=== PATIENT | female | born 1970 | race Caucasian/White ===

== ENCOUNTER → 2018-03-15 07:45 | Outpatient (CLI) | payer BC, SELFPAY ==
--- NOTE | 2018-03-15 07:47 | BI_ITS ---
MAMMOGRAPHY - BILATERAL SCREENING REASON FOR EXAM: Female, 47 years old. Routine annual screening examination. PERTINENT HISTORY: Grandmother with breast cancer. TECHNIQUE: Digital bilateral breast airam (3D mammographic acquisition) in the CC and MLO projections. 2-D mediolateral oblique (MLO) and craniocaudad (CC) views of both breasts were obtained. CAD: Full Field Digital Mammography with Computer Added Detection was performed. COMPARISON: Comparison is made with prior study dated March 11, 2017. FINDINGS: Breast Composition: There are scattered areas of fibroglandular density. There are no dominant masses or suspicious calcifications. Stable asymmetry of breast tissue where more breast tissue is seen in the retroareolar region of the left breast as compared to the right side. No other significant abnormalities are identified. There has been no significant change since the prior study. BI/SCREENING MAMM (CAD), BILAT IMPRESSION: Stable bilateral screening mammogram. Yearly follow-up mammogram recommended. (A) ASSESSMENT CATEGORY: BIRADS Category 2: Benign. A letter regarding these results will be sent to the patient by the facility within 30 days. Approximately 10% of breast cancers are not detected by mammography. A normal mammogram should not delay biopsy of a clinically suspicious abnormality. [id number] Electronically Signed: Raffaele Galloway MD at 14:33 EST Tel [phone], Service support ,
== END ==
PROVIDERS: Family Provider Internal Medicine; PCP Internal Medicine; Referring Provider Obstetrics & Gynecology; Visit Provider Obstetrics & Gynecology
DX: Z12.31 Encounter for screening mammogram for malignant neoplasm of breast (principal)
CPT/HCPCS: 77063; 77067

== ENCOUNTER 2018-04-14 03:57 | Emergency (ER) | payer OTHER, SELFPAY ==
[2018-04-14 03:57] VITALS: BP 128/78; PULSE 90; RESP 20; TEMP 36.6; O2SAT 97; BMI 33.7
[2018-04-14] MEDS: Ibuprofen 600 MG Tablet PO (04:18)
--- NOTE | 2018-04-14 04:39 | ED.DCSUM_ITS ---
- ER Visit Summary Date of Service: 04/14/18 Chief Complaint: Neck pain History of Present Illness: The patient is a 48 F increasing left-sided neck pain while at work. Works with repetitive motions with overhead movement. Pain worse with movement. No previous similar symptoms in the past. No weakness or paresthesias in the extremities. No history of gastric ulcers or kidney injury. Patient is on Valium for history of anxiety. Sent here for evaluation. Denies any direct falls or injuries. Physical Examination: General: Alert and oriented ?3, no acute distress HEENT: Normocephalic, atraumatic. Moist mucosa membranes Neck: supple, reproducible tenderness left para cervical and trapezius. No midline tenderness. Cardiovascular: Regular rate and rhythm, no murmurs Respiratory: Normal breath sounds, symmetric, no distress Abdomen: Soft, nontender, nondistended Extremities: Nontender, no edema, pulses intact ?4 Neuro: no focal neurological deficits. Strength upper extremity equal symmetric bilaterally. Test Results: [] Emergency Department Course and Treatment: Exam concerns for musculoskeletal strain the neck muscles. She works repetitive movements. Patient started on Motrin she will continue this at home. Restrictions were given for work. She will follow with [facility]. Treatment Plan: [] Disposition: Discharge Impression: 1. Neck muscle strain This note was generated with [employer] dictation software. It may contain incorrect words, spelling, and punctuation that were not noted in review of the chart prior to signing ED Disposition - Plan for ED Patient: Disposition: Home or Assisted Living Chief Complaint: Other, Pain/Inj Diagnosis: Neck muscle strain Instructions: ED Sprain Strain Neck Referrals: Lisa Ziegler DO [Primary Care Provider] - [facility] - 3-5 Days Additional Instructions: Continue Tylenol or Motrin every 6 hours. Follow with [facility].
[2018-04-14 04:44] VITALS: BP 115/60; PULSE 76; RESP 16; O2SAT 99
--- OUTSIDE RECORDS SUMMARY | 2018-05-30 23:14 | XMS RPT_ITS | Continuity of Care Document ---
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 Acct: [id number] Name: GALINA LATHAM Freda Rep #: [id number] : 1970 45 From: Jaime Albarran MD PCP: Lisa Ziegler DO Status: DEP ER ED Disposition - Plan for ED Patient: Disposition: Home or Assisted Era ng Chief Complaint: Cold Sx Instructions: ED URI, No Abx (Adult) Prescriptions: Benzonatate [Tessalon Perle] 200 mg PO TID PRN PRN #20 capsule PRN Reason: Cough What to do if you have Problems For any increased pain, shortness of breath, bleeding, nausea or vomiting, chest pain, or any unexpected problems, contact your doctor. Call [facility] ([phone]) or report to the closest Emergency Room. Call 911 if necessary. 08/17/15 2200 <Electronically signed by Jaime Albarran MD> Date Jaime Albarran MD Cosigner Signature (If Indicated): Date CC: Lisa Ziegler DO 17-Aug-2015 Emergency Department Summary Result: Comments: See Note; NOTES: [facility] Medical Records Department [address] [facility] [address] Emergency Department Summary MR#: [id number] Acct: [id number] Name: GALINA LATHAM Rep #: [id number] : 1970 45 From: Jaime Albarran MD PCP: Lisa Ziegler DO Status: [facility] ER DATE OF SERVICE: 07/28/2015 CHIEF COMPLAINT: Cough. MODE OF TRANSPORT: [employer] vehicle. HISTORY OF PRESENT ILLNESS: A 45-year-old female with cough for the last 2 days, gradual onset, intermittent. She has had a mild sore throat secondary to coughing, it is nonproductive. [facility] has had no fevers or chills. She has had some mild decreased energy. PHYSICAL EXAMINATION: VITAL SIGNS: Afebrile, vital signs reviewed. LUNGS: She has clear lungs. HEENT: Her throat exam is norm al. She has some very mild thrush on her tongue. Rest of her physical is normal. EMERGENCY DEPARTMENT COURSE: The patient has thrush is being treated already with clotrimazole. This is something kyaw t she has been dealing with. At this time, I think she has upper respiratory infection. She was given a prescription for Tessalon Perles. She will use Mucinex-D, liquid honey. Follow up as an outpati ent. I do not think she needs x-rays or imaging. She is resting comfortably. DISPOSITION: Home. IMPRESSION: Upper respiratory infection. Jaime Albarran MD T: NTS JOB: [id number] <Electronically signed by Jaime Albarran MD> Date Jaime Albarran MD Cosigner Signature (If Indicated): Date _ CC: Lisa Ziegler DO Date Dictated: 07/28/15626 Date Transcribed: 07/28/15626 Division Chair: Signed 12-Aug-2015 Inital Evaluation (1) - PT Result: Comments: See Note; NOTES: [facility] Physical Therapy [facility] [address] [place] [address]. [address] [place] [address] Fax [facility] INITIAL EVALUATION MR#: [id number] Acct: [id number] Name: GALINA LATHAM Rep #: [id number] : 1970 45 From: Getachew Dominguez DPT, OCS, CSCS Referring Dr.: Lisa Ziegler DO Status: REG R CR Insurance: [facility] Date: Patient's Visit Information GALINA LATHAM is a 45 year old F referred to Physical Therapy by Lisa Ziegler with a diagnosis of B ITB syndrome/knee pain and L tenn is elbow. Date of Evaluation: 08/09/15 Physical Therapist: Getachew Dominguez - Visit Plan Frequency: 3x /Week Duration: 4-6 Weeks - Subjective Subjective: Tendonitis in knees and L elbow. Knees hav e been hurting more than a month insidiously anteriorly and outside of upper legs. 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 Pushes pedal with R LE. Uses air hose with L hand, is L handed. Stands on a mat. More she moves, the less she hurts. Sleep is not interrupted. Activities are normal but pain is frustrating. Fairly sedentary. L elbow hurts lateral epicondyle, present on and off for years. Moves wrist before work and does quad stretch from doctor. Has not missed work lately due to this but worse with certain jobs. - Pain B ant knees Pain Intensity (Out of 10): 10 Pain Intensity Range: 0, 1 L elbow Pain Intensity (Out of 10): 0 Pain Intensity Range: 0 - Objective B UE AROM WFL, strength at 4/5, pain mildly with wrist ext L, definitely with stretching L wrist extensors. Reflexes bi and tri 2/3. C/S AROM limited symmetrically and not painful today. + passive lat epi tests, more negative actively. Pronation and supination are comfortable. LB AROM full and painfree today. Tender to palpation L lat epicondykle on elbow and into wrist extensor mm belly. Knees ten juan to palpation at patellar ligament mildly and over IT maximall B. Strength B knee flexion and extension is 4-/5, ips 4-/5, ankles 4+/5. Steps reciprocal without antalgia this morning. Good patellar mobility. Full knee and Hip AROM, ankles mildly tight in gastroc but WFL. IT band maximally tight B. Gait is I as are transfers without antalgia today(pt did easier job last night). - patellar grind test, - bounce home and disco test for meniscus, -vlagus and varus tests at knees, - anterior drawer. Full AROM B knees. HS 90-90 test at -15 degrees. reflexes patella and achilles 2/3 - Goals Goal 1:: abolish knee pain and tenderness, 75% diminished L elbow pain to 1/10 at worst. Goal Time Frame: 4-6 Weeks Goal 2:: Tolerate work day without increased pain Goal Time Frame: 4-6 Weeks Goal 3:: I management of knee and elbow symptoms. Goal Time Frame: 4-6 Weeks - Rehabilitation Potential Physical Therapy Diagnosis: L elbow lat epiconylitis, B ITB syndrome. Rehabilitation Potential: Fair - Anticipated Interventions Patient/Client Instruction: Educate patient on: Condition, Plan of Care For the Purpose of:: To decrease pain Therapeutic Exercise to Include: Strength training, Flexibil ty training For the Purpose of:: To decrease pain, To increase ROM, To improve nutrient delivery to tissue, To improve muscle performance and motor function Manual Therapy Techniques to Include: Soft tissue mobilization Comment: IT/quads/wirst ext L For the Purpose of:: To decrease pain, To increase oxygenation perfusion, To improve ability of physical actions for home/community/work/leisure, To i mprove gait and locomotor functions Iontophoresis (with Dexamethozone, with Acetic acid): Yes - dex to L elbow. TENS: Yes - knees Cryotherapy (ice pack, ice massage): Yes - knees and elbow For the P urpose of:: To decrease pain, To decrease swelling/inflammation, To improve nutrient delivery to tissue Thank you for the opportunity to evaluate your patient. For Medicare and Medicare HMO plan s, please review the plan of care and approve it. It will need to be FAXED BACK to us at [phone] for Medicare purposes. Please let me know if there are questions or concerns regarding this plan of care. Physician Signature: Date: <Electronically signed by Getachew Dominguez DPT, OCS, CSCS> 08/12/15 0648 CC: Dolly Ziegler DO EBG Signed For Medicare only, by signing this I certify the plan of care. Physicians Signature Date 01-Aug-2015 Spirometry (77957) Comments: mild restrictive Result: 25-Jul-2015 L/S Spine Min 4 Views Result: Comments: See Note; NOTES: [facility] Imaging Services [address] [place] [address] Verdana 4d L/S Spine Min 4 Views MR#: [id number] Acct: [id number] Name: GALINA LATHAM Rep #: [id number] : 1970 F 45 From: Raffaele Galloway MD PCP: Lisa Ziegler DO Status: REG CLI Study: L/S Spine Min 4 Views Date of Exam: 07/25/15 Exam# [id number] Ordering Dr: Lisa Diana DO STUDY: X-RAY - LUMBAR SPINE REASON FOR EXAM: Female, 45 years old. Chronic low back pain. TECHNIQUE: 5 view(s) of the lumbar spine were obtained including oblique views. NIMA RISON: None FINDINGS: Normal lumbar lordosis. There is no substantial scoliosis. There is a normal alignment of the vertebrae. Normal vertebral bodies and endp lates. Normal disc space heights. There is partial lumbarization of the S1 vertebrae. There is evidence of disc space narrowing at the S1-S2 level. There is faint atherosclerotic calcification of th e abdominal aorta without a demonstrated aneurysm. Essure device is seen within the pelvis. IMPRESSION: Partial lumbarization of the S1 vertebrae with disc space narrowing. Electronically Signed: Raffaele Galloway MD at 8:57 EDT Tel [phone], Service support [phone], RAD/L/S Spine Min 4 Views IMP RESSION: Partial lumbarization of the S1 vertebrae with disc space narrowing. Electronically Signed: Raffaele Galloway MD at 8:57 EDT Tel [phone], Service support [phone], CC: Lisa Ziegler DO Division Chair: Signed 08-Nov-2014 Brain/Head W/WO Contrast Result: Comments: See Note; NOTES: [facility] Imaging Services [address] [place] [id number] CAT Scan Report MR#: [id number] Acct: [id number] Name: NOAGALINA Rep #: [id number] : 1970 F 44 From: Raffaele Galloway MD PCP: Lisa Ziegler DO Status: REG CLI Study: Brain/Head W/WO Contrast Date of Exam: 11/08/14 Exam# [id number] Ordering Dr: Lisa Ziegler DO STUDY: CT BRAIN WITH AND WITHOUT CONTRAST REASON FOR EXAM: Female, 44 years old. 3 day history of headaches. RADIATION DOSAGE (If Supplied By Facility): CTDIvol = ( 58.4 ) mGy, DLP = ( 2088.25 ) mG ycm TECHNIQUE: Transaxial CT imaging of the brain was performed pre and post contrast administration. The examination was performed with intravenous administration of 100CC ml of Isovue 300 contrast material. COMPARISON: None. FINDINGS: Normal soft tissue structures. Normal calvarium. Normal size ventricles and extra-axial spaces for the patient's age. Normal white matter tracts of the cerebral hemispheres. Normal basal ganglia and thalami. Normal brainstem. Normal cerebellum. There is no intracranial hemorrhage. There are no findings of an acute ischemic infarction. Normal visualized paranasal sinuses. IMPRESSION: Normal unenhanced and enhanced CT scan of the brain. Electronically Signed: Raffaele goldsmith MD at 14:07 EDT Tel [phone], Service support [phone], CC: Lisa Ziegler DO Division Chair: Signed 26-Jun-2013 Cerv Spine 4 or 5 Views Result: Comments: See Note; NOTES: [facility] Imaging Services [address] [place] [address] Radiology Report MR#: [id number] Acct: [id number] Name: GALINA LATHAM Rep #: [id number] : 1970 F 43 From: Ramírez Hunter DO PCP: Status: REG CLI Study: Cerv Spine 4 or 5 Views Date of Exam: 06/26/13 Exam# [id number] Ordering Dr: Lisa Ziegler DO STUDY: X-RAY - CERVICAL S PINE REASON FOR EXAM: Female, 43 years old. Headache TECHNIQUE: 6 views of the cervical spine were obtained. COMPARISON: None FINDINGS: Normal anterior atla ntoaxial articulation. Normal odontoid process. Normal cervical lordosis. Mild disc space narrowing with endplate spondylosis is demonstrated at C6-7. Uncovertebral joint spurring at this level is a lso noted. Normal disc space heights. There is no significant foraminal stenosis. The soft tissue structures are unremarkable. IMPRESSION: Disc space narrowing with endplate spondylosis is noted predominantly at C6-7. No acute fracture or significant osseous malalignment demonstrated. Electronically Signed: Lei Gaviria D.O. CC: Lisa Ziegler DO Division Chair: Signed Immunization Name Dates Details Influenza (3 years and up) on: 2012 Tdap (7 years and up) on: 26-Dec-2008 Comments: Lot #[id number]-right deltoidDose0.5mlgiven by Kimber Muir LPN Family History Unknown Family Member Name Dates Details Family Members In General Comments: ETOH, Cancer, DM, Drug abuse, Anxiety, depression, HBP, high cholesterol, Suicide, Ulcer Status: Active Father Comments: Suicide Status: Active Social History Name Dates Details Alcohol Use Comments: Occasional alcohol use Status: Active Caffeine Use Comments: 5-6 QD Status: Active Exercise History Comments: Light Status: Active Living Situation Comments: Lives with parents Status: Active Most Recent Primary Occupation Comments: [employer] Status: Active No Drug Use Status: Active Tobacco Use Comments: Smokes 1.5 packs of cigarettes per day 09/09/11 Status: Active Vital Signs Date Test Result Details 01-Feb-20188:44 Temperature 97.4 f Comments: Method: Axillary Pulse 89 /min Comments: Pattern: Regular Respiration Rate 17 /min Comments: Pattern: Unlabored O2 SAT 98 % Comments: Room air BP Systolic 118 mm[Hg] Comments: Patient Position: Sitting; Cuff Location: Left Arm; Cuff Size: Standard BP Diastolic 80 mm[Hg] Comments: Patient Position: Sitting; Cuff Location: Left Arm; Cuff Size: Standard Weight 202.5 lb Height 66 in Body Mass Index Calculated 32.68 kg/m2 Body Surface Area Calculated 2.01 m2 :27 Temperature 97 f Comments: Method: Temporal Pulse 98 /min Comments: Pattern: Regular Respiration Rate 16 /min Comments: Pattern: Unlabored O2 SAT 97 % Comments: Room air BP Systolic 128 mm[Hg] Comments: Patient Position: Sitting; Cuff Location: Left Arm; Cuff Size: Standard BP Diastolic 86 mm[Hg] Comments: Patient Position: Sitting; Cuff Location: Left Arm; Cuff Size: Standard Weight 207 lb Height 66 in Body Mass Index Calculated 33.41 kg/m2 Body Surface Area Calculated 2.03 m2 [id number] Comments: sitting 110/80, 83standing 120/85, 75 Temperature 98.1 f Comments: Method: Axillary Pulse 91 /min Comments: Pattern: Regular Respiration Rate 16 /min Comments: Pattern: Unlabored O2 SAT 97 % Comments: Room air BP Systolic 122 mm[Hg] Comments: Patient Position: Sitting; Cuff Location: Left Arm; Cuff Size: Standard BP Diastolic 82 mm[Hg] Comments: Patient Position: Sitting; Cuff Location: Left Arm; Cuff Size: Standard Weight 207 lb Height 66 in Body Mass Index Calculated 33.41 kg/m2 Body Surface Area Calculated 2.03 m2 :10 Temperature 97.7 f Comments: Method: Temporal Pulse 78 /min Comments: Pattern: Regular Respiration Rate 16 /min Comments: Pattern: Unlabored BP Systolic 124 mm[Hg] Comments: Patient Position: Sitting; Cuff Location: Left Arm; Cuff Size: Standard BP Diastolic 76 mm[Hg] Comments: Patient Position: Sitting; Cuff Location: Left Arm; Cuff Size: Standard Weight 196.125 lb Height 66 in Body Mass Index Calculated 31.66 kg/m2 Body Surface Area Calculated 1.98 m2 :12 Temperature 97.8 f Comments: Method: Temporal Pulse 84 /min Comments: Pattern: Regular Respiration Rate 18 /min Comments: Pattern: Unlabored O2 SAT 95 % Comments: Room air BP Systolic 122 mm[Hg] Comments: Patient Position: Sitting; Cuff Location: Left Arm; Cuff Size: Large BP Diastolic 70 mm[Hg] Comments: Patient Position: Sitting; Cuff Location: Left Arm; Cuff Size: Large Weight 196.125 lb Height 66 in Body Mass Index Calculated 31.66 kg/m2 Body Surface Area Calculated 1.98 m2 :27 Temperature 98.1 f Comments: Method: Temporal Pulse 96 /min Comments: Pattern: Regular Respiration Rate 18 /min Comments: Pattern: Unlabored O2 SAT 97 % Comments: Room air BP Systolic 110 mm[Hg] Comments: Patient Position: Sitting; Cuff Location: Left Arm; Cuff Size: Large BP Diastolic 78 mm[Hg] Comments: Patient Position: Sitting; Cuff Location: Left Arm; Cuff Size: Large Weight 188.375 lb Height 66 in Body Mass Index Calculated 30.4 kg/m2 Body Surface Area Calculated 1.95 m2 :24 Pulse 83 /min Comments: Pattern: Regular Respiration Rate 18 /min Comments: Pattern: Unlabored O2 SAT 99 % Comments: Room air BP Systolic 122 mm[Hg] Comments: Patient Position: Sitting; Cuff Location: Left Arm; Cuff Size: Large BP Diastolic 80 mm[Hg] Comments: Patient Position: Sitting; Cuff Location: Left Arm; Cuff Size: Large Weight 188.375 lb Height 66 in Body Mass Index Calculated 30.4 kg/m2 Body Surface Area Calculated 1.95 m2 :58 Pulse 78 /min Comments: Pattern: Regular Respiration Rate 18 /min Comments: Pattern: Unlabored O2 SAT 97 % Comments: Room air BP Systolic 120 mm[Hg] Comments: Patient Position: Sitting; Cuff Location: Left Arm; Cuff Size: Large BP Diastolic 78 mm[Hg] Comments: Patient Position: Sitting; Cuff Location: Left Arm; Cuff Size: Large Weight 188.375 lb Height 66 in Body Mass Index Calculated 30.4 kg/m2 Body Surface Area Calculated 1.95 m2 :17 Temperature 98.7 f Comments: Method: Temporal Pulse 72 /min Comments: Pattern: Regular Respiration Rate 16 /min Comments: Pattern: Unlabored O2 SAT 98 % Comments: Room air BP Systolic 140 mm[Hg] Comments: Patient Position: Sitting; Cuff Location: Left Arm; Cuff Size: Standard BP Diastolic 82 mm[Hg] Comments: Patient Position: Sitting; Cuff Location: Left Arm; Cuff Size: Standard Weight 188.375 lb Height 66 in Body Mass Index Calculated 30.4 kg/m2 Body Surface Area Calculated 1.95 m2 :06 Pulse 82 /min Comments: Pattern: Regular Respiration Rate 18 /min Comments: Pattern: Unlabored O2 SAT 97 % Comments: Room air BP Systolic 118 mm[Hg] Comments: Patient Position: Sitting; Cuff Location: Left Arm; Cuff Size: Large BP Diastolic 62 mm[Hg] Comments: Patient Position: Sitting; Cuff Location: Left Arm; Cuff Size: Large Weight 188.375 lb Height 66 in Body Mass Index Calculated 30.4 kg/m2 Body Surface Area Calculated 1.95 m2 :29 Temperature 97.3 f Comments: Method: Temporal Pulse 72 /min Comments: Pattern: Regular Respiration Rate 16 /min Comments: Pattern: Unlabored O2 SAT 98 % Comments: Room air BP Systolic 120 mm[Hg] Comments: Patient Position: Sitting; Cuff Location: Left Arm; Cuff Size: Standard BP Diastolic 80 mm[Hg] Comments: Patient Position: Sitting; Cuff Location: Left Arm; Cuff Size: Standard Weight 185 lb Height 66 in Body Mass Index Calculated 29.86 kg/m2 Body Surface Area Calculated 1.94 m2 :12 Temperature 97.5 f Comments: Method: Temporal Pulse 93 /min Comments: Pattern: Regular Respiration Rate 16 /min Comments: Pattern: Unlabored O2 SAT 99 % Comments: Room air BP Systolic 122 mm[Hg] Comments: Patient Position: Sitting; Cuff Location: Left Arm; Cuff Size: Standard BP Diastolic 76 mm[Hg] Comments: Patient Position: Sitting; Cuff Location: Left Arm; Cuff Size: Standard Weight 185.5 lb Height 66 in Body Mass Index Calculated 29.94 kg/m2 Body Surface Area Calculated 1.94 m2 :17 Temperature 98.1 f Pulse 102 /min Comments: Pattern: Regular Respiration Rate 16 /min Comments: Pattern: Unlabored O2 SAT 94 % Comments: Room air BP Systolic 122 mm[Hg] Comments: Patient Position: Sitting; Cuff Location: Left Arm; Cuff Size: Standard BP Diastolic 80 mm[Hg] Comments: Patient Position: Sitting; Cuff Location: Left Arm; Cuff Size: Standard Weight 184.5 lb Height 66 in Body Mass Index Calculated 29.78 kg/m2 Body Surface Area Calculated 1.93 m2 :03 Temperature 97.7 f Pulse 75 /min Comments: Pattern: Regular Respiration Rate 18 /min Comments: Pattern: Unlabored O2 SAT 99 % Comments: Room air BP Systolic 132 mm[Hg] Comments: Patient Position: Sitting; Cuff Location: Left Arm; Cuff Size: Standard BP Diastolic 84 mm[Hg] Comments: Patient Position: Sitting; Cuff Location: Left Arm; Cuff Size: Standard Weight 184.5 lb Height 66 in Body Mass Index Calculated 29.78 kg/m2 Body Surface Area Calculated 1.93 m2 :06 Pulse 90 /min Comments: Pattern: Regular Respiration Rate 18 /min Comments: Pattern: Unlabored O2 SAT 99 % Comments: Room air BP Systolic 122 mm[Hg] Comments: Patient Position: Sitting; Cuff Location: Left Arm; Cuff Size: Large BP Diastolic 82 mm[Hg] Comments: Patient Position: Sitting; Cuff Location: Left Arm; Cuff Size: Large Weight 184.5 lb Height 66 in Body Mass Index Calculated 29.78 kg/m2 Body Surface Area Calculated 1.93 m2 :14 Pulse 74 /min Comments: Pattern: Regular Respiration Rate 18 /min Comments: Pattern: Unlabored O2 SAT 98 % Comments: Room air BP Systolic 128 mm[Hg] Comments: Patient Position: Sitting; Cuff Location: Left Arm; Cuff Size: Large BP Diastolic 78 mm[Hg] Comments: Patient Position: Sitting; Cuff Location: Left Arm; Cuff Size: Large Weight 192 lb Height 66 in Body Mass Index Calculated 30.99 kg/m2 Body Surface Area Calculated 1.97 m2 :33 Temperature 97.4 f Comments: Method: Temporal Pulse 85 /min Comments: Pattern: Regular Respiration Rate 18 /min Comments: Pattern: Unlabored O2 SAT 98 % Comments: Room air BP Systolic 100 mm[Hg] Comments: Patient Position: Sitting; Cuff Location: Left Arm; Cuff Size: Standard BP Diastolic 58 mm[Hg] Comments: Patient Position: Sitting; Cuff Location: Left Arm; Cuff Size: Standard Weight 193.5 lb Height 66 in Body Mass Index Calculated 31.23 kg/m2 Body Surface Area Calculated 1.97 m2 :43 Temperature 100.5 f Comments: Method: Oral Pulse 87 /min Comments: Pattern: Regular Respiration Rate 18 /min Comments: Pattern: Unlabored O2 SAT 98 % Comments: Room air BP Systolic 128 mm[Hg] Comments: Patient Position: Sitting; Cuff Location: Left Arm; Cuff Size: Large BP Diastolic 80 mm[Hg] Comments: Patient Position: Sitting; Cuff Location: Left Arm; Cuff Size: Large Weight 193.5 lb Height 66 in Body Mass Index Calculated 31.23 kg/m2 Body Surface Area Calculated 1.97 m2 :01 Pulse 86 /min Comments: Pattern: Regular Respiration Rate 18 /min Comments: Pattern: Unlabored O2 SAT 98 % Comments: Room air BP Systolic 122 mm[Hg] Comments: Patient Position: Sitting; Cuff Location: Left Arm; Cuff Size: Large BP Diastolic 80 mm[Hg] Comments: Patient Position: Sitting; Cuff Location: Left Arm; Cuff Size: Large Weight 193.5 lb Height 66 in Body Mass Index Calculated 31.23 kg/m2 Body Surface Area Calculated 1.97 m2 :19 BP Systolic 108 mm[Hg] Comments: Patient Position: Sitting; Cuff Location: Left Arm; Cuff Size: Standard BP Diastolic 64 mm[Hg] Comments: Patient Position: Sitting; Cuff Location: Left Arm; Cuff Size: Standard Weight 191.125 lb Height 66 in Body Mass Index Calculated 30.85 kg/m2 Body Surface Area Calculated 1.96 m2 :04 Temperature 98.4 f Comments: Method: Oral Pulse 76 /min Comments: Pattern: Regular Respiration Rate 15 /min O2 SAT 97 % Comments: Room air BP Systolic 128 mm[Hg] Comments: Patient Position: Sitting; Cuff Location: Left Arm; Cuff Size: Standard BP Diastolic 80 mm[Hg] Comments: Patient Position: Sitting; Cuff Location: Left Arm; Cuff Size: Standard Weight 191.125 lb Height 66 in Body Mass Index Calculated 30.85 kg/m2 Body Surface Area Calculated 1.96 m2 :17 Temperature 98.6 f Pulse 92 /min Comments: Pattern: Regular Respiration Rate 16 /min Comments: Pattern: Unlabored O2 SAT 97 % Comments: Room air BP Systolic 132 mm[Hg] Comments: Patient Position: Sitting; Cuff Location: Left Arm; Cuff Size: Standard BP Diastolic 76 mm[Hg] Comments: Patient Position: Sitting; Cuff Location: Left Arm; Cuff Size: Standard Weight 191.125 lb Height 66 in Body Mass Index Calculated 30.85 kg/m2 Body Surface Area Calculated 1.96 m2 :02 Temperature 98.6 f Comments: Method: Oral Pulse 82 /min Comments: Pattern: Regular Respiration Rate 16 /min O2 SAT 98 % Comments: Room air BP Systolic 122 mm[Hg] Comments: Patient Position: Sitting; Cuff Location: Left Arm; Cuff Size: Standard BP Diastolic 72 mm[Hg] Comments: Patient Position: Sitting; Cuff Location: Left Arm; Cuff Size: Standard Weight 192 lb Height 66 in Body Mass Index Calculated 30.99 kg/m2 Body Surface Area Calculated 1.97 m2 :58 Temperature 97.6 f Comments: Method: Temporal Pulse 107 /min Comments: Pattern: Regular Respiration Rate 16 /min Comments: Pattern: Unlabored O2 SAT 97 % Comments: Room air BP Systolic 142 mm[Hg] Comments: Patient Position: Sitting; Cuff Location: Left Arm; Cuff Size: Standard BP Diastolic 70 mm[Hg] Comments: Patient Position: Sitting; Cuff Location: Left Arm; Cuff Size: Standard Weight 191.375 lb Height 66 in Body Mass Index Calculated 30.89 kg/m2 Body Surface Area Calculated 1.96 m2 :30 Pulse 86 /min Comments: Pattern: Regular Respiration Rate 18 /min Comments: Pattern: Unlabored O2 SAT 98 % Comments: Room air BP Systolic 138 mm[Hg] Comments: Patient Position: Sitting; Cuff Location: Left Arm; Cuff Size: Large BP Diastolic 82 mm[Hg] Comments: Patient Position: Sitting; Cuff Location: Left Arm; Cuff Size: Large Weight 191.375 lb Height 66 in Body Mass Index Calculated 30.89 kg/m2 Body Surface Area Calculated 1.96 m2 :19 Temperature 98.5 f Comments: Method: Tympanic Pulse 88 /min Comments: Pattern: Regular Respiration Rate 18 /min Comments: Pattern: Unlabored O2 SAT 98 % Comments: Room air BP Systolic 140 mm[Hg] Comments: Patient Position: Sitting; Cuff Location: Left Arm; Cuff Size: Standard BP Diastolic 76 mm[Hg] Comments: Patient Position: Sitting; Cuff Location: Left Arm; Cuff Size: Standard Weight 193.25 lb Height 66 in Body Mass Index Calculated 31.19 kg/m2 Body Surface Area Calculated 1.97 m2 :09 Pulse 92 /min Comments: Pattern: Regular Respiration Rate 20 /min Comments: Pattern: Unlabored O2 SAT 98 % Comments: Room air BP Systolic 110 mm[Hg] Comments: Patient Position: Sitting; Cuff Location: Left Arm; Cuff Size: Standard BP Diastolic 78 mm[Hg] Comments: Patient Position: Sitting; Cuff Location: Left Arm; Cuff Size: Standard Weight 185.25 lb Height 66 in Body Mass Index Calculated 29.9 kg/m2 Body Surface Area Calculated 1.94 m2 :32 Pulse 80 /min Comments: Pattern: Regular Respiration Rate 18 /min Comments: Pattern: Unlabored O2 SAT 98 % Comments: Room air BP Systolic 110 mm[Hg] Comments: Patient Position: Sitting; Cuff Location: Left Arm; Cuff Size: Large BP Diastolic 62 mm[Hg] Comments: Patient Position: Sitting; Cuff Location: Left Arm; Cuff Size: Large Weight 185.5 lb Height 66 in Body Mass Index Calculated 29.94 kg/m2 Body Surface Area Calculated 1.94 m2 :13 Temperature 96.7 f Comments: Method: Oral Pulse 96 /min Comments: Pattern: Regular Respiration Rate 18 /min O2 SAT 98 % Comments: Room air BP Systolic 120 mm[Hg] Comments: Patient Position: Sitting; Cuff Location: Left Arm; Cuff Size: Standard BP Diastolic 72 mm[Hg] Comments: Patient Position: Sitting; Cuff Location: Left Arm; Cuff Size: Standard Weight 186.5625 lb Height 66 in Body Mass Index Calculated 30.11 kg/m2 Body Surface Area Calculated 1.94 m2 :42 Pulse 82 /min Comments: Pattern: Regular Respiration Rate 18 /min Comments: Pattern: Unlabored O2 SAT 98 % Comments: Room air BP Systolic 120 mm[Hg] Comments: Patient Position: Sitting; Cuff Location: Left Arm; Cuff Size: Standard BP Diastolic 78 mm[Hg] Comments: Patient Position: Sitting; Cuff Location: Left Arm; Cuff Size: Standard Weight 185.5625 lb Height 66 in Body Mass Index Calculated 29.95 kg/m2 Body Surface Area Calculated 1.94 m2 :28 Pulse 88 /min Comments: Pattern: Regular Respiration Rate 18 /min Comments: Pattern: Unlabored O2 SAT 98 % Comments: Room air BP Systolic 140 mm[Hg] Comments: Patient Position: Sitting; Cuff Location: Left Arm; Cuff Size: Large BP Diastolic 84 mm[Hg] Comments: Patient Position: Sitting; Cuff Location: Left Arm; Cuff Size: Large Weight 198.3125 lb Height 66 in Body Mass Index Calculated 32.01 kg/m2 Body Surface Area Calculated 1.99 m2 :12 Temperature 97.6 f Comments: Method: Oral Pulse 71 /min Comments: Pattern: Regular Respiration Rate 18 /min Comments: Pattern: Unlabored O2 SAT 98 % Comments: Room air BP Systolic 120 mm[Hg] Comments: Patient Position: Sitting; Cuff Location: Left Arm; Cuff Size: Large BP Diastolic 62 mm[Hg] Comments: Patient Position: Sitting; Cuff Location: Left Arm; Cuff Size: Large Weight 198.3125 lb Height 66 in Body Mass Index Calculated 32.01 kg/m2 Body Surface Area Calculated 1.99 m2 :01 Pulse 73 /min Comments: Pattern: Regular Respiration Rate 18 /min Comments: Pattern: Unlabored O2 SAT 97 % Comments: Room air BP Systolic 110 mm[Hg] Comments: Patient Position: Sitting; Cuff Location: Left Arm; Cuff Size: Large BP Diastolic 70 mm[Hg] Comments: Patient Position: Sitting; Cuff Location: Left Arm; Cuff Size: Large Weight 198.3125 lb Height 66 in Body Mass Index Calculated 32.01 kg/m2 Body Surface Area Calculated 1.99 m2 :09 Temperature 98.4 f Comments: Method: Oral Pulse 79 /min Comments: Pattern: Regular Respiration Rate 18 /min Comments: Pattern: Unlabored O2 SAT 98 % Comments: Room air BP Systolic 124 mm[Hg] Comments: Patient Position: Sitting; Cuff Location: Left Arm; Cuff Size: Large BP Diastolic 80 mm[Hg] Comments: Patient Position: Sitting; Cuff Location: Left Arm; Cuff Size: Large Weight 198.3125 lb Height 66 in Body Mass Index Calculated 32.01 kg/m2 Body Surface Area Calculated 1.99 m2 :12 Temperature 98.8 f Comments: Method: Oral Pulse 88 /min Comments: Pattern: Regular Respiration Rate 17 /min O2 SAT 97 % Comments: Room air BP Systolic 122 mm[Hg] Comments: Patient Position: Sitting; Cuff Location: Left Arm; Cuff Size: Standard BP Diastolic 78 mm[Hg] Comments: Patient Position: Sitting; Cuff Location: Left Arm; Cuff Size: Standard Weight 198.3125 lb Height 66 in Body Mass Index Calculated 32.01 kg/m2 Body Surface Area Calculated 1.99 m2 :34 Pulse 85 /min Comments: Pattern: Regular Respiration Rate 16 /min Comments: Pattern: Unlabored O2 SAT 98 % Comments: Room air BP Systolic 120 mm[Hg] Comments: Patient Position: Sitting; Cuff Location: Left Arm; Cuff Size: Standard BP Diastolic 70 mm[Hg] Comments: Patient Position: Sitting; Cuff Location: Left Arm; Cuff Size: Standard Weight 198.3125 lb Height 66 in Body Mass Index Calculated 32.01 kg/m2 Body Surface Area Calculated 1.99 m2 :17 Temperature 98.3 f Comments: Method: Oral Pulse 89 /min Comments: Pattern: Regular Respiration Rate 20 /min Comments: Pattern: Unlabored O2 SAT 98 % Comments: Room air BP Systolic 120 mm[Hg] Comments: Patient Position: Sitting; Cuff Location: Left Arm; Cuff Size: Large BP Diastolic 80 mm[Hg] Comments: Patient Position: Sitting; Cuff Location: Left Arm; Cuff Size: Large Weight 198.3125 lb Height 66 in Body Mass Index Calculated 32.01 kg/m2 Body Surface Area Calculated 1.99 m2 :35 Temperature 98.2 f Comments: Method: Oral Pulse 90 /min Comments: Pattern: Regular Respiration Rate 20 /min BP Systolic 136 mm[Hg] Comments: Patient Position: Sitting; Cuff Location: Left Arm; Cuff Size: Standard BP Diastolic 82 mm[Hg] Comments: Patient Position: Sitting; Cuff Location: Left Arm; Cuff Size: Standard Weight 197 lb Height 66 in Body Mass Index Calculated 31.8 kg/m2 Body Surface Area Calculated 1.99 m2 :07 Temperature 98.6 f Comments: Method: Oral Pulse 90 /min Comments: Pattern: Regular Respiration Rate 20 /min O2 SAT 98 % Comments: Room air BP Systolic 138 mm[Hg] Comments: Patient Position: Sitting; Cuff Location: Left Arm; Cuff Size: Standard BP Diastolic 80 mm[Hg] Comments: Patient Position: Sitting; Cuff Location: Left Arm; Cuff Size: Standard Weight 197 lb Height 66 in Body Mass Index Calculated 31.8 kg/m2 Body Surface Area Calculated 1.99 m2 :51 Temperature 98.8 f Comments: Method: Temporal Pulse 82 /min Comments: Pattern: Regular Respiration Rate 16 /min Comments: Pattern: Unlabored O2 SAT 98 % Comments: Room air BP Systolic 128 mm[Hg] Comments: Patient Position: Sitting; Cuff Location: Left Arm; Cuff Size: Standard BP Diastolic 76 mm[Hg] Comments: Patient Position: Sitting; Cuff Location: Left Arm; Cuff Size: Standard Weight 197 lb Height 66 in Body Mass Index Calculated 31.8 kg/m2 Body Surface Area Calculated 1.99 m2 :11 Temperature 98.4 f Comments: Method: Oral Pulse 100 /min Comments: Pattern: Regular Respiration Rate 62 /min Comments: Pattern: Unlabored O2 SAT 98 % Comments: Room air BP Systolic 118 mm[Hg] Comments: Patient Position: Sitting; Cuff Location: Left Arm; Cuff Size: Standard BP Diastolic 74 mm[Hg] Comments: Patient Position: Sitting; Cuff Location: Left Arm; Cuff Size: Standard Weight 204.5625 lb Height 66 in Body Mass Index Calculated 33.02 kg/m2 Body Surface Area Calculated 2.02 m2 :10 Temperature 98.1 f Comments: Method: Oral Pulse 60 /min Comments: Pattern: Regular Respiration Rate 18 /min Comments: Pattern: Unlabored BP Systolic 110 mm[Hg] Comments: Patient Position: Sitting; Cuff Location: Left Arm; Cuff Size: Large BP Diastolic 62 mm[Hg] Comments: Patient Position: Sitting; Cuff Location: Left Arm; Cuff Size: Large Weight 204.5625 lb Height 66 in Body Mass Index Calculated 33.02 kg/m2 Body Surface Area Calculated 2.02 m2 :07 Temperature 98.6 f Comments: Method: Oral Pulse 80 /min Comments: Pattern: Regular Respiration Rate 20 /min Comments: Pattern: Unlabored O2 SAT 98 % Comments: Room air BP Systolic 138 mm[Hg] Comments: Patient Position: Sitting; Cuff Location: Left Arm; Cuff Size: Standard BP Diastolic 78 mm[Hg] Comments: Patient Position: Sitting; Cuff Location: Left Arm; Cuff Size: Standard Weight 203.0625 lb Height 66 in Body Mass Index Calculated 32.77 kg/m2 Body Surface Area Calculated 2.01 m2 :05 Temperature 97.9 f Comments: Method: Oral Pulse 72 /min Comments: Pattern: Regular Respiration Rate 20 /min Comments: Pattern: Unlabored BP Systolic 122 mm[Hg] Comments: Patient Position: Sitting; Cuff Location: Left Arm; Cuff Size: Large BP Diastolic 70 mm[Hg] Comments: Patient Position: Sitting; Cuff Location: Left Arm; Cuff Size: Large Weight 203.0625 lb Height 66 in Body Mass Index Calculated 32.77 kg/m2 Body Surface Area Calculated 2.01 m2 :20 Temperature 97 f Comments: Method: Oral Pulse 64 /min Comments: Pattern: Regular Respiration Rate 20 /min Comments: Pattern: Unlabored BP Systolic 118 mm[Hg] Comments: Patient Position: Sitting; Cuff Location: Left Arm; Cuff Size: Large BP Diastolic 68 mm[Hg] Comments: Patient Position: Sitting; Cuff Location: Left Arm; Cuff Size: Large Weight 197.5625 lb Height 66 in Body Mass Index Calculated 31.89 kg/m2 Body Surface Area Calculated 1.99 m2 :05 Temperature 98.8 f Comments: Method: Oral Pulse 80 /min Comments: Pattern: Regular Respiration Rate 20 /min Comments: Pattern: Unlabored BP Systolic 124 mm[Hg] Comments: Patient Position: Sitting; Cuff Location: Left Arm; Cuff Size: Large BP Diastolic 78 mm[Hg] Comments: Patient Position: Sitting; Cuff Location: Left Arm; Cuff Size: Large Weight 196.5625 lb Height 66 in Body Mass Index Calculated 31.73 kg/m2 Body Surface Area Calculated 1.99 m2 :57 Temperature 98.6 f Comments: Method: Oral Pulse 96 /min Comments: Pattern: Regular Respiration Rate 18 /min Comments: Pattern: Unlabored O2 SAT 99 % Comments: Room air BP Systolic 128 mm[Hg] Comments: Patient Position: Sitting; Cuff Location: Left Arm; Cuff Size: Standard BP Diastolic 80 mm[Hg] Comments: Patient Position: Sitting; Cuff Location: Left Arm; Cuff Size: Standard Weight 200 lb Height 66 in Body Mass Index Calculated 32.28 kg/m2 Body Surface Area Calculated 2 m2 :04 Temperature 97.2 f Pulse 64 /min Comments: Pattern: Regular Respiration Rate 2064 /min Comments: Pattern: Unlabored BP Systolic 124 mm[Hg] Comments: Patient Position: Sitting; Cuff Location: Left Arm; Cuff Size: Large BP Diastolic 82 mm[Hg] Comments: Patient Position: Sitting; Cuff Location: Left Arm; Cuff Size: Large Weight 200 lb Height 66 in Body Mass Index Calculated 32.28 kg/m2 Body Surface Area Calculated 2 m2 :20 Temperature 99 f Comments: Method: Oral Pulse 96 /min Comments: Pattern: Regular Respiration Rate 18 /min Comments: Pattern: Unlabored O2 SAT 98 % Comments: Room air BP Systolic 116 mm[Hg] Comments: Patient Position: Sitting; Cuff Location: Left Arm; Cuff Size: Standard BP Diastolic 62 mm[Hg] Comments: Patient Position: Sitting; Cuff Location: Left Arm; Cuff Size: Standard Weight 193 lb Height 66 in Body Mass Index Calculated 31.15 kg/m2 Body Surface Area Calculated 1.97 m2 :47 Temperature 97.6 f Comments: Method: Oral Pulse 68 /min Comments: Pattern: Regular Respiration Rate 20 /min Comments: Pattern: Unlabored BP Systolic 118 mm[Hg] Comments: Patient Position: Sitting; Cuff Location: Left Arm; Cuff Size: Large BP Diastolic 68 mm[Hg] Comments: Patient Position: Sitting; Cuff Location: Left Arm; Cuff Size: Large Weight 186.3125 lb Height 66 in Body Mass Index Calculated 30.07 kg/m2 Body Surface Area Calculated 1.94 m2 :44 Pulse 68 /min Comments: Pattern: Regular Respiration Rate 20 /min Comments: Pattern: Unlabored BP Systolic 122 mm[Hg] Comments: Patient Position: Sitting; Cuff Location: Left Arm; Cuff Size: Large BP Diastolic 68 mm[Hg] Comments: Patient Position: Sitting; Cuff Location: Left Arm; Cuff Size: Large Weight 178.5625 lb Height 66 in Body Mass Index Calculated 28.82 kg/m2 Body Surface Area Calculated 1.91 m2 :10 Pulse 68 /min Comments: Pattern: Regular Respiration Rate 20 /min Comments: Pattern: Unlabored BP Systolic 122 mm[Hg] Comments: Patient Position: Sitting; Cuff Location: Left Arm; Cuff Size: Large BP Diastolic 82 mm[Hg] Comments: Patient Position: Sitting; Cuff Location: Left Arm; Cuff Size: Large Weight 176.9 lb Height 66 in Body Mass Index Calculated 28.55 kg/m2 Body Surface Area Calculated 1.9 m2 :26 Temperature 98.1 f Comments: Method: Oral Pulse 76 /min Comments: Pattern: Regular Respiration Rate 16 /min Comments: Pattern: Unlabored BP Systolic 120 mm[Hg] Comments: Patient Position: Sitting; Cuff Location: Left Arm; Cuff Size: Standard BP Diastolic 80 mm[Hg] Comments: Patient Position: Sitting; Cuff Location: Left Arm; Cuff Size: Standard Weight 176.9 lb Height 66 in Body Mass Index Calculated 28.55 kg/m2 Body Surface Area Calculated 1.9 m2 :45 Temperature 97.2 f Comments: Method: Oral Pulse 82 /min Comments: Pattern: Regular Respiration Rate 18 /min Comments: Pattern: Unlabored BP Systolic 118 mm[Hg] Comments: Patient Position: Sitting; Cuff Location: Left Arm; Cuff Size: Standard BP Diastolic 74 mm[Hg] Comments: Patient Position: Sitting; Cuff Location: Left Arm; Cuff Size: Standard Weight 179.7 lb :59 Temperature 98.7 f Comments: Method: Oral Pulse 78 /min Comments: Pattern: Regular Respiration Rate 18 /min Comments: Pattern: Unlabored BP Systolic 122 mm[Hg] Comments: Patient Position: Sitting; Cuff Location: Left Arm; Cuff Size: Standard BP Diastolic 74 mm[Hg] Comments: Patient Position: Sitting; Cuff Location: Left Arm; Cuff Size: Standard Weight 179.7 lb :26 Temperature 98.6 f Comments: Method: Oral Pulse 82 /min Comments: Pattern: Regular Respiration Rate 17 /min Comments: Pattern: Unlabored BP Systolic 118 mm[Hg] Comments: Patient Position: Sitting; Cuff Location: Left Arm; Cuff Size: Standard BP Diastolic 72 mm[Hg] Comments: Patient Position: Sitting; Cuff Location: Left Arm; Cuff Size: Standard Weight 179.7 lb :18 Temperature 98.4 f Comments: Method: Oral Pulse 78 /min Comments: Pattern: Irregular Respiration Rate 16 /min Comments: Pattern: Unlabored BP Systolic 116 mm[Hg] Comments: Patient Position: Sitting; Cuff Location: Left Arm; Cuff Size: Standard BP Diastolic 74 mm[Hg] Comments: Patient Position: Sitting; Cuff Location: Left Arm; Cuff Size: Standard Weight 179.7 lb :57 Temperature 98.1 f Comments: Method: Oral Pulse 74 /min Comments: Pattern: Regular Respiration Rate 20 /min Comments: Pattern: Unlabored BP Systolic 118 mm[Hg] Comments: Patient Position: Sitting; Cuff Location: Left Arm; Cuff Size: Standard BP Diastolic 76 mm[Hg] Comments: Patient Position: Sitting; Cuff Location: Left Arm; Cuff Size: Standard Weight 176 lb Height 67 in Body Mass Index Calculated 27.57 kg/m2 Body Surface Area Calculated 1.92 m2 :28 Temperature 98.1 f Comments: Method: Oral Pulse 72 /min Comments: Pattern: Regular Respiration Rate 18 /min Comments: Pattern: Unlabored BP Systolic 120 mm[Hg] Comments: Patient Position: Sitting; Cuff Location: Left Arm; Cuff Size: Standard BP Diastolic 80 mm[Hg] Comments: Patient Position: Sitting; Cuff Location: Left Arm; Cuff Size: Standard Weight 176 lb Height 67 in Body Mass Index Calculated 27.57 kg/m2 Body Surface Area Calculated 1.92 m2 :27 Temperature 98.6 f Comments: Method: Oral Pulse 70 /min Comments: Pattern: Regular Respiration Rate 18 /min Comments: Pattern: Unlabored BP Systolic 122 mm[Hg] Comments: Patient Position: Sitting; Cuff Location: Left Arm; Cuff Size: Standard BP Diastolic 78 mm[Hg] Comments: Patient Position: Sitting; Cuff Location: Left Arm; Cuff Size: Standard Weight 172 lb Height 67 in Body Mass Index Calculated 26.94 kg/m2 Body Surface Area Calculated 1.9 m2 :12 Temperature 97.8 f Comments: Method: Oral Pulse 78 /min Comments: Pattern: Regular Respiration Rate 17 /min Comments: Pattern: Unlabored BP Systolic 128 mm[Hg] Comments: Patient Position: Sitting; Cuff Location: Left Arm; Cuff Size: Standard BP Diastolic 78 mm[Hg] Comments: Patient Position: Sitting; Cuff Location: Left Arm; Cuff Size: Standard Weight 172.3125 lb :49 Temperature 97.7 f Comments: Method: Oral Pulse 70 /min Comments: Pattern: Regular Respiration Rate 18 /min Comments: Pattern: Unlabored BP Systolic 122 mm[Hg] Comments: Patient Position: Sitting; Cuff Location: Left Arm; Cuff Size: Standard BP Diastolic 72 mm[Hg] Comments: Patient Position: Sitting; Cuff Location: Left Arm; Cuff Size: Standard Weight 172.3125 lb :55 Pulse 60 /min Comments: Pattern: Regular Respiration Rate 20 /min Comments: Pattern: Unlabored BP Systolic 112 mm[Hg] Comments: Patient Position: Sitting; Cuff Location: Left Arm; Cuff Size: Large BP Diastolic 60 mm[Hg] Comments: Patient Position: Sitting; Cuff Location: Left Arm; Cuff Size: Large Weight 165.375 lb :23 Pulse 64 /min Comments: Pattern: Regular Respiration Rate 20 /min Comments: Pattern: Unlabored BP Systolic 118 mm[Hg] Comments: Patient Position: Sitting; Cuff Location: Left Arm; Cuff Size: Large BP Diastolic 70 mm[Hg] Comments: Patient Position: Sitting; Cuff Location: Left Arm; Cuff Size: Large Weight 165.375 lb :29 Temperature 98 f Pulse 84 /min Comments: Pattern: Regular Respiration Rate 16 /min Comments: Pattern: Unlabored BP Systolic 102 mm[Hg] Comments: Patient Position: Sitting; Cuff Location: Left Arm; Cuff Size: Standard BP Diastolic 64 mm[Hg] Comments: Patient Position: Sitting; Cuff Location: Left Arm; Cuff Size: Standard :04 Pulse 76 /min Comments: Pattern: Regular Respiration Rate 16 /min Comments: Pattern: Unlabored BP Systolic 100 mm[Hg] Comments: Patient Position: Sitting; Cuff Location: Left Arm; Cuff Size: Large BP Diastolic 60 mm[Hg] Comments: Patient Position: Sitting; Cuff Location: Left Arm; Cuff Size: Large :21 Pulse 60 /min Comments: Pattern: Regular Respiration Rate 20 /min Comments: Pattern: Unlabored BP Systolic 102 mm[Hg] Comments: Patient Position: Sitting; Cuff Location: Left Arm; Cuff Size: Standard BP Diastolic 60 mm[Hg] Comments: Patient Position: Sitting; Cuff Location: Left Arm; Cuff Size: Standard Weight 165.3125 lb Height 67 in Body Mass Index Calculated 25.89 kg/m2 Body Surface Area Calculated 1.86 m2 :05 Temperature 99.2 f Comments: Method: Oral Pulse 64 /min Comments: Pattern: Regular Respiration Rate 20 /min Comments: Pattern: Unlabored BP Systolic 118 mm[Hg] Comments: Patient Position: Sitting; Cuff Location: Left Arm; Cuff Size: Large BP Diastolic 78 mm[Hg] Comments: Patient Position: Sitting; Cuff Location: Left Arm; Cuff Size: Large Weight 169.125 lb Height 67 in Body Mass Index Calculated 26.49 kg/m2 Body Surface Area Calculated 1.88 m2 :34 Pulse 76 /min Comments: Pattern: Regular Respiration Rate 20 /min Comments: Pattern: Unlabored BP Systolic 110 mm[Hg] Comments: Patient Position: Sitting; Cuff Location: Left Arm; Cuff Size: Large BP Diastolic 70 mm[Hg] Comments: Patient Position: Sitting; Cuff Location: Left Arm; Cuff Size: Large Weight 167.5625 lb Height 67 in Body Mass Index Calculated 26.24 kg/m2 Body Surface Area Calculated 1.88 m2 :18 Pulse 72 /min Comments: Pattern: Regular Respiration Rate 20 /min Comments: Pattern: Unlabored BP Systolic 128 mm[Hg] Comments: Patient Position: Sitting; Cuff Location: Left Arm; Cuff Size: Large BP Diastolic 78 mm[Hg] Comments: Patient Position: Sitting; Cuff Location: Left Arm; Cuff Size: Large Weight 174.125 lb Height 67 in Body Mass Index Calculated 27.27 kg/m2 Body Surface Area Calculated 1.91 m2 :08 Temperature 97.3 f Pulse 76 /min Comments: Pattern: Regular Respiration Rate 18 /min Comments: Pattern: Unlabored BP Systolic 100 mm[Hg] Comments: Patient Position: Sitting; Cuff Location: Left Arm; Cuff Size: Standard BP Diastolic 62 mm[Hg] Comments: Patient Position: Sitting; Cuff Location: Left Arm; Cuff Size: Standard :50 Pulse 68 /min Comments: Pattern: Regular Respiration Rate 20 /min Comments: Pattern: Unlabored BP Systolic 122 mm[Hg] Comments: Patient Position: Sitting; Cuff Location: Left Arm; Cuff Size: Large BP Diastolic 78 mm[Hg] Comments: Patient Position: Sitting; Cuff Location: Left Arm; Cuff Size: Large Weight 174.125 lb Height 67 in Body Mass Index Calculated 27.27 kg/m2 Body Surface Area Calculated 1.91 m2 :41 Temperature 95.9 f Comments: Method: Oral Pulse 68 /min Comments: Pattern: Regular Respiration Rate 20 /min Comments: Pattern: Unlabored BP Systolic 118 mm[Hg] Comments: Patient Position: Sitting; Cuff Location: Left Arm; Cuff Size: Large BP Diastolic 68 mm[Hg] Comments: Patient Position: Sitting; Cuff Location: Left Arm; Cuff Size: Large Weight 174.125 lb Height 67 in Body Mass Index Calculated 27.27 kg/m2 Body Surface Area Calculated 1.91 m2 Head Circumference 0.00 cm :08 Pulse 80 /min Comments: Pattern: Regular Respiration Rate 20 /min Comments: Pattern: Unlabored BP Systolic 120 mm[Hg] Comments: Patient Position: Sitting; Cuff Location: Left Arm; Cuff Size: Large BP Diastolic 62 mm[Hg] Comments: Patient Position: Sitting; Cuff Location: Left Arm; Cuff Size: Large Weight 174.125 lb Height 67 in Body Mass Index Calculated 27.27 kg/m2 Body Surface Area Calculated 1.91 m2 Head Circumference 0.00 cm :21 Temperature 97.7 f Comments: Method: Oral Pulse 86 /min Comments: Pattern: Regular Respiration Rate 19 /min Comments: Pattern: Unlabored BP Systolic 118 mm[Hg] Comments: Patient Position: Sitting; Cuff Location: Left Arm; Cuff Size: Standard BP Diastolic 68 mm[Hg] Comments: Patient Position: Sitting; Cuff Location: Left Arm; Cuff Size: Standard Weight 174.1875 lb Height 67 in Body Mass Index Calculated 27.28 kg/m2 Body Surface Area Calculated 1.91 m2 Head Circumference 0.00 cm :49 Pulse 80 /min Comments: Pattern: Regular Respiration Rate 20 /min Comments: Pattern: Unlabored BP Systolic 118 mm[Hg] Comments: Patient Position: Sitting; Cuff Location: Left Arm; Cuff Size: Large BP Diastolic 76 mm[Hg] Comments: Patient Position: Sitting; Cuff Location: Left Arm; Cuff Size: Large Weight 174.1875 lb Height 67 in Body Mass Index Calculated 27.28 kg/m2 Body Surface Area Calculated 1.91 m2 Head Circumference 0.00 cm :47 Pulse 64 /min Comments: Pattern: Regular Respiration Rate 20 /min Comments: Pattern: Unlabored BP Systolic 118 mm[Hg] Comments: Patient Position: Sitting; Cuff Location: Left Arm; Cuff Size: Large BP Diastolic 76 mm[Hg] Comments: Patient Position: Sitting; Cuff Location: Left Arm; Cuff Size: Large Weight 174.1875 lb Height 67 in Body Mass Index Calculated 27.28 kg/m2 Body Surface Area Calculated 1.91 m2 Head Circumference 0.00 cm :32 Temperature 98.9 f Comments: Method: Oral Pulse 64 /min Comments: Pattern: Regular Respiration Rate 20 /min Comments: Pattern: Unlabored BP Systolic 118 mm[Hg] Comments: Patient Position: Sitting; Cuff Location: Left Arm; Cuff Size: Large BP Diastolic 78 mm[Hg] Comments: Patient Position: Sitting; Cuff Location: Left Arm; Cuff Size: Large Weight 176.5 lb Height 67 in Body Mass Index Calculated 27.64 kg/m2 Body Surface Area Calculated 1.92 m2 Head Circumference 0.00 cm :20 Pulse 72 /min Comments: Pattern: Regular Respiration Rate 16 /min Comments: Pattern: Unlabored BP Systolic 118 mm[Hg] Comments: Patient Position: Supine; Cuff Location: Left Arm; Cuff Size: Standard BP Diastolic 70 mm[Hg] Comments: Patient Position: Supine; Cuff Location: Left Arm; Cuff Size: Standard Weight 187 lb Height 67 in Body Mass Index Calculated 29.29 kg/m2 Body Surface Area Calculated 1.97 m2 Head Circumference 0.00 cm :39 Temperature 100.1 f Comments: Method: Oral Pulse 82 /min Comments: Pattern: Regular Respiration Rate 18 /min Comments: Pattern: Unlabored BP Systolic 108 mm[Hg] Comments: Patient Position: Sitting; Cuff Location: Left Arm; Cuff Size: Standard BP Diastolic 62 mm[Hg] Comments: Patient Position: Sitting; Cuff Location: Left Arm; Cuff Size: Standard Weight 187 lb Height 0 in Head Circumference 0.00 cm :05 Pulse 60 /min Comments: Pattern: Regular Respiration Rate 16 /min Comments: Pattern: Unlabored BP Systolic 112 mm[Hg] Comments: Patient Position: Supine; Cuff Location: Left Arm; Cuff Size: Standard BP Diastolic 70 mm[Hg] Comments: Patient Position: Supine; Cuff Location: Left Arm; Cuff Size: Standard Weight 190.25 lb Height 67 in Body Mass Index Calculated 29.8 kg/m2 Body Surface Area Calculated 1.98 m2 Head Circumference 0.00 cm :00 Pulse 88 /min Comments: Pattern: Regular Respiration Rate 20 /min Comments: Pattern: Unlabored BP Systolic 124 mm[Hg] Comments: Patient Position: Sitting; Cuff Location: Left Arm; Cuff Size: Large BP Diastolic 70 mm[Hg] Comments: Patient Position: Sitting; Cuff Location: Left Arm; Cuff Size: Large Weight 190.0625 lb Height 66 in Body Mass Index Calculated 30.68 kg/m2 Body Surface Area Calculated 1.96 m2 Head Circumference 0.00 cm :59 Temperature 97 f Comments: Method: Oral Pulse 64 /min Comments: Pattern: Regular Respiration Rate 16 /min Comments: Pattern: Unlabored BP Systolic 124 mm[Hg] Comments: Patient Position: Sitting; Cuff Location: Left Arm; Cuff Size: Large BP Diastolic 70 mm[Hg] Comments: Patient Position: Sitting; Cuff Location: Left Arm; Cuff Size: Large Weight 190.0625 lb Height 66 in Body Mass Index Calculated 30.68 kg/m2 Body Surface Area Calculated 1.96 m2 Head Circumference 0.00 cm :11 Temperature 98.4 f Comments: Method: Oral Pulse 84 /min Comments: Pattern: Regular Respiration Rate 20 /min Comments: Pattern: Unlabored BP Systolic 120 mm[Hg] Comments: Patient Position: Sitting; Cuff Location: Left Arm; Cuff Size: Standard BP Diastolic 78 mm[Hg] Comments: Patient Position: Sitting; Cuff Location: Left Arm; Cuff Size: Standard Weight 190.0625 lb Height 0 in Head Circumference 0.00 cm :23 Temperature 97.9 f Comments: Method: Oral Pulse 80 /min Comments: Pattern: Regular Respiration Rate 20 /min Comments: Pattern: Unlabored BP Systolic 118 mm[Hg] Comments: Patient Position: Sitting; Cuff Location: Left Arm; Cuff Size: Standard BP Diastolic 68 mm[Hg] Comments: Patient Position: Sitting; Cuff Location: Left Arm; Cuff Size: Standard Weight 189.4375 lb Height 66 in Body Mass Index Calculated 30.58 kg/m2 Body Surface Area Calculated 1.95 m2 Head Circumference 0.00 cm :21 Pulse 88 /min Comments: Pattern: Regular Respiration Rate 16 /min Comments: Pattern: Unlabored BP Systolic 110 mm[Hg] Comments: Patient Position: Sitting; Cuff Location: Left Arm; Cuff Size: Standard BP Diastolic 78 mm[Hg] Comments: Patient Position: Sitting; Cuff Location: Left Arm; Cuff Size: Standard Weight 189.4375 lb Height 66 in Body Mass Index Calculated 30.58 kg/m2 Body Surface Area Calculated 1.95 m2 Head Circumference 0.00 cm :06 Temperature 97.2 f Comments: Method: Oral Pulse 74 /min Comments: Pattern: Regular Respiration Rate 16 /min Comments: Pattern: Unlabored BP Systolic 126 mm[Hg] Comments: Patient Position: Sitting; Cuff Location: Left Arm; Cuff Size: Standard BP Diastolic 72 mm[Hg] Comments: Patient Position: Sitting; Cuff Location: Left Arm; Cuff Size: Standard Weight 192.5 lb Height 0 in Head Circumference 0.00 cm :49 Pulse 80 /min Comments: Pattern: Regular Respiration Rate 20 /min Comments: Pattern: Unlabored BP Systolic 118 mm[Hg] Comments: Patient Position: Sitting; Cuff Location: Left Arm; Cuff Size: Standard BP Diastolic 70 mm[Hg] Comments: Patient Position: Sitting; Cuff Location: Left Arm; Cuff Size: Standard Weight 192.5 lb Height 0 in Head Circumference 0.00 cm :04 Temperature 98.6 f Comments: Method: Oral Pulse 80 /min Comments: Pattern: Regular Respiration Rate 18 /min Comments: Pattern: Unlabored BP Systolic 122 mm[Hg] Comments: Patient Position: Sitting; Cuff Location: Left Arm; Cuff Size: Large BP Diastolic 72 mm[Hg] Comments: Patient Position: Sitting; Cuff Location: Left Arm; Cuff Size: Large Weight 194.3125 lb Height 0 in Head Circumference 0.00 cm :09 Temperature 97.8 f Comments: Method: Oral Pulse 80 /min Comments: Pattern: Regular Respiration Rate 20 /min Comments: Pattern: Unlabored BP Systolic 118 mm[Hg] Comments: Patient Position: Sitting; Cuff Location: Left Arm; Cuff Size: Large BP Diastolic 68 mm[Hg] Comments: Patient Position: Sitting; Cuff Location: Left Arm; Cuff Size: Large Weight 194.3125 lb Height 0 in Head Circumference 0.00 cm :24 Temperature 97.6 f Comments: Method: Oral Pulse 88 /min Comments: Pattern: Regular Respiration Rate 20 /min Comments: Pattern: Unlabored BP Systolic 118 mm[Hg] Comments: Patient Position: Sitting; Cuff Location: Left Arm; Cuff Size: Standard BP Diastolic 72 mm[Hg] Comments: Patient Position: Sitting; Cuff Location: Left Arm; Cuff Size: Standard Weight 194.3125 lb Height 0 in Head Circumference 0.00 cm :10 Temperature 98.3 f Comments: Method: Oral Pulse 80 /min Comments: Pattern: Regular Respiration Rate 18 /min Comments: Pattern: Unlabored BP Systolic 118 mm[Hg] Comments: Patient Position: Sitting; Cuff Location: Left Arm; Cuff Size: Standard BP Diastolic 76 mm[Hg] Comments: Patient Position: Sitting; Cuff Location: Left Arm; Cuff Size: Standard Weight 210.25 lb Height 0 in Head Circumference 0.00 cm :40 Temperature 98.9 f Comments: Method: Oral Respiration Rate 16 /min Comments: Pattern: Unlabored BP Systolic 110 mm[Hg] Comments: Patient Position: Sitting; Cuff Location: Right Arm; Cuff Size: Standard BP Diastolic 74 mm[Hg] Comments: Patient Position: Sitting; Cuff Location: Right Arm; Cuff Size: Standard Weight 0 lb Height 0 in Head Circumference 0.00 cm :02 Pulse 88 /min Comments: Pattern: Regular Respiration Rate 20 /min Comments: Pattern: Unlabored BP Systolic 138 mm[Hg] Comments: Patient Position: Sitting; Cuff Location: Left Arm; Cuff Size: Large BP Diastolic 88 mm[Hg] Comments: Patient Position: Sitting; Cuff Location: Left Arm; Cuff Size: Large Weight 210.25 lb Height 0 in Head Circumference 0.00 cm :56 Temperature 98.6 f Comments: Method: Oral Pulse 88 /min Comments: Pattern: Regular Respiration Rate 20 /min Comments: Pattern: Unlabored BP Systolic 132 mm[Hg] Comments: Patient Position: Sitting; Cuff Location: Right Arm; Cuff Size: Standard BP Diastolic 82 mm[Hg] Comments: Patient Position: Sitting; Cuff Location: Right Arm; Cuff Size: Standard Weight 199 lb Height 0 in Head Circumference 0.00 cm :00 Temperature 98.8 f Comments: Method: Oral Pulse 80 /min Comments: Pattern: Regular Respiration Rate 20 /min Comments: Pattern: Unlabored BP Systolic 116 mm[Hg] Comments: Patient Position: Sitting; Cuff Location: Left Arm; Cuff Size: Standard BP Diastolic 70 mm[Hg] Comments: Patient Position: Sitting; Cuff Location: Left Arm; Cuff Size: Standard Weight 199 lb Height 0 in Head Circumference 0.00 cm :24 Temperature 98.6 f Comments: Method: Oral Pulse 80 /min Comments: Pattern: Regular Respiration Rate 18 /min Comments: Pattern: Unlabored BP Systolic 124 mm[Hg] Comments: Patient Position: Sitting; Cuff Location: Left Arm; Cuff Size: Standard BP Diastolic 80 mm[Hg] Comments: Patient Position: Sitting; Cuff Location: Left Arm; Cuff Size: Standard Weight 199 lb Height 0 in Head Circumference 0.00 cm :19 Pulse 78 /min Comments: Pattern: Regular Respiration Rate 17 /min Comments: Pattern: Unlabored BP Systolic 122 mm[Hg] Comments: Patient Position: Sitting; Cuff Location: Left Arm; Cuff Size: Standard BP Diastolic 78 mm[Hg] Comments: Patient Position: Sitting; Cuff Location: Left Arm; Cuff Size: Standard Weight 199 lb Height 0 in Head Circumference 0.00 cm :29 Temperature 97.8 f Comments: Method: Oral Pulse 80 /min Comments: Pattern: Regular Respiration Rate 20 /min Comments: Pattern: Unlabored BP Systolic 120 mm[Hg] Comments: Patient Position: Sitting; Cuff Location: Left Arm; Cuff Size: Standard BP Diastolic 80 mm[Hg] Comments: Patient Position: Sitting; Cuff Location: Left Arm; Cuff Size: Standard Weight 199 lb Height 0 in Head Circumference 0.00 cm :02 Temperature 97.3 f Comments: Method: Undefined Pulse 72 /min Comments: Pattern: Regular Respiration Rate 16 /min Comments: Pattern: Undefined BP Systolic 130 mm[Hg] Comments: Patient Position: Sitting; Cuff Location: Left Arm; Cuff Size: Standard BP Diastolic 70 mm[Hg] Comments: Patient Position: Sitting; Cuff Location: Left Arm; Cuff Size: Standard Weight 0 lb Height 0 in Head Circumference 0.00 cm :41 Temperature 97.7 f Comments: Method: Oral Pulse 80 /min Comments: Pattern: Regular Respiration Rate 20 /min Comments: Pattern: Unlabored BP Systolic 116 mm[Hg] Comments: Patient Position: Sitting; Cuff Location: Left Arm; Cuff Size: Standard BP Diastolic 80 mm[Hg] Comments: Patient Position: Sitting; Cuff Location: Left Arm; Cuff Size: Standard Weight 199 lb Height 0 in Head Circumference 0.00 cm :23 Temperature 98.6 f Comments: Method: Oral Pulse 84 /min Comments: Pattern: Regular Respiration Rate 22 /min Comments: Pattern: Undefined BP Systolic 132 mm[Hg] Comments: Patient Position: Sitting; Cuff Location: Left Arm; Cuff Size: Standard BP Diastolic 78 mm[Hg] Comments: Patient Position: Sitting; Cuff Location: Left Arm; Cuff Size: Standard Weight 0 lb Height 0 in Head Circumference 0.00 cm Results Date Description Value Details [id number] CBC, Platelets & Auto Diff Comments: PATIENT NOT FASTINGPERFORMED BY: [facility] Ybyaff5955 [facility] [id number] ([id number]) Immature Grans (Abs) 0.0 {x10E3/uL} (Normal) Range: 0.0-0.1 Immature Granulocytes 0 % (Normal) Baso (Absolute) 0.0 {x10E3/uL} (Normal) Range: 0.0-0.2 Eos (Absolute) 0.1 {x10E3/uL} (Normal) Range: 0.0-0.4 Monocytes(Absolute) 0.5 {x10E3/uL} (Normal) Range: 0.1-0.9 Lymphs (Absolute) 2.7 {x10E3/uL} (Normal) Range: 0.7-3.1 Neutrophils (Absolute) 7.1 {x10E3/uL} (Abnormal) Range: 1.4-7.0 Basos 0 % (Normal) Eos 1 % (Normal) Monocytes 5 % (Normal) Lymphs 26 % (Normal) Neutrophils 68 % (Normal) Platelets 274 {x10E3/uL} (Normal) Range: 150-379 RDW 14.2 % (Normal) Range: 12.3-15.4 MCHC 33.0 g/dL (Normal) Range: 31.5-35.7 MCH 29.7 pg (Normal) Range: 26.6-33.0 MCV 90 fL (Normal) Range: 79-97 Hematocrit 42.7 % (Normal) Range: 34.0-46.6 Hemoglobin 14.1 g/dL (Normal) Range: 11.1-15.9 RBC 4.74 {x10E6/uL} (Normal) Range: 3.77-5.28 WBC 10.5 {x10E3/uL} (Normal) Range: 3.4-10.8 10-Xoh-989129:06 Metabolic Panel, Comprehensive Comments: PATIENT NOT FASTINGPERFORMED BY: [facility] [id number] [facility] [id number] ([id number]) ALT (SGPT) 35 [iU]/L (Abnormal) Range: 0-32 AST (SGOT) 23 [iU]/L (Normal) Range: 0-40 Alkaline Phosphatase 51 [iU]/L (Normal) Range: 39-117 Bilirubin, Total 0.2 mg/dL (Normal) Range: 0.0-1.2 A/G Ratio 1.9 (Normal) Range: 1.2-2.2 Globulin, Total 2.3 g/dL (Normal) Range: 1.5-4.5 Albumin 4.3 g/dL (Normal) Range: 3.5-5.5 Protein, Total 6.6 g/dL (Normal) Range: 6.0-8.5 Calcium 9.0 mg/dL (Normal) Range: 8.7-10.2 Carbon Dioxide, Total 20 mmol/L (Normal) Range: 20-29 Chloride 106 mmol/L (Normal) Range: 96-106 Potassium 4.1 mmol/L (Normal) Range: 3.5-5.2 Sodium 142 mmol/L (Normal) Range: 134-144 BUN/Creatinine Ratio 11 (Normal) Range: 9-23 eGFR If Africn Am 115 mL/min/1.73 (Normal) eGFR If NonAfricn Am 100 mL/min/1.73 (Normal) Creatinine 0.73 mg/dL (Normal) Range: 0.57-1.00 BUN 8 mg/dL (Normal) Range: 6-24 Glucose 87 mg/dL (Normal) Range: 65-99 36-Qer-674623:04 Urinalysis, Office ([id number]) UA - LEUKOCYTE ESTERASE Negative (Normal) UA - NITRITE Negative (Normal) URINE UROBILINGN ALEXANDRE TIMED Normal mg/dL (Normal) UA - PROTEIN Negative mg/dL (Normal) UA - PH 6.5 (Normal) UA - BLOOD non-hemolyzed trace (Normal) UA - SPECIFIC GRAVITY 1.015 (Normal) UA - KETONES Small mg/dL (Normal) UA - BILIRUBIN Negative (Normal) UA - GLUCOSE Negative (Normal) 11-Mar-20179:42 CBC, PLATELETS & AUT DIFF Comments: repeat in 2 weeks; PATIENT NOT FASTINGPERFORMED BY: [facility] Aothld4529 [facility] [id number] ([id number]) Immature Grans (Abs) 0.0 {x10E3/uL} (Normal) Range: 0.0-0.1 Immature Granulocytes 0 % (Normal) Baso (Absolute) 0.0 {x10E3/uL} (Normal) Range: 0.0-0.2 Eos (Absolute) 0.3 {x10E3/uL} (Normal) Range: 0.0-0.4 Monocytes(Absolute) 0.8 {x10E3/uL} (Normal) Range: 0.1-0.9 Lymphs (Absolute) 4.3 {x10E3/uL} (Abnormal) Range: 0.7-3.1 Neutrophils (Absolute) 7.1 {x10E3/uL} (Abnormal) Range: 1.4-7.0 Basos 0 % (Normal) Eos 2 % (Normal) Monocytes 6 % (Normal) Lymphs 34 % (Normal) Neutrophils 58 % (Normal) Platelets 308 {x10E3/uL} (Normal) Range: 150-379 RDW 14.5 % (Normal) Range: 12.3-15.4 MCHC 31.1 g/dL (Abnormal) Range: 31.5-35.7 MCH 29.1 pg (Normal) Range: 26.6-33.0 MCV 94 fL (Normal) Range: 79-97 Hematocrit 39.9 % (Normal) Range: 34.0-46.6 Hemoglobin 12.4 g/dL (Normal) Range: 11.1-15.9 RBC 4.26 {x10E6/uL} (Normal) Range: 3.77-5.28 WBC 12.6 {x10E3/uL} (Abnormal) Range: 3.4-10.8 15-Gzz-48262:03 Cancer Antigen (CA) 125 Comments: PATIENT NOT FASTINGPERFORMED BY: [facility]iel[facility]58 [facility] [id number] ([id number]) Cancer Antigen (CA) 125 5.8 U/mL (Normal) Range: 0.0-38.1 Comments: FRAMED ECLIA methodology [id number]:06 CBC W/Diff, Automated Comments: [facility] [address] [place], [place], [id number] Absolute Lymph 3.42 {X10_3/ul} (Normal) Range: 0.83-4.51 Absolute Neut 11.7 {X10_3/uL} (Abnormal) Range: 2.0-7.7 IM GRAN % 0.200 % (Normal) Range: 0.0-0.9 Comments: IG% - Immature Granulocytes (promyelocytes, myelocytes andmetamyelocytes) > 1% indicates that a LEFT SHIFT is Present. BASO% 0.1 % (Normal) Range: 0-1 EO% 1.4 % (Normal) Range: 0-5 MONO% 5.4 % (Normal) Range: 0-10 LY% 21.0 % (Normal) Range: 19-41 NEUT% 71.9 % (Abnormal) Range: 47-70 MPV 10.6 fL (Normal) Range: 6.2-12.0 PLT 237 K/mm3 (Normal) Range: 150-450 RDW SD 45.1 fL (Abnormal) Range: 35.1-43.9 RDW CV 13.7 % (Normal) Range: 11.6-14.6 MCHC 33.1 {g/gl} (Normal) Range: 32-36 MCH 29.7 pg (Normal) Range: 27.0-32.0 MCV 89.8 fL (Normal) Range: 81-99 HCT 41.4 % (Normal) Range: 37-47 HGB 13.7 g/dL (Normal) Range: 12.0-15.0 RBC 4.61 {M/mm3} (Normal) Range: 4.2-5.4 WBC 16.3 K/mm3 (Abnormal) Range: 4.4-11.0 0-Cwr-[id number]:06 Comprehensive Metabolic Profil Comments: PLEASE ADD CRP TO BLOOD FROM [facility] [address] [place], [place], [id number] GAP 6 (Normal) Range: 5-15 CO2 28.0 mmol/L (Normal) Range: 21.0-32.0 CL 102 mmol/L (Normal) Range: 98-107 K 3.6 mmol/L (Normal) Range: 3.5-5.1 NA 136 mmol/L (Normal) Range: 136-145 T BILI 0.20 mg/dL (Normal) Range: 0.20-1.00 ALT 28 U/L (Normal) Range: 12-78 ALK P 42 U/L (Abnormal) Range: 45-117 AST 15 U/L (Normal) Range: 15-37 CA 8.5 mg/dL (Normal) Range: 8.5-10.1 A/G 1.2 {RATIO} (Normal) Range: 0.9-2.4 GLOB 3.2 g/dL (Normal) Range: 2.3-3.5 ALB 3.8 g/dL (Normal) Range: 3.4-5.0 T PROT 7.0 g/dL (Normal) Range: 6.4-8.2 BUN/CRE 15.3 {RATIO} (Normal) Range: 10-20 EST GFR - AA 113 mL/min (Normal) Comments: GFR Calc EST GFR 93 mL/min (Normal) Comments: Non- GFR Calc CREAT,SERUM 0.72 mg/dL (Normal) Range: 0.55-1.02 Comments: The validity of the calculated GFR AND GFRAA in patients over70 years has not been determined. Clinical correlation isessential. BUN 11 mg/dL (Normal) Range: 7-18 GLU 92 mg/dL (Normal) Range: 70-110 5-Eir-[id number]:06 CRP Comments: PLEASE ADD CRP TO BLOOD FROM [facility] [address] [place], [place], [id number] C-REACTIVE PROT < 2.90 mg/L (Normal) Range: 0.0-3.0 Comments: C-Reactive Protein (CRP) provides useful information for thediagnosis, therapy and monitoring of inflammatory processesand associated diseases. For the evaluation of Relative Riskfor Cardiovascular Dise ase, a High Sensitivity CRP (HSCRP)should be ordered. :06 Culture, Urine Comments: [facility] [address] [place], [place], [id number] CUUR See Note (Normal) Comments: Urine CultureCulture exhibits no growth. [id number] Erythrocyte Sed Rate Comments: [facility] [address] [place], [place], [id number] SED RATE < 1 mm/h (Normal) Range: 0-20 03-Dec-20169:26 Urinalysis, Office ([id number]) Comments: trace of bloodnit and leuk neg UA - LEUKOCYTE ESTERASE Negative (Normal) UA - NITRITE Negative (Normal) URINE UROBILINGN ALEXANDRE TIMED Normal mg/dL (Normal) UA - PROTEIN Negative mg/dL (Normal) UA - PH 7 (Normal) UA - BLOOD Non Hemolyzed Trace (Normal) UA - SPECIFIC GRAVITY 1.020 (Normal) UA - KETONES Negative mg/dL (Normal) UA - BILIRUBIN Negative (Normal) UA - GLUCOSE Negative (Normal) 1-Fvo-128770:05 URINE RANGEL CULTURE-IDENTIFICATN Comments: PATIENT NOT FASTINGPERFORMED BY: [facility] Dinopn8970 [facility] [id number] Information: SRC:UC ([id number]) Result 1 MUG (Normal) Comments: Mixed urogenital flora6,000 Colonies/mL Urine Culture,Comprehensive Final report (Normal) :13 CBC, PLATELETS & MANUAL DIFF Comments: PATIENT WAS FASTINGPERFORMED BY: [facility] [id number] ([id number]) Immature Grans (Abs) 0.0 {x10E3/uL} (Normal) Range: 0.0-0.1 Immature Granulocytes 0 % (Normal) Baso (Absolute) 0.0 {x10E3/uL} (Normal) Range: 0.0-0.2 Eos (Absolute) 0.2 {x10E3/uL} (Normal) Range: 0.0-0.4 Monocytes(Absolute) 0.9 {x10E3/uL} (Normal) Range: 0.1-0.9 Lymphs (Absolute) 4.1 {x10E3/uL} (Abnormal) Range: 0.7-3.1 Neutrophils (Absolute) 9.4 {x10E3/uL} (Abnormal) Range: 1.4-7.0 Basos 0 % (Normal) Eos 1 % (Normal) Monocytes 6 % (Normal) Lymphs 28 % (Normal) Neutrophils 65 % (Normal) Platelets 287 {x10E3/uL} (Normal) Range: 150-379 RDW 14.9 % (Normal) Range: 12.3-15.4 MCHC 32.5 g/dL (Normal) Range: 31.5-35.7 MCH 29.9 pg (Normal) Range: 26.6-33.0 MCV 92 fL (Normal) Range: 79-97 Hematocrit 37.9 % (Normal) Range: 34.0-46.6 Hemoglobin 12.3 g/dL (Normal) Range: 11.1-15.9 RBC 4.11 {x10E6/uL} (Normal) Range: 3.77-5.28 WBC 14.6 {x10E3/uL} (Abnormal) Range: 3.4-10.8 :13 METABOLIC PANEL, COMPREHENSIVE Comments: PATIENT WAS FASTINGPERFORMED BY: [facility] [id number] ([id number]) ALT (SGPT) 9 [iU]/L (Normal) Range: 0-32 AST (SGOT) 13 [iU]/L (Normal) Range: 0-40 Alkaline Phosphatase, S 29 [iU]/L (Abnormal) Range: 39-117 Bilirubin, Total <0.2 mg/dL (Normal) Range: 0.0-1.2 A/G Ratio 1.9 (Normal) Range: 1.2-2.2 Globulin, Total 2.3 g/dL (Normal) Range: 1.5-4.5 Albumin, Serum 4.3 g/dL (Normal) Range: 3.5-5.5 Protein, Total, Serum 6.6 g/dL (Normal) Range: 6.0-8.5 Calcium, Serum 9.3 mg/dL (Normal) Range: 8.7-10.2 Carbon Dioxide, Total 24 mmol/L (Normal) Range: 18-29 Chloride, Serum 101 mmol/L (Normal) Range: 96-106 Potassium, Serum 3.9 mmol/L (Normal) Range: 3.5-5.2 Sodium, Serum 142 mmol/L (Normal) Range: 134-144 BUN/Creatinine Ratio 16 (Normal) Range: 9-23 eGFR If Africn Am 104 mL/min/1.73 (Normal) eGFR If NonAfricn Am 90 mL/min/1.73 (Normal) Creatinine, Serum 0.80 mg/dL (Normal) Range: 0.57-1.00 BUN 13 mg/dL (Normal) Range: 6-24 Glucose, Serum 90 mg/dL (Normal) Range: 65-99 04-Mar-20178:13 CALCIFEDIOL ([id number]) Comments: PATIENT WAS FASTINGPERFORMED BY: [facility] [id number] Vitamin D, 25-Hydroxy 41.5 ng/mL (Normal) Range: 30.0-100.0 Comments: Vitamin D deficiency has been defined by the [employer] ofMedicine and an Endocrine Society practice guideline as alevel of serum 25-OH vitamin D less than 20 ng/mL (1,2).The Endocrine Society went on to further define vitamin Dinsufficiency as a level between 21 and 29 ng/mL (2).1. IOM ([employer] of Medicine). 2010. Dietary reference intakes for calcium and D. [place]: The National Academies Press.2. Danita MF, Bev [place], Merry NEW, et al. Evaluation, treatment, and prevention of vitamin D deficiency: an Endocrine Society clinical practice guideline. JCEM. 2010; 96(7):1911-30. :13 LIPID PANEL ([id number]) Comments: PATIENT WAS FASTINGPERFORMED BY: [facility] Jbzgmk4642 [facility] [id number] LDL/HDL Ratio 0.8 {ratio_units} (Normal) Range: 0.0-3.2 Comments: LDL/HDL Ratio Men Women 1/2 Avg.Risk 1.0 1.5 Av g.Risk 3.6 3.2 2X Avg.Risk 6.2 5.0 3X Avg.Risk 8.0 6.1 LDL Cholesterol Calc 49 mg/dL (Normal) Range: 0-99 VLDL Cholesterol Tash 25 mg/dL (Normal) Range: 5-40 HDL Cholesterol 61 mg/dL (Normal) Triglycerides 124 mg/dL (Normal) Range: 0-149 Cholesterol, Total 135 mg/dL (Normal) Range: 100-199 1-Qai-085971:55 CBC, Platelets & Auto Diff Comments: PATIENT NOT FASTINGPERFORMED BY: [facility] Qkgwse3449 [facility] [id number] ([id number]) Immature Grans (Abs) 0.0 {x10E3/uL} (Normal) Range: 0.0-0.1 Immature Granulocytes 0 % (Normal) Baso (Absolute) 0.0 {x10E3/uL} (Normal) Range: 0.0-0.2 Eos (Absolute) 0.4 {x10E3/uL} (Normal) Range: 0.0-0.4 Monocytes(Absolute) 0.6 {x10E3/uL} (Normal) Range: 0.1-0.9 Lymphs (Absolute) 3.9 {x10E3/uL} (Abnormal) Range: 0.7-3.1 Neutrophils (Absolute) 4.7 {x10E3/uL} (Normal) Range: 1.4-7.0 Basos 0 % (Normal) Eos 4 % (Normal) Monocytes 6 % (Normal) Lymphs 41 % (Normal) Neutrophils 49 % (Normal) Platelets 272 {x10E3/uL} (Normal) Range: 150-379 RDW 14.4 % (Normal) Range: 12.3-15.4 MCHC 33.6 g/dL (Normal) Range: 31.5-35.7 MCH 29.9 pg (Normal) Range: 26.6-33.0 MCV 89 fL (Normal) Range: 79-97 Hematocrit 39.9 % (Normal) Range: 34.0-46.6 Hemoglobin 13.4 g/dL (Normal) Range: 11.1-15.9 RBC 4.48 {x10E6/uL} (Normal) Range: 3.77-5.28 WBC 9.6 {x10E3/uL} (Normal) Range: 3.4-10.8 :38 CBC W/Diff, Automated Comments: Order Date: 04/07/16Order Info: [id number] - CBCDOrder Date: 04/07/16Order Info: [id number] - CBCDOrder Date: 04/07/16Order Info: [id number] - [facility] [address] [place], [place], [address] Absolute Lymph 3.03 {X10_3/ul} (Normal) Range: 0.83-4.51 Absolute Neut 7.5 {X10_3/uL} (Normal) Range: 2.0-7.7 IM GRAN % 0.300 % (Normal) Range: 0.0-0.9 Comments: IG% - Immature Granulocytes (promyelocytes, myelocytes andmetamyelocytes) > 1% indicates that a LEFT SHIFT is Present. BASO% 0.2 % (Normal) Range: 0-1 EO% 2.2 % (Normal) Range: 0-5 MONO% 5.8 % (Normal) Range: 0-10 LY% 26.4 % (Normal) Range: 19-41 NEUT% 65.1 % (Normal) Range: 47-70 MPV 10.9 fL (Normal) Range: 6.2-12.0 PLT 263 K/mm3 (Normal) Range: 150-450 RDW SD 46.2 fL (Abnormal) Range: 35.1-43.9 RDW CV 14.2 % (Normal) Range: 11.6-14.6 MCHC 33.3 {g/gl} (Normal) Range: 32-36 MCH 30.0 pg (Normal) Range: 27.0-32.0 MCV 90.3 fL (Normal) Range: 81-99 HCT 44.5 % (Normal) Range: 37-47 HGB 14.8 g/dL (Normal) Range: 12.0-15.0 RBC 4.93 {M/mm3} (Normal) Range: 4.2-5.4 WBC 11.5 K/mm3 (Abnormal) Range: 4.4-11.0 :38 Comprehensive Metabolic Profil Comments: Order Date: 04/07/16Order Info: [id number] - CMPOrder Info: [id number] - AMYOrder Info: [id number] - LIPASEOrder Date: 04/07/16Order Info: [id number] - [facility] [address] [place], [place], [address] GAP 2 (Abnormal) Range: 5-15 CO2 28.0 mmol/L (Normal) Range: 21.0-32.0 CL 108 mmol/L (Abnormal) Range: 98-107 K 4.1 mmol/L (Normal) Range: 3.5-5.1 NA 138 mmol/L (Normal) Range: 136-145 T BILI 0.10 mg/dL (Abnormal) Range: 0.20-1.00 ALT 17 U/L (Normal) Range: 12-78 ALK P 43 U/L (Abnormal) Range: 45-117 AST 10 U/L (Abnormal) Range: 15-37 CA 9.1 mg/dL (Normal) Range: 8.5-10.1 A/G 1.2 {RATIO} (Normal) Range: 0.9-2.4 GLOB 3.3 g/dL (Normal) Range: 2.3-3.5 ALB 4.1 g/dL (Normal) Range: 3.4-5.0 T PROT 7.4 g/dL (Normal) Range: 6.4-8.2 BUN/CRE 16.4 {RATIO} (Normal) Range: 10-20 EST GFR - AA 101 mL/min (Normal) Comments: GFR Calc EST GFR 84 mL/min (Normal) Comments: Non- GFR Calc CREAT,SERUM 0.79 mg/dL (Normal) Range: 0.55-1.02 Comments: The validity of the calculated GFR AND GFRAA in patients over70 years has not been determined. Clinical correlation isessential. BUN 13 mg/dL (Normal) Range: 7-18 GLU 82 mg/dL (Normal) Range: 70-110 :38 AMYLASE ([id number]) Comments: Order Date: 04/07/16Order Info: 0786- [id number] - CMPOrder Info: 1798-8 - AMYOrder Info: 3040-3 - LIPASEOrder Date: 04/07/16Order Info: 3040-3 - [facility] [place] [id number] [facility] [address] [place], [place], [phone] GALINA 52 U/L (Normal) Range: 25-115 :38 LIPASE ([id number]) Comments: Order Date: 04/07/16Order Info: 0786-1 - CMPOrder Info: 1798-8 - AMYOrder Info: 3040-3 - LIPASEOrder Date: 04/07/16Order Info: 3040-3 - [facility] [place] [id number] [facility]. [place], [place], [address] LIPASE 257 U/L (Normal) Range: 73-393 7-Cix-[id number]:51 URINE RANGEL CULTURE-ALEXANDRE COL Comments: PATIENT NOT FASTINGPERFORMED BY: [facility] Lqloev2644 [facility] [id number] Information: SRC:UC COUNT (63889) Result 1 MUG (Normal) Comments: Mixed urogenital flora1,000 Colonies/mL Urine Culture,Comprehensive Final report (Normal) :11 Urinalysis, Office (02606) UA - LEUKOCYTE ESTERASE Negative (Normal) UA - NITRITE Negative (Normal) URINE UROBILINGN ALEXANDRE TIMED Normal mg/dL (Normal) UA - PROTEIN Negative mg/dL (Normal) UA - PH 6 (Abnormal) UA - BLOOD Hemolyzed Trace (Normal) UA - SPECIFIC GRAVITY 1.010 (Normal) UA - KETONES Negative mg/dL (Normal) UA - BILIRUBIN Negative (Normal) UA - GLUCOSE Negative (Normal) 09-Rvo-13526:33 URINE RANGEL CULTURE-ALEXANDRE COL Comments: PATIENT NOT FASTINGPERFORMED BY: [facility] Jylaty4324 [facility] [id number] Information: SRC:UC COUNT (23547) Result 1 CNSNSS (Abnormal) Comments: Coagulase negative Staphylococcus species, not Staphylococcussaprophyticus.Greater than 100,000 colony forming units per mLBased on susceptibility to oxacillin this isolate would besusceptible to:* Beta -lactam/beta-lactamase inhibitor combinations; such as: Amoxicillin-clavulanic acid Ampicillin-sulbactam* Antistaphylococcal cephems; such as: Cefaclor Cefuroxime* Antistaphylococcal carbape nems; such as: Imipenem MeropenemMost isolates of Staphylococcus sp. produce a beta-lactamase enzymerendering them resistant to penicillin. Please contact the laboratoryif penicillin is being cons idered for therapy. S = Susceptible; I = Intermediate; R = Resistant P = Positive; N = Negative MICS are expressed in micrograms per mL Antibiotic RSLT#1 RSLT#2 RSLT#3 RSLT#4Ciprofloxacin SGentamicin SLevofloxacin SLinezolid SNitrofurantoin SOxa cillin SQuinupristin/Dalfopristin SRifampin STetracycline RTrimethoprim/Sulfa SVancomycin S Urine Final report Culture,Comprehen (Abnormal) [facility] 16-Riu-40702:48 Urinalysis, Office (60608) UA - LEUKOCYTE ESTERASE Small (Normal) UA - NITRITE Negative (Normal) URINE UROBILINGN ALEXANDRE TIMED Normal mg/dL (Normal) UA - PROTEIN Negative mg/dL (Normal) UA - PH 7 (Normal) UA - BLOOD Non Hemolyzed Moderate (Normal) UA - SPECIFIC GRAVITY 1.015 (Normal) UA - KETONES Negative mg/dL (Normal) UA - BILIRUBIN Negative (Normal) UA - GLUCOSE Negative (Normal) 29-Rua-17018:53 CALCIFIDIOL (36883) VIT D 25 Comments: PATIENT WAS FASTINGPERFORMED BY: [facility] Reipyg1558 [facility] [id number] Vitamin D, 25-Hydroxy 42.6 ng/mL (Normal) Range: 30.0-100.0 Comments: Vitamin D deficiency has been defined by the [place] ofMedicine and an Endocrine Society practice guideline as alevel of serum 25-OH vitamin D less than 20 ng/mL (1,2).The Endocrine Society went on to further define vitamin Dinsufficiency as a level between 21 and 29 ng/mL (2).1. IOM (Jackman of Medicine). 2010. Dietary reference intakes for calcium and D. [place]: The National Academies Press.2. Danita MF, Bev VALENZUELA, Merry NEW, et al. Evaluation, treatment, and prevention of vitamin D deficiency: an Endocrine Society clinical practice guideline. JCEM. 2010; 96(7):1911-30. :53 TSH (52857) Comments: PATIENT WAS FASTINGPERFORMED BY: [facility] [id number] TSH 2.340 {uIU/mL} (Normal) Range: 0.450-4.500 :53 LIPID PANEL (67557) Comments: PATIENT WAS FASTINGPERFORMED BY: [facility] [id number] LDL/HDL Ratio 1.3 {ratio_units} (Normal) Range: 0.0-3.2 Comments: LDL/HDL Ratio Men Women 1/2 Avg.Risk 1.0 1.5 Av g.Risk 3.6 3.2 2X Avg.Risk 6.2 5.0 3X Avg.Risk 8.0 6.1 LDL Cholesterol Calc 75 mg/dL (Normal) Range: 0-99 VLDL Cholesterol Tash 33 mg/dL (Normal) Range: 5-40 HDL Cholesterol 59 mg/dL (Normal) Triglycerides 165 mg/dL (Abnormal) Range: 0-149 Cholesterol, Total 167 mg/dL (Normal) Range: 100-199 :53 METABOLIC PANEL, COMPREHENSIVE Comments: PATIENT WAS FASTINGPERFORMED BY: [facility] [id number] (09125) ALT (SGPT) 11 [iU]/L (Normal) Range: 0-32 AST (SGOT) 16 [iU]/L (Normal) Range: 0-40 Alkaline Phosphatase, S 36 [iU]/L (Abnormal) Range: 39-117 Bilirubin, Total <0.2 mg/dL (Normal) Range: 0.0-1.2 A/G Ratio 1.8 (Normal) Range: 1.2-2.2 Globulin, Total 2.5 g/dL (Normal) Range: 1.5-4.5 Albumin, Serum 4.4 g/dL (Normal) Range: 3.5-5.5 Protein, Total, Serum 6.9 g/dL (Normal) Range: 6.0-8.5 Calcium, Serum 10.0 mg/dL (Normal) Range: 8.7-10.2 Carbon Dioxide, Total 23 mmol/L (Normal) Range: 18-29 Chloride, Serum 103 mmol/L (Normal) Range: 96-106 Potassium, Serum 4.6 mmol/L (Normal) Range: 3.5-5.2 Sodium, Serum 142 mmol/L (Normal) Range: 134-144 BUN/Creatinine Ratio 13 (Normal) Range: 9-23 eGFR If Africn Am 99 mL/min/1.73 (Normal) eGFR If NonAfricn Am 86 mL/min/1.73 (Normal) Creatinine, Serum 0.83 mg/dL (Normal) Range: 0.57-1.00 BUN 11 mg/dL (Normal) Range: 6-24 Glucose, Serum 89 mg/dL (Normal) Range: 65-99 00-Crs-37475:53 CBC W/AUTO DIFF WBC (68127) Comments: PATIENT WAS FASTINGPERFORMED BY: [facility]CoH[facility] CenterQgydgj7461 [facility] [id number]; fu 08-28 kf Immature Grans (Abs) 0.0 {x10E3/uL} (Normal) Range: 0.0-0.1 Immature Granulocytes 0 % (Normal) Baso (Absolute) 0.0 {x10E3/uL} (Normal) Range: 0.0-0.2 Eos (Absolute) 0.2 {x10E3/uL} (Normal) Range: 0.0-0.4 Monocytes(Absolute) 0.6 {x10E3/uL} (Normal) Range: 0.1-0.9 Lymphs (Absolute) 3.8 {x10E3/uL} (Abnormal) Range: 0.7-3.1 Neutrophils (Absolute) 5.7 {x10E3/uL} (Normal) Range: 1.4-7.0 Basos 0 % (Normal) Eos 2 % (Normal) Monocytes 6 % (Normal) Lymphs 36 % (Normal) Neutrophils 56 % (Normal) Platelets 304 {x10E3/uL} (Normal) Range: 150-379 RDW 14.6 % (Normal) Range: 12.3-15.4 MCHC 32.8 g/dL (Normal) Range: 31.5-35.7 MCH 29.3 pg (Normal) Range: 26.6-33.0 MCV 89 fL (Normal) Range: 79-97 Hematocrit 41.5 % (Normal) Range: 34.0-46.6 Hemoglobin 13.6 g/dL (Normal) Range: 11.1-15.9 RBC 4.64 {x10E6/uL} (Normal) Range: 3.77-5.28 WBC 10.4 {x10E3/uL} (Normal) Range: 3.4-10.8 :17 CALCIFIDIOL (89160) VIT D 25 Comments: PATIENT NOT FASTINGPERFORMED BY: [facility]CoH[facility] CenterCbcqbg0178 [facility] [id number] Vitamin D, 25-Hydroxy 62.9 ng/mL (Normal) Range: 30.0-100.0 Comments: Vitamin D deficiency has been defined by the [place] ofMedicine and an Endocrine Society practice guideline as alevel of serum 25-OH vitamin D less than 20 ng/mL (1,2).The Endocrine Society went on to further define vitamin Dinsufficiency as a level between 21 and 29 ng/mL (2).1. IOM (Jackman of Medicine). 2010. Dietary reference intakes for calcium and D. [place]: The National Academies Press.2. Danita MF, Bev NC, Neda-Yung NEW, et al. Evaluation, treatment, and prevention of vitamin D deficiency: an Endocrine Society clinical practice guideline. JCEM. 2010; 96(7):1911-30. :27 CBC W/Diff, Automated Comments: [facility] [address] [place], [place], [address] Absolute Lymph 3.20 {X10_3/ul} (Normal) Range: 0.83-4.51 Absolute Neut 4.9 {X10_3/uL} (Normal) Range: 2.0-7.7 IM GRAN % 0.100 % (Normal) Range: 0.0-0.9 Comments: IG% - Immature Granulocytes (promyelocytes, myelocytes andmetamyelocytes) > 1% indicates that a LEFT SHIFT is Present. BASO% 0.1 % (Normal) Range: 0-1 EO% 3.0 % (Normal) Range: 0-5 MONO% 6.2 % (Normal) Range: 0-10 LY% 35.9 % (Normal) Range: 19-41 NEUT% 54.7 % (Normal) Range: 47-70 MPV 10.1 fL (Normal) Range: 6.2-12.0 PLT 264 K/mm3 (Normal) Range: 150-450 RDW SD 44.4 fL (Abnormal) Range: 35.1-43.9 RDW CV 13.6 % (Normal) Range: 11.6-14.6 MCHC 33.3 {g/gl} (Normal) Range: 32-36 MCH 29.8 pg (Normal) Range: 27.0-32.0 MCV 89.6 fL (Normal) Range: 81-99 HCT 43.3 % (Normal) Range: 37-47 HGB 14.4 g/dL (Normal) Range: 12.0-15.0 RBC 4.83 {M/mm3} (Normal) Range: 4.2-5.4 WBC 8.9 K/mm3 (Normal) Range: 4.4-11.0 50-Gty-76280:27 Comprehensive Metabolic Profil Comments: [facility] [address] [place], [place], [id number] GAP 6 (Normal) Range: 5-15 CO2 26.0 mmol/L (Normal) Range: 21.0-32.0 CL 110 mmol/L (Abnormal) Range: 98-107 K 4.1 mmol/L (Normal) Range: 3.5-5.1 NA 142 mmol/L (Normal) Range: 136-145 T BILI 0.40 mg/dL (Normal) Range: 0.20-1.00 ALT 23 U/L (Normal) Range: 12-78 ALK P 33 U/L (Abnormal) Range: 50-136 AST 18 U/L (Normal) Range: 15-37 CA 8.9 mg/dL (Normal) Range: 8.5-10.1 A/G 1.2 {RATIO} (Normal) Range: 0.9-2.4 GLOB 3.4 g/dL (Normal) Range: 2.3-3.5 ALB 4.0 g/dL (Normal) Range: 3.4-5.0 T PROT 7.4 g/dL (Normal) Range: 6.4-8.2 BUN/CRE 14.5 {RATIO} (Normal) Range: 10-20 EST GFR - AA 88 mL/min (Normal) Comments: GFR Calc EST GFR 73 mL/min (Normal) Comments: Non- GFR Calc CREAT,SERUM 0.90 mg/dL (Normal) Range: 0.55-1.20 Comments: The validity of the calculated GFR AND GFRAA in patients over70 years has not been determined. Clinical correlation isessential. BUN 13 mg/dL (Normal) Range: 7-18 GLU 94 mg/dL (Normal) Range: 70-110 93-Mur-70202:27 Lipid Profile Comments: [facility] [address] [place], [place], [id number] VLDL 19 mg/dL (Normal) Range: 5-40 LDL 48 mg/dL (Normal) Range: 0-130 HDL 52 mg/dL (Normal) Comments: The drugs N-Acetylcysteine and Metamizole may falsely deressthis assay. Reference Range HDL <40 mg/dL Low HDL Cholesterol HDL >or= 60 mg/dL High HDL Cholesterol TRIG 95 mg/dL (Normal) Comments: The drugs N-Acetylcysteine and Metamizole may falsely deressthis assay.Serum Triglycerides Reference Interval Normal <150 mg/dL Borderline high 150 - 199 mg/dL High 200 - 499 mg/dL Very High > or = 500 mg/dL CHOL 119 mg/dL (Normal) Comments: <200 mg/dL Desirable 200-240 mg/dL Borderline >240 mg/dL High Risk 86-Fno-51139:27 Thyroid Stim Hormone (TSH) Comments: [facility] [address] [place], [place], [address] TSH 0.98 {uIU/mL} (Normal) Range: 0.358-3.74 :27 Vitamin D,25 Hydroxy Comments: [facility] [address] [place], [address] Vitamin D 25-OH 42.2 ng/mL (Normal) Comments: Vitamin D 25(OH) Status Range Deficiency <20 ng/mL (50nmol/L) Insuffciency 20 - 30 ng/mL (50 - 75 nmol/L) Sufficiency 30 - 100 ng/mL (75 - 250 nmol/L) Toxicity >100 ng/mL (>250 nmol/L) :32 HgA1C , Office (17385) HgA1C , Office 5.4 % (Normal) Range: 4.6 - 7.1 :21 Rapid Flu (36066 x 2) Influenza A Ag Negative a/b (Normal) :25 Microscopic Examination Comments: PATIENT WAS FASTINGPERFORMED BY: [facility]CoH[facility] CenterLdlqkn6540 [facility] [id number] Bacteria None seen (Normal) Mucus Threads Present (Normal) Epithelial Cells (non renal) None seen {/hpf} (Normal) Range: 0 - 10 RBC 0-2 {/hpf} (Normal) Range: 0 - 2 WBC 0-5 {/hpf} (Normal) Range: 0 - 5 :25 CALCIFIDIOL (80412) VIT D 25 Comments: PATIENT WAS FASTINGPERFORMED BY: [facility] Icrhmx8058 [facility] [id number] Vitamin D, 25-Hydroxy 43.4 ng/mL (Normal) Range: 30.0-100.0 Comments: Vitamin D deficiency has been defined by the Jackman ofMedicine and an Endocrine Society practice guideline as alevel of serum 25-OH vitamin D less than 20 ng/mL (1,2).The Endocrine Society went on to further define vitamin Dinsufficiency as a level between 21 and 29 ng/mL (2).1. IOM (Jackman of Medicine). 2010. Dietary reference intakes for calcium and D. [place]: The National Academies Press.2. Danita METZ, Bev VALENZUELA, Merry NEW, et al. Evaluation, treatment, and prevention of vitamin D deficiency: an Endocrine Society clinical practice guideline. JCEM. 2010; 96(7):1911-30. :25 TSH (65896) Comments: PATIENT WAS FASTINGPERFORMED BY: [place] [place] [id number] TSH 1.660 {uIU/mL} (Normal) Range: 0.450-4.500 :25 URINALYSIS, W/ MICRO (51657) Comments: PATIENT WAS FASTINGPERFORMED BY: [facility] [id number] Microscopic Examination See below: (Normal) Comments: Microscopic was indicated and was performed. Microscopic Examination MICRON (Normal) Comments: Microscopic follows if indicated. Nitrite, Urine Negative (Normal) Urobilinogen,Semi-Qn 0.2 mg/dL (Normal) Range: 0.2-1.0 Bilirubin Negative (Normal) Occult Blood Negative (Normal) Ketones Negative (Normal) Glucose Negative (Normal) Protein Negative (Normal) WBC Esterase Negative (Normal) Appearance Clear (Normal) Urine-Color Yellow (Normal) pH 7.0 (Normal) Range: 5.0-7.5 Specific Muse 1.015 (Normal) Range: 1.005-1.030 :25 MICROALBUMIN: CREATININE RATIO Comments: PATIENT WAS FASTINGPERFORMED BY: [employer]70 [facility] [id number] (54455) AND (01960) Microalb/Creat Ratio <6.3 {mg/g_creat} (Normal) Range: 0.0-30.0 Microalbumin, Urine <3.0 ug/mL (Normal) Range: 0.0-17.0 Creatinine, Urine 47.3 mg/dL (Normal) Range: 15.0-278.0 :25 METABOLIC PANEL, COMPREHENSIVE Comments: PATIENT WAS FASTINGPERFORMED BY: [employer] [place] [id number] (63343) ALT (SGPT) 10 [iU]/L (Normal) Range: 0-32 AST (SGOT) 14 [iU]/L (Normal) Range: 0-40 Alkaline Phosphatase, S 37 [iU]/L (Abnormal) Range: 39-117 Bilirubin, Total 0.2 mg/dL (Normal) Range: 0.0-1.2 A/G Ratio 2.0 (Normal) Range: 1.1-2.5 Globulin, Total 2.3 g/dL (Normal) Range: 1.5-4.5 Albumin, Serum 4.5 g/dL (Normal) Range: 3.5-5.5 Protein, Total, Serum 6.8 g/dL (Normal) Range: 6.0-8.5 Calcium, Serum 9.4 mg/dL (Normal) Range: 8.7-10.2 Carbon Dioxide, Total 23 mmol/L (Normal) Range: 18-29 Chloride, Serum 105 mmol/L (Normal) Range: 97-108 Potassium, Serum 4.4 mmol/L (Normal) Range: 3.5-5.2 Sodium, Serum 142 mmol/L (Normal) Range: 134-144 BUN/Creatinine Ratio 15 (Normal) Range: 9-23 eGFR If Africn Am 113 mL/min/1.73 (Normal) eGFR If NonAfricn Am 98 mL/min/1.73 (Normal) Creatinine, Serum 0.75 mg/dL (Normal) Range: 0.57-1.00 BUN 11 mg/dL (Normal) Range: 6-24 Glucose, Serum 86 mg/dL (Normal) Range: 65-99 22-Plz-80841:25 LIPID PANEL (06477) Comments: PATIENT WAS FASTINGPERFORMED BY: [facility]CoH[facility] CenterPfgahl3606 [facility] [id number] LDL/HDL Ratio 1.0 {ratio_units} (Normal) Range: 0.0-3.2 Comments: LDL/HDL Ratio Men Women 1/2 Avg.Risk 1.0 1.5 Av g.Risk 3.6 3.2 2X Avg.Risk 6.2 5.0 3X Avg.Risk 8.0 6.1 LDL Cholesterol Calc 67 mg/dL (Normal) Range: 0-99 VLDL Cholesterol Tash 13 mg/dL (Normal) Range: 5-40 HDL Cholesterol 67 mg/dL (Normal) Comments: According to ATP-III Guidelines, HDL-C >59 mg/dL is considered anegative risk factor for CHD. Triglycerides 66 mg/dL (Normal) Range: 0-149 Cholesterol, Total 147 mg/dL (Normal) Range: 100-199 :25 CBC W/AUTO DIFF WBC Comments: PATIENT WAS FASTINGPERFORMED BY: [facility]CoH[facility] CenterNcxvyd2010 [facility] [id number] Information: [id number] (26809) Immature Grans (Abs) 0.0 {x10E3/uL} (Normal) Range: 0.0-0.1 Immature Granulocytes 0 % (Normal) Baso (Absolute) 0.0 {x10E3/uL} (Normal) Range: 0.0-0.2 Eos (Absolute) 0.3 {x10E3/uL} (Normal) Range: 0.0-0.4 Monocytes(Absolute) 0.5 {x10E3/uL} (Normal) Range: 0.1-0.9 Lymphs (Absolute) 3.4 {x10E3/uL} (Abnormal) Range: 0.7-3.1 Neutrophils (Absolute) 5.9 {x10E3/uL} (Normal) Range: 1.4-7.0 Basos 0 % (Normal) Eos 3 % (Normal) Monocytes 5 % (Normal) Lymphs 34 % (Normal) Neutrophils 58 % (Normal) Platelets 283 {x10E3/uL} (Normal) Range: 150-379 RDW 13.8 % (Normal) Range: 12.3-15.4 MCHC 33.0 g/dL (Normal) Range: 31.5-35.7 MCH 29.7 pg (Normal) Range: 26.6-33.0 MCV 90 fL (Normal) Range: 79-97 Hematocrit 44.3 % (Normal) Range: 34.0-46.6 Hemoglobin 14.6 g/dL (Normal) Range: 11.1-15.9 RBC 4.91 {x10E6/uL} (Normal) Range: 3.77-5.28 WBC 10.1 {x10E3/uL} (Normal) Range: 3.4-10.8 :01 CALCIFEDIOL (51208) Comments: PATIENT WAS FASTINGPERFORMED BY: [facility] Jxqtmq5479 [facility] [id number] Vitamin D, 25-Hydroxy 27.2 ng/mL (Abnormal) Range: 30.0-100.0 Comments: Vitamin D deficiency has been defined by the Jackman ofMedicine and an Endocrine Society practice guideline as alevel of serum 25-OH vitamin D less than 20 ng/mL (1,2).The Endocrine Society went on to further define vitamin Dinsufficiency as a level between 21 and 29 ng/mL (2).1. IOM (Jackman of Medicine). 2010. Dietary reference intakes for calcium and D. [place]: The National Academies Press.2. Danita MF, Bev NC, Merry NEW, et al. Evaluation, treatment, and prevention of vitamin D deficiency: an Endocrine Society clinical practice guideline. JCEM. 2010; 96(7):1911-30. 35-Guq-10161:01 CBC WITH MANUAL DIFF Comments: PATIENT WAS FASTINGPERFORMED BY: [facility] MediaJefferson Memorial HospitalRdvtuc3189 [facility] [id number] Information: [id number] (68400) Immature Grans (Abs) 0.0 {x10E3/uL} (Normal) Range: 0.0-0.1 Immature Granulocytes 0 % (Normal) Baso (Absolute) 0.0 {x10E3/uL} (Normal) Range: 0.0-0.2 Eos (Absolute) 0.2 {x10E3/uL} (Normal) Range: 0.0-0.4 Monocytes(Absolute) 0.5 {x10E3/uL} (Normal) Range: 0.1-0.9 Lymphs (Absolute) 2.6 {x10E3/uL} (Normal) Range: 0.7-3.1 Neutrophils (Absolute) 6.2 {x10E3/uL} (Normal) Range: 1.4-7.0 Basos 0 % (Normal) Eos 2 % (Normal) Monocytes 5 % (Normal) Lymphs 27 % (Normal) Neutrophils 66 % (Normal) Platelets 291 {x10E3/uL} (Normal) Range: 150-379 RDW 14.0 % (Normal) Range: 12.3-15.4 MCHC 32.6 g/dL (Normal) Range: 31.5-35.7 MCH 29.0 pg (Normal) Range: 26.6-33.0 MCV 89 fL (Normal) Range: 79-97 Hematocrit 47.3 % (Abnormal) Range: 34.0-46.6 Hemoglobin 15.4 g/dL (Normal) Range: 11.1-15.9 RBC 5.31 {x10E6/uL} (Abnormal) Range: 3.77-5.28 WBC 9.7 {x10E3/uL} (Normal) Range: 3.4-10.8 :01 Metabolic Panel, Comprehensive Comments: PATIENT WAS FASTINGPERFORMED BY: [facility]CoH[facility] CenterUovncq6867 [facility] [id number] (50788) ALT (SGPT) 12 [iU]/L (Normal) Range: 0-32 AST (SGOT) 14 [iU]/L (Normal) Range: 0-40 Alkaline Phosphatase, S 41 [iU]/L (Normal) Range: 39-117 Bilirubin, Total 0.2 mg/dL (Normal) Range: 0.0-1.2 A/G Ratio 1.8 (Normal) Range: 1.1-2.5 Globulin, Total 2.6 g/dL (Normal) Range: 1.5-4.5 Albumin, Serum 4.7 g/dL (Normal) Range: 3.5-5.5 Protein, Total, Serum 7.3 g/dL (Normal) Range: 6.0-8.5 Calcium, Serum 9.7 mg/dL (Normal) Range: 8.7-10.2 Carbon Dioxide, Total 22 mmol/L (Normal) Range: 18-29 Chloride, Serum 102 mmol/L (Normal) Range: 97-108 Potassium, Serum 5.0 mmol/L (Normal) Range: 3.5-5.2 Sodium, Serum 141 mmol/L (Normal) Range: 134-144 BUN/Creatinine Ratio 11 (Normal) Range: 9-23 eGFR If Africn Am 105 mL/min/1.73 (Normal) eGFR If NonAfricn Am 91 mL/min/1.73 (Normal) Creatinine, Serum 0.80 mg/dL (Normal) Range: 0.57-1.00 BUN 9 mg/dL (Normal) Range: 6-24 Glucose, Serum 96 mg/dL (Normal) Range: 65-99 :01 TSH (22579) Comments: PATIENT WAS FASTINGPERFORMED BY: [facility] [id number] TSH 2.590 {uIU/mL} (Normal) Range: 0.450-4.500 :01 Lipid Panel (62059) Comments: PATIENT WAS FASTINGPERFORMED BY: [facility] [id number] LDL/HDL Ratio 1.3 {ratio_units} (Normal) Range: 0.0-3.2 Comments: LDL/HDL Ratio Men Women 1/2 Avg.Risk 1.0 1.5 Av g.Risk 3.6 3.2 2X Avg.Risk 6.2 5.0 3X Avg.Risk 8.0 6.1 LDL Cholesterol Calc 75 mg/dL (Normal) Range: 0-99 VLDL Cholesterol Tash 11 mg/dL (Normal) Range: 5-40 HDL Cholesterol 59 mg/dL (Normal) Comments: According to ATP-III Guidelines, HDL-C >59 mg/dL is considered anegative risk factor for CHD. Triglycerides 56 mg/dL (Normal) Range: 0-149 Cholesterol, Total 145 mg/dL (Normal) Range: 100-199 :13 Rapid Flu (12961 x 2) Influenza A Ag neg (Normal) :38 LIPID PANEL (14870) Comments: PATIENT WAS FASTINGPERFORMED BY: [facility] [id number] Information: [id number] LDL/HDL Ratio 1.0 {ratio_units} (Normal) Range: 0.0-3.2 LDL Cholesterol Calc 53 mg/dL (Normal) Range: 0-99 VLDL Cholesterol Tash 36 mg/dL (Normal) Range: 5-40 HDL Cholesterol 53 mg/dL (Normal) Comments: According to ATP-III Guidelines, HDL-C >59 mg/dL is considered anegative risk factor for CHD. Triglycerides 180 mg/dL (Abnormal) Range: 0-149 Cholesterol, Total 142 mg/dL (Normal) Range: 100-199 13-Ouc-94783:38 TSH (49281) Comments: PATIENT WAS FASTINGPERFORMED BY: [place] [id number] [facility] [id number] TSH 1.940 {uIU/mL} (Normal) Range: 0.450-4.500 :01 LIPID PANEL (55910) Comments: PATIENT WAS FASTINGPERFORMED BY: [place] 4181070 [facility] [id number] Information: [id number] LDL/HDL Ratio 1.9 {ratio_units} (Normal) Range: 0.0-3.2 LDL Cholesterol Calc 98 mg/dL (Normal) Range: 0-99 VLDL Cholesterol Tash 32 mg/dL (Normal) Range: 5-40 HDL Cholesterol 51 mg/dL (Normal) Comments: According to ATP-III Guidelines, HDL-C >59 mg/dL is considered anegative risk factor for CHD. Triglycerides 160 mg/dL (Abnormal) Range: 0-149 Cholesterol, Total 181 mg/dL (Normal) Range: 100-199 :09 LIPID PANEL (53943) Comments: PATIENT WAS FASTINGPERFORMED BY: [facility] [id number] Information: [id number] LDL/HDL Ratio 1.0 {ratio_units} (Normal) Range: 0.0-3.2 LDL Cholesterol Calc 54 mg/dL (Normal) Range: 0-99 VLDL Cholesterol Tash 22 mg/dL (Normal) Range: 5-40 HDL Cholesterol 56 mg/dL (Normal) Comments: According to ATP-III Guidelines, HDL-C >59 mg/dL is considered anegative risk factor for CHD. Triglycerides 112 mg/dL (Normal) Range: 0-149 Cholesterol, Total 132 mg/dL (Normal) Range: 100-199 57-Hfz-112651:15 Rapid Flu (80798 x 2) Influenza A Ag negative (Normal) 14-Ycf-264835:09 Influenza A&B Viral Comments: PATIENT NOT FASTINGPERFORMED BY: [place] 4181070 [facility] [id number] Information: SRC:NOS [id number] Culture (28358) Viral Culture,Rapid,Influenza FLUABN (Normal) Comments: Negative:No Influenza A or B detected. :12 HEPATIC FUNCTION PANEL Comments: PATIENT WAS FASTINGPERFORMED BY: [address] [id number] Information: [id number] (56933) ALT (SGPT) 9 [iU]/L (Normal) Range: 0-32 AST (SGOT) 12 [iU]/L (Normal) Range: 0-40 Alkaline Phosphatase, S 44 [iU]/L (Normal) Range: 25-150 Bilirubin, Direct 0.05 mg/dL (Normal) Range: 0.00-0.40 Albumin, Serum 4.5 g/dL (Normal) Range: 3.5-5.5 Bilirubin, Total 0.2 mg/dL (Normal) Range: 0.0-1.2 Protein, Total, Serum 7.2 g/dL (Normal) Range: 6.0-8.5 :12 LIPID PANEL (17960) Comments: PATIENT WAS FASTINGPERFORMED BY: [address] [id number] LDL/HDL Ratio 1.6 {ratio_units} (Normal) Range: 0.0-3.2 LDL Cholesterol Calc 87 mg/dL (Normal) Range: 0-99 VLDL Cholesterol Tash 24 mg/dL (Normal) Range: 5-40 HDL Cholesterol 55 mg/dL (Normal) Comments: According to ATP-III Guidelines, HDL-C >59 mg/dL is considered anegative risk factor for CHD. Cholesterol, Total 166 mg/dL (Normal) Range: 100-199 Triglycerides 120 mg/dL (Normal) Range: 0-149 :33 TSH ([id number]) Comments: PATIENT NOT FASTINGPERFORMED BY: [address] [id number] TSH 2.130 {uIU/mL} (Normal) Range: 0.450-4.500 :33 HEPATIC FUNCTION PANEL Comments: PATIENT NOT FASTINGPERFORMED BY: [place] [id number] [facility] [id number] ([id number]) Bilirubin, Direct 0.14 mg/dL (Normal) Range: 0.00-0.40 :33 Metabolic Panel, Comments: PATIENT NOT FASTINGPERFORMED BY: [id number] [id number] Information: [id number] Comprehensive ([id number]) ALT (SGPT) 6 [iU]/L (Normal) Range: 0-40 AST (SGOT) 11 [iU]/L (Normal) Range: 0-40 Alkaline Phosphatase, S 39 [iU]/L (Normal) Range: 25-150 Bilirubin, Total 0.4 mg/dL (Normal) Range: 0.0-1.2 A/G Ratio 1.8 (Normal) Range: 1.1-2.5 Globulin, Total 2.6 g/dL (Normal) Range: 1.5-4.5 Albumin, Serum 4.6 g/dL (Normal) Range: 3.5-5.5 Protein, Total, Serum 7.2 g/dL (Normal) Range: 6.0-8.5 Calcium, Serum 9.5 mg/dL (Normal) Range: 8.7-10.2 Carbon Dioxide, Total 21 mmol/L (Normal) Range: 20-32 Chloride, Serum 103 mmol/L (Normal) Range: 97-108 Potassium, Serum 4.2 mmol/L (Normal) Range: 3.5-5.2 Sodium, Serum 139 mmol/L (Normal) Range: 134-144 BUN/Creatinine Ratio 14 (Normal) Range: 8-20 eGFR If Africn Am 114 mL/min/1.73 (Normal) eGFR If NonAfricn Am 99 mL/min/1.73 (Normal) Creatinine, Serum 0.76 mg/dL (Normal) Range: 0.57-1.00 BUN 11 mg/dL (Normal) Range: 6-20 Glucose, Serum 86 mg/dL (Normal) Range: 65-99 :33 Lipid Panel ([id number]) Comments: PATIENT NOT FASTINGPERFORMED BY: [facility] [facility] [id number] LDL/HDL Ratio 1.1 {ratio_units} (Normal) Range: 0.0-3.2 LDL Cholesterol Calc 57 mg/dL (Normal) Range: 0-99 Comments: Please note reference interval change VLDL Cholesterol Tash 19 mg/dL (Normal) Range: 5-40 HDL Cholesterol 52 mg/dL (Normal) Comments: According to ATP-III Guidelines, HDL-C >59 mg/dL is considered anegative risk factor for CHD. Triglycerides 94 mg/dL (Normal) Range: 0-149 Comments: Please note reference interval change Cholesterol, Total 128 mg/dL (Normal) Range: 100-199 Comments: Please note reference interval change :0 BID 0.14 mg/dL (Normal) Range: 0.00-0.30 1 :01 CMP Comments: appt 09/14/11 GAP 14 (Normal) Range: 5-15 CO2 24.0 mmol/L (Normal) Range: 21.0-32.0 CL 104 mmol/L (Normal) Range: 98-107 K 4.1 mmol/L (Normal) Range: 3.5-5.1 NA 142 mmol/L (Normal) Range: 136-145 BIT 0.40 mg/dL (Normal) Range: 0.00-1.00 ALT 15 U/L (Normal) Range: 12-78 ALK 31 U/L (Abnormal) Range: 50-136 AST 13 U/L (Abnormal) Range: 15-37 CA 8.6 mg/dL (Normal) Range: 8.5-10.1 AG 1.3 {RATIO} (Normal) Range: 0.9-2.4 GLOB 3.2 g/dL (Normal) Range: 2.7-4.2 ALB 4.3 g/dL (Normal) Range: 3.4-5.0 TPROT 7.5 g/dL (Normal) Range: 6.4-8.2 BC 16.3 {RATIO} (Normal) Range: 10-20 GFRAA 103 mL/min (Normal) GFR 85 mL/min (Normal) CREAT 0.8 mg/dL (Normal) Range: 0.6-1.0 BUN 13 mg/dL (Normal) Range: 7-18 GLU 95 mg/dL (Normal) Range: 70-110 :01 LIPID LDL 67 mg/dL (Normal) Range: 0-130 VLDL 13 mg/dL (Normal) Range: 5-40 HDL 43 mg/dL (Normal) Comments: Reference Range HDL <40 mg/dL Low HDL Cholesterol HDL >or= 60 mg/dL High HDL Cholesterol TRIG 66 mg/dL (Normal) Comments: Serum Triglycerides Reference Interval Normal <150 mg/dL Borderline high 150 - 199 mg/dL High 200 - 499 mg/dL Very High > or = 500 mg/dL CHOL 123 mg/dL (Normal) Comments: <200 mg/dL Desirable 200-240 mg/dL Borderline >240 mg/dL High Risk :01 TSH 2.86 {uIU/mL} (Normal) Range: 0.358-3.74 :00 BRAIN/HEAD W/WO CONTRAST Radiology Report See Note (Normal) Comments: PROCEDURE: CT BRAIN WITH AND WITHOUT CONTRAST REASON FOR EXAM: Female, 41 years old. Headache TECHNIQUE: Transaxial CT imaging of the brain was performed pre andpostcontrast administr ation. The examination was performed with intravenousadministration of 50ML ml of Isovue 370 contrast material. COMPARISON: None. FINDINGS:Normal size of the ventricles and extra-axial spaces for the patient'sag e.Normal white matter tracts of the supratentorial brain. Normal basalganglia and thalami. Normal brainstem. Normal cerebellum. There is no demonstrated extra-axial, intraparenchymal, orintraventricu larhemorrhage. There are no findings of an acute ischemic infarction. There is nodemonstrated enhancing abnormality. Normal calvarium. There is no demonstrated fracture. Normal soft tissue structures. Normal visualized paranasal sinuses. IMPRESSION:Normal enhanced and unenhanced CT scan of the brain. Signed:Marquis Rutherford D.O.September 09, 2011 at 6:25:06 PM EDTElectronically Signed IF/IF Professional Interpr etation Provided By: [facility] [employer], , To consult with a radiologist regarding this report, please call our [id number] line @ D ictated on 09/09/11 1739 by Tyler Rutherford DOranscribed on 09/09/111828 by ITS IMPORTSign by Marquis Rutherford DO on 09/09/11 1830 Sign by: Marquis Rutherford DO :02 Rapid Strep Test, Office (67743) Rapid Strep Test, Office Negative (Normal) :01 CUT See Note (Normal) Comments: Normal throat gena isolated. No beta-hemolyticstreptococcus isolated. :25 LIPID VLDL 26 mg/dL (Normal) Range: 5-40 LDL 56 mg/dL (Normal) Range: 0-130 HDL 47 mg/dL (Normal) Comments: Reference Range HDL <40 mg/dL Low HDL Cholesterol HDL >or= 60 mg/dL High HDL Cholesterol TRIG 132 mg/dL (Normal) Comments: Serum Triglycerides Reference Interval Normal <150 mg/dL Borderline high 150 - 199 mg/dL High 200 - 499 mg/dL Very High > or = 500 mg/dL CHOL 129 mg/dL (Normal) Comments: <200 mg/dL Desirable 200-240 mg/dL Borderline >240 mg/dL High Risk :39 TSH 1.49 {uIU/mL} (Normal) Range: 0.358-3.74 :39 T4 THYROXIN 11.6 ug/dL (Normal) Range: 4.8-13.9 :39 T3 TOTAL 1.4 ng/mL (Normal) Range: 0.7-1.9 :39 COMP METABOLIC GAP 9 (Normal) Range: 5-15 CO2 28.0 mmol/L (Normal) Range: 21.0-32.0 CL 102 mmol/L (Normal) Range: 98-107 K 4.5 mmol/L (Normal) Range: 3.5-5.1 NA 139 mmol/L (Normal) Range: 136-145 T BILI 0.20 mg/dL (Normal) Range: 0.00-1.00 ALT 19 U/L (Normal) Range: 12-78 ALK P 41 U/L (Abnormal) Range: 50-136 AST 7 U/L (Abnormal) Range: 15-37 CA 9.6 mg/dL (Normal) Range: 8.5-10.1 A/G 1.3 {RATIO} (Normal) Range: 0.9-2.4 GLOB 3.2 g/dL (Normal) Range: 2.7-4.2 ALB 4.3 g/dL (Normal) Range: 3.4-5.0 T PROT 7.5 g/dL (Normal) Range: 6.4-8.2 BUN/CRE 10.0 {RATIO} (Normal) Range: 10-20 EST GFR - AA 103 mL/min (Normal) EST GFR 85 mL/min (Normal) CREAT,SERUM 0.8 mg/dL (Normal) Range: 0.6-1.0 BUN 8 mg/dL (Normal) Range: 7-18 GLU 88 mg/dL (Normal) Range: 70-110 3-Bcj-059880:31 VALPROIC ACID 30 ug/mL (Abnormal) Range: 50-100 01-Dec-20108:50 Urinalysis, Office (64571) UA - BILIRUBIN Negative (Normal) UA - BLOOD Hemolyzed Trace (Normal) UA - GLUCOSE Negative (Normal) UA - KETONES Negative mg/dL (Normal) UA - LEUKOCYTE ESTERASE Negative (Normal) UA - NITRITE Negative (Normal) UA - PH 6.5 (Normal) UA - PROTEIN Negative mg/dL (Normal) UA - SPECIFIC GRAVITY 1.025 (Normal) URINE UROBILINGN ALEXANDRE TIMED Normal mg/dL (Normal) :00 CULTURE, URINE URINE CULTURE See Note {CFU/mL} (Normal) Comments: COLONY COUNT 1000-10,000 ORGANISM 1: MIXED GRAM POSITIVE ORGANISMS 16-Jsj-41998:00 CHEST, PA AND LATERAL Radiology Report See Note (Normal) Comments: CLINICAL:Female, 40 years old. The patient presented with cough, shortness ofbreath and wheezing. X-RAY EXAMINATION - CHEST TECHNIQUE:PA and lateral views of the chest. COMPARISON:None. FINDINGS: The lungs are expanded. There is no demonstrated pulmonary parenchymalabnormality. There is evidence of calcified old granulomatous disease.There is no demonstrated pleural abnormality. The heart is normal in size and morphology. Normal mediastinum and jessica. Normal visualized pulmonary arteries. Normal visualized aortic arch anddescending thoracic aorta. Normal visualized thoracic spine. IMPRESSION:Norm al x-ray examination of the chest. Dictated on 06/25/10 1103 by Zeke Gallowayranscribed on 06/25/10 1543 by ITS IMPORTSign by Raffaele Galloway on 06/25/10 1544 Sign by: Raffaele Galloway 00-Faq-77137:56 Metabolic Panel, Comments: PATIENT WAS FASTINGPERFORMED BY: [facility] Bfyoce7277 [facility] [id number] Information: [id number] Comprehensive (29764) ALT (SGPT) 13 [iU]/L (Normal) Range: 0-40 Alkaline Phosphatase, S 36 [iU]/L (Normal) Range: 25-150 AST (SGOT) 19 [iU]/L (Normal) Range: 0-40 A/G Ratio 1.5 (Normal) Range: 1.1-2.5 Bilirubin, Total 0.2 mg/dL (Normal) Range: 0.0-1.2 Globulin, Total 2.8 g/dL (Normal) Range: 1.5-4.5 Albumin, Serum 4.3 g/dL (Normal) Range: 3.5-5.5 Protein, Total, Serum 7.1 g/dL (Normal) Range: 6.0-8.5 Calcium, Serum 9.3 mg/dL (Normal) Range: 8.7-10.2 Carbon Dioxide, Total 23 mmol/L (Normal) Range: 20-32 Chloride, Serum 106 mmol/L (Normal) Range: 97-108 Potassium, Serum 4.0 mmol/L (Normal) Range: 3.5-5.2 Sodium, Serum 142 mmol/L (Normal) Range: 135-145 BUN/Creatinine Ratio 9 (Normal) Range: 8-20 eGFR AfricanAmerican >59 mL/min/1.73 Comments: Note: Persistent reduction for 3 months or more in an eGFR<60 mL/min/1.73 m2 defines CKD. Patients with eGFR values>/=60 mL/min/1.73 m2 may also have CKD if evidence of persistentproteinuria is (Normal) present. Additional information may be found [email or web address]. eGFR >59 mL/min/1.73 (Normal) BUN 8 mg/dL (Normal) Range: 6-20 Creatinine, Serum 0.94 mg/dL (Normal) Range: 0.57-1.00 Glucose, Serum 87 mg/dL (Normal) Range: 65-99 84-Kqx-70336:56 Lipid Panel (65593) Comments: PATIENT WAS FASTINGPERFORMED BY: [place] [facility] networkHackensack University Medical CenterYprfju8196 [facility] [id number] LDL Cholesterol Calc 68 mg/dL (Normal) Range: 0-99 LDL/HDL Ratio 1.2 {ratio_units} (Normal) Range: 0.0-3.2 VLDL Cholesterol Tash 27 mg/dL (Normal) Range: 5-40 HDL Cholesterol 55 mg/dL (Normal) Comments: According to ATP-III Guidelines, HDL-C >59 mg/dL is considered anegative risk factor for CHD. Triglycerides 133 mg/dL (Normal) Range: 0-149 Cholesterol, Total 150 mg/dL (Normal) Range: 100-199 45-Vwe-322952:38 URINE RANGEL CULTURE-ALEXANDRE COL Comments: PATIENT NOT FASTINGPERFORMED BY: [facility] Tvdbfk8782 [facility] [id number] Information: SRC:UR [id number] COUNT (49202) Antimicrobial MIHEAD (Normal) Comments: S = Susceptible; I = Intermediate; R = Resistant P = Positive; N = Negative MICS are expressed in micrograms per mL Antibiotic RSLT#1 RSLT#2 Susceptibility RSLT#3 RSLT#4Amikacin SAmoxicillin/Clavulanic Acid SAmpicillin SCefazolin SCefepime SCefoxitin SCeftriaxone SCiprofloxacin SESBL NErtapenem SGentamicin SImipenem S Levofloxacin SNitrofurantoin STobramycin STrimethoprim/Sulfa S Result 1 Escherichia coli Comments: Greater than 100,000 colony forming units per mL (Normal) Urine Final report (Normal) Culture,Comprehensive 94-Yqs-611382:16 Urinalysis, Office (54741) UA - BILIRUBIN Negative (Normal) UA - BLOOD Hemolyzed Large (Normal) UA - GLUCOSE Negative (Normal) UA - KETONES Negative mg/dL (Normal) UA - LEUKOCYTE ESTERASE Large (Normal) UA - NITRITE Negative (Normal) UA - PH 6.0 (Normal) UA - PROTEIN 100 mg/dL (Normal) UA - SPECIFIC GRAVITY 1.025 (Normal) URINE UROBILINGN ALEXANDRE TIMED Normal mg/dL (Normal) 61-Joq-970375:03 METABOLIC PANEL, Comments: PATIENT NOT FASTINGPERFORMED BY: TOBIN [facility] Thfxxq5273 [facility] [id number] Information: [id number] COMPREHENSIVE (66117) ALT (SGPT) 15 [iU]/L (Normal) Range: 0-40 AST (SGOT) 22 [iU]/L (Normal) Range: 0-40 A/G Ratio 1.8 (Normal) Range: 1.1-2.5 Albumin, Serum 3.9 g/dL (Normal) Range: 3.5-5.5 Alkaline Phosphatase, S 33 [iU]/L (Normal) Range: 25-150 Bilirubin, Total 0.2 mg/dL (Normal) Range: 0.0-1.2 Globulin, Total 2.2 g/dL (Normal) Range: 1.5-4.5 Calcium, Serum 9.1 mg/dL (Normal) Range: 8.7-10.2 Carbon Dioxide, Total 23 mmol/L (Normal) Range: 20-32 Protein, Total, Serum 6.1 g/dL (Normal) Range: 6.0-8.5 Chloride, Serum 104 mmol/L (Normal) Range: 97-108 Potassium, Serum 4.3 mmol/L (Normal) Range: 3.5-5.2 BUN/Creatinine Ratio 9 (Normal) Range: 8-27 Sodium, Serum 139 mmol/L (Normal) Range: 135-145 Creatinine, Serum 0.78 mg/dL (Normal) Range: 0.57-1.00 eGFR >59 mL/min/1.73 (Normal) eGFR AfricanAmerican >59 mL/min/1.73 Comments: Note: Persistent reduction for 3 months or more in an eGFR<60 mL/min/1.73 m2 defines CKD. Patients with eGFR values>/=60 mL/min/1.73 m2 may also have CKD if evidence of persistentproteinuria is (Normal) present. Additional information may be found [email or web address]. BUN 7 mg/dL (Normal) Range: 5-26 Glucose, Serum 71 mg/dL (Normal) Range: 65-99 :38 TSH (53017) Comments: PATIENT NOT FASTINGPERFORMED BY: [facility] [id number] TSH 1.320 {uIU/mL} (Normal) Range: 0.450-4.500 :38 LIPID PANEL (49636) Comments: PATIENT NOT FASTINGPERFORMED BY: [place] 4181070 [facility] [id number] Information: ADD [id number] AND DRAW FEE 99 6660 LDL Cholesterol Calc 61 mg/dL (Normal) Range: 0-99 LDL/HDL Ratio 1.3 {ratio_units} (Normal) Range: 0.0-3.2 VLDL Cholesterol Tash 28 mg/dL (Normal) Range: 5-40 HDL Cholesterol 47 mg/dL (Normal) Comments: According to ATP-III Guidelines, HDL-C >59 mg/dL is considered anegative risk factor for CHD. Triglycerides 141 mg/dL (Normal) Range: 0-149 Cholesterol, Total 136 mg/dL (Normal) Range: 100-199 26-Jfb-670977:00 C-REACTIVE PROTEIN (95732) Comments: PATIENT NOT FASTINGPERFORMED BY: TOBIN [facility]6[address] [facility] [id number] C-Reactive Protein, Quant 9.8 mg/L (Abnormal) Range: 0.0-4.9 04-Zer-164842:00 SED RATE ERYTHROCYTE (60642) Comments: PATIENT NOT FASTINGPERFORMED BY: [place] 4181070 [facility] [id number] Sedimentation Rate-Westergren 5 mm/h (Normal) Range: 0-20 50-Pzp-822160:00 CBC (AUTO) (89232) Comments: PATIENT NOT FASTINGPERFORMED BY: [facility] [id number] Information: ADD [id number] AND DRAW FEE 99 6660 MCH 29.7 pg (Normal) Range: 27.0-34.0 MCHC 34.8 g/dL (Normal) Range: 32.0-36.0 MCV 85 fL (Normal) Range: 80-98 Platelets 306 {x10E3/uL} (Normal) Range: 140-415 RDW 15.3 % (Abnormal) Range: 11.7-15.0 Hematocrit 40.3 % (Normal) Range: 34.0-44.0 Hemoglobin 14.0 g/dL (Normal) Range: 11.5-15.0 RBC 4.72 {x10E6/uL} (Normal) Range: 3.80-5.10 WBC 14.1 {x10E3/uL} (Abnormal) Range: 4.0-10.5 82-Xpr-336179:02 CBC With Differential/Platelet Comments: PERFORMED BY: [facility] Mmnopu3135 [facility] [id number] Baso (Absolute) 0.0 {x10E3/uL} (Normal) Range: 0.0-0.2 Eos (Absolute) 0.2 {x10E3/uL} (Normal) Range: 0.0-0.4 Lymphs (Absolute) 2.0 {x10E3/uL} (Normal) Range: 0.7-4.5 Monocytes(Absolute) 0.5 {x10E3/uL} (Normal) Range: 0.1-1.0 Neutrophils (Absolute) 9.2 {x10E3/uL} Range: 1.8-7.8 (Abnormal) Basos 0 % (Normal) Range: 0-3 Eos 2 % (Normal) Range: 0-7 Monocytes 4 % (Normal) Range: 4-13 Lymphs 17 % (Normal) Range: 14-46 Neutrophils 77 % (Abnormal) Range: 40-74 Platelets 321 {x10E3/uL} (Normal) Range: 140-415 MCHC 33.4 g/dL (Normal) Range: 32.0-36.0 RDW 15.9 % (Abnormal) Range: 11.7-15.0 Hematocrit 36.1 % (Normal) Range: 34.0-44.0 MCH 28.5 pg (Normal) Range: 27.0-34.0 MCV 85 fL (Normal) Range: 80-98 Hemoglobin 12.1 g/dL (Normal) Range: 11.5-15.0 RBC 4.23 {x10E6/uL} Range: 3.80-5.10 (Normal) WBC 11.9 {x10E3/uL} Range: 4.0-10.5 (Abnormal) :5 C DIF TOXIN See Note (Normal) Comments: PATIENT COLLECTED STOOL SPECIMEN AT 1310 5 :55 CBC Comments: PATIENT COLLECTED STOOL SPECIMEN AT 1310 MCH 28.7 pg (Normal) Range: 27.0-32.0 MCHC 33.8 g/dL (Normal) Range: 32-36 MPV 7.7 fL (Normal) Range: 6.5-12.0 PLT 337 K/mm3 (Normal) Range: 150-450 RDW 15.3 % (Abnormal) Range: 11.6-14.6 HCT 38.1 % (Normal) Range: 37-47 HGB 12.9 g/dL (Normal) Range: 12.0-16.0 MCV 84.9 fL (Normal) Range: 81-99 RBC 4.49 {M/mm3} (Normal) Range: 4.2-5.4 WBC 20.3 K/mm3 (Abnormal) Range: 4.4-11.0 :55 O AND P See Note (Normal) Comments: PATIENT COLLECTED STOOL SPECIMEN AT 1310 Comments: OVA AND PARASITES EXAM, ROUTINEThese results were obtainedusing wet preparation(s) andtrichrome stained smear. Thistest does not include testingfor Crytosporidium parvum,Cyclospora, or Microsporidia.__ TESTING PERFORMED AT [facility]. ORIGINAL REPORT ONFILE IN LAB CONTAINS ADDITIONAL TEST SITE INFORMATION. OVA/ PARASITES EXAM NO OVA, CYSTS, OR PARASITES FOUND. :30 CUL STOOL/SHIG CULTURE, STOOL See Note (Normal) Comments: No Salmonella, Shigella, Yersinia or Campylobacter isolated.No significant amount of Staphylococcus aureusor yeast-like organisms isolated. SHIGA-TOXIN See Note (Normal) Comments: SHIGA TOXIN 1 AND SHIGA TOXIN 2 NOT DETECTED 14-Rqd-653824:30 OCCULT BLD,iFOB See Note (Abnormal) Comments: OCCULT BLOOD POSITIVE :30 WBC,STOOL See Note (Normal) Comments: FECAL WBCs NONE SEEN 83-Tdm-993424:06 Rapid Flu (98495 x 2) INFLUENZA IMMUNOASSY DIRECT OPTICAL OBSERV negative (Normal) 9-Fwd-418017:36 HEPATIC FUNCTION PANEL Comments: PATIENT NOT FASTINGClinical Information: ADD [id number] PERFORMED BY: [address] [id number] (61435) Albumin, Serum 4.4 g/dL (Normal) Range: 3.5-5.5 Alkaline Phosphatase, S 39 [iU]/L (Normal) Range: 25-150 ALT (SGPT) 12 [iU]/L (Normal) Range: 0-40 AST (SGOT) 14 [iU]/L (Normal) Range: 0-40 Bilirubin, Direct 0.08 mg/dL (Normal) Range: 0.00-0.40 Bilirubin, Total 0.2 mg/dL (Normal) Range: 0.1-1.2 Protein, Total, Serum 7.2 g/dL (Normal) Range: 6.0-8.5 7-Lcy-631530:40 INFCT AGT ANTIGEN DIRECT FLOURESCENT ASSAY; INFLUENZA B Comments: neg VIRUS (03185) INFCT AGT ANTIGEN DIRECT FLOURESCENT ASSAY; I neg (Normal) 96-Bmi-414329:08 Chlamydia/GC Amplification Comments: Clinical Information: SRC:VA PERFORMED BY: [facility]6370 [facility] [id number] Chlamydia trachomatis, MURALI Negative (Normal) Neisseria gonorrhoeae, MURALI Negative (Normal) Please note: SPRCS (Normal) Comments: Acceptable specimens for this test are male urethral swab,endocervical swab and liquid based pap specimens, vaginal swabs inAPTIMA transports and first void urine. See online Directory ofServices for te st number for rectal and pharyngeal specimens. 16-Alq-139264:02 Urinalysis, Office (86366) UA - BILIRUBIN Negative (Normal) UA - BLOOD Negative (Normal) UA - GLUCOSE Negative (Normal) UA - KETONES Negative mg/dL (Normal) UA - LEUKOCYTE ESTERASE Negative (Normal) UA - NITRITE Negative (Normal) UA - PH 7.5 (Normal) UA - PROTEIN Negative mg/dL (Normal) UA - SPECIFIC GRAVITY 1.000 (Normal) URINE UROBILINGN ALEXANDRE TIMED Normal mg/dL (Normal) 44-Rrz-179000:11 CBC with manual diff (92494) Comments: PATIENT NOT FASTINGClinical Information: ADD DRAW FEE 620500 ADD J 80992 PERFORMED BY: [facility] Zgdrlq4494 [facility] [id number] Baso (Absolute) 0.0 {x10E3/uL} (Normal) Range: 0.0-0.2 Basos 0 % (Normal) Range: 0-3 Eos 2 % (Normal) Range: 0-7 Eos (Absolute) 0.3 {x10E3/uL} (Normal) Range: 0.0-0.4 Hematocrit 41.7 % (Normal) Range: 34.0-44.0 Hemoglobin 13.9 g/dL (Normal) Range: 11.5-15.0 Lymphs 28 % (Normal) Range: 14-46 Lymphs (Absolute) 3.6 {x10E3/uL} (Normal) Range: 0.7-4.5 MCH 28.4 pg (Normal) Range: 27.0-34.0 MCHC 33.2 g/dL (Normal) Range: 32.0-36.0 MCV 86 fL (Normal) Range: 80-98 Monocytes 3 % (Abnormal) Range: 4-13 Monocytes(Absolute) 0.4 {x10E3/uL} (Normal) Range: 0.1-1.0 Neutrophils 67 % (Normal) Range: 40-74 Neutrophils (Absolute) 8.6 {x10E3/uL} (Abnormal) Range: 1.8-7.8 Platelets 368 {x10E3/uL} (Normal) Range: 140-415 Comments: Effective September 17, 2008, the reference interval for Platelet Count, will be changing to: . 0 - 7 days 150 - 381 8 - 30 days 150 - 477 31- 90 days 150 - 579 91 days - up 1 year 150 - 496 1 - 7 years 150 - 440 8 - 17 years 150 - 349 Adult 140 - 415 RBC 4.87 {x10E6/uL} (Normal) Range: 3.80-5.10 RDW 14.7 % (Normal) Range: 11.7-15.0 WBC 12.9 {x10E3/uL} (Abnormal) Range: 4.0-10.5 87-Cdq-934977:41 Rapid Flu (65938 x 2) Comments: done INFLUENZA IMMUNOASSY DIRECT OPTICAL OBSERV Negative (Normal) 2-Xdt-204667:05 METABOLIC PANEL, COMPREHENSIVE Comments: PATIENT NOT FASTINGClinical Information: [id number] PERFORMED BY: [facility] Wfwsst2278 [facility] [id number] (56788) A/G Ratio 1.6 (Normal) Range: 1.1-2.5 Albumin, Serum 4.5 g/dL (Normal) Range: 3.5-5.5 Alkaline Phosphatase, S 44 [iU]/L (Normal) Range: 25-150 ALT (SGPT) 13 [iU]/L (Normal) Range: 0-40 AST (SGOT) 13 [iU]/L (Normal) Range: 0-40 Bilirubin, Total 0.2 mg/dL (Normal) Range: 0.1-1.2 BUN 8 mg/dL (Normal) Range: 5-26 BUN/Creatinine Ratio 9 (Normal) Range: 8-27 Calcium, Serum 9.8 mg/dL (Normal) Range: 8.5-10.6 Carbon Dioxide, Total 22 mmol/L (Normal) Range: 20-32 Chloride, Serum 107 mmol/L (Normal) Range: 97-108 Creatinine, Serum 0.90 mg/dL (Normal) Range: 0.57-1.00 Globulin, Total 2.9 g/dL (Normal) Range: 1.5-4.5 Glom Filt Rate, Est >59 mL/min/1.73 (Normal) Glucose, Serum 87 mg/dL (Normal) Range: 65-99 If -Fijian >59 mL/min/1.73 Comments: Note: Persistent reduction for 3 months or more in an eGFR<60 mL/min/1.73 m2 defines CKD. Patients with eGFR values>/=60 mL/min/1.73 m2 may also have CKD if evidence of persistentproteinur ia is (Normal) present. Additional information may be found [email or web address]. Potassium, Serum 4.5 mmol/L (Normal) Range: 3.5-5.2 Protein, Total, Serum 7.4 g/dL (Normal) Range: 6.0-8.5 Sodium, Serum 141 mmol/L (Normal) Range: 135-145 0-Ent-891520:05 TSH (44248) Comments: PATIENT NOT FASTINGPERFORMED BY: LabCoHackensack University Medical CenterLjfjsv2680 [facility] [id number] TSH 1.340 {uIU/mL} (Normal) Range: 0.450-4.500 :05 LIPID PANEL (94876) Comments: PATIENT NOT FASTINGPERFORMED BY: LabCoHackensack University Medical CenterUkzsng5487 [facility] [id number] Cholesterol, Total 151 mg/dL (Normal) Range: 100-199 HDL Cholesterol 55 mg/dL (Normal) Comments: According to ATP-III Guidelines, HDL-C >59 mg/dL is considered anegative risk factor for CHD. LDL Cholesterol Calc 72 mg/dL (Normal) Range: 0-99 LDL/HDL Ratio 1.3 {ratio_units} (Normal) Range: 0.0-3.2 Triglycerides 121 mg/dL (Normal) Range: 0-149 VLDL Cholesterol Tash 24 mg/dL (Normal) Range: 5-40 :25 Urine Test, Office (17933) Urine Test, Office Negative (Normal) :43 PELVIC (NON-PREG) (HP) Radiology Report See Note (Normal) Comments: Exam Number: [id number] TRANSABDOMINAL PELVIC ULTRASOUND CLINICAL INFORMATIONDysfunctional uterine bleeding. Transabdominal images of the pelvis were obtained. Uterine dimensionsare approximately 6.5 x 1.9 x 3 cm in longitudinal, AP and transversedimensions. Endometrial thickness is measured at approximately 2 mm. There are no focal findings relative to the uterus. There is nonotable free fluid seen in the pelvis. The left ovary measured 3.1 x 1.7 x 2.4 cm and contains a folliclemeasuring 1.7 x 0.9 x 1.8 cm. The right ovary measures 2.7 x 2.4 x2.1 cm and also contains a follicle. There are no ad nexal massesevident. IMPRESSIONUnremarkable pelvic ultrasound. Reported By: NOEL MATTA M.D. :35 Luteinizing Hormone(LH), S Comments: PATIENT NOT FASTINGPERFORMED BY: [facility] [id number] LH 7.2 m[iU]/mL (Normal) Range: 0.0-76.3 Comments: Male Female 0- 1 yr. 0.5 - 1.9 0.0 - 0.5 2- 5 yrs. 0.0 - 0.5 0.0 - 0.5 6- 10 yrs. 0.0 - 0.5 0.0 - 0.5 11- 19 yrs. 0.5 - 5.3 0.5 - 9.0 20- 69 yrs. 1.5 - 9.3 0.0 - 76.3 70-100 y rs. 3.1 - 34.6 5.0 - 52.3 Female Follicular 1.9 - 12.5 Midcycle 8.7 - 7 6.3 Luteal 0.5 - 16.9 0.0 - 1.5 Postmenopausal 15. 9 - 54.0 Contraceptives 0.7 - 5.6 :35 GONADOTROPIN-FSH (18213) Comments: PATIENT NOT FASTINGPERFORMED BY: [facility] [id number] FSH 6.1 m[iU]/mL (Normal) Comments: . Male Female 5th day <0.2 - 4.6 <0.2 - 4.6 2 mo- 3 yrs. 0.2 - 2.7 1.4 - 9.2 4- 6 yrs. 0.2 - 2.7 0.4 - 6.6 7- 9 yrs. 0.2 - 2.7 0.4 - 5.0 10-11 yrs. 0.4 - 5.0 Not Estab 12-13 yrs. 0.4 - 6.6 Not Estab 14-15 yrs. 0.7 - 13.2 Not Estab >15 yrs. 1.4 - 18.1 See Below Female Follicular 2.5 - 10.2 Midcycle 3.4 - 33.4 Lut eal 1.5 - 9.1 <0.2 Postmenopausal 23.0 - 116.3 :35 LIPID PANEL (44001) Comments: PATIENT NOT FASTINGPERFORMED BY: [place] [id number] [facility] [id number] Cholesterol, Total 175 mg/dL (Normal) Range: 100-199 HDL Cholesterol 52 mg/dL (Normal) Range: 40-59 LDL Cholesterol Calc 92 mg/dL (Normal) Range: 0-99 LDL/HDL Ratio 1.8 {ratio_units} (Normal) Range: 0.0-3.2 Triglycerides 155 mg/dL (Abnormal) Range: 0-149 VLDL Cholesterol Tash 31 mg/dL (Normal) Range: 5-40 :35 CARLOS (ANTINUCLEAR ANTIBODY) Comments: PATIENT NOT FASTINGPERFORMED BY: [address] [id number] ([id number]) Antinuclear Antibodies Direct 27 AU/mL (Normal) Range: 0-99 Comments: Negative <100 Equivocal 100 - 120 Positive >120 :35 C-REACTIVE PROTEIN ([id number]) Comments: PATIENT NOT FASTINGPERFORMED BY: [place] [id number] [facility] [id number] C-Reactive Protein, Quant 3.2 mg/L (Normal) Range: 0.0-4.9 :35 CBC (AUTO) ([id number]) Comments: PATIENT NOT FASTINGPERFORMED BY: [address] [id number] Hematocrit 39.4 % (Normal) Range: 34.0-44.0 Hemoglobin 13.4 g/dL (Normal) Range: 11.5-15.0 MCH 28.9 pg (Normal) Range: 27.0-34.0 MCHC 33.9 g/dL (Normal) Range: 32.0-36.0 MCV 86 fL (Normal) Range: 80-98 Platelets 317 {x10E3/uL} (Normal) Range: 140-415 RBC 4.61 {x10E6/uL} (Normal) Range: 3.80-5.10 RDW 15.0 % (Normal) Range: 11.7-15.0 WBC 9.6 {x10E3/uL} (Normal) Range: 4.0-10.5 :35 Folate ([id number]) Comments: PATIENT NOT FASTINGPERFORMED BY: [facility] [id number] Folate (Folic Acid), Serum 21.0 ng/mL (Normal) Comments: Indeterminate: 3.4 - 5.4 Deficient: <3.4 :35 METABOLIC PANEL, COMPREHENSIVE Comments: PATIENT NOT FASTINGPERFORMED BY: [facility] [id number] ([id number]) A/G Ratio 1.4 (Normal) Range: 1.1-2.5 Albumin, Serum 4.5 g/dL (Normal) Range: 3.5-5.5 Alkaline Phosphatase, S 42 [iU]/L (Normal) Range: 25-150 ALT (SGPT) 13 [iU]/L (Normal) Range: 0-40 AST (SGOT) 19 [iU]/L (Normal) Range: 0-40 Bilirubin, Total 0.2 mg/dL (Normal) Range: 0.1-1.2 BUN 8 mg/dL (Normal) Range: 5-26 BUN/Creatinine Ratio 9 (Normal) Range: 8-27 Calcium, Serum 9.5 mg/dL (Normal) Range: 8.5-10.6 Carbon Dioxide, Total 22 mmol/L (Normal) Range: 20-32 Chloride, Serum 101 mmol/L (Normal) Range: 97-108 Creatinine, Serum 0.90 mg/dL (Normal) Range: 0.57-1.00 Comments: Please note reference interval change Globulin, Total 3.2 g/dL (Normal) Range: 1.5-4.5 Glom Filt Rate, Est >60 mL/min/1.73 Range: 60-128 (Normal) Glucose, Serum 81 mg/dL (Normal) Range: 65-99 If -Fijian >60 mL/min/1.73 Range: 60-128 (Normal) Comments: Note: Persistent reduction for 3 months or more in an eGFR<60 mL/min/1.73 m2 defines CKD. Patients with eGFR values>/=60 mL/min/1.73 m2 may also have CKD if evidence of persistentproteinuria is present. Additional information may be found [email or web address]. Potassium, Serum 4.2 mmol/L (Normal) Range: 3.5-5.2 Protein, Total, Serum 7.7 g/dL (Normal) Range: 6.0-8.5 Sodium, Serum 137 mmol/L (Normal) Range: 135-145 :35 RHEUMATOID FACTOR-QUANT ([id number]) Comments: PATIENT NOT FASTINGPERFORMED BY: [facility] [id number] [facility] [id number] RA Latex Turbid. 8.2 {IU/mL} (Normal) Range: 0.0-13.9 :35 SED RATE ERYTHROCYTE ([id number]) Comments: PATIENT NOT FASTINGPERFORMED BY: [facility] [id number] [facility] [id number] Sedimentation Rate-Westergren 1 mm/h (Normal) Range: 0-20 :35 TSH ([id number]) Comments: PATIENT NOT FASTINGPERFORMED BY: [facility] [id number] [facility] [id number] TSH 2.295 {uIU/mL} (Normal) Range: 0.450-4.500 Comments: Please note reference interval change :35 VITAMIN B-12 (CYANOCOBALAMIN) Comments: PATIENT NOT FASTINGPERFORMED BY: [employer] [id number] [facility] [id number] ([id number]) Vitamin B12 511 pg/mL (Normal) Range: 211-911 :13 Rapid Flu (49589 x 2) Comments: neg INFLUENZA IMMUNOASSY DIRECT OPTICAL OBSERV neg (Normal) :47 LIPID CHOL 157 mg/dL (Normal) Comments: <200 mg/dL Desirable 200-240 mg/dL Borderline >240 mg/dL High Risk HDL 45 mg/dL (Normal) Comments: Reference Range HDL <40 mg/dL Low HDL Cholesterol HDL >or= 60 mg/dL High HDL Cholesterol LDL 84 mg/dL (Normal) Range: 0-130 TRIG 141 mg/dL (Normal) Comments: Serum Triglycerides Reference Interval Normal <150 mg/dL Borderline high 150 - 199 mg/dL High 200 - 499 mg/dL Very High > or = 500 mg/dL VLDL 28 mg/dL (Normal) Range: 5-40 :47 GLUP 121 mg/dL (Normal) Comments: GLU,2HPPG 75gm GLUC PPG GLUP from 0122:[id number]. :30 LIVER ALB 3.7 g/dL (Normal) Range: 3.4-5.0 ALK P 60 U/L (Normal) Range: 50-136 ALT 30 [iU]/L (Normal) Range: 30-65 AST 14 U/L (Abnormal) Range: 15-37 D BILI 0.08 mg/dL (Normal) Range: 0.00-0.30 T BILI 0.19 mg/dL (Normal) Range: 0.00-1.00 T PROT 7.8 g/dL (Normal) Range: 6.4-8.2 :30 C DIF TOXIN See Note (Normal) Comments: C. DIFF TOXINS A&B NEGATIVE :30 CULTURE, STOOL See Note (Normal) Comments: No Salmonella, Shigella, E. coli 0157:H7, Yersinia orCampylobacter isolated. No significant amount ofStaphylococcus aureus or yeast-like organisms isolated. :30 O AND P See Note (Normal) Comments: OVA AND PARASITES EXAM, ROUTINE These results were obtained using wet preparation(s) and trichrome stained smear. This test does not include testing for Crytosporidium parvum, Cyclospora, or Microspo ridia. TESTING PERFORMED AT [facility]. ORIGINAL REPORT ON FILE IN LAB CONTAINS ADDITIONAL TEST SITE INFORMATION. OVA/ PARASITES EXAM NO OVA, CYSTS, OR PARASITES FOUND. [id number] WBC,STOOL See Note (Normal) Comments: FECAL WBCs NONE SEEN 85-Sqe-[id number]:08 Lipase (57274) Comments: PATIENT NOT FASTINGPERFORMED BY: [place] [id number] [facility] [id number] Lipase, Serum 38 U/L (Normal) Range: 0-59 92-Tao-237187:08 Amylase (33801) Comments: PATIENT NOT FASTINGPERFORMED BY: [place] [id number] [facility] [id number] Amylase, Serum 32 U/L (Normal) Range: 0-99 18-Sjd-692811:08 TSH (65792) Comments: PATIENT NOT FASTINGPERFORMED BY: [address] [id number] TSH 3.270 {uIU/mL} (Normal) Range: 0.350-5.500 48-Oey-245109:08 METABOLIC PANEL, COMPREHENSIVE Comments: PATIENT NOT FASTINGPERFORMED BY: [address] [id number] (22230) A/G Ratio 1.4 (Normal) Range: 1.1-2.5 Albumin, Serum 4.2 g/dL (Normal) Range: 3.5-5.5 Alkaline Phosphatase, S 75 [iU]/L (Normal) Range: 25-150 ALT (SGPT) 20 [iU]/L (Normal) Range: 0-40 AST (SGOT) 15 [iU]/L (Normal) Range: 0-40 Bilirubin, Total 0.2 mg/dL (Normal) Range: 0.1-1.2 BUN 6 mg/dL (Normal) Range: 5-26 BUN/Creatinine Ratio 8 (Normal) Range: 8-27 Calcium, Serum 9.5 mg/dL (Normal) Range: 8.5-10.6 Carbon Dioxide, Total 25 mmol/L (Normal) Range: 20-32 Chloride, Serum 103 mmol/L (Normal) Range: 96-109 Creatinine, Serum 0.8 mg/dL (Normal) Range: 0.5-1.5 Globulin, Total 2.9 g/dL (Normal) Range: 1.5-4.5 Glucose, Serum 95 mg/dL (Normal) Range: 65-99 Potassium, Serum 3.8 mmol/L (Normal) Range: 3.5-5.5 Protein, Total, Serum 7.1 g/dL (Normal) Range: 6.0-8.5 Sodium, Serum 139 mmol/L (Normal) Range: 135-148 64-Yzh-142276:08 CBC WITH MANUAL DIFF ([id number]) Comments: PATIENT NOT FASTINGClinical Information: ADD DRAW FEE [id number] ADD J [id number] PERFORMED BY: [id number] [facility] [id number] Baso (Absolute) 0.0 {x10E3/uL} Range: 0.0-0.2 (Normal) Basos 0 % (Normal) Range: 0-3 Eos 1 % (Normal) Range: 0-7 Eos (Absolute) 0.1 {x10E3/uL} Range: 0.0-0.4 (Normal) Hematocrit 38.5 % (Normal) Range: 34.0-44.0 Hemoglobin 13.1 g/dL (Normal) Range: 11.5-15.0 Lymphs 35 % (Normal) Range: 14-46 Lymphs (Absolute) 3.6 {x10E3/uL} Range: 0.7-4.5 (Normal) MCH 29.8 pg (Normal) Range: 27.0-34.0 MCHC 34.2 g/dL (Normal) Range: 32.0-36.0 MCV 87 fL (Normal) Range: 80-98 Monocytes 4 % (Normal) Range: 4-13 Monocytes(Absolute) 0.4 {x10E3/uL} Range: 0.1-1.0 (Normal) Neutrophils 60 % (Normal) Range: 40-74 Neutrophils (Absolute) 6.1 {x10E3/uL} Range: 1.8-7.8 (Normal) Platelets 324 {x10E3/uL} Range: 140-415 (Normal) RBC 4.41 {x10E6/uL} Range: 3.80-5.10 (Normal) RDW 15.2 % (Abnormal) Range: 11.7-15.0 WBC 10.2 {x10E3/uL} Range: 4.0-10.5 (Normal) H.PYLORI [id number] < 0.9 U/mL (Normal) Range: 0.0-0.8 :32 Comments: Negative <0.9 Indeterminate 0.9 - 1.0 Positive >1.0Performed At: [facility] [id number] [place], [place] [id number] :42 PFLIP CHOL 200 mg/dL (Normal) Comments: <200 mg/dL Desirable 200-240 mg/dL Borderline >240 mg/dL High Risk HDL 54 mg/dL (Normal) Comments: Reference Range HDL <40 mg/dL Low HDL Cholesterol HDL >or= 60 mg/dL High HDL Cholesterol LDL 82 mg/dL (Normal) Range: 0-130 TRIG 322 mg/dL (Abnormal) Comments: Serum Triglycerides Reference Interval Normal <150 mg/dL Borderline high 150 - 199 mg/dL High 200 - 499 mg/dL Very High > or = 500 mg/dL VLDL 64 mg/dL (Abnormal) Range: 5-40 Plan of Care Name Dates Details Instructions Diarrhea : Follow up if no improvement or if symptoms worsen Indication: Diarrhea Tobacco use : Eprescribed prescriptions (G8553) Indication: Tobacco use BMI 33.0-33.9,adult : Follow up if no improvement or if symptoms worsen Indication: BMI 33.0-33.9,adult SYMPTOM, DIARRHEA NOS : Diarrhea instructions Indication: SYMPTOM, DIARRHEA NOS SYMPTOM, DIARRHEA NOS : *Abd Pain Red Flags Indication: SYMPTOM, DIARRHEA NOS BMI 33.0-33.9,adult : Eprescribed prescriptions (G8553) Indication: BMI 33.0-33.9,adult BMI 33.0-33.9,adult : Follow up if no improvement or if symptoms worsen Indication: BMI 33.0-33.9,adult Tobacco use : Eprescribed prescriptions (G8553) Indication: Tobacco use Diarrhea : Follow up if no improvement or if symptoms worsen Indication: Diarrhea BMI 31.0-31.9,adult : Eprescribed prescriptions (G8553) Indication: BMI 31.0-31.9,adult Diarrhea : *Abd Pain Red Flags Indication: Diarrhea Diarrhea : Diarrhea instructions Indication: Diarrhea Anxiety : Continue Current Prescription(s) Indication: Anxiety Hyperglyceridemia : Follow up in 1 year or as needed Indication: Hyperglyceridemia Hypercholesterolemia : Cholesterol mgmt Indication: Hypercholesterolemia Hyperglyceridemia : Eprescribed prescriptions (G8553) Indication: Hyperglyceridemia Low back pain potentially associated with radiculopathy : Reviewed Garbage Stoker Letter Indication: Low back pain potentially associated with radiculopathy Tobacco use : Eprescribed prescriptions (G8553) Indication: Tobacco use Abnormal CAT scan : Reviewed Lab Indication: Abnormal CAT scan Abnormal CAT scan : Reviewed Diagnostic Tests Indication: Abnormal CAT scan Abnormal CAT scan : Reviewed Diagnostic Tests Indication: Abnormal CAT scan Abnormal CAT scan : Reviewed Lab Indication: Abnormal CAT scan Tobacco use : Follow up if no improvement or if symptoms worsen Indication: Tobacco use Tobacco use : Eprescribed prescriptions (G8553) Indication: Tobacco use Hypercholesterolemia : Follow up in 6 months Indication: Hypercholesterolemia Hypercholesterolemia : Reviewed Lab Indication: Hypercholesterolemia Hypercholesterolemia : Cholesterol mgmt Indication: Hypercholesterolemia Intractable vomiting with nausea, unspecified vomiting type : Eprescribed prescriptions (G8553) Indication: Intractable vomiting with nausea, unspecified vomiting type Tobacco use : Follow up if no improvement or if symptoms worsen Indication: Tobacco use Leukocytosis, unspecified type : Reviewed Lab Indication: Leukocytosis, unspecified type Abdominal pain, unspecified abdominal location : Reviewed Diagnostic Tests Indication: Abdominal pain, unspecified abdominal location Abdominal pain, unspecified abdominal location : Reviewed Lab Indication: Abdominal pain, unspecified abdominal location Tobacco use : Eprescribed prescriptions (G8553) Indication: Tobacco use Dysuria : Eprescribed prescriptions (G8553) Indication: Dysuria UTI symptoms : Follow up if no improvement or if symptoms worsen Indication: UTI symptoms UTI symptoms : Eprescribed prescriptions (G8553) Indication: UTI symptoms Tobacco use : Smoking Cessation/Tobacco Education Indication: Tobacco use Hypercholesterolemia : Follow up in 6 months Indication: Hypercholesterolemia Hypercholesterolemia : Reviewed Lab Indication: Hypercholesterolemia Hypercholesterolemia : Cholesterol mgmt Indication: Hypercholesterolemia Irritable bowel syndrome : Follow up in 6 months- gen med Indication: Irritable bowel syndrome Hypercholesterolemia : Cholesterol mgmt Indication: Hypercholesterolemia Abnormal lung sounds : Follow up in or wednesday for danisha and general medical visit Indication: Abnormal lung sounds Fever and chills : Eprescribed prescriptions (G8553) Indication: Fever and chills Abnormal lung sounds : *Antibiotic Usage Education - Female Indication: Abnormal lung sounds Bilateral low back pain without sciatica : Reviewed Diagnostic Tests Indication: Bilateral low back pain without sciatica Tendonitis of elbow or forearm : Follow up- keep august 07 appt Indication: Tendonitis of elbow or forearm Candidiasis, mouth : Follow up if no improvement or if symptoms worsen Indication: Candidiasis, mouth SYMPTOM, DIARRHEA NOS : Follow up if no improvement or if symptoms worsen Indication: SYMPTOM, DIARRHEA NOS Anxiety : Reviewed Lab Indication: Anxiety Headache : Reviewed Lab Indication: Headache Anxiety : Diet, Exercise, and Wt loss Indication: Anxiety Anxiety : Follow up in 4 weeks Indication: Anxiety Headache : Eprescribed prescriptions (G8553) Indication: Headache Hyperglyceridemia : Follow up in 4 months Indication: Hyperglyceridemia Hyperglyceridemia : Diet, Exercise, and Wt loss Indication: Hyperglyceridemia Elevated blood-pressure reading without diagnosis of hypertension : BP MONITORING - SELF Indication: Elevated blood-pressure reading without diagnosis of hypertension Anxiety : Anxiety: anxiety Indication: Anxiety Elevated blood-pressure reading without diagnosis of hypertension : BP MONITORING - SELF Indication: Elevated blood-pressure reading without diagnosis of hypertension Headache : Eprescribed prescriptions (G8553) Indication: Headache Hypercholesterolemia : Continue Current Prescription(s) Indication: Hypercholesterolemia Anxiety : Continue Current Prescription(s) Indication: Anxiety Hypercholesterolemia : Reviewed Lab Indication: Hypercholesterolemia SYMPTOMS INVOLVING DIGESTIVE SYSTEM; HEARTBURN : GERD Education Indication: SYMPTOMS INVOLVING DIGESTIVE SYSTEM; HEARTBURN Hypercholesterolemia : Cholesterol mgmt Indication: Hypercholesterolemia Hypercholesterolemia : Follow up in 4 months Indication: Hypercholesterolemia Anxiety : Reviewed Garbage Stoker Letter: still seeing counseling Indication: Anxiety Anxiety : Continue Current Prescription(s) Indication: Anxiety Hypercholesterolemia : Cholesterol mgmt Indication: Hypercholesterolemia Hypercholesterolemia : Follow up in 2 months Indication: Hypercholesterolemia Hypercholesterolemia : Cholesterol mgmt Indication: Hypercholesterolemia Nausea and vomiting : Follow up in 1 week Indication: Nausea and vomiting VOLUME DEPLETION DISORDER; DEHYDRATION : Follow up in 1 week Indication: VOLUME DEPLETION DISORDER; DEHYDRATION VOLUME DEPLETION DISORDER; DEHYDRATION : Follow up if no improvement or if symptoms worsen Indication: VOLUME DEPLETION DISORDER; DEHYDRATION VOLUME DEPLETION DISORDER; DEHYDRATION : sips of gatorade Indication: VOLUME DEPLETION DISORDER; DEHYDRATION SYMPTOM, DIARRHEA NOS : Diet, Indication: SYMPTOM, DIARRHEA NOS Hypercholesterolemia : Follow up in 6months Indication: Hypercholesterolemia SYMPTOMS INVOLVING DIGESTIVE SYSTEM; HEARTBURN : GERD Education Indication: SYMPTOMS INVOLVING DIGESTIVE SYSTEM; HEARTBURN Hypercholesterolemia : Cholesterol mgmt Indication: Hypercholesterolemia Hypercholesterolemia : Anxiety: anxiety Indication: Hypercholesterolemia Headache : Headaches and Eye Problems: headaches Indication: Headache Cough : Cough: cough Indication: Cough Hyperglyceridemia : Follow up in 6 months Indication: Hyperglyceridemia Hyperglyceridemia : Continue Current Prescription(s) Indication: Hyperglyceridemia SYMPTOMS INVOLVING DIGESTIVE SYSTEM; HEARTBURN : GERD Education Indication: SYMPTOMS INVOLVING DIGESTIVE SYSTEM; HEARTBURN Hypercholesterolemia : Cholesterol mgmt Indication: Hypercholesterolemia SYMPTOMS INVOLVING DIGESTIVE SYSTEM; HEARTBURN : GERD Education Indication: SYMPTOMS INVOLVING DIGESTIVE SYSTEM; HEARTBURN Hypercholesterolemia : High Cholesterol (Hypercholesterolemia) *: cardiovascular health Indication: Hypercholesterolemia Other specified viral infection, in conditions classified elsewhere and of unspecified site : *URI Symptoms Indication: Other specified viral infection, in conditions classified elsewhere and of unspecified site Other specified viral infection, in conditions classified elsewhere and of unspecified site : *URI Treatment Indication: Other specified viral infection, in conditions classified elsewhere and of unspecified site Hypercholesterolemia : Follow up in 3 months Indication: Hypercholesterolemia Anxiety : Continue Current Prescription(s) Indication: Anxiety Irritable bowel syndrome : GERD Education Indication: Irritable bowel syndrome Hypercholesterolemia : *Cholesterol - Nonprescription Treatment Indication: Hypercholesterolemia Hypercholesterolemia : Cholesterol mgmt Indication: Hypercholesterolemia Hypercholesterolemia : High Cholesterol (Hypercholesterolemia) *: cardiovascular health Indication: Hypercholesterolemia Hypercholesterolemia : Reviewed Lab Indication: Hypercholesterolemia Hypercholesterolemia : Continue Current Prescription(s) Indication: Hypercholesterolemia Hypercholesterolemia : High Cholesterol (Hypercholesterolemia) *: high cholesterol Indication: Hypercholesterolemia Pharyngitis, acute : Sore throat: diagnosis and treatment Indication: Pharyngitis, acute Hypercholesterolemia : *Cholesterol - Nonprescription Treatment Indication: Hypercholesterolemia Hypercholesterolemia : Cholesterol mgmt Indication: Hypercholesterolemia Dysuria : Follow up in 4 months Indication: Dysuria Hyperglyceridemia : Reviewed Lab Indication: Hyperglyceridemia Anxiety : Reviewed Garbage Stoker Letter Indication: Anxiety Anxiety : Continue Current Prescription(s) Indication: Anxiety Cervical strain : exercises Indication: Cervical strain Cough : FOLLOW UP IN 4 WEEKS Indication: Cough Bronchitis : *URI Treatment Indication: Bronchitis Bronchitis : *URI Symptoms Indication: Bronchitis Bronchitis : *Antibiotic Usage Education - Female Indication: Bronchitis Hematuria : follow up for recheck urine 1 week after complete antibiotic Indication: Hematuria Low back pain : FOLLOW UP IN 2 WEEKS [facility] Indication: Low back pain Other specified viral infection, in conditions classified elsewhere and of unspecified site : *URI Symptoms Indication: Other specified viral infection, in conditions classified elsewhere and of unspecified site Other specified viral infection, in conditions classified elsewhere and of unspecified site : *URI Treatment Indication: Other specified viral infection, in conditions classified elsewhere and of unspecified site Hypercholesterolemia : Continue Current Prescription(s) Indication: Hypercholesterolemia Hypercholesterolemia : Reviewed Lab Indication: Hypercholesterolemia Anxiety : Continue Current Prescription(s) Indication: Anxiety Hypercholesterolemia : CHOLESTEROL MGMT. Indication: Hypercholesterolemia Hypercholesterolemia : *Cholesterol - Nonprescription Treatment Indication: Hypercholesterolemia Hypercholesterolemia : *Cholesterol - Medication Side Effects Indication: Hypercholesterolemia Anxiety : FOLLOW UP IN 3 WEEKS Indication: Anxiety SYMPTOMS INVOLVING DIGESTIVE SYSTEM; HEARTBURN : GERD Education Indication: SYMPTOMS INVOLVING DIGESTIVE SYSTEM; HEARTBURN Hypercholesterolemia : CHOLESTEROL MGMT. Indication: Hypercholesterolemia Hypercholesterolemia : *Cholesterol - Nonprescription Treatment Indication: Hypercholesterolemia Hypercholesterolemia : *Cholesterol - Medication Side Effects Indication: Hypercholesterolemia Epigastric pain : NSAID AVOIDANCE Indication: Epigastric pain Epigastric pain : FOLLOW UP IN 3 WEEKS Indication: Epigastric pain Diarrhea : *Abd Pain Red Flags Indication: Diarrhea Diarrhea : Diarrhea Education Indication: Diarrhea Anxiety : FOLLOW UP IN 1 MONTH Indication: Anxiety Sinusitis, acute : *Antibiotic Usage Education - Female Indication: Sinusitis, acute Anxiety : FOLLOW UP IN 1 MONTH Indication: Anxiety Hypercholesterolemia : CHOLESTEROL MGMT. Indication: Hypercholesterolemia Hypercholesterolemia : Cholesterol - Nonprescription Treatment Indication: Hypercholesterolemia Hypercholesterolemia : Cholesterol - Medication Side Effects Indication: Hypercholesterolemia Sebaceous cyst : Shave Biopsy with Epi and scooped out and capsule debrided out Indication: Sebaceous cyst Sebaceous cyst : Skin Biopsy Home Instructions Indication: Sebaceous cyst Sebaceous cyst : Skin Infection - Signs and Symptoms Indication: Sebaceous cyst Contact with or exposure to other communicable diseases (Renamed from Contact with and suspected exposure to other communicable diseases) : Safe Sex Discussion Indication: Contact with or exposure to other communicable diseases (Renamed from Contact with and suspected exposure to other communicable diseases) Contact with or exposure to other communicable diseases (Renamed from Contact with and suspected exposure to other communicable diseases) : HPV Vaccine Information 2005 Indication: Contact with or exposure to other communicable diseases (Renamed from Contact with and suspected exposure to other communicable diseases) SYMPTOMS INVOLVING DIGESTIVE SYSTEM; HEARTBURN : GERD Education Indication: SYMPTOMS INVOLVING DIGESTIVE SYSTEM; HEARTBURN Hypercholesterolemia : CHOLESTEROL MGMT. Indication: Hypercholesterolemia Hypercholesterolemia : Cholesterol - Nonprescription Treatment Indication: Hypercholesterolemia Hypercholesterolemia : Cholesterol - Medication Side Effects Indication: Hypercholesterolemia Diarrhea : DIARRHEA INSTRUCTIONS Indication: Diarrhea Bronchitis : *URI Treatment Indication: Bronchitis Bronchitis : Antibiotic Usage Education - Female Indication: Bronchitis Bronchitis : URI Symptoms Indication: Bronchitis Other specified viral infection, in conditions classified elsewhere and of unspecified site : *URI Symptoms Indication: Other specified viral infection, in conditions classified elsewhere and of unspecified site Other specified viral infection, in conditions classified elsewhere and of unspecified site : *URI Treatment Indication: Other specified viral infection, in conditions classified elsewhere and of unspecified site Fatigue : Reviewed Lab Indication: Fatigue Hypercholesterolemia : CHOLESTEROL MGMT. Indication: Hypercholesterolemia Hypercholesterolemia : Cholesterol - Nonprescription Treatment Indication: Hypercholesterolemia Hypercholesterolemia : Cholesterol - Medication Side Effects Indication: Hypercholesterolemia Hypercholesterolemia : Reviewed Lab Indication: Hypercholesterolemia DUB (dysfunctional uterine bleeding) : Reviewed Diagnostic Tests Indication: DUB (dysfunctional uterine bleeding) DUB (dysfunctional uterine bleeding) : Reviewed Lab Indication: DUB (dysfunctional uterine bleeding) Sinusitis, acute : *URI Treatment Indication: Sinusitis, acute Sinusitis, acute : *Antibiotic Usage Education - Female Indication: Sinusitis, acute Sinusitis, acute : *URI Symptoms Indication: Sinusitis, acute SYMPTOMS INVOLVING DIGESTIVE SYSTEM; HEARTBURN : GERD Education Indication: SYMPTOMS INVOLVING DIGESTIVE SYSTEM; HEARTBURN Fatigue : *fatigue education Indication: Fatigue Hypercholesterolemia : CHOLESTEROL MGMT. Indication: Hypercholesterolemia Hypercholesterolemia : Cholesterol - Medication Side Effects Indication: Hypercholesterolemia Hypercholesterolemia : Cholesterol - Nonprescription Treatment Indication: Hypercholesterolemia Sinusitis, acute : *URI Treatment Indication: Sinusitis, acute Sinusitis, acute : Antibiotic Usage Education - Female Indication: Sinusitis, acute Sinusitis, acute : URI Symptoms Indication: Sinusitis, acute Hypercholesterolemia : FOLLOW UP IN 4 MONTHS Indication: Hypercholesterolemia Hypercholesterolemia : CHOLESTEROL MGMT. Indication: Hypercholesterolemia Hypercholesterolemia : Cholesterol - Nonprescription Treatment Indication: Hypercholesterolemia Hypercholesterolemia : Cholesterol - Medication Side Effects Indication: Hypercholesterolemia Sinusitis, acute : *Antibiotic Usage Education - Female Indication: Sinusitis, acute Sinusitis, acute : *URI Symptoms Indication: Sinusitis, acute Sinusitis, acute : *URI Treatment Indication: Sinusitis, acute SYMPTOMS INVOLVING DIGESTIVE SYSTEM; HEARTBURN : GERD Education Indication: SYMPTOMS INVOLVING DIGESTIVE SYSTEM; HEARTBURN Hyperglyceridemia : CHOLESTEROL MGMT. Indication: Hyperglyceridemia Hyperglyceridemia : Cholesterol - Medication Side Effects Indication: Hyperglyceridemia Hyperglyceridemia : Cholesterol - Nonprescription Treatment Indication: Hyperglyceridemia Sinusitis, acute : *URI Treatment Indication: Sinusitis, acute Sinusitis, acute : Antibiotic Usage Education - Female Indication: Sinusitis, acute Sinusitis, acute : URI Symptoms Indication: Sinusitis, acute Anxiety : depression/anxiety treatment Indication: Anxiety Hypercholesterolemia : Diet and Exercise Indication: Hypercholesterolemia Sinusitis, acute : Antibiotic Usage Education - Female Indication: Sinusitis, acute Sinusitis, acute : URI Symptoms Indication: Sinusitis, acute Sinusitis, acute : URI treament Indication: Sinusitis, acute Epigastric pain : Smoking Cessation/Tobacco Education Indication: Epigastric pain Epigastric pain : NSAID AVOIDANCE Indication: Epigastric pain Neck pain : exercises Indication: Neck pain Neck pain : FOLLOW UP IF NO IMPROVEMENT OR IF SYMPTOMS WORSEN Indication: Neck pain Low back pain : Low Back Pain Red Flags Indication: Low back pain Neck pain : exercises Indication: Neck pain Planned Observations OVA & PARASITE DIR SMEAR ([id number])Indication: SYMPTOM, DIARRHEA NOS On: : Request OCCULT BLOOD FECES SCREEN ([id number])Indication: SYMPTOM, DIARRHEA NOS On: : Request LEUKOCYTE COUNT, FECAL ([id number])Indication: SYMPTOM, DIARRHEA NOS On: : Request C-DIFFICILE, STOOL ([id number])Indication: SYMPTOM, DIARRHEA NOS On: : Request RANGEL CULTURE-STOOL ([id number])Indication: SYMPTOM, DIARRHEA NOS On: : Request OVA & PARASITE DIR SMEAR ([id number])Indication: Diarrhea On: :17 Request OCCULT BLOOD FECES SCREEN ([id number])Indication: Diarrhea On: :17 Request LEUKOCYTE COUNT, FECAL ([id number])Indication: Diarrhea On: :17 Request C-DIFFICILE, STOOL ([id number])Indication: Diarrhea On: :17 Request RANGEL CULTURE-STOOL ([id number])Indication: Diarrhea On: 33-Plj-434155:17 Request C-REACTIVE PROTEIN ([id number])Indication: Leukocytopenia On: 3-Xyl-244362:09 Request Comments: add on CBC, PLATELETS & MANUAL DIFF ([id number])Indication: Flank pain, acute On: 2-Rfw-727981:03 Request SED RATE ERYTHROCYTE ([id number])Indication: Flank pain, acute On: 7-Cfn-537270:03 Request METABOLIC PANEL, COMPREHENSIVE ([id number])Indication: Diarrhea, unspecified type On: 9-Vln-520163:02 Request CBC, Platelets & Auto Diff ([id number])Indication: Abdominal pain, unspecified abdominal location On: :32 Request Metabolic Panel, Comprehensive ([id number])Indication: Abdominal pain, unspecified abdominal location On: :32 Request CALCIFIDIOL ([id number]) VIT D 25Indication: Vitamin D deficiency On: :36 Request TSH ([id number])Indication: Anxiety On: :36 Request CBC W/AUTO DIFF WBC ([id number])Indication: Hypercholesterolemia On: :36 Request METABOLIC PANEL, COMPREHENSIVE ([id number])Indication: Hypercholesterolemia On: :36 Request LIPID PANEL ([id number])Indication: Hypercholesterolemia On: :36 Request Rapid Flu ([id number] x 2)Indication: Fever and chills On: 65-Vyz-56790:44 Request TSH ([id number])Indication: Abnormal TSH On: 07-Nov-2013 Request TSH ([id number])Indication: Abnormal TSH On: 08-Sep-2013 Request RANGEL CULTURE-OTHER ([id number])Indication: Pharyngitis, acute On: 29-Cvj-10830:02 Request LIPID PANEL ([id number])Indication: Hyperglyceridemia On: :15 Request URINE RANGEL CULTURE-IDENTIFICATN ([id number])Indication: Dysuria On: :50 Request OVA & PARASITE DIR SMEAR ([id number])Indication: Diarrhea On: 62-Cox-152624:43 Request OCCULT BLOOD FECES SCREEN ([id number])Indication: Diarrhea On: 73-Vwx-310765:43 Request LEUKOCYTE COUNT, FECAL ([id number])Indication: Diarrhea On: 18-Dqf-221598:43 Request C-DIFFICILE, STOOL ([id number])Indication: Diarrhea On: :43 Request RANGEL CULTURE-STOOL ([id number])Indication: Diarrhea On: 26-Xbs-488681:43 Request HUMAN PAPILVS, NUCLEIC ACID AMPL PROBE ([id number])Indication: Contact with or exposure to other communicable diseases (Renamed from Contact with and suspected exposure to other communicable diseases) On: 54-Ptf-867482:09 Request NEISSERIA ([id number]) (THIN PREP OBTAINED)Indication: Contact with or exposure to other communicable diseases (Renamed from Contact with and suspected exposure to other communicable diseases) On: :08 Request CHLAMYDIA ([id number]) (thin prep obtained)Indication: Contact with or exposure to other communicable diseases (Renamed from Contact with and suspected exposure to other communicable diseases) On: :08 Request GONADOTROPIN-LH ([id number])Indication: DUB (dysfunctional uterine bleeding) On: 16-Xnx-23436:37 Request OVA & PARASITE DIR SMEAR ([id number])Indication: Diarrhea On: 86-Puy-102263:49 Request LEUKOCYTE COUNT, FECAL ([id number])Indication: Diarrhea On: 19-Xcw-289062:48 Request C-DIFFICILE, STOOL ([id number])Indication: Diarrhea On: 13-Tck-110373:48 Request RANGEL CULTURE-STOOL ([id number])Indication: Diarrhea On: 17-Gqh-656248:48 Request Glucose, PP/2 Hour ([id number])Indication: Family history of diabetes mellitus On: 5-Apc-665817:16 Request Comments: also send results to dr tiara baltazar at [facility] on [facility] HEPATIC FUNCTION PANEL ([id number])Indication: Hyperglyceridemia On: 4-Mdu-202562:15 Request LIPID PANEL ([id number])Indication: Hyperglyceridemia On: 9-Nyk-938206:15 Request Comments: do in 3 months Lipid Panel ([id number])Indication: Hypercholesterolemia On: 38-Aoa-95861:38 Request Comments: do in 4 months HELICOBACTER PYLORI ANTIBODY ([id number])Indication: Epigastric pain On: 91-Pfb-242334:03 Request Planned Procedures IV Needle placement On: 26-Jan-2018 Intent ([id number])By: Cherelle Blankenship CNP Comments: IV Therapy [id number], 1 inchSite: L acTolerated: well x 2 attemptsno redness or swelling, no s/s infiltrationMLONG, LPNIV D/CLFApt tolerated wellno complicationsTLOCKLEAR,FINISHED CIGAR MAKER INFUSION, NORMAL SALINE On: 26-Jan-2018 Intent SOLUTION , 1000 CC (Special Coverage Instructions Apply. See MCM: 2049) ([id number])By: Cherelle Blankenship CNP Toradol Injection, 30 mg On: 04-Dec-2016 Intent ([id number])By: Lisa Ziegler DO, DO, Kathleen Ultrasound - PelvisBy: On: 04-Dec-2016 Intent Lisa Ziegler DO, DO, Kathleen Toradol Injection, 30 mg On: 03-Dec-2016 Intent ([id number])By: Janelle Oates Comments: [id number]/ml1ml givenR hip, IMML FINISHED CIGAR MAKER CT - Abdomen & Pelvis On: 03-Dec-2016 Intent (Without Contrast)By: Janelle Oates INFUSION, NORMAL SALINE On: 05-May-2016 Intent SOLUTION , 1000 CC (Special Comments: Lot [id number] ccleft [id number] guageas, FINISHED CIGAR MAKER Coverage Instructions Apply. See [facility]: 204) ([id number])By: Jessica Bro DO Phenergan Injection, up to On: 05-May-2016 Intent 50 mg (J2550)By: Dieudonne LECHUGA, Comments: lot: [id number]: 12/17site/route: LGM/IMamt: 1mL, 25mgVIS signed when applicableJEFRFY Beltran INFUSION, NORMAL SALINE On: 05-May-2016 Intent SOLUTION , 1000 CC (Special Comments: lot [id number] ccleft [id number] guageas, FINISHED CIGAR MAKER Coverage Instructions Apply. See [facility]: 2048) ([id number])By: Jessica Bro DO CT - Abdomen & Pelvis Stone On: 07-Apr-2016 Intent ProtocolBy: Cherelle Blankenship CNP Aerosol Treatment ([id number])By: On: 08-Aug-2015 Lisa Mcnally DO Comments: lots more a/e and feels less tight Lisa LECHUGA Tobacco Counseling 3-10 MIN On: 01-Aug-2015 Intent ([id number])By: Lisa Ziegler DO, DO, Kathleen Aerosol Treatment ([id number])By: On: 01-Aug-2015 Lisa Mcnally DO Comments: clear as haider and more a/e after aerosol Lisa LECHUGA Radiology - Lumbar SpineBy: On: 24-Jul-2015 Lisa Mcnally DO, DO, Kathleen Toradol Injection, 30 mg On: 08-Nov-2014 Intent ([id number])By: Toney LECHUGA, Comments: lot:[id number]:3route:IMdose:30MGSite:R glutgiven by: JEFFRY Sma DO, Kathleen CT - Brain/HeadBy: Toney On: 08-Nov-2014 Lisa Horvath DO, DO, Comments: STAT With andwithout contrast Lisa IV Needle placement On: 20-Feb-2014 Intent ([id number])By: Cherelle Blankenship CNP Comments: 22G insyte initiated in R cephalic w/o difficulty on [address] st attempt, dsg dry intact, no s/s redness swelling infiltration, catheter removed intact, no c/o voiced- tolerated well- CTyler FINISHED CIGAR MAKER INFUSION, NORMAL SALINE On: 20-Feb-2014 Intent SOLUTION , 1000 CC (Special Comments: lot # [id number] Exp- 05/18- cTyler FINISHED CIGAR MAKER Coverage Instructions Apply. See MCM: 2048) ([id number])By: Cherelle Blankenship CNP Phenergan Injection, up to On: 20-Feb-2014 Intent 50 mg (J2550)By: Krzysztof PAULA, Comments: lot # [id number]- [id number]-[id number]- 1MLCTyler FINISHED CIGAR MAKER Cherelle Varela Radiology - Cervical On: 26-Jun-2013 Intent SpineBy: Lisa Ziegler DO, DO, Kathleen Eprescribed prescriptions On: 28-Apr-2013 Intent ([id number])By: Ruby Do Eprescribed prescriptions On: 16-Feb-2013 Intent (G8553)By: Lisa Ziegler DO, DO, Kathleen Toradol Injection, 30 mg On: 30-Jan-2013 Intent (J1885)By: Cherelle Blankenship CNP Comments: Lot: [id number]: [id number]: 30mg/1mlRoute: IMSite: RUOQ GlutealGiven by: TARA Henderson Aerosol Treatment ([id number])By: On: 26-Dec-2012 Intent Maricarmen Cordova LPN Comments: ipotropium used - tolerated well Pulse Oximetry ([id number])By: On: 26-Dec-2012 Intent Maricarmen Cordova LPN Comments: 98% room air Eprescribed prescriptions On: 06-Oct-2012 Intent (G8553)By: Gene PACHECO, No L INFUSION, NORMAL SALINE On: 31-May-2012 Intent SOLUTION , 1000 CC (Special Coverage Instructions Apply. See MCM: 2048) (J7030)By: Christianne Bundy MD HYDRATION IV INFUSION, INIT On: 31-May-2012 Intent ([id number])By: Christianne Bundy MD Eprescribed prescriptions On: 10-May-2012 Intent (G8553)By: Janelle Go LPN Inhaler Demonstration On: 09-Feb-2012 Intent ([id number])By: Cherelle Blankenship CNP Aerosol Treatment ([id number])By: On: 09-Feb-2012 Intent Cherelle Blankenship CNP FLU VAC, SPLIT, >3 YEARS, On: 01-Feb-2012 Intent INTRAMUSC ([id number])By: Toney Comments: Lot:[id number]:6.13Amt:prefilled syringeSite: L Dltd, IMGiven by: TARA HendersonVIS signed Lisa LECHUGA DO, Kathleen IMMUNIZ ADMNIN, 1 VAC, On: 01-Feb-2012 Intent SNGL/COMBO ([id number])By: Lisa Ziegler DO, DO, Kathleen CT - Brain/HeadBy: Toney On: 09-Sep-2011 Intent Lisa LECHUGA DO, Kathleen Pulse Oximetry (57660)By: On: 16-Feb-2011 Intent Cherelle Blankenship CNP Aerosol Treatment ([id number])By: On: 16-Feb-2011 Intent Cherelle Blankenship CNP PHYSICAL THERAPY EVALUATION On: 01-Jul-2010 Intent ([id number])By: Cherelle Blankenship CNP Radiology - Cervical On: 01-Jul-2010 Intent SpineBy: Cherelle Blankenship CNP Radiology - ChestBy: Krzysztof On: 25-Jun-2010 Intent Cherelle PAULA Inhaler Demonstration On: 25-Jun-2010 Intent ([id number])By: Cherelle Blankenship CNP Pulse Oximetry ([id number])By: On: 25-Jun-2010 Intent Cherelle Blankenship CNP Aerosol Treatment ([id number])By: On: 25-Jun-2010 Intent Cherelle Blankenship CNP Toradol Injection, 30 mg On: 14-Mar-2010 Intent (J1885)By: Cherelle Blankenship CNP Radiology - Lumbar SpineBy: On: 14-Mar-2010 Intent Cherelle Blankenship CNP EKG (07030)By: Abbi, On: 18-Jul-2009 Intent Janelle PACHECO Comments: nsr no acute changes with st or t wave changes TDAP VACCINE >7 IM On: 26-Dec-2008 Intent (69795)By: Toney LECHUGA, Comments: Lot #[id number]/5/2011Site-right deltoidDose0.5mlgiven by Lisa Varela LPN, DO Toradol Injection, 30 mg On: 27-Nov-2008 Intent (J1885)By: Cherelle Blankenship CNP Comments: given left hip Mec HYDRATION IV INFUSION, INIT On: 13-Sep-2008 Intent ([id number])By: Cherelle Blankenship CNP Comments: iv 22 g placement in rt anacub area, pt tolerated well. INFUSION, NORMAL SALINE On: 13-Sep-2008 Intent SOLUTION , 1000 CC (Special Coverage Instructions Apply. See MCM: 2049) (J7030)By: Cherelle Blankenship CNP Toradol Injection, 30 mg On: 02-Jul-2008 Intent (J1885)By: Lisa Ziegler DO, DO, Kathleen Ultrasound - PelvisBy: On: 28-Dec-2007 Intent Lisa Ziegler DO, DO, Kathleen Radiology - KUBBy: Toney On: 30-Jun-2006 Intent Lisa LECHUGA DO, Comments: wet read Lisa Radiology - Left KneeBy: On: 15-Apr-2006 Intent KRAIG LR CNP Radiology - PelvisBy: BE On: 15-Apr-2006 Intent KRAIG PAULA Radiology - Lumbar SpineBy: On: 15-Apr-2006 Intent KRAIG LR CNP Radiology - Cervical On: 15-Apr-2006 Intent SpineBy: KRAIG LR CNP Planned Medications INFUSION, NORMAL SALINE SOLUTION , 1000 CC Ordered: 31-May-2012 Pending Christianne Bundy MD INFUSION, NORMAL SALINE SOLUTION , 1000 CC Ordered: 20-Feb-2014 Pending Cherelle Blankenship CNP INFUSION, NORMAL SALINE SOLUTION , 1000 CC Ordered: 05-May-2016 Pending Fast DO, Jessica A INFUSION, NORMAL SALINE SOLUTION , 1000 CC Ordered: 05-May-2016 Pending Fast DO, Jessica A INFUSION, NORMAL SALINE SOLUTION , 1000 CC Ordered: 26-Jan-2018 Pending Cherelle Blankenship CNP INJECTION, KETOROLAC TROMETHAMINE, PER 15 MG Ordered: 14-Mar-2010 Pending Ciesa SUMAC TANNER, Willa INJECTION, KETOROLAC TROMETHAMINE, PER 15 MG Ordered: 30-Jan-2013 Pending Ciesa SUMAC TANNER, Willa INJECTION, KETOROLAC TROMETHAMINE, PER 15 MG Ordered: 08-Nov-2014 Pending Lisa Ziegler DO Toney DO, Lisa INJECTION, KETOROLAC TROMETHAMINE, PER 15 MG Ordered: 03-Dec-2016 Pending Janelle Oates INJECTION, KETOROLAC TROMETHAMINE, PER 15 MG Ordered: 04-Dec-2016 Pending Lisa Ziegler DO DO, Lisa Phenergan 50 MG/ML Injection Solution Ordered: 20-Feb-2014 Pending Ciesa SUMAC TANNER, Willa Phenergan 50 MG/ML Injection Solution Ordered: 05-May-2016 Pending Jessica Bro DO Instructions Name Dates Details Tobacco use : How to access health information online Indication: Tobacco use Tobacco use : How to access health information online - Detail Indication: Tobacco use Tobacco use : Patient Instructions Indication: Tobacco use BMI 33.0-33.9,adult : How to access health information online Indication: BMI 33.0-33.9,adult BMI 33.0-33.9,adult : How to access health information online - Detail Indication: BMI 33.0-33.9,adult BMI 33.0-33.9,adult : Patient Instructions Indication: BMI 33.0-33.9,adult Tobacco use : How to access health information online Indication: Tobacco use Tobacco use : How to access health information online - Detail Indication: Tobacco use Tobacco use : Patient Instructions Indication: Tobacco use BMI 31.0-31.9,adult : How to access health information online Indication: BMI 31.0-31.9,adult BMI 31.0-31.9,adult : How to access health information online - Detail Indication: BMI 31.0-31.9,adult Irritable bowel syndrome : Patient Instructions Indication: Irritable bowel syndrome Hyperglyceridemia : How to access health information online Indication: Hyperglyceridemia Hyperglyceridemia : How to access health information online - Detail Indication: Hyperglyceridemia Hyperglyceridemia : Patient Instructions Indication: Hyperglyceridemia Tobacco use : How to access health information online - Detail Indication: Tobacco use Tobacco use : How to access health information online Indication: Tobacco use Tobacco use : Patient Instructions Indication: Tobacco use Tobacco use : How to access health information online Indication: Tobacco use Tobacco use : How to access health information online - Detail Indication: Tobacco use Tobacco use : Patient Instructions Indication: Tobacco use Tobacco use : How to access health information online Indication: Tobacco use Tobacco use : How to access health information online - Detail Indication: Tobacco use Tobacco use : Patient Instructions Indication: Tobacco use Tobacco use : How to access health information online Indication: Tobacco use Tobacco use : How to access health information online - Detail Indication: Tobacco use Tobacco use : Patient Instructions Indication: Tobacco use BMI 30.0-30.9,adult : How to access health information online Indication: BMI 30.0-30.9,adult BMI 30.0-30.9,adult : How to access health information online - Detail Indication: BMI 30.0-30.9,adult BMI 30.0-30.9,adult : Patient Instructions Indication: BMI 30.0-30.9,adult Intractable vomiting with nausea, unspecified vomiting type : How to access health information online Indication: Intractable vomiting with nausea, unspecified vomiting type Intractable vomiting with nausea, unspecified vomiting type : How to access health information online - Detail Indication: Intractable vomiting with nausea, unspecified vomiting type Intractable vomiting with nausea, unspecified vomiting type : Patient Instructions Indication: Intractable vomiting with nausea, unspecified vomiting type Tobacco use : How to access health information online Indication: Tobacco use Tobacco use : How to access health information online - Detail Indication: Tobacco use Tobacco use : Patient Instructions Indication: Tobacco use Dysuria : How to access health information online Indication: Dysuria Dysuria : How to access health information online - Detail Indication: Dysuria Dysuria : Patient Instructions Indication: Dysuria UTI symptoms : How to access health information online Indication: UTI symptoms UTI symptoms : How to access health information online - Detail Indication: UTI symptoms UTI symptoms : Patient Instructions Indication: UTI symptoms Hypercholesterolemia : How to access health information online Indication: Hypercholesterolemia Hypercholesterolemia : How to access health information online - Detail Indication: Hypercholesterolemia Hypercholesterolemia : Patient Instructions Indication: Hypercholesterolemia Irritable bowel syndrome : Patient Instructions Indication: Irritable bowel syndrome Vitamin D deficiency : Patient Instructions Indication: Vitamin D deficiency Abnormal lung sounds : How to access health information online Indication: Abnormal lung sounds Abnormal lung sounds : How to access health information online - Detail Indication: Abnormal lung sounds Abnormal lung sounds : Patient Instructions Indication: Abnormal lung sounds Thrush, oral : How to access health information online Indication: Thrush, oral Thrush, oral : How to access health information online - Detail Indication: Thrush, oral Thrush, oral : Patient Instructions Indication: Thrush, oral Headache : How to access health information online - Detail Indication: Headache Headache : How to access health information online Indication: Headache Headache : Patient Instructions Indication: Headache Headache : How to access health information online Indication: Headache Headache : How to access health information online - Detail Indication: Headache Headache : Patient Instructions Indication: Headache Anxiety : How to access health information online Indication: Anxiety Anxiety : How to access health information online - Detail Indication: Anxiety Anxiety : Patient Instructions Indication: Anxiety Headache : How to access health information online Indication: Headache Headache : How to access health information online - Detail Indication: Headache Itchy eyes : Patient Instructions Indication: Itchy eyes Myalgia : How to access health information online Indication: Myalgia Hyperglyceridemia : How to access health information online Indication: Hyperglyceridemia Hyperglyceridemia : How to access health information online - Detail Indication: Hyperglyceridemia Hyperglyceridemia : Patient Instructions Indication: Hyperglyceridemia Medication side effect : Patient Instructions Indication: Medication side effect Stress reaction : Patient Instructions Indication: Stress reaction Nausea and vomiting : Patient Instructions Indication: Nausea and vomiting VOLUME DEPLETION DISORDER; DEHYDRATION : Patient Instructions Indication: VOLUME DEPLETION DISORDER; DEHYDRATION Anxiety : Patient Instructions Indication: Anxiety Shoulder Pain : Patient Instructions Indication: Shoulder Pain Hyperglyceridemia : Patient Instructions Indication: Hyperglyceridemia Hypercholesterolemia : Patient Instructions Indication: Hypercholesterolemia Hypercholesterolemia : DISCONTINUED - Renal function Panel (19137) Indication: Hypercholesterolemia Hypercholesterolemia : DISCONTINUED - Lipid Panel (37506) Indication: Hypercholesterolemia Hypercholesterolemia : Patient Instructions Indication: Hypercholesterolemia Encounters Office Visit On: 01-Feb-2018 8:44 Encounter Reason: Diarrhea - The onset of the diarrhea has been acute and has been occurring for 1 day. Note for Diarrhea: Did well after IV then Oct 1 had BM and then diarrhea, x5 . Tired of poopingEncounter Diagnosis: Tobacco use, End: 01-Feb-2018 9:34 BMI 32.0-32.9,adult, Diarrhea [facility] Office Visit On: 26-Jan-2018 9:26 Encounter Reason: Diarrhea - The onset of the diarrhea has been acute. The symptoms have been associated with nausea and vomiting. Note for Diarrhea: Diarrhea for a week or more, 3 liquid stools since this am, some abd End: 26-Jan-2018 11:31 pain. Dizzy and lightheaded. Thought it was prozac, stopped taking it, but still with symptomsEncounter Diagnosis: BMI 33.0-33.9,adult, Tobacco use, Dehydration, SYMPTOM, DIARRHEA NOS (787.91) [facility] Office Visit On: 21-Jan-2018 11:02 Encounter Reason: Nausea - Symptoms include nausea and emesis. Symptom onset was 4 day(s) ago. Onset followed a change in medication (prozac) and exposure to an individual with similar symptoms. Associated symptoms inclu End: 21-Jan-2018 12:10 de diarrhea. Note for Nausea: also has lightheadednessNauseatedEncounter Diagnosis: Tobacco use, Anxiety, Abdominal discomfort, BMI 33.0-33.9,adult, Nausea [facility] Office Visit On: 17-Jun-2017 10:08 Encounter Reason: Diarrhea - Adult - Onset was 1 week(s) ago. Note for Diarrhea: Symptoms started about 1 week with diarrhea, not feeling good, No abd cramping, bloating, fever, chills, nausea or vomiting. Increased hussain End: 17-Jun-2017 11:05 wel movements(2-3x day-soft stool) for about 1 week and then last night had 5 episodes of diarrhea after eating. More stressed right now-boyfriend is on house arrest- Has history of IBS. 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 Encounter Diagnosis: BMI 31.0-31.9,adult, Irritable bowel syndrome (564.1), Tobacco use, Diarrhea [facility] Phone Encounter On: 15-Mar-2017 12:45 Encounter Diagnosis: Unspecified Diagnosis End: 15-Mar-2017 12:50 [facility] Phone Encounter On: 05-Mar-2017 8:56 Encounter Diagnosis: Leukocytosis, unspecified type End: 05-Mar-2017 8:57 [facility] Office Visit On: 04-Mar-2017 7:09 Encounter Reason: Follow up for chronic medical issues - The patient does not feel well (gutierrez hurts), has decreased energy level and is sleeping well. Patient has been compliant with instructions. Current medication use End: 04-Mar-2017 7:42 : no side effects and compliant with dosing regimen. Patient sleeps 8 hours per night. Nutrition: balanced diet and supplemental vitamins. The medical issues the patient is following up for include All identified problems below, high cholesterol and other.Encounter Diagnosis: Tobacco use, Hyperglyceridemia, BMI 31.0-31.9,adult, Hypercholesterolemia, Influenza vaccination declined (Renamed from Refused influenza vaccine), Elevated blood pressure reading, Anxiety (300.00), Irritable bowel syndrome (564.1), Low back pain potentially associated with radiculopathy [facility] Office Visit On: 25-Feb-2017 10:26 Encounter Reason: Back Pain - This condition occurred without any known injury. The injury involved the mid back and lower back. Symptoms include back pain, spasm and stiffness. Onset was gradual month(s) ago.Encounter Diagnosis: BMI 30.0-30.9,adult End: 25-Feb-2017 11:15 , Tobacco use, Low back pain potentially associated with radiculopathy, Sciatica, left side, Influenza vaccination declined (Renamed from Refused influenza vaccine) [facility] Office Visit On: 24-Dec-2016 7:23 Encounter Reason: Follow up tests - Date: (12/17 and 12/11 labs and u/s).Encounter Diagnosis: BMI 30.0-30.9,adult, Tobacco use, Abnormal CAT scan, Ovarian cyst, Pleural effusion, bilateral, Hepatomegaly, not elsewhere classified End: 24-Dec-2016 8:37 [facility] Office Visit On: 16-Dec-2016 9:13 Encounter Diagnosis: Lesion of ovary End: 16-Dec-2016 9:16 [facility] Office Visit On: 04-Dec-2016 11:42 Encounter Reason: Follow up tests - Date: (12/03/16 labs and test).Encounter Diagnosis: BMI 30.0-30.9,adult, Tobacco use, Abnormal CAT scan, Flank pain, acute, Acute back pain, unspecified back location, unspecified back pain laterality End: 04-Dec-2016 13:05 [facility] Phone Encounter On: 03-Dec-2016 15:04 Encounter Diagnosis: Leukocytopenia End: 03-Dec-2016 15:23 [facility] Annotation/Addendum On: 03-Dec-2016 11:27 [facility] End: 03-Dec-2016 11:32 Office Visit On: 03-Dec-2016 9:15 Encounter Diagnosis: BMI 30.0-30.9,adult, Tobacco use, Flank pain, acute, Nausea, Unable to void, Diarrhea, unspecified type, Elevated blood pressure reading End: 03-Dec-2016 11:24 [facility] Phone Encounter On: 21-Oct-2016 13:31 Encounter Diagnosis: Hypercholesterolemia, Vitamin D deficiency, Hyperglyceridemia End: 21-Oct-2016 13:42 [facility] Office Visit On: 28-Aug-2016 7:02 Encounter Reason: Follow up tests - Date: (08/18/16)., [ADDITIONAL REASON] Follow up for chronic medical issues - The patient feels well with minor complai End: 28-Aug-2016 7:30 nts, has good energy level and is sleeping well. Patient has been compliant with instructions. Current medication use: no side effects and compliant with dosing regimen. Patient sleeps 10 hours per nigh t. Nutrition: poor nutrition. The medical issues the patient is following up for include All identified problems below, high cholesterol and other. Encounter Diagnosis: Tobacco use, BMI 30.0-30.9,adult, Irritable bowel syndrome (564.1), Vitamin D deficiency, Hypercholesterolemia, Hyperglyceridemia, Allergic rhinitis due to allergen [facility] Office Visit On: 05-May-2016 8:26 Encounter Reason: Flu Like Symptoms - Symptoms include fever and chills, while symptoms do not include body aches, nasal congestion, runny nose, sore throat, hoarseness, dry cough, productive cough, facial pressure, faci End: 05-May-2016 11:27 al pain or headache. Onset was sudden 1 day(s) ago. There is no known event that preceded symptom onset. The symptoms occur frequently. The patient describes this as unchanged. Associated symptoms inclu de fatigue, nausea, vomiting and fever, while associated symptoms do not include plugged ear(s), ear pain, wheezing, shortness of breath or diarrhea. The patient is not currently being treated for this problem. Note for Flu like symptoms: had chills didnt take temp- started yesterday at 10 am dont think ate anything that caused- apparently went thru her part of family- is nauseated- cant keep anythi ng down- no abd pain or diarrhea- took zofran yesterday not thinking helpedEncounter Diagnosis: Intractable vomiting with nausea, unspecified vomiting type, Tobacco use, Dehydration [facility] Office Visit On: 10-Apr-2016 10:10 Encounter Reason: Follow up tests - Date: (04.07.16)., [ADDITIONAL REASON] Follow up acute care visit - The patient feels the same (I am voiding but not as End: 10-Apr-2016 11:09 much as I should). The medical issues the patient is following up for include other (abdominal pain). Encounter Diagnosis: BMI 29.0-29.9,adult, Tobacco use, Abdominal pain, unspecified abdominal location, Leukocytosis, unspecified type [facility] Annotation/Addendum On: 07-Apr-2016 14:35 Encounter Diagnosis: Unspecified Diagnosis End: 07-Apr-2016 14:38 [facility] Office Visit On: 07-Apr-2016 9:10 Encounter Reason: UTI - The urinary symptoms are described as painful urination, flank pain, groin pain and burning. The symptoms have been recurrent. The urine is described as milky (cloudy). The symptoms have been ass End: 07-Apr-2016 9:34 ociated with abdominal pain and low back pain.Encounter Diagnosis: Tobacco use, BMI 29.0-29.9,adult, Abdominal pain, unspecified abdominal location, Dysuria (788.1) [facility] Office Visit On: 02-Mar-2016 8:47 Encounter Reason: UTI - The urinary symptoms are described as frequency, groin pain and retention. The symptoms have been occurring for 2 days. The urine is described as milky (cloudy). The symptoms have been associated End: 02-Mar-2016 9:33 with abdominal pain. Note for Infection: urinary retension, frequency Encounter Diagnosis: UTI symptoms [facility] Office Visit On: 14-Feb-2016 7:01 Encounter Reason: Follow up tests - Date: (11/23/15)., [ADDITIONAL REASON] Follow up for chronic medical issues - The patient feels well with minor complai End: 14-Feb-2016 7:31 nts, has decreased energy level and is sleeping well. Patient has been compliant with instructions. Current medication use: no side effects and compliant with dosing regimen. Patient sleeps 6 hours per night. Nutrition: balanced diet and supplemental vitamins. The medical issues the patient is following up for include All identified problems below, depression, high blood pressure and high cholesterol. Encounter Diagnosis: Hypercholesterolemia, Vitamin D deficiency, Tobacco use, Irritable bowel syndrome (564.1), Anxiety (300.00) [facility] Office Visit On: 15-Aug-2015 7:55 Encounter Reason: Follow up for chronic medical issues - The patient feels well with minor complaints, has decreased energy level and is sleeping well. Patient has been compliant with instructions. Current medication use End: 15-Aug-2015 8:45 : no side effects and compliant with dosing regimen. Patient sleeps 8 hours per night. Nutrition: inappropriate diet and supplemental vitamins. The medical issues the patient is following up for include All identified problems below and depression. Encounter Diagnosis: Vitamin D deficiency, Hypercholesterolemia, Anxiety (300.00), Tobacco use, Irritable bowel syndrome (564.1), Muscle spasm (728.85) [facility] Office Visit On: 08-Aug-2015 7:26 Encounter Reason: Cough - No changes in management were made at the last visit. Symptoms include cough and wheezing. The cough is described as hacking and moist. Cough onset was sudden. There is no known event that preceded symptom onset. End: 08-Aug-2015 12:21 Encounter Diagnosis: Abnormal lung sounds, Cough, Fever and chills [facility] Office Visit On: 01-Aug-2015 7:40 Encounter Reason: Joint Pain - The last clinic visit was 1 month(s) ago. No changes in management were made at the last visit. Symptoms include joint pain, decreased range of motion and morning stiffness. The patient melvin End: 01-Aug-2015 9:40 cribes the pain as aching. Onset was gradual. The symptoms occur constantly. The patient describes this as moderate in severity., [ADDITIONAL REASON] Follow up ER - Reason for hospitalization note: (cough). Patient has been compli ant with instructions. The patient does not feel well. Encounter Diagnosis: Bilateral low back pain without sciatica, Iliotibial band tendinitis of both sides, Patellar tendinitis of right knee, Tendonitis of elbow or forearm, Thrush, oral, Fever and chills, Cough, Acute bronchitis due to other specified organisms, Abnormal lung sounds, Tobacco use [facility] Office Visit On: 24-Jul-2015 8:50 Encounter Reason: Edema - No changes in management were made at the last visit. Symptoms include edema. Onset was sudden. There is no known event that preceded symptom onset. The symptoms occur constantly. The patient de End: 24-Jul-2015 13:37 scribes this as moderate in severity and worsening. Note for Edema: stephen left elbow it looks bruised. But at my job I dont move around so all my joints swell and hurt. I am taking 8 to 12 tylenol or ibuprofen., [ADDITIONAL REASON] Thrush , [ADDITIONAL REASON] Joint Pain - The last clinic visit was 1 month(s) ago. No changes in management were made at the last visit. Symptoms include joint pain, decreased range of motion and morning stiff ness. The patient describes the pain as aching. Onset was gradual. The symptoms occur constantly. The patient describes this as moderate in severity. Encounter Diagnosis: Tobacco use, Thrush, oral, Tendonitis of elbow or forearm, Patellar tendinitis of right knee, Iliotibial band tendinitis of both sides, Bilateral low back pain without sciatica [facility] Office Visit On: 08-Jul-2015 9:17 Encounter Reason: Nausea - The last clinic visit was 5 day(s) ago. No changes in management were made at the last visit. Symptoms include nausea and abdominal pain. Symptom onset was sudden 5 day(s) ago. There is no know End: 08-Jul-2015 10:12 n event that preceded symptom onset. The symptoms occur constantly. The episodes occur daily. The patient describes this as unchanged. Symptoms are not exacerbated by drinking fluids, eating solids, leo ing medications, iron supplements, dairy products, spicy foods or motion. Symptoms are not relieved by drinking fluids, eating food, antiemetics, antihistamines, stopping medication or discontinuing mot ion. Associated symptoms include fatigue. By report there is good compliance with treatment. Previous presentation included nausea, emesis, abdominal pain and fatigue.Encounter Diagnosis: Flu-like symptoms, Nausea and vomiting (787.01), Candidiasis, mouth [facility] Office Visit On: 07-Jun-2015 11:58 Encounter Reason: Diarrhea - The onset of the diarrhea has been sudden and has been occurring in a persistent pattern for 4 days. The course has been recurrent. The stools are watery. The volume of the stools is large. T End: 07-Jun-2015 12:32 he symptoms have been associated with nausea.Encounter Diagnosis: SYMPTOM, DIARRHEA NOS (787.91) [facility] Office Visit On: 14-May-2015 8:10 Encounter Reason: Headache - The last clinic visit was 3 week(s) ago. Management changes made at the last visit include adding amitriptyline. Symptoms include nausea and vomiting. The headache is located in the left occi End: 14-May-2015 8:57 pital area and in the right occipital area. There is no radiation. The patient describes the pain as throbbing. Onset was gradual 3 month(s) ago. There is no known event that preceded symptom onset. The symptoms occur intermittently. The headaches occur weekly and last for 2 days. The patient describes this as unchanged. Symptoms are relieved by nonsteroidal anti-inflammatory drugs. Associated symptom s do not include fever, chills, scalp tenderness, vertigo, ataxia, dysarthria, aphasia, diplopia, vision loss, confusion or tinnitus. Current treatment includes nonsteroidal anti-inflammatory drugs. Pre vious presentation included different headache features and nausea. Past treatment has included nonsteroidal anti-inflammatory drugs. Note for Headache: getting headaches once a week, for last 2 month s. Sometime frontal other times in back of head. Off work last 2 days. Got blood work up for hypertension workup was told that was normal. And was seeing Dr. South put me on amytryptiline 10mg in am, ins urance wants to have script since dose was increased Encounter Diagnosis: Headache, Anxiety (300.00) [facility] Visit On: 23-Apr-2015 7:48 Encounter Reason: Follow up acute care visit - The patient feeling better since last seen and improving. Patient has been compliant with instructions. Current medication use: no side effects and compliant with dosing reg End: 23-Apr-2015 19:08 imen. The medical issues the patient is following up for include All identified problems below, high blood pressure (118/80, 133/92, 116/71, 117/72, ??107/65 ?107/68) and other (New).Encounter Diagnosis: Knee pain (719.46), Headache [facility] Office Visit On: 09-Apr-2015 12:56 Encounter Reason: Headache - Symptoms include vomiting.Encounter Diagnosis: Headache End: 09-Apr-2015 14:31 [facility] Visit On: 05-Apr-2015 7:30 Encounter Reason: Follow up for chronic medical issues - The patient feels well with minor complaints, has good energy level and is sleeping well. Patient has been compliant with instructions. Current medication use: no End: 05-Apr-2015 8:31 side effects and compliant with dosing regimen. Patient sleeps 8 hours per night. Nutrition: balanced diet and supplemental vitamins. 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 The headache is located in the left frontal area and in the right frontal area. The patient describes the pain as sharp and knife-lik End: 21-Feb-2015 11:22 e. Onset was sudden 1 day(s) ago. Onset followed a stressful event and caffeine cessation. The headaches last for 1 day. The patient describes this as moderate in severity and improving. Symptoms are ex acerbated by stress. Symptoms are relieved by sleep.Encounter Diagnosis: Headache, Tobacco Use (305.1), Elevated blood-pressure reading without diagnosis of hypertension, Stress reaction, emotional, Nausea and/or vomiting [facility] Visit On: 08-Nov-2014 12:08 Encounter Reason: Headache - The last clinic visit was 3 day(s) ago. No changes in management were made at the last visit. Symptoms include new onset headache, typical headache features, nausea and vomiting. There is no End: 08-Nov-2014 14:37 radiation. The symptoms occur constantly. Note for Headache: top, [ADDITIONAL REASON] Eye Redness - No changes in management were made at the last visit. Symptoms inc lude eye redness and lid bumps, while symptoms do not include eye itching or eye burning. Symptoms are located in the left eye and right eye. There is no known event that preceded symptom onset. The sym ptoms occur constantly. The patient describes this as severe. Encounter Diagnosis: Itchy eyes, Allergic rhinitis due to allergen, Headache [facility] Office Visit On: 02-Jul-2014 9:28 Encounter Reason: Follow up tests - Date: (06/25/14 labs)., [ADDITIONAL REASON] Follow up for chronic medical issues - The patient feels well with minor complai End: 02-Jul-2014 10:15 nts, has good energy level and is sleeping well. Patient has been compliant with instructions. Current medication use: no side effects and compliant with dosing regimen. Patient sleeps 7 hours per night . Nutrition: inappropriate diet and supplemental vitamins. The medical issues the patient is following up for include All identified problems below, depression (anxiety) and high cholesterol. Encounter Diagnosis: Hypercholesterolemia (272.0), Anxiety (300.00), Irritable bowel syndrome (564.1), SYMPTOMS INVOLVING DIGESTIVE SYSTEM; HEARTBURN (787.1) [facility] Phone Encounter On: 20-Jun-2014 16:45 Encounter Diagnosis: Hypercholesterolemia (272.0) End: 20-Jun-2014 16:47 [facility] Erroneous Entry On: 20-Feb-2014 9:58 Encounter Diagnosis: Unspecified Diagnosis End: 20-Feb-2014 16:43 [facility] Office Visit On: 20-Feb-2014 8:08 Encounter Reason: Flu Like Symptoms - Symptoms include body aches, hoarseness, dry cough and headache. Onset was sudden day(s) ago. There is no known event that preceded symptom onset. The symptoms occur constantly. The End: 20-Feb-2014 9:57 patient describes this as moderate in severity and worsening. Associated symptoms include fatigue, nausea and diarrhea.Encounter Diagnosis: Myalgia, Nausea and/or vomiting, VOLUME DEPLETION DISORDER; DEHYDRATION (276.51) [facility] Office Visit On: 05-Jan-2014 8:25 Encounter Reason: Follow up tests - Date: (12/28/13 labs)., [ADDITIONAL REASON] Follow up for chronic medical issues - The patient does not feel well, has decre End: 05-Jan-2014 9:30 ased energy level and is sleeping poorly. Patient has been compliant with instructions. Current medication use: no side effects and compliant with dosing regimen. Patient sleeps 6 hours per night. Nutri tion: inappropriate diet. The medical issues the patient is following up for include All identified problems below, depression (anxiety), high cholesterol and other (IBS). Encounter Diagnosis: Hypercholesterolemia (272.0), Irritable bowel syndrome (564.1), Hypertriglycerides (272.1), Anxiety (300.00) [facility] Office Visit On: 10-Jul-2013 8:27 Encounter Diagnosis: Abnormal TSH (794.5), Medication side effect, Hypercholesterolemia (272.0), SYMPTOM, DIARRHEA NOS (787.91) End: 10-Jul-2013 8:47 [facility] Office Visit On: 26-Jun-2013 9:09 Encounter Reason: Headache - The last clinic visit was 3 day(s) ago. No changes in management were made at the last visit. Symptoms include typical headache features.Encounter Diagnosis: Muscle tension headache End: 26-Jun-2013 9:50 [facility] Office Visit On: 15-Jun-2013 7:52 Encounter Reason: Follow up acute care visit - The patient does not feel well. Patient has been compliant with instructions. Current medication use: no side effects and compliant with dosing regimen. Patient sleeps 7 melba End: 15-Jun-2013 12:12 rs per night. Nutrition: balanced diet.Encounter Diagnosis: Irritable bowel syndrome (564.1), SYMPTOM, DIARRHEA NOS (787.91), Anxiety (300.00), Stress reaction [facility] Office Visit On: 05-Jun-2013 11:06 Encounter Reason: Headache - The last clinic visit was 1 day(s) ago. No changes in management were made at the last visit. Symptoms include new onset headache. The patient describes the pain as aching. There is no known End: 05-Jun-2013 11:43 event that preceded symptom onset. The patient describes this as moderate in severity.Encounter Diagnosis: Nausea and vomiting (787.01), Gastroenteritis(009.0) [facility] Office Visit On: 02-May-2013 8:03 Encounter Reason: Diarrhea - The onset of the diarrhea has been sudden and has been occurring in a persistent pattern for 2 days. The course has been constant. The stools are watery. The volume of the stools is large. Th End: 02-May-2013 8:30 e symptoms have been associated with nausea and vomiting, while the symptoms have not been associated with fever., [ADDITIONAL REASON] Forms - The patient presents to the office to be evaluate for work form (see scanned in form filled out). Encounter Diagnosis: Nausea and vomiting (787.01), SYMPTOM, DIARRHEA NOS (787.91), VOLUME DEPLETION DISORDER; DEHYDRATION (276.51) [facility] Office Visit On: 28-Apr-2013 11:29 Encounter Reason: Follow up for chronic medical issues - The patient feels well with no complaints, has decreased energy level and is sleeping well. Current medication use: no side effects and compliant with dosing regim End: 28-Apr-2013 12:24 en. Patient sleeps 8 hours per night. Nutrition: inappropriate diet and supplemental vitamins. The medical issues the patient is following up for include All identified problems below, depression and high cholesterol.Encounter Diagnosis: Hypercholesterolemia (272.0), Anxiety (300.00), SYMPTOMS INVOLVING DIGESTIVE SYSTEM; HEARTBURN (787.1) [facility] Office Visit On: 16-Feb-2013 14:10 Encounter Reason: Arm pain - The onset of the pain has been sudden and has been occurring in a persistent pattern for 2 days. The course has been constant. The pain is described as severe. The pain is described as being End: 16-Feb-2013 15:00 located in the left shoulder and left humerus. The pain is aggravated by reaching and lifting. The pain is relieved by nothing. Note for Pain: repetivie motion wiht alumunouim is when it started -- no overhead injryEncounter Diagnosis: Shoulder Pain (719.41) [facility] Office Visit On: 30-Jan-2013 8:25 Encounter Reason: Headache - Symptoms include photophobia, while symptoms do not include nausea, vomiting, phonophobia or numbness. There is no radiation. The patient describes the pain as dull and throbbing. Onset was s End: 30-Jan-2013 16:52 udden 1 day(s) ago. There is no known event that preceded symptom onset. The symptoms occur constantly.Encounter Diagnosis: Headache (784.0) [facility] Office Visit On: 26-Dec-2012 8:00 Encounter Reason: Cough - The onset of the cough has been sudden. The cough is characterized as dry. The cough occurs all the time. The symptoms are aggravated by supine posture. The symptoms have been associated with h End: 26-Dec-2012 8:41 eadache, hoarseness, runny nose, sore throat (d/t cough) and wheezing, while the symptoms have not been associated with fever.Encounter Diagnosis: SYMPTOMS INVOLVING RESPIRATORY SYSTEM AND OTHER CHEST SYMPTOMS; COUGH (786.2), BRONCHITIS, NOT SPECIFIED ACUTE OR CHRONIC (490.), Wheezing (786.07) [facility] Office Visit On: 06-Oct-2012 7:37 Encounter Reason: Follow up for chronic medical issues - The patient feels well with minor complaints, has decreased energy level and is sleeping well. Current medication use: no side effects. Patient sleeps 9 hours per End: 06-Oct-2012 8:18 night. Nutrition: inappropriate diet and supplemental vitamins. The medical issues the patient is following up for include All identified problems below, depression and high cholesterol., [ADDITIONAL REASON] Follow up tests - Date: (lipid August 2012). Encounter Diagnosis: Hypertriglycerides (272.1), Hypercholesterolemia (272.0), Anxiety (300.00), SYMPTOMS INVOLVING DIGESTIVE SYSTEM; HEARTBURN (787.1) [facility] Office Visit On: 31-May-2012 12:11 Encounter Reason: Flu Like Symptoms - Onset was 2 day(s) ago. Note for Flu like symptoms: had vomiting headache and earache wednesday. cold and hot not check temperature. little sore throat. little cough dry. slight End: 06-Jun-2012 6:48 diarrhea. getting better. not feel back to self. not eating well yet. still some nausea. drink as can. off work last 2 days., [ADDITIONAL REASON] Forms - The patient presents to the office to be evaluate for disability (short term disability for flu sx) (see scanned in form filled out). Encounter Diagnosis: Viral infection, unspecified (079.99), VOLUME DEPLETION DISORDER; DEHYDRATION (276.51) [facility] Office Visit On: 10-May-2012 8:05 Encounter Reason: Follow up tests - Date: (04/27/12 labs)., [ADDITIONAL REASON] Follow up for chronic medical issues - The patient feels well with minor complai End: 10-May-2012 10:10 nts, has decreased energy level and is sleeping well. Patient has been compliant with instructions. Current medication use: no side effects. Patient sleeps 9 hours per night. Nutrition: inappropriate di et and supplemental vitamins. The medical issues the patient is following up for include All identified problems below, depression and high cholesterol. Encounter Diagnosis: Hypercholesterolemia (272.0), Anxiety (300.00), Irritable bowel syndrome (564.1), Tinea corporis (110.5), SYMPTOMS INVOLVING DIGESTIVE SYSTEM; HEARTBURN (787.1) [facility] Office Visit On: 09-Feb-2012 11:01 Encounter Reason: Diarrhea - The onset of the diarrhea has been sudden and has been occurring in a persistent pattern for 4 days. The course has been constant. The stools are watery. The volume of the stools is normal. T End: 09-Feb-2012 13:23 he symptoms have been associated with abdominal pain, nausea and vomiting, while the symptoms have not been associated with fever. Note for Diarrhea: I need excuse for sickness I have een off work for 2-3 days . Sneeze, cough , diarrhea stool x 2 no eating Encounter Diagnosis: Viral infection, unspecified (079.99), SYMPTOMS INVOLVING RESPIRATORY SYSTEM AND OTHER CHEST SYMPTOMS; COUGH (786.2), Wheezing (786.07), SYMPTOM, DIARRHEA NOS (787.91) [facility] Office Visit On: 01-Feb-2012 8:05 Encounter Reason: Follow up tests - Date: (01/15/12 labs)., [ADDITIONAL REASON] Follow up for chronic medical issues - The patient feels well with minor complai End: 01-Feb-2012 9:44 nts, has good energy level and is sleeping well. Patient has been compliant with instructions. Current medication use: no side effects and compliant with dosing regimen. Patient sleeps 8 hours per night . Nutrition: inappropriate diet and supplemental vitamins. The medical issues the patient is following up for include All identified problems below, high blood pressure and high cholesterol. Encounter Diagnosis: Hypercholesterolemia (272.0), Irritable bowel syndrome (564.1), SYMPTOMS INVOLVING RESPIRATORY SYSTEM AND OTHER CHEST SYMPTOMS; COUGH (786.2), Diarrhea (787.91), Leukocytosis (288.8), Anxiety (300.00), Passage of bloody stools (578.1), Epigastric pain (789.06), Sinusitis,acute (461.9), Need for prophylactic vaccination and inoculation against influenza (V04.81) [facility] Phone Encounter On: 12-Oct-2011 12:47 Encounter Diagnosis: Hypercholesterolemia (272.0) End: 12-Oct-2011 12:50 [facility] Office Visit On: 12-Oct-2011 8:20 Encounter Reason: Follow up for chronic medical issues - The patient feels well with minor complaints, has decreased energy level and is sleeping well. Patient has been compliant with instructions. Current medication use End: 12-Oct-2011 9:30 : no side effects and compliant with dosing regimen. Patient sleeps 8 hours per night. Nutrition: inappropriate diet and supplemental vitamins. The medical issues the patient is following up for include All identified problems below and high cholesterol., [ADDITIONAL REASON] Follow up tests - Date: (09/11/11 labs). Encounter Diagnosis: Hypercholesterolemia (272.0), Nausea and vomiting (787.01), Irritable bowel syndrome (564.1), Anxiety (300.00), Dermatitis (692.9), Tinea corporis (110.5) [facility] Lab Order On: 11-Sep-2011 8:41 Encounter Diagnosis: Hypercholesterolemia (272.0) End: 11-Sep-2011 8:44 [facility] Office Visit On: 09-Sep-2011 16:03 Encounter Reason: Headache - The last clinic visit was 4 day(s) ago. No changes in management were made at the last visit. Symptoms include new onset headache, different headache features, nausea and vomiting. The headac End: 09-Sep-2011 16:41 he is located in the entire head (over the top like a cap- feel like head wants to blow up ). There is no radiation. The patient describes the pain as sharp and throbbing. Onset was sudden (they go away but keep coming back -- they are there upon awakening -- taking aleve daily for a week -- 4-5 a day ). There is no known event that preceded symptom onset. The symptoms occur constantly. The patient de scribes this as severe (like hang over h/a) and unchanged (since its started ). Associated symptoms do not include fever or chills. 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-- they throw candy at each other - gallons of water and pour o n each other - lack of respect they try to put finger in my ass - And i know they htink of me as just one of the guys but the environment is just not healthy for me -- i need the job and good wages -- i keep waiting for a different shift/job but so far i have no seniority to get the positiion bc of all the temps they've hired ).Encounter Diagnosis: Headache (784.0), Nausea and vomiting (787.01), Stress Reaction (308.4) [facility] Office Visit On: 26-Aug-2011 8:52 Encounter Reason: Sore Throat - The pain radiates to the left ear and right ear. The patient describes the pain as aching and burning. Onset was sudden 2 week(s) ago. The symptoms occur constantly. The patient describes End: 26-Aug-2011 9:26 this as moderate in severity and worsening. Associated symptoms include hoarseness, ear pain and fatigue, while associated symptoms do not include nausea or cough.Encounter Diagnosis: ACUTE PHARYNGITIS (462.), CANDIDIASIS, MOUTH (THRUSH) (112.0) [facility] Office Visit On: 08-Apr-2011 8:04 Encounter Reason: Follow up for chronic medical issues - The patient does not feel well (body hurts), has decreased energy level and is sleeping well. Patient has been compliant with instructions. Current medication use: End: 08-Apr-2011 8:37 no side effects and compliant with dosing regimen. Patient sleeps 8 hours per night. Nutrition: balanced diet. The medical issues the patient is following up for include All identified problems below, depression and high cholesterol., [ADDITIONAL REASON] Follow up tests - Date: (labs 12/06/10). Encounter Diagnosis: Hypercholesterolemia (272.0), Irritable bowel syndrome (564.1), Anxiety (300.00), COLD SORES (054.2), Eustachian tube dysfunction (381.81), Stress Reaction (308.4), Wheezing (786.07), Contact with or exposure to other communicable diseases (V01.89), SYMPTOMS INVOLVING DIGESTIVE SYSTEM; HEARTBURN (787.1), VOMITING, NOS (787.0), Hematuria (599.7), COUGH, NOS (786.2), CORNS AND CALLOSITIES (700.), External Ear Irritation (698.9), Muscle spasm (728.85), BRONCHITIS, NOT SPECIFIED ACUTE OR CHRONIC (490.) [facility] Office Visit On: 16-Feb-2011 8:16 Encounter Reason: Flu Like Symptoms - The last clinic visit was 3 day(s) ago. No changes in management were made at the last visit. Symptoms include body aches, sneezing, dry cough and facial pressure. Onset was sudden 3 End: 16-Feb-2011 12:08 day(s) ago. Onset followed exposure at home to someone with upper respiratory symptoms (boyfriend also ill with same sx). The symptoms occur constantly.Encounter Diagnosis: SYMPTOMS INVOLVING RESPIRATORY SYSTEM AND OTHER CHEST SYMPTOMS; COUGH (786.2), Eustachian tube dysfunction (381.81), BRONCHITIS, NOT SPECIFIED ACUTE OR CHRONIC (490.) [facility] Office Visit On: 01-Dec-2010 8:42 Encounter Reason: Follow up for chronic medical issues - The patient feels well with minor complaints, has decreased energy level and is sleeping poorly. Patient has been compliant with instructions. Current medication u End: 01-Dec-2010 9:19 se: no side effects and compliant with dosing regimen. Patient sleeps 6 hours per night. Nutrition: inappropriate diet and supplemental vitamins. The medical issues the patient is following up for inclu de All identified problems below and high cholesterol., [ADDITIONAL REASON] UTI - The urinary symptoms are described as frequency and burning. The symptoms have been occurring for 4 days. The urine is described as clear. There has been no associated perineal pain or vulvar lesion. There is no history of sexual contact with a person having an STD. There is no medical history of diabetes, current , vaginitis or kidney stones. The patient denies the use of oral contraceptives, antibiotics, hormone replacement therapy or pyridium/uristat. Encounter Diagnosis: Dysuria (788.1), Anxiety (300.00), Hypertriglycerides (272.1) [facility] Office Visit On: 07-Aug-2010 10:44 Encounter Diagnosis: Anxiety (300.00), Stress Reaction (308.4) End: 07-Aug-2010 11:35 [facility] Office Visit On: 29-Jul-2010 11:05 Encounter Reason: Anxiety - The onset of the anxiety has been gradual and has been occurring in a persistent pattern for months. The course has been increasing. The anxiety is characterized as expectant dread (a jazmyn she End: 29-Jul-2010 11:28 works with has a girlfriend who is very jealous and they are just friends-- and she is trying to get her fired). There are no specific phobias. There were no precipitating factors. The symptoms have bee n associated with agitation and tremors, while the symptoms have not been associated with suicidal thoughts or sweating. Encounter Diagnosis: Anxiety (300.00) [facility] Office Visit On: 25-Jul-2010 7:20 Encounter Reason: Follow up acute care visit - The patient feeling better since last seen. Patient has been compliant with instructions. Current medication use: no side effects. Patient sleeps 6 hours per night. The medi End: 25-Jul-2010 7:45 tash issues the patient is following up for include All identified problems below and other (eustation tube dysfunction )., [ADDITIONAL REASON] Follow up Meds - The patient feels well with minor complaints, has decreased kelly rgy level and is sleeping well. Patient has been compliant with instructions. Current medication use: no side effects, compliant with dosing regimen and not considered effective by patient (paxil is not working). Patient sleeps 8 hours per night. Nutrition: supplemental vitamins. Encounter Diagnosis: Anxiety (300.00), ABUSE, CANNABIS, CONTINUOUS (305.21) [facility] Office Visit On: 01-Jul-2010 8:40 Encounter Reason: Shoulder Pain - The onset of the shoulder pain has been sudden and has been occurring in a persistent pattern for hours. The course has been without change. The shoulder pain is moderate to severe. The End: 01-Jul-2010 9:11 shoulder pain is characterized as a sharp stabbing. The shoulder pain is described as being located in the left shoulder. The shoulder pain is aggravated by any movement (deep breathing ). There are no relieving factors.Encounter Diagnosis: Cervical strain (847.0) [facility] Annotation/Addendum On: 25-Jun-2010 10:31 Encounter Diagnosis: Unspecified Diagnosis End: 25-Jun-2010 10:34 [facility] Office Visit On: 25-Jun-2010 8:53 Encounter Reason: Follow up acute care visit - The patient does not feel well, has decreased energy level and worsening. Patient has been compliant with instructions. Current medication use: no side effects, compliant wi End: 25-Jun-2010 9:23 th dosing regimen (finished last dose of Z keith Wednesday. ) and not considered effective by patient. Patient sleeps 3 (d/t cough ) hours per night. The medical issues the patient is following up for includ e All identified problems below and other (eustation tube dysfunction ).Encounter Diagnosis: Diarrhea (787.91), Headache (784.0), BRONCHITIS, NOT SPECIFIED ACUTE OR CHRONIC (490.), SYMPTOMS INVOLVING RESPIRATORY SYSTEM AND OTHER CHEST SYMPTOMS; COUGH (786.2), Wheezing (786.07) [facility] Office Visit On: 18-Jun-2010 8:19 Encounter Reason: Sinusitis/ - The duration of the symptoms are 2 days The course has been increasing. The sinusitis/ has no relieving factors. Associated features include The symptoms have been associated with cough, ea End: 18-Jun-2010 8:39 r pain (bilatteral - ), nasal discharge/stuffy nose (clear), sinus pain and sore throat, while the symptoms have not been associated with teeth pain. No previous evaluations were reported.Encounter Diagnosis: Eustachian tube dysfunction (381.81), Sinusitis,acute (461.9) [facility] Office Visit On: 13-Jun-2010 7:15 Encounter Reason: Follow up Meds - The patient feels well with minor complaints, has decreased energy level and is sleeping well. Patient has been compliant with instructions. Current medication use: no side effects and End: 13-Jun-2010 7:47 compliant with dosing regimen. Patient sleeps 8 hours per night. Nutrition: supplemental vitamins.Encounter Diagnosis: Anxiety (300.00) [facility] Office Visit On: 06-Jun-2010 9:57 Encounter Reason: Headache - The onset of the headache has been acute and has been occurring in a persistent pattern for days (3). The course has been constant. The headache is characterized as moderate, pounding and a p End: 06-Jun-2010 10:15 ressure sensation. The headache is experienced any time of the day (no diurnal variation). The headache is described as being located in the frontal area. The symptoms are aggravated by tension/nervous strain and bright light. The symptoms have been associated with anxiety, nausea and sinusitis in the past. Note for Headache: mild not worse of lifeEncounter Diagnosis: Gastroenteritis (558.9), Headache (784.0) [facility] Error Encounter On: 02-Jun-2010 8:55 Encounter Diagnosis: Hypercholesterolemia (272.0) End: 02-Jun-2010 8:56 [facility] Office Visit On: 20-May-2010 10:27 Encounter Reason: Follow up for chronic medical issues - The patient feels well with minor complaints, has good energy level and is sleeping well. Patient has been compliant with instructions. Current medication use: no End: 20-May-2010 11:03 side effects and compliant with dosing regimen. Patient sleeps 7 hours per night. Impact of disease: emotional impact-moderate. Nutrition: balanced diet and supplemental vitamins. The medical issues the patient is following up for include depression (anxiety ) and other (IBS, obesity, tobacco use ).Encounter Diagnosis: Anxiety (300.00), ABUSE, CANNABIS, CONTINUOUS (305.21), Hypercholesterolemia (272.0), Tobacco Use (305.1), Irritable bowel syndrome (564.1), WWV V70.00 [place] [facility] Office Visit On: 15-Apr-2010 11:14 Encounter Reason: UTI - The urinary symptoms are described as painful urination, frequency and flank pain. The symptoms have been occurring for days (4). The symptoms have been associated with lightheadedness.Encounter Diagnosis: Hematuria (599.7), End: 15-Apr-2010 11:39 Eustachian tube dysfunction (381.81) [facility] Office Visit On: 14-Mar-2010 8:06 Encounter Reason: Back pain - The onset of the pain has been sudden and has been occurring in a persistent pattern for 3 days. The course has been increasing. The pain is characterized as a dull ache. The pain is describ End: 14-Mar-2010 8:56 ed as being located in the lower back. The pain does not radiate. The symptoms are aggravated by exertion. The symptoms are relieved by rest. The pain has been associated with back stiffness, while ther e has been no abdominal pain, chills, hip pain, history of back surgery, leg weakness or paresthesias in leg.Encounter Diagnosis: Low back pain (724.2) [facility] Office Visit On: 24-Feb-2010 8:46 Encounter Reason: Flu like symptoms - The onset of the flu like symptoms has been sudden and they have been occurring in a persistent pattern for 3 days. The course has been decreasing. The flu like symptoms are described as moderate. End: 24-Feb-2010 9:03 Encounter Diagnosis: Viral infection, unspecified (079.99), Eustachian tube dysfunction (381.81), VOMITING, NOS (787.0) [facility] Office Visit On: 13-Jan-2010 8:53 Encounter Reason: Leg pain - The leg pain began gradually over time and has been occurring for 1 weeks. The symptoms have been occurring in an intermittent pattern. The symptoms are described as a cramping and are severe End: 13-Jan-2010 9:28 . The symptoms occur at rest and on exertion. There is involvement of the lower extremities (both). There are no precipitating factors. Aggravating factors include exertion. There are no relieving facto rs. There has been no associated calf swelling. There have been no previous evaluations. Encounter Diagnosis: Muscle spasm (728.85) [facility] Phone Encounter On: 31-Dec-2009 8:46 [facility] End: 31-Dec-2009 8:47 Office Visit On: 22-Nov-2009 8:00 Encounter Reason: Follow up Meds - The patient feels well with minor complaints (i just hate work so i dont know if rx is going to be the magic bullet) ,has decreased energy level and is sleeping well. Patient has been c End: 22-Nov-2009 9:26 ompliant with instructions. Current medication use: no side effects and compliant with dosing regimen. Patient sleeps 6 hours per night. Nutrition: balanced diet. , [ADDITIONAL REASON] Follow up, Laboratory Test Results - Date: (11/01/09). Encounter Diagnosis: Hypercholesterolemia (272.0), Anxiety (300.00), COLD SORES (054.2) [facility] Office Visit On: 01-Nov-2009 8:21 Encounter Reason: Cramping - The onset of the cramping has been sudden and has been occurring in a persistent pattern for 3 days. The course has been decreasing. The cramping is described as mild. Note for Cramping: st End: 01-Nov-2009 8:55 arted wednesday and her menstrual cycle started wednesday. Cramps were severe and are now decreasing. Dont usually get cramps or this severe. No fever, constipation or heavy bleeding. No clots or vomiting. P t has had some diarrhea, but she has IBS and gets this off and on.- had period 2 weeks after last one but ohterwise no different than other cycles- low back cramps- diarrhea comes and goes- is her ibsEncounter Diagnosis: menstrual cramps, Irritable bowel syndrome (564.1) [facility] Office Visit On: 22-Oct-2009 9:53 Encounter Reason: Follow up for chronic medical issues - The patient feels well with minor complaints (anxiety). Patient has been compliant with instructions. Current medication use: no side effects ,compliant with dosin End: 22-Oct-2009 10:44 g regimen and considered effective by patient. Patient sleeps 8 hours per night. Nutrition: balanced diet and supplemental vitamins. The medical issues the patient is following up for include All identi fied problems below ,high cholesterol and other (anxiety, IBS). Encounter Diagnosis: SYMPTOMS INVOLVING DIGESTIVE SYSTEM; HEARTBURN (787.1), Hypercholesterolemia (272.0), Anxiety (300.00), Irritable bowel syndrome (564.1), Acute bronchitis (466.0) [facility] Office Visit On: 30-Aug-2009 11:19 Encounter Reason: Follow up, Laboratory Test Results - Date: (08/22 and 08/20 08/14/ and 08/12). Encounter Diagnosis: Diarrhea (787.91), Passage of bloody stools (578.1), Leukocytosis (288.8), Anxiety (300.00) End: 30-Aug-2009 11:45 [facility] Office Visit On: 12-Aug-2009 16:04 Encounter Reason: Diarrhea - The onset of the diarrhea has been sudden and has been occurring in a persistent pattern for 2 weeks. The course has been constant. The stools are watery. The volume of the stools is normal. End: 12-Aug-2009 16:57 The symptoms have been associated with abdominal pain, while the symptoms have not been associated with fever ,nausea or recent antibiotics. Encounter Diagnosis: Diarrhea (787.91), Epigastric pain (789.06) [facility] Office Visit On: 18-Jul-2009 8:33 Encounter Reason: Preoperative evaluation - Date of procedure: (07-31-09 I have extra bones in my little toes so they will shave them. B/L feet). Encounter Diagnosis: Pre-operative examination, unspecified (V72.84) End: 18-Jul-2009 9:08 [facility] Office Visit On: 24-Jun-2009 11:14 Encounter Reason: Follow up Meds - The patient feels well with minor complaints. Patient has been compliant with instructions. Current medication use: no side effects and compliant with dosing regimen. Patient sleeps 6 h End: 24-Jun-2009 11:56 ours per night. Nutrition: balanced diet. Encounter Diagnosis: Anxiety (300.00), Eustachian tube dysfunction (381.81) [facility] Office Visit On: 11-Jun-2009 12:08 Encounter Reason: Cold Symptoms - Symptoms include sneezing ,nasal congestion ,runny nose ,scratchy throat ,dry cough and facial pressure, while symptoms do not include postnasal drainage ,sore throat ,hoarseness ,produc End: 11-Jun-2009 12:38 tive cough ,facial pain or headache. Onset was sudden 4 day(s) ago. There is no known event that preceded symptom onset. The symptoms occur constantly. The patient describes this as moderate in severity and unchanged. Symptoms are not relieved by cough suppressants or non-prescription cold medications (aleve took temp down). Associated symptoms include plugged ear(s) ,ear pain ,fatigue ,weakness ,vomi ting ,fever and chills, while associated symptoms do not include swollen lymph nodes ,wheezing ,shortness of breath ,nausea or diarrhea. The patient is not currently being treated for this problem. Note for Cold Symptoms: not feeling like all over body ache- temp was 102 last night- moslty in head- -no otc meds- told to quit smoking - no preg concerns -- on controlEncounter Diagnosis: Sinusitis,acute (461.9) [facility] Office Visit On: 24-May-2009 13:46 Encounter Reason: Anxiety - The onset of the anxiety has been gradual and has been occurring in a persistent pattern for months. The course has been increasing. The anxiety is characterized as expectant dread (a jazmyn she End: 24-May-2009 14:17 works with has a girlfriend who is very jealous and they are just friends-- and she is trying to get her fired). There are no specific phobias. There were no precipitating factors. The symptoms have bee n associated with agitation and tremors, while the symptoms have not been associated with suicidal thoughts or sweating. , [ADDITIONAL REASON] Headache/ - The onset of the headache/ has been sudden and has been occurring in an intermittent pattern for 2 weeks. The course has been increasing in severity. The headache/ is characterized as moderate. The headache/ is experienced any time of the day (no diurnal variation). The headache/ is described as being located in the entire head. , [ADDITIONAL REASON] Ear pain - The onset of the pain has been sudden and has been occurring in a per sistent pattern for days. The course has been constant. The pain is described as a mild dull aching. The pain is described as being located in the inner ear. The pain is felt in the right ear. Encounter Diagnosis: External Ear Irritation (698.9), Anxiety (300.00) [facility] Office Visit On: 26-Feb-2009 12:19 Encounter Reason: Sinusitis/ - The duration of the symptoms are 4 days The course has been constant. The sinusitis/ has no relieving factors. Associated features include The symptoms have been associated with cough ,ear End: 26-Feb-2009 13:13 pain ,sinus pain and sore throat. No previous evaluations were reported. Encounter Diagnosis: Sinusitis,acute (461.9), COUGH, NOS (786.2) [facility] Office Visit On: 04-Feb-2009 10:57 Encounter Reason: Follow up for chronic medical issues - The patient feels well with minor complaints ,has decreased energy level and is sleeping well. Patient has been compliant with instructions. Current medication use End: 04-Feb-2009 11:38 : no side effects and compliant with dosing regimen. Patient sleeps 7 hours per night. Nutrition: inappropriate diet and supplemental vitamins. The medical issues the patient is following up for include All identified problems below ,depression (anxiety) ,high blood pressure and high cholesterol. Encounter Diagnosis: Hypercholesterolemia (272.0), CORNS AND CALLOSITIES (700.), Irritable bowel syndrome (564.1), Grieving Reaction (309.0), Anxiety (300.00), FLU (487.1), DUB (626.8), Irregular Menstraul Cycle (626.4), Dysmenorrhea(625.3) [facility] Office Visit On: 01-Feb-2009 12:18 Encounter Reason: Flu like symptoms - The onset of the flu like symptoms has been sudden and they have been occurring in an intermittent pattern for 3 days. The course has been constant. The flu like symptoms are described as moderate. End: 01-Feb-2009 12:46 Encounter Diagnosis: FLU (487.1), Nausea and vomiting (787.01) [facility] Office Visit On: 21-Jan-2009 10:49 Encounter Reason: Skin lesion - The skin lesion appeared gradually and has been occurring for months. It has been unchanging in size. The skin lesion is characterized as red and raised above the skin. The skin lesion is End: 21-Jan-2009 11:20 located on the upper extremity (under right breast). There has been no associated itching or pain. Encounter Diagnosis: Sebaceous cyst (706.2) [facility] Office Visit On: 31-Dec-2008 10:46 Encounter Reason: STD infection/exposure - Reason for encounter: concerned with future transmission of infection. There are no genital symptoms. There are no genital lesions. Encounter Diagnosis: End: 31-Dec-2008 13:12 Contact with or exposure to other communicable diseases (V01.89) [facility] Office Visit On: 26-Dec-2008 14:32 Encounter Reason: Vomiting - The onset of the vomiting has been sudden and has been occurring in a persistent pattern for 5 days. The course has been constant. The vomiting has no relationship to meals. The symptoms are End: 26-Dec-2008 15:36 aggravated by eating. The symptoms have no relieving factors. The symptoms have been associated with diarrhea. , [ADDITIONAL REASON] Skin lesion - The skin lesion appeared gradually and has been occurring for manjula hs. It has been unchanging in size. The skin lesion is characterized as red. The skin lesion is located on the upper extremity (right boob). There has been no associated itching or pain. Encounter Diagnosis: Nausea and vomiting (787.01), Grieving Reaction (309.0), Stress Reaction (308.4), Lesion-Unknown behavior (238.2) [facility] Error Encounter On: 27-Nov-2008 14:34 Encounter Diagnosis: Unspecified Diagnosis End: 27-Nov-2008 14:44 [facility] Office Visit On: 27-Nov-2008 13:42 Encounter Reason: Menstrual problems - The menstrual problem is characterized as abnormally long menses and irregular menses (having menstrual cycle every 2 weeks. Had D/C in August ) and has been occurring for weeks. The p End: 27-Nov-2008 14:34 roblem has been occurring in an intermittent pattern. Last menstrual period: Date: (11/13/08 last period, now spotting and terrible cramps). Currently : unknown/unsure The symptoms have been asso ciated with abdominal pain ,anxiety and abdominal cramps, while the symptoms have not been associated with breast engorgement ,painful intercourse ,fever or nausea There is no medical history of thyroid disease , ,miscarriage ,ectopic ,uterine/cervical cancer or endometriosis The patient has been using oral contraceptives There is no history of infertility treatment or radiation treatment Encounter Diagnosis: Irregular Menstraul Cycle (626.4), Dysmenorrhea(625.3) [facility] Office Visit On: 13-Sep-2008 15:35 Encounter Reason: Nausea - The onset of the nausea has been acute and has been occurring in an intermittent pattern for 2 days. The course has been recurrent. Encounter Diagnosis: VOLUME DEPLETION DISORDER; DEHYDRATION (276.51), Dizziness (780.4), End: 13-Sep-2008 16:49 FEVER (780.6), Nausea and vomiting (787.01) [facility] Office Visit On: 06-Aug-2008 11:03 Encounter Reason: Follow up for chronic medical issues - The patient feels well with minor complaints ,has good energy level and is sleeping poorly. Patient has been compliant with instructions. Current medication use: n End: 06-Aug-2008 13:08 o side effects. Patient sleeps 8 hours per night. Impact of disease: no overall impact. Nutrition: balanced diet. The medical issues the patient is following up for include All identified problems below ,depression ,high cholesterol and other (IBS). Encounter Diagnosis: Hypercholesterolemia (272.0), Irritable bowel syndrome (564.1), SYMPTOMS INVOLVING DIGESTIVE SYSTEM; HEARTBURN (787.1), COLD SORES (054.2), Anxiety (300.00) [facility] Office Visit On: 02-Jul-2008 10:58 Encounter Reason: Abdominal pain - The onset of the pain has been sudden and has been occurring in an intermittent pattern for 1 weeks. The course has been recurrent. The pain is described as a moderate dull ache. The pa End: 02-Jul-2008 11:13 in is described as being located in the lower abdomen. The pain radiates to the back. The symptoms are aggravated by breathing. The symptoms have no relieving factors. The symptoms have been associated with diarrhea, while the symptoms have not been associated with bloating or constipation. Encounter Diagnosis: Abdominal Pain,Unspecified Site (789.00) [facility] Office Visit On: 08-Jun-2008 10:58 Encounter Reason: Diarrhea - The onset of the diarrhea has been sudden and has been occurring in a persistent pattern for 3 days. The course has been constant. The stools are watery. The volume of the stools is small. Th End: 08-Jun-2008 11:29 e symptoms have been associated with abdominal pain and nausea, while the symptoms have not been associated with vomiting. , [ADDITIONAL REASON] Earache - The onset of the pain has been sudden and has been occurring in a pers istent pattern for 1 weeks. The course has been constant. The pain is described as a mild dull aching. The pain is described as being located in the inner ear. The pain is felt in the right ear. There has been no associated fever or sore throat. Encounter Diagnosis: Diarrhea (787.91), Eustachian tube dysfunction (381.81) [facility] Office Visit On: 12-Mar-2008 8:07 Encounter Reason: Dyspnea - The onset of the dyspnea has been acute and has been occurring in a persistent pattern for 1 weeks. The course has been constant. The dyspnea is moderate. The dyspnea occurs with normal activi End: 12-Mar-2008 8:34 ties ,occurs on exertion and occurs at rest. The symptoms have been associated with coughing, while the symptoms have not been associated with fever / chills. Encounter Diagnosis: BRONCHITIS, NOT SPECIFIED ACUTE OR CHRONIC (490.), Dysmenorrhea(625.3) [facility] Office Visit On: 09-Mar-2008 13:23 Encounter Reason: Cough - The onset of the cough has been sudden and 1 weeks. The cough is characterized as dry. The amount of sputum produced is scanty. The symptoms are not aggravated by smoking ,supine posture or meal End: 09-Mar-2008 13:46 s. The symptoms have been associated with hoarseness and sore throat, while the symptoms have not been associated with fever ,headache or wheezing. the color of the sputum is clear. Encounter Diagnosis: Viral infection, unspecified (079.99) [facility] Office Visit On: 10-Jan-2008 8:18 Encounter Reason: Follow up, Laboratory Test Results - Date: (12-08). Current symptoms/reason for visit include/s Follow up visit with no current symptoms. There is a family history of breast cancer. Encounter Diagnosis: DUB (626.8), End: 10-Jan-2008 9:10 Hypercholesterolemia (272.0), Fatigue (780.79), Muscle spasm (728.85) [facility] Office Visit On: 09-Jan-2008 7:58 Encounter Reason: Headache/ - The onset of the headache/ has been gradual and has been occurring in an intermittent pattern for 2 days. The course has been constant. The headache/ is characterized as a pressure sensation End: 09-Jan-2008 8:31 and moderate. The headache/ is experienced any time of the day (no diurnal variation). The headache/ is described as being located in the entire head. The symptoms are aggravated by fatigue, but not by tension/nervous strain ,alcohol ,noise ,bright light ,reading ,trauma ,neck movement ,decreased caffiene intake ,menses or sex. The symptoms have been associated with ear pain (AD) ,nasal discharge/jj ffy nose (clear) ,nausea ,sinusitis in the past ,stress ( I am broke like everyone else) and vomiting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
--- OUTSIDE RECORDS SUMMARY | 2018-05-30 23:16 | XMS RPT_ITS | Continuity of Care Document ---
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 Range: 0.450-4.500 :25 URINALYSIS, W/ MICRO (62425) Comments: PATIENT WAS FASTINGPERFORMED BY: [facility]DynamicsAt[facility] [id number] Microscopic Examination See below: (Normal) Comments: Microscopic was indicated and was performed. Microscopic Examination MICRON (Normal) Comments: Microscopic follows if indicated. Nitrite, Urine Negative (Normal) Urobilinogen,Semi-Qn 0.2 mg/dL (Normal) Range: 0.2-1.0 Bilirubin Negative (Normal) Occult Blood Negative (Normal) Ketones Negative (Normal) Glucose Negative (Normal) Protein Negative (Normal) WBC Esterase Negative (Normal) Appearance Clear (Normal) Urine-Color Yellow (Normal) pH 7.0 (Normal) Range: 5.0-7.5 Specific [place] 1.015 (Normal) Range: 1.005-1.030 :25 MICROALBUMIN: CREATININE RATIO Comments: PATIENT WAS FASTINGPERFORMED BY: Sm[facility]70 [facility]streamAt[facility] [id number] (64561) AND (76710) Microalb/Creat Ratio <6.3 {mg/g_creat} (Normal) Range: 0.0-30.0 Microalbumin, Urine <3.0 ug/mL (Normal) Range: 0.0-17.0 Creatinine, Urine 47.3 mg/dL (Normal) Range: 15.0-278.0 :25 METABOLIC PANEL, COMPREHENSIVE Comments: PATIENT WAS FASTINGPERFORMED BY: [address] [place] [id number] (13702) ALT (SGPT) 10 [iU]/L (Normal) Range: 0-32 [...] Glucose, Serum 86 mg/dL (Normal) Range: 65-99 50-Rdh-82802:25 LIPID PANEL (01930) Comments: PATIENT WAS FASTINGPERFORMED BY: [facility]CoSt. [facility] CenterEtifjv50[address] [facility] [id number] LDL/HDL Ratio 1.0 {ratio_units} (Normal) Range: 0.0-3.2 [...] DIFF WBC Comments: PATIENT WAS FASTINGPERFORMED BY: [facility]CoSt. [facility] CenterAaptyh24[address] [facility] [id number] Information: [id number] (34832) Immature Grans (Abs) 0.0 {x10E3/uL} (Normal) Range: [...] 10.1 {x10E3/uL} (Normal) Range: 3.4-10.8 :01 CALCIFEDIOL (07421) Comments: PATIENT WAS FASTINGPERFORMED BY: [facility] LabsBarn[facility] Bihnul0359 [facility] [id number] Vitamin D, 25-Hydroxy 27.2 ng/mL (Abnormal) Range: 30.0-100.0 Comments: Vitamin D deficiency has been defined by the [place] of[place]icine and an Endocrine Society practice guideline as alevel of serum 25-OH vitamin D less than 20 ng/mL (1,2).The Endocrine Society went on to further define vitamin Dinsufficiency as a level between 21 and 29 ng/mL (2).1. IOM ([place] of [place]). 2010. Dietary reference intakes for calcium and D. [place]: The National Academies Press.2. Danita MF, Bev [place], Merry NEW, et al. Evaluation, treatment, and prevention of vitamin D deficiency: an Endocrine Society clinical practice guideline. JCEM. 2010; 96(7):1911-30. 15-Bal-08932:01 CBC WITH MANUAL DIFF Comments: PATIENT WAS FASTINGPERFORMED BY: [facility] LabsSt. Luke'S HospitalUtvlma6457 [facility] [id number] Information: [id number] (46965) Immature Grans (Abs) 0.0 {x10E3/uL} (Normal) Range: [...] Panel, Comprehensive Comments: PATIENT WAS FASTINGPERFORMED BY: LabCoSt. [facility] Medical CenterRjcdbm5[address] [facility] [id number] (83168) ALT (SGPT) 12 [iU]/L (Normal) Range: 0-32 [...] 96 mg/dL (Normal) Range: 65-99 :01 TSH (02698) Comments: PATIENT WAS FASTINGPERFORMED BY: [facility] [facility] [id number] TSH 2.590 {uIU/mL} (Normal) Range: 0.450-4.500 :01 Lipid Panel (13971) Comments: PATIENT WAS FASTINGPERFORMED BY: [facility] [facility] [id number] LDL/HDL Ratio 1.3 {ratio_units} (Normal) Range: 0.0-3.2 [...] mg/dL (Normal) Range: 100-199 :13 Rapid Flu (90591 x 2) Influenza A Ag neg (Normal) :38 LIPID PANEL (10443) Comments: PATIENT WAS FASTINGPERFORMED BY: [facility] [facility] [id number] Information: [id number] LDL/HDL Ratio 1.0 {ratio_units} (Normal) Range: 0.0-3.2 LDL Cholesterol Calc 53 mg/dL (Normal) Range: 0-99 VLDL Cholesterol Tash 36 mg/dL (Normal) Range: 5-40 HDL Cholesterol 53 mg/dL (Normal) Comments: According to ATP-III Guidelines, HDL-C >59 mg/dL is considered anegative risk factor for CHD. Triglycerides 180 mg/dL (Abnormal) Range: 0-149 Cholesterol, Total 142 mg/dL (Normal) Range: 100-199 81-Rub-25058:38 TSH (62271) Comments: PATIENT WAS FASTINGPERFORMED BY: [place] [id number] [facility] [id number] TSH 1.940 {uIU/mL} (Normal) Range: 0.450-4.500 :01 LIPID PANEL (04862) Comments: PATIENT WAS FASTINGPERFORMED BY: [place] [id number] [facility] [id number] Information: [id number],[id number] LDL/HDL Ratio 1.9 {ratio_units} (Normal) Range: 0.0-3.2 LDL Cholesterol Calc 98 mg/dL (Normal) Range: 0-99 VLDL Cholesterol Tash 32 mg/dL (Normal) Range: 5-40 HDL Cholesterol 51 mg/dL (Normal) Comments: According to ATP-III Guidelines, HDL-C >59 mg/dL is considered anegative risk factor for CHD. Triglycerides 160 mg/dL (Abnormal) Range: 0-149 Cholesterol, Total 181 mg/dL (Normal) Range: 100-199 :09 LIPID PANEL (11658) Comments: PATIENT WAS FASTINGPERFORMED BY: [facility] [facility] [id number] Information: 396806,[id number] LDL/HDL Ratio 1.0 {ratio_units} (Normal) Range: 0.0-3.2 LDL Cholesterol Calc 54 mg/dL (Normal) Range: 0-99 VLDL Cholesterol Tash 22 mg/dL (Normal) Range: 5-40 HDL Cholesterol 56 mg/dL (Normal) Comments: According to ATP-III Guidelines, HDL-C >59 mg/dL is considered anegative risk factor for CHD. Triglycerides 112 mg/dL (Normal) Range: 0-149 Cholesterol, Total 132 mg/dL (Normal) Range: 100-199 23-Qjf-209447:15 Rapid Flu (75261 x 2) Influenza A Ag negative (Normal) 15-Nfi-210618:09 Influenza A&B Viral Comments: PATIENT NOT FASTINGPERFORMED BY: [place] [id number] [facility] [id number] Information: SRC:NOS G70003 Culture (25792) Viral Culture,Rapid,Influenza FLUABN (Normal) Comments: Negative:No Influenza A or B detected. :12 HEPATIC FUNCTION PANEL Comments: PATIENT WAS FASTINGPERFORMED BY: [address] [id number] Information: [id number] (97409) ALT (SGPT) 9 [iU]/L (Normal) Range: 0-32 AST (SGOT) 12 [iU]/L (Normal) Range: 0-40 Alkaline Phosphatase, S 44 [iU]/L (Normal) Range: 25-150 Bilirubin, Direct 0.05 mg/dL (Normal) Range: 0.00-0.40 Albumin, Serum 4.5 g/dL (Normal) Range: 3.5-5.5 Bilirubin, Total 0.2 mg/dL (Normal) Range: 0.0-1.2 Protein, Total, Serum 7.2 g/dL (Normal) Range: 6.0-8.5 :12 LIPID PANEL (44575) Comments: PATIENT WAS FASTINGPERFORMED BY: [address] [id number] LDL/HDL Ratio 1.6 {ratio_units} (Normal) Range: 0.0-3.2 LDL Cholesterol Calc 87 mg/dL (Normal) Range: 0-99 VLDL Cholesterol Tash 24 mg/dL (Normal) Range: 5-40 HDL Cholesterol 55 mg/dL (Normal) Comments: According to ATP-III Guidelines, HDL-C >59 mg/dL is considered anegative risk factor for CHD. Cholesterol, Total 166 mg/dL (Normal) Range: 100-199 Triglycerides 120 mg/dL (Normal) Range: 0-149 :33 TSH (39028) Comments: PATIENT NOT FASTINGPERFORMED BY: [address] [id number] TSH 2.130 {uIU/mL} (Normal) Range: 0.450-4.500 :33 HEPATIC FUNCTION PANEL Comments: PATIENT NOT FASTINGPERFORMED BY: [place] [id number] [facility] [id number] (28876) Bilirubin, Direct 0.14 mg/dL (Normal) Range: 0.00-0.40 :33 Metabolic Panel, Comments: PATIENT NOT FASTINGPERFORMED BY: [facility] [facility] [address] [id number] Information: [id number] Comprehensive (20744) ALT (SGPT) 6 [iU]/L (Normal) Range: 0-40 [...] mg/dL (Normal) Range: 65-99 :33 Lipid Panel (41118) Comments: PATIENT NOT FASTINGPERFORMED BY: [facility]Henry [facility] [facility] [id number] LDL/HDL Ratio 1.1 {ratio_units} (Normal) Range: 0.0-3.2 [...] Signed IF/IF Professional Interpr etation Provided By: [facility], , To consult with a radiologist regarding this report, please call our [id number] line @ D ictated on 09/09/11 1739 by Tyler Ruthreford DOranscribed on 09/09/111828 by ITS IMPORTSign by Marquis Rutherford DO on 09/09/11 1830 Sign by: Marquis Rutherford DO :02 Rapid Strep Test, Office (22138) Rapid Strep Test, Office Negative (Normal) :01 [...] 7-18 GLU 88 mg/dL (Normal) Range: 70-110 7-Rlv-629937:31 VALPROIC ACID 30 ug/mL (Abnormal) Range: 50-100 01-Dec-20108:50 Urinalysis, Office (20263) UA - BILIRUBIN Negative (Normal) UA - [...] 1000-10,000 ORGANISM 1: MIXED GRAM POSITIVE ORGANISMS 54-Fir-56539:00 CHEST, PA AND LATERAL Radiology Report See [...] on 06/25/10 1544 Sign by: Raffaele Galloway 65-Fyi-90636:56 Metabolic Panel, Comments: PATIENT WAS FASTINGPERFORMED BY: [facility] Qfenmq9138 [facility] [id number] Information: [id number] Comprehensive (21872) ALT (SGPT) 13 [iU]/L (Normal) Range: 0-40 [...] Glucose, Serum 87 mg/dL (Normal) Range: 65-99 33-Cqt-13676:56 Lipid Panel (79457) Comments: PATIENT WAS FASTINGPERFORMED BY: [facility] LabsSt. Joseph's [facility] Medical CenterAncxnj2843 [facility] [id number] LDL Cholesterol Calc 68 mg/dL (Normal) Range: 0-99 LDL/HDL Ratio 1.2 {ratio_units} (Normal) Range: 0.0-3.2 VLDL Cholesterol Tash 27 mg/dL (Normal) Range: 5-40 HDL Cholesterol 55 mg/dL (Normal) Comments: According to ATP-III Guidelines, HDL-C >59 mg/dL is considered anegative risk factor for CHD. Triglycerides 133 mg/dL (Normal) Range: 0-149 Cholesterol, Total 150 mg/dL (Normal) Range: 100-199 77-Dft-317359:38 URINE RANGEL CULTURE-ALEXANDRE COL Comments: PATIENT NOT FASTINGPERFORMED BY: [facility] Vfypac6634 [facility] [address] [id number] Information: SRC:UR [id number] COUNT (55318) Antimicrobial MIHEAD (Normal) Comments: S = Susceptible; [...] mL (Normal) Urine Final report (Normal) Culture,Comprehensive 75-Wgj-758271:16 Urinalysis, Office (72157) UA - BILIRUBIN Negative (Normal) UA - BLOOD Hemolyzed Large (Normal) UA - GLUCOSE Negative (Normal) UA - KETONES Negative mg/dL (Normal) UA - LEUKOCYTE ESTERASE Large (Normal) UA - NITRITE Negative (Normal) UA - PH 6.0 (Normal) UA - PROTEIN 100 mg/dL (Normal) UA - SPECIFIC GRAVITY 1.025 (Normal) URINE UROBILINGN ALEXANDRE TIMED Normal mg/dL (Normal) 03-Cby-062074:03 METABOLIC PANEL, Comments: PATIENT NOT FASTINGPERFORMED BY: TOBIN [facility] Gwlytj10[address] [facility] [id number] Information: [id number] COMPREHENSIVE (93215) ALT (SGPT) 15 [iU]/L (Normal) Range: 0-40 [...] 71 mg/dL (Normal) Range: 65-99 :38 TSH (40876) Comments: PATIENT NOT FASTINGPERFORMED BY: TOBIN SongHenry [facility] [facility] [address] [id number] TSH 1.320 {uIU/mL} (Normal) Range: 0.450-4.500 :38 LIPID PANEL (77552) Comments: PATIENT NOT FASTINGPERFORMED BY: [place] [id number] [facility] [id number] Information: ADD [id number] AND DRAW FEE 99 6660 LDL Cholesterol Calc 61 mg/dL (Normal) Range: 0-99 LDL/HDL Ratio 1.3 {ratio_units} (Normal) Range: 0.0-3.2 VLDL Cholesterol Tash 28 mg/dL (Normal) Range: 5-40 HDL Cholesterol 47 mg/dL (Normal) Comments: According to ATP-III Guidelines, HDL-C >59 mg/dL is considered anegative risk factor for CHD. Triglycerides 141 mg/dL (Normal) Range: 0-149 Cholesterol, Total 136 mg/dL (Normal) Range: 100-199 07-Ubi-598339:00 C-REACTIVE PROTEIN (13640) Comments: PATIENT NOT FASTINGPERFORMED BY: TOBIN [facility] [facility] [address] [id number] C-Reactive Protein, Quant 9.8 mg/L (Abnormal) Range: 0.0-4.9 25-Iau-717362:00 SED RATE ERYTHROCYTE (44621) Comments: PATIENT NOT FASTINGPERFORMED BY: [place] [id number] [facility] [id number] Sedimentation Rate-Westergren 5 mm/h (Normal) Range: 0-20 14-Ved-285788:00 CBC (AUTO) (20122) Comments: PATIENT NOT FASTINGPERFORMED BY: [facility] [facility] [address] [id number] Information: ADD [id number] AND DRAW FEE 99 6660 MCH 29.7 pg (Normal) Range: 27.0-34.0 MCHC 34.8 g/dL (Normal) Range: 32.0-36.0 MCV 85 fL (Normal) Range: 80-98 Platelets 306 {x10E3/uL} (Normal) Range: 140-415 RDW 15.3 % (Abnormal) Range: 11.7-15.0 Hematocrit 40.3 % (Normal) Range: 34.0-44.0 Hemoglobin 14.0 g/dL (Normal) Range: 11.5-15.0 RBC 4.72 {x10E6/uL} (Normal) Range: 3.80-5.10 WBC 14.1 {x10E3/uL} (Abnormal) Range: 4.0-10.5 13-Foc-033721:02 CBC With Differential/Platelet Comments: PERFORMED BY: [facility] Lvqler[address] [id number] Baso (Absolute) 0.0 {x10E3/uL} (Normal) Range: 0.0-0.2 [...] Crytosporidium parvum,Cyclospora, or Microsporidia.__ TESTING PERFORMED AT [facility]. ORIGINAL REPORT ONFILE IN LAB CONTAINS ADDITIONAL TEST SITE INFORMATION. OVA/ PARASITES EXAM NO OVA, CYSTS, OR PARASITES FOUND. :30 CUL STOOL/SHIG CULTURE, STOOL See Note (Normal) Comments: No Salmonella, Shigella, Yersinia or Campylobacter isolated.No significant amount of Staphylococcus aureusor yeast-like organisms isolated. SHIGA-TOXIN See Note (Normal) Comments: SHIGA TOXIN 1 AND SHIGA TOXIN 2 NOT DETECTED 45-Rpf-753952:30 OCCULT BLD,iFOB See Note (Abnormal) Comments: OCCULT BLOOD POSITIVE :30 WBC,STOOL See Note (Normal) Comments: FECAL WBCs NONE SEEN 64-Wpj-422489:06 Rapid Flu (85516 x 2) INFLUENZA IMMUNOASSY DIRECT OPTICAL OBSERV negative (Normal) 8-Tmu-636456:36 HEPATIC FUNCTION PANEL Comments: PATIENT NOT FASTINGClinical Information: ADD [id number],[id number] PERFORMED BY: [address] [id number] (89815) Albumin, Serum 4.4 g/dL (Normal) Range: 3.5-5.5 Alkaline Phosphatase, S 39 [iU]/L (Normal) Range: 25-150 ALT (SGPT) 12 [iU]/L (Normal) Range: 0-40 AST (SGOT) 14 [iU]/L (Normal) Range: 0-40 Bilirubin, Direct 0.08 mg/dL (Normal) Range: 0.00-0.40 Bilirubin, Total 0.2 mg/dL (Normal) Range: 0.1-1.2 Protein, Total, Serum 7.2 g/dL (Normal) Range: 6.0-8.5 2-Phj-415660:40 INFCT AGT ANTIGEN DIRECT FLOURESCENT ASSAY; INFLUENZA B Comments: neg VIRUS (87144) INFCT AGT ANTIGEN DIRECT FLOURESCENT ASSAY; I neg (Normal) 06-Xsi-994755:08 Chlamydia/GC Amplification Comments: Clinical Information: SRC:VA PERFORMED BY: [facility] [id number] Chlamydia trachomatis, MURALI Negative (Normal) Neisseria gonorrhoeae, MURALI Negative (Normal) Please note: SPRCS (Normal) Comments: Acceptable specimens for this test are male urethral swab,endocervical swab and liquid based pap specimens, vaginal swabs inAPTIMA transports and first void urine. See online Directory ofServices for te st number for rectal and pharyngeal specimens. 67-Zbo-358472:02 Urinalysis, Office (33639) UA - BILIRUBIN Negative (Normal) UA - BLOOD Negative (Normal) UA - GLUCOSE Negative (Normal) UA - KETONES Negative mg/dL (Normal) UA - LEUKOCYTE ESTERASE Negative (Normal) UA - NITRITE Negative (Normal) UA - PH 7.5 (Normal) UA - PROTEIN Negative mg/dL (Normal) UA - SPECIFIC GRAVITY 1.000 (Normal) URINE UROBILINGN ALEXANDRE TIMED Normal mg/dL (Normal) 65-Ygx-133889:11 CBC with manual diff (86184) Comments: PATIENT NOT FASTINGClinical Information: ADD DRAW FEE 299862 ADD J 39159 PERFORMED BY: [facility] Wnicgg08[address] [id number] Baso (Absolute) 0.0 {x10E3/uL} (Normal) Range: 0.0-0.2 [...] 11.7-15.0 WBC 12.9 {x10E3/uL} (Abnormal) Range: 4.0-10.5 47-Nqg-400529:41 Rapid Flu (31469 x 2) Comments: done INFLUENZA IMMUNOASSY DIRECT OPTICAL OBSERV Negative (Normal) 6-Flq-687681:05 METABOLIC PANEL, COMPREHENSIVE Comments: PATIENT NOT FASTINGClinical Information: [id number] PERFORMED BY: [facility] Jrlsft[address] [id number] (44174) A/G Ratio 1.6 (Normal) Range: 1.1-2.5 Albumin, [...] Serum 87 mg/dL (Normal) Range: 65-99 If -[place] >59 mL/min/1.73 Comments: Note: Persistent reduction for [...] Sodium, Serum 141 mmol/L (Normal) Range: 135-145 4-Dya-886734:05 TSH (26252) Comments: PATIENT NOT FASTINGPERFORMED BY: LabCoSt. Joseph's [facility] Medical CenterFplfsz6[address] [facility] [address] [id number] TSH 1.340 {uIU/mL} (Normal) Range: 0.450-4.500 :05 LIPID PANEL (55468) Comments: PATIENT NOT FASTINGPERFORMED BY: LabCoSt. Joseph's Regional Medical CenterZnsqsx5506 [facility] [id number] Cholesterol, Total 151 mg/dL (Normal) Range: 100-199 HDL Cholesterol 55 mg/dL (Normal) Comments: According to ATP-III Guidelines, HDL-C >59 mg/dL is considered anegative risk factor for CHD. LDL Cholesterol Calc 72 mg/dL (Normal) Range: 0-99 LDL/HDL Ratio 1.3 {ratio_units} (Normal) Range: 0.0-3.2 Triglycerides 121 mg/dL (Normal) Range: 0-149 VLDL Cholesterol Tash 24 mg/dL (Normal) Range: 5-40 :25 Urine Test, Office (36643) Urine Test, Office Negative (Normal) :43 PELVIC (NON-PREG) (HP) Radiology Report See Note (Normal) Comments: Exam Number: [id number] TRANSABDOMINAL PELVIC ULTRASOUND CLINICAL INFORMATIONDysfunctional uterine bleeding. [...] Hormone(LH), S Comments: PATIENT NOT FASTINGPERFORMED BY: [facility] [id number] LH 7.2 m[iU]/mL (Normal) Range: 0.0-76.3 Comments: [...] 54.0 Contraceptives 0.7 - 5.6 :35 GONADOTROPIN-FSH (91913) Comments: PATIENT NOT FASTINGPERFORMED BY: [facility] [id number] FSH 6.1 m[iU]/mL (Normal) Comments: . Male [...] Postmenopausal 23.0 - 116.3 :35 LIPID PANEL (90312) Comments: PATIENT NOT FASTINGPERFORMED BY: [place] [id number] [facility] [id number] Cholesterol, Total 175 mg/dL (Normal) Range: 100-199 HDL Cholesterol 52 mg/dL (Normal) Range: 40-59 LDL Cholesterol Calc 92 mg/dL (Normal) Range: 0-99 LDL/HDL Ratio 1.8 {ratio_units} (Normal) Range: 0.0-3.2 Triglycerides 155 mg/dL (Abnormal) Range: 0-149 VLDL Cholesterol Tash 31 mg/dL (Normal) Range: 5-40 :35 CARLOS (ANTINUCLEAR ANTIBODY) Comments: PATIENT NOT FASTINGPERFORMED BY: [address] [id number] (57094) Antinuclear Antibodies Direct 27 AU/mL (Normal) Range: 0-99 Comments: Negative <100 Equivocal 100 - 120 Positive >120 :35 C-REACTIVE PROTEIN (38025) Comments: PATIENT NOT FASTINGPERFORMED BY: [place] [id number] [facility] [id number] C-Reactive Protein, Quant 3.2 mg/L (Normal) Range: 0.0-4.9 :35 CBC (AUTO) (96726) Comments: PATIENT NOT FASTINGPERFORMED BY: [address] [id number] Hematocrit 39.4 % (Normal) Range: 34.0-44.0 Hemoglobin 13.4 g/dL (Normal) Range: 11.5-15.0 MCH 28.9 pg (Normal) Range: 27.0-34.0 MCHC 33.9 g/dL (Normal) Range: 32.0-36.0 MCV 86 fL (Normal) Range: 80-98 Platelets 317 {x10E3/uL} (Normal) Range: 140-415 RBC 4.61 {x10E6/uL} (Normal) Range: 3.80-5.10 RDW 15.0 % (Normal) Range: 11.7-15.0 WBC 9.6 {x10E3/uL} (Normal) Range: 4.0-10.5 :35 Folate (88193) Comments: PATIENT NOT FASTINGPERFORMED BY: [facility] [id number] Folate (Folic Acid), Serum 21.0 ng/mL (Normal) Comments: Indeterminate: 3.4 - 5.4 Deficient: <3.4 :35 METABOLIC PANEL, COMPREHENSIVE Comments: PATIENT NOT FASTINGPERFORMED BY: [facility]Henry [facility] [id number] (71431) A/G Ratio 1.4 (Normal) Range: 1.1-2.5 Albumin, [...] Serum 81 mg/dL (Normal) Range: 65-99 If -[place]er >60 mL/min/1.73 Range: 60-128 (Normal) Comments: Note: [...] mmol/L (Normal) Range: 135-145 :35 RHEUMATOID FACTOR-QUANT (30167) Comments: PATIENT NOT FASTINGPERFORMED BY: [facility] Jcgqds079[address] [facility] [address] [id number] RA Latex Turbid. 8.2 {IU/mL} (Normal) Range: 0.0-13.9 :35 SED RATE ERYTHROCYTE (84494) Comments: PATIENT NOT FASTINGPERFORMED BY: [facility] Csxqkl4866 [facility] [address] [id number] Sedimentation Rate-Westergren 1 mm/h (Normal) Range: 0-20 :35 TSH (97177) Comments: PATIENT NOT FASTINGPERFORMED BY: [facility] Nkaipi1908 [facility] [address] [id number] TSH 2.295 {uIU/mL} (Normal) Range: 0.450-4.500 Comments: Please note reference interval change :35 VITAMIN B-12 (CYANOCOBALAMIN) Comments: PATIENT NOT FASTINGPERFORMED BY: [facility] Kcvxqz1487 [facility] [id number] (13906) Vitamin B12 511 pg/mL (Normal) Range: 211-911 :13 Rapid Flu (25020 x 2) Comments: neg INFLUENZA IMMUNOASSY DIRECT [...] Comments: GLU,2HPPG 75gm GLUC PPG GLUP from 0122:P93172S. :30 LIVER ALB 3.7 g/dL (Normal) Range: [...] Cyclospora, or Microspo ridia. TESTING PERFORMED AT [facility]. ORIGINAL REPORT ON FILE IN LAB CONTAINS ADDITIONAL TEST SITE INFORMATION. OVA/ PARASITES EXAM NO OVA, CYSTS, OR PARASITES FOUND. 54-Rwa-983198:30 WBC,STOOL See Note (Normal) Comments: FECAL WBCs NONE SEEN 35-Nrp-449472:08 Lipase (41344) Comments: PATIENT NOT FASTINGPERFORMED BY: [place] [id number] [facility] [id number] Lipase, Serum 38 U/L (Normal) Range: 0-59 00-Nzn-550855:08 Amylase (43541) Comments: PATIENT NOT FASTINGPERFORMED BY: [place] [id number] [facility] [id number] Amylase, Serum 32 U/L (Normal) Range: 0-99 94-Xlq-407926:08 TSH (75743) Comments: PATIENT NOT FASTINGPERFORMED BY: [address] [id number] TSH 3.270 {uIU/mL} (Normal) Range: 0.350-5.500 27-Cqb-001208:08 METABOLIC PANEL, COMPREHENSIVE Comments: PATIENT NOT FASTINGPERFORMED BY: [address] [id number] (85532) A/G Ratio 1.4 (Normal) Range: 1.1-2.5 Albumin, [...] Sodium, Serum 139 mmol/L (Normal) Range: 135-148 39-Jeu-356387:08 CBC WITH MANUAL DIFF (16430) Comments: PATIENT NOT FASTINGClinical Information: ADD DRAW FEE 124897 ADD J 29487 PERFORMED BY: TOBIN LabCoSt. Joseph's Regional Medical CenterVficmd4[address] [facility] [address] [id number] Baso (Absolute) 0.0 {x10E3/uL} Range: 0.0-0.2 (Normal) [...] WBC 10.2 {x10E3/uL} Range: 4.0-10.5 (Normal) H.PYLORI 057431 < 0.9 U/mL (Normal) Range: 0.0-0.8 :32 Comments: Negative <0.9 Indeterminate 0.9 - 1.0 Positive >1.0Performed At: CBLabCphoebe Avausn[address] [place], [place] [id number] :42 PFLIP CHOL 200 mg/dL (Normal) Comments: [...] pain potentially associated with radiculopathy : Reviewed [employer] Letter Indication: Low back pain potentially associated [...] 4 months Indication: Hypercholesterolemia Anxiety : Reviewed [employer] Letter: still seeing counseling Indication: Anxiety Anxiety [...] Reviewed Lab Indication: Hyperglyceridemia Anxiety : Reviewed [employer] Letter Indication: Anxiety Anxiety : Continue Current [...] pain : FOLLOW UP IN 2 WEEKS [facility] Indication: Low back pain Other specified [...] Planned Observations OVA & PARASITE DIR SMEAR ([id number])Indication: SYMPTOM, DIARRHEA NOS On: : Request OCCULT BLOOD FECES SCREEN ([id number])Indication: SYMPTOM, DIARRHEA NOS On: : Request LEUKOCYTE COUNT, FECAL ([id number])Indication: SYMPTOM, DIARRHEA NOS On: : Request C-DIFFICILE, STOOL ([id number])Indication: SYMPTOM, DIARRHEA NOS On: : Request RANGEL CULTURE-STOOL ([id number])Indication: SYMPTOM, DIARRHEA NOS On: : Request OVA & PARASITE DIR SMEAR ([id number])Indication: Diarrhea On: :17 Request OCCULT BLOOD FECES SCREEN ([id number])Indication: Diarrhea On: :17 Request LEUKOCYTE COUNT, FECAL ([id number])Indication: Diarrhea On: :17 Request C-DIFFICILE, STOOL ([id number])Indication: Diarrhea On: :17 Request RANGEL CULTURE-STOOL ([id number])Indication: Diarrhea On: 80-Tjm-035931:17 Request C-REACTIVE PROTEIN ([id number])Indication: Leukocytopenia On: 8-Dlo-546021:09 Request Comments: add on CBC, PLATELETS & MANUAL DIFF ([id number])Indication: Flank pain, acute On: 1-Wtp-366167:03 Request SED RATE ERYTHROCYTE ([id number])Indication: Flank pain, acute On: 5-Vhu-822584:03 Request METABOLIC PANEL, COMPREHENSIVE ([id number])Indication: Diarrhea, unspecified type On: 6-Pgo-394861:02 Request CBC, Platelets & Auto Diff ([id number])Indication: Abdominal pain, unspecified abdominal location On: :32 Request Metabolic Panel, Comprehensive ([id number])Indication: Abdominal pain, unspecified abdominal location On: :32 Request CALCIFIDIOL ([id number]) VIT D 25Indication: Vitamin D deficiency On: :36 Request TSH ([id number])Indication: Anxiety On: :36 Request CBC W/AUTO DIFF WBC ([id number])Indication: Hypercholesterolemia On: :36 Request METABOLIC PANEL, COMPREHENSIVE ([id number])Indication: Hypercholesterolemia On: :36 Request LIPID PANEL ([id number])Indication: Hypercholesterolemia On: :36 Request Rapid Flu (63151 x 2)Indication: Fever and chills On: 67-Fvf-92406:44 Request TSH ([id number])Indication: Abnormal TSH On: 07-Nov-2013 Request TSH ([id number])Indication: Abnormal TSH On: 08-Sep-2013 Request RANGEL CULTURE-OTHER ([id number])Indication: Pharyngitis, acute On: 62-Fga-17573:02 Request LIPID PANEL ([id number])Indication: Hyperglyceridemia On: :15 Request URINE RANGEL CULTURE-IDENTIFICATN ([id number])Indication: Dysuria On: :50 Request OVA & PARASITE DIR SMEAR ([id number])Indication: Diarrhea On: 51-Qxv-473985:43 Request OCCULT BLOOD FECES SCREEN ([id number])Indication: Diarrhea On: 48-Cii-680849:43 Request LEUKOCYTE COUNT, FECAL ([id number])Indication: Diarrhea On: 30-Ehu-108658:43 Request C-DIFFICILE, STOOL ([id number])Indication: Diarrhea On: :43 Request RANGEL CULTURE-STOOL ([id number])Indication: Diarrhea On: 40-Edf-876244:43 Request HUMAN PAPILVS, NUCLEIC ACID AMPL PROBE ([id number])Indication: Contact with or exposure to other communicable diseases (Renamed from Contact with and suspected exposure to other communicable diseases) On: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
--- OUTSIDE RECORDS SUMMARY | 2018-05-30 23:18 | XMS RPT_ITS | Continuity of Care Document ---
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 Endocrine Society clinical practice guideline. JCEM. 2010; 96(7):1911-30. :25 TSH (65392) Comments: PATIENT WAS FASTINGPERFORMED BY: [employer] [place] [id number] TSH 1.660 {uIU/mL} (Normal) Range: 0.450-4.500 :25 URINALYSIS, W/ MICRO (48000) Comments: PATIENT WAS FASTINGPERFORMED BY: [facility] SystemsB[facility] [id number] Microscopic Examination See below: (Normal) Comments: Microscopic was indicated and was performed. Microscopic Examination MICRON (Normal) Comments: Microscopic follows if indicated. Nitrite, Urine Negative (Normal) Urobilinogen,Semi-Qn 0.2 mg/dL (Normal) Range: 0.2-1.0 Bilirubin Negative (Normal) Occult Blood Negative (Normal) Ketones Negative (Normal) Glucose Negative (Normal) Protein Negative (Normal) WBC Esterase Negative (Normal) Appearance Clear (Normal) Urine-Color Yellow (Normal) pH 7.0 (Normal) Range: 5.0-7.5 Specific [place] 1.015 (Normal) Range: 1.005-1.030 :25 MICROALBUMIN: CREATININE RATIO Comments: PATIENT WAS FASTINGPERFORMED BY: [employer]70 [facility]360[facility] [id number] (16621) AND (50249) Microalb/Creat Ratio <6.3 {mg/g_creat} (Normal) Range: 0.0-30.0 Microalbumin, Urine <3.0 ug/mL (Normal) Range: 0.0-17.0 Creatinine, Urine 47.3 mg/dL (Normal) Range: 15.0-278.0 :25 METABOLIC PANEL, COMPREHENSIVE Comments: PATIENT WAS FASTINGPERFORMED BY: [employer] [place] [id number] (31913) ALT (SGPT) 10 [iU]/L (Normal) Range: 0-32 [...] Glucose, Serum 86 mg/dL (Normal) Range: 65-99 01-Dyr-02791:25 LIPID PANEL (87037) Comments: PATIENT WAS FASTINGPERFORMED BY: [facility] HospitalGzvhho4350 [facility] [id number] LDL/HDL Ratio 1.0 {ratio_units} (Normal) Range: 0.0-3.2 [...] DIFF WBC Comments: PATIENT WAS FASTINGPERFORMED BY: [facility]CoB[facility] Children's HospitalNnuhtf2552 [facility] [id number] Information: [id number] (84044) Immature Grans (Abs) 0.0 {x10E3/uL} (Normal) Range: [...] 10.1 {x10E3/uL} (Normal) Range: 3.4-10.8 :01 CALCIFEDIOL (98130) Comments: PATIENT WAS FASTINGPERFORMED BY: [facility] Fbbwma0615 [facility] [id number] Vitamin D, 25-Hydroxy 27.2 ng/mL (Abnormal) Range: 30.0-100.0 Comments: Vitamin D deficiency has been defined by the [place] of[place]icine and an Endocrine Society practice guideline as alevel of serum 25-OH vitamin D less than 20 ng/mL (1,2).The Endocrine Society went on to further define vitamin Dinsufficiency as a level between 21 and 29 ng/mL (2).1. IOM ([place] of Medicine). 2010. Dietary reference intakes for calcium and D. [place]: The National Academies Press.2. Danita MF, Bev [place], Merry NEW, et al. Evaluation, treatment, and prevention of vitamin D deficiency: an Endocrine Society clinical practice guideline. JCEM. 2010; 96(7):1911-30. 02-Nzv-15242:01 CBC WITH MANUAL DIFF Comments: PATIENT WAS FASTINGPERFORMED BY: [facility] InstituteSaint [facility]–Barry RoadCdigyw9501 [facility] [id number] Information: [id number] (23172) Immature Grans (Abs) 0.0 {x10E3/uL} (Normal) Range: [...] Panel, Comprehensive Comments: PATIENT WAS FASTINGPERFORMED BY: [facility]CoB[facility] Children's HospitalDnwxgg2258 [facility] [id number] (81612) ALT (SGPT) 12 [iU]/L (Normal) Range: 0-32 [...] 96 mg/dL (Normal) Range: 65-99 :01 TSH (76098) Comments: PATIENT WAS FASTINGPERFORMED BY: [facility]6370 [facility] [id number] TSH 2.590 {uIU/mL} (Normal) Range: 0.450-4.500 :01 Lipid Panel (64191) Comments: PATIENT WAS FASTINGPERFORMED BY: [facility] [id number] LDL/HDL Ratio 1.3 {ratio_units} (Normal) Range: 0.0-3.2 [...] mg/dL (Normal) Range: 100-199 :13 Rapid Flu (93552 x 2) Influenza A Ag neg (Normal) :38 LIPID PANEL (83918) Comments: PATIENT WAS FASTINGPERFORMED BY: [facility]6370 [facility] [id number] Information: [id number] LDL/HDL Ratio 1.0 {ratio_units} (Normal) Range: 0.0-3.2 LDL Cholesterol Calc 53 mg/dL (Normal) Range: 0-99 VLDL Cholesterol Tash 36 mg/dL (Normal) Range: 5-40 HDL Cholesterol 53 mg/dL (Normal) Comments: According to ATP-III Guidelines, HDL-C >59 mg/dL is considered anegative risk factor for CHD. Triglycerides 180 mg/dL (Abnormal) Range: 0-149 Cholesterol, Total 142 mg/dL (Normal) Range: 100-199 68-Kum-09044:38 TSH (89408) Comments: PATIENT WAS FASTINGPERFORMED BY: [place] 1075670 [facility] [id number] TSH 1.940 {uIU/mL} (Normal) Range: 0.450-4.500 :01 LIPID PANEL (40670) Comments: PATIENT WAS FASTINGPERFORMED BY: [place] 1075670 [facility] [id number] Information: [id number] LDL/HDL Ratio 1.9 {ratio_units} (Normal) Range: 0.0-3.2 LDL Cholesterol Calc 98 mg/dL (Normal) Range: 0-99 VLDL Cholesterol Tash 32 mg/dL (Normal) Range: 5-40 HDL Cholesterol 51 mg/dL (Normal) Comments: According to ATP-III Guidelines, HDL-C >59 mg/dL is considered anegative risk factor for CHD. Triglycerides 160 mg/dL (Abnormal) Range: 0-149 Cholesterol, Total 181 mg/dL (Normal) Range: 100-199 :09 LIPID PANEL (15179) Comments: PATIENT WAS FASTINGPERFORMED BY: [facility] [id number] Information: [id number] LDL/HDL Ratio 1.0 {ratio_units} (Normal) Range: 0.0-3.2 LDL Cholesterol Calc 54 mg/dL (Normal) Range: 0-99 VLDL Cholesterol Tash 22 mg/dL (Normal) Range: 5-40 HDL Cholesterol 56 mg/dL (Normal) Comments: According to ATP-III Guidelines, HDL-C >59 mg/dL is considered anegative risk factor for CHD. Triglycerides 112 mg/dL (Normal) Range: 0-149 Cholesterol, Total 132 mg/dL (Normal) Range: 100-199 19-Cil-899267:15 Rapid Flu (48519 x 2) Influenza A Ag negative (Normal) 05-Ift-227126:09 Influenza A&B Viral Comments: PATIENT NOT FASTINGPERFORMED BY: [place] [address]75670 [facility] [id number] Information: SRC:NOS [id number] Culture (33467) Viral Culture,Rapid,Influenza FLUABN (Normal) Comments: Negative:No Influenza A or B detected. :12 HEPATIC FUNCTION PANEL Comments: PATIENT WAS FASTINGPERFORMED BY: [address] [id number] Information: [id number] (89029) ALT (SGPT) 9 [iU]/L (Normal) Range: 0-32 AST (SGOT) 12 [iU]/L (Normal) Range: 0-40 Alkaline Phosphatase, S 44 [iU]/L (Normal) Range: 25-150 Bilirubin, Direct 0.05 mg/dL (Normal) Range: 0.00-0.40 Albumin, Serum 4.5 g/dL (Normal) Range: 3.5-5.5 Bilirubin, Total 0.2 mg/dL (Normal) Range: 0.0-1.2 Protein, Total, Serum 7.2 g/dL (Normal) Range: 6.0-8.5 :12 LIPID PANEL (26324) Comments: PATIENT WAS FASTINGPERFORMED BY: [address] [id number] LDL/HDL Ratio 1.6 {ratio_units} (Normal) Range: 0.0-3.2 LDL Cholesterol Calc 87 mg/dL (Normal) Range: 0-99 VLDL Cholesterol Tash 24 mg/dL (Normal) Range: 5-40 HDL Cholesterol 55 mg/dL (Normal) Comments: According to ATP-III Guidelines, HDL-C >59 mg/dL is considered anegative risk factor for CHD. Cholesterol, Total 166 mg/dL (Normal) Range: 100-199 Triglycerides 120 mg/dL (Normal) Range: 0-149 :33 TSH (99234) Comments: PATIENT NOT FASTINGPERFORMED BY: [address] [id number] TSH 2.130 {uIU/mL} (Normal) Range: 0.450-4.500 :33 HEPATIC FUNCTION PANEL Comments: PATIENT NOT FASTINGPERFORMED BY: [place] 1075670 [facility] [id number] (34232) Bilirubin, Direct 0.14 mg/dL (Normal) Range: 0.00-0.40 :33 Metabolic Panel, Comments: PATIENT NOT FASTINGPERFORMED BY: [facility] [id number] Information: [id number] Comprehensive (68428) ALT (SGPT) 6 [iU]/L (Normal) Range: 0-40 [...] mg/dL (Normal) Range: 65-99 :33 Lipid Panel (31966) Comments: PATIENT NOT FASTINGPERFORMED BY: [facility]6370 [facility] [id number] LDL/HDL Ratio 1.1 {ratio_units} (Normal) Range: 0.0-3.2 [...] Signed IF/IF Professional Interpr etation Provided By: [facility], , To consult with a radiologist regarding this report, please call our [id number] line @ D ictated on 09/09/11 1739 by Tyler Rutherford DOranscribed on 09/09/111828 by ITS IMPORTSign by Marquis Rutherford DO on 09/09/11 1830 Sign by: Marquis Rutherford DO :02 Rapid Strep Test, Office (57596) Rapid Strep Test, Office Negative (Normal) :01 [...] 7-18 GLU 88 mg/dL (Normal) Range: 70-110 1-Bzk-683074:31 VALPROIC ACID 30 ug/mL (Abnormal) Range: 50-100 01-Dec-20108:50 Urinalysis, Office (66399) UA - BILIRUBIN Negative (Normal) UA - [...] 1000-10,000 ORGANISM 1: MIXED GRAM POSITIVE ORGANISMS 63-Rbc-88272:00 CHEST, PA AND LATERAL Radiology Report See [...] on 06/25/10 1544 Sign by: Raffaele Galloway 19-Aog-22352:56 Metabolic Panel, Comments: PATIENT WAS FASTINGPERFORMED BY: [facility] Zmkpcq4529 [facility] [id number] Information: [id number] Comprehensive (66280) ALT (SGPT) 13 [iU]/L (Normal) Range: 0-40 [...] Glucose, Serum 87 mg/dL (Normal) Range: 65-99 76-Cyo-47912:56 Lipid Panel (82489) Comments: PATIENT WAS FASTINGPERFORMED BY: [facility]isanBristol-[facility] Squ[facility] Children's HospitalYizqyc0966 [facility] [id number] LDL Cholesterol Calc 68 mg/dL (Normal) Range: 0-99 LDL/HDL Ratio 1.2 {ratio_units} (Normal) Range: 0.0-3.2 VLDL Cholesterol Tash 27 mg/dL (Normal) Range: 5-40 HDL Cholesterol 55 mg/dL (Normal) Comments: According to ATP-III Guidelines, HDL-C >59 mg/dL is considered anegative risk factor for CHD. Triglycerides 133 mg/dL (Normal) Range: 0-149 Cholesterol, Total 150 mg/dL (Normal) Range: 100-199 23-Ols-548387:38 URINE RANGEL CULTURE-ALEXANDRE COL Comments: PATIENT NOT FASTINGPERFORMED BY: [facility] Ffuhqd7385 [facility] [id number] Information: SRC:UR [id number] COUNT (26991) Antimicrobial MIHEAD (Normal) Comments: S = Susceptible; [...] mL (Normal) Urine Final report (Normal) Culture,Comprehensive 44-Nvl-582721:16 Urinalysis, Office (09034) UA - BILIRUBIN Negative (Normal) UA - BLOOD Hemolyzed Large (Normal) UA - GLUCOSE Negative (Normal) UA - KETONES Negative mg/dL (Normal) UA - LEUKOCYTE ESTERASE Large (Normal) UA - NITRITE Negative (Normal) UA - PH 6.0 (Normal) UA - PROTEIN 100 mg/dL (Normal) UA - SPECIFIC GRAVITY 1.025 (Normal) URINE UROBILINGN ALEXANDRE TIMED Normal mg/dL (Normal) 07-Lxr-266156:03 METABOLIC PANEL, Comments: PATIENT NOT FASTINGPERFORMED BY: TOBIN [facility] Mjraay5393 [facility] [id number] Information: [id number] COMPREHENSIVE (57000) ALT (SGPT) 15 [iU]/L (Normal) Range: 0-40 [...] 71 mg/dL (Normal) Range: 65-99 :38 TSH (38721) Comments: PATIENT NOT FASTINGPERFORMED BY: TOBIN [facility]6370 [facility] [id number] TSH 1.320 {uIU/mL} (Normal) Range: 0.450-4.500 :38 LIPID PANEL (33809) Comments: PATIENT NOT FASTINGPERFORMED BY: [place] 1075670 [facility] [id number] Information: ADD [id number] AND DRAW FEE 99 6660 LDL Cholesterol Calc 61 mg/dL (Normal) Range: 0-99 LDL/HDL Ratio 1.3 {ratio_units} (Normal) Range: 0.0-3.2 VLDL Cholesterol Tash 28 mg/dL (Normal) Range: 5-40 HDL Cholesterol 47 mg/dL (Normal) Comments: According to ATP-III Guidelines, HDL-C >59 mg/dL is considered anegative risk factor for CHD. Triglycerides 141 mg/dL (Normal) Range: 0-149 Cholesterol, Total 136 mg/dL (Normal) Range: 100-199 20-Prp-139992:00 C-REACTIVE PROTEIN (27946) Comments: PATIENT NOT FASTINGPERFORMED BY: TOBIN [facility]6370 [facility] [id number] C-Reactive Protein, Quant 9.8 mg/L (Abnormal) Range: 0.0-4.9 52-Ral-145522:00 SED RATE ERYTHROCYTE (17975) Comments: PATIENT NOT FASTINGPERFORMED BY: [place] 1075670 [facility] [id number] Sedimentation Rate-Westergren 5 mm/h (Normal) Range: 0-20 14-Muv-725515:00 CBC (AUTO) (53994) Comments: PATIENT NOT FASTINGPERFORMED BY: [facility]6370 [facility] [id number] Information: ADD [id number] AND DRAW FEE 99 6660 MCH 29.7 pg (Normal) Range: 27.0-34.0 MCHC 34.8 g/dL (Normal) Range: 32.0-36.0 MCV 85 fL (Normal) Range: 80-98 Platelets 306 {x10E3/uL} (Normal) Range: 140-415 RDW 15.3 % (Abnormal) Range: 11.7-15.0 Hematocrit 40.3 % (Normal) Range: 34.0-44.0 Hemoglobin 14.0 g/dL (Normal) Range: 11.5-15.0 RBC 4.72 {x10E6/uL} (Normal) Range: 3.80-5.10 WBC 14.1 {x10E3/uL} (Abnormal) Range: 4.0-10.5 25-Xnq-630182:02 CBC With Differential/Platelet Comments: PERFORMED BY: [facility] Msivsh3924 [facility] [id number] Baso (Absolute) 0.0 {x10E3/uL} (Normal) Range: 0.0-0.2 [...] Crytosporidium parvum,Cyclospora, or Microsporidia.__ TESTING PERFORMED AT [facility]. ORIGINAL REPORT ONFILE IN LAB CONTAINS ADDITIONAL TEST SITE INFORMATION. OVA/ PARASITES EXAM NO OVA, CYSTS, OR PARASITES FOUND. :30 CUL STOOL/SHIG CULTURE, STOOL See Note (Normal) Comments: No Salmonella, Shigella, Yersinia or Campylobacter isolated.No significant amount of Staphylococcus aureusor yeast-like organisms isolated. SHIGA-TOXIN See Note (Normal) Comments: SHIGA TOXIN 1 AND SHIGA TOXIN 2 NOT DETECTED 48-Xcz-924485:30 OCCULT BLD,iFOB See Note (Abnormal) Comments: OCCULT BLOOD POSITIVE :30 WBC,STOOL See Note (Normal) Comments: FECAL WBCs NONE SEEN 29-Qzd-241914:06 Rapid Flu (23680 x 2) INFLUENZA IMMUNOASSY DIRECT OPTICAL OBSERV negative (Normal) 3-Gah-797314:36 HEPATIC FUNCTION PANEL Comments: PATIENT NOT FASTINGClinical Information: ADD [id number] PERFORMED BY: [address] [id number] (34322) Albumin, Serum 4.4 g/dL (Normal) Range: 3.5-5.5 Alkaline Phosphatase, S 39 [iU]/L (Normal) Range: 25-150 ALT (SGPT) 12 [iU]/L (Normal) Range: 0-40 AST (SGOT) 14 [iU]/L (Normal) Range: 0-40 Bilirubin, Direct 0.08 mg/dL (Normal) Range: 0.00-0.40 Bilirubin, Total 0.2 mg/dL (Normal) Range: 0.1-1.2 Protein, Total, Serum 7.2 g/dL (Normal) Range: 6.0-8.5 9-Hzw-925517:40 INFCT AGT ANTIGEN DIRECT FLOURESCENT ASSAY; INFLUENZA B Comments: neg VIRUS (86818) INFCT AGT ANTIGEN DIRECT FLOURESCENT ASSAY; I neg (Normal) 94-Ppw-668290:08 Chlamydia/GC Amplification Comments: Clinical Information: SRC:VA PERFORMED BY: [facility]6370 [facility] [id number] Chlamydia trachomatis, MURALI Negative (Normal) Neisseria gonorrhoeae, MURALI Negative (Normal) Please note: SPRCS (Normal) Comments: Acceptable specimens for this test are male urethral swab,endocervical swab and liquid based pap specimens, vaginal swabs inAPTIMA transports and first void urine. See online Directory ofServices for te st number for rectal and pharyngeal specimens. 93-Hpc-720714:02 Urinalysis, Office (36982) UA - BILIRUBIN Negative (Normal) UA - BLOOD Negative (Normal) UA - GLUCOSE Negative (Normal) UA - KETONES Negative mg/dL (Normal) UA - LEUKOCYTE ESTERASE Negative (Normal) UA - NITRITE Negative (Normal) UA - PH 7.5 (Normal) UA - PROTEIN Negative mg/dL (Normal) UA - SPECIFIC GRAVITY 1.000 (Normal) URINE UROBILINGN ALEXANDRE TIMED Normal mg/dL (Normal) 78-Khv-855194:11 CBC with manual diff (59089) Comments: PATIENT NOT FASTINGClinical Information: ADD DRAW FEE [id number] ADD J 05927 PERFORMED BY: [facility] Hvcnaw4699 [facility] [id number] Baso (Absolute) 0.0 {x10E3/uL} (Normal) Range: 0.0-0.2 [...] 11.7-15.0 WBC 12.9 {x10E3/uL} (Abnormal) Range: 4.0-10.5 51-Bbn-878855:41 Rapid Flu (59873 x 2) Comments: done INFLUENZA IMMUNOASSY DIRECT OPTICAL OBSERV Negative (Normal) 6-Yon-883921:05 METABOLIC PANEL, COMPREHENSIVE Comments: PATIENT NOT FASTINGClinical Information: [id number] PERFORMED BY: [facility] Ngdmkd1732 [facility] [id number] (03088) A/G Ratio 1.6 (Normal) Range: 1.1-2.5 Albumin, [...] Serum 87 mg/dL (Normal) Range: 65-99 If -Liberian >59 mL/min/1.73 Comments: Note: Persistent reduction for [...] Sodium, Serum 141 mmol/L (Normal) Range: 135-145 7-Fwy-593461:05 TSH (60693) Comments: PATIENT NOT FASTINGPERFORMED BY: [facility]CoB[facility] Squ[facility] Children's HospitalVxgysj9201 [facility] [id number] TSH 1.340 {uIU/mL} (Normal) Range: 0.450-4.500 :05 LIPID PANEL (03451) Comments: PATIENT NOT FASTINGPERFORMED BY: [facility]CoB[facility]'s HospitalWoqffz1935 [facility] [id number] Cholesterol, Total 151 mg/dL (Normal) Range: 100-199 HDL Cholesterol 55 mg/dL (Normal) Comments: According to ATP-III Guidelines, HDL-C >59 mg/dL is considered anegative risk factor for CHD. LDL Cholesterol Calc 72 mg/dL (Normal) Range: 0-99 LDL/HDL Ratio 1.3 {ratio_units} (Normal) Range: 0.0-3.2 Triglycerides 121 mg/dL (Normal) Range: 0-149 VLDL Cholesterol Tash 24 mg/dL (Normal) Range: 5-40 :25 Urine Test, Office (11157) Urine Test, Office Negative (Normal) :43 PELVIC (NON-PREG) (HP) Radiology Report See Note (Normal) Comments: Exam Number: [id number] TRANSABDOMINAL PELVIC ULTRASOUND CLINICAL INFORMATIONDysfunctional uterine bleeding. [...] PATIENT NOT FASTINGPERFORMED BY: [facility] [id number] LH 7.2 m[iU]/mL (Normal) Range: 0.0-76.3 Comments: [...] 54.0 Contraceptives 0.7 - 5.6 :35 GONADOTROPIN-FSH (39725) Comments: PATIENT NOT FASTINGPERFORMED BY: [facility] [id number] FSH 6.1 m[iU]/mL (Normal) Comments: . Male [...] Postmenopausal 23.0 - 116.3 :35 LIPID PANEL (43771) Comments: PATIENT NOT FASTINGPERFORMED BY: [place] 1075670 [facility] [id number] Cholesterol, Total 175 mg/dL (Normal) Range: 100-199 HDL Cholesterol 52 mg/dL (Normal) Range: 40-59 LDL Cholesterol Calc 92 mg/dL (Normal) Range: 0-99 LDL/HDL Ratio 1.8 {ratio_units} (Normal) Range: 0.0-3.2 Triglycerides 155 mg/dL (Abnormal) Range: 0-149 VLDL Cholesterol Tash 31 mg/dL (Normal) Range: 5-40 :35 CARLOS (ANTINUCLEAR ANTIBODY) Comments: PATIENT NOT FASTINGPERFORMED BY: [address] [id number] (96980) Antinuclear Antibodies Direct 27 AU/mL (Normal) Range: 0-99 Comments: Negative <100 Equivocal 100 - 120 Positive >120 :35 C-REACTIVE PROTEIN (87342) Comments: PATIENT NOT FASTINGPERFORMED BY: [place] 1075670 [facility] [id number] C-Reactive Protein, Quant 3.2 mg/L (Normal) Range: 0.0-4.9 :35 CBC (AUTO) (98637) Comments: PATIENT NOT FASTINGPERFORMED BY: [address] [id number] Hematocrit 39.4 % (Normal) Range: 34.0-44.0 Hemoglobin 13.4 g/dL (Normal) Range: 11.5-15.0 MCH 28.9 pg (Normal) Range: 27.0-34.0 MCHC 33.9 g/dL (Normal) Range: 32.0-36.0 MCV 86 fL (Normal) Range: 80-98 Platelets 317 {x10E3/uL} (Normal) Range: 140-415 RBC 4.61 {x10E6/uL} (Normal) Range: 3.80-5.10 RDW 15.0 % (Normal) Range: 11.7-15.0 WBC 9.6 {x10E3/uL} (Normal) Range: 4.0-10.5 :35 Folate (69917) Comments: PATIENT NOT FASTINGPERFORMED BY: [facility] [id number] Folate (Folic Acid), Serum 21.0 ng/mL (Normal) Comments: Indeterminate: 3.4 - 5.4 Deficient: <3.4 :35 METABOLIC PANEL, COMPREHENSIVE Comments: PATIENT NOT FASTINGPERFORMED BY: [facility] [id number] (92117) A/G Ratio 1.4 (Normal) Range: 1.1-2.5 Albumin, [...] Serum 81 mg/dL (Normal) Range: 65-99 If -Liberian >60 mL/min/1.73 Range: 60-128 (Normal) Comments: Note: [...] mmol/L (Normal) Range: 135-145 :35 RHEUMATOID FACTOR-QUANT (80745) Comments: PATIENT NOT FASTINGPERFORMED BY: [facility] Zfdeiv5292 [facility] [id number] RA Latex Turbid. 8.2 {IU/mL} (Normal) Range: 0.0-13.9 :35 SED RATE ERYTHROCYTE (90960) Comments: PATIENT NOT FASTINGPERFORMED BY: [facility] Druahx4054 [facility] [id number] Sedimentation Rate-Westergren 1 mm/h (Normal) Range: 0-20 :35 TSH (24538) Comments: PATIENT NOT FASTINGPERFORMED BY: [facility] Kjrlqj4821 [facility] [id number] TSH 2.295 {uIU/mL} (Normal) Range: 0.450-4.500 Comments: Please note reference interval change :35 VITAMIN B-12 (CYANOCOBALAMIN) Comments: PATIENT NOT FASTINGPERFORMED BY: [employer] Bycnem9909 [facility] [id number] (91597) Vitamin B12 511 pg/mL (Normal) Range: 211-911 :13 Rapid Flu (21556 x 2) Comments: neg INFLUENZA IMMUNOASSY DIRECT [...] Comments: GLU,2HPPG 75gm GLUC PPG GLUP from 0122:B15773V. :30 LIVER ALB 3.7 g/dL (Normal) Range: [...] Cyclospora, or Microspo ridia. TESTING PERFORMED AT [facility]. ORIGINAL REPORT ON FILE IN LAB CONTAINS ADDITIONAL TEST SITE INFORMATION. OVA/ PARASITES EXAM NO OVA, CYSTS, OR PARASITES FOUND. 63-Ofu-648370:30 WBC,STOOL See Note (Normal) Comments: FECAL WBCs NONE SEEN 33-Edw-256586:08 Lipase (75021) Comments: PATIENT NOT FASTINGPERFORMED BY: [place] 1075670 [facility] [id number] Lipase, Serum 38 U/L (Normal) Range: 0-59 31-Jqo-688294:08 Amylase (82526) Comments: PATIENT NOT FASTINGPERFORMED BY: [place] 1075670 [facility] [id number] Amylase, Serum 32 U/L (Normal) Range: 0-99 06-Krf-270197:08 TSH (90272) Comments: PATIENT NOT FASTINGPERFORMED BY: [address] [id number] TSH 3.270 {uIU/mL} (Normal) Range: 0.350-5.500 85-Okb-439175:08 METABOLIC PANEL, COMPREHENSIVE Comments: PATIENT NOT FASTINGPERFORMED BY: [address] [id number] (39969) A/G Ratio 1.4 (Normal) Range: 1.1-2.5 Albumin, [...] Sodium, Serum 139 mmol/L (Normal) Range: 135-148 36-Jht-149773:08 CBC WITH MANUAL DIFF (49111) Comments: PATIENT NOT FASTINGClinical Information: ADD DRAW FEE [id number] ADD J 94669 PERFORMED BY: TOBIN [facility] HospitalNjknnf0225 [facility] [id number] Baso (Absolute) 0.0 {x10E3/uL} Range: 0.0-0.2 (Normal) [...] WBC 10.2 {x10E3/uL} Range: 4.0-10.5 (Normal) H.PYLORI [id number] < 0.9 U/mL (Normal) Range: 0.0-0.8 :32 Comments: Negative <0.9 Indeterminate 0.9 - 1.0 Positive >1.0Performed At: [facility] [id number] [place], [place] [id number] :42 PFLIP CHOL 200 mg/dL (Normal) Comments: [...] pain potentially associated with radiculopathy : Reviewed [employer]er Letter Indication: Low back pain potentially associated [...] 4 months Indication: Hypercholesterolemia Anxiety : Reviewed Hair And Makeup Designer Letter: still seeing counseling Indication: Anxiety Anxiety [...] Reviewed Lab Indication: Hyperglyceridemia Anxiety : Reviewed Hair And Make[employer] Designer Letter Indication: Anxiety Anxiety : Continue Current [...] pain : FOLLOW UP IN 2 WEEKS [facility] - [place] Indication: Low back pain Other specified viral [...] Planned Observations OVA & PARASITE DIR SMEAR ([id number])Indication: SYMPTOM, DIARRHEA NOS On: : Request OCCULT BLOOD FECES SCREEN ([id number])Indication: SYMPTOM, DIARRHEA NOS On: : Request LEUKOCYTE COUNT, FECAL ([id number])Indication: SYMPTOM, DIARRHEA NOS On: : Request C-DIFFICILE, STOOL ([id number])Indication: SYMPTOM, DIARRHEA NOS On: : Request RANGEL CULTURE-STOOL ([id number])Indication: SYMPTOM, DIARRHEA NOS On: : Request OVA & PARASITE DIR SMEAR ([id number])Indication: Diarrhea On: :17 Request OCCULT BLOOD FECES SCREEN ([id number])Indication: Diarrhea On: :17 Request LEUKOCYTE COUNT, FECAL ([id number])Indication: Diarrhea On: :17 Request C-DIFFICILE, STOOL ([id number])Indication: Diarrhea On: :17 Request RANGEL CULTURE-STOOL ([id number])Indication: Diarrhea On: 19-Afl-859671:17 Request C-REACTIVE PROTEIN ([id number])Indication: Leukocytopenia On: 3-Yfb-874138:09 Request Comments: add on CBC, PLATELETS & MANUAL DIFF ([id number])Indication: Flank pain, acute On: 4-Llf-787456:03 Request SED RATE ERYTHROCYTE ([id number])Indication: Flank pain, acute On: 2-Xcf-892785:03 Request METABOLIC PANEL, COMPREHENSIVE ([id number])Indication: Diarrhea, unspecified type On: 2-Vhx-649037:02 Request CBC, Platelets & Auto Diff ([id number])Indication: Abdominal pain, unspecified abdominal location On: :32 Request Metabolic Panel, Comprehensive ([id number])Indication: Abdominal pain, unspecified abdominal location On: :32 Request CALCIFIDIOL ([id number]) VIT D 25Indication: Vitamin D deficiency On: :36 Request TSH ([id number])Indication: Anxiety On: :36 Request CBC W/AUTO DIFF WBC ([id number])Indication: Hypercholesterolemia On: :36 Request METABOLIC PANEL, COMPREHENSIVE ([id number])Indication: Hypercholesterolemia On: :36 Request LIPID PANEL ([id number])Indication: Hypercholesterolemia On: :36 Request Rapid Flu (38967 x 2)Indication: Fever and chills On: 08-Ina-00941:44 Request TSH ([id number])Indication: Abnormal TSH On: 07-Nov-2013 Request TSH ([id number])Indication: Abnormal TSH On: 08-Sep-2013 Request RANGEL CULTURE-OTHER ([id number])Indication: Pharyngitis, acute On: 99-Sbn-81133:02 Request LIPID PANEL ([id number])Indication: Hyperglyceridemia On: :15 Request URINE RANGEL CULTURE-IDENTIFICATN ([id number])Indication: Dysuria On: :50 Request OVA & PARASITE DIR SMEAR ([id number])Indication: Diarrhea On: 09-Lrz-174664:43 Request OCCULT BLOOD FECES SCREEN ([id number])Indication: Diarrhea On: 88-Brw-563934:43 Request LEUKOCYTE COUNT, FECAL ([id number])Indication: Diarrhea On: 45-Tef-427576:43 Request C-DIFFICILE, STOOL ([id number])Indication: Diarrhea On: :43 Request RANGEL CULTURE-STOOL ([id number])Indication: Diarrhea On: 65-Dxx-208338:43 Request HUMAN PAPILVS, NUCLEIC ACID AMPL PROBE ([id number])Indication: Contact with or exposure to other communicable diseases (Renamed from Contact with and suspected exposure to other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
--- OUTSIDE RECORDS SUMMARY | 2018-05-30 23:18 | XMS RPT_ITS ---
:1970 Author Organization OHIP Care Team Providers Name Role Phone Lisa Ziegler Primary Care Unavailable Ricky Nolan Attending Unavailable Katey Elizabeth Attending Unavailable Lisa Ziegler Referring Unavailable Lisa Ziegler Referring Unavailable Lalo Brown Attending Unavailable Katey Elizabeth Attending Unavailable Katey Elizabeth Referring Unavailable Lisa Ziegler Primary Care Unavailable PROBLEMS PROBLEMS DATE TYPE CONDITION / CODE ATTENDING STATUS SOURCE 03/15/2018 Unknown Z12.31 - Hossein Elizabeth Encounter for [facility] mammogram for Repository malignant neoplasm of breast / Z12.31(ICD-10) PROCEDURES PROCEDURES No Procedure Records FoundRESULTS RESULTS SEED SORTER OFFICE VISIT Observed: 05/24/2018 Status: F Source: [place] 10:06 AM [facility] REPOSITORY [facility] [address] [place] [address] OFFICE VISIT Date of Service: 05/24/18 MR#: [id number] Acct: [id number] Name: JUNIOR LATHAM Rep #: [id number] : 1970 Provider: Katey Elizabeth MD Age/Sex: 48/F [place] [facility] [place]: Signed Intake Vital Signs05/24/18 Body Mass Index (BMI) 33.7 05/24/18 Height 5 ft 7 in 05/24/18 Weight: 216 lb 05/24/18 Body Mass Index (BMI) 33.8 05/24/18 Blood Pressure 120/82 H Intake Visit Reasons: ANNUAL Chief Complaint: est annual Supervisor Reclamation Required: No Is patient in pain?: No Allergies fluoxetine [From Prozac] Allergy (Verified 05/24/18 09:21) Diarrhea venom-honey bee [bee venom (honey bee)] Allergy (Verified 05/24/18 09:21) Anaphylaxis Penicillins Adverse Reaction (Verified 05/24/18 09:21) Vomiting Medications Buspirone HCl [Buspar] 30 mg PO BID 07/28/15 [History Confirmed 05/24/18] Diazepam [Valium] 10 mg PO TID PRN PRN 07/28/15 [History Confirmed 05/24/18] Fenofibric Acid (Choline) [Trilipix] 135 mg PO DAILY 07/28/15 [History Confirmed 04/14/18] traZODone [Desyrel] 200 mg PO QHS 07/28/15 [History Confirmed 05/24/18] Is last menstrual period known: Yes Last Menstral Period: 05/17/18 Post menopausal: No Patient : No : No [facility] Medical History Acute back pain (Acute) Anxiety and depression (Acute) Hepatomegaly (Acute) History of frequent headaches (Acute) History of marijuana use (Acute) Hyperlipidemia (Acute) IBS (irritable bowel syndrome) (Acute) Leukocytopenia (Acute) Ovarian cyst (Acute) Tobacco use (Acute) Vitamin D deficiency (Acute) Hypertension (Chronic) Surgical History Encounter for Essure implantation (Acute) History of carpal tunnel surgery (Acute) History of dilation and curettage (Acute) Hx laparoscopic cholecystectomy (Acute) Family History Mother Hypertension Diabetes Father Suicide Uncle Suicide Social History Smoking Status: Current every day smoker alcohol intake: never substance use type: does not use caffeine: Yes what type of physical activity do you participate in: none seatbelt use: always do you feel safe at home: Yes additional social history: single- [place] third shift Pregancy History 0 Elective abortions Hx Para Spontaneous abortions HPI ANNUAL: Details: JUNIOR LATHAM is a 48 year old who presents for annual exam. Last PAP: 05/17 nl History of abnormal PAP: no Last mammogram: 03/20 History of abnormal mammogram: no Colon cancer screening: Other preventative health care screenings: pcp Dr Ziegler Female Reproductive History Last Menstral Period: 05/17/18 Cycle Length: 21-35 Bleeding Duration: 7 Control Method: essure associated symptoms: dysmenorrhea-misses work Questions: Metorrhagia: No, Sexually active: Yes, Dyspareunia: No, PCB: No Menopausal Symptoms: No hot flashes, No night sweats, No weight change, No mood changes, No difficulty concentrating, No sleep problems, Yes change in libido ROS Const Constitutional: Reports as per HPI and fatigue; denies poor appetite, increased appetite, weight gain, weight loss or night sweats Cardio Card: Denies chest pain Resp Resp: Denies dyspnea or cough GI GI: Reports as per HPI; denies bloating, abdominal pain, constipation, vomiting or nausea : Reports as per HPI and other; denies blood in urine, vaginal odor, vaginal itching, vaginal dryness, vaginal discharge, urinary urgency, urinary incontinence, urinary frequency, pelvic pain, painful urination, difficulty urinating, prolapse symptoms, nipple discharge or hot flashes Skin Skin/Breast: Denies breast pain, breast skin changes, nipple discharge, breast lump or changing lesions Psych Psych: Reports change in sex drive; denies difficulty concentrating Exam Const General: cooperative, healthy appearing, comfortable, no acute distress, well developed, well groomed HENMT Head: normal to inspection, normocephalic Ears: hearing grossly normal bilaterally, external ears normal Nose: external nose normal Face and sinus: normal facial exam Neck Neck: normal visual inspection, full ROM, no lymphadenopathy Thyroid: thyroid normal Chest Chest palpation AND inspection: normal inspection of the chest Breast inspection: normal inspection of the breasts, normal inspection of the axillae Breast palpation: normal palpation of the breasts, normal palpation of the axillae, no axillary lymphadenopathy Resp Effort AND Inspection: normal respiratory effort GI Inspection: normal to inspection, non-distended Palpation: no guarding, soft, no hepatosplenomegaly General: bladder normal to palpation External Female Exam: normal external appearance, normal appearance of the urethra, no lesions Urethra: normal appearance of the urethra, normal palpation Speculum Exam - Vagina: normal appearance of the vagina, normal vaginal discharge Speculum Exam - Cervix: normal appearance of the cervix, no cervical discharge, no lesions, nontender Bimanual Exam- Vagina AND Uterus: No cervical tenderness, normal bimanual exam, uterine size normal, bladder normal to palpation, uterine mobility normal, uterine consistency normal, uterus non-tender, no cervical motion tenderness Bimanual Exam- Adnexa, other: normal adnexae, no adnexal masses, adnexae non-tender Skin General: no rashes or lesions noted Neuro General: alert, moves all extremities, no focal motor deficits Extrem General: no pedal edema, normal to inspection Psych Appearance: grossly normal Mental Status: mental status grossly normal Affect: normal affect Speech and Movement: speech and movement normal Attitude: cooperative Assessment AND Plan Problems 1. Encounter for gynecological examination with abnormal finding Z01.411 2. Dysmenorrhea N94.6 Plan Cervical cancer screening: pap up to date 2014 Breast cancer screening: mamm up to date other health maintenance examination reviewed and orders placed if needed. Encouraged maintenance of a healthy weight and active lifestyle and handout given. Annual exam handout including recommendations for good health guidelines, Calcium/vitamin D recommendations, and basic screening information given. Problem list up to date, see problem list details for any additional plan information. Follow up in one year for annual health maintenance exam or sooner if needed. Coding Level of Care Code Off vis,est,prev 40-64yrs Diagnoses Encounter for gynecological examination with abnormal finding Z01.411 Gynecological examination findings: abnormal findings PRESENT Dysmenorrhea N94.6 05/24/18 1006 <Electronically signed by Katey [place] MD> Date Katey Yu Signature: Date (if applicable) CC: EMERGENCY DEPARTMENT Observed: 04/14/2018 Status: F Source: [place] SUMMARY 4:39 AM [facility] REPOSITORY [facility] Medical Records Department [address] [place] [address] Emergency Department Summary 04/14/18 0437 MR#: [id number] Acct: [id number] Name: JUNIOR LATHAM Rep #: [id number] : 1970 48 From: Ricky Jacobsen PCP: Lisa Ziegler DO Status: REG ER - ER Visit Summary Date of Service: 04/14/18 Chief Complaint: Neck pain History of Present Illness: The patient is a 48 F increasing left-sided neck pain while at work. Works with repetitive motions with overhead movement. Pain worse with movement. No previous similar symptoms in the past. No weakness or paresthesias in the extremities. No history of gastric ulcers or kidney injury. Patient is on Valium for history of anxiety. Sent here for evaluation. Denies any direct falls or injuries. Physical Examination: General: Alert and oriented 3, no acute distress HEENT: Normocephalic, atraumatic. Moist mucosa membranes Neck: supple, reproducible tenderness left para cervical and trapezius. No midline tenderness. Cardiovascular: Regular rate and rhythm, no murmurs Respiratory: Normal breath sounds, symmetric, no distress Abdomen: Soft, nontender, nondistended Extremities: Nontender, no edema, pulses intact 4 Neuro: no focal neurological deficits. Strength upper extremity equal symmetric bilaterally. Test Results: [] Emergency Department Course and Treatment: Exam concerns for musculoskeletal strain the neck muscles. She works repetitive movements. Patient started on Motrin she will continue this at home. Restrictions were given for work. She will follow with [facility]. Treatment Plan: [] Disposition: Discharge Impression: 1. Neck muscle strain This note was generated with [employer] software. It may contain incorrect words, spelling, and punctuation that were not noted in review of the chart prior to signing ED Disposition - Plan for ED Patient: Disposition: Home or Assisted Living Chief Complaint: Other, Pain/Inj Diagnosis: Neck muscle strain Instructions: ED Sprain Strain Neck Referrals: Lisa Ziegler DO [Primary Care Provider] - [facility]] - 3-5 Days Additional Instructions: Continue Tylenol or Motrin every 6 hours. Follow with [facility]. What to do if you have Problems For any increased pain, shortness of breath, bleeding, nausea or vomiting, chest pain, or any unexpected problems, contact your Primary Care Provider. Call [facility] ([phone]) or report to the closest Emergency Room. Call 911 if necessary. 04/14/18 0439 <Electronically signed by Ricky Jacobsen> Date Ricyk Jacobsen Cosigner Signature (If Indicated): Date CC: Lisa Ziegler DO SCREENING MAMM (CAD), Observed: 03/15/2018 Status: F Source: [facility] 7:47 AM [facility] REPOSITORY [facility] Imaging Services [address] [place] [address] SCREENING MAMM (CAD), [facility] MR#: [id number] Acct: [id number] Name: JUNIOR LATHAM Rep #: [id number] : 1970 F 47 From: Raffaele Galloway MD PCP: Lisa Ziegler DO Status: [facility] Study: SCREENING MAMM (CAD), BILAT Date of Exam: 03/15/18 Exam# [id number] Ordering Dr: Katey Elizabeth MD MAMMOGRAPHY - BILATERAL SCREENING REASON FOR EXAM: Female, 47 years old. Routine annual screening examination. PERTINENT HISTORY: Grandmother with breast cancer. TECHNIQUE: Digital bilateral breast airam (3D mammographic acquisition) in the CC and MLO projections. 2-D mediolateral oblique (MLO) and craniocaudad (CC) views of both breasts were obtained. CAD: Full Field Digital Mammography with Computer Added Detection was performed. COMPARISON: Comparison is made with prior study dated March 11, 2017. FINDINGS: Breast Composition: There are scattered areas of fibroglandular density. There are no dominant masses or suspicious calcifications. Stable asymmetry of breast tissue where more breast tissue is seen in the retroareolar region of the left breast as compared to the right side. No other significant abnormalities are identified. There has been no significant change since the prior study. BI/SCREENING MAMM (CAD), BILAT IMPRESSION: Stable bilateral screening mammogram. Yearly follow-up mammogram recommended. (A) ASSESSMENT CATEGORY: BIRADS Category 2: Benign. A letter regarding these results will be sent to the patient by the facility within 30 days. Approximately 10% of breast cancers are not detected by mammography. A normal mammogram should not delay biopsy of a clinically suspicious abnormality. [id number] Electronically Signed: Raffaele Galloway MD at 14:33 EST Tel [phone], Service support , CC: Lisa Ziegler DO; Katey [place] MD Brand Protection Manager: Signed ALLERGIES ALLERGIES DATE TYPE / CODE NAME / CODE REACTION SEVERITY SOURCE 05/24/2018 Drug Penicillins Vomiting Unknown [place] [facility] Allergy/4160 /[id number] [place] [address](SNOMED (RXNORM) Repository CT) 05/24/2018 Drug fluoxetine/ Diarrhea Unknown [place] [facility] Allergy/4160 [id number]( [place] [address](SNOMED RXNORM) Repository CT) 05/24/2018 Drug venom-honey Anaphylaxis Unknown [place] [facility] Allergy/4160 bee/[id number] [facility] [address](SNOMED 698(RXNORM) Repository CT) ENCOUNTERS ENCOUNTERS ADMIT/DISCHARGE ACCOUNT ADMITTING ENCOUNTER LOCATION SOURCE NUMBER CLASS 05/24/2018/ [id number] Ambulatory BMSBuilding:B [place] [facility] 8 [facility] Hospital Repository 04/14/2018/ [id number] Emergency [place] [facility] 7 [facility] ing:ED Repository 03/15/2018 [id number] Ambulatory [place] 0 [facility] ing:OPBI Repository 07/22/2017/ [id number] Ambulatory BMSBuilding:B [place] [address] Repository PAYERS PAYERS ENCOUNTER GUARANTOR PAYER SUBSCRIBER SOURCE 05/24/2018 JUNIOR Barba [id number] Primary NOT GIVENUNK [place] Insurance:SELF PAY [facility] [address]Gnx: (330) Number: Effective Repository [phone] () Date:2018-05-24 04/14/2018 JUNIOR Barba [id number] Primary JUNIOR Barba BUSHDOB: [place] Insurance:SELF INS [id number] [address]Bah: (330) BRUSHPolicy Number: Repository [phone] () [id number] Date:2018-04-14 04/14/2018 Secondary NOT GIVENUNK [place] Insurance:SELF PAY [facility] Number: Effective Repository Date:2018-04-14 03/15/2018 JUNIOR Barba [id number] Primary JUNIOR Barba BUSHDOB: [place] Insurance:[employer]HE[employer] [id number] Number: Hospital [id number]: (330) [id number] Repository [phone] () Date:[id number] [place], [place] [address]AE: 03/15/2018 Secondary NOT GIVENUNK [place] Insurance:SELF PAY [facility] Number: Effective Repository Date:2018-02-08 07/22/2017 JUNIOR Freda [id number] Primary NOT GIVENUNK [place] Insurance:SELF PAY [facility] [address]Fpa: (643) Number: [facility] Repository [phone] () Date:2017-07-22
== END 2018-04-14 04:44 | disposition home or self-care (01) ==
PROVIDERS: Emergency Provider Emergency Medicine; Family Provider Internal Medicine; PCP Internal Medicine
DX: S16.1XXA Strain of muscle, fascia and tendon at neck level, initial encounter (principal); X50.3XXA Overexertion from repetitive movements, initial encounter; Y93.9 Activity, unspecified; Y92.89 Other specified places as the place of occurrence of the external cause; Y99.0 Civilian activity done for income or pay; F41.9 Anxiety disorder, unspecified; Z72.0 Tobacco use
CPT/HCPCS: 99283

== ENCOUNTER 2018-08-14 14:04 | Emergency (ER) | payer BC, SELFPAY ==
[2018-05-24 09:54] VITALS: BMI 33.7
[2018-08-14 14:05] VITALS: BP 153/100; PULSE 92; RESP 16; TEMP 36.2; O2SAT 99; BMI 31.3
--- NOTE | 2018-08-14 14:18 | CT_ITS ---
STUDY: CTA NECK WITH CONTRAST REASON FOR EXAM: Female, 48 years old. Headache, dizziness, nausea RADIATION DOSAGE (If Supplied By Facility): CTDIvol = ( 28.84 ) mGy, DLP = ( 1496.06 ) mGycm TECHNIQUE: CT angiography with multi-detector data acquisition was performed from the aortic arch to the skull base following intravenous administration of 100 IV Isovue 370. MIP images were reconstructed from the axial data set. Post-processing of the angiographic images was performed, with multiplanar reformation and 3D reconstruction. Individualized dose optimization techniques were used for this CT. COMPARISON: None. FINDINGS: AORTIC ARCH: Normal visualized aortic arch. Normal origins of the brachiocephalic, left common carotid, and left subclavian arteries. RIGHT CAROTID ARTERIES: Normal right common carotid artery (CCA). Normal right common carotid bulb. Normal origin of the right internal carotid (ICA) artery without a hemodynamically significant stenosis. Normal visualized cervical portion of the right internal carotid artery. Normal origin of the right external carotid artery (ECA). LEFT CAROTID ARTERIES: Normal left common carotid artery (CCA). Normal left common carotid bulb. Normal origin of the left internal carotid (ICA) artery without a hemodynamically significant stenosis. Normal visualized cervical portion of the left internal carotid artery. Normal origin of the left external carotid artery (ECA). VERTEBRAL ARTERIES: Normal bilateral vertebral arteries. The left vertebral artery is dominant. There is multilevel cervical disc space narrowing, disc osteophyte complexes and facet hypertrophy mild central canal stenosis. There are Mild inflammatory changes paranasal sinuses mucosal thickening paranasal sinuses and edema of the middle turbinates. CT/CTA Neck W/WO Contrast IMPRESSION: Normal bilateral cervical carotid and vertebral arteries Multilevel spondylosis of the cervical spine as above Inflammatory changes paranasal sinuses Electronically Signed: Eugenio Crain, at 16:16 EDT Tel , Service support ,
--- NOTE | 2018-08-14 14:18 | CT_ITS ---
STUDY: CTA OF THE BRAIN REASON FOR EXAM: Female, 48 years old. Stabbing headache RADIATION DOSAGE (If Supplied By Facility): CTDIvol = ( 28.84 ) mGy, DLP = ( 1496.06 ) mGycm TECHNIQUE: CT angiography was performed with a multi-detector CT scanner. Data acquisition was obtained from the skull base through the vertex following intravenous administration of 100 IV Isovue 370. MIP images were reconstructed from the axial data set. Post-processing of the angiographic images was performed, with multiplanar reformation and 3D reconstruction. Individualized dose optimization techniques were used for this CT. COMPARISON: None. FINDINGS: Normal bilateral petrous carotid arteries. Normal right cavernous carotid artery with a normal supraclinoid bifurcation. Normal left cavernous carotid artery with a normal supraclinoid bifurcation. Normal right A1 segments of the anterior cerebral artery. Normal left A1 segments of the anterior cerebral artery. Normal intact anterior communicating artery (ACOM). Generalized decreased caliber of the right A2 segments possibly due to hypoplasia. Normal right M1 and M2 segments of the middle cerebral arteries, with a normal M1 bifurcation. Normal left M1 and M2 segments of the middle cerebral arteries, with a normal M1 bifurcation. Nonvisualization of the posterior communicating arteries (PCOM). Normal bilateral vertebral arteries. Normal basilar artery with a normal basilar bifurcation. The visualized bilateral superior cerebellar (SCA) arteries are normal. Normal bilateral P1, P2 and visualized P3 segments of the posterior cerebral arteries. There is no demonstrated aneurysm of the [place] of [place]. There is no demonstrated abnormality of the visualized brain. CT/CTA Head W/WO Contrast IMPRESSION: No demonstrated aneurysm. 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 Electronically Signed: Marquis Rutherford DO at 16:04 EDT Tel [phone], Service support ,
--- NOTE | 2018-08-14 14:19 | RAD_ITS ---
STUDY: X-RAY CHEST REASON FOR EXAM: Female, 48 years old. Shortness of breath TECHNIQUE: Single frontal view COMPARISON: None. FINDINGS: The lungs are clear and expanded. There is no demonstrated pleural abnormality. Normal size heart. Normal mediastinum and jessica. Normal visualized pulmonary arteries. Normal visualized aortic arch and descending thoracic aorta. Degenerative changes of the thoracic spine. Normal visualized ribs, clavicles, and shoulders. There is no demonstrated abnormality of the visualized soft tissue structures of the upper abdomen. RAD/Chest 1 View (Portable) IMPRESSION: Normal x-ray examination of the chest. Electronically Signed: Marquis Rutherford DO at 15:18 EDT Tel [phone], Service support ,
--- NOTE | 2018-08-14 14:19 | EKG12_ITS ---
Test Reason : HEADACHE Blood Pressure : / mmHG Vent. Rate : 076 BPM Atrial Rate : 076 BPM P-R Int : 184 ms QRS Dur : 082 ms QT Int : 376 ms P-R-T Axes : 042 007 051 degrees QTc Int : 423 ms Normal sinus rhythm Normal ECG Confirmed by KATELYN NGUYỄN MD ([id number]), school photograph editor MARQUIS STOREY ([id number]) on 08/16/2018 3:58:34 PM Referred By: CHET Confirmed By:KATELYN NGUYỄN MD
[2018-08-14] MEDS: DiphenhydrAMINE 50 MG/ML Syringe 25 MG IV (14:31)
[2018-08-14] MEDS: 0.9% Normal Saline 1,000 ML 999 ML IV (14:31)
[2018-08-14] MEDS: proCHLORPERazine 10 MG/2 ML Vial IV (14:31)
[2018-08-14 14:42] LABS: Absolute Lymphocyte Count 4.34 X10^3/ul (0.83-4.51); Absolute Neutrophil Count 5.8 X10^3/uL (2.0-7.7); Basophil# 0.01 X10^3/uL; Basophil% 0.1 % (0-1); Eosinophil# 0.17 X10^3/uL; Eosinophils% 1.6 % (0-5); Hematocrit 43.9 % (37-47); Hemoglobin 15.4 g/dl (12.0-15.0); Lymphocyte # 4.34 X10^3/ul (4.0); Lymphocyte % 39.9 % (19-41); Mean Corp Hgb Conc 35.1 g/gl (32-36); Mean Corpuscular Hgb 30.6 pg (27.0-32.0); Mean Corpuscular Volume 87.3 fL (81-99); Mean Platelet Vol. 9.9 fl (6.2-12.0); Monocyte# 0.54 X10^3/uL; Neutrophil # 5.82 X10^3/uL (2.7-7.7); Neutrophil % 53.3 % (47-70); Platelet Count 303 K/mm3 (150-450); RBC Distribution Width CV 13.7 % (11.6-14.6); RBC Distribution Width SD 43.3 fl (35.1-43.9); Red Blood Count 5.03 M/mm3 (4.2-5.4); White Blood Count 10.9 K/mm3 (4.4-11.0)
[2018-08-14 14:43] LABS: POSITIVE COUNT NO; POSITIVE DIFFERENTIAL NO; POSITIVE MORPHOLOGY NO
[2018-08-14 14:46] LABS: Carboxyhemoglobin Frac (CO) 5.7 % (0.0-1.5)
[2018-08-14 14:59] LABS: AST(SGOT) 17 U/L (15-37); Alanine Aminotransfer ALT/SGPT 23 U/L (13-56); Albumin, Serum 4.1 g/dL (3.2-5.0); Alkaline Phosphatase 45 U/L (45-117); Anion Gap 6 (5-15); BUN 6 mg/dL (7-18); BUN/Creat Ratio 8.1 RATIO (10-20); Bilirubin, Direct 0.08 mg/dL (0.00-0.30); Calcium,Total 8.9 mg/dL (8.5-10.1); Chloride 108 mmol/L (98-107); Creatinine, Serum 0.74 mg/dL (0.55-1.02); EST Glomerular Filtration Rate 89 mL/min (>60); Est Glom Filt Rate - Afr Amer 108 mL/min (>60); Estimated Creatinine Clearance 92.38 ml/min; Globulin 3.3 g/dL (2.2-4.2); Glucose 96 mg/dL (74-106); Lipase 153 U/L (73-393); Potassium 3.3 mmol/L (3.5-5.1); Protein, Total 7.4 g/dL (6.4-8.2); Sodium Level 138 mmol/L (136-145)
--- NOTE | 2018-08-14 15:06 | ED.DCSUM_ITS ---
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 no family history, she has no fever cough chest or abdominal pain bowel bladder habits have been normal She does have a warty smell to her and she indicates she has of home wood stove but no one else is sick she is never had carbon monoxide exposure poisoning, indicates the head pain is simply a constant pounding sensation She is familiar with carbon monoxide poisoning as her father of that a few years ago Physical Examination: [] Vital signs are within normal limits she is afebrile no distress General, no distress resting comfortably HEENT is generally unremarkable The neck is supple no adenopathy Cardiovascular, regular rate and rhythm Lungs, clear bilateral Abdomen, soft nontender Extremities, no clubbing cyanosis or edema Neurologic, awake alert answering questions appropriately moving all 4 extremities NIH 0 cranial nerves motor sensory gait normal Test Results: [] Emergency Department Course and Treatment: [] Unremarkable physical and neurologic exam and her complaints and the generalized nature and the headaches CTA CTA neck screening labs IV fluids car monoxide level The patient screening labs are generally unremarkable, her UA is pending, as is the CTA head and neck, her carbon monoxide level came back around 6 she does smoke a pack a day I have explained to her that it is unclear if the carbon oxide is due to the use of her home kitchen woodstove or from the smoking, on reevaluation she is feeling much better headache is practically resolved she is walking around the emergency department no distress she wants to go home. This time of asked the afternoon physicians check the CTA results of his lungs are unremarkable I feel it is safe to discharge her home she understands to have her carbon monoxide level in her home checked by the fire department or by obtaining a home car monoxide sensor if is elevated she should discontinue use of the wood burning stove she otherwise follow with her family physicians for further management of not feeling well and the headache Treatment Plan: [] She has been placed on 100% nonrebreather and will keep that on for at least 2 hours but she actually is feeling better wants to go home, and is not sure she can wait the full 2 hours Disposition: [] Discharge home pending results of CTA head neck Impression: [] Headache resolved, carbon monoxide level 6.0 This note was generated with [employer] dictation software. It may contain incorrect words, spelling, and punctuation that were not noted in review of the chart prior to signing ED Disposition - Plan for ED Patient: Instructions: Carbon Monoxide Poisoning, ED CO Poisoning, ED Cephalgia Unspecified Referrals: Lisa Ziegler DO [Primary Care Provider] -
[2018-08-14 15:48] VITALS: PULSE 66; RESP 18; O2SAT 100
[2018-08-14 15:50] LABS: Bacteria 0 SEEN /hpf (None Seen); Mucous, Urine 0 SEEN /hpf (<or=2+); Red Blood Cells-Urine 0 SEEN /hpf (0-5); Squamous Epithelial Cells - UA 0 SEEN /hpf (5-10); White Blood Cells 0 SEEN /hpf (0-5)
[2018-08-14 15:52] LABS: Color, Urine Yellow (Yellow); Glucose, Dipstick Normal (Normal); Ketone-Dipstick Negative (Negative); Leukocyte Esterase-Dipstick Negative /ul (Negative); Nitrite-Dipstick Negative (Negative); Occult Blood-Urine Negative /ul (Negative); Protein-Dipstick Negative (Negative); Specific Gravity, Urine 1.005 (1.002-1.030); Urine Bilirubin Dipstick Negative (Negative); Urine Clarity Clear (Clear); Urine Urobilinogen Normal (Normal)
--- NOTE | 2018-08-14 15:58 | ED.DEP ---
ED Disposition - Plan for ED Patient: Instructions: ED Cephalgia Unspecified, Carbon Monoxide Poisoning, ED CO Poisoning Referrals: Lisa Ziegler DO [Primary Care Provider] -
[2018-08-14 16:35] VITALS: BP 125/77; PULSE 71; RESP 16; O2SAT 97
== END 2018-08-14 16:36 | disposition home or self-care (01) ==
PROVIDERS: Emergency Provider Emergency Medicine; Family Provider Internal Medicine; PCP Internal Medicine
DX: R51 Headache (principal); R11.2 Nausea with vomiting, unspecified; R53.83 Other fatigue
CPT/HCPCS: 70496; 70498; 71045; 80048; 80076; 81001; 82375; 83690; 84484; 85025; 93005; 96361; 96374; 96375; 99283; J7030; Q9967

== ENCOUNTER → 2018-11-28 07:47 | Outpatient (CLI) | payer BC, SELFPAY ==
[2018-11-16 08:52] VITALS: BMI 31.3
--- NOTE | 2018-11-28 07:49 | US_ITS ---
STUDY: ULTRASOUND OF THE FEMALE PELVIS - COMPLETE REASON FOR EXAM: Female, 48 years old. Dysmenorrhea. LMP: 11/16/2018. TECHNIQUE: Transabdominal and transvaginal. TECHNICAL QUALITY: Adequate. COMPARISON: 12/11/2016. FINDINGS: The uterus is anteverted and is in a midline position. The uterus measures 8.0 x 4.4 x 3.5 cm. Nabothian cyst in the uterine cervix. The endometrium measures 8.0 mm in thickness, and is heterogeneous in echogenicity. There is no demonstrated endometrial mass. There is no demonstrated myometrial mass. I.U.D. - The patient does not have an I.U.D. The right ovary is visualized. The right ovary measures 2.7 x 1.8 x 1.1 cm. There is a small right ovarian cyst measuring 1.5 x 1.4 x 1.4 cm. There is no visualized right adnexal mass or complex lesion. There is normal arterial and normal venous vascularity. The left ovary is visualized. The left ovary measures 4.5 x 1.8 x 2.2 cm. There is a small cyst in the left ovary or left adnexa measuring 1.3 x 1.0 x 1.1 cm.There is normal arterial and normal venous vascularity. There is no fluid in the cul-de-sac. The pre void volume of the bladder was 435 ml. US/Pelvic (Non ) IMPRESSION: 1. Nabothian cyst in the uterine cervix. 2. Small left ovarian or adnexal cyst measuring 1.3 x 1.0 x 1.1 cm. I favor follicular cyst of the left ovary. Follow-up ultrasound in 1 month will help clarify. 3. Small follicular cyst in right ovary measuring 1.5 x 1.4 x 1.4 cm. 4. Normal ultrasound of the uterus. 5. Negative for free fluid in the cul-de-sac. Electronically Signed: Akil Sy MD at 11:22 EDT , Service support ,
--- NOTE | 2018-11-28 07:49 | US_ITS ---
STUDY: ULTRASOUND OF THE FEMALE PELVIS - COMPLETE REASON FOR EXAM: Female, 48 years old. Dysmenorrhea. LMP: 11/16/2018. TECHNIQUE: Transabdominal and transvaginal. TECHNICAL QUALITY: Adequate. COMPARISON: 12/11/2016. FINDINGS: The uterus is anteverted and is in a midline position. The uterus measures 8.0 x 4.4 x 3.5 cm. Nabothian cyst in the uterine cervix. The endometrium measures 8.0 mm in thickness, and is heterogeneous in echogenicity. There is no demonstrated endometrial mass. There is no demonstrated myometrial mass. I.U.D. - The patient does not have an I.U.D. The right ovary is visualized. The right ovary measures 2.7 x 1.8 x 1.1 cm. There is a small right ovarian cyst measuring 1.5 x 1.4 x 1.4 cm. There is no visualized right adnexal mass or complex lesion. There is normal arterial and normal venous vascularity. The left ovary is visualized. The left ovary measures 4.5 x 1.8 x 2.2 cm. There is a small cyst in the left ovary or left adnexa measuring 1.3 x 1.0 x 1.1 cm.There is normal arterial and normal venous vascularity. There is no fluid in the cul-de-sac. The pre void volume of the bladder was 435 ml. US/Transvaginal Non- IMPRESSION: 1. Nabothian cyst in the uterine cervix. 2. Small left ovarian or adnexal cyst measuring 1.3 x 1.0 x 1.1 cm. I favor follicular cyst of the left ovary. Follow-up ultrasound in 1 month will help clarify. 3. Small follicular cyst in right ovary measuring 1.5 x 1.4 x 1.4 cm. 4. Normal ultrasound of the uterus. 5. Negative for free fluid in the cul-de-sac. Electronically Signed: Akil Sy MD at 11:22 EDT , Service support ,
== END ==
PROVIDERS: Family Provider Internal Medicine; PCP Internal Medicine; Referring Provider Nurse Practitioner Women's Health; Visit Provider Nurse Practitioner Women's Health
DX: N94.6 Dysmenorrhea, unspecified (principal)
CPT/HCPCS: 76830; 76856

== ENCOUNTER 2019-02-07 07:30 | Day surgery (SDC) | payer BC, SELFPAY ==
[2018-12-14 08:49] VITALS: BMI 31.3
[2019-01-30 10:06] VITALS: BMI 31.3
--- NOTE | 2019-02-01 22:22 | HP.PCM_ITS ---
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 Required: No Is patient in pain?: No Allergies fluoxetine [From Prozac] Allergy (Verified 01/30/19 10:04) Diarrhea venom-honey bee [bee venom (honey bee)] Allergy (Verified 01/30/19 10:04) Anaphylaxis Penicillins Adverse Reaction (Verified 01/30/19 10:04) Vomiting Medications Buspirone HCl [Buspar] 30 mg PO BID 07/28/15 [History Confirmed 01/30/19] Fenofibric Acid (Choline) [Trilipix] 135 mg PO DAILY 07/28/15 [History Confirmed 01/30/19] traZODone [Desyrel] 200 mg PO QHS 07/28/15 [History Confirmed 01/30/19] diazepam 10 mg tablet 20 mg PO TID PRN PRN tab 11/16/18 [History Confirmed 01/30/19] naproxen 500 mg tablet 500 mg PO Q12H #30 tab 11/16/18 [Rx Confirmed 01/30/19] Is last menstrual period known: Yes Last Menstral Period: 01/29/19 Post menopausal: No Patient : No : No PFSH Medical History Acute back pain (Acute) Anxiety and depression (Acute) Hepatomegaly (Acute) History of frequent headaches (Acute) History of marijuana use (Acute) Hyperlipidemia (Acute) IBS (irritable bowel syndrome) (Acute) Leukocytopenia (Acute) Ovarian cyst (Acute) Tobacco use (Acute) Vitamin D deficiency (Acute) Hypertension (Chronic) Surgical History Encounter for Essure implantation (Acute) History of carpal tunnel surgery (Acute) History of dilation and curettage (Acute) Hx laparoscopic cholecystectomy (Acute) Family History Mother Hypertension Diabetes Father Suicide Uncle Suicide Social History (Updated 01/30/19 @ 10:16 by Katey Elizabeth MD) Smoking Status: Current every day smoker alcohol intake: never substance use type: does not use caffeine: Yes what type of physical activity do you participate in: none seatbelt use: always do you feel safe at home: Yes additional social history: single- [employer] third shift HPI ERAS TVH BS poss LAVH: Details: JUNIOR LATHAM is a 48 year old who presents for AUB and severe PMDD symptons. she has an 8 cm uterus with suspected adenomyosis. Female Reproductive History Last Menstral Period: 01/29/19 Cycle Length: 21-35 Bleeding Duration: 7 Questions: Metorrhagia: No, Sexually active: Yes, Dyspareunia: No, PCB: No Pregancy History 0 Elective abortions Hx Para Spontaneous abortions Hx # Term Pregnancies Ectopic pregnancies Hx # Pregnancies Multiple births # of living children ROS Const Constitutional: Denies fatigue, fever(s), headache(s), increased appetite, poor appetite, weight gain or weight loss Cardio Card: Denies chest pain Resp Resp: Denies cough or dyspnea GI GI: Reports as per HPI; denies abdominal pain, constipation, nausea or vomiting : Reports as per HPI; denies difficulty urinating, painful urination, nipple discharge, urinary frequency, urinary incontinence, urinary hesitancy, urinary urgency, vaginal discharge, vaginal dryness, vaginal odor or vaginal itching Skin Skin/Breast: Denies change in hair, breast lump, breast pain, breast skin changes or nipple discharge Exam Const General: cooperative, healthy appearing, comfortable, no acute distress, well developed Orientation: alert HENMT Head: normal to inspection, normocephalic Neck Neck: normal visual inspection, trachea midline Thyroid: thyroid normal Resp Effort & Inspection: normal respiratory effort GI Inspection: normal to inspection, non-distended Palpation: soft, no hepatosplenomegaly General: bladder normal to palpation External Female Exam: normal external appearance, normal appearance of the urethra Urethra: normal appearance of the urethra, normal palpation, no discharge Speculum Exam - Vagina: normal appearance of the vagina, normal vaginal discharge Speculum Exam - Cervix: normal appearance of the cervix, nontender Bimanual Exam- Vagina & Uterus: normal bimanual exam, uterine size normal, bladder normal to palpation, uterine shape normal, No cervical tenderness, uterine mobility normal, uterine consistency normal, normal cervical palpation, uterus non-tender Bimanual Exam- Adnexa, other: normal adnexae, adnexae mobile, no adnexal masses, pelvic support normal Pelvic Support: normal Skin General: no rashes or lesions noted Assessment & Plan Problems 1. PMDD (premenstrual dysphoric disorder) F32.81 2. Dysmenorrhea N94.6 ERAS- same day planned, declined iud, lysteda, plan tvh bs possible LAVH Plan After discussing the patient's diagnosis and treatment plan options, patient wishes to proceed with surgical management. I have discussed with the patient the risks, benefits, and alternatives of the procedure which include but are not limited to risks of anesthesia, bleeding, infection, possible damage to bowel, bladder, or surrounding vasculature which could lead to additional surgery to evaluate any complications. Patient agrees to procedure and wishes to proceed. ACOG/uptodate references given for additional information regarding procedure. Coding Level of Care Code No Charge Diagnoses PMDD (premenstrual dysphoric disorder) F32.81 Dysmenorrhea N94.6
[2019-02-07] VITALS (9 sets, daily range): BP systolic 104–130; BP diastolic 58–83; PULSE 73–92; RESP 16; TEMP 36.2–37.8; O2SAT 94–100; BMI 31.6
--- NOTE | 2019-02-07 | HYST_PTH ---
PATIENT: JUNIOR LATHAM LOC: [facility] [place] U#:[id number] AGE/SX: 48/F ROOM: RE02/07/[address]: Dr. Katey Elizabeth MD : 1970 BED: DIS: 02/07/2019 SPEC #: [id number] RECD: 02/07/19 14:15 STATUS: SORAYA JOSE #: [id number] LINDSEY: 02/07/19 00:[address]: Katey Elizabeth DEPT: SURGICAL PATHOLOGY RECD BY: Avni Jones ENTERED: 02/07/19 14:16 SP TYPE: HYSTERECT OTHR DR: Dr. Lisa Ziegler DO Tissues: Uterus, NOS Procedures: Surgery Specimen Level V HEADER OPERATION: ERAS, vaginal hysterectomy, salpingectomy PRE-OP DIAGNOSIS: Premenstrual dysphoric disorder; dysmenorrhea TISSUE SUBMITTED: Uterus and bilateral fallopian tubes MICROSCOPIC DIAGNOSIS Uterus, hysterectomy: Cervix - squamous metaplasia and nabothian cyst and minimal chronic inflammation. Endometrium - proliferative endometrium. Myometrium - adenomyosis. One fallopian tube with serous cystadenoma. The other fallopian tube with benign paratubal cyst. AM:carline 02/08/19 MICROSCOPIC DESCRIPTION Slides are reviewed. GROSS DESCRIPTION Received in fixative is one container labeled with the patient's name and designated uterus, bilateral fallopian tubes. The specimen consists of a hysterectomy specimen consisting of uterus with cervix and detached bilateral fallopian tubes and one simple cyst consistent with paratubal cyst. The uterus with cervix weighs 54 gm and measures 9 x 4 x 3 cm. The serosal surface is focally ragged. The ectocervical mucosa is unremarkable. The external os is circular in contour. The endocervical canal measures 3.5 cm in length and the endocervical mucosa is harmon, glistening and unremarkable. The triangular endometrial cavity measures 4 cm in length and 2 cm in width. The endometrium is harmon, glistening without any mass lesion and measures 0.1 cm in thickness. Sections of the uterine wall do not reveal any mass lesion and it measures up to 1.5 cm in thickness. Sections also reveal a portion of a metallic coil device consistent with Essure device in the left cornu. The fallopian tubes are not identified as right or left. One of the fallopian tubes measure 3 cm in length and 0.5 cm in diameter. The fimbrial end is identified. Also present underneath the fallopian tube is a cyst with possible ovary measuring 2 x 1.5 x 0.5 cm. The cyst wall is smooth and measures up to 0.2 cm in thickness. No papillations are identified. The cyst is filled with clear to mucinous fluid. The second fallopian tube is present in two pieces measuring 2 cm in length and 0.5 cm in diameter. A fimbrial end is present adjacent to one of the pieces measuring 1 x 1 x 0.5 cm in diameter. Also present in the container is one cyst consistent with paratubal cyst measuring 1.7 x 1.5 x 1 cm. It is filled with clear fluid. Qa Automation Engineer sections are submitted in 11 cassettes as follows: 1 - anterior cervix, 2 - posterior cervix, 3 & 4 - anterior uterine wall, 5 & 6 - posterior uterine wall, 7 - one fallopian tube, entirely submitted, 8 & 9 - cyst adjacent to the first fallopian tube, 10?& 11 - second fallopian and paratubal cyst, entirely submitted. / ALEXANDER:carline 02/07/19 TC:5 CPT: 27968
[2019-02-07 07:54] LABS: Internal QC Validated? YES +Cl - CLEAR BKGD
[2019-02-07 07:55] LABS: Hematocrit 48.8 % (37-47); Hemoglobin 16.4 g/dL (12.0-15.0); Mean Corp Hgb Conc 33.6 g/dL (32-36); Mean Corpuscular Hgb 29.7 pg (27.0-32.0); Mean Corpuscular Volume 88.2 fL (81-99); Mean Platelet Vol. 10.3 fl (6.2-12.0); Platelet Count 308 K/mm3 (150-450); RBC Distribution Width CV 13.7 % (11.6-14.6); RBC Distribution Width SD 44.3 fl (35.1-43.9); Red Blood Count 5.53 M/mm3 (4.2-5.4); White Blood Count 11.3 K/mm3 (4.4-11.0)
[2019-02-07 07:57] LABS: Pregnancy, Urine Negative Negative
[2019-02-07 08:15] LABS: Bedside Glucose 92 mg/dL (70-110)
[2019-02-07] MEDS: Acetaminophen 500 MG Tablet 1000 MG PO ×2 (08:26→15:46)
[2019-02-07] MEDS: Celecoxib 200 MG Capsule 400 MG PO (08:27)
[2019-02-07] MEDS: Gabapentin 600 MG Tablet PO (08:28)
[2019-02-07] MEDS: Phenazopyridine 95 MG Tablet 190 MG PO (08:28)
[2019-02-07] MEDS: Enoxaparin 40 MG/0.4 ML Syringe SC (08:29)
[2019-02-07] MEDS: Scopolamine 1mg/72hr Patch 1 PATCH TRANSDERM. (08:31)
[2019-02-07] MEDS: Lactated Ringers 1,000 ML 40 ML IV (08:32)
[2019-02-07] MEDS: dexAMETHasone 10 MG/ML Vial 8 MG IV (08:36)
[2019-02-07] MEDS: Magnesium Sulfate 4gm/100mL 4 GM/100 ML IV.SOLN. IV (08:45)
[2019-02-07] MEDS: Lactated Ringers 1,000 ML 70 ML IV ×2 (10:30→12:47)
[2019-02-07] MEDS: Vasopressin 20 UNITS/ML Vial (10:59)
[2019-02-07] MEDS: Ondansetron 4 MG/2 ML Vial IV (11:40)
--- NOTE | 2019-02-07 11:55 | OP.PCM_ITS ---
Problem List (1) Dysmenorrhea Status: Chronic Comment: ERAS- same day planned, declined iud, lysteda, plan tvh bs possible LAVH (2) PMDD (premenstrual dysphoric disorder) Status: Chronic Report of Operation Date of Procedure: 02/07/19 Pre-Operative Diagnosis: dysmenorrhea, pmdd Post-Operative Diagnosis: same Surgery/Procedure Performed:: tvh bs Description of Surgical Findings:: nl uterus cystic tubes outboard motors experimental mechanic: Melanie Ramirez Type of Anesthesia:: General Special Medications: none Specimen's removed: uterus tubes Drains: contreras Estimated Blood Loss (mL): 100 Fluids Replaced: crystalloid Description of Procedure: Patient was taken to the operating room and was placed under general anesthesia was prepped and draped in normal sterile fashion in the dorsal lithotomy position. Preoperative antibiotics and SCDs and Contreras catheter was placed inside the bladder. Weighted speculum was placed in the vagina and the anterior and posterior lip of the cervix was grasped with 2 Eboni clamps and circumferentially injected with dilute vasopressin. A circumferential incision was made with a scalpel and the posterior cul-de-sac was entered into sharply and a longneck speculum was placed. The anterior cul-de-sac was also dissected down and entered into sharply and the uterosacral ligaments were clamped cut and suture ligated bilaterally followed by the cardinal ligaments which were Clamped cut and suture ligated bilaterally with 0 Monocryl. The uterus serially descended and progressive bites were taken bilaterally up to the level of the utero-ovarian ligament bilaterally which was clamped transected and double ligated with 0 Monocryl suture and 0 Vicryl free tie. Bilateral fallopian tubes and ovaries were well visualized and noted be within normal limits and the bilateral fallopian tubes were transected across the base with a Janelle clamp and removed and sutured with 0 Vicryl suture. Excellent hemostasis was noted. The vagina was closed with [id number] 0 Vicryl pop offs including the posterior and anterior peritoneum in the reapproximation. Excellent hemostasis was noted. All instruments removed from the vagina clear urine was noted at the end of the procedure and patient was awoken and taken recovery in stable condition. Multi Select Codes - Urinary/Genital Urinary/Genital CPT Codes: 29967 TVH+BS/O <250gr uterus
--- NOTE | 2019-02-07 12:00 | PCM.DC.VHY ---
Discharge Diet: No Restrictions Discharge Activity: Return to Normal Activity, May Not Drive, May Shower May resume sexual activity in: 6-8 weeks Call your doctor if your incision/area has: Continuous Slow Oozing, Sudden Increased Bleeding, Increased Pain/ Swelling, Increased Redness, Foul Smelling Discharge Call your doctor if you observe: Fever of 101 or Higher, Inability to urinate, Inability to have a bowel movement, Using more than one pad per hour Allergies/Adverse Reactions: Allergies fluoxetine [From Prozac] Allergy (Verified 02/07/19 08:07) Diarrhea venom-honey bee [bee venom (honey bee)] Allergy (Verified 02/07/19 08:07) Anaphylaxis Penicillins Adverse Reaction (Verified 02/07/19 08:07) Vomiting Medications to take at Discharge Buspirone HCl [Buspar] 30 mg PO BID 07/28/15 Fenofibric Acid (Choline) [Trilipix] 135 mg PO DAILY 07/28/15 traZODone [Desyrel] 200 mg PO QHS 07/28/15 diazepam 10 mg tablet 20 mg PO BID PRN tab 11/16/18 Cholecalciferol (Vitamin D3) [Vitamin D3] 5,000 unit PO DAILY 01/31/19 Multivitamin [Multivitamins] 1 ea PO DAILY 01/31/19 Naproxen 500 mg PO Q12H PRN 01/31/19 [place]-3S/Dha/Epa/Fish Oil [Fish Oil [place]-3 Softgel] 1 ea PO DAILY 01/31/19 Naproxen [Naprosyn] 250 - 500 mg PO Q8H PRN PRN #30 tab 02/07/19 Oxycodone HCl/Acetaminophen [Percocet 5-325] 1 - 2 tab PO Q4H PRN PRN 7 Days #15 tab 02/07/19 The following prescriptions were given: Naproxen [Naprosyn] 250 - 500 mg PO Q8H PRN PRN #30 tab PRN Reason: MILD PAIN Transmission Status: Received by [facility] Oxycodone HCl/Acetaminophen [Percocet 5-325] 1 - 2 tab PO Q4H PRN PRN 7 Days #15 tab PRN Reason: Pain Transmission Status: Received by [facility] Primary Care Physician: Lisa Ziegler DO [Primary Care Provider] - Test Results: Test results from this visit will be discussed in further detail at your follow-up appointment, if applicable. Please Follow Up With: Katey Elizabeth MD - [phone]
[2019-02-07 16:51] LABS: Mean Corp Hgb Conc 32.6 g/dL (32-36); Mean Corpuscular Hgb 29.5 pg (27.0-32.0); Mean Corpuscular Volume 90.7 fL (81-99); Mean Platelet Vol. 10.6 fl (6.2-12.0); Platelet Count 303 K/mm3 (150-450); RBC Distribution Width CV 13.7 % (11.6-14.6); RBC Distribution Width SD 46.3 fl (35.1-43.9); Red Blood Count 4.74 M/mm3 (4.2-5.4); White Blood Count 18.3 K/mm3 (4.4-11.0)
[2019-02-07 17:02] LABS: Anion Gap 8 (5-15); BUN 9 mg/dL (7-18); BUN/Creat Ratio 9.1 RATIO (10-20); Calcium,Total 7.9 mg/dL (8.5-10.1); Chloride 106 mmol/L (98-107); Creatinine, Serum 0.99 mg/dL (0.55-1.02); EST Glomerular Filtration Rate 64 mL/min (>60); Est Glom Filt Rate - Afr Amer 77 mL/min (>60); Estimated Creatinine Clearance 69.05 ml/min; Glucose 137 mg/dL (74-106); Sodium Level 141 mmol/L (136-145)
== END 2019-02-07 18:42 | disposition home or self-care (01) ==
LOC: SDC 07:33 → AC 07:33
PROVIDERS: Anesthesiology; Family Provider Internal Medicine; PCP Internal Medicine; Referring Provider Obstetrics & Gynecology; Visit Provider Obstetrics & Gynecology
PROC: (CPT 58260; principal; 2019-02-07 09:15)
DX: N87.9 Dysplasia of cervix uteri, unspecified (principal); N80.0 Endometriosis of uterus; D28.2 Benign neoplasm of uterine tubes and ligaments; N83.8 Other noninflammatory disorders of ovary, fallopian tube and broad ligament; F32.81 Premenstrual dysphoric disorder; I10 Essential (primary) hypertension; E78.5 Hyperlipidemia, unspecified; K58.9 Irritable bowel syndrome, unspecified; E55.9 Vitamin D deficiency, unspecified; F32.9 Major depressive disorder, single episode, unspecified; F41.9 Anxiety disorder, unspecified; F17.200 Nicotine dependence, unspecified, uncomplicated; Z88.0 Allergy status to penicillin; Z79.899 Other long term (current) drug therapy
CPT/HCPCS: 58262; 36415; 80048; 81025; 82962; 85027; 86850; 86900; 86901; 88307; J7120; J2405

== ENCOUNTER → 2019-03-16 16:12 | Outpatient (CLI) | payer BC, SELFPAY ==
[2019-03-16 15:08] VITALS: BMI 31.6
== END ==
PROVIDERS: Family Provider Internal Medicine; PCP Internal Medicine; Referring Provider Nurse Practitioner Women's Health; Visit Provider Nurse Practitioner Women's Health
DX: N89.8 Other specified noninflammatory disorders of vagina (principal)
CPT/HCPCS: 87070; 87205

== ENCOUNTER → 2019-07-24 07:30 | Outpatient (CLI) | payer BC, SELFPAY ==
[2019-03-16 15:08] VITALS: BMI 31.6
--- NOTE | 2019-07-24 07:31 | BI_ITS ---
MAMMOGRAPHY - BILATERAL SCREENING REASON FOR EXAM: Female, 49 years old. Routine annual screening examination. PERTINENT HISTORY: Grandmother with breast cancer. Aunt with breast cancer. TECHNIQUE: Digital bilateral breast kameron (3D mammographic acquisition) in the CC and MLO projections. 2-D mediolateral oblique (MLO) and craniocaudad (CC) views of both breasts were obtained. CAD: Full Field Digital Mammography with Computer Added Detection was performed. COMPARISON: Comparison is made with prior examination dated March 15, 2018 and March 11, 2017. FINDINGS: Breast Composition: There are scattered areas of fibroglandular density. There are no dominant masses or suspicious calcifications. Stable small benign-appearing bilateral axillary lymph nodes. No other significant abnormalities are identified. There has been no significant change since the prior study. BI/SCREEN MAMM (CAD) W/KAMERON BILAT IMPRESSION: Stable bilateral screening mammogram. Yearly follow-up mammogram recommended. (A) ASSESSMENT CATEGORY: BIRADS Category 2: Benign. A letter regarding these results will be sent to the patient by the facility within 30 days. Approximately 10% of breast cancers are not detected by mammography. A normal mammogram should not delay biopsy of a clinically suspicious abnormality. [id number] Electronically Signed: Raffaele Galloway, at 8:40 EDT , Service support ,
[2019-07-24 20:05] LABS: Chlamydia Trachomatis by PCR Negative (Negative); Neisserai gonorrhoeae by PCR Negative (Negative); Probe Check PASS; Sample Adequacy Control PASS; Specimen Processing Control PASS
== END ==
PROVIDERS: Nurse Practitioner Women's Health; PCP Internal Medicine; Referring Provider Obstetrics & Gynecology; Visit Provider Obstetrics & Gynecology
DX: Z12.31 Encounter for screening mammogram for malignant neoplasm of breast (principal); N89.8 Other specified noninflammatory disorders of vagina
CPT/HCPCS: 77063; 77067; 87070; 87205; 87491; 87591

== ENCOUNTER → 2020-02-07 09:39 | Outpatient (CLI) | payer BC, SELFPAY ==
[2019-07-24 08:04] VITALS: BMI 31.6
[2020-02-07 12:13] LABS: CRP < 2.90 mg/L (0.0-3.0)
[2020-02-08 16:08] LABS: Endomysial Antibody IgA Negative (Negative)
[2020-02-09 04:34] LABS: Immunoglobulin A 199 mg/dL (87-352); t-Transglutaminase IgA <2 U/mL (0-3)
== END ==
PROVIDERS: PCP Internal Medicine; Referring Provider Internal Medicine Gastroenterology; Visit Provider Internal Medicine Gastroenterology
DX: R19.7 Diarrhea, unspecified (principal)
CPT/HCPCS: 36415; 82784; 83516; 86140; 86255

== ENCOUNTER → 2020-08-08 07:53 | Outpatient (CLI) | payer OTHER, SELFPAY ==
[2019-07-24 08:04] VITALS: BMI 31.6
--- NOTE | 2020-08-08 07:56 | BI_ITS ---
MAMMOGRAPHY - BILATERAL SCREENING REASON FOR EXAM: Female, 50 years old. Routine annual screening examination. PERTINENT HISTORY: Grandmother with breast cancer. Aunt with breast cancer. TECHNIQUE: Digital bilateral breast kameron (3D mammographic acquisition) in the CC and MLO projections. 2-D mediolateral oblique (MLO) and craniocaudad (CC) views of both breasts were obtained. CAD: Full Field Digital Mammography with Computer Added Detection was performed. COMPARISON: Comparison is made with prior study of 07/24/2019 and 03/15/2018. FINDINGS: Breast Composition: There are scattered areas of fibroglandular density. There is a 7.6 mm x 7 mm nodular density in the retroareolar region of the right breast. Correlation with ultrasound is recommended. Stable benign appearing bilateral axillary lymph nodes. Stable benign-appearing bilateral axillary lymph nodes. No other significant abnormalities are identified. BI/SCRN MAMM (CAD)W/KAMERON BILAT IMPRESSION: 7.6 mm x 7 mm nodular density in the retroareolar region of the right breast. Correlation with ultrasound is recommended. ASSESSMENT CATEGORY: BIRADS Category 0: Incomplete. Need additional imaging evaluation. A letter regarding these results will be sent to the patient by the facility within 30 days. Approximately 10% of breast cancers are not detected by mammography. A normal mammogram should not delay biopsy of a clinically suspicious abnormality. [id number] Electronically Signed: Raffaele Galloway MD at 10:00 EDT , Service support ,
== END ==
PROVIDERS: PCP Internal Medicine; Referring Provider Obstetrics & Gynecology; Visit Provider Obstetrics & Gynecology
DX: Z12.31 Encounter for screening mammogram for malignant neoplasm of breast (principal); Z80.3 Family history of malignant neoplasm of breast
CPT/HCPCS: 77063; 77067

== ENCOUNTER → 2020-08-16 09:22 | Outpatient (CLI) | payer OTHER, SELFPAY ==
[2020-08-08 08:23] VITALS: BMI 31.9
--- NOTE | 2020-08-16 09:31 | US_ITS ---
STUDY: ULTRASOUND BREAST - RIGHT REASON FOR EXAM: Female, 50 years old. Abnormal screening mammogram. TECHNIQUE: Axial and longitudinal images of the RIGHT breast were performed with a high resolution ultrasound transducer. # OF IMAGES: 22 COMPARISON: Comparison is made with prior mammogram dated 08/08/2020. FINDINGS: RIGHT Breast: The mammographic abnormality corresponds to a 6 mm x 11 mm x 4 mm solid and cystic nodule at the 9 o''clock position of the breast at 2 cm from nipple. Tissue diagnosis is recommended. US/Breast Limited Unilateral IMPRESSION: 6 mm x 11 mm x 4 mm solid and cystic nodule at the 9 o''clock position of the breast at the 9 o''clock position of the breast at 2 cm from the nipple. Biopsy is recommended. ASSESSMENT CATEGORY: BIRADS Category 4: Suspicious - Biopsy Should Be Considered. A letter regarding these results will be sent to the patient by the facility within 30 days. Electronically Signed: Raffaele Galloway MD at 12:57 EDT , Service support ,
== END ==
PROVIDERS: PCP Internal Medicine; Referring Provider Obstetrics & Gynecology; Visit Provider Obstetrics & Gynecology
DX: R92.8 Other abnormal and inconclusive findings on diagnostic imaging of breast (principal)
CPT/HCPCS: 76642

== ENCOUNTER → 2020-08-21 14:39 | Outpatient (CLI) | payer OTHER, SELFPAY ==
--- NOTE | 2020-08-21 | BRBX_PTH ---
PATIENT: JUNIOR LATHAM LOC: [facility] U#:[id number] AGE/SX: 55/F ROOM: RE08/21/[address]: Dr. Eugenio Wheeler MD : 1970 BED: DIS: SPEC #: [id number] RECD: 08/21/20 14:26 STATUS: SORAYA JOSE #: [id number] LINDSEY: 08/21/20 00:[address]: Eugenio Wheeler DEPT: SURGICAL PATHOLOGY RECD BY: Avni Jones ENTERED: 08/22/20 07:44 SP TYPE: BREAST BX OTHR DR: Dr. Lisa Ziegler DO Tissues: Right breast, NOS Procedures: Surgery Specimen Level IV HEADER OPERATION: Right breast biopsy PRE-OP DIAGNOSIS: Abnormal right breast ultrasound TISSUE SUBMITTED: Right breast tissue MICROSCOPIC DIAGNOSIS Right breast, core biopsy: Fibrocystic changes. Negative for atypia or malignancy. See comment. ALEXANDER:carline 08/23/2020 COMMENT Correlation with clinical, radiologic findings and appropriate follow up are necessary. MICROSCOPIC DESCRIPTION Slides are reviewed. GROSS DESCRIPTION Received in fixative is one container labeled with the patient name and designated right breast. The specimen consists of multiple elongated fragments of harmon-yellow fibroadipose tissue that in aggregate measure 1.5 x 0.5 x 0.1 cm. The entire specimen is submitted in one cassette. / SJ:rg 08/22/20 TC:5 CPT: 86596
[2020-08-21 13:30] VITALS: BMI 32.1
== END ==
PROVIDERS: PCP Internal Medicine; Visit Provider Surgery
DX: R92.8 Other abnormal and inconclusive findings on diagnostic imaging of breast (principal)
CPT/HCPCS: 88305

== ENCOUNTER → 2020-08-30 08:49 | Outpatient (CLI) | payer OTHER, SELFPAY ==
[2020-08-21 13:30] VITALS: BMI 32.1
--- NOTE | 2020-08-30 09:00 | BI_ITS ---
MAMMOGRAPHY - UNILATERAL DIAGNOSTIC: RIGHT BREAST REASON FOR EXAM: Female, 50 years old. Recent ultrasound-guided biopsy of the anterior superior aspect of the left breast. PERTINENT HISTORY: Grandmother with breast cancer. Aunt with breast cancer TECHNIQUE: Digital unilateral breast airam (3D mammographic acquisition) in the CC and MLO projections. 2-D mediolateral oblique (MLO) and craniocaudad (CC) views of both breasts were obtained. CAD: Full Field Digital Mammography with Computer Added Detection was performed. COMPARISON: Comparison is made with prior study dated 08/08/2020. FINDINGS: Breast Composition: There are scattered areas of fibroglandular density. There are no dominant masses or suspicious calcifications. A tissue clip marker is seen in the slightly upper lateral anterior aspect of the right breast. The nodular density has decreased in size as compared to prior study. Correlation with ultrasound is recommended. No other significant abnormalities are identified. BI/DIAG MAMM W/CAD, UNILAT IMPRESSION: Status post ultrasound-guided breast biopsy of the nodular density in the slightly upper lateral aspect of the anterior right breast. Correlation with a follow-up sonogram is recommended for further evaluation. ASSESSMENT CATEGORY: BIRADS Category 0: Incomplete. Need additional imaging evaluation. A letter regarding these results will be sent to the patient by the facility within 30 days. Approximately 10% of breast cancers are not detected by mammography. A normal mammogram should not delay biopsy of a clinically suspicious abnormality. Electronically Signed: Raffaele Galloway MD at 10:07 EDT , Service support ,
--- NOTE | 2020-08-30 09:34 | US_ITS ---
STUDY: ULTRASOUND BREAST - RIGHT REASON FOR EXAM: Female, 50 years old. Post biopsy examination. TECHNIQUE: Axial and longitudinal images of the RIGHT breast were performed with a high resolution ultrasound transducer. # OF IMAGES: 17 COMPARISON: Comparison is made with prior sonogram dated 08/16/2020 and prior mammogram done earlier today. FINDINGS: RIGHT Breast: There is a 6 mm x 7 mm x 3 mm solid/cystic nodule at the 9 o''clock position of the breast at 2 cm from the nipple. This has decreased in size. A tissue clip marker is seen adjacent to this lesion. US/Breast Limited Unilateral IMPRESSION: Slight decrease in size of the previously seen solid/cystic nodule at the 9 o''clock position of the breast at 2 sinusitis of the nipple. A tissue clip marker from prior biopsy is seen adjacent to this lesion. ASSESSMENT CATEGORY: BIRADS Category 2: Benign. A letter regarding these results will be sent to the patient by the facility within 30 days. Electronically Signed: Raffaele Galloway MD at 13:37 EDT , Service support ,
== END ==
PROVIDERS: PCP Internal Medicine; Referring Provider Surgery; Visit Provider Surgery
DX: N63.10 Unspecified lump in the right breast, unspecified quadrant (principal)
CPT/HCPCS: 76642; 77065

== ENCOUNTER 2021-01-23 13:30 | Outpatient (RCR) | payer OTHER, SELFPAY ==
[2020-08-21 13:30] VITALS: BMI 32.1
--- NOTE | 2020-12-09 14:15 | HP.PTEVAL ---
Patient's Visit Information JUNIOR LATHAM is a 50 year old F referred to Physical Therapy by Dr. Lisa Ziegler DO with a diagnosis of RIGHT SHOULDER PAIN,RIGHT IMPINGEMENT SYNDROME,RIGHT SHOULDER TENDONITIS. Date of Evaluation: 12/09/20 Physical Therapist: Kirk Herndon, PT, Cert MDT, OCS - Visit Plan Frequency: 1-2x /Week Duration: 4 Weeks Plan: PT INTERVENTIONS RTC/POSTURAL EX'S MODALTIES AND FUNCTIONAL STRENGTHENING - Subjective This 50 y/o female presents to physical therapy with right shoulder pain for~ one month. Patient possibly injury shoulder repetitive at work. Pain located right anterior shoulder described as ache occasional sharp pain. Seen DR prescribed prednisone recommended MD. 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 Alleviating factors rest, aleve. Denies paresthesia/tingling. Pain affects sleeping. Patient pain affects QOL function and job demnads. SOCIAL: single. VOCATION: [employer] - Pain Right Shoulder Pain Intensity (Out of 10): 2 Pain Intensity Range: 10 - Objective POSTURE: mild forward. NUERO: denies paresthesia/tingling ,reflexes L3-4,L4-5,L5-S1. PALPATION: tender bicep long head ,subscapulrus. AROM: shoulder flexion 150 ,abduction 150 degrees with pain at ER an OP,ER 90 degrees ,IR L5. MMT: infraspinatous 4/5,subscapularis 4/5 mild pain supraspinatus 4-/5,deltoid 4-/5 deltoid. middle traps 4-/5 ,LT 3+/5 - Special Tests R Shoulder External Rotation Lag Test - RC Tear: Negative R Shoulder Lift Off Test - Subscapular Tear: Negative R Shoulder Drop Sign - IS Test: Negative R Shoulder Empty Can - SS: Positive R Shoulder Belly Press - SupScap: Negative R Shoulder Neer - Impingement: Positive R Shoulder Wong Eyad - Impingement: Positive R Shoulder Speeds Test - Labrum/Biceps: Positive - Balance/Special Test Scores Quick DASH Score: 25.0000 - Goals Goal 1:: Patient to be I with HEP Goal Time Frame: 4-6 Weeks Goal 2:: Patient to decrease shoulder pain by 50% or > to improve function Goal Time Frame: 4-6 Weeks Goal 3:: Patient to increase strength RTC and deltoid 4/5 to improve function and job demands Goal Time Frame: 4-6 Weeks Goal 4:: Patient be able to perform job demands and ADL's without pain with ROM symmetrical left to right Goal Time Frame: 4-6 Weeks Goal 5:: Patient to improve quick dash by 5 points or > to improve function. Goal Time Frame: 4-6 Weeks - Rehabilitation Potential Physical Therapy Diagnosis: This patient has right shoulder pain possible tendonitis bicipital, and subscapularis tendonitis due to patient job demands along with MMT and movements that affect ADLS reaching behind back thus benefit from skilled PT Rehabilitation Potential: Good - Anticipated Interventions Patient/Client Instruction: Educate patient on: Condition, Plan of Care For the Purpose of:: To decrease pain, To increase ROM, To improve muscle performance and motor function, To improve ability to perform ADL's, To increase tolerance to activity/condition/position, To improve ability of physical actions for home/community/work/leisure, To improve gait and locomotor functions, To increase flexibility/ROM, To reduce risk of recurrence, To improve ability to perform tasks related to life management Therapeutic Exercise to Include: Strength training, Postural training, Passive ROM, Active ROM For the Purpose of:: To decrease pain, To increase ROM, To improve muscle performance and motor function, To improve ability of physical actions for home/community/work/leisure, To improve health of tissue, To decrease soft tissue restriction, To increase flexibility/ROM, To reduce risk of recurrence, To prevent re-injury, To improve ability to perform tasks related to life management TENS: Yes IF ES: Yes Thermo therapy (hot pack): Yes Ultrasound (thermal/non thermal): Yes For the Purpose of:: To decrease pain, To increase ROM, To improve health of tissue, To decrease soft tissue restriction, To increase flexibility/ROM Thank you for the opportunity to evaluate your patient. For Medicare and Medicare HMO plans, please review the plan of care and approve it. It will need to be FAXED BACK to us at [phone] for Medicare purposes. For Medicare only, by signing this I certify the plan of care. Please let me know if there are questions or concerns regarding this plan of care. Physician Signature: Date:
--- NOTE | 2021-01-23 13:45 | HP.PTREVAL ---
Dr. Lisa Ziegler, DO, It has been my pleasure to treat JUNIOR LATHAM over the last 5 visits for RIGHT SHOULDER PAIN,RIGHT IMPINGEMENT SYNDROME,RIGHT SHOULDER TENDONITIS. Please see the progress note below for an update on the physical therapy plan of care! Subjective: Doing pretty good but still trouble going backward. pain 0/10 unless reaching BW and then 5/10 transiently. Other activites are pretty normal. Sleep is OK. Work going OK. Objective/Function: Full aROM except IR, still painful and just past PSIS or 50 degrees at 90 abd. Strength rotations and elevations without pain today, only pain with end range IR effecting dressing mostly. Plan Plan: f/u two weeks to check IR and d/c if better. Balance/Gait/Functional tests - Balance/Special Test Scores Quick DASH Score: 15.9075 Goals Goal 1:: Patient to be I with HEP Goal Time Frame: 4-6 Weeks Goal Progress: Goal Met Goal 2:: Patient to decrease shoulder pain by 50% or > to improve function Goal Time Frame: 4-6 Weeks Goal Progress: Goal Met Goal 3:: Patient to increase strength RTC and deltoid 4/5 to improve function and job demands Goal Time Frame: 4-6 Weeks Goal Progress: Goal Met Goal 4:: Patient be able to perform job demands and ADL's without pain with ROM symmetrical left to right Goal Time Frame: 4-6 Weeks Goal Progress: Goal Met Goal 5:: Patient to improve quick dash by 5 points or > to improve function. Goal Time Frame: 4-6 Weeks Goal Progress: Goal Met Goal 6:: Hand behind her to put on jacket without hesitation or pain. Goal Time Frame: 2-4 Weeks Goal Progress: NEW GOAL Anticipated Interventions Patient/Client Instruction: Educate patient on: Condition, Plan of Care For the Purpose of:: To decrease pain, To increase ROM, To improve muscle performance and motor function, To improve ability to perform ADL's, To increase tolerance to activity/condition/position, To improve ability of physical actions for home/community/work/leisure, To improve gait and locomotor functions, To increase flexibility/ROM, To reduce risk of recurrence, To improve ability to perform tasks related to life management Therapeutic Exercise to Include: Strength training, Postural training, Passive ROM, Active ROM For the Purpose of:: To decrease pain, To increase ROM, To improve muscle performance and motor function, To improve ability of physical actions for home/community/work/leisure, To improve health of tissue, To decrease soft tissue restriction, To increase flexibility/ROM, To reduce risk of recurrence, To prevent re-injury, To improve ability to perform tasks related to life management TENS: Yes IF ES: Yes Thermo therapy (hot pack): Yes Ultrasound (thermal/non thermal): Yes For the Purpose of:: To decrease pain, To increase ROM, To improve health of tissue, To decrease soft tissue restriction, To increase flexibility/ROM Please do not hesitate to contact me at [phone] by phone or if you have questions or concerns regarding this new plan of care! Sincerely, Getachew Dominguez, DPT, OCS, CSCS
--- NOTE | 2021-02-13 11:48 | HP.PT.NRP ---
JUNIOR LATHAM was seen in my office for initial evaluation on 12/09/20. The following Plan of Care was established for this patient: Initial Frequency: 1-2x /Week Initial Duration: 4 Weeks Patient/Client Instruction: Educate patient on: Condition, Plan of Care For the Purpose of:: To decrease pain, To increase ROM, To improve muscle performance and motor function, To improve ability to perform ADL's, To increase tolerance to activity/condition/position, To improve ability of physical actions for home/community/work/leisure, To improve gait and locomotor functions, To increase flexibility/ROM, To reduce risk of recurrence, To improve ability to perform tasks related to life management Therapeutic Exercise to Include: Strength training, Postural training, Passive ROM, Active ROM For the Purpose of:: To decrease pain, To increase ROM, To improve muscle performance and motor function, To improve ability of physical actions for home/community/work/leisure, To improve health of tissue, To decrease soft tissue restriction, To increase flexibility/ROM, To reduce risk of recurrence, To prevent re-injury, To improve ability to perform tasks related to life management TENS: Yes IF ES: Yes Thermo therapy (hot pack): Yes Ultrasound (thermal/non thermal): Yes For the Purpose of:: To decrease pain, To increase ROM, To improve health of tissue, To decrease soft tissue restriction, To increase flexibility/ROM This patient was last seen in our office . Pertinent comments regarding their Physical therapy will appear below: Patient seen for PT for Stretching ,ROM and strengthening RTC . 90 % improved thus d/c At this point I will be discontinuing this patient from physical therapy. I would be happy to see this patient again in the future if found appropriate by the physician. Thank you! Kirk Herndon, PT, Cert MDT, OCS Balance/Gait/Functional tests - Balance/Special Test Scores Quick DASH Score: 15.9064
== END 2021-01-23 19:00 | disposition home or self-care (01) ==
LOC: PT 13:30
PROVIDERS: PCP Internal Medicine; Referring Provider Internal Medicine; Visit Provider Internal Medicine
DX: M25.811 Other specified joint disorders, right shoulder (principal); M75.21 Bicipital tendinitis, right shoulder
CPT/HCPCS: 97035; 97110; 97162; 97530

== ENCOUNTER 2021-08-12 07:38 | Outpatient (CLI) | payer BC, SELFPAY ==
--- NOTE | 2021-08-12 07:41 | BI_ITS ---
MAMMOGRAPHY - BILATERAL SCREENING REASON FOR EXAM: Female, 51 years old. Routine annual screening examination. PERTINENT HISTORY: Grandmother with breast cancer. Aunt with breast cancer. Prior right ultrasound-guided breast biopsy. TECHNIQUE: Digital bilateral breast kameron (3D mammographic acquisition) in the CC and MLO projections. 2-D mediolateral oblique (MLO) and craniocaudad (CC) views of both breasts were obtained. CAD: Full Field Digital Mammography with Computer Added Detection was performed. COMPARISON: Comparison is made with prior study dated 08/08/2020 and 08/30/2020. FINDINGS: Breast Composition: There are scattered areas of fibroglandular density. There are no dominant masses or suspicious calcifications. A tissue clip marker is seen within the small nodular density in the retroareolar region of the right breast. The nodule has decreased in size and presently measures approximately 2 mm. No other significant abnormalities are identified. BI/SCRN MAMM (CAD)W/KAMERON BILAT IMPRESSION: Status post ultrasound-guided right breast biopsy with interval decrease in size of the previously seen 7 mm nodule. Yearly follow-up mammogram recommended. (A) ASSESSMENT CATEGORY: BIRADS Category 2: Benign. A letter regarding these results will be sent to the patient by the facility within 30 days. Approximately 10% of breast cancers are not detected by mammography. A normal mammogram should not delay biopsy of a clinically suspicious abnormality. [id number] Electronically Signed: Raffaele Galloway MD at 8:48 EDT ,
== END 2021-08-12 23:59 | disposition home or self-care (01) ==
LOC: OPBI 07:39
PROVIDERS: PCP Internal Medicine; Referring Provider Obstetrics & Gynecology; Visit Provider Obstetrics & Gynecology
DX: Z12.31 Encounter for screening mammogram for malignant neoplasm of breast (principal); Z85.3 Personal history of malignant neoplasm of breast
CPT/HCPCS: 77063; 77067

== ENCOUNTER 2021-08-12 12:07 | Outpatient (CLI) | payer BC, SELFPAY ==
[2021-08-13 22:07] LABS: Chlamydia By Nucleic Acid AMP Negative (Negative)
[2021-08-13 22:14] LABS: Gonococcus By Nucleic Acid AMP Negative (Negative)
== END 2021-08-12 23:59 | disposition home or self-care (01) ==
LOC: LABSPEC 12:08
PROVIDERS: PCP Internal Medicine; Referring Provider Nurse Practitioner Women's Health; Visit Provider Nurse Practitioner Women's Health
DX: Z11.3 Encounter for screening for infections with a predominantly sexual mode of transmission (principal); N76.0 Acute vaginitis
CPT/HCPCS: 87070; 87205; 87491; 87591

== ENCOUNTER → 2022-08-20 | Outpatient (CLI) | payer BC, SELFPAY ==
--- NOTE | 2022-08-20 07:17 | BI_ITS ---
MAMMOGRAPHY - BILATERAL SCREENING REASON FOR EXAM: Female, 52 years old. Routine annual screening examination. PERTINENT HISTORY: Grandmother with breast cancer. Aunt with breast cancer. History of prior right needle guided breast biopsy. TECHNIQUE: Digital bilateral breast kameron (3D mammographic acquisition) in the CC and MLO projections. 2-D mediolateral oblique (MLO) and craniocaudad (CC) views of both breasts were obtained. CAD: Full Field Digital Mammography with Computer Added Detection was performed. COMPARISON: Comparison is made with prior study August 12, 2021 and August 30, 2020. FINDINGS: Breast Composition: There are scattered areas of fibroglandular density. There are no dominant masses or suspicious calcifications. A tissue clip marker is once again seen in the lateral retroareolar region of the right breast. Stable small benign-appearing bilateral axillary lymph nodes. No other significant abnormalities are identified. There has been no significant change since the prior study. BI/SCRN MAMM (CAD)W/KAMERON BILAT IMPRESSION: Stable bilateral screening mammogram. Yearly follow-up mammogram recommended. (A) ASSESSMENT CATEGORY: BIRADS Category 2: Benign. A letter regarding these results will be sent to the patient by the facility within 30 days. Approximately 10% of breast cancers are not detected by mammography. A normal mammogram should not delay biopsy of a clinically suspicious abnormality. [id number] Electronically Signed: Raffaele Galloway MD at 10:47 EDT ,
== END | disposition home or self-care (01) ==
LOC: OPBI 07:16
PROVIDERS: PCP Internal Medicine; Referring Provider Nurse Practitioner Women's Health; Visit Provider Nurse Practitioner Women's Health
DX: Z12.31 Encounter for screening mammogram for malignant neoplasm of breast (principal); Z80.3 Family history of malignant neoplasm of breast
CPT/HCPCS: 77063; 77067

== ENCOUNTER 2022-10-23 07:30 | Outpatient (RCR) | payer BC, SELFPAY ==
--- NOTE | 2022-09-21 08:09 | HP.PTEVAL ---
Patient's Visit Information JUNIOR LATHAM is a 52 year old F referred to Physical Therapy by Dr. Lisa Ziegler DO with a diagnosis of Trochanteric bursitis L tension LAMB, trap spasms. Date of Evaluation: 09/21/22 Physical Therapist: Getachew Dominguez, DPT, OCS, CSCS - Visit Plan Frequency: 2x /Week Duration: 4-6 Weeks Plan: 2x/week for 4-6 for. 1. US nonthermal L trochanteric bursa. 2. rollout and stretch L ITB, TFL, piriformis, quad. 3. strength L hip to HEP. 4. monitor posture and retraction effects on intermittent LAMB. Neck ROM as needed. - Subjective L hip bursitis and ITB and painful. It has been there four months. Worse on steps. 8/10 Transient. Sitting is comfortable. insidious onset. Also hurt with lifting leg to take pants off and socks off. Lifting leg to get in bed. Hurts to roll on L side. Sleeps is not interrupted. Sleeps on right side. Pain is lateral L hip. Pt was supposed to get prednisone but did not, gave muscle relaxers which have helped somewhat but cannot take before work. 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 Mostly hurts on steps at work. sitting 30 minutes and getting up can be bothersome at first. Basic ADLs are not a problem. Hobbies: TV and can do this without pain unless she lifts leg. Exercises: none. One step at home: Hurts. Gets LAMB pounding back of head after sleeping. Can wake up with LAMB, One time every two weeks, can last hours to days. No arm symptoms, no numbness or tingling. - Pain L hip lateral. Pain Intensity (Out of 10): 0 Pain Intensity Range: 0, 8 - Objective Walking without antalgia today, steps hurt to lead with L, otherwise needs rail. trasnfers bed and chair are I without pain today. Tender max to touch in L GT area and mod in ITB L, very tight also L ITB and hurts to stretch. + FADDIR L hip, - RAYMUNDO. AROM L hip WFL and synnetrical except IR 5 L vs 12 R. strength LE 4 hips with pain abduction L, 4- extension, 4 flexion with L pain. knees and ankles 4+ B without pain. reflexes 1/3 patella and achilles B. Sensation WNL to gross lgiht touch. UE bi and tri reflexes 1/3. Sensation UE WNL to gross light touch. UE AROM and strength 4/5 without myotomal problems. WFL ROM. Cervical AROM ext 55, rotations 65 and no pain, SB symmetrical. Limited retraction slightly. Tender minimally in subocc. Posture is FW head and extended upper cervical, protracted scap. - Balance/Special Test Scores Lower Extremity Functional Score: 51 - Goals Goal 1:: up and down steps with L without pain Goal Time Frame: 2-4 Weeks Goal 2:: hip pain with trasnitions and work 75% better and manageable Goal Time Frame: 4-6 Weeks Goal 3:: I approp HEP for posture and hip management Goal Time Frame: 4-6 Weeks Goal 4:: Sit with appropriate cervical posture without VC. Goal Time Frame: 4-6 Weeks - Rehabilitation Potential Physical Therapy Diagnosis: L trochanteric bursitis, LAMB tension Rehabilitation Potential: Fair - Anticipated Interventions Patient/Client Instruction: Educate patient on: Condition, Plan of Care For the Purpose of:: To decrease pain, To increase ROM, To improve nutrient delivery to tissue, To improve muscle performance and motor function, To increase tolerance to activity/condition/position Therapeutic Exercise to Include: Strength training, Postural training, Flexibilty training, Passive ROM, Active ROM For the Purpose of:: To decrease pain, To decrease swelling/inflammation, To increase ROM, To improve nutrient delivery to tissue, To improve muscle performance and motor function, To increase tolerance to activity/condition/position Manual Therapy Techniques to Include: Mobilization, Passive ROM, Soft tissue mobilization For the Purpose of:: To decrease pain, To increase ROM, To improve nutrient delivery to tissue, To improve muscle performance and motor function Ultrasound (thermal/non thermal): Yes - nonthermal L trochanter area For the Purpose of:: To decrease pain, To decrease swelling/inflammation Thank you for the opportunity to evaluate your patient. For Medicare and Medicare HMO plans, please review the plan of care and approve it. It will need to be FAXED BACK to us at [phone] for Medicare purposes. For Medicare only, by signing this I certify the plan of care. Please let me know if there are questions or concerns regarding this plan of care. Physician Signature: Date:
--- NOTE | 2022-12-11 13:42 | HP.PT.NRP ---
Patient Information Patient Information: JUNIOR LATHAM was seen in my office for initial evaluation on 09/21/22. The following Plan of Care was established for this patient: POC Established Initial Frequency: 2x /Week Initial Duration: 4-6 Weeks Anticipated Interventions Patient/Client Instruction: Educate patient on: Condition and Plan of Care For the Purpose of:: To decrease pain, To increase ROM, To improve nutrient delivery to tissue, To improve muscle performance and motor function and To increase tolerance to activity/condition/position Therapeutic Exercise to Include: Strength training, Postural training, Flexibilty training, Passive ROM and Active ROM For the Purpose of:: To decrease pain, To decrease swelling/inflammation, To increase ROM, To improve nutrient delivery to tissue, To improve muscle performance and motor function and To increase tolerance to activity/condition/position Manual Therapy Techniques to Include: Mobilization, Passive ROM and Soft tissue mobilization For the Purpose of:: To decrease pain, To increase ROM, To improve nutrient delivery to tissue and To improve muscle performance and motor function Ultrasound (thermal/non thermal): Yes (nonthermal L trochanter area) For the Purpose of:: To decrease pain and To decrease swelling/inflammation Last Seen Last Seen: This patient was last seen in our office 10/23/22. Pertinent comments regarding their Physical therapy will appear below: Pt seen 9 visits of POC and was 50% better. She was to f/u two weeks later but did not schedule or attend. at this point, it has been over 6 weeks and I will discontinue due to nonattendance. At this point I will be discontinuing this patient from physical therapy. I would be happy to see this patient again in the future if found appropriate by the physician. Thank you! Getachew Dominguez, DPT, OCS, CSCS Balance/Gait/Functional tests Balance/Special Test Scores Lower Extremity Functional Score: 67
== END 2022-10-23 19:00 | disposition home or self-care (01) ==
LOC: PT 07:30
PROVIDERS: PCP Internal Medicine; Referring Provider Internal Medicine; Visit Provider Internal Medicine
DX: M70.62 Trochanteric bursitis, left hip (principal)
CPT/HCPCS: 97035; 97110; 97161; 97530

== ENCOUNTER → 2023-05-29 | Outpatient (CLI) | payer BC, SELFPAY ==
[2023-05-29 09:07] LABS: Absolute Lymphocyte Count 3.24 X10^3/uL (0.83-4.51); Absolute Neutrophil Count 2.8 X10^3/uL (2.0-7.7); Basophil# 0.02 X10^3/uL; Basophil% 0.3 % (0-1); Eosinophil# 0.21 X10^3/uL; Eosinophils% 3.1 % (0-5); Hemoglobin 14.9 g/dL (12.0-15.0); Lymphocyte # 3.24 X10^3/ul (0.83-4.51); Mean Corp Hgb Conc 32.4 g/dL (32-36); Mean Corpuscular Hgb 29.3 pg (27.0-32.0); Mean Corpuscular Volume 90.6 fL (81-99); Mean Platelet Vol. 10.3 fl (6.2-12.0); Monocyte# 0.47 X10^3/uL; NRBC Flagged by Analyzer 0 % (0-5); Neutrophil % 41.5 % (47-70); Platelet Count 313 K/mm3 (150-450); RBC Distribution Width CV 13.4 % (11.6-14.6); RBC Distribution Width SD 45.3 fl (35.1-43.9); Red Blood Count 5.08 M/mm3 (4.2-5.4); White Blood Count 6.8 K/mm3 (4.4-11.0)
[2023-05-29 09:36] LABS: AST(SGOT) 11 U/L (15-37); Alanine Aminotransfer ALT/SGPT 21 U/L (13-56); Albumin, Serum 3.7 g/dL (3.2-5.0); Alkaline Phosphatase 41 U/L (45-117); Anion Gap 2 (5-15); BUN 11 mg/dL (7-18); BUN/Creat Ratio 11.6 RATIO (10-20); Calcium,Total 9.4 mg/dL (8.5-10.1); Chloride 112 mmol/L (98-107); Cholesterol 148 mg/dL (200); Creatinine, Serum 0.95 mg/dL (0.55-1.02); EST Glomerular Filtration Rate 66 mL/min (>60); Est Glom Filt Rate - Afr Amer 80 mL/min (>60); Globulin 3.8 g/dL (2.2-4.2); Glucose 99 mg/dL (74-106); High Density Lipoprotein 64 mg/dL; Protein, Total 7.5 g/dL (6.4-8.2); Sodium Level 143 mmol/L (136-145); Thyroid Stim Hormone (TSH) 1.84 uIU/mL (0.358-3.74); Triglycerides 117 mg/dL; Very Low Density Lipoprotein 23 mg/dL (5-40)
== END | disposition home or self-care (01) ==
LOC: LAB 08:15
PROVIDERS: PCP Internal Medicine; Referring Provider Internal Medicine; Visit Provider Internal Medicine
DX: E78.00 Pure hypercholesterolemia, unspecified (principal)
CPT/HCPCS: 36415; 80053; 80061; 84443; 85025

== ENCOUNTER → 2023-09-13 | Outpatient (CLI) | payer BC, SELFPAY ==
--- NOTE | 2023-09-13 07:25 | BI_ITS ---
MAMMOGRAPHY - BILATERAL SCREENING REASON FOR EXAM: Female, 53 years old. Routine annual screening examination. PERTINENT HISTORY: Grandmother with breast cancer. Aunt with breast cancer. History of prior right needle breast biopsy. TECHNIQUE: Digital bilateral breast kameron (3D mammographic acquisition) in the CC and MLO projections. 2-D mediolateral oblique (MLO) and craniocaudad (CC) views of both breasts were obtained. CAD: Full Field Digital Mammography with Computer Added Detection was performed. COMPARISON: Comparison is made with prior study dated August 20, 2022 and August 12, 2021. FINDINGS: Breast Composition: There are scattered areas of fibroglandular density. There are no dominant masses or suspicious calcifications. A tissue clip marker is once again seen in the lateral retroareolar region of the right breast. Stable small benign-appearing bilateral axillary lymph nodes. No other significant abnormalities are identified. There has been no significant change since the prior study. BI/SCRN MAMM (CAD)W/KAMERON BILAT IMPRESSION: Stable bilateral screening mammogram. Yearly follow-up mammogram recommended. (A) ASSESSMENT CATEGORY: BIRADS Category 2: Benign. A letter regarding these results will be sent to the patient by the facility within 30 days. Approximately 10% of breast cancers are not detected by mammography. A normal mammogram should not delay biopsy of a clinically suspicious abnormality. [id number] Electronically Signed: Raffaele Galloway MD at 9:00 EDT ,
== END | disposition home or self-care (01) ==
LOC: OPBI 07:25
PROVIDERS: PCP Internal Medicine; Referring Provider Obstetrics & Gynecology; Visit Provider Obstetrics & Gynecology
DX: Z12.31 Encounter for screening mammogram for malignant neoplasm of breast (principal); Z80.3 Family history of malignant neoplasm of breast
CPT/HCPCS: 77063; 77067

== ENCOUNTER → 2023-10-29 | Outpatient (CLI) | payer BC, SELFPAY ==
[2023-10-29 10:37] LABS: Amphetamine Urine VISTA NEGATIVE (<1000 ng/mL); Barbiturate Urine VISTA NEGATIVE (< 200 ng/mL); Benzodiazepine Urine VISTA NEGATIVE (< 200 ng/mL); Cocaine Urine VISTA NEGATIVE (< 300 ng/mL); Ecstacy Urine VISTA NEGATIVE (< 500 ng/mL); Methadone Urine VISTA NEGATIVE (< 300 ng/mL); PCP Urine VISTA NEGATIVE (< 25 ng/mL); THC Urine VISTA NEGATIVE (< 50 ng/mL); Vista UDS pH Range 6
== END | disposition home or self-care (01) ==
LOC: MTLAB 07:25
PROVIDERS: PCP Internal Medicine
DX: Z01.89 Encounter for other specified special examinations (principal)
CPT/HCPCS: 80307

== ENCOUNTER → 2024-01-29 | Outpatient (CLI) | payer BC, SELFPAY ==
--- NOTE | 2024-01-29 09:55 | CT_ITS ---
STUDY: LOW DOSE CT LUNG CANCER SCREENING REASON FOR EXAM: Female, 53 years old. SMOKER RADIATION DOSAGE (If Supplied By Facility): CTDIvol = ( 3.02 ) mGy, DLP = ( 101.18 ) mGycm TECHNIQUE: No contrast was administered. Low dose technique was utilized (average mAS-38 and kVp 120). 1.25 mm axial source images with a slice interval of 1.25-mm were reconstructed in lung windows. 2.5 mm axial source images with a slice interval of 2.5-mm were reconstructed in lung windows. 5.0 mm axial source images with a slice interval of 5.0-mm were reconstructed in soft tissue windows. COMPARISON: None. Emphysema: Mild emphysema. 6 mm noncalcified nodule in the posterior subpleural right lower lobe on image 100 and follow-up CT is recommended in 6 months document stability.. Endobronchial lesion: None Aorta: No thoracic aortic aneurysm. CORONARY ARTERIES: Coronary artery calcification is not seen. Heart: No cardiomegaly. Pulmonary artery: Normal Mediastinal nodes: Normal Other chest and abdominal findings: Status post cholecystectomy. CT/Low Dose CT Lung Screening IMPRESSION: Lung-RADS category 3 - Continue screening with LDCT in 6 months. IMPORTANT NOTES FOR USE: ACR Lung-RADS Version 1.1 Assessment Categories Release Date: 2018 Category: Coded 0-4 bases on nodule(s) with highest degree of suspicion. Negative screen is defined as categories 1 and 2; a positive screen is defined as categories 3 and 4. Category 3 and 4A nodules that are unchanged on interval CT should be coded as category 2, and individuals returned to screening in 12 months. Category 4X: Category 3 or 4 nodules with additional imaging findings that increase the suspicion of lung cancer, such as spiculation, GGN that doubles in size in 1 year, enlarged lymph notes, etc. Category Modifiers: S (significant finding unrelated to lung cancer) Electronically Signed: Jamie Miller MD at 22:19 EDT ,
== END | disposition home or self-care (01) ==
LOC: CT 09:54
PROVIDERS: PCP Internal Medicine; Referring Provider Internal Medicine; Visit Provider Internal Medicine
DX: Z12.2 Encounter for screening for malignant neoplasm of respiratory organs (principal); F17.200 Nicotine dependence, unspecified, uncomplicated
CPT/HCPCS: 71271

== ENCOUNTER → 2024-09-18 | Outpatient (CLI) | payer BC, SELFPAY ==
--- NOTE | 2024-09-18 07:26 | BI_ITS ---
EXAM: SCRN MAMM (CAD)W/KAMERON BILAT DATE: 09/18/2024 CLINICAL HISTORY: F, Age 54 y/o , SCREENING BREAST CANCER RISK ASSESSMENT: Has not been calculated. TECHNIQUE: Bilateral screening digital breast tomosynthesis with 2D and 3D images. Computer aided detection. COMPARISON: Prior exam(s) dated 09/13/2023 and 08/20/2022. FINDINGS: TISSUE DENSITY: The breast tissue is almost entirely fatty. Bilateral Breast Mammographic Findings: There are no suspicious masses, suspicious clustered microcalcifications, architectural distortion or secondary signs of malignancy identified in either breast. Benign-appearing round calcifications are seen in both breasts. A radiopaque clip is seen in the right breast. The biopsy was benign. Post biopsy site is stable. A stable 2 mm well-circumscribed isodense mass in the superior outer, far posterior aspect of the left breast is noted. BI/SCRN MAMM (CAD)W/KAMERON BILAT IMPRESSION: OVERALL FINAL ASSESSMENT: BIRADS 2 BENIGN FINDING RECOMMENDATION: Routine annual follow-up in 1 Year A letter with findings and recommendations will be mailed to the patient. Reading Location: [id number]
== END | disposition home or self-care (01) ==
LOC: OPBI 07:25
PROVIDERS: PCP Internal Medicine; Referring Provider Obstetrics & Gynecology; Visit Provider Obstetrics & Gynecology
DX: Z12.31 Encounter for screening mammogram for malignant neoplasm of breast (principal)
CPT/HCPCS: 77063; 77067

== ENCOUNTER → 2024-11-22 | Outpatient (CLI) | payer BC, SELFPAY ==
[2024-11-22 16:44] LABS: CRP < 3.00 mg/L (0.0-3.0)
[2024-11-24 16:09] LABS: Immunoglobulin A 184 mg/dL (87-352)
== END | disposition home or self-care (01) ==
LOC: MTLAB 10:11
PROVIDERS: PCP Internal Medicine; Referring Provider Internal Medicine Gastroenterology; Visit Provider Internal Medicine Gastroenterology
DX: R19.7 Diarrhea, unspecified (principal)
CPT/HCPCS: 36415; 82784; 83516; 84443; 86140; 86255

== ENCOUNTER → 2025-01-18 | Outpatient (CLI) | payer BC, SELFPAY ==
--- NOTE | 2025-01-18 07:35 | RAD_ITS ---
PROCEDURE: ABDOMEN SINGLE VIEW 01/18/2025 REASON FOR EXAM: ABDOMINAL PAIN TECHNIQUE: Procedure Code: RADABD Modality: DX Procedure: ABDOMEN SINGLE VIEW COMPARISON: None FINDINGS: The bowel gas pattern is nonobstructive but nonspecific. There is no dilated loop of bowel. Rldt-yr-[id number] amount of stool is present in the colon. Lung bases are clear. Osseous structures are normal. Surgical clips are present in the right upper quadrant. SI joints are symmetrical. Degenerative changes of both hips present. RAD/Abdomen Single View IMPRESSION: Bvajfcnq-ug-ueszr amount of stool in the colon. No bowel obstruction. Degenerative changes of both hips. Reading Location: [id number]
[2025-01-18 11:03] LABS: Barbiturate Urine NEGATIVE (< 200 ng/mL); Benzodiazepine Urine PRESUMPTIVE POSITIVE (< 200 ng/mL); PCP Urine NEGATIVE (< 25 ng/mL); THC Urine PRESUMPTIVE POSITIVE (< 50 ng/mL)
== END | disposition home or self-care (01) ==
LOC: LAB 07:24
PROVIDERS: PCP Internal Medicine; Referring Provider Internal Medicine; Visit Provider Internal Medicine
DX: R10.9 Unspecified abdominal pain (principal)
CPT/HCPCS: 74018; 80307

== ENCOUNTER → 2025-01-29 | Outpatient (CLI) | payer BC, SELFPAY ==
--- NOTE | 2025-01-29 07:20 | CT_ITS ---
PROCEDURE: LOW DOSE CT LUNG SCREENING 01/29/2025 REASON FOR EXAM: LOW-DOSE COMPUTED TOMOGRAPHY (LDCT) OF CHEST WITHOUT CONTRAST FOR TECHNIQUE: Procedure Code: [id number] Modality: CT Procedure: LOW DOSE CT LUNG SCREENING Coronal and Sagittal reconstruction series were provided. One or more dose reduction techniques were used (e.g., Automated exposure control, adjustment of the mA and/or kV according to patient size, use of iterative reconstruction technique). REFERENCE LINK: Radionomy Lung-RADS RADIATION DOSE SUMMARY: CTDlvol: 4.02 mGy DLP: 141.95 mGycm COMPARISON: Low-dose lung screen, 01/29/2024. FINDINGS: Lower neck:The thyroid gland is normal. There is no supraclavicular lymphadenopathy. Mediastinum:There is a stable right paratracheal lymph node. Heart and thoracic aorta:The heart size is normal. There is no pericardial effusion. There is minimal calcific vascular disease of the coronary arteries and thoracic aorta. Esophagus:Normal. Upper Abdomen:The gallbladder is surgically absent. There is a coarse calcification in the left thyroid gland. Chest wall:The soft tissues of the chest wall appear unremarkable. There is no axillary lymphadenopathy. There are findings of DISH in the mid and lower thoracic spine. Lungs, airways and pleura: There is mild upper lobe predominant centrilobular emphysema. There is a stable pleural-based soft tissue density nodule in the superior segment of the lower lobe of the right lung (image 100). There are no new pulmonary nodules. There are no pleural effusions. CT/Low Dose CT Lung Screening IMPRESSION: 1. Stable nodule in the lower lobe of the right lung. There are no new pulmon samantha nodules. 2. Emphysema. 3. Minimal calcific vascular disease. Lung-RADS Category: 2 S: Benign behavior. Other Significant Findings: Emphysema. Calcific vascular disease. Recommendation: Follow-up low-dose chest CT in 12 months. Reading Location: [place] [id number]
== END | disposition home or self-care (01) ==
LOC: CT 07:19
PROVIDERS: PCP Internal Medicine; Referring Provider Internal Medicine; Visit Provider Internal Medicine
DX: Z12.2 Encounter for screening for malignant neoplasm of respiratory organs (principal); F17.200 Nicotine dependence, unspecified, uncomplicated
CPT/HCPCS: 71271

== ENCOUNTER → 2025-02-06 | Outpatient (CLI) | payer BC, SELFPAY ==
[2025-02-06 09:07] LABS: Hematocrit 44.1 % (37-47); Hemoglobin 15.2 g/dL (12.0-15.0); Immature Granulocytes Count 0.030 X10^3/uL (0.0-0.0); Mean Corp Hgb Conc 34.5 g/dL (32-36); Mean Corpuscular Volume 86.5 fL (81-99); Mean Platelet Vol. 10.8 fl (6.2-12.0); NRBC Flagged by Analyzer 0 % (0-5); Platelet Count 313 K/mm3 (150-450); RBC Distribution Width CV 14.3 % (11.6-14.6); RBC Distribution Width SD 45.7 fl (35.1-43.9); Red Blood Count 5.10 M/mm3 (4.2-5.4); White Blood Count 13.3 K/mm3 (4.4-11.0)
[2025-02-06 09:27] LABS: AST(SGOT) 17 U/L (<=31); Alanine Aminotransfer ALT/SGPT 11 U/L (<=34); Albumin, Serum 4.8 g/dL (3.5-5.0); Alkaline Phosphatase 51 U/L (35-104); Anion Gap 13 (5-15); BUN 8 mg/dL (4-19); BUN/Creat Ratio 9.6 RATIO (10-20); Calcium,Total 9.3 mg/dL (7.6-11.0); Carbon Dioxide 22.9 mmol/L (21.0-32.0); Chloride 101 mmol/L (98-108); Ferritin 103 ng/mL (22-378); Globulin 3.1 g/dL (2.2-4.2); Glucose 101 mg/dL (70-99); Potassium 3.8 mmol/L (3.3-5.1)
[2025-02-06 10:09] LABS: CRP < 3.00 mg/L (0.0-3.0); LDH 191 U/L (84-246)
[2025-02-08 15:08] LABS: Albumin 3.9 g/dL (2.9-4.4); Anti-Parietal Cell AB, QN 1.4 Units (0.0-20.0); Anti-Smooth Muscle ABS 9 Units (0-19); Cytoplasmic Ab (C-ANCA) <1:20 titer (Neg:<1:20); Gamma Globulin 1.2 g/dL (0.4-1.8); Gastrin, Serum 21 pg/mL (0-115); Immunoglobulin A 212 mg/dL (87-352); Immunoglobulin G 1168 mg/dL (586-1602); Immunoglobulin M 103 mg/dL (26-217); PROEL- TOTAL PROTEIN 7.3 g/dL (6.0-8.5); Perinuclear Ab (P-ANCA) <1:20 titer (Neg:<1:20)
[2025-02-10 19:08] LABS: Anti-Chromatin <0.2 AI (0.0-0.9); Anti-Jo <0.2 AI (0.0-0.9); Anti-dsDNA Ab 1 IU/mL (0-9); Egg, Whole <0.10 kU/L (Class 0); Mussels <0.10 kU/L (Class 0); SJOGREN'S Anti-SS-A test < 0.2 AI (0.0-0.9); SJOGREN'S Anti-SS-B test < 0.2 AI (0.0-0.9); Vitamin D 1,25-Dihydroxy 60.3 pg/mL (24.8-81.5)
== END | disposition home or self-care (01) ==
LOC: LAB 08:15
PROVIDERS: PCP Internal Medicine; Referring Provider Internal Medicine Gastroenterology; Visit Provider Internal Medicine Gastroenterology
DX: K58.9 Irritable bowel syndrome, unspecified (principal)
CPT/HCPCS: 36415; 80053; 82652; 82728; 82784; 82941; 83516; 83615; 84165; 84443; 85025; 85652; 86003; 86005; 86037; 86140; 86225; 86235; 86255; 86334

== ENCOUNTER → 2025-02-21 | Outpatient (CLI) | payer BC, SELFPAY | END | disposition home or self-care (01) | LOC: PSN 07:55 | PROVIDERS: PCP Internal Medicine; Referring Provider Internal Medicine; Visit Provider Internal Medicine | DX: J43.9 Emphysema, unspecified (principal) | CPT/HCPCS: 94060; 94726; 94729 ==

== ENCOUNTER → 2025-02-23 | Outpatient (CLI) | payer BC, SELFPAY ==
--- NOTE | 2025-02-23 07:21 | CT_ITS ---
PROCEDURE: ABDOMEN/PELVIS WITH CONTRAST 02/23/2025 REASON FOR EXAM: ABDOMINAL PAIN History of severe IBS. TECHNIQUE: Procedure Code: [id number] Modality: CT Procedure: ABDOMEN/PELVIS WITH CONTRAST Coronal and Sagittal reconstruction series were provided. CONTRAST: Isovue-300 VOLUME: 100 mL One or more dose reduction techniques were used (e.g., Automated exposure control, adjustment of the mA and/or kV according to patient size, use of iterative reconstruction technique. RADIATION DOSE SUMMARY: CTDlvol: 17 mGy DLP: 1177.56 mGycm COMPARISON: None FINDINGS: Lung bases: The lung bases are clear. Liver: Normal size. No mass. Gallbladder: Surgically absent. Spleen: Normal size. Pancreas: Normal size without evidence of mass surrounding inflammation or ductal dilation. Adrenals: There is a 1.3 cm hypodense nodule in the left adrenal gland with a tiny calcification along its inferior cortical margin. This may represent a small adenoma or MR Kerrie. Kidneys: Normal renal sizes. No hydronephrosis. Bladder: Unremarkable Reproductive Organs: Prior hysterectomy. Adnexal regions are unremarkable. Bowel: Colonic diverticulosis without diverticulitis. Appendix: The appendix is not identified. There is no inflammatory process identified in the right lower quadrant to suggest appendicitis. Lymph nodes: Unremarkable. Vasculature: Mild diffuse atherosclerotic calcifications are noted. Peritoneum / Retroperitoneum: Unremarkable Bones: Mild degenerative changes. CT/Abdomen/Pelvis WITH Contrast IMPRESSION: Status post cholecystectomy. 1.3 cm hypodense nodule in the left adrenal gland with a punctate calcification along its inferior margin. This may represent an adenoma or MR Kerrie. Reading Location: [id number]
--- OUTSIDE RECORDS SUMMARY | 2025-02-23 07:38 | XMS RPT_ITS | CCD ---
Author Organization [facility] Care Team Providers Care Skein Yarn Dyer Helper Name Role Phone Katey Elizabeth MD Unavailable [phone] Lisa Ziegler Unavailable [facility] Unavailable Ricardo Sutherland Unavailable Cas Wayne Unavailable Christianne Bundy Unavailable Catherine Bruno Unavailable Unavailable Janelel Go Unavailable Unavailable Cikimberly Willa Unavailable Gravius, Samara Unavailable Unavailable Unavailable Unavailable Slarb, Isabel Unavailable Unavailable Tk Simeon Unavailable Eliecer Reeves Unavailable Unavailable Janelle Go Unavailable Unavailable Gravius, Samara Unavailable Unavailable Eliecer Youssef Unavailable Unavailable Lisa Ziegler DO Unavailable [facility] Unavailable Dr. Tk Simeon Unavailable Eugenio Wheeler MD Unavailable Ricardo Sutherland Unavailable Cas Wayne Unavailable Catherine Bruno Unavailable Unavailable Gravius SATELLITE PROJECT SITE MONITOR, Samara Unavailable Unavailable Slarb TARA, Isabel Unavailable Unavailable Eliecer Youssef LPN Unavailable Unavailable Messenger Janelle STROUD Unavailable Unavailable Ciesa NISA Willa Unavailable Unavailable Unavailable Dr. Lisa Pascal Primary Care Provider [phone] Dr. Lisa Ziegler Referring Provider Stephanie LISA, MARIA L Barba Attending Provider Christiane TELESCOPE REPAIRER, LYN Herbert Attending Provider [phone] Cherelle Blankenship Unavailable Dr. Lisa Ziegler Primary Care Provider [phone] Dr. Lisa Ziegler Referring Provider [phone] Dr. Katey Elizabeth Attending Provider [phone] Ming LECHUGA, Lisa Attending Unavailable Ming LECHUGA, Lisa Referring Unavailable Lisa Ziegler DO Consulting Unavailable Dr. Edd Saxena Attending Provider CHRISTIANO Gonzalez LPN Unavailable Unavailable Alberto INTERNATIONAL MARKETING SPECIALIST, Liz Unavailable Dr. Lisa Ziegler DO Primary Care Provider Clara KAPLAN, Dr. Del Toro Attending Provider Dr. Katey Elizabeth MD Referring Provider [phone] Dr. Lisa Ziegler DO Referring Provider [phone] Dr. Tk Simeon MD Attending Provider Dr. Tk Simeon MD Referring Provider Dr. Lisa Ziegler DO Primary Care Physician Dr. Tk Simeon MD Attending Physician [phone] Dr. Lisa Ziegler DO Attending Physician [phone] Dr. Lisa Ziegler DO Referring Provider [phone] KENYA FERREIRA Nurse Practitioner [phone] Aly Gotti DO Attending Physician [phone] Lisa Ziegler Primary Care Unavailable JENNY COY Consulting Unavailable Lisa Ziegler Attending Unavailable Lisa Ziegler Referring Unavailable Tk Simeon Attending Unavailable Tk Simeon Referring Unavailable Lisa Ziegler Primary Care Unavailable Katey Elizabeth Attending Unavailable Katey Elizabeth Referring Unavailable Ming, Lisa Primary Care Unavailable Friend, Aly Attending Unavailable Friend, Aly Referring Unavailable Ming, Lisa Primary Care Unavailable Ming, Lisa Primary Care Unavailable Friend, Aly Attending Unavailable Friend, Aly Referring Unavailable Ming, Lisa Attending Unavailable Ming, Lisa Referring Unavailable Ming, Lisa Primary Care Unavailable Ming, Lisa Primary Care Unavailable Friend, Aly Attending Unavailable Friend, Aly Referring Unavailable Katey Elizabeth Attending Unavailable Ming, Lisa Primary Care Unavailable Ming, Lisa Referring Unavailable Ming, Lisa Primary Care Unavailable Friend, Aly Attending Unavailable Ming, Lisa Referring Unavailable Ming, Lisa Primary Care Unavailable Ming, Lisa Attending Unavailable Ming, Lisa Referring Unavailable Allergies Allergy Classification Reported Allergen(s) Allergy Type Date of Onset Reaction(s) Facility Amoxicillin / Clavulanate (8 sources) Amoxicillin / Clavulanate; Translations: [Augmentin *PENICILLINS*] Drug Allergy [facility] Work Phone: Serotonin Reuptake Inhibitors (SSRIs) (8 sources) FLUoxetine; Translations: [PROzac *ANTIDEPRESSANT S*] Drug Allergy Diarrhea, Vomiting [facility] Work Phone: (2 sources) penicillin v Drug Allergy 01-07-20 17 GI discomfort [facility][1] (20 sources) Amoxicillin / Clavulanate; Translations: [Augmentin *PENICILLINS*] Drug Allergy [facility] Work Phone: (20 sources) FLUoxetine; Translations: [PROzac *ANTIDEPRESSANT S*] Drug Allergy 08-13-19 22 Diarrhea, Vomiting [facility] Work Phone: (10 sources) Penicillins; Translations: [Penicillins] Propensity to adverse reactions 08-13-19 22 Vomiting [facility] (9 sources) venom-honey bee Allergy to substance 08-13-19 Anaphylaxis [facility] (1 source) FLUoxetine Drug Allergy 09-19-19 [facility] Repository (1 source) venom-honey bee Drug allergy (disorder) 09-19-19 [facility] Repository NEGATED: Highlighted row has been ruled out!Unclassified (1 source) Allergy to drug (finding) 05-02-20 13 [facility]; [facility] Work Phone: NEGATED: Highlighted row has been ruled out!Unclassified (1 source) Allergy to drug (finding) 05-02-20 13 [facility]; [facility] Work Phone: NEGATED: Highlighted row has been ruled out!Unclassified (1 source) Allergy to drug (finding) 05-02-20 13 [facility]; [facility] Work Phone: NEGATED: Highlighted row has been ruled out!Unclassified (1 source) Allergy to drug (finding) 05-02-20 13 [facility]; [facility] Work Phone: NEGATED: Highlighted row has been ruled out!Unclassified (1 source) Allergy to drug (finding) 05-02-20 13 [facility]; [facility] Work Phone: NEGATED: Highlighted row has been ruled out!Unclassified (1 source) Allergy to drug (finding) 05-02-20 13 [facility]; [facility] Work Phone: NEGATED: Highlighted row has been ruled out!Unclassified (1 source) Allergy to drug (finding) 05-02-20 13 [facility]; [facility] Work Phone: NEGATED: Highlighted row has been ruled out!Unclassified (1 source) Allergy to drug (finding) 05-02-20 13 [facility]; [facility] Work Phone: NEGATED: Highlighted row has been ruled out! (1 source) Allergy to drug (finding) 05-02-20 13 [facility]; [facility] Work Phone: NEGATED: Highlighted row has been ruled out! (1 source) Allergy to drug (finding) 05-02-20 13 [facility]; [facility] Work Phone: NEGATED: Highlighted row has been ruled out! (1 source) Allergy to drug (finding) 05-02-20 13 [facility]; [facility] Work Phone: NEGATED: Highlighted row has been ruled out! (1 source) Allergy to drug (finding) 05-02-20 [facility]; [facility] Work Phone: NEGATED: Highlighted row has been ruled out! (1 source) Allergy to drug (finding) 05-02-20 [facility]; [facility] Work Phone: NEGATED: Highlighted row has been ruled out! (1 source) Allergy to drug (finding) 05-02-20 [facility]; [facility] Work Phone: NEGATED: Highlighted row has been ruled out! (1 source) Allergy to drug (finding) 05-02-20 [facility]; [facility] Work Phone: NEGATED: Highlighted row has been ruled out! (1 source) Allergy to drug (finding) 05-02-20 [facility]; [facility] Work Phone: NEGATED: Highlighted row has been ruled out! (1 source) Allergy to drug (finding) 05-02-20 [facility]; [facility] Work Phone: NEGATED: Highlighted row has been ruled out! (1 source) Allergy to drug (finding) 05-02-20 13 [facility]; [facility] Work Phone: Medications Current Medications Medication Drug Class(es) Dates Sig (Normalized) Sig (Original) calcium carbonate 1500 mg oral tablet (4 sources) Start: 09-18-2024 take 1 tablet by mouth once daily Calcium Carbonate 600 mg calcium (1,500 mg) tablet Active 600 mg PO daily September 18, 2024 12:00am Complies with drug therapy cholecalciferol 0.125 mg oral capsule (20 sources) Vitamin D Start: 08-12-2021 take 1 capsule by mouth once daily Cholecalciferol (Vitamin D3) 125 mcg (5,000 unit) capsule Active 125 ug PO DAILY August 12, 2021 12:00am Complies with drug therapy Start: 04-05-2015 End: 07-24-2019 take 1 capsule by mouth once daily Cholecalciferol (Vitamin D3) 5,000 UNIT capsule Discontinued 5000 U PO DAILY January 31, 2019 12:00am July 24, 2019 8:02am supplement Start: 04-05-2015 Start: 04-05-2015 VITAMIN D3 500 0 UNIT CAPS One cap daily CHOLECALCIFEROL [id number] Marge Paul diazePAM 5 mg oral tablet (20 sources) Benzodiazepine Start: 09-18-2024 take 1 tablet by mouth at bedtime as needed Diazepam 5 mg tablet Active 5 mg PO AT BEDTIME as needed September 18, 2024 12:00am Complies with drug therapy Start: 11-16-2018 End: 08-21-2020 take 2 tablets by mouth twice daily as needed for anxiety Diazepam 10 mg tablet Discontinued 20 mg PO TWICE A DAY as needed for Anxiety November 16, 2018 8:50am August 21, 2020 1:33pm Start: 11-16-2018 End: 08-21-2020 take 20 mg by mouth twice daily Diazepam Discontinued 20 MG PO TWICE A DAY November 16, 2018 7:50am August 21, 2020 12:33pm Start: 07-28-2015 End: 11-16-2018 take 1 tablet by mouth three times daily as needed Diazepam 10 MG tablet Discontinued 10 mg PO 3 TIMES DAILY NEEDED as needed for Agitation July 28, 2015 12:00am November 16, 2018 8:51am Start: 09-09-2011 End: 09-03-2012 Start: 09-09-2011 End: 09-03-2012 take 2 tablets by mouth twice daily VALIUM, 5MG (Oral Tablet) 2 (two) Tablet bid for 360 days Refills: 0 Ordered: 06-Oct-2012 Janelle Go RN Start : 09-Sep-2011 End : 03-Sep-2012 Inactive Comments: from Psych Start: 04-08-2011 End: 05-08-2011 Comment on above: from Psych fenofibric acid 135 mg delayed release oral capsule (20 sources) Peroxisome Proliferator Receptor alpha Agonist Start: 08-07-2020 Trilipix 135 MG Oral Capsule Delayed Release [address] qd for 30 days Quantity: 30 {Capsule} Refills: 3 Ordered: 07-Aug-2020 Lisa Ziegler DO, DO, Kathleen Start : 07-Aug-2020 Active Start: 01-23-2020 Trilipix 135 M G Oral Capsule Delayed Release [address] qd for 0 days Quantity: 30 {Capsule} Refills: 3 Ordered: 23-Jan-2020 Ming LECHUGALisa Ming LECHUGA Lisa Start : 23-Jan-2020 Active Start: 07-31-2019 Trilipix 135 M G Oral Capsule Delayed Release [address] qd for 0 days Quantity: 30 {Capsule} Refills: 3 Ordered: 31-Jul-2019 Ming LECHUGAMarekLisanate Ziegler DO Lisa Start : 31-Jul-2019 Active Start: 01-09-2019 Trilipix 135 M G Oral Capsule Delayed Release [address] qd for 0 days Quantity: 30 {Capsule} Refills: 6 Ordered: 09-Jan-2019 Ming LECHUGAMarekLisanate Ziegler DO Lisa Start : 09-Jan-2019 Active Start: 07-28-2015 End: 08-21-2020 take 1 capsule by mouth once daily Fenofibric Acid (Choline) (Trilipix) 135 mg capsule,delayed release(DR/EC) Active 135 mg PO DAILY August 21, 2020 12:00am Complies with drug therapy Start: 09-27-2009 Magnesium (4 sources) Start: 09-18-2024 take 1 tablet by michelle th once daily Magnesium 250 mg tablet Active 250 mg PO daily September 18, 2024 12:00am Complies with drug therapy Start: 09-18-2024 take 1 tablet by michelle th once daily Start: 09-18-2024 take 1 tablet by michelle th once daily Magnesium 250 mg tablet Active 250 mg PO daily September 18, 2024 12:00am Multivitamin 1 EACH tablet (4 sources) Start: 01-31-2019 Multivitamin 1 EACH tablet Active 1 NMA PO DAILY January 31, 2019 12:00am supplement Complies with drug therapy Start: 01-31-2019 Start: 01-31-2019 Multivitamin 1 EACH tablet Active 1 NMA PO DAILY January 31, 2019 12:00am supplement Start: 01-31-2019 Multivitamin 1 EACH tablet Active 1 NMA PO DAILY January 31, 2019 12:00am Multivitamin preparation (5 sources) Start: 01-31-2019 Multivitamin A ctive 1 EACH PO DAILY January 31, 2019 9:57am Start: 01-31-2019 Multivitamin A ctive 1 EACH PO DAILY January 30, 2019 11:00pm Start: 01-31-2019 Multivitamin A ctive 1 EACH PO DAILY January 31, 2019 12:00am sertraline 100 mg oral tablet (20 sources) Serotonin Reuptake Inhibitor Start: 09-18-2024 take 1 tablet by mouth once daily Sertraline (Zoloft) 100 mg tablet Active 100 mg PO daily September 18, 2024 12:00am Complies with drug therapy Start: 10-22-2009 End: 10-22-2009 Completed/Discontinued Medications Medication Drug Class(es) Dates Sig (Normalized) Sig (Original) acetaminophen 250 mg / aspirin 250 mg / caffeine 65 mg oral tablet (20 sources) Platelet Aggregation Inhibitor, Nonsteroidal Anti-inflammatory Drug, Central Nervous System Stimulant, Methylxanthine Start: 05-14-2015 End: 06-13-2015 Comment on above: Medication taken as needed. acetaminophen 300 mg / HYDROcodone bitartrate 5 mg oral tablet (20 sources) Opioid Agonist Start: 02-26-2017 VICODIN 5-300 MG TABS HYDROCODONE-ACETA MINOPHEN [id number] Katey Elizabeth MD Start: 02-25-2017 End: 06-17-2017 Start: 02-25-2017 End: 06-17-2017 take 1 tablet by mouth every six hours as needed Hydrocodone-Acetaminophen 5-325 MG Oral Tablet 1 Tablet q 6 hr prn for 0 days Quantity: 30 {Tablet} Refills: 0 Ordered: 17-Jun-2017 No Mills RN Start : 25-Feb-2017 End : 17-Jun-2017 Inactive Start: 05-04-2006 End: 03-15-2007 Start: 05-04-2006 End: 03-15-2007 take 1 tablet by mouth every four to six hours as needed VICODIN, 5-500MG (Oral Tablet) 1 (one) Tablet q4-6 hours prn for 0 days Quantity: 20 {Tablet} Refills: 0 Ordered: 04-May-2006 Galina Muir Start : 04-May-2006 End : 15-Mar-2007 Inactive acetaminophen 325 mg / oxyCODONE hydrochloride 5 mg oral tablet (9 sources) Opioid Agonist Start: 02-07-2019 End: 02-14-2019 Oxycodone-Acetaminophen 1 TABLET tablet Discontinued 1 - 2 {tbl} PO EVERY 4 HOURS NEEDED as needed for Pain 15 7 0 February 07, 2019 February 13, 2019 12:00am February 14, 2019 12:08am Other acute postprocedural pain Start: 02-07-2019 End: 02-14-2019 take 1 tablet by mouth every four hours as needed Oxycodone-Acetaminophen Discontinued 1 - 2 TABLET PO EVERY 4 HOURS NEEDED 14 11February 07, 2019 February 13, 2019 11:08pm [id number] 200 actuat albuter ol 0.09 mg/actuat metered dose inhaler (20 sources) beta2-Adrenergic Agonist Start: 08-01-2015 End: 03-02-2016 Start: 08-01-2015 End: 03-02-2016 take 2 puff(s) by inhalation three times daily ProAir HFA 108 (90 Base) MCG/ACT Inhalation Aerosol Solution 2 (two) Puff(s) Tid for 0 days Quantity: 1 {Aerosol_Soln} Refills: 1 Ordered: 02-Mar-2016 Isabel Guillen LPN Start : 01-Aug-2015 End : 02-Mar-2016 Discontinued Start: 06-25-2010 End: 07-25-2010 Start: 06-25-2010 End: 07-25-2010 take 2 puff(s) by inhalation three times daily PROVENTIL HFA, 108 (90 Base)MCG/ACT (Inhalation Aerosol Solution) 2 (two) Puff(s) tid for 0 days Quantity: 1 {Aerosol_Soln} Refills: 0 Ordered: 25-Jul-2010 No Mills RN Start : 25-Jun-2010 End : 25-Jul-2010 Inactive ALPRAZolam 0.5 mg oral tablet (20 sources) Benzodiazepine Start: 08-07-2010 End: 12-01-2010 Comment on above: twenty amitriptyline hydrochloride 25 mg oral tablet (20 sources) Tricyclic Antidepressant Start: 08-12-2021 End: 09-18-2024 take 2 tablets by mouth at bedtime Amitriptyline 25 mg tablet Discontinued 50 mg PO AT BEDTIME August 12, 2021 8:22am September 18, 2024 8:02am Start: 08-12-2021 take 50 mg by mouth at bedtime Amitriptyline Active 50 MG PO AT BEDTIME August 12, 2021 7:22am Start: 08-21-2020 End: 08-12-2021 take 1 tablet by mouth at bedtime Amitriptyline 25 mg tablet Discontinued 25 mg PO AT BEDTIME August 21, 2020 12:00am August 12, 2021 8:24am Start: 05-14-2015 End: 05-14-2015 Start: 05-14-2015 End: 05-14-2015 take 2 tablets by mouth once daily AMITRIPTYLINE HCL, 10MG (Oral Tablet) 2 (two) Tablet daily for 0 days Quantity: 60 {Tablet} Refills: 0 Ordered: 14-May-2015 Cherelle Blankenship CNP Start : 14-May-2015 End : 14-May-2015 Inactive Comment on above: Mail order. dr kenji fisher amoxicillin 875 mg / clavula dilcia 125 mg oral tablet (20 sources) Penicillin-class Antibacterial Start: 06-11-2009 Start: 06-11-2009 take 1 tablet by michelle twice daily AUGMENTIN, 875-125MG (Oral Tablet) 1 Tablet Twice daily for 0 days Quantity: 28 {Tablet} Refills: 0 Ordered: 24-Jun-2009 Janelle Go RN Start : 11-Jun-2009 Inactive ARIPiprazole 10 mg oral tablet (20 sources) Atypical Antipsychotic Start: 08-12-2021 End: 09-13-2023 Aripiprazole 10 mg tablet Discontinued 15 mg PO DAILY August 12, 2021 8:23am September 13, 2023 8:25am Start: 08-12-2021 take 15 mg by mouth once daily Aripiprazole Active 15 MG PO DAILY August 12, 2021 7:23am Start: 08-21-2020 End: 08-12-2021 take 1 tablet by mouth once daily Aripiprazole 10 mg tablet Discontinued 10 mg PO DAILY August 21, 2020 12:00am August 12, 2021 8:24am Comment on above: dr kenji fisher atropine sulfate 0.025 mg / diphenoxylate hydrochloride 2.5 mg oral tablet (20 sources) Anticholinergic, Cholinergic Muscarinic Antagonist, Antidiarrheal Start: 08-25-2019 End: 09-12-2019 Start: 08-25-2019 End: 09-12-2019 take 1 tablet by mouth three times daily as needed Lomotil 2.5-0.025 MG Oral Tablet 1 (one) Tablet tid/prn for 0 days Quantity: 30 {Tablet} Refills: 0 Ordered: 12-Sep-2019 Start : 25-Aug-2019 End : 12-Sep-2019 Inactive azithromycin 250 mg oral tablet (20 sources) Macrolide Antimicrobial Start: 06-16-2021 End: 08-12-2021 Azithromycin 250 mg tablet Discontinued 250 mg PO daily 6 0 June 16, 2021 1:00am August 12, 2021 8:23am 2 tablets today, then 1 tablet daily on days 2 through 5 Start: 08-01-2015 End: 08-08-2015 Start: 08-01-2015 End: 08-08-2015 take 1 tablet by mouth once daily ZITHROMAX Z-KEITH, 250MG (Oral Tablet) tad Tablet daily for 0 days Quantity: 1 {Package(s)} Refills: 0 Ordered: 08-Aug-2015 Janelle Go RN Start : 01-Aug-2015 End : 08-Aug-2015 Inactive bismuth subsalicylate 35 mg/ ml oral suspension (20 sources) Bismuth Start: 09-12-2019 End: 10-12-2019 Start: 09-12-2019 End: 10-12-2019 take 30 mL by mouth four times daily Pepto-Bismol Max Strength 525 MG/15ML Oral Suspension 30 Milliliter qid for 30 days Quantity: 1 {Milliliter} Refills: 0 Ordered: 12-Sep-2019 Krzysztof PAULA Willa Start : 12-Sep-2019 End : 12-Oct-2019 Inactive busPIRone hydrochloride 30 m g oral tablet (20 sources) Start: 12-22-2019 Start: 05-20-2010 End: 08-08-2020 take 1 tablet by mouth twice daily Buspirone 30 MG tablet Discontinued 30 mg PO TWICE A DAY July 28, 2015 12:00am August 08, 2020 8:24am anxiety Start: 01-30-2010 End: 02-06-2010 Start: 01-30-2010 End: 02-06-2010 take 1 tablet by mouth twice daily BUSPAR, 30MG (Oral Tablet) 1 (one) Tablet Twice daily for 0 days Quantity: 60 {Tablet} Refills: 3 Ordered: 30-Jan-2010 Janelle Go RN Start : 30-Jan-2010 End : 06-Feb-2010 Discontinued Comments: This order discontinued per [facility]. Comment on above: This order discontin ued per [facility]. celecoxib 200 mg oral capsul e (20 sources) Nonsteroidal Anti-inflammatory Drug Start: 05-04-2006 End: 03-15-2007 Cholestyramine Resin (20 sources) Bile Acid Sequestrant Start: 10-22-2009 End: 04-15-2010 Start: 10-22-2009 End: 04-15-2010 CHOLESTYRAMINE (Powder) Powd er qd for 360 days Refills: 0 Ordered: 15-Apr-2010 CHRISTIANO Gonzalez LPN Start : 22-Oct-2009 End : 15-Apr-2010 Inactive Start: 10-22-2009 End: 04-15-2010 CHOLESTYRAMINE (Powder) Powd er qd for 360 days Refills: 0 Ordered: 15-Apr-2010 CHRISTIANO Gonzalez Start : 22-Oct-2009 End : 15-Apr-2010 Inactive ciclesonide 0.05 mg/actuat m etered dose nasal spray (20 sources) Start: 02-16-2011 End: 04-08-2011 Start: 02-16-2011 End: 04-08-2011 OMNARIS, 50MCG/ACT (Nasal Vigil spension) 2 (two) Puff(s) once daily for 0 days Quantity: 1 {Suspension} Refills: 0 Ordered: 08-Apr-2011 Janelle Go RN Start : 16-Feb-2011 End : 08-Apr-2011 Inactive ciprofloxacin 500 mg oral ta blet (20 sources) Quinolone Antimicrobial Start: 09-12-2019 End: 09-12-2019 Start: 02-01-2018 End: 02-08-2018 take 1 tablet by mouth twice daily Cipro 500 MG Oral Tablet 1 Tablet bid for 7 days Quantity: 14 {Tablet} Refills: 0 Ordered: 01-Feb-2018 Cherelle Blankenship CNP Start : 01-Feb-2018 End : 08-Feb-2018 Inactive Start: 04-07-2016 End: 04-14-2016 Start: 12-01-2010 End: 12-11-2010 24 hr clarithromycin 500 mg extended release oral tablet (20 sources) Macrolide Antimicrobial Start: 12-26-2012 End: 01-05-2013 Start: 12-26-2012 End: 01-05-2013 take 2 tablets by mouth once daily BIAXIN XL PAC, 500MG (Oral Tablet Extended Release 24 Hour) 2 (two) Tablet ER 24HR daily for 10 days Quantity: 20 {Tablet_ER_24HR} Refills: 0 Ordered: 26-Dec-2012 Cherelle Blankenship CNP Start : 26-Dec-2012 End : 05-Jan-2013 Inactive Start: 12-26-2012 End: 01-05-2013 take 2 tablets by mouth once daily BIAXIN XL PAC, 500MG (Oral Tablet Extended Release 24 Hour) 2 (two) Tablet ER 24HR daily for 10 days Quantity: 20 {Tablet_ER_24HR} Refills: 0 Ordered: 26-Dec-2012 Cherelle Blankenship CNP Start : 26-Dec-2012 End : 05-Jan-2013 Inactive clonazePAM 1 mg oral tablet (20 sources) Benzodiazepine Start: 08-21-2020 End: 09-13-2023 take 1 tablet by mouth twice daily as needed Clonazepam 1 mg tablet Discontinued 1 mg PO TWICE A DAY as needed August 21, 2020 12:00am September 13, 2023 8:25am Comment on above: Dr.Kristin Fisher clotrimazole 10 mg oral lozenge (20 sources) Azole Antifungal Start: 07-24-2015 End: 08-03-2015 codeine phosphate 2 mg/ml / guaiFENesin 20 mg/ml oral solution (20 sources) Opioid Agonist Start: 08-08-2015 End: 02-14-2016 Start: 08-08-2015 End: 02-14-2016 Cheratussin AC 100-10 MG/5ML Oral Syrup 1 Teaspoon(s) q8 hrs prn cough for 0 days Quantity: 8 {Ounce(s)} Refills: 0 Ordered: 14-Feb-2016 Janelle Go RN Start : 08-Aug-2015 End : 14-Feb-2016 Inactive cyclobenzaprine hydrochlorid e 10 mg oral tablet (20 sources) Muscle Relaxant Start: 08-15-2015 End: 02-14-2016 Start: 04-08-2011 End: 09-09-2011 Start: 04-08-2011 End: 09-09-2011 take 1 tablet by mouth once daily at bedtime FLEXERIL, 10MG (Oral Tablet) 1 (one) Tablet QHS / HS for 0 days Quantity: 30 {Tablet} Refills: 1 Ordered: 09-Sep-2011 Janelle Go RN Start : 08-Apr-2011 End : 09-Sep-2011 Inactive Comment on above: hold for sedation - no operating [employer] or driving Cymbalta 20mg daily (6 sources) Cymbalta 20mg da summer Inactive Cymbalta 20mg da summer Active Deplin (18 sources) Start: 10-22-2009 End: 10-22-2009 DEPLIN, 7.5MG (Oral Tablet) (13 sources) Start: 10-22-2009 End: 10-22-2009 take 1 tablet by mouth once daily DEPLIN, 7.5MG (Oral Tablet) 1 (one) Tablet Daily for 0 days Quantity: 30 {Tablet} Refills: 3 Ordered: 22-Oct-2009 Cyndy Krishnamurthy RN Start : 22-Oct-2009 End : 22-Oct-2009 Discontinued Comments: gave coupon Comment on above: gave coupon dicyclomine hydrochloride 20 mg oral tablet (20 sources) Anticholinergic Start: 08-30-2019 End: 09-12-2019 docosahexaenoic acid 120 mg / eicosapentaenoic acid 180 mg oral capsule (17 sources) Start: 04-05-2015 End: 06-17-2017 Start: 04-05-2015 End: 06-17-2017 take 1 capsule by mouth once daily [place] 3 1000 MG Oral Capsule 1 (one) Capsule qd for 30 days Refills: 0 Ordered: 17-Jun-2017 No Mills RN Start : 05-Apr-2015 End : 17-Jun-2017 Inactive DULoxetine 20 mg delayed release oral capsule (20 sources) Serotonin and Norepinephrine Reuptake Inhibitor Start: 07-24-2019 End: 08-21-2020 take 1 capsule by mouth twice daily Duloxetine (Cymbalta) 20 mg capsule,delayed release(DR/EC) Discontinued 20 mg PO TWICE A DAY July 24, 2019 12:00am August 21, 2020 1:33pm Start: 06-13-2010 End: 06-13-2010 Start: 06-13-2010 End: 06-13-2010 Start: 06-13-2010 End: 06-13-2010 CYMBALTA, 30MG (Oral Capsule Delayed Release Particles) 1 (one) Capsule DR Part daily with the 60 mg to total 90 for 0 days Quantity: 30 {Capsule_DR_Part} Refills: 6 Ordered: 13-Jun-2010 Christianne Bundy MD Start : 13-Jun-2010 End : 13-Jun-2010 Discontinued Start: 06-13-2010 End: 06-13-2010 CYMBALTA, 60MG (Oral Capsule Delayed Release Particles) 1 (one) Capsule DR Part qd for 0 days Quantity: 30 {Capsule_DR_Part} Refills: 3 Ordered: 13-Jun-2010 Christianne Bundy MD Start : 13-Jun-2010 End : 13-Jun-2010 Discontinued [id number] 0.3 ml EPINEPHrine 1 mg/ml auto-injector (20 sources) alpha-Adrenergic Agonist, beta-Adrenergic Agonist, Catecholamine Start: 07-21-2019 Start: 08-26-2016 EpiPen 2-Keith 0 .3 MG/0.3ML Injection Solution Auto-injector 1 (one) Soln Auto-inj Soln Auto-inj x1 prn for breathign difficulty from reaction for 0 days Quantity: 1 {Packet} Refills: 0 Ordered: 26-Aug-2016 Lisa Ziegler DO, DO, Kathleen Start : 26-Aug-2016 Active Start: 08-26-2016 EPIPEN 2-KEITH 0 .3 MG/0.3ML SOAJ x1 for breathing difficulty from reaction EPINEPHRINE [id number] Marge Paul 21 day ethinyl estradiol 0.0 54670 mg/hr / etonogestrel 0.005 mg/hr vaginal system (20 sources) Progestin, Estrogen End: 04-08-2011 ethinyl estradiol 0.035 mg / norethindrone 1 mg oral tablet (20 sources) Estrogen End: 02-04-2009 End: 02-04-2009 End: 02-04-2009 take 1 tablet by mouth once daily NECON 1/35 (28), 35-1MCG-MG (PO Tab) 1 qd for 0 days Refills: 0 Ordered: 04-Feb-2009 Janelle Go RN End : 04-Feb-2009 Inactive 24 hr etodolac 400 mg extended release oral tablet (20 sources) Nonsteroidal Anti-inflammatory Drug Start: 07-02-2008 End: 08-06-2008 Start: 07-02-2008 End: 08-06-2008 take 2 tablets by mouth once daily LODINE XL, 400MG (Oral Tablet Extended Release 24 Hour) 2 (two) Tablet ER 24HR Daily for 0 days Quantity: 20 {Tablet_ER_24HR} Refills: 0 Ordered: 02-Jul-2008 Es Preciado Start : 02-Jul-2008 End : 06-Aug-2008 Inactive 12 hr fexofenadine hydrochloride 60 mg / pseudoephedrine hydrochloride 120 mg extended release oral tablet (20 sources) alpha-Adrenergic Agonist, Histamine-1 Receptor Antagonist Start: 03-15-2007 End: 05-06-2007 Start: 03-15-2007 End: 05-06-2007 take 60-120 mg by mouth twice daily ISABELA-D 12 HOUR, 60-120MG (Oral Tablet Extended Release 12 Hour) 1 (one) Tablet ER 12HR Twice daily for 0 days Refills: 0 Ordered: 15-Mar-2007 Galina Muir Start : 15-Mar-2007 End : 06-May-2007 Inactive fish oil (2 sources) Start: 04-05-2015 FISH OIL 1000 MG CAPS One cap daily OMEGA-3 FATTY ACIDS [id number] Margecarson Paul fluconazole 150 mg oral tablet (9 sources) Azole Antifungal Start: 03-21-2019 End: 07-24-2019 Fluconazole 150 mg tablet Discontinued 150 mg PO .COMPLEX 2 0 March 21, 2019 1:00am July 24, 2019 8:02am 150 mg PO take one po now and repeat in 3 days FLUoxetine 10 mg oral capsule (20 sources) Serotonin Reuptake Inhibitor Start: 01-21-2018 End: 02-01-2018 FLUoxetine 25 mg / OLANZapine 3 mg oral capsule (20 sources) Atypical Antipsychotic, Serotonin Reuptake Inhibitor Start: 08-07-2010 End: 12-01-2010 Start: 08-07-2010 End: 12-01-2010 take 1 capsule by mouth once daily in the evening SYMBYAX, 3-25MG (Oral Capsule) 1 Capsule qd in pm for 0 days Quantity: 21 {Capsule} Refills: 0 Ordered: 01-Dec-2010 Janelle Go RN Start : 07-Aug-2010 End : 01-Dec-2010 Inactive guanFACINE 1 mg oral tablet (20 sources) Central alpha-2 Adrenergic Agonist End: 05-06-2007 12 hr hyoscyamine sulfate 0. 375 mg extended release oral tablet (20 sources) Start: 10-22-2009 End: 05-20-2010 lactobacillus rhamnosus gg [id number] unt oral capsule (20 sources) Start: 06-25-2010 End: 07-25-2010 Start: 06-25-2010 End: 07-25-2010 take 1 capsule by mouth twice daily CULTURELLE, 10B CELL (Oral Capsule) 1 Capsule bid for 0 days Quantity: 30 {Capsule} Refills: 0 Ordered: 25-Jul-2010 No Mills RN Start : 25-Jun-2010 End : 25-Jul-2010 Inactive Mecon (13 sources) Mecon 1 uad Inac tive meloxicam 7.5 mg oral tablet (20 sources) Nonsteroidal Anti-inflammatory Drug Start: 03-14-2010 End: 05-20-2010 metaxalone 800 mg oral tablet (20 sources) Start: 06-26-2013 End: 06-26-2013 Comment on above: do not take with alc ohol metroNIDAZOLE 0.01 mg/mg topical gel (20 sources) Nitroimidazole Antimicrobial Start: 08-12-2021 End: 08-19-2021 Metronidazole (Metrogel) 1 % gel Discontinued 1 NMA TOPICAL AT BEDTIME 60 7 0 August 12, 2021 12:00am August 18, 2021 12:00am August 19, 2021 12:03am Start: 08-12-2021 End: 08-19-2021 Metronidazole (Metrogel) 1 % gel Discontinued 1 APPLIC TOPICAL AT BEDTIME 60 7 August 11, 2021 11:00pm August 18, 2021 11:03pm Start: 09-07-2019 End: 09-17-2019 mometasone furoate 0.05 mg/a ctuat metered dose nasal spray (20 sources) Corticosteroid Start: 06-18-2010 End: 12-01-2010 Start: 06-18-2010 End: 12-01-2010 NASONEX, 50MCG/ACT (Nasal Vigil spension) 2 (two) Suspension Daily for 0 days Quantity: 1 {Suspension} Refills: 1 Ordered: 01-Dec-2010 Janelle Go RN Start : 18-Jun-2010 End : 01-Dec-2010 Inactive naproxen 250 mg oral tablet (20 sources) Nonsteroidal Anti-inflammatory Drug Start: 01-20-2023 Start: 02-22-2019 End: 07-24-2019 Naproxen 500 mg tablet Disco ntinued 500 mg PO 2 to 3 times per day as needed for pain 60 2 February 22, 2019 12:00am July 24, 2019 8:03am administer with food or milk Start: 02-07-2019 End: 07-24-2019 take 250-500 mg by mouth every eight hours as needed for pain Naproxen 250 MG tablet Discontinued 250 - 500 mg PO EVERY 8 HOURS NEEDED as needed for MILD PAIN 30 February 07, 2019 12:00am July 24, 2019 8:03am Start: 11-16-2018 End: 02-22-2019 take 1 tablet by mouth every twelve hours as needed for pain Naproxen 500 MG tablet Discontinued 500 mg PO Q12H as needed for Pain Score 1-02/09January 31, 2019 10:01am February 22, 2019 10:58am administer with food or milk Start: 04-23-2015 End: 05-14-2015 Comment on above: Medication taken as needed. NORETHINDRONE, 0.35MG (Oral Tablet) (20 sources) Start: 01-05-2014 End: 05-14-2015 Start: 06-26-2013 End: 01-05-2014 Start: 06-26-2013 End: 05-14-2015 take 1 tablet by mouth once daily NORETHINDRONE, 0.35MG (Oral Tablet) 1 (one) Tablet qd for 30 days Refills: 0 Ordered: 14-May-2015 Isabel Guillen LPN Start : 05-Jan-2014 End : 14-May-2015 Discontinued nystatin 532140 unt/ml oral suspension (20 sources) Polyene Antifungal Start: 07-08-2015 End: 07-18-2015 Start: 07-08-2015 End: 07-18-2015 take 4-6 mL by mouth four times daily NYSTATIN, [id number]/ML (Mouth/Throat Suspension) 4-6 Milliliter qid for 10 days Refills: 0 Ordered: 08-Jul-2015 Cherelle Blankenship CNP Start : 08-Jul-2015 End : 18-Jul-2015 Inactive olopatadine 1 mg/ml ophthalm ic solution (20 sources) Histamine-1 Receptor Inhibitor Start: 11-08-2014 End: 04-05-2015 Start: 11-08-2014 End: 04-05-2015 take 1 drop(s) into the eye(s) twice daily PATANOL, 0.1% (Ophthalmic Solution) 1 (one) drops drops bid for 0 days Quantity: 1 {Bottle} Refills: 0 Ordered: 05-Apr-2015 Janelle Go RN Start : 08-Nov-2014 End : 05-Apr-2015 Inactive omega-3 acid ethyl esters (shelter) 1000 mg oral capsule (7 sources) Start: 04-05-2015 End: 06-17-2017 take 1 capsule by mouth once daily [place] 3 1000 MG Oral Capsule 1 (one) Capsule qd for 30 days Refills: 0 Ordered: 17-Jun-2017 No Mills LPN Start : 05-Apr-2015 End : 17-Jun-2017 Inactive omega-3 fatty acids-fish oil (7 sources) Start: 04-05-2015 End: 06-17-2017 Acvly-2x-Uci-Epa-Fish Oil (5 sources) Start: 01-31-2019 End: 07-24-2019 Tiijd-4n-Hoc-Epa-Fish Oil Discontinued 1 EACH PO DAILY January 31, 2019 9:57am July 24, 2019 8:03am Start: 01-31-2019 End: 07-24-2019 Wkjwy-2p-Icr-Epa-Fish Oil Di scontinued 1 EACH PO DAILY January 30, 2019 11:00pm July 24, 2019 7:03am Start: 01-31-2019 End: 07-24-2019 Yzmwj-9f-Yno-Epa-Fish Oil Di scontinued 1 EACH PO DAILY January 31, 2019 12:00am July 24, 2019 8:03am Ntvvu-5g-Tdx-Epa-Fish Oil 1 EACH capsule,delayed release(DR/EC) (4 sources) Start: 01-31-2019 End: 07-24-2019 Rvhpx-8f-Kwy-Epa-Fish Oil 1 EACH capsule,delayed release(DR/EC) Discontinued 1 NMA PO DAILY January 31, 2019 12:00am July 24, 2019 8:03am supplement Start: 01-31-2019 End: 07-24-2019 Spsda-0l-Flc-Epa-Fish Oil 1 EACH capsule,delayed release(DR/EC) Discontinued 1 NMA PO DAILY January 31, 2019 12:00am July 24, 2019 8:03am omeprazole 20 mg delayed rel ease oral capsule (20 sources) Proton Pump Inhibitor Start: 05-04-2006 End: 03-15-2007 Start: 05-04-2006 End: 03-15-2007 PRILOSEC, 20MG (Oral Capsule Delayed Release) Capsule DR for 0 days Refills: 0 Ordered: 04-May-2006 Galina Muir Start : 04-May-2006 End : 15-Mar-2007 Inactive ondansetron 8 mg disintegrat ing oral tablet (20 sources) Serotonin-3 Receptor Antagonist Start: 03-14-2019 End: 07-21-2019 Start: 06-10-2018 End: 07-21-2019 Start: 06-10-2018 End: 07-21-2019 take 1 tablet by mouth once as needed, then take 8 tablets by mouth as needed Zofran 8 MG Oral Tablet 1 (one) Tablet every 8 hoours prn N/V for 0 days Quantity: 10 {Tablet} Refills: 0 Ordered: 21-Jul-2019 Lisa Ziegler DO Ming Lisa LECHUGA Start : 10-Jun-2018 End : 21-Jul-2019 Inactive Start: 07-08-2015 End: 06-17-2017 pantoprazole 40 mg delayed release oral tablet (20 sources) Proton Pump Inhibitor Start: 08-12-2009 End: 09-02-2009 PARoxetine hydrochloride 40 mg oral tablet (20 sources) Serotonin Reuptake Inhibitor Start: 12-03-2016 End: 06-17-2017 prazosin 1 mg oral capsule (20 sources) alpha-Adrenergic Matt Start: 07-24-2019 End: 08-21-2020 take 1 capsule by mouth at bedtime Prazosin 1 mg capsule Discontinued 1 mg PO AT BEDTIME July 24, 2019 12:00am August 21, 2020 1:33pm Comment on above: Dr.kristin gibson predniSONE 20 mg oral tablet (20 sources) Corticosteroid Start: 09-11-2022 End: 01-14-2023 Start: 12-02-2020 End: 04-03-2021 Start: 02-25-2017 End: 03-04-2017 Start: 08-08-2015 End: 08-12-2015 Start: 07-24-2015 End: 08-01-2015 pregabalin 50 mg oral capsul e (20 sources) Start: 05-20-2006 End: 03-15-2007 promethazine hydrochloride 2 5 mg oral tablet (20 sources) Phenothiazine Start: 11-08-2014 End: 04-05-2015 Start: 02-01-2009 End: 04-15-2010 Start: 02-01-2009 End: 04-15-2010 take 1 tablet by mouth every six hours as needed for nausea PHENERGAN, 25MG (Oral Tablet) 1 (one) Tablet q6hrs prn for nausea for 0 days Refills: 0 Ordered: 01-Feb-2009 Carlos PACHECO CHRISTIANO Start : 01-Feb-2009 End : 15-Apr-2010 Discontinued Comments: This order discontinued per [facility]. Comment on above: This order discontin ued per [facility]. ten QUEtiapine 50 mg oral tablet (20 sources) Atypical Antipsychotic Start: 08-28-2016 End: 06-17-2017 sulfamethoxazole 800 mg / trimethoprim 160 mg oral tablet (20 sources) Dihydrofolate Reductase Inhibitor Antibacterial, Sulfonamide Antimicrobial Start: 03-16-2019 End: 03-22-2019 Sulfamethoxazole-Trime thoprim 800-160 mg tablet Discontinued 1 {tbl} PO TWICE A DAY 10 March 16, 2019 1:00am March 20, 2019 1:00am March 22, 2019 1:07am Start: 03-16-2019 End: 03-22-2019 take 1 tablet by mouth twice daily Sulfamethoxazole-Trimethoprim Discontinu ed 1 TABLET PO TWICE A DAY 02 04March 16, 2019 12:00am March 22, 2019 12:07am Start: 03-02-2016 End: 03-09-2016 Start: 03-02-2016 End: 03-09-2016 take 1 tablet by mouth twice daily Bactrim DS 800-160 MG Oral Tablet 1 (one ) Tablet bid for 7 days Quantity: 14 {Tablet} Refills: 0 Ordered: 02-Mar-2016 Krzysztof PAULACherelle Start : 02-Mar-2016 End : 09-Mar-2016 Inactive tiZANidine 4 mg oral tablet (20 sources) Central alpha-2 Adrenergic Agonist Start: 09-11-2022 Start: 07-01-2010 End: 07-25-2010 traMADol hydrochloride 50 mg oral tablet (20 sources) Opioid Agonist Start: 08-15-2015 End: 02-14-2016 Comment on above: thirty traZODone hydrochloride 100 mg oral tablet (20 sources) Serotonin Reuptake Inhibitor Start: 07-28-2015 End: 08-12-2021 take 2 tablets by mouth at bedtime Trazodone 100 MG tablet Discontinued 200 mg PO AT BEDTIME July 28, 2015 12:00am August 12, 2021 8:24am Start: 07-28-2015 End: 08-12-2021 take 200 mg by mouth at bedtime Trazodone Discontinued 200 MG PO AT BEDTIME July 27, 2015 11:00pm August 12, 2021 7:24am Start: 04-09-2015 take 1 tablet by michelle th at bedtime Trazodone 100 mg tablet Active 100 mg PO AT BEDTIME August 12, 2021 8:23am Complies with drug therapy triamcinolone acetonide 0.05 5 mg/actuat metered dose nasal spray (20 sources) Corticosteroid Start: 06-08-2008 End: 08-06-2008 Start: 06-08-2008 End: 08-06-2008 Start: 06-08-2008 End: 08-06-2008 NASACORT AQ, 55MCG/ACT (Nasa l Aerosol Solution) 2 (two) Aerosol Soln Daily for 0 days Refills: 0 Ordered: 08-Jun-2008 Es Preciado Start : 08-Jun-2008 End : 06-Aug-2008 Inactive valACYclovir 1000 mg oral ta blet (20 sources) Herpesvirus Nucleoside Analog DNA Polymerase Inhibitor, Herpes Simplex Virus Nucleoside Analog DNA Polymerase Inhibitor, Herpes Zoster Virus Nucleoside Analog DNA Polymerase Inhibitor Start: 11-22-2009 End: 12-01-2010 Start: 11-22-2009 End: 12-01-2010 take 2 tablets by mouth twice daily VALTREX, 1GM (Oral Tablet) 2 (two) Tablet Twice daily for 0 days Quantity: 4 {Tablet} Refills: 2 Ordered: 01-Dec-2010 Janelle Go RN Start : 22-Nov-2009 End : 01-Dec-2010 Inactive divalproex sodium 250 mg delayed release oral tablet (20 sources) Mood Stabilizer, Anti-epileptic Agent Start: 05-10-2012 End: 06-09-2012 Start: 05-10-2012 End: 06-09-2012 take 8 tablets by mouth in the morning DEPAKOTE, 250MG (Oral Tablet Delayed Release) 1 (one) Tablet DR 2 am 1pm for 30 days Refills: 0 Ordered: 10-May-2012 Lisa Ziegler DO, DO, Kathleen Start : 10-May-2012 End : 09-Jun-2012 Inactive (18 sources) Problems Active Problems Problem Classification Problem Date Documented Date Episodic/Chronic Abdominal pain (20 sources) Abdominal discomfort; Translations: [Generalized abdominal pain] Onset: 0 Resolved: 0 03-18-2015 Episodic Comment on above: general, on cipro bu t no UTI, elevated WBC 11.5 some free fluid in [place] no stone -- listenin g to history myself seems to be lil more MS in [place] to me -- but lots of findings of ct scan that are important to be addressed Acute bronchitis (20 sources) Acute bronchitis due to other specified organisms; Translations: [Acute bronchitis] Resolved: 0 05-10-2012 Episodic Allergic reactions (20 sources) Dermatitis; Translations: [Eczema] Resolved: 3 10-06-2012 Episodic Comment on above: cont otc cortisone p rn Anxiety disorders (20 sources) Anxiety; Translations: [Acute stress disorder] Onset: 2 Resolved: 3 06-10-2018 Chronic Comment on above: stable Chronic kidney disease (11 sources) Chronic kidney disease Chronic obstructive pulmonary disease and bronchiectasis (1 source) Emphysema, unspecified; Translations: [Emphysema, unspecified] Onset: 5 Chronic Chronic obstructive pulmonary disease and bronchiectasis (20 sources) Chronic obstructive pulmonary disease and bronchiectasis Conditions associated with dizziness or vertigo (20 sources) Dizziness; Translations: [Dizziness] Resolved: 9 10-18-2008 Episodic Diabetes mellitus without complication (8 sources) Hyperglycemia; Translations: [Hyperglycemia] 03-13-2022 Episodic Diseases of white blood cells (20 sources) Leukocytosis; Translations: [Leukopenia] 06-10-2018 Chronic Disorders of lipid metabolism (20 sources) Hypercholesterolemia; Translations: [Hypertriglyceridemia] 06-10-2018 Chronic Essential hypertension (9 sources) Hypertensive disorder; Translations: [Essential (primary) hypertension] 08-21-2020 Chronic Fever of unknown origin (20 sources) Fever with chills; Translations: [Fever] Resolved: 6 02-14-2016 Episodic Fluid and electrolyte disorders (20 sources) Dehydration; Translations: [Dehydration] Resolved: 0 08-28-2016 Episodic Genitourinary symptoms and ill-defined conditions (20 sources) Dysuria; Translations: [Blood in urine] Resolved: 1 06-10-2018 Episodic Headache; including migraine (20 sources) Headache; Translations: [Headache] Resolved: 6 12-04-2016 Episodic Comment on above: Tension headaches no w improvedBUt says the amitryptyline does nothing for her. So will DC Discussed lifestyle, asking pt to self reflect of drinks and habits that are contributing to headache-.BP at home WNL.-.Pt is sdrinking 12 packs of mountain dew everyday.Pt was advised to graadually cut down on mountain dew and eventually dont take it at all.Could be the reason of headaches, BP, anxiety.-. Use Alleve 1 tablet twice daily as needed for headache.-. Decrease trazodone from 200 mg to 100 mg.-.Get blood work ordered by Dr Ziegler CBC, lipid profile, CMP, Microalbvumin, UA.7.Pt has stopped OCP . All labs [id number] female with past medical history of tension headaches, hyperglyceridemia, anxiety, presents with tension headaches was started on amitryptyline 10 mg.Headaches have improved significantly with only one episode of headache since she was here last. Patient is currently on trazodone 200 mg once a day, Buspirone 30 mg twice a day,valium twice a day. Patient drinks a 12 pack of Mountain Dew every day and is trying to go down on it.Is only drinking when she is off from work. Patient had a recent visit in January 2015 with similar complaints of headache, nausea and vomiting.Blood pressure was 200/ 94 and rechecked was 140/ 76. BP at home have ranged fronm 107-133/58-80. Patient has stopped oral contraceptive pills. stress driven?- pt h ates her work , the people -- its so bad she is physiclaly sick with nausea Immunizations and screening for infectious disease (20 sources) Need for prophylactic vaccination and inoculation against influenza; Translations: [Exposure to communicable disease] Resolved: 1 05-10-2012 Episodic Influenza (20 sources) Influenza; Translations: [Flu] Resolved: 9 04-12-2015 Episodic Intestinal infection (20 sources) Infectious colitis, enteritis, and gastroenteritis; Translations: [Gastroenteritis] 06-10-2018 Episodic Malaise and fatigue (20 sources) Fatigue; Translations: [Fatigue] Resolved: 9 05-10-2012 Episodic Comment on above: lab normal // wakes up tired does snore -- but also 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 Menstrual disorders (20 sources) Dysmenorrhea; Translations: [Irregular periods] Resolved: 9 03-26-2015 Chronic Comment on above: ERAS- same day plann ed, declined iud, lysteda, plan tvh bs possible LAVH Mood disorders (9 sources) Premenstrual dysphoric disorder; Translations: [Premenstrual dysphoric disorder] 08-08-2020 Chronic Mycoses (20 sources) Candidiasis of mouth; Translations: [Tinea corporis] Resolved: 6 12-04-2016 Episodic Nausea and vomiting (20 sources) Nausea and vomiting; Translations: [Nausea] Resolved: 1 06-10-2018 Episodic Comment on above: mild Noninfectious gastroenteritis (20 sources) Gastroenteritis; Translations: [Other and unspecified noninfectious gastroenteritis and colitis] Resolved: 3 10-06-2012 Episodic Comment on above: exacerbation of coli tis, treated by Cailin x 8 weeks with budesonide as it helped. She is in contact with Cailin, to take pepto bismal with immodium. She will get work excuse today and will bring in FMLA papers Nutritional deficiencies (20 sources) Vitamin D deficiency; Translations: [Vitamin D deficiency] 06-10-2018 Chronic Other circulatory disease (20 sources) Elevated blood-pressure reading without diagnosis of hypertension; Translations: [Elevated blood-pressure reading without diagnosis of hypertension] Resolved: 6 02-14-2016 Episodic Other connective tissue disease (20 sources) Myalgia; Translations: [Muscle pain] 06-10-2018 Episodic Other connective tissue disease (16 sources) Tendinitis; Translations: [Iliotibial band tendonitis, left] Resolved: 6 12-04-2016 Episodic Other connective tissue disease (10 sources) Impingement syndrome of right shoulder region; Translations: [Impingement syndrome of right shoulder] 04-03-2021 Episodic Other connective tissue disease (10 sources) Tendonitis of right shoulder; Translations: [Tendinitis of right shoulder] 04-03-2021 Episodic Other connective tissue disease (1 source) Pain of left heel; Translations: [Pain of left heel] 01-20-2023 Episodic Other connective tissue disease (1 source) Plantar fasciitis of left foot; Translations: [Plantar fasciitis, left] 01-21-2023 Episodic Other female genital disorders (20 sources) Lesion of ovary; Translations: [Lesion of ovary] 06-10-2018 Episodic Other gastrointestinal disorders (20 sources) Irritable bowel syndrome; Translations: [Irritable bowel syndrome] 06-10-2018 Chronic Comment on above: stable diarrhea Other gastrointestinal disorders (1 source) Irritable bowel syndrome without diarrhea; Translations: [Irritable bowel syndrome, unspecified] Onset: 5 Chronic Other gastrointestinal disorders (20 sources) Diarrhea; Translations: [Diarrhea] Onset: 0 Resolved: 7 03-04-2017 Episodic Comment on above: ? IBS - vs viral awaiting cultures tr eating as if gastroenteritis ? post infectious IB S has had in past, rec ent on dicyclomine and lomotil, not really helping, will try cipro and treat as if gasterorenteritis, KF added flagyl. Still with dehydration secondary to ongoing diarrhea. Has leukocytes in urine Other gastrointestinal disorders (1 source) Diarrhea, unspecified; Translations: [Diarrhea, unspecified] Onset: 5 Episodic Other inflammatory condition of skin (20 sources) Itching of eye; Translations: [Itchy eyes] 06-10-2018 Episodic Other liver diseases (20 sources) Large liver; Translations: [Hepatomegaly, not elsewhere classified] 06-10-2018 Episodic Comment on above: borderline in size b ased on addendum --lft normal - discussed her stature prob contrib to larger liver that is borderline by meausurements but also lifestyle chg wiht wt loss and decresased etoh is nec as well Other non-traumatic joint disorders (20 sources) Knee pain; Translations: [Knee pain] 06-10-2018 Episodic Comment on above: Knee pain most likel y secondary to osteoarthritis. Patient wants to try Aleve. We will do x-rays if pain doesn't get any better.Pt is c/o pain in both knees especially when she has been on her feet for the whole day. 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 Denies having any swelling of the knee. Is also complaining of stiffness in the knees when she wakes up in the morning. Denies having any trauma. Other non-traumatic joint disorders (20 sources) Shoulder pain; Translations: [Acute pain of right shoulder] Resolved: 4 01-05-2014 Episodic Other non-traumatic joint disorders (10 sources) Pain in unspecified knee; Translations: [Knee pain] 04-03-2021 Episodic Other non-traumatic joint disorders (2 sources) Hip pain; Translations: [Acute pain of left hip] 09-11-2022 Episodic Other non-traumatic joint disorders (3 sources) Pain in right shoulder; Translations: [Acute pain of right shoulder] 09-11-2022 Episodic Other nutritional; endocrine; and metabolic disorders (20 sources) Body mass index 30+ - obesity; Translations: [BMI 31.0-31.9,adult] Resolved: 9 06-10-2018 Chronic Other nutritional; endocrine; and metabolic disorders (6 sources) Body mass index 25-29 - overweight; Translations: [BMI 29.0-29.9,adult] 12-22-2019 Chronic Other nutritional; endocrine; and metabolic disorders (9 sources) Body mass index 25-29 - overweight; Translations: [BMI 29.0-29.9,adult] 07-19-2020 Episodic Other nutritional; endocrine; and metabolic disorders (9 sources) Overweight in adulthood with body mass index of 25 or more but less than 30; Translations: [BMI 29.0-29.9,adult] 04-03-2021 Episodic Other screening for suspected conditions (not mental disorders or infectious disease) (18 sources) Computed tomography result abnormal; Translations: [Abnormal CAT scan] 07-19-2020 Chronic Other screening for suspected conditions (not mental disorders or infectious disease) (20 sources) Thyroid hormone tests abnormal; Translations: [Abnormal TSH] Onset: 5 06-10-2018 Episodic Other skin disorders (20 sources) Corns and callosities Episodic Other skin disorders (11 sources) Sebaceous cyst Episodic Other upper respiratory disease (11 sources) Allergic rhinitis due to other allergen Chronic Other upper respiratory disease (20 sources) Allergic rhinitis; Translations: [Allergic rhinitis due to allergen] Resolved: 9 06-10-2018 Chronic Comment on above: stble - otc prn Other upper respiratory infections (20 sources) Acute sinusitis; Translations: [Acute pharyngitis] Resolved: 3 03-19-2015 Episodic Ovarian cyst (20 sources) Follicular cyst of ovary; Translations: [Cyst of ovary] Onset: 7 01-25-2017 Episodic Poisoning by other medications and drugs (20 sources) Adverse reaction to drug; Translations: [Medication side effect] 06-10-2018 Episodic Comment on above: on depakote Residual codes; unclassified (10 sources) Tobacco user; Translations: [Tobacco use] 06-10-2018 Chronic Residual codes; unclassified (20 sources) Tobacco use Episodic Residual codes; unclassified (20 sources) Family history of diabetes mellitus Episodic Residual codes; unclassified (7 sources) Increased body mass index; Translations: [BMI 29.0-29.9,adult] 06-10-2018 Episodic Residual codes; unclassified (13 sources) Computed tomography result abnormal; Translations: [Abnormal CAT scan] 06-10-2018 Episodic Residual codes; unclassified (13 sources) Needs influenza immunization; Translations: [Need for prophylactic vaccination and inoculation against influenza] 06-10-2018 Episodic Residual codes; unclassified (18 sources) Influenza vaccination declined; Translations: [Influenza vaccination declined (Renamed from Refused influenza vaccine)] 07-19-2020 Episodic Residual codes; unclassified (20 sources) Tobacco use and exposure - finding; Translations: [Tobacco use] 07-19-2020 Episodic Residual codes; unclassified (2 sources) History of clinical finding in subject; Translations: [Personal history of other specified conditions] Episodic Residual codes; unclassified (9 sources) Past history of procedure; Translations: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 [facility] Comment on above: Order Comment: N Performed By: #### L 3410.2400, L500.4050, L100.0100, L800.1280, L3300.1200, L803.2200, L5500.0550, L501.6710, L3300.0960, L501.9520, L3300.1800, L504.2610, L503.6550, L101.9900, L3100.5440, L3100.3425, L3410.1000 #### [facility] [address] [place], [address] (155) BETA GLOBULIN 1.1 g/dL Normal 0.7-1.3 [facility] Comment on above: Order Comment: N Performed By: #### L 3410.2400, L500.4050, L100.0100, L800.1280, L3300.1200, L803.2200, L5500.0550, L501.6710, L3300.0960, L501.9520, L3300.1800, L504.2610, L503.6550, L101.9900, L3100.5440, L3100.3425, L3410.1000 #### [facility] [address] [place], [place], [id number] (747) GAMMA GLOBULIN 1.2 g/dL Normal 0.4-1.8 [facility] Comment on above: Order Comment: N Performed By: #### L 3410.2400, L500.4050, L100.0100, L800.1280, L3300.1200, L803.2200, L5500.0550, L501.6710, L3300.0960, L501.9520, L3300.1800, L504.2610, L503.6550, L101.9900, L3100.5440, L3100.3425, L3410.1000 #### [facility] [address] [place], [place], [id number] (960) Globulin (S) [Mass/Vol] 3.4 g/dL Normal 2.2-3.9 [facility] Comment on above: Order Comment: N Performed By: #### L 3410.2400, L500.4050, L100.0100, L800.1280, L3300.1200, L803.2200, L5500.0550, L501.6710, L3300.0960, L501.9520, L3300.1800, L504.2610, L503.6550, L101.9900, L3100.5440, L3100.3425, L3410.1000 #### [facility] [address] [place], [place], [id number] (742) RON RESULT,S Comment Normal . [facility] Comment on above: Order Comment: N Result Comment: No m onoclonality detected. Performed By: #### L 3410.2400, L500.4050, L100.0100, L800.1280, L3300.1200, L803.2200, L5500.0550, L501.6710, L3300.0960, L501.9520, L3300.1800, L504.2610, L503.6550, L101.9900, L3100.5440, L3100.3425, L3410.1000 #### [facility] [address] [place], [address] IMMUNOGLOB A QN 212 mg/dL Normal 87-352 [facility] Comment on above: Order Comment: N Performed By: #### L 3410.2400, L500.4050, L100.0100, L800.1280, L3300.1200, L803.2200, L5500.0550, L501.6710, L3300.0960, L501.9520, L3300.1800, L504.2610, L503.6550, L101.9900, L3100.5440, L3100.3425, L3410.1000 #### [facility] [address] [place], [address] IMMUNOGLOB G QN 1168 mg/dL Normal 586-1602 [facility] Comment on above: Order Comment: N Performed By: #### L 3410.2400, L500.4050, L100.0100, L800.1280, L3300.1200, L803.2200, L5500.0550, L501.6710, L3300.0960, L501.9520, L3300.1800, L504.2610, L503.6550, L101.9900, L3100.5440, L3100.3425, L3410.1000 #### [facility] [address] [place], [address] IMMUNOGLOB M QN 103 mg/dL Normal 26-217 [facility] Comment on above: Order Comment: N Performed By: #### L 3410.2400, L500.4050, L100.0100, L800.1280, L3300.1200, L803.2200, L5500.0550, L501.6710, L3300.0960, L501.9520, L3300.1800, L504.2610, L503.6550, L101.9900, L3100.5440, L3100.3425, L3410.1000 #### [facility] [address] [place], [address] M-Keagan Not Observed Normal Not Observed [facility] Comment on above: Order Comment: N Performed By: #### L 3410.2400, L500.4050, L100.0100, L800.1280, L3300.1200, L803.2200, L5500.0550, L501.6710, L3300.0960, L501.9520, L3300.1800, L504.2610, L503.6550, L101.9900, L3100.5440, L3100.3425, L3410.1000 #### [facility] [address] [place], [address] NOTE: Comment Normal . [facility] Comment on above: Order Comment: N Result Comment: Prot ein electrophoresis scan will follow via computer, mail, or nuclear instructor delivery. Performed By: #### L 3410.2400, L500.4050, L100.0100, L800.1280, L3300.1200, L803.2200, L5500.0550, L501.6710, L3300.0960, L501.9520, L3300.1800, L504.2610, L503.6550, L101.9900, L3100.5440, L3100.3425, L3410.1000 #### [facility] [address] [place], [address] Protein [Mass/Vol] 7.3 g/dL Normal 6.0-8.5 [facility] Comment on above: Order Comment: N Performed By: #### L 3410.2400, L500.4050, L100.0100, L800.1280, L3300.1200, L803.2200, L5500.0550, L501.6710, L3300.0960, L501.9520, L3300.1800, L504.2610, L503.6550, L101.9900, L3100.5440, L3100.3425, L3410.1000 #### [facility] [address] [place], [place], [id number] CBC W/Diff, Automatedon 10-0 -2024 Absolute Lymph 3.03 X10 3/uL Normal 0.83-4.51 [facility] Comment on above: Performed By: #### L 3410.2400, L500.4050, L100.0100, L800.1280, L3300.1200, L803.2200, L5500.0550, L501.6710, L3300.0960, L501.9520, L3300.1800, L504.2610, L503.6550, L101.9900, L3100.5440, L3100.3425, L3410.1000 #### [facility] [address] [place], [address] Absolute Neut 9.4 X10 3/uL High 2.0-7.7 [facility] Comment on above: Performed By: #### L 3410.2400, L500.4050, L100.0100, L800.1280, L3300.1200, L803.2200, L5500.0550, L501.6710, L3300.0960, L501.9520, L3300.1800, L504.2610, L503.6550, L101.9900, L3100.5440, L3100.3425, L3410.1000 #### [facility] [address] [place], [place], [id number] Basophils/100 WBC (Bld) 0.3 % Normal 0-1 [facility] Comment on above: Performed By: #### L 3410.2400, L500.4050, L100.0100, L800.1280, L3300.1200, L803.2200, L5500.0550, L501.6710, L3300.0960, L501.9520, L3300.1800, L504.2610, L503.6550, L101.9900, L3100.5440, L3100.3425, L3410.1000 #### [facility] [address] [place], [address] (297) Eosinophils/100 WBC (Bld) 1.9 % Normal 0-5 [facility] Comment on above: Performed By: #### L 3410.2400, L500.4050, L100.0100, L800.1280, L3300.1200, L803.2200, L5500.0550, L501.6710, L3300.0960, L501.9520, L3300.1800, L504.2610, L503.6550, L101.9900, L3100.5440, L3100.3425, L3410.1000 #### [facility] [address] [place], [address] Erythrocyte distribution width (RBC) [Ratio] 14.3 % Normal 11.6-14.6 [facility] Comment on above: Performed By: #### L 3410.2400, L500.4050, L100.0100, L800.1280, L3300.1200, L803.2200, L5500.0550, L501.6710, L3300.0960, L501.9520, L3300.1800, L504.2610, L503.6550, L101.9900, L3100.5440, L3100.3425, L3410.1000 #### [facility] [address] [place], [address] Hematocrit (Bld) [Volume fraction] 44.1 % Normal 37-47 [facility] Comment on above: Performed By: #### L 3410.2400, L500.4050, L100.0100, L800.1280, L3300.1200, L803.2200, L5500.0550, L501.6710, L3300.0960, L501.9520, L3300.1800, L504.2610, L503.6550, L101.9900, L3100.5440, L3100.3425, L3410.1000 #### [facility] [address] [place], [place], [id number] (091) Hemoglobin (Bld) [Mass/Vol] 15.2 g/dL High 12.0-15.0 [facility] Comment on above: Performed By: #### L 3410.2400, L500.4050, L100.0100, L800.1280, L3300.1200, L803.2200, L5500.0550, L501.6710, L3300.0960, L501.9520, L3300.1800, L504.2610, L503.6550, L101.9900, L3100.5440, L3100.3425, L3410.1000 #### [facility] [address] [place], [address] IG% 0.200 Normal 0.0-0.9 [facility] Comment on above: Result Comment: IG% - Immature Granulocytes (promyelocytes, myelocytes and metamyelocytes) > 1% indicates that a LEFT SHIFT is Present. Performed By: #### L 3410.2400, L500.4050, L100.0100, L800.1280, L3300.1200, L803.2200, L5500.0550, L501.6710, L3300.0960, L501.9520, L3300.1800, L504.2610, L503.6550, L101.9900, L3100.5440, L3100.3425, L3410.1000 #### [facility] [address] [place], [address] (754) Lymphocytes/100 WBC (Bld) 22.7 % Normal 19-41 [facility] Comment on above: Performed By: #### L 3410.2400, L500.4050, L100.0100, L800.1280, L3300.1200, L803.2200, L5500.0550, L501.6710, L3300.0960, L501.9520, L3300.1800, L504.2610, L503.6550, L101.9900, L3100.5440, L3100.3425, L3410.1000 #### [facility] [address] [place], [address] MCH (RBC) [Entitic mass] 29.8 pg Normal 27.0-32.0 [facility] Comment on above: Performed By: #### L 3410.2400, L500.4050, L100.0100, L800.1280, L3300.1200, L803.2200, L5500.0550, L501.6710, L3300.0960, L501.9520, L3300.1800, L504.2610, L503.6550, L101.9900, L3100.5440, L3100.3425, L3410.1000 #### [facility] [address] [place], [address] MCHC (RBC) [Mass/Vol] 34.5 g/dL Normal 32-36 [facility] Comment on above: Performed By: #### L 3410.2400, L500.4050, L100.0100, L800.1280, L3300.1200, L803.2200, L5500.0550, L501.6710, L3300.0960, L501.9520, L3300.1800, L504.2610, L503.6550, L101.9900, L3100.5440, L3100.3425, L3410.1000 #### [facility] [address] [place], [address] MCV (RBC) [Entitic vol] 86.5 fL Normal 81-99 [facility] Comment on above: Performed By: #### L 3410.2400, L500.4050, L100.0100, L800.1280, L3300.1200, L803.2200, L5500.0550, L501.6710, L3300.0960, L501.9520, L3300.1800, L504.2610, L503.6550, L101.9900, L3100.5440, L3100.3425, L3410.1000 #### [facility] [address] [place], [address] Monocytes/100 WBC (Bld) 4.1 % Normal 0-10 [facility] Comment on above: Performed By: #### L 3410.2400, L500.4050, L100.0100, L800.1280, L3300.1200, L803.2200, L5500.0550, L501.6710, L3300.0960, L501.9520, L3300.1800, L504.2610, L503.6550, L101.9900, L3100.5440, L3100.3425, L3410.1000 #### [facility] [address] [place], [address] Neutrophils/100 WBC (Bld) 70.8 % High 47-70 [facility] Comment on above: Performed By: #### L 3410.2400, L500.4050, L100.0100, L800.1280, L3300.1200, L803.2200, L5500.0550, L501.6710, L3300.0960, L501.9520, L3300.1800, L504.2610, L503.6550, L101.9900, L3100.5440, L3100.3425, L3410.1000 #### [facility] [address] [place], [address] Nucleated RBC (Bld) [#/Vol] 0 10*3/uL Normal 0-5 [facility] Comment on above: Performed By: #### L 3410.2400, L500.4050, L100.0100, L800.1280, L3300.1200, L803.2200, L5500.0550, L501.6710, L3300.0960, L501.9520, L3300.1800, L504.2610, L503.6550, L101.9900, L3100.5440, L3100.3425, L3410.1000 #### [facility] [address] [place], [address] Platelet mean volume (Bld) [Entitic vol] 10.8 fL Normal 6.2-12.0 [facility] Comment on above: Performed By: #### L 3410.2400, L500.4050, L100.0100, L800.1280, L3300.1200, L803.2200, L5500.0550, L501.6710, L3300.0960, L501.9520, L3300.1800, L504.2610, L503.6550, L101.9900, L3100.5440, L3100.3425, L3410.1000 #### [facility] [address] [place], [address] Platelets (Bld) [#/Vol] 313 10*3/uL Normal 150-450 [facility] Comment on above: Performed By: #### L 3410.2400, L500.4050, L100.0100, L800.1280, L3300.1200, L803.2200, L5500.0550, L501.6710, L3300.0960, L501.9520, L3300.1800, L504.2610, L503.6550, L101.9900, L3100.5440, L3100.3425, L3410.1000 #### [facility] [address] [place], [address] RBC (Bld) [#/Vol] 5.10 10*6/uL Normal 4.2-5.4 [facility] Comment on above: Performed By: #### L 3410.2400, L500.4050, L100.0100, L800.1280, L3300.1200, L803.2200, L5500.0550, L501.6710, L3300.0960, L501.9520, L3300.1800, L504.2610, L503.6550, L101.9900, L3100.5440, L3100.3425, L3410.1000 #### [facility] [address] [place], [place], [id number] (303) RDW SD 45.7 fl High 35.1-43.9 [facility] Comment on above: Performed By: #### L 3410.2400, L500.4050, L100.0100, L800.1280, L3300.1200, L803.2200, L5500.0550, L501.6710, L3300.0960, L501.9520, L3300.1800, L504.2610, L503.6550, L101.9900, L3100.5440, L3100.3425, L3410.1000 #### [facility] [address] [place], [place], [id number] WBC (Bld) [#/Vol] 13.3 10*3/uL High 4.4-11.0 [facility] Comment on above: Performed By: #### L 3410.2400, L500.4050, L100.0100, L800.1280, L3300.1200, L803.2200, L5500.0550, L501.6710, L3300.0960, L501.9520, L3300.1800, L504.2610, L503.6550, L101.9900, L3100.5440, L3100.3425, L3410.1000 #### [facility] [address] [place], [place], [id number] CRPon 02-06-2025 C-REACTIVE PROT < 3.00 Normal 0.0-3.0 [facility] Comment on above: Performed By: #### L 3410.2400, L500.4050, L100.0100, L800.1280, L3300.1200, L803.2200, L5500.0550, L501.6710, L3300.0960, L501.9520, L3300.1800, L504.2610, L503.6550, L101.9900, L3100.5440, L3100.3425, L3410.1000 #### [facility] [address] [place], [place], [id number] Comprehensive Metabolic Prof scon 02-06-2025 Albumin [Mass/Vol] 4.8 g/dL Normal 3.5-5.0 [facility] Comment on above: Performed By: #### L 3410.2400, L500.4050, L100.0100, L800.1280, L3300.1200, L803.2200, L5500.0550, L501.6710, L3300.0960, L501.9520, L3300.1800, L504.2610, L503.6550, L101.9900, L3100.5440, L3100.3425, L3410.1000 #### [facility] [address] [place], [place], [id number] Albumin/Globulin [Mass ratio] 1.6 {ratio} Normal 0.9-2.4 [facility] Comment on above: Performed By: #### L 3410.2400, L500.4050, L100.0100, L800.1280, L3300.1200, L803.2200, L5500.0550, L501.6710, L3300.0960, L501.9520, L3300.1800, L504.2610, L503.6550, L101.9900, L3100.5440, L3100.3425, L3410.1000 #### [facility] [address] [place], [place], [id number] ALK PHOS 51 U/L Normal 35-104 [facility] Comment on above: Performed By: #### L 3410.2400, L500.4050, L100.0100, L800.1280, L3300.1200, L803.2200, L5500.0550, L501.6710, L3300.0960, L501.9520, L3300.1800, L504.2610, L503.6550, L101.9900, L3100.5440, L3100.3425, L3410.1000 #### [facility] [address] [place], [address] ALT [Catalytic activity/Vol] 11 U/L Normal <=34 [facility] Comment on above: Performed By: #### L 3410.2400, L500.4050, L100.0100, L800.1280, L3300.1200, L803.2200, L5500.0550, L501.6710, L3300.0960, L501.9520, L3300.1800, L504.2610, L503.6550, L101.9900, L3100.5440, L3100.3425, L3410.1000 #### [facility] [address] [place], [place], [id number] AST [Catalytic activity/Vol] 17 U/L Normal <=31 [facility] Comment on above: Performed By: #### L 3410.2400, L500.4050, L100.0100, L800.1280, L3300.1200, L803.2200, L5500.0550, L501.6710, L3300.0960, L501.9520, L3300.1800, L504.2610, L503.6550, L101.9900, L3100.5440, L3100.3425, L3410.1000 #### [facility] [address] [place], [address] Bilirubin [Mass/Vol] 0.28 mg/dL Normal 0.00-1.30 [facility] Comment on above: Performed By: #### L 3410.2400, L500.4050, L100.0100, L800.1280, L3300.1200, L803.2200, L5500.0550, L501.6710, L3300.0960, L501.9520, L3300.1800, L504.2610, L503.6550, L101.9900, L3100.5440, L3100.3425, L3410.1000 #### [facility] [address] [place], [place], [id number] (245) BUN/CRE 9.6 RATIO Low 10-20 [facility] Comment on above: Performed By: #### L 3410.2400, L500.4050, L100.0100, L800.1280, L3300.1200, L803.2200, L5500.0550, L501.6710, L3300.0960, L501.9520, L3300.1800, L504.2610, L503.6550, L101.9900, L3100.5440, L3100.3425, L3410.1000 #### [facility] [address] [place], [place], [phone] Calcium [Mass/Vol] 9.3 mg/dL Normal 7.6-11.0 [facility] Comment on above: Performed By: #### L 3410.2400, L500.4050, L100.0100, L800.1280, L3300.1200, L803.2200, L5500.0550, L501.6710, L3300.0960, L501.9520, L3300.1800, L504.2610, L503.6550, L101.9900, L3100.5440, L3100.3425, L3410.1000 #### [facility] [address] [place], [place], [id number] [phone] Chloride [Moles/Vol] 101 mmol/L Normal 98-108 [facility] Comment on above: Performed By: #### L 3410.2400, L500.4050, L100.0100, L800.1280, L3300.1200, L803.2200, L5500.0550, L501.6710, L3300.0960, L501.9520, L3300.1800, L504.2610, L503.6550, L101.9900, L3100.5440, L3100.3425, L3410.1000 #### [facility] [address] [facility] [address] [place], [place], [id number] CO2 [Moles/Vol] 22.9 mmol/L Normal 21.0-32.0 [facility] Comment on above: Performed By: #### L 3410.2400, L500.4050, L100.0100, L800.1280, L3300.1200, L803.2200, L5500.0550, L501.6710, L3300.0960, L501.9520, L3300.1800, L504.2610, L503.6550, L101.9900, L3100.5440, L3100.3425, L3410.1000 #### [facility] [address] [place] [place], [address] Creatinine [Mass/Vol] 0.79 mg/dL Normal 0.70-1.20 [facility] Comment on above: Performed By: #### L 3410.2400, L500.4050, L100.0100, L800.1280, L3300.1200, L803.2200, L5500.0550, L501.6710, L3300.0960, L501.9520, L3300.1800, L504.2610, L503.6550, L101.9900, L3100.5440, L3100.3425, L3410.1000 #### [facility] [address] [place], [address] GAP 13 Normal 5-15 [facility] Comment on above: Performed By: #### L 3410.2400, L500.4050, L100.0100, L800.1280, L3300.1200, L803.2200, L5500.0550, L501.6710, L3300.0960, L501.9520, L3300.1800, L504.2610, L503.6550, L101.9900, L3100.5440, L3100.3425, L3410.1000 #### [facility] [address] [place], [place], [id number] (870) GFR/1.73 sq M.predicted among non-blacks MDRD (S/P/Bld) [Vol rate/Area] 89 mL/min/{1.73_m2} Normal >60 [facility] Comment on above: Result Comment: mL/m in/1.73m2 CKD-EPI Creatinine Equation (2020) Performed By: #### L 3410.2400, L500.4050, L100.0100, L800.1280, L3300.1200, L803.2200, L5500.0550, L501.6710, L3300.0960, L501.9520, L3300.1800, L504.2610, L503.6550, L101.9900, L3100.5440, L3100.3425, L3410.1000 #### [facility] [address] [place], [address] Globulin (S) [Mass/Vol] 3.1 g/dL Normal 2.2-4.2 [facility] Comment on above: Performed By: #### L 3410.2400, L500.4050, L100.0100, L800.1280, L3300.1200, L803.2200, L5500.0550, L501.6710, L3300.0960, L501.9520, L3300.1800, L504.2610, L503.6550, L101.9900, L3100.5440, L3100.3425, L3410.1000 #### [facility] [address] [place], [place], [id number] (116) Glucose [Mass/Vol] 101 mg/dL High 70-99 [facility] Comment on above: Performed By: #### L 3410.2400, L500.4050, L100.0100, L800.1280, L3300.1200, L803.2200, L5500.0550, L501.6710, L3300.0960, L501.9520, L3300.1800, L504.2610, L503.6550, L101.9900, L3100.5440, L3100.3425, L3410.1000 #### [facility] [address] [place], [place], [id number] [phone] Potassium [Moles/Vol] 3.8 mmol/L Normal 3.3-5.1 [facility] Comment on above: Performed By: #### L 3410.2400, L500.4050, L100.0100, L800.1280, L3300.1200, L803.2200, L5500.0550, L501.6710, L3300.0960, L501.9520, L3300.1800, L504.2610, L503.6550, L101.9900, L3100.5440, L3100.3425, L3410.1000 #### [facility] [address] [place], [place], [id number] [phone] Sodium [Moles/Vol] 137 mmol/L Normal 133-145 [facility] Comment on above: Performed By: #### L 3410.2400, L500.4050, L100.0100, L800.1280, L3300.1200, L803.2200, L5500.0550, L501.6710, L3300.0960, L501.9520, L3300.1800, L504.2610, L503.6550, L101.9900, L3100.5440, L3100.3425, L3410.1000 #### [facility] [address] [facility] [id number] T PROT 7.8 g/dL Normal 5.9-8.4 [facility] Comment on above: Performed By: #### L 3410.2400, L500.4050, L100.0100, L800.1280, L3300.1200, L803.2200, L5500.0550, L501.6710, L3300.0960, L501.9520, L3300.1800, L504.2610, L503.6550, L101.9900, L3100.5440, L3100.3425, L3410.1000 #### [facility] [address] [place], [address] Urea nitrogen [Mass/Vol] 8 mg/dL Normal 4-19 [facility] Comment on above: Performed By: #### L 3410.2400, L500.4050, L100.0100, L800.1280, L3300.1200, L803.2200, L5500.0550, L501.6710, L3300.0960, L501.9520, L3300.1800, L504.2610, L503.6550, L101.9900, L3100.5440, L3100.3425, L3410.1000 #### [facility] [address] [place], [place], [id number] Erythrocyte Sed Rateon 02-06 SED RATE 6 mm/hr Normal 0-30 [facility] Comment on above: Performed By: #### L 3410.2400, L500.4050, L100.0100, L800.1280, L3300.1200, L803.2200, L5500.0550, L501.6710, L3300.0960, L501.9520, L3300.1800, L504.2610, L503.6550, L101.9900, L3100.5440, L3100.3425, L3410.1000 #### [facility] [address] [place], [place], [id number] Ferritinon 02-06-2025 Ferritin [Mass/Vol] 103 ng/mL Normal 22-378 [facility] Comment on above: Performed By: #### L 3410.2400, L500.4050, L100.0100, L800.1280, L3300.1200, L803.2200, L5500.0550, L501.6710, L3300.0960, L501.9520, L3300.1800, L504.2610, L503.6550, L101.9900, L3100.5440, L3100.3425, L3410.1000 #### [facility] [address] [place], [place], [id number] Gastroenterology Visit Repor ton 02-06-2025 Gastroenterology Visit Report [facility] [address] [place] [address] OFFICE VISIT Date of Service: 02/06/25 MR#: [id number] Acct: [id number] Name: GALINA LATHAM Rep #: [id number] : 1970 Provider: Aly Gotti DO Age/Sex: 54/F Location: [facility] Status: Signed Intake Vital Signs 09/18/24 07:59 Height 5 ft 7 in Intake Visit Reasons: Irritable bowel syndrome Allergies fluoxetine (From Prozac) Allergy (Verified 09/18/24 08:01) Diarrhea venom-honey bee (bee venom (honey bee)) Allergy (Verified 09/18/24 08:01) Anaphylaxis Penicillins Adverse Reaction (Verified 09/18/24 08:01) Vomiting Medications ???Medication ???Instructions ???Recorded ???Confirmed ???Type multivitamin 1 ea PO DAILY supplement 01/31/19 02/06/25 History buspirone 30 mg tablet 30 mg PO BID 07/24/19 02/06/25 His tory fenofibric acid (choline) 135 mg 135 mg PO DAILY 08/21/20 02/06/25 History capsule,delayed release (Trilipix) cholecalciferol (vitamin D3) 125 125 mcg PO DAILY 08/12/21 02/06/25 History mcg (5,000 unit) capsule trazodone 100 mg tablet 100 mg PO QHS 08/12/21 02/06/25 Hi story calcium carbonate 600 mg PO QDAY 09/18/24 02/06/25 H istory diazepam 5 mg tablet 5 mg PO QHS PRN 09/18/24 02/06/25 History magnesium 250 mg tablet 250 mg PO QDAY 09/18/24 02/06/25 H istory sertraline 100 mg tablet (Zoloft) 100 mg PO QDAY 09/18/24 02/06/25 History PFSH Medical History Hyperlipidemia Anxiety and depression Vitamin D deficiency History of frequent headaches History of marijuana use Leukocytopenia IBS (irritable bowel syndrome) Hypertension Hepatomegaly Tobacco use Surgical History Hx of right breast biopsy History of total vaginal hysterectomy (TVH) History of carpal tunnel surgery History of dilation and curettage Hx laparoscopic cholecystectomy Family History Mother Hypertension Father Suicide Uncle Suicide Social History Smoking Status: Heavy Smoker (>10/day) alcohol intake: never substance use type: does not use caffeine: Yes what type of physical activity do you participate in: walking seatbelt use: always do you feel safe at home: Yes additional social history: 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 *BGI established 10.7.25 pt reports her symptoms have mostly cleared up, but was having increased diarrhea, gas/bloating, and HB. Pt reports she began taking a pre and probiotic recently and this helped her symptoms. States that Dr Ziegler recently ordered an xray of her stomach and told her she had moderate build up of stool, and prescribed her Lizness; states she is still waiting on insurance to approve medication. Has continued loose stool. Pt reports her last colonoscopy was April 2024 and had an EGD about 30 years ago around the time she had her gallbladder removed. ROS Const Constitutional: No fatigue, fever(s) or weight change ENT ENT: No difficulty swallowing Gastro GI: Positive for bloating, heartburn and excessive flatus; No abdominal pain, belching, change in bowel habits, change in stool character, coffee ground emesis, constipation, cramping, diarrhea, difficulty swallowing, feeling full early, incontinent of stools, Vomiting blood/hematemesis, Blood in stool, loose stools, Black,tarry stools, nausea/dyspepsia, pain with swallowing, vomiting or other Musc Musculoskeletal: Positive for back pain and stiffness; No joint pain Skin Skin: No yellowing of the eye or itchy eyes Psych Psychiatric: Positive for anxiety and Positive for depression Endo Endocrine: No fatigue or weight change Aller/Imm Allergy/Immunologic: No itchy eyes Edgar/Lymp Hematologic/Lymphatic: No easy bleeding or easy bruising Assessment and Plan Assessment and Plan (1) IBS (irritable bowel syndrome): Status: Acute Plan: Assessment * Primary Diagnosis:???Irritable Bowel Syndrome with Mixed Bowel Habits (IBS-M), likely exacerbated by Post-Traumatic Stress Disorder (PTSD). * Justification:???The patient's presentation of alternating constipation and diarrhea, along with bloating, is a classic feature of IBS-M. The literature strongly supports an association between psychological stress, trauma, and the development of functional GI disorders, including IBS. The patient's GI symptoms following the onset of PTSD support this brain-gut axis connection. * Secondary Diagnosis:???Constipation confirmed by KUB. * Status of Probiotic:???Her subjective report of improvement with a probiotic is consistent with studies showing that probiotics can help regulate britney (more content not included)... Normal [facility] LDHon 02-06-2025 LDH 191 U/L Normal 84-246 [facility] Comment on above: Order Comment: 1 Performed By: #### L 3410.2400, L500.4050, L100.0100, L800.1280, L3300.1200, L803.2200, L5500.0550, L501.6710, L3300.0960, L501.9520, L3300.1800, L504.2610, L503.6550, L101.9900, L3100.5440, L3100.3425, L3410.1000 #### [facility] [address] [place], [address] Thyroid Stim Hormone (TSH)on 02-06-2025 TSH 1.780 uIU/mL Normal 0.300-4.20 0 [facility] Comment on above: Performed By: #### L 3410.2400, L500.4050, L100.0100, L800.1280, L3300.1200, L803.2200, L5500.0550, L501.6710, L3300.0960, L501.9520, L3300.1800, L504.2610, L503.6550, L101.9900, L3100.5440, L3100.3425, L3410.1000 #### [facility] [address] [facility] [place], [place], [id number] Low Dose CT Lung Screeningon 01-29-[address] Lung Screening [facility] Imaging Services [address] [place], [place] [address] Low Dose CT Lung Screening MR#: [id number] Acct: [id number] Name: GALINA LATHAM Rep #: [id number] : 1970 F 54 From: Marcello Lockett MD PCP: Dr. Lisa Ziegler, Status: REG CLI Study: Low Dose CT Lung Screening Date of Exam: 01/29 Exam# [id number] Ordering Dr: Lisa Ziegler DO PROCEDURE: LOW DOSE CT LUNG SCREENING 01/29/2025 REASON FOR EXAM: LOW-DOSE COMPUTED TOMOGRAPHY (LDCT) OF CHEST WITHOUT CONTRAST FOR TECHNIQUE: Procedure Code: CTLUNGSCREEN Modality: CT Procedure: LOW DOSE CT LUNG SCREENING Coronal and Sagittal reconstruction series were provided. One or more dose reduction techniques were used (e.g., Automated exposure control, adjustment of the mA and/or kV according to patient size, use of iterative reconstruction technique). REFERENCE LINK: [facility] Lung-RADS RADIATION DOSE SUMMARY: CTDlvol: 4.02 mGy DLP: 141.95 mGycm COMPARISON: Low-dose lung screen, 01/29/2024. FINDINGS: Lower neck:The thyroid gland is normal. There is no supraclavicular lymphadenopathy. Mediastinum:There is a stable right paratracheal lymph node. Heart and thoracic aorta:The heart size is normal. There is no pericardial effusion. There is minimal calcific vascular disease of the coronary arteries and thoracic aorta. Esophagus:Normal. Upper Abdomen:The gallbladder is surgically absent. There is a coarse calcification in the left thyroid gland. Chest wall:The soft tissues of the chest wall appear unremarkable. There is no axillary lymphadenopathy. There are findings of DISH in the mid and lower thoracic spine. Lungs, airways and pleura: There is mild upper lobe predominant centrilobular emphysema. There is a stable pleural-based soft tissue density nodule in the superior segment of the lower lobe of the right lung (image 100). There are no new pulmonary nodules. There are no pleural effusions. CT/Low Dose CT Lung Screening IMPRESSION: 1. Stable nodule in the lower lobe of the right lung. There are no new pulmonary nodules. 2. Emphysema. 3. Minimal calcific vascular disease. Lung-RADS Category: 2 S: Benign behavior. Other Significant Findings: Emphysema. Calcific vascular disease. Recommendation: Follow-up low-dose chest CT in 12 months. Reading Location: [place] [address] CC: Dr. Lisa Ziegler DO Metal Bonding Worker: Signed Normal [facility] Abdomen Single Viewon 2024 Abdomen Single View [facility] Imaging Services [address] [place] [address] Abdomen Single View MR#: [id number] Acct: [id number] Name: GALINA LATHAM Rep #: [id number] : 1970 F 54 From: Chance gutierrez MD PCP: Dr. Lisa Ziegler DO Status: REG CLI Study: Abdomen Single View Date of Exam: 01/18/25 Exam# [id number] Ordering Dr: Lisa Ziegler DO PROCEDURE: ABDOMEN SINGLE VIEW 01/18/2025 REASON FOR EXAM: ABDOMINAL PAIN TECHNIQUE: Procedure Code: RADABD Modality: DX Procedure: ABDOMEN SINGLE VIEW COMPARISON: None FINDINGS: The bowel gas pattern is nonobstructive but nonspecific. There is no dilated loop of bowel. Lcuh-sn-kpqhirtn amount of stool is present in the colon. Lung bases are clear. Osseous structures are normal. Surgical clips are present in the right upper quadrant. SI joints are symmetrical. Degenerative changes of both hips present. RAD/Abdomen Single View IMPRESSION: Tlhowqrv-kc-uwjef amount of stool in the colon. No bowel obstruction. Degenerative changes of both hips. Reading Location: [facility] CC: Dr. Lisa Ziegler, Metal Bonding Worker: Signed Normal [facility] Amphetamine detection with 1 000 ng/mL as cutoffon 01-18-2025 Amphetamines Screen method >1000 ng/mL Ql (U) Negative < 200 ng/mL [facility] No Panel Informationon 01-18 Urine Buprenorphine Qualitative Negative < 200 ng/mL [facility] Urine Oxycodone Screen Negative < 100 ng/mL [facility] Quantitative urine opiates m easurementon 01-18-2025 Opiates Ql (U) Negative < 300 ng/mL [facility] Screening urine fentanyl donna surementon 01-18-2025 fentaNYL Screen Ql (U) Negative <5 ng/mL [facility] Comment on above: CONFIRMATORY TESTING FOR ALL POSITIVE URINE DRUG SCREENRESULTS WILL ONLY BE SENT OUT UPON PHYSICIAN ORDER. Araseli Pro Urine Drug Screen methods provide only preliminaryanalytical test results. A more specific alternate chemicalmethod must be used in order to obtain a confirmedanalytical result. Gas chromatography/mass spectrometery(GC/MS) is the preferred confirmatory method. Clinicalconsideration and professional judgement should be appliedto any drug of abuse test result, particularly whenpreliminary positive results are used. Urine TCA testing must be ordered separately. Use test mnemonic: UTCA Urine Drug Screen (VISTA)on 01-18-2025 AMPHETAMINES Negative Normal <1000 ng/mL [facility] Comment on above: Order Comment: UNK Performed By: #### L 3410.2400, L500.4050, L100.0100, L800.1280, L3300.1200, L803.2200, L5500.0550, L501.6710, L3300.0960, L501.9520, L3300.1800, L504.2610, L503.6550, L101.9900, L3100.5440, L3100.3425, L3410.1000 #### [facility] [address] [place], [place], [id number] BARBITIURATES Negative Normal < 200 ng/mL [facility] Comment on above: Order Comment: UNK Performed By: #### L 3410.2400, L500.4050, L100.0100, L800.1280, L3300.1200, L803.2200, L5500.0550, L501.6710, L3300.0960, L501.9520, L3300.1800, L504.2610, L503.6550, L101.9900, L3100.5440, L3100.3425, L3410.1000 #### [facility] [address] [place], [place], [id number] BENZODIAZIPINE Positive Normal < 200 ng/mL [facility] Comment on above: Order Comment: UNK Result Comment: If c onfirmation testing is needed, a separate order will be required to send out testing to the reference laboratory. Performed By: #### L 3410.2400, L500.4050, L100.0100, L800.1280, L3300.1200, L803.2200, L5500.0550, L501.6710, L3300.0960, L501.9520, L3300.1800, L504.2610, L503.6550, L101.9900, L3100.5440, L3100.3425, L3410.1000 #### [facility] [address] [place], [place], [id number] BUP Ur Drug Scr Negative Normal < 200 ng/mL [facility] Comment on above: Order Comment: UNK Performed By: #### L 3410.2400, L500.4050, L100.0100, L800.1280, L3300.1200, L803.2200, L5500.0550, L501.6710, L3300.0960, L501.9520, L3300.1800, L504.2610, L503.6550, L101.9900, L3100.5440, L3100.3425, L3410.1000 #### [facility] [address] [place], [place], [id number] COCAINE Negative Normal < 300 ng/mL [facility] Comment on above: Order Comment: UNK Performed By: #### L 3410.2400, L500.4050, L100.0100, L800.1280, L3300.1200, L803.2200, L5500.0550, L501.6710, L3300.0960, L501.9520, L3300.1800, L504.2610, L503.6550, L101.9900, L3100.5440, L3100.3425, L3410.1000 #### [facility] [address] [place], [address] Fentanyl Negative Normal <5 ng/mL [facility] Comment on above: Order Comment: UNK Result Comment: CONF IRMATORY TESTING FOR ALL POSITIVE URINE DRUG SCREEN RESULTS WILL ONLY BE SENT OUT UPON PHYSICIAN ORDER. Araseli Pro Urine Drug Screen methods provide only preliminary analytical test results. A more specific alternate chemical method must be used in order to obtain a confirmed analytical result. Gas chromatography/mass spectrometery (GC/MS) is the preferred confirmatory method. Clinical consideration and professional judgement should be applied to any drug of abuse test result, particularly when preliminary positive results are used. Urine TCA testing must be ordered separately. Use test mnemonic: UTCA Performed By: #### L 3410.2400, L500.4050, L100.0100, L800.1280, L3300.1200, L803.2200, L5500.0550, L501.6710, L3300.0960, L501.9520, L3300.1800, L504.2610, L503.6550, L101.9900, L3100.5440, L3100.3425, L3410.1000 #### [facility] [address] [place], [address] METHADONE Negative Normal < 300 ng/mL [facility] Comment on above: Order Comment: UNK Performed By: #### L 3410.2400, L500.4050, L100.0100, L800.1280, L3300.1200, L803.2200, L5500.0550, L501.6710, L3300.0960, L501.9520, L3300.1800, L504.2610, L503.6550, L101.9900, L3100.5440, L3100.3425, L3410.1000 #### [facility] [address] [place], [address] OPIATES Negative Normal < 300 ng/mL [facility] Comment on above: Order Comment: UNK Performed By: #### L 3410.2400, L500.4050, L100.0100, L800.1280, L3300.1200, L803.2200, L5500.0550, L501.6710, L3300.0960, L501.9520, L3300.1800, L504.2610, L503.6550, L101.9900, L3100.5440, L3100.3425, L3410.1000 #### [facility] [address] [facility] [place], [address] OXYCODONE Negative Normal < 100 ng/mL [facility] Comment on above: Order Comment: UNK Performed By: #### L 3410.2400, L500.4050, L100.0100, L800.1280, L3300.1200, L803.2200, L5500.0550, L501.6710, L3300.0960, L501.9520, L3300.1800, L504.2610, L503.6550, L101.9900, L3100.5440, L3100.3425, L3410.1000 #### [facility] [address] [place], [address] PCP Negative Normal < 25 ng/mL [facility] Comment on above: Order Comment: UNK Performed By: #### L 3410.2400, L500.4050, L100.0100, L800.1280, L3300.1200, L803.2200, L5500.0550, L501.6710, L3300.0960, L501.9520, L3300.1800, L504.2610, L503.6550, L101.9900, L3100.5440, L3100.3425, L3410.1000 #### [facility] [address] [place], [place], [id number] (342) THC Positive Normal < 50 ng/mL [facility] Comment on above: Order Comment: UNK Result Comment: If c onfirmation testing is needed, a separate order will be required to send out testing to the reference laboratory. Performed By: #### L 3410.2400, L500.4050, L100.0100, L800.1280, L3300.1200, L803.2200, L5500.0550, L501.6710, L3300.0960, L501.9520, L3300.1800, L504.2610, L503.6550, L101.9900, L3100.5440, L3100.3425, L3410.1000 #### [facility] [address] [facility] [place], [place], [id number] [phone] Urine benzodiazepine levelon 01-18-2025 Benzodiazepines Ql (U) Positive < 200 ng/mL [facility] Comment on above: If confirmation test ing is needed, a separate order will be required to send out testing to the reference laboratory. Urine cocaine levelon 2024 Cocaine Ql (U) Negative < 300 ng/mL [facility] Urine tkpsj-7-sermujthmcjiap abinol (THC) measurementon 01-18-2025 Cannabinoids Screen Ql (U) Positive < 50 ng/mL [facility] Comment on above: If confirmation test ing is needed, a separate order will be required to send out testing to the reference laboratory. Urine phencyclidine (PCP) de tectionon 01-18-2025 Phencyclidine Ql (U) Negative < 25 ng/mL [facility] Celiac Disease Profileon ENDOMYSIAL IGA Negative Normal Negative [facility] Comment on above: Performed By: #### L 3410.2400, L500.4050, L100.0100, L800.1280, L3300.1200, L803.2200, L5500.0550, L501.6710, L3300.0960, L501.9520, L3300.1800, L504.2610, L503.6550, L101.9900, L3100.5440, L3100.3425, L3410.1000 #### [facility] [address] [place], [address] IMMUNOGLOB A QN 184 mg/dL Normal 87-352 [facility] Comment on above: Result Comment: Perf ormed at: [facility] [id number] [place] De Rinder: Tk Winn PhD, Phone: [phone] Performed By: #### L 3410.2400, L500.4050, L100.0100, L800.1280, L3300.1200, L803.2200, L5500.0550, L501.6710, L3300.0960, L501.9520, L3300.1800, L504.2610, L503.6550, L101.9900, L3100.5440, L3100.3425, L3410.1000 #### [facility] [address] [place], [address] tTG IGA <2 Normal 0-3 [facility] Comment on above: Result Comment: Nega tive 0 - 3 Weak Positive 4 - 10 Positive >10 Tissue Transglutaminase (tTG) has been identified as the endomysial antigen. Studies have demonstr- ated that endomysial IgA antibodies have over 99% specificity for gluten sensitive enteropathy. Performed By: #### L 3410.2400, L500.4050, L100.0100, L800.1280, L3300.1200, L803.2200, L5500.0550, L501.6710, L3300.0960, L501.9520, L3300.1800, L504.2610, L503.6550, L101.9900, L3100.5440, L3100.3425, L3410.1000 #### [facility] [address] [facility] [place], [place], [id number] CRPon 11-22-2024 C-REACTIVE PROT < 3.00 Normal 0.0-3.0 [facility] Comment on above: Performed By: #### L 3410.2400, L500.4050, L100.0100, L800.1280, L3300.1200, L803.2200, L5500.0550, L501.6710, L3300.0960, L501.9520, L3300.1800, L504.2610, L503.6550, L101.9900, L3100.5440, L3100.3425, L3410.1000 #### [facility] [address] [facility] [place], [place], [id number] Serum or plasma C reactive p rotein measurement (mass/volume)Ordered By: Tk Simeon on 11-22-2024 CRP [Mass/Vol] mg/L 0.0-3.0 [facility] Serum or plasma IgA measurem ent (mass/volume)Ordered By: Tk Simeon on 11-22-2024 IgA [Mass/Vol] 184 mg/dL 87-352 [facility] Comment on above: Performed at: [address] [id number] Director: Tk Winn PhD, Phone: [phone] Serum tissue transglutaminas e (tTG) IgA antibody assay (units/volume)Ordered By: Tk Simeon on 11-22-2024 tTG IgA Qn (S) <2 U/mL 0-3 [facility] Comment on above: Negative 0 - 3 Weak Positive 4 - 10 Positive >10 Tissue Transglutaminase (tTG) has been identified as the endomysial antigen. Studies have demonstr- ated that endomysial IgA antibodies have over 99% specificity for gluten sensitive enteropathy. TSH DL <= 0.005 mIU/L QnOrde red By: Tk Simeon on 11-22-2024 TSH Qn 2.360 uIU/mL 0.300-4.20 0 [facility] Thyroid Stim Hormone (TSH)on 11-22-2024 TSH 2.360 uIU/mL Normal 0.300-4.20 0 [facility] Comment on above: Performed By: #### L 3410.2400, L500.4050, L100.0100, L800.1280, L3300.1200, L803.2200, L5500.0550, L501.6710, L3300.0960, L501.9520, L3300.1800, L504.2610, L503.6550, L101.9900, L3100.5440, L3100.3425, L3410.1000 #### [facility] [address] [place], [place], [id number] Offset Machine Operator Office Visit Reporton 09-18-2024 Offset Machine Operator Office Visit Report [facility] [address], [address] [place] [address] OFFICE VISIT Date of Service: 09/18/24 MR#: [id number] Acct: [id number] Name: GALINA LATHAM Rep #: [id number] : 1970 Provider: Dr. 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: No Is patient in pain?: No Allergies fluoxetine (From Prozac) Allergy (Verified 09/18/24 08:01) Diarrhea venom-honey bee (bee venom (honey bee)) Allergy (Verified 09/18/24 08:01) Anaphylaxis Penicillins Adverse Reaction (Verified 09/18/24 08:01) Vomiting Medications ???Medication ???Instructions ???Recorded ???Confirmed ???Type multivitamin 1 ea PO DAILY supplement 01/31/19 09/18/24 History buspirone 30 mg tablet 30 mg PO BID 07/24/19 09/18/24 His tory fenofibric acid (choline) 135 mg 135 mg PO DAILY 08/21/20 09/18/24 History capsule,delayed release (Trilipix) cholecalciferol (vitamin D3) 125 125 mcg PO DAILY 08/12/21 09/18/24 History mcg (5,000 unit) capsule trazodone 100 mg tablet 100 mg PO QHS 08/12/21 09/18/24 Hi story calcium carbonate 600 mg PO QDAY 09/18/24 09/18/24 H istory diazepam 5 mg tablet 5 mg PO QHS PRN 09/18/24 09/18/24 History magnesium 250 mg tablet 250 mg PO QDAY 09/18/24 09/18/24 H istory sertraline 100 mg tablet (Zoloft) 100 mg PO QDAY 09/18/24 09/18/24 History Is last menstrual period known: No Patient : No : No PFSH Medical History Hyperlipidemia Anxiety and depression Vitamin D deficiency History of frequent headaches History of marijuana use Leukocytopenia IBS (irritable bowel syndrome) Hypertension Hepatomegaly Tobacco use Surgical History Hx of right breast biopsy History of total vaginal hysterectomy (TVH) History of carpal tunnel surgery History of dilation and curettage Hx laparoscopic cholecystectomy Family History Mother Hypertension Father Suicide Uncle Suicide Social History Smoking Status: Heavy Smoker (>10/day) alcohol intake: never substance use type: does not use caffeine: Yes what type of physical activity do you participate in: walking seatbelt use: always do you feel safe at home: Yes 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 Last PAP: hyst History of abnormal PAP: Last mammogram: done today History of abnormal mammogram: Colon cancer screening: colonoscopy done last April Other preventative health care screenings: PCP [facility] Female Reproductive History Menopausal Symptoms: No hot flashes, No night sweats, No weight change, No mood changes, No difficulty concentrating, No sleep problems and No change in libido ROS Const Constitutional: Reports as per HPI; Denies fatigue, increased appetite, poor appetite, night sweats, weight gain or weight loss Cardio Card: Denies chest pain Resp Resp: Denies cough or dyspnea GI GI: Reports as per HPI; Denies abdominal pain, bloating, constipation, nausea or vomiting : Reports as per HPI and other; Denies difficulty voiding, dysuria, hematuria, hot flashes, nipple discharge, pelvic pain, prolapse symptoms, urinary frequency, urinary incontinence, urinary urgency, vaginal discharge, vaginal dryness, vaginal odor or vaginal pruritus Skin Skin/Breast: Denies changing lesions, breast mass, breast pain, breast skin changes or nipple discharge Psych Psych: Denies anxiety, change in libido, depression or difficulty concentrating Exam Const General: cooperative, healthy appearing, comfortable, no acute distress, well developed and well groomed HENOH Head: normal to inspection and normocephalic Ears: hearing grossly normal bilaterally and external ears normal Nose: external nose normal Face and sinus: normal facial exam Neck Neck: normal visual inspection, full ROM and no lymphadenopathy Thyroid: thyroid normal Chest Chest palpation inspection: normal inspection of the chest Breast inspection: normal inspection of the breasts and normal inspection of the axillae Breast palpation: normal palpation of the breasts, normal palpation of the axillae and no axillary lymphadenop (more content not included)... Normal [facility] SCRN MAMM (CAD)W/KAMERON BILATo n 09-18-2024 SCRN MAMM (CAD)W/KAMERON BILAT [facility] Imaging Services [address] [place] [address] SCRN MAMM (CAD)W/KAMERON BILAT MR#: [id number] Acct: [id number] Name: GALINA LATHAM Rep #: [id number] : 1970 F 54 From: Debra [place] PCP: Dr. Lisa Ziegler, DO Status: REG CLI Study: SCRN MAMM (CAD)W/KAMERON BILAT Date of Exam: 08/31 01/25 Exam# [id number] Ordering Dr: Katey Elizabeth EXAM: SCRN MAMM (CAD)W/KAMERON BILAT DATE: 09/18/2024 CLINICAL HISTORY: F, Age 54 y/o , SCREENING BREAST CANCER RISK ASSESSMENT: Has not been calculated. TECHNIQUE: Bilateral screening digital breast tomosynthesis with 2D and 3D images. Computer aided detection. COMPARISON: Prior exam(s) dated 09/13/2023 and 08/20/2022. FINDINGS: TISSUE DENSITY: The breast tissue is almost entirely fatty. Bilateral Breast Mammographic Findings: There are no suspicious masses, suspicious clustered microcalcifications, architectural distortion or secondary signs of malignancy identified in either breast. Benign-appearing round calcifications are seen in both breasts. A radiopaque clip is seen in the right breast. The biopsy was benign. Post biopsy site is stable. A stable 2 mm well-circumscribed isodense mass in the superior outer, far posterior aspect of the left breast is noted. BI/SCRN MAMM (CAD)W/KAMERON BILAT IMPRESSION: OVERALL FINAL ASSESSMENT: BIRADS 2 BENIGN FINDING RECOMMENDATION: Routine annual follow-up in 1 Year A letter with findings and recommendations will be mailed to the patient. Reading Location: [id number] CC: Dr. Lisa Zeigler DO; Dr. Katey Elizabeth MD Metal Bonding Worker: Signed Normal [facility] Absolute lymphocyte countOrd ered By: Lisa Ziegler on 05-29-2023 Lymphocytes Auto (Unsp spec) [#/Vol] 3.24 10*3/uL 0.83-4.51 [facility] Automated lymphocyte count a s percentage of total leukocytesOrdered By: Lisa Ziegler on 05-29-2023 Lymphocytes/100 WBC Auto (Unsp spec) 48.0 % 19-41 [facility] Basophil percentageOrdered B y: Lisa Ziegler on 05-29-2023 Basophils/100 WBC (Bld) 0.3 % 0-1 [facility] Bilirubin [Mass/Vol] 0.20 mg/dL 0.20-1.00 [facility] Comment on above: For patients on eltr ombopag therapy, use of Dimension [place] TBIL is not recommended. Chloride [Moles/Vol] 112 mmol/L 98-107 [facility] Cholesterol [Mass/Vol] 148 mg/dL <200 [facility] Comment on above: <200 mg/dL Desirable 200-240 mg/dL Borderline >240 mg/dL High Risk Eosinophils/100 WBC (Bld) 3.1 % 0-5 [facility] Glucose [Mass/Vol] 99 mg/dL 74-106 [facility] Hemoglobin (Bld) [Mass/Vol] 14.9 g/dL 12.0-15.0 [facility] Monocytes/100 WBC (Bld) 7.0 % 0-10 [facility] Neutrophils (Bld) [#/Vol] 2.8 10*3/uL 2.0-7.7 [facility] Neutrophils/100 WBC (Bld) 41.5 % 47-70 [facility] Potassium [Moles/Vol] 4.0 mmol/L 3.5-5.1 [facility] Protein [Mass/Vol] 7.5 g/dL 6.4-8.2 [facility] Sodium [Moles/Vol] 143 mmol/L 136-145 [facility] Triglyceride [Mass/Vol] 117 mg/dL <199 [facility] Comment on above: The drugs N-Acetylcy steine and Metamizole may falsely depress this assay.Serum Triglycerides Reference Interval Normal <150 mg/dL Borderline high 150 - 199 mg/dL High 200 - 499 mg/dL Very High > or = 500 mg/dL WBC (Bld) [#/Vol] 6.8 10*3/uL 4.4-11.0 [facility] Determination of erythrocyte mean corpuscular volume (MCV)Ordered By: Lisa Ziegler on 05-29-2023 MCV (RBC) [Entitic vol] 90.6 fL 81-99 [facility] Erythrocyte distribution wid th ratioOrdered By: Lisa Ziegler on 05-29-2023 Erythrocyte distribution width (RBC) [Ratio] 13.4 % 11.6-14.6 [facility] Erythrocyte distribution wid th standard deviationOrdered By: Lisa Ziegler on 05-29-2023 Erythrocyte distribution width (RBC) [Entitic vol] 45.3 fL 35.1-43.9 [facility] Hematocrit Auto (Bld) [Volum e fraction]Ordered By: Lisa Ziegler on 05-29-2023 Hematocrit (Bld) [Volume fraction] 46.0 % 37-47 [facility] High density lipoprotein (HD L) measurementOrdered By: Lisa Ziegler on 05-29-2023 Cholesterol in HDL (Body fld) [Mass/Vol] 64 mg/dL >40 [facility] Comment on above: The drugs N-Acetylcy steine and Metamizole may falsely depress this assay. Reference Range HDL <40 mg/dL Low HDL Cholesterol HDL >or= 60 mg/dL High HDL Cholesterol Immature granulocytes/100 WB C Auto (Bld)Ordered By: Lisa Ziegler on 05-29-2023 Immature granulocytes/100 WBC (Bld) 0.100 % 0.0-0.9 [facility] Comment on above: IG% - Immature Granu locytes (promyelocytes, myelocytes and metamyelocytes) > 1% indicates that a LEFT SHIFT is Present. Laboratory - Chemistry and C hemistry - challengeOrdered By: Lisa Ziegler on 05-29-2023 Albumin/Globulin [Mass ratio] 1.0 {ratio} 0.9-2.4 [facility] ALP [Catalytic activity/Vol] 41 U/L 45-117 [facility] ALT [Catalytic activity/Vol] 21 U/L 13-56 [facility] CO2 [Moles/Vol] 29.0 mmol/L 21.0-32.0 [facility] Globulin (S) [Mass/Vol] 3.8 g/dL 2.2-4.2 [facility] Urea nitrogen/Creatinine [Mass ratio] 11.6 mg/mg 10-20 [facility] Laboratory - Hematology and Cell countsOrdered By: Lisa Ziegler on 05-29-2023 MCH (RBC) [Entitic mass] 29.3 pg 27.0-32.0 [facility] MCHC (RBC) [Mass/Vol] 32.4 g/dL 32-36 [facility] Nucleated RBC/100 WBC (Bld) [Ratio] 0 % 0-5 [facility] Platelets (Bld) [#/Vol] 313 10*3/uL 150-450 [facility] Low density lipoprotein (LDL ) cholesterol measurementOrdered By: iLsa Ziegler on 05-29-2023 Cholesterol in LDL (Body fld) [Moles/Vol] 61 mg/dL 0-130 [facility] No Panel InformationOrdered By: Lisa Ziegler on 05-29-2023 Estimated GFR (MDRD) Amer 80 mL/min >60 [facility] Comment on above: GFR Calc Estimated GFR (MDRD) Non-Af Amer 66 mL/min >60 [facility] Comment on above: Non- GFR Calc Platelet mean volume José Miguel-Ec ker (Bld) [Entitic vol]Ordered By: Lisa Ziegler on 05-29-2023 Platelet mean volume (Bld) [Entitic vol] 10.3 fL 6.2-12.0 [facility] RBC Auto (Bld) [#/Vol]Ordere d By: Lisa Ziegler on 05-29-2023 RBC (Bld) [#/Vol] 5.08 10*6/uL 4.2-5.4 [facility] Serum or plasma calcium leonard urement (mass/volume)Ordered By: Lisa Ziegler on 05-29-2023 Calcium [Mass/Vol] 9.4 mg/dL 8.5-10.1 [facility] Serum or plasma creatinine m easurement (mass/volume)Ordered By: Lisa Ziegler on 05-29-2023 Creatinine [Mass/Vol] 0.95 mg/dL 0.55-1.02 [facility] Comment on above: The validity of the calculated GFR & GFRAA in patients over 70 years has not been determined. Clinical correlation is essential. Serum or plasma thyroid stim ulating hormone (TSH) measurement (units/volume)Ordered By: Lisa Ziegler on 05-29-2023 TSH Qn 1.84 uIU/mL 0.358-3.74 [facility] Serum or plasma urea nitroge n measurement (mass/volume)Ordered By: Lisa Ziegler on 05-29-2023 Urea nitrogen [Mass/Vol] 11 mg/dL 7-18 [facility] Thin prep Papanicolaou smear with manual screeningOrdered By: Lisa Ziegler on 05-29-2023 Thin prep Papanicolaou smear with manual screening 3.7 g/dL 3.2-5.0 [facility] Thin prep Papanicolaou smear with manual screening 11 U/L 15-37 [facility] Thin prep Papanicolaou smear with manual screening 2 5-15 [facility] Very low density lipoprotein (VLDL) cholesterol measurementOrdered By: Lisa Ziegler on 05-29-2023 Cholesterol in VLDL Calc [Moles/Vol] 23 mg/dL 5-40 [facility] Blood Glucose , Office [phone] By: CHRISTIANO Gonzalez on 01-14-2023 Glucose Glucometer (BldC) [Moles/Vol] 87 1 Normal [facility]; [facility] Work Phone: HgA1C , Office ([phone])Ordere d By: CHRISTIANO Gonzalez on 01-14-2023 HbA1c (Bld) [Mass fraction] 5.6 % Normal 4.6 - 7.1 [facility]; [facility] Work Phone: Blood Glucose , Office [phone])Ordered By: Ruby Do on 09-11-2022 Glucose Glucometer (BldC) [Moles/Vol] 96 1 Normal [facility]; [facility] Work Phone: HgA1C , Office ([phone])Ordere d By: Ruby Do on 09-11-2022 HbA1c (Bld) [Mass fraction] 5.5 % Normal 4.6 - 7.1 [facility]; [facility] Work Phone: CBC W/AUTO DIFF WBC ([phone])O rdered By: Post Graduate Intern on 08-07-2022 Basophils (Bld) [#/Vol] 0.0 10*3/uL Normal 0.0-0.2 [facility]; [facility] Work Phone: Basophils/100 WBC (Bld) 0 % Normal [facility]; [facility] Work Phone: Eosinophils (Bld) [#/Vol] 0.3 10*3/uL Normal 0.0-0.4 [facility]; [facility] Work Phone: Eosinophils/100 WBC (Bld) 3 % Normal [facility]; [facility] Work Phone: Erythrocyte distribution width (RBC) [Ratio] 13.0 % Normal 11.7-15.4 [facility]; [facility] Work Phone: Hematocrit (Bld) [Volume fraction] 45.3 % Normal 34.0-46.6 [facility]; [facility] Work Phone: Hemoglobin (Bld) [Mass/Vol] 15.5 g/dL Normal 11.1-15.9 [facility]; [facility] Work Phone: Immature granulocytes (Bld) [#/Vol] 0.0 10*3/uL Normal 0.0-0.1 [facility]; [facility] Work Phone: Immature granulocytes/100 WBC (Bld) 0 % Normal [facility]; [facility] Work Phone: Lymphocytes (Bld) [#/Vol] 3.6 10*3/uL Abnormal 0.7-3.1 [facility]; [facility] Work Phone: Lymphocytes/100 WBC (Bld) 40 % Normal [facility]; [facility] Work Phone: MCH (RBC) [Entitic mass] 29.4 pg Normal 26.6-33.0 [facility]; [facility] Work Phone: MCHC (RBC) [Mass/Vol] 34.2 g/dL Normal 31.5-35.7 [facility] pre[facility]ive [facility]; [facility] Work Phone: MCV (RBC) [Entitic vol] 86 fL Normal 79-97 [facility]; [facility] Work Phone: Monocytes (Bld) [#/Vol] 0.6 10*3/uL Normal 0.1-0.9 [facility]; [facility] Work Phone: Monocytes/100 WBC (Bld) 6 % Normal [facility]; [facility] Work Phone: Neutrophils (Bld) [#/Vol] 4.6 10*3/uL Normal 1.4-7.0 [facility]; [facility] Work Phone: Neutrophils/100 WBC (Bld) 51 % Normal [facility]; [facility] Work Phone: Platelets (Bld) [#/Vol] 303 10*3/uL Normal 150-450 [facility]; [facility] Work Phone: RBC (Bld) [#/Vol] 5.28 10*6/uL Normal 3.77-5.28 [facility]; [facility] Work Phone: WBC (Bld) [#/Vol] 9.1 10*3/uL Normal 3.4-10.8 [facility]; [facility] Work Phone: LIPID PANEL ([phone])Ordered B y: Post Graduate Intern on 08-07-2022 Cholesterol [Mass/Vol] 147 mg/dL Normal 100-199 [facility]; [facility] Work Phone: Cholesterol in HDL [Mass/Vol] 60 mg/dL Normal [facility]; [facility] Work Phone: Triglyceride [Mass/Vol] 106 mg/dL Normal 0-149 [facility]; [facility] Work Phone: LIPID PANEL ([phone]) 19 mg/dL Normal 5-40 [facility]; [facility] Work Phone: LIPID PANEL ([id number]) 68 mg/dL Normal 0-99 [facility]; [facility] Work Phone: LIPID PANEL ([phone]) 1.1 {ratio} Normal 0.0-3.2 [facility]; [facility] Work Phone: METABOLIC PANEL, COMPREHENSI VE ([phone])Ordered By: Post Graduate Intern on 08-07-2022 Albumin [Mass/Vol] 4.4 g/dL Normal 3.8-4.8 [facility]; [facility] Work Phone: Albumin/Globulin [Mass ratio] 2.0 {ratio} Normal 1.2-2.2 [facility]; [facility] Work Phone: ALP [Catalytic activity/Vol] 42 U/L Abnormal 44-121 [facility]; [facility] Work Phone: ALT [Catalytic activity/Vol] 12 U/L Normal 0-32 [facility]; [facility] Work Phone: AST [Catalytic activity/Vol] 15 U/L Normal 0-40 [facility]; [facility] Work Phone: Bilirubin [Mass/Vol] 0.2 mg/dL Normal 0.0-1.2 [facility]; [facility] Work Phone: Calcium [Mass/Vol] 9.6 mg/dL Normal 8.7-10.2 [facility]; [facility] Work Phone: Chloride [Moles/Vol] 105 mmol/L Normal 96-106 [facility]; [facility] Work Phone: CO2 [Moles/Vol] 24 mmol/L Normal 20-29 [facility]; [facility] Work Phone: Creatinine [Mass/Vol] 0.82 mg/dL Normal 0.57-1.00 [facility]; [facility] Work Phone: Globulin (S) [Mass/Vol] 2.2 g/dL Normal 1.5-4.5 [facility]; [facility] Work Phone: Glucose [Mass/Vol] 92 mg/dL Normal 70-99 [facility]; [facility] Work Phone: Potassium [Moles/Vol] 4.8 mmol/L Normal 3.5-5.2 [facility]; [facility] Work Phone: Protein [Mass/Vol] 6.6 g/dL Normal 6.0-8.5 [facility]; [facility] Work Phone: Sodium [Moles/Vol] 142 mmol/L Normal 134-144 [facility]; [facility] Work Phone: Urea nitrogen [Mass/Vol] 11 mg/dL Normal 6-24 [facility]; [facility] Work Phone: Urea nitrogen/Creatinine [Mass ratio] 13 mg/mg Normal 9-23 [facility]; [facility] Work Phone: METABOLIC PANEL, COMPREHENSIVE ([id number]) 87 mL/min/1.73 Normal [facility]; [facility] Work Phone: MICROALBUMINOrdered By: [employer] em Horse Trainer on 08-07-2022 Albumin DL <= 20 mg/L (U) [Mass/Vol] mg/dL Normal [facility]; [facility] Work Phone: Albumin/Creatinine (U) [Mass ratio] <4 Normal 0-29 [facility]; [facility] Work Phone: Creatinine (U) [Mass/Vol] 67.0 mg/dL Normal [facility]; [facility] Work Phone: TSH ([phone])Ordered By: [employer] m Horse Trainer on 08-07-2022 TSH Qn 1.520 {uIU/mL} Normal 0.450-4.50 0 [facility]; [facility] Work Phone: URINALYSIS, W/ MICRO ([phone]) Ordered By: Post Graduate Intern on 08-07-2022 Appearance (U) Clear Normal [facility]; [facility] Work Phone: Bilirubin Ql (U) Negative Normal Compre[facility] nsive [facility]; [facility] Work Phone: Color (U) Yellow Normal [facility]; [facility] Work Phone: Glucose Ql (U) Negative Normal [facility]; [facility] Work Phone: Hemoglobin Ql (U) Trace Abnormal Compre[facility]; [facility] Work Phone: Ketones Ql (U) Negative Normal [facility]; [facility] Work Phone: Leukocyte esterase Test strip Ql (U) Negative Normal [facility]; [facility] Work Phone: Microscopic observation LM Nom (Urine sed) See below: Normal [facility]; [facility] Work Phone: Nitrite Ql (U) Negative Normal [facility]; [facility] Work Phone: pH (U) 6.5 [pH] Normal 5.0-7.5 [facility]; [facility] Work Phone: Protein Ql (U) Negative Normal [facility]; [facility] Work Phone: Specific gravity (U) [Rel density] 1.015 1 Normal 1.005-1.03 0 [facility]; [facility] Work Phone: Urobilinogen (U) [Mass/Vol] 0.2 mg/dL Normal 0.2-1.0 [facility]; [facility] Work Phone: Blood Glucose , Office [phone])on 03-13-2022 Glucose Glucometer (BldC) [Moles/Vol] 88 1 Normal [facility]; [facility] Work Phone: HgA1C , Office ([phone])on HbA1c (Bld) [Mass fraction] 5.6 % Normal 4.6 - 7.1 [facility]; [facility] Work Phone: Chlamydia trachomatis rRNA d etection by probe and target amplification methodon 08-12-2021 C. trachomatis rRNA MURALI+probe Ql (Unsp spec) Negative Negative [facility] Work Phone: Gram stain for investigation of transfusion reactionon 08-12-2021 Microscopic observation Gram stain Nom (Unsp spec) [facility] Work Phone: Laboratory - Microbiology an d Antimicrobial susceptibilityon 08-12-2021 N. gonorrhoeae DNA MURALI+probe Ql (Unsp spec) Negative Negative [facility] Work Phone: Comment on above: Performed at: =[address] [id number] Director: Viki Wheeler MD, Phone: [phone] No Panel Informationon 08-12 POC Bacterial Vaginitis (Rapid) Positive [facility] Work Phone: POC Trichomonas (Rapid) Negative [facility] Work Phone: Thin prep Papanicolaou smear with manual screeningon 08-12-2021 Genital Culture G. vaginalis (Presumptive) [facility] Work Phone: CBC W/AUTO DIFF WBC ([phone])O rdered By: Post Graduate Intern on 08-02-2020 Basophils (Bld) [#/Vol] 0.0 {x10E3/uL} Normal 0.0-0.2 [facility]; [facility] Work Phone: Comment on above: PATIENT WAS FASTINGP ERFORMED BY: TOBIN [employer] [facility] [id number] Basophils (Bld) [#/Vol] 0.0 10*3/uL Normal 0.0-0.2 [facility]; [facility] Work Phone: Basophils/100 WBC (Bld) 0 % Normal [facility]; [facility] Work Phone: Comment on above: PATIENT WAS FASTINGP ERFORMED BY: TOBIN Locally [email or web address] [id number] Eosinophils (Bld) [#/Vol] 0.2 {x10E3/uL} Normal 0.0-0.4 [facility]; [facility] Work Phone: Comment on above: PATIENT WAS FASTINGP ERFORMED BY: Locally [facility] [id number] Eosinophils (Bld) [#/Vol] 0.2 10*3/uL Normal 0.0-0.4 [facility]; [facility] Work Phone: Eosinophils/100 WBC (Bld) 2 % Normal [facility]; [facility] Work Phone: Comment on above: PATIENT WAS FASTINGP ERFORMED BY: [id number] [facility] [id number] Erythrocyte distribution width (RBC) [Ratio] 13.5 % Normal 11.7-15.4 [facility]; [facility] Work Phone: Comment on above: PATIENT WAS FASTINGP ERFORMED BY: TOBIN [id number] [facility] [id number] Hematocrit (Bld) [Volume fraction] 46.1 % Normal 34.0-46.6 [facility]; [facility] Work Phone: Comment on above: PATIENT WAS FASTINGP ERFORMED BY: TOBIN Huitron [id number] [facility] [id number] Hemoglobin (Bld) [Mass/Vol] 15.2 g/dL Normal 11.1-15.9 [facility]; [facility] Work Phone: Comment on above: PATIENT WAS FASTINGP ERFORMED BY: TOBIN Elana [id number] [facility] [id number] Immature granulocytes (Bld) [#/Vol] 0.0 {x10E3/uL} Normal 0.0-0.1 [facility]; [facility] Work Phone: Comment on above: PATIENT WAS FASTINGP ERFORMED BY: Elana [id number] [facility] [id number] Immature granulocytes (Bld) [#/Vol] 0.0 10*3/uL Normal 0.0-0.1 [facility]; [facility] Work Phone: Immature granulocytes/100 WBC (Bld) 0 % Normal [facility]; [facility] Work Phone: Comment on above: PATIENT WAS FASTINGP ERFORMED BY: [employer] [id number] [facility] [id number] Lymphocytes (Bld) [#/Vol] 3.9 {x10E3/uL} Abnormal 0.7-3.1 [facility]; [facility] Work Phone: Comment on above: PATIENT WAS FASTINGP ERFORMED BY: [facility] [id number] [facility] [id number] Lymphocytes (Bld) [#/Vol] 3.9 10*3/uL Abnormal 0.7-3.1 [facility]; [facility] Work Phone: Lymphocytes/100 WBC (Bld) 38 % Normal [facility]; [facility] Work Phone: Comment on above: PATIENT WAS FASTINGP ERFORMED BY: TOBIN [facility] [id number] [address] [facility] [place] [id number] MCH (RBC) [Entitic mass] 29.3 pg Normal 26.6-33.0 [facility]; [facility] Work Phone: Comment on above: PATIENT WAS FASTINGP ERFORMED BY: CB [facility] [id number] Jenkins RoadDublin [place] [id number] MCHC (RBC) [Mass/Vol] 33.0 g/dL Normal 31.5-35.7 [facility] prehensive [facility]; [facility] Work Phone: Comment on above: PATIENT WAS FASTINGP ERFORMED BY: TOBIN [facility] [id number] Jenkins [facility] [place] [id number] MCV (RBC) [Entitic vol] 89 fL Normal 79-97 [facility]; [facility] Work Phone: Comment on above: PATIENT WAS FASTINGP ERFORMED BY: TOBIN [facility] [id number] [address] [facility] [place] [id number] Monocytes (Bld) [#/Vol] 0.6 {x10E3/uL} Normal 0.1-0.9 [facility]; [facility] Work Phone: Comment on above: PATIENT WAS FASTINGP ERFORMED BY: CB [facility] [id number] Jenkins RoadDublin [place] [id number] Monocytes (Bld) [#/Vol] 0.6 10*3/uL Normal 0.1-0.9 [facility]; [facility] Work Phone: Monocytes/100 WBC (Bld) 6 % Normal [facility]; [facility] Work Phone: Comment on above: PATIENT WAS FASTINGP ERFORMED BY: [facility] [id number] [address] [facility] [id number] Neutrophils (Bld) [#/Vol] 5.5 {x10E3/uL} Normal 1.4-7.0 [facility]; [facility] Work Phone: Comment on above: PATIENT WAS FASTINGP ERFORMED BY: TOBIN NohemiTucker [id number] [address]bl[address] [place] [id number] Neutrophils (Bld) [#/Vol] 5.5 10*3/uL Normal 1.4-7.0 [facility]; [facility] Work Phone: Neutrophils/100 WBC (Bld) 54 % Normal [facility]; [facility] Work Phone: Comment on above: PATIENT WAS FASTINGP ERFORMED BY: TOBIN [id number] [address] [facility] [id number] Platelets (Bld) [#/Vol] 307 {x10E3/uL} Normal 150-450 [facility]; [facility] Work Phone: Comment on above: PATIENT WAS FASTINGP ERFORMED BY: TOBIN Huitron Cikwqr4325 [address] [facility] [id number] Platelets (Bld) [#/Vol] 307 10*3/uL Normal 150-450 [facility]; [facility] Work Phone: RBC (Bld) [#/Vol] 5.18 {x10E6/uL} Normal 3.77-5.28 [facility]; [facility] Work Phone: Comment on above: PATIENT WAS FASTINGP ERFORMED BY: [facility]6370 [facility] [id number] RBC (Bld) [#/Vol] 5.18 10*6/uL Normal 3.77-5.28 [facility] Work Phone: WBC (Bld) [#/Vol] 10.2 {x10E3/uL} Normal 3.4-10.8 [facility]; [facility] Work Phone: Comment on above: PATIENT WAS FASTINGP ERFORMED BY: TOBIN [facility] Fqgwgj0402 Jenkins RoadDublin [place] [id number] WBC (Bld) [#/Vol] 10.2 10*3/uL Normal 3.4-10.8 [facility]; [facility] Work Phone: LIPID PANEL ([id number])Ordered B y: Post Graduate Intern on 08-02-2020 Cholesterol [Mass/Vol] 158 mg/dL Normal 100-199 [facility]; [facility] Work Phone: Comment on above: PATIENT WAS FASTINGP ERFORMED BY: TOBIN [facility] Djebpu8011 [address] RoadDublin [place] [id number] Cholesterol in HDL [Mass/Vol] 58 mg/dL Normal [facility]; [facility] Work Phone: Comment on above: PATIENT WAS FASTINGP ERFORMED BY: TOBIN [facility] Yxotdt8659 [address] [facility]in [place] [id number] Cholesterol in LDL/Cholesterol in HDL [Mass ratio] 1.3 {ratio} Normal 0.0-3.2 [facility]; [facility] Work Phone: Comment on above: LDL/HDL Ratio Men Wo men 1/2 Avg.Risk 1.0 1.5 Avg.Risk 3.6 3.2 2X Avg.Risk 6.2 5.0 3X Avg.Risk 8.0 6.1 PATIENT WAS FASTINGP ERFORMED BY: TOBIN [facility] Airtjy5519 [address] [facility]blin [place] [id number] Triglyceride [Mass/Vol] 138 mg/dL Normal 0-149 [facility]; [facility] Work Phone: Comment on above: PATIENT WAS FASTINGP ERFORMED BY: TOBIN [facility] Yywynt3487 [address] RoadDublin [place] [id number] LIPID PANEL (66008) 76 mg/dL Normal 0-99 [facility]; [facility] Work Phone: Comment on above: PATIENT WAS FASTINGP ERFORMED BY: TOBIN [facility] Vwauik6464 [address] RoadDublin [place] [id number] LIPID PANEL (70078) 24 mg/dL Normal 5-40 [facility]; [facility] Work Phone: Comment on above: PATIENT WAS FASTINGP ERFORMED BY: CB [facility] Hzlfkj9426 [address] RoadDublin [place] [id number] LIPID PANEL (19284) 1.3 {ratio} Normal 0.0-3.2 [facility] Medicine; [facility] Work Phone: METABOLIC PANEL, COMPREHENSI VE ([id number])Ordered By: Post Graduate Intern on 08-02-2020 Albumin [Mass/Vol] 4.5 g/dL Normal 3.8-4.8 [facility]; [facility] Work Phone: Comment on above: PATIENT WAS FASTINGP ERFORMED BY: TOBIN [facility] Cdzbct7408 [address] RoadDublin [place] [id number] Albumin/Globulin [Mass ratio] 1.7 {ratio} Normal 1.2-2.2 [facility]; [facility] Work Phone: Comment on above: PATIENT WAS FASTINGP ERFORMED BY: CB [facility] Pqbpng5509 [address] RoadDublin [place] [id number] ALP [Catalytic activity/Vol] 44 [iU]/L Normal 39-117 [facility]; [facility] Work Phone: Comment on above: PATIENT WAS FASTINGP ERFORMED BY: CB [facility] Ocbqhn7886 [address] RoadDublin [place] [id number] ALP [Catalytic activity/Vol] 44 U/L Normal 39-117 [facility]; [facility] Work Phone: ALT [Catalytic activity/Vol] 12 [iU]/L Normal 0-32 [facility]; [facility] Work Phone: Comment on above: PATIENT WAS FASTINGP ERFORMED BY: CB [facility] Pivgzv4757 [address] RoadDublin [place] [id number] ALT [Catalytic activity/Vol] 12 U/L Normal 0-32 [facility]; [facility] Work Phone: AST [Catalytic activity/Vol] 16 [iU]/L Normal 0-40 [facility]; [facility] Work Phone: Comment on above: PATIENT WAS FASTINGP ERFORMED BY: CB [facility] Nibsde1260 [address] RoadDublin [place] [id number] AST [Catalytic activity/Vol] 16 U/L Normal 0-40 [facility]; [facility] Work Phone: Bilirubin [Mass/Vol] 0.3 mg/dL Normal 0.0-1.2 [facility] rehensive Internal Medicine; [facility] Work Phone: Comment on above: PATIENT WAS FASTINGP ERFORMED BY: CB [facility] Ooshcu1070 [address] RoadDublin [place] [id number] Calcium [Mass/Vol] 9.4 mg/dL Normal 8.7-10.2 [facility]; [facility] Work Phone: Comment on above: PATIENT WAS FASTINGP ERFORMED BY: CB [facility] Xicbae9500 [address] RoadDublin [place] [id number] Chloride [Moles/Vol] 106 mmol/L Normal 96-106 [facility] rehensive Internal Medicine; [facility] Work Phone: Comment on above: PATIENT WAS FASTINGP ERFORMED BY: CB [facility] Dhfpuv7101 [address] RoadDublin [place] [id number] CO2 [Moles/Vol] 20 mmol/L Normal 20-29 [facility] Internal Medicine; [facility] Work Phone: Comment on above: PATIENT WAS FASTINGP ERFORMED BY: CB [facility] Onorfb0106 [address] RoadDublin [place] [id number] Creatinine [Mass/Vol] 0.82 mg/dL Normal 0.57-1.00 [facility]; [facility] Work Phone: Comment on above: PATIENT WAS FASTINGP ERFORMED BY: CB [facility] Boiebf8128 [address] RoadDublin [place] [id number] GFR/1.73 sq M predicted among blacks CKD-EPI (S/P/Bld) [Vol rate/Area] 98 mL/min/1.73 Normal [facility]; [facility] Work Phone: Comment on above: PATIENT WAS FASTINGP ERFORMED BY: CB [facility] Qwhtag4168 [address] RoadDublin [place] [id number] GFR/1.73 sq M predicted among non-blacks CKD-EPI (S/P/Bld) [Vol rate/Area] 85 mL/min/1.73 Normal [facility]; [facility] Work Phone: Comment on above: PATIENT WAS FASTINGP ERFORMED BY: CB [facility] Sgznqe5459 [address] RoadDublin [place] [id number] Globulin (S) [Mass/Vol] 2.6 g/dL Normal 1.5-4.5 [facility] Internal Medicine; [facility] Work Phone: Comment on above: PATIENT WAS FASTINGP ERFORMED BY: CB [facility] Fzzrad7554 [address] RoadDublin [place] [id number] Glucose [Mass/Vol] 101 mg/dL Abnormal 65-99 [facility]; [facility] Work Phone: Comment on above: PATIENT WAS FASTINGP ERFORMED BY: [facility] Cqixhe4479 [address] RoadDublin [place] [id number] Potassium [Moles/Vol] 3.7 mmol/L Normal 3.5-5.2 [facility] prehensive Internal Medicine; [facility] Work Phone: Comment on above: PATIENT WAS FASTINGP ERFORMED BY: [facility] Ddqmjd4434 [address] RoadDublin [place] [id number] Protein [Mass/Vol] 7.1 g/dL Normal 6.0-8.5 [facility]; [facility] Work Phone: Comment on above: PATIENT WAS FASTINGP ERFORMED BY: CB [facility] Jpnyld4523 [address] RoadDublin [place] [id number] Sodium [Moles/Vol] 141 mmol/L Normal 134-144 [facility]; [facility] Work Phone: Comment on above: PATIENT WAS FASTINGP ERFORMED BY: CB [facility] Glftzs7203 [address] RoadDublin [place] [id number] Urea nitrogen [Mass/Vol] 8 mg/dL Normal 6-24 [facility]; [facility] Work Phone: Comment on above: PATIENT WAS FASTINGP ERFORMED BY: TOBIN Alvarez6370 [facility] [id number] Urea nitrogen/Creatinine [Mass ratio] 10 mg/mg Normal 9-23 [facility]; [facility] Work Phone: Comment on above: PATIENT WAS FASTINGP ERFORMED BY: TOBIN Huitron Dzzmlu8054 [facility] [id number] TSH ([id number])Ordered By: [email or web address] Horse Trainer on 08-02-2020 TSH Qn 2.300 {uIU/mL} Normal 0.450-4.50 0 [facility]; [facility] Work Phone: Comment on above: PATIENT WAS FASTINGP ERFORMED BY: TOBIN SongSaint [facility] Iedfoy0445 [facility] [id number] CBC & PLATELETS (AUTO) ([id number])Ordered By: Post Graduate Intern on 09-12-2019 Erythrocyte distribution width (RBC) [Ratio] 14.2 % Normal 11.7-15.4 [facility] Work Phone: Comment on above: PATIENT NOT FASTINGP ERFORMED BY: TOBIN Faganlin6370 [facility] [id number] Hematocrit (Bld) [Volume fraction] 42.8 % Normal 34.0-46.6 [facility] Work Phone: Comment on above: PATIENT NOT FASTINGP ERFORMED BY: TOBIN Huitron Nejuux2447 [facility] [id number] Hemoglobin (Bld) [Mass/Vol] 14.4 g/dL Normal 11.1-15.9 [facility] Work Phone: Comment on above: PATIENT NOT FASTINGP ERFORMED BY: TOBIN Huitron Cinfyk8703 [facility] [id number] MCH (RBC) [Entitic mass] 29.7 pg Normal 26.6-33.0 [facility] Work Phone: Comment on above: PATIENT NOT FASTINGP ERFORMED BY: CB [facility] Ginemj9143 [address] RoadDublin [place] [id number] MCHC (RBC) [Mass/Vol] 33.6 g/dL Normal 31.5-35.7 [facility] Internal Medicine Work Phone: Comment on above: PATIENT NOT FASTINGP ERFORMED BY: CB [facility] Xojyol1047 [address] RoadDublin [place] [id number] MCV (RBC) [Entitic vol] 88 fL Normal 79-97 [facility] Work Phone: Comment on above: PATIENT NOT FASTINGP ERFORMED BY: CB [facility] Rxcovd9976 [address] RoadDublin [place] [id number] Platelets (Bld) [#/Vol] 354 {x10E3/uL} Normal 150-450 [facility] Internal Medicine Work Phone: Comment on above: PATIENT NOT FASTINGP ERFORMED BY: CB [facility] Uavuuo2986 [address] RoadDublin [place] [id number] Platelets (Bld) [#/Vol] 354 10*3/uL Normal 150-450 [facility] Internal Medicine; [facility] Medicine Work Phone: RBC (Bld) [#/Vol] 4.85 {x10E6/uL} Normal 3.77-5.28 [facility] Internal Medicine Work Phone: Comment on above: PATIENT NOT FASTINGP ERFORMED BY: CB [facility] Cfwjzo5231 [address] Roadblin [place] [id number] RBC (Bld) [#/Vol] 4.85 10*6/uL Normal 3.77-5.28 [facility] Internal Medicine; [facility] Work Phone: WBC (Bld) [#/Vol] 10.9 {x10E3/uL} Abnormal 3.4-10.8 [facility] Internal Medicine Work Phone: Comment on above: PATIENT NOT FASTINGP ERFORMED BY: CB [facility] Ipoeza8155 [address]Dublin [place] [id number] WBC (Bld) [#/Vol] 10.9 10*3/uL Abnormal 3.4-10.8 [facility]; [facility] Work Phone: Metabolic Panel, Comprehensi clinton ([id number])Ordered By: Post Graduate Intern on 09-12-2019 Albumin [Mass/Vol] 4.2 g/dL Normal 3.8-4.8 [facility] Internal Medicine Work Phone: Comment on above: PATIENT NOT FASTINGP ERFORMED BY: CB [facility] Ynstyf1776 [address] RoadDublin [place] [id number] Albumin/Globulin [Mass ratio] 1.8 {ratio} Normal 1.2-2.2 [facility] Work Phone: Comment on above: PATIENT NOT FASTINGP ERFORMED BY: CB [facility] Hfvvkt2820 [address] RoadDublin [place] [id number] ALP [Catalytic activity/Vol] 36 [iU]/L Abnormal 39-117 [facility] Work Phone: Comment on above: PATIENT NOT FASTINGP ERFORMED BY: CB [facility] Krcajc1726 [address] RoadDublin [place] [id number] ALP [Catalytic activity/Vol] 36 U/L Abnormal 39-117 [facility]; [facility] Work Phone: ALT [Catalytic activity/Vol] 11 [iU]/L Normal 0-32 [facility] Work Phone: Comment on above: PATIENT NOT FASTINGP ERFORMED BY: CB [facility] Aeidti6719 [address] RoadDublin [place] [id number] ALT [Catalytic activity/Vol] 11 U/L Normal 0-32 [facility]; [facility] Work Phone: AST [Catalytic activity/Vol] 13 [iU]/L Normal 0-40 [facility] Work Phone: Comment on above: PATIENT NOT FASTINGP ERFORMED BY: CB [facility] Flbgrz1740 [address] RoadDublin [place] [id number] AST [Catalytic activity/Vol] 13 U/L Normal 0-40 [facility]; [facility] Work Phone: Bilirubin [Mass/Vol] 0.2 mg/dL Normal 0.0-1.2 Comp rehensive Internal Medicine Work Phone: Comment on above: PATIENT NOT FASTINGP ERFORMED BY: CB [facility] Xouzqs0914 [address] RoadDublin [place] [id number] Calcium [Mass/Vol] 8.9 mg/dL Normal 8.7-10.2 [facility] Internal Medicine Work Phone: Comment on above: PATIENT NOT FASTINGP ERFORMED BY: CB [facility] Pgqnok0670 [address] RoadDublin [place] [id number] Chloride [Moles/Vol] 107 mmol/L Abnormal 96-106 Comp cosho[facility] medical centerensive Internal Medicine Work Phone: Comment on above: PATIENT NOT FASTINGP ERFORMED BY: CB [facility] Nchyxq3230 [address] RoadD[address] [place] [id number] CO2 [Moles/Vol] 22 mmol/L Normal 20-29 Comprehen [facility] Internal Medicine Work Phone: Comment on above: PATIENT NOT FASTINGP ERFORMED BY: CB [facility] Eevdjs4666 [address] RoadDublin [place] [id number] Creatinine [Mass/Vol] 0.76 mg/dL Normal 0.57-1.00 [facility] Work Phone: Comment on above: PATIENT NOT FASTINGP ERFORMED BY: CB [facility] Lyfilf7679 [address]kn[address] RoadDublin [place] [id number] GFR/1.73 sq M predicted among blacks CKD-EPI (S/P/Bld) [Vol rate/Area] 108 mL/min/1.73 Normal [facility] Work Phone: Comment on above: PATIENT NOT FASTINGP ERFORMED BY: CB [facility] Gvlzuo4427 [address] RoadDublin [place] [id number] GFR/1.73 sq M predicted among non-blacks CKD-EPI (S/P/Bld) [Vol rate/Area] 94 mL/min/1.73 Normal [facility] Work Phone: Comment on above: PATIENT NOT FASTINGP ERFORMED BY: CB [facility] Zvygqf9859 [address] RoadDublin [place] [id number] Globulin (S) [Mass/Vol] 2.4 g/dL Normal 1.5-4.5 [facility] Internal Medicine Work Phone: Comment on above: PATIENT NOT FASTINGP ERFORMED BY: CB [facility] Bjcnlx3238 [address] RoadDublin [place] [id number] Glucose [Mass/Vol] 95 mg/dL Normal 65-99 [facility] Internal Medicine Work Phone: Comment on above: PATIENT NOT FASTINGP ERFORMED BY: CB [facility] Kwbwob4374 [address] RoadD[address] [place] [id number] Potassium [Moles/Vol] 4.5 mmol/L Normal 3.5-5.2 [facility] Internal Medicine Work Phone: Comment on above: PATIENT NOT FASTINGP ERFORMED BY: CB [facility] Azehtq2356 [address] RoadD[address] [place] [id number] Protein [Mass/Vol] 6.6 g/dL Normal 6.0-8.5 [facility] Internal Medicine Work Phone: Comment on above: PATIENT NOT FASTINGP ERFORMED BY: CB [facility] Hkklqq0080 [address] RoadDublin [place] [id number] Sodium [Moles/Vol] 142 mmol/L Normal 134-144 [facility] Internal Medicine Work Phone: Comment on above: PATIENT NOT FASTINGP ERFORMED BY: CB [facility] Diaigw6515 [address] RoadDublin [place] [id number] Urea nitrogen [Mass/Vol] 6 mg/dL Normal 6-24 [facility] Internal Medicine Work Phone: Comment on above: PATIENT NOT FASTINGP ERFORMED BY: CB [facility] Cwdzkt6751 [address] RoadD[address] [place] [id number] Urea nitrogen/Creatinine [Mass ratio] 8 mg/mg Abnormal 9-23 [facility] Internal Medicine Work Phone: Comment on above: PATIENT NOT FASTINGP ERFORMED BY: CB [facility] Bimqfz5808 [address] RoadDublin [place] [id number] RANGEL CULTURE-STOOL ([id number])Ord ered By: Post Graduate Intern on 09-07-2019 Bacteria identified Cx Nom (Unsp spec) NCI Normal [facility] Work Phone: Comment on above: No Campylobacter spe cies isolated. PATIENT NOT FASTINGP ERFORMED BY: CB [facility] Yfzyvi9268 [address] RoadDublin [place] [id number] Bacteria identified Cx Nom (Unsp spec) NSS Normal [facility] Work Phone: Comment on above: No Salmonella or Mireya gella recovered. PATIENT NOT FASTINGP ERFORMED BY: CB [facility] Yxgoie4779 [address] RoadDublin [place] [id number] Campylobacter sp identified Org specific cx Nom (Stl) Final report Normal Comprehens mona Internal Medicine Work Phone: Comment on above: PATIENT NOT FASTINGP ERFORMED BY: CB [facility] Ikapff0652 [address] RoadDublin [place] [id number] E. coli shiga-like toxin IA Ql (Stl) Negative Normal [facility] Work Phone: Comment on above: PATIENT NOT FASTINGP ERFORMED BY: CB [facility] Lsdmxp9757 [address] RoadDublin [place] [id number] E. coli shiga-like toxin IA Ql (Stl) Negative Normal [facility]; [facility] Work Phone: Salmonella and Shigella sp identified Org specific cx Nom (Stl) Final report Normal Comprehens mona Internal Medicine Work Phone: Comment on above: PATIENT NOT FASTINGP ERFORMED BY: CB [facility] Pijekv3502 [address] RoadDublin [place] [id number] C-DIFFICILE, STOOL ([id number])Or dered By: Post Graduate Intern on 09-07-2019 C. difficile toxin A+B IA Ql (Stl) Negative Normal [facility] Work Phone: Comment on above: PATIENT NOT FASTINGP ERFORMED BY: CB [facility] Fsyptc7488 [address] RoadDublin [place] [id number] C. difficile toxin A+B IA Ql (Stl) Negative Normal [facility]; [facility] Work Phone: LEUKOCYTE COUNT, FECAL ([phone])Ordered By: Post Graduate Intern on 09-07-2019 WBC LM Ql (Stl) Final report Abnormal Compreh ensive Internal Medicine Work Phone: Comment on above: PATIENT NOT FASTINGP ERFORMED BY: [email or web address] Emrmgf2272 [address] RoadDublin [place] [id number] WBC LM Ql (Stl) WCM Abnormal Comprehen sive Internal Medicine Work Phone: Comment on above: Moderate amount of w ashley blood cells. PATIENT NOT FASTINGP ERFORMED BY: [employer] [facility] Xgcrpl3528 [address] TheFix.comDublin [place] [id number] OCCULT BLOOD FECES SCREEN (8 7620)Ordered By: Post Graduate Intern on 09-07-2019 Lower GI hemoglobin IA Ql (Stl) Positive Abnormal [facility] Work Phone: Comment on above: PATIENT NOT FASTINGP ERFORMED BY: netFactor70 [address] [facility] [id number] Lower GI hemoglobin IA Ql (Stl) Positive Abnormal [facility]; [facility] Work Phone: OVA & PARASITE DIR SMEAR ([phone])Ordered By: Post Graduate Intern on 09-07-2019 Ova and parasites identified Concentration Nom (Stl) NOCP1 Normal [facility] Work Phone: Comment on above: No ova, cysts, or pa rasites seen. .One negative specimen does not rule out the possibility of aparasitic infection. PATIENT NOT FASTINGP ERFORMED BY: [employer] [facility] Zyxdvl6513 [address] TheFix.[email or web address] [facility] [id number] Ova and parasites identified LM Nom (Unsp spec) Final report Normal [facility] Work Phone: Comment on above: These results were o btained using wet preparation(s) and trichromestained smear. This test does not include testing for Cryptosporidiumparvum, Cyclospora, or Microsporidia. 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 Glucose [Mass/Vol] 86 mg/dL Normal 65-99 [facility] Internal Medicine Work Phone: Comment on above: PATIENT WAS FASTINGP ERFORMED BY: TOBNI NohemiJudson FaganBbhgdn6475 [address] [facility]bl[facility] [place] [id number] LIPID PANEL ([id number])Ordered B y: Post Graduate Intern on 07-28-2019 Cholesterol [Mass/Vol] 149 mg/dL Normal 100-199 [facility] Work Phone: Comment on above: PATIENT WAS FASTINGP ERFORMED BY: TOBIN Faganlin6370 [address] [facility]in [place] [id number] Cholesterol in HDL [Mass/Vol] 55 mg/dL Normal [facility] Work Phone: Comment on above: PATIENT WAS FASTINGP ERFORMED BY: TOBIN Faganlin6370 [address] [facility] [place] [id number] Cholesterol in LDL [Mass/Vol] 69 mg/dL Normal 0-99 [facility] Work Phone: Comment on above: PATIENT WAS FASTINGP ERFORMED BY: TOBIN Faganlin6370 [address] [facility] [place] [id number] Cholesterol in LDL/Cholesterol in HDL [Mass ratio] 1.3 {ratio} Normal 0.0-3.2 [facility] Work Phone: Comment on above: LDL/HDL Ratio Men Wo men 1/2 Avg.Risk 1.0 1.5 Avg.Risk 3.6 3.2 2X Avg.Risk 6.2 5.0 3X Avg.Risk 8.0 6.1 PATIENT WAS FASTINGP ERFORMED BY: TOBIN Faganlin6370 [facility] [place] [id number] Cholesterol in VLDL [Mass/Vol] 25 mg/dL Normal 5-40 [facility] Work Phone: Comment on above: PATIENT WAS FASTINGP ERFORMED BY: TOBIN LabJudson FaganNifyfb2826 [address] [facility]bl[facility] [place] [id number] Triglyceride [Mass/Vol] 123 mg/dL Normal 0-149 [facility] Work Phone: Comment on above: PATIENT WAS FASTINGP ERFORMED BY: TOBIN Faganlin6370 PrismaStarblin [place] [id number] Rapid Flu (88170 x 2)Ordered By: Samara Bruce on 06-10-2018 FLUAV Ag IA Ql (Throat) Negative Normal [facility] Work Phone: Comment on above: both A and B negativ e FLUAV Ag IA Ql (Throat) Negative Normal [facility]; [facility] Work Phone: RANGEL CULTURE-STOOL ([id number])Ord ered By: Post Graduate Intern on 01-27-2018 Bacteria identified Cx Nom (Unsp spec) NSS Normal [facility] Work Phone: Comment on above: No Salmonella or Mireya gella recovered. PERFORMED BY: SafedoX70 [place] [id number] Information: SRC:ST SRC:ST Bacteria identified Cx Nom (Unsp spec) NCI Normal [facility] Work Phone: Comment on above: No Campylobacter spe cies isolated. PERFORMED BY: Clarassance6370 [place] [id number] Information: SRC:ST SRC:ST Campylobacter sp identified Org specific cx Nom (Stl) Final report Normal Comprehens mona Internal Medicine Work Phone: Comment on above: PERFORMED BY: Clarassance6370 PrismaStarin [place] [id number] Information: SRC:ST SRC:ST E. coli shiga-like toxin IA Ql (Stl) Negative Normal [facility] Work Phone: Comment on above: PERFORMED BY: Clarassance6370 PrismaStarin [place] [id number] Information: SRC:ST SRC:ST E. coli shiga-like toxin IA Ql (Stl) Negative Normal [facility]; [facility] Work Phone: Salmonella and Shigella sp identified Org specific cx Nom (Stl) Final report Normal Comprehens mona Internal Medicine Work Phone: Comment on above: PERFORMED BY: [employer] [place] [id number] Information: SRC:ST SRC:ST C-DIFFICILE, STOOL ([id number])Or dered By: Post Graduate Intern on 01-27-2018 C. difficile toxin A+B IA Ql (Stl) Negative Normal [facility] Work Phone: Comment on above: PERFORMED BY: Ykonein [place] [id number] C. difficile toxin A+B IA Ql (Stl) Negative Normal [facility]; [facility] Work Phone: LEUKOCYTE COUNT, FECAL ([phone])Ordered By: Post Graduate Intern on 01-27-2018 WBC LM Ql (Stl) NWBC Normal Com[facility]hen [facility] Internal Medicine Work Phone: Comment on above: No white blood cells seen. PERFORMED BY: [employer] [place] [id number] WBC LM Ql (Stl) Final report Normal Compreh ensive Internal Medicine Work Phone: Comment on above: PERFORMED BY: [employer] [place] [id number] OCCULT BLOOD FECES SCREEN ([id number])Ordered By: Post Graduate Intern on 01-27-2018 Lower GI hemoglobin IA Ql (Stl) Negative Normal [facility] Work Phone: Comment on above: PERFORMED BY: [employer] [place] [id number] Lower GI hemoglobin IA Ql (Stl) Negative Normal [facility]; [facility] Work Phone: OVA & PARASITE DIR SMEAR ([phone])Ordered By: Post Graduate Intern on 01-27-2018 Ova and parasites identified Concentration Nom (Stl) NOCP Normal [facility] Work Phone: Comment on above: No ova, cysts, or pa rasites seen. PERFORMED BY: [employer] [place] [id number] Ova and parasites identified LM Nom (Unsp spec) Final report Normal [facility] Work Phone: Comment on above: These results were o btained using wet preparation(s) and trichromestained smear. This test does not include testing for Cryptosporidiumparvum, Cyclospora, or Microsporidia. PERFORMED BY: sunne.ws Judson Cvhigv8471 [address] [facility] [id number] CBC, Platelets & Auto Diff ( [id number])Ordered By: Post Graduate Intern on 01-26-2018 Basophils (Bld) [#/Vol] 0.0 {x10E3/uL} Normal 0.0-0.2 [facility] Work Phone: Comment on above: PATIENT NOT FASTINGP ERFORMED BY: [employer] Xglveb6079 Jenkins TheFix.comGood [facility] [id number] Basophils (Bld) [#/Vol] 0.0 10*3/uL Normal 0.0-0.2 [facility]; [facility] Work Phone: Basophils/100 WBC (Bld) 0 % Normal [facility] Work Phone: Comment on above: PATIENT NOT FASTINGP ERFORMED BY: [facility]chSaint [facility] Zotzid7407 JenkinsSkydeckGood Hope Hospital [id number] Eosinophils (Bld) [#/Vol] 0.1 {x10E3/uL} Normal 0.0-0.4 [facility] Work Phone: Comment on above: PATIENT NOT FASTINGP ERFORMED BY: [employer] SiteMinderGood Hope Hospital [id number] Eosinophils (Bld) [#/Vol] 0.1 10*3/uL Normal 0.0-0.4 [facility]; [facility] Work Phone: Eosinophils/100 WBC (Bld) 1 % Normal [facility] Work Phone: Comment on above: PATIENT NOT FASTINGP ERFORMED BY: [employer] Ttlwvu9018 JenkinsSkydeckGood Hope Hospital [id number] Erythrocyte distribution width (RBC) [Ratio] 14.2 % Normal 12.3-15.4 [facility] Work Phone: Comment on above: PATIENT NOT FASTINGP ERFORMED BY: [employer] Nqcymr8780 [facility] [id number] Hematocrit (Bld) [Volume fraction] 42.7 % Normal 34.0-46.6 [facility] Work Phone: Comment on above: PATIENT NOT FASTINGP ERFORMED BY: TOBIN Faganlin6370 [facility] [id number] Hemoglobin (Bld) [Mass/Vol] 14.1 g/dL Normal 11.1-15.9 [facility] Work Phone: Comment on above: PATIENT NOT FASTINGP ERFORMED BY: [address] [id number] Immature granulocytes (Bld) [#/Vol] 0.0 {x10E3/uL} Normal 0.0-0.1 [facility] Work Phone: Comment on above: PATIENT NOT FASTINGP ERFORMED BY: [place] [id number] [facility] [id number] Immature granulocytes (Bld) [#/Vol] 0.0 10*3/uL Normal 0.0-0.1 [facility]; [facility] Work Phone: Immature granulocytes/100 WBC (Bld) 0 % Normal [facility] Work Phone: Comment on above: PATIENT NOT FASTINGP ERFORMED BY: NohemiSaint [facility] Center Vrmcru2286 [facility] [id number] Lymphocytes (Bld) [#/Vol] 2.7 {x10E3/uL} Normal 0.7-3.1 [facility] Work Phone: Comment on above: PATIENT NOT FASTINGP ERFORMED BY: [place] [id number] [facility] [id number] Lymphocytes (Bld) [#/Vol] 2.7 10*3/uL Normal 0.7-3.1 [facility]; [facility] Work Phone: Lymphocytes/100 WBC (Bld) 26 % Normal [facility] Work Phone: Comment on above: PATIENT NOT FASTINGP ERFORMED BY: Lab27 Bailey StreetDublin [place] [id number] MCH (RBC) [Entitic mass] 29.7 pg Normal 26.6-33.0 [facility] Work Phone: Comment on above: PATIENT NOT FASTINGP ERFORMED BY: TOBIN LabAscension Borgess Hospital6370 [address] [facility]in [place] [id number] MCHC (RBC) [Mass/Vol] 33.0 g/dL Normal 31.5-35.7 [facility] prehensive Internal Medicine Work Phone: Comment on above: PATIENT NOT FASTINGP ERFORMED BY: TOBIN LabAscension Borgess Hospital6[address] [facility] [place] [facility]in [place] [id number] MCV (RBC) [Entitic vol] 90 fL Normal 79-97 [facility] Work Phone: Comment on above: PATIENT NOT FASTINGP ERFORMED BY: [facility]6370 [facility] [id number] Monocytes (Bld) [#/Vol] 0.5 {x10E3/uL} Normal 0.1-0.9 [facility] Work Phone: Comment on above: PATIENT NOT FASTINGP ERFORMED BY: LabAscension Borgess Hospital6[address] [facility] [place] [facility]in [place] [id number] Monocytes (Bld) [#/Vol] 0.5 10*3/uL Normal 0.1-0.9 [facility]; [facility] Work Phone: Monocytes/100 WBC (Bld) 5 % Normal [facility] Work Phone: Comment on above: PATIENT NOT FASTINGP ERFORMED BY: LabSaint [facility]'S [facility] Center Oenceq6845 Jenkins [facility] Hospitalblin [place] [id number] Neutrophils (Bld) [#/Vol] 7.1 {x10E3/uL} Abnormal 1.4-7.0 [facility] Work Phone: Comment on above: PATIENT NOT FASTINGP ERFORMED BY: LabSaint Mary'S Health Center Kczugn6585 Jenkins [facility] Hospitalblin [place] [id number] Neutrophils (Bld) [#/Vol] 7.1 10*3/uL Abnormal 1.4-7.0 [facility]; [facility] Work Phone: Neutrophils/100 WBC (Bld) 68 % Normal [facility] Work Phone: Comment on above: PATIENT NOT FASTINGP ERFORMED BY: CB [facility] Tnaavl3809 Jenkins RoadGood Hope Hospital [id number] Platelets (Bld) [#/Vol] 274 {x10E3/uL} Normal 150-379 [facility] Work Phone: Comment on above: PATIENT NOT FASTINGP ERFORMED BY: CB [facility] Dhzaul5012 [address] [facility] [id number] Platelets (Bld) [#/Vol] 274 10*3/uL Normal 150-379 [facility]; [facility] Work Phone: RBC (Bld) [#/Vol] 4.74 {x10E6/uL} Normal 3.77-5.28 Co [facility] westensive Internal Medicine Work Phone: Comment on above: PATIENT NOT FASTINGP ERFORMED BY: CB [facility] Tmbwcr7771 [address] [facility] [id number] RBC (Bld) [#/Vol] 4.74 10*6/uL Normal 3.77-5.28 [facility] Internal Medicine; [facility] Work Phone: WBC (Bld) [#/Vol] 10.5 {x10E3/uL} Normal 3.4-10.8 [facility] Internal Medicine Work Phone: Comment on above: PATIENT NOT FASTINGP ERFORMED BY: CB [facility] Hsvpee4407 [address] [facility] [id number] WBC (Bld) [#/Vol] 10.5 10*3/uL Normal 3.4-10.8 [facility]ensive [facility]; [facility] Work Phone: Metabolic Panel, Comprehensi ve ([phone])Ordered By: Post Graduate Intern on 01-26-2018 Albumin [Mass/Vol] 4.3 g/dL Normal 3.5-5.5 [facility]prmin[facility] Internal Medicine Work Phone: Comment on above: PATIENT NOT FASTINGP ERFORMED BY: CB [facility] Myjgeu7059 Jenkins RoadDublin [place] [id number] Albumin/Globulin [Mass ratio] 1.9 {ratio} Normal 1.2-2.2 [facility] Work Phone: Comment on above: PATIENT NOT FASTINGP ERFORMED BY: CB [facility] Vovdxt5548 Jenkins RoadDublin [place] [id number] ALP [Catalytic activity/Vol] 51 [iU]/L Normal 39-117 [facility] Work Phone: Comment on above: PATIENT NOT FASTINGP ERFORMED BY: CB [facility] Vprlwe4294 Jenkins RoadDublin [place] [id number] ALP [Catalytic activity/Vol] 51 U/L Normal 39-117 [facility]; [facility] Work Phone: ALT [Catalytic activity/Vol] 35 [iU]/L Abnormal 0-32 [facility] Work Phone: Comment on above: PATIENT NOT FASTINGP ERFORMED BY: CB [facility] Zkfumc5537 Jenkins RoadDublin [place] [id number] ALT [Catalytic activity/Vol] 35 U/L Abnormal 0-32 [facility]; [facility] Work Phone: AST [Catalytic activity/Vol] 23 [iU]/L Normal 0-40 [facility] Work Phone: Comment on above: PATIENT NOT FASTINGP ERFORMED BY: CB [facility] Esspmt9848 Jenkins RoadDublin [place] [id number] AST [Catalytic activity/Vol] 23 U/L Normal 0-40 [facility]; [facility] Work Phone: Bilirubin [Mass/Vol] 0.2 mg/dL Normal 0.0-1.2 Comp coshocton regional medical centerensive Internal Medicine Work Phone: Comment on above: PATIENT NOT FASTINGP ERFORMED BY: CB [facility] Zrojvl5723 Jenkins RoadDublin [place] [id number] Calcium [Mass/Vol] 9.0 mg/dL Normal 8.7-10.2 [facility] Internal Medicine Work Phone: Comment on above: PATIENT NOT FASTINGP ERFORMED BY: CB [facility] Yyzgop3433 Jnekins RoadDublin [place] [id number] Chloride [Moles/Vol] 106 mmol/L Normal 96-106 Comp coshoct[facility] regional medical centerensive Internal Medicine Work Phone: Comment on above: PATIENT NOT FASTINGP ERFORMED BY: CB [facility] Xktesg7707 Jenkins RoadDublin [place] [id number] CO2 [Moles/Vol] 20 mmol/L Normal 20-29 Comprehen [facility] Internal Medicine Work Phone: Comment on above: PATIENT NOT FASTINGP ERFORMED BY: CB [facility] Evbbya4916 Jenkins RoadDublin [place] [id number] Creatinine [Mass/Vol] 0.73 mg/dL Normal 0.57-1.00 [facility] Internal Medicine Work Phone: Comment on above: PATIENT NOT FASTINGP ERFORMED BY: CB [facility] Tpecqx9509 Jenkins RoadDublin [place] [id number] GFR/1.73 sq M predicted among blacks CKD-EPI (S/P/Bld) [Vol rate/Area] 115 mL/min/1.73 Normal [facility] Work Phone: Comment on above: PATIENT NOT FASTINGP ERFORMED BY: CB [facility] Klksyw7718 Jenkins RoadDublin [place] [id number] GFR/1.73 sq M predicted among non-blacks CKD-EPI (S/P/Bld) [Vol rate/Area] 100 mL/min/1.73 Normal [facility] Work Phone: Comment on above: PATIENT NOT FASTINGP ERFORMED BY: CB [facility] Ebfowe0549 [address] RoadDublin [place] [id number] Globulin (S) [Mass/Vol] 2.3 g/dL Normal 1.5-4.5 [facility] Work Phone: Comment on above: PATIENT NOT FASTINGP ERFORMED BY: CB [facility] Gypjzw0576 Jenkins RoadDublin [place] [id number] Glucose [Mass/Vol] 87 mg/dL Normal 65-99 [facility] Internal Medicine Work Phone: Comment on above: PATIENT NOT FASTINGP ERFORMED BY: CB [facility] Vsztaq5762 Jenkins RoadDublin [place] [id number] Potassium [Moles/Vol] 4.1 mmol/L Normal 3.5-5.2 [facility] prehensive Internal Medicine Work Phone: Comment on above: PATIENT NOT FASTINGP ERFORMED BY: CB [facility] Buhsnw7547 Jenkins RoadDublin [place] [id number] Protein [Mass/Vol] 6.6 g/dL Normal 6.0-8.5 [facility] Internal Medicine Work Phone: Comment on above: PATIENT NOT FASTINGP ERFORMED BY: CB [facility] Tspkhp1355 Jenkins RoadDublin [place] [id number] Sodium [Moles/Vol] 142 mmol/L Normal 134-144 [facility] Internal Medicine Work Phone: Comment on above: PATIENT NOT FASTINGP ERFORMED BY: CB [facility] Jhvbsn4752 Jenkins RoadDublin [place] [id number] Urea nitrogen [Mass/Vol] 8 mg/dL Normal 6-24 [facility] Work Phone: Comment on above: PATIENT NOT FASTINGP ERFORMED BY: CB [facility] Iozsox6499 Jenkins RoadDublin [place] [id number] Urea nitrogen/Creatinine [Mass ratio] 11 mg/mg Normal 9-23 [facility] Work Phone: Comment on above: PATIENT NOT FASTINGP ERFORMED BY: CB [facility] Llsage2581 Jenkins RoadDublin [place] [id number] Urinalysis, Office ([id number])Or dered By: Catherine Bruno on 01-21-2018 Bilirubin Ql (U) Negative Normal Comprehe nsive Internal Medicine Work Phone: Bilirubin Ql (U) Negative Normal Comprehe nsive Internal Medicine; [facility] Work Phone: Glucose Test strip (U) [Mass/Vol] Negative Normal [facility] Work Phone: Glucose Test strip (U) [Mass/Vol] Negative Normal [facility]; [facility] Work Phone: Hemoglobin Ql (U) non-hemolyzed trace Normal [facility] Work Phone: Ketones Ql (U) Small Normal Comprehens mona Internal Medicine Work Phone: Leukocyte esterase Test strip Ql (U) Negative Normal [facility] Work Phone: Leukocyte esterase Test strip Ql (U) Negative Normal [facility]; [facility] Work Phone: Nitrite Ql (U) Negative Normal Comprehens mona Internal Medicine Work Phone: Nitrite Ql (U) Negative Normal Comprehens mona Internal Medicine; [facility] Work Phone: pH (U) 6.5 [pH] Normal [facility] Work Phone: Protein Ql (U) Negative Normal Comprehens mona Internal Medicine Work Phone: Protein Ql (U) Negative Normal Comprehens mona Internal Medicine; [facility] Work Phone: Specific gravity (U) [Rel density] 1.015 1 Normal [facility] Work Phone: Urobilinogen (24H U) [Mass/Time] Normal Normal [facility] Work Phone: CBC, PLATELETS & AUT DIFF ([phone])Ordered By: Post Graduate Intern on 03-11-2017 Basophils (Bld) [#/Vol] 0.0 {x10E3/uL} Normal 0.0-0.2 [facility] Work Phone: Comment on above: repeat in 2 weeks; P ATIENT NOT FASTINGPERFORMED BY: LabCoMonmouth Medical CenterEyrbwm1844 [facility] [id number] Basophils (Bld) [#/Vol] 0.0 10*3/uL Normal 0.0-0.2 [facility]; [facility] Work Phone: Basophils/100 WBC (Bld) 0 % Normal [facility] Work Phone: Comment on above: repeat in 2 weeks; P ATIENT NOT FASTINGPERFORMED BY: LabCo Xoqssv6309 [facility] [id number] Eosinophils (Bld) [#/Vol] 0.3 {x10E3/uL} Normal 0.0-0.4 [facility] Work Phone: Comment on above: repeat in 2 weeks; P ATIENT NOT FASTINGPERFORMED BY: LabCo Hvghed5120 [facility] [id number] Eosinophils (Bld) [#/Vol] 0.3 10*3/uL Normal 0.0-0.4 [facility]; [facility] Work Phone: Eosinophils/100 WBC (Bld) 2 % Normal [facility] Work Phone: Comment on above: repeat in 2 weeks; P ATIENT NOT FASTINGPERFORMED BY: LabAscension Borgess Hospital6370 [facility] [id number] Erythrocyte distribution width (RBC) [Ratio] 14.5 % Normal 12.3-15.4 [facility] Work Phone: Comment on above: repeat in 2 weeks; P ATIENT NOT FASTINGPERFORMED BY: LabCo Qqdvie7635 [facility] [id number] Hematocrit (Bld) [Volume fraction] 39.9 % Normal 34.0-46.6 [facility] Work Phone: Comment on above: repeat in 2 weeks; P ATIENT NOT FASTINGPERFORMED BY: LabCo Piajff1810 [facility] [id number] Hemoglobin (Bld) [Mass/Vol] 12.4 g/dL Normal 11.1-15.9 [facility] Work Phone: Comment on above: repeat in 2 weeks; P ATIENT NOT FASTINGPERFORMED BY: LabCo Vffypx0599 [facility] [id number] Immature granulocytes (Bld) [#/Vol] 0.0 {x10E3/uL} Normal 0.0-0.1 [facility] Work Phone: Comment on above: repeat in 2 weeks; P ATIENT NOT FASTINGPERFORMED BY: LabCo Jowbxz0279 [facility] [id number] Immature granulocytes (Bld) [#/Vol] 0.0 10*3/uL Normal 0.0-0.1 [facility]; [facility] Work Phone: Immature granulocytes/100 WBC (Bld) 0 % Normal [facility] Work Phone: Comment on above: repeat in 2 weeks; P ATIENT NOT FASTINGPERFORMED BY: LabCo Tglxju8675 [facility] [id number] Lymphocytes (Bld) [#/Vol] 4.3 {x10E3/uL} Abnormal 0.7-3.1 [facility] Work Phone: Comment on above: repeat in 2 weeks; P ATIENT NOT FASTINGPERFORMED BY: LabCo Vmqlba6470 [facility] [id number] Lymphocytes (Bld) [#/Vol] 4.3 10*3/uL Abnormal 0.7-3.1 [facility] Internal Medicine; [facility] Work Phone: Lymphocytes/100 WBC (Bld) 34 % Normal [facility] Internal Medicine Work Phone: Comment on above: repeat in 2 weeks; P ATIENT NOT FASTINGPERFORMED BY: TOBIN LabCo Skxwvn8198 [facility] [id number] MCH (RBC) [Entitic mass] 29.1 pg Normal 26.6-33.0 [facility] Internal Medicine Work Phone: Comment on above: repeat in 2 weeks; P ATIENT NOT FASTINGPERFORMED BY: CB LabCo Lvlngx3919 [facility] [id number] MCHC (RBC) [Mass/Vol] 31.1 g/dL Abnormal 31.5-35.7 [facility] Internal Medicine Work Phone: Comment on above: repeat in 2 weeks; P ATIENT NOT FASTINGPERFORMED BY: LabCoMonmouth Medical CenterEvaqzx3486 [facility] [id number] MCV (RBC) [Entitic vol] 94 fL Normal 79-97 [facility] Work Phone: Comment on above: repeat in 2 weeks; P ATIENT NOT FASTINGPERFORMED BY: TOBIN SongSaint Mary'S Health Center Vwvkax4345 [facility] [id number] Monocytes (Bld) [#/Vol] 0.8 {x10E3/uL} Normal 0.1-0.9 [facility] Work Phone: Comment on above: repeat in 2 weeks; P ATIENT NOT FASTINGPERFORMED BY: [facility]6370 [facility] [id number] Monocytes (Bld) [#/Vol] 0.8 10*3/uL Normal 0.1-0.9 [facility]; [facility] Work Phone: Monocytes/100 WBC (Bld) 6 % Normal [facility] Work Phone: Comment on above: repeat in 2 weeks; P ATIENT NOT FASTINGPERFORMED BY: [facility]6370 [facility] [id number] Neutrophils (Bld) [#/Vol] 7.1 {x10E3/uL} Abnormal 1.4-7.0 [facility] Work Phone: Comment on above: repeat in 2 weeks; P ATIENT NOT FASTINGPERFORMED BY: LabSaint Mary'S Health Center Hvjktw3065 [facility] [id number] Neutrophils (Bld) [#/Vol] 7.1 10*3/uL Abnormal 1.4-7.0 [facility]; [facility] Work Phone: Neutrophils/100 WBC (Bld) 58 % Normal [facility] Work Phone: Comment on above: repeat in 2 weeks; P ATIENT NOT FASTINGPERFORMED BY: LabSaint Mary'S Health Center Ztzspa7245 [facility] [id number] Platelets (Bld) [#/Vol] 308 {x10E3/uL} Normal 150-379 [facility] Work Phone: Comment on above: repeat in 2 weeks; P ATIENT NOT FASTINGPERFORMED BY: CB [facility] Qhlxun4451 [address] [facility] [place] [facility] [id number] Platelets (Bld) [#/Vol] 308 10*3/uL Normal 150-379 [facility] Internal Medicine; [facility] Internal Medicine Work Phone: RBC (Bld) [#/Vol] 4.26 {x10E6/uL} Normal 3.77-5.28 [facility] Internal Medicine Work Phone: Comment on above: repeat in 2 weeks; P ATIENT NOT FASTINGPERFORMED BY: CB [facility] Diikjr8935 [address] [facility] [place] [facility] [id number] RBC (Bld) [#/Vol] 4.26 10*6/uL Normal 3.77-5.28 [facility] Internal Medicine; [facility] Internal Medicine Work Phone: WBC (Bld) [#/Vol] 12.6 {x10E3/uL} Abnormal 3.4-10.8 [facility] Internal Medicine Work Phone: Comment on above: repeat in 2 weeks; P ATIENT NOT FASTINGPERFORMED BY: CB [facility] Tczlpy6536 [facility] [id number] WBC (Bld) [#/Vol] 12.6 10*3/uL Abnormal 3.4-10.8 [facility] Internal Medicine; [facility] Internal Medicine Work Phone: CALCIFEDIOL ([phone])Ordered B y: Post Graduate Intern on 03-04-2017 25-Hydroxyvitamin D2+25-Hydroxyvitamin D3 [Mass/Vol] 41.5 ng/mL Normal 30.0-100.0 [facility] Internal Medicine Work Phone: Comment on above: Vitamin D deficiency has been defined by the [place] of[place]icine and an Endocrine Society practice guideline as alevel of serum 25-OH vitamin D less than 20 ng/mL (1,2).The Endocrine Society went on to further define vitamin Dinsufficiency as a level between 21 and 29 ng/mL (2).1. IOM ([place] of Medicine). 2010. Dietary reference intakes for calcium and D. Christopher [place]: The National Academies Press.2. Danita MF, Bev [place], Merry NEW, et al. Evaluation, treatment, and prevention of vitamin D deficiency: an Endocrine Society clinical practice guideline. JCEM. 2010; 96():1911-30. PATIENT WAS FASTINGP ERFORMED BY: LabCo Cltwus8118 Jenkins RoadDublin [place] [id number] CBC, PLATELETS & MANUAL DIFF ([id number])Ordered By: Post Graduate Intern on 03-04-2017 Basophils (Bld) [#/Vol] 0.0 {x10E3/uL} Normal 0.0-0.2 [facility] Work Phone: Comment on above: PATIENT WAS FASTINGP ERFORMED BY: LabCo Fmrhlc0297 Jenkins RoadDublin [place] [id number] Basophils (Bld) [#/Vol] 0.0 10*3/uL Normal 0.0-0.2 [facility]; [facility] Work Phone: Basophils/100 WBC (Bld) 0 % Normal [facility] Work Phone: Comment on above: PATIENT WAS FASTINGP ERFORMED BY: LabCo Wgiuth4014 Jenkins TheFix.comDublin [place] [id number] Eosinophils (Bld) [#/Vol] 0.2 {x10E3/uL} Normal 0.0-0.4 [facility] Work Phone: Comment on above: PATIENT WAS FASTINGP ERFORMED BY: LabCo Nzhobk6677 Jenkins RoadDublin [place] [id number] Eosinophils (Bld) [#/Vol] 0.2 10*3/uL Normal 0.0-0.4 [facility]; [facility] Work Phone: Eosinophils/100 WBC (Bld) 1 % Normal [facility] Work Phone: Comment on above: PATIENT WAS FASTINGP ERFORMED BY: LabCo Ukaipy7214 Jenkins RoadDublin [place] [id number] Erythrocyte distribution width (RBC) [Ratio] 14.9 % Normal 12.3-15.4 [facility] Work Phone: Comment on above: PATIENT WAS FASTINGP ERFORMED BY: TOBIN Huitron Pivqxg5303 [facility] [id number] Hematocrit (Bld) [Volume fraction] 37.9 % Normal 34.0-46.6 [facility] Work Phone: Comment on above: PATIENT WAS FASTINGP ERFORMED BY: Nohemi[address] [id number] Hemoglobin (Bld) [Mass/Vol] 12.3 g/dL Normal 11.1-15.9 [facility] Work Phone: Comment on above: PATIENT WAS FASTINGP ERFORMED BY: NohemiSaint Mary'S Health Center Wjccfp6911 [facility] [id number] Immature granulocytes (Bld) [#/Vol] 0.0 {x10E3/uL} Normal 0.0-0.1 [facility] Work Phone: Comment on above: PATIENT WAS FASTINGP ERFORMED BY: NohemiSaint Mary'S Health Center Owqozy5880 [facility] [id number] Immature granulocytes (Bld) [#/Vol] 0.0 10*3/uL Normal 0.0-0.1 [facility]; [facility] Work Phone: Immature granulocytes/100 WBC (Bld) 0 % Normal [facility] Work Phone: Comment on above: PATIENT WAS FASTINGP ERFORMED BY: [facility]6370 [facility] [id number] Lymphocytes (Bld) [#/Vol] 4.1 {x10E3/uL} Abnormal 0.7-3.1 [facility] Work Phone: Comment on above: PATIENT WAS FASTINGP ERFORMED BY: [place] 7887970 [facility] [id number] Lymphocytes (Bld) [#/Vol] 4.1 10*3/uL Abnormal 0.7-3.1 [facility]; [facility] Work Phone: Lymphocytes/100 WBC (Bld) 28 % Normal [facility] Work Phone: Comment on above: PATIENT WAS FASTINGP ERFORMED BY: LabCo Ghwmng6440 [address] RoadDublin [place] [id number] MCH (RBC) [Entitic mass] 29.9 pg Normal 26.6-33.0 [facility] Work Phone: Comment on above: PATIENT WAS FASTINGP ERFORMED BY: [facility] Fbrvsz6[address]blin [place] [id number] MCHC (RBC) [Mass/Vol] 32.5 g/dL Normal 31.5-35.7 [facility] Internal Medicine Work Phone: Comment on above: PATIENT WAS FASTINGP ERFORMED BY: [facility] Vzglea8888 [address] [facility] HospitalDublin [place] [id number] MCV (RBC) [Entitic vol] 92 fL Normal 79-97 [facility] Work Phone: Comment on above: PATIENT WAS FASTINGP ERFORMED BY: LabSaint [facility] Jkyugh2250 [address] RoadDublin [place] [id number] Monocytes (Bld) [#/Vol] 0.9 {x10E3/uL} Normal 0.1-0.9 [facility] Work Phone: Comment on above: PATIENT WAS FASTINGP ERFORMED BY: [facility] Jdnraz1378 [address] RoadDublin [place] [id number] Monocytes (Bld) [#/Vol] 0.9 10*3/uL Normal 0.1-0.9 [facility]; [facility] Work Phone: Monocytes/100 WBC (Bld) 6 % Normal [facility] Work Phone: Comment on above: PATIENT WAS FASTINGP ERFORMED BY: [facility] Tzrojr6388 [address] RoadDublin [place] [id number] Neutrophils (Bld) [#/Vol] 9.4 {x10E3/uL} Abnormal 1.4-7.0 [facility] Work Phone: Comment on above: PATIENT WAS FASTINGP ERFORMED BY: TOBIN [facility]hemiSaint [facility] Pauasx2285 [facility] [id number] Neutrophils (Bld) [#/Vol] 9.4 10*3/uL Abnormal 1.4-7.0 [facility]; [facility] Work Phone: Neutrophils/100 WBC (Bld) 65 % Normal [facility] Work Phone: Comment on above: PATIENT WAS FASTINGP ERFORMED BY: Elana Gkewgo6201 [facility] [id number] Platelets (Bld) [#/Vol] 287 {x10E3/uL} Normal 150-379 [facility] Work Phone: Comment on above: PATIENT WAS FASTINGP ERFORMED BY: TOBIN Elana Sfyfgo1543 [facility] [id number] Platelets (Bld) [#/Vol] 287 10*3/uL Normal 150-379 [facility]; [facility] Work Phone: RBC (Bld) [#/Vol] 4.11 {x10E6/uL} Normal 3.77-5.28 [facility] Work Phone: Comment on above: PATIENT WAS FASTINGP ERFORMED BY: TOBIN Elana Tovuvy6771 [facility] [id number] RBC (Bld) [#/Vol] 4.11 10*6/uL Normal 3.77-5.28 Compr ensive Internal Medicine; [facility] Work Phone: WBC (Bld) [#/Vol] 14.6 {x10E3/uL} Abnormal 3.4-10.8 [facility] Work Phone: Comment on above: PATIENT WAS FASTINGP ERFORMED BY: No[facility]iSaint [facility] Sjrrvo6615 [facility] [id number] WBC (Bld) [#/Vol] 14.6 10*3/uL Abnormal 3.4-10.8 Compr ehensive Internal Medicine; [facility] Work Phone: LIPID PANEL ([id number])Ordered B y: Post Graduate Intern on 03-04-2017 Cholesterol [Mass/Vol] 135 mg/dL Normal 100-199 [facility] Work Phone: Comment on above: PATIENT WAS FASTINGP ERFORMED BY: TOBIN NohemiJudson Hgzqlg1232 [facility] [id number] Cholesterol in HDL [Mass/Vol] 61 mg/dL Normal [facility] Work Phone: Comment on above: PATIENT WAS FASTINGP ERFORMED BY: TOBIN [place] 6265470 [facility] [id number] Cholesterol in LDL [Mass/Vol] 49 mg/dL Normal 0-99 [facility] Work Phone: Comment on above: PATIENT WAS FASTINGP ERFORMED BY: TOBIN [facility]6370 [facility] [id number] Cholesterol in LDL/Cholesterol in HDL [Mass ratio] 0.8 {ratio_units} Normal 0.0-3.2 [facility] Work Phone: Comment on above: LDL/HDL Ratio Men Wo men 1/2 Avg.Risk 1.0 1.5 Avg.Risk 3.6 3.2 2X Avg.Risk 6.2 5.0 3X Avg.Risk 8.0 6.1 PATIENT WAS FASTINGP ERFORMED BY: TOBIN [facility]6370 [facility] [id number] Cholesterol in VLDL [Mass/Vol] 25 mg/dL Normal 5-40 [facility] Work Phone: Comment on above: PATIENT WAS FASTINGP ERFORMED BY: TOBIN [facility]6370 [facility] [id number] Triglyceride [Mass/Vol] 124 mg/dL Normal 0-149 [facility] Work Phone: Comment on above: PATIENT WAS FASTINGP ERFORMED BY: TOBIN [facility]Asc[facility]6370 [facility] [id number] METABOLIC PANEL, COMPREHENSI VE ([id number])Ordered By: Post Graduate Intern on 03-04-2017 Albumin [Mass/Vol] 4.3 g/dL Normal 3.5-5.5 Compre hensive Internal Medicine Work Phone: Comment on above: PATIENT WAS FASTINGP ERFORMED BY: TOBIN LabCojoseph Zvppau6484 [address] RoadDublin [place] [id number] Albumin/Globulin [Mass ratio] 1.9 {ratio} Normal 1.2-2.2 [facility] Work Phone: Comment on above: PATIENT WAS FASTINGP ERFORMED BY: TOBIN [facility] Nolaax9002 [address] RoadDublin [place] [id number] ALP [Catalytic activity/Vol] 29 [iU]/L Abnormal 39-117 [facility] Work Phone: Comment on above: PATIENT WAS FASTINGP ERFORMED BY: TOBIN [facility] Qdjqlo2086 [address] RoadDublin [place] [id number] ALP [Catalytic activity/Vol] 29 U/L Abnormal 39-117 [facility]; [facility] Work Phone: ALT [Catalytic activity/Vol] 9 [iU]/L Normal 0-32 [facility] Work Phone: Comment on above: PATIENT WAS FASTINGP ERFORMED BY: TOBIN [facility] Bbvmow8810 [address] RoadDublin [place] [id number] ALT [Catalytic activity/Vol] 9 U/L Normal 0-32 [facility]; [facility] Work Phone: AST [Catalytic activity/Vol] 13 [iU]/L Normal 0-40 [facility] Work Phone: Comment on above: PATIENT WAS FASTINGP ERFORMED BY: [facility] Twajun4884 [address] RoadDublin [place] [id number] AST [Catalytic activity/Vol] 13 U/L Normal 0-40 [facility]; [facility] Work Phone: Bilirubin [Mass/Vol] mg/dL Normal 0.0-1.2 [facility] Internal Medicine Work Phone: Comment on above: PATIENT WAS FASTINGP ERFORMED BY: TOBIN [facility] Jukptm7600 [address] RoadDublin [place] [id number] Bilirubin [Mass/Vol] mg/dL Normal 0.0-1.2 [facility]; [facility] Work Phone: Calcium [Mass/Vol] 9.3 mg/dL Normal 8.7-10.2 [facility] Internal Medicine Work Phone: Comment on above: PATIENT WAS FASTINGP ERFORMED BY: CB [facility] Buvmfq3787 [address] RoadDublin [place] [id number] Chloride [Moles/Vol] 101 mmol/L Normal 96-106 [facility] Servicesensive Internal [facility] Work Phone: Comment on above: PATIENT WAS FASTINGP ERFORMED BY: CB [facility] Hjcgrm9640 [address] RoadDublin [place] [id number] CO2 [Moles/Vol] 24 mmol/L Normal 18-29 [facility] Internal Medicine Work Phone: Comment on above: PATIENT WAS FASTINGP ERFORMED BY: [facility] Kmvsew6305 [address] RoadDublin [place] [id number] Creatinine [Mass/Vol] 0.80 mg/dL Normal 0.57-1.00 [facility] Internal Medicine Work Phone: Comment on above: PATIENT WAS FASTINGP ERFORMED BY: CB [facility] Mlcney6403 [address]Dublin [place] [id number] GFR/1.73 sq M predicted among blacks CKD-EPI (S/P/Bld) [Vol rate/Area] 104 mL/min/1.73 Normal [facility] Work Phone: Comment on above: PATIENT WAS FASTINGP ERFORMED BY: CB [facility] Nxkhhk1862 [address] RoadDublin [place] [id number] GFR/1.73 sq M predicted among non-blacks CKD-EPI (S/P/Bld) [Vol rate/Area] 90 mL/min/1.73 Normal [facility] Work Phone: Comment on above: PATIENT WAS FASTINGP ERFORMED BY: CB [facility] Wwxivg1129 [address] RoadDublin [place] [id number] Globulin (S) [Mass/Vol] 2.3 g/dL Normal 1.5-4.5 [facility] Work Phone: Comment on above: PATIENT WAS FASTINGP ERFORMED BY: TOBIN LabJudson FaganNjkcfg3[address] [facility] Centerin [place] [id number] Glucose [Mass/Vol] 90 mg/dL Normal 65-99 [facility] Internal Medicine Work Phone: Comment on above: PATIENT WAS FASTINGP ERFORMED BY: TOBIN LabJudson FaganYxjoht26[address] [facility] [id number] Potassium [Moles/Vol] 3.9 mmol/L Normal 3.5-5.2 [facility] Internal Medicine Work Phone: Comment on above: PATIENT WAS FASTINGP ERFORMED BY: TOBIN LabJudson FaganHsinwp8166 [facility] [id number] Protein [Mass/Vol] 6.6 g/dL Normal 6.0-8.5 [facility] Internal Medicine Work Phone: Comment on above: PATIENT WAS FASTINGP ERFORMED BY: TOBIN Faganlin6370 [facility] [id number] Sodium [Moles/Vol] 142 mmol/L Normal 134-144 [facility] Internal Medicine Work Phone: Comment on above: PATIENT WAS FASTINGP ERFORMED BY: TOBIN LabJudson FaganGvwgmc3083 [facility] [id number] Urea nitrogen [Mass/Vol] 13 mg/dL Normal 6-24 [facility] Internal Medicine Work Phone: Comment on above: PATIENT WAS FASTINGP ERFORMED BY: TOBIN LabJudson FaganSpmfkv7348 [facility] [id number] Urea nitrogen/Creatinine [Mass ratio] 16 mg/mg Normal 9-23 [facility] Internal Medicine Work Phone: Comment on above: PATIENT WAS FASTINGP ERFORMED BY: TOBIN Faganlin6370 [facility] [id number] Office Visit: est annualon 1 Documentation of current medications (procedure) Done Invalid Interpretation Code [facility][1] Fall risk assessment No Invalid Interpretation Code [facility][1] Tobacco smoking status NHIS Never Invalid Interpretation Code [facility][1] Tobacco use CPHS Current every day smoker Invali d Interpretation Code [facility] Office Visiton 01-25-2017 Hemoglobin presence in stool not done Invalid Interpretation Code [facility][1] Cancer Antigen (CA) 125 ([phone])Ordered By: Post Graduate Intern on 12-17-2016 Cancer Ag 125 Qn 5.8 U/mL Normal 0.0-38.1 Comprehe nsive Internal Medicine Work Phone: Comment on above: Jesus ECLIA methodol ogy PATIENT NOT FASTINGP ERFORMED BY: netFactor70 PurpleBricksGood [facility] [id number] Cancer Ag 125 Qn 5.8 [arb'U]/mL Normal 0.0-38.1 Comp rehensive Internal Medicine; [facility] Work Phone: URINE RANGEL CULTURE-IDENTIFICA TN ([id number])Ordered By: Post Graduate Intern on 12-03-2016 Bacteria identified Cx Nom (U) MUG Normal [facility] Work Phone: Comment on above: Mixed urogenital lilibeth ra6,000 Colonies/mL PATIENT NOT FASTINGP ERFORMED BY: LabUniversity of South Florida70 [address] [email or web address] Hope Hospital [id number] Information: SRC: Bacteria identified Cx Nom (U) Final report Normal [facility] Work Phone: Comment on above: PATIENT NOT FASTINGP ERFORMED BY: LabUniversity [facility] Florida70 [address] TheFix.[email or web address] [facility] Hospital [id number] Information: SRC:EDWARDO Urinalysis, Office ([id number])Or dered By: [place] on 12-03-2016 Bilirubin Ql (U) Negative Normal Comprehe nsive Internal Medicine Work Phone: Comment on above: trace of bloodnit an d leuk neg Bilirubin Ql (U) Negative Normal Comprehe nsive Internal Medicine; [facility] Work Phone: Glucose Test strip (U) [Mass/Vol] Negative Normal [facility] Work Phone: Comment on above: trace of bloodnit an d leuk neg Glucose Test strip (U) [Mass/Vol] Negative Normal [facility]; [facility] Work Phone: Hemoglobin Ql (U) Non Hemolyzed Trace Normal [facility] Work Phone: Comment on above: trace of bloodnit an d leuk neg Ketones Ql (U) Negative Normal Comprehens mona Internal Medicine Work Phone: Comment on above: trace of bloodnit an d leuk neg Ketones Ql (U) Negative Normal Comprehens [facility] Internal Medicine; [facility] Work Phone: Leukocyte esterase Test strip Ql (U) Negative Normal [facility] Work Phone: Comment on above: trace of bloodnit an d leuk neg Leukocyte esterase Test strip Ql (U) Negative Normal [facility]; [facility] Work Phone: Nitrite Ql (U) Negative Normal Comprehens [facility] Internal Medicine Work Phone: Comment on above: trace of bloodnit an d leuk neg Nitrite Ql (U) Negative Normal Comprehens [facility]; [facility] Work Phone: pH (U) 7 [pH] Normal [facility] Work Phone: Comment on above: trace of bloodnit an d leuk neg Protein Ql (U) Negative Normal Comprehens [facility] Internal Medicine Work Phone: Comment on above: trace of bloodnit an d leuk neg Protein Ql (U) Negative Normal Comprehens [facility]a Internal Medicine; [facility] Work Phone: Specific gravity (U) [Rel density] 1.020 1 Normal [facility] Work Phone: Comment on above: trace of bloodnit an d leuk neg Urobilinogen (24H U) [Mass/Time] Normal Normal [facility] Work Phone: Comment on above: trace of bloodnit an d leuk neg CALCIFIDIOL (48336) VIT D 25 Ordered By: Post Graduate Intern on 08-18-2016 25-Hydroxyvitamin D2+25-Hydroxyvitamin D3 [Mass/Vol] 42.6 ng/mL Normal 30.0-100.0 [facility] Work Phone: Comment on above: Vitamin D deficiency has been defined by the [place] of[place]icine and an Endocrine Society practice guideline as alevel of serum 25-OH vitamin D less than 20 ng/mL (1,2).The Endocrine Society went on to further define vitamin Dinsufficiency as a level between 21 and 29 ng/mL (2).1. IOM ([place] of Medicine). 2010. Dietary reference intakes for calcium and D. [place]: The National Academies Press.2. Danita MF, Bev VALENZUELA, Merry NEW, et al. Evaluation, treatment, and prevention of vitamin D deficiency: an Endocrine Society clinical practice guideline. JCEM. 2010; 96(7):1911-30. PATIENT WAS FASTINGP ERFORMED BY: CB [facility] Ryxnyo6473 [address] RoadDublin [place] [id number] CBC W/AUTO DIFF WBC (43330)O rdered By: Post Graduate Intern on 08-18-2016 Basophils (Bld) [#/Vol] 0.0 {x10E3/uL} Normal 0.0-0.2 [facility] Work Phone: Comment on above: PATIENT WAS FASTINGP ERFORMED BY: CB [facility] Kzhzmd1799 [address] RoadDublin [place] [id number]; fu 4- kf Basophils (Bld) [#/Vol] 0.0 10*3/uL Normal 0.0-0.2 [facility]; [facility] Work Phone: Basophils/100 WBC (Bld) 0 % Normal [facility] Work Phone: Comment on above: PATIENT WAS FASTINGP ERFORMED BY: CB [facility] Yfatva2284 [address] RoadDublin [place] [id number]; fu 4-28 kf Eosinophils (Bld) [#/Vol] 0.2 {x10E3/uL} Normal 0.0-0.4 [facility] Work Phone: Comment on above: PATIENT WAS FASTINGP ERFORMED BY: CB [facility] Afyahu4544 [address] RoadDublin [place] [id number]; fu 4-28 kf Eosinophils (Bld) [#/Vol] 0.2 10*3/uL Normal 0.0-0.4 [facility]; [facility] Work Phone: Eosinophils/100 WBC (Bld) 2 % Normal [facility] Work Phone: Comment on above: PATIENT WAS FASTINGP ERFORMED BY: TOBIN [facility] Ksxbtg1719 [address] RoadDublin [place] [id number]; 08-28 kf Erythrocyte distribution width (RBC) [Ratio] 14.6 % Normal 12.3-15.4 [facility] Work Phone: Comment on above: PATIENT WAS FASTINGP ERFORMED BY: CB [facility] Lkfyxm9255 [address] RoadDublin [place] [id number]; 08-28 kf Hematocrit (Bld) [Volume fraction] 41.5 % Normal 34.0-46.6 [facility] Work Phone: Comment on above: PATIENT WAS FASTINGP ERFORMED BY: CB [facility] Oowcse5899 [address] RoadDublin [place] [id number]; fu 08-28 kf Hemoglobin (Bld) [Mass/Vol] 13.6 g/dL Normal 11.1-15.9 [facility] Work Phone: Comment on above: PATIENT WAS FASTINGP ERFORMED BY: TOBIN [facility] Pahesr0488 [address] RoadDublin [place] [id number]; fu - kf Immature granulocytes (Bld) [#/Vol] 0.0 {x10E3/uL} Normal 0.0-0.1 [facility] Work Phone: Comment on above: PATIENT WAS FASTINGP ERFORMED BY: CB [facility] Ksiplk0825 [address] RoadDublin [place] [id number]; fu 4- kf Immature granulocytes (Bld) [#/Vol] 0.0 10*3/uL Normal 0.0-0.1 [facility]; [facility] Work Phone: Immature granulocytes/100 WBC (Bld) 0 % Normal [facility] Work Phone: Comment on above: PATIENT WAS FASTINGP ERFORMED BY: CB [facility] Ftadrv3496 [address] [facility] [id number]; 08-28 kf Lymphocytes (Bld) [#/Vol] 3.8 {x10E3/uL} Abnormal 0.7-3.1 [facility] Work Phone: Comment on above: PATIENT WAS FASTINGP ERFORMED BY: TOBIN Faganlin6370 [address] [facility] [id number]; 08-28 kf Lymphocytes (Bld) [#/Vol] 3.8 10*3/uL Abnormal 0.7-3.1 [facility]; [facility] Work Phone: Lymphocytes/100 WBC (Bld) 36 % Normal [facility] Work Phone: Comment on above: PATIENT WAS FASTINGP ERFORMED BY: TOBIN Alvarez6370 [facility] [id number]; 08-28 kf MCH (RBC) [Entitic mass] 29.3 pg Normal 26.6-33.0 [facility] Work Phone: Comment on above: PATIENT WAS FASTINGP ERFORMED BY: TOBIN Faganlin6370 [facility] [place] [id number]; 08-28 kf MCHC (RBC) [Mass/Vol] 32.8 g/dL Normal 31.5-35.7 [facility] prehensive Internal Medicine Work Phone: Comment on above: PATIENT WAS FASTINGP ERFORMED BY: TOBIN SongSaint [facility] Health Center Amvzbd0074 [facility] [id number]; 08-28 kf MCV (RBC) [Entitic vol] 89 fL Normal 79-97 [facility] Work Phone: Comment on above: PATIENT WAS FASTINGP ERFORMED BY: TOBIN NohemiJudson FaganHwxwot5319 [facility] [id number]; 08-28 kf Monocytes (Bld) [#/Vol] 0.6 {x10E3/uL} Normal 0.1-0.9 [facility] Work Phone: Comment on above: PATIENT WAS FASTINGP ERFORMED BY: TOBIN Alvarez[address] [facility]in [place] [id number]; fu 4- kf Monocytes (Bld) [#/Vol] 0.6 10*3/uL Normal 0.1-0.9 [facility]; [facility] Work Phone: Monocytes/100 WBC (Bld) 6 % Normal [facility] Work Phone: Comment on above: PATIENT WAS FASTINGP ERFORMED BY: LabAscension [facility]ess Hospital6370 Jenkins RoadBlowing Rock Hospitalin [place] [id number]; fu 4- kf Neutrophils (Bld) [#/Vol] 5.7 {x10E3/uL} Normal 1.4-7.0 [facility] Work Phone: Comment on above: PATIENT WAS FASTINGP ERFORMED BY: TOBIN [facility] Tbypjo9475 [address] [facility] [id number]; fu 4 kf Neutrophils (Bld) [#/Vol] 5.7 10*3/uL Normal 1.4-7.0 [facility]; [facility] Work Phone: Neutrophils/100 WBC (Bld) 56 % Normal [facility] Work Phone: Comment on above: PATIENT WAS FASTINGP ERFORMED BY: NohemiSaint [facility]'S Health Center Kphbhn8136 [address] [facility] [id number]; fu 4- kf Platelets (Bld) [#/Vol] 304 {x10E3/uL} Normal 150-379 [facility] Work Phone: Comment on above: PATIENT WAS FASTINGP ERFORMED BY: [facility]6[address] [facility] [id number]; fu 4- kf Platelets (Bld) [#/Vol] 304 10*3/uL Normal 150-379 [facility]; [facility] Work Phone: RBC (Bld) [#/Vol] 4.64 {x10E6/uL} Normal 3.77-5.28 [facility] Internal Medicine Work Phone: Comment on above: PATIENT WAS FASTINGP ERFORMED BY: TOBIN [facility] Ogygkm6692 [address] RoadDublin [place] [id number]; fu 08-28 kf RBC (Bld) [#/Vol] 4.64 10*6/uL Normal 3.77-5.28 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 Cholesterol [Mass/Vol] 167 mg/dL Normal 100-199 [facility] Work Phone: Comment on above: PATIENT WAS FASTINGP ERFORMED BY: TOBIN [facility] Tghxge0056 [address] [facility]in [place] [id number] Cholesterol in HDL [Mass/Vol] 59 mg/dL Normal [facility] Work Phone: Comment on above: PATIENT WAS FASTINGP ERFORMED BY: TOBIN LabCojoseph FaganAqhmzd8649 [address] [facility]in [place] [id number] Cholesterol in LDL [Mass/Vol] 75 mg/dL Normal 0-99 [facility] Work Phone: Comment on above: PATIENT WAS FASTINGP ERFORMED BY: TOBIN [facility] Koxumr1178 [address] RoadDublin [place] [id number] Cholesterol in LDL/Cholesterol in HDL [Mass ratio] 1.3 {ratio_units} Normal 0.0-3.2 [facility] Work Phone: Comment on above: LDL/HDL Ratio Men Wo men 1/2 Avg.Risk 1.0 1.5 Avg.Risk 3.6 3.2 2X Avg.Risk 6.2 5.0 3X Avg.Risk 8.0 6.1 PATIENT WAS FASTINGP ERFORMED BY: TOBIN [facility] Rahmca6272 [address] RoadDublin [place] [id number] Cholesterol in VLDL [Mass/Vol] 33 mg/dL Normal 5-40 [facility] Work Phone: Comment on above: PATIENT WAS FASTINGP ERFORMED BY: TOBIN [facility] Pxqddk7354 [address] RoadDublin [place] [id number] Triglyceride [Mass/Vol] 165 mg/dL Abnormal 0-149 [facility] Work Phone: Comment on above: PATIENT WAS FASTINGP ERFORMED BY: TOBIN [facility] Likehk7362 [address] RoadDublin [place] [id number] METABOLIC PANEL, COMPREHENSI VE ([id number])Ordered By: Post Graduate Intern on 08-18-2016 Albumin [Mass/Vol] 4.4 g/dL Normal 3.5-5.5 [facility] Internal Medicine Work Phone: Comment on above: PATIENT WAS FASTINGP ERFORMED BY: TOBIN [facility] Ukjshn9441 [address] RoadDublin [place] [id number] Albumin/Globulin [Mass ratio] 1.8 {ratio} Normal 1.2-2.2 [facility] Work Phone: Comment on above: PATIENT WAS FASTINGP ERFORMED BY: TOBIN [facility] Mxqkjt5946 [address] [facility] HospitalDublin [place] [id number] ALP [Catalytic activity/Vol] 36 [iU]/L Abnormal 39-117 [facility] Work Phone: Comment on above: PATIENT WAS FASTINGP ERFORMED BY: TOBIN [facility] Yvjfdq3453 [address] RoadDublin [place] [id number] ALP [Catalytic activity/Vol] 36 U/L Abnormal 39-117 [facility]; [facility] Work Phone: ALT [Catalytic activity/Vol] 11 [iU]/L Normal 0-32 [facility] Work Phone: Comment on above: PATIENT WAS FASTINGP ERFORMED BY: TOBIN [facility] Jjwjdu5570 [address] RoadDublin [place] [id number] ALT [Catalytic activity/Vol] 11 U/L Normal 0-32 [facility]; [facility] Work Phone: AST [Catalytic activity/Vol] 16 [iU]/L Normal 0-40 [facility] Internal Medicine Work Phone: Comment on above: PATIENT WAS FASTINGP ERFORMED BY: TOBIN [facility] Spzioc0888 [address] [facility] [id number] AST [Catalytic activity/Vol] 16 U/L Normal 0-40 [facility]; [facility] Work Phone: Bilirubin [Mass/Vol] mg/dL Normal 0.0-1.2 Comp rehensive Internal Medicine Work Phone: Comment on above: PATIENT WAS FASTINGP ERFORMED BY: TOBIN LabSaint [facility] Ilayhr8502 [address] [facility] [id number] Bilirubin [Mass/Vol] mg/dL Normal 0.0-1.2 Comp rehensive Internal Medicine; [facility] Internal Medicine Work Phone: Calcium [Mass/Vol] 10.0 mg/dL Normal 8.7-10.2 [facility] Internal Medicine Work Phone: Comment on above: PATIENT WAS FASTINGP ERFORMED BY: TOBIN LabSaint [facility] Hqwqjg3115 [facility] [id number] Chloride [Moles/Vol] 103 mmol/L Normal 96-106 Comp coshocton regional medical centerensive Internal Medicine Work Phone: Comment on above: PATIENT WAS FASTINGP ERFORMED BY: TOBIN [facility] Tiqjmg5420 [facility] [id number] CO2 [Moles/Vol] 23 mmol/L Normal 18-29 [facility] Internal Medicine Work Phone: Comment on above: PATIENT WAS FASTINGP ERFORMED BY: TOBIN [facility] Wcajmy1569 [facility] [id number] Creatinine [Mass/Vol] 0.83 mg/dL Normal 0.57-1.00 [facility] Work Phone: Comment on above: PATIENT WAS FASTINGP ERFORMED BY: TOBIN [facility]6370 [facility] CenterDublin [place] [id number] GFR/1.73 sq M predicted among blacks CKD-EPI (S/P/Bld) [Vol rate/Area] 99 mL/min/1.73 Normal [facility] Work Phone: Comment on above: PATIENT WAS FASTINGP ERFORMED BY: [facility]6[address] [facility] Centerin [place] [id number] GFR/1.73 sq M predicted among non-blacks CKD-EPI (S/P/Bld) [Vol rate/Area] 86 mL/min/1.73 Normal [facility] Work Phone: Comment on above: PATIENT WAS FASTINGP ERFORMED BY: [facility]6370 [facility] [place] [id number] Globulin (S) [Mass/Vol] 2.5 g/dL Normal 1.5-4.5 [facility] Internal Medicine Work Phone: Comment on above: PATIENT WAS FASTINGP ERFORMED BY: [facility]6370 [facility] [id number] Glucose [Mass/Vol] 89 mg/dL Normal 65-99 [facility] Internal Medicine Work Phone: Comment on above: PATIENT WAS FASTINGP ERFORMED BY: [facility]6370 [facility] [id number] Potassium [Moles/Vol] 4.6 mmol/L Normal 3.5-5.2 [facility] Work Phone: Comment on above: PATIENT WAS FASTINGP ERFORMED BY: [facility] Wldhhi7703 [address] [facility] Centerin [place] [id number] Protein [Mass/Vol] 6.9 g/dL Normal 6.0-8.5 [facility] Internal Medicine Work Phone: Comment on above: PATIENT WAS FASTINGP ERFORMED BY: [facility] Zvukij4105 [address] [facility]in [place] [id number] Sodium [Moles/Vol] 142 mmol/L Normal 134-144 [facility] Internal Medicine Work Phone: Comment on above: PATIENT WAS FASTINGP ERFORMED BY: [facility] Qdngeh2384 [facility] [id number] Urea nitrogen [Mass/Vol] 11 mg/dL Normal 6-24 [facility] Work Phone: Comment on above: PATIENT WAS FASTINGP ERFORMED BY: [facility] Qcuvwu6225 [facility] [id number] Urea nitrogen/Creatinine [Mass ratio] 13 mg/mg Normal 9-23 [facility] Work Phone: Comment on above: PATIENT WAS FASTINGP ERFORMED BY: [facility]6370 [facility] [id number] TSH ([id number])Ordered By: aYn m Horse Trainer on 08-18-2016 TSH Qn 2.340 {uIU/mL} Normal 0.450-4.50 0 [facility] Work Phone: Comment on above: PATIENT WAS FASTINGP ERFORMED BY: [facility]6370 [facility] [id number] CBC, Platelets & Auto Diff ( [id number])Ordered By: Post Graduate Intern on 04-10-2016 Basophils (Bld) [#/Vol] 0.0 {x10E3/uL} Normal 0.0-0.2 [facility] Work Phone: Comment on above: PATIENT NOT FASTINGP ERFORMED BY: [facility]6370 [facility] [id number] Basophils (Bld) [#/Vol] 0.0 10*3/uL Normal 0.0-0.2 [facility]; [facility] Work Phone: Basophils/100 WBC (Bld) 0 % Normal [facility] Work Phone: Comment on above: PATIENT NOT FASTINGP ERFORMED BY: [facility] Vkhjxg5989 [facility] [id number] Eosinophils (Bld) [#/Vol] 0.4 {x10E3/uL} Normal 0.0-0.4 [facility] Work Phone: Comment on above: PATIENT NOT FASTINGP ERFORMED BY: CB [facility] Cxakek4990 [address] RoadDublin [place] [id number] Eosinophils (Bld) [#/Vol] 0.4 10*3/uL Normal 0.0-0.4 [facility]; [facility] Work Phone: Eosinophils/100 WBC (Bld) 4 % Normal [facility] Work Phone: Comment on above: PATIENT NOT FASTINGP ERFORMED BY: CB [facility] Nffjgt6945 Jenkins RoadDublin [place] [id number] Erythrocyte distribution width (RBC) [Ratio] 14.4 % Normal 12.3-15.4 [facility] Work Phone: Comment on above: PATIENT NOT FASTINGP ERFORMED BY: CB [facility] Hxghzp4107 [address] RoadDublin [place] [id number] Hematocrit (Bld) [Volume fraction] 39.9 % Normal 34.0-46.6 [facility] Work Phone: Comment on above: PATIENT NOT FASTINGP ERFORMED BY: CB [facility] Pxgmkt7823 Jenkins RoadDublin [place] [id number] Hemoglobin (Bld) [Mass/Vol] 13.4 g/dL Normal 11.1-15.9 [facility] Work Phone: Comment on above: PATIENT NOT FASTINGP ERFORMED BY: CB [facility] [place]qua42[address] RoadDublin [place] [id number] Immature granulocytes (Bld) [#/Vol] 0.0 {x10E3/uL} Normal 0.0-0.1 [facility] Work Phone: Comment on above: PATIENT NOT FASTINGP ERFORMED BY: CB [facility] Sxlzuz0502 [address] RoadDublin [place] [id number] Immature granulocytes (Bld) [#/Vol] 0.0 10*3/uL Normal 0.0-0.1 [facility]; [facility] Work Phone: Immature granulocytes/100 WBC (Bld) 0 % Normal [facility] Work Phone: Comment on above: PATIENT NOT FASTINGP ERFORMED BY: TOBIN [facility] Tkpfqy3314 [address] RoadDublin [place] [id number] Lymphocytes (Bld) [#/Vol] 3.9 {x10E3/uL} Abnormal 0.7-3.1 [facility] Work Phone: Comment on above: PATIENT NOT FASTINGP ERFORMED BY: TOBIN [facility] Olqblq9432 [address] RoadDublin [place] [id number] Lymphocytes (Bld) [#/Vol] 3.9 10*3/uL Abnormal 0.7-3.1 [facility]; [facility] Work Phone: Lymphocytes/100 WBC (Bld) 41 % Normal [facility] Work Phone: Comment on above: PATIENT NOT FASTINGP ERFORMED BY: TOBIN [facility] Awepww2321 [address]in [place] [id number] MCH (RBC) [Entitic mass] 29.9 pg Normal 26.6-33.0 [facility] Work Phone: Comment on above: PATIENT NOT FASTINGP ERFORMED BY: TOBIN [facility] Smbpss1546 [address] Roadblin [place] [id number] MCHC (RBC) [Mass/Vol] 33.6 g/dL Normal 31.5-35.7 [facility] Work Phone: Comment on above: PATIENT NOT FASTINGP ERFORMED BY: TOBIN [facility] Qxwrtn1312 [address] [facility] Hospitalblin [place] [id number] MCV (RBC) [Entitic vol] 89 fL Normal 79-97 [facility] Work Phone: Comment on above: PATIENT NOT FASTINGP ERFORMED BY: TOBIN [facility] Ondocr3720 [address] RoadDublin [place] [id number] Monocytes (Bld) [#/Vol] 0.6 {x10E3/uL} Normal 0.1-0.9 [facility] Work Phone: Comment on above: PATIENT NOT FASTINGP ERFORMED BY: TOBIN [facility] Pcijqe2932 [address] RoadDublin [place] [id number] Monocytes (Bld) [#/Vol] 0.6 10*3/uL Normal 0.1-0.9 [facility]; [facility] Work Phone: Monocytes/100 WBC (Bld) 6 % Normal [facility] Work Phone: Comment on above: PATIENT NOT FASTINGP ERFORMED BY: CB [facility] Vmiijq9083 [address] RoadDublin [place] [id number] Neutrophils (Bld) [#/Vol] 4.7 {x10E3/uL} Normal 1.4-7.0 [facility] Work Phone: Comment on above: PATIENT NOT FASTINGP ERFORMED BY: CB [facility] Qmywec4877 [address] RoadDublin [place] [id number] Neutrophils (Bld) [#/Vol] 4.7 10*3/uL Normal 1.4-7.0 [facility]; [facility] Work Phone: Neutrophils/100 WBC (Bld) 49 % Normal [facility] Work Phone: Comment on above: PATIENT NOT FASTINGP ERFORMED BY: CB [facility] Zlqbqk4447 [address] RoadDublin [place] [id number] Platelets (Bld) [#/Vol] 272 {x10E3/uL} Normal 150-379 [facility] Work Phone: Comment on above: PATIENT NOT FASTINGP ERFORMED BY: CB [facility] Ywgqyk8619 [address] RoadDublin [place] [id number] Platelets (Bld) [#/Vol] 272 10*3/uL Normal 150-379 [facility]; [facility] Internal Medicine Work Phone: RBC (Bld) [#/Vol] 4.48 {x10E6/uL} Normal 3.77-5.28 [facility] Internal Medicine Work Phone: Comment on above: PATIENT NOT FASTINGP ERFORMED BY: CB [facility] Amuknr3237 [address] RoadDublin [place] [id number] RBC (Bld) [#/Vol] 4.48 10*6/uL Normal 3.77-5.28 [facility]; [facility] Work Phone: WBC (Bld) [#/Vol] 9.6 {x10E3/uL} Normal 3.4-10.8 [facility] Work Phone: Comment on above: PATIENT NOT FASTINGP ERFORMED BY: TOBIN [facility] Gxwtjd5309 [facility] [id number] WBC (Bld) [#/Vol] 9.6 10*3/uL Normal 3.4-10.8 [facility] Internal Medicine; [facility] Work Phone: AMYLASE (70259)Ordered By: Jase andrewm Horse Trainer on 04-07-2016 Amylase [Catalytic activity/Vol] 52 U/L Normal 25-115 [facility] Work Phone: Comment on above: Order Date: 04/07/16 Order Info: 0786-1 - CMPOrder Info: 1798-8 - AMYOrder Info: 3040-3 - LIPASEOrder Date: 04/07/16Order Info: 3040-3 - [facility]ASEWBelle[facility] Sonfzvzkum7895 [facility] [place], [address] LIPASE (34199)Ordered By: Navin mai Horse Trainer on 04-07-2016 Lipase [Catalytic activity/Vol] 257 U/L Normal 73-393 [facility] Work Phone: Comment on above: Order Date: 04/07/16 Order Info: 0786-1 - CMPOrder Info: 1798-8 - AMYOrder Info: 3040-3 - LIPASEOrder Date: 04/07/16Order Info: 3040-3 - [facility] Mkhpigtjso[address] [place], [address] URINE RANGEL CULTURE-ALEXANDRE COL C OUNT (11229)Ordered By: Post Graduate Intern on 04-07-2016 Bacteria identified Cx Nom (U) MUG Normal [facility] Work Phone: Comment on above: Mixed urogenital lilibeth ra1,000 Colonies/mL PATIENT NOT FASTINGP ERFORMED BY: CB [facility] Zgtxye0172 [facility] [id number] Information: SRC:EDWARDO Bacteria identified Cx Nom (U) Final report Normal [facility] Work Phone: Comment on above: PATIENT NOT FASTINGP ERFORMED BY: TOBIN [facility] Frtkdv6317 [facility] [id number] Information: SRC:EDWARDO Urinalysis, Office ([id number])on 04-07-2016 Bilirubin Ql (U) Negative Normal Comprehe nsive Internal Medicine Work Phone: Bilirubin Ql (U) Negative Normal Comprehe nsive Internal Medicine; [facility] Work Phone: Glucose Test strip (U) [Mass/Vol] Negative Normal [facility] Work Phone: Glucose Test strip (U) [Mass/Vol] Negative Normal [facility]; [facility] Work Phone: Hemoglobin Ql (U) Hemolyzed Trace Normal Co mprehensive Internal Medicine Work Phone: Ketones Ql (U) Negative Normal Comprehens mona Internal Medicine Work Phone: Ketones Ql (U) Negative Normal Comprehens [facility] Internal Medicine; [facility] Work Phone: Leukocyte esterase Test strip Ql (U) Negative Normal [facility] Work Phone: Leukocyte esterase Test strip Ql (U) Negative Normal [facility]; [facility] Work Phone: Nitrite Ql (U) Negative Normal Comprehens [facility] Internal Medicine Work Phone: Nitrite Ql (U) Negative Normal Comprehens [facility]; [facility] Work Phone: pH (U) 6 [pH] Abnormal [facility] Work Phone: Protein Ql (U) Negative Normal Comprehens [facility] Internal Medicine Work Phone: Protein Ql (U) Negative Normal Comprehens [facility] Internal Medicine; [facility] Work Phone: Specific gravity (U) [Rel density] 1.010 1 Normal [facility] Work Phone: Urobilinogen (24H U) [Mass/Time] Normal Normal [facility] Work Phone: URINE RANGEL CULTURE-ALEXANDRE COL C OUNT ([id number])Ordered By: Post Graduate Intern on 03-02-2016 Bacteria identified Cx Nom (U) CNSNSS Abnormal [facility] Work Phone: Comment on above: Coagulase negative S taphylococcus species, not Staphylococcussaprophyticus.Greater than 100,000 colony forming units per mLBased on susceptibility to oxacillin this isolate would besusceptible to:* Beta-lactam/beta-lactamase inhibitor combinations; such as: Amoxicillin-clavulanic acid Ampicillin-sulbactam* Antistaphylococcal cephems; such as: Cefaclor Cefuroxime* Antistaphylococcal carbapenems; such as: Imipenem MeropenemMost isolates of Staphylococcus sp. produce a beta-lactamase enzymerendering them resistant to penicillin. Please contact the laboratoryif penicillin is being considered for therapy. S = Susceptible; I = Intermediate; R = Resistant P = Positive; N = Negative MICS are expressed in micrograms per mL Antibiotic RSLT#1 RSLT#2 RSLT#3 RSLT#4Ciprofloxacin SGentamicin SLevofloxacin SLinezolid SNitrofurantoin SOxacillin SQuinupristin/Dalfopristin SRifampin STetracycline RTrimethoprim/Sulfa SVancomycin S PATIENT NOT FASTINGP ERFORMED BY: [employer]70 [facility] [id number] Information: SRC:EDWARDO Bacteria identified Cx Nom (U) Final report Abnormal [facility] Work Phone: Comment on above: PATIENT NOT FASTINGP ERFORMED BY: [employer] Mxlwcm6066 [facility] [id number] Information: SRC:EDWARDO Urinalysis, Office ([id number])on 03-02-2016 Bilirubin Ql (U) Negative Normal Comprehe nsive Internal Medicine Work Phone: Bilirubin Ql (U) Negative Normal Comprehe nsive Internal Medicine; [facility] Work Phone: Glucose Test strip (U) [Mass/Vol] Negative Normal [facility] Work Phone: Glucose Test strip (U) [Mass/Vol] Negative Normal [facility]; [facility] Work Phone: Hemoglobin Ql (U) Non Hemolyzed Moderate Normal [facility] Work Phone: Ketones Ql (U) Negative Normal Comprehens mona Internal Medicine Work Phone: Ketones Ql (U) Negative Normal Comprehens [facility] Internal Medicine; [facility] Work Phone: Leukocyte esterase Test strip Ql (U) Small Normal [facility] Work Phone: Nitrite Ql (U) Negative Normal Comprehens [facility] Internal Medicine Work Phone: Nitrite Ql (U) Negative Normal Comprehens [facility] Internal [facility]; [facility] Work Phone: pH (U) 7 [pH] Normal [facility] Work Phone: Protein Ql (U) Negative Normal Comprehens [facility] Internal Medicine Work Phone: Protein Ql (U) Negative Normal Comprehens [facility] Internal [facility]; [facility] Work Phone: Specific gravity (U) [Rel density] 1.015 1 Normal [facility] Work Phone: Urobilinogen (24H U) [Mass/Time] Normal Normal [facility] Work Phone: CALCIFIDIOL (02057) VIT D 25 Ordered By: Post Graduate Intern on 02-14-2016 25-Hydroxyvitamin D2+25-Hydroxyvitamin D3 [Mass/Vol] 62.9 ng/mL Normal 30.0-100.0 [facility] Work Phone: Comment on above: Vitamin D deficiency has been defined by the [place] of[place]icine and an Endocrine Society practice guideline as alevel of serum 25-OH vitamin D less than 20 ng/mL (1,2).The Endocrine Society went on to further define vitamin Dinsufficiency as a level between 21 and 29 ng/mL (2).1. IOM ([place] of Medicine). 2010. Dietary reference intakes for calcium and D. [place]: The National Academies Press.2. Bev Zaldivar, Merry NEW, et al. Evaluation, treatment, and prevention of vitamin D deficiency: an Endocrine Society clinical practice guideline. JCEM. 2010; 96(7):1911-30. PATIENT NOT FASTINGP ERFORMED BY: [employer] Abscmb7978 [address] Roadblin [place] [id number] HgA1C , Office ([id number])Ordere d By: Ruby Do on 07-24-2015 HbA1c (Bld) [Mass fraction] 5.4 % Normal 4.6 - 7.1 [facility] Work Phone: Rapid Flu ([phone] x 2)Ordered By: Isabel Guillen on 07-08-2015 FLUAV Ag IA Ql (Throat) Negative Normal [facility] Work Phone: FLUAV Ag IA Ql (Throat) Negative Normal [facility]; [facility] Work Phone: CALCIFIDIOL (59003) VIT D 25 Ordered By: Post Graduate Intern on 04-29-2015 25-Hydroxyvitamin D2+25-Hydroxyvitamin D3 [Mass/Vol] 43.4 ng/mL Normal 30.0-100.0 [facility] Work Phone: Comment on above: Vitamin D deficiency has been defined by the [place] of[place]icine and an Endocrine Society practice guideline as alevel of serum 25-OH vitamin D less than 20 ng/mL (1,2).The Endocrine Society went on to further define vitamin Dinsufficiency as a level between 21 and 29 ng/mL (2).1. IOM ([place] of Medicine). 2010. Dietary reference intakes for calcium and D. [place]: The National Academies Press.2. Danita METZ, Bev VALENZUELA, Merry NEW, et al. Evaluation, treatment, and prevention of vitamin D deficiency: an Endocrine Society clinical practice guideline. JCEM. 2010; 96(7):1911-30. PATIENT WAS FASTINGP ERFORMED BY: [facility] Skgtcm3146 [facility] [place] [id number] CBC W/AUTO DIFF WBC (43706)O rdered By: Post Graduate Intern on 04-29-2015 Basophils (Bld) [#/Vol] 0.0 {x10E3/uL} Normal 0.0-0.2 [facility] Work Phone: Comment on above: PATIENT WAS FASTINGP ERFORMED BY: TOBIN [place] 6265470 [facility] [id number] Information: [id number] Basophils (Bld) [#/Vol] 0.0 10*3/uL Normal 0.0-0.2 [facility]; [facility] Work Phone: Basophils/100 WBC (Bld) 0 % Normal [facility] Work Phone: Comment on above: PATIENT WAS FASTINGP ERFORMED BY: [address] [id number] Information: [id number] Eosinophils (Bld) [#/Vol] 0.3 {x10E3/uL} Normal 0.0-0.4 [facility] Work Phone: Comment on above: PATIENT WAS FASTINGP ERFORMED BY: [address] [id number] Information: [id number] Eosinophils (Bld) [#/Vol] 0.3 10*3/uL Normal 0.0-0.4 [facility]; [facility] Work Phone: Eosinophils/100 WBC (Bld) 3 % Normal [facility] Work Phone: Comment on above: PATIENT WAS FASTINGP ERFORMED BY: [address] [id number] Information: [id number] Erythrocyte distribution width (RBC) [Ratio] 13.8 % Normal 12.3-15.4 [facility] Work Phone: Comment on above: PATIENT WAS FASTINGP ERFORMED BY: [place] 7887970 [facility] [id number] Information: [id number] Hematocrit (Bld) [Volume fraction] 44.3 % Normal 34.0-46.6 [facility] Work Phone: Comment on above: PATIENT WAS FASTINGP ERFORMED BY: TOBIN [address] [id number] Information: [id number] Hemoglobin (Bld) [Mass/Vol] 14.6 g/dL Normal 11.1-15.9 [facility] Work Phone: Comment on above: PATIENT WAS FASTINGP ERFORMED BY: [address] [id number] Information: [id number] Immature granulocytes (Bld) [#/Vol] 0.0 {x10E3/uL} Normal 0.0-0.1 [facility] Work Phone: Comment on above: PATIENT WAS FASTINGP ERFORMED BY: [address] [id number] Information: [id number] Immature granulocytes (Bld) [#/Vol] 0.0 10*3/uL Normal 0.0-0.1 [facility]; [facility] Work Phone: Immature granulocytes/100 WBC (Bld) 0 % Normal [facility] Work Phone: Comment on above: PATIENT WAS FASTINGP ERFORMED BY: [place] 7887970 [facility] [id number] Information: [id number] Lymphocytes (Bld) [#/Vol] 3.4 {x10E3/uL} Abnormal 0.7-3.1 [facility] Work Phone: Comment on above: PATIENT WAS FASTINGP ERFORMED BY: [address] [id number] Information: [id number] Lymphocytes (Bld) [#/Vol] 3.4 10*3/uL Abnormal 0.7-3.1 [facility]; [facility] Work Phone: Lymphocytes/100 WBC (Bld) 34 % Normal [facility] Work Phone: Comment on above: PATIENT WAS FASTINGP ERFORMED BY: TOBIN [address] [id number] Information: [id number] MCH (RBC) [Entitic mass] 29.7 pg Normal 26.6-33.0 [facility] Work Phone: Comment on above: PATIENT WAS FASTINGP ERFORMED BY: [address] [id number] Information: [id number] MCHC (RBC) [Mass/Vol] 33.0 g/dL Normal 31.5-35.7 [facility] Internal Medicine Work Phone: Comment on above: PATIENT WAS FASTINGP ERFORMED BY: [address] [id number] Information: [id number] MCV (RBC) [Entitic vol] 90 fL Normal 79-97 [facility] Work Phone: Comment on above: PATIENT WAS FASTINGP ERFORMED BY: TOBIN [address] [id number] Information: [id number] Monocytes (Bld) [#/Vol] 0.5 {x10E3/uL} Normal 0.1-0.9 [facility] Work Phone: Comment on above: PATIENT WAS FASTINGP ERFORMED BY: [address] [id number] Information: [id number] Monocytes (Bld) [#/Vol] 0.5 10*3/uL Normal 0.1-0.9 [facility]; [facility] Work Phone: Monocytes/100 WBC (Bld) 5 % Normal [facility] Work Phone: Comment on above: PATIENT WAS FASTINGP ERFORMED BY: [address] [id number] Information: [id number] Neutrophils (Bld) [#/Vol] 5.9 {x10E3/uL} Normal 1.4-7.0 [facility] Work Phone: Comment on above: PATIENT WAS FASTINGP ERFORMED BY: TOBIN Alvarez6370 [facility] [id number] Information: [id number] Neutrophils (Bld) [#/Vol] 5.9 10*3/uL Normal 1.4-7.0 [facility]; [facility] Work Phone: Neutrophils/100 WBC (Bld) 58 % Normal [facility] Work Phone: Comment on above: PATIENT WAS FASTINGP ERFORMED BY: TOBIN Alvarez6370 [facility] [id number] Information: [id number] Platelets (Bld) [#/Vol] 283 {x10E3/uL} Normal 150-379 [facility] Work Phone: Comment on above: PATIENT WAS FASTINGP ERFORMED BY: TOBIN Faganlin6370 [facility] [id number] Information: [id number] Platelets (Bld) [#/Vol] 283 10*3/uL Normal 150-379 [facility]; [facility] Work Phone: RBC (Bld) [#/Vol] 4.91 {x10E6/uL} Normal 3.77-5.28 [facility] Internal Medicine Work Phone: Comment on above: PATIENT WAS FASTINGP ERFORMED BY: TOBIN [place] 6265470 [facility] [id number] Information: [id number] RBC (Bld) [#/Vol] 4.91 10*6/uL Normal 3.77-5.28 [facility] Internal Medicine; [facility] Work Phone: WBC (Bld) [#/Vol] 10.1 {x10E3/uL} Normal 3.4-10.8 [facility] Internal Medicine Work Phone: Comment on above: PATIENT WAS FASTINGP ERFORMED BY: TOBIN Madhavi Alvarez6370 [facility] [id number] Information: [id number] WBC (Bld) [#/Vol] 10.1 10*3/uL Normal 3.4-10.8 [facility] Internal Medicine; [facility] Work Phone: LIPID PANEL ([id number])Ordered B y: Post Graduate Intern on 04-29-2015 Cholesterol [Mass/Vol] 147 mg/dL Normal 100-199 [facility] Work Phone: Comment on above: PATIENT WAS FASTINGP ERFORMED BY: TOBIN Elanajoseph Gquuay0716 [facility] [id number] Cholesterol in HDL [Mass/Vol] 67 mg/dL Normal [facility] Work Phone: Comment on above: According to ATP-III Guidelines, HDL-C >59 mg/dL is considered anegative risk factor for CHD. PATIENT WAS FASTINGP ERFORMED BY: TOBIN [employer] Qebpfo4836 [address] TheFix.comGood Hope Hospital [id number] Cholesterol in LDL [Mass/Vol] 67 mg/dL Normal 0-99 [facility] Work Phone: Comment on above: PATIENT WAS FASTINGP ERFORMED BY: TOBIN LabH-art (WPP) Zdknjv4243 [facility] [id number] Cholesterol in LDL/Cholesterol in HDL [Mass ratio] 1.0 {ratio_units} Normal 0.0-3.2 [facility] Work Phone: Comment on above: LDL/HDL Ratio Men Wo men 1/2 Avg.Risk 1.0 1.5 Avg.Risk 3.6 3.2 2X Avg.Risk 6.2 5.0 3X Avg.Risk 8.0 6.1 PATIENT WAS FASTINGP ERFORMED BY: TOBIN LabH-art (WPP) Aimixl5007 [facility] [id number] Cholesterol in VLDL [Mass/Vol] 13 mg/dL Normal 5-40 [facility] Work Phone: Comment on above: PATIENT WAS FASTINGP ERFORMED BY: TOBIN [facility] Cvqrbk9934 Jenkins RoadDublin [place] [id number] Triglyceride [Mass/Vol] 66 mg/dL Normal 0-149 [facility] Work Phone: Comment on above: PATIENT WAS FASTINGP ERFORMED BY: TOBIN [facility] Qpsugd0214 [address] RoadDublin [place] [id number] METABOLIC PANEL, COMPREHENSI VE ([id number])Ordered By: Post Graduate Intern on 04-29-2015 Albumin [Mass/Vol] 4.5 g/dL Normal 3.5-5.5 [facility] Medicine Work Phone: Comment on above: PATIENT WAS FASTINGP ERFORMED BY: TOBIN [facility] Bdwhlg4100 [address] RoadDublin [place] [id number] Albumin/Globulin [Mass ratio] 2.0 {ratio} Normal 1.1-2.5 [facility] Work Phone: Comment on above: PATIENT WAS FASTINGP ERFORMED BY: TOBIN [facility] Byypan1024 [address] RoadDublin [place] [id number] ALP [Catalytic activity/Vol] 37 [iU]/L Abnormal 39-117 [facility] Work Phone: Comment on above: PATIENT WAS FASTINGP ERFORMED BY: TOBIN [facility] Uqjcdu7740 [address] RoadDublin [place] [id number] ALP [Catalytic activity/Vol] 37 U/L Abnormal 39-117 [facility]; [facility] Work Phone: ALT [Catalytic activity/Vol] 10 [iU]/L Normal 0-32 [facility] Work Phone: Comment on above: PATIENT WAS FASTINGP ERFORMED BY: CB [facility] Oktxcg2065 [address] Roadblin [place] [id number] ALT [Catalytic activity/Vol] 10 U/L Normal 0-32 [facility]; [facility] Work Phone: AST [Catalytic activity/Vol] 14 [iU]/L Normal 0-40 [facility] Work Phone: Comment on above: PATIENT WAS FASTINGP ERFORMED BY: CB [facility] Xglpcr1893 [address] RoadDublin [place] [id number] AST [Catalytic activity/Vol] 14 U/L Normal 0-40 [facility]; [facility] Work Phone: Bilirubin [Mass/Vol] 0.2 mg/dL Normal 0.0-1.2 [facility] rehensive Internal Medicine Work Phone: Comment on above: PATIENT WAS FASTINGP ERFORMED BY: CB [facility] Ocrilm6322 [address] RoadDublin [place] [id number] Calcium [Mass/Vol] 9.4 mg/dL Normal 8.7-10.2 [facility] Internal Medicine Work Phone: Comment on above: PATIENT WAS FASTINGP ERFORMED BY: TOBIN [facility] Zqwyfg3750 [address] RoadDublin [place] [id number] Chloride [Moles/Vol] 105 mmol/L Normal 97-108 [facility] Work Phone: Comment on above: PATIENT WAS FASTINGP ERFORMED BY: CB [facility] Kekpio0724 [address] RoadDublin [place] [id number] CO2 [Moles/Vol] 23 mmol/L Normal 18-29 [facility] Internal Medicine Work Phone: Comment on above: PATIENT WAS FASTINGP ERFORMED BY: [facility] Axbtwk1907 [address] RoadDublin [place] [id number] Creatinine [Mass/Vol] 0.75 mg/dL Normal 0.57-1.00 [facility] Internal Medicine Work Phone: Comment on above: PATIENT WAS FASTINGP ERFORMED BY: CB [facility] Xknnel0480 [address] RoadDublin [place] [id number] GFR/1.73 sq M predicted among blacks CKD-EPI (S/P/Bld) [Vol rate/Area] 113 mL/min/1.73 Normal [facility] Internal Medicine Work Phone: Comment on above: PATIENT WAS FASTINGP ERFORMED BY: CB [facility] Xatvcn8514 [address] RoadDublin [place] [id number] GFR/1.73 sq M predicted among non-blacks CKD-EPI (S/P/Bld) [Vol rate/Area] 98 mL/min/1.73 Normal [facility] Internal Medicine Work Phone: Comment on above: PATIENT WAS FASTINGP ERFORMED BY: TOBIN LabJudson FaganTrbyop4722 [address] RoadDublin [place] [id number] Globulin (S) [Mass/Vol] 2.3 g/dL Normal 1.5-4.5 [facility] Internal Medicine Work Phone: Comment on above: PATIENT WAS FASTINGP ERFORMED BY: TOBIN [facility] Kvjrii0559 [address] RoadDublin [place] [id number] Glucose [Mass/Vol] 86 mg/dL Normal 65-99 [facility] Internal Medicine Work Phone: Comment on above: PATIENT WAS FASTINGP ERFORMED BY: TOBIN [facility]Saint [facility] Gabovx5230 [address] RoadDublin [place] [id number] Potassium [Moles/Vol] 4.4 mmol/L Normal 3.5-5.2 [facility] Internal Medicine Work Phone: Comment on above: PATIENT WAS FASTINGP ERFORMED BY: TOBIN LabJudson FaganJbmxki8508 [address] RoadDublin [place] [id number] Protein [Mass/Vol] 6.8 g/dL Normal 6.0-8.5 [facility] Internal Medicine Work Phone: Comment on above: PATIENT WAS FASTINGP ERFORMED BY: TOBIN LabSaint [facility] Utybhe3464 [address] RoadDublin [place] [id number] Sodium [Moles/Vol] 142 mmol/L Normal 134-144 [facility] Internal Medicine Work Phone: Comment on above: PATIENT WAS FASTINGP ERFORMED BY: TOBIN [facility] Fsrmpu9850 [address] RoadDublin [place] [id number] Urea nitrogen [Mass/Vol] 11 mg/dL Normal 6-24 [facility] Internal Medicine Work Phone: Comment on above: PATIENT WAS FASTINGP ERFORMED BY: TOBIN [facility] Cimhhi9001 [address] RoadDublin [place] [id number] Urea nitrogen/Creatinine [Mass ratio] 15 mg/mg Normal 9-23 [facility] Work Phone: Comment on above: PATIENT WAS FASTINGP ERFORMED BY: TOBIN Faganlin6370 [address] RoadDublin [place] [id number] MICROALBUMINOrdered By: [employer] em Horse Trainer on 04-29-2015 Albumin DL <= 20 mg/L (U) [Mass/Vol] mg/dL Normal 0.0-17.0 [facility] Work Phone: Comment on above: PATIENT WAS FASTINGP ERFORMED BY: TOBIN Alvarez6370 [address] RoadDublin [place] [id number] Albumin DL <= 20 mg/L (U) [Mass/Vol] mg/dL Normal 0.0-17.0 [facility]; [facility] Work Phone: Albumin/Creatinine (U) [Mass ratio] <6.3 Normal 0.0-30.0 [facility] Work Phone: Comment on above: PATIENT WAS FASTINGP ERFORMED BY: TOBIN Faganlin6370 [address] RoadDublin [place] [id number] Creatinine (U) [Mass/Vol] 47.3 mg/dL Normal 15.0-278.0 [facility] Work Phone: Comment on above: PATIENT WAS FASTINGP ERFORMED BY: TOBIN Alvarez6370 [address] RoadDublin [place] [id number] TSH ([id number])Ordered By: Yan Horse Trainer on 04-29-2015 TSH Qn 1.660 {uIU/mL} Normal 0.450-4.50 0 [facility] Work Phone: Comment on above: PATIENT WAS FASTINGP ERFORMED BY: TOBIN LabJudson FaganXhicry2418 [address] RoadDublin [place] [id number] URINALYSIS, W/ MICRO ([id number]) Ordered By: Post Graduate Intern on 04-29-2015 Appearance (U) Clear Normal Comprehens mona Internal Medicine Work Phone: Comment on above: PATIENT WAS FASTINGP ERFORMED BY: TOBIN Faganlin6370 [address] RoadDublin [place] [id number] Bilirubin Ql (U) Negative Normal Comprehe nsive Internal Medicine Work Phone: Comment on above: PATIENT WAS FASTINGP ERFORMED BY: TOBIN Faganlin6370 [address] RoadDublin [place] [id number] Bilirubin Ql (U) Negative Normal Comprehe nsive Internal Medicine; [facility] Work Phone: Color (U) Yellow Normal [facility] Work Phone: Comment on above: PATIENT WAS FASTINGP ERFORMED BY: TOBIN Faganlin6370 [address] RoadDublin [place] [id number] Glucose Ql (U) Negative Normal Comprehens mona Internal Medicine Work Phone: Comment on above: PATIENT WAS FASTINGP ERFORMED BY: TOBIN Faganlin6370 [address] RoadDublin [place] [id number] Glucose Ql (U) Negative Normal Comprehens mona [facility]; [facility] Work Phone: Hemoglobin Ql (U) Negative Normal Compreh ensive Internal Medicine Work Phone: Comment on above: PATIENT WAS FASTINGP ERFORMED BY: TOBIN Alvarez6370 [address] RoadDublin [place] [id number] Hemoglobin Ql (U) Negative Normal Compreh ensive Internal Medicine; [facility] Work Phone: Ketones Ql (U) Negative Normal Comprehens mona [facility] Work Phone: Comment on above: PATIENT WAS FASTINGP ERFORMED BY: TOBIN Faganlin6370 [address]Dublin [place] [id number] Ketones Ql (U) Negative Normal Comprehens mona [facility]; [facility] Work Phone: Leukocyte esterase Test strip Ql (U) Negative Normal [facility] Work Phone: Comment on above: PATIENT WAS FASTINGP ERFORMED BY: TOBIN Faganlin6370 [address] RoadDublin [place] [id number] Leukocyte esterase Test strip Ql (U) Negative Normal [facility]; [facility] Work Phone: Microscopic observation LM Nom (Urine sed) MICRON Normal [facility] Work Phone: Comment on above: Microscopic follows if indicated. PATIENT WAS FASTINGP ERFORMED BY: TOBIN [facility] Sfrwco5505 [address] RoadDublin [place] [id number] Microscopic observation LM Nom (Urine sed) See below: Normal [facility] Work Phone: Comment on above: Microscopic was ashley cated and was performed. PATIENT WAS FASTINGP ERFORMED BY: TOBIN [facility] Nkypso1891 [address] Roadblin [place] [id number] Nitrite Ql (U) Negative Normal Comprehens mona [facility] Work Phone: Comment on above: PATIENT WAS FASTINGP ERFORMED BY: TOBIN LabCojoseph FaganXrbskg5696 [address] [place] Centerin [place] [id number] Nitrite Ql (U) Negative Normal Comprehens [facility]; [facility] Work Phone: pH (U) 7.0 [pH] Normal 5.0-7.5 [facility] Work Phone: Comment on above: PATIENT WAS FASTINGP ERFORMED BY: TOBIN LabJudson FaganZcvplt3941 [address] [facility] [id number] Protein Ql (U) Negative Normal Comprehens mona Internal Medicine Work Phone: Comment on above: PATIENT WAS FASTINGP ERFORMED BY: TOBIN [facility] Tbnbiq1622 [address] [facility] [id number] Protein Ql (U) Negative Normal Comprehens mona [facility]; [facility] Work Phone: Specific gravity (U) [Rel density] 1.015 1 Normal 1.005-1.03 0 [facility] Work Phone: Comment on above: PATIENT WAS FASTINGP ERFORMED BY: TOBIN [facility] Dquxmi0578 [address] [place]in [place] [id number] Urobilinogen (U) [Mass/Vol] 0.2 mg/dL Normal 0.2-1.0 [facility]; [facility] Work Phone: Urobilinogen Test strip (U) [Mass/Vol] 0.2 mg/dL Normal 0.2-1.0 Comprehensi Internal Medicine Work Phone: Comment on above: PATIENT WAS FASTINGP ERFORMED BY: Ykone Otjepj5006 [facility] [id number] CALCIFEDIOL ([id number])Ordered B y: Post Graduate Intern on 06-25-2014 25-Hydroxyvitamin D2+25-Hydroxyvitamin D3 [Mass/Vol] 27.2 ng/mL Abnormal 30.0-100.0 [facility] Work Phone: Comment on above: Vitamin D deficiency has been defined by the [place] of[facility] Centerc[facility] and an Endocrine Society practice guideline as alevel of serum 25-OH vitamin D less than 20 ng/mL (1,2).The Endocrine Society went on to further define vitamin Dinsufficiency as a level between 21 and 29 ng/mL (2).1. IOM ([place] of Medicine). 2010. Dietary reference intakes for calcium and D. [place]: The National Academies Press.2. Danita MF, Bev VALENZUELA, Merry NEW, et al. Evaluation, treatment, and prevention of vitamin D deficiency: an Endocrine Society clinical practice guideline. JCEM. 2010; 96(7):1911-30. PATIENT WAS FASTINGP ERFORMED BY: [place] [employer]6370 JenkinsN[facility] [id number] CBC WITH MANUAL DIFF ([id number]) Ordered By: Post Graduate Intern on 06-25-2014 Basophils (Bld) [#/Vol] 0.0 {x10E3/uL} Normal 0.0-0.2 [facility] Work Phone: Comment on above: PATIENT WAS FASTINGP ERFORMED BY: [employer] Qongzu3702 [facility] [id number] Information: [id number] Basophils (Bld) [#/Vol] 0.0 10*3/uL Normal 0.0-0.2 [facility]; [facility] Work Phone: Basophils/100 WBC (Bld) 0 % Normal [facility] Work Phone: Comment on above: PATIENT WAS FASTINGP ERFORMED BY: [facility]6370 [facility] [id number] Information: [id number] Eosinophils (Bld) [#/Vol] 0.2 {x10E3/uL} Normal 0.0-0.4 [facility] Work Phone: Comment on above: PATIENT WAS FASTINGP ERFORMED BY: [address] [id number] Information: [id number] Eosinophils (Bld) [#/Vol] 0.2 10*3/uL Normal 0.0-0.4 [facility]; [facility] Work Phone: Eosinophils/100 WBC (Bld) 2 % Normal [facility] Work Phone: Comment on above: PATIENT WAS FASTINGP ERFORMED BY: [address] [id number] Information: [id number] Erythrocyte distribution width (RBC) [Ratio] 14.0 % Normal 12.3-15.4 [facility] Work Phone: Comment on above: PATIENT WAS FASTINGP ERFORMED BY: [address] [id number] Information: [id number] Hematocrit (Bld) [Volume fraction] 47.3 % Abnormal 34.0-46.6 [facility] Work Phone: Comment on above: PATIENT WAS FASTINGP ERFORMED BY: [facility]6370 [facility] [id number] Information: [id number] Hemoglobin (Bld) [Mass/Vol] 15.4 g/dL Normal 11.1-15.9 [facility] Work Phone: Comment on above: PATIENT WAS FASTINGP ERFORMED BY: [place] 7887970 [facility] [id number] Information: [id number] Immature granulocytes (Bld) [#/Vol] 0.0 {x10E3/uL} Normal 0.0-0.1 [facility] Work Phone: Comment on above: PATIENT WAS FASTINGP ERFORMED BY: [facility]Asc[facility]6370 [facility] [id number] Information: [id number] Immature granulocytes (Bld) [#/Vol] 0.0 10*3/uL Normal 0.0-0.1 [facility]; [facility] Work Phone: Immature granulocytes/100 WBC (Bld) 0 % Normal [facility] Work Phone: Comment on above: PATIENT WAS FASTINGP ERFORMED BY: LabAsc[facility]6370 [facility] [id number] Information: [id number] Lymphocytes (Bld) [#/Vol] 2.6 {x10E3/uL} Normal 0.7-3.1 [facility] Work Phone: Comment on above: PATIENT WAS FASTINGP ERFORMED BY: [facility]6370 [facility] [id number] Information: [id number] Lymphocytes (Bld) [#/Vol] 2.6 10*3/uL Normal 0.7-3.1 [facility]; [facility] Work Phone: Lymphocytes/100 WBC (Bld) 27 % Normal [facility] Work Phone: Comment on above: PATIENT WAS FASTINGP ERFORMED BY: [facility]6370 [facility] [id number] Information: [id number] MCH (RBC) [Entitic mass] 29.0 pg Normal 26.6-33.0 [facility] Work Phone: Comment on above: PATIENT WAS FASTINGP ERFORMED BY: [facility]Asc[facility]6370 [facility] [id number] Information: [id number] MCHC (RBC) [Mass/Vol] 32.6 g/dL Normal 31.5-35.7 [facility] prehensive Internal Medicine Work Phone: Comment on above: PATIENT WAS FASTINGP ERFORMED BY: TOBIN [place] 6265470 [facility] [id number] Information: [id number] MCV (RBC) [Entitic vol] 89 fL Normal 79-97 [facility] Work Phone: Comment on above: PATIENT WAS FASTINGP ERFORMED BY: [address] [id number] Information: [id number] Monocytes (Bld) [#/Vol] 0.5 {x10E3/uL} Normal 0.1-0.9 [facility] Work Phone: Comment on above: PATIENT WAS FASTINGP ERFORMED BY: [address] [id number] Information: [id number] Monocytes (Bld) [#/Vol] 0.5 10*3/uL Normal 0.1-0.9 [facility]; [facility] Work Phone: Monocytes/100 WBC (Bld) 5 % Normal [facility] Work Phone: Comment on above: PATIENT WAS FASTINGP ERFORMED BY: [address] [id number] Information: [id number] Neutrophils (Bld) [#/Vol] 6.2 {x10E3/uL} Normal 1.4-7.0 [facility] Work Phone: Comment on above: PATIENT WAS FASTINGP ERFORMED BY: [facility]6370 [facility] [id number] Information: [id number] Neutrophils (Bld) [#/Vol] 6.2 10*3/uL Normal 1.4-7.0 [facility]; [facility] Work Phone: Neutrophils/100 WBC (Bld) 66 % Normal [facility] Work Phone: Comment on above: PATIENT WAS FASTINGP ERFORMED BY: TOBIN Huitron Gzmmvu0767 [facility] [id number] Information: [id number] Platelets (Bld) [#/Vol] 291 {x10E3/uL} Normal 150-379 [facility] Work Phone: Comment on above: PATIENT WAS FASTINGP ERFORMED BY: [place] 7887970 [facility] [id number] Information: [id number] Platelets (Bld) [#/Vol] 291 10*3/uL Normal 150-379 [facility]; [facility] Work Phone: RBC (Bld) [#/Vol] 5.31 {x10E6/uL} Abnormal 3.77-5.28 [facility] Internal Medicine Work Phone: Comment on above: PATIENT WAS FASTINGP ERFORMED BY: [facility]6370 [facility] [id number] Information: [id number] RBC (Bld) [#/Vol] 5.31 10*6/uL Abnormal 3.77-5.28 [facility] Internal Medicine; [facility] Work Phone: WBC (Bld) [#/Vol] 9.7 {x10E3/uL} Normal 3.4-10.8 [facility] Internal Medicine Work Phone: Comment on above: PATIENT WAS FASTINGP ERFORMED BY: [facility]6370 [facility] [id number] Information: [id number] WBC (Bld) [#/Vol] 9.7 10*3/uL Normal 3.4-10.8 [facility]; [facility] Work Phone: Lipid Panel ([id number])Ordered B y: Post Graduate Intern on 06-25-2014 Cholesterol [Mass/Vol] 145 mg/dL Normal 100-199 [facility] Work Phone: Comment on above: PATIENT WAS FASTINGP ERFORMED BY: TOBIN [facility] Lkebzr6960 [address] TheFix.comGood [facility] Hospital [id number] Cholesterol in HDL [Mass/Vol] 59 mg/dL Normal [facility] Work Phone: Comment on above: According to ATP-III Guidelines, HDL-C >59 mg/dL is considered anegative risk factor for CHD. PATIENT WAS FASTINGP ERFORMED BY: LabAsc[facility]6[address] TheFix.comGood [facility] Hospital [id number] Cholesterol in LDL [Mass/Vol] 75 mg/dL Normal 0-99 [facility] Work Phone: Comment on above: PATIENT WAS FASTINGP ERFORMED BY: [facility]Saint [facility] Wxxjem6420 [address] TheFix.comGood Hope Hospital [id number] Cholesterol in LDL/Cholesterol in HDL [Mass ratio] 1.3 {ratio_units} Normal 0.0-3.2 [facility] Work Phone: Comment on above: LDL/HDL Ratio Men Wo men 1/2 Avg.Risk 1.0 1.5 Avg.Risk 3.6 3.2 2X Avg.Risk 6.2 5.0 3X Avg.Risk 8.0 6.1 PATIENT WAS FASTINGP ERFORMED BY: [facility]6370 [facility] [id number] Cholesterol in VLDL [Mass/Vol] 11 mg/dL Normal 5-40 [facility] Work Phone: Comment on above: PATIENT WAS FASTINGP ERFORMED BY: [facility]Saint [facility] Atqprj2077 [facility] [id number] Triglyceride [Mass/Vol] 56 mg/dL Normal 0-149 [facility] Work Phone: Comment on above: PATIENT WAS FASTINGP ERFORMED BY: [facility] Wrbknu7228 [facility] [id number] Metabolic Panel, Comprehensi ve ([id number])Ordered By: Post Graduate Intern on 06-25-2014 Albumin [Mass/Vol] 4.7 g/dL Normal 3.5-5.5 Compre hensive Internal Medicine Work Phone: Comment on above: PATIENT WAS FASTINGP ERFORMED BY: TOBIN LabCojoseph Reokyf4989 [address] RoadDublin [place] [id number] Albumin/Globulin [Mass ratio] 1.8 {ratio} Normal 1.1-2.5 [facility] Work Phone: Comment on above: PATIENT WAS FASTINGP ERFORMED BY: TOBIN [facility] Lniwii6259 [address] RoadDublin [place] [id number] ALP [Catalytic activity/Vol] 41 [iU]/L Normal 39-117 [facility] Work Phone: Comment on above: PATIENT WAS FASTINGP ERFORMED BY: TOBIN LabCojoseph FaganPkuuwo0463 [address] RoadDublin [place] [id number] ALP [Catalytic activity/Vol] 41 U/L Normal 39-117 [facility]; [facility] Work Phone: ALT [Catalytic activity/Vol] 12 [iU]/L Normal 0-32 [facility] Work Phone: Comment on above: PATIENT WAS FASTINGP ERFORMED BY: TOBIN [facility] Vvckuj4988 [address] RoadDublin [place] [id number] ALT [Catalytic activity/Vol] 12 U/L Normal 0-32 [facility]; [facility] Work Phone: AST [Catalytic activity/Vol] 14 [iU]/L Normal 0-40 [facility] Work Phone: Comment on above: PATIENT WAS FASTINGP ERFORMED BY: [facility] Kpjnbm3348 [address] RoadDublin [place] [id number] AST [Catalytic activity/Vol] 14 U/L Normal 0-40 [facility]; [facility] Work Phone: Bilirubin [Mass/Vol] 0.2 mg/dL Normal 0.0-1.2 [facility] Internal Medicine Work Phone: Comment on above: PATIENT WAS FASTINGP ERFORMED BY: TOBIN [facility] Ruxaqh4630 [address] RoadDublin [place] [id number] Calcium [Mass/Vol] 9.7 mg/dL Normal 8.7-10.2 [facility] Internal Medicine Work Phone: Comment on above: PATIENT WAS FASTINGP ERFORMED BY: TOBIN [facility] Dmcico3543 [address] RoadDublin [place] [id number] Chloride [Moles/Vol] 102 mmol/L Normal 97-108 Comp rehensive Internal Medicine Work Phone: Comment on above: PATIENT WAS FASTINGP ERFORMED BY: CB [facility] Yefwmu0618 [address] Roadblin [place] [id number] CO2 [Moles/Vol] 22 mmol/L Normal 18-29 [facility] Internal Medicine Work Phone: Comment on above: PATIENT WAS FASTINGP ERFORMED BY: TOBIN [facility] Mgvtxr6891 [address] [facility] [id number] Creatinine [Mass/Vol] 0.80 mg/dL Normal 0.57-1.00 [facility] Internal Medicine Work Phone: Comment on above: PATIENT WAS FASTINGP ERFORMED BY: TOBIN [facility] Rcloex6534 Jenkins RoadBlowing Rock Hospitalin [place] [id number] GFR/1.73 sq M predicted among blacks CKD-EPI (S/P/Bld) [Vol rate/Area] 105 mL/min/1.73 Normal [facility] Work Phone: Comment on above: PATIENT WAS FASTINGP ERFORMED BY: [facility] Xlieih8051 Jenkins RoadBlowing Rock Hospitalin [place] [id number] GFR/1.73 sq M predicted among non-blacks CKD-EPI (S/P/Bld) [Vol rate/Area] 91 mL/min/1.73 Normal [facility] Work Phone: Comment on above: PATIENT WAS FASTINGP ERFORMED BY: TOBIN [facility] Ubbmjz9644 Jenkins RoadBlowing Rock Hospitalin [place] [id number] Globulin (S) [Mass/Vol] 2.6 g/dL Normal 1.5-4.5 [facility] Work Phone: Comment on above: PATIENT WAS FASTINGP ERFORMED BY: CB [facility] Pepthg4522 [address] RoadDublin [place] [id number] Glucose [Mass/Vol] 96 mg/dL Normal 65-99 [facility] Internal Medicine Work Phone: Comment on above: PATIENT WAS FASTINGP ERFORMED BY: TOBIN [facility] Cazecd0101 Jenkisn RoadDublin [place] [id number] Potassium [Moles/Vol] 5.0 mmol/L Normal 3.5-5.2 [facility] Internal Medicine Work Phone: Comment on above: PATIENT WAS FASTINGP ERFORMED BY: CB [facility] Xxvsge9092 [address] RoadDublin [place] [id number] Protein [Mass/Vol] 7.3 g/dL Normal 6.0-8.5 [facility] Internal Medicine Work Phone: Comment on above: PATIENT WAS FASTINGP ERFORMED BY: TOBIN [facility] Urdffm8363 [address] RoadDublin [place] [id number] Sodium [Moles/Vol] 141 mmol/L Normal 134-144 [facility] Work Phone: Comment on above: PATIENT WAS FASTINGP ERFORMED BY: TOBIN [facility] Ikesoh5341 [address] RoadDublin [place] [id number] Urea nitrogen [Mass/Vol] 9 mg/dL Normal 6-24 [facility] Internal Medicine Work Phone: Comment on above: PATIENT WAS FASTINGP ERFORMED BY: TOBIN [facility] Xekusa1052 [address] RoadDublin [place] [id number] Urea nitrogen/Creatinine [Mass ratio] 11 mg/mg Normal 9- [facility] Internal Medicine Work Phone: Comment on above: PATIENT WAS FASTINGP ERFORMED BY: [facility] Afxjnn0061 [address]Dublin [place] [id number] TSH ([id number])Ordered By: Yan Cruz on 06-25-2014 TSH Qn 2.590 {uIU/mL} Normal 0.450-4.50 0 [facility] Internal Medicine Work Phone: Comment on above: PATIENT WAS FASTINGP ERFORMED BY: [facility] Qyljox2195 [address]Dublin [place] [id number] Office Visit: est annualon 0 05-03-2014 General categories [Interpretation] of Cervical or vaginal smear or scraping by Cyto stain Normal Invalid Interpretation Code [facility] Rapid Flu (88094 x 2)Ordered By: Maricarmen Cordova on 02-20-2014 FLUAV Ag IA Ql (Throat) Negative Normal [facility] Work Phone: FLUAV Ag IA Ql (Throat) Negative Normal [facility]; [facility] Work Phone: LIPID PANEL (53462)Ordered B y: Post Graduate Intern on 12-28-2013 Cholesterol [Mass/Vol] 142 mg/dL Normal 100-199 [facility] Work Phone: Comment on above: PATIENT WAS FASTINGP ERFORMED BY: VastechCooper County Memorial HospitalOqnbfa5053 [facility] [id number] Information: [id number] Cholesterol in HDL [Mass/Vol] 53 mg/dL Normal [facility] Work Phone: Comment on above: According to ATP-III Guidelines, HDL-C >59 mg/dL is considered anegative risk factor for CHD. PATIENT WAS FASTINGP ERFORMED BY: Sophia GeneticsLos Alamos Medical CenterOywiag7049 [facility] [id number] Information: 485693,[id number] Cholesterol in LDL [Mass/Vol] 53 mg/dL Normal 0-99 [facility] Work Phone: Comment on above: PATIENT WAS FASTINGP ERFORMED BY: VastechCooper County Memorial HospitalJjvlxb4645 [facility] [id number] Information: 670814,L21111 Cholesterol in LDL/Cholesterol in HDL [Mass ratio] 1.0 {ratio_units} Normal 0.0-3.2 [facility] Work Phone: Comment on above: PATIENT WAS FASTINGP ERFORMED BY: VastechAscension Borgess Hospital6370 [facility] [id number] Information: 488744,[id number] Cholesterol in VLDL [Mass/Vol] 36 mg/dL Normal 5-40 [facility] Work Phone: Comment on above: PATIENT WAS FASTINGP ERFORMED BY: TOBIN [facility] Crviun5651 [facility] [id number] Information: 322108,[id number] Triglyceride [Mass/Vol] 180 mg/dL Abnormal 0-149 [facility] Work Phone: Comment on above: PATIENT WAS FASTINGP ERFORMED BY: [facility] Rokegt3099 [facility] [id number] Information: 327194,[id number] TSH (78780)Ordered By: Sword Diagnosticse m Horse Trainer on 12-28-2013 TSH Qn 1.940 {uIU/mL} Normal 0.450-4.50 0 [facility] Work Phone: Comment on above: PATIENT WAS FASTINGP ERFORMED BY: TOBIN [facility] Buwopw9668 [facility] [id number] LIPID PANEL (47576)Ordered B y: 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 PATIENT WAS FASTINGP ERFORMED BY: [facility] Axkhjm0722 [facility] [id number] Information: 589255,[id number] Cholesterol in LDL [Mass/Vol] 98 mg/dL Normal 0-99 [facility] Work Phone: Comment on above: PATIENT WAS FASTINGP ERFORMED BY: [facility] Fcryik8074 [facility] [id number] Information: 403908,Y40639 Cholesterol in LDL/Cholesterol in HDL [Mass ratio] 1.9 {ratio_units} Normal 0.0-3.2 [facility] Work Phone: Comment on above: PATIENT WAS FASTINGP ERFORMED BY: TOBIN Alvarez6370 [facility] [id number] Information: 801530,C21154 Cholesterol in VLDL [Mass/Vol] 32 mg/dL Normal 5-40 [facility] Work Phone: Comment on above: PATIENT WAS FASTINGP ERFORMED BY: LabCoStephen Ville [id number] [facility] [id number] Information: 978111,[id number] Triglyceride [Mass/Vol] 160 mg/dL Abnormal 0-149 [facility] Work Phone: Comment on above: PATIENT WAS FASTINGP ERFORMED BY: [place] [id number] [facility] [id number] Information: 335819,[id number] LIPID PANEL (93471)Ordered B y: Post Graduate Intern on 09-08-2012 Cholesterol [Mass/Vol] 132 mg/dL Normal 100-199 [facility] Work Phone: Comment on above: PATIENT WAS FASTINGP ERFORMED BY: NohemiSaint [facility]S [facility] Quiknh0683 [facility] [id number] Information: 897147,[id number] Cholesterol in HDL [Mass/Vol] 56 mg/dL Normal [facility] Work Phone: Comment on above: According to ATP-III Guidelines, HDL-C >59 mg/dL is considered anegative risk factor for CHD. PATIENT WAS FASTINGP ERFORMED BY: LabAscension Borgess Hospital6370 [facility] [id number] Information: 288341,[id number] Cholesterol in LDL [Mass/Vol] 54 mg/dL Normal 0-99 [facility] Work Phone: Comment on above: PATIENT WAS FASTINGP ERFORMED BY: LabAscension Borgess Hospital6370 [facility] [id number] Information: 814848,P60334 Cholesterol in LDL/Cholesterol in HDL [Mass ratio] 1.0 {ratio_units} Normal 0.0-3.2 [facility] Work Phone: Comment on above: PATIENT WAS FASTINGP ERFORMED BY: [place] [id number] [facility] [id number] Information: 850504,[id number] Cholesterol in VLDL [Mass/Vol] 22 mg/dL Normal 5-40 [facility] Work Phone: Comment on above: PATIENT WAS FASTINGP ERFORMED BY: [address] [id number] Information: 387423,J95966 Triglyceride [Mass/Vol] 112 mg/dL Normal 0-149 [facility] Work Phone: Comment on above: PATIENT WAS FASTINGP ERFORMED BY: [address] [id number] Information: 575073,R72955 Influenza A&B Viral Culture (40815)Ordered By: Post Graduate Intern on 06-01-2012 FLUV identified Org specific cx Nom (Unsp spec) FLUABN Normal [facility] Work Phone: Comment on above: Negative:No Influenz a A or B detected. PATIENT NOT FASTINGP ERFORMED BY: [place] [id number] [facility] [id number] Information: SRC:NOS [id number] Rapid Flu (73835 x 2)on 05-04 FLUAV Ag IA Ql (Throat) Negative Normal [facility] Work Phone: FLUAV Ag IA Ql (Throat) Negative Normal [facility]; [facility] Work Phone: HEPATIC FUNCTION PANEL (8004 6)Ordered By: Post Graduate Intern on 04-27-2012 Albumin [Mass/Vol] 4.5 g/dL Normal 3.5-5.5 [facility] Work Phone: Comment on above: PATIENT WAS FASTINGP ERFORMED BY: [address] [id number] Information: 688421,[id number] ALP [Catalytic activity/Vol] 44 [iU]/L Normal 25-150 [facility] Work Phone: Comment on above: PATIENT WAS FASTINGP ERFORMED BY: TOBIN Madhavi Alvarez6370 [facility] [id number] Information: 373505,I22307 ALP [Catalytic activity/Vol] 44 U/L Normal 25-150 [facility]; [facility] Work Phone: ALT [Catalytic activity/Vol] 9 [iU]/L Normal 0-32 [facility] Work Phone: Comment on above: PATIENT WAS FASTINGP ERFORMED BY: TOBIN [facility] Zosfvy8692 [facility] [id number] Information: 603657,V80369 ALT [Catalytic activity/Vol] 9 U/L Normal 0-32 [facility]; [facility] Work Phone: AST [Catalytic activity/Vol] 12 [iU]/L Normal 0-40 [facility] Work Phone: Comment on above: PATIENT WAS FASTINGP ERFORMED BY: TOBIN [place] 6265470 [facility] [id number] Information: 388708,W95452 AST [Catalytic activity/Vol] 12 U/L Normal 0-40 [facility]; [facility] Work Phone: Bilirubin [Mass/Vol] 0.2 mg/dL Normal 0.0-1.2 [facility] Work Phone: Comment on above: PATIENT WAS FASTINGP ERFORMED BY: [place] 7887970 [facility] [id number] Information: 361439,B36093 Bilirubin.direct [Mass/Vol] 0.05 mg/dL Normal 0.00-0.40 [facility] Work Phone: Comment on above: PATIENT WAS FASTINGP ERFORMED BY: [place] 7887970 [facility] [id number] Information: 305271,L44585 Protein [Mass/Vol] 7.2 g/dL Normal 6.0-8.5 [facility] Work Phone: Comment on above: PATIENT WAS FASTINGP ERFORMED BY: CB [facility] Hcvtep8983 [address] RoadDublin [place] [id number] Information: 136335,H65515 LIPID PANEL (27164)Ordered B y: Post Graduate Intern on 04-27-2012 Cholesterol [Mass/Vol] 166 mg/dL Normal 100-199 [facility] Work Phone: Comment on above: PATIENT WAS FASTINGP ERFORMED BY: CB [facility] Uwfoli4708 [address] RoadDublin [place] [id number] Cholesterol in HDL [Mass/Vol] 55 mg/dL Normal [facility] Work Phone: Comment on above: According to ATP-III Guidelines, HDL-C >59 mg/dL is considered anegative risk factor for CHD. PATIENT WAS FASTINGP ERFORMED BY: CB [facility] Vsljuc4915 [address] RoadDublin [place] [id number] Cholesterol in LDL [Mass/Vol] 87 mg/dL Normal 0-99 [facility] Work Phone: Comment on above: PATIENT WAS FASTINGP ERFORMED BY: CB [facility] Ipfpok4575 [address] RoadDublin [place] [id number] Cholesterol in LDL/Cholesterol in HDL [Mass ratio] 1.6 {ratio_units} Normal 0.0-3.2 [facility] Work Phone: Comment on above: PATIENT WAS FASTINGP ERFORMED BY: CB [facility] Kxaegg9442 [address] RoadDublin [place] [id number] Cholesterol in VLDL [Mass/Vol] 24 mg/dL Normal 5-40 [facility] Work Phone: Comment on above: PATIENT WAS FASTINGP ERFORMED BY: CB [facility] Hfrqzb5797 [address] RoadDublin [place] [id number] Triglyceride [Mass/Vol] 120 mg/dL Normal 0-149 [facility] Work Phone: Comment on above: PATIENT WAS FASTINGP ERFORMED BY: TOBIN LabCojoseph Vpdcez0158 [address] RoadDublin [place] [id number] HEPATIC FUNCTION PANEL (8007 6)Ordered By: Post Graduate Intern on 01-15-2012 Bilirubin.direct [Mass/Vol] 0.14 mg/dL Normal 0.00-0.40 [facility] Work Phone: Comment on above: PATIENT NOT FASTINGP ERFORMED BY: TOBIN [facility] Nujaxg7801 [address] RoadDublin [place] [id number] Lipid Panel (58256)Ordered B y: Post Graduate Intern on 01-15-2012 Cholesterol [Mass/Vol] 128 mg/dL Normal 100-199 [facility] Work Phone: Comment on above: Please note refere nce interval change PATIENT NOT FASTINGP ERFORMED BY: TOBIN [facility] Tlreul3930 [address] RoadDublin [place] [id number] Cholesterol in HDL [Mass/Vol] 52 mg/dL Normal [facility] Work Phone: Comment on above: According to ATP-III Guidelines, HDL-C >59 mg/dL is considered anegative risk factor for CHD. PATIENT NOT FASTINGP ERFORMED BY: TOBIN LabJudson Jnlotw8709 [address] RoadDublin [place] [id number] Cholesterol in LDL [Mass/Vol] 57 mg/dL Normal 0-99 [facility] Work Phone: Comment on above: Please note refere nce interval change PATIENT NOT FASTINGP ERFORMED BY: CB [facility] Iivhxb8207 [address] RoadDublin [place] [id number] Cholesterol in LDL/Cholesterol in HDL [Mass ratio] 1.1 {ratio_units} Normal 0.0-3.2 [facility] Work Phone: Comment on above: PATIENT NOT FASTINGP ERFORMED BY: TOBIN [facility] Djlivo6994 [address] RoadDublin [place] [id number] Cholesterol in VLDL [Mass/Vol] 19 mg/dL Normal 5-40 [facility] Work Phone: Comment on above: PATIENT NOT FASTINGP ERFORMED BY: TOBIN [facility] Uzurih1097 [address] RoadDublin [place] [id number] Triglyceride [Mass/Vol] 94 mg/dL Normal 0-149 [facility] Work Phone: Comment on above: Please note refere nce interval change PATIENT NOT FASTINGP ERFORMED BY: CB [facility] Zdqdcw2168 [address] RoadDublin [place] [id number] Metabolic Panel, Comprehensi ve (16928)Ordered By: Post Graduate Intern on 01-15-2012 Albumin [Mass/Vol] 4.6 g/dL Normal 3.5-5.5 [facility] Work Phone: Comment on above: PATIENT NOT FASTINGP ERFORMED BY: CB [facility] Togssj9545 [address] RoadDublin [place] [id number] Information: 162411,[id number] Albumin/Globulin [Mass ratio] 1.8 {ratio} Normal 1.1-2.5 [facility] Work Phone: Comment on above: PATIENT NOT FASTINGP ERFORMED BY: CB [facility] Ogizhs4459 [address] RoadDublin [place] [id number] Information: [id number] ALP [Catalytic activity/Vol] 39 [iU]/L Normal 25-150 [facility] Work Phone: Comment on above: PATIENT NOT FASTINGP ERFORMED BY: CB [facility] Camaaw5048 [address] RoadDublin [place] [id number] Information: 260069,P12760 ALP [Catalytic activity/Vol] 39 U/L Normal 25-150 [facility]; [facility] Work Phone: ALT [Catalytic activity/Vol] 6 [iU]/L Normal 0-40 [facility] Work Phone: Comment on above: PATIENT NOT FASTINGP ERFORMED BY: CB [facility] Vdypgb8574 [address] RoadDublin [place] [id number] Information: 624881,X94504 ALT [Catalytic activity/Vol] 6 U/L Normal 0-40 [facility]; [facility] Work Phone: AST [Catalytic activity/Vol] 11 [iU]/L Normal 0-40 [facility] Work Phone: Comment on above: PATIENT NOT FASTINGP ERFORMED BY: TOBIN LabCojoseph Ripxvz3499 [address] RoadDublin [place] [id number] Information: 758920,[id number] AST [Catalytic activity/Vol] 11 U/L Normal 0-40 [facility]; [facility] Work Phone: Bilirubin [Mass/Vol] 0.4 mg/dL Normal 0.0-1.2 [facility] Work Phone: Comment on above: PATIENT NOT FASTINGP ERFORMED BY: TOBIN [facility] Dpsepo0635 Jenkins RoadDuWashington Regional Medical Center [id number] Information: [id number],[id number] Calcium [Mass/Vol] 9.5 mg/dL Normal 8.7-10.2 [facility] Work Phone: Comment on above: PATIENT NOT FASTINGP ERFORMED BY: TOBIN [facility] Nukqiz4848 Jenkins RoadBlowing Rock Hospitalin [place] [id number] Information: 334845,[id number] Chloride [Moles/Vol] 103 mmol/L Normal 97-108 [facility] Internal Medicine Work Phone: Comment on above: PATIENT NOT FASTINGP ERFORMED BY: CB [facility] Qmazwx8168 Jenkins RoadBlowing Rock Hospitalin [place] [id number] Information: 794115,P37387 CO2 [Moles/Vol] 21 mmol/L Normal 20-32 [facility] Internal Medicine Work Phone: Comment on above: PATIENT NOT FASTINGP ERFORMED BY: CB [facility] Ylglqp6137 Jenkins RoadBlowing Rock Hospitalin [place] [id number] Information: 290204,F04831 Creatinine [Mass/Vol] 0.76 mg/dL Normal 0.57-1.00 [facility] Work Phone: Comment on above: PATIENT NOT FASTINGP ERFORMED BY: CB [facility] Cbnerq7090 [address] RoadDublin [place] [id number] Information: 484413,H07687 GFR/1.73 sq M predicted among blacks CKD-EPI (S/P/Bld) [Vol rate/Area] 114 mL/min/1.73 Normal [facility] Work Phone: Comment on above: PATIENT NOT FASTINGP ERFORMED BY: LabCoMonmouth Medical CenterSmfaao5479 [facility] [id number] Information: 401368,O84646 GFR/1.73 sq M predicted among non-blacks CKD-EPI (S/P/Bld) [Vol rate/Area] 99 mL/min/1.73 Normal [facility] Work Phone: Comment on above: PATIENT NOT FASTINGP ERFORMED BY: [facility] Xvihkt0425 [facility] [id number] Information: 030092,Q85839 Globulin (S) [Mass/Vol] 2.6 g/dL Normal 1.5-4.5 [facility] Work Phone: Comment on above: PATIENT NOT FASTINGP ERFORMED BY: [facility] Vrvkab0237 [facility] [id number] Information: 001696,S03336 Glucose [Mass/Vol] 86 mg/dL Normal 65-99 [facility] Work Phone: Comment on above: PATIENT NOT FASTINGP ERFORMED BY: [facility] Yxsscv5711 [facility] [id number] Information: 694204,N07617 Potassium [Moles/Vol] 4.2 mmol/L Normal 3.5-5.2 [facility] Work Phone: Comment on above: PATIENT NOT FASTINGP ERFORMED BY: CB [facility] Upntfh0038 [facility] [id number] Information: 315733,[id number] Protein [Mass/Vol] 7.2 g/dL Normal 6.0-8.5 [facility] Work Phone: Comment on above: PATIENT NOT FASTINGP ERFORMED BY: [facility] Oslomk9648 [address] [facility] [id number] Information: 116422,[id number] Sodium [Moles/Vol] 139 mmol/L Normal 134-144 Compre hensive Internal Medicine Work Phone: Comment on above: PATIENT NOT FASTINGP ERFORMED BY: CB [facility] Hkpmrg2725 [address] [facility] [id number] Information: 826180,[id number] Urea nitrogen [Mass/Vol] 11 mg/dL Normal 6-20 [facility] Work Phone: Comment on above: PATIENT NOT FASTINGP ERFORMED BY: CB [facility] Ktnpxr5187 [facility] [id number] Information: 458686,[id number] Urea nitrogen/Creatinine [Mass ratio] 14 mg/mg Normal 8-20 [facility] Work Phone: Comment on above: PATIENT NOT FASTINGP ERFORMED BY: [facility] Bxvfsw5543 [facility] [id number] Information: [id number] TSH (43348)Ordered By: Yan Cruz on 01-15-2012 TSH Qn 2.130 {uIU/mL} Normal 0.450-4.50 0 [facility] Work Phone: Comment on above: PATIENT NOT FASTINGP ERFORMED BY: [facility] Qycrxs1504 [facility] [id number] Rapid Strep Test, Office (57 069)Ordered By: Cyndy Krishnamurthy on 08-26-2011 S. pyogenes Ag EIA Ql (Throat) Negative Normal [facility]; [facility] Work Phone: S. pyogenes Ag IA Ql (Unsp spec) Negative Normal [facility] Work Phone: Urinalysis, Office (54127)on 12-01-2010 Bilirubin Ql (U) Negative Normal Comprehe nsive [facility] Medicine Work Phone: Bilirubin Ql (U) Negative Normal Comprehe nsive [facility] Medicine; [facility] Work Phone: Glucose Test strip (U) [Mass/Vol] Negative Normal [facility] Work Phone: Glucose Test strip (U) [Mass/Vol] Negative Normal [facility]; [facility] Work Phone: Hemoglobin Ql (U) Hemolyzed Trace Normal Co mprehensive [facility] Work Phone: Ketones Ql (U) Negative Normal Comprehens [facility] Work Phone: Ketones Ql (U) Negative Normal Comprehens [facility]; [facility] Work Phone: Leukocyte esterase Test strip Ql (U) Negative Normal [facility] Work Phone: Leukocyte esterase Test strip Ql (U) Negative Normal [facility]; [facility] Work Phone: Nitrite Ql (U) Negative Normal [facility] Work Phone: Nitrite Ql (U) Negative Normal [facility]; [facility] Work Phone: pH (U) 6.5 [pH] Normal [facility] Work Phone: Protein Ql (U) Negative Normal [facility] Work Phone: Protein Ql (U) Negative Normal Comprehens [facility]; [facility] Work Phone: Specific gravity (U) [Rel density] 1.025 1 Normal [facility] Work Phone: Urobilinogen (24H U) [Mass/Time] Normal Normal [facility] Work Phone: Lipid Panel (23644)Ordered B y: Post Graduate Intern on 06-02-2010 Cholesterol [Mass/Vol] 150 mg/dL Normal 100-199 [facility] Work Phone: Comment on above: PATIENT WAS FASTINGP ERFORMED BY: [facility] Emyjos3257 [facility] [id number] Cholesterol in HDL [Mass/Vol] 55 mg/dL Normal [facility] Work Phone: Comment on above: According to ATP-III Guidelines, HDL-C >59 mg/dL is considered anegative risk factor for CHD. PATIENT WAS FASTINGP ERFORMED BY: TOBIN LabCojoseph Slbyyk4[address] [facility] Hospitalblin [place] [id number] Cholesterol in LDL [Mass/Vol] 68 mg/dL Normal 0-99 [facility] Work Phone: Comment on above: PATIENT WAS FASTINGP ERFORMED BY: CB [facility] Vqfxjl3500 Jenkins Roadblin [place] [id number] Cholesterol in LDL/Cholesterol in HDL [Mass ratio] 1.2 {ratio_units} Normal 0.0-3.2 [facility] Work Phone: Comment on above: PATIENT WAS FASTINGP ERFORMED BY: TOBIN [facility] Ansrkv2277 [address] [facility]in [place] [id number] Cholesterol in VLDL [Mass/Vol] 27 mg/dL Normal 5-40 [facility] Work Phone: Comment on above: PATIENT WAS FASTINGP ERFORMED BY: TOBIN [facility] Fpzvhc0466 [address] [facility]in [place] [id number] Triglyceride [Mass/Vol] 133 mg/dL Normal 0-149 [facility] Work Phone: Comment on above: PATIENT WAS FASTINGP ERFORMED BY: TOBIN [facility] Jfozkw1580 [address] [facility]in [place] [id number] Metabolic Panel, Comprehensi ve (20670)Ordered By: Post Graduate Intern on 06-02-2010 Albumin [Mass/Vol] 4.3 g/dL Normal 3.5-5.5 [facility] Work Phone: Comment on above: PATIENT WAS FASTINGP ERFORMED BY: CB [facility] Pwznos4534 [address] [facility]in [place] [id number] Information: 417572,[id number] Albumin/Globulin [Mass ratio] 1.5 {ratio} Normal 1.1-2.5 [facility] Work Phone: Comment on above: PATIENT WAS FASTINGP ERFORMED BY: CB [facility] Epzxgg8608 [address] [facility] Hospitalbl[facility] [place] [id number] Information: 587483,X76873 ALP [Catalytic activity/Vol] 36 [iU]/L Normal 25-150 [facility] Work Phone: Comment on above: PATIENT WAS FASTINGP ERFORMED BY: TOBIN Elanajoseph FaganRcmprb0581 [facility] [id number] Information: 830803,[id number] ALP [Catalytic activity/Vol] 36 U/L Normal 25-150 [facility]; [facility] Work Phone: ALT [Catalytic activity/Vol] 13 [iU]/L Normal 0-40 [facility] Work Phone: Comment on above: PATIENT WAS FASTINGP ERFORMED BY: TOBIN NohemiJudson FaganIsnmdq0849 [facility] [id number] Information: 765004,P08592 ALT [Catalytic activity/Vol] 13 U/L Normal 0-40 [facility]; [facility] Work Phone: AST [Catalytic activity/Vol] 19 [iU]/L Normal 0-40 [facility] Work Phone: Comment on above: PATIENT WAS FASTINGP ERFORMED BY: TOBIN Faganlin6370 [facility] [id number] Information: [id number] AST [Catalytic activity/Vol] 19 U/L Normal 0-40 [facility]; [facility] Work Phone: Bilirubin [Mass/Vol] 0.2 mg/dL Normal 0.0-1.2 Comp [facility]eren[facility] Work Phone: Comment on above: PATIENT WAS FASTINGP ERFORMED BY: TOBIN [facility] Xlhisb5599 [facility] [id number] Information: [id number] Calcium [Mass/Vol] 9.3 mg/dL Normal 8.7-10.2 [facility] Internal Medicine Work Phone: Comment on above: PATIENT WAS FASTINGP ERFORMED BY: TOBIN [place] 6265470 [facility] [id number] Information: [id number] Chloride [Moles/Vol] 106 mmol/L Normal 97-108 [facility] Work Phone: Comment on above: PATIENT WAS FASTINGP ERFORMED BY: LabCoLos Alamos Medical CenterUkrudc2936 [facility] [id number] Information: [id number],[id number] CO2 [Moles/Vol] 23 mmol/L Normal 20-32 [facility] Internal Medicine Work Phone: Comment on above: PATIENT WAS FASTINGP ERFORMED BY: LabCoMonmouth Medical CenterJyrudp4777 [facility] [id number] Information: [id number],[id number] Creatinine [Mass/Vol] 0.94 mg/dL Normal 0.57-1.00 [facility] Work Phone: Comment on above: PATIENT WAS FASTINGP ERFORMED BY: LabCoMonmouth Medical CenterWoxeqa5017 [facility] [id number] Information: [id number] GFR/1.73 sq M predicted among blacks MDRD (S/P/Bld) [Vol rate/Area] mL/min/{1.73_m2} Normal [facility] Work Phone: Comment on above: Note: Persistent red uction for 3 months or more in an eGFR<60 mL/min/1.73 m2 defines CKD. Patients with eGFR values>/=60 mL/min/1.73 m2 may also have CKD if evidence of persistentproteinuria is present. Additional information may be found [email or web address]. PATIENT WAS FASTINGP ERFORMED BY: LabCoMonmouth Medical CenterMzlibc2884 [facility] [id number] Information: [id number],[id number] GFR/1.73 sq M.predicted MDRD (S/P/Bld) [Vol rate/Area] mL/min/{1.73_m2} Normal [facility] Work Phone: Comment on above: PATIENT WAS FASTINGP ERFORMED BY: [facility]6370 [facility] [id number] Information: [id number] Globulin (S) [Mass/Vol] 2.8 g/dL Normal 1.5-4.5 [facility] Internal Medicine Work Phone: Comment on above: PATIENT WAS FASTINGP ERFORMED BY: [facility]6370 [facility] [id number] Information: [id number] Glucose [Mass/Vol] 87 mg/dL Normal 65-99 [facility] Internal Medicine Work Phone: Comment on above: PATIENT WAS FASTINGP ERFORMED BY: [place] 7887970 [facility] [id number] Information: [id number],[id number] Potassium [Moles/Vol] 4.0 mmol/L Normal 3.5-5.2 [facility] Internal Medicine Work Phone: Comment on above: PATIENT WAS FASTINGP ERFORMED BY: [place] 7887970 [facility] [id number] Information: [id number] Protein [Mass/Vol] 7.1 g/dL Normal 6.0-8.5 [facility] Internal Medicine Work Phone: Comment on above: PATIENT WAS FASTINGP ERFORMED BY: [place] 7887970 [facility] [id number] Information: [id number] Sodium [Moles/Vol] 142 mmol/L Normal 135-145 [facility] Internal Medicine Work Phone: Comment on above: PATIENT WAS FASTINGP ERFORMED BY: LabAsc[facility]ess Hospital6370 [facility] [id number] Information: [id number] Urea nitrogen [Mass/Vol] 8 mg/dL Normal 6-20 [facility] Internal Medicine Work Phone: Comment on above: PATIENT WAS FASTINGP ERFORMED BY: LabAscension Borgess Hospital6370 [facility] [id number] Information: [id number],[id number] Urea nitrogen/Creatinine [Mass ratio] 9 mg/mg Normal 8-20 [facility] Work Phone: Comment on above: PATIENT WAS FASTINGP ERFORMED BY: TOBIN Elanajoseph Izdpts9054 [facility] [id number] Information: [id number] URINE RANGEL CULTURE-ALEXANDRE COL C OUNT (32955)Ordered By: Post Graduate Intern on 04-15-2010 Bacteria identified Cx Nom (U) Escherichia coli Normal [facility] Work Phone: Comment on above: Greater than 100,000 colony forming units per mL PATIENT NOT FASTINGP ERFORMED BY: TOBIN LabJessica Ville 1574470 [facility] [id number] Information: SRC:UR [id number] Bacteria identified Cx Nom (U) Final report Normal [facility] Work Phone: Comment on above: PATIENT NOT FASTINGP ERFORMED BY: TOBIN LabSaint [facility] Gdtxpq1436 [facility] [id number] Information: SRC:UR D37950 Other Antibiotic [Susc] MIHEAD Normal [facility] Work Phone: Comment on above: S = Susceptibl e; I = Intermediate; R = Resistant P = Positive; N = Negative MICS are expressed in micrograms per mL Antibiotic RSLT#1 RSLT#2 RSLT#3 RSLT#4Amikacin SAmoxicillin/Clavulanic Acid SAmpicillin SCefazolin SCefepime SCefoxitin SCeftriaxone SCiprofloxacin SESBL NErtapenem SGentamicin SImipenem SLevofloxacin SNitrofurantoin STobramycin STrimethoprim/Sulfa S PATIENT NOT FASTINGP ERFORMED BY: TOBIN LabCo Brmozl0844 [facility] [id number] Information: SRC:UR R13777 Urinalysis, Office (27754)Or dered By: [place] on 04-15-2010 Bilirubin Ql (U) Negative Normal Comprehe nsive Internal Medicine Work Phone: Bilirubin Ql (U) Negative Normal Comprehe nsive Internal Medicine; [facility] Work Phone: Glucose Test strip (U) [Mass/Vol] Negative Normal [facility] Work Phone: Glucose Test strip (U) [Mass/Vol] Negative Normal [facility]; [facility] Work Phone: Hemoglobin Ql (U) Hemolyzed Large Normal Co mprehensive Internal Medicine Work Phone: Ketones Ql (U) Negative Normal Comprehens mona Internal Medicine Work Phone: Ketones Ql (U) Negative Normal Comprehens [facility]; [facility] Work Phone: Leukocyte esterase Test strip Ql (U) Large Normal [facility] Work Phone: Nitrite Ql (U) Negative Normal Comprehens [facility] Internal Medicine Work Phone: Nitrite Ql (U) Negative Normal Comprehens [facility]; [facility] Work Phone: pH (U) 6.0 [pH] Normal [facility] Work Phone: Protein Ql (U) 100 mg/dL Normal Comprehens [facility] Internal Medicine Work Phone: Specific gravity (U) [Rel density] 1.025 1 Normal [facility] Work Phone: Urobilinogen (24H U) [Mass/Time] Normal Normal [facility] Work Phone: METABOLIC PANEL, COMPREHENSI VE (02112)Ordered By: Post Graduate Intern on 01-13-2010 Albumin [Mass/Vol] 3.9 g/dL Normal 3.5-5.5 Compre hensive Internal Medicine Work Phone: Comment on above: PATIENT NOT FASTINGP ERFORMED BY: TOBIN [facility] Nrwevj2788 [facility] [id number] Information: [id number] Albumin/Globulin [Mass ratio] 1.8 {ratio} Normal 1.1-2.5 [facility] Work Phone: Comment on above: PATIENT NOT FASTINGP ERFORMED BY: TOBIN Alvarez6370 [facility] [id number] Information: [id number] ALP [Catalytic activity/Vol] 33 [iU]/L Normal 25-150 [facility] Work Phone: Comment on above: PATIENT NOT FASTINGP ERFORMED BY: TOBIN Alvarez6370 [facility] [id number] Information: [id number] ALP [Catalytic activity/Vol] 33 U/L Normal 25-150 [facility]; [facility] Work Phone: ALT [Catalytic activity/Vol] 15 [iU]/L Normal 0-40 [facility] Work Phone: Comment on above: PATIENT NOT FASTINGP ERFORMED BY: TOBIN Faganlin6370 [facility] [id number] Information: [id number] ALT [Catalytic activity/Vol] 15 U/L Normal 0-40 [facility]; [facility] Work Phone: AST [Catalytic activity/Vol] 22 [iU]/L Normal 0-40 [facility] Work Phone: Comment on above: PATIENT NOT FASTINGP ERFORMED BY: TOBIN Alvarez6370 [facility] [id number] Information: [id number] AST [Catalytic activity/Vol] 22 U/L Normal 0-40 [facility]; [facility] Work Phone: Bilirubin [Mass/Vol] 0.2 mg/dL Normal 0.0-1.2 Comp rehensive Internal Medicine Work Phone: Comment on above: PATIENT NOT FASTINGP ERFORMED BY: TOBIN Faganlin6370 [facility] [id number] Information: [id number],[id number] Calcium [Mass/Vol] 9.1 mg/dL Normal 8.7-10.2 [facility]pre [facility] Internal Medicine Work Phone: Comment on above: PATIENT NOT FASTINGP ERFORMED BY: CB [facility] Jtfhll2631 [address] [facility] [id number] Information: [id number],[id number] Chloride [Moles/Vol] 104 mmol/L Normal 97-108 [facility] Servicesensive [facility] Work Phone: Comment on above: PATIENT NOT FASTINGP ERFORMED BY: CB [facility] Mkjxxd9079 [address] [facility] [id number] Information: 540004,[id number] CO2 [Moles/Vol] 23 mmol/L Normal 20-32 [facility] Internal Medicine Work Phone: Comment on above: PATIENT NOT FASTINGP ERFORMED BY: CB [facility] Olikhh1295 [facility] [id number] Information: 782112,[id number] Creatinine [Mass/Vol] 0.78 mg/dL Normal 0.57-1.00 [facility] Work Phone: Comment on above: PATIENT NOT FASTINGP ERFORMED BY: CB [facility] Wqcmbs5090 [facility] [id number] Information: 456842,[id number] GFR/1.73 sq M predicted among blacks MDRD (S/P/Bld) [Vol rate/Area] mL/min/{1.73_m2} Normal [facility] Work Phone: Comment on above: Note: Persistent red uction for 3 months or more in an eGFR<60 mL/min/1.73 m2 defines CKD. Patients with eGFR values>/=60 mL/min/1.73 m2 may also have CKD if evidence of persistentproteinuria is present. Additional information may be found [email or web address]. PATIENT NOT FASTINGP ERFORMED BY: CB [facility] Guuqwu2252 [facility] [id number] Information: 605095,X03069 GFR/1.73 sq M.predicted MDRD (S/P/Bld) [Vol rate/Area] mL/min/{1.73_m2} Normal [facility] Work Phone: Comment on above: PATIENT NOT FASTINGP ERFORMED BY: TOBIN Huitron Iasvjj7439 [facility] [id number] Information: 103510,[id number] Globulin (S) [Mass/Vol] 2.2 g/dL Normal 1.5-4.5 [facility] Internal Medicine Work Phone: Comment on above: PATIENT NOT FASTINGP ERFORMED BY: TOBIN HuitronStephen Ville 4714970 [facility] [id number] Information: 791556,[id number] Glucose [Mass/Vol] 71 mg/dL Normal 65-99 [facility] Internal Medicine Work Phone: Comment on above: PATIENT NOT FASTINGP ERFORMED BY: TOBIN Huitron Arpkhu3437 [facility] [id number] Information: 642539,R04798 Potassium [Moles/Vol] 4.3 mmol/L Normal 3.5-5.2 [facility] Internal Medicine Work Phone: Comment on above: PATIENT NOT FASTINGP ERFORMED BY: TOBIN HuitronStephen [place] 4714970 [facility] [id number] Information: 192953,[id number] Protein [Mass/Vol] 6.1 g/dL Normal 6.0-8.5 [facility] Internal Medicine Work Phone: Comment on above: PATIENT NOT FASTINGP ERFORMED BY: NohemiJessica [place] 1574470 [facility] [id number] Information: 090557,[id number] Sodium [Moles/Vol] 139 mmol/L Normal 135-145 [facility] Internal Medicine Work Phone: Comment on above: PATIENT NOT FASTINGP ERFORMED BY: TOBIN Huitron Kfkfhk2502 [facility] [id number] Information: 810967,N27660 Urea nitrogen [Mass/Vol] 7 mg/dL Normal 5-26 [facility] Internal Medicine Work Phone: Comment on above: PATIENT NOT FASTINGP ERFORMED BY: TOBIN Faganlin6370 [facility] [id number] Information: 957272,[id number] Urea nitrogen/Creatinine [Mass ratio] 9 mg/mg Normal 8-27 [facility] Work Phone: Comment on above: PATIENT NOT FASTINGP ERFORMED BY: TOBIN Huitron Wpufvx9037 [facility] [id number] Information: 586167,G59038 LIPID PANEL (76928)Ordered B y: Post Graduate Intern on 11-01-2009 Cholesterol [Mass/Vol] 136 mg/dL Normal 100-199 [facility] Work Phone: Comment on above: PATIENT NOT FASTINGP ERFORMED BY: TOBIN Faganlin6370 [facility] [id number] Information: ADD K12431 AND DRAW FEE 99 6660 Cholesterol in HDL [Mass/Vol] 47 mg/dL Normal [facility] Work Phone: Comment on above: According to ATP-III Guidelines, HDL-C >59 mg/dL is considered anegative risk factor for CHD. PATIENT NOT FASTINGP ERFORMED BY: TOBIN Huitron Gvcbng0425 [facility] [id number] Information: ADD L24518 AND DRAW FEE 99 6660 Cholesterol in LDL [Mass/Vol] 61 mg/dL Normal 0-99 [facility] Work Phone: Comment on above: PATIENT NOT FASTINGP ERFORMED BY: TOBIN SongJessica [place] 1574470 [facility] [id number] Information: ADD N18400 AND DRAW FEE 99 6660 Cholesterol in LDL/Cholesterol in HDL [Mass ratio] 1.3 {ratio_units} Normal 0.0-3.2 [facility] Work Phone: Comment on above: PATIENT NOT FASTINGP ERFORMED BY: TOBIN Huitron Gdcgdt9442 [facility] [id number] Information: ADD G83029 AND DRAW FEE 99 6660 Cholesterol in VLDL [Mass/Vol] 28 mg/dL Normal 5-40 [facility] Work Phone: Comment on above: PATIENT NOT FASTINGP ERFORMED BY: TOBIN [facility] Pbphni1521 Jenkins Roadblin [place] [id number] Information: ADD [id number] AND DRAW FEE 99 6660 Triglyceride [Mass/Vol] 141 mg/dL Normal 0-149 [facility] Work Phone: Comment on above: PATIENT NOT FASTINGP ERFORMED BY: CB [facility] Nhxiah6649 Jenkins RoadBlowing Rock Hospitalin [place] [id number] Information: ADD Z58361 AND DRAW FEE 99 9660 TSH (36526)Ordered By: Sword Diagnosticse m Horse Trainer on 11-01-2009 TSH Qn 1.320 {uIU/mL} Normal 0.450-4.50 0 [facility] Work Phone: Comment on above: PATIENT NOT FASTINGP ERFORMED BY: TOBIN [facility] Uvejao0899 [facility] [id number] C-REACTIVE PROTEIN (90485)Or dered By: Post Graduate Intern on 08-30-2009 CRP [Mass/Vol] 9.8 mg/L Abnormal 0.0-4.9 [facility] Internal Medicine Work Phone: Comment on above: PATIENT NOT FASTINGP ERFORMED BY: TOBIN [facility] Uniwmy3564 [address] [facility] [place] [id number] CBC (AUTO) (42134)Ordered By : Post Graduate Intern on 08-30-2009 Erythrocyte distribution width (RBC) [Ratio] 15.3 % Abnormal 11.7-15.0 [facility] Internal Medicine Work Phone: Comment on above: PATIENT NOT FASTINGP ERFORMED BY: CB [facility] Aamdtc9596 [address] [facility] [place] [id number] Information: ADD P83125 AND DRAW FEE 99 6660 Hematocrit (Bld) [Volume fraction] 40.3 % Normal 34.0-44.0 [facility] Internal Medicine Work Phone: Comment on above: PATIENT NOT FASTINGP ERFORMED BY: CB [facility] Oonoqn2409 [address] [facility] [id number] Information: ADD Z24803 AND DRAW FEE 99 6660 Hemoglobin (Bld) [Mass/Vol] 14.0 g/dL Normal 11.5-15.0 [facility] Internal Medicine Work Phone: Comment on above: PATIENT NOT FASTINGP ERFORMED BY: TOBIN LabCojoseph FaganEtzclm2585 [facility] [id number] Information: ADD N52995 AND DRAW FEE 99 6660 MCH (RBC) [Entitic mass] 29.7 pg Normal 27.0-34.0 [facility] Internal Medicine Work Phone: Comment on above: PATIENT NOT FASTINGP ERFORMED BY: LabCoStephen [place]ille 4714970 [facility] [id number] Information: ADD I48647 AND DRAW FEE 99 6660 MCHC (RBC) [Mass/Vol] 34.8 g/dL Normal 32.0-36.0 [facility] Internal Medicine Work Phone: Comment on above: PATIENT NOT FASTINGP ERFORMED BY: TOBIN LabCoMonmouth Medical CenterFdbmdx2220 [facility] [id number] Information: ADD Z72437 AND DRAW FEE 99 6660 MCV (RBC) [Entitic vol] 85 fL Normal 80-98 [facility] Internal Medicine Work Phone: Comment on above: PATIENT NOT FASTINGP ERFORMED BY: TOBIN [facility] Wpuknb9202 [facility] [id number] Information: ADD B31018 AND DRAW FEE 99 6660 Platelets (Bld) [#/Vol] 306 {x10E3/uL} Normal 140-415 [facility] Internal Medicine Work Phone: Comment on above: PATIENT NOT FASTINGP ERFORMED BY: LabCo Egzdhz2681 [facility] [id number] Information: ADD G09320 AND DRAW FEE 99 6660 Platelets (Bld) [#/Vol] 306 10*3/uL Normal 140-415 [facility] Internal Medicine; [facility] Work Phone: RBC (Bld) [#/Vol] 4.72 {x10E6/uL} Normal 3.80-5.10 [facility] Work Phone: Comment on above: PATIENT NOT FASTINGP ERFORMED BY: VastechAscension Borgess Hospital6370 [facility] [id number] Information: ADD I67078 AND DRAW FEE 99 6660 RBC (Bld) [#/Vol] 4.72 10*6/uL Normal 3.80-5.10 [facility]; [facility] Work Phone: WBC (Bld) [#/Vol] 14.1 {x10E3/uL} Abnormal 4.0-10.5 Co [facility] Internal Medicine Work Phone: Comment on above: PATIENT NOT FASTINGP ERFORMED BY: [facility]6370 [facility] [id number] Information: ADD [id number] AND DRAW FEE 99 6660 WBC (Bld) [#/Vol] 14.1 10*3/uL Abnormal 4.0-10.5 [facility] Internal Medicine; [facility] Work Phone: SED RATE ERYTHROCYTE (81126) Ordered By: Post Graduate Intern on 08-30-2009 ESR (Bld) [Velocity] 5 mm/h Normal 0-20 [facility] Internal Medicine Work Phone: Comment on above: PATIENT NOT FASTINGP ERFORMED BY: [facility]6370 [facility] [id number] Rapid Flu (41303 x 2)Ordered By: Cyndy Krishnamurthy on 02-26-2009 FLUAV Ag IA Ql (Throat) Negative Normal [facility] Work Phone: FLUAV Ag IA Ql (Throat) Negative Normal [facility]; [facility] Work Phone: HEPATIC FUNCTION PANEL (8007 6)Ordered By: Lisa Ziegler on 02-04-2009 Albumin [Mass/Vol] 4.4 g/dL Normal 3.5-5.5 [facility] Internal Medicine Work Phone: Comment on above: PATIENT NOT FASTINGC linical Information: ADD [id number],[id number] PERFORMED BY: TOBIN [employer] Ulfzar4276 [address] [facility] [id number] ALP [Catalytic activity/Vol] 39 [iU]/L Normal 25-150 [facility] Work Phone: Comment on above: PATIENT NOT FASTINGC linical Information: ADD [id number],[id number] PERFORMED BY: LabSaint [facility] Bmithf3756 Jenkins RoadBlowing Rock Hospitalin [place] [id number] ALP [Catalytic activity/Vol] 39 U/L Normal 25-150 [facility]; [facility] Work Phone: ALT [Catalytic activity/Vol] 12 [iU]/L Normal 0-40 [facility] Work Phone: Comment on above: PATIENT NOT FASTINGC linical Information: ADD [id number],[id number] PERFORMED BY: LabH-art (WPP) Amhlmr6867 [address] [facility] [id number] ALT [Catalytic activity/Vol] 12 U/L Normal 0-40 [facility]; [facility] Work Phone: AST [Catalytic activity/Vol] 14 [iU]/L Normal 0-40 [facility] Work Phone: Comment on above: PATIENT NOT FASTINGC linical Information: ADD [id number],[id number] PERFORMED BY: LabH-art (WPP) Obdfxw6704 [facility] [id number] AST [Catalytic activity/Vol] 14 U/L Normal 0-40 [facility]; [facility] Work Phone: Bilirubin [Mass/Vol] 0.2 mg/dL Normal 0.1-1.2 Comp [facility] Internal Medicine Work Phone: Comment on above: PATIENT NOT FASTINGC linical Information: ADD [id number] PERFORMED BY: LabSaint [facility] Yfnxbx2614 [facility] [id number] Bilirubin.direct [Mass/Vol] 0.08 mg/dL Normal 0.00-0.40 [facility] Work Phone: Comment on above: PATIENT NOT FASTINGC linical Information: ADD [id number] PERFORMED BY: Sophia GeneticsMonmouth Medical CenterYnzkns1005 [facility] [id number] Protein [Mass/Vol] 7.2 g/dL Normal 6.0-8.5 [facility] Internal Medicine Work Phone: Comment on above: PATIENT NOT FASTINGC linical Information: ADD [id number] PERFORMED BY: [address] [id number] INFCT AGT ANTIGEN DIRECT LILIBETH URESCENT ASSAY; INFLUENZA B VIRUS (57399)Ordered By: Lisa Ziegler on 02-01-2009 H. influenzae B Ag IF Ql (Unsp spec) Negative Normal [facility] Work Phone: Comment on above: neg H. influenzae B Ag IF Ql (Unsp spec) Negative Normal [facility]; [facility] Work Phone: CBC with manual diff (25106) Ordered By: Cherelle Blankenship on 09-13-2008 Basophils (Bld) [#/Vol] 0.0 {x10E3/uL} Normal 0.0-0.2 [facility] Work Phone: Comment on above: PATIENT NOT FASTINGC linical Information: ADD DRAW FEE [id number] ADD J 71299 PERFORMED BY: Sophia GeneticsMonmouth Medical CenterQldufu5515 [facility] [id number] Basophils (Bld) [#/Vol] 0.0 10*3/uL Normal 0.0-0.2 [facility]; [facility] Work Phone: Basophils/100 WBC (Bld) 0 % Normal 0-3 [facility] Work Phone: Comment on above: PATIENT NOT FASTINGC linical Information: ADD DRAW FEE [id number] ADD J 05755 PERFORMED BY: Sophia GeneticsStephen Ville 4714970 [facility] [id number] Eosinophils (Bld) [#/Vol] 0.3 {x10E3/uL} Normal 0.0-0.4 [facility] Work Phone: Comment on above: PATIENT NOT FASTINGC linical Information: ADD DRAW FEE 934618 ADD J 80970 PERFORMED BY: VastechAscension Borgess Hospital6370 [facility] [id number] Eosinophils (Bld) [#/Vol] 0.3 10*3/uL Normal 0.0-0.4 [facility]; [facility] Work Phone: Eosinophils/100 WBC (Bld) 2 % Normal 0-7 [facility] Work Phone: Comment on above: PATIENT NOT FASTINGC linical Information: ADD DRAW FEE 729209 ADD J 35422 PERFORMED BY: VastechJessica V[place] 1574470 [facility] [id number] Erythrocyte distribution width (RBC) [Ratio] 14.7 % Normal 11.7-15.0 [facility] Work Phone: Comment on above: PATIENT NOT FASTINGC linical Information: ADD DRAW FEE 196414 ADD J 91015 PERFORMED BY: [address] [id number] Hematocrit (Bld) [Volume fraction] 41.7 % Normal 34.0-44.0 [facility] Work Phone: Comment on above: PATIENT NOT FASTINGC linical Information: ADD DRAW FEE 314339 ADD J 23614 PERFORMED BY: VastechJessica V[place] 1574470 [facility] [id number] Hemoglobin (Bld) [Mass/Vol] 13.9 g/dL Normal 11.5-15.0 [facility] Work Phone: Comment on above: PATIENT NOT FASTINGC linical Information: ADD DRAW FEE [id number] ADD J [id number] PERFORMED BY: [place]aste[place]ica [place] [id number] [facility] [id number] Lymphocytes (Bld) [#/Vol] 3.6 {x10E3/uL} Normal 0.7-4.5 [facility] Work Phone: Comment on above: PATIENT NOT FASTINGC linical Information: ADD DRAW FEE [id number] ADD J [id number] PERFORMED BY: [address] [id number] Lymphocytes (Bld) [#/Vol] 3.6 10*3/uL Normal 0.7-4.5 [facility]; [facility] Work Phone: Lymphocytes/100 WBC (Bld) 28 % Normal 14-46 [facility] Work Phone: Comment on above: PATIENT NOT FASTINGC linical Information: ADD DRAW FEE 103485 ADD J [id number] PERFORMED BY: TOBIN [facility] Usgwrx7556 [facility] [id number] MCH (RBC) [Entitic mass] 28.4 pg Normal 27.0-34.0 [facility] Internal Medicine Work Phone: Comment on above: PATIENT NOT FASTINGC linical Information: ADD DRAW FEE [id number] ADD J [id number] PERFORMED BY: TOBIN [facility]Saint [facility] Cemcv[address] [place] [address] [id number] MCHC (RBC) [Mass/Vol] 33.2 g/dL Normal 32.0-36.0 [facility] Internal Medicine Work Phone: Comment on above: PATIENT NOT FASTINGC linical Information: ADD DRAW FEE 744242 ADD J [id number] PERFORMED BY: TOBIN [facility]chAsc[facility] Borgess Hospital6370 [facility] [id number] MCV (RBC) [Entitic vol] 86 fL Normal 80-98 [facility] Internal Medicine Work Phone: Comment on above: PATIENT NOT FASTINGC linical Information: ADD DRAW FEE 048773 ADD J 11288 PERFORMED BY: [facility]Asc[facility] Hospital[address] [place] [address] [id number] Monocytes (Bld) [#/Vol] 0.4 {x10E3/uL} Normal 0.1-1.0 [facility] Internal Medicine Work Phone: Comment on above: PATIENT NOT FASTINGC linical Information: ADD DRAW FEE 043702 ADD J 06939 PERFORMED BY: Vastech[address] [id number] Monocytes (Bld) [#/Vol] 0.4 10*3/uL Normal 0.1-1.0 [facility]; [facility] Internal Medicine Work Phone: Monocytes/100 WBC (Bld) 3 % Abnormal 4-13 [facility] Work Phone: Comment on above: PATIENT NOT FASTINGC linical Information: ADD DRAW FEE 780858 ADD J [id number] PERFORMED BY: TOBIN [employer]70 [facility] [id number] Neutrophils (Bld) [#/Vol] 8.6 {x10E3/uL} Abnormal 1.8-7.8 [facility] Work Phone: Comment on above: PATIENT NOT FASTINGC linical Information: ADD DRAW FEE 113960 ADD J [id number] PERFORMED BY: TOBIN [employer]70 [facility] [id number] Neutrophils (Bld) [#/Vol] 8.6 10*3/uL Abnormal 1.8-7.8 [facility]; [facility] Work Phone: Neutrophils/100 WBC (Bld) 67 % Normal 40-74 [facility] Work Phone: Comment on above: PATIENT NOT FASTINGC linical Information: ADD DRAW FEE 964458 ADD J 17556 PERFORMED BY: TOBIN ViewCast6370 [facility] [id number] Platelets (Bld) [#/Vol] 368 {x10E3/uL} Normal 140-415 [facility] Work Phone: Comment on above: Effective September 17, 2008, the reference interval for Platelet Count, will be changing to: . 0 - 7 days 150 - 381 8 - 30 days 150 - 477 31- 90 days 150 - 579 91 days - up 1 year 150 - 496 1 - 7 years 150 - 440 8 - 17 years 150 - 349 Adult 140 - 415 PATIENT NOT FASTINGC linical Information: ADD DRAW FEE 700908 ADD J [id number] PERFORMED BY: netFactor70 [facility] [id number] Platelets (Bld) [#/Vol] 368 10*3/uL Normal 140-415 [facility]; [facility] Work Phone: RBC (Bld) [#/Vol] 4.87 {x10E6/uL} Normal 3.80-5.10 [facility] Work Phone: Comment on above: PATIENT NOT FASTINGC linical Information: ADD DRAW FEE 539056 ADD J 13862 PERFORMED BY: [employer] Rsneor3339 [facility] [id number] RBC (Bld) [#/Vol] 4.87 10*6/uL Normal 3.80-5.10 [facility]; [facility] Work Phone: WBC (Bld) [#/Vol] 12.9 {x10E3/uL} Abnormal 4.0-10.5 [facility] Work Phone: Comment on above: PATIENT NOT FASTINGC linical Information: ADD DRAW FEE [id number] ADD J [id number] PERFORMED BY: [employer] Txwxlj1810 [facility] [id number] WBC (Bld) [#/Vol] 12.9 10*3/uL Abnormal 4.0-10.5 Compr ensive Internal Medicine; [facility] Work Phone: Rapid Flu ([phone] x 2)Ordered By: Chantell Thomas on 09-13-2008 FLUAV Ag IA Ql (Throat) Negative Normal [facility] Work Phone: Comment on above: done BC FLUAV Ag IA Ql (Throat) Negative Normal [facility]; [facility] Work Phone: Urinalysis, Office ([phone])Or dered By: Chantell Thomas on 09-13-2008 Bilirubin Ql (U) Negative Normal Comprehe nsive Internal Medicine Work Phone: Bilirubin Ql (U) Negative Normal Comprehe nsive Internal Medicine; [facility] Work Phone: Glucose Test strip (U) [Mass/Vol] Negative Normal [facility] Work Phone: Glucose Test strip (U) [Mass/Vol] Negative Normal [facility]; [facility] Work Phone: Hemoglobin Ql (U) Negative Normal Compreh ensive Internal Medicine Work Phone: Hemoglobin Ql (U) Negative Normal Compreh ensive Internal Medicine; [facility] Work Phone: Ketones Ql (U) Negative Normal Comprehens mona Internal Medicine Work Phone: Ketones Ql (U) Negative Normal Comprehens [facility]; [facility] Work Phone: Leukocyte esterase Test strip Ql (U) Negative Normal [facility] Work Phone: Leukocyte esterase Test strip Ql (U) Negative Normal [facility]; [facility] Work Phone: Nitrite Ql (U) Negative Normal Comprehens [facility] Work Phone: Nitrite Ql (U) Negative Normal Comprehens [facility]; [facility] Work Phone: pH (U) 7.5 [pH] Normal [facility] Work Phone: Protein Ql (U) Negative Normal Comprehens [facility] Work Phone: Protein Ql (U) Negative Normal Comprehens [facility]; [facility] Work Phone: Specific gravity (U) [Rel density] 1.000 1 Normal [facility] Work Phone: Urobilinogen (24H U) [Mass/Time] Normal Normal [facility] Work Phone: LIPID PANEL ([id number])Ordered B y: Lisa Ziegler on 08-06-2008 Cholesterol [Mass/Vol] 151 mg/dL Normal 100-199 [facility] Work Phone: Comment on above: PATIENT NOT FASTINGP ERFORMED BY: [email or web address] [facility] [id number] Cholesterol in HDL [Mass/Vol] 55 mg/dL Normal [facility] Work Phone: Comment on above: According to ATP-III Guidelines, HDL-C >59 mg/dL is considered anegative risk factor for CHD. PATIENT NOT FASTINGP ERFORMED BY: [place] [employer]6370 [facility] [id number] Cholesterol in LDL [Mass/Vol] 72 mg/dL Normal 0-99 [facility] Work Phone: Comment on above: PATIENT NOT FASTINGP ERFORMED BY: TOBIN [facility] Dznbjc4315 [facility] [id number] Cholesterol in LDL/Cholesterol in HDL [Mass ratio] 1.3 {ratio_units} Normal 0.0-3.2 [facility] Work Phone: Comment on above: PATIENT NOT FASTINGP ERFORMED BY: TOBIN LabCo Vytgrc7806 [facility] [id number] Cholesterol in VLDL [Mass/Vol] 24 mg/dL Normal 5-40 [facility] Work Phone: Comment on above: PATIENT NOT FASTINGP ERFORMED BY: TOBIN LabJudson FaganUsmmhu4344 [facility] [id number] Triglyceride [Mass/Vol] 121 mg/dL Normal 0-149 [facility] Work Phone: Comment on above: PATIENT NOT FASTINGP ERFORMED BY: TOBIN Huitron Hnwpak0733 [facility] [id number] METABOLIC PANEL, COMPREHENSI VE ([id number])Ordered By: Lisa Ziegler on 08-06-2008 Albumin [Mass/Vol] 4.5 g/dL Normal 3.5-5.5 [facility] Internal Medicine Work Phone: Comment on above: PATIENT NOT FASTINGC linical Information: [id number] PERFORMED BY: TOBIN Alvarez6370 [facility] [id number] Albumin/Globulin [Mass ratio] 1.6 {ratio} Normal 1.1-2.5 [facility] Work Phone: Comment on above: PATIENT NOT FASTINGC linical Information: [id number] PERFORMED BY: TOBIN LabTucker Suyvhd2861 [facility] [id number] ALP [Catalytic activity/Vol] 44 [iU]/L Normal 25-150 [facility] Work Phone: Comment on above: PATIENT NOT FASTINGC linical Information: [id number] PERFORMED BY: TOBIN Faganlin6370 [facility] [id number] ALP [Catalytic activity/Vol] 44 U/L Normal 25-150 [facility]; [facility] Work Phone: ALT [Catalytic activity/Vol] 13 [iU]/L Normal 0-40 [facility] Work Phone: Comment on above: PATIENT NOT FASTINGC linical Information: [id number] PERFORMED BY: TOBIN Huitron Czcjlw5242 [facility] [id number] ALT [Catalytic activity/Vol] 13 U/L Normal 0-40 [facility]; [facility] Work Phone: AST [Catalytic activity/Vol] 13 [iU]/L Normal 0-40 [facility] Internal Medicine Work Phone: Comment on above: PATIENT NOT FASTINGC linical Information: [id number] PERFORMED BY: TOBIN Faganlin6370 [facility] [id number] AST [Catalytic activity/Vol] 13 U/L Normal 0-40 [facility]; [facility] Work Phone: Bilirubin [Mass/Vol] 0.2 mg/dL Normal 0.1-1.2 [facility] Work Phone: Comment on above: PATIENT NOT FASTINGC linical Information: [id number] PERFORMED BY: TOBIN Alvarez6370 [facility] [id number] Calcium [Mass/Vol] 9.8 mg/dL Normal 8.5-10.6 [facility] Internal Medicine Work Phone: Comment on above: PATIENT NOT FASTINGC linical Information: [id number] PERFORMED BY: TOBIN [facility]chSaint [facility] Xkksty7132 [facility] [id number] Chloride [Moles/Vol] 107 mmol/L Normal 97-108 Comp [facility] centerensive [facility] Work Phone: Comment on above: PATIENT NOT FASTINGC linical Information: [id number] PERFORMED BY: TOBIN Huitron Monktr3996 [facility] [id number] CO2 [Moles/Vol] 22 mmol/L Normal 20-32 [facility] Internal [facility] Work Phone: Comment on above: PATIENT NOT FASTINGC linical Information: [id number] PERFORMED BY: TOBIN [employer] Tlbqze1105 [facility] [id number] Creatinine [Mass/Vol] 0.90 mg/dL Normal 0.57-1.00 [facility] Work Phone: Comment on above: PATIENT NOT FASTINGC linical Information: [id number] PERFORMED BY: TOBIN [employer] Omftiw9598 [facility] [id number] GFR/1.73 sq M predicted among blacks MDRD (S/P/Bld) [Vol rate/Area] mL/min/{1.73_m2} Normal [facility] Work Phone: Comment on above: Note: Persistent red uction for 3 months or more in an eGFR<60 mL/min/1.73 m2 defines CKD. Patients with eGFR values>/=60 mL/min/1.73 m2 may also have CKD if evidence of persistentproteinuria is present. Additional information may be found [email or web address]. PATIENT NOT FASTINGC linical Information: [id number] PERFORMED BY: TOBIN [employer] Ymthxt0277 [facility] [id number] GFR/1.73 sq M.predicted MDRD (S/P/Bld) [Vol rate/Area] mL/min/{1.73_m2} Normal [facility] Work Phone: Comment on above: PATIENT NOT FASTINGC linical Information: [id number] PERFORMED BY: TOBIN [employer] Kwnksl1268 [facility] [id number] Globulin (S) [Mass/Vol] 2.9 g/dL Normal 1.5-4.5 [facility] Work Phone: Comment on above: PATIENT NOT FASTINGC linical Information: [id number] PERFORMED BY: TOBIN [employer]Co Yzioek9417 [facility] [id number] Glucose [Mass/Vol] 87 mg/dL Normal 65-99 [facility] Internal Medicine Work Phone: Comment on above: PATIENT NOT FASTINGC linical Information: [id number] PERFORMED BY: TOBIN [employer]Co Bhvzzl5783 [facility] [id number] Potassium [Moles/Vol] 4.5 mmol/L Normal 3.5-5.2 [facility] Internal Medicine Work Phone: Comment on above: PATIENT NOT FASTINGC linical Information: [id number] PERFORMED BY: TOBIN LabTucker Fnnqnf8679 [facility] [id number] Protein [Mass/Vol] 7.4 g/dL Normal 6.0-8.5 [facility] Internal Medicine Work Phone: Comment on above: PATIENT NOT FASTINGC linical Information: [id number] PERFORMED BY: TOBIN [employer] Iqtofm3460 [facility] [id number] Sodium [Moles/Vol] 141 mmol/L Normal 135-145 [facility] Internal Medicine Work Phone: Comment on above: PATIENT NOT FASTINGC linical Information: [id number] PERFORMED BY: TOBIN LabJudson Alvarez6370 [facility] [id number] Urea nitrogen [Mass/Vol] 8 mg/dL Normal 5-26 [facility] Internal Medicine Work Phone: Comment on above: PATIENT NOT FASTINGC linical Information: [id number] PERFORMED BY: TOBIN [facility]Co Hsvvel0013 [facility] [id number] Urea nitrogen/Creatinine [Mass ratio] 9 mg/mg Normal 8-27 [facility] Internal Medicine Work Phone: Comment on above: PATIENT NOT FASTINGC linical Information: [id number] PERFORMED BY: TOBIN LabJessica Ville 1574470 [facility] [id number] TSH ([id number])Ordered By: Marek Ziegler on 08-06-2008 TSH Qn 1.340 {uIU/mL} Normal 0.450-4.50 0 [facility] Work Phone: Comment on above: PATIENT NOT FASTINGP ERFORMED BY: TOBIN [facility] Kbuylm9944 [facility] [id number] Urine Test, Office (69130)Ordered By: Chantell Thomas on 03-12-2008 Beta HCG ( test) Ql (U) Negative Normal [facility] Work Phone: Urine Test, Office (33484) Negative Normal [facility]; [facility] Work Phone: CARLOS (ANTINUCLEAR ANTIBODY) ( [phone])Ordered By: Lisa Ziegler on 12-28-2007 Nuclear Ab IF (S) [Titer] 27 AU/mL Normal 0-99 [facility] Work Phone: Comment on above: Negative <100 Equivo tash 100 - 120 Positive >120 PATIENT NOT FASTINGP ERFORMED BY: TOBIN [facility] Hlumle8207 [facility] [id number] CARLOS (ANTINUCLEAR ANTIBODY) (10996) 27 AU/mL Normal 0-99 [facility]; [facility] Work Phone: C-REACTIVE PROTEIN ([phone])Or dered By: Lisa Ziegler on 12-28-2007 CRP [Mass/Vol] 3.2 mg/L Normal 0.0-4.9 [facility] Internal Medicine Work Phone: Comment on above: PATIENT NOT FASTINGP ERFORMED BY: TOBIN [facility] Xcelnx2399 [facility] [id number] CBC (AUTO) ([id number])Ordered By : Lisa Ziegler on 12-28-2007 Erythrocyte distribution width (RBC) [Ratio] 15.0 % Normal 11.7-15.0 [facility] Work Phone: Comment on above: PATIENT NOT FASTINGP ERFORMED BY: CB [facility] Mdhwne8071 [facility] [id number] Hematocrit (Bld) [Volume fraction] 39.4 % Normal 34.0-44.0 [facility] Internal Medicine Work Phone: Comment on above: PATIENT NOT FASTINGP ERFORMED BY: TOBIN Madhavi Alvarez6370 [facility] [id number] Hemoglobin (Bld) [Mass/Vol] 13.4 g/dL Normal 11.5-15.0 [facility] Internal Medicine Work Phone: Comment on above: PATIENT NOT FASTINGP ERFORMED BY: TOBIN LabCoMonmouth Medical CenterAzwxht2628 [facility] [id number] MCH (RBC) [Entitic mass] 28.9 pg Normal 27.0-34.0 [facility] Internal Medicine Work Phone: Comment on above: PATIENT NOT FASTINGP ERFORMED BY: TOBIN oNhemiSaint Mary'S Health Center Npgieq5159 [facility] [id number] MCHC (RBC) [Mass/Vol] 33.9 g/dL Normal 32.0-36.0 [facility] Internal Medicine Work Phone: Comment on above: PATIENT NOT FASTINGP ERFORMED BY: TOBIN [employer]Co Hkdzvx3326 [facility] [id number] MCV (RBC) [Entitic vol] 86 fL Normal 80-98 [facility] Internal Medicine Work Phone: Comment on above: PATIENT NOT FASTINGP ERFORMED BY: TOBIN LabAscension Borgess Hospital6370 [facility] [id number] Platelets (Bld) [#/Vol] 317 {x10E3/uL} Normal 140-415 [facility] Work Phone: Comment on above: PATIENT NOT FASTINGP ERFORMED BY: TOBIN LabCoMonmouth Medical CenterWvwlmp9398 [facility] [id number] Platelets (Bld) [#/Vol] 317 10*3/uL Normal 140-415 [facility]; [facility] Work Phone: RBC (Bld) [#/Vol] 4.61 {x10E6/uL} Normal 3.80-5.10 Co mprehensive [facility] Medicine Work Phone: Comment on above: PATIENT NOT FASTINGP ERFORMED BY: TOBIN [employer] Cgsctz8955 [facility] [id number] RBC (Bld) [#/Vol] 4.61 10*6/uL Normal 3.80-5.10 Compr ehensive Internal Medicine; [facility] Work Phone: WBC (Bld) [#/Vol] 9.6 {x10E3/uL} Normal 4.0-10.5 [facility] prehensive Internal Medicine Work Phone: Comment on above: PATIENT NOT FASTINGP ERFORMED BY: TOBIN LabH-art (WPP) Xblyug9440 [facility] [id number] WBC (Bld) [#/Vol] 9.6 10*3/uL Normal 4.0-10.5 Compre [facility]; [facility] Work Phone: Folate ([phone])Ordered By: Kassandra Ziegler on 12-28-2007 Folate [Mass/Vol] 21.0 ng/mL Normal Compreh ensive Internal Medicine Work Phone: Comment on above: Indeterminate: 3.4 - 5.4 Deficient: <3.4 PATIENT NOT FASTINGP ERFORMED BY: TOBIN LabH-art (WPP) Gtjrbl2421 [facility] [id number] GONADOTROPIN-FSH ([id number])Orde red By: Lisa Ziegler on 12-28-2007 GONADOTROPIN-FSH (44608) 6.1 m[iU]/mL Normal [facility] Work Phone: Comment on above: . Male Female 5th da y <0.2 - 4.6 <0.2 - 4.6 2 [...] 2.5 - 10.2 Midcycle 3.4 - 33.4 Luteal 1.5 - 9.1 <0.2 Postmenopausal 23.0 - 116.3 PATIENT NOT FASTINGP ERFORMED BY: TOBIN [facility] Njazlp3921 [address] RoadDublin [place] [id number] LIPID PANEL (96887)Ordered B y: Lisa Ziegler on 12-28-2007 Cholesterol [Mass/Vol] 175 mg/dL Normal 100-199 [facility] Work Phone: Comment on above: PATIENT NOT FASTINGP ERFORMED BY: TOBIN [facility] Fjnudl0592 [address] RoadDublin [place] [id number] Cholesterol in HDL [Mass/Vol] 52 mg/dL Normal 40-59 [facility] Work Phone: Comment on above: PATIENT NOT FASTINGP ERFORMED BY: TOBIN [facility] Etkcuu3248 [address] RoadD[address] [place] [id number] Cholesterol in LDL [Mass/Vol] 92 mg/dL Normal 0-99 [facility] Work Phone: Comment on above: PATIENT NOT FASTINGP ERFORMED BY: TOBIN [facility] Gqecce3471 [address] RoadDublin [place] [id number] Cholesterol in LDL/Cholesterol in HDL [Mass ratio] 1.8 {ratio_units} Normal 0.0-3.2 [facility] Work Phone: Comment on above: PATIENT NOT FASTINGP ERFORMED BY: CB [facility] Fijkwo5178 [address] RoadDublin [place] [id number] Cholesterol in VLDL [Mass/Vol] 31 mg/dL Normal 5-40 [facility] Work Phone: Comment on above: PATIENT NOT FASTINGP ERFORMED BY: CB [facility] Asuspb0508 [address] RoadDublin [place] [id number] Triglyceride [Mass/Vol] 155 mg/dL Abnormal 0-149 [facility] Work Phone: Comment on above: PATIENT NOT FASTINGP ERFORMED BY: CB [facility] Kekvni4425 [address] RoadDublin [place] [id number] METABOLIC PANEL, COMPREHENSI VE ([id number])Ordered By: Lisa Ziegler on 12-28-2007 Albumin [Mass/Vol] 4.5 g/dL Normal 3.5-5.5 [facility] Internal Medicine Work Phone: Comment on above: PATIENT NOT FASTINGP ERFORMED BY: CB [facility] Hotbgs6825 [address]Dublin [place] [id number] Albumin/Globulin [Mass ratio] 1.4 {ratio} Normal 1.1-2.5 [facility] Work Phone: Comment on above: PATIENT NOT FASTINGP ERFORMED BY: CB [facility] Yamshq4427 [address] RoadDublin [place] [id number] ALP [Catalytic activity/Vol] 42 [iU]/L Normal 25-150 [facility] Work Phone: Comment on above: PATIENT NOT FASTINGP ERFORMED BY: CB [facility] Ntqbgh9805 [address]Dublin [place] [id number] ALP [Catalytic activity/Vol] 42 U/L Normal 25-150 [facility]; [facility] Work Phone: ALT [Catalytic activity/Vol] 13 [iU]/L Normal 0-40 [facility] Work Phone: Comment on above: PATIENT NOT FASTINGP ERFORMED BY: CB [facility] Lkqccc6239 [address] [place] [id number] ALT [Catalytic activity/Vol] 13 U/L Normal 0-40 [facility]; [facility] Work Phone: AST [Catalytic activity/Vol] 19 [iU]/L Normal 0-40 [facility] Work Phone: Comment on above: PATIENT NOT FASTINGP ERFORMED BY: CB [facility] Jejche5461 [address]Dublin [place] [id number] AST [Catalytic activity/Vol] 19 U/L Normal 0-40 [facility]; [facility] Work Phone: Bilirubin [Mass/Vol] 0.2 mg/dL Normal 0.1-1.2 Comp coshocton regional medical centerensive Internal Medicine Work Phone: Comment on above: PATIENT NOT FASTINGP ERFORMED BY: CB [facility] Kxwlbx2104 [address]Dublin [place] [id number] Calcium [Mass/Vol] 9.5 mg/dL Normal 8.5-10.6 [facility] Internal Medicine Work Phone: Comment on above: PATIENT NOT FASTINGP ERFORMED BY: CB [facility] Wqpoea1675 [address]Dublin [place] [id number] Chloride [Moles/Vol] 101 mmol/L Normal 97-108 Comp rehensive Internal Medicine Work Phone: Comment on above: PATIENT NOT FASTINGP ERFORMED BY: CB [facility] Engtkv7070 [address]Dublin [place] [id number] CO2 [Moles/Vol] 22 mmol/L Normal 20-32 [facility] Internal Medicine Work Phone: Comment on above: PATIENT NOT FASTINGP ERFORMED BY: CB [facility] Lkynmp2651 [address]Dublin [place] [id number] Creatinine [Mass/Vol] 0.90 mg/dL Normal 0.57-1.00 [facility] Internal Medicine Work Phone: Comment on above: Please note refere nce interval change PATIENT NOT FASTINGP ERFORMED BY: CB [facility] Xqfeql8934 [address]Dublin [place] [id number] GFR/1.73 sq M predicted among blacks MDRD (S/P/Bld) [Vol rate/Area] mL/min/{1.73_m2} Normal 60-128 [facility] Work Phone: Comment on above: Note: Persistent red uction for 3 months or more in an eGFR<60 mL/min/1.73 m2 defines CKD. Patients with eGFR values>/=60 mL/min/1.73 m2 may also have CKD if evidence of persistentproteinuria is present. Additional information may be found [email or web address]. PATIENT NOT FASTINGP ERFORMED BY: CB [facility] Pvtjbu2817 [address] RoadDublin [place] [id number] GFR/1.73 sq M.predicted MDRD (S/P/Bld) [Vol rate/Area] mL/min/{1.73_m2} Normal 60-128 [facility] Internal Medicine Work Phone: Comment on above: PATIENT NOT FASTINGP ERFORMED BY: TOBIN LabCojoseph Zfgmvc2071 [address]blin [place] [id number] Globulin (S) [Mass/Vol] 3.2 g/dL Normal 1.5-4.5 [facility] Internal Medicine Work Phone: Comment on above: PATIENT NOT FASTINGP ERFORMED BY: CB [facility] Drqvyt6978 [address] [facility] [id number] Glucose [Mass/Vol] 81 mg/dL Normal 65-99 [facility] Internal Medicine Work Phone: Comment on above: PATIENT NOT FASTINGP ERFORMED BY: [facility] Ytoynd5521 [address] [facility] [id number] Potassium [Moles/Vol] 4.2 mmol/L Normal 3.5-5.2 [facility] Internal Medicine Work Phone: Comment on above: PATIENT NOT FASTINGP ERFORMED BY: [facility] Qmjafx5194 [address] [facility] [place] [id number] Protein [Mass/Vol] 7.7 g/dL Normal 6.0-8.5 [facility] Internal Medicine Work Phone: Comment on above: PATIENT NOT FASTINGP ERFORMED BY: CB [facility] Sxvnfl8176 [address] [facility] [id number] Sodium [Moles/Vol] 137 mmol/L Normal 135-145 [facility] Internal Medicine Work Phone: Comment on above: PATIENT NOT FASTINGP ERFORMED BY: CB [facility] Ebraww2523 [address] Roadblin [place] [id number] Urea nitrogen [Mass/Vol] 8 mg/dL Normal 5-26 [facility] Internal Medicine Work Phone: Comment on above: PATIENT NOT FASTINGP ERFORMED BY: CB [facility] Qtcaks5620 [address] RoadDublin [place] [id number] Urea nitrogen/Creatinine [Mass ratio] 9 mg/mg Normal 8- [facility] Work Phone: Comment on above: PATIENT NOT FASTINGP ERFORMED BY: CB [facility] Nzmbhm9193 [address] RoadDublin [place] [id number] RHEUMATOID FACTOR-QUANT (864 31)Ordered By: Lisa Ziegler on 12-28-2007 Rheumatoid factor Qn 8.2 {IU/mL} Normal 0.0-13.9 [facility] prehensive Internal Medicine Work Phone: Comment on above: PATIENT NOT FASTINGP ERFORMED BY: CB [facility] Gghmtp2408 [address] RoadDublin [place] [id number] Rheumatoid factor Qn 8.2 [IU]/mL Normal 0.0-13.9 [facility] prehensive Internal Medicine; [facility] Work Phone: SED RATE ERYTHROCYTE ([id number]) Ordered By: Lisa Ziegler on 12-28-2007 ESR (Bld) [Velocity] 1 mm/h Normal 0-20 [facility] Work Phone: Comment on above: PATIENT NOT FASTINGP ERFORMED BY: CB [facility] Psxsda9673 [address] RoadDublin [place] [id number] TSH ([id number])Ordered By: Marek Ziegler on 12-28-2007 TSH Qn 2.295 {uIU/mL} Normal 0.450-4.50 0 [facility] Work Phone: Comment on above: Please note refere nce interval change PATIENT NOT FASTINGP ERFORMED BY: CB [facility] Ankhws0901 [address] RoadDublin [place] [id number] VITAMIN B-12 (CYANOCOBALAMIN ) (20427)Ordered By: Lisa Ziegler on 12-28-2007 Cobalamin (Vitamin B12) [Mass/Vol] 511 pg/mL Normal 211-911 [facility] Work Phone: Comment on above: PATIENT NOT FASTINGP ERFORMED BY: CB [facility] Cpwjzo4787 Jenkins RoadDublin [place] [id number] Rapid Flu (05450 x 2)Ordered By: Maricarmen Cordova on 08-01-2007 FLUAV Ag IA Ql (Throat) Negative Normal [facility] Work Phone: Comment on above: neg FLUAV Ag IA Ql (Throat) Negative Normal [facility]; [facility] Work Phone: Amylase ([id number])Ordered By: Patel ebra Fast on 05-17-2007 Amylase [Catalytic activity/Vol] 32 U/L Normal 0-99 [facility] Work Phone: Comment on above: PATIENT NOT FASTINGP ERFORMED BY: TOBIN [facility] [id number] CBC WITH MANUAL DIFF (55467) Ordered By: Jessica Fast on 05-17-2007 Basophils (Bld) [#/Vol] 0.0 {x10E3/uL} Normal 0.0-0.2 [facility] Work Phone: Comment on above: PATIENT NOT FASTINGC linical Information: ADD DRAW FEE [id number] ADD J 33766 PERFORMED BY: TOBIN [facility] [id number] Basophils (Bld) [#/Vol] 0.0 10*3/uL Normal 0.0-0.2 [facility]; [facility] Work Phone: Basophils/100 WBC (Bld) 0 % Normal 0-3 [facility] Work Phone: Comment on above: PATIENT NOT FASTINGC linical Information: ADD DRAW FEE 137793 ADD J 18466 PERFORMED BY: TOBIN [facility] [id number] Eosinophils (Bld) [#/Vol] 0.1 {x10E3/uL} Normal 0.0-0.4 [facility] Work Phone: Comment on above: PATIENT NOT FASTINGC linical Information: ADD DRAW FEE 238489 ADD J 64490 PERFORMED BY: [employer]70 [address] [facility] [id number] Eosinophils (Bld) [#/Vol] 0.1 10*3/uL Normal 0.0-0.4 [facility]; [facility] Work Phone: Eosinophils/100 WBC (Bld) 1 % Normal 0-7 [facility] Work Phone: Comment on above: PATIENT NOT FASTINGC linical Information: ADD DRAW FEE 853649 ADD J 04806 PERFORMED BY: [employer] Lehugd2941 [facility] [id number] Erythrocyte distribution width (RBC) [Ratio] 15.2 % Abnormal 11.7-15.0 [facility] Work Phone: Comment on above: PATIENT NOT FASTINGC linical Information: ADD DRAW FEE 434179 ADD J 23796 PERFORMED BY: [employer] [id number] Hematocrit (Bld) [Volume fraction] 38.5 % Normal 34.0-44.0 [facility] Work Phone: Comment on above: PATIENT NOT FASTINGC linical Information: ADD DRAW FEE 053710 ADD J 85750 PERFORMED BY: [employer] [id number] Hemoglobin (Bld) [Mass/Vol] 13.1 g/dL Normal 11.5-15.0 [facility] Work Phone: Comment on above: PATIENT NOT FASTINGC linical Information: ADD DRAW FEE 084713 ADD J 36319 PERFORMED BY: [employer] [id number] Lymphocytes (Bld) [#/Vol] 3.6 {x10E3/uL} Normal 0.7-4.5 [facility] Work Phone: Comment on above: PATIENT NOT FASTINGC linical Information: ADD DRAW FEE 084969 ADD J 72651 PERFORMED BY: [employer] [id number] Lymphocytes (Bld) [#/Vol] 3.6 10*3/uL Normal 0.7-4.5 [facility]; [facility] Work Phone: Lymphocytes/100 WBC (Bld) 35 % Normal 14-46 [facility] Work Phone: Comment on above: PATIENT NOT FASTINGC linical Information: ADD DRAW FEE 952473 ADD J 06788 PERFORMED BY: TOBIN [employer] Brmsel1861 [facility] [id number] MCH (RBC) [Entitic mass] 29.8 pg Normal 27.0-34.0 [facility] Internal Medicine Work Phone: Comment on above: PATIENT NOT FASTINGC linical Information: ADD DRAW FEE 036921 ADD J 71007 PERFORMED BY: LabCooper County Memorial HospitalHaizeg7280 [address] [facility] [id number] MCHC (RBC) [Mass/Vol] 34.2 g/dL Normal 32.0-36.0 [facility] Internal Medicine Work Phone: Comment on above: PATIENT NOT FASTINGC linical Information: ADD DRAW FEE 162819 ADD J 48831 PERFORMED BY: [employer] Zpynvi4774 [facility] [id number] MCV (RBC) [Entitic vol] 87 fL Normal 80-98 [facility] Internal Medicine Work Phone: Comment on above: PATIENT NOT FASTINGC linical Information: ADD DRAW FEE 235499 ADD J 23066 PERFORMED BY: [employer] Dlbfbz5537 [facility] [id number] Monocytes (Bld) [#/Vol] 0.4 {x10E3/uL} Normal 0.1-1.0 [facility] Internal Medicine Work Phone: Comment on above: PATIENT NOT FASTINGC linical Information: ADD DRAW FEE 617747 ADD J 11174 PERFORMED BY: [facility]astechAscension Borgess Hospital6370 [facility] [id number] Monocytes (Bld) [#/Vol] 0.4 10*3/uL Normal 0.1-1.0 [facility]; [facility] Work Phone: Monocytes/100 WBC (Bld) 4 % Normal 4-13 [facility] Internal Medicine Work Phone: Comment on above: PATIENT NOT FASTINGC linical Information: ADD DRAW FEE 253049 ADD J 48055 PERFORMED BY: [employer] GeneticsMonmouth Medical CenterKdpkep9092 [facility] [id number] Neutrophils (Bld) [#/Vol] 6.1 {x10E3/uL} Normal 1.8-7.8 [facility] Work Phone: Comment on above: PATIENT NOT FASTINGC linical Information: ADD DRAW FEE 841658 ADD J 27135 PERFORMED BY: TOBIN [employer]eticsjoseph Kkbodn4143 [address] [facility] [id number] Neutrophils (Bld) [#/Vol] 6.1 10*3/uL Normal 1.8-7.8 [facility]; [facility] Work Phone: Neutrophils/100 WBC (Bld) 60 % Normal 40-74 [facility] Work Phone: Comment on above: PATIENT NOT FASTINGC linical Information: ADD DRAW FEE 033518 ADD J 89865 PERFORMED BY: TOBIN [employer] Geneticsjoseph Dcaucd9112 [address] [facility] [id number] Platelets (Bld) [#/Vol] 324 {x10E3/uL} Normal 140-415 [facility] Work Phone: Comment on above: PATIENT NOT FASTINGC linical Information: ADD DRAW FEE 128663 ADD J 75965 PERFORMED BY: TOBIN [employer]eticsjoseph Zrfzuh7979 [address] [facility]comGood [facility] [id number] Platelets (Bld) [#/Vol] 324 10*3/uL Normal 140-415 [facility]; [facility] Internal Medicine Work Phone: RBC (Bld) [#/Vol] 4.41 {x10E6/uL} Normal 3.80-5.10 [facility] Internal Medicine Work Phone: Comment on above: PATIENT NOT FASTINGC linical Information: ADD DRAW FEE 897725 ADD J 48757 PERFORMED BY: TOBIN [employer] Wwlxlf0593 [facility] [id number] RBC (Bld) [#/Vol] 4.41 10*6/uL Normal 3.80-5.10 [facility] Internal Medicine; [facility] Work Phone: WBC (Bld) [#/Vol] 10.2 {x10E3/uL} Normal 4.0-10.5 [facility] Internal Medicine Work Phone: Comment on above: PATIENT NOT FASTINGC linical Information: ADD DRAW FEE 465308 ADD J 33515 PERFORMED BY: TOBIN LabJudson FaganDjmzmo3165 [address] RoadDublin [place] [id number] WBC (Bld) [#/Vol] 10.2 10*3/uL Normal 4.0-10.5 Compr ehensive Internal Medicine; [facility] Work Phone: Lipase (63884)Ordered By: Matos Fast on 05-17-2007 Lipase [Catalytic activity/Vol] 38 U/L Normal 0-59 [facility] Work Phone: Comment on above: PATIENT NOT FASTINGP ERFORMED BY: TOBIN LabCojoseph Dctqzm5152 [address] RoadDublin [place] [id number] METABOLIC PANEL, COMPREHENSI VE (93408)Ordered By: Jessica Fast on 05-17-2007 Albumin [Mass/Vol] 4.2 g/dL Normal 3.5-5.5 Compre [facility] Internal Medicine Work Phone: Comment on above: PATIENT NOT FASTINGP ERFORMED BY: TOBIN [facility] Greiyv6310 [address] RoadDublin [place] [id number] Albumin/Globulin [Mass ratio] 1.4 {ratio} Normal 1.1-2.5 [facility] Work Phone: Comment on above: PATIENT NOT FASTINGP ERFORMED BY: TOBIN [facility] Dmcsrb7944 [address] RoadDublin [place] [id number] ALP [Catalytic activity/Vol] 75 [iU]/L Normal 25-150 [facility] Work Phone: Comment on above: PATIENT NOT FASTINGP ERFORMED BY: TOBIN [facility] Zhhddf4655 [address] RoadDublin [place] [id number] ALP [Catalytic activity/Vol] 75 U/L Normal 25-150 [facility]; [facility] Work Phone: ALT [Catalytic activity/Vol] 20 [iU]/L Normal 0-40 [facility] Work Phone: Comment on above: PATIENT NOT FASTINGP ERFORMED BY: TOBIN [facility] Fvcadc6500 [address] RoadDublin [place] [id number] ALT [Catalytic activity/Vol] 20 U/L Normal 0-40 [facility]; [facility] Work Phone: AST [Catalytic activity/Vol] 15 [iU]/L Normal 0-40 [facility] Internal Medicine Work Phone: Comment on above: PATIENT NOT FASTINGP ERFORMED BY: CB [facility] Wroadk6844 [address] RoadDublin [place] [id number] AST [Catalytic activity/Vol] 15 U/L Normal 0-40 [facility]; [facility] Internal Medicine Work Phone: Bilirubin [Mass/Vol] 0.2 mg/dL Normal 0.1-1.2 [facility] Work Phone: Comment on above: PATIENT NOT FASTINGP ERFORMED BY: TOBIN [facility] Deyjfg2275 [address] RoadDublin [place] [id number] Calcium [Mass/Vol] 9.5 mg/dL Normal 8.5-10.6 [facility] Internal Medicine Work Phone: Comment on above: PATIENT NOT FASTINGP ERFORMED BY: CB [facility] Eyjlda3330 [address] RoadDublin [place] [id number] Chloride [Moles/Vol] 103 mmol/L Normal 96-109 [facility] Internal Medicine Work Phone: Comment on above: PATIENT NOT FASTINGP ERFORMED BY: CB [facility] Bnhkrl3460 [address] RoadDublin [place] [id number] CO2 [Moles/Vol] 25 mmol/L Normal 20-32 [facility] Internal [facility] Work Phone: Comment on above: PATIENT NOT FASTINGP ERFORMED BY: CB [facility] Jfysdv8372 [address] RoadDublin [place] [id number] Creatinine [Mass/Vol] 0.8 mg/dL Normal 0.5-1.5 [facility] Internal Medicine Work Phone: Comment on above: PATIENT NOT FASTINGP ERFORMED BY: CB [facility] Hgutep2670 [address] RoadDublin [place] [id number] Globulin (S) [Mass/Vol] 2.9 g/dL Normal 1.5-4.5 [facility] Internal Medicine Work Phone: Comment on above: PATIENT NOT FASTINGP ERFORMED BY: TOBIN [facility] Vtrfyc9241 [address] [facility] [id number] Glucose [Mass/Vol] 95 mg/dL Normal 65-99 [facility] Internal Medicine Work Phone: Comment on above: PATIENT NOT FASTINGP ERFORMED BY: TOBIN LabCojoseph FaganOxleye8894 [address] [facility] [id number] Potassium [Moles/Vol] 3.8 mmol/L Normal 3.5-5.5 [facility] Internal Medicine Work Phone: Comment on above: PATIENT NOT FASTINGP ERFORMED BY: TOBIN LabCojoseph FaganZcfvbx6476 [facility] [id number] Protein [Mass/Vol] 7.1 g/dL Normal 6.0-8.5 [facility] Internal Medicine Work Phone: Comment on above: PATIENT NOT FASTINGP ERFORMED BY: TOBIN LabJudson Rsnsqv0778 [facility] [id number] Sodium [Moles/Vol] 139 mmol/L Normal 135-148 [facility] Internal Medicine Work Phone: Comment on above: PATIENT NOT FASTINGP ERFORMED BY: TOBIN LabJudson FaganNzbeik5630 [facility] [id number] Urea nitrogen [Mass/Vol] 6 mg/dL Normal 5-26 [facility] Internal Medicine Work Phone: Comment on above: PATIENT NOT FASTINGP ERFORMED BY: TOBIN [facility] Azajhe5430 [facility] [id number] Urea nitrogen/Creatinine [Mass ratio] 8 mg/mg Normal 8-27 [facility] Internal Medicine Work Phone: Comment on above: PATIENT NOT FASTINGP ERFORMED BY: TOBIN [facility] Rchkan1297 [address] [facility] [id number] TSH ([id number])Ordered By: Jessica Bro on 05-17-2007 TSH Qn 3.270 {uIU/mL} Normal 0.350-5.50 0 [facility] Work Phone: Comment on above: PATIENT NOT FASTINGP ERFORMED BY: [facility]Saint [facility] Ampjfj7903 [facility] [id number] Vital Signs Date Time Vital Sign Value Performing Clinician Facility 09-18-2024 07:59-0400 Body height 170.[address] Lisa Ziegler DO Work Phone: [facility] 09-18-2024 07:59-0400 Body mass index (BMI) [Ratio] 31.8 kg/m2 Dr. Lisa Ziegler DO Work Phone: [facility] 09-18-2024 07:59-0400 Body weight 92.[address] Lisa Ziegler DO Work Phone: [facility] 09-18-2024 07:59-0400 Diastolic blood pressure 81 mm[Hg] Dr. Lisa Ziegler DO Work Phone: [facility] 09-18-2024 07:59-0400 Systolic blood pressure 126 mm[Hg] Dr. Lisa Ziegler DO Work Phone: [facility] 01-20-2023 08:27-0400 Body height 167.64 cm Isabel Guillen LPN [facility]; [facility] Work Phone: 01-20-2023 08:27-0400 Body mass index (BMI) [Ratio] 34.86 kg/m2 Isabel Wilmer PACHECO [facility]; [facility] Work Phone: 01-20-2023 08:27-0400 Body surface area Derived from formula 2.07 m2 Isabel Wilmer PACHECO [facility]; [facility] Work Phone: 01-20-2023 08:27-0400 Body temperature 98.1 [degF] Isabel Patriciarb SECRETARY [facility]; [facility] Work Phone: 01-20-2023 08:27-0400 Body weight 97.98 kg Isabel Wilmer PACHECO [facility]; [facility] Work Phone: 01-20-2023 08:27-0400 Diastolic blood pressure 80 mm[Hg] Isabel Guillen LPN [facility]; [facility] Work Phone: 01-20-2023 08:27-0400 Heart rate 66 /min Isabel Guillen LPN [facility]; [facility] Work Phone: 01-20-2023 08:27-0400 Respiratory rate 16 /min Isabel Guillen LPN [facility]; [facility] Work Phone: 01-20-2023 08:27-0400 SaO2% (BldA) [Mass fraction] 99 % Isabel Guillen LPN [facility]; [facility] Work Phone: 01-20-2023 08:27-0400 Systolic blood pressure 116 mm[Hg] Isabel Guillen LPN [facility]; [facility] Work Phone: 01-14-2023 07:27-0400 Body height 167.64 cm CHRISTIANO Gonzalez LPN [facility]; [facility] Work Phone: 01-14-2023 07:27-0400 Body mass index (BMI) [Ratio] 34.86 kg/m2 CHRISTIANO Gonzalez LPN [facility]; [facility] Work Phone: 01-14-2023 07:27-0400 Body surface area Derived from formula 2.07 m2 CHRISTIANO Gonzalez LPN [facility]; [facility] Work Phone: 01-14-2023 07:27-0400 Body temperature 97.6 [degF] CHRISTIANO Gonzalez LPN Comprehensiv e [facility]; [facility] Work Phone: 01-14-2023 07:27-0400 Body weight 97.98 kg CHRISTIANO Gonzalez LPN [facility]; [facility] Work Phone: 01-14-2023 07:27-0400 Diastolic blood pressure 78 mm[Hg] CHRISTIANO Gonzalez LPN [facility]; [facility] Work Phone: 01-14-2023 07:27-0400 Heart rate 80 /min CHRISTIANO Gonzalez LPN [facility]; [facility] Work Phone: 01-14-2023 07:27-0400 Respiratory rate 20 /min CHRISTIANOCARLTON Gonzalez SECRETARY Comprehens[facility]; [facility] Work Phone: 01-14-2023 07:27-0400 SaO2% (BldA) [Mass fraction] 98 % CHRISTIANO Gonzalez SECRETARY [facility]; [facility] Work Phone: 01-14-2023 07:27-0400 Systolic blood pressure 120 mm[Hg] CHRISTIANO Gonzalez SECRETARY [facility]; [facility] Work Phone: 09-11-2022 07:32-0400 Body height 167.64 cm Isabel Guillen LPN [facility]; [facility] Work Phone: 09-11-2022 07:32-0400 Body mass index (BMI) [Ratio] 34.06 kg/m2 Isabel Guillen LPN [facility]; [facility] Work Phone: 09-11-2022 07:32-0400 Body surface area Derived from formula 2.05 m2 Isabel Wilmer ROSEN [facility]; [facility] Work Phone: 09-11-2022 07:32-0400 Body temperature 97.4 [degF] Isabel Guillen LPN [facility]; [facility] Work Phone: 09-11-2022 07:32-0400 Body weight 95.71 kg Isabel Guillen LPN [facility]; [facility] Work Phone: 09-11-2022 07:32-0400 Diastolic blood pressure 78 mm[Hg] Isabel Slarb SECRETARY [facility]; [facility] Work Phone: 09-11-2022 07:32-0400 Heart rate 88 /min Isabel Slarb SECRETARY [facility]; [facility] Work Phone: 09-11-2022 07:32-0400 Respiratory rate 16 /min Isabel Patriciarb SECRETARY [facility]; [facility] Work Phone: 09-11-2022 07:32-0400 SaO2% (BldA) [Mass fraction] 99 % Isabel Guillen LPN [facility]; [facility] Work Phone: 09-11-2022 07:32-0400 Systolic blood pressure 116 mm[Hg] Isabel Guillen LPN [facility]; [facility] Work Phone: 08-20-2022 08:14-0400 Body height 170.[address] Lisa Ziegler Work Phone: [facility] 08-20-2022 08:08-0400 Body mass index (BMI) [Ratio] 33.4 kg/m2 Dr. Lisa Ziegler Work Phone: [facility] 08-20-2022 08:08-0400 Body weight 96.[address] Lisa Ziegler Work Phone: [facility] 08-20-2022 08:08-0400 Diastolic blood pressure 84 mm[Hg] Dr. Lisa Ziegler Work Phone: [facility] 08-20-2022 08:08-0400 Systolic blood pressure 136 mm[Hg] Dr. Lisa Ziegler Work Phone: [facility] 04-03-2022 07:58-0500 Body height 167.64 cm Eliecer Youssef LPN [facility]; [facility] Work Phone: 04-03-2022 07:58-0500 Body mass index (BMI) [Ratio] 34.48 kg/m2 Eliecer Youssef LPN [facility]; [facility] Work Phone: 04-03-2022 07:58-0500 Body surface area Derived from formula 2.06 m2 Eliecer Youssef LPN [facility]; [facility] Work Phone: 04-03-2022 07:58-0500 Body weight 96.89 kg Eilecer Youssef LPN [facility]; [facility] Work Phone: 04-03-2022 07:58-0500 Diastolic blood pressure 80 mm[Hg] Eliecer Youssef LPN [facility]; [facility] Work Phone: 04-03-2022 07:58-0500 Heart rate 92 /min Eliecer Youssef LPN [facility]; [facility] Work Phone: 04-03-2022 07:58-0500 Respiratory rate 16 /min Eliecer Youssef LPN [facility]; [facility] Work Phone: 04-03-2022 07:58-0500 SaO2% (BldA) [Mass fraction] 99 % Eliecer Youssef LPN [facility]; [facility] Work Phone: 04-03-2022 07:58-0500 Systolic blood pressure 120 mm[Hg] Eliecer Youssef LPN [facility]; [facility] Work Phone: 03-13-2022 08:09-0500 Body height 167.64 cm Eliecer Youssef LPN [facility]; [facility] Work Phone: 03-13-2022 08:09-0500 Body mass index (BMI) [Ratio] 34.7 kg/m2 Eliecer Youssef LPN [facility]; [facility] Work Phone: 03-13-2022 08:09-0500 Body surface area Derived from formula 2.06 m2 Eliecer Youssef LPN [facility]; [facility] Work Phone: 03-13-2022 08:09-0500 Body weight 97.52 kg Eliecer Youssef LPN [facility]; [facility] Work Phone: 03-13-2022 08:09-0500 Diastolic blood pressure 82 mm[Hg] Eliecer Youssef LPN [facility]; [facility] Work Phone: 03-13-2022 08:09-0500 Heart rate 85 /min Eliecer Youssef LPN [facility]; [facility] Work Phone: 03-13-2022 08:09-0500 Respiratory rate 16 /min Eliecer Youssef LPN [facility]; [facility] Work Phone: 03-13-2022 08:09-0500 SaO2% (BldA) [Mass fraction] 98 % Eliecer Youssef [facility]; [facility] Work Phone: 03-13-2022 08:09-0500 Systolic blood pressure 126 mm[Hg] Eliecer Youssef [facility]; [facility] Work Phone: 08-12-2021 08:24-0400 Body height 170.[address] Lisa Ziegler Work Phone: [facility] Work Phone: 08-12-2021 08:24-0400 Body mass index (BMI) [Ratio] 32.6 kg/m2 Dr. Lisa Ziegler Work Phone: [facility] Work Phone: 08-12-2021 08:24-0400 Body weight 94.[address] Lisa Ziegler Work Phone: [facility] Work Phone: 08-12-2021 08:24-0400 Diastolic blood pressure 76 mm[Hg] Dr. Lisa Ziegler Work Phone: [facility] Work Phone: 08-12-2021 08:24-0400 Systolic blood pressure 114 mm[Hg] Dr. Lisa Ziegler Work Phone: [facility] Work Phone: 06-16-2021 05:47-0500 Body mass index (BMI) [Ratio] 32.7 kg/m2 Dr. Lisa Ziegler Work Phone: [facility] Work Phone: 06-16-2021 05:47-0500 Body temperature 97.2 [degF] Dr. Lisa Ziegler Work Phone: [facility] Work Phone: 06-16-2021 05:47-0500 Body weight 94.[address] Lisa Ziegler Work Phone: [facility] Work Phone: 06-16-2021 05:47-0500 Diastolic blood pressure 74 mm[Hg] Dr. Lisa Ziegler Work Phone: [facility] Work Phone: 06-16-2021 05:47-0500 Heart rate 99 /min Dr. Lisa Ziegler Work Phone: [facility] Work Phone: 06-16-2021 05:47-0500 Respiratory rate 18 /min Dr. Lisa Ziegler Work Phone: [facility] Work Phone: 06-16-2021 05:47-0500 SaO2% (BldA) [Mass fraction] 98 % Dr. Lisa Ziegler Work Phone: [facility] Work Phone: 06-16-2021 05:47-0500 Systolic blood pressure 132 mm[Hg] Dr. Lisa Ziegler Work Phone: [facility] Work Phone: 04-03-2021 07:59-0500 Body height 167.64 cm Isabel Guillen LPN [facility]; [facility] Work Phone: 04-03-2021 07:59-0500 Body mass index (BMI) [Ratio] 33.61 kg/m2 Isabel Guillen LPN [facility]; [facility] Work Phone: 04-03-2021 07:59-0500 Body surface area Derived from formula 2.03 m2 Isabel Guillen LPN [facility]; [facility] Work Phone: 04-03-2021 07:59-0500 Body temperature 97.3 [degF] Isabel Guillen LPN [facility]; [facility] Work Phone: 04-03-2021 07:59-0500 Body weight 94.46 kg Isabel Guillen LPN [facility]; [facility] Work Phone: 04-03-2021 07:59-0500 Diastolic blood pressure 82 mm[Hg] Isabel Slarb SECRETARY [facility]; [facility] Work Phone: 04-03-2021 07:59-0500 Heart rate 95 /min Isabel Slarb SECRETARY [facility]; [facility] Work Phone: 04-03-2021 07:59-0500 Respiratory rate 17 /min Isabel Slarb SECRETARY [facility]; [facility] Work Phone: 04-03-2021 07:59-0500 SaO2% (BldA) [Mass fraction] 95 % Isabel Slarb SECRETARY [facility]; [facility] Work Phone: 04-03-2021 07:59-0500 Systolic blood pressure 130 mm[Hg] Isabel Slarb SECRETARY [facility]; [facility] Work Phone: 12-02-2020 11:48-0400 Body height 167.64 cm Samara Bruce [facility]; [facility] Work Phone: 12-02-2020 11:48-0400 Body mass index (BMI) [Ratio] 33.47 kg/m2 Samara Albrightius [facility]; [facility] Work Phone: 12-02-2020 11:48-0400 Body surface area Derived from formula 2.03 m2 Samara Bruce [facility]; [facility] Work Phone: 12-02-2020 11:48-0400 Body temperature 97 [degF] Samara Bruce [facility]; [facility] Work Phone: 12-02-2020 11:48-0400 Body weight 94.07 kg Samara Bruce [facility]; [facility] Work Phone: 12-02-2020 11:48-0400 Diastolic blood pressure 78 mm[Hg] Samara Bruce [facility] Work Phone: 12-02-2020 11:48-0400 Heart rate 91 /min Samara Bruce [facility] Work Phone: 12-02-2020 11:48-0400 Respiratory rate 18 /min Samara Bruce [facility]; [facility] Work Phone: 12-02-2020 11:48-0400 SaO2% (BldA) [Mass fraction] 97 % Samara Bruce [facility]; [facility] Work Phone: 12-02-2020 11:48-0400 Systolic blood pressure 122 mm[Hg] Samara Bruce [facility] Work Phone: 07-19-2020 07:42-0400 BMI (Body Mass Index) 32.66 kg/m2 Lisa Ziegler [facility]; [facility] Work Phone: Comment on above: Rechecked BP 136/78 07-19-2020 07:42-0400 Body Temperature 96.6 [degF] Lisa Ziegler [facility]; [facility] Work Phone: Comment on above: Method: Infrared Rechecked BP 136/78 07-19-2020 07:42-0400 Body weight 91.8 kg Lisa Ziegler [facility]; [facility] Work Phone: Comment on above: Rechecked BP 136/78 07-19-2020 07:42-0400 BP Diastolic 98 mm[Hg] Lisa Ziegler [facility]; [facility] Work Phone: Comment on above: Patient Position: Sitting; Cuff Location : Left Arm; Cuff Size: Standard Rechecked BP 136/78 07-19-2020 07:42-0400 BP Systolic 152 mm[Hg] Lisa Ziegler [facility]; [facility] Work Phone: Comment on above: Patient Position: Sitting; Cuff Location : Left Arm; Cuff Size: Standard Rechecked BP 136/78 07-19-2020 07:42-0400 BSA (Body Surface Area) 2.01 m2 Lisa Ziegler [facility]; [facility] Work Phone: Comment on above: Rechecked BP 136/78 07-19-2020 07:42-0400 Height 167.64 cm Lisa Ming [facility]; [facility] Work Phone: Comment on above: Rechecked BP 136/78 07-19-2020 07:42-0400 Pulse (Heart Rate) 77 /min Lisa Ming [facility]; [facility] Work Phone: Comment on above: Pattern: Regular Rechecked BP 136/78 07-19-2020 07:42-0400 Pulse Oximetry 99 % Lisa Ming [facility]; [facility] Work Phone: Comment on above: Room air Rechecked BP 136/78 07-19-2020 07:42-0400 Respiratory Rate 16 /min Lisa Ming [facility]; [facility] Work Phone: Comment on above: Pattern: Unlabored Rechecked BP 136/78 07-19-2020 07:42-0400 SaO2% (BldA) [Mass fraction] 99 % Lisayue Ziegler DO Work Phone: [facility]; [facility] Work Phone: 12-22-2019 11:19-0400 BMI (Body Mass Index) 31.86 kg/m2 Eliecer Youssef [facility] Work Phone: 12-22-2019 11:19-0400 Body weight 89.53 kg Eliecer Youssef SECRETARY [facility] Work Phone: 12-22-2019 11:19-0400 BSA (Body Surface Area) 1.[address] [facility] Work Phone: 12-22-2019 11:19-0400 Height 167.64 [address] [facility] Work Phone: 09-12-2019 10:33-0400 BMI (Body Mass Index) 31.86 kg/m2 Lisa Ziegler [facility] Work Phone: 09-12-2019 10:33-0400 Body Temperature 98.3 [degF] Lisa Ziegler [facility] Work Phone: Comment on above: Method: Temporal 09-12-2019 10:33-0400 Body weight 89.53 kg Lisa Ziegler [facility] Work Phone: 09-12-2019 10:33-0400 BP Diastolic 62 mm[Hg] Lisa Ziegler [facility] Work Phone: Comment on above: Patient Position: Sitting; Cuff Location : Left Arm; Cuff Size: Standard 09-12-2019 10:33-0400 BP Systolic 96 mm[Hg] Lisa Ziegler [facility] Work Phone: Comment on above: Patient Position: Sitting; Cuff Location : Left Arm; Cuff Size: Standard 09-12-2019 10:33-0400 BSA (Body Surface Area) 1.99 m2 Lisa Ziegler [facility] Work Phone: 09-12-2019 10:33-0400 Height 167.64 cm Lisa Ziegler [facility] Work Phone: 09-12-2019 10:33-0400 Pulse (Heart Rate) 92 /min Lisa Ziegler [facility] Work Phone: Comment on above: Pattern: Regular 09-12-2019 10:33-0400 Pulse Oximetry 97 % Lisa Ziegler [facility] Work Phone: Comment on above: Room air 09-12-2019 10:33-0400 Respiratory Rate 16 /min Lisa Ziegler [facility] Work Phone: Comment on above: Pattern: Unlabored 09-12-2019 10:33-0400 SaO2% (BldA) [Mass fraction] 97 % Lisa Ziegler DO Work Phone: [facility]; [facility] Work Phone: 09-04-2019 08:57-0400 BMI (Body Mass Index) 32.28 kg/m2 Eliecer Youssef [facility] Work Phone: 09-04-2019 08:57-0400 Body Temperature 98.2 [degF] Eliecer Youssef [facility] Work Phone: Comment on above: Method: Temporal 09-04-2019 08:57-0400 Body weight 90.72 kg Eliecer Youssef LPN [facility] Work Phone: 09-04-2019 08:57-0400 BP Diastolic 80 mm[Hg] Eliecer Youssef [facility] Work Phone: Comment on above: Patient Position: Sitting; Cuff Location : Left Arm; Cuff Size: Standard 09-04-2019 08:57-0400 BP Systolic 162 mm[Hg] Eliecer Youssef [facility] Work Phone: Comment on above: Patient Position: Sitting; Cuff Location : Left Arm; Cuff Size: Standard 09-04-2019 08:57-0400 BSA (Body Surface Area) [address] [facility] Work Phone: 09-04-2019 08:57-0400 Height 167.64 cm Eliecer Youssef SECRETARY [facility] Work Phone: 09-04-2019 08:57-0400 Pulse (Heart Rate) 94 /min Eliecer Youssef [facility] Work Phone: Comment on above: Pattern: Regular 09-04-2019 08:57-0400 Pulse Oximetry 97 % Lisa Ziegler [facility] Work Phone: Comment on above: Room air 09-04-2019 08:57-0400 Respiratory Rate 16 /min Eliecer Youssef SECRETARY [facility] Work Phone: Comment on above: Pattern: Unlabored 09-04-2019 08:57-0400 SaO2% (BldA) [Mass fraction] 97 % Eliecer Youssef [facility]; [facility] Work Phone: 08-30-2019 08:30-0400 BMI (Body Mass Index) 32.76 kg/m2 Isabel Guillen [facility] Work Phone: Comment on above: pt did not report 08-30-2019 08:30-0400 Body weight 92.[address] [facility] Work Phone: Comment on above: pt did not report 08-30-2019 08:30-0400 BSA (Body Surface Area) 2.01 m2 Isabel Guillen [facility] Work Phone: Comment on above: pt did not report 08-30-2019 08:30-0400 Height 167.64 cm Isabel Guillen [facility] Work Phone: Comment on above: pt did not report 07-21-2019 07:36-0400 BMI (Body Mass Index) 32.76 kg/m2 Samara Bruce [facility] Work Phone: 07-21-2019 07:36-0400 Body Temperature 97.2 [degF] Samara Bruce [facility] Work Phone: Comment on above: Method: Temporal 07-21-2019 07:36-0400 Body weight 92.08 kg Samara Burce [facility] Work Phone: 07-21-2019 07:36-0400 BP Diastolic 70 mm[Hg] Samara Bruce [facility] Work Phone: Comment on above: Patient Position: Sitting; Cuff Location : Left Arm; Cuff Size: Standard 07-21-2019 07:36-0400 BP Systolic 123 mm[Hg] Samara Bruce [facility] Work Phone: Comment on above: Patient Position: Sitting; Cuff Location : Left Arm; Cuff Size: Standard 07-21-2019 07:36-0400 BSA (Body Surface Area) 2.01 m2 Samara Bruce [facility] Work Phone: 07-21-2019 07:36-0400 Height 167.64 cm Samara Bruce [facility] Work Phone: 07-21-2019 07:36-0400 Pulse (Heart Rate) 86 /min Samara Bruce [facility] Comprehens [facility] Work Phone: Comment on above: Pattern: Regular 07-21-2019 07:36-0400 Pulse Oximetry 96 % Lisa Ziegler [facility] Work Phone: Comment on above: Room air 07-21-2019 07:36-0400 Respiratory Rate 16 /min Samara Bruce [facility] Work Phone: Comment on above: Pattern: Unlabored 07-21-2019 07:36-0400 SaO2% (BldA) [Mass fraction] 96 % Samara Bruce [facility]; [facility] Work Phone: 03-14-2019 09:32-0500 BMI (Body Mass Index) 34.54 kg/m2 Isabel Slarb SECRETARY [facility] Work Phone: Comment on above: Standing BP 92/58 Pulse 115 03-14-2019 09:32-0500 Body Temperature 99.1 [degF] Isabel Slarb SECRETARY [facility] Work Phone: Comment on above: Standing BP 92/58 Pulse 115 03-14-2019 09:32-0500 Body weight 97.07 kg Isabel Slarb SECRETARY [facility] Work Phone: Comment on above: Standing BP 92/58 Pulse 115 03-14-2019 09:32-0500 BP Diastolic 62 mm[Hg] Isabel Slarb SECRETARY [facility] Work Phone: Comment on above: Patient Position: Sitting; Cuff Location : Left Arm; Cuff Size: Standard Standing BP 92/58 Pu lse 115 03-14-2019 09:32-0500 BP Systolic 102 mm[Hg] Isabel Slarb SECRETARY [facility] Work Phone: Comment on above: Patient Position: Sitting; Cuff Location : Left Arm; Cuff Size: Standard Standing BP 92/58 Pu lse 115 03-14-2019 09:32-0500 BSA (Body Surface Area) 2.06 m2 Isabel Slarb SECRETARY [facility] Work Phone: Comment on above: Standing BP 92/58 Pulse 115 03-14-2019 09:32-0500 Height 167.64 cm Isabel Slarb SECRETARY [facility] Work Phone: Comment on above: Standing BP 92/58 Pulse 115 03-14-2019 09:32-0500 Pulse (Heart Rate) 106 /min Isabel Slarb SECRETARY [facility] Work Phone: Comment on above: Pattern: Regular Standing BP 92/58 Pu lse 115 03-14-2019 09:32-0500 Respiratory Rate 16 /min Isabel Guillen LPN [facility] Work Phone: Comment on above: Pattern: Unlabored Standing BP 92/58 Pu lse 115 06-10-2018 10:33-0500 Body Temperature 96.6 [degF] Christianne Bundy MD Work Phone: [facility] Work Phone: Comment on above: Method: Oral 06-10-2018 10:33-0500 Body weight 97.07 kg Christianne Bundy MD Work Phone: [facility] Work Phone: 06-10-2018 10:33-0500 BP Diastolic 82 mm[Hg] Christianne Bundy MD Work Phone: [facility] Work Phone: Comment on above: Patient Position: Sitting 06-10-2018 10:33-0500 BP Systolic 107 mm[Hg] Christianne Bundy MD Work Phone: [facility] Work Phone: Comment on above: Patient Position: Sitting 06-10-2018 10:33-0500 Pulse (Heart Rate) 95 /min Christianne Bundy MD Work Phone: [facility] Work Phone: Comment on above: Pattern: Regular 06-10-2018 10:33-0500 Pulse Oximetry 96 % Lisa Ziegler [facility] Work Phone: Comment on above: Room air 06-10-2018 10:33-0500 Respiratory Rate 18 /min Christianne Bundy MD Work Phone: [facility] Work Phone: 06-10-2018 10:33-0500 SaO2% (BldA) [Mass fraction] 96 % Christianne Bundy MD Work Phone: [facility]; [facility] Work Phone: 02-01-2018 08:44-0400 BMI (Body Mass Index) 32.68 kg/m2 Catherine Bruno [facility] Work Phone: 02-01-2018 08:44-0400 Body Temperature 97.4 [degF] Catherine Bruno [facility] Work Phone: Comment on above: Method: Axillary 02-01-2018 08:44-0400 Body weight 91.85 kg Catherine Bruno [facility] Work Phone: 02-01-2018 08:44-0400 BP Diastolic 80 mm[Hg] Catherine Bruno [facility] Work Phone: Comment on above: Patient Position: Sitting; Cuff Location : Left Arm; Cuff Size: Standard 02-01-2018 08:44-0400 BP Systolic 118 mm[Hg] Catherine Bruno [facility] Work Phone: Comment on above: Patient Position: Sitting; Cuff Location : Left Arm; Cuff Size: Standard 02-01-2018 08:44-0400 BSA (Body Surface Area) 2.01 m2 Catherine Bruno [facility] Work Phone: 02-01-2018 08:44-0400 Height 167.64 cm Catherine Bruno [facility] Work Phone: 02-01-2018 08:44-0400 Pulse (Heart Rate) 89 /min Catherine Bruno [facility] Work Phone: Comment on above: Pattern: Regular 02-01-2018 08:44-0400 Pulse Oximetry 98 % Lisa Ziegler [facility] Work Phone: Comment on above: Room air 02-01-2018 08:44-0400 Respiratory Rate 17 /min Catherine Bruno [facility] Work Phone: Comment on above: Pattern: Unlabored 02-01-2018 08:44-0400 SaO2% (BldA) [Mass fraction] 98 % Catherine Bruno [facility]; [facility] Work Phone: 01-26-2018 09:27-0400 BMI (Body Mass Index) 33.41 kg/m2 Catherine Bruno [facility] Work Phone: 01-26-2018 09:27-0400 Body Temperature 97 [degF] Catherine Bruno [facility] Work Phone: Comment on above: Method: Temporal 01-26-2018 09:27-0400 Body weight 93.9 kg Catherine Bruno [facility] Work Phone: 01-26-2018 09:27-0400 BP Diastolic 86 mm[Hg] Catherine Bruno [facility] Work Phone: Comment on above: Patient Position: Sitting; Cuff Location : Left Arm; Cuff Size: Standard 01-26-2018 09:27-0400 BP Systolic 128 mm[Hg] Catherine Bruno [facility] Work Phone: Comment on above: Patient Position: Sitting; Cuff Location : Left Arm; Cuff Size: Standard 01-26-2018 09:27-0400 BSA (Body Surface Area) 2.03 m2 Catherine Bruno [facility] Work Phone: 01-26-2018 09:27-0400 Height 167.64 cm Catherine Bruno [facility] Work Phone: 01-26-2018 09:27-0400 Pulse (Heart Rate) 98 /min Catherine Bruno [facility] Work Phone: Comment on above: Pattern: Regular 01-26-2018 09:27-0400 Pulse Oximetry 97 % Lisa Ziegler [facility] Work Phone: Comment on above: Room air 01-26-2018 09:27-0400 Respiratory Rate 16 /min Catehrine Bruno [facility] Work Phone: Comment on above: Pattern: Unlabored 01-26-2018 09:27-0400 SaO2% (BldA) [Mass fraction] 97 % Catherine Bruno [facility]; [facility] Work Phone: 01-21-2018 11:03-0400 BMI (Body Mass Index) 33.41 kg/m2 No Mills RN [facility] Work Phone: Comment on above: sitting 110/80, 83standing 120/85, 01-21-2018 11:03-0400 Body Temperature 98.1 [degF] No Mills RN [facility] Work Phone: Comment on above: Method: Axillary sitting 110/80, 83st anding 120/85, 01-21-2018 11:03-0400 Body weight 93.9 kg No Mills RN [facility] Work Phone: Comment on above: sitting 110/80, 83standing 120/85, 01-21-2018 11:03-0400 BP Diastolic 82 mm[Hg] No Mills RN [facility] Work Phone: Comment on above: Patient Position: Sitting; Cuff Location : Left Arm; Cuff Size: Standard sitting 110/80, 83st anding 120/85, 01-21-2018 11:03-0400 BP Systolic 122 mm[Hg] No Mills RN [facility] Work Phone: Comment on above: Patient Position: Sitting; Cuff Location : Left Arm; Cuff Size: Standard sitting 110/80, 83st anding 120/85, 01-21-2018 11:03-0400 BSA (Body Surface Area) 2.03 m2 No Mills RN [facility] Work Phone: Comment on above: sitting 110/80, 83standing 120/85, 01-21-2018 11:03-0400 Height 167.64 cm No Mills RN [facility] Work Phone: Comment on above: sitting 110/80, 83standing 120/85, 01-21-2018 11:03-0400 Pulse (Heart Rate) 91 /min No Mills RN [facility] Work Phone: Comment on above: Pattern: Regular sitting 110/80, 83st anding 120/85, 01-21-2018 11:03-0400 Pulse Oximetry 97 % Lisa Ming [facility] Work Phone: Comment on above: Room air sitting 110/80, 83st anding 120/85, 01-21-2018 11:03-0400 Respiratory Rate 16 /min No Mills RN [facility] Work Phone: Comment on above: Pattern: Unlabored sitting 110/80, 83st anding 120/85, 75 01-21-2018 11:03-0400 SaO2% (BldA) [Mass fraction] 97 % No Mills RN [facility]; [facility] Work Phone: 06-17-2017 10:10-0500 BMI (Body Mass Index) 31.66 kg/m2 No Mills RN [facility] Work Phone: 06-17-2017 10:10-0500 Body Temperature 97.7 [degF] No Mills RN [facility] Work Phone: Comment on above: Method: Temporal 06-17-2017 10:10-0500 Body weight 88.96 kg No Mills RN [facility] Work Phone: 06-17-2017 10:10-0500 BP Diastolic 76 mm[Hg] No Mills RN [facility] Work Phone: Comment on above: Patient Position: Sitting; Cuff Location : Left Arm; Cuff Size: Standard 06-17-2017 10:10-0500 BP Systolic 124 mm[Hg] No Mills RN [facility] Work Phone: Comment on above: Patient Position: Sitting; Cuff Location : Left Arm; Cuff Size: Standard 06-17-2017 10:10-0500 BSA (Body Surface Area) 1.98 m2 No Mills RN [facility] Work Phone: 06-17-2017 10:10-0500 Height 167.64 cm No Mills RN [facility] Work Phone: 06-17-2017 10:10-0500 Pulse (Heart Rate) 78 /min No Mills RN [facility] Work Phone: Comment on above: Pattern: Regular 06-17-2017 10:10-0500 Respiratory Rate 16 /min No Mills RN [facility] Work Phone: Comment on above: Pattern: Unlabored 03-04-2017 07:12-0400 BMI (Body Mass Index) 31.66 kg/m2 Janelle Go RN [facility] Work Phone: 03-04-2017 07:12-0400 Body Temperature 97.8 [degF] Janelle Go RN [facility] Work Phone: Comment on above: Method: Temporal 03-04-2017 07:120400 Body weight 88.96 kg Janelle Go RN [facility] Work Phone: 03-04-2017 07:12-0400 BP Diastolic 70 mm[Hg] Janelle Go RN [facility] Work Phone: Comment on above: Patient Position: Sitting; Cuff Location : Left Arm; Cuff Size: Large 03-04-2017 07:12-0400 BP Systolic 122 mm[Hg] Janelle Go RN [facility] Work Phone: Comment on above: Patient Position: Sitting; Cuff Location : Left Arm; Cuff Size: Large 03-04-2017 07:120400 BSA (Body Surface Area) 1.98 m2 Janelle Go RN [facility] Work Phone: 03-04-2017 07:120400 Height 167.64 cm Janelle Go RN [facility] Work Phone: 03-04-2017 07:12-0400 Pulse (Heart Rate) 84 /min Janelle Go RN [facility] Work Phone: Comment on above: Pattern: Regular 03-04-2017 07:12-0400 Pulse Oximetry 95 % Lisa Ziegler [facility] Work Phone: Comment on above: Room air 03-04-2017 07:12-0400 Respiratory Rate 18 /min Janelle Go RN [facility] Work Phone: Comment on above: Pattern: Unlabored 03-04-2017 07:12-0400 SaO2% (BldA) [Mass fraction] 95 % Janelle Go RN [facility]; [facility] Work Phone: 02-26-2017 08:23-0400 BMI (Body Mass Index) 30.73 kg/m2 Katey Elizabeth MD [facility][1] 02-26-2017 08:23-0400 Body Temperature 97.8 [degF] Katey Elizabeth MD [facility][1] 02-26-2017 08:23-0400 Body Temperature 97.81 [degF] Katey Elizabeth MD [facility][1] 02-26-2017 08:23-0400 BP Diastolic 74 mm[Hg] Katey Elizabeth MD [facility][1] 02-26-2017 08:23-0400 BP Systolic 114 mm[Hg] Katey Elizabeth MD [facility][1] 02-26-2017 08:23-0400 Height 167.64 cm Katey Elizabeth MD [facility][1] 02-26-2017 08:23-0400 Pulse (Heart Rate) 91 /min Katey Elizabeth MD [facility][1] 02-26-2017 08:23-0400 Respiratory Rate 16 /min Katey Elizabeth MD [facility][1] 02-26-2017 08:23-0400 Weight 86.37 kg Katey Elizabeth MD [facility][1] 02-26-2017 08:23-0400 Weight 86.36 kg Katey Elizabeth MD [facility][1] 02-25-2017 10:27-0400 BMI (Body Mass Index) 30.4 kg/m2 Janelle Go RN [facility] Work Phone: 02-25-2017 10:27-0400 Body Temperature 98.1 [degF] Janelle Go RN [facility] Work Phone: Comment on above: Method: Temporal 02-25-2017 10:270400 Body weight 85.45 kg Janelle Go RN [facility] Work Phone: 02-25-2017 10:27-0400 BP Diastolic 78 mm[Hg] Janelle Go RN [facility] Work Phone: Comment on above: Patient Position: Sitting; Cuff Location : Left Arm; Cuff Size: Large 02-25-2017 10:27-0400 BP Systolic 110 mm[Hg] Janelle Go RN [facility] Work Phone: Comment on above: Patient Position: Sitting; Cuff Location : Left Arm; Cuff Size: Large 02-25-2017 10:27-0400 BSA (Body Surface Area) 1.95 m2 Janelle Go RN [facility] Work Phone: 02-25-2017 10:27-0400 Height 167.64 cm Janelle Go RN [facility] Work Phone: 02-25-2017 10:27-0400 Pulse (Heart Rate) 96 /min Janelle Go RN [facility] Work Phone: Comment on above: Pattern: Regular 02-25-2017 10:27-0400 Pulse Oximetry 97 % Lisa Ziegler [facility] Work Phone: Comment on above: Room air 02-25-2017 10:27-0400 Respiratory Rate 18 /min Janelle Go RN [facility] Work Phone: Comment on above: Pattern: Unlabored 02-25-2017 10:27-0400 SaO2% (BldA) [Mass fraction] 97 % Janelle Go RN [facility]; [facility] Work Phone: 12-24-2016 07:24-0400 BMI (Body Mass Index) 30.4 kg/m2 Janelle Go RN [facility] Work Phone: 12-24-2016 07:24-0400 Body weight 85.45 kg Janelle Go RN [facility] Work Phone: 12-24-2016 07:24-0400 BP Diastolic 80 mm[Hg] Janelle Go RN [facility] Work Phone: Comment on above: Patient Position: Sitting; Cuff Location : Left Arm; Cuff Size: Large 12-24-2016 07:24-0400 BP Systolic 122 mm[Hg] Janelle Go RN [facility] Work Phone: Comment on above: Patient Position: Sitting; Cuff Location : Left Arm; Cuff Size: Large 12-24-2016 07:24-0400 BSA (Body Surface Area) 1.95 m2 Janelle Go RN [facility] Work Phone: 12-24-2016 07:240400 Height 167.64 cm Janelle Go RN [facility] Work Phone: 12-24-2016 07:24-0400 Pulse (Heart Rate) 83 /min Janelle Go RN [facility] Work Phone: Comment on above: Pattern: Regular 12-24-2016 07:24-0400 Pulse Oximetry 99 % Lisa Ziegler [facility] Work Phone: Comment on above: Room air 12-24-2016 07:24-0400 Respiratory Rate 18 /min Janelle Go RN [facility] Work Phone: Comment on above: Pattern: Unlabored 12-24-2016 07:24-0400 SaO2% (BldA) [Mass fraction] 99 % Janelle Go RN [facility]; [facility] Work Phone: 12-04-2016 11:58-0400 BMI (Body Mass Index) 30.4 kg/m2 Janelle Go RN [facility] Work Phone: 12-04-2016 11:58-0400 Body weight 85.45 kg Janelle Go RN [facility] Work Phone: 12-04-2016 11:58-0400 BP Diastolic 78 mm[Hg] Janelle Go RN [facility] Work Phone: Comment on above: Patient Position: Sitting; Cuff Location : Left Arm; Cuff Size: Large 12-04-2016 11:58-0400 BP Systolic 120 mm[Hg] Janelle Go RN [facility] Work Phone: Comment on above: Patient Position: Sitting; Cuff Location : Left Arm; Cuff Size: Large 12-04-2016 11:58-0400 BSA (Body Surface Area) 1.95 m2 Janelle Go RN [facility] Work Phone: 12-04-2016 11:58-0400 Height 167.64 cm Janelle Go RN [facility] Work Phone: 12-04-2016 11:58-0400 Pulse (Heart Rate) 78 /min Janelle Go RN [facility] Work Phone: Comment on above: Pattern: Regular 12-04-2016 11:58-0400 Pulse Oximetry 97 % Lisa Coronelon [facility] Work Phone: Comment on above: Room air 12-04-2016 11:58-0400 Respiratory Rate 18 /min Janelle Go RN [facility] Work Phone: Comment on above: Pattern: Unlabored 12-04-2016 11:58-0400 SaO2% (BldA) [Mass fraction] 97 % Janelle Go RN [facility]; [facility] Work Phone: 12-03-2016 09:17-0400 BMI (Body Mass Index) 30.4 kg/m2 No Mills RN [facility] Work Phone: 12-03-2016 09:17-0400 Body Temperature 98.7 [degF] No Mills RN [facility] Work Phone: Comment on above: Method: Temporal 12-03-2016 09:17-0400 Body weight 85.45 kg No Mills RN [facility] Work Phone: 12-03-2016 09:17-0400 BP Diastolic 82 mm[Hg] No Mills RN [facility] Work Phone: Comment on above: Patient Position: Sitting; Cuff Location : Left Arm; Cuff Size: Standard 12-03-2016 09:17-0400 BP Systolic 140 mm[Hg] No Mills RN [facility] Work Phone: Comment on above: Patient Position: Sitting; Cuff Location : Left Arm; Cuff Size: Standard 12-03-2016 09:17-0400 BSA (Body Surface Area) 1.95 m2 No Mills RN [facility] Work Phone: 12-03-2016 09:17-0400 Height 167.64 cm oN Mills RN [facility] Work Phone: 12-03-2016 09:17-0400 Pulse (Heart Rate) 72 /min No Mills RN [facility] Work Phone: Comment on above: Pattern: Regular 12-03-2016 09:17-0400 Pulse Oximetry 98 % Lisa Ziegler [facility] Work Phone: Comment on above: Room air 12-03-2016 09:17-0400 Respiratory Rate 16 /min No Mills RN [facility] Work Phone: Comment on above: Pattern: Unlabored 12-03-2016 09:17-0400 SaO2% (BldA) [Mass fraction] 98 % No Mills RN [facility]; [facility] Work Phone: 08-28-2016 07:06-0400 BMI (Body Mass Index) 30.4 kg/m2 Janelle Go RN [facility] Work Phone: 08-28-2016 07:06-0400 Body weight 85.45 kg Janelle Go RN [facility] Work Phone: 08-28-2016 07:06-0400 BP Diastolic 62 mm[Hg] Janelle Go RN [facility] Work Phone: Comment on above: Patient Position: Sitting; Cuff Location : Left Arm; Cuff Size: Large 08-28-2016 07:06-0400 BP Systolic 118 mm[Hg] Janelle Go RN [facility] Work Phone: Comment on above: Patient Position: Sitting; Cuff Location : Left Arm; Cuff Size: Large 08-28-2016 07:06-0400 BSA (Body Surface Area) 1.95 m2 Janelle Go RN [facility] Work Phone: 08-28-2016 07:06-0400 Height 167.64 cm Janelle Go RN [facility] Work Phone: 08-28-2016 07:06-0400 Pulse (Heart Rate) 82 /min Janelle Go RN [facility] Work Phone: Comment on above: Pattern: Regular 08-28-2016 07:06-0400 Pulse Oximetry 97 % Lisa Ming [facility] Work Phone: Comment on above: Room air 08-28-2016 07:06-0400 Respiratory Rate 18 /min Janelle Go RN [facility] Work Phone: Comment on above: Pattern: Unlabored 08-28-2016 07:06-0400 SaO2% (BldA) [Mass fraction] 97 % Janelle Go RN [facility]; [facility] Work Phone: 05-05-2016 08:29-0500 BMI (Body Mass Index) 29.86 kg/m2 Yanique Radames [facility] Work Phone: 05-05-2016 08:29-0500 Body Temperature 97.3 [degF] Yanique Radames [facility] Work Phone: Comment on above: Method: Temporal 05-05-2016 08:29-0500 Body weight 83.92 kg Yanique Radames [facility] Work Phone: 05-05-2016 08:29-0500 BP Diastolic 80 mm[Hg] Yanique Radames [facility] Work Phone: Comment on above: Patient Position: Sitting; Cuff Location : Left Arm; Cuff Size: Standard 05-05-2016 08:29-0500 BP Systolic 120 mm[Hg] Yanique Radames [facility] Work Phone: Comment on above: Patient Position: Sitting; Cuff Location : Left Arm; Cuff Size: Standard 05-05-2016 08:29-0500 BSA (Body Surface Area) 1.94 m2 Yanique Crum [facility] Work Phone: 05-05-2016 08:29-0500 Height 167.64 cm Yanique Crum [facility] Work Phone: 05-05-2016 08:29-0500 Pulse (Heart Rate) 72 /min Yanique Crum [facility] Work Phone: Comment on above: Pattern: Regular 05-05-2016 08:29-0500 Pulse Oximetry 98 % Lisa Ziegler [facility] Work Phone: Comment on above: Room air 05-05-2016 08:29-0500 Respiratory Rate 16 /min Yanique Crum [facility] Work Phone: Comment on above: Pattern: Unlabored 05-05-2016 08:29-0500 SaO2% (BldA) [Mass fraction] 98 % Yanique Crum [facility]; [facility] Work Phone: 04-10-2016 10:12-0500 BMI (Body Mass Index) 29.94 kg/m2 No Mills RN [facility] Work Phone: 04-10-2016 10:12-0500 Body Temperature 97.5 [degF] No Mills RN [facility] Work Phone: Comment on above: Method: Temporal 04-10-2016 10:12-0500 Body weight 84.14 kg No Mills RN [facility] Work Phone: 04-10-2016 10:12-0500 BP Diastolic 76 mm[Hg] No Mills RN [facility] Work Phone: Comment on above: Patient Position: Sitting; Cuff Location : Left Arm; Cuff Size: Standard 04-10-2016 10:12-0500 BP Systolic 122 mm[Hg] No Mills RN [facility] Work Phone: Comment on above: Patient Position: Sitting; Cuff Location : Left Arm; Cuff Size: Standard 04-10-2016 10:12-0500 BSA (Body Surface Area) 1.94 m2 No Mills RN [facility] Work Phone: 04-10-2016 10:12-0500 Height 167.64 cm No Mills RN [facility] Work Phone: 04-10-2016 10:12-0500 Pulse (Heart Rate) 93 /min No Mills RN [facility] Work Phone: Comment on above: Pattern: Regular 04-10-2016 10:12-0500 Pulse Oximetry 99 % Lisa Ziegler [facility] Work Phone: Comment on above: Room air 04-10-2016 10:12-0500 Respiratory Rate 16 /min No Mills RN [facility] Work Phone: Comment on above: Pattern: Unlabored 04-10-2016 10:12-0500 SaO2% (BldA) [Mass fraction] 99 % No Mills RN [facility]; [facility] Work Phone: 04-07-2016 09:17-0500 BMI (Body Mass Index) 29.78 kg/m2 Isabel Slarb SECRETARY [facility] Work Phone: 04-07-2016 09:17-0500 Body Temperature 98.1 [degF] Isabel Slarb SECRETARY [facility] Work Phone: 04-07-2016 09:17-0500 Body weight 83.69 kg Isabel Slarb SECRETARY [facility] Work Phone: 04-07-2016 09:17-0500 BP Diastolic 80 mm[Hg] Isabel Slarb SECRETARY [facility] Work Phone: Comment on above: Patient Position: Sitting; Cuff Location : Left Arm; Cuff Size: Standard 04-07-2016 09:17-0500 BP Systolic 122 mm[Hg] Isabel Slarb SECRETARY [facility] Work Phone: Comment on above: Patient Position: Sitting; Cuff Location : Left Arm; Cuff Size: Standard 04-07-2016 09:17-0500 BSA (Body Surface Area) 1.93 m2 Isabel Slarb SECRETARY [facility] Work Phone: 04-07-2016 09:17-0500 Height 167.64 cm Isabel Slarb SECRETARY [facility] Work Phone: 04-07-2016 09:17-0500 Pulse (Heart Rate) 102 /min Isabel Slarb SECRETARY [facility] Work Phone: Comment on above: Pattern: Regular 04-07-2016 09:17-0500 Pulse Oximetry 94 % Lisa Coronelon [facility] Work Phone: Comment on above: Room air 04-07-2016 09:17-0500 Respiratory Rate 16 /min Isabel Slarb SECRETARY [facility] Work Phone: Comment on above: Pattern: Unlabored 04-07-2016 09:17-0500 SaO2% (BldA) [Mass fraction] 94 % Isabel Slarb SECRETARY [facility]; [facility] Work Phone: 03-02-2016 09:03-0400 BMI (Body Mass Index) 29.78 kg/m2 Isabel Slarb SECRETARY [facility] Work Phone: 03-02-2016 09:03-0400 Body Temperature 97.7 [degF] Isabel Slarb SECRETARY [facility] Work Phone: 03-02-2016 09:03-0400 Body weight 83.69 kg Isabel Slarb SECRETARY [facility] Work Phone: 03-02-2016 09:03-0400 BP Diastolic 84 mm[Hg] Isabel Slarb SECRETARY [facility] Work Phone: Comment on above: Patient Position: Sitting; Cuff Location : Left Arm; Cuff Size: Standard 03-02-2016 09:03-0400 BP Systolic 132 mm[Hg] Isabel Slarb SECRETARY [facility] Work Phone: Comment on above: Patient Position: Sitting; Cuff Location : Left Arm; Cuff Size: Standard 03-02-2016 09:03-0400 BSA (Body Surface Area) 1.93 m2 Isabel Slarb SECRETARY [facility] Work Phone: 03-02-2016 09:03-0400 Height 167.64 cm Isabel Slarb SECRETARY [facility] Work Phone: 03-02-2016 09:03-0400 Pulse (Heart Rate) 75 /min Isabel Slarb SECRETARY [facility] Work Phone: Comment on above: Pattern: Regular 03-02-2016 09:03-0400 Pulse Oximetry 99 % Lisa Ziegler [facility] Work Phone: Comment on above: Room air 03-02-2016 09:03-0400 Respiratory Rate 18 /min Isabel Slarb SECRETARY [facility] Work Phone: Comment on above: Pattern: Unlabored 03-02-2016 09:03-0400 SaO2% (BldA) [Mass fraction] 99 % Isabel Slarb SECRETARY [facility]; [facility] Work Phone: 02-14-2016 07:06-0400 BMI (Body Mass Index) 29.78 kg/m2 Janelle Go RN [facility] Work Phone: 02-14-2016 07:06-0400 Body weight 83.69 kg Janelle Go RN [facility] Work Phone: 02-14-2016 07:06-0400 BP Diastolic 82 mm[Hg] Janelle Go RN [facility] Work Phone: Comment on above: Patient Position: Sitting; Cuff Location : Left Arm; Cuff Size: Large 02-14-2016 07:06-0400 BP Systolic 122 mm[Hg] Janelle Go RN [facility] Work Phone: Comment on above: Patient Position: Sitting; Cuff Location : Left Arm; Cuff Size: Large 02-14-2016 07:06-0400 BSA (Body Surface Area) 1.93 m2 Janelle Go RN [facility] Work Phone: 02-14-2016 07:06-0400 Height 167.64 cm Janelle Go RN [facility] Work Phone: 02-14-2016 07:06-0400 Pulse (Heart Rate) 90 /min Janelle Go RN [facility] Work Phone: Comment on above: Pattern: Regular 02-14-2016 07:06-0400 Pulse Oximetry 99 % Lisa Ziegler [facility] Work Phone: Comment on above: Room air 02-14-2016 07:06-0400 Respiratory Rate 18 /min Janelle Go RN [facility] Work Phone: Comment on above: Pattern: Unlabored 02-14-2016 07:06-0400 SaO2% (BldA) [Mass fraction] 99 % Janelle Go RN [facility]; [facility] Work Phone: 08-15-2015 08:14-0400 BMI (Body Mass Index) 30.99 kg/m2 Janelle Go RN [facility] Work Phone: 08-15-2015 08:14-0400 Body weight 87.09 kg Janelle Go RN [facility] Work Phone: 08-15-2015 08:14-0400 BP Diastolic 78 mm[Hg] Janelle Go RN [facility] Work Phone: Comment on above: Patient Position: Sitting; Cuff Location : Left Arm; Cuff Size: Large 08-15-2015 08:14-0400 BP Systolic 128 mm[Hg] Janelle Go RN [facility] Work Phone: Comment on above: Patient Position: Sitting; Cuff Location : Left Arm; Cuff Size: Large 08-15-2015 08:14-0400 BSA (Body Surface Area) 1.97 m2 Janelle Go RN [facility] Work Phone: 08-15-2015 08:14-0400 Height 167.64 cm Janelle Go RN [facility] Work Phone: 08-15-2015 08:14-0400 Pulse (Heart Rate) 74 /min Janelle Go RN [facility] Work Phone: Comment on above: Pattern: Regular 08-15-2015 08:14-0400 Pulse Oximetry 98 % Lisa Ziegler [facility] Work Phone: Comment on above: Room air 08-15-2015 08:14-0400 Respiratory Rate 18 /min Janelle Go RN [facility] Work Phone: Comment on above: Pattern: Unlabored 08-15-2015 08:14-0400 SaO2% (BldA) [Mass fraction] 98 % Janelle Go RN [facility]; [facility] Work Phone: 08-08-2015 07:33-0400 BMI (Body Mass Index) 31.23 kg/m2 Janelle Go RN [facility] Work Phone: 08-08-2015 07:33-0400 Body Temperature 97.4 [degF] Janelle Go RN [facility] Work Phone: Comment on above: Method: Temporal 08-08-2015 07:33-0400 Body weight 87.77 kg Janelle Go RN [facility] Work Phone: 08-08-2015 07:33-0400 BP Diastolic 58 mm[Hg] Janelle Go RN [facility] Work Phone: Comment on above: Patient Position: Sitting; Cuff Location : Left Arm; Cuff Size: Standard 08-08-2015 07:33-0400 BP Systolic 100 mm[Hg] Janelle Go RN [facility] Work Phone: Comment on above: Patient Position: Sitting; Cuff Location : Left Arm; Cuff Size: Standard 08-08-2015 07:33-0400 BSA (Body Surface Area) 1.97 m2 Janelle Go RN [facility] Work Phone: 08-08-2015 07:33-0400 Height 167.64 cm Janelle Go RN [facility] Work Phone: 08-08-2015 07:33-0400 Pulse (Heart Rate) 85 /min Janelle Go RN [facility] Work Phone: Comment on above: Pattern: Regular 08-08-2015 07:33-0400 Pulse Oximetry 98 % Lisa Ziegler [facility] Work Phone: Comment on above: Room air 08-08-2015 07:33-0400 Respiratory Rate 18 /min Janelle Go RN [facility] Work Phone: Comment on above: Pattern: Unlabored 08-08-2015 07:33-0400 SaO2% (BldA) [Mass fraction] 98 % Janelle Go RN [facility]; [facility] Work Phone: 08-01-2015 07:43-0400 BMI (Body Mass Index) 31.23 kg/m2 Janelle Go RN [facility] Work Phone: 08-01-2015 07:43-0400 Body Temperature 100.5 [degF] Janelle Go RN [facility] Work Phone: Comment on above: Method: Oral 08-01-2015 07:43-0400 Body weight 87.77 kg Janelle Go RN [facility] Work Phone: 08-01-2015 07:43-0400 BP Diastolic 80 mm[Hg] Janelle Go RN [facility] Work Phone: Comment on above: Patient Position: Sitting; Cuff Location : Left Arm; Cuff Size: Large 08-01-2015 07:43-0400 BP Systolic 128 mm[Hg] Janelle Go RN [facility] Work Phone: Comment on above: Patient Position: Sitting; Cuff Location : Left Arm; Cuff Size: Large 08-01-2015 07:43-0400 BSA (Body Surface Area) 1.97 m2 Janelle Go RN [facility] Work Phone: 08-01-2015 07:43-0400 Height 167.64 cm Janelle Go RN [facility] Work Phone: 08-01-2015 07:43-0400 Pulse (Heart Rate) 87 /min Janelle Go RN [facility] Work Phone: Comment on above: Pattern: Regular 08-01-2015 07:43-0400 Pulse Oximetry 98 % Lisa Ziegler [facility] Work Phone: Comment on above: Room air 08-01-2015 07:43-0400 Respiratory Rate 18 /min Janelle Go RN [facility] Work Phone: Comment on above: Pattern: Unlabored 08-01-2015 07:43-0400 SaO2% (BldA) [Mass fraction] 98 % Janelle Go RN [facility]; [facility] Work Phone: 07-24-2015 09:01-0400 BMI (Body Mass Index) 31.23 kg/m2 Janelle Go RN [facility] Work Phone: 07-24-2015 09:01-0400 Body weight 87.77 kg Janelle Go RN [facility] Work Phone: 07-24-2015 09:01-0400 BP Diastolic 80 mm[Hg] Janelle Go RN [facility] Work Phone: Comment on above: Patient Position: Sitting; Cuff Location : Left Arm; Cuff Size: Large 07-24-2015 09:01-0400 BP Systolic 122 mm[Hg] Janelle Go RN [facility] Work Phone: Comment on above: Patient Position: Sitting; Cuff Location : Left Arm; Cuff Size: Large 07-24-2015 09:01-0400 BSA (Body Surface Area) 1.97 m2 Janelle Go RN [facility] Work Phone: 07-24-2015 09:01-0400 Height 167.64 cm Janelle Go RN [facility] Work Phone: 07-24-2015 09:01-0400 Pulse (Heart Rate) 86 /min Janelle Go RN [facility] Work Phone: Comment on above: Pattern: Regular 07-24-2015 09:01-0400 Pulse Oximetry 98 % Lisa Ziegler [facility] Work Phone: Comment on above: Room air 07-24-2015 09:01-0400 Respiratory Rate 18 /min Janelle Go RN [facility] Work Phone: Comment on above: Pattern: Unlabored 07-24-2015 09:01-0400 SaO2% (BldA) [Mass fraction] 98 % Janelle Go RN [facility]; [facility] Work Phone: 07-08-2015 09:19-0500 BMI (Body Mass Index) 30.85 kg/m2 Isabel Slarb SECRETARY [facility] Work Phone: 07-08-2015 09:19-0500 Body weight 86.69 kg Isabel Slarb SECRETARY [facility] Work Phone: 07-08-2015 09:19-0500 BP Diastolic 64 mm[Hg] Isabel Slarb SECRETARY [facility] Work Phone: Comment on above: Patient Position: Sitting; Cuff Location : Left Arm; Cuff Size: Standard 07-08-2015 09:19-0500 BP Systolic 108 mm[Hg] Isabel Slarb SECRETARY [facility] Work Phone: Comment on above: Patient Position: Sitting; Cuff Location : Left Arm; Cuff Size: Standard 07-08-2015 09:19-0500 BSA (Body Surface Area) 1.96 m2 Isabel Slarb SECRETARY [facility] Work Phone: 07-08-2015 09:19-0500 Height 167.64 cm Isabel Slarb SECRETARY [facility] Work Phone: 06-07-2015 12:04-0500 BMI (Body Mass Index) 30.85 kg/m2 Maricarmen Cordova LPN [facility] Work Phone: 06-07-2015 12:04-0500 Body Temperature 98.4 [degF] Maricarmen Cordova LPN [facility] Work Phone: Comment on above: Method: Oral 06-07-2015 12:04-0500 Body weight 86.69 kg Maricarmen Cordova LPN [facility] Work Phone: 06-07-2015 12:04-0500 BP Diastolic 80 mm[Hg] Maricarmen Cordova TARA [facility] Work Phone: Comment on above: Patient Position: Sitting; Cuff Location : Left Arm; Cuff Size: Standard 06-07-2015 12:04-0500 BP Systolic 128 mm[Hg] Maricarmen Cordova TARA [facility] Work Phone: Comment on above: Patient Position: Sitting; Cuff Location : Left Arm; Cuff Size: Standard 06-07-2015 12:04-0500 BSA (Body Surface Area) 1.96 m2 Maricarmen Cordova TARA [facility] Work Phone: 06-07-2015 12:04-0500 Height 167.64 cm Maricarmen Cordova LPN [facility] Work Phone: 06-07-2015 12:04-0500 Pulse (Heart Rate) 76 /min Maricarmen Cordova LPN [facility] Work Phone: Comment on above: Pattern: Regular 06-07-2015 12:04-0500 Pulse Oximetry 97 % Lisa Ming [facility] Work Phone: Comment on above: Room air 06-07-2015 12:04-0500 Respiratory Rate 15 /min Maricarmen Cordova LPN [facility] Work Phone: 06-07-2015 12:04-0500 SaO2% (BldA) [Mass fraction] 97 % Maricarmen Peñamargaret PACHECO [facility]; [facility] Work Phone: 05-14-2015 08:17-0500 BMI (Body Mass Index) 30.85 kg/m2 Isabel Slarb SECRETARY [facility] Work Phone: 05-14-2015 08:17-0500 Body Temperature 98.6 [degF] Isabel Slarb SECRETARY [facility] Work Phone: 05-14-2015 08:17-0500 Body weight 86.69 kg Isabel Slarb SECRETARY [facility] Work Phone: 05-14-2015 08:17-0500 BP Diastolic 76 mm[Hg] Isabel Slarb SECRETARY [facility] Work Phone: Comment on above: Patient Position: Sitting; Cuff Location : Left Arm; Cuff Size: Standard 05-14-2015 08:17-0500 BP Systolic 132 mm[Hg] Isabel Slarb SECRETARY [facility] Work Phone: Comment on above: Patient Position: Sitting; Cuff Location : Left Arm; Cuff Size: Standard 05-14-2015 08:17-0500 BSA (Body Surface Area) 1.96 m2 Isabel Slarb SECRETARY [facility] Work Phone: 05-14-2015 08:17-0500 Height 167.64 cm Isabel Slarb SECRETARY [facility] Work Phone: 05-14-2015 08:17-0500 Pulse (Heart Rate) 92 /min Isabel Patriciarb SECRETARY [facility] Work Phone: Comment on above: Pattern: Regular 05-14-2015 08:17-0500 Pulse Oximetry 97 % Lisa Ziegler [facility] Work Phone: Comment on above: Room air 05-14-2015 08:17-0500 Respiratory Rate 16 /min Isabel Slarb SECRETARY [facility] Work Phone: Comment on above: Pattern: Unlabored 05-14-2015 08:17-0500 SaO2% (BldA) [Mass fraction] 97 % Isabel Slarb SECRETARY [facility]; [facility] Work Phone: 04-23-2015 08:02-0500 BMI (Body Mass Index) 30.99 kg/m2 Maricarmen Cordova LPN [facility] Work Phone: 04-23-2015 08:02-0500 Body Temperature 98.6 [degF] Maricarmen Cordova LPN [facility] Work Phone: Comment on above: Method: Oral 04-23-2015 08:02-0500 Body weight 87.09 kg Maricarmen Cordova LPN [facility] Work Phone: 04-23-2015 08:02-0500 BP Diastolic 72 mm[Hg] Maricarmen Cordova TARA [facility] Work Phone: Comment on above: Patient Position: Sitting; Cuff Location : Left Arm; Cuff Size: Standard 04-23-2015 08:02-0500 BP Systolic 122 mm[Hg] Maricarmen Cordova TARA [facility] Work Phone: Comment on above: Patient Position: Sitting; Cuff Location : Left Arm; Cuff Size: Standard 04-23-2015 08:02-0500 BSA (Body Surface Area) 1.97 m2 Maricarmen Cordova TARA [facility] Work Phone: 04-23-2015 08:02-0500 Height 167.64 cm Maricarmen Cordova LPN [facility] Work Phone: 04-23-2015 08:02-0500 Pulse (Heart Rate) 82 /min Maricarmen Cordova LPN [facility] Work Phone: Comment on above: Pattern: Regular 04-23-2015 08:02-0500 Pulse Oximetry 98 % Lisa Ziegler [facility] Work Phone: Comment on above: Room air 04-23-2015 08:02-0500 Respiratory Rate 16 /min Maricarmen Cordova LPN [facility] Work Phone: 04-23-2015 08:02-0500 SaO2% (BldA) [Mass fraction] 98 % Maricarmen Peñamargaret PACHECO [facility]; [facility] Work Phone: 04-09-2015 12:58-0500 BMI (Body Mass Index) 30.89 kg/m2 No Mills RN [facility] Work Phone: 04-09-2015 12:58-0500 Body Temperature 97.6 [degF] No Mills RN [facility] Work Phone: Comment on above: Method: Temporal 04-09-2015 12:58-0500 Body weight 86.81 kg No Mills RN [facility] Work Phone: 04-09-2015 12:58-0500 BP Diastolic 70 mm[Hg] No Mills RN [facility] Work Phone: Comment on above: Patient Position: Sitting; Cuff Location : Left Arm; Cuff Size: Standard 04-09-2015 12:58-0500 BP Systolic 142 mm[Hg] No Mills RN [facility] Work Phone: Comment on above: Patient Position: Sitting; Cuff Location : Left Arm; Cuff Size: Standard 04-09-2015 12:58-0500 BSA (Body Surface Area) 1.96 m2 No Mills RN [facility] Work Phone: 04-09-2015 12:58-0500 Height 167.64 cm No Mills RN [facility] Work Phone: 04-09-2015 12:58-0500 Pulse (Heart Rate) 107 /min No Mills RN [facility] Work Phone: Comment on above: Pattern: Regular 04-09-2015 12:58-0500 Pulse Oximetry 97 % Lisa Ziegler [facility] Work Phone: Comment on above: Room air 04-09-2015 12:58-0500 Respiratory Rate 16 /min No Mills RN [facility] Work Phone: Comment on above: Pattern: Unlabored 04-09-2015 12:58-0500 SaO2% (BldA) [Mass fraction] 97 % No Mills RN [facility]; [facility] Work Phone: 04-05-2015 07:30-0500 BMI (Body Mass Index) 30.89 kg/m2 Janelle Go RN [facility] Work Phone: 04-05-2015 07:30-0500 Body weight 86.81 kg Janelle Go RN [facility] Work Phone: 04-05-2015 07:30-0500 BP Diastolic 82 mm[Hg] Janelle Go RN [facility] Work Phone: Comment on above: Patient Position: Sitting; Cuff Location : Left Arm; Cuff Size: Large 04-05-2015 07:30-0500 BP Systolic 138 mm[Hg] Janelle Go RN [facility] Work Phone: Comment on above: Patient Position: Sitting; Cuff Location : Left Arm; Cuff Size: Large 04-05-2015 07:30-0500 BSA (Body Surface Area) 1.96 m2 Janelle Go RN [facility] Work Phone: 04-05-2015 07:30-0500 Height 167.64 cm Janelle Go RN [facility] Work Phone: 04-05-2015 07:30-0500 Pulse (Heart Rate) 86 /min Janelle Go RN [facility] Work Phone: Comment on above: Pattern: Regular 04-05-2015 07:30-0500 Pulse Oximetry 98 % Lisa Ziegler [facility] Work Phone: Comment on above: Room air 04-05-2015 07:30-0500 Respiratory Rate 18 /min Janelle Go RN [facility] Work Phone: Comment on above: Pattern: Unlabored 04-05-2015 07:30-0500 SaO2% (BldA) [Mass fraction] 98 % Janelle Go RN [facility]; [facility] Work Phone: 02-21-2015 10:19-0400 BMI (Body Mass Index) 31.19 kg/m2 Berta Moon [facility] Work Phone: 02-21-2015 10:19-0400 Body Temperature 98.5 [degF] Berta Moon [facility] Work Phone: Comment on above: Method: Tympanic 02-21-2015 10:190400 Body weight 87.66 kg Berta Moon [facility] Work Phone: 02-21-2015 10:19-0400 BP Diastolic 76 mm[Hg] Berta Moon [facility] Work Phone: Comment on above: Patient Position: Sitting; Cuff Location : Left Arm; Cuff Size: Standard 02-21-2015 10:19-0400 BP Systolic 140 mm[Hg] Berta Moon [facility] Work Phone: Comment on above: Patient Position: Sitting; Cuff Location : Left Arm; Cuff Size: Standard 02-21-2015 10:0400 BSA (Body Surface Area) 1.97 m2 Berta Moon [facility] Work Phone: 02-21-2015 10:190400 Height 167.64 cm Berta Moon [facility] Work Phone: 02-21-2015 10:19-0400 Pulse (Heart Rate) 88 /min Berta Moon [facility] Work Phone: Comment on above: Pattern: Regular 02-21-2015 10:190400 Pulse Oximetry 98 % Lisa Ziegler [facility] Work Phone: Comment on above: Room air 02-21-2015 10:190400 Respiratory Rate 18 /min Berta Moon [facility] Work Phone: Comment on above: Pattern: Unlabored 02-21-2015 10:19-0400 SaO2% (BldA) [Mass fraction] 98 % [facility] Work Phone: 11-08-2014 12:09-0400 BMI (Body Mass Index) 29.9 kg/m2 Janelle Go RN [facility] Work Phone: 11-08-2014 12:09-0400 Body weight 84.03 kg Janelle Go RN [facility] Work Phone: 11-08-2014 12:09-0400 BP Diastolic 78 mm[Hg] Janelle Go RN [facility] Work Phone: Comment on above: Patient Position: Sitting; Cuff Location : Left Arm; Cuff Size: Standard 11-08-2014 12:09-0400 BP Systolic 110 mm[Hg] Janelle Go RN [facility] Work Phone: Comment on above: Patient Position: Sitting; Cuff Location : Left Arm; Cuff Size: Standard 11-08-2014 12:09-0400 BSA (Body Surface Area) 1.94 m2 Janelle Go RN [facility] Work Phone: 11-08-2014 12:09-0400 Height 167.64 cm Janelle Go RN [facility] Work Phone: 11-08-2014 12:09-0400 Pulse (Heart Rate) 92 /min Janelle Go RN [facility] Work Phone: Comment on above: Pattern: Regular 11-08-2014 12:09-0400 Pulse Oximetry 98 % Lisa Ziegler [facility] Work Phone: Comment on above: Room air 11-08-2014 12:09-0400 Respiratory Rate 20 /min Janelle Go RN [facility] Work Phone: Comment on above: Pattern: Unlabored 11-08-2014 12:09-0400 SaO2% (BldA) [Mass fraction] 98 % Janelle Go RN [facility]; [facility] Work Phone: 07-02-2014 09:32-0500 BMI (Body Mass Index) 29.94 kg/m2 Janelle Go RN [facility] Work Phone: 07-02-2014 09:32-0500 Body weight 84.14 kg Janelle Go RN [facility] Work Phone: 07-02-2014 09:32-0500 BP Diastolic 62 mm[Hg] Janelle Go RN [facility] Work Phone: Comment on above: Patient Position: Sitting; Cuff Location : Left Arm; Cuff Size: Large 07-02-2014 09:32-0500 BP Systolic 110 mm[Hg] Janelle Go RN [facility] Work Phone: Comment on above: Patient Position: Sitting; Cuff Location : Left Arm; Cuff Size: Large 07-02-2014 09:32-0500 BSA (Body Surface Area) 1.94 m2 Janelle Go RN [facility] Work Phone: 07-02-2014 09:32-0500 Height 167.64 cm Janelle Go RN [facility] Work Phone: 07-02-2014 09:32-0500 Pulse (Heart Rate) 80 /min Janelle Go RN [facility] Work Phone: Comment on above: Pattern: Regular 07-02-2014 09:32-0500 Pulse Oximetry 98 % Lisa Ziegler [facility] Work Phone: Comment on above: Room air 07-02-2014 09:32-0500 Respiratory Rate 18 /min Janelle Go RN [facility] Work Phone: Comment on above: Pattern: Unlabored 07-02-2014 09:32-0500 SaO2% (BldA) [Mass fraction] 98 % Janelle Go RN [facility]; [facility] Work Phone: 02-20-2014 08:13-0400 BMI (Body Mass Index) 30.11 kg/m2 Maricarmen Cordova LPN [facility] Work Phone: 02-20-2014 08:13-0400 Body Temperature 96.7 [degF] Maricarmen Cordova LPN [facility] Work Phone: Comment on above: Method: Oral 02-20-2014 08:13-0400 Body weight 84.62 kg Maricarmen Art PACHECO [facility] Work Phone: 02-20-2014 08:13-0400 BP Diastolic 72 mm[Hg] Maricarmen Cordova LPN [facility] Work Phone: Comment on above: Patient Position: Sitting; Cuff Location : Left Arm; Cuff Size: Standard 02-20-2014 08:13-0400 BP Systolic 120 mm[Hg] Maricarmen Cordova LPN [facility] Work Phone: Comment on above: Patient Position: Sitting; Cuff Location : Left Arm; Cuff Size: Standard 02-20-2014 08:13-0400 BSA (Body Surface Area) 1.94 m2 Maricarmen Art PACHECO [facility] Work Phone: 02-20-2014 08:13-0400 Height 167.64 cm Maricarmen Peñamargaret PACHECO [facility] Work Phone: 02-20-2014 08:13-0400 Pulse (Heart Rate) 96 /min Maricarmen Cordova TARA [facility] Work Phone: Comment on above: Pattern: Regular 02-20-2014 08:13-0400 Pulse Oximetry 98 % Lisa Ming [facility] Work Phone: Comment on above: Room air 02-20-2014 08:13-0400 Respiratory Rate 18 /min Maricarmen Cordova TARA [facility] Work Phone: 02-20-2014 08:13-0400 SaO2% (BldA) [Mass fraction] 98 % Maricarmen Art PACHECO [facility]; [facility] Work Phone: 01-05-2014 08:42-0400 BMI (Body Mass Index) 29.95 kg/m2 Janelle Go RN [facility] Work Phone: 01-05-2014 08:42-0400 Body weight 84.17 kg Janelle Go RN [facility] Work Phone: 01-05-2014 08:42-0400 BP Diastolic 78 mm[Hg] Janelle Go RN [facility] Work Phone: Comment on above: Patient Position: Sitting; Cuff Location : Left Arm; Cuff Size: Standard 01-05-2014 08:42-0400 BP Systolic 120 mm[Hg] Janelle Go RN [facility] Work Phone: Comment on above: Patient Position: Sitting; Cuff Location : Left Arm; Cuff Size: Standard 01-05-2014 08:42-0400 BSA (Body Surface Area) 1.94 m2 Janelle Go RN [facility] Work Phone: 01-05-2014 08:42-0400 Height 167.64 cm Janelle Go RN [facility] Work Phone: 01-05-2014 08:42-0400 Pulse (Heart Rate) 82 /min Janelle Go RN [facility] Work Phone: Comment on above: Pattern: Regular 01-05-2014 08:42-0400 Pulse Oximetry 98 % Lisa Ziegler [facility] Work Phone: Comment on above: Room air 01-05-2014 08:42-0400 Respiratory Rate 18 /min Janelle Go RN [facility] Work Phone: Comment on above: Pattern: Unlabored 01-05-2014 08:42-0400 SaO2% (BldA) [Mass fraction] 98 % Janelle Go RN [facility]; [facility] Work Phone: 07-10-2013 08:28-0400 BMI (Body Mass Index) 32.01 kg/m2 Janelle Go RN [facility] Work Phone: 07-10-2013 08:28-0400 Body weight 89.95 kg Janelle Go RN [facility] Work Phone: 07-10-2013 08:28-0400 BP Diastolic 84 mm[Hg] Janelle Go RN [facility] Work Phone: Comment on above: Patient Position: Sitting; Cuff Location : Left Arm; Cuff Size: Large 07-10-2013 08:28-0400 BP Systolic 140 mm[Hg] Janelle Go RN [facility] Work Phone: Comment on above: Patient Position: Sitting; Cuff Location : Left Arm; Cuff Size: Large 07-10-2013 08:28-0400 BSA (Body Surface Area) 1.99 m2 Janelle Go RN [facility] Work Phone: 07-10-2013 08:28-0400 Height 167.64 cm Janelle Go RN [facility] Work Phone: 07-10-2013 08:28-0400 Pulse (Heart Rate) 88 /min Janelle Go RN [facility] Work Phone: Comment on above: Pattern: Regular 07-10-2013 08:28-0400 Pulse Oximetry 98 % Lisa Ziegler [facility] Work Phone: Comment on above: Room air 07-10-2013 08:28-0400 Respiratory Rate 18 /min Janelle Go RN [facility] Work Phone: Comment on above: Pattern: Unlabored 07-10-2013 08:28-0400 SaO2% (BldA) [Mass fraction] 98 % Janelle Go RN [facility]; [facility] Work Phone: 06-26-2013 09:12-0500 BMI (Body Mass Index) 32.01 kg/m2 Janelle Go RN [facility] Work Phone: 06-26-2013 09:12-0500 Body Temperature 97.6 [degF] Janelle Go RN [facility] Work Phone: Comment on above: Method: Oral 06-26-2013 09:12-0500 Body weight 89.95 kg Janelle Go RN [facility] Work Phone: 06-26-2013 09:12-0500 BP Diastolic 62 mm[Hg] Janelle Go RN [facility] Work Phone: Comment on above: Patient Position: Sitting; Cuff Location : Left Arm; Cuff Size: Large 06-26-2013 09:12-0500 BP Systolic 120 mm[Hg] Janelle Go RN [facility] Work Phone: Comment on above: Patient Position: Sitting; Cuff Location : Left Arm; Cuff Size: Large 06-26-2013 09:12-0500 BSA (Body Surface Area) 1.99 m2 Janelle Go RN [facility] Work Phone: 06-26-2013 09:12-0500 Height 167.64 cm Janelle Go RN [facility] Work Phone: 06-26-2013 09:12-0500 Pulse (Heart Rate) 71 /min Janelle Go RN [facility] Work Phone: Comment on above: Pattern: Regular 06-26-2013 09:12-0500 Pulse Oximetry 98 % Lisa Ziegler [facility] Work Phone: Comment on above: Room air 06-26-2013 09:12-0500 Respiratory Rate 18 /min Janelle Go RN [facility] Work Phone: Comment on above: Pattern: Unlabored 06-26-2013 09:12-0500 SaO2% (BldA) [Mass fraction] 98 % Janelle Go RN [facility]; [facility] Work Phone: 06-15-2013 08:01-0500 BMI (Body Mass Index) 32.01 kg/m2 Janelle Go RN [facility] Work Phone: 06-15-2013 08:01-0500 Body weight 89.95 kg Janelle Go RN [facility] Work Phone: 06-15-2013 08:01-0500 BP Diastolic 70 mm[Hg] Janelle Go RN [facility] Work Phone: Comment on above: Patient Position: Sitting; Cuff Location : Left Arm; Cuff Size: Large 06-15-2013 08:01-0500 BP Systolic 110 mm[Hg] Janelle Go RN [facility] Work Phone: Comment on above: Patient Position: Sitting; Cuff Location : Left Arm; Cuff Size: Large 06-15-2013 08:01-0500 BSA (Body Surface Area) 1.99 m2 Janelle Go RN [facility] Work Phone: 06-15-2013 08:01-0500 Height 167.64 cm Janelle Go RN [facility] Work Phone: 06-15-2013 08:01-0500 Pulse (Heart Rate) 73 /min Janelle Go RN [facility] Work Phone: Comment on above: Pattern: Regular 06-15-2013 08:01-0500 Pulse Oximetry 97 % Lisa Ziegler [facility] Work Phone: Comment on above: Room air 06-15-2013 08:01-0500 Respiratory Rate 18 /min Janelle Go RN [facility] Work Phone: Comment on above: Pattern: Unlabored 06-15-2013 08:01-0500 SaO2% (BldA) [Mass fraction] 97 % Janelle Go RN [facility]; [facility] Work Phone: 06-05-2013 11:09-0500 BMI (Body Mass Index) 32.01 kg/m2 Janelle Go RN [facility] Work Phone: 06-05-2013 11:09-0500 Body Temperature 98.4 [degF] Janelle Go RN [facility] Work Phone: Comment on above: Method: Oral 06-05-2013 11:09-0500 Body weight 89.95 kg Janelle Go RN [facility] Work Phone: 06-05-2013 11:09-0500 BP Diastolic 80 mm[Hg] Janelle Go RN [facility] Work Phone: Comment on above: Patient Position: Sitting; Cuff Location : Left Arm; Cuff Size: Large 06-05-2013 11:09-0500 BP Systolic 124 mm[Hg] Janelle Go RN [facility] Work Phone: Comment on above: Patient Position: Sitting; Cuff Location : Left Arm; Cuff Size: Large 06-05-2013 11:09-0500 BSA (Body Surface Area) 1.99 m2 Janelle Go RN [facility] Work Phone: 06-05-2013 11:09-0500 Height 167.64 cm Janelle Go RN [facility] Work Phone: 06-05-2013 11:09-0500 Pulse (Heart Rate) 79 /min Janelle Go RN [facility] Work Phone: Comment on above: Pattern: Regular 06-05-2013 11:09-0500 Pulse Oximetry 98 % Lisa Ziegler [facility] Work Phone: Comment on above: Room air 06-05-2013 11:09-0500 Respiratory Rate 18 /min Janelle Go RN [facility] Work Phone: Comment on above: Pattern: Unlabored 06-05-2013 11:09-0500 SaO2% (BldA) [Mass fraction] 98 % Janelle Go RN [facility]; [facility] Work Phone: 05-02-2013 08:12-0500 BMI (Body Mass Index) 32.01 kg/m2 Maricarmen Cordova LPN [facility] Work Phone: 05-02-2013 08:12-0500 Body Temperature 98.8 [degF] Maricarmen Cordova LPN [facility] Work Phone: Comment on above: Method: Oral 05-02-2013 08:12-0500 Body weight 89.95 kg Maricarmen Cordova LPN [facility] Work Phone: 05-02-2013 08:12-0500 BP Diastolic 78 mm[Hg] Maricarmen Cordova LPN [facility] Work Phone: Comment on above: Patient Position: Sitting; Cuff Location : Left Arm; Cuff Size: Standard 05-02-2013 08:12-0500 BP Systolic 122 mm[Hg] Maricarmen Cordova TARA [facility] Work Phone: Comment on above: Patient Position: Sitting; Cuff Location : Left Arm; Cuff Size: Standard 05-02-2013 08:12-0500 BSA (Body Surface Area) 1.99 m2 Maricarmen Cordova TARA [facility] Work Phone: 05-02-2013 08:12-0500 Height 167.64 cm Maricarmen Cordova LPN [facility] Work Phone: 05-02-2013 08:12-0500 Pulse (Heart Rate) 88 /min Maricarmen Cordova LPN [facility] Work Phone: Comment on above: Pattern: Regular 05-02-2013 08:12-0500 Pulse Oximetry 97 % Lisa Ziegler [facility] Work Phone: Comment on above: Room air 05-02-2013 08:12-0500 Respiratory Rate 17 /min Maricarmen Cordova LPN [facility] Work Phone: 05-02-2013 08:12-0500 SaO2% (BldA) [Mass fraction] 97 % Maricarmen Cordova LPN [facility]; [facility] Work Phone: 04-28-2013 11:34-0500 BMI (Body Mass Index) 32.01 kg/m2 Ruby Do [facility] Work Phone: 04-28-2013 11:34-0500 Body weight 89.95 kg Ruby Do [facility] Work Phone: 04-28-2013 11:34-0500 BP Diastolic 70 mm[Hg] [facility]: Comment on above: Patient Position: Sitting; Cuff Location : Left Arm; Cuff Size: Standard 04-28-2013 11:34-0500 BP Systolic 120 mm[Hg] Ruby Do [facility] Work Phone: Comment on above: Patient Position: Sitting; Cuff Location : Left Arm; Cuff Size: Standard 04-28-2013 11:34-0500 BSA (Body Surface Area) 1.99 m2 [facility] Work Phone: 04-28-2013 11:34-0500 Height 167.64 cm Ruby Do [facility] Work Phone: 04-28-2013 11:34-0500 Pulse (Heart Rate) 85 /min Rubyluna Do [facility] Work Phone: Comment on above: Pattern: Regular 04-28-2013 11:34-0500 Pulse Oximetry 98 % Lisa Ming [facility] Work Phone: Comment on above: Room air 04-28-2013 11:34-0500 Respiratory Rate 16 /min [facility] Work [facility]: Comment on above: Pattern: Unlabored 04-28-2013 11:34-0500 SaO2% (BldA) [Mass fraction] 98 % [facility] Work Phone: 02-16-2013 14:17-0400 BMI (Body Mass Index) 32.01 kg/m2 Janelle Go RN [facility] Work Phone: 02-16-2013 14:17-0400 Body Temperature 98.3 [degF] Janelle Go RN [facility] Work Phone: Comment on above: Method: Oral 02-16-2013 14:17-0400 Body weight 89.95 kg Janelle Go RN [facility] Work Phone: 02-16-2013 14:17-0400 BP Diastolic 80 mm[Hg] Janelle Go RN [facility] Work Phone: Comment on above: Patient Position: Sitting; Cuff Location : Left Arm; Cuff Size: Large 02-16-2013 14:17-0400 BP Systolic 120 mm[Hg] Janelle Go RN [facility] Work Phone: Comment on above: Patient Position: Sitting; Cuff Location : Left Arm; Cuff Size: Large 02-16-2013 14:17-0400 BSA (Body Surface Area) 1.99 m2 Janelle Go RN [facility] Work Phone: 02-16-2013 14:17-0400 Height 167.64 cm Janelle Go RN [facility] Work Phone: 02-16-2013 14:17-0400 Pulse (Heart Rate) 89 /min Janelle Go RN [facility] Work Phone: Comment on above: Pattern: Regular 02-16-2013 14:17-0400 Pulse Oximetry 98 % Lisa Ziegler [facility] Work Phone: Comment on above: Room air 02-16-2013 14:17-0400 Respiratory Rate 20 /min Janelle Go RN [facility] Work Phone: Comment on above: Pattern: Unlabored 02-16-2013 14:17-0400 SaO2% (BldA) [Mass fraction] 98 % Janelle Go RN [facility]; [facility] Work Phone: 01-30-2013 08:35-0400 BMI (Body Mass Index) 31.8 kg/m2 Maricarmen Cordova LPN [facility] Work Phone: 01-30-2013 08:35-0400 Body Temperature 98.2 [degF] Maricarmen Cordova LPN [facility] Work Phone: Comment on above: Method: Oral 01-30-2013 08:35-0400 Body weight 89.36 kg Maricarmen Cordova LPN [facility] Work Phone: 01-30-2013 08:35-0400 BP Diastolic 82 mm[Hg] Maricarmen Cordova LPN [facility] Work Phone: Comment on above: Patient Position: Sitting; Cuff Location : Left Arm; Cuff Size: Standard 01-30-2013 08:35-0400 BP Systolic 136 mm[Hg] Maricarmen Cordova LPN [facility] Work Phone: Comment on above: Patient Position: Sitting; Cuff Location : Left Arm; Cuff Size: Standard 01-30-2013 08:35-0400 BSA (Body Surface Area) 1.99 m2 Maricarmen Cordova LPN [facility] Work Phone: 01-30-2013 08:35-0400 Height 167.64 cm Maricarmen Cordova LPN [facility] Work Phone: 01-30-2013 08:35-0400 Pulse (Heart Rate) 90 /min Maricarmen Cordova LPN [facility] Work Phone: Comment on above: Pattern: Regular 01-30-2013 08:35-0400 Respiratory Rate 20 /min Maricarmen Cordova LPN [facility] Work Phone: 12-26-2012 08:07-0400 BMI (Body Mass Index) 31.8 kg/m2 Maricarmen Cordova LPN [facility] Work Phone: 12-26-2012 08:07-0400 Body Temperature 98.6 [degF] Maricarmen Cordova LPN [facility] Work Phone: Comment on above: Method: Oral 12-26-2012 08:07-0400 Body weight 89.36 kg Maricarmen Cordova LPN [facility] Work Phone: 12-26-2012 08:07-0400 BP Diastolic 80 mm[Hg] Maricarmen Cordova TARA [facility] Work Phone: Comment on above: Patient Position: Sitting; Cuff Location : Left Arm; Cuff Size: Standard 12-26-2012 08:07-0400 BP Systolic 138 mm[Hg] Maricarmen Cordova TARA [facility] Work Phone: Comment on above: Patient Position: Sitting; Cuff Location : Left Arm; Cuff Size: Standard 12-26-2012 08:07-0400 BSA (Body Surface Area) 1.99 m2 Maricarmen Cordova TARA [facility] Work Phone: 12-26-2012 08:07-0400 Height 167.64 cm Maricarmen Art PACHCEO [facility] Work Phone: 12-26-2012 08:07-0400 Pulse (Heart Rate) 90 /min Maricarmen Cordova TARA [facility] Work Phone: Comment on above: Pattern: Regular 12-26-2012 08:07-0400 Pulse Oximetry 98 % Lisa Ming [facility] Work Phone: Comment on above: Room air 12-26-2012 08:07-0400 Respiratory Rate 20 /min Maricarmen Cordova TARA [facility] Work Phone: 12-26-2012 08:07-0400 SaO2% (BldA) [Mass fraction] 98 % Maricarmen Art PACHECO [facility]; [facility] Work Phone: 10-06-2012 07:51-0400 BMI (Body Mass Index) 31.8 kg/m2 No Mills RN [facility] Work Phone: 10-06-2012 07:51-0400 Body Temperature 98.8 [degF] No Mills RN [facility] Work Phone: Comment on above: Method: Temporal 10-06-2012 07:51-0400 Body weight 89.36 kg No Mills RN [facility] Work Phone: 10-06-2012 07:51-0400 BP Diastolic 76 mm[Hg] No Mills RN [facility] Work Phone: Comment on above: Patient Position: Sitting; Cuff Location : Left Arm; Cuff Size: Standard 10-06-2012 07:51-0400 BP Systolic 128 mm[Hg] No Mills RN [facility] Work Phone: Comment on above: Patient Position: Sitting; Cuff Location : Left Arm; Cuff Size: Standard 10-06-2012 07:51-0400 BSA (Body Surface Area) 1.99 m2 No Mills RN [facility] Work Phone: 10-06-2012 07:51-0400 Height 167.64 cm No Mills RN [facility] Work Phone: 10-06-2012 07:51-0400 Pulse (Heart Rate) 82 /min No Mills RN [facility] Work Phone: Comment on above: Pattern: Regular 10-06-2012 07:51-0400 Pulse Oximetry 98 % Lisa Ziegler [facility] Work Phone: Comment on above: Room air 10-06-2012 07:51-0400 Respiratory Rate 16 /min No Mills RN [facility] Work Phone: Comment on above: Pattern: Unlabored 10-06-2012 07:51-0400 SaO2% (BldA) [Mass fraction] 98 % No Mills RN [facility]; [facility] Work Phone: 05-31-2012 12:11-0500 BMI (Body Mass Index) 33.02 kg/m2 No Mills RN [facility] Work Phone: 05-31-2012 12:11-0500 Body Temperature 98.4 [degF] No Mills RN [facility] Work Phone: Comment on above: Method: Oral 05-31-2012 12:11-0500 Body weight 92.79 kg No Mills RN [facility] Work Phone: 05-31-2012 12:11-0500 BP Diastolic 74 mm[Hg] No Mills RN [facility] Work Phone: Comment on above: Patient Position: Sitting; Cuff Location : Left Arm; Cuff Size: Standard 05-31-2012 12:11-0500 BP Systolic 118 mm[Hg] No Mills RN [facility] Work Phone: Comment on above: Patient Position: Sitting; Cuff Location : Left Arm; Cuff Size: Standard 05-31-2012 12:11-0500 BSA (Body Surface Area) 2.02 m2 No Mills RN [facility] Work Phone: 05-31-2012 12:11-0500 Height 167.64 cm No Mills RN [facility] Work Phone: 05-31-2012 12:11-0500 Pulse (Heart Rate) 100 /min No Mills RN [facility] Work Phone: Comment on above: Pattern: Regular 05-31-2012 12:11-0500 Pulse Oximetry 98 % Lisa Ziegler [facility] Work Phone: Comment on above: Room air 05-31-2012 12:11-0500 Respiratory Rate 62 /min No Mills RN [facility] Work Phone: Comment on above: Pattern: Unlabored 05-31-2012 12:11-0500 SaO2% (BldA) [Mass fraction] 98 % No Mills RN [facility]; [facility] Work Phone: 05-10-2012 08:10-0500 BMI (Body Mass Index) 33.02 kg/m2 Janelle Go RN [facility] Work Phone: 05-10-2012 08:10-0500 Body Temperature 98.1 [degF] Janelle Go RN [facility] Work Phone: Comment on above: Method: Oral 05-10-2012 08:10-0500 Body weight 92.79 kg Janelle Go RN [facility] Work Phone: 05-10-2012 08:10-0500 BP Diastolic 62 mm[Hg] Janelle Go RN [facility] Work Phone: Comment on above: Patient Position: Sitting; Cuff Location : Left Arm; Cuff Size: Large 05-10-2012 08:10-0500 BP Systolic 110 mm[Hg] Janelle Go RN [facility] Work Phone: Comment on above: Patient Position: Sitting; Cuff Location : Left Arm; Cuff Size: Large 05-10-2012 08:10-0500 BSA (Body Surface Area) 2.02 m2 Janelle Go RN [facility] Work Phone: 05-10-2012 08:10-0500 Height 167.64 cm Janelle Go RN [facility] Work Phone: 05-10-2012 08:10-0500 Pulse (Heart Rate) 60 /min Janelle Go RN [facility] Work Phone: Comment on above: Pattern: Regular 05-10-2012 08:10-0500 Respiratory Rate 18 /min Janelle Go RN [facility] Work Phone: Comment on above: Pattern: Unlabored 02-09-2012 11:07-0400 BMI (Body Mass Index) 32.77 kg/m2 Maricarmen Art PACHECO [facility] Work Phone: 02-09-2012 11:07-0400 Body Temperature 98.6 [degF] Maricarmen Cordova TARA [facility] Work Phone: Comment on above: Method: Oral 02-09-2012 11:07-0400 Body weight 92.11 kg Maricarmen Art TARA [facility] Work Phone: 02-09-2012 11:07-0400 BP Diastolic 78 mm[Hg] Maricarmen Cordova TARA [facility] Work Phone: Comment on above: Patient Position: Sitting; Cuff Location : Left Arm; Cuff Size: Standard 02-09-2012 11:07-0400 BP Systolic 138 mm[Hg] Maricarmen Cordova TARA [facility] Work Phone: Comment on above: Patient Position: Sitting; Cuff Location : Left Arm; Cuff Size: Standard 02-09-2012 11:07-0400 BSA (Body Surface Area) 2.01 m2 Maricarmen Cordova TARA [facility] Work Phone: 02-09-2012 11:07-0400 Height 167.64 cm Maricarmen Cordova TARA [facility] Work Phone: 02-09-2012 11:07-0400 Pulse (Heart Rate) 80 /min Maricarmen Cordova TARA [facility] Work Phone: Comment on above: Pattern: Regular 02-09-2012 11:07-0400 Pulse Oximetry 98 % Lisa Ziegler [facility] Work Phone: Comment on above: Room air 02-09-2012 11:07-0400 Respiratory Rate 20 /min Maricarmen Cordova TARA [facility] Work Phone: Comment on above: Pattern: Unlabored 02-09-2012 11:07-0400 SaO2% (BldA) [Mass fraction] 98 % Maricarmen Peñamargaret PACHECO [facility]; [facility] Work Phone: 02-01-2012 08:05-0400 BMI (Body Mass Index) 32.77 kg/m2 Janelle Go RN [facility] Work Phone: 02-01-2012 08:05-0400 Body Temperature 97.9 [degF] Janelle Go RN [facility] Work Phone: Comment on above: Method: Oral 02-01-2012 08:05-0400 Body weight 92.11 kg Janelle Go RN [facility] Work Phone: 02-01-2012 08:05-0400 BP Diastolic 70 mm[Hg] Janelle Go RN [facility] Work Phone: Comment on above: Patient Position: Sitting; Cuff Location : Left Arm; Cuff Size: Large 02-01-2012 08:05-0400 BP Systolic 122 mm[Hg] Janelle Go RN [facility] Work Phone: Comment on above: Patient Position: Sitting; Cuff Location : Left Arm; Cuff Size: Large 02-01-2012 08:05-0400 BSA (Body Surface Area) 2.01 m2 Janelle Go RN [facility] Work Phone: 02-01-2012 08:05-0400 Height 167.64 cm Janelle Go RN [facility] Work Phone: 02-01-2012 08:05-0400 Pulse (Heart Rate) 72 /min Janelle Go RN [facility] Work Phone: Comment on above: Pattern: Regular 02-01-2012 08:05-0400 Respiratory Rate 20 /min Janelle Go RN [facility] Work Phone: Comment on above: Pattern: Unlabored 10-12-2011 08:20-0400 BMI (Body Mass Index) 31.89 kg/m2 Janelle Go RN [facility] Work Phone: 10-12-2011 08:20-0400 Body Temperature 97 [degF] Janelle Go RN [facility] Work Phone: Comment on above: Method: Oral 10-12-2011 08:20-0400 Body weight 89.61 kg Janelle Go RN [facility] Work Phone: 10-12-2011 08:20-0400 BP Diastolic 68 mm[Hg] Janelle Go RN [facility] Work Phone: Comment on above: Patient Position: Sitting; Cuff Location : Left Arm; Cuff Size: Large 10-12-2011 08:20-0400 BP Systolic 118 mm[Hg] Janelle Go RN [facility] Work Phone: Comment on above: Patient Position: Sitting; Cuff Location : Left Arm; Cuff Size: Large 10-12-2011 08:20-0400 BSA (Body Surface Area) 1.99 m2 Janelle Go RN [facility] Work Phone: 10-12-2011 08:20-0400 Height 167.64 cm Janelle Go RN [facility] Work Phone: 10-12-2011 08:20-0400 Pulse (Heart Rate) 64 /min Janelle Go RN [facility] Work Phone: Comment on above: Pattern: Regular 10-12-2011 08:20-0400 Respiratory Rate 20 /min Janelle Go RN [facility] Work Phone: Comment on above: Pattern: Unlabored 09-09-2011 16:05-0400 BMI (Body Mass Index) 31.73 kg/m2 Janelle Go RN [facility] Work Phone: 09-09-2011 16:05-0400 Body Temperature 98.8 [degF] Janelle Go RN [facility] Work Phone: Comment on above: Method: Oral 09-09-2011 16:05-0400 Body weight 89.16 kg Janelle Go RN [facility] Work Phone: 09-09-2011 16:05-0400 BP Diastolic 78 mm[Hg] Janelle Go RN [facility] Work Phone: Comment on above: Patient Position: Sitting; Cuff Location : Left Arm; Cuff Size: Large 09-09-2011 16:05-0400 BP Systolic 124 mm[Hg] Janelle Go RN [facility] Work Phone: Comment on above: Patient Position: Sitting; Cuff Location : Left Arm; Cuff Size: Large 09-09-2011 16:05-0400 BSA (Body Surface Area) 1.99 m2 Janelle Go RN [facility] Work Phone: 09-09-2011 16:05-0400 Height 167.64 cm Janelle Go RN [facility] Work Phone: 09-09-2011 16:05-0400 Pulse (Heart Rate) 80 /min Janelle Go RN [facility] Work Phone: Comment on above: Pattern: Regular 09-09-2011 16:05-0400 Respiratory Rate 20 /min Janelle Go RN [facility] Work Phone: Comment on above: Pattern: Unlabored 08-26-2011 08:57-0400 BMI (Body Mass Index) 32.28 kg/m2 Maricarmen Cordova LPN [facility] Work Phone: 08-26-2011 08:57-0400 Body Temperature 98.6 [degF] Maricarmen Cordova LPN [facility] Work Phone: Comment on above: Method: Oral 08-26-2011 08:57-0400 Body weight 90.72 kg Maricarmen Cordova LPN [facility] Work Phone: 08-26-2011 08:57-0400 BP Diastolic 80 mm[Hg] Maricarmen Cordova LPN [facility] Work Phone: Comment on above: Patient Position: Sitting; Cuff Location : Left Arm; Cuff Size: Standard 08-26-2011 08:57-0400 BP Systolic 128 mm[Hg] Maricarmen Cordova LPN [facility] Work Phone: Comment on above: Patient Position: Sitting; Cuff Location : Left Arm; Cuff Size: Standard 08-26-2011 08:57-0400 BSA (Body Surface Area) 2 m2 Maricarmen Cordova LPN [facility] Work Phone: 08-26-2011 08:57-0400 Height 167.64 cm Maricarmen Cordova LPN [facility] Work Phone: 08-26-2011 08:57-0400 Pulse (Heart Rate) 96 /min Maricarmen Cordova LPN [facility] Work Phone: Comment on above: Pattern: Regular 08-26-2011 08:57-0400 Pulse Oximetry 99 % Lisa Ziegler [facility] Work Phone: Comment on above: Room air 08-26-2011 08:57-0400 Respiratory Rate 18 /min Maricarmen Cordova LPN [facility] Work Phone: Comment on above: Pattern: Unlabored 08-26-2011 08:57-0400 SaO2% (BldA) [Mass fraction] 99 % Maricarmen Cordova LPN [facility]; [facility] Work Phone: 04-08-2011 08:04-0500 BMI (Body Mass Index) 32.28 kg/m2 Janelle Go RN [facility] Work Phone: 04-08-2011 08:04-0500 Body Temperature 97.2 [degF] Janelle Go RN [facility] Work Phone: 04-08-2011 08:04-0500 Body weight 90.72 kg Janelle Go RN [facility] Work Phone: 04-08-2011 08:04-0500 BP Diastolic 82 mm[Hg] Janelle Go RN [facility] Work Phone: Comment on above: Patient Position: Sitting; Cuff Location : Left Arm; Cuff Size: Large 04-08-2011 08:04-0500 BP Systolic 124 mm[Hg] Janelle Go RN [facility] Work Phone: Comment on above: Patient Position: Sitting; Cuff Location : Left Arm; Cuff Size: Large 04-08-2011 08:04-0500 BSA (Body Surface Area) 2 m2 Janelle Go RN [facility] Work Phone: 04-08-2011 08:04-0500 Height 167.64 cm Janelle Go RN [facility] Work Phone: 04-08-2011 08:04-0500 Pulse (Heart Rate) 64 /min Janelle Go RN [facility] Work Phone: Comment on above: Pattern: Regular 04-08-2011 08:04-0500 Respiratory Rate 2064 /min Janelle Go RN [facility] Work Phone: Comment on above: Pattern: Unlabored 02-16-2011 08:20-0400 BMI (Body Mass Index) 31.15 kg/m2 Cyndy Krishnamurthy RN [facility] Work Phone: 02-16-2011 08:20-0400 Body Temperature 99 [degF] Cyndy Krishnamurthy RN [facility] Work Phone: Comment on above: Method: Oral 02-16-2011 08:20-0400 Body weight 87.54 kg Cyndy Krishnamurthy RN [facility] Work Phone: 02-16-2011 08:20-0400 BP Diastolic 62 mm[Hg] Cyndy Krishnamurthy RN [facility] Work Phone: Comment on above: Patient Position: Sitting; Cuff Location : Left Arm; Cuff Size: Standard 02-16-2011 08:20-0400 BP Systolic 116 mm[Hg] Cyndy Krishnamurthy RN [facility] Work Phone: Comment on above: Patient Position: Sitting; Cuff Location : Left Arm; Cuff Size: Standard 02-16-2011 08:20-0400 BSA (Body Surface Area) 1.97 m2 Cyndy Krishnamruthy RN [facility] Work Phone: 02-16-2011 08:20-0400 Height 167.64 cm Cyndy Krishnamurthy RN [facility] Work Phone: 02-16-2011 08:20-0400 Pulse (Heart Rate) 96 /min Cyndy Krishnamurthy RN [facility] Work Phone: Comment on above: Pattern: Regular 02-16-2011 08:20-0400 Pulse Oximetry 98 % Lisa Ziegler [facility] Work Phone: Comment on above: Room air 02-16-2011 08:20-0400 Respiratory Rate 18 /min Cyndy Krishnamurthy RN [facility] Work Phone: Comment on above: Pattern: Unlabored 02-16-2011 08:20-0400 SaO2% (BldA) [Mass fraction] 98 % Cyndy Krishnamurthy RN [facility]; [facility] Work Phone: 12-01-2010 08:47-0400 BMI (Body Mass Index) 30.07 kg/m2 Janelle Go RN [facility] Work Phone: 12-01-2010 08:47-0400 Body Temperature 97.6 [degF] Janelle Go RN [facility] Work Phone: Comment on above: Method: Oral 12-01-2010 08:47-0400 Body weight 84.51 kg Janelle Go RN [facility] Work Phone: 12-01-2010 08:47-0400 BP Diastolic 68 mm[Hg] Janelle Go RN [facility] Work Phone: Comment on above: Patient Position: Sitting; Cuff Location : Left Arm; Cuff Size: Large 12-01-2010 08:47-0400 BP Systolic 118 mm[Hg] Janelle Go RN [facility] Work Phone: Comment on above: Patient Position: Sitting; Cuff Location : Left Arm; Cuff Size: Large 12-01-2010 08:47-0400 BSA (Body Surface Area) 1.94 m2 Janelle Go RN [facility] Work Phone: 12-01-2010 08:47-0400 Height 167.64 cm Janelle Go RN [facility] Work Phone: 12-01-2010 08:47-0400 Pulse (Heart Rate) 68 /min Janelle Go RN [facility] Work Phone: Comment on above: Pattern: Regular 12-01-2010 08:47-0400 Respiratory Rate 20 /min Janelle Go RN [facility] Work Phone: Comment on above: Pattern: Unlabored 08-07-2010 10:44-0400 BMI (Body Mass Index) 28.82 kg/m2 Janelle Go RN [facility] Work Phone: 08-07-2010 10:44-0400 Body weight 81 kg Janelle Go RN [facility] Work Phone: 08-07-2010 10:44-0400 BP Diastolic 68 mm[Hg] Janelle Go RN [facility] Work Phone: Comment on above: Patient Position: Sitting; Cuff Location : Left Arm; Cuff Size: Large 08-07-2010 10:44-0400 BP Systolic 122 mm[Hg] Janelle Go RN [facility] Work Phone: Comment on above: Patient Position: Sitting; Cuff Location : Left Arm; Cuff Size: Large 08-07-2010 10:44-0400 BSA (Body Surface Area) 1.91 m2 Janelle Go RN [facility] Work Phone: 08-07-2010 10:44-0400 Height 167.64 cm Janelle Go RN [facility] Work Phone: 08-07-2010 10:44-0400 Pulse (Heart Rate) 68 /min Janelle Go RN [facility] Work Phone: Comment on above: Pattern: Regular 08-07-2010 10:44-0400 Respiratory Rate 20 /min Janelle Go RN [facility] Work Phone: Comment on above: Pattern: Unlabored 07-29-2010 11:10-0400 BMI (Body Mass Index) 28.55 kg/m2 Janelle Go RN [facility] Work Phone: 07-29-2010 11:10-0400 Body weight 80.24 kg Janelle Go RN [facility] Work Phone: 07-29-2010 11:10-0400 BP Diastolic 82 mm[Hg] Janelle Go RN [facility] Work Phone: Comment on above: Patient Position: Sitting; Cuff Location : Left Arm; Cuff Size: Large 07-29-2010 11:10-0400 BP Systolic 122 mm[Hg] Janelle Go RN [facility] Work Phone: Comment on above: Patient Position: Sitting; Cuff Location : Left Arm; Cuff Size: Large 07-29-2010 11:10-0400 BSA (Body Surface Area) 1.9 m2 Janelle Go RN [facility] Work Phone: 07-29-2010 11:10-0400 Height 167.64 cm Janelle Go RN [facility] Work Phone: 07-29-2010 11:10-0400 Pulse (Heart Rate) 68 /min Janelle Go RN [facility] Work Phone: Comment on above: Pattern: Regular 07-29-2010 11:10-0400 Respiratory Rate 20 /min Janelle Go RN [facility] Work Phone: Comment on above: Pattern: Unlabored 07-25-2010 07:26-0400 BMI (Body Mass Index) 28.55 kg/m2 No Mills RN [facility] Work Phone: 07-25-2010 07:26-0400 Body Temperature 98.1 [degF] No Mills RN [facility] Work Phone: Comment on above: Method: Oral 07-25-2010 07:26-0400 Body weight 80.24 kg No Mills RN [facility] Work Phone: 07-25-2010 07:26-0400 BP Diastolic 80 mm[Hg] No Mills RN [facility] Work Phone: Comment on above: Patient Position: Sitting; Cuff Location : Left Arm; Cuff Size: Standard 07-25-2010 07:26-0400 BP Systolic 120 mm[Hg] No Mills RN [facility] Work Phone: Comment on above: Patient Position: Sitting; Cuff Location : Left Arm; Cuff Size: Standard 07-25-2010 07:26-0400 BSA (Body Surface Area) 1.9 m2 No Mills RN [facility] Work Phone: 07-25-2010 07:26-0400 Height 167.64 cm No Mills RN [facility] Work Phone: 07-25-2010 07:26-0400 Pulse (Heart Rate) 76 /min No Mills RN [facility] Work Phone: Comment on above: Pattern: Regular 07-25-2010 07:26-0400 Respiratory Rate 16 /min No Mills RN [facility] Work Phone: Comment on above: Pattern: Unlabored 07-01-2010 08:45-0500 Body Temperature 97.2 [degF] Maricarmen Cordova LPN [facility] Work Phone: Comment on above: Method: Oral 07-01-2010 08:45-0500 Body weight 81.51 kg Maricarmen Cordova LPN [facility] Work Phone: 07-01-2010 08:45-0500 BP Diastolic 74 mm[Hg] Maricarmen Cordova LPN [facility] Work Phone: Comment on above: Patient Position: Sitting; Cuff Location : Left Arm; Cuff Size: Standard 07-01-2010 08:45-0500 BP Systolic 118 mm[Hg] Maricarmen Cordova LPN [facility] Work Phone: Comment on above: Patient Position: Sitting; Cuff Location : Left Arm; Cuff Size: Standard 07-01-2010 08:45-0500 Pulse (Heart Rate) 82 /min Maricarmen Cordova LPN [facility] Work Phone: Comment on above: Pattern: Regular 07-01-2010 08:45-0500 Respiratory Rate 18 /min Maricarmen Cordova LPN [facility] Work Phone: Comment on above: Pattern: Unlabored 06-25-2010 08:59-0500 Body Temperature 98.7 [degF] Maricarmen Cordova LPN [facility] Work Phone: Comment on above: Method: Oral 06-25-2010 08:59-0500 Body weight 81.51 kg Maricarmen Cordova SECRETARY [facility] Work Phone: 06-25-2010 08:59-0500 BP Diastolic 74 mm[Hg] Maricarmen Cordova SECRETARY [facility] Work Phone: Comment on above: Patient Position: Sitting; Cuff Location : Left Arm; Cuff Size: Standard 06-25-2010 08:59-0500 BP Systolic 122 mm[Hg] Maricarmen Cordova LPN [facility] Work Phone: Comment on above: Patient Position: Sitting; Cuff Location : Left Arm; Cuff Size: Standard 06-25-2010 08:59-0500 Pulse (Heart Rate) 78 /min Maricarmen Cordova LPN [facility] Work Phone: Comment on above: Pattern: Regular 06-25-2010 08:59-0500 Respiratory Rate 18 /min Maricarmen Cordova LPN [facility] Work Phone: Comment on above: Pattern: Unlabored 06-18-2010 08:26-0500 Body Temperature 98.6 [degF] Maricarmen Cordova LPN [facility] Work Phone: Comment on above: Method: Oral 06-18-2010 08:26-0500 Body weight 81.51 kg Maricarmen Cordova LPN [facility] Work Phone: 06-18-2010 08:26-0500 BP Diastolic 72 mm[Hg] Maricarmen Cordova SECRETARY [facility] Work Phone: Comment on above: Patient Position: Sitting; Cuff Location : Left Arm; Cuff Size: Standard 06-18-2010 08:26-0500 BP Systolic 118 mm[Hg] Maricarmen Cordova LPN [facility] Work Phone: Comment on above: Patient Position: Sitting; Cuff Location : Left Arm; Cuff Size: Standard 06-18-2010 08:26-0500 Pulse (Heart Rate) 82 /min Maricarmen Cordova LPN [facility] Work Phone: Comment on above: Pattern: Regular 06-18-2010 08:26-0500 Respiratory Rate 17 /min Maricarmen Cordova LPN [facility] Work Phone: Comment on above: Pattern: Unlabored 06-13-2010 07:18-0500 Body Temperature 98.4 [degF] No Mills RN [facility] Work Phone: Comment on above: Method: Oral 06-13-2010 07:18-0500 Body weight 81.51 kg No Mills RN [facility] Work Phone: 06-13-2010 07:18-0500 BP Diastolic 74 mm[Hg] No Mills RN [facility] Work Phone: Comment on above: Patient Position: Sitting; Cuff Location : Left Arm; Cuff Size: Standard 06-13-2010 07:18-0500 BP Systolic 116 mm[Hg] No Mills RN [facility] Work Phone: Comment on above: Patient Position: Sitting; Cuff Location : Left Arm; Cuff Size: Standard 06-13-2010 07:18-0500 Pulse (Heart Rate) 78 /min No Mills RN [facility] Work Phone: Comment on above: Pattern: Irregular 06-13-2010 07:18-0500 Respiratory Rate 16 /min [place] RN [facility] Work Phone: Comment on above: Pattern: Unlabored 06-06-2010 09:57-0500 BMI (Body Mass Index) 27.57 kg/m2 CHRISTIANO Gonzalez LPN [facility] Work Phone: 06-06-2010 09:57-0500 Body Temperature 98.1 [degF] CHRISTIANO Gonzalez LPN [facility] Work Phone: Comment on above: Method: Oral 06-06-2010 09:57-0500 Body weight 79.83 kg CHRISTIANO Gonzalez LPN [facility] Work Phone: 06-06-2010 09:57-0500 BP Diastolic 76 mm[Hg] CHRISTIANO Gonzalez LPN [facility] Work Phone: Comment on above: Patient Position: Sitting; Cuff Location : Left Arm; Cuff Size: Standard 06-06-2010 09:57-0500 BP Systolic 118 mm[Hg] CHRISTIANO Gonzalez LPN [facility] Work Phone: Comment on above: Patient Position: Sitting; Cuff Location : Left Arm; Cuff Size: Standard 06-06-2010 09:57-0500 BSA (Body Surface Area) 1.92 m2 CHRISTIANO Gonzalez LPN [facility] Work Phone: 06-06-2010 09:57-0500 Height 170.18 cm CHRISTIANO Gonzalez LPN [facility] Work Phone: 06-06-2010 09:57-0500 Pulse (Heart Rate) 74 /min CHRISTIANO Gonzalez LPN [facility] Work Phone: Comment on above: Pattern: Regular 06-06-2010 09:57-0500 Respiratory Rate 20 /min CHRISTIANO Gonzalez LPN [facility] Work Phone: Comment on above: Pattern: Unlabored 05-20-2010 10:28-0500 BMI (Body Mass Index) 27.57 kg/m2 CHRISTIANO Gonzalez LPN [facility] Work Phone: 05-20-2010 10:28-0500 Body Temperature 98.1 [degF] CHRISTIANO Gonzalez LPN [facility] Work Phone: Comment on above: Method: Oral 05-20-2010 10:28-0500 Body weight 79.83 kg CHRISTIANO Gonzalez LPN [facility] Work Phone: 05-20-2010 10:28-0500 BP Diastolic 80 mm[Hg] CHRISTIANO Gonzalez LPN [facility] Work Phone: Comment on above: Patient Position: Sitting; Cuff Location : Left Arm; Cuff Size: Standard 05-20-2010 10:28-0500 BP Systolic 120 mm[Hg] CHRISTIANO Gonzalez LPN [facility] Work Phone: Comment on above: Patient Position: Sitting; Cuff Location : Left Arm; Cuff Size: Standard 05-20-2010 10:28-0500 BSA (Body Surface Area) 1.92 m2 CHRISTIANO Gonzalez LPN [facility] Work Phone: 05-20-2010 10:28-0500 Height 170.18 cm CHRISTIANO Gonzalez LPN [facility] Work Phone: 05-20-2010 10:28-0500 Pulse (Heart Rate) 72 /min CHRISTIANO Gonzalez LPN [facility] Work Phone: Comment on above: Pattern: Regular 05-20-2010 10:28-0500 Respiratory Rate 18 /min CHRISTIANO Gonzalez LPN [facility] Work Phone: Comment on above: Pattern: Unlabored 04-15-2010 11:27-0500 BMI (Body Mass Index) 26.94 kg/m2 CHRISTIANO Gonzalez LPN [facility] Work Phone: 04-15-2010 11:27-0500 Body Temperature 98.6 [degF] CHRISTIANO Gonzalez LPN [facility] Work Phone: Comment on above: Method: Oral 04-15-2010 11:27-0500 Body weight 78.02 kg CHRISTIANO Gonzalez LPN [facility] Work Phone: 04-15-2010 11:27-0500 BP Diastolic 78 mm[Hg] CHRISTIANO Gonzalez LPN [facility] Work Phone: Comment on above: Patient Position: Sitting; Cuff Location : Left Arm; Cuff Size: Standard 04-15-2010 11:27-0500 BP Systolic 122 mm[Hg] CHRISTIANO Gonzalez LPN [facility] Work Phone: Comment on above: Patient Position: Sitting; Cuff Location : Left Arm; Cuff Size: Standard 04-15-2010 11:27-0500 BSA (Body Surface Area) 1.9 m2 CHRISTIANO Gonzalez LPN [facility] Work Phone: 04-15-2010 11:27-0500 Height 170.18 cm CHRISTIANO Gonzalez LPN [facility] Work Phone: 04-15-2010 11:27-0500 Pulse (Heart Rate) 70 /min CHRISTIANO Gonzalez LPN [facility] Work Phone: Comment on above: Pattern: Regular 04-15-2010 11:27-0500 Respiratory Rate 18 /min CHRISTIANO Gonzalez LPN [facility] Work Phone: Comment on above: Pattern: Unlabored 03-14-2010 08:12-0500 Body Temperature 97.8 [degF] Maricarmen Cordova LPN [facility] Work Phone: Comment on above: Method: Oral 03-14-2010 08:12-0500 Body weight 78.16 kg Maricarmen Cordova SECRETARY [facility] Work Phone: 03-14-2010 08:12-0500 BP Diastolic 78 mm[Hg] Maricarmen Cordova LPN [facility] Work Phone: Comment on above: Patient Position: Sitting; Cuff Location : Left Arm; Cuff Size: Standard 03-14-2010 08:12-0500 BP Systolic 128 mm[Hg] Maricarmen Cordova LPN [facility] Work Phone: Comment on above: Patient Position: Sitting; Cuff Location : Left Arm; Cuff Size: Standard 03-14-2010 08:12-0500 Pulse (Heart Rate) 78 /min Maricarmen Cordova LPN [facility] Work Phone: Comment on above: Pattern: Regular 03-14-2010 08:12-0500 Respiratory Rate 17 /min Maricarmen Cordova LPN [facility] Work Phone: Comment on above: Pattern: Unlabored 02-24-2010 08:49-0400 Body Temperature 97.7 [degF] Maricarmen Cordova LPN [facility] Work Phone: Comment on above: Method: Oral 02-24-2010 08:49-0400 Body weight 78.16 kg Maricarmen Cordova LPN [facility] Work Phone: 02-24-2010 08:49-0400 BP Diastolic 72 mm[Hg] Maricarmen Cordova LPN [facility] Work Phone: Comment on above: Patient Position: Sitting; Cuff Location : Left Arm; Cuff Size: Standard 02-24-2010 08:49-0400 BP Systolic 122 mm[Hg] Maricarmen Cordova LPN [facility] Work Phone: Comment on above: Patient Position: Sitting; Cuff Location : Left Arm; Cuff Size: Standard 02-24-2010 08:49-0400 Pulse (Heart Rate) 70 /min Maricarmen Cordova LPN [facility] Work Phone: Comment on above: Pattern: Regular 02-24-2010 08:49-0400 Respiratory Rate 18 /min Maricarmen Cordova LPN [facility] Work Phone: Comment on above: Pattern: Unlabored 01-13-2010 08:55-0400 Body weight 75.01 kg Janelle oG RN [facility] Work Phone: 01-13-2010 08:55-0400 BP Diastolic 60 mm[Hg] Janelle Go RN [facility] Work Phone: Comment on above: Patient Position: Sitting; Cuff Location : Left Arm; Cuff Size: Large 01-13-2010 08:55-0400 BP Systolic 112 mm[Hg] Janelle Go RN [facility] Work Phone: Comment on above: Patient Position: Sitting; Cuff Location : Left Arm; Cuff Size: Large 01-13-2010 08:55-0400 Pulse (Heart Rate) 60 /min Janelle Go RN [facility] Work Phone: Comment on above: Pattern: Regular 01-13-2010 08:55-0400 Respiratory Rate 20 /min Janelle Go RN [facility] Work Phone: Comment on above: Pattern: Unlabored 11-22-2009 08:23-0400 Body weight 75.01 kg Janelle Go RN [facility] Work Phone: 11-22-2009 08:23-0400 BP Diastolic 70 mm[Hg] Janelle Go RN [facility] Work Phone: Comment on above: Patient Position: Sitting; Cuff Location : Left Arm; Cuff Size: Large 11-22-2009 08:23-0400 BP Systolic 118 mm[Hg] Janelle Go RN [facility] Work Phone: Comment on above: Patient Position: Sitting; Cuff Location : Left Arm; Cuff Size: Large 11-22-2009 08:23-0400 Pulse (Heart Rate) 64 /min Janelle Go RN [facility] Work Phone: Comment on above: Pattern: Regular 11-22-2009 08:23-0400 Respiratory Rate 20 /min Janelle Go RN [facility] Work Phone: Comment on above: Pattern: Unlabored 11-01-2009 08:29-0400 Body Temperature 98 [degF] Yanique Crum [facility] Work Phone: 11-01-2009 08:29-0400 BP Diastolic 64 mm[Hg] Yanique Crum [facility] Work Phone: Comment on above: Patient Position: Sitting; Cuff Location : Left Arm; Cuff Size: Standard 11-01-2009 08:29-0400 BP Systolic 102 mm[Hg] Yanique Crum [facility] Work Phone: Comment on above: Patient Position: Sitting; Cuff Location : Left Arm; Cuff Size: Standard 11-01-2009 08:29-0400 Pulse (Heart Rate) 84 /min Yanique Crum [facility] Work Phone: Comment on above: Pattern: Regular 11-01-2009 08:29-0400 Respiratory Rate 16 /min Yanique Crum [facility] Work Phone: Comment on above: Pattern: Unlabored 10-22-2009 10:04-0400 BP Diastolic 60 mm[Hg] Cyndy Krishnamurthy RN [facility] Work Phone: Comment on above: Patient Position: Sitting; Cuff Location : Left Arm; Cuff Size: Large 10-22-2009 10:04-0400 BP Systolic 100 mm[Hg] Cyndy Krishnamurthy RN [facility] Work Phone: Comment on above: Patient Position: Sitting; Cuff Location : Left Arm; Cuff Size: Large 10-22-2009 10:04-0400 Pulse (Heart Rate) 76 /min Cyndy Krishnamurthy RN [facility] Work Phone: Comment on above: Pattern: Regular 10-22-2009 10:04-0400 Respiratory Rate 16 /min Cyndy Krishnamurthy RN [facility] Work Phone: Comment on above: Pattern: Unlabored 08-30-2009 11:21-0400 BMI (Body Mass Index) 25.89 kg/m2 Janelle Go RN [facility] Work Phone: 08-30-2009 11:21-0400 Body weight 74.99 kg Jnaelle Go RN [facility] Work Phone: 08-30-2009 11:21-0400 BP Diastolic 60 mm[Hg] Janelle Go RN [facility] Work Phone: Comment on above: Patient Position: Sitting; Cuff Location : Left Arm; Cuff Size: Standard 08-30-2009 11:21-0400 BP Systolic 102 mm[Hg] Janelle Go RN [facility] Work Phone: Comment on above: Patient Position: Sitting; Cuff Location : Left Arm; Cuff Size: Standard 08-30-2009 11:21-0400 BSA (Body Surface Area) 1.86 m2 Janelle Go RN [facility] Work Phone: 08-30-2009 11:21-0400 Height 170.18 cm Jnaelle Go RN [facility] Work Phone: 08-30-2009 11:21-0400 Pulse (Heart Rate) 60 /min Janelle Go RN [facility] Work Phone: Comment on above: Pattern: Regular 08-30-2009 11:21-0400 Respiratory Rate 20 /min Janelle Go RN [facility] Work Phone: Comment on above: Pattern: Unlabored 08-12-2009 16:05-0400 BMI (Body Mass Index) 26.49 kg/m2 Janelle Go RN [facility] Work Phone: 08-12-2009 16:05-0400 Body Temperature 99.2 [degF] Janelle Go RN [facility] Work Phone: Comment on above: Method: Oral 08-12-2009 16:05-0400 Body weight 76.72 kg Janelle Go RN [facility] Work Phone: 08-12-2009 16:05-0400 BP Diastolic 78 mm[Hg] Janelle Go RN [facility] Work Phone: Comment on above: Patient Position: Sitting; Cuff Location : Left Arm; Cuff Size: Large 08-12-2009 16:05-0400 BP Systolic 118 mm[Hg] Janelle Go RN [facility] Work Phone: Comment on above: Patient Position: Sitting; Cuff Location : Left Arm; Cuff Size: Large 08-12-2009 16:05-0400 BSA (Body Surface Area) 1.88 m2 Janelle Go RN [facility] Work Phone: 08-12-2009 16:05-0400 Height 170.18 cm Janelle Go RN [facility] Work Phone: 08-12-2009 16:05-0400 Pulse (Heart Rate) 64 /min Janelle Go RN [facility] Work Phone: Comment on above: Pattern: Regular 08-12-2009 16:05-0400 Respiratory Rate 20 /min Janelle Go RN [facility] Work Phone: Comment on above: Pattern: Unlabored 07-18-2009 08:34-0400 BMI (Body Mass Index) 26.24 kg/m2 Janelle Go RN [facility] Work Phone: 07-18-2009 08:34-0400 Body weight 76.01 kg Janelle Go RN [facility] Work Phone: 07-18-2009 08:34-0400 BP Diastolic 70 mm[Hg] Janelle Go RN [facility] Work Phone: Comment on above: Patient Position: Sitting; Cuff Location : Left Arm; Cuff Size: Large 07-18-2009 08:34-0400 BP Systolic 110 mm[Hg] Janelle Go RN [facility] Work Phone: Comment on above: Patient Position: Sitting; Cuff Location : Left Arm; Cuff Size: Large 07-18-2009 08:34-0400 BSA (Body Surface Area) 1.88 m2 Janelle Go RN [facility] Work Phone: 07-18-2009 08:34-0400 Height 170.18 cm Janelle Go RN [facility] Work Phone: 07-18-2009 08:34-0400 Pulse (Heart Rate) 76 /min Janelle Go RN [facility] Work Phone: Comment on above: Pattern: Regular 07-18-2009 08:34-0400 Respiratory Rate 20 /min Janelle Go RN [facility] Work Phone: Comment on above: Pattern: Unlabored 06-24-2009 11:18-0500 BMI (Body Mass Index) 27.27 kg/m2 Janelle Go RN [facility] Work Phone: 06-24-2009 11:18-0500 Body weight 78.98 kg Janelle Go RN [facility] Work Phone: 06-24-2009 11:18-0500 BP Diastolic 78 mm[Hg] Janelle Go RN [facility] Work Phone: Comment on above: Patient Position: Sitting; Cuff Location : Left Arm; Cuff Size: Large 06-24-2009 11:18-0500 BP Systolic 128 mm[Hg] Janelle Go RN [facility] Work Phone: Comment on above: Patient Position: Sitting; Cuff Location : Left Arm; Cuff Size: Large 06-24-2009 11:18-0500 BSA (Body Surface Area) 1.91 m2 Janelle Go RN [facility] Work Phone: 06-24-2009 11:18-0500 Height 170.18 cm Janelle Go RN [facility] Work Phone: 06-24-2009 11:18-0500 Pulse (Heart Rate) 72 /min Janelle Go RN [facility] Work Phone: Comment on above: Pattern: Regular 06-24-2009 11:18-0500 Respiratory Rate 20 /min Janelle Go RN [facility] Work Phone: Comment on above: Pattern: Unlabored 06-11-2009 12:08-0500 Body Temperature 97.3 [degF] Yanique Radames [facility] Work Phone: 06-11-2009 12:08-0500 BP Diastolic 62 mm[Hg] Yanique Crum [facility] Work Phone: Comment on above: Patient Position: Sitting; Cuff Location : Left Arm; Cuff Size: Standard 06-11-2009 12:08-0500 BP Systolic 100 mm[Hg] Yanique Crum [facility] Work Phone: Comment on above: Patient Position: Sitting; Cuff Location : Left Arm; Cuff Size: Standard 06-11-2009 12:08-0500 Pulse (Heart Rate) 76 /min Yanique Crum [facility] Work Phone: Comment on above: Pattern: Regular 06-11-2009 12:08-0500 Respiratory Rate 18 /min Yanique Crum [facility] Work Phone: Comment on above: Pattern: Unlabored 05-24-2009 13:50-0500 BMI (Body Mass Index) 27.27 kg/m2 Janelle Go RN [facility] Work Phone: 05-24-2009 13:50-0500 Body weight 78.98 kg Janelle Go RN [facility] Work Phone: 05-24-2009 13:50-0500 BP Diastolic 78 mm[Hg] Janelle Go RN [facility] Work Phone: Comment on above: Patient Position: Sitting; Cuff Location : Left Arm; Cuff Size: Large 05-24-2009 13:50-0500 BP Systolic 122 mm[Hg] Janelle Go RN [facility] Work Phone: Comment on above: Patient Position: Sitting; Cuff Location : Left Arm; Cuff Size: Large 05-24-2009 13:50-0500 BSA (Body Surface Area) 1.91 m2 Janelle Go RN [facility] Work Phone: 05-24-2009 13:50-0500 Height 170.18 cm Janelle Go RN [facility] Work Phone: 05-24-2009 13:50-0500 Pulse (Heart Rate) 68 /min Janelle Go RN [facility] Work Phone: Comment on above: Pattern: Regular 05-24-2009 13:50-0500 Respiratory Rate 20 /min Janelle Go RN [facility] Work Phone: Comment on above: Pattern: Unlabored 02-26-2009 12:41-0400 BMI (Body Mass Index) 27.27 kg/m2 Janelle Go RN [facility] Work Phone: 02-26-2009 12:41-0400 Body Temperature 95.9 [degF] Janelle Go RN [facility] Work Phone: Comment on above: Method: Oral 02-26-2009 12:41-0400 Body weight 78.98 kg Janelle Go RN [facility] Work Phone: 02-26-2009 12:41-0400 BP Diastolic 68 mm[Hg] Janelle Go RN [facility] Work Phone: Comment on above: Patient Position: Sitting; Cuff Location : Left Arm; Cuff Size: Large 02-26-2009 12:41-0400 BP Systolic 118 mm[Hg] Janelle Go RN [facility] Work Phone: Comment on above: Patient Position: Sitting; Cuff Location : Left Arm; Cuff Size: Large 02-26-2009 12:41-0400 BSA (Body Surface Area) 1.91 m2 Janelle Go RN [facility] Work Phone: 02-26-2009 12:41-0400 Head Circumference 0 cm Lisa Ziegler [facility] Work Phone: 02-26-2009 12:41-0400 Head Occipital-frontal circumference 0 cm Janelle Go RN [facility]; [facility] Work Phone: 02-26-2009 12:41-0400 Height 170.18 cm Janelle Go RN [facility] Work Phone: 02-26-2009 12:41-0400 Pulse (Heart Rate) 68 /min Janelle Go RN [facility] Work Phone: Comment on above: Pattern: Regular 02-26-2009 12:41-0400 Respiratory Rate 20 /min Janelle Go RN [facility] Work Phone: Comment on above: Pattern: Unlabored 02-04-2009 11:08-0400 BMI (Body Mass Index) 27.27 kg/m2 Janelle Go RN [facility] Work Phone: 02-04-2009 11:08-0400 Body weight 78.98 kg Janelle Go RN [facility] Work Phone: 02-04-2009 11:08-0400 BP Diastolic 62 mm[Hg] Janelle Go RN [facility] Work Phone: Comment on above: Patient Position: Sitting; Cuff Location : Left Arm; Cuff Size: Large 02-04-2009 11:08-0400 BP Systolic 120 mm[Hg] Janelle Go RN [facility] Work Phone: Comment on above: Patient Position: Sitting; Cuff Location : Left Arm; Cuff Size: Large 02-04-2009 11:08-0400 BSA (Body Surface Area) 1.91 m2 Janelle Go RN [facility] Work Phone: 02-04-2009 11:08-0400 Head Circumference 0 cm Lisa Coronelon [facility] Work Phone: 02-04-2009 11:08-0400 Head Occipital-frontal circumference 0 cm Janelle Go RN [facility]; [facility] Work Phone: 02-04-2009 11:08-0400 Height 170.18 cm Janelle Go RN [facility] Work Phone: 02-04-2009 11:08-0400 Pulse (Heart Rate) 80 /min Janelle Go RN [facility] Work Phone: Comment on above: Pattern: Regular 02-04-2009 11:08-0400 Respiratory Rate 20 /min Janelle Go RN [facility] Work Phone: Comment on above: Pattern: Unlabored 02-01-2009 12:21-0400 BMI (Body Mass Index) 27.28 kg/m2 Maricarmen Peñamargaret PACHECO [facility] Work Phone: 02-01-2009 12:21-0400 Body Temperature 97.7 [degF] Maricarmen Cordova TARA [facility] Work Phone: Comment on above: Method: Oral 02-01-2009 12:21-0400 Body weight 79.01 kg Maricarmen Art PACHECO [facility] Work Phone: 02-01-2009 12:21-0400 BP Diastolic 68 mm[Hg] Maricarmen Art PACHECO [facility] Work Phone: Comment on above: Patient Position: Sitting; Cuff Location : Left Arm; Cuff Size: Standard 02-01-2009 12:21-0400 BP Systolic 118 mm[Hg] Maricarmen Cordova TARA [facility] Work Phone: Comment on above: Patient Position: Sitting; Cuff Location : Left Arm; Cuff Size: Standard 02-01-2009 12:21-0400 BSA (Body Surface Area) 1.91 m2 Maricarmen Cordova TARA [facility] Work Phone: 02-01-2009 12:21-0400 Head Circumference 0 cm Lisa Ziegler [facility] Work Phone: 02-01-2009 12:21-0400 Head Occipital-frontal circumference 0 cm Maricarmen Peñamargaret PACHECO [facility]; [facility] Work Phone: 02-01-2009 12:21-0400 Height 170.18 cm Maricarmen Art PACHECO [facility] Work Phone: 02-01-2009 12:21-0400 Pulse (Heart Rate) 86 /min Maricarmen Cordova SECRETARY [facility] Work Phone: Comment on above: Pattern: Regular 02-01-2009 12:21-0400 Respiratory Rate 19 /min Maricarmen Cordova SECRETARY [facility] Work Phone: Comment on above: Pattern: Unlabored 01-21-2009 10:49-0400 BMI (Body Mass Index) 27.28 kg/m2 Janelle Go RN [facility] Work Phone: 01-21-2009 10:49-0400 Body weight 79.01 kg Janelle Go RN [facility] Work Phone: 01-21-2009 10:49-0400 BP Diastolic 76 mm[Hg] Janelle Go RN [facility] Work Phone: Comment on above: Patient Position: Sitting; Cuff Location : Left Arm; Cuff Size: Large 01-21-2009 10:49-0400 BP Systolic 118 mm[Hg] Janelle Go RN [facility] Work Phone: Comment on above: Patient Position: Sitting; Cuff Location : Left Arm; Cuff Size: Large 01-21-2009 10:49-0400 BSA (Body Surface Area) 1.91 m2 Janelle Go RN [facility] Work Phone: 01-21-2009 10:49-0400 Head Circumference 0 cm Lisa Ziegler [facility] Work Phone: 01-21-2009 10:49-0400 Head Occipital-frontal circumference 0 cm Janelle Go RN [facility]; [facility] Work Phone: 01-21-2009 10:49-0400 Height 170.18 cm Janelle Go RN [facility] Work Phone: 01-21-2009 10:49-0400 Pulse (Heart Rate) 80 /min Janelle Go RN [facility] Work Phone: Comment on above: Pattern: Regular 01-21-2009 10:49-0400 Respiratory Rate 20 /min Janelle Go RN [facility] Work Phone: Comment on above: Pattern: Unlabored 12-31-2008 10:47-0400 BMI (Body Mass Index) 27.28 kg/m2 Janelle Go RN [facility] Work Phone: 12-31-2008 10:47-0400 Body weight 79.01 kg Janelle Go RN [facility] Work Phone: 12-31-2008 10:47-0400 BP Diastolic 76 mm[Hg] Janelle Go RN [facility] Work Phone: Comment on above: Patient Position: Sitting; Cuff Location : Left Arm; Cuff Size: Large 12-31-2008 10:47-0400 BP Systolic 118 mm[Hg] Janelle Go RN [facility] Work Phone: Comment on above: Patient Position: Sitting; Cuff Location : Left Arm; Cuff Size: Large 12-31-2008 10:47-0400 BSA (Body Surface Area) 1.91 m2 Janelle Go RN [facility] Work Phone: 12-31-2008 10:47-0400 Head Circumference 0 cm Lisa Ziegler [facility] Work Phone: 12-31-2008 10:47-0400 Head Occipital-frontal circumference 0 cm Janelle Go RN [facility]; [facility] Work Phone: 12-31-2008 10:47-0400 Height 170.18 cm Janelle Go RN [facility] Work Phone: 12-31-2008 10:47-0400 Pulse (Heart Rate) 64 /min Janelle Go RN [facility] Work Phone: Comment on above: Pattern: Regular 12-31-2008 10:47-0400 Respiratory Rate 20 /min Janelle Go RN [facility] Work Phone: Comment on above: Pattern: Unlabored 12-26-2008 14:32-0400 BMI (Body Mass Index) 27.64 kg/m2 Janelle Go RN [facility] Work Phone: 12-26-2008 14:32-0400 Body Temperature 98.9 [degF] Janelle Go RN [facility] Work Phone: Comment on above: Method: Oral 12-26-2008 14:32-0400 Body weight 80.06 kg Janelle Go RN [facility] Work Phone: 12-26-2008 14:32-0400 BP Diastolic 78 mm[Hg] Janelle Go RN [facility] Work Phone: Comment on above: Patient Position: Sitting; Cuff Location : Left Arm; Cuff Size: Large 12-26-2008 14:32-0400 BP Systolic 118 mm[Hg] Janelle Go RN [facility] Work Phone: Comment on above: Patient Position: Sitting; Cuff Location : Left Arm; Cuff Size: Large 12-26-2008 14:32-0400 BSA (Body Surface Area) 1.92 m2 Janelle Go RN [facility] Work Phone: 12-26-2008 14:32-0400 Head Circumference 0 cm Lisa Ziegler [facility] Work Phone: 12-26-2008 14:32-0400 Head Occipital-frontal circumference 0 cm Janelle Go RN [facility]; [facility] Work Phone: 12-26-2008 14:32-0400 Height 170.18 cm Janelle Go RN [facility] Medicine Work Phone: 12-26-2008 14:32-0400 Pulse (Heart Rate) 64 /min Janelle Go RN [facility] Internal Medicine Work Phone: Comment on above: Pattern: Regular 12-26-2008 14:32-0400 Respiratory Rate 20 /min Janelle Go RN Comprehensiv e Internal Medicine Work Phone: Comment on above: Pattern: Unlabored 11-27-2008 14:20-0400 BMI (Body Mass Index) 29.29 kg/m2 Es Ilana [facility] Internal Medicine Work Phone: 11-27-2008 14:20-0400 Body weight 84.82 kg Es Ilana [facility] Internal Medicine Work Phone: 11-27-2008 14:20-0400 BP Diastolic 70 mm[Hg] Es Ilana [facility] Internal Medicine Work Phone: Comment on above: Patient Position: Supine; Cuff Location: Left Arm; Cuff Size: Standard 11-27-2008 14:20-0400 BP Systolic 118 mm[Hg] Es [facility] Internal Medicine Work Phone: Comment on above: Patient Position: Supine; Cuff Location: Left Arm; Cuff Size: Standard 11-27-2008 14:20-0400 BSA (Body Surface Area) 1.97 m2 Es [facility] Internal Medicine Work Phone: 11-27-2008 14:20-0400 Head Circumference 0 cm Lisa Ziegler [facility] Internal Medicine Work Phone: 11-27-2008 14:20-0400 Head Occipital-frontal circumference 0 cm Es [facility] Internal Medicine; [facility] Internal Medicine Work Phone: 11-27-2008 14:20-0400 Height 170.18 cm Es [facility] Internal Medicine Work Phone: 11-27-2008 14:20-0400 Pulse (Heart Rate) 72 /min [facility] Internal Medicine Work Phone: Comment on above: Pattern: Regular 11-27-2008 14:20-0400 Respiratory Rate 16 /min Es [facility] Internal Medicine Work Phone: Comment on above: Pattern: Unlabored 09-13-2008 15:39-0400 Body Temperature 100.1 [degF] [facility] Internal Medicine Work Phone: Comment on above: Method: Oral 09-13-2008 15:39-0400 Body weight 84.82 kg [facility] Internal Medicine Work Phone: 09-13-2008 15:39-0400 BP Diastolic 62 mm[Hg] [facility] Internal Medicine Work Phone: Comment on above: Patient Position: Sitting; Cuff Location : Left Arm; Cuff Size: Standard 09-13-2008 15:39-0400 BP Systolic 108 mm[Hg] [facility] Internal Medicine Work Phone: Comment on above: Patient Position: Sitting; Cuff Location : Left Arm; Cuff Size: Standard 09-13-2008 15:39-0400 Head Circumference 0 cm Lisa Ziegler [facility] Internal Medicine Work Phone: 09-13-2008 15:39-0400 Head Occipital-frontal circumference 0 cm Chantell [facility] Internal Medicine; [facility] Work Phone: 09-13-2008 15:39-0400 Height 0 cm Chantell [facility] Internal Medicine Work Phone: 09-13-2008 15:39-0400 Pulse (Heart Rate) 82 /min Chantell [facility] Internal Medicine Work Phone: Comment on above: Pattern: Regular 09-13-2008 15:39-0400 Respiratory Rate 18 /min Chantell [facility] Internal Medicine Work Phone: Comment on above: Pattern: Unlabored 08-06-2008 11:05-0400 BMI (Body Mass Index) 29.8 kg/m2 Es [facility] Internal Medicine Work Phone: 08-06-2008 11:05-0400 Body weight 86.3 kg [facility] Internal Medicine Work Phone: 08-06-2008 11:05-0400 BP Diastolic 70 mm[Hg] [facility] Internal Medicine Work Phone: Comment on above: Patient Position: Supine; Cuff Location: Left Arm; Cuff Size: Standard 08-06-2008 11:05-0400 BP Systolic 112 mm[Hg] [facility] Internal Medicine Work Phone: Comment on above: Patient Position: Supine; Cuff Location: Left Arm; Cuff Size: Standard 08-06-2008 11:05-0400 BSA (Body Surface Area) 1.98 m2 [facility] Internal Medicine Work Phone: 08-06-2008 11:05-0400 Head Circumference 0 cm Lisa Ziegler [facility] Internal Medicine Work Phone: 08-06-2008 11:05-0400 Head Occipital-frontal circumference 0 cm Es [facility] Internal Medicine; [facility] Work Phone: 08-06-2008 11:05-0400 Height 170.18 cm Es Horn [facility] Work Phone: 08-06-2008 11:05-0400 Pulse (Heart Rate) 60 /min Es Preciado [facility] Internal Medicine Work Phone: Comment on above: Pattern: Regular 08-06-2008 11:05-0400 Respiratory Rate 16 /min Es Preciado [facility] Internal Medicine Work Phone: Comment on above: Pattern: Unlabored 07-02-2008 11:00-0500 BMI (Body Mass Index) 30.68 kg/m2 Janelle Go RN [facility] Work Phone: 07-02-2008 11:00-0500 Body weight 86.21 kg Janelle Go RN [facility] Work Phone: 07-02-2008 11:00-0500 BP Diastolic 70 mm[Hg] Janelle Go RN [facility] Work Phone: Comment on above: Patient Position: Sitting; Cuff Location : Left Arm; Cuff Size: Large 07-02-2008 11:00-0500 BP Systolic 124 mm[Hg] Janelle Go RN [facility] Work Phone: Comment on above: Patient Position: Sitting; Cuff Location : Left Arm; Cuff Size: Large 07-02-2008 11:00-0500 BSA (Body Surface Area) 1.96 m2 Janelle Go RN [facility] Work Phone: 07-02-2008 11:00-0500 Head Circumference 0 cm Lisa Ziegler [facility] Work Phone: 07-02-2008 11:00-0500 Head Occipital-frontal circumference 0 cm Janelle Go RN [facility]; [facility] Work Phone: 07-02-2008 11:00-0500 Height 167.64 cm Janelle Go RN [facility] Work Phone: 07-02-2008 11:00-0500 Pulse (Heart Rate) 88 /min Janelle Go RN [facility] Internal Medicine Work Phone: Comment on above: Pattern: Regular 07-02-2008 11:00-0500 Respiratory Rate 20 /min Janelle Go RN Comprehensiv e Internal Medicine Work Phone: Comment on above: Pattern: Unlabored 06-08-2008 10:59-0500 BMI (Body Mass Index) 30.68 kg/m2 Janelle Go RN [facility] Work Phone: 06-08-2008 10:59-0500 Body Temperature 97 [degF] Janelle Go RN Comprehensiv e Internal Medicine Work Phone: Comment on above: Method: Oral 06-08-2008 10:59-0500 Body weight 86.21 kg Janelle Go RN [facility] Work Phone: 06-08-2008 10:59-0500 BP Diastolic 70 mm[Hg] Janelle Go RN [facility] Work Phone: Comment on above: Patient Position: Sitting; Cuff Location : Left Arm; Cuff Size: Large 06-08-2008 10:59-0500 BP Systolic 124 mm[Hg] Janelle Go RN [facility] Work Phone: Comment on above: Patient Position: Sitting; Cuff Location : Left Arm; Cuff Size: Large 06-08-2008 10:59-0500 BSA (Body Surface Area) 1.96 m2 Janelle Go RN [facility] Work Phone: 06-08-2008 10:59-0500 Head Circumference 0 cm Lisa Ziegler [facility] Work Phone: 06-08-2008 10:59-0500 Head Occipital-frontal circumference 0 cm Janelle Go RN [facility]; [facility] Work Phone: 06-08-2008 10:59-0500 Height 167.64 cm Janelle Go RN [facility] Work Phone: 06-08-2008 10:59-0500 Pulse (Heart Rate) 64 /min Janelle Go RN [facility] Internal Medicine Work Phone: Comment on above: Pattern: Regular 06-08-2008 10:59-0500 Respiratory Rate 16 /min Janelle Go RN Comprehensiv e Internal Medicine Work Phone: Comment on above: Pattern: Unlabored 03-12-2008 08:11-0500 Body Temperature 98.4 [degF] Chantell Thomas [facility] Work Phone: Comment on above: Method: Oral 03-12-2008 [id number]:110500 Body weight 86.21 kg Chantell [facility] Work Phone: 03-12-2008 08:11-0500 BP Diastolic 78 mm[Hg] Chantell [facility] Internal Medicine Work Phone: Comment on above: Patient Position: Sitting; Cuff Location : Left Arm; Cuff Size: Standard 03-12-2008 08:11-0500 BP Systolic 120 mm[Hg] Chantell [facility] Internal Medicine Work Phone: Comment on above: Patient Position: Sitting; Cuff Location : Left Arm; Cuff Size: Standard 03-12-2008 08:11-0500 Head Circumference 0 cm Lisa Ziegler [facility] Internal Medicine Work Phone: 03-12-2008 08:11-0500 Head Occipital-frontal circumference 0 cm Chantell [facility] Internal Medicine; [facility] Internal Medicine Work Phone: 03-12-2008 08:11-0500 Height 0 cm Chantell [facility] Internal Medicine Work Phone: 03-12-2008 08:11-0500 Pulse (Heart Rate) 84 /min Chantell [facility] Internal Medicine Work Phone: Comment on above: Pattern: Regular 03-12-2008 08:11-0500 Respiratory Rate 20 /min Chantell [facility] Internal Medicine Work Phone: Comment on above: Pattern: Unlabored 03-09-2008 13:23-0500 BMI (Body Mass Index) 30.58 kg/m2 Janelle Go RN [facility] Work Phone: 03-09-2008 13:23-0500 Body Temperature 97.9 [degF] Janelle Go RN Comprehens e Internal Medicine Work Phone: Comment on above: Method: Oral 03-09-2008 13:23-0500 Body weight 85.93 kg Janelle Go RN [facility] Work Phone: 03-09-2008 13:23-0500 BP Diastolic 68 mm[Hg] Janelle Go RN [facility] Work Phone: Comment on above: Patient Position: Sitting; Cuff Location : Left Arm; Cuff Size: Standard 03-09-2008 13:23-0500 BP Systolic 118 mm[Hg] Janelle Go RN [facility] Work Phone: Comment on above: Patient Position: Sitting; Cuff Location : Left Arm; Cuff Size: Standard 03-09-2008 13:23-0500 BSA (Body Surface Area) 1.95 m2 Janelle Go RN [facility] Work Phone: 03-09-2008 13:23-0500 Head Circumference 0 cm Lisa Ziegler [facility] Work Phone: 03-09-2008 13:23-0500 Head Occipital-frontal circumference 0 cm Janelle Go RN [facility]; [facility] Work Phone: 03-09-2008 13:23-0500 Height 167.64 cm Janelle Go RN [facility] Work Phone: 03-09-2008 13:23-0500 Pulse (Heart Rate) 80 /min Janelle Go RN [facility] Internal Medicine Work Phone: Comment on above: Pattern: Regular 03-09-2008 13:23-0500 Respiratory Rate 20 /min Janelle Go RN Comprehensiv e Internal Medicine Work Phone: Comment on above: Pattern: Unlabored 01-10-2008 08:21-0400 BMI (Body Mass Index) 30.58 kg/m2 Es [facility] Internal Medicine Work Phone: 01-10-2008 08:21-0400 Body weight 85.93 kg Es [facility] Internal Medicine Work Phone: 01-10-2008 08:21-0400 BP Diastolic 78 mm[Hg] Es [facility] Internal Medicine Work Phone: Comment on above: Patient Position: Sitting; Cuff Location : Left Arm; Cuff Size: Standard 01-10-2008 08:21-0400 BP Systolic 110 mm[Hg] Es [facility] Internal Medicine Work Phone: Comment on above: Patient Position: Sitting; Cuff Location : Left Arm; Cuff Size: Standard 01-10-2008 08:21-0400 BSA (Body Surface Area) 1.95 m2 Es [facility] Internal Medicine Work Phone: 01-10-2008 08:21-0400 Head Circumference 0 cm Lisa Ziegler [facility] Internal Medicine Work Phone: 01-10-2008 08:21-0400 Head Occipital-frontal circumference 0 cm Es Preciado [facility] Internal Medicine; [facility] Work Phone: 01-10-2008 08:21-0400 Height 167.64 cm Es [facility] Internal Medicine Work Phone: 01-10-2008 08:21-0400 Pulse (Heart Rate) 88 /min Es [facility] Internal Medicine Work Phone: Comment on above: Pattern: Regular 01-10-2008 08:21-0400 Respiratory Rate 16 /min Es [facility] Internal Medicine Work Phone: Comment on above: Pattern: Unlabored 01-09-2008 08:06-0400 Body Temperature 97.2 [degF] Maricarmenfaraz Cordova LPN Comprehensiv e Internal Medicine Work Phone: Comment on above: Method: Oral 01-09-2008 08:06-0400 Body weight 87.32 kg Maricarmen Cordova LPN [facility] Internal Medicine Work Phone: 01-09-2008 08:06-0400 BP Diastolic 72 mm[Hg] Maricarmen Cordova LPN [facility] Work Phone: Comment on above: Patient Position: Sitting; Cuff Location : Left Arm; Cuff Size: Standard 01-09-2008 08:06-0400 BP Systolic 126 mm[Hg] Maricarmen Cordova LPN [facility] Work Phone: Comment on above: Patient Position: Sitting; Cuff Location : Left Arm; Cuff Size: Standard 01-09-2008 08:06-0400 Head Circumference 0 cm Lisa Ziegler [facility] Internal Medicine Work Phone: 01-09-2008 08:06-0400 Head Occipital-frontal circumference 0 cm Maricarmen Cordova LPN [facility]; [facility] Work Phone: 01-09-2008 08:06-0400 Height 0 cm Maricarmen Cordova TARA [facility] Work Phone: 01-09-2008 08:06-0400 Pulse (Heart Rate) 74 /min Maricarmen Cordova LPN [facility] Work Phone: Comment on above: Pattern: Regular 01-09-2008 08:06-0400 Respiratory Rate 16 /min Maricarmen Cordova LPN Comprehens[facility] Internal Medicine Work Phone: Comment on above: Pattern: Unlabored 12-28-2007 07:49-0400 Body weight 87.32 kg Janelle Go RN [facility] Work Phone: 12-28-2007 07:49-0400 BP Diastolic 70 mm[Hg] Janelle Go RN [facility] Work Phone: Comment on above: Patient Position: Sitting; Cuff Location : Left Arm; Cuff Size: Standard 12-28-2007 07:49-0400 BP Systolic 118 mm[Hg] Janelle Go RN [facility] Work Phone: Comment on above: Patient Position: Sitting; Cuff Location : Left Arm; Cuff Size: Standard 12-28-2007 07:49-0400 Head Circumference 0 cm Lisa Ziegler [facility] Work Phone: 12-28-2007 07:49-0400 Head Occipital-frontal circumference 0 cm Janelle Go RN [facility]; [facility] Work Phone: 12-28-2007 07:49-0400 Height 0 cm Janelle Go RN [facility] Work Phone: 12-28-2007 07:49-0400 Pulse (Heart Rate) 80 /min Janelle Go RN [facility] Internal Medicine Work Phone: Comment on above: Pattern: Regular 12-28-2007 07:49-0400 Respiratory Rate 20 /min Janelle Go RN Comprehensiv e Internal Medicine Work Phone: Comment on above: Pattern: Unlabored 09-14-2007 08:04-0400 Body Temperature 98.6 [degF] Galina West [facility] Work Phone: Comment on above: Method: Oral 09-14-2007 08:04-0400 Body weight 88.[address] [facility] Internal Medicine Work Phone: 09-14-2007 08:04-0400 BP Diastolic 72 mm[Hg] [facility] Internal Medicine Work Phone: Comment on above: Patient Position: Sitting; Cuff Location : Left Arm; Cuff Size: Large 09-14-2007 08:04-0400 BP Systolic 122 mm[Hg] [facility] Internal Medicine Work Phone: Comment on above: Patient Position: Sitting; Cuff Location : Left Arm; Cuff Size: Large 09-14-2007 08:04-0400 Head Circumference 0 cm Lisa Ziegler [facility] Internal Medicine Work Phone: 09-14-2007 08:04-0400 Head Occipital-frontal circumference [address] [facility] Internal [facility]; [facility] Internal Medicine Work Phone: 09-14-2007 08:04-0400 Height 0 cm [facility] Medicine Work Phone: 09-14-2007 08:04-0400 Pulse (Heart Rate) 80 /min [facility] Internal Medicine Work Phone: Comment on above: Pattern: Regular 09-14-2007 08:04-0400 Respiratory Rate 18 /min [facility] Internal Medicine Work Phone: Comment on above: Pattern: Unlabored 09-13-2007 12:09-0400 Body Temperature 97.8 [degF] Janelle Go RN Comprehensiv e Internal Medicine Work Phone: Comment on above: Method: Oral 09-13-2007 12:09-0400 Body weight 88.14 kg Janelle Go RN [facility] Work Phone: 09-13-2007 12:09-0400 BP Diastolic 68 mm[Hg] Janelle Go RN [facility] Work Phone: Comment on above: Patient Position: Sitting; Cuff Location : Left Arm; Cuff Size: Large 09-13-2007 12:09-0400 BP Systolic 118 mm[Hg] Janelle Go RN [facility] Work Phone: Comment on above: Patient Position: Sitting; Cuff Location : Left Arm; Cuff Size: Large 09-13-2007 12:09-0400 Head Circumference 0 cm Lisa Ziegler [facility] Work Phone: 09-13-2007 12:09-0400 Head Occipital-frontal circumference 0 cm Janelle Go RN [facility]; [facility] Work Phone: 09-13-2007 12:09-0400 Height 0 cm Janelle Go RN [facility] Work Phone: 09-13-2007 12:09-0400 Pulse (Heart Rate) 80 /min Janelle Go RN [facility] Work Phone: Comment on above: Pattern: Regular 09-13-2007 12:09-0400 Respiratory Rate 20 /min Janelle Go RN Comprehensiv e Internal Medicine Work Phone: Comment on above: Pattern: Unlabored 08-30-2007 08:24-0400 Body Temperature 97.6 [degF] Janelle Go RN Comprehensiv e Internal Medicine Work Phone: Comment on above: Method: Oral 08-30-2007 08:24-0400 Body weight 88.14 kg Janelle Go RN [facility] Work Phone: 08-30-2007 08:24-0400 BP Diastolic 72 mm[Hg] Janelle Go RN [facility] Work Phone: Comment on above: Patient Position: Sitting; Cuff Location : Left Arm; Cuff Size: Standard 08-30-2007 08:24-0400 BP Systolic 118 mm[Hg] Janelle Go RN [facility] Work Phone: Comment on above: Patient Position: Sitting; Cuff Location : Left Arm; Cuff Size: Standard 08-30-2007 08:24-0400 Head Circumference 0 cm Lisa Ziegler [facility] Work Phone: 08-30-2007 08:24-0400 Head Occipital-frontal circumference 0 cm Janelle Go RN [facility]; [facility] Work Phone: 08-30-2007 08:24-0400 Height 0 cm Janelle Go RN [facility] Work Phone: 08-30-2007 08:24-0400 Pulse (Heart Rate) 88 /min Janelle Go RN [facility] Work Phone: Comment on above: Pattern: Regular 08-30-2007 08:24-0400 Respiratory Rate 20 /min Janelle Go RN Comprehensiv e Internal Medicine Work Phone: Comment on above: Pattern: Unlabored 08-01-2007 08:10-0400 Body Temperature 98.3 [degF] Maricarmen Cordova SECRETARY Comprehensiv e Internal Medicine Work Phone: Comment on above: Method: Oral 08-01-2007 08:100400 Body weight 95.37 kg Maricarmen Cordova TARA [facility] Work Phone: 08-01-2007 08:10-0400 BP Diastolic 76 mm[Hg] Maricarmen Peñamargaret PACHECO [facility] Work Phone: Comment on above: Patient Position: Sitting; Cuff Location : Left Arm; Cuff Size: Standard 08-01-2007 08:10-0400 BP Systolic 118 mm[Hg] Maricarmen Cordova TARA [facility] Work Phone: Comment on above: Patient Position: Sitting; Cuff Location : Left Arm; Cuff Size: Standard 08-01-2007 08:10-0400 Head Circumference 0 cm Lisa Ziegler [facility] Work Phone: 08-01-2007 08:10-0400 Head Occipital-frontal circumference 0 cm Maricarmen Art PACHECO [facility]; [facility] Work Phone: 08-01-2007 08:10-0400 Height 0 cm Maricarmen Cordova TARA [facility] Work Phone: 08-01-2007 08:10-0400 Pulse (Heart Rate) 80 /min Maricarmen Cordova SECRETARY Comprehens [facility] Work Phone: Comment on above: Pattern: Regular 08-01-2007 08:10-0400 Respiratory Rate 18 /min Maricarmen Cordova SECRETARY Comprehensiv e Internal Medicine Work Phone: Comment on above: Pattern: Unlabored 05-17-2007 11:40-0500 Body Temperature 98.9 [degF] Yanique Crum [facility] Internal Medicine Work Phone: Comment on above: Method: Oral 05-17-2007 11:40-0500 Body weight 0 kg Yanique Crum [facility] Internal Medicine Work Phone: 05-17-2007 11:40-0500 BP Diastolic 74 mm[Hg] Yanique Crum [facility] Internal Medicine Work Phone: Comment on above: Patient Position: Sitting; Cuff Location : Right Arm; Cuff Size: Standard 05-17-2007 11:40-0500 BP Systolic 110 mm[Hg] Yanique Crum [facility] Internal Medicine Work Phone: Comment on above: Patient Position: Sitting; Cuff Location : Right Arm; Cuff Size: Standard 05-17-2007 11:40-0500 Head Circumference 0 cm Lisa Ziegler [facility] Internal Medicine Work Phone: 05-17-2007 11:40-0500 Head Occipital-frontal circumference 0 cm Yanique Crum [facility] Internal Medicine; [facility] Medicine Work Phone: 05-17-2007 11:40-0500 Height 0 cm Yanique Crum [facility] Internal Medicine Work Phone: 05-17-2007 11:40-0500 Respiratory Rate 16 /min Yanique Shabazzdeysi [facility] Internal Medicine Work Phone: Comment on above: Pattern: Unlabored 05-11-2007 10:02-0500 Body weight 95.37 kg Janelle Go RN [facility] Work Phone: 05-11-2007 10:02-0500 BP Diastolic 88 mm[Hg] Janelle Go RN [facility] Work Phone: Comment on above: Patient Position: Sitting; Cuff Location : Left Arm; Cuff Size: Large 05-11-2007 10:02-0500 BP Systolic 138 mm[Hg] Janelle Go RN [facility] Work Phone: Comment on above: Patient Position: Sitting; Cuff Location : Left Arm; Cuff Size: Large 05-11-2007 10:02-0500 Head Circumference 0 cm Lisa Ziegler [facility] Work Phone: 05-11-2007 10:02-0500 Head Occipital-frontal circumference 0 cm Janelle Go RN [facility]; [facility] Work Phone: 05-11-2007 10:02-0500 Height 0 cm Janelle Go RN [facility] Work Phone: 05-11-2007 10:02-0500 Pulse (Heart Rate) 88 /min Janelle Go RN [facility] Work Phone: Comment on above: Pattern: Regular 05-11-2007 10:02-0500 Respiratory Rate 20 /min Janelle Go RN Comprehensiv e Internal Medicine Work Phone: Comment on above: Pattern: Unlabored 05-06-2007 14:56-0500 Body Temperature 98.6 [degF] Janelle Go RN Comprehensiv e [facility] Medicine Work Phone: Comment on above: Method: Oral 05-06-2007 14:56-0500 Body weight 90.27 kg Janelle Go RN [facility] Work Phone: 05-06-2007 14:56-0500 BP Diastolic 82 mm[Hg] Janelle oG RN [facility] Work Phone: Comment on above: Patient Position: Sitting; Cuff Location : Right Arm; Cuff Size: Standard 05-06-2007 14:56-0500 BP Systolic 132 mm[Hg] Janelle Go RN [facility] Work Phone: Comment on above: Patient Position: Sitting; Cuff Location : Right Arm; Cuff Size: Standard 05-06-2007 14:56-0500 Head Circumference 0 cm Lisa Coronelon [facility] Work Phone: 05-06-2007 14:56-0500 Head Occipital-frontal circumference 0 cm Janelle Go RN [facility]; [facility] Work Phone: 05-06-2007 14:56-0500 Height 0 cm Janelle Go RN [facility] Work Phone: 05-06-2007 14:56-0500 Pulse (Heart Rate) 88 /min Janelle Go RN [facility] Work Phone: Comment on above: Pattern: Regular 05-06-2007 14:56-0500 Respiratory Rate 20 /min Janelle Go RN Comprehensiv e Internal Medicine Work Phone: Comment on above: Pattern: Unlabored 03-15-2007 11:00-0500 Body Temperature 98.8 [degF] Janelle Go RN Comprehensiv e Internal Medicine Work Phone: Comment on above: Method: Oral 03-15-2007 11:00-0500 Body weight 90.27 kg Janelle Go RN [facility] Work Phone: 03-15-2007 11:00-0500 BP Diastolic 70 mm[Hg] Janelle Go RN [facility] Work Phone: Comment on above: Patient Position: Sitting; Cuff Location : Left Arm; Cuff Size: Standard 03-15-2007 11:00-0500 BP Systolic 116 mm[Hg] Janelle Go RN [facility] Work Phone: Comment on above: Patient Position: Sitting; Cuff Location : Left Arm; Cuff Size: Standard 03-15-2007 11:00-0500 Head Circumference 0 cm Lisa Ziegler [facility] Work Phone: 03-15-2007 11:00-0500 Head Occipital-frontal circumference 0 cm Janelle Go RN [facility]; [facility] Work Phone: 03-15-2007 11:00-0500 Height 0 cm Janelle Go RN [facility] Work Phone: 03-15-2007 11:00-0500 Pulse (Heart Rate) 80 /min Janelle Go RN [facility] Work Phone: Comment on above: Pattern: Regular 03-15-2007 11:00-0500 Respiratory Rate 20 /min Janelle oG RN [facility] Work Phone: Comment on above: Pattern: Unlabored 01-12-2007 08:24-0400 Body Temperature 98.6 [degF] Maricarmen Cordova LPN [facility] Work Phone: Comment on above: Method: Oral 01-12-2007 08:24-0400 Body weight 90.27 kg Maricarmen Cordova LPN [facility] Work Phone: 01-12-2007 08:24-0400 BP Diastolic 80 mm[Hg] Maricarmen Cordova LPN [facility] Work Phone: Comment on above: Patient Position: Sitting; Cuff Location : Left Arm; Cuff Size: Standard 01-12-2007 08:24-0400 BP Systolic 124 mm[Hg] Maricarmen Cordova LPN [facility] Work Phone: Comment on above: Patient Position: Sitting; Cuff Location : Left Arm; Cuff Size: Standard 01-12-2007 08:24-0400 Head Circumference 0 cm Lisa Ziegler [facility] Work Phone: 01-12-2007 08:24-0400 Head Occipital-frontal circumference 0 cm Maricarmen Cordova LPN [facility]; [facility] Work Phone: 01-12-2007 08:24-0400 Height 0 cm Maricarmen Cordvoa LPN [facility] Work Phone: 01-12-2007 08:24-0400 Pulse (Heart Rate) 80 /min Maricarmen Cordova LPN [facility] Work Phone: Comment on above: Pattern: Regular 01-12-2007 08:24-0400 Respiratory Rate 18 /min Maricarmen Cordova LPN [facility] Work Phone: Comment on above: Pattern: Unlabored 11-11-2006 09:19-0400 Body weight 90.27 kg Maricarmen Cordova LPN [facility] Work Phone: 11-11-2006 09:19-0400 BP Diastolic 78 mm[Hg] Maricarmen Cordova LPN [facility] Work Phone: Comment on above: Patient Position: Sitting; Cuff Location : Left Arm; Cuff Size: Standard 11-11-2006 09:19-0400 BP Systolic 122 mm[Hg] Maricarmen Cordova LPN [facility] Work Phone: Comment on above: Patient Position: Sitting; Cuff Location : Left Arm; Cuff Size: Standard 11-11-2006 09:19-0400 Head Circumference 0 cm Lisa Ziegler [facility] Work Phone: 11-11-2006 09:19-0400 Head Occipital-frontal circumference 0 cm Maricarmen Cordova SECRETARY [facility]; [facility] Work Phone: 11-11-2006 09:19-0400 Height 0 cm Maricarmen Cordova LPN [facility] Work Phone: 11-11-2006 09:19-0400 Pulse (Heart Rate) 78 /min Maricamren Cordova LPN [facility] Work Phone: Comment on above: Pattern: Regular 11-11-2006 09:19-0400 Respiratory Rate 17 /min Maricarmen Cordova LPN [facility] Work Phone: Comment on above: Pattern: Unlabored 06-30-2006 15:29-0500 Body Temperature 97.8 [degF] CHRISTIANO Gonzalez LPN [facility] Work Phone: Comment on above: Method: Oral 06-30-2006 15:29-0500 Body weight 90.27 kg CHRISTIANO Gonzalez SECRETARY [facility] Work Phone: 06-30-2006 15:29-0500 BP Diastolic 80 mm[Hg] CHRISTIANO Gonzalez LPN [facility] Work Phone: Comment on above: Patient Position: Sitting; Cuff Location : Left Arm; Cuff Size: Standard 06-30-2006 15:29-0500 BP Systolic 120 mm[Hg] CHRISTIANO Gonzalez LPN [facility] Work Phone: Comment on above: Patient Position: Sitting; Cuff Location : Left Arm; Cuff Size: Standard 06-30-2006 15:29-0500 Head Circumference 0 cm Lisa Ziegler [facility] Work Phone: 06-30-2006 15:29-0500 Head Occipital-frontal circumference 0 cm CHRISTIANO Gonzalez LPN [facility]; [facility] Work Phone: 06-30-2006 15:29-0500 Height 0 cm CHRISTIANO Gonzalez LPN [facility] Work Phone: 06-30-2006 15:29-0500 Pulse (Heart Rate) 80 /min CHRISTIANO Gonzalez LPN [facility] Work Phone: Comment on above: Pattern: Regular 06-30-2006 15:29-0500 Respiratory Rate 20 /min CHRISTIANO Goznalez LPN [facility] Work Phone: Comment on above: Pattern: Unlabored 05-20-2006 13:02-0500 Body Temperature 97.3 [degF] Lisa Ziegler [facility] Work Phone: Comment on above: Method: Undefined 05-20-2006 13:02-0500 Body weight 0 kg Lisa Ziegler [facility] Work Phone: 05-20-2006 13:02-0500 BP Diastolic 70 mm[Hg] Lisa Ziegler [facility] Work Phone: Comment on above: Patient Position: Sitting; Cuff Location : Left Arm; Cuff Size: Standard 05-20-2006 13:02-0500 BP Systolic 130 mm[Hg] Lisa Ziegler [facility] Work Phone: Comment on above: Patient Position: Sitting; Cuff Location : Left Arm; Cuff Size: Standard 05-20-2006 13:02-0500 Head Circumference 0 cm Lisa Ziegler [facility] Work Phone: 05-20-2006 13:02-0500 Head Occipital-frontal circumference 0 cm Lisa Ziegler DO Work Phone: [facility]; [facility] Work Phone: 05-20-2006 13:02-0500 Height 0 cm Lisa Ziegler [facility] Work Phone: 05-20-2006 13:02-0500 Pulse (Heart Rate) 72 /min Lisa Ziegler [facility] Work Phone: Comment on above: Pattern: Regular 05-20-2006 13:02-0500 Respiratory Rate 16 /min Lisa Ziegler [facility] Work Phone: Comment on above: Pattern: Undefined 05-04-2006 11:41-0500 Body Temperature 97.7 [degF] CHRISTIANO Gonzalez LPN [facility] Work Phone: Comment on above: Method: Oral 05-04-2006 11:41-0500 Body weight 90.27 kg CHRISTIANO Gonzalez LPN [facility] Work Phone: 05-04-2006 11:41-0500 BP Diastolic 80 mm[Hg] CHRISTIANO Gonzalez LPN [facility] Work Phone: Comment on above: Patient Position: Sitting; Cuff Location : Left Arm; Cuff Size: Standard 05-04-2006 11:41-0500 BP Systolic 116 mm[Hg] CHRISTIANO Gonzalez LPN [facility] Work Phone: Comment on above: Patient Position: Sitting; Cuff Location : Left Arm; Cuff Size: Standard 05-04-2006 11:41-0500 Head Circumference 0 cm Lisa Ziegler [facility] Work Phone: 05-04-2006 11:41-0500 Head Occipital-frontal circumference 0 cm CHRISTIANO Gonzalez LPN [facility]; [facility] Work Phone: 05-04-2006 11:41-0500 Height 0 cm CHRISTIANO Gonzalez LPN [facility] Work Phone: 05-04-2006 11:41-0500 Pulse (Heart Rate) 80 /min CHRISTIANO Gonzalez LPN [facility] Work Phone: Comment on above: Pattern: Regular 05-04-2006 11:41-0500 Respiratory Rate 20 /min CHRISTIANO Gonzalez LPN [facility] Work Phone: Comment on above: Pattern: Unlabored 04-15-2006 13:23-0500 Body Temperature 98.6 [degF] Lisa Ziegler [facility] Work Phone: Comment on above: Method: Oral 04-15-2006 13:23-0500 Body weight 0 kg Lisa Ziegler [facility] Work Phone: 04-15-2006 13:23-0500 BP Diastolic 78 mm[Hg] Lisa Ziegler [facility] Work Phone: Comment on above: Patient Position: Sitting; Cuff Location : Left Arm; Cuff Size: Standard 04-15-2006 13:23-0500 BP Systolic 132 mm[Hg] Lisa Coronelon [facility] Work Phone: Comment on above: Patient Position: Sitting; Cuff Location : Left Arm; Cuff Size: Standard 04-15-2006 13:23-0500 Head Circumference 0 cm Lisa Coronelon [facility] Work Phone: 04-15-2006 13:23-0500 Head Occipital-frontal circumference 0 cm Lisa Ming DO Work Phone: [facility]; [facility] Work Phone: 04-15-2006 13:23-0500 Height 0 cm Lisa Ziegler [facility] Work Phone: 04-15-2006 13:23-0500 Pulse (Heart Rate) 84 /min Lisa Coronelon [facility] Work Phone: Comment on above: Pattern: Regular 04-15-2006 13:23-0500 Respiratory Rate 22 /min Lisa Coronelon [facility] Work Phone: Comment on above: Pattern: Undefined Encounters Encounter Date Encounter Type Care Provider Facility Start: 03-09-2025 ambulatory Aly Gotti Facility :[facility] Start: 02-23-2025 ambulatory Lisa Ziegler Facilit y:[facility] Start: 02-21-2025 ambulatory Lisa Ziegler Facilit y:[facility] Start: 02-06-2025 End: 02-06-2025 Patient encounter procedure Aly Gotti DO -[facility] Work Phone: Start: 02-06-2025 End: 02-06-[address] Lisa Ziegler DO Work Phone: -[facility] Start: 01-29-[address] Lisa Ziegler DO -Cat Scan [facility] Work Phone: Start: 01-29-2025 End: 01-29-2025 ambulatory Lisa Ziegler Facility:[facility] Start: 01-18-2025 End: 01-18-[address] Lisa Ziegler DO Work Phone: -Laboratory Start: 01-18-2025 End: 01-18-[address] Lisa Ziegler DO -Laboratory Work Phone: Start: 01-18-2025 End: 01-18-2025 ambulatory Lisa Ziegler Facility:[facility] Start: 11-22-2024 End: 11-22-[address] Lisa Ziegler DO Work Phone: -Laboratory [place] Start: 11-22-2024 End: 11-22-[address] Tk Simeon MD -[facility] Work Phone: Start: 11-22-2024 End: 11-22-2024 ambulatory Tk Simeon Facility:[facility] Start: 09-18-2024 Encounter for gynecological examination (general) (routine) without abnormal findings Katey Elizabeth [facility] Start: 09-18-2024 End: 09-18-[address] Katey Elizabeth MD [facility] Start: 09-18-2024 End: 09-18-[address] Lisa Ziegler DO Work Phone: [facility] Work Phone: Start: 09-18-2024 End: 09-18-[address] Katey Elizabeth MD -[facility] Work Phone: Start: 09-18-2024 End: 09-18-2024 ambulatory Katey Elizabeth Facility:[facility] Start: 05-29-2023 End: 05-29-2023 ambulatory [facility] Work Phone: Start: 05-29-2023 End: 05-29-2023 Patient encounter procedure [facility] Work Phone: Start: 01-20-2023 End: 01-21-2023 Office outpatient visit 15 minutes Lisa Ziegler DO Work Phone: [facility] Start: 01-14-2023 End: 01-14-2023 Office outpatient visit 15 minutes Lisa Ziegler DO Work Phone: [facility] Start: 01-14-2023 Lisa Duran n DO Work Phone: [facility] Start: 10-23-2022 End: 10-23-[address] Lisa Ziegler Work Phone: [facility] Work Phone: Start: 10-23-2022 End: 10-23-[address] Lisa Ziegler Work Phone: [facility]-Physical Therapy Work Phone: Start: 09-11-2022 ambulatory Lisa Ziegler DO [facility] Start: 09-11-2022 End: 09-11-[address] Lisa Ziegler Work Phone: [facility] Start: 09-11-2022 End: 09-11-2022 Office outpatient visit 25 minutes Lisa Ziegler DO Work Phone: [facility] Start: 08-20-2022 End: 08-20-[address] Lisa Ziegler Work Phone: [facility] Work Phone: Start: 08-20-2022 End: 08-20-[address] Lisa Ziegler Work Phone: [facility] Start: 04-03-2022 End: 04-03-2022 Office outpatient visit 10 minutes Lisa Ziegler DO Work Phone: [facility] Start: 03-13-2022 Lisa Duran n DO Work Phone: [facility] Start: 03-13-2022 End: 03-13-2022 Office outpatient visit 25 minutes Lisa Ming DO Work Phone: [facility] Start: 08-12-2021 End: 08-12-[address] Lisa Ziegler Work Phone: [facility]-Laboratory, Specimen Start: 08-12-2021 End: 08-12-[address] Lisa Ziegler Work Phone: [facility]-Outpatient Breast Imaging Start: 06-16-2021 End: 06-16-[address] Lisa Ziegler Work Phone: [facility] Start: 04-03-2021 End: 04-03-2021 Office outpatient visit 15 minutes Lisa Ziegler DO Work Phone: [facility] Start: 12-02-2020 End: 12-02-2020 Office outpatient visit 10 minutes Lisa Ming DO Work Phone: [facility] Start: 08-16-2020 End: 08-16-2020 Lisayue Coronelon DO Work Phone: [facility] Start: 07-19-2020 End: 07-19-2020 Office outpatient visit 15 minutes Lisa Ziegler [facility] Start: 05-06-2020 End: 05-06-2020 Office outpatient visit 5 minutes Lisa Ziegler [facility] Start: 12-22-2019 End: 12-22-2019 Office outpatient visit 15 minutes Lisa Ziegler [facility] Start: 09-12-2019 End: 09-12-2019 Annotation/Addendum Lisa Ziegler [facility] Start: 09-12-2019 End: 09-12-2019 Lisa Ming DO Work Phone: [facility] Start: 09-12-2019 End: 09-12-2019 Annotation/Addendum Lisa Ziegler [facility] Start: 09-12-2019 End: 09-12-2019 Lisa Ziegler DO Work Phone: [facility] Start: 09-12-2019 End: 09-12-2019 Office outpatient visit 25 minutes Lisa Ming [facility] Start: 09-12-2019 End: 09-12-2019 Annotation/Addendum Lisa Ming [facility] Start: 09-12-2019 End: 09-12-2019 Lisa Ziegler DO Work Phone: [facility] Start: 09-07-2019 End: 09-07-2019 Phone Encounter Lisa Coronelon [facility] Start: 09-07-2019 End: 09-07-2019 Lisa Ziegler DO Work Phone: [facility] Start: 09-04-2019 End: 09-04-2019 Office outpatient visit 25 minutes Lisa Ziegler [facility] Start: 08-30-2019 End: 08-30-2019 Office outpatient visit 15 minutes Lisa Ming [facility] Start: 08-25-2019 End: 08-25-2019 Phone Encounter Lisa Coronelon [facility] Start: 08-25-2019 End: 08-25-2019 Lisa Ziegler DO Work Phone: [facility] Start: 07-21-2019 End: 07-21-2019 Periodic preventive med est patient 40-64yrs Lisa Ziegler [facility] Start: 03-14-2019 End: 03-14-2019 Office outpatient visit 15 minutes Lisa Ziegler [facility] Start: 06-10-2018 End: 06-10-2018 Annotation/Addendum Lisa Ming [facility] Start: 06-10-2018 End: 06-10-2018 Lisa Ziegler DO Work Phone: [facility] Start: 06-10-2018 End: 06-10-2018 Office outpatient visit 15 minutes Lisa Ziegler [facility] Start: 02-01-2018 End: 02-01-2018 Office outpatient visit 15 minutes Lisa Ziegler [facility] Start: 01-26-2018 End: 01-26-2018 Office outpatient visit 25 minutes Lisa Ziegler [facility] Start: 01-21-2018 End: 01-21-2018 Office outpatient visit 15 minutes Lisa Ming [facility] Start: 06-17-2017 End: 06-17-2017 Office outpatient visit 15 minutes Lisa Ming [facility] Start: 03-15-2017 End: 03-15-2017 Phone Encounter Lisa Ming [facility] Start: 03-15-2017 End: 03-15-2017 Lisa Ziegler DO Work Phone: [facility] Start: 03-05-2017 End: 03-05-2017 Phone Encounter Lisa Ming [facility] Start: 03-05-2017 End: 03-05-2017 Lisa Ziegler DO Work Phone: [facility] Start: 03-04-2017 End: 03-04-2017 Office outpatient visit 15 minutes Lisa Ziegler [facility] Start: 02-25-2017 End: 02-25-2017 Office outpatient visit 15 minutes Lisa Ziegler [facility] Start: 12-24-2016 End: 12-24-2016 Office outpatient visit 15 minutes Lisa Ming [facility] Start: 12-16-2016 End: 12-16-2016 Patient encounter procedure Lisa Ming [facility] Start: 12-16-2016 End: 12-16-2016 Lisa Ziegler DO Work Phone: [facility] Start: 12-04-2016 End: 12-04-2016 Office outpatient visit 15 minutes Lisa Ming [facility] Start: 12-03-2016 End: 12-03-2016 Phone Encounter Lisa Ming [facility] Start: 12-03-2016 End: 12-03-2016 Lisa Zieglre DO Work Phone: [facility] Start: 12-03-2016 End: 12-03-2016 Annotation/Addendum Lisa Ziegler [facility] Start: 12-03-2016 End: 12-03-2016 Lisa Ziegler DO Work Phone: [facility] Start: 12-03-2016 End: 12-03-2016 Office outpatient visit 25 minutes Lisa Ziegler [facility] Start: 10-21-2016 End: 10-21-2016 Phone Encounter Lisayue Ziegler [facility] Start: 10-21-2016 End: 10-21-2016 Lisayue Ziegler DO Work Phone: [facility] Start: 08-28-2016 End: 08-28-2016 Office outpatient visit 15 minutes Lisa Ziegler [facility] Start: 05-05-2016 End: 05-05-2016 Office outpatient visit 15 minutes Lisa Ziegler [facility] Start: 04-10-2016 End: 04-10-2016 Office outpatient visit 15 minutes Lisa Ziegler [facility] Start: 04-07-2016 End: 04-07-2016 Annotation/Addendum Lisa Ziegler [facility] Start: 04-07-2016 End: 04-07-2016 Lisanate Ziegler DO Work Phone: [facility] Start: 04-07-2016 End: 04-07-2016 Office outpatient visit 25 minutes Lisa Ziegler [facility] Start: 03-02-2016 End: 03-02-2016 Office outpatient visit 15 minutes Lisa Ziegler [facility] Start: 02-14-2016 End: 02-14-2016 Office outpatient visit 15 minutes Lisa Ziegler [facility] Start: 08-15-2015 End: 08-15-2015 Office outpatient visit 15 minutes Lisa Ziegler [facility] Start: 08-08-2015 End: 08-08-2015 Office outpatient visit 15 minutes Lisa Ziegler [facility] Start: 08-01-2015 End: 08-01-2015 Office outpatient visit 25 minutes Lisa Ziegler [facility] Start: 07-24-2015 End: 07-24-2015 Office outpatient visit 25 minutes Lisa Ziegler [facility] Start: 07-08-2015 End: 07-08-2015 Office outpatient visit 15 minutes Lisa Ziegler [facility] Start: 06-07-2015 End: 06-07-2015 Office outpatient visit 15 minutes Lisa Ziegler [facility] Start: 05-14-2015 End: 05-14-2015 Office outpatient visit 25 minutes Lisa Ziegler [facility] Start: 04-23-2015 End: 04-23-2015 Patient encounter procedure Lisa Ziegler [facility] Start: 04-23-2015 End: 04-23-2015 Lisa Ming DO Work Phone: [facility] Start: 04-09-2015 End: 04-09-2015 Patient encounter procedure Lisa Ziegler [facility] Start: 04-09-2015 End: 04-09-2015 Lisa Ziegler DO Work Phone: [facility] Start: 04-05-2015 End: 04-05-2015 Office outpatient visit 25 minutes Lisa Ziegler [facility] Start: 02-21-2015 End: 02-21-2015 Office outpatient visit 15 minutes Lisa Ziegler [facility] Start: 11-08-2014 End: 11-08-2014 Office outpatient visit 25 minutes Lisa Ziegler [facility] Start: 07-02-2014 End: 07-02-2014 Office outpatient visit 15 minutes Lisa Ziegler [facility] Start: 06-20-2014 End: 06-20-2014 Phone Encounter Lisa Ziegler [facility] Start: 06-20-2014 End: 06-20-2014 Lisa Ziegler DO Work Phone: [facility] Start: 02-20-2014 End: 02-20-2014 Erroneous Entry Lisa Ziegler [facility] Start: 02-20-2014 End: 02-20-2014 Lisa Ziegler DO Work Phone: [facility] Start: 02-20-2014 End: 02-20-2014 Office outpatient visit 40 minutes Lisa Ziegler [facility] Start: 01-05-2014 End: 01-05-2014 Office outpatient visit 15 minutes Lisa Ziegler [facility] Start: 07-10-2013 End: 07-10-2013 Patient encounter procedure Lisa Ziegler [facility] Start: 07-10-2013 End: 07-10-2013 Lisa Ziegler DO Work Phone: [facility] Start: 06-26-2013 End: 06-26-2013 Patient encounter procedure Lisa Ziegler [facility] Start: 06-26-2013 End: 06-26-2013 Lisa Ziegler DO Work Phone: [facility] Start: 06-15-2013 End: 06-15-2013 Patient encounter procedure Lisa Ziegler [facility] Start: 06-15-2013 End: 06-15-2013 Lisa Ziegler DO Work Phone: [facility] Start: 06-05-2013 End: 06-05-2013 Patient encounter procedure Lisa Ziegler [facility] Start: 06-05-2013 End: 06-05-2013 Lisa Ziegler DO Work Phone: [facility] Start: 05-02-2013 End: 05-02-2013 Office outpatient visit 25 minutes Lisa Ziegler [facility] Start: 04-28-2013 End: 04-28-2013 Patient encounter procedure Lisa Ziegler [facility] Start: 04-28-2013 End: 04-28-2013 Lisa Ziegler DO Work Phone: [facility] Start: 02-16-2013 End: 02-16-2013 Patient encounter procedure Lisa Ziegler [facility] Start: 02-16-2013 End: 02-16-2013 Lisa Ziegler DO Work Phone: [facility] Start: 01-30-2013 End: 01-30-2013 Office outpatient visit 25 minutes Lisa Ziegler [facility] Start: 12-26-2012 End: 12-26-2012 Office outpatient visit 25 minutes Lisa Ziegler [facility] Start: 10-06-2012 End: 10-06-2012 Patient encounter procedure Lisa Ziegler [facility] Start: 10-06-2012 End: 10-06-2012 Lisa Ziegler DO Work Phone: [facility] Start: 05-31-2012 End: 06-06-2012 Patient encounter procedure Lisa Ziegler [facility] Start: 05-31-2012 End: 06-06-2012 Lisa Ziegler DO Work Phone: [facility] Start: 05-10-2012 End: 05-10-2012 Patient encounter procedure Lisa Ziegler [facility] Start: 05-10-2012 End: 05-10-2012 Lisa Ziegler DO Work Phone: [facility] Start: 02-09-2012 End: 02-09-2012 Patient encounter procedure Lisa Ziegler [facility] Start: 02-09-2012 End: 02-09-2012 Lisa Ziegler DO Work Phone: [facility] Start: 02-01-2012 End: 02-01-2012 Patient encounter procedure Lisa Ziegler [facility] Start: 02-01-2012 End: 02-01-2012 Lisa Ziegler DO Work Phone: [facility] Start: 10-12-2011 End: 10-12-2011 Phone Encounter Lisa Ziegler [facility] Start: 10-12-2011 End: 10-12-2011 Lisa Ziegler DO Work Phone: [facility] Start: 10-12-2011 End: 10-12-2011 Patient encounter procedure Lisa Ziegler [facility] Start: 10-12-2011 End: 10-12-2011 Lisa Ziegler DO Work Phone: [facility] Start: 09-11-2011 End: 09-11-2011 Lab Order Lisa Ziegler [facility] Start: 09-11-2011 End: 09-11-2011 Lisa Ziegler DO Work Phone: [facility] Start: 09-09-2011 End: 09-09-2011 Patient encounter procedure Lisa Ziegler [facility] Start: 09-09-2011 End: 09-09-2011 Lisa Ziegler DO Work Phone: [facility] Start: 08-26-2011 End: 08-26-2011 Office outpatient visit 15 minutes Lisa Ziegler [facility] Start: 04-08-2011 End: 04-08-2011 Patient encounter procedure Lisa Ziegler [facility] Start: 04-08-2011 End: 04-08-2011 Lisa Ziegler DO Work Phone: [facility] Start: 02-16-2011 End: 02-16-2011 Office outpatient visit 25 minutes Lisa Ziegler [facility] Start: 12-01-2010 End: 12-01-2010 Patient encounter procedure Lisa Ziegler [facility] Start: 12-01-2010 End: 12-01-2010 Lisa Ziegler DO Work Phone: [facility] Start: 08-07-2010 End: 08-07-2010 Patient encounter procedure Lisa Ziegler [facility] Start: 08-07-2010 End: 08-07-2010 Lisa Ziegler DO Work Phone: [facility] Start: 07-29-2010 End: 07-29-2010 Patient encounter procedure Lisa Ziegler [facility] Start: 07-29-2010 End: 07-29-2010 Lisa Ziegler DO Work Phone: [facility] Start: 07-25-2010 End: 07-25-2010 Patient encounter procedure Lisa Ziegler [facility] Start: 07-25-2010 End: 07-25-2010 Lisa Ziegler DO Work Phone: [facility] Start: 07-01-2010 End: 07-01-2010 Office outpatient visit 25 minutes Lias Ziegler [facility] Start: 06-25-2010 End: 06-25-2010 Annotation/Addendum Lisa Ziegler [facility] Start: 06-25-2010 End: 06-25-2010 Lisa Ziegler DO Work Phone: [facility] Start: 06-25-2010 End: 06-25-2010 Office outpatient visit 25 minutes Lisa Ziegler [facility] Start: 06-18-2010 End: 06-18-2010 Office outpatient visit 25 minutes Lisa Ziegler [facility] Start: 06-13-2010 End: 06-13-2010 Patient encounter procedure Lisa Ziegler [facility] Start: 06-13-2010 End: 06-13-2010 Lisa Ziegler DO Work Phone: [facility] Start: 06-06-2010 End: 06-06-2010 Patient encounter procedure Lisa Ziegler [facility] Start: 06-06-2010 End: 06-06-2010 Lisa Ziegler DO Work Phone: [facility] Start: 06-02-2010 End: 06-02-2010 Error Encounter Lisa Ziegler [facility] Start: 06-02-2010 End: 06-02-2010 Lisa Ziegler DO Work Phone: [facility] Start: 05-20-2010 End: 05-20-2010 Patient encounter procedure Lisa Ziegler [facility] Start: 05-20-2010 End: 05-20-2010 Lisa Ziegler DO Work Phone: [facility] Start: 04-15-2010 End: 04-15-2010 Office outpatient visit 25 minutes Lisa Ziegler [facility] Start: 03-14-2010 End: 03-14-2010 Office outpatient visit 15 minutes Lisa Ziegler [facility] Start: 02-24-2010 End: 02-24-2010 Office outpatient visit 15 minutes Lisa Ziegler [facility] Start: 01-13-2010 End: 01-13-2010 Patient encounter procedure Lisa Ziegler [facility] Start: 01-13-2010 End: 01-13-2010 Lisa Ziegler DO Work Phone: [facility] Start: 12-31-2009 End: 12-31-2009 Phone Encounter Lisa Ziegler [facility] Start: 12-31-2009 End: 12-31-2009 Lisa Ziegler DO Work Phone: [facility] Start: 11-22-2009 End: 11-22-2009 Patient encounter procedure Lisa Ziegler [facility] Start: 11-22-2009 End: 11-22-2009 Lisa Ziegler DO Work Phone: [facility] Start: 11-01-2009 End: 11-01-2009 Patient encounter procedure Lisa Ziegler [facility] Start: 11-01-2009 End: 11-01-2009 Lisa Ziegler DO Work Phone: [facility] Start: 10-22-2009 End: 10-22-2009 Patient encounter procedure Lisa Ziegler [facility] Start: 10-22-2009 End: 10-22-2009 Lisa Ziegler DO Work Phone: [facility] Start: 08-30-2009 End: 08-30-2009 Patient encounter procedure Lisa Ziegler [facility] Start: 08-30-2009 End: 08-30-2009 Lisa Ziegler DO Work Phone: [facility] Start: 08-12-2009 End: 08-12-2009 Patient encounter procedure Lisa Ziegler [facility] Start: 08-12-2009 End: 08-12-2009 Lisa Ziegler DO Work Phone: [facility] Start: 07-18-2009 End: 07-18-2009 Patient encounter procedure Lisa Ziegler [facility] Start: 07-18-2009 End: 07-18-2009 Lisa Ziegler DO Work Phone: [facility] Start: 06-24-2009 End: 06-24-2009 Patient encounter procedure Lisa Ziegler [facility] Start: 06-24-2009 End: 06-24-2009 Lisa Ziegler DO Work Phone: [facility] Start: 06-11-2009 End: 06-11-2009 Patient encounter procedure Lisa Ziegler [facility] Start: 06-11-2009 End: 06-11-2009 Lisa Ziegler DO Work Phone: [facility] Start: 05-24-2009 End: 05-24-2009 Patient encounter procedure Lisa Ziegler [facility] Start: 05-24-2009 End: 05-24-2009 Lisa Ziegler DO Work Phone: [facility] Start: 02-26-2009 End: 02-26-2009 Patient encounter procedure Lisa Ziegler [facility] Start: 02-26-2009 End: 02-26-2009 Lisa Ziegler DO Work Phone: [facility] Start: 02-04-2009 End: 02-04-2009 Patient encounter procedure Lisa Ziegler [facility] Start: 02-04-2009 End: 02-04-2009 Lisa Ziegler DO Work Phone: [facility] Start: 02-01-2009 End: 02-01-2009 Patient encounter procedure Lisa Ziegler [facility] Start: 02-01-2009 End: 02-01-2009 Lisa Ziegler DO Work Phone: [facility] Start: 01-21-2009 End: 01-21-2009 Patient encounter procedure Lisa Ziegler [facility] Start: 01-21-2009 End: 01-21-2009 Lisayue Coronelon DO Work Phone: [facility] Start: 12-31-2008 End: 12-31-2008 Patient encounter procedure Lisa Ziegler [facility] Start: 12-31-2008 End: 12-31-2008 Lisa Ziegler DO Work Phone: [facility] Start: 12-26-2008 End: 12-26-2008 Patient encounter procedure Lisa Ziegler [facility] Start: 12-26-2008 End: 12-26-2008 Lisa Ziegler DO Work Phone: [facility] Start: 11-27-2008 End: 11-27-2008 Error Encounter Lisa Ziegler [facility] Start: 11-27-2008 End: 11-27-2008 Lisa Ziegler DO Work Phone: [facility] Start: 11-27-2008 End: 11-27-2008 Office outpatient visit 15 minutes Lisa Ziegler [facility] Start: 09-13-2008 End: 09-13-2008 Office outpatient visit 25 minutes Lisa Ziegler [facility] Start: 08-06-2008 End: 08-06-2008 Patient encounter procedure Lisa Ziegler [facility] Start: 08-06-2008 End: 08-06-2008 Lisa Ziegler DO Work Phone: [facility] Start: 07-02-2008 End: 07-02-2008 Patient encounter procedure Lisa Ziegler [facility] Start: 07-02-2008 End: 07-02-2008 Lisa Ziegler DO Work Phone: [facility] Start: 06-08-2008 End: 06-08-2008 Patient encounter procedure Lisa Ziegler [facility] Start: 06-08-2008 End: 06-08-2008 Lisa Ziegler DO Work Phone: [facility] Start: 03-12-2008 End: 03-12-2008 Office outpatient visit 15 minutes Lisa Ziegler [facility] Start: 03-09-2008 End: 03-09-2008 Patient encounter procedure Lisa Ziegler [facility] Start: 03-09-2008 End: 03-09-2008 Lisa Ziegler DO Work Phone: [facility] Start: 01-10-2008 End: 01-10-2008 Patient encounter procedure Lisa Ziegler [facility] Start: 01-10-2008 End: 01-10-2008 Lisa Ziegler DO Work Phone: [facility] Start: 01-09-2008 End: 01-09-2008 Office outpatient visit 15 minutes Lisa Ziegler [facility] Start: 12-28-2007 End: 12-28-2007 Patient encounter procedure Lisa Ziegler [facility] Start: 12-28-2007 End: 12-28-2007 Lisa Ziegler DO Work Phone: [facility] Start: 09-14-2007 End: 09-14-2007 Patient encounter procedure Lisa Ziegler [facility] Start: 09-14-2007 End: 09-14-2007 Lisa Ziegler DO Work Phone: [facility] Start: 09-13-2007 End: 09-13-2007 Patient encounter procedure Lisa Ziegler [facility] Start: 09-13-2007 End: 09-13-2007 Lisa Ziegler DO Work Phone: [facility] Start: 08-30-2007 End: 08-30-2007 Office outpatient visit 25 minutes Lisa Ziegler [facility] Start: 08-01-2007 End: 08-01-2007 Office outpatient visit 15 minutes Lisa Ziegler [facility] Start: 05-17-2007 End: 05-17-2007 Patient encounter procedure Lisa Ziegler [facility] Start: 05-17-2007 End: 05-17-2007 Lisa Ziegler DO Work Phone: [facility] Start: 05-11-2007 End: 05-11-2007 Patient encounter procedure Lisa Ziegler [facility] Start: 05-11-2007 End: 05-11-2007 Lisa Ziegler DO Work Phone: [facility] Start: 05-06-2007 End: 05-06-2007 Patient encounter procedure Lisa Ziegler [facility] Start: 05-06-2007 End: 05-06-2007 Lisa Ziegler DO Work Phone: [facility] Start: 03-15-2007 End: 03-15-2007 Office outpatient visit 25 minutes Lisa Ziegler [facility] Start: 01-12-2007 End: 01-12-2007 Office outpatient visit 15 minutes Lisa Ziegler [facility] Start: 11-11-2006 End: 11-11-2006 Office outpatient visit 25 minutes Lisa Ziegler [facility] Start: 06-30-2006 End: 06-30-2006 Office outpatient visit 25 minutes Lisa Ming [facility] Start: 05-20-2006 End: 05-20-2006 Office outpatient visit 25 minutes Lisa Ziegler [facility] Start: 05-18-2006 End: 05-18-2006 Historical Summary Lisa Ziegler [facility] Start: 05-18-2006 End: 05-18-2006 Lisa Ziegler DO Work Phone: [facility] Start: 05-04-2006 End: 05-04-2006 Office outpatient visit 15 minutes Lisa Ming [facility] Start: 04-19-2006 End: 04-19-2006 Phone Encounter Lisa Ziegler [facility] Start: 04-19-2006 End: 04-19-2006 Lisa Ziegler DO Work Phone: [facility] Start: 04-15-2006 End: 04-15-2006 Office outpatient visit 25 minutes Lisa Ziegler [facility] Physical examination Samara Bruce CMA [facility]; [facility] Work Phone: Physical examination Isabel Guillen SECRETARY [facility]; [facility] Work Phone: Physical examination Eliecer Youssef SECRETARY [facility]; [facility] Work Phone: Physical examination Eliecer Youssef SECRETARY [facility]; [facility] Work Phone: Physical examination Isabel Guillen SECRETARY [facility]; [facility] Work Phone: Physical examination CHRISTIANO Gonzalez LPN [facility]; [facility] Work Phone: Physical examination Isabelluna Guillen SECRETARY [facility]; [facility] Work Phone: Procedures Date Procedure Procedure Detail Performing Clinician Start: 01-29-[address] Lisa Ziegler DO Work Phone: Start: 01-18-2025 Plain X-ray abdomen Dr. Lisa Ziegler DO Work Phone: Start: 01-18-2025 Methadone measurement, urine Dr. Lisa Ziegler DO Work Phone: Start: 11-22-2024 Endomys[address] antibody IgA level Dr. Lisa Ziegler DO Work Phone: Start: 09-18-[address] Lisa Ziegler DO Work Phone: Start: 09-21-2022 End: 09-21-2022 Procedure Note: See Note; NOTES: [facility] [address] [place] [address] / REHABILITATION SERVICES INITIAL EVALUATION MR#: [id number] Acct: [id number] Name: GALINA LATHAM Rep #: [id number] : 1970 52 From: Getachew Dominguez DPT, OCS, CSCS Referring Dr.: Dr. Lisa Ziegler DO Status: REG R Insurance: [facility] SELF PAY INSURANCE Patient's Visit Information GALINA LATHAM is a 52 year old F referred to Physical Therapy by Dr. Lisa Ziegler DO with a diagnosis of Trochanteric bursitis L tension NEW, trap spasms. Date of Evaluation: 09/21/22 Physical Therapist: Getachew Dominguez DPT, OCS, CSCS - Visit Plan Frequency: 2x /Week Duration: 4-6 Weeks Plan: 2x/week for 4-6 for. 1. US nonthermal L trochanteric bursa. 2. rollout and stretch L ITB, TFL, piriformis, quad. 3. strength L hip to HEP. 4. monitor posture and retraction effects on intermittent NEW. Neck ROM as needed. - Subjective L hip bursitis and ITB and painful. It has been there four months. Worse on steps. 8/10 Transient. Sitting is comfortable. insidious onset. Also hurt with lifting leg to take pants off and socks off. Lifting leg to get in bed. Hurts to roll on L side. Sleeps is not interrupted. Sleeps on right side. Pain is lateral L hip. Pt was supposed to get prednisone but did not, gave muscle relaxers which have helped somewhat but cannot take before work. 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 Mostly hurts on steps at work. sitting 30 minutes and getting up can be bothersome at first. Basic ADLs are not a problem. Hobbies: TV and can do this without pain unless she lifts leg. Exercises: none. One step at home: Hurts. Gets NEW pounding back of head after sleeping. Can wake up with NEW, One time every two weeks, can last hours to days. No arm symptoms, no numbness or tingling. - Pain L hip lateral. Pain Intensity (Out of 10): 0 Pain Intensity Range: 0, 8 - Objective Walking without antalgia today, steps hurt to lead with L, otherwise needs rail. trasnfers bed and chair are I without pain today. Tender max to touch in L GT area and mod in ITB L, very tight also L ITB and hurts to stretch. + FADDIR L hip, - RAYMUNDO. AROM L hip WFL and synnetrical except IR 5 L vs 12 R. strength LE 4 hips with pain abduction L, 4- extension, 4 flexion with L pain. knees and ankles 4+ B without pain. reflexes 1/3 patella and achilles B. Sensation WNL to gross lgiht touch. UE bi and tri reflexes 1/3. Sensation UE WNL to gross light touch. UE AROM and strength 4/5 without myotomal problems. WFL ROM. Cervical AROM ext 55, rotations 65 and no pain, SB symmetrical. Limited retraction slightly. Tender minimally in subocc. Posture is FW head and extended upper cervical, protracted scap. - Balance/Special Test Scores Lower Extremity Functional Score: 51 - Goals Goal 1:: up and down steps with L without pain Goal Time Frame: 2-4 Weeks Goal 2:: hip pain with trasnitions and work 75% better and manageable Goal Time Frame: 4-6 Weeks Goal 3:: I approp HEP for posture and hip management Goal Time Frame: 4-6 Weeks Goal 4:: Sit with appropriate cervical posture without VC. Goal Time Frame: 4-6 Weeks - Rehabilitation Potential Physical Therapy Diagnosis: L trochanteric bursitis, NEW tension Rehabilitation Potential: Fair - Anticipated Interventions Patient/Client Instruction: Educate patient on: Condition, Plan of Care For the Purpose of:: To decrease pain, To increase ROM, To improve nutrient delivery to tissue, To improve muscle performance and motor function, To increase tolerance to activity/condition/position Therapeutic Exercise to Include: Strength training, Postural training, Flexibilty training, Passive ROM, Active ROM For the Purpose of:: To decrease pain, To decrease swelling/inflammation, To increase ROM, To improve nutrient delivery to tissue, To improve muscle performance and motor function, To increase t olerance to activity/condition/position Manual Therapy Techniques to Include: Mobilization, Passive ROM, Soft tissue mobilization For the Purpose of:: To decrease pain, To increase ROM, To improve nutrient delivery to tissue, To improve muscle performance and motor function Ultrasound (thermal/non thermal): Yes - nonthermal L trochanter area For the Purpose of:: To decrease pain, To decrease swelling/inflammation Thank you for the opportunity to evaluate your patient. For Medicare and Medicare HMO plans, please review the plan of care and approve it. It will need to be FAXED BACK to us at [phone] for Medicare purposes. For Medicare only, by signing this I certify the plan of care. Please let me know if there are questions or concerns regarding this plan of care. Physician Signature: Date: <Electronically signed by Getachew Dominguez DPT, OCS, CSCS> 09/21/22 0809 CC: Dr. Lisa Ziegler DO EBG Signed Lisa Ziegler DO Work Phone: Start: 09-11-2022 Plain x-ray of pelvis and lower extremity Dr. Lisa Ziegler Work Phone: Start: 09-11-2022 End: 09-12-2022 Procedure Note: See Note; NOTES: [facility] [address] [place] [address] HIP, UNI W/ Pelvis 2-3 Views MR#: [id number] Acct: [id number] Name: GALINA LATHAM Rep #: [id number] : 1970 F 52 From: Jamie Sweeney PCP: Dr. Lisa Ziegler DO Status: DEP AMB Study: HIP, UNI W/ Pelvis 2-3 Views Date of Exam: 04/24 Exam# [id number] Ordering Dr: Lisa Ziegler DO INDICATION: PAIN EXAMINATION/TECHNIQUE: X-RAY - LEFT XR Hip Unilateral with Pelvis when performed; 2-3 Views 3 VIEWS COMPARISON: None. FINDINGS: SOFT TISSUES: No soft tissue swelling or gas. No radiopaque foreign body. BONES/JOINTS: No acute fracture or subluxation.. Joint spaces are maintained. Mild osteophyte formation is noted. Preservation of the joint space.. No sclerotic or destructive changes observed. RAD/HIP, UNI W/ Pelvis 2-3 Views IMPRESSION: 1. Mild osteophyte formation from the acetabular roof bilaterally. 2. No evidence fracture, dislocation or joint space narrowing. Pelvic ring is intact. Electronically Signed: Jamie Penny MD at 23:54 EDT , CC: Dr. Lisa Ziegler DO Metal Bonding Worker: Signed Lisa Ziegler DO Work Phone: Start: 08-20-2022 End: 08-23-2022 Procedure Note: See Note; NOTES: [facility] [address] [place] [address] OFFICE VISIT Date of Service: 08/20/22 MR#: [id number] Acct: [id number] Name: GALINA LATHAM Rep #: [id number] : 1970 Provider: Dr. 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 Required: No Is patient in pain?: Yes (Right sided pain, down the leg) Allergies fluoxetine [From Prozac] Allergy (Verified 08/20/22 08:09) Diarrhea venom-honey bee [bee venom (honey bee)] Allergy (Verified 08/20/22 08:09) Anaphylaxis Penicillins Adverse Reaction (Verified 08/20/22 08:09) Vomiting Medications multivitamin 1 ea PO DAILY supplement 01/31/19 [History Confirmed 08/20/22] buspirone 30 mg tablet 30 mg PO BID 07/24/19 [History Confirmed 08/20/22] clonazepam 1 mg tablet 1 mg PO BID PRN 08/21/20 [History Confirmed 08/20/22] fenofibric acid (choline) 135 mg capsule,delayed release (Trilipix) 135 mg PO DAILY 08/21/20 [History Confirmed 08/20/22] amitriptyline 25 mg tablet 50 mg PO QHS 08/12/21 [History Confirmed 08/20/22] aripiprazole 10 mg tablet 15 mg PO DAILY 08/12/21 [History Confirmed 08/20/22] cholecalciferol (vitamin D3) 125 mcg (5,000 unit) capsule 125 mcg PO DAILY 08/12/21 [History Confirmed 08/20/22] trazodone 100 mg tablet 100 mg PO QHS 08/12/21 [History Confirmed 08/20/22] COUNTS INCLUDE 234 BEDS AT THE [facility] Medical History (Updated 08/12/21 @ 07:17 by Piedad Grande NP, TELESCOPE REPAIRER-C) Anxiety and depression Hepatomegaly History of frequent headaches History of marijuana use Hyperlipidemia Hypertension IBS (irritable bowel syndrome) Leukocytopenia Tobacco use Vitamin D deficiency Surgical History (Updated 08/12/21 @ 07:17 by Piedad Grande NP, TELESCOPE REPAIRER-C) History of carpal tunnel surgery History of dilation and curettage History of total vaginal hysterectomy (TVH) Hx laparoscopic cholecystectomy Hx of right breast biopsy Family History Mother Hypertension Father Suicide Uncle Suicide Social History (Updated 08/21/20 @ 13:[address] Eugenio Wheeler MD) Smoking Status: Heavy Smoker (>10/day) alcohol intake: never substance use type: does not use caffeine: Yes what type of physical activity do you participate in: walking seatbelt use: always do you feel safe at home: Yes additional social history: single- [employer] third shift History 0 Elective abortions Hx Para Spontaneous abortions Hx # Term Pregnancies Ectopic pregnancies Hx # Pregnancies Multiple births # of living children HPI Encounter for routine gynecological examination Details: GALINA LATHAM is a 52 year old who presents for annual exam.doing well Last PAP: hyst History of abnormal PAP: no severe Last mammogram: up to date History of abnormal mammogram: no CA Colon cancer screening: pcp Other preventative health care screenings: pcp ROS Const Constitutional: Reports as per HPI; Denies fatigue, increased appetite, poor appetite, weight gain or weight loss Cardio Card: Denies chest pain Resp Resp: Denies cough or dyspnea GI GI: Reports as per HPI; Denies abdominal pain, bloating, constipation, nausea or vomiting : Reports as per HPI and other; Denies difficulty voiding, dysuria, hematuria, nipple discharge, pelvic pain, prolapse symptoms, urinary frequency, urinary incontinence, urinary urgency, vaginal discharge, vaginal dryness, vaginal odor or vaginal pruritus Skin Skin/Breast: Denies changing lesions, breast mass, breast pain, breast skin changes or nipple discharge Psych Psych: Denies anxiety or depression Exam Const General: cooperative, healthy appearing, comfortable, no acute distress, well developed and well groomed HENOH Head: normal to inspection and normocephalic Ears: hearing grossly normal bilaterally and external ears normal Nose: external nose normal Face and sinus: normal facial exam Neck Neck: normal visual inspection, full ROM and no lymphadenopathy Thyroid: thyroid normal Chest Chest palpation inspection: normal inspection of the chest Breast inspection: normal inspection of the breasts and normal inspection of the axillae Breast palpation: normal palpation of the breasts, normal palpation of the axillae and no axillary lymphadenopathy Resp Effort Inspection: normal respiratory effort GI Inspection: normal to inspection and non-distended Palpation: soft, no hepatosplenomegaly and no guarding General: bladder normal to palpation External Female Exam: normal external appearance, normal appearance of the urethra and no lesions Urethra: normal appearance of the urethra and normal palpation Speculum Exam - Vagina: normal appearance of the vagina and normal vaginal discharge Bimanual Exam- Vagina Uterus: bladder normal to palpation Bimanual Exam- Adnexa, other: normal adnexae, no masses and non-tender Skin General: no rashes or lesions noted Neuro General: patient alert, moves all extremities and no focal motor deficits Extrem General: normal to inspection and no pedal edema Psych Appearance: grossly normal Mental Status: mental status grossly normal Affect: normal affect Speech and Movement: speech and movement normal Attitude: cooperative Coding Level of Care Code Off vis,est,prev 40-64yrs Diagnoses Encounter for routine gynecological examination Z01.419 Gynecological examination findings: abnormal findings ABSENT Assessment and Plan Assessment and Plan (1) Encounter for routine gynecological examination: Qualifiers: Gynecological examination findings: abnormal findings ABSENT Qualified Code(s): Z01.419 - Encounter for gynecological examination (general) (routine) without abnormal findings Plan Cervical cancer screening: hyst Breast cancer screening: mamm other health maintenance examination reviewed and orders [...] health maintenance exam or sooner if needed. 08/23/22 1255 <Electronically signed by Katey Elizabeth MD> Date Katey Elizabeth MD Cosigner Signature: Date (if applicable) CC: Lisa Ziegler DO Work Phone: Start: 08-20-[address] Lisa Ziegler Work Phone: Start: 08-20-2022 End: 08-20-2022 Procedure Note: See Note; NOTES: [facility] Imaging Services [address] [place] [address] SCRN MAMM (CAD)W/KAMERON BILAT MR#: [id number] Acct: [id number] Name: GALINA LATHAM Rep #: [id number] : 1970 F 52 From: Raffaele dover MD PCP: Dr. Lisa Ziegler, DO Status: [facility] Study: SCRN MAMM (CAD)W/KAMERON BILAT Date of Exam: 08/02 Exam# [id number] Ordering Dr: Piedad Grande NP TELESCOPE REPAIRER -C MAMMOGRAPHY - BILATERAL SCREENING REASON FOR EXAM: Female, 52 years old. Routine annual screening examination. PERTINENT HISTORY: Grandmother with breast cancer. Aunt with breast cancer. History of prior right needle guided breast biopsy. TECHNIQUE: Digital bilateral breast kameron (3D mammographic acquisition) in the CC and MLO projections. 2-D mediolateral oblique (MLO) and craniocaudad (CC) views of both breasts were obtained. CAD: Full Field Digital Mammography with Computer Added Detection was performed. COMPARISON: Comparison is made with prior study August 12, 2021 and August 30, 2020. FINDINGS: Breast Composition: There are scattered areas of fibroglandular density. There are no dominant masses or suspicious calcifications. A tissue clip marker is once again seen in the lateral retroareolar region of the right breast. Stable small benign-appearing bilateral axillary lymph nodes. No other significant abnormalities are identified. There has been no significant change since the prior study. BI/SCRN MAMM (CAD)W/KAMERON BILAT IMPRESSION: Stable bilateral screening mammogram. Yearly follow-up mammogram recommended. (A) ASSESSMENT CATEGORY: BIRADS Category 2: Benign. A letter regarding these results will be sent to the patient by the facility within 30 days. Approximately 10% of breast cancers are not detected by mammography. A normal mammogram should not delay biopsy of a clinically suspicious abnormality. [id number] Electronically Signed: Raffaele Galloway MD at 10:47 EDT , CC: LYN Grande; Dr. Lisa Ziegler DO Metal Bonding Worker: Signed Lisa Ziegler DO Work Phone: Start: 08-12-2021 Cytopathology procedure, preparation of smear, genital source Dr. Lisa Ziegler Work Phone: Start: 08-12-2021 Investigation of transfusion reaction Dr. Lisa Ziegler Work Phone: Start: 08-12-2021 End: 08-12-2021 Procedure Note: See Note; NOTES: [facility] 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) Allergies fluoxetine [From Prozac] Allergy (Verified 08/12/21 08:22) Diarrhea venom-honey bee [bee venom (honey bee)] Allergy (Verified 08/12/21 08:22) Anaphylaxis Penicillins Adverse Reaction (Verified 08/12/21 08:22) Vomiting Medications multivitamin 1 ea PO DAILY 01/31/19 [History Confirmed 08/12/21] buspirone 30 mg tablet 30 mg PO BID 07/24/19 [History Confirmed 08/12/21] clonazepam 1 mg tablet 1 mg PO BID PRN tablet 08/21/20 [History Confirmed 08/12/21] fenofibric acid (choline) 135 mg capsule,delayed release 135 mg PO DAILY 08/21/20 [History Confirmed 08/12/21] amitriptyline 25 mg tablet 50 mg PO QHS tab 08/12/21 [History Confirmed 08/12/21] aripiprazole 10 mg tablet 15 mg PO DAILY tab 08/12/21 [History Confirmed 08/12/21] cholecalciferol (vitamin D3) 125 mcg (5,000 unit) capsule 125 mcg PO DAILY 08/12/21 [History Confirmed 08/12/21] trazodone 100 mg tablet 100 mg PO QHS tab 08/12/21 [History Confirmed 08/12/21] Post menopausal: Yes Nurse's Note: possible yeast infection - itching, sm amt yellow discharge. used monistat 3 1 week ago, sx persist PFSH Medical History (Updated 08/12/21 @ 07:17 by Piedad Grande TELESCOPE REPAIRER, TELESCOPE REPAIRER-C) Anxiety and depression Hepatomegaly History of frequent headaches History of marijuana use Hyperlipidemia Hypertension IBS (irritable bowel syndrome) Leukocytopenia Tobacco use Vitamin D deficiency Surgical History (Updated 08/12/21 @ 07:17 by Piedad Grande TELESCOPE REPAIRER, TELESCOPE REPAIRER-C) History of carpal tunnel surgery History of dilation and curettage History of total vaginal hysterectomy (TVH) Hx laparoscopic cholecystectomy Hx of right breast biopsy Family History Mother Hypertension Father Suicide Uncle Suicide Social History (Updated 08/21/20 @ 13:[address] Eugenio Wheeler MD) Smoking Status: Heavy Smoker (>10/day) alcohol intake: never substance use type: does not use caffeine: Yes what type of physical activity do you participate in: walking seatbelt use: always do you feel safe at home: Yes additional social history: single- [employer] third shift Pregancy History 0 Elective abortions Hx Para Spontaneous abortions Hx # Term Pregnancies Ectopic pregnancies Hx # Pregnancies Multiple births # of living children HPI Encounter for routine gynecological examination Details: GALINA LATHAM is a 51 year old who presents for annual exam. Has vaginal itching X 1 week. Use monistat last week without benefit. Not currently sexually active but had new partner about 6 months ago. Last PAP: NA TVH, BS History of abnormal PAP: no Last mammogram: today History of abnormal mammogram: benign bx Colon cancer screenin Other preventative health care screenings: Ming ROS Const Constitutional: Denies fatigue, weight gain or weight loss Cardio Card: Denies chest pain Resp Resp: Denies cough or dyspnea on exertion GI GI: Denies abdominal pain, bloating, change in stool character, constipation or vomiting : Reports as per HPI, vaginal discharge and vaginal pruritus; Denies difficulty voiding, pelvic pain, urinary frequency, urinary incontinence or urinary urgency Exam Const General: cooperative, healthy appearing, no acute distress and well developed Orientation: alert, oriented to person and oriented to place HENMT Head: normal to inspection Neck Neck: normal visual inspection Thyroid: thyroid normal Lymphatic: no lymphadenopathy noted Chest Breast inspection: normal inspection of the breasts and normal inspection of the axillae Breast palpation: normal palpation of the breasts, normal palpation of the axillae and no axillary lymphadenopathy Resp Effort Inspection: normal respiratory effort GI Palpation: soft, no masses and nontender Rectal Exam: deferred External Female Exam: normal appearance of the urethra and erythema Urethra: normal appearance of the urethra and normal palpation Speculum Exam - Vagina: abnormal vaginal discharge (watery white) and erythematous Speculum Exam - Cervix: absent Bimanual Exam- Vagina Uterus: normal bimanual exam and uterus absent Bimanual Exam- Adnexa, other: normal adnexae, no masses, normal and non-tender Pelvic Support: normal Neuro General: patient alert and patient oriented x3 Psych Affect: normal affect Coding Level of Care Code Off vis,est,prev 40-64yrs Diagnoses Encounter for routine gynecological examination Z01.419 Vaginitis N76.0 Possible exposure to STD Z20.2 Assessment and Plan Assessment and Plan (1) Encounter for routine gynecological examination: (2) Vaginitis: (3) Possible exposure to STD: Plan - Piedad Grande TELESCOPE REPAIRER, TELESCOPE REPAIRER-C: Completed breast and pelvic exam Reviewed diet and exercise Pap NA SAMANTHA BV and trich, GCC and comp vaginal culture-call positives Mammogram today pending breast self exam encouraged monthly Colonoscopy 2021 RTO 1 year, prn with problems Piedad Sotos INTERNATIONAL MARKETING SPECIALIST 08/12/21 0919 <Electronically signed by Piedad Grande NP TELESCOPE REPAIRER-C> Date Piedad Grande NP TELESCOPE REPAIRER-C Cosigner Signature: Date (if applicable) CC: Lisa Ziegler DO Work Phone: Start: 08-12-[address] Lisa Ziegler Work Phone: Start: 08-12-2021 End: 08-12-2021 Procedure Note: See Note; NOTES: [facility] Imaging Services [address] [place] [id number] SCRN MAMM (CAD)W/KAMERON BILAT MR#: [id number] Acct: [id number] Name: GALINA LATHAM Rep #: [id number] : 1970 F 51 From: Raffaele dover MD PCP: Dr. Lisa Ziegler, Status: REG I Study: SCRN MAMM (CAD)W/KAMERON BILAT Date of Exam: 08/01 06/24 Exam# [id number] Ordering Dr: Piedad Grande NP TELESCOPE REPAIRER -C MAMMOGRAPHY - BILATERAL SCREENING REASON FOR EXAM: Female, 51 years old. Routine annual screening examination. PERTINENT HISTORY: Grandmother with breast cancer. Aunt with breast cancer. Prior right ultrasound-guided breast biopsy. TECHNIQUE: Digital bilateral breast kameron (3D mammographic acquisition) in the CC and MLO projections. 2-D mediolateral oblique (MLO) and craniocaudad (CC) views of both breasts were obtained. CAD: Full Field Digital Mammography with Computer Added Detection was performed. COMPARISON: Comparison is made with prior study dated 08/08/2020 and 08/30/2020. FINDINGS: Breast Composition: There are scattered areas of fibroglandular density. There are no dominant masses or suspicious calcifications. A tissue clip marker is seen within the small nodular density in the retroareolar region of the right breast. The nodule has decreased in size and presently measures approximately 2 mm. No other significant abnormalities are identified. BI/SCRN MAMM (CAD)W/KAMERON BILAT IMPRESSION: Status post ultrasound-guided right breast biopsy with interval decrease in size of the previously seen 7 mm nodule. Yearly follow-up mammogram recommended. (A) ASSESSMENT CATEGORY: BIRADS Category 2: Benign. A letter regarding these results will be sent to the patient by the facility within 30 days. Approximately 10% of breast cancers are not detected by mammography. A normal mammogram should not delay biopsy of a clinically suspicious abnormality. [id number] Electronically Signed: Raffaele Galloway MD at 8:48 EDT Reading Location ID and State: [address] [place] [address] , Service support , CC: LYN Grande; Dr. Lisa Ziegler DO Metal Bonding Worker: Signed Lisa Ziegler DO Work Phone: Start: 06-16-2021 End: 06-16-2021 Procedure Note: See Note; NOTES: [facility] [place] [address] OFFICE VISIT Date of Service: 06/16/21 MR#: [id number] Acct: [id number] Name: GALINA LATHAM Rep #: [id number] : 1970 Provider: MARIA L ragland Age/Sex: 51/F Location: [facility] Status: Signed Intake Vital Signs 06/16/21 06:47 Height 5 ft 7 in Weight: 209 lb BMI 32.7 BP 132/74 H Blood Pressure Location Lt brachial Position Sitting Respiration 18 Pulse 99 Pulse Source Monitor Temp 97.2 F L Temp Source Temporal Pulse Oximetry (%) 98 Oxygen Delivery Method room air Intake Visit Reasons: possible bronchitis Chief Complaint: R Breast Birads IV Allergies fluoxetine [From Prozac] Allergy (Verified 08/21/20 13:31) Diarrhea venom-honey bee [bee venom (honey bee)] Allergy (Verified 08/21/20 13:31) Anaphylaxis Penicillins Adverse Reaction (Verified 08/21/20 13:31) Vomiting PFSH Medical History (Updated 06/16/21 @ 07:04 by Lalo LISA, PA) Abnormal mammogram of right breast Abnormal ultrasound of breast Acute back pain Acute bronchitis, unspecified Anxiety and depression Encounter for screening for COVID-19 Hepatomegaly History of frequent headaches History of marijuana use Hyperlipidemia Hypertension IBS (irritable bowel syndrome) Leukocytopenia Ovarian cyst Tobacco use Vitamin D deficiency Surgical History Encounter for Essure implantation History of carpal tunnel surgery History of dilation and curettage History of total vaginal hysterectomy (TVH) Hx laparoscopic cholecystectomy Hx of right breast biopsy Family History Mother Hypertension Father Suicide Uncle Suicide Social History (Updated 08/21/20 @ 13:[address] Eugenio Wheeler MD) Smoking Status: Heavy Smoker (>10/day) alcohol intake: never substance use type: does not use caffeine: Yes what type of physical activity do you participate in: walking seatbelt use: always do you feel safe at home: Yes additional social history: single- [employer] third shift HPI HPI Chief Complaint: R Breast Birads IV Details: GALINA LATHAM, is a 51 F who presents to the office today for 10 day h/o cough, nasal congestion, new. COVID19 vaccine utd. No COVID19 exposures. Mucinex some benefit. Supine makes worse. Smoker. No other c/o at this time. ROS Const Constitutional: No other (as above) Exam Const General: cooperative, healthy appearing, comfortable and no acute distress Nutritional Appearance: well nourished Orientation: alert, awake and oriented x3 [facility] Head: normal to inspection Ears: hearing grossly normal bilaterally, external ears normal, TM's normal bilaterally and EAC's normal Nose: external nose normal, nares normal, septum normal and no nasal discharge Face and sinus: normal facial exam, sinuses nontender and face symmetric Mouth: oral mucosae normal, lip normal, tongue normal and oropharynx normal Throat: posterior oropharynx normal, tonsils normal, uvula midline and no postnasal drainage Eyes General: appearance normal, both eyes and all related structures Neck Neck: normal visual inspection, full ROM, no lymphadenopathy, no meningeal signs and supple Neck mass: No Thyroid: thyroid normal Lymphatic: no lymphadenopathy noted Chest Chest palpation inspection: normal inspection of the chest Resp Effort Inspection: normal respiratory effort, able to speak in complete sentences, symmetric chest movement and cough Quality of cough: wet (nonproductive in office today) Auscultation: Bilateral: Clear to Auscultation Cardio Palpation: normal PMI Rate: regular rate Rhythm: regular rhythm Heart Sounds: S1 normal, S2 normal, no gallops, no murmurs and no rubs Pulses: radial pulses present GI Palpation: soft and nontender Skin General: no rashes or lesions noted Neuro General: patient alert, patient awake, patient oriented x3 and gait normal Cognition: normal cognition Speech: speech normal Gait: normal gait Motor: muscle tone normal throughout Sensory Exam: no sensory deficits noted Psych Appearance: grossly normal Mental Status: mental status grossly normal Mood: congruent mood Affect: normal affect Speech and Movement: speech and movement normal Attitude: cooperative Thought Process: normal Thought Content: normal Judgment: judgment good Coding Level of Care Code Off vis,est,level 3 Diagnoses Acute bronchitis, unspecified J20.9 Encounter for screening for COVID-19 Z11.52 Assessment and Plan Assessment and Plan (1) Acute bronchitis, unspecified: Status: Acute (2) Encounter for screening for COVID-19: Status: Acute Plan - Lalo LISA PA: Azithromycin as prescribed today. Stop smoking! POC COVID-19 screening in office today. Copy of lab results offered. Supportive measures as instructed today. Follow-up with PCP in 5 to 7 days should symptoms not improve, ED sooner should symptoms worsen or any other concerns develop. Patient states acknowledging understanding all the above. This note was generated with [employer]ation software. It may contain incorrect words, spelling, and punctuation that were not noted in checking the note before signing. Plan Details Other Medications: New: azithromycin 2 tablets today, then 1 tablet daily on days 2 through 5 250 mg PO QDAY 6 tabs 0RF Other Orders: Orders: POC Rapid SARS Antigen Today 06/16/21 0706 <Electronically signed by Lalo LISA> Date Lalo LISA Cosigner Signature: Date (if applicable) CC: Lisa Ziegler DO Work Phone: Start: 01-23-2021 End: 01-23-2021 Comments: See Note; NOTES: [facility] [address] [place] [address]. [address] [place] [address] / REEVALUATION / MEDICARE RECERTIFICATION PHYSICAL THERAPY MR#: [id number] Acct: [id number] Name: GALINA LATHAM Rep #: [id number] : 1970 50 From: Getachew Domignuez DPT, OCS, CSCS Referring Dr.: Dr. Lisa Ziegler DO Status:REG RCR Insurance: [employer] [id number] Lisa Ziegler DO, It has been my pleasure to treat GALINA LATHAM over the last 5 visits for RIGHT SHOULDER PAIN,RIGHT IMPINGEMENT SYNDROME,RIGHT SHOULDER TENDONITIS. Please see the progress note below for an update on the physical therapy plan of care! Subjective: Doing pretty good but still trouble going backward. pain 0/10 unless reaching BW and then 5/10 transiently. Other activites are pretty normal. Sleep is OK. Work going OK. Objective/Function: Full aROM except IR, still painful and just past PSIS or 50 degrees at 90 abd. Strength rotations and elevations without pain today, only pain with end range IR effecting dressing mostly. Plan Plan: f/u two weeks to check IR and d/c if better. Balance/Gait/Functional tests - Balance/Special Test Scores Quick DASH Score: 15.9075 Goals Goal 1:: Patient to be I with HEP Goal Time Frame: 4-6 Weeks Goal Progress: Goal Met Goal 2:: Patient to decrease shoulder pain by 50% or > to improve function Goal Time Frame: 4-6 Weeks Goal Progress: Goal Met Goal 3:: Patient to increase strength RTC and deltoid 4/5 to improve function and job demands Goal Time Frame: 4-6 Weeks Goal Progress: Goal Met Goal 4:: Patient be able to perform job demands and ADL's without pain with ROM symmetrical left to right Goal Time Frame: 4-6 Weeks Goal Progress: Goal Met Goal 5:: Patient to improve quick dash by 5 points or > to improve function. Goal Time Frame: 4-6 Weeks Goal Progress: Goal Met Goal 6:: Hand behind her to put on jacket without hesitation or pain. Goal Time Frame: 2-4 Weeks Goal Progress: NEW GOAL Anticipated Interventions Patient/Client Instruction: Educate patient on: Condition, Plan of Care For the Purpose of:: To decrease pain, To increase ROM, To improve muscle performance and motor function, To improve ability to perform ADL's, To increase tolerance to activity/condition/position , To improve ability of physical actions for home/community/work/leisure , To improve gait and locomotor functions, To increase flexibility/ROM, To reduce risk of recurrence, To improve ability to perform tasks related to life management Therapeutic Exercise to Include: Strength training, Postural training, Passive ROM, Active ROM For the Purpose of:: To decrease pain, To increase ROM, To improve muscle performance and motor function, To improve ability of physical actions for home/community/work/leisure , To improve health of tissue, To decrease soft tissue restriction, To increase flexibility/ROM, To reduce risk of recurrence, To prevent re-injury, To improve ability to perform tasks related to life management TENS: Yes IF ES: Yes Thermo therapy (hot pack): Yes Ultrasound (thermal/non thermal): Yes For the Purpose of:: To decrease pain, To increase ROM, To improve health of tissue, To decrease soft tissue restriction, To increase flexibility/ROM Please do not hesitate to contact me at [phone] by phone or if you have questions or concerns regarding this new plan of care! Sincerely, Getachew Dominguez, DPT, OCS, CSCS <Electronically signed by Getachew RICOT, OCS, CSCS> 01/23/21 1342 CC: Dr. Lisa Ziegler DO EBG Signed For Medicare only, by signing this I certify the plan of care. _ Physicians Signature Date Lisa Ziegler DO Work Phone: Start: 12-09-2020 End: 12-10-2020 Comments: See Note; NOTES: [facility] [address] [place] [address]. [address] [place] [address] / REHABILITATION SERVICES INITIAL EVALUATION MR#: [id number] Acct: [id number] Name: GALINA LATHAM Rep #: [id number] : 1970 50 From: Ada Falcon PT. T, OCS Referring Dr.: Dr. Lisa Ziegler DO Status: REG RCR Insurance: [employer] [id number] SELF PAY INSURANCE Patient's Visit Information GALINA LATHAM is a 50 year old F referred to Physical Therapy by Dr. Lisa Ziegler DO with a diagnosis of RIGHT SHOULDER PAIN,RIGHT IMPINGEMENT SYNDROME,RIGHT SHOULDER TENDONITIS. Date of Evaluation: 12/09/20 Physical Therapist: Kirk Herndon PT, Cert MDT, OCS - Visit Plan Frequency: 1-2x /Week Duration: 4 Weeks Plan: PT INTERVENTIONS RTC/POSTURAL EX'S MODALTIES AND FUNCTIONAL STRENGTHENING - Subjective This 50 y/o female presents to physical therapy with right shoulder pain for one month. Patient possibly injury shoulder repetitive at work. Pain located right anterior shoulder described as ache occasional sharp pain. Seen DR prescribed prednisone recommended MD. 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 Alleviating factors rest, aleve. Denies paresthesia/tingling. Pain affects sleeping. Patient pain affects QOL function and job demnads. SOCIAL: single. VOCATION: [employer] [place] - Pain Right Shoulder Pain Intensity (Out of 10): 2 Pain Intensity Range: 10 - Objective POSTURE: mild forward. NUERO: denies paresthesia/tingling ,reflexes L3-4,L4-5,L5-S1. PALPATION: tender bicep long head ,subscapulrus. AROM: shoulder flexion 150 ,abduction 150 degrees with pain at ER an OP,ER 90 degrees ,IR L5. MMT: infraspinatous 4/5,subscapularis 4/5 mild pain supraspinatus 4-/5,deltoid 4-/5 deltoid. middle traps 4-/5 ,LT 3+/5 - Special Tests R Shoulder External Rotation Lag Test - RC Tear: Negative R Shoulder Lift Off Test - Subscapular Tear: Negative R Shoulder Drop Sign - IS Test: Negative R Shoulder Empty Can - SS: Positive R Shoulder Belly Press - SupScap: Negative R Shoulder Neer - Impingement: Positive R Shoulder Wong Eyad - Impingement: Positive R Shoulder Speeds Test - Labrum/Biceps: Positive - Balance/Special Test Scores Quick DASH Score: 25.0000 - Goals Goal 1:: Patient to be I with HEP Goal Time Frame: 4-6 Weeks Goal 2:: Patient to decrease shoulder pain by 50% or > to improve function Goal Time Frame: 4-6 Weeks Goal 3:: Patient to increase strength RTC and deltoid 4/5 to improve function and job demands Goal Time Frame: 4-6 Weeks Goal 4:: Patient be able to perform job demands and ADL's without pain with ROM symmetrical left to right Goal Time Frame: 4-6 Weeks Goal 5:: Patient to improve quick dash by 5 points or > to improve function. Goal Time Frame: 4-6 Weeks - Rehabilitation Potential Physical Therapy Diagnosis: This patient has right shoulder pain possible tendonitis bicipital, and subscapularis tendonitis due to patient job demands along with MMT and movements that affect ADLS reaching behind back thus benefit from skilled PT Rehabilitation Potential: Good - Anticipated Interventions Patient/Client Instruction: Educate patient on: Condition, Plan of Care For the Purpose of:: To decrease pain, To increase ROM, To improve muscle performance and motor function, To improve ability to perform ADL's, To increase tolerance to activity/condition/position , To improve ability of physical actions for home/community/work/leisure , To improve gait and locomotor functions, To increase flexibility/ROM, To reduce risk of recurrence, To improve ability to perform tasks related to life management Therapeutic Exercise to Include: Strength training, Postural training, Passive ROM, Active ROM For the Purpose of:: To decrease pain, To increase ROM, To improve muscle performance and motor function, To improve ability of physical actions for home/community/work/leisure , To improve health of tissue, To decrease soft tissue restriction, To increase flexibility/ROM, To reduce risk of recurrence, To prevent re-injury, To improve ability to perform tasks related to life management TENS: Yes IF ES: Yes Thermo therapy (hot pack): Yes Ultrasound (thermal/non thermal): Yes For the Purpose of:: To decrease pain, To increase ROM, To improve health of tissue, To decrease soft tissue restriction, To increase flexibility/ROM Thank you for the opportunity to evaluate your patient. For Medicare and Medicare HMO plans, please review the plan of care and approve it. It will need to be FAXED BACK to us at [phone] for Medicare purposes. For Medicare only, by signing this I certify the plan of care. Please let me know if there are questions or concerns regarding this plan of care. Physician Signature: Date: <Electronically signed by Kirk Herndon PT, Cert. T, OCS> 12/10/20 1342 CC: Dr. Lisa Ziegler DO ALEKSEY Signed Lisa Ziegler DO Work Phone: Start: 08-30-2020 End: 08-30-2020 Comments: See Note; NOTES: [facility] Imaging Services [address] [place] [address] Breast Limited Unilateral MR#: [id number] Acct: [id number] Name: GALINA LATHAM Rep #: [id number] : 1970 F 50 From: Raffaele dover MD PCP: Dr. Lisa Ziegler DO Status: REG CLI Study: Breast Limited Unilateral Date of Exam: Exam# [id number] Ordering Dr: Eugenio Wheeler MD STUDY: ULTRASOUND BREAST - RIGHT REASON FOR EXAM: Female, 50 years old. Post biopsy examination. TECHNIQUE: Axial and longitudinal images of the RIGHT breast were performed with a high resolution ultrasound transducer. # OF IMAGES: 17 COMPARISON: Comparison is made with prior sonogram dated 08/16/2020 and prior mammogram done earlier today. FINDINGS: RIGHT Breast: There is a 6 mm x 7 mm x 3 mm solid/cystic nodule at the 9 o''clock position of the breast at 2 cm from the nipple. This has decreased in size. A tissue clip marker is seen adjacent to this lesion. US/Breast Limited Unilateral IMPRESSION: Slight decrease in size of the previously seen solid/cystic nodule at the 9 o''clock position of the breast at 2 sinusitis of the nipple. A tissue clip marker from prior biopsy is seen adjacent to this lesion. ASSESSMENT CATEGORY: BIRADS Category 2: Benign. A letter regarding these results will be sent to the patient by the facility within 30 days. Electronically Signed: Raffaele Galloway MD at 13:37 EDT , Service support , CC: Dr. Lisa Ziegler DO; Dr. Eugenio Wheeler MD Metal Bonding Worker: Signed Eugenio Wheeler MD Work Phone: Start: 08-30-2020 End: 09-02-2020 Comments: See Note; NOTES: [facility] Imaging Services [address] [place] [address] DIAG MAMM W/CAD, UNILAT MR#: [id number] Acct: [id number] Name: GALINA LATHAM Rep #: [id number] : 1970 F 50 From: Raffaele dover MD PCP: Dr. Lisa Ziegler, DO Status: [facility] Study: DIAG MAMM W/CAD, UNILAT Date of Exam: 08/30/20 Exam# [id number] Ordering Dr: Eugenio Wheeler MD MAMMOGRAPHY - UNILATERAL DIAGNOSTIC: RIGHT BREAST REASON FOR EXAM: Female, 50 years old. Recent ultrasound-guided biopsy of the anterior superior aspect of the left breast. PERTINENT HISTORY: Grandmother with breast cancer. Aunt with breast cancer TECHNIQUE: Digital unilateral breast kameron (3D mammographic acquisition) in the CC and MLO projections. 2-D mediolateral oblique (MLO) and craniocaudad (CC) views of both breasts were obtained. CAD: Full Field Digital Mammography with Computer Added Detection was performed. COMPARISON: Comparison is made with prior study dated 08/08/2020. FINDINGS: Breast Composition: There are scattered areas of fibroglandular density. There are no dominant masses or suspicious calcifications. A tissue clip marker is seen in the slightly upper lateral anterior aspect of the right breast. The nodular density has decreased in size as compared to prior study. Correlation with ultrasound is recommended. No other significant abnormalities are identified. BI/DIAG MAMM W/CAD, UNILAT IMPRESSION: Status post ultrasound-guided breast biopsy of the nodular density in the slightly upper lateral aspect of the anterior right breast. Correlation with a follow-up sonogram is recommended for further evaluation.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 LAVH Plan After discussing the patient's diagnosis and treatment plan options, patient wishes to proceed with surgical management. I have discussed with the patient the risks, benefits, and alternatives of the procedure which include but are not limited to risks of anesthesia, bleeding, infection, possible damage to bowel, bladder, or surrounding vasculature which could lead to additional surgery to evaluate any complications. Patient agrees to procedure and wishes to proceed. ACOG/uptodate references given for additional information regarding procedure. Coding Level of Care Code No Charge Diagnoses PMDD (premenstrual dysphoric disorder) F32.81 Dysmenorrhea N94.6 02/01/192 <Electronically signed by Katey Elizabeth MD> Date Katey Elizabeth MD [facility] Signature: Date (if applicable) CC: Lisa Ziegler DO; Katey Elizabeth MD Signed Lisa Ziegler Start: 11-28-2018 End: 11-29-2018 Pelvic (Non ) Comments: See Note; NOTES: [facility] Imaging Services [address] [place] [address] Pelvic (Non ) MR#: [id number] Acct: [id number] Name: GALINA LATHAM Rep #: [id number] : 1970 F 48 From: Akil Sy MD PCP: Lisa Ziegler DO Status: REG CLI Study: Pelvic (Non ) Date of Exam: 11/28/18 Exam# [id number] Ordering Dr: Piedad Grande TELESCOPE REPAIRERAddison STUDY: ULTRASOUND OF THE FEMALE PELVIS - COMPLETE REASON FOR EXAM: Female, 48 years old. Dysmenorrhea. LMP: 11/16/2018. TECHNIQUE: Transabdominal and transvaginal. TECHNICAL QUALITY: Adequate. COMPARISON: 12/11/2016. FINDINGS: The uterus is anteverted and is in a midline position. The uterus measures 8.0 x 4.4 x 3.5 cm. Nabothian cyst in the uterine cervix. The endometrium measures 8.0 mm in thickness, and is heterogeneous in echogenicity. There is no demonstrated endometrial mass. There is no demonstrated myometrial mass. I.U.D. - The patient does not have an I.U.D. The right ovary is visualized. The right ovary measures 2.7 x 1.8 x 1.1 cm. There is a small right ovarian cyst measuring 1.5 x 1.4 x 1.4 cm. There is no visualized right adnexal mass or complex lesion. There is normal arterial and normal venous vascularity. The left ovary is visualized. The left ovary measures 4.5 x 1.8 x 2.2 cm. There is a small cyst in the left ovary or left adnexa measuring 1.3 x 1.0 x 1.1 cm.There is normal arterial and normal venous vascularity. There is no fluid in the cul-de-sac. The pre void volume of the bladder was 435 ml. US/Pelvic (Non ) IMPRESSION: 1. Nabothian cyst in the uterine cervix. 2. Small left ovarian or adnexal cyst measuring 1.3 x 1.0 x 1.1 cm. I favor follicular cyst of the left ovary. Follow-up ultrasound in 1 month will help clarify. 3. Small follicular cyst in right ovary measuring 1.5 x 1.4 x 1.4 cm. 4. Normal ultrasound of the uterus. 5. Negative for free fluid in the cul-de-sac. Electronically Signed: Akil Sy MD at 11:22 EDT , Service support , CC: JUSTINE Grande; Lisa Ziegler DO Metal Bonding Worker: Signed Lisa Ziegler Work Phone: Start: 11-28-2018 End: 11-29-2018 Transvaginal Non- Comments: See Note; NOTES: [facility] Imaging Services [address] [place] [address] Transvaginal Non- MR#: [id number] Acct: [id number] Name: GALINA LATHAM Rep #: [id number] : 1970 F 48 From: Akil Sy MD PCP: Lisa Ziegler DO Status: REG CLI Study: Transvaginal Non- Date of Exam: 11/28/18 Exam# [id number] Ordering Dr: Piedad Grande TELESCOPE REPAIRER-C STUDY: ULTRASOUND OF THE FEMALE PELVIS - COMPLETE REASON FOR EXAM: Female, 48 years old. Dysmenorrhea. LMP: 11/16/2018. TECHNIQUE: Transabdominal and transvaginal. TECHNICAL QUALITY: Adequate. COMPARISON: 12/11/2016. FINDINGS: The uterus is anteverted and is in a midline position. The uterus measures 8.0 x 4.4 x 3.5 cm. Nabothian cyst in the uterine cervix. The endometrium measures 8.0 mm in thickness, and is heterogeneous in echogenicity. There is no demonstrated endometrial mass. There is no demonstrated myometrial mass. I.U.D. - The patient does not have an I.U.D. The right ovary is visualized. The right ovary measures 2.7 x 1.8 x 1.1 cm. There is a small right ovarian cyst measuring 1.5 x 1.4 x 1.4 cm. There is no visualized right adnexal mass or complex lesion. There is normal arterial and normal venous vascularity. The left ovary is visualized. The left ovary measures 4.5 x 1.8 x 2.2 cm. There is a small cyst in the left ovary or left adnexa measuring 1.3 x 1.0 x 1.1 cm.There is normal arterial and normal venous vascularity. There is no fluid in the cul-de-sac. The pre void volume of the bladder was 435 ml. US/Transvaginal Non- IMPRESSION: 1. Nabothian cyst in the uterine cervix. 2. Small left ovarian or adnexal cyst measuring 1.3 x 1.0 x 1.1 cm. I favor follicular cyst of the left ovary. Follow-up ultrasound in 1 month will help clarify. 3. Small follicular cyst in right ovary measuring 1.5 x 1.4 x 1.4 cm. 4. Normal ultrasound of the uterus. 5. Negative for free fluid in the cul-de-sac. Electronically Signed: Akil Sy MD at 11:22 EDT , Service support , CC: JUSTINE Grande; Lisa Ziegler DO Metal Bonding Worker: Signed Lisa Ziegler Work Phone: Start: 11-16-2018 End: 11-16-2018 Offset Machine Operator Office Visit Report Comments: See Note; NOTES: [facility] [address] [place] [address] OFFICE VISIT Date of Service: 11/16/18 MR#: [id number] Acct: [id number] Name: GALINA LATHAM Rep #: [id number] : 1970 Provider: JUSTINE Grande Age/Sex: 48/F Location: [facility] Status: Signed Intake Vital Signs11/16/18 Body Mass Index (BMI) 31.3 11/16/18 Height 5 ft 7 in 11/16/18 Weight: 207 lb 6 oz 11/16/18 Body Mass Index (BMI) 32.4 11/16/18 Blood Pressure 132/90 H Intake Visit Reasons: PAINFUL PERIODS Veneer Splicer Required: No Is patient in pain?: Yes (during menses) Pain scale (1-10): 10 Allergies fluoxetine [From Prozac] Allergy (Verified 11/16/18 08:50) Diarrhea venom-honey bee [bee venom (honey bee)] Allergy (Verified 11/16/18 08:50) Anaphylaxis Penicillins Adverse Reaction (Verified 11/16/18 08:50) Vomiting Medications Buspirone HCl [Buspar] 30 mg PO BID 07/28/15 [History Confirmed 11/16/18] Fenofibric Acid (Choline) [Trilipix] 135 mg PO DAILY 07/28/15 [History Confirmed 11/16/18] traZODone [Desyrel] 200 mg PO QHS 07/28/15 [History Confirmed 11/16/18] diazepam 10 mg tablet 20 mg PO TID PRN PRN tab 11/16/18 [History Confirmed 11/16/18] naproxen 500 mg tablet 500 mg PO Q12H #30 tab 11/16/18 [Rx Confirmed 11/16/18] Is last menstrual period known: Yes Last Menstral Period: 11/16/18 Post menopausal: No Patient : No : No COUNTS INCLUDE [facility] BEDS AT [facility] Medical History Acute back pain (Acute) Anxiety [...] Diabetes Father Suicide Uncle Suicide Social History (Updated 11/16/18 @ 09:56 by LYN Bowers) Smoking Status: Current every day smoker alcohol intake: never substance use type: does not use caffeine: Yes what type of physical activity do you participate in: none seatbelt use: always do you feel safe at home: Yes additional social history: single- [employer] third shift HPI PAINFUL PERIODS : Details: GALINA LATHAM is a 48 year old who presents for persistent and worsening painful menses. States regular every 21-28 days, last 7 days but missing work do to pain of menses each month. OTC tylenol/midol not helpful. Not sexually active in 4 years. Denies STD concerns. 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 Elizabeth. She is missing work one day most months and becoming problematic for her job([employer]). They have suggested intermittent FMLA. Grav ). Essure >5 yr ago. Full menses today Female Reproductive History Last Menstral Period: 11/16/18 Pregancy History 0 Elective abortions Hx Para Spontaneous abortions ROS Const Constitutional: Reports system reviewed and no additional complaints, except as docu Eyes Eyes: Reports system reviewed and no additional complaints, except as docu GI GI: Denies abdominal pain or change in bowel habits : Reports as per HPI Exam Const General: cooperative, no acute distress Nutritional Appearance: obese Orientation: oriented x3 HENMT Head: normal to inspection Eyes General: appearance normal, both eyes and all related structures Neck Neck: normal visual inspection Resp Effort AND Inspection: normal respiratory effort Assessment AND Plan Problems 1. Dysmenorrhea N94.6 Plan Discussed causes of dysmenorrhea and intervention. She states she will not do IUD and is a smoker and will defer estrogen containing medications Proceed with ultrasound Rx naproxen Call patient with US results and discuss further management at that time 15 min FTF counseling with patient. Orders Orders: Medications New: Coding Level of Care Code Off vis,est,level 3 Diagnoses Dysmenorrhea N94.6 11/16/18 0956 <Electronically signed by Piedad NICHOLSON> Date Piedad NICHOLSON Cosigner Signature: Date (if applicable) CC: Lisa Ziegler Start: 08-16-2018 End: 08-16-2018 12 lead ECG Comments: See Note; NOTES: [facility] Cardiovascular Services [address] [place] [address] 12 Lead EKG 08/14/18 1440 MR#: [id number] Acct: [id number] Name: GALINA LATHAM Rep #: [id number] : 1970 48 From: Edd Saxena MD Attending Dr: Status: DEP ER Ordering Dr: Jean-Pierre Poole MD Date: 08/14/18 Location: ED Sex: F C Admitted: Test Reason : HEADACHE Blood Pressure : / mmHG Vent. Rate : 076 BPM Atrial Rate : 076 BPM P-R Int : 184 ms QRS Dur : 082 ms QT Int : 376 ms P-R-T Axes : 042 007 051 degrees QTc Int : 423 ms Normal sinus rhythm Normal ECG Confirmed by GOPI KAPLAN, EDD ([id number]), graphics editor MARQUIS STOREY ([id number]) on 08/16/2018 3:58:34 PM Referred By: CHET Confirmed By:EDD SAXENA MD 08/16/18 1558 Date Edd Saxena MD CC: MD Jas Poole; Lisa Ziegler DO Signed Lisa Ziegler Start: 08-14-2018 End: 08-14-2018 Emergency Department Summary Comments: See Note; NOTES: [facility] Medical Records Department [address] [place] [address] Emergency Department Summary 08/14/18 1504 MR#: [id number] Acct: [id number] Name: GALINA LATHAM Rep #: [id number] : 1970 48 From: Jean-Pierre Poole MD PCP: Lisa Ziegler DO Status: REG ER ADDENDUM by Ricky Nolan on 08/14/18 at 1627 Patient signed out to me to follow-up on imaging studies. Patient symptoms resolved. 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 There is no aneurysm. Discussed with patient findings and written down for patient follow-up with her PCP. All questions were answered. 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 no family history, she has no fever cough chest or abdominal pain bowel bladder habits have been normal She does have a warty smell to her and she indicates she has of home wood stove but no one else is sick she is never had carbon monoxide exposure poisoning, indicates the head pain is simply a constant pounding sensation She is familiar with carbon monoxide poisoning as her father of that a few years ago Physical Examination: [] Vital signs are within normal limits she is afebrile no distress General, no distress resting comfortably HEENT is generally unremarkable The neck is supple no adenopathy Cardiovascular, regular rate and rhythm Lungs, clear bilateral Abdomen, soft nontender Extremities, no clubbing cyanosis or edema Neurologic, awake alert answering questions appropriately moving all 4 extremities NIH 0 cranial nerves motor sensory gait normal Test Results: [] Emergency Department Course and Treatment: [] Unremarkable physical and neurologic exam and her complaints and the generalized nature and the headaches CTA CTA neck screening labs IV fluids car monoxide level The patient screening labs are generally unremarkable, her UA is pending, as is the CTA head and neck, her carbon monoxide level came back around 6 she does smoke a pack a day I have explained to her that it is unclear if the carbon oxide is due to the use of her home kitchen woodstove or from the smoking, on reevaluation she is feeling much better headache is practically resolved she is walking around the emergency department no distress she wants to go home. This time of asked the afternoon physicians check the CTA results of his lungs are unremarkable I feel it is safe to discharge her home she understands to have her carbon monoxide level in her home checked by the fire department or by obtaining a home car monoxide sensor if is elevated she should discontinue use of the wood burning stove she otherwise follow with her family physicians for further management of not feeling well and the headache Treatment Plan: [] She has been placed on 100% nonrebreather and will keep that on for at least 2 hours but she actually is feeling better wants to go home, and is not sure she can wait the full 2 hours Disposition: [] Discharge home pending results of CTA head neck Impression: [] Headache resolved, carbon monoxide level 6.0 This note was generated with [employer] dictation software. It may contain incorrect words, spelling, and punctuation that were not noted in review of the chart prior to signing ED Disposition - Plan for ED Patient: Instructions: Carbon Monoxide Poisoning, ED CO Poisoning, ED Cephalgia Unspecified Referrals: Lisa Ziegler, DO [Primary Care Provider] - What to do if you have Problems For any increased pain, shortness of breath, bleeding, nausea or vomiting, chest pain, or any unexpected problems, contact your Primary Care Provider. Call [facility] ([phone]) or report to the closest Emergency Room. Call 911 if necessary. 08/14/18 1605 <Electronically signed by Jean-Pierre Poole MD> Date Jean-Pierre Poole MD Cosigner Signature (If Indicated): Date CC: Lisa Mccurdy Start: 08-14-2018 End: 08-14-2018 Discharge Instruction Comments: See Note; NOTES: [facility] Medical Records Department [address] [place] [address] Discharge Instruction 08/14/18 1558 MR#: [id number] Acct: [id number] Name: GALINA LATHAM Rep #: [id number] : 1970 48 From: Jean-Pierre Poole MD PCP: Lisa Ziegler DO Status: REG ER ED Disposition - Plan for ED Patient: Instructions: ED Cephalgia Unspecified, Carbon Monoxide Poisoning, ED CO Poisoning Referrals: Lisa Ziegler DO [Primary Care Provider] - What to do if you have Problems For any increased pain, shortness of breath, bleeding, nausea or vomiting, chest pain, or any unexpected problems, contact your Primary Care Provider. Call [facility] ([phone]) or report to the closest Emergency Room. Call 911 if necessary. 08/14/18 1559 <Electronically signed by Jean-Pierre Poole MD> Date Jean-Pierre Poole MD Cosigner Signature (If Indicated): Date CC: Lisa Mccurdy Start: 08-14-2018 End: 08-14-2018 Chest 1 View (Portable) Comments: See Note; NOTES: [facility] Imaging Services [address] [place] [address] Chest 1 View (Portable) MR#: [id number] Acct: [id number] Name: GALINA LATHAM Rep #: [id number] : 1970 F 48 From: Marquis Rutherford DO PCP: Lisa Ziegler DO Status: REG ER Study: Chest 1 View (Portable) Date of Exam: 08/14/18 Exam# [id number] Ordering Dr: Jean-Pierre Poole MD STUDY: X-RAY CHEST REASON FOR EXAM: Female, 48 years old. Shortness of breath TECHNIQUE: Single frontal view COMPARISON: None. FINDINGS: The lungs are clear and expanded. There is no demonstrated pleural abnormality. Normal size heart. Normal mediastinum and jessica. Normal visualized pulmonary arteries. Normal visualized aortic arch and descending thoracic aorta. Degenerative changes of the thoracic spine. Normal visualized ribs, clavicles, and shoulders. There is no demonstrated abnormality of the visualized soft tissue structures of the upper abdomen. RAD/Chest 1 View (Portable) IMPRESSION: Normal x-ray examination of the chest. Electronically Signed: Marquis Rutherford DO at 15:18 EDT Tel [phone], Service support , CC: MD Jas Poole; Lisa Ziegler DO Metal Bonding Worker: Signed Lisa Ziegler Start: 08-14-2018 End: 08-14-2018 CTA Head W/WO Contrast Comments: See Note; NOTES: [facility] Imaging Services [address] [place] [address] CTA Head W/WO Contrast MR#: [id number] Acct: [id number] Name: GALINA LATHAM Rep #: [id number] : 1970 F 48 From: Marquis Rutherford DO PCP: Lisa Ziegler DO Status: REG ER Study: CTA Head W/WO Contrast Date of Exam: 08/14/18 Exam# [id number] Ordering Dr: Jean-Pierre Poole MD STUDY: CTA OF THE BRAIN REASON FOR EXAM: Female, 48 years old. Stabbing headache RADIATION DOSAGE (If Supplied By Facility): CTDIvol = ( 28.84 ) mGy, DLP = ( 1496.06 ) mGycm TECHNIQUE: CT angiography was performed with a multi-detector CT scanner. Data acquisition was obtained from the skull base through the vertex following intravenous administration of 100 IV Isovue 370. MIP images were reconstructed from the axial data set. Post-processing of the angiographic images was performed, with multiplanar reformation and 3D reconstruction. Individualized dose optimization techniques were used for this CT. COMPARISON: None. FINDINGS: Normal bilateral petrous carotid arteries. Normal right cavernous carotid artery with a normal supraclinoid bifurcation. Normal left cavernous carotid artery with a normal supraclinoid bifurcation. Normal right A1 segments of the anterior cerebral artery. Normal left A1 segments of the anterior cerebral artery. Normal intact anterior communicating artery (ACOM). Generalized decreased caliber of the right A2 segments possibly due to hypoplasia. Normal right M1 and M2 segments of the middle cerebral arteries, with a normal M1 bifurcation. Normal left M1 and M2 segments of the middle cerebral arteries, with a normal M1 bifurcation. Nonvisualization of the posterior communicating arteries (PCOM). Normal bilateral vertebral arteries. Normal basilar artery with a normal basilar bifurcation. The visualized bilateral superior cerebellar (SCA) arteries are normal. Normal bilateral P1, P2 and visualized P3 segments of the posterior cerebral arteries. There is no demonstrated aneurysm of the [place]. There is no demonstrated abnormality of the visualized brain. CT/CTA Head W/WO Contrast IMPRESSION: No demonstrated aneurysm. 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 Electronically Signed: Marquis DO Krish at 16:04 EDT Tel [phone], Service support , CC: MD Jas Poole; Lisa Ziegler DO Metal Bonding Worker: Signed Lisa Ziegler Start: 08-14-2018 End: 08-14-2018 CTA Neck W/WO Contrast Comments: See Note; NOTES: [facility] Imaging Services [address] [place] [address] CTA Neck W/WO Contrast MR#: [id number] Acct: [id number] Name: GALINA LATHAM Rep #: [id number] : 1970 F 48 From: Eugenio Crain MD PCP: Lisa Ziegler DO Status: REG ER Study: CTA Neck W/WO Contrast Date of Exam: 08/14/18 Exam# [id number] Ordering Dr: Jean-Pierre Poole MD STUDY: CTA NECK WITH CONTRAST REASON FOR EXAM: Female, 48 years old. Headache, dizziness, nausea RADIATION DOSAGE (If Supplied By Facility): CTDIvol = ( 28.84 ) mGy, DLP = ( 1496.06 ) mGycm TECHNIQUE: CT angiography with multi-detector data acquisition was performed from the aortic arch to the skull base following intravenous administration of 100 IV Isovue 370. MIP images were reconstructed from the axial data set. Post-processing of the angiographic images was performed, with multiplanar reformation and 3D reconstruction. Individualized dose optimization techniques were used for this CT. COMPARISON: None. FINDINGS: AORTIC ARCH: Normal visualized aortic arch. Normal origins of the brachiocephalic, left common carotid, and left subclavian arteries. RIGHT CAROTID ARTERIES: Normal right common carotid artery (CCA). Normal right common carotid bulb. Normal origin of the right internal carotid (ICA) artery without a hemodynamically significant stenosis. Normal visualized cervical portion of the right internal carotid artery. Normal origin of the right external carotid artery (ECA). LEFT CAROTID ARTERIES: Normal left common carotid artery (CCA). Normal left common carotid bulb. Normal origin of the left internal carotid (ICA) artery without a hemodynamically significant stenosis. Normal visualized cervical portion of the left internal carotid artery. Normal origin of the left external carotid artery (ECA). VERTEBRAL ARTERIES: Normal bilateral vertebral arteries. The left vertebral artery is dominant. There is multilevel cervical disc space narrowing, disc osteophyte complexes and facet hypertrophy mild central canal stenosis. There are Mild inflammatory changes paranasal sinuses mucosal thickening paranasal sinuses and edema of the middle turbinates. CT/CTA Neck W/WO Contrast IMPRESSION: Normal bilateral cervical carotid and vertebral arteries Multilevel spondylosis of the cervical spine as above Inflammatory changes paranasal sinuses Electronically Signed: Eugenio Crain, at 16:16 EDT Tel , Service support , CC: MD Mark Jwayyepatel; Lisa Ziegler DO Metal Bonding Worker: Signed Lisa Ziegler Start: 05-24-2018 End: 05-24-2018 Offset Machine Operator Office Visit Report Comments: See Note; NOTES: [facility] [address] [place] [address] OFFICE VISIT Date of Service: 05/24/18 MR#: [id number] Acct: [id number] Name: GALINA LATHAM Rep #: [id number] : 1970 Provider: Katey Elizabeth MD Age/Sex: 48/F Location: [facility] Status: Signed Intake Vital Signs05/24/18 Body Mass Index (BMI) 33.7 05/24/18 Height 5 ft 7 in 05/24/18 Weight: 216 lb 05/24/18 Body Mass Index (BMI) 33.8 05/24/18 Blood Pressure 120/82 H Intake Visit Reasons: ANNUAL Chief Complaint: est annual Veneer Splicer Required: No Is patient in pain?: No [...] menopausal: No Patient : No : No PFSH Medical History Acute back pain (Acute) Anxiety [...] Hx Para Spontaneous abortions HPI ANNUAL: Details: GALINA LATHAM is a 48 year old who [...] no acute distress, well developed, well groomed [facility] Head: normal to inspection, normocephalic Ears: hearing [...] signed by Katey Elizabeth MD> Date Katey Elizabeth MD Cosigner Signature: Date (if applicable) CC: Lisa Ziegler Start: 04-14-2018 End: 04-14-2018 Emergency Department Summary Comments: See Note; NOTES: [facility] Medical Records Department [address] [place] [address] Emergency Department Summary 04/14/18 0437 MR#: [id number] Acct: [id number] Name: GALINA LATHAM Rep #: [id number] : 1970 48 From: Ricky Jacobsen PCP: [...] muscle strain This note was generated with [employer] dictation software. It may contain incorrect words, spelling, [...] problems, contact your Primary Care Provider. Call [facility] ([phone]) or report to the closest Emergency Room. Call 911 if necessary. 04/14/18 0439 <Electronically signed by Ricky Jacobsen> Date Ricky An LECHUGA Cosigner Signature (If Indicated): Date CC: Lisa Ziegler DO Lisa Coronelon Start: 03-15-2018 End: 03-15-2018 SCREENING MAMM (CAD), BILAT Comments: See Note; NOTES: [facility] Imaging Services [address] [place] [address] SCREENING MAMM (CAD), BILAT MR#: [id number] Acct: [id number] Name: GALINA LATHAM Rep #: [id number] : 1970 F 47 From: Raffaele Galloway MD PCP: Lisa Ziegler DO Status: [facility] Study: SCREENING MAMM (CAD), BILAT Date of Exam: 03/15/18 Exam# [id number] Ordering Dr: Katey Elizabeth MD MAMMOGRAPHY - BILATERAL SCREENING REASON FOR EXAM: Female, 47 years old. Routine annual screening examination. PERTINENT HISTORY: Grandmother with breast cancer. TECHNIQUE: Digital bilateral breast kameron (3D mammographic acquisition) in the CC and [...] delay biopsy of a clinically suspicious abnormality. [id number] Electronically Signed: Raffaele Galloway MD at 14:33 EST Tel [phone], Service support , CC: Lisa Ziegler DO; Katey Elizabeth MD Metal Bonding Worker: Signed Lisa Ziegler Start: 03-15-2017 End: 03-15-2017 PT D/C Summary (1) Comments: See Note; NOTES: [facility] Physical [facility] [address] [place], [place] [address] Fax REHABILITATION SERVICES DISCHARGE SUMMARY MR#: [id number] Acct: [id number] Name: GALINA LATHAM Rep #: [id number] : 1970 46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 Slarb LP N Hysterectomy Eliecer Mikael LP N Hysterectomy Eliecer Mikael LP N Hysterectomy Isabel Slarb LP N Hysterectomy CHRISTIANO Carlos SECRETARY Hysterectomy Isabel Slarb LP N Isabel Slarb LP N Eliecer Mikael LP N Eliecer Youssef LP N Isabel Guillen LP N CHRISTIANO Gonzalez LPN Isabel Guillen LP N Plan of Treatment Date Care Activity Detail Author Start: 09-18-2024 Screening mammography SCRN LATOYA M (CAD)W/[facility]ON [facility] Start: 12-02-2020 Procedure Education [facility] Work Phone: Start: 07-19-2020 Procedure Education [facility]; [facility] Work Phone: Start: 07-19-2020 Provider Instruction s for Treatment [facility]; [facility] Work Phone: Start: 07-19-2020 Lipid panel LIPID PANEL (42070) [facility] Work Phone: Start: 07-19-2020 Comprehensive metabo lic panel METABOLIC PANEL, COMPREHENSIVE (46791) [facility]; [facility] Work Phone: Start: 07-19-2020 Blood count complete auto&auto difrntl wbc CBC W/AUTO DIFF WBC (93818) [facility]; [facility] Work Phone: Start: 12-22-2019 Procedure Education [facility] Work Phone: Start: 12-22-2019 Provider Instruction s for Treatment [facility] Work Phone: Start: 09-12-2019 C-reactive protein h igh sensitivity [facility] Work Phone: Start: 09-12-2019 Procedure Education [facility] Work Phone: Start: 09-12-2019 Iaad ia giardia [facility] Work Phone: Start: 09-12-2019 Iaad ia cryptosporidium [facility] Work Phone: Start: 09-04-2019 Procedure Education [facility] Work Phone: Start: 09-04-2019 Provider Instruction s for Treatment [facility] Work Phone: Start: 08-30-2019 Procedure Education [facility] Work Phone: Start: 07-21-2019 Procedure Education [facility] Work Phone: Start: 03-14-2019 Procedure Education [facility] Work Phone: Start: 02-01-2018 Procedure Education [facility] Work Phone: Start: 02-01-2018 Provider Instruction s for Treatment [facility] Work Phone: Start: 01-26-2018 Procedure Education [facility] Work Phone: Start: 01-26-2018 Provider Instruction s for Treatment [facility] Work Phone: Start: 01-21-2018 Procedure Education [facility] Work Phone: Start: 01-21-2018 Provider Instruction s for Treatment [facility] Work Phone: Start: 06-17-2017 Procedure Education [facility] Work Phone: Start: 06-17-2017 Provider Instruction s for Treatment [facility] Work Phone: Start: 06-17-2017 Blood occult peroxid ase actv qual feces 1 deter [facility] Work Phone: Start: 06-17-2017 Culture bacterial an y source anaerobic iso&id [facility] Work Phone: Start: 06-17-2017 Leukocyte assmt feca l qual/semiquantitative [facility] Work Phone: Start: 06-17-2017 Ova&parasites direct smears concentration & id [facility] Work Phone: Start: 06-17-2017 Cul bact stool aerob ic isol salmonella&shigell [facility] Work Phone: Start: 03-04-2017 Procedure Education [facility] Work Phone: Start: 03-04-2017 Provider Instruction s for Treatment [facility] Work Phone: Start: 02-25-2017 Procedure Education [facility] Work Phone: Start: 02-25-2017 Provider Instruction s for Treatment [facility] Work Phone: Start: 01-25-2017 End: 01-25-2017 Mammogram, both breasts Mammogram, Diagnostic, both breasts [facility][1] Start: 01-25-2017 End: 01-25-2017 Us exam, breast(s) US Breast(s) [facility][1] Start: 12-24-2016 Provider Instruction s for Treatment [facility] Work Phone: Start: 12-04-2016 Provider Instruction s for Treatment [facility] Work Phone: Start: 12-03-2016 C-reactive protein [facility]; [facility] Work Phone: Start: 12-03-2016 CRP [Mass/Vol] C-REACTIVE PRO TEIN (43993) [facility] Work Phone: Comment on above: add on Start: 12-03-2016 Procedure Education [facility] Work Phone: Start: 12-03-2016 Provider Instruction s for Treatment [facility] Work Phone: Start: 12-03-2016 CBC, PLATELETS & MAN UAL DIFF (32591) [facility] Work Phone: Start: 12-03-2016 Sedimentation rate r bc non-automated [facility] Work Phone: Start: 12-03-2016 Comprehensive metabo lic panel [facility] Work Phone: Start: 08-28-2016 Provider Instruction s for Treatment [facility] Work Phone: Start: 05-05-2016 Procedure Education [facility] Work Phone: Start: 04-10-2016 Procedure Education [facility] Work Phone: Start: 04-10-2016 Provider Instruction s for Treatment [facility] Work Phone: Start: 04-07-2016 Procedure Education [facility] Work Phone: Start: 04-07-2016 Blood count complete auto&auto difrntl wbc [facility] Work Phone: Start: 04-07-2016 Comprehensive metabo lic panel [facility] Work Phone: Start: 03-02-2016 Procedure Education [facility] Work Phone: Start: 03-02-2016 Provider Instruction s for Treatment [facility] Work Phone: Start: 02-14-2016 Provider Instruction s for Treatment [facility] Work Phone: Start: 08-15-2015 Provider Instruction s for Treatment [facility] Work Phone: Start: 08-15-2015 25 hydroxy includes fractions if performed [facility] Work Phone: Start: 08-15-2015 Assay of thyroid stimulating hormone tsh [facility]; [facility] Work Phone: Start: 08-15-2015 TSH Qn TSH (24635) [facility] Work Phone: Start: 08-15-2015 Blood count complete auto&auto difrntl wbc [facility] Work Phone: Start: 08-15-2015 Comprehensive metabo lic panel [facility] Work Phone: Start: 08-15-2015 Lipid panel [facility] Work Phone: Start: 08-08-2015 Provider Instruction s for Treatment [facility] Work Phone: Start: 08-01-2015 Procedure Education [facility] Work Phone: Start: 08-01-2015 Provider Instruction s for Treatment [facility] Work Phone: Start: 08-01-2015 Iaadiadoo influenza [facility] Work Phone: Start: 07-24-2015 Provider Instruction s for Treatment [facility] Work Phone: Start: 07-08-2015 Provider Instruction s for Treatment [facility] Work Phone: Start: 06-07-2015 Provider Instruction s for Treatment [facility] Work Phone: Start: 05-14-2015 Provider Instruction s for Treatment [facility] Work Phone: Start: 04-09-2015 Procedure Education [facility] Work Phone: Start: 04-05-2015 Patient Education [facility] Work Phone: Start: 04-05-2015 Provider Instruction s for Treatment [facility] Work Phone: Start: 02-21-2015 Provider Instruction s for Treatment [facility] Work Phone: Start: 11-08-2014 Procedure Education [facility] Work Phone: Start: 07-02-2014 Provider Instruction s for Treatment [facility] Work Phone: Start: 01-05-2014 Provider Instruction s for Treatment [facility] Work Phone: Start: 11-07-2013 Assay of thyroid stimulating hormone tsh [facility]; [facility] Work Phone: Start: 11-07-2013 TSH Qn TSH (15921) [facility] Work Phone: Start: 09-08-2013 Assay of thyroid stimulating hormone tsh [facility]; [facility] Work Phone: Start: 09-08-2013 TSH Qn TSH (86072) [facility] Work Phone: Start: 07-10-2013 Provider Instruction s for Treatment [facility] Work Phone: Start: 06-05-2013 Provider Instruction s for Treatment [facility] Work Phone: Start: 05-02-2013 Provider Instruction s for Treatment [facility] Work Phone: Start: 04-28-2013 Patient Education [facility] Work Phone: Start: 04-28-2013 Provider Instruction s for Treatment [facility] Work Phone: Start: 01-30-2013 Patient Education [facility] Work Phone: Start: 12-26-2012 Patient Education [facility] Work Phone: Start: 10-06-2012 Provider Instruction s for Treatment [facility] Work Phone: Start: 05-10-2012 Patient Education [facility] Work Phone: Start: 05-10-2012 Provider Instruction s for Treatment [facility] Work Phone: Start: 02-09-2012 Provider Instruction s for Treatment [facility] Work Phone: Start: 02-01-2012 Patient Education [facility] Work Phone: Start: 02-01-2012 Provider Instruction s for Treatment [facility] Work Phone: Start: 10-12-2011 Patient Education [facility] Work Phone: Start: 10-12-2011 Provider Instruction s for Treatment [facility] Work Phone: Start: 08-26-2011 Patient Education [facility] Work Phone: Start: 08-26-2011 Cul bact xcpt urine blood/stool aerobic isol [facility] Work Phone: Start: 04-08-2011 Provider Instruction s for Treatment [facility] Work Phone: Start: 12-01-2010 Provider Instruction s for Treatment [facility] Work Phone: Start: 12-01-2010 Lipid panel [facility] Work Phone: Start: 12-01-2010 Culture bct isol&prs mptv id isolate ea urine [facility] Work Phone: Start: 07-29-2010 Provider Instruction s for Treatment [facility] Work Phone: Start: 07-01-2010 Provider Instruction s for Treatment [facility] Work Phone: Start: 06-25-2010 Provider Instruction s for Treatment [facility] Work Phone: Start: 04-15-2010 Provider Instruction s for Treatment [facility] Work Phone: Start: 03-14-2010 Provider Instruction s for Treatment [facility] Work Phone: Start: 02-24-2010 Provider Instruction s for Treatment [facility] Work Phone: Start: 11-22-2009 Provider Instruction s for Treatment [facility] Work Phone: Start: 10-22-2009 Provider Instruction s for Treatment [facility] Work Phone: Start: 08-12-2009 Blood occult peroxid ase actv qual feces 1 deter [facility] Work Phone: Start: 08-12-2009 Ova&parasites direct smears concentration & id [facility] Work Phone: Start: 08-12-2009 Leukocyte assmt feca l qual/semiquantitative [facility] Work Phone: Start: 08-12-2009 Culture bacterial an y source anaerobic iso&id [facility] Work Phone: Start: 08-12-2009 Cul bact stool aerob ic isol salmonella&shigell [facility] Work Phone: Start: 08-12-2009 Provider Instruction s for Treatment [facility] Work Phone: Start: 06-24-2009 Provider Instruction s for Treatment [facility] Work Phone: Start: 06-11-2009 Provider Instruction s for Treatment [facility] Work Phone: Start: 05-24-2009 Provider Instruction s for Treatment [facility] Work Phone: Start: 02-04-2009 Provider Instruction s for Treatment [facility] Work Phone: Start: 01-21-2009 Provider Instruction s for Treatment [facility] Work Phone: Start: 12-31-2008 Provider Instruction s for Treatment [facility] Work Phone: Start: 12-31-2008 Hpv, dna, amp probe [facility] Work Phone: Start: 12-31-2008 Iadna neisseria gonorrhoeae amplified probe tq [facility] Work Phone: Start: 12-31-2008 Iadna chlamydia trachomatis amplified probe tq [facility] Work Phone: Start: 08-06-2008 Provider Instruction s for Treatment [facility] Work Phone: Start: 06-08-2008 Provider Instruction s for Treatment [facility] Work Phone: Start: 03-12-2008 Provider Instruction s for Treatment [facility] Work Phone: Start: 03-09-2008 Provider Instruction s for Treatment [facility] Work Phone: Start: 01-10-2008 Provider Instruction s for Treatment [facility] Work Phone: Start: 01-09-2008 Provider Instruction s for Treatment [facility] Work Phone: Start: 12-28-2007 Provider Instruction s for Treatment [facility] Work Phone: Start: 12-28-2007 Gonadotropin luteini zing hormone [facility] Work Phone: Start: 09-13-2007 Provider Instruction s for Treatment [facility] Work Phone: Start: 08-30-2007 Provider Instruction s for Treatment [facility] Work Phone: Start: 08-01-2007 Provider Instruction s for Treatment [facility] Work Phone: Start: 05-17-2007 Ova&parasites direct smears concentration & id [facility] Work Phone: Start: 05-17-2007 Leukocyte assmt feca l qual/semiquantitative [facility] Work Phone: Start: 05-17-2007 Culture bacterial an y source anaerobic iso&id [facility] Work Phone: Start: 05-17-2007 Cul bact stool aerob ic isol salmonella&shigell [facility] Work Phone: Start: 05-11-2007 Provider Instruction s for Treatment [facility] Work Phone: Start: 05-11-2007 Glucose [Mass/Vol] Glucose, PP /2 Hour (69874) [facility] Work Phone: Comment on above: also send results to dr tiara baltazar at [facility] Start: 05-11-2007 Glucose quantitative blood xcpt reagent strip [facility]; [facility] Work Phone: Start: 05-11-2007 Hepatic function panel [facility] Work Phone: Start: 05-11-2007 Lipid panel [facility] Work Phone: Comment on above: do in 3 months Start: 03-15-2007 Provider Instruction s for Treatment [facility] Work Phone: Start: 01-12-2007 Provider Instruction s for Treatment [facility] Work Phone: Start: 11-11-2006 Provider Instruction s for Treatment [facility] Work Phone: Start: 11-11-2006 Lipid panel [facility] Work Phone: Comment on above: do in 4 months Start: 06-30-2006 Antibody helicobacte r pylori [facility] Work Phone: Start: 06-30-2006 Provider Instruction s for Treatment [facility] Work Phone: Start: 04-15-2006 Provider Instruction s for Treatment [facility] Work Phone: [facility] Work Phone: [facility] Work Phone: [facility] Work Phone: [facility] Work Phone: [facility] Work Phone: [facility] Work Phone: [facility] Work Phone: [facility] Work Phone: [facility] Work Phone: [facility] Work Phone: [facility] Work Phone: [facility] Work Phone: [facility] Work Phone: [facility] Work Phone: [facility] Work Phone: [facility] Work Phone: [facility] Work Phone: [facility] Work Phone: [facility] Work Phone: [facility] Work Phone: [facility] Work Phone: [facility] Work Phone: [facility] Work Phone: [facility] Work Phone: [facility] Work Phone: [facility] Work Phone: [facility] Work Phone: [facility] Work Phone: [facility] Work Phone: [facility] Work Phone: [facility] Work Phone: [facility] Work Phone: [facility] Work Phone: [facility] Work Phone[facility] Work Phone: [facility] Work Phone: [facility] Work Phone: [facility] Work Phone: [facility] Work Phone: Immunizations Immunization Date Immunization Notes Care Provider [facility] 12-02-2020 TD(adult) unspecifie d formulation Lisa Ming DO Work Phone: [facility]; [facility] Work Phone: 12-02-2020 tetanus and diphther ia toxoids, adsorbed, preservative free, for adult use (2 Lf of tetanus toxoid and 2 Lf of diphtheria toxoid) Lisa Ziegler DO Work Phone: [facility]; [facility] Work Phone: 05-03-2012 influenza, seasonal, injectable Lisa Ziegler [facility] Work Phone: 12-26-2008 tetanus toxoid, reduced diphtheria toxoid, and acellular pertussis vaccine, adsorbed Lisa Ziegler [facility] Work Phone: Comment on above: Lot #[id number] 06/07/2010Site-right deltoidDose0.5mlgiven by Kimber Muir LPN Payers Date Payer Category Payer Self-pay [id number] 2022 Unknown [id number] 2020 Unknown [id number] 2019 Unknown [id number] 2017 Unknown [id number] 2016 Unknown [id number] 2014 Unknown [id number] 2013 Unknown [id number] 2010 Unknown [id number] 2006 Private Health Insurance [id number] 1972 Unknown [id number] 2.16.84 [id number] Unknown Unknown [id number] Unknown [id number] 2.16.8 [id number] Unknown [id number] 2.16.8 [id number] Unknown [id number] 2.16.8 [id number] Unknown [id number] 2.16.8 [id number] Unknown [id number] 2.16.8 [id number] Unknown [id number] 2.16.8 [id number] Unknown [id number] 2.16.8 [id number] Unknown [id number] 2.16.8 [id number] Unknown [id number] 2.16.8 [id number] Unknown [id number] 2.16.8 [id number] Social History Date Type Detail Facility Alcohol Use [facility] Work Phone: Comment on above: Occasional alcohol u se 5-6 QD Light Lives with parents pearl Smokes 1.5 packs of cigarettes per day 09/09/11 Start: 08-12-2021 End: 08-20-2022 Tobacco smoking status NHIS Unknown if ever smoked [facility] Start: 01-31-2019 Cigarettes [facility] Start: 1970 Sex Assigned At Female [facility] Start: 08-20-2022 Tobacco smoking stat us NHIS Current Heavy tobacco smoker [facility] Sex Female [facility] Clinical Notes 12-11-2022 to 01-20-2025 Note Date & Type Note Facility 01-20-2025 Radiology Diagnostic study note [facility] Imaging Services [address] [place], [place] [address] Abdomen Single View MR#: [id number] Acct: [id number] Name: GALINA LATHAM Rep #: [id number] : 1970 F 54 From: Juice Hughes-Joseph KAPLAN PCP: Dr. Lisa Ziegler DO Status: RE G CLI Study:Abdomen Single View Date of Exam: 01/18/25 Exam# [id number] Ordering Dr: Aristeo Ziegler DO PROCEDURE: ABDOMEN SINGLE VIEW 01/18/2025 REASON FOR EXAM: ABDOMINAL PAIN TECHNIQUE: Procedure Code: RADABD Modality: DX Procedure: ABDOMEN SINGLE VIEW COMPARISON: None FINDINGS: The bowel gas pattern is nonobstructive but nonspecific. There is no dilated loop of bowel. Utcc-sq-yrzmgqcu amount of stool is present in the colon. Lung bases are clear. Osseous structures are normal. Surgical clips are present in the right upper quadrant. SI joints are symmetrical. Degenerative changes of both hips present. RAD/Abdomen Single View IMPRESSION: Ruhsureq-pr-hqtlr amount of stool in the colon. No bowel obstruction. Degenerative changes of both hips. Reading Location: [id number] CC: Dr. Lisa Ziegler, ~ Metal [employer] Worker: Signed [facility] 09-18-2024 Evaluation note Diagnosis Onset Date Resolution Encounter for routine gynecological examination noneactive September 18, 2024 7:45am [facility] Work Phone: [phone] 238-575905-19-2025 [facility] [address], [address] [place] [address] OFFICE VISIT Date of Service: 09/18/24 MR#: [id number] Acct: [id number] Name: GALINA LATHAM Rep #: [id number] : 1970 Provider: Dr. 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 Is patient in pain?: No Allergies fluoxetine (From Prozac) Allergy (Verified 09/18/24 08:01) Diarrhea venom-honey bee (bee venom (honey bee)) Allergy (Verified 09/18/24 08:01) Anaphylaxis Penicillins Adverse Reaction (Verified 09/18/24 08:01) Vomiting Medications ?Medication ?Instructions ?Recorded ?Confirmed ?Type multivitamin 1 ea PO DAILY supplement 05/2109/18/24 History buspirone 30 mg tablet 30 mg PO BID 03/23/20 05/19/ 25 History fenofibric acid (choline) 135 mg 135 mg PO DAILY 08/2109/18/24 History capsule,delayed release (Trilipix) cholecalciferol (vitamin D3) 125 125 mcg PO DAILY 08/0109/18/24 History mcg (5,000 unit) capsule trazodone 100 mg tablet 100 mg PO QHS 08/12/2109/18 History calcium carbonate 600 mg PO QDAY 09/18/2408/31 History diazepam 5 mg tablet 5 mg PO QHS PRN 09/18/24 History magnesium 250 mg tablet 250 mg PO QDAY 09/18/2408/31 History sertraline 100 mg tablet (Zoloft) 100 mg PO QDAY 09/1809/18/24 History Is last menstrual period known: No Patient : No : No PFSH Medical History Hyperlipidemia Anxiety and depression Vitamin D deficiency History of frequent headaches History of marijuana use Leukocytopenia IBS (irritable bowel syndrome) Hypertension Hepatomegaly Tobacco use Surgical History Hx of right breast biopsy History of total vaginal hysterectomy (TVH) History of carpal tunnel surgery History of dilation and curettage Hx laparoscopic cholecystectomy Family History Mother Hypertension Father Suicide Uncle Suicide Social History Smoking Status: Heavy Smoker (>10/day) alcohol intake: never substance use type: does not use caffeine: Yes what type of physical activity do you participate in: walking seatbelt use: always do you feel safe at home: Yes 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 Last PAP: hyst History of abnormal PAP: Last mammogram: done today History of abnormal mammogram: Colon cancer screening: colonoscopy done last April Other preventative health care screenings: PCP [facility] Female Reproductive History Menopausal Symptoms: No hot flashes, No night sweats, No weight change, No mood changes, No difficulty concentrating, No sleep problems and No change in libido ROS Const Constitutional: Reports as per HPI; Denies fatigue, increased appetite, poor appetite, night sweats, weight gain or weight loss Cardio Card: Denies chest pain Resp Resp: Denies cough or dyspnea GI GI: Reports as per HPI; Denies abdominal pain, bloating, constipation, nausea or vomiting : Reports as per HPI and other; Denies difficulty voiding, dysuria, hematuria, hot flashes, nipple discharge, pelvic pain, prolapsesymptoms, urinary frequency, urinary incontinence, urinaryurgency, vaginal discharge, vaginal dryness, vaginal odor or vaginal pruritus Skin Skin/Breast: Denies changing lesions, breast mass, breast pain, breast skin changes or nipple discharge Psych Psych: Denies anxiety, change in libido, depression or difficulty concentrating Exam Const General: cooperative, healthy appearing, comfortable, no acute distress, well developed and well groomed HENMT Head: normal to inspection and normocephalic Ears: hearing grossly normal bilaterally and external ears normal Nose: external nose normal Face and sinus: normal facial exam Neck Neck: normal visual inspection, full ROM and no lymphadenopathy Thyroid: thyroid normal Chest Chest palpation & inspection: normal inspection of the chest Breast inspection: normal inspection of the breasts and normal inspection of theaxillae Breast palpation: normal palpation of the breasts, normal palpation of the axillae and no axillary lymphadenopathy Resp Effort & Inspection: normal respiratory effort GI Inspection: normal to inspection and non-distended Palpation: soft, no hepatosplenomegaly and no guarding General: bladder normal to palpation External Female Exam: normal external appearance, normal appearance of the urethra and no lesions Urethra: normal appearance of the urethra and normal palpation Speculum Exam - Vagina: normal appearance of the vagina and normal vaginal discharge Bimanual Exam- Vagina & Uterus: bladder normal to palpation Bimanual Exam- Adnexa, other: normal adnexae, no masses and non-tender Skin General: no rashes or lesions noted Neuro General: patient alert, moves all extremities and no focal motor deficits Extrem General: normal to inspection and no pedal edema Psych Appearance: grossly normal Mental Status: mental status grossly normal Affect: normal affect Speech and Movement: speech and movement normal Attitude: cooperative Coding Level of Care Code Off vis,est,prev 40-64yrs Diagnoses Encounter for gynecological examination without abnormal finding Z01.419 Gynecological examination findings: abnormal findings ABSENT Assessment and Plan Assessment and Plan (1) Encounter for routine gynecological examination: Qualifiers: Gynecological examination findings: abnormal findings ABSENT Qualified Code(s): Z01.419 - Encounterfor gynecological examination (general) (routine) without abnormal findings Plan Cervical cancer screening: hyst Breast cancer screening: mamm other health maintenance examination reviewed and orders [...] health maintenance exam or sooner if needed. 09/18/24 0832 fazal KAPLAN> Date _ Katey Elizabeth MD Cosign Signature: Date (if applicable) CC: ~ [facility]08-11-2023 Discharge summary Author Getachew Dominguez [facility] December 11, 2022 1:42pm Note Date/Time December 11, 2022 1: 42pm [facility] Physical Therapy [facility] [address] [place] [address] [address] [place] [address] / REHABILITATION SERVICES DISCHARGE SUMMARY MR#: [id number] Acct: [id number] Name: GALINA LATHAM Rep #: [id number] : 1970 52 From: Getachew Dominguez DPT, OCS, CSCS Referring DrStephanie: Dr. Lisa Ziegler, DO Status: REG RCR Insurance: ANTH SELF PAY INSURANCE Patient Information Patient Information: GALINA LATHAM was seen in my office for initial evaluation on 09/21/22. The following Plan of Care was established for this patient: POC Established Initial Frequency: 2x /Week Initial Duration: 4-6 Weeks Anticipated Interventions Patient/Client Instruction: Educate patient on: Condition and Plan of Care For the Purpose of:: To decrease pain, To increase ROM, To improve nutrient delivery to tissue, To improve muscle performance and motor function and To increase tolerance to activity/condition/position Therapeutic Exercise to Include: Strength training, Postural training, Flexibilty training, Passive ROM and Active ROM For the Purpose of:: To decrease pain, To decrease swelling/inflammation, To increase ROM, To improve nutrient delivery to tissue, To improve muscle performance and motor function and To increase tolerance to activity/condition/position Manual Therapy Techniques to Include: Mobilization, Passive ROM and Soft tissue mobilization For the Purpose of:: To decrease pain, To increase ROM, To improve nutrient delivery to tissue and To improve muscle performance and motor function Ultrasound (thermal/non thermal): Yes (nonthermal L trochanter area) For the Purpose of:: To decrease pain and To decrease swelling/inflammation Last Seen Last Seen: This patient was last seen in our office 10/23/22. Pertinent comments regardingtheir Physical therapy will appear below: Pt seen 9 visits of POC and was 50% better. She was to f/u two weeks later but did not schedule or attend. at this point, it has been over 6 weeks and I will discontinue due to nonattendance. At this point I will be discontinuing this patient from physical therapy. I would be happy to see this patient again in the future if found appropriate by the physician. Thank you! Getachew Dominguez, SHELLIE, OCS, CSCS Balance/Gait/Functional tests Balance/Special Test Scores Lower Extremity Functional Score: 67 <Electronically signed by Getachew Dominguez DPT, OCS, CSCS> 12/11/22 1342 CC: Dr. Lisa Ziegler, DO ~ EBG Signed [facility] Work Phone: Evaluation noteNo assessment information available [facility] Work Phone: Evaluation note* Diagnosis Onset Date Resolution Status Encounter for routine gynecological examination noneactive [facility] Work Phone: Evaluation note* Diagnosis Onset Date Resolution Status Admit Date Encounter for routine gynecological examination noneactive September 182024 7:45am [facility] Work Phone: Evaluation note* Diagnosis Onset Date Resolution Status Admit Date IBS (irritable bowel syndrome) acute February 06, 2025 7:27am [facility] Work Phone: Instructions* Name Dates Details Patient Instructions Indication:BMI 32.0-32.9,adult Start:19-Jul-2020 Instruction Type:Provider Instructions for Treatment How to Access Health Informa tion Online using Patient Portal and 3rd [employer] Apps Indication:BMI 32.0-32.9,adult Start:19-Jul-2020 Instruction Type:Patient Education How to access health informa tion online Indication:Smoker Start:22-Dec-2019 Instruction Type:Patient Education How to access health informa tion online - Detail Indication:Smoker Start:22-Dec-2019 Instruction Type:Patient Education Patient Instructions Indication:Smoker Start:22-Dec-2019 Instruction Type:Provider Instructions for Treatment How to access health informa tion online Indication:Smoker Start:12-Sep-2019 Instruction Type:Patient Education How to access health informa tion online - Detail Indication:Smoker Start:12-Sep-2019 Instruction Type:Patient Education Patient Instructions Indication:Smoker Start:12-Sep-2019 Instruction Type:Provider Instructions for Treatment How to access health informa tion online Indication:BMI 32.0-32.9,adult Start:04-Sep-2019 Instruction Type:Patient Education How to access health informa tion online - Detail Indication:BMI 32.0-32.9,adult Start:04-Sep-2019 Instruction Type:Patient Education Patient Instructions Indication:BMI 32.0-32.9,adult Start:04-Sep-2019 Instruction Type:Provider Instructions for Treatment How to access health informa tion online Indication:Diarrhea Start:30-Aug-2019 Instruction Type:Patient Education How to access health informa tion online - Detail Indication:Diarrhea Start:30-Aug-2019 Instruction Type:Patient Education Patient Instructions Indication:Diarrhea Start:30-Aug-2019 Instruction Type:Provider Instructions for Treatment How to access health informa tion online Indication:Smoker Start:21-Jul-2019 Instruction Type:Patient Education How to access health informa tion online - Detail Indication:Smoker Start:21-Jul-2019 Instruction Type:Patient Education Patient Instructions Indication:Smoker Start:21-Jul-2019 Instruction Type:Provider Instructions for Treatment How to access health informa tion online Indication:Nausea and vomiting in adult Start:14-Mar-2019 Instruction Type:Patient Education How to access health informa tion online - Detail Indication:Nausea and vomiting in adult Start:14-Mar-2019 Instruction Type:Patient Education Patient Instructions Indication:BMI 33.0-33.9,adult Start:14-Mar-2019 Instruction Type:Provider Instructions for Treatment How to access health informa tion online Indication:Tobacco use Start:01-Feb-2018 Instruction Type:Patient Education How to access health informa tion online - Detail Indication:Tobacco use Start:01-Feb-2018 Instruction Type:Patient Education Patient Instructions Indication:Tobacco use Start:01-Feb-2018 Instruction Type:Provider Instructions for Treatment How to access health informa tion online Indication:BMI 33.0-33.9,adult Start:26-Jan-2018 Instruction Type:Patient Education How to access health informa tion online - Detail Indication:BMI 33.0-33.9,adult Start:26-Jan-2018 Instruction Type:Patient Education Patient Instructions Indication:BMI 33.0-33.9,adult Start:26-Jan-2018 Instruction Type:Provider Instructions for Treatment How to access health informa tion online Indication:Tobacco use Start:21-Jan-2018 Instruction Type:Patient Education How to access health informa tion online - Detail Indication:Tobacco use Start:21-Jan-2018 Instruction Type:Patient Education Patient Instructions Indication:Tobacco use Start:21-Jan-2018 Instruction Type:Provider Instructions for Treatment How to access health informa tion online Indication:BMI 31.0-31.9,adult Start:17-Jun-2017 Instruction Type:Patient Education How to access health informa tion online - Detail Indication:BMI 31.0-31.9,adult Start:17-Jun-2017 Instruction Type:Patient Education Patient Instructions Indication:Irritable bowel syndrome Start:17-Jun-2017 Instruction Type:Provider Instructions for Treatment How to access health informa tion online Indication:Hyperglyceridemia Start:04-Mar-2017 Instruction Type:Patient Education How to access health informa tion online - Detail Indication:Hyperglyceridemia Start:04-Mar-2017 Instruction Type:Patient Education Patient Instructions Indication:Hyperglyceridemia Start:04-Mar-2017 Instruction Type:Provider Instructions for Treatment How to access health informa tion online - Detail Indication:Tobacco use Start:25-Feb-2017 Instruction Type:Patient Education How to access health informa tion online Indication:Tobacco use Start:25-Feb-2017 Instruction Type:Patient Education Patient Instructions Indication:Tobacco use Start:25-Feb-2017 Instruction Type:Provider Instructions for Treatment How to access health informa tion online Indication:Tobacco use Start:24-Dec-2016 Instruction Type:Patient Education How to access health informa tion online - Detail Indication:Tobacco use Start:24-Dec-2016 Instruction Type:Patient Education Patient Instructions Indication:Tobacco use Start:24-Dec-2016 Instruction Type:Provider Instructions for Treatment How to access health informa tion online Indication:Tobacco use Start:04-Dec-2016 Instruction Type:Patient Education How to access health informa tion online - Detail Indication:Tobacco use Start:04-Dec-2016 Instruction Type:Patient Education Patient Instructions Indication:Tobacco use Start:04-Dec-2016 Instruction Type:Provider Instructions for Treatment How to access health informa tion online Indication:Tobacco use Start:03-Dec-2016 Instruction Type:Patient Education How to access health informa tion online - Detail Indication:Tobacco use Start:03-Dec-2016 Instruction Type:Patient Education Patient Instructions Indication:Tobacco use Start:03-Dec-2016 Instruction Type:Provider Instructions for Treatment How to access health informa tion online Indication:BMI 30.0-30.9,adult Start:28-Aug-2016 Instruction Type:Patient Education How to access health informa tion online - Detail Indication:BMI 30.0-30.9,adult Start:28-Aug-2016 Instruction Type:Patient Education Patient Instructions Indication:BMI 30.0-30.9,adult Start:28-Aug-2016 Instruction Type:Provider Instructions for Treatment How to access health informa tion online Indication:Intractable vomiting with nausea, unspecified vomiting type Start:05-May-2016 Instruction Type:Patient Education How to access health informa tion online - Detail Indication:Intractable vomiting with nausea, unspecified vomiting type Start:05-May-2016 Instruction Type:Patient Education Patient Instructions Indication:Intractable vomiting with nausea, unspecified vomiting type Start:05-May-2016 Instruction Type:Provider Instructions for Treatment How to access health informa tion online Indication:Tobacco use Start:10-Apr-2016 Instruction Type:Patient Education How to access health informa tion online - Detail Indication:Tobacco use Start:10-Apr-2016 Instruction Type:Patient Education Patient Instructions Indication:Tobacco use Start:10-Apr-2016 Instruction Type:Provider Instructions for Treatment How to access health informa tion online Indication:Dysuria Start:07-Apr-2016 Instruction Type:Patient Education How to access health informa tion online - Detail Indication:Dysuria Start:07-Apr-2016 Instruction Type:Patient Education Patient Instructions Indication:Dysuria Start:07-Apr-2016 Instruction Type:Provider Instructions for Treatment How to access health informa tion online Indication:UTI symptoms Start:02-Mar-2016 Instruction Type:Patient Education How to access health informa tion online - Detail Indication:UTI symptoms Start:02-Mar-2016 Instruction Type:Patient Education Patient Instructions Indication:UTI symptoms Start:02-Mar-2016 Instruction Type:Provider Instructions for Treatment How to access health informa tion online Indication:Hypercholesterolemia Start:14-Feb-2016 Instruction Type:Patient Education How to access health informa tion online - Detail Indication:Hypercholesterolemia Start:14-Feb-2016 Instruction Type:Patient Education Patient Instructions Indication:Hypercholesterolemia Start:14-Feb-2016 Instruction Type:Provider Instructions for Treatment Patient Instructions Indication:Irritable bowel syndrome Start:15-Aug-2015 Instruction Type:Provider Instructions for Treatment Patient Instructions Indication:Vitamin D deficiency Start:15-Aug-2015 Instruction Type:Provider Instructions for Treatment How to access health informa tion online Indication:Abnormal lung sounds Start:08-Aug-2015 Instruction Type:Patient Education How to access health informa tion online - Detail Indication:Abnormal lung sounds Start:08-Aug-2015 Instruction Type:Patient Education Patient Instructions Indication:Abnormal lung sounds Start:08-Aug-2015 Instruction Type:Provider Instructions for Treatment How to access health informa tion online Indication:Thrush, oral Start:24-Jul-2015 Instruction Type:Patient Education How to access health informa tion online - Detail Indication:Thrush, oral Start:24-Jul-2015 Instruction Type:Patient Education Patient Instructions Indication:Thrush, oral Start:24-Jul-2015 Instruction Type:Provider Instructions for Treatment How to access health informa tion online - Detail Indication:Headache Start:23-Apr-2015 Instruction Type:Patient Education How to access health informa tion online Indication:Headache Start:23-Apr-2015 Instruction Type:Patient Education Patient Instructions Indication:Headache Start:23-Apr-2015 Instruction Type:Provider Instructions for Treatment How to access health informa tion online Indication:Headache Start:09-Apr-2015 Instruction Type:Patient Education How to access health informa tion online - Detail Indication:Headache Start:09-Apr-2015 Instruction Type:Patient Education Patient Instructions Indication:Headache Start:09-Apr-2015 Instruction Type:Provider Instructions for Treatment How to access health informa tion online Indication:Anxiety Start:05-Apr-2015 Instruction Type:Patient Education How to access health informa tion online - Detail Indication:Anxiety Start:05-Apr-2015 Instruction Type:Patient Education Patient Instructions Indication:Anxiety Start:05-Apr-2015 Instruction Type:Provider Instructions for Treatment How to access health informa tion online Indication:Headache Start:08-Nov-2014 Instruction Type:Patient Education How to access health informa tion online - Detail Indication:Headache Start:08-Nov-2014 Instruction Type:Patient Education Patient Instructions Indication:Itchy eyes Start:08-Nov-2014 Instruction Type:Provider Instructions for Treatment How to access health informa tion online Indication:Myalgia Start:20-Feb-2014 Instruction Type:Patient Education How to access health informa tion online Indication:Hyperglyceridemia Start:05-Jan-2014 Instruction Type:Patient Education How to access health informa tion online - Detail Indication:Hyperglyceridemia Start:05-Jan-2014 Instruction Type:Patient Education Patient Instructions Indication:Hyperglyceridemia Start:05-Jan-2014 Instruction Type:Provider Instructions for Treatment Patient Instructions Indication:Medication side effect Start:10-Jul-2013 Instruction Type:Provider Instructions for Treatment Patient Instructions Indication:Stress reaction Start:15-Jun-2013 Instruction Type:Provider Instructions for Treatment Patient Instructions Indication:Nausea and vomiting Start:05-Jun-2013 Instruction Type:Provider Instructions for Treatment Patient Instructions Indication:VOLUME DEPLETION DISORDER; DEHYDRATION Start:02-May-2013 Instruction Type:Provider Instructions for Treatment Patient Instructions Indication:Anxiety Start:28-Apr-2013 Instruction Type:Provider Instructions for Treatment Patient Instructions Indication:Shoulder Pain Start:16-Feb-2013 Instruction Type:Provider Instructions for Treatment Patient Instructions Indication:Hyperglyceridemia Start:06-Oct-2012 Instruction Type:Provider Instructions for Treatment Patient Instructions Indication:Hypercholesterolemia Start:10-May-2012 Instruction Type:Provider Instructions for Treatment DISCONTINUED - Renal functio n Panel (58002) Indication:Hypercholesterolemia Start:01-Feb-2012 Instruction Type:Patient Education DISCONTINUED - Lipid Panel ( [id number]) Indication:Hypercholesterolemia Start:01-Feb-2012 Instruction Type:Patient Education Patient Instructions Indication:Hypercholesterolemia Start:01-Feb-2012 Instruction Type:Provider Instructions for Treatment [facility] Work Phone: Instructions* Name Dates Details Patient Instructions Indication:BMI 32.0-32.9,adult Start:19-Jul-2020 Instruction Type:Provider Instructions for Treatment How to Access Health Informa tion Online using Patient Portal and 3rd [employer] Apps Indication:BMI 32.0-32.9,adult Start:19-Jul-2020 Instruction Type:Patient Education How to access health informa tion online Indication:Smoker Start:22-Dec-2019 Instruction Type:Patient Education How to access health informa tion online - Detail Indication:Smoker Start:22-Dec-2019 Instruction Type:Patient Education Patient Instructions Indication:Smoker Start:22-Dec-2019 Instruction Type:Provider Instructions for Treatment How to access health informa tion online Indication:Smoker Start:12-Sep-2019 Instruction Type:Patient Education How to access health informa tion online - Detail Indication:Smoker Start:12-Sep-2019 Instruction Type:Patient Education Patient Instructions Indication:Smoker Start:12-Sep-2019 Instruction Type:Provider Instructions for Treatment How to access health informa tion online Indication:BMI 32.0-32.9,adult Start:04-Sep-2019 Instruction Type:Patient Education How to access health informa tion online - Detail Indication:BMI 32.0-32.9,adult Start:04-Sep-2019 Instruction Type:Patient Education Patient Instructions Indication:BMI 32.0-32.9,adult Start:04-Sep-2019 Instruction Type:Provider Instructions for Treatment How to access health informa tion online Indication:Diarrhea Start:30-Aug-2019 Instruction Type:Patient Education How to access health informa tion online - Detail Indication:Diarrhea Start:30-Aug-2019 Instruction Type:Patient Education Patient Instructions Indication:Diarrhea Start:30-Aug-2019 Instruction Type:Provider Instructions for Treatment How to access health informa tion online Indication:Smoker Start:21-Jul-2019 Instruction Type:Patient Education How to access health informa tion online - Detail Indication:Smoker Start:21-Jul-2019 Instruction Type:Patient Education Patient Instructions Indication:Smoker Start:21-Jul-2019 Instruction Type:Provider Instructions for Treatment How to access health informa tion online Indication:Nausea and vomiting in adult Start:14-Mar-2019 Instruction Type:Patient Education How to access health informa tion online - Detail Indication:Nausea and vomiting in adult Start:14-Mar-2019 Instruction Type:Patient Education Patient Instructions Indication:BMI 33.0-33.9,adult Start:14-Mar-2019 Instruction Type:Provider Instructions for Treatment How to access health informa tion online Indication:Tobacco use Start:01-Feb-2018 Instruction Type:Patient Education How to access health informa tion online - Detail Indication:Tobacco use Start:01-Feb-2018 Instruction Type:Patient Education Patient Instructions Indication:Tobacco use Start:01-Feb-2018 Instruction Type:Provider Instructions for Treatment How to access health informa tion online Indication:BMI 33.0-33.9,adult Start:26-Jan-2018 Instruction Type:Patient Education How to access health informa tion online - Detail Indication:BMI 33.0-33.9,adult Start:26-Jan-2018 Instruction Type:Patient Education Patient Instructions Indication:BMI 33.0-33.9,adult Start:26-Jan-2018 Instruction Type:Provider Instructions for Treatment How to access health informa tion online Indication:Tobacco use Start:21-Jan-2018 Instruction Type:Patient Education How to access health informa tion online - Detail Indication:Tobacco use Start:21-Jan-2018 Instruction Type:Patient Education Patient Instructions Indication:Tobacco use Start:21-Jan-2018 Instruction Type:Provider Instructions for Treatment How to access health informa tion online Indication:BMI 31.0-31.9,adult Start:17-Jun-2017 Instruction Type:Patient Education How to access health informa tion online - Detail Indication:BMI 31.0-31.9,adult Start:17-Jun-2017 Instruction Type:Patient Education Patient Instructions Indication:Irritable bowel syndrome Start:17-Jun-2017 Instruction Type:Provider Instructions for Treatment How to access health informa tion online Indication:Hyperglyceridemia Start:04-Mar-2017 Instruction Type:Patient Education How to access health informa tion online - Detail Indication:Hyperglyceridemia Start:04-Mar-2017 Instruction Type:Patient Education Patient Instructions Indication:Hyperglyceridemia Start:04-Mar-2017 Instruction Type:Provider Instructions for Treatment How to access health informa tion online - Detail Indication:Tobacco use Start:25-Feb-2017 Instruction Type:Patient Education How to access health informa tion online Indication:Tobacco use Start:25-Feb-2017 Instruction Type:Patient Education Patient Instructions Indication:Tobacco use Start:25-Feb-2017 Instruction Type:Provider Instructions for Treatment How to access health informa tion online Indication:Tobacco use Start:24-Dec-2016 Instruction Type:Patient Education How to access health informa tion online - Detail Indication:Tobacco use Start:24-Dec-2016 Instruction Type:Patient Education Patient Instructions Indication:Tobacco use Start:24-Dec-2016 Instruction Type:Provider Instructions for Treatment How to access health informa tion online Indication:Tobacco use Start:04-Dec-2016 Instruction Type:Patient Education How to access health informa tion online - Detail Indication:Tobacco use Start:04-Dec-2016 Instruction Type:Patient Education Patient Instructions Indication:Tobacco use Start:04-Dec-2016 Instruction Type:Provider Instructions for Treatment How to access health informa tion online Indication:Tobacco use Start:03-Dec-2016 Instruction Type:Patient Education How to access health informa tion online - Detail Indication:Tobacco use Start:03-Dec-2016 Instruction Type:Patient Education Patient Instructions Indication:Tobacco use Start:03-Dec-2016 Instruction Type:Provider Instructions for Treatment How to access health informa tion online Indication:BMI 30.0-30.9,adult Start:28-Aug-2016 Instruction Type:Patient Education How to access health informa tion online - Detail Indication:BMI 30.0-30.9,adult Start:28-Aug-2016 Instruction Type:Patient Education Patient Instructions Indication:BMI 30.0-30.9,adult Start:28-Aug-2016 Instruction Type:Provider Instructions for Treatment How to access health informa tion online Indication:Intractable vomiting with nausea, unspecified vomiting type Start:05-May-2016 Instruction Type:Patient Education How to access health informa tion online - Detail Indication:Intractable vomiting with nausea, unspecified vomiting type Start:05-May-2016 Instruction Type:Patient Education Patient Instructions Indication:Intractable vomiting with nausea, unspecified vomiting type Start:05-May-2016 Instruction Type:Provider Instructions for Treatment How to access health informa tion online Indication:Tobacco use Start:10-Apr-2016 Instruction Type:Patient Education How to access health informa tion online - Detail Indication:Tobacco use Start:10-Apr-2016 Instruction Type:Patient Education Patient Instructions Indication:Tobacco use Start:10-Apr-2016 Instruction Type:Provider Instructions for Treatment How to access health informa tion online Indication:Dysuria Start:07-Apr-2016 Instruction Type:Patient Education How to access health informa tion online - Detail Indication:Dysuria Start:07-Apr-2016 Instruction Type:Patient Education Patient Instructions Indication:Dysuria Start:07-Apr-2016 Instruction Type:Provider Instructions for Treatment How to access health informa tion online Indication:UTI symptoms Start:02-Mar-2016 Instruction Type:Patient Education How to access health informa tion online - Detail Indication:UTI symptoms Start:02-Mar-2016 Instruction Type:Patient Education Patient Instructions Indication:UTI symptoms Start:02-Mar-2016 Instruction Type:Provider Instructions for Treatment How to access health informa tion online Indication:Hypercholesterolemia Start:14-Feb-2016 Instruction Type:Patient Education How to access health informa tion online - Detail Indication:Hypercholesterolemia Start:14-Feb-2016 Instruction Type:Patient Education Patient Instructions Indication:Hypercholesterolemia Start:14-Feb-2016 Instruction Type:Provider Instructions for Treatment Patient Instructions Indication:Irritable bowel syndrome Start:15-Aug-2015 Instruction Type:Provider Instructions for Treatment Patient Instructions Indication:Vitamin D deficiency Start:15-Aug-2015 Instruction Type:Provider Instructions for Treatment How to access health informa tion online Indication:Abnormal lung sounds Start:08-Aug-2015 Instruction Type:Patient Education How to access health informa tion online - Detail Indication:Abnormal lung sounds Start:08-Aug-2015 Instruction Type:Patient Education Patient Instructions Indication:Abnormal lung sounds Start:08-Aug-2015 Instruction Type:Provider Instructions for Treatment How to access health informa tion online Indication:Thrush, oral Start:24-Jul-2015 Instruction Type:Patient Education How to access health informa tion online - Detail Indication:Thrush, oral Start:24-Jul-2015 Instruction Type:Patient Education Patient Instructions Indication:Thrush, oral Start:24-Jul-2015 Instruction Type:Provider Instructions for Treatment How to access health informa tion online - Detail Indication:Headache Start:23-Apr-2015 Instruction Type:Patient Education How to access health informa tion online Indication:Headache Start:23-Apr-2015 Instruction Type:Patient Education Patient Instructions Indication:Headache Start:23-Apr-2015 Instruction Type:Provider Instructions for Treatment How to access health informa tion online Indication:Headache Start:09-Apr-2015 Instruction Type:Patient Education How to access health informa tion online - Detail Indication:Headache Start:09-Apr-2015 Instruction Type:Patient Education Patient Instructions Indication:Headache Start:09-Apr-2015 Instruction Type:Provider Instructions for Treatment How to access health informa tion online Indication:Anxiety Start:05-Apr-2015 Instruction Type:Patient Education How to access health informa tion online - Detail Indication:Anxiety Start:05-Apr-2015 Instruction Type:Patient Education Patient Instructions Indication:Anxiety Start:05-Apr-2015 Instruction Type:Provider Instructions for Treatment How to access health informa tion online Indication:Headache Start:08-Nov-2014 Instruction Type:Patient Education How to access health informa tion online - Detail Indication:Headache Start:08-Nov-2014 Instruction Type:Patient Education Patient Instructions Indication:Itchy eyes Start:08-Nov-2014 Instruction Type:Provider Instructions for Treatment How to access health informa tion online Indication:Myalgia Start:20-Feb-2014 Instruction Type:Patient Education How to access health informa tion online Indication:Hyperglyceridemia Start:05-Jan-2014 Instruction Type:Patient Education How to access health informa tion online - Detail Indication:Hyperglyceridemia Start:05-Jan-2014 Instruction Type:Patient Education Patient Instructions Indication:Hyperglyceridemia Start:05-Jan-2014 Instruction Type:Provider Instructions for Treatment Patient Instructions Indication:Medication side effect Start:10-Jul-2013 Instruction Type:Provider Instructions for Treatment Patient Instructions Indication:Stress reaction Start:15-Jun-2013 Instruction Type:Provider Instructions for Treatment Patient Instructions Indication:Nausea and vomiting Start:05-Jun-2013 Instruction Type:Provider Instructions for Treatment Patient Instructions Indication:VOLUME DEPLETION DISORDER; DEHYDRATION Start:02-May-2013 Instruction Type:Provider Instructions for Treatment Patient Instructions Indication:Anxiety Start:28-Apr-2013 Instruction Type:Provider Instructions for Treatment Patient Instructions Indication:Shoulder Pain Start:16-Feb-2013 Instruction Type:Provider Instructions for Treatment Patient Instructions Indication:Hyperglyceridemia Start:06-Oct-2012 Instruction Type:Provider Instructions for Treatment Patient Instructions Indication:Hypercholesterolemia Start:10-May-2012 Instruction Type:Provider Instructions for Treatment DISCONTINUED - Renal functio n Panel ([id number]) Indication:Hypercholesterolemia Start:01-Feb-2012 Instruction Type:Patient Education DISCONTINUED - Lipid Panel ( [id number]) Indication:Hypercholesterolemia Start:01-Feb-2012 Instruction Type:Patient Education Patient Instructions Indication:Hypercholesterolemia Start:01-Feb-2012 Instruction Type:Provider Instructions for Treatment [facility] Work Phone: Instructions* Name Dates Details Patient Instructions Indication:Irritable bowel syndrome Start:03-Apr-2021 Instruction Type:Provider Instructions for Treatment How to Access Health Informa tion Online using Patient Portal and [employer]rd [employer] Apps Indication:Irritable bowel syndrome Start:03-Apr-2021 Instruction Type:Patient Education Patient Instructions Indication:BMI 33.0-33.9,adult Start:02-Dec-2020 Instruction Type:Provider Instructions for Treatment How to Access Health Informa tion Online using Patient Portal and [employer]rd [employer] Apps Indication:BMI 33.0-33.9,adult Start:02-Dec-2020 Instruction Type:Patient Education Patient Instructions Indication:BMI 32.0-32.9,adult Start:19-Jul-2020 Instruction Type:Provider Instructions for Treatment How to Access Health Informa tion Online using Patient Portal and [employer]rd [employer] Apps Indication:BMI 32.0-32.9,adult Start:19-Jul-2020 Instruction Type:Patient Education How to access health informa tion online Indication:Smoker Start:22-Dec-2019 Instruction Type:Patient Education How to access health informa tion online - Detail Indication:Smoker Start:22-Dec-2019 Instruction Type:Patient Education Patient Instructions Indication:Smoker Start:22-Dec-2019 Instruction Type:Provider Instructions for Treatment How to access health informa tion online Indication:Smoker Start:12-Sep-2019 Instruction Type:Patient Education How to access health informa tion online - Detail Indication:Smoker Start:12-Sep-2019 Instruction Type:Patient Education Patient Instructions Indication:Smoker Start:12-Sep-2019 Instruction Type:Provider Instructions for Treatment How to access health informa tion online Indication:BMI 32.0-32.9,adult Start:04-Sep-2019 Instruction Type:Patient Education How to access health informa tion online - Detail Indication:BMI 32.0-32.9,adult Start:04-Sep-2019 Instruction Type:Patient Education Patient Instructions Indication:BMI 32.0-32.9,adult Start:04-Sep-2019 Instruction Type:Provider Instructions for Treatment How to access health informa tion online Indication:Diarrhea Start:30-Aug-2019 Instruction Type:Patient Education How to access health informa tion online - Detail Indication:Diarrhea Start:30-Aug-2019 Instruction Type:Patient Education Patient Instructions Indication:Diarrhea Start:30-Aug-2019 Instruction Type:Provider Instructions for Treatment How to access health informa tion online Indication:Smoker Start:21-Jul-2019 Instruction Type:Patient Education How to access health informa tion online - Detail Indication:Smoker Start:21-Jul-2019 Instruction Type:Patient Education Patient Instructions Indication:Smoker Start:21-Jul-2019 Instruction Type:Provider Instructions for Treatment How to access health informa tion online Indication:Nausea and vomiting in adult Start:14-Mar-2019 Instruction Type:Patient Education How to access health informa tion online - Detail Indication:Nausea and vomiting in adult Start:14-Mar-2019 Instruction Type:Patient Education Patient Instructions Indication:BMI 33.0-33.9,adult Start:14-Mar-2019 Instruction Type:Provider Instructions for Treatment How to access health informa tion online Indication:Tobacco use Start:01-Feb-2018 Instruction Type:Patient Education How to access health informa tion online - Detail Indication:Tobacco use Start:01-Feb-2018 Instruction Type:Patient Education Patient Instructions Indication:Tobacco use Start:01-Feb-2018 Instruction Type:Provider Instructions for Treatment How to access health informa tion online Indication:BMI 33.0-33.9,adult Start:26-Jan-2018 Instruction Type:Patient Education How to access health informa tion online - Detail Indication:BMI 33.0-33.9,adult Start:26-Jan-2018 Instruction Type:Patient Education Patient Instructions Indication:BMI 33.0-33.9,adult Start:26-Jan-2018 Instruction Type:Provider Instructions for Treatment How to access health informa tion online Indication:Tobacco use Start:21-Jan-2018 Instruction Type:Patient Education How to access health informa tion online - Detail Indication:Tobacco use Start:21-Jan-2018 Instruction Type:Patient Education Patient Instructions Indication:Tobacco use Start:21-Jan-2018 Instruction Type:Provider Instructions for Treatment How to access health informa tion online Indication:BMI 31.0-31.9,adult Start:17-Jun-2017 Instruction Type:Patient Education How to access health informa tion online - Detail Indication:BMI 31.0-31.9,adult Start:17-Jun-2017 Instruction Type:Patient Education Patient Instructions Indication:Irritable bowel syndrome Start:17-Jun-2017 Instruction Type:Provider Instructions for Treatment How to access health informa tion online Indication:Hyperglyceridemia Start:04-Mar-2017 Instruction Type:Patient Education How to access health informa tion online - Detail Indication:Hyperglyceridemia Start:04-Mar-2017 Instruction Type:Patient Education Patient Instructions Indication:Hyperglyceridemia Start:04-Mar-2017 Instruction Type:Provider Instructions for Treatment How to access health informa tion online - Detail Indication:Tobacco use Start:25-Feb-2017 Instruction Type:Patient Education How to access health informa tion online Indication:Tobacco use Start:25-Feb-2017 Instruction Type:Patient Education Patient Instructions Indication:Tobacco use Start:25-Feb-2017 Instruction Type:Provider Instructions for Treatment How to access health informa tion online Indication:Tobacco use Start:24-Dec-2016 Instruction Type:Patient Education How to access health informa tion online - Detail Indication:Tobacco use Start:24-Dec-2016 Instruction Type:Patient Education Patient Instructions Indication:Tobacco use Start:24-Dec-2016 Instruction Type:Provider Instructions for Treatment How to access health informa tion online Indication:Tobacco use Start:04-Dec-2016 Instruction Type:Patient Education How to access health informa tion online - Detail Indication:Tobacco use Start:04-Dec-2016 Instruction Type:Patient Education Patient Instructions Indication:Tobacco use Start:04-Dec-2016 Instruction Type:Provider Instructions for Treatment How to access health informa tion online Indication:Tobacco use Start:03-Dec-2016 Instruction Type:Patient Education How to access health informa tion online - Detail Indication:Tobacco use Start:03-Dec-2016 Instruction Type:Patient Education Patient Instructions Indication:Tobacco use Start:03-Dec-2016 Instruction Type:Provider Instructions for Treatment How to access health informa tion online Indication:BMI 30.0-30.9,adult Start:28-Aug-2016 Instruction Type:Patient Education How to access health informa tion online - Detail Indication:BMI 30.0-30.9,adult Start:28-Aug-2016 Instruction Type:Patient Education Patient Instructions Indication:BMI 30.0-30.9,adult Start:28-Aug-2016 Instruction Type:Provider Instructions for Treatment How to access health informa tion online Indication:Intractable vomiting with nausea, unspecified vomiting type Start:05-May-2016 Instruction Type:Patient Education How to access health informa tion online - Detail Indication:Intractable vomiting with nausea, unspecified vomiting type Start:05-May-2016 Instruction Type:Patient Education Patient Instructions Indication:Intractable vomiting with nausea, unspecified vomiting type Start:05-May-2016 Instruction Type:Provider Instructions for Treatment How to access health informa tion online Indication:Tobacco use Start:10-Apr-2016 Instruction Type:Patient Education How to access health informa tion online - Detail Indication:Tobacco use Start:10-Apr-2016 Instruction Type:Patient Education Patient Instructions Indication:Tobacco use Start:10-Apr-2016 Instruction Type:Provider Instructions for Treatment How to access health informa tion online Indication:Dysuria Start:07-Apr-2016 Instruction Type:Patient Education How to access health informa tion online - Detail Indication:Dysuria Start:07-Apr-2016 Instruction Type:Patient Education Patient Instructions Indication:Dysuria Start:07-Apr-2016 Instruction Type:Provider Instructions for Treatment How to access health informa tion online Indication:UTI symptoms Start:02-Mar-2016 Instruction Type:Patient Education How to access health informa tion online - Detail Indication:UTI symptoms Start:02-Mar-2016 Instruction Type:Patient Education Patient Instructions Indication:UTI symptoms Start:02-Mar-2016 Instruction Type:Provider Instructions for Treatment How to access health informa tion online Indication:Hypercholesterolemia Start:14-Feb-2016 Instruction Type:Patient Education How to access health informa tion online - Detail Indication:Hypercholesterolemia Start:14-Feb-2016 Instruction Type:Patient Education Patient Instructions Indication:Hypercholesterolemia Start:14-Feb-2016 Instruction Type:Provider Instructions for Treatment Patient Instructions Indication:Irritable bowel syndrome Start:15-Aug-2015 Instruction Type:Provider Instructions for Treatment Patient Instructions Indication:Vitamin D deficiency Start:15-Aug-2015 Instruction Type:Provider Instructions for Treatment How to access health informa tion online Indication:Abnormal lung sounds Start:08-Aug-2015 Instruction Type:Patient Education How to access health informa tion online - Detail Indication:Abnormal lung sounds Start:08-Aug-2015 Instruction Type:Patient Education Patient Instructions Indication:Abnormal lung sounds Start:08-Aug-2015 Instruction Type:Provider Instructions for Treatment How to access health informa tion online Indication:Thrush, oral Start:24-Jul-2015 Instruction Type:Patient Education How to access health informa tion online - Detail Indication:Thrush, oral Start:24-Jul-2015 Instruction Type:Patient Education Patient Instructions Indication:Thrush, oral Start:24-Jul-2015 Instruction Type:Provider Instructions for Treatment How to access health informa tion online - Detail Indication:Headache Start:23-Apr-2015 Instruction Type:Patient Education How to access health informa tion online Indication:Headache Start:23-Apr-2015 Instruction Type:Patient Education Patient Instructions Indication:Headache Start:23-Apr-2015 Instruction Type:Provider Instructions for Treatment How to access health informa tion online Indication:Headache Start:09-Apr-2015 Instruction Type:Patient Education How to access health informa tion online - Detail Indication:Headache Start:09-Apr-2015 Instruction Type:Patient Education Patient Instructions Indication:Headache Start:09-Apr-2015 Instruction Type:Provider Instructions for Treatment How to access health informa tion online Indication:Anxiety Start:05-Apr-2015 Instruction Type:Patient Education How to access health informa tion online - Detail Indication:Anxiety Start:05-Apr-2015 Instruction Type:Patient Education Patient Instructions Indication:Anxiety Start:05-Apr-2015 Instruction Type:Provider Instructions for Treatment How to access health informa tion online Indication:Headache Start:08-Nov-2014 Instruction Type:Patient Education How to access health informa tion online - Detail Indication:Headache Start:08-Nov-2014 Instruction Type:Patient Education Patient Instructions Indication:Itchy eyes Start:08-Nov-2014 Instruction Type:Provider Instructions for Treatment How to access health informa tion online Indication:Myalgia Start:20-Feb-2014 Instruction Type:Patient Education How to access health informa tion online Indication:Hyperglyceridemia Start:05-Jan-2014 Instruction Type:Patient Education How to access health informa tion online - Detail Indication:Hyperglyceridemia Start:05-Jan-2014 Instruction Type:Patient Education Patient Instructions Indication:Hyperglyceridemia Start:05-Jan-2014 Instruction Type:Provider Instructions for Treatment Patient Instructions Indication:Medication side effect Start:10-Jul-2013 Instruction Type:Provider Instructions for Treatment Patient Instructions Indication:Stress reaction Start:15-Jun-2013 Instruction Type:Provider Instructions for Treatment Patient Instructions Indication:Nausea and vomiting Start:05-Jun-2013 Instruction Type:Provider Instructions for Treatment Patient Instructions Indication:VOLUME DEPLETION DISORDER; DEHYDRATION Start:02-May-2013 Instruction Type:Provider Instructions for Treatment Patient Instructions Indication:Anxiety Start:28-Apr-2013 Instruction Type:Provider Instructions for Treatment Patient Instructions Indication:Shoulder Pain Start:16-Feb-2013 Instruction Type:Provider Instructions for Treatment Patient Instructions Indication:Hyperglyceridemia Start:06-Oct-2012 Instruction Type:Provider Instructions for Treatment Patient Instructions Indication:Hypercholesterolemia Start:10-May-2012 Instruction Type:Provider Instructions for Treatment DISCONTINUED - Renal functio n Panel ([id number]) Indication:Hypercholesterolemia Start:01-Feb-2012 Instruction Type:Patient Education DISCONTINUED - Lipid Panel ( [id number]) Indication:Hypercholesterolemia Start:01-Feb-2012 Instruction Type:Patient Education Patient Instructions Indication:Hypercholesterolemia Start:01-Feb-2012 Instruction Type:Provider Instructions for Treatment [facility] Work Phone: Instructions* Name Dates Details Patient Instructions Indication:Smoker Start:13-Mar-2022 Instruction Type:Provider Instructions for Treatment How to Access Health Informa tion Online using Patient Portal and [employer] Apps Indication:Smoker Start:13-Mar-2022 Instruction Type:Patient Education Patient Instructions Indication:Irritable bowel syndrome Start:03-Apr-2021 Instruction Type:Provider Instructions for Treatment How to Access Health Informa tion Online using Patient Portal and [employer] Apps Indication:Irritable bowel syndrome Start:03-Apr-2021 Instruction Type:Patient Education Patient Instructions Indication:BMI 33.0-33.9,adult Start:02-Dec-2020 Instruction Type:Provider Instructions for Treatment How to Access Health Informa tion Online using Patient Portal and [employer] Apps Indication:BMI 33.0-33.9,adult Start:02-Dec-2020 Instruction Type:Patient Education Patient Instructions Indication:BMI 32.0-32.9,adult Start:19-Jul-2020 Instruction Type:Provider Instructions for Treatment How to Access Health Informa tion Online using Patient Portal and [employer] Apps Indication:BMI 32.0-32.9,adult Start:19-Jul-2020 Instruction Type:Patient Education How to access health informa tion online Indication:Smoker Start:22-Dec-2019 Instruction Type:Patient Education How to access health informa tion online - Detail Indication:Smoker Start:22-Dec-2019 Instruction Type:Patient Education Patient Instructions Indication:Smoker Start:22-Dec-2019 Instruction Type:Provider Instructions for Treatment How to access health informa tion online Indication:Smoker Start:12-Sep-2019 Instruction Type:Patient Education How to access health informa tion online - Detail Indication:Smoker Start:12-Sep-2019 Instruction Type:Patient Education Patient Instructions Indication:Smoker Start:12-Sep-2019 Instruction Type:Provider Instructions for Treatment How to access health informa tion online Indication:BMI 32.0-32.9,adult Start:04-Sep-2019 Instruction Type:Patient Education How to access health informa tion online - Detail Indication:BMI 32.0-32.9,adult Start:04-Sep-2019 Instruction Type:Patient Education Patient Instructions Indication:BMI 32.0-32.9,adult Start:04-Sep-2019 Instruction Type:Provider Instructions for Treatment How to access health informa tion online Indication:Diarrhea Start:30-Aug-2019 Instruction Type:Patient Education How to access health informa tion online - Detail Indication:Diarrhea Start:30-Aug-2019 Instruction Type:Patient Education Patient Instructions Indication:Diarrhea Start:30-Aug-2019 Instruction Type:Provider Instructions for Treatment How to access health informa tion online Indication:Smoker Start:21-Jul-2019 Instruction Type:Patient Education How to access health informa tion online - Detail Indication:Smoker Start:21-Jul-2019 Instruction Type:Patient Education Patient Instructions Indication:Smoker Start:21-Jul-2019 Instruction Type:Provider Instructions for Treatment How to access health informa tion online Indication:Nausea and vomiting in adult Start:14-Mar-2019 Instruction Type:Patient Education How to access health informa tion online - Detail Indication:Nausea and vomiting in adult Start:14-Mar-2019 Instruction Type:Patient Education Patient Instructions Indication:BMI 33.0-33.9,adult Start:14-Mar-2019 Instruction Type:Provider Instructions for Treatment How to access health informa tion online Indication:Tobacco use Start:01-Feb-2018 Instruction Type:Patient Education How to access health informa tion online - Detail Indication:Tobacco use Start:01-Feb-2018 Instruction Type:Patient Education Patient Instructions Indication:Tobacco use Start:01-Feb-2018 Instruction Type:Provider Instructions for Treatment How to access health informa tion online Indication:BMI 33.0-33.9,adult Start:26-Jan-2018 Instruction Type:Patient Education How to access health informa tion online - Detail Indication:BMI 33.0-33.9,adult Start:26-Jan-2018 Instruction Type:Patient Education Patient Instructions Indication:BMI 33.0-33.9,adult Start:26-Jan-2018 Instruction Type:Provider Instructions for Treatment How to access health informa tion online Indication:Tobacco use Start:21-Jan-2018 Instruction Type:Patient Education How to access health informa tion online - Detail Indication:Tobacco use Start:21-Jan-2018 Instruction Type:Patient Education Patient Instructions Indication:Tobacco use Start:21-Jan-2018 Instruction Type:Provider Instructions for Treatment How to access health informa tion online Indication:BMI 31.0-31.9,adult Start:17-Jun-2017 Instruction Type:Patient Education How to access health informa tion online - Detail Indication:BMI 31.0-31.9,adult Start:17-Jun-2017 Instruction Type:Patient Education Patient Instructions Indication:Irritable bowel syndrome Start:17-Jun-2017 Instruction Type:Provider Instructions for Treatment How to access health informa tion online Indication:Hyperglyceridemia Start:04-Mar-2017 Instruction Type:Patient Education How to access health informa tion online - Detail Indication:Hyperglyceridemia Start:04-Mar-2017 Instruction Type:Patient Education Patient Instructions Indication:Hyperglyceridemia Start:04-Mar-2017 Instruction Type:Provider Instructions for Treatment How to access health informa tion online - Detail Indication:Tobacco use Start:25-Feb-2017 Instruction Type:Patient Education How to access health informa tion online Indication:Tobacco use Start:25-Feb-2017 Instruction Type:Patient Education Patient Instructions Indication:Tobacco use Start:25-Feb-2017 Instruction Type:Provider Instructions for Treatment How to access health informa tion online Indication:Tobacco use Start:24-Dec-2016 Instruction Type:Patient Education How to access health informa tion online - Detail Indication:Tobacco use Start:24-Dec-2016 Instruction Type:Patient Education Patient Instructions Indication:Tobacco use Start:24-Dec-2016 Instruction Type:Provider Instructions for Treatment How to access health informa tion online Indication:Tobacco use Start:04-Dec-2016 Instruction Type:Patient Education How to access health informa tion online - Detail Indication:Tobacco use Start:04-Dec-2016 Instruction Type:Patient Education Patient Instructions Indication:Tobacco use Start:04-Dec-2016 Instruction Type:Provider Instructions for Treatment How to access health informa tion online Indication:Tobacco use Start:03-Dec-2016 Instruction Type:Patient Education How to access health informa tion online - Detail Indication:Tobacco use Start:03-Dec-2016 Instruction Type:Patient Education Patient Instructions Indication:Tobacco use Start:03-Dec-2016 Instruction Type:Provider Instructions for Treatment How to access health informa tion online Indication:BMI 30.0-30.9,adult Start:28-Aug-2016 Instruction Type:Patient Education How to access health informa tion online - Detail Indication:BMI 30.0-30.9,adult Start:28-Aug-2016 Instruction Type:Patient Education Patient Instructions Indication:BMI 30.0-30.9,adult Start:28-Aug-2016 Instruction Type:Provider Instructions for Treatment How to access health informa tion online Indication:Intractable vomiting with nausea, unspecified vomiting type Start:05-May-2016 Instruction Type:Patient Education How to access health informa tion online - Detail Indication:Intractable vomiting with nausea, unspecified vomiting type Start:05-May-2016 Instruction Type:Patient Education Patient Instructions Indication:Intractable vomiting with nausea, unspecified vomiting type Start:05-May-2016 Instruction Type:Provider Instructions for Treatment How to access health informa tion online Indication:Tobacco use Start:10-Apr-2016 Instruction Type:Patient Education How to access health informa tion online - Detail Indication:Tobacco use Start:10-Apr-2016 Instruction Type:Patient Education Patient Instructions Indication:Tobacco use Start:10-Apr-2016 Instruction Type:Provider Instructions for Treatment How to access health informa tion online Indication:Dysuria Start:07-Apr-2016 Instruction Type:Patient Education How to access health informa tion online - Detail Indication:Dysuria Start:07-Apr-2016 Instruction Type:Patient Education Patient Instructions Indication:Dysuria Start:07-Apr-2016 Instruction Type:Provider Instructions for Treatment How to access health informa tion online Indication:UTI symptoms Start:02-Mar-2016 Instruction Type:Patient Education How to access health informa tion online - Detail Indication:UTI symptoms Start:02-Mar-2016 Instruction Type:Patient Education Patient Instructions Indication:UTI symptoms Start:02-Mar-2016 Instruction Type:Provider Instructions for Treatment How to access health informa tion online Indication:Hypercholesterolemia Start:14-Feb-2016 Instruction Type:Patient Education How to access health informa tion online - Detail Indication:Hypercholesterolemia Start:14-Feb-2016 Instruction Type:Patient Education Patient Instructions Indication:Hypercholesterolemia Start:14-Feb-2016 Instruction Type:Provider Instructions for Treatment Patient Instructions Indication:Irritable bowel syndrome Start:15-Aug-2015 Instruction Type:Provider Instructions for Treatment Patient Instructions Indication:Vitamin D deficiency Start:15-Aug-2015 Instruction Type:Provider Instructions for Treatment How to access health informa tion online Indication:Abnormal lung sounds Start:08-Aug-2015 Instruction Type:Patient Education How to access health informa tion online - Detail Indication:Abnormal lung sounds Start:08-Aug-2015 Instruction Type:Patient Education Patient Instructions Indication:Abnormal lung sounds Start:08-Aug-2015 Instruction Type:Provider Instructions for Treatment How to access health informa tion online Indication:Thrush, oral Start:24-Jul-2015 Instruction Type:Patient Education How to access health informa tion online - Detail Indication:Thrush, oral Start:24-Jul-2015 Instruction Type:Patient Education Patient Instructions Indication:Thrush, oral Start:24-Jul-2015 Instruction Type:Provider Instructions for Treatment How to access health informa tion online - Detail Indication:Headache Start:23-Apr-2015 Instruction Type:Patient Education How to access health informa tion online Indication:Headache Start:23-Apr-2015 Instruction Type:Patient Education Patient Instructions Indication:Headache Start:23-Apr-2015 Instruction Type:Provider Instructions for Treatment How to access health informa tion online Indication:Headache Start:09-Apr-2015 Instruction Type:Patient Education How to access health informa tion online - Detail Indication:Headache Start:09-Apr-2015 Instruction Type:Patient Education Patient Instructions Indication:Headache Start:09-Apr-2015 Instruction Type:Provider Instructions for Treatment How to access health informa tion online Indication:Anxiety Start:05-Apr-2015 Instruction Type:Patient Education How to access health informa tion online - Detail Indication:Anxiety Start:05-Apr-2015 Instruction Type:Patient Education Patient Instructions Indication:Anxiety Start:05-Apr-2015 Instruction Type:Provider Instructions for Treatment How to access health informa tion online Indication:Headache Start:08-Nov-2014 Instruction Type:Patient Education How to access health informa tion online - Detail Indication:Headache Start:08-Nov-2014 Instruction Type:Patient Education Patient Instructions Indication:Itchy eyes Start:08-Nov-2014 Instruction Type:Provider Instructions for Treatment How to access health informa tion online Indication:Myalgia Start:20-Feb-2014 Instruction Type:Patient Education How to access health informa tion online Indication:Hyperglyceridemia Start:05-Jan-2014 Instruction Type:Patient Education How to access health informa tion online - Detail Indication:Hyperglyceridemia Start:05-Jan-2014 Instruction Type:Patient Education Patient Instructions Indication:Hyperglyceridemia Start:05-Jan-2014 Instruction Type:Provider Instructions for Treatment Patient Instructions Indication:Medication side effect Start:10-Jul-2013 Instruction Type:Provider Instructions for Treatment Patient Instructions Indication:Stress reaction Start:15-Jun-2013 Instruction Type:Provider Instructions for Treatment Patient Instructions Indication:Nausea and vomiting Start:05-Jun-2013 Instruction Type:Provider Instructions for Treatment Patient Instructions Indication:VOLUME DEPLETION DISORDER; DEHYDRATION Start:02-May-2013 Instruction Type:Provider Instructions for Treatment Patient Instructions Indication:Anxiety Start:28-Apr-2013 Instruction Type:Provider Instructions for Treatment Patient Instructions Indication:Shoulder Pain Start:16-Feb-2013 Instruction Type:Provider Instructions for Treatment Patient Instructions Indication:Hyperglyceridemia Start:06-Oct-2012 Instruction Type:Provider Instructions for Treatment Patient Instructions Indication:Hypercholesterolemia Start:10-May-2012 Instruction Type:Provider Instructions for Treatment DISCONTINUED - Renal functio n Panel ([id number]) Indication:Hypercholesterolemia Start:01-Feb-2012 Instruction Type:Patient Education DISCONTINUED - Lipid Panel ( [id number]) Indication:Hypercholesterolemia Start:01-Feb-2012 Instruction Type:Patient Education Patient Instructions Indication:Hypercholesterolemia Start:01-Feb-2012 Instruction Type:Provider Instructions for Treatment [facility] Work Phone: Instructions* Name Dates Details Patient Instructions Indication:Smoker Start:13-Mar-2022 Instruction Type:Provider Instructions for Treatment How to Access Health Informa tion Online using Patient Portal and [employer] Apps Indication:Smoker Start:13-Mar-2022 Instruction Type:Patient Education Patient Instructions Indication:Irritable bowel syndrome Start:03-Apr-2021 Instruction Type:Provider Instructions for Treatment How to Access Health Informa tion Online using Patient Portal and [employer] Apps Indication:Irritable bowel syndrome Start:03-Apr-2021 Instruction Type:Patient Education Patient Instructions Indication:BMI 33.0-33.9,adult Start:02-Dec-2020 Instruction Type:Provider Instructions for Treatment How to Access Health Informa tion Online using Patient Portal and [employer] Apps Indication:BMI 33.0-33.9,adult Start:02-Dec-2020 Instruction Type:Patient Education Patient Instructions Indication:BMI 32.0-32.9,adult Start:19-Jul-2020 Instruction Type:Provider Instructions for Treatment How to Access Health Informa tion Online using Patient Portal and [employer] Apps Indication:BMI 32.0-32.9,adult Start:19-Jul-2020 Instruction Type:Patient Education How to access health informa tion online Indication:Smoker Start:22-Dec-2019 Instruction Type:Patient Education How to access health informa tion online - Detail Indication:Smoker Start:22-Dec-2019 Instruction Type:Patient Education Patient Instructions Indication:Smoker Start:22-Dec-2019 Instruction Type:Provider Instructions for Treatment How to access health informa tion online Indication:Smoker Start:12-Sep-2019 Instruction Type:Patient Education How to access health informa tion online - Detail Indication:Smoker Start:12-Sep-2019 Instruction Type:Patient Education Patient Instructions Indication:Smoker Start:12-Sep-2019 Instruction Type:Provider Instructions for Treatment How to access health informa tion online Indication:BMI 32.0-32.9,adult Start:04-Sep-2019 Instruction Type:Patient Education How to access health informa tion online - Detail Indication:BMI 32.0-32.9,adult Start:04-Sep-2019 Instruction Type:Patient Education Patient Instructions Indication:BMI 32.0-32.9,adult Start:04-Sep-2019 Instruction Type:Provider Instructions for Treatment How to access health informa tion online Indication:Diarrhea Start:30-Aug-2019 Instruction Type:Patient Education How to access health informa tion online - Detail Indication:Diarrhea Start:30-Aug-2019 Instruction Type:Patient Education Patient Instructions Indication:Diarrhea Start:30-Aug-2019 Instruction Type:Provider Instructions for Treatment How to access health informa tion online Indication:Smoker Start:21-Jul-2019 Instruction Type:Patient Education How to access health informa tion online - Detail Indication:Smoker Start:21-Jul-2019 Instruction Type:Patient Education Patient Instructions Indication:Smoker Start:21-Jul-2019 Instruction Type:Provider Instructions for Treatment How to access health informa tion online Indication:Nausea and vomiting in adult Start:14-Mar-2019 Instruction Type:Patient Education How to access health informa tion online - Detail Indication:Nausea and vomiting in adult Start:14-Mar-2019 Instruction Type:Patient Education Patient Instructions Indication:BMI 33.0-33.9,adult Start:14-Mar-2019 Instruction Type:Provider Instructions for Treatment How to access health informa tion online Indication:Tobacco use Start:01-Feb-2018 Instruction Type:Patient Education How to access health informa tion online - Detail Indication:Tobacco use Start:01-Feb-2018 Instruction Type:Patient Education Patient Instructions Indication:Tobacco use Start:01-Feb-2018 Instruction Type:Provider Instructions for Treatment How to access health informa tion online Indication:BMI 33.0-33.9,adult Start:26-Jan-2018 Instruction Type:Patient Education How to access health informa tion online - Detail Indication:BMI 33.0-33.9,adult Start:26-Jan-2018 Instruction Type:Patient Education Patient Instructions Indication:BMI 33.0-33.9,adult Start:26-Jan-2018 Instruction Type:Provider Instructions for Treatment How to access health informa tion online Indication:Tobacco use Start:21-Jan-2018 Instruction Type:Patient Education How to access health informa tion online - Detail Indication:Tobacco use Start:21-Jan-2018 Instruction Type:Patient Education Patient Instructions Indication:Tobacco use Start:21-Jan-2018 Instruction Type:Provider Instructions for Treatment How to access health informa tion online Indication:BMI 31.0-31.9,adult Start:17-Jun-2017 Instruction Type:Patient Education How to access health informa tion online - Detail Indication:BMI 31.0-31.9,adult Start:17-Jun-2017 Instruction Type:Patient Education Patient Instructions Indication:Irritable bowel syndrome Start:17-Jun-2017 Instruction Type:Provider Instructions for Treatment How to access health informa tion online Indication:Hyperglyceridemia Start:04-Mar-2017 Instruction Type:Patient Education How to access health informa tion online - Detail Indication:Hyperglyceridemia Start:04-Mar-2017 Instruction Type:Patient Education Patient Instructions Indication:Hyperglyceridemia Start:04-Mar-2017 Instruction Type:Provider Instructions for Treatment How to access health informa tion online - Detail Indication:Tobacco use Start:25-Feb-2017 Instruction Type:Patient Education How to access health informa tion online Indication:Tobacco use Start:25-Feb-2017 Instruction Type:Patient Education Patient Instructions Indication:Tobacco use Start:25-Feb-2017 Instruction Type:Provider Instructions for Treatment How to access health informa tion online Indication:Tobacco use Start:24-Dec-2016 Instruction Type:Patient Education How to access health informa tion online - Detail Indication:Tobacco use Start:24-Dec-2016 Instruction Type:Patient Education Patient Instructions Indication:Tobacco use Start:24-Dec-2016 Instruction Type:Provider Instructions for Treatment How to access health informa tion online Indication:Tobacco use Start:04-Dec-2016 Instruction Type:Patient Education How to access health informa tion online - Detail Indication:Tobacco use Start:04-Dec-2016 Instruction Type:Patient Education Patient Instructions Indication:Tobacco use Start:04-Dec-2016 Instruction Type:Provider Instructions for Treatment How to access health informa tion online Indication:Tobacco use Start:03-Dec-2016 Instruction Type:Patient Education How to access health informa tion online - Detail Indication:Tobacco use Start:03-Dec-2016 Instruction Type:Patient Education Patient Instructions Indication:Tobacco use Start:03-Dec-2016 Instruction Type:Provider Instructions for Treatment How to access health informa tion online Indication:BMI 30.0-30.9,adult Start:28-Aug-2016 Instruction Type:Patient Education How to access health informa tion online - Detail Indication:BMI 30.0-30.9,adult Start:28-Aug-2016 Instruction Type:Patient Education Patient Instructions Indication:BMI 30.0-30.9,adult Start:28-Aug-2016 Instruction Type:Provider Instructions for Treatment How to access health informa tion online Indication:Intractable vomiting with nausea, unspecified vomiting type Start:05-May-2016 Instruction Type:Patient Education How to access health informa tion online - Detail Indication:Intractable vomiting with nausea, unspecified vomiting type Start:05-May-2016 Instruction Type:Patient Education Patient Instructions Indication:Intractable vomiting with nausea, unspecified vomiting type Start:05-May-2016 Instruction Type:Provider Instructions for Treatment How to access health informa tion online Indication:Tobacco use Start:10-Apr-2016 Instruction Type:Patient Education How to access health informa tion online - Detail Indication:Tobacco use Start:10-Apr-2016 Instruction Type:Patient Education Patient Instructions Indication:Tobacco use Start:10-Apr-2016 Instruction Type:Provider Instructions for Treatment How to access health informa tion online Indication:Dysuria Start:07-Apr-2016 Instruction Type:Patient Education How to access health informa tion online - Detail Indication:Dysuria Start:07-Apr-2016 Instruction Type:Patient Education Patient Instructions Indication:Dysuria Start:07-Apr-2016 Instruction Type:Provider Instructions for Treatment How to access health informa tion online Indication:UTI symptoms Start:02-Mar-2016 Instruction Type:Patient Education How to access health informa tion online - Detail Indication:UTI symptoms Start:02-Mar-2016 Instruction Type:Patient Education Patient Instructions Indication:UTI symptoms Start:02-Mar-2016 Instruction Type:Provider Instructions for Treatment How to access health informa tion online Indication:Hypercholesterolemia Start:14-Feb-2016 Instruction Type:Patient Education How to access health informa tion online - Detail Indication:Hypercholesterolemia Start:14-Feb-2016 Instruction Type:Patient Education Patient Instructions Indication:Hypercholesterolemia Start:14-Feb-2016 Instruction Type:Provider Instructions for Treatment Patient Instructions Indication:Irritable bowel syndrome Start:15-Aug-2015 Instruction Type:Provider Instructions for Treatment Patient Instructions Indication:Vitamin D deficiency Start:15-Aug-2015 Instruction Type:Provider Instructions for Treatment How to access health informa tion online Indication:Abnormal lung sounds Start:08-Aug-2015 Instruction Type:Patient Education How to access health informa tion online - Detail Indication:Abnormal lung sounds Start:08-Aug-2015 Instruction Type:Patient Education Patient Instructions Indication:Abnormal lung sounds Start:08-Aug-2015 Instruction Type:Provider Instructions for Treatment How to access health informa tion online Indication:Thrush, oral Start:24-Jul-2015 Instruction Type:Patient Education How to access health informa tion online - Detail Indication:Thrush, oral Start:24-Jul-2015 Instruction Type:Patient Education Patient Instructions Indication:Thrush, oral Start:24-Jul-2015 Instruction Type:Provider Instructions for Treatment How to access health informa tion online - Detail Indication:Headache Start:23-Apr-2015 Instruction Type:Patient Education How to access health informa tion online Indication:Headache Start:23-Apr-2015 Instruction Type:Patient Education Patient Instructions Indication:Headache Start:23-Apr-2015 Instruction Type:Provider Instructions for Treatment How to access health informa tion online Indication:Headache Start:09-Apr-2015 Instruction Type:Patient Education How to access health informa tion online - Detail Indication:Headache Start:09-Apr-2015 Instruction Type:Patient Education Patient Instructions Indication:Headache Start:09-Apr-2015 Instruction Type:Provider Instructions for Treatment How to access health informa tion online Indication:Anxiety Start:05-Apr-2015 Instruction Type:Patient Education How to access health informa tion online - Detail Indication:Anxiety Start:05-Apr-2015 Instruction Type:Patient Education Patient Instructions Indication:Anxiety Start:05-Apr-2015 Instruction Type:Provider Instructions for Treatment How to access health informa tion online Indication:Headache Start:08-Nov-2014 Instruction Type:Patient Education How to access health informa tion online - Detail Indication:Headache Start:08-Nov-2014 Instruction Type:Patient Education Patient Instructions Indication:Itchy eyes Start:08-Nov-2014 Instruction Type:Provider Instructions for Treatment How to access health informa tion online Indication:Myalgia Start:20-Feb-2014 Instruction Type:Patient Education How to access health informa tion online Indication:Hyperglyceridemia Start:05-Jan-2014 Instruction Type:Patient Education How to access health informa tion online - Detail Indication:Hyperglyceridemia Start:05-Jan-2014 Instruction Type:Patient Education Patient Instructions Indication:Hyperglyceridemia Start:05-Jan-2014 Instruction Type:Provider Instructions for Treatment Patient Instructions Indication:Medication side effect Start:10-Jul-2013 Instruction Type:Provider Instructions for Treatment Patient Instructions Indication:Stress reaction Start:15-Jun-2013 Instruction Type:Provider Instructions for Treatment Patient Instructions Indication:Nausea and vomiting Start:05-Jun-2013 Instruction Type:Provider Instructions for Treatment Patient Instructions Indication:VOLUME DEPLETION DISORDER; DEHYDRATION Start:02-May-2013 Instruction Type:Provider Instructions for Treatment Patient Instructions Indication:Anxiety Start:28-Apr-2013 Instruction Type:Provider Instructions for Treatment Patient Instructions Indication:Shoulder Pain Start:16-Feb-2013 Instruction Type:Provider Instructions for Treatment Patient Instructions Indication:Hyperglyceridemia Start:06-Oct-2012 Instruction Type:Provider Instructions for Treatment Patient Instructions Indication:Hypercholesterolemia Start:10-May-2012 Instruction Type:Provider Instructions for Treatment DISCONTINUED - Renal functio n Panel (16668) Indication:Hypercholesterolemia Start:01-Feb-2012 Instruction Type:Patient Education DISCONTINUED - Lipid Panel ( [id number]) Indication:Hypercholesterolemia Start:01-Feb-2012 Instruction Type:Patient Education Patient Instructions Indication:Hypercholesterolemia Start:01-Feb-2012 Instruction Type:Provider Instructions for Treatment [facility] Work Phone: Instructions* Name Dates Details Patient Instructions Indication:Smoker Start:03-Apr-2022 Instruction Type:Provider Instructions for Treatment How to Access Health Informa tion Online using Patient Portal and [employer]rd [employer] Apps Indication:Smoker Start:03-Apr-2022 Instruction Type:Patient Education Patient Instructions Indication:Smoker Start:13-Mar-2022 Instruction Type:Provider Instructions for Treatment How to Access Health Informa tion Online using Patient Portal and [employer]rd [employer] Apps Indication:Smoker Start:13-Mar-2022 Instruction Type:Patient Education Patient Instructions Indication:Irritable bowel syndrome Start:03-Apr-2021 Instruction Type:Provider Instructions for Treatment How to Access Health Informa tion Online using Patient Portal and [employer]rd [employer] Apps Indication:Irritable bowel syndrome Start:03-Apr-2021 Instruction Type:Patient Education Patient Instructions Indication:BMI 33.0-33.9,adult Start:02-Dec-2020 Instruction Type:Provider Instructions for Treatment How to Access Health Informa tion Online using Patient Portal and [employer]rd [employer] Apps Indication:BMI 33.0-33.9,adult Start:02-Dec-2020 Instruction Type:Patient Education Patient Instructions Indication:BMI 32.0-32.9,adult Start:19-Jul-2020 Instruction Type:Provider Instructions for Treatment How to Access Health Informa tion Online using Patient Portal and [employer]rd [employer] Apps Indication:BMI 32.0-32.9,adult Start:19-Jul-2020 Instruction Type:Patient Education How to access health informa tion online Indication:Smoker Start:22-Dec-2019 Instruction Type:Patient Education How to access health informa tion online - Detail Indication:Smoker Start:22-Dec-2019 Instruction Type:Patient Education Patient Instructions Indication:Smoker Start:22-Dec-2019 Instruction Type:Provider Instructions for Treatment How to access health informa tion online Indication:Smoker Start:12-Sep-2019 Instruction Type:Patient Education How to access health informa tion online - Detail Indication:Smoker Start:12-Sep-2019 Instruction Type:Patient Education Patient Instructions Indication:Smoker Start:12-Sep-2019 Instruction Type:Provider Instructions for Treatment How to access health informa tion online Indication:BMI 32.0-32.9,adult Start:04-Sep-2019 Instruction Type:Patient Education How to access health informa tion online - Detail Indication:BMI 32.0-32.9,adult Start:04-Sep-2019 Instruction Type:Patient Education Patient Instructions Indication:BMI 32.0-32.9,adult Start:04-Sep-2019 Instruction Type:Provider Instructions for Treatment How to access health informa tion online Indication:Diarrhea Start:30-Aug-2019 Instruction Type:Patient Education How to access health informa tion online - Detail Indication:Diarrhea Start:30-Aug-2019 Instruction Type:Patient Education Patient Instructions Indication:Diarrhea Start:30-Aug-2019 Instruction Type:Provider Instructions for Treatment How to access health informa tion online Indication:Smoker Start:21-Jul-2019 Instruction Type:Patient Education How to access health informa tion online - Detail Indication:Smoker Start:21-Jul-2019 Instruction Type:Patient Education Patient Instructions Indication:Smoker Start:21-Jul-2019 Instruction Type:Provider Instructions for Treatment How to access health informa tion online Indication:Nausea and vomiting in adult Start:14-Mar-2019 Instruction Type:Patient Education How to access health informa tion online - Detail Indication:Nausea and vomiting in adult Start:14-Mar-2019 Instruction Type:Patient Education Patient Instructions Indication:BMI 33.0-33.9,adult Start:14-Mar-2019 Instruction Type:Provider Instructions for Treatment How to access health informa tion online Indication:Tobacco use Start:01-Feb-2018 Instruction Type:Patient Education How to access health informa tion online - Detail Indication:Tobacco use Start:01-Feb-2018 Instruction Type:Patient Education Patient Instructions Indication:Tobacco use Start:01-Feb-2018 Instruction Type:Provider Instructions for Treatment How to access health informa tion online Indication:BMI 33.0-33.9,adult Start:26-Jan-2018 Instruction Type:Patient Education How to access health informa tion online - Detail Indication:BMI 33.0-33.9,adult Start:26-Jan-2018 Instruction Type:Patient Education Patient Instructions Indication:BMI 33.0-33.9,adult Start:26-Jan-2018 Instruction Type:Provider Instructions for Treatment How to access health informa tion online Indication:Tobacco use Start:21-Jan-2018 Instruction Type:Patient Education How to access health informa tion online - Detail Indication:Tobacco use Start:21-Jan-2018 Instruction Type:Patient Education Patient Instructions Indication:Tobacco use Start:21-Jan-2018 Instruction Type:Provider Instructions for Treatment How to access health informa tion online Indication:BMI 31.0-31.9,adult Start:17-Jun-2017 Instruction Type:Patient Education How to access health informa tion online - Detail Indication:BMI 31.0-31.9,adult Start:17-Jun-2017 Instruction Type:Patient Education Patient Instructions Indication:Irritable bowel syndrome Start:17-Jun-2017 Instruction Type:Provider Instructions for Treatment How to access health informa tion online Indication:Hyperglyceridemia Start:04-Mar-2017 Instruction Type:Patient Education How to access health informa tion online - Detail Indication:Hyperglyceridemia Start:04-Mar-2017 Instruction Type:Patient Education Patient Instructions Indication:Hyperglyceridemia Start:04-Mar-2017 Instruction Type:Provider Instructions for Treatment How to access health informa tion online - Detail Indication:Tobacco use Start:25-Feb-2017 Instruction Type:Patient Education How to access health informa tion online Indication:Tobacco use Start:25-Feb-2017 Instruction Type:Patient Education Patient Instructions Indication:Tobacco use Start:25-Feb-2017 Instruction Type:Provider Instructions for Treatment How to access health informa tion online Indication:Tobacco use Start:24-Dec-2016 Instruction Type:Patient Education How to access health informa tion online - Detail Indication:Tobacco use Start:24-Dec-2016 Instruction Type:Patient Education Patient Instructions Indication:Tobacco use Start:24-Dec-2016 Instruction Type:Provider Instructions for Treatment How to access health informa tion online Indication:Tobacco use Start:04-Dec-2016 Instruction Type:Patient Education How to access health informa tion online - Detail Indication:Tobacco use Start:04-Dec-2016 Instruction Type:Patient Education Patient Instructions Indication:Tobacco use Start:04-Dec-2016 Instruction Type:Provider Instructions for Treatment How to access health informa tion online Indication:Tobacco use Start:03-Dec-2016 Instruction Type:Patient Education How to access health informa tion online - Detail Indication:Tobacco use Start:03-Dec-2016 Instruction Type:Patient Education Patient Instructions Indication:Tobacco use Start:03-Dec-2016 Instruction Type:Provider Instructions for Treatment How to access health informa tion online Indication:BMI 30.0-30.9,adult Start:28-Aug-2016 Instruction Type:Patient Education How to access health informa tion online - Detail Indication:BMI 30.0-30.9,adult Start:28-Aug-2016 Instruction Type:Patient Education Patient Instructions Indication:BMI 30.0-30.9,adult Start:28-Aug-2016 Instruction Type:Provider Instructions for Treatment How to access health informa tion online Indication:Intractable vomiting with nausea, unspecified vomiting type Start:05-May-2016 Instruction Type:Patient Education How to access health informa tion online - Detail Indication:Intractable vomiting with nausea, unspecified vomiting type Start:05-May-2016 Instruction Type:Patient Education Patient Instructions Indication:Intractable vomiting with nausea, unspecified vomiting type Start:05-May-2016 Instruction Type:Provider Instructions for Treatment How to access health informa tion online Indication:Tobacco use Start:10-Apr-2016 Instruction Type:Patient Education How to access health informa tion online - Detail Indication:Tobacco use Start:10-Apr-2016 Instruction Type:Patient Education Patient Instructions Indication:Tobacco use Start:10-Apr-2016 Instruction Type:Provider Instructions for Treatment How to access health informa tion online Indication:Dysuria Start:07-Apr-2016 Instruction Type:Patient Education How to access health informa tion online - Detail Indication:Dysuria Start:07-Apr-2016 Instruction Type:Patient Education Patient Instructions Indication:Dysuria Start:07-Apr-2016 Instruction Type:Provider Instructions for Treatment How to access health informa tion online Indication:UTI symptoms Start:02-Mar-2016 Instruction Type:Patient Education How to access health informa tion online - Detail Indication:UTI symptoms Start:02-Mar-2016 Instruction Type:Patient Education Patient Instructions Indication:UTI symptoms Start:02-Mar-2016 Instruction Type:Provider Instructions for Treatment How to access health informa tion online Indication:Hypercholesterolemia Start:14-Feb-2016 Instruction Type:Patient Education How to access health informa tion online - Detail Indication:Hypercholesterolemia Start:14-Feb-2016 Instruction Type:Patient Education Patient Instructions Indication:Hypercholesterolemia Start:14-Feb-2016 Instruction Type:Provider Instructions for Treatment Patient Instructions Indication:Irritable bowel syndrome Start:15-Aug-2015 Instruction Type:Provider Instructions for Treatment Patient Instructions Indication:Vitamin D deficiency Start:15-Aug-2015 Instruction Type:Provider Instructions for Treatment How to access health informa tion online Indication:Abnormal lung sounds Start:08-Aug-2015 Instruction Type:Patient Education How to access health informa tion online - Detail Indication:Abnormal lung sounds Start:08-Aug-2015 Instruction Type:Patient Education Patient Instructions Indication:Abnormal lung sounds Start:08-Aug-2015 Instruction Type:Provider Instructions for Treatment How to access health informa tion online Indication:Thrush, oral Start:24-Jul-2015 Instruction Type:Patient Education How to access health informa tion online - Detail Indication:Thrush, oral Start:24-Jul-2015 Instruction Type:Patient Education Patient Instructions Indication:Thrush, oral Start:24-Jul-2015 Instruction Type:Provider Instructions for Treatment How to access health informa tion online - Detail Indication:Headache Start:23-Apr-2015 Instruction Type:Patient Education How to access health informa tion online Indication:Headache Start:23-Apr-2015 Instruction Type:Patient Education Patient Instructions Indication:Headache Start:23-Apr-2015 Instruction Type:Provider Instructions for Treatment How to access health informa tion online Indication:Headache Start:09-Apr-2015 Instruction Type:Patient Education How to access health informa tion online - Detail Indication:Headache Start:09-Apr-2015 Instruction Type:Patient Education Patient Instructions Indication:Headache Start:09-Apr-2015 Instruction Type:Provider Instructions for Treatment How to access health informa tion online Indication:Anxiety Start:05-Apr-2015 Instruction Type:Patient Education How to access health informa tion online - Detail Indication:Anxiety Start:05-Apr-2015 Instruction Type:Patient Education Patient Instructions Indication:Anxiety Start:05-Apr-2015 Instruction Type:Provider Instructions for Treatment How to access health informa tion online Indication:Headache Start:08-Nov-2014 Instruction Type:Patient Education How to access health informa tion online - Detail Indication:Headache Start:08-Nov-2014 Instruction Type:Patient Education Patient Instructions Indication:Itchy eyes Start:08-Nov-2014 Instruction Type:Provider Instructions for Treatment How to access health informa tion online Indication:Myalgia Start:20-Feb-2014 Instruction Type:Patient Education How to access health informa tion online Indication:Hyperglyceridemia Start:05-Jan-2014 Instruction Type:Patient Education How to access health informa tion online - Detail Indication:Hyperglyceridemia Start:05-Jan-2014 Instruction Type:Patient Education Patient Instructions Indication:Hyperglyceridemia Start:05-Jan-2014 Instruction Type:Provider Instructions for Treatment Patient Instructions Indication:Medication side effect Start:10-Jul-2013 Instruction Type:Provider Instructions for Treatment Patient Instructions Indication:Stress reaction Start:15-Jun-2013 Instruction Type:Provider Instructions for Treatment Patient Instructions Indication:Nausea and vomiting Start:05-Jun-2013 Instruction Type:Provider Instructions for Treatment Patient Instructions Indication:VOLUME DEPLETION DISORDER; DEHYDRATION Start:02-May-2013 Instruction Type:Provider Instructions for Treatment Patient Instructions Indication:Anxiety Start:28-Apr-2013 Instruction Type:Provider Instructions for Treatment Patient Instructions Indication:Shoulder Pain Start:16-Feb-2013 Instruction Type:Provider Instructions for Treatment Patient Instructions Indication:Hyperglyceridemia Start:06-Oct-2012 Instruction Type:Provider Instructions for Treatment Patient Instructions Indication:Hypercholesterolemia Start:10-May-2012 Instruction Type:Provider Instructions for Treatment DISCONTINUED - Renal functio n Panel (88370) Indication:Hypercholesterolemia Start:01-Feb-2012 Instruction Type:Patient Education DISCONTINUED - Lipid Panel ( [id number]) Indication:Hypercholesterolemia Start:01-Feb-2012 Instruction Type:Patient Education Patient Instructions Indication:Hypercholesterolemia Start:01-Feb-2012 Instruction Type:Provider Instructions for Treatment [facility] Work Phone: Instructions* Name Dates Details How to Access Health Informa tion Online using Patient Portal and [employer] Apps Indication:Smoker Start:11-Sep-2022 Instruction Type:Patient Education Patient Instructions Indication:Smoker Start:11-Sep-2022 Instruction Type:Provider Instructions for Treatment Patient Instructions Indication:Smoker Start:03-Apr-2022 Instruction Type:Provider Instructions for Treatment How to Access Health Informa tion Online using Patient Portal and [employer]rd [employer] Apps Indication:Smoker Start:03-Apr-2022 Instruction Type:Patient Education Patient Instructions Indication:Smoker Start:13-Mar-2022 Instruction Type:Provider Instructions for Treatment How to Access Health Informa tion Online using Patient Portal and [employer]rd [employer] Apps Indication:Smoker Start:13-Mar-2022 Instruction Type:Patient Education Patient Instructions Indication:Irritable bowel syndrome Start:03-Apr-2021 Instruction Type:Provider Instructions for Treatment How to Access Health Informa tion Online using Patient Portal and [employer]rd [employer] Apps Indication:Irritable bowel syndrome Start:03-Apr-2021 Instruction Type:Patient Education Patient Instructions Indication:BMI 33.0-33.9,adult Start:02-Dec-2020 Instruction Type:Provider Instructions for Treatment How to Access Health Informa tion Online using Patient Portal and [employer]rd [employer] Apps Indication:BMI 33.0-33.9,adult Start:02-Dec-2020 Instruction Type:Patient Education Patient Instructions Indication:BMI 32.0-32.9,adult Start:19-Jul-2020 Instruction Type:Provider Instructions for Treatment How to Access Health Informa tion Online using Patient Portal and [employer]rd [employer] Apps Indication:BMI 32.0-32.9,adult Start:19-Jul-2020 Instruction Type:Patient Education How to access health informa tion online Indication:Smoker Start:22-Dec-2019 Instruction Type:Patient Education How to access health informa tion online - Detail Indication:Smoker Start:22-Dec-2019 Instruction Type:Patient Education Patient Instructions Indication:Smoker Start:22-Dec-2019 Instruction Type:Provider Instructions for Treatment How to access health informa tion online Indication:Smoker Start:12-Sep-2019 Instruction Type:Patient Education How to access health informa tion online - Detail Indication:Smoker Start:12-Sep-2019 Instruction Type:Patient Education Patient Instructions Indication:Smoker Start:12-Sep-2019 Instruction Type:Provider Instructions for Treatment How to access health informa tion online Indication:BMI 32.0-32.9,adult Start:04-Sep-2019 Instruction Type:Patient Education How to access health informa tion online - Detail Indication:BMI 32.0-32.9,adult Start:04-Sep-2019 Instruction Type:Patient Education Patient Instructions Indication:BMI 32.0-32.9,adult Start:04-Sep-2019 Instruction Type:Provider Instructions for Treatment How to access health informa tion online Indication:Diarrhea Start:30-Aug-2019 Instruction Type:Patient Education How to access health informa tion online - Detail Indication:Diarrhea Start:30-Aug-2019 Instruction Type:Patient Education Patient Instructions Indication:Diarrhea Start:30-Aug-2019 Instruction Type:Provider Instructions for Treatment How to access health informa tion online Indication:Smoker Start:21-Jul-2019 Instruction Type:Patient Education How to access health informa tion online - Detail Indication:Smoker Start:21-Jul-2019 Instruction Type:Patient Education Patient Instructions Indication:Smoker Start:21-Jul-2019 Instruction Type:Provider Instructions for Treatment How to access health informa tion online Indication:Nausea and vomiting in adult Start:14-Mar-2019 Instruction Type:Patient Education How to access health informa tion online - Detail Indication:Nausea and vomiting in adult Start:14-Mar-2019 Instruction Type:Patient Education Patient Instructions Indication:BMI 33.0-33.9,adult Start:14-Mar-2019 Instruction Type:Provider Instructions for Treatment How to access health informa tion online Indication:Tobacco use Start:01-Feb-2018 Instruction Type:Patient Education How to access health informa tion online - Detail Indication:Tobacco use Start:01-Feb-2018 Instruction Type:Patient Education Patient Instructions Indication:Tobacco use Start:01-Feb-2018 Instruction Type:Provider Instructions for Treatment How to access health informa tion online Indication:BMI 33.0-33.9,adult Start:26-Jan-2018 Instruction Type:Patient Education How to access health informa tion online - Detail Indication:BMI 33.0-33.9,adult Start:26-Jan-2018 Instruction Type:Patient Education Patient Instructions Indication:BMI 33.0-33.9,adult Start:26-Jan-2018 Instruction Type:Provider Instructions for Treatment How to access health informa tion online Indication:Tobacco use Start:21-Jan-2018 Instruction Type:Patient Education How to access health informa tion online - Detail Indication:Tobacco use Start:21-Jan-2018 Instruction Type:Patient Education Patient Instructions Indication:Tobacco use Start:21-Jan-2018 Instruction Type:Provider Instructions for Treatment How to access health informa tion online Indication:BMI 31.0-31.9,adult Start:17-Jun-2017 Instruction Type:Patient Education How to access health informa tion online - Detail Indication:BMI 31.0-31.9,adult Start:17-Jun-2017 Instruction Type:Patient Education Patient Instructions Indication:Irritable bowel syndrome Start:17-Jun-2017 Instruction Type:Provider Instructions for Treatment How to access health informa tion online Indication:Hyperglyceridemia Start:04-Mar-2017 Instruction Type:Patient Education How to access health informa tion online - Detail Indication:Hyperglyceridemia Start:04-Mar-2017 Instruction Type:Patient Education Patient Instructions Indication:Hyperglyceridemia Start:04-Mar-2017 Instruction Type:Provider Instructions for Treatment How to access health informa tion online - Detail Indication:Tobacco use Start:25-Feb-2017 Instruction Type:Patient Education How to access health informa tion online Indication:Tobacco use Start:25-Feb-2017 Instruction Type:Patient Education Patient Instructions Indication:Tobacco use Start:25-Feb-2017 Instruction Type:Provider Instructions for Treatment How to access health informa tion online Indication:Tobacco use Start:24-Dec-2016 Instruction Type:Patient Education How to access health informa tion online - Detail Indication:Tobacco use Start:24-Dec-2016 Instruction Type:Patient Education Patient Instructions Indication:Tobacco use Start:24-Dec-2016 Instruction Type:Provider Instructions for Treatment How to access health informa tion online Indication:Tobacco use Start:04-Dec-2016 Instruction Type:Patient Education How to access health informa tion online - Detail Indication:Tobacco use Start:04-Dec-2016 Instruction Type:Patient Education Patient Instructions Indication:Tobacco use Start:04-Dec-2016 Instruction Type:Provider Instructions for Treatment How to access health informa tion online Indication:Tobacco use Start:03-Dec-2016 Instruction Type:Patient Education How to access health informa tion online - Detail Indication:Tobacco use Start:03-Dec-2016 Instruction Type:Patient Education Patient Instructions Indication:Tobacco use Start:03-Dec-2016 Instruction Type:Provider Instructions for Treatment How to access health informa tion online Indication:BMI 30.0-30.9,adult Start:28-Aug-2016 Instruction Type:Patient Education How to access health informa tion online - Detail Indication:BMI 30.0-30.9,adult Start:28-Aug-2016 Instruction Type:Patient Education Patient Instructions Indication:BMI 30.0-30.9,adult Start:28-Aug-2016 Instruction Type:Provider Instructions for Treatment How to access health informa tion online Indication:Intractable vomiting with nausea, unspecified vomiting type Start:05-May-2016 Instruction Type:Patient Education How to access health informa tion online - Detail Indication:Intractable vomiting with nausea, unspecified vomiting type Start:05-May-2016 Instruction Type:Patient Education Patient Instructions Indication:Intractable vomiting with nausea, unspecified vomiting type Start:05-May-2016 Instruction Type:Provider Instructions for Treatment How to access health informa tion online Indication:Tobacco use Start:10-Apr-2016 Instruction Type:Patient Education How to access health informa tion online - Detail Indication:Tobacco use Start:10-Apr-2016 Instruction Type:Patient Education Patient Instructions Indication:Tobacco use Start:10-Apr-2016 Instruction Type:Provider Instructions for Treatment How to access health informa tion online Indication:Dysuria Start:07-Apr-2016 Instruction Type:Patient Education How to access health informa tion online - Detail Indication:Dysuria Start:07-Apr-2016 Instruction Type:Patient Education Patient Instructions Indication:Dysuria Start:07-Apr-2016 Instruction Type:Provider Instructions for Treatment How to access health informa tion online Indication:UTI symptoms Start:02-Mar-2016 Instruction Type:Patient Education How to access health informa tion online - Detail Indication:UTI symptoms Start:02-Mar-2016 Instruction Type:Patient Education Patient Instructions Indication:UTI symptoms Start:02-Mar-2016 Instruction Type:Provider Instructions for Treatment How to access health informa tion online Indication:Hypercholesterolemia Start:14-Feb-2016 Instruction Type:Patient Education How to access health informa tion online - Detail Indication:Hypercholesterolemia Start:14-Feb-2016 Instruction Type:Patient Education Patient Instructions Indication:Hypercholesterolemia Start:14-Feb-2016 Instruction Type:Provider Instructions for Treatment Patient Instructions Indication:Irritable bowel syndrome Start:15-Aug-2015 Instruction Type:Provider Instructions for Treatment Patient Instructions Indication:Vitamin D deficiency Start:15-Aug-2015 Instruction Type:Provider Instructions for Treatment How to access health informa tion online Indication:Abnormal lung sounds Start:08-Aug-2015 Instruction Type:Patient Education How to access health informa tion online - Detail Indication:Abnormal lung sounds Start:08-Aug-2015 Instruction Type:Patient Education Patient Instructions Indication:Abnormal lung sounds Start:08-Aug-2015 Instruction Type:Provider Instructions for Treatment How to access health informa tion online Indication:Thrush, oral Start:24-Jul-2015 Instruction Type:Patient Education How to access health informa tion online - Detail Indication:Thrush, oral Start:24-Jul-2015 Instruction Type:Patient Education Patient Instructions Indication:Thrush, oral Start:24-Jul-2015 Instruction Type:Provider Instructions for Treatment How to access health informa tion online - Detail Indication:Headache Start:23-Apr-2015 Instruction Type:Patient Education How to access health informa tion online Indication:Headache Start:23-Apr-2015 Instruction Type:Patient Education Patient Instructions Indication:Headache Start:23-Apr-2015 Instruction Type:Provider Instructions for Treatment How to access health informa tion online Indication:Headache Start:09-Apr-2015 Instruction Type:Patient Education How to access health informa tion online - Detail Indication:Headache Start:09-Apr-2015 Instruction Type:Patient Education Patient Instructions Indication:Headache Start:09-Apr-2015 Instruction Type:Provider Instructions for Treatment How to access health informa tion online Indication:Anxiety Start:05-Apr-2015 Instruction Type:Patient Education How to access health informa tion online - Detail Indication:Anxiety Start:05-Apr-2015 Instruction Type:Patient Education Patient Instructions Indication:Anxiety Start:05-Apr-2015 Instruction Type:Provider Instructions for Treatment How to access health informa tion online Indication:Headache Start:08-Nov-2014 Instruction Type:Patient Education How to access health informa tion online - Detail Indication:Headache Start:08-Nov-2014 Instruction Type:Patient Education Patient Instructions Indication:Itchy eyes Start:08-Nov-2014 Instruction Type:Provider Instructions for Treatment How to access health informa tion online Indication:Myalgia Start:20-Feb-2014 Instruction Type:Patient Education How to access health informa tion online Indication:Hyperglyceridemia Start:05-Jan-2014 Instruction Type:Patient Education How to access health informa tion online - Detail Indication:Hyperglyceridemia Start:05-Jan-2014 Instruction Type:Patient Education Patient Instructions Indication:Hyperglyceridemia Start:05-Jan-2014 Instruction Type:Provider Instructions for Treatment Patient Instructions Indication:Medication side effect Start:10-Jul-2013 Instruction Type:Provider Instructions for Treatment Patient Instructions Indication:Stress reaction Start:15-Jun-2013 Instruction Type:Provider Instructions for Treatment Patient Instructions Indication:Nausea and vomiting Start:05-Jun-2013 Instruction Type:Provider Instructions for Treatment Patient Instructions Indication:VOLUME DEPLETION DISORDER; DEHYDRATION Start:02-May-2013 Instruction Type:Provider Instructions for Treatment Patient Instructions Indication:Anxiety Start:28-Apr-2013 Instruction Type:Provider Instructions for Treatment Patient Instructions Indication:Shoulder Pain Start:16-Feb-2013 Instruction Type:Provider Instructions for Treatment Patient Instructions Indication:Hyperglyceridemia Start:06-Oct-2012 Instruction Type:Provider Instructions for Treatment Patient Instructions Indication:Hypercholesterolemia Start:10-May-2012 Instruction Type:Provider Instructions for Treatment DISCONTINUED - Renal functio n Panel ([id number]) Indication:Hypercholesterolemia Start:01-Feb-2012 Instruction Type:Patient Education DISCONTINUED - Lipid Panel ( [id number]) Indication:Hypercholesterolemia Start:01-Feb-2012 Instruction Type:Patient Education Patient Instructions Indication:Hypercholesterolemia Start:01-Feb-2012 Instruction Type:Provider Instructions for Treatment [facility]; [facility] Work Phone: Instructions* Name Dates Details Patient Instructions Indication:Tobacco use Start:14-Jan-2023 Instruction Type:Provider Instructions for Treatment How to Access Health Informa tion Online using Patient Portal and [employer]rd [employer] Apps Indication:Tobacco use Start:14-Jan-2023 Instruction Type:Patient Education How to Access Health Informa tion Online using Patient Portal and [employer]rd [employer] Apps Indication:Smoker Start:11-Sep-2022 Instruction Type:Patient Education Patient Instructions Indication:Smoker Start:11-Sep-2022 Instruction Type:Provider Instructions for Treatment Patient Instructions Indication:Smoker Start:03-Apr-2022 Instruction Type:Provider Instructions for Treatment How to Access Health Informa tion Online using Patient Portal and [employer]rd [employer] Apps Indication:Smoker Start:03-Apr-2022 Instruction Type:Patient Education Patient Instructions Indication:Smoker Start:13-Mar-2022 Instruction Type:Provider Instructions for Treatment How to Access Health Informa tion Online using Patient Portal and [employer]rd [employer] Apps Indication:Smoker Start:13-Mar-2022 Instruction Type:Patient Education Patient Instructions Indication:Irritable bowel syndrome Start:03-Apr-2021 Instruction Type:Provider Instructions for Treatment How to Access Health Informa tion Online using Patient Portal and [employer]rd [employer] Apps Indication:Irritable bowel syndrome Start:03-Apr-2021 Instruction Type:Patient Education Patient Instructions Indication:BMI 33.0-33.9,adult Start:02-Dec-2020 Instruction Type:Provider Instructions for Treatment How to Access Health Informa tion Online using Patient Portal and [employer]rd [employer] Apps Indication:BMI 33.0-33.9,adult Start:02-Dec-2020 Instruction Type:Patient Education Patient Instructions Indication:BMI 32.0-32.9,adult Start:19-Jul-2020 Instruction Type:Provider Instructions for Treatment How to Access Health Informa tion Online using Patient Portal and [employer]rd [employer] Apps Indication:BMI 32.0-32.9,adult Start:19-Jul-2020 Instruction Type:Patient Education How to access health informa tion online Indication:Smoker Start:22-Dec-2019 Instruction Type:Patient Education How to access health informa tion online - Detail Indication:Smoker Start:22-Dec-2019 Instruction Type:Patient Education Patient Instructions Indication:Smoker Start:22-Dec-2019 Instruction Type:Provider Instructions for Treatment How to access health informa tion online Indication:Smoker Start:12-Sep-2019 Instruction Type:Patient Education How to access health informa tion online - Detail Indication:Smoker Start:12-Sep-2019 Instruction Type:Patient Education Patient Instructions Indication:Smoker Start:12-Sep-2019 Instruction Type:Provider Instructions for Treatment How to access health informa tion online Indication:BMI 32.0-32.9,adult Start:04-Sep-2019 Instruction Type:Patient Education How to access health informa tion online - Detail Indication:BMI 32.0-32.9,adult Start:04-Sep-2019 Instruction Type:Patient Education Patient Instructions Indication:BMI 32.0-32.9,adult Start:04-Sep-2019 Instruction Type:Provider Instructions for Treatment How to access health informa tion online Indication:Diarrhea Start:30-Aug-2019 Instruction Type:Patient Education How to access health informa tion online - Detail Indication:Diarrhea Start:30-Aug-2019 Instruction Type:Patient Education Patient Instructions Indication:Diarrhea Start:30-Aug-2019 Instruction Type:Provider Instructions for Treatment How to access health informa tion online Indication:Smoker Start:21-Jul-2019 Instruction Type:Patient Education How to access health informa tion online - Detail Indication:Smoker Start:21-Jul-2019 Instruction Type:Patient Education Patient Instructions Indication:Smoker Start:21-Jul-2019 Instruction Type:Provider Instructions for Treatment How to access health informa tion online Indication:Nausea and vomiting in adult Start:14-Mar-2019 Instruction Type:Patient Education How to access health informa tion online - Detail Indication:Nausea and vomiting in adult Start:14-Mar-2019 Instruction Type:Patient Education Patient Instructions Indication:BMI 33.0-33.9,adult Start:14-Mar-2019 Instruction Type:Provider Instructions for Treatment How to access health informa tion online Indication:Tobacco use Start:01-Feb-2018 Instruction Type:Patient Education How to access health informa tion online - Detail Indication:Tobacco use Start:01-Feb-2018 Instruction Type:Patient Education Patient Instructions Indication:Tobacco use Start:01-Feb-2018 Instruction Type:Provider Instructions for Treatment How to access health informa tion online Indication:BMI 33.0-33.9,adult Start:26-Jan-2018 Instruction Type:Patient Education How to access health informa tion online - Detail Indication:BMI 33.0-33.9,adult Start:26-Jan-2018 Instruction Type:Patient Education Patient Instructions Indication:BMI 33.0-33.9,adult Start:26-Jan-2018 Instruction Type:Provider Instructions for Treatment How to access health informa tion online Indication:Tobacco use Start:21-Jan-2018 Instruction Type:Patient Education How to access health informa tion online - Detail Indication:Tobacco use Start:21-Jan-2018 Instruction Type:Patient Education Patient Instructions Indication:Tobacco use Start:21-Jan-2018 Instruction Type:Provider Instructions for Treatment How to access health informa tion online Indication:BMI 31.0-31.9,adult Start:17-Jun-2017 Instruction Type:Patient Education How to access health informa tion online - Detail Indication:BMI 31.0-31.9,adult Start:17-Jun-2017 Instruction Type:Patient Education Patient Instructions Indication:Irritable bowel syndrome Start:17-Jun-2017 Instruction Type:Provider Instructions for Treatment How to access health informa tion online Indication:Hyperglyceridemia Start:04-Mar-2017 Instruction Type:Patient Education How to access health informa tion online - Detail Indication:Hyperglyceridemia Start:04-Mar-2017 Instruction Type:Patient Education Patient Instructions Indication:Hyperglyceridemia Start:04-Mar-2017 Instruction Type:Provider Instructions for Treatment How to access health informa tion online - Detail Indication:Tobacco use Start:25-Feb-2017 Instruction Type:Patient Education How to access health informa tion online Indication:Tobacco use Start:25-Feb-2017 Instruction Type:Patient Education Patient Instructions Indication:Tobacco use Start:25-Feb-2017 Instruction Type:Provider Instructions for Treatment How to access health informa tion online Indication:Tobacco use Start:24-Dec-2016 Instruction Type:Patient Education How to access health informa tion online - Detail Indication:Tobacco use Start:24-Dec-2016 Instruction Type:Patient Education Patient Instructions Indication:Tobacco use Start:24-Dec-2016 Instruction Type:Provider Instructions for Treatment How to access health informa tion online Indication:Tobacco use Start:04-Dec-2016 Instruction Type:Patient Education How to access health informa tion online - Detail Indication:Tobacco use Start:04-Dec-2016 Instruction Type:Patient Education Patient Instructions Indication:Tobacco use Start:04-Dec-2016 Instruction Type:Provider Instructions for Treatment How to access health informa tion online Indication:Tobacco use Start:03-Dec-2016 Instruction Type:Patient Education How to access health informa tion online - Detail Indication:Tobacco use Start:03-Dec-2016 Instruction Type:Patient Education Patient Instructions Indication:Tobacco use Start:03-Dec-2016 Instruction Type:Provider Instructions for Treatment How to access health informa tion online Indication:BMI 30.0-30.9,adult Start:28-Aug-2016 Instruction Type:Patient Education How to access health informa tion online - Detail Indication:BMI 30.0-30.9,adult Start:28-Aug-2016 Instruction Type:Patient Education Patient Instructions Indication:BMI 30.0-30.9,adult Start:28-Aug-2016 Instruction Type:Provider Instructions for Treatment How to access health informa tion online Indication:Intractable vomiting with nausea, unspecified vomiting type Start:05-May-2016 Instruction Type:Patient Education How to access health informa tion online - Detail Indication:Intractable vomiting with nausea, unspecified vomiting type Start:05-May-2016 Instruction Type:Patient Education Patient Instructions Indication:Intractable vomiting with nausea, unspecified vomiting type Start:05-May-2016 Instruction Type:Provider Instructions for Treatment How to access health informa tion online Indication:Tobacco use Start:10-Apr-2016 Instruction Type:Patient Education How to access health informa tion online - Detail Indication:Tobacco use Start:10-Apr-2016 Instruction Type:Patient Education Patient Instructions Indication:Tobacco use Start:10-Apr-2016 Instruction Type:Provider Instructions for Treatment How to access health informa tion online Indication:Dysuria Start:07-Apr-2016 Instruction Type:Patient Education How to access health informa tion online - Detail Indication:Dysuria Start:07-Apr-2016 Instruction Type:Patient Education Patient Instructions Indication:Dysuria Start:07-Apr-2016 Instruction Type:Provider Instructions for Treatment How to access health informa tion online Indication:UTI symptoms Start:02-Mar-2016 Instruction Type:Patient Education How to access health informa tion online - Detail Indication:UTI symptoms Start:02-Mar-2016 Instruction Type:Patient Education Patient Instructions Indication:UTI symptoms Start:02-Mar-2016 Instruction Type:Provider Instructions for Treatment How to access health informa tion online Indication:Hypercholesterolemia Start:14-Feb-2016 Instruction Type:Patient Education How to access health informa tion online - Detail Indication:Hypercholesterolemia Start:14-Feb-2016 Instruction Type:Patient Education Patient Instructions Indication:Hypercholesterolemia Start:14-Feb-2016 Instruction Type:Provider Instructions for Treatment Patient Instructions Indication:Irritable bowel syndrome Start:15-Aug-2015 Instruction Type:Provider Instructions for Treatment Patient Instructions Indication:Vitamin D deficiency Start:15-Aug-2015 Instruction Type:Provider Instructions for Treatment How to access health informa tion online Indication:Abnormal lung sounds Start:08-Aug-2015 Instruction Type:Patient Education How to access health informa tion online - Detail Indication:Abnormal lung sounds Start:08-Aug-2015 Instruction Type:Patient Education Patient Instructions Indication:Abnormal lung sounds Start:08-Aug-2015 Instruction Type:Provider Instructions for Treatment How to access health informa tion online Indication:Thrush, oral Start:24-Jul-2015 Instruction Type:Patient Education How to access health informa tion online - Detail Indication:Thrush, oral Start:24-Jul-2015 Instruction Type:Patient Education Patient Instructions Indication:Thrush, oral Start:24-Jul-2015 Instruction Type:Provider Instructions for Treatment How to access health informa tion online - Detail Indication:Headache Start:23-Apr-2015 Instruction Type:Patient Education How to access health informa tion online Indication:Headache Start:23-Apr-2015 Instruction Type:Patient Education Patient Instructions Indication:Headache Start:23-Apr-2015 Instruction Type:Provider Instructions for Treatment How to access health informa tion online Indication:Headache Start:09-Apr-2015 Instruction Type:Patient Education How to access health informa tion online - Detail Indication:Headache Start:09-Apr-2015 Instruction Type:Patient Education Patient Instructions Indication:Headache Start:09-Apr-2015 Instruction Type:Provider Instructions for Treatment How to access health informa tion online Indication:Anxiety Start:05-Apr-2015 Instruction Type:Patient Education How to access health informa tion online - Detail Indication:Anxiety Start:05-Apr-2015 Instruction Type:Patient Education Patient Instructions Indication:Anxiety Start:05-Apr-2015 Instruction Type:Provider Instructions for Treatment How to access health informa tion online Indication:Headache Start:08-Nov-2014 Instruction Type:Patient Education How to access health informa tion online - Detail Indication:Headache Start:08-Nov-2014 Instruction Type:Patient Education Patient Instructions Indication:Itchy eyes Start:08-Nov-2014 Instruction Type:Provider Instructions for Treatment How to access health informa tion online Indication:Myalgia Start:20-Feb-2014 Instruction Type:Patient Education How to access health informa tion online Indication:Hyperglyceridemia Start:05-Jan-2014 Instruction Type:Patient Education How to access health informa tion online - Detail Indication:Hyperglyceridemia Start:05-Jan-2014 Instruction Type:Patient Education Patient Instructions Indication:Hyperglyceridemia Start:05-Jan-2014 Instruction Type:Provider Instructions for Treatment Patient Instructions Indication:Medication side effect Start:10-Jul-2013 Instruction Type:Provider Instructions for Treatment Patient Instructions Indication:Stress reaction Start:15-Jun-2013 Instruction Type:Provider Instructions for Treatment Patient Instructions Indication:Nausea and vomiting Start:05-Jun-2013 Instruction Type:Provider Instructions for Treatment Patient Instructions Indication:VOLUME DEPLETION DISORDER; DEHYDRATION Start:02-May-2013 Instruction Type:Provider Instructions for Treatment Patient Instructions Indication:Anxiety Start:28-Apr-2013 Instruction Type:Provider Instructions for Treatment Patient Instructions Indication:Shoulder Pain Start:16-Feb-2013 Instruction Type:Provider Instructions for Treatment Patient Instructions Indication:Hyperglyceridemia Start:06-Oct-2012 Instruction Type:Provider Instructions for Treatment Patient Instructions Indication:Hypercholesterolemia Start:10-May-2012 Instruction Type:Provider Instructions for Treatment DISCONTINUED - Renal functio n Panel ([id number]) Indication:Hypercholesterolemia Start:01-Feb-2012 Instruction Type:Patient Education DISCONTINUED - Lipid Panel ( [id number]) Indication:Hypercholesterolemia Start:01-Feb-2012 Instruction Type:Patient Education Patient Instructions Indication:Hypercholesterolemia Start:01-Feb-2012 Instruction Type:Provider Instructions for Treatment [facility]; [facility] Work Phone: Instructions* Name Dates Details Patient Instructions Indication:Tobacco use Start:14-Jan-2023 Instruction Type:Provider Instructions for Treatment How to Access Health Informa tion Online using Patient Portal and [employer]rd [employer] Apps Indication:Tobacco use Start:14-Jan-2023 Instruction Type:Patient Education How to Access Health Informa tion Online using Patient Portal and [employer]rd [employer] Apps Indication:Smoker Start:11-Sep-2022 Instruction Type:Patient Education Patient Instructions Indication:Smoker Start:11-Sep-2022 Instruction Type:Provider Instructions for Treatment Patient Instructions Indication:Smoker Start:03-Apr-2022 Instruction Type:Provider Instructions for Treatment How to Access Health Informa tion Online using Patient Portal and [employer]rd [employer] Apps Indication:Smoker Start:03-Apr-2022 Instruction Type:Patient Education Patient Instructions Indication:Smoker Start:13-Mar-2022 Instruction Type:Provider Instructions for Treatment How to Access Health Informa tion Online using Patient Portal and [employer]rd [employer] Apps Indication:Smoker Start:13-Mar-2022 Instruction Type:Patient Education Patient Instructions Indication:Irritable bowel syndrome Start:03-Apr-2021 Instruction Type:Provider Instructions for Treatment How to Access Health Informa tion Online using Patient Portal and [employer]rd [employer] Apps Indication:Irritable bowel syndrome Start:03-Apr-2021 Instruction Type:Patient Education Patient Instructions Indication:BMI 33.0-33.9,adult Start:02-Dec-2020 Instruction Type:Provider Instructions for Treatment How to Access Health Informa tion Online using Patient Portal and 3rd [employer] Apps Indication:BMI 33.0-33.9,adult Start:02-Dec-2020 Instruction Type:Patient Education Patient Instructions Indication:BMI 32.0-32.9,adult Start:19-Jul-2020 Instruction Type:Provider Instructions for Treatment How to Access Health Informa tion Online using Patient Portal and 3rd [employer] Apps Indication:BMI 32.0-32.9,adult Start:19-Jul-2020 Instruction Type:Patient Education How to access health informa tion online Indication:Smoker Start:22-Dec-2019 Instruction Type:Patient Education How to access health informa tion online - Detail Indication:Smoker Start:22-Dec-2019 Instruction Type:Patient Education Patient Instructions Indication:Smoker Start:22-Dec-2019 Instruction Type:Provider Instructions for Treatment How to access health informa tion online Indication:Smoker Start:12-Sep-2019 Instruction Type:Patient Education How to access health informa tion online - Detail Indication:Smoker Start:12-Sep-2019 Instruction Type:Patient Education Patient Instructions Indication:Smoker Start:12-Sep-2019 Instruction Type:Provider Instructions for Treatment How to access health informa tion online Indication:BMI 32.0-32.9,adult Start:04-Sep-2019 Instruction Type:Patient Education How to access health informa tion online - Detail Indication:BMI 32.0-32.9,adult Start:04-Sep-2019 Instruction Type:Patient Education Patient Instructions Indication:BMI 32.0-32.9,adult Start:04-Sep-2019 Instruction Type:Provider Instructions for Treatment How to access health informa tion online Indication:Diarrhea Start:30-Aug-2019 Instruction Type:Patient Education How to access health informa tion online - Detail Indication:Diarrhea Start:30-Aug-2019 Instruction Type:Patient Education Patient Instructions Indication:Diarrhea Start:30-Aug-2019 Instruction Type:Provider Instructions for Treatment How to access health informa tion online Indication:Smoker Start:21-Jul-2019 Instruction Type:Patient Education How to access health informa tion online - Detail Indication:Smoker Start:21-Jul-2019 Instruction Type:Patient Education Patient Instructions Indication:Smoker Start:21-Jul-2019 Instruction Type:Provider Instructions for Treatment How to access health informa tion online Indication:Nausea and vomiting in adult Start:14-Mar-2019 Instruction Type:Patient Education How to access health informa tion online - Detail Indication:Nausea and vomiting in adult Start:14-Mar-2019 Instruction Type:Patient Education Patient Instructions Indication:BMI 33.0-33.9,adult Start:14-Mar-2019 Instruction Type:Provider Instructions for Treatment How to access health informa tion online Indication:Tobacco use Start:01-Feb-2018 Instruction Type:Patient Education How to access health informa tion online - Detail Indication:Tobacco use Start:01-Feb-2018 Instruction Type:Patient Education Patient Instructions Indication:Tobacco use Start:01-Feb-2018 Instruction Type:Provider Instructions for Treatment How to access health informa tion online Indication:BMI 33.0-33.9,adult Start:26-Jan-2018 Instruction Type:Patient Education How to access health informa tion online - Detail Indication:BMI 33.0-33.9,adult Start:26-Jan-2018 Instruction Type:Patient Education Patient Instructions Indication:BMI 33.0-33.9,adult Start:26-Jan-2018 Instruction Type:Provider Instructions for Treatment How to access health informa tion online Indication:Tobacco use Start:21-Jan-2018 Instruction Type:Patient Education How to access health informa tion online - Detail Indication:Tobacco use Start:21-Jan-2018 Instruction Type:Patient Education Patient Instructions Indication:Tobacco use Start:21-Jan-2018 Instruction Type:Provider Instructions for Treatment How to access health informa tion online Indication:BMI 31.0-31.9,adult Start:17-Jun-2017 Instruction Type:Patient Education How to access health informa tion online - Detail Indication:BMI 31.0-31.9,adult Start:17-Jun-2017 Instruction Type:Patient Education Patient Instructions Indication:Irritable bowel syndrome Start:17-Jun-2017 Instruction Type:Provider Instructions for Treatment How to access health informa tion online Indication:Hyperglyceridemia Start:04-Mar-2017 Instruction Type:Patient Education How to access health informa tion online - Detail Indication:Hyperglyceridemia Start:04-Mar-2017 Instruction Type:Patient Education Patient Instructions Indication:Hyperglyceridemia Start:04-Mar-2017 Instruction Type:Provider Instructions for Treatment How to access health informa tion online - Detail Indication:Tobacco use Start:25-Feb-2017 Instruction Type:Patient Education How to access health informa tion online Indication:Tobacco use Start:25-Feb-2017 Instruction Type:Patient Education Patient Instructions Indication:Tobacco use Start:25-Feb-2017 Instruction Type:Provider Instructions for Treatment How to access health informa tion online Indication:Tobacco use Start:24-Dec-2016 Instruction Type:Patient Education How to access health informa tion online - Detail Indication:Tobacco use Start:24-Dec-2016 Instruction Type:Patient Education Patient Instructions Indication:Tobacco use Start:24-Dec-2016 Instruction Type:Provider Instructions for Treatment How to access health informa tion online Indication:Tobacco use Start:04-Dec-2016 Instruction Type:Patient Education How to access health informa tion online - Detail Indication:Tobacco use Start:04-Dec-2016 Instruction Type:Patient Education Patient Instructions Indication:Tobacco use Start:04-Dec-2016 Instruction Type:Provider Instructions for Treatment How to access health informa tion online Indication:Tobacco use Start:03-Dec-2016 Instruction Type:Patient Education How to access health informa tion online - Detail Indication:Tobacco use Start:03-Dec-2016 Instruction Type:Patient Education Patient Instructions Indication:Tobacco use Start:03-Dec-2016 Instruction Type:Provider Instructions for Treatment How to access health informa tion online Indication:BMI 30.0-30.9,adult Start:28-Aug-2016 Instruction Type:Patient Education How to access health informa tion online - Detail Indication:BMI 30.0-30.9,adult Start:28-Aug-2016 Instruction Type:Patient Education Patient Instructions Indication:BMI 30.0-30.9,adult Start:28-Aug-2016 Instruction Type:Provider Instructions for Treatment How to access health informa tion online Indication:Intractable vomiting with nausea, unspecified vomiting type Start:05-May-2016 Instruction Type:Patient Education How to access health informa tion online - Detail Indication:Intractable vomiting with nausea, unspecified vomiting type Start:05-May-2016 Instruction Type:Patient Education Patient Instructions Indication:Intractable vomiting with nausea, unspecified vomiting type Start:05-May-2016 Instruction Type:Provider Instructions for Treatment How to access health informa tion online Indication:Tobacco use Start:10-Apr-2016 Instruction Type:Patient Education How to access health informa tion online - Detail Indication:Tobacco use Start:10-Apr-2016 Instruction Type:Patient Education Patient Instructions Indication:Tobacco use Start:10-Apr-2016 Instruction Type:Provider Instructions for Treatment How to access health informa tion online Indication:Dysuria Start:07-Apr-2016 Instruction Type:Patient Education How to access health informa tion online - Detail Indication:Dysuria Start:07-Apr-2016 Instruction Type:Patient Education Patient Instructions Indication:Dysuria Start:07-Apr-2016 Instruction Type:Provider Instructions for Treatment How to access health informa tion online Indication:UTI symptoms Start:02-Mar-2016 Instruction Type:Patient Education How to access health informa tion online - Detail Indication:UTI symptoms Start:02-Mar-2016 Instruction Type:Patient Education Patient Instructions Indication:UTI symptoms Start:02-Mar-2016 Instruction Type:Provider Instructions for Treatment How to access health informa tion online Indication:Hypercholesterolemia Start:14-Feb-2016 Instruction Type:Patient Education How to access health informa tion online - Detail Indication:Hypercholesterolemia Start:14-Feb-2016 Instruction Type:Patient Education Patient Instructions Indication:Hypercholesterolemia Start:14-Feb-2016 Instruction Type:Provider Instructions for Treatment Patient Instructions Indication:Irritable bowel syndrome Start:15-Aug-2015 Instruction Type:Provider Instructions for Treatment Patient Instructions Indication:Vitamin D deficiency Start:15-Aug-2015 Instruction Type:Provider Instructions for Treatment How to access health informa tion online Indication:Abnormal lung sounds Start:08-Aug-2015 Instruction Type:Patient Education How to access health informa tion online - Detail Indication:Abnormal lung sounds Start:08-Aug-2015 Instruction Type:Patient Education Patient Instructions Indication:Abnormal lung sounds Start:08-Aug-2015 Instruction Type:Provider Instructions for Treatment How to access health informa tion online Indication:Thrush, oral Start:24-Jul-2015 Instruction Type:Patient Education How to access health informa tion online - Detail Indication:Thrush, oral Start:24-Jul-2015 Instruction Type:Patient Education Patient Instructions Indication:Thrush, oral Start:24-Jul-2015 Instruction Type:Provider Instructions for Treatment How to access health informa tion online - Detail Indication:Headache Start:23-Apr-2015 Instruction Type:Patient Education How to access health informa tion online Indication:Headache Start:23-Apr-2015 Instruction Type:Patient Education Patient Instructions Indication:Headache Start:23-Apr-2015 Instruction Type:Provider Instructions for Treatment How to access health informa tion online Indication:Headache Start:09-Apr-2015 Instruction Type:Patient Education How to access health informa tion online - Detail Indication:Headache Start:09-Apr-2015 Instruction Type:Patient Education Patient Instructions Indication:Headache Start:09-Apr-2015 Instruction Type:Provider Instructions for Treatment How to access health informa tion online Indication:Anxiety Start:05-Apr-2015 Instruction Type:Patient Education How to access health informa tion online - Detail Indication:Anxiety Start:05-Apr-2015 Instruction Type:Patient Education Patient Instructions Indication:Anxiety Start:05-Apr-2015 Instruction Type:Provider Instructions for Treatment How to access health informa tion online Indication:Headache Start:08-Nov-2014 Instruction Type:Patient Education How to access health informa tion online - Detail Indication:Headache Start:08-Nov-2014 Instruction Type:Patient Education Patient Instructions Indication:Itchy eyes Start:08-Nov-2014 Instruction Type:Provider Instructions for Treatment How to access health informa tion online Indication:Myalgia Start:20-Feb-2014 Instruction Type:Patient Education How to access health informa tion online Indication:Hyperglyceridemia Start:05-Jan-2014 Instruction Type:Patient Education How to access health informa tion online - Detail Indication:Hyperglyceridemia Start:05-Jan-2014 Instruction Type:Patient Education Patient Instructions Indication:Hyperglyceridemia Start:05-Jan-2014 Instruction Type:Provider Instructions for Treatment Patient Instructions Indication:Medication side effect Start:10-Jul-2013 Instruction Type:Provider Instructions for Treatment Patient Instructions Indication:Stress reaction Start:15-Jun-2013 Instruction Type:Provider Instructions for Treatment Patient Instructions Indication:Nausea and vomiting Start:05-Jun-2013 Instruction Type:Provider Instructions for Treatment Patient Instructions Indication:VOLUME DEPLETION DISORDER; DEHYDRATION Start:02-May-2013 Instruction Type:Provider Instructions for Treatment Patient Instructions Indication:Anxiety Start:28-Apr-2013 Instruction Type:Provider Instructions for Treatment Patient Instructions Indication:Shoulder Pain Start:16-Feb-2013 Instruction Type:Provider Instructions for Treatment Patient Instructions Indication:Hyperglyceridemia Start:06-Oct-2012 Instruction Type:Provider Instructions for Treatment Patient Instructions Indication:Hypercholesterolemia Start:10-May-2012 Instruction Type:Provider Instructions for Treatment DISCONTINUED - Renal functio n Panel (47714) Indication:Hypercholesterolemia Start:01-Feb-2012 Instruction Type:Patient Education DISCONTINUED - Lipid Panel ( [id number]) Indication:Hypercholesterolemia Start:01-Feb-2012 Instruction Type:Patient Education Patient Instructions Indication:Hypercholesterolemia Start:01-Feb-2012 Instruction Type:Provider Instructions for Treatment [facility]; [facility] Work Phone: Instructions* Name Dates Details Patient Instructions Indication:BMI 35.0-35.9,adult Start:20-Jan-2023 Instruction Type:Provider Instructions for Treatment How to Access Health Informa tion Online using Patient Portal and [employer]rd [employer] Apps Indication:BMI 35.0-35.9,adult Start:20-Jan-2023 Instruction Type:Patient Education Patient Instructions Indication:Tobacco use Start:14-Jan-2023 Instruction Type:Provider Instructions for Treatment How to Access Health Informa tion Online using Patient Portal and [employer]rd [employer] Apps Indication:Tobacco use Start:14-Jan-2023 Instruction Type:Patient Education How to Access Health Informa tion Online using Patient Portal and [employer]rd [employer] Apps Indication:Smoker Start:11-Sep-2022 Instruction Type:Patient Education Patient Instructions Indication:Smoker Start:11-Sep-2022 Instruction Type:Provider Instructions for Treatment Patient Instructions Indication:Smoker Start:03-Apr-2022 Instruction Type:Provider Instructions for Treatment How to Access Health Informa tion Online using Patient Portal and [employer]rd [employer] Apps Indication:Smoker Start:03-Apr-2022 Instruction Type:Patient Education Patient Instructions Indication:Smoker Start:13-Mar-2022 Instruction Type:Provider Instructions for Treatment How to Access Health Informa tion Online using Patient Portal and [employer]rd [employer] Apps Indication:Smoker Start:13-Mar-2022 Instruction Type:Patient Education Patient Instructions Indication:Irritable bowel syndrome Start:03-Apr-2021 Instruction Type:Provider Instructions for Treatment How to Access Health Informa tion Online using Patient Portal and [employer]rd [employer] Apps Indication:Irritable bowel syndrome Start:03-Apr-2021 Instruction Type:Patient Education Patient Instructions Indication:BMI 33.0-33.9,adult Start:02-Dec-2020 Instruction Type:Provider Instructions for Treatment How to Access Health Informa tion Online using Patient Portal and [employer]rd [employer] Apps Indication:BMI 33.0-33.9,adult Start:02-Dec-2020 Instruction Type:Patient Education Patient Instructions Indication:BMI 32.0-32.9,adult Start:19-Jul-2020 Instruction Type:Provider Instructions for Treatment How to Access Health Informa tion Online using Patient Portal and [employer]rd [employer] Apps Indication:BMI 32.0-32.9,adult Start:19-Jul-2020 Instruction Type:Patient Education How to access health informa tion online Indication:Smoker Start:22-Dec-2019 Instruction Type:Patient Education How to access health informa tion online - Detail Indication:Smoker Start:22-Dec-2019 Instruction Type:Patient Education Patient Instructions Indication:Smoker Start:22-Dec-2019 Instruction Type:Provider Instructions for Treatment How to access health informa tion online Indication:Smoker Start:12-Sep-2019 Instruction Type:Patient Education How to access health informa tion online - Detail Indication:Smoker Start:12-Sep-2019 Instruction Type:Patient Education Patient Instructions Indication:Smoker Start:12-Sep-2019 Instruction Type:Provider Instructions for Treatment How to access health informa tion online Indication:BMI 32.0-32.9,adult Start:04-Sep-2019 Instruction Type:Patient Education How to access health informa tion online - Detail Indication:BMI 32.0-32.9,adult Start:04-Sep-2019 Instruction Type:Patient Education Patient Instructions Indication:BMI 32.0-32.9,adult Start:04-Sep-2019 Instruction Type:Provider Instructions for Treatment How to access health informa tion online Indication:Diarrhea Start:30-Aug-2019 Instruction Type:Patient Education How to access health informa tion online - Detail Indication:Diarrhea Start:30-Aug-2019 Instruction Type:Patient Education Patient Instructions Indication:Diarrhea Start:30-Aug-2019 Instruction Type:Provider Instructions for Treatment How to access health informa tion online Indication:Smoker Start:21-Jul-2019 Instruction Type:Patient Education How to access health informa tion online - Detail Indication:Smoker Start:21-Jul-2019 Instruction Type:Patient Education Patient Instructions Indication:Smoker Start:21-Jul-2019 Instruction Type:Provider Instructions for Treatment How to access health informa tion online Indication:Nausea and vomiting in adult Start:14-Mar-2019 Instruction Type:Patient Education How to access health informa tion online - Detail Indication:Nausea and vomiting in adult Start:14-Mar-2019 Instruction Type:Patient Education Patient Instructions Indication:BMI 33.0-33.9,adult Start:14-Mar-2019 Instruction Type:Provider Instructions for Treatment How to access health informa tion online Indication:Tobacco use Start:01-Feb-2018 Instruction Type:Patient Education How to access health informa tion online - Detail Indication:Tobacco use Start:01-Feb-2018 Instruction Type:Patient Education Patient Instructions Indication:Tobacco use Start:01-Feb-2018 Instruction Type:Provider Instructions for Treatment How to access health informa tion online Indication:BMI 33.0-33.9,adult Start:26-Jan-2018 Instruction Type:Patient Education How to access health informa tion online - Detail Indication:BMI 33.0-33.9,adult Start:26-Jan-2018 Instruction Type:Patient Education Patient Instructions Indication:BMI 33.0-33.9,adult Start:26-Jan-2018 Instruction Type:Provider Instructions for Treatment How to access health informa tion online Indication:Tobacco use Start:21-Jan-2018 Instruction Type:Patient Education How to access health informa tion online - Detail Indication:Tobacco use Start:21-Jan-2018 Instruction Type:Patient Education Patient Instructions Indication:Tobacco use Start:21-Jan-2018 Instruction Type:Provider Instructions for Treatment How to access health informa tion online Indication:BMI 31.0-31.9,adult Start:17-Jun-2017 Instruction Type:Patient Education How to access health informa tion online - Detail Indication:BMI 31.0-31.9,adult Start:17-Jun-2017 Instruction Type:Patient Education Patient Instructions Indication:Irritable bowel syndrome Start:17-Jun-2017 Instruction Type:Provider Instructions for Treatment How to access health informa tion online Indication:Hyperglyceridemia Start:04-Mar-2017 Instruction Type:Patient Education How to access health informa tion online - Detail Indication:Hyperglyceridemia Start:04-Mar-2017 Instruction Type:Patient Education Patient Instructions Indication:Hyperglyceridemia Start:04-Mar-2017 Instruction Type:Provider Instructions for Treatment How to access health informa tion online - Detail Indication:Tobacco use Start:25-Feb-2017 Instruction Type:Patient Education How to access health informa tion online Indication:Tobacco use Start:25-Feb-2017 Instruction Type:Patient Education Patient Instructions Indication:Tobacco use Start:25-Feb-2017 Instruction Type:Provider Instructions for Treatment How to access health informa tion online Indication:Tobacco use Start:24-Dec-2016 Instruction Type:Patient Education How to access health informa tion online - Detail Indication:Tobacco use Start:24-Dec-2016 Instruction Type:Patient Education Patient Instructions Indication:Tobacco use Start:24-Dec-2016 Instruction Type:Provider Instructions for Treatment How to access health informa tion online Indication:Tobacco use Start:04-Dec-2016 Instruction Type:Patient Education How to access health informa tion online - Detail Indication:Tobacco use Start:04-Dec-2016 Instruction Type:Patient Education Patient Instructions Indication:Tobacco use Start:04-Dec-2016 Instruction Type:Provider Instructions for Treatment How to access health informa tion online Indication:Tobacco use Start:03-Dec-2016 Instruction Type:Patient Education How to access health informa tion online - Detail Indication:Tobacco use Start:03-Dec-2016 Instruction Type:Patient Education Patient Instructions Indication:Tobacco use Start:03-Dec-2016 Instruction Type:Provider Instructions for Treatment How to access health informa tion online Indication:BMI 30.0-30.9,adult Start:28-Aug-2016 Instruction Type:Patient Education How to access health informa tion online - Detail Indication:BMI 30.0-30.9,adult Start:28-Aug-2016 Instruction Type:Patient Education Patient Instructions Indication:BMI 30.0-30.9,adult Start:28-Aug-2016 Instruction Type:Provider Instructions for Treatment How to access health informa tion online Indication:Intractable vomiting with nausea, unspecified vomiting type Start:05-May-2016 Instruction Type:Patient Education How to access health informa tion online - Detail Indication:Intractable vomiting with nausea, unspecified vomiting type Start:05-May-2016 Instruction Type:Patient Education Patient Instructions Indication:Intractable vomiting with nausea, unspecified vomiting type Start:05-May-2016 Instruction Type:Provider Instructions for Treatment How to access health informa tion online Indication:Tobacco use Start:10-Apr-2016 Instruction Type:Patient Education How to access health informa tion online - Detail Indication:Tobacco use Start:10-Apr-2016 Instruction Type:Patient Education Patient Instructions Indication:Tobacco use Start:10-Apr-2016 Instruction Type:Provider Instructions for Treatment How to access health informa tion online Indication:Dysuria Start:07-Apr-2016 Instruction Type:Patient Education How to access health informa tion online - Detail Indication:Dysuria Start:07-Apr-2016 Instruction Type:Patient Education Patient Instructions Indication:Dysuria Start:07-Apr-2016 Instruction Type:Provider Instructions for Treatment How to access health informa tion online Indication:UTI symptoms Start:02-Mar-2016 Instruction Type:Patient Education How to access health informa tion online - Detail Indication:UTI symptoms Start:02-Mar-2016 Instruction Type:Patient Education Patient Instructions Indication:UTI symptoms Start:02-Mar-2016 Instruction Type:Provider Instructions for Treatment How to access health informa tion online Indication:Hypercholesterolemia Start:14-Feb-2016 Instruction Type:Patient Education How to access health informa tion online - Detail Indication:Hypercholesterolemia Start:14-Feb-2016 Instruction Type:Patient Education Patient Instructions Indication:Hypercholesterolemia Start:14-Feb-2016 Instruction Type:Provider Instructions for Treatment Patient Instructions Indication:Irritable bowel syndrome Start:15-Aug-2015 Instruction Type:Provider Instructions for Treatment Patient Instructions Indication:Vitamin D deficiency Start:15-Aug-2015 Instruction Type:Provider Instructions for Treatment How to access health informa tion online Indication:Abnormal lung sounds Start:08-Aug-2015 Instruction Type:Patient Education How to access health informa tion online - Detail Indication:Abnormal lung sounds Start:08-Aug-2015 Instruction Type:Patient Education Patient Instructions Indication:Abnormal lung sounds Start:08-Aug-2015 Instruction Type:Provider Instructions for Treatment How to access health informa tion online Indication:Thrush, oral Start:24-Jul-2015 Instruction Type:Patient Education How to access health informa tion online - Detail Indication:Thrush, oral Start:24-Jul-2015 Instruction Type:Patient Education Patient Instructions Indication:Thrush, oral Start:24-Jul-2015 Instruction Type:Provider Instructions for Treatment How to access health informa tion online - Detail Indication:Headache Start:23-Apr-2015 Instruction Type:Patient Education How to access health informa tion online Indication:Headache Start:23-Apr-2015 Instruction Type:Patient Education Patient Instructions Indication:Headache Start:23-Apr-2015 Instruction Type:Provider Instructions for Treatment How to access health informa tion online Indication:Headache Start:09-Apr-2015 Instruction Type:Patient Education How to access health informa tion online - Detail Indication:Headache Start:09-Apr-2015 Instruction Type:Patient Education Patient Instructions Indication:Headache Start:09-Apr-2015 Instruction Type:Provider Instructions for Treatment How to access health informa tion online Indication:Anxiety Start:05-Apr-2015 Instruction Type:Patient Education How to access health informa tion online - Detail Indication:Anxiety Start:05-Apr-2015 Instruction Type:Patient Education Patient Instructions Indication:Anxiety Start:05-Apr-2015 Instruction Type:Provider Instructions for Treatment How to access health informa tion online Indication:Headache Start:08-Nov-2014 Instruction Type:Patient Education How to access health informa tion online - Detail Indication:Headache Start:08-Nov-2014 Instruction Type:Patient Education Patient Instructions Indication:Itchy eyes Start:08-Nov-2014 Instruction Type:Provider Instructions for Treatment How to access health informa tion online Indication:Myalgia Start:20-Feb-2014 Instruction Type:Patient Education How to access health informa tion online Indication:Hyperglyceridemia Start:05-Jan-2014 Instruction Type:Patient Education How to access health informa tion online - Detail Indication:Hyperglyceridemia Start:05-Jan-2014 Instruction Type:Patient Education Patient Instructions Indication:Hyperglyceridemia Start:05-Jan-2014 Instruction Type:Provider Instructions for Treatment Patient Instructions Indication:Medication side effect Start:10-Jul-2013 Instruction Type:Provider Instructions for Treatment Patient Instructions Indication:Stress reaction Start:15-Jun-2013 Instruction Type:Provider Instructions for Treatment Patient Instructions Indication:Nausea and vomiting Start:05-Jun-2013 Instruction Type:Provider Instructions for Treatment Patient Instructions Indication:VOLUME DEPLETION DISORDER; DEHYDRATION Start:02-May-2013 Instruction Type:Provider Instructions for Treatment Patient Instructions Indication:Anxiety Start:28-Apr-2013 Instruction Type:Provider Instructions for Treatment Patient Instructions Indication:Shoulder Pain Start:16-Feb-2013 Instruction Type:Provider Instructions for Treatment Patient Instructions Indication:Hyperglyceridemia Start:06-Oct-2012 Instruction Type:Provider Instructions for Treatment Patient Instructions Indication:Hypercholesterolemia Start:10-May-2012 Instruction Type:Provider Instructions for Treatment DISCONTINUED - Renal functio n Panel ([id number]) Indication:Hypercholesterolemia Start:01-Feb-2012 Instruction Type:Patient Education DISCONTINUED - Lipid Panel ( [id number]) Indication:Hypercholesterolemia Start:01-Feb-2012 Instruction Type:Patient Education Patient Instructions Indication:Hypercholesterolemia Start:01-Feb-2012 Instruction Type:Provider Instructions for Treatment [facility] Work Phone: progress note Author Katey Elizabeth [facility] Note Date/Time September 18, 2024 8:32a m [facility] [address], [address] [place] [address] OFFICE VISIT Date of Service: 09/18/24 MR#: [id number] Acct: [id number] Name: GALINA LATHAM Rep #: [id number] : 1970 Provider: Dr. 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 Is patient in pain?: No Allergies fluoxetine (From Prozac) Allergy (Verified 09/18/24 08:01) Diarrhea venom-honey bee (bee venom (honey bee)) Allergy (Verified 09/18/24 08:01) Anaphylaxis Penicillins Adverse Reaction (Verified 09/18/24 08:01) Vomiting Medications ?Medication ?Instructions ?Recorded ?Confirmed ?Type multivitamin 1 ea PO DAILY supplement 05/2109/18/24 History buspirone 30 mg tablet 30 mg PO BID 07/24/19 History fenofibric acid (choline) 135 mg 135 mg PO DAILY 08/2109/18/24 History capsule,delayed release (Trilipix) cholecalciferol (vitamin D3) 125 125 mcg PO DAILY 08/0109/18/24 History mcg (5,000 unit) capsule trazodone 100 mg tablet 100 mg PO QHS 08/12/2109/18 History calcium carbonate 600 mg PO QDAY 09/18/2408/31 History diazepam 5 mg tablet 5 mg PO QHS PRN 09/18/24 History magnesium 250 mg tablet 250 mg PO QDAY 09/18/2408/31 History sertraline 100 mg tablet (Zoloft) 100 mg PO QDAY 09/1809/18/24 History Is last menstrual period known: No Patient : No : [facility] Hyperlipidemia Anxiety and depression Vitamin D deficiency History of frequent headaches History of marijuana use Leukocytopenia IBS (irritable bowel syndrome) Hypertension Hepatomegaly Tobacco use Surgical History Hx of right breast biopsy History of total vaginal hysterectomy (TVH) History of carpal tunnel surgery History of dilation and curettage Hx laparoscopic cholecystectomy Family History Mother Hypertension Father Suicide Uncle Suicide Social History Smoking Status: Heavy Smoker (>10/day) alcohol intake: never substance use type: does not use caffeine: Yes what type of physical activity do you participate in: walking seatbelt use: always do you feel safe at home: Yes 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 Last PAP: hyst History of abnormal PAP: Last mammogram: done today History of abnormal mammogram: Colon cancer screening: colonoscopy done last April Other preventative health care screenings: PCP [facility] History Menopausal Symptoms: No hot flashes, No night sweats, No weight change, No mood changes, No difficulty concentrating, No sleep problems and No change in libido ROS Const Constitutional: Reports as per HPI; Denies fatigue, increased appetite, poor appetite, night sweats, weight gain or weight loss Cardio Card: Denies chest pain Resp Resp: Denies cough or dyspnea GI GI: Reports as per HPI; Denies abdominal pain, bloating, constipation, nausea or vomiting : Reports as per HPI and other; Denies difficulty voiding, dysuria, hematuria, hot flashes, nipple discharge, pelvic pain, prolapse symptoms, urinary frequency, urinary incontinence, urinaryurgency, vaginal discharge, vaginal dryness, vaginal odor or vaginal pruritus Skin Skin/Breast: Denies changing lesions, breast mass, breast pain, breast skin changes or nipple discharge Psych Psych: Denies anxiety, change in libido, depression or difficulty concentrating Exam Const General: cooperative, healthy appearing, comfortable, no acute distress, well developed and well groomed HENMT Head: normal to inspection and normocephalic Ears: hearing grossly normal bilaterally and external ears normal Nose: external nose normal Face and sinus: normal facial exam Neck Neck: normal visual inspection, full ROM and no lymphadenopathy Thyroid: thyroid normal Chest Chest palpation & inspection: normal inspection of the chest Breast inspection: normal inspection of the breasts and normal inspection of theaxillae Breast palpation: normal palpation of the breasts, normal palpation of the axillae and no axillary lymphadenopathy Resp Effort & Inspection: normal respiratory effort GI Inspection: normal to inspection and non-distended Palpation: soft, no hepatosplenomegaly and no guarding General: bladder normal to palpation External Female Exam: normal external appearance, normal appearance of the urethra and no lesions Urethra: normal appearance of the urethra and normal palpation Speculum Exam - Vagina: normal appearance of the vagina and normal vaginal discharge Bimanual Exam- Vagina & Uterus: bladder normal to palpation Bimanual Exam- Adnexa, other: normal adnexae, no masses and non-tender Skin General: no rashes or lesions noted Neuro General: patient alert, moves all extremities and no focal motor deficits Extrem General: normal to inspection and no pedal edema Psych Appearance: grossly normal Mental Status: mental status grossly normal Affect: normal affect Speech and Movement: speech and movement normal Attitude: cooperative Coding Level of Care Code Off vis,est,prev 40-64yrs Diagnoses Encounter for gynecological examination without abnormal finding Z01.419 Gynecological examination findings: abnormal findings ABSENT Assessment and Plan Assessment and Plan (1) Encounter for routine gynecological examination: Qualifiers: Gynecological examination findings: abnormal findings ABSENT Qualified Code(s): Z01.419 - Encounter for gynecological examination (general) (routine) without abnormal findings Plan Cervical cancer screening: hyst Breast cancer screening: mamm other health maintenance examination reviewed and orders [...] health maintenance exam or sooner if needed. 09/18/24 0832 <Electronically signed by Katey diehl MD> Date _ Katey Elizabeth MD Cosigner Signature: Date (if applicable) CC: ~ [facility] [facility] Work Phone: Reason for referral (narrative)No [facility] for [facility] Work Phone: Family History No Family History Records FoundUnknown Family Member Name Dates Details Family Members In General Comments:ETOH, Cancer, DM, D rug abuse, Anxiety, depression, HBP, high cholesterol, Suicide, Ulcer Status:Active Father Comments:Suicide Status:Active Unknown Family Member Name Dates Details Family Members In General Comments:ETOH, Cancer, DM, D rug abuse, Anxiety, depression, HBP, high cholesterol, Suicide, Ulcer Status:Active Father Comments:Suicide Status:Active Unknown Family Member Name Dates Details Family Members In General Comments:ETOH, Cancer, DM, D rug abuse, Anxiety, depression, HBP, high cholesterol, Suicide, Ulcer Status:Active Father Comments:Suicide Status:Active Unknown Family Member Name Dates Details Family Members In General Comments:ETOH, Cancer, DM, D rug abuse, Anxiety, depression, HBP, high cholesterol, Suicide, Ulcer Status:Active Father Comments:Suicide Status:Active Unknown Family Member Name Dates Details Family Members In General Comments:ETOH, Cancer, DM, D rug abuse, Anxiety, depression, HBP, high cholesterol, Suicide, Ulcer Status:Active Father Comments:Suicide Status:Active Unknown Family Member Name Dates Details Family Members In General Comments:ETOH, Cancer, DM, D rug abuse, Anxiety, depression, HBP, high cholesterol, Suicide, Ulcer Status:Active Father Comments:Suicide Status:Active Unknown Family Member Name Dates Details Family Members In General Comments:ETOH, Cancer, DM, D rug abuse, Anxiety, depression, HBP, high cholesterol, Suicide, Ulcer Status:Active Father Comments:Suicide Status:Active Unknown Family Member Name Dates Details Family Members In General Comments:ETOH, Cancer, DM, D rug abuse, Anxiety, depression, HBP, high cholesterol, Suicide, Ulcer Status:Active Father Comments:Suicide Status:Active Unknown Family Member Name Dates Details Family Members In General Comments:ETOH, Cancer, DM, D rug abuse, Anxiety, depression, HBP, high cholesterol, Suicide, Ulcer Status:Active Father Comments:Suicide Status:Active Unknown Family Member Name Dates Details Family Members In General Comments:ETOH, Cancer, DM, D rug abuse, Anxiety, depression, HBP, high cholesterol, Suicide, Ulcer Status:Active Father Comments:Suicide Status:Active Unknown Family Member Name Dates Details Family Members In General Comments:ETOH, Cancer, DM, D rug abuse, Anxiety, depression, HBP, high cholesterol, Suicide, Ulcer Status:Active Father Comments:Suicide Status:Active Relationship Condition Age at Onset Recorded Date/T ileana mother Hypertension Unknown father Suicide Unknown uncle Suicide Unknown Unknown Family Member Name Dates Details Family Members In General Comments:ETOH, Cancer, DM, D rug abuse, Anxiety, depression, HBP, high cholesterol, Suicide, Ulcer Status:Active Father Comments:Suicide Status:Active Unknown Family Member Name Dates Details Family Members In General Comments:ETOH, Cancer, DM, D rug abuse, Anxiety, depression, HBP, high cholesterol, Suicide, Ulcer Status:Active Father Comments:Suicide Status:Active Unknown Family Member Name Dates Details Family Members In General Comments:ETOH, Cancer, DM, D rug abuse, Anxiety, depression, HBP, high cholesterol, Suicide, Ulcer Status:Active Father Comments:Suicide Status:Active Unknown Family Member Name Dates Details Family Members In General Comments:ETOH, Cancer, DM, D rug abuse, Anxiety, depression, HBP, high cholesterol, Suicide, Ulcer Status:Active Father Comments:Suicide Status:Active Unknown Family Member Name Dates Details Family Members In General Comments:ETOH, Cancer, DM, D rug abuse, Anxiety, depression, HBP, high cholesterol, Suicide, Ulcer Status:Active Father Comments:Suicide Status:Active Unknown Family Member Name Dates Details Family Members In General Comments:ETOH, Cancer, DM, D rug abuse, Anxiety, depression, HBP, high cholesterol, Suicide, Ulcer Status:Active Father Comments:Suicide Status:Active Unknown Family Member Name Dates Details Family Members In General Comments:ETOH, Cancer, DM, D rug abuse, Anxiety, depression, HBP, high cholesterol, Suicide, Ulcer Status:Active Father Comments:Suicide Status:Active Instructions Name Dates Details How to access health informa tion online Indication:Tobacco use Start:01-Feb-2018 Instruction Type:Patient Education How to access health informa tion online - Detail Indication:Tobacco use Start:01-Feb-2018 Instruction Type:Patient Education Patient Instructions Indication:Tobacco use Start:01-Feb-2018 Instruction Type:Provider Instructions for Treatment How to access health informa tion online Indication:BMI 33.0-33.9,adult Start:26-Jan-2018 Instruction Type:Patient Education How to access health informa tion online - Detail Indication:BMI 33.0-33.9,adult Start:26-Jan-2018 Instruction Type:Patient Education Patient Instructions Indication:BMI 33.0-33.9,adult Start:26-Jan-2018 Instruction Type:Provider Instructions for Treatment How to access health informa tion online Indication:Tobacco use Start:21-Jan-2018 Instruction Type:Patient Education How to access health informa tion online - Detail Indication:Tobacco use Start:21-Jan-2018 Instruction Type:Patient Education Patient Instructions Indication:Tobacco use Start:21-Jan-2018 Instruction Type:Provider Instructions for Treatment How to access health informa tion online Indication:BMI 31.0-31.9,adult Start:17-Jun-2017 Instruction Type:Patient Education How to access health informa tion online - Detail Indication:BMI 31.0-31.9,adult Start:17-Jun-2017 Instruction Type:Patient Education Patient Instructions Indication:Irritable bowel syndrome Start:17-Jun-2017 Instruction Type:Provider Instructions for Treatment How to access health informa tion online Indication:Hyperglyceridemia Start:04-Mar-2017 Instruction Type:Patient Education How to access health informa tion online - Detail Indication:Hyperglyceridemia Start:04-Mar-2017 Instruction Type:Patient Education Patient Instructions Indication:Hyperglyceridemia Start:04-Mar-2017 Instruction Type:Provider Instructions for Treatment How to access health informa tion online - Detail Indication:Tobacco use Start:25-Feb-2017 Instruction Type:Patient Education How to access health informa tion online Indication:Tobacco use Start:25-Feb-2017 Instruction Type:Patient Education Patient Instructions Indication:Tobacco use Start:25-Feb-2017 Instruction Type:Provider Instructions for Treatment How to access health informa tion online Indication:Tobacco use Start:24-Dec-2016 Instruction Type:Patient Education How to access health informa tion online - Detail Indication:Tobacco use Start:24-Dec-2016 Instruction Type:Patient Education Patient Instructions Indication:Tobacco use Start:24-Dec-2016 Instruction Type:Provider Instructions for Treatment How to access health informa tion online Indication:Tobacco use Start:04-Dec-2016 Instruction Type:Patient Education How to access health informa tion online - Detail Indication:Tobacco use Start:04-Dec-2016 Instruction Type:Patient Education Patient Instructions Indication:Tobacco use Start:04-Dec-2016 Instruction Type:Provider Instructions for Treatment How to access health informa tion online Indication:Tobacco use Start:03-Dec-2016 Instruction Type:Patient Education How to access health informa tion online - Detail Indication:Tobacco use Start:03-Dec-2016 Instruction Type:Patient Education Patient Instructions Indication:Tobacco use Start:03-Dec-2016 Instruction Type:Provider Instructions for Treatment How to access health informa tion online Indication:BMI 30.0-30.9,adult Start:28-Aug-2016 Instruction Type:Patient Education How to access health informa tion online - Detail Indication:BMI 30.0-30.9,adult Start:28-Aug-2016 Instruction Type:Patient Education Patient Instructions Indication:BMI 30.0-30.9,adult Start:28-Aug-2016 Instruction Type:Provider Instructions for Treatment How to access health informa tion online Indication:Intractable vomiting with nausea, unspecified vomiting type Start:05-May-2016 Instruction Type:Patient Education How to access health informa tion online - Detail Indication:Intractable vomiting with nausea, unspecified vomiting type Start:05-May-2016 Instruction Type:Patient Education Patient Instructions Indication:Intractable vomiting with nausea, unspecified vomiting type Start:05-May-2016 Instruction Type:Provider Instructions for Treatment How to access health informa tion online Indication:Tobacco use Start:10-Apr-2016 Instruction Type:Patient Education How to access health informa tion online - Detail Indication:Tobacco use Start:10-Apr-2016 Instruction Type:Patient Education Patient Instructions Indication:Tobacco use Start:10-Apr-2016 Instruction Type:Provider Instructions for Treatment How to access health informa tion online Indication:Dysuria Start:07-Apr-2016 Instruction Type:Patient Education How to access health informa tion online - Detail Indication:Dysuria Start:07-Apr-2016 Instruction Type:Patient Education Patient Instructions Indication:Dysuria Start:07-Apr-2016 Instruction Type:Provider Instructions for Treatment How to access health informa tion online Indication:UTI symptoms Start:02-Mar-2016 Instruction Type:Patient Education How to access health informa tion online - Detail Indication:UTI symptoms Start:02-Mar-2016 Instruction Type:Patient Education Patient Instructions Indication:UTI symptoms Start:02-Mar-2016 Instruction Type:Provider Instructions for Treatment How to access health informa tion online Indication:Hypercholesterolemia Start:14-Feb-2016 Instruction Type:Patient Education How to access health informa tion online - Detail Indication:Hypercholesterolemia Start:14-Feb-2016 Instruction Type:Patient Education Patient Instructions Indication:Hypercholesterolemia Start:14-Feb-2016 Instruction Type:Provider Instructions for Treatment Patient Instructions Indication:Irritable bowel syndrome Start:15-Aug-2015 Instruction Type:Provider Instructions for Treatment Patient Instructions Indication:Vitamin D deficiency Start:15-Aug-2015 Instruction Type:Provider Instructions for Treatment How to access health informa tion online Indication:Abnormal lung sounds Start:08-Aug-2015 Instruction Type:Patient Education How to access health informa tion online - Detail Indication:Abnormal lung sounds Start:08-Aug-2015 Instruction Type:Patient Education Patient Instructions Indication:Abnormal lung sounds Start:08-Aug-2015 Instruction Type:Provider Instructions for Treatment How to access health informa tion online Indication:Thrush, oral Start:24-Jul-2015 Instruction Type:Patient Education How to access health informa tion online - Detail Indication:Thrush, oral Start:24-Jul-2015 Instruction Type:Patient Education Patient Instructions Indication:Thrush, oral Start:24-Jul-2015 Instruction Type:Provider Instructions for Treatment How to access health informa tion online - Detail Indication:Headache Start:23-Apr-2015 Instruction Type:Patient Education How to access health informa tion online Indication:Headache Start:23-Apr-2015 Instruction Type:Patient Education Patient Instructions Indication:Headache Start:23-Apr-2015 Instruction Type:Provider Instructions for Treatment How to access health informa tion online Indication:Headache Start:09-Apr-2015 Instruction Type:Patient Education How to access health informa tion online - Detail Indication:Headache Start:09-Apr-2015 Instruction Type:Patient Education Patient Instructions Indication:Headache Start:09-Apr-2015 Instruction Type:Provider Instructions for Treatment How to access health informa tion online Indication:Anxiety Start:05-Apr-2015 Instruction Type:Patient Education How to access health informa tion online - Detail Indication:Anxiety Start:05-Apr-2015 Instruction Type:Patient Education Patient Instructions Indication:Anxiety Start:05-Apr-2015 Instruction Type:Provider Instructions for Treatment How to access health informa tion online Indication:Headache Start:08-Nov-2014 Instruction Type:Patient Education How to access health informa tion online - Detail Indication:Headache Start:08-Nov-2014 Instruction Type:Patient Education Patient Instructions Indication:Itchy eyes Start:08-Nov-2014 Instruction Type:Provider Instructions for Treatment How to access health informa tion online Indication:Myalgia Start:20-Feb-2014 Instruction Type:Patient Education How to access health informa tion online Indication:Hyperglyceridemia Start:05-Jan-2014 Instruction Type:Patient Education How to access health informa tion online - Detail Indication:Hyperglyceridemia Start:05-Jan-2014 Instruction Type:Patient Education Patient Instructions Indication:Hyperglyceridemia Start:05-Jan-2014 Instruction Type:Provider Instructions for Treatment Patient Instructions Indication:Medication side effect Start:10-Jul-2013 Instruction Type:Provider Instructions for Treatment Patient Instructions Indication:Stress reaction Start:15-Jun-2013 Instruction Type:Provider Instructions for Treatment Patient Instructions Indication:Nausea and vomiting Start:05-Jun-2013 Instruction Type:Provider Instructions for Treatment Patient Instructions Indication:VOLUME DEPLETION DISORDER; DEHYDRATION Start:02-May-2013 Instruction Type:Provider Instructions for Treatment Patient Instructions Indication:Anxiety Start:28-Apr-2013 Instruction Type:Provider Instructions for Treatment Patient Instructions Indication:Shoulder Pain Start:16-Feb-2013 Instruction Type:Provider Instructions for Treatment Patient Instructions Indication:Hyperglyceridemia Start:06-Oct-2012 Instruction Type:Provider Instructions for Treatment Patient Instructions Indication:Hypercholesterolemia Start:10-May-2012 Instruction Type:Provider Instructions for Treatment DISCONTINUED - Renal functio n Panel ([id number]) Indication:Hypercholesterolemia Start:01-Feb-2012 Instruction Type:Patient Education DISCONTINUED - Lipid Panel ( [id number]) Indication:Hypercholesterolemia Start:01-Feb-2012 Instruction Type:Patient Education Patient Instructions Indication:Hypercholesterolemia Start:01-Feb-2012 Instruction Type:Provider Instructions for Treatment Name Dates Details How to access health informa tion online Indication:Tobacco use Start:01-Feb-2018 Instruction Type:Patient Education How to access health informa tion online - Detail Indication:Tobacco use Start:01-Feb-2018 Instruction Type:Patient Education Patient Instructions Indication:Tobacco use Start:01-Feb-2018 Instruction Type:Provider Instructions for Treatment How to access health informa tion online Indication:BMI 33.0-33.9,adult Start:26-Jan-2018 Instruction Type:Patient Education How to access health informa tion online - Detail Indication:BMI 33.0-33.9,adult Start:26-Jan-2018 Instruction Type:Patient Education Patient Instructions Indication:BMI 33.0-33.9,adult Start:26-Jan-2018 Instruction Type:Provider Instructions for Treatment How to access health informa tion online Indication:Tobacco use Start:21-Jan-2018 Instruction Type:Patient Education How to access health informa tion online - Detail Indication:Tobacco use Start:21-Jan-2018 Instruction Type:Patient Education Patient Instructions Indication:Tobacco use Start:21-Jan-2018 Instruction Type:Provider Instructions for Treatment How to access health informa tion online Indication:BMI 31.0-31.9,adult Start:17-Jun-2017 Instruction Type:Patient Education How to access health informa tion online - Detail Indication:BMI 31.0-31.9,adult Start:17-Jun-2017 Instruction Type:Patient Education Patient Instructions Indication:Irritable bowel syndrome Start:17-Jun-2017 Instruction Type:Provider Instructions for Treatment How to access health informa tion online Indication:Hyperglyceridemia Start:04-Mar-2017 Instruction Type:Patient Education How to access health informa tion online - Detail Indication:Hyperglyceridemia Start:04-Mar-2017 Instruction Type:Patient Education Patient Instructions Indication:Hyperglyceridemia Start:04-Mar-2017 Instruction Type:Provider Instructions for Treatment How to access health informa tion online - Detail Indication:Tobacco use Start:25-Feb-2017 Instruction Type:Patient Education How to access health informa tion online Indication:Tobacco use Start:25-Feb-2017 Instruction Type:Patient Education Patient Instructions Indication:Tobacco use Start:25-Feb-2017 Instruction Type:Provider Instructions for Treatment How to access health informa tion online Indication:Tobacco use Start:24-Dec-2016 Instruction Type:Patient Education How to access health informa tion online - Detail Indication:Tobacco use Start:24-Dec-2016 Instruction Type:Patient Education Patient Instructions Indication:Tobacco use Start:24-Dec-2016 Instruction Type:Provider Instructions for Treatment How to access health informa tion online Indication:Tobacco use Start:04-Dec-2016 Instruction Type:Patient Education How to access health informa tion online - Detail Indication:Tobacco use Start:04-Dec-2016 Instruction Type:Patient Education Patient Instructions Indication:Tobacco use Start:04-Dec-2016 Instruction Type:Provider Instructions for Treatment How to access health informa tion online Indication:Tobacco use Start:03-Dec-2016 Instruction Type:Patient Education How to access health informa tion online - Detail Indication:Tobacco use Start:03-Dec-2016 Instruction Type:Patient Education Patient Instructions Indication:Tobacco use Start:03-Dec-2016 Instruction Type:Provider Instructions for Treatment How to access health informa tion online Indication:BMI 30.0-30.9,adult Start:28-Aug-2016 Instruction Type:Patient Education How to access health informa tion online - Detail Indication:BMI 30.0-30.9,adult Start:28-Aug-2016 Instruction Type:Patient Education Patient Instructions Indication:BMI 30.0-30.9,adult Start:28-Aug-2016 Instruction Type:Provider Instructions for Treatment How to access health informa tion online Indication:Intractable vomiting with nausea, unspecified vomiting type Start:05-May-2016 Instruction Type:Patient Education How to access health informa tion online - Detail Indication:Intractable vomiting with nausea, unspecified vomiting type Start:05-May-2016 Instruction Type:Patient Education Patient Instructions Indication:Intractable vomiting with nausea, unspecified vomiting type Start:05-May-2016 Instruction Type:Provider Instructions for Treatment How to access health informa tion online Indication:Tobacco use Start:10-Apr-2016 Instruction Type:Patient Education How to access health informa tion online - Detail Indication:Tobacco use Start:10-Apr-2016 Instruction Type:Patient Education Patient Instructions Indication:Tobacco use Start:10-Apr-2016 Instruction Type:Provider Instructions for Treatment How to access health informa tion online Indication:Dysuria Start:07-Apr-2016 Instruction Type:Patient Education How to access health informa tion online - Detail Indication:Dysuria Start:07-Apr-2016 Instruction Type:Patient Education Patient Instructions Indication:Dysuria Start:07-Apr-2016 Instruction Type:Provider Instructions for Treatment How to access health informa tion online Indication:UTI symptoms Start:02-Mar-2016 Instruction Type:Patient Education How to access health informa tion online - Detail Indication:UTI symptoms Start:02-Mar-2016 Instruction Type:Patient Education Patient Instructions Indication:UTI symptoms Start:02-Mar-2016 Instruction Type:Provider Instructions for Treatment How to access health informa tion online Indication:Hypercholesterolemia Start:14-Feb-2016 Instruction Type:Patient Education How to access health informa tion online - Detail Indication:Hypercholesterolemia Start:14-Feb-2016 Instruction Type:Patient Education Patient Instructions Indication:Hypercholesterolemia Start:14-Feb-2016 Instruction Type:Provider Instructions for Treatment Patient Instructions Indication:Irritable bowel syndrome Start:15-Aug-2015 Instruction Type:Provider Instructions for Treatment Patient Instructions Indication:Vitamin D deficiency Start:15-Aug-2015 Instruction Type:Provider Instructions for Treatment How to access health informa tion online Indication:Abnormal lung sounds Start:08-Aug-2015 Instruction Type:Patient Education How to access health informa tion online - Detail Indication:Abnormal lung sounds Start:08-Aug-2015 Instruction Type:Patient Education Patient Instructions Indication:Abnormal lung sounds Start:08-Aug-2015 Instruction Type:Provider Instructions for Treatment How to access health informa tion online Indication:Thrush, oral Start:24-Jul-2015 Instruction Type:Patient Education How to access health informa tion online - Detail Indication:Thrush, oral Start:24-Jul-2015 Instruction Type:Patient Education Patient Instructions Indication:Thrush, oral Start:24-Jul-2015 Instruction Type:Provider Instructions for Treatment How to access health informa tion online - Detail Indication:Headache Start:23-Apr-2015 Instruction Type:Patient Education How to access health informa tion online Indication:Headache Start:23-Apr-2015 Instruction Type:Patient Education Patient Instructions Indication:Headache Start:23-Apr-2015 Instruction Type:Provider Instructions for Treatment How to access health informa tion online Indication:Headache Start:09-Apr-2015 Instruction Type:Patient Education How to access health informa tion online - Detail Indication:Headache Start:09-Apr-2015 Instruction Type:Patient Education Patient Instructions Indication:Headache Start:09-Apr-2015 Instruction Type:Provider Instructions for Treatment How to access health informa tion online Indication:Anxiety Start:05-Apr-2015 Instruction Type:Patient Education How to access health informa tion online - Detail Indication:Anxiety Start:05-Apr-2015 Instruction Type:Patient Education Patient Instructions Indication:Anxiety Start:05-Apr-2015 Instruction Type:Provider Instructions for Treatment How to access health informa tion online Indication:Headache Start:08-Nov-2014 Instruction Type:Patient Education How to access health informa tion online - Detail Indication:Headache Start:08-Nov-2014 Instruction Type:Patient Education Patient Instructions Indication:Itchy eyes Start:08-Nov-2014 Instruction Type:Provider Instructions for Treatment How to access health informa tion online Indication:Myalgia Start:20-Feb-2014 Instruction Type:Patient Education How to access health informa tion online Indication:Hyperglyceridemia Start:05-Jan-2014 Instruction Type:Patient Education How to access health informa tion online - Detail Indication:Hyperglyceridemia Start:05-Jan-2014 Instruction Type:Patient Education Patient Instructions Indication:Hyperglyceridemia Start:05-Jan-2014 Instruction Type:Provider Instructions for Treatment Patient Instructions Indication:Medication side effect Start:10-Jul-2013 Instruction Type:Provider Instructions for Treatment Patient Instructions Indication:Stress reaction Start:15-Jun-2013 Instruction Type:Provider Instructions for Treatment Patient Instructions Indication:Nausea and vomiting Start:05-Jun-2013 Instruction Type:Provider Instructions for Treatment Patient Instructions Indication:VOLUME DEPLETION DISORDER; DEHYDRATION Start:02-May-2013 Instruction Type:Provider Instructions for Treatment Patient Instructions Indication:Anxiety Start:28-Apr-2013 Instruction Type:Provider Instructions for Treatment Patient Instructions Indication:Shoulder Pain Start:16-Feb-2013 Instruction Type:Provider Instructions for Treatment Patient Instructions Indication:Hyperglyceridemia Start:06-Oct-2012 Instruction Type:Provider Instructions for Treatment Patient Instructions Indication:Hypercholesterolemia Start:10-May-2012 Instruction Type:Provider Instructions for Treatment DISCONTINUED - Renal functio n Panel ([id number]) Indication:Hypercholesterolemia Start:01-Feb-2012 Instruction Type:Patient Education DISCONTINUED - Lipid Panel ( [id number]) Indication:Hypercholesterolemia Start:01-Feb-2012 Instruction Type:Patient Education Patient Instructions Indication:Hypercholesterolemia Start:01-Feb-2012 Instruction Type:Provider Instructions for Treatment Name Dates Details How to access health informa tion online Indication:Nausea and vomiting in adult Start:14-Mar-2019 Instruction Type:Patient Education How to access health informa tion online - Detail Indication:Nausea and vomiting in adult Start:14-Mar-2019 Instruction Type:Patient Education Patient Instructions Indication:BMI 33.0-33.9,adult Start:14-Mar-2019 Instruction Type:Provider Instructions for Treatment How to access health informa tion online Indication:Tobacco use Start:01-Feb-2018 Instruction Type:Patient Education How to access health informa tion online - Detail Indication:Tobacco use Start:01-Feb-2018 Instruction Type:Patient Education Patient Instructions Indication:Tobacco use Start:01-Feb-2018 Instruction Type:Provider Instructions for Treatment How to access health informa tion online Indication:BMI 33.0-33.9,adult Start:26-Jan-2018 Instruction Type:Patient Education How to access health informa tion online - Detail Indication:BMI 33.0-33.9,adult Start:26-Jan-2018 Instruction Type:Patient Education Patient Instructions Indication:BMI 33.0-33.9,adult Start:26-Jan-2018 Instruction Type:Provider Instructions for Treatment How to access health informa tion online Indication:Tobacco use Start:21-Jan-2018 Instruction Type:Patient Education How to access health informa tion online - Detail Indication:Tobacco use Start:21-Jan-2018 Instruction Type:Patient Education Patient Instructions Indication:Tobacco use Start:21-Jan-2018 Instruction Type:Provider Instructions for Treatment How to access health informa tion online Indication:BMI 31.0-31.9,adult Start:17-Jun-2017 Instruction Type:Patient Education How to access health informa tion online - Detail Indication:BMI 31.0-31.9,adult Start:17-Jun-2017 Instruction Type:Patient Education Patient Instructions Indication:Irritable bowel syndrome Start:17-Jun-2017 Instruction Type:Provider Instructions for Treatment How to access health informa tion online Indication:Hyperglyceridemia Start:04-Mar-2017 Instruction Type:Patient Education How to access health informa tion online - Detail Indication:Hyperglyceridemia Start:04-Mar-2017 Instruction Type:Patient Education Patient Instructions Indication:Hyperglyceridemia Start:04-Mar-2017 Instruction Type:Provider Instructions for Treatment How to access health informa tion online - Detail Indication:Tobacco use Start:25-Feb-2017 Instruction Type:Patient Education How to access health informa tion online Indication:Tobacco use Start:25-Feb-2017 Instruction Type:Patient Education Patient Instructions Indication:Tobacco use Start:25-Feb-2017 Instruction Type:Provider Instructions for Treatment How to access health informa tion online Indication:Tobacco use Start:24-Dec-2016 Instruction Type:Patient Education How to access health informa tion online - Detail Indication:Tobacco use Start:24-Dec-2016 Instruction Type:Patient Education Patient Instructions Indication:Tobacco use Start:24-Dec-2016 Instruction Type:Provider Instructions for Treatment How to access health informa tion online Indication:Tobacco use Start:04-Dec-2016 Instruction Type:Patient Education How to access health informa tion online - Detail Indication:Tobacco use Start:04-Dec-2016 Instruction Type:Patient Education Patient Instructions Indication:Tobacco use Start:04-Dec-2016 Instruction Type:Provider Instructions for Treatment How to access health informa tion online Indication:Tobacco use Start:03-Dec-2016 Instruction Type:Patient Education How to access health informa tion online - Detail Indication:Tobacco use Start:03-Dec-2016 Instruction Type:Patient Education Patient Instructions Indication:Tobacco use Start:03-Dec-2016 Instruction Type:Provider Instructions for Treatment How to access health informa tion online Indication:BMI 30.0-30.9,adult Start:28-Aug-2016 Instruction Type:Patient Education How to access health informa tion online - Detail Indication:BMI 30.0-30.9,adult Start:28-Aug-2016 Instruction Type:Patient Education Patient Instructions Indication:BMI 30.0-30.9,adult Start:28-Aug-2016 Instruction Type:Provider Instructions for Treatment How to access health informa tion online Indication:Intractable vomiting with nausea, unspecified vomiting type Start:05-May-2016 Instruction Type:Patient Education How to access health informa tion online - Detail Indication:Intractable vomiting with nausea, unspecified vomiting type Start:05-May-2016 Instruction Type:Patient Education Patient Instructions Indication:Intractable vomiting with nausea, unspecified vomiting type Start:05-May-2016 Instruction Type:Provider Instructions for Treatment How to access health informa tion online Indication:Tobacco use Start:10-Apr-2016 Instruction Type:Patient Education How to access health informa tion online - Detail Indication:Tobacco use Start:10-Apr-2016 Instruction Type:Patient Education Patient Instructions Indication:Tobacco use Start:10-Apr-2016 Instruction Type:Provider Instructions for Treatment How to access health informa tion online Indication:Dysuria Start:07-Apr-2016 Instruction Type:Patient Education How to access health informa tion online - Detail Indication:Dysuria Start:07-Apr-2016 Instruction Type:Patient Education Patient Instructions Indication:Dysuria Start:07-Apr-2016 Instruction Type:Provider Instructions for Treatment How to access health informa tion online Indication:UTI symptoms Start:02-Mar-2016 Instruction Type:Patient Education How to access health informa tion online - Detail Indication:UTI symptoms Start:02-Mar-2016 Instruction Type:Patient Education Patient Instructions Indication:UTI symptoms Start:02-Mar-2016 Instruction Type:Provider Instructions for Treatment How to access health informa tion online Indication:Hypercholesterolemia Start:14-Feb-2016 Instruction Type:Patient Education How to access health informa tion online - Detail Indication:Hypercholesterolemia Start:14-Feb-2016 Instruction Type:Patient Education Patient Instructions Indication:Hypercholesterolemia Start:14-Feb-2016 Instruction Type:Provider Instructions for Treatment Patient Instructions Indication:Irritable bowel syndrome Start:15-Aug-2015 Instruction Type:Provider Instructions for Treatment Patient Instructions Indication:Vitamin D deficiency Start:15-Aug-2015 Instruction Type:Provider Instructions for Treatment How to access health informa tion online Indication:Abnormal lung sounds Start:08-Aug-2015 Instruction Type:Patient Education How to access health informa tion online - Detail Indication:Abnormal lung sounds Start:08-Aug-2015 Instruction Type:Patient Education Patient Instructions Indication:Abnormal lung sounds Start:08-Aug-2015 Instruction Type:Provider Instructions for Treatment How to access health informa tion online Indication:Thrush, oral Start:24-Jul-2015 Instruction Type:Patient Education How to access health informa tion online - Detail Indication:Thrush, oral Start:24-Jul-2015 Instruction Type:Patient Education Patient Instructions Indication:Thrush, oral Start:24-Jul-2015 Instruction Type:Provider Instructions for Treatment How to access health informa tion online - Detail Indication:Headache Start:23-Apr-2015 Instruction Type:Patient Education How to access health informa tion online Indication:Headache Start:23-Apr-2015 Instruction Type:Patient Education Patient Instructions Indication:Headache Start:23-Apr-2015 Instruction Type:Provider Instructions for Treatment How to access health informa tion online Indication:Headache Start:09-Apr-2015 Instruction Type:Patient Education How to access health informa tion online - Detail Indication:Headache Start:09-Apr-2015 Instruction Type:Patient Education Patient Instructions Indication:Headache Start:09-Apr-2015 Instruction Type:Provider Instructions for Treatment How to access health informa tion online Indication:Anxiety Start:05-Apr-2015 Instruction Type:Patient Education How to access health informa tion online - Detail Indication:Anxiety Start:05-Apr-2015 Instruction Type:Patient Education Patient Instructions Indication:Anxiety Start:05-Apr-2015 Instruction Type:Provider Instructions for Treatment How to access health informa tion online Indication:Headache Start:08-Nov-2014 Instruction Type:Patient Education How to access health informa tion online - Detail Indication:Headache Start:08-Nov-2014 Instruction Type:Patient Education Patient Instructions Indication:Itchy eyes Start:08-Nov-2014 Instruction Type:Provider Instructions for Treatment How to access health informa tion online Indication:Myalgia Start:20-Feb-2014 Instruction Type:Patient Education How to access health informa tion online Indication:Hyperglyceridemia Start:05-Jan-2014 Instruction Type:Patient Education How to access health informa tion online - Detail Indication:Hyperglyceridemia Start:05-Jan-2014 Instruction Type:Patient Education Patient Instructions Indication:Hyperglyceridemia Start:05-Jan-2014 Instruction Type:Provider Instructions for Treatment Patient Instructions Indication:Medication side effect Start:10-Jul-2013 Instruction Type:Provider Instructions for Treatment Patient Instructions Indication:Stress reaction Start:15-Jun-2013 Instruction Type:Provider Instructions for Treatment Patient Instructions Indication:Nausea and vomiting Start:05-Jun-2013 Instruction Type:Provider Instructions for Treatment Patient Instructions Indication:VOLUME DEPLETION DISORDER; DEHYDRATION Start:02-May-2013 Instruction Type:Provider Instructions for Treatment Patient Instructions Indication:Anxiety Start:28-Apr-2013 Instruction Type:Provider Instructions for Treatment Patient Instructions Indication:Shoulder Pain Start:16-Feb-2013 Instruction Type:Provider Instructions for Treatment Patient Instructions Indication:Hyperglyceridemia Start:06-Oct-2012 Instruction Type:Provider Instructions for Treatment Patient Instructions Indication:Hypercholesterolemia Start:10-May-2012 Instruction Type:Provider Instructions for Treatment DISCONTINUED - Renal functio n Panel ([id number]) Indication:Hypercholesterolemia Start:01-Feb-2012 Instruction Type:Patient Education DISCONTINUED - Lipid Panel ( [id number]) Indication:Hypercholesterolemia Start:01-Feb-2012 Instruction Type:Patient Education Patient Instructions Indication:Hypercholesterolemia Start:01-Feb-2012 Instruction Type:Provider Instructions for Treatment Name Dates Details How to access health informa tion online Indication:Nausea and vomiting in adult Start:14-Mar-2019 Instruction Type:Patient Education How to access health informa tion online - Detail Indication:Nausea and vomiting in adult Start:14-Mar-2019 Instruction Type:Patient Education Patient Instructions Indication:BMI 33.0-33.9,adult Start:14-Mar-2019 Instruction Type:Provider Instructions for Treatment How to access health informa tion online Indication:Tobacco use Start:01-Feb-2018 Instruction Type:Patient Education How to access health informa tion online - Detail Indication:Tobacco use Start:01-Feb-2018 Instruction Type:Patient Education Patient Instructions Indication:Tobacco use Start:01-Feb-2018 Instruction Type:Provider Instructions for Treatment How to access health informa tion online Indication:BMI 33.0-33.9,adult Start:26-Jan-2018 Instruction Type:Patient Education How to access health informa tion online - Detail Indication:BMI 33.0-33.9,adult Start:26-Jan-2018 Instruction Type:Patient Education Patient Instructions Indication:BMI 33.0-33.9,adult Start:26-Jan-2018 Instruction Type:Provider Instructions for Treatment How to access health informa tion online Indication:Tobacco use Start:21-Jan-2018 Instruction Type:Patient Education How to access health informa tion online - Detail Indication:Tobacco use Start:21-Jan-2018 Instruction Type:Patient Education Patient Instructions Indication:Tobacco use Start:21-Jan-2018 Instruction Type:Provider Instructions for Treatment How to access health informa tion online Indication:BMI 31.0-31.9,adult Start:17-Jun-2017 Instruction Type:Patient Education How to access health informa tion online - Detail Indication:BMI 31.0-31.9,adult Start:17-Jun-2017 Instruction Type:Patient Education Patient Instructions Indication:Irritable bowel syndrome Start:17-Jun-2017 Instruction Type:Provider Instructions for Treatment How to access health informa tion online Indication:Hyperglyceridemia Start:04-Mar-2017 Instruction Type:Patient Education How to access health informa tion online - Detail Indication:Hyperglyceridemia Start:04-Mar-2017 Instruction Type:Patient Education Patient Instructions Indication:Hyperglyceridemia Start:04-Mar-2017 Instruction Type:Provider Instructions for Treatment How to access health informa tion online - Detail Indication:Tobacco use Start:25-Feb-2017 Instruction Type:Patient Education How to access health informa tion online Indication:Tobacco use Start:25-Feb-2017 Instruction Type:Patient Education Patient Instructions Indication:Tobacco use Start:25-Feb-2017 Instruction Type:Provider Instructions for Treatment How to access health informa tion online Indication:Tobacco use Start:24-Dec-2016 Instruction Type:Patient Education How to access health informa tion online - Detail Indication:Tobacco use Start:24-Dec-2016 Instruction Type:Patient Education Patient Instructions Indication:Tobacco use Start:24-Dec-2016 Instruction Type:Provider Instructions for Treatment How to access health informa tion online Indication:Tobacco use Start:04-Dec-2016 Instruction Type:Patient Education How to access health informa tion online - Detail Indication:Tobacco use Start:04-Dec-2016 Instruction Type:Patient Education Patient Instructions Indication:Tobacco use Start:04-Dec-2016 Instruction Type:Provider Instructions for Treatment How to access health informa tion online Indication:Tobacco use Start:03-Dec-2016 Instruction Type:Patient Education How to access health informa tion online - Detail Indication:Tobacco use Start:03-Dec-2016 Instruction Type:Patient Education Patient Instructions Indication:Tobacco use Start:03-Dec-2016 Instruction Type:Provider Instructions for Treatment How to access health informa tion online Indication:BMI 30.0-30.9,adult Start:28-Aug-2016 Instruction Type:Patient Education How to access health informa tion online - Detail Indication:BMI 30.0-30.9,adult Start:28-Aug-2016 Instruction Type:Patient Education Patient Instructions Indication:BMI 30.0-30.9,adult Start:28-Aug-2016 Instruction Type:Provider Instructions for Treatment How to access health informa tion online Indication:Intractable vomiting with nausea, unspecified vomiting type Start:05-May-2016 Instruction Type:Patient Education How to access health informa tion online - Detail Indication:Intractable vomiting with nausea, unspecified vomiting type Start:05-May-2016 Instruction Type:Patient Education Patient Instructions Indication:Intractable vomiting with nausea, unspecified vomiting type Start:05-May-2016 Instruction Type:Provider Instructions for Treatment How to access health informa tion online Indication:Tobacco use Start:10-Apr-2016 Instruction Type:Patient Education How to access health informa tion online - Detail Indication:Tobacco use Start:10-Apr-2016 Instruction Type:Patient Education Patient Instructions Indication:Tobacco use Start:10-Apr-2016 Instruction Type:Provider Instructions for Treatment How to access health informa tion online Indication:Dysuria Start:07-Apr-2016 Instruction Type:Patient Education How to access health informa tion online - Detail Indication:Dysuria Start:07-Apr-2016 Instruction Type:Patient Education Patient Instructions Indication:Dysuria Start:07-Apr-2016 Instruction Type:Provider Instructions for Treatment How to access health informa tion online Indication:UTI symptoms Start:02-Mar-2016 Instruction Type:Patient Education How to access health informa tion online - Detail Indication:UTI symptoms Start:02-Mar-2016 Instruction Type:Patient Education Patient Instructions Indication:UTI symptoms Start:02-Mar-2016 Instruction Type:Provider Instructions for Treatment How to access health informa tion online Indication:Hypercholesterolemia Start:14-Feb-2016 Instruction Type:Patient Education How to access health informa tion online - Detail Indication:Hypercholesterolemia Start:14-Feb-2016 Instruction Type:Patient Education Patient Instructions Indication:Hypercholesterolemia Start:14-Feb-2016 Instruction Type:Provider Instructions for Treatment Patient Instructions Indication:Irritable bowel syndrome Start:15-Aug-2015 Instruction Type:Provider Instructions for Treatment Patient Instructions Indication:Vitamin D deficiency Start:15-Aug-2015 Instruction Type:Provider Instructions for Treatment How to access health informa tion online Indication:Abnormal lung sounds Start:08-Aug-2015 Instruction Type:Patient Education How to access health informa tion online - Detail Indication:Abnormal lung sounds Start:08-Aug-2015 Instruction Type:Patient Education Patient Instructions Indication:Abnormal lung sounds Start:08-Aug-2015 Instruction Type:Provider Instructions for Treatment How to access health informa tion online Indication:Thrush, oral Start:24-Jul-2015 Instruction Type:Patient Education How to access health informa tion online - Detail Indication:Thrush, oral Start:24-Jul-2015 Instruction Type:Patient Education Patient Instructions Indication:Thrush, oral Start:24-Jul-2015 Instruction Type:Provider Instructions for Treatment How to access health informa tion online - Detail Indication:Headache Start:23-Apr-2015 Instruction Type:Patient Education How to access health informa tion online Indication:Headache Start:23-Apr-2015 Instruction Type:Patient Education Patient Instructions Indication:Headache Start:23-Apr-2015 Instruction Type:Provider Instructions for Treatment How to access health informa tion online Indication:Headache Start:09-Apr-2015 Instruction Type:Patient Education How to access health informa tion online - Detail Indication:Headache Start:09-Apr-2015 Instruction Type:Patient Education Patient Instructions Indication:Headache Start:09-Apr-2015 Instruction Type:Provider Instructions for Treatment How to access health informa tion online Indication:Anxiety Start:05-Apr-2015 Instruction Type:Patient Education How to access health informa tion online - Detail Indication:Anxiety Start:05-Apr-2015 Instruction Type:Patient Education Patient Instructions Indication:Anxiety Start:05-Apr-2015 Instruction Type:Provider Instructions for Treatment How to access health informa tion online Indication:Headache Start:08-Nov-2014 Instruction Type:Patient Education How to access health informa tion online - Detail Indication:Headache Start:08-Nov-2014 Instruction Type:Patient Education Patient Instructions Indication:Itchy eyes Start:08-Nov-2014 Instruction Type:Provider Instructions for Treatment How to access health informa tion online Indication:Myalgia Start:20-Feb-2014 Instruction Type:Patient Education How to access health informa tion online Indication:Hyperglyceridemia Start:05-Jan-2014 Instruction Type:Patient Education How to access health informa tion online - Detail Indication:Hyperglyceridemia Start:05-Jan-2014 Instruction Type:Patient Education Patient Instructions Indication:Hyperglyceridemia Start:05-Jan-2014 Instruction Type:Provider Instructions for Treatment Patient Instructions Indication:Medication side effect Start:10-Jul-2013 Instruction Type:Provider Instructions for Treatment Patient Instructions Indication:Stress reaction Start:15-Jun-2013 Instruction Type:Provider Instructions for Treatment Patient Instructions Indication:Nausea and vomiting Start:05-Jun-2013 Instruction Type:Provider Instructions for Treatment Patient Instructions Indication:VOLUME DEPLETION DISORDER; DEHYDRATION Start:02-May-2013 Instruction Type:Provider Instructions for Treatment Patient Instructions Indication:Anxiety Start:28-Apr-2013 Instruction Type:Provider Instructions for Treatment Patient Instructions Indication:Shoulder Pain Start:16-Feb-2013 Instruction Type:Provider Instructions for Treatment Patient Instructions Indication:Hyperglyceridemia Start:06-Oct-2012 Instruction Type:Provider Instructions for Treatment Patient Instructions Indication:Hypercholesterolemia Start:10-May-2012 Instruction Type:Provider Instructions for Treatment DISCONTINUED - Renal functio n Evelina ([id number]) Indication:Hypercholesterolemia Start:01-Feb-2012 Instruction Type:Patient Education DISCONTINUED - Lipid Panel ( [id number]) Indication:Hypercholesterolemia Start:01-Feb-2012 Instruction Type:Patient Education Patient Instructions Indication:Hypercholesterolemia Start:01-Feb-2012 Instruction Type:Provider Instructions for Treatment Name Dates Details How to access health informa tion online Indication:Smoker Start:22-Dec-2019 Instruction Type:Patient Education How to access health informa tion online - Detail Indication:Smoker Start:22-Dec-2019 Instruction Type:Patient Education Patient Instructions Indication:Smoker Start:22-Dec-2019 Instruction Type:Provider Instructions for Treatment How to access health informa tion online Indication:Smoker Start:12-Sep-2019 Instruction Type:Patient Education How to access health informa tion online - Detail Indication:Smoker Start:12-Sep-2019 Instruction Type:Patient Education Patient Instructions Indication:Smoker Start:12-Sep-2019 Instruction Type:Provider Instructions for Treatment How to access health informa tion online Indication:BMI 32.0-32.9,adult Start:04-Sep-2019 Instruction Type:Patient Education How to access health informa tion online - Detail Indication:BMI 32.0-32.9,adult Start:04-Sep-2019 Instruction Type:Patient Education Patient Instructions Indication:BMI 32.0-32.9,adult Start:04-Sep-2019 Instruction Type:Provider Instructions for Treatment How to access health informa tion online Indication:Diarrhea Start:30-Aug-2019 Instruction Type:Patient Education How to access health informa tion online - Detail Indication:Diarrhea Start:30-Aug-2019 Instruction Type:Patient Education Patient Instructions Indication:Diarrhea Start:30-Aug-2019 Instruction Type:Provider Instructions for Treatment How to access health informa tion online Indication:Smoker Start:21-Jul-2019 Instruction Type:Patient Education How to access health informa tion online - Detail Indication:Smoker Start:21-Jul-2019 Instruction Type:Patient Education Patient Instructions Indication:Smoker Start:21-Jul-2019 Instruction Type:Provider Instructions for Treatment How to access health informa tion online Indication:Nausea and vomiting in adult Start:14-Mar-2019 Instruction Type:Patient Education How to access health informa tion online - Detail Indication:Nausea and vomiting in adult Start:14-Mar-2019 Instruction Type:Patient Education Patient Instructions Indication:BMI 33.0-33.9,adult Start:14-Mar-2019 Instruction Type:Provider Instructions for Treatment How to access health informa tion online Indication:Tobacco use Start:01-Feb-2018 Instruction Type:Patient Education How to access health informa tion online - Detail Indication:Tobacco use Start:01-Feb-2018 Instruction Type:Patient Education Patient Instructions Indication:Tobacco use Start:01-Feb-2018 Instruction Type:Provider Instructions for Treatment How to access health informa tion online Indication:BMI 33.0-33.9,adult Start:26-Jan-2018 Instruction Type:Patient Education How to access health informa tion online - Detail Indication:BMI 33.0-33.9,adult Start:26-Jan-2018 Instruction Type:Patient Education Patient Instructions Indication:BMI 33.0-33.9,adult Start:26-Jan-2018 Instruction Type:Provider Instructions for Treatment How to access health informa tion online Indication:Tobacco use Start:21-Jan-2018 Instruction Type:Patient Education How to access health informa tion online - Detail Indication:Tobacco use Start:21-Jan-2018 Instruction Type:Patient Education Patient Instructions Indication:Tobacco use Start:21-Jan-2018 Instruction Type:Provider Instructions for Treatment How to access health informa tion online Indication:BMI 31.0-31.9,adult Start:17-Jun-2017 Instruction Type:Patient Education How to access health informa tion online - Detail Indication:BMI 31.0-31.9,adult Start:17-Jun-2017 Instruction Type:Patient Education Patient Instructions Indication:Irritable bowel syndrome Start:17-Jun-2017 Instruction Type:Provider Instructions for Treatment How to access health informa tion online Indication:Hyperglyceridemia Start:04-Mar-2017 Instruction Type:Patient Education How to access health informa tion online - Detail Indication:Hyperglyceridemia Start:04-Mar-2017 Instruction Type:Patient Education Patient Instructions Indication:Hyperglyceridemia Start:04-Mar-2017 Instruction Type:Provider Instructions for Treatment How to access health informa tion online - Detail Indication:Tobacco use Start:25-Feb-2017 Instruction Type:Patient Education How to access health informa tion online Indication:Tobacco use Start:25-Feb-2017 Instruction Type:Patient Education Patient Instructions Indication:Tobacco use Start:25-Feb-2017 Instruction Type:Provider Instructions for Treatment How to access health informa tion online Indication:Tobacco use Start:24-Dec-2016 Instruction Type:Patient Education How to access health informa tion online - Detail Indication:Tobacco use Start:24-Dec-2016 Instruction Type:Patient Education Patient Instructions Indication:Tobacco use Start:24-Dec-2016 Instruction Type:Provider Instructions for Treatment How to access health informa tion online Indication:Tobacco use Start:04-Dec-2016 Instruction Type:Patient Education How to access health informa tion online - Detail Indication:Tobacco use Start:04-Dec-2016 Instruction Type:Patient Education Patient Instructions Indication:Tobacco use Start:04-Dec-2016 Instruction Type:Provider Instructions for Treatment How to access health informa tion online Indication:Tobacco use Start:03-Dec-2016 Instruction Type:Patient Education How to access health informa tion online - Detail Indication:Tobacco use Start:03-Dec-2016 Instruction Type:Patient Education Patient Instructions Indication:Tobacco use Start:03-Dec-2016 Instruction Type:Provider Instructions for Treatment How to access health informa tion online Indication:BMI 30.0-30.9,adult Start:28-Aug-2016 Instruction Type:Patient Education How to access health informa tion online - Detail Indication:BMI 30.0-30.9,adult Start:28-Aug-2016 Instruction Type:Patient Education Patient Instructions Indication:BMI 30.0-30.9,adult Start:28-Aug-2016 Instruction Type:Provider Instructions for Treatment How to access health informa tion online Indication:Intractable vomiting with nausea, unspecified vomiting type Start:05-May-2016 Instruction Type:Patient Education How to access health informa tion online - Detail Indication:Intractable vomiting with nausea, unspecified vomiting type Start:05-May-2016 Instruction Type:Patient Education Patient Instructions Indication:Intractable vomiting with nausea, unspecified vomiting type Start:05-May-2016 Instruction Type:Provider Instructions for Treatment How to access health informa tion online Indication:Tobacco use Start:10-Apr-2016 Instruction Type:Patient Education How to access health informa tion online - Detail Indication:Tobacco use Start:10-Apr-2016 Instruction Type:Patient Education Patient Instructions Indication:Tobacco use Start:10-Apr-2016 Instruction Type:Provider Instructions for Treatment How to access health informa tion online Indication:Dysuria Start:07-Apr-2016 Instruction Type:Patient Education How to access health informa tion online - Detail Indication:Dysuria Start:07-Apr-2016 Instruction Type:Patient Education Patient Instructions Indication:Dysuria Start:07-Apr-2016 Instruction Type:Provider Instructions for Treatment How to access health informa tion online Indication:UTI symptoms Start:02-Mar-2016 Instruction Type:Patient Education How to access health informa tion online - Detail Indication:UTI symptoms Start:02-Mar-2016 Instruction Type:Patient Education Patient Instructions Indication:UTI symptoms Start:02-Mar-2016 Instruction Type:Provider Instructions for Treatment How to access health informa tion online Indication:Hypercholesterolemia Start:14-Feb-2016 Instruction Type:Patient Education How to access health informa tion online - Detail Indication:Hypercholesterolemia Start:14-Feb-2016 Instruction Type:Patient Education Patient Instructions Indication:Hypercholesterolemia Start:14-Feb-2016 Instruction Type:Provider Instructions for Treatment Patient Instructions Indication:Irritable bowel syndrome Start:15-Aug-2015 Instruction Type:Provider Instructions for Treatment Patient Instructions Indication:Vitamin D deficiency Start:15-Aug-2015 Instruction Type:Provider Instructions for Treatment How to access health informa tion online Indication:Abnormal lung sounds Start:08-Aug-2015 Instruction Type:Patient Education How to access health informa tion online - Detail Indication:Abnormal lung sounds Start:08-Aug-2015 Instruction Type:Patient Education Patient Instructions Indication:Abnormal lung sounds Start:08-Aug-2015 Instruction Type:Provider Instructions for Treatment How to access health informa tion online Indication:Thrush, oral Start:24-Jul-2015 Instruction Type:Patient Education How to access health informa tion online - Detail Indication:Thrush, oral Start:24-Jul-2015 Instruction Type:Patient Education Patient Instructions Indication:Thrush, oral Start:24-Jul-2015 Instruction Type:Provider Instructions for Treatment How to access health informa tion online - Detail Indication:Headache Start:23-Apr-2015 Instruction Type:Patient Education How to access health informa tion online Indication:Headache Start:23-Apr-2015 Instruction Type:Patient Education Patient Instructions Indication:Headache Start:23-Apr-2015 Instruction Type:Provider Instructions for Treatment How to access health informa tion online Indication:Headache Start:09-Apr-2015 Instruction Type:Patient Education How to access health informa tion online - Detail Indication:Headache Start:09-Apr-2015 Instruction Type:Patient Education Patient Instructions Indication:Headache Start:09-Apr-2015 Instruction Type:Provider Instructions for Treatment How to access health informa tion online Indication:Anxiety Start:05-Apr-2015 Instruction Type:Patient Education How to access health informa tion online - Detail Indication:Anxiety Start:05-Apr-2015 Instruction Type:Patient Education Patient Instructions Indication:Anxiety Start:05-Apr-2015 Instruction Type:Provider Instructions for Treatment How to access health informa tion online Indication:Headache Start:08-Nov-2014 Instruction Type:Patient Education How to access health informa tion online - Detail Indication:Headache Start:08-Nov-2014 Instruction Type:Patient Education Patient Instructions Indication:Itchy eyes Start:08-Nov-2014 Instruction Type:Provider Instructions for Treatment How to access health informa tion online Indication:Myalgia Start:20-Feb-2014 Instruction Type:Patient Education How to access health informa tion online Indication:Hyperglyceridemia Start:05-Jan-2014 Instruction Type:Patient Education How to access health informa tion online - Detail Indication:Hyperglyceridemia Start:05-Jan-2014 Instruction Type:Patient Education Patient Instructions Indication:Hyperglyceridemia Start:05-Jan-2014 Instruction Type:Provider Instructions for Treatment Patient Instructions Indication:Medication side effect Start:10-Jul-2013 Instruction Type:Provider Instructions for Treatment Patient Instructions Indication:Stress reaction Start:15-Jun-2013 Instruction Type:Provider Instructions for Treatment Patient Instructions Indication:Nausea and vomiting Start:05-Jun-2013 Instruction Type:Provider Instructions for Treatment Patient Instructions Indication:VOLUME DEPLETION DISORDER; DEHYDRATION Start:02-May-2013 Instruction Type:Provider Instructions for Treatment Patient Instructions Indication:Anxiety Start:28-Apr-2013 Instruction Type:Provider Instructions for Treatment Patient Instructions Indication:Shoulder Pain Start:16-Feb-2013 Instruction Type:Provider Instructions for Treatment Patient Instructions Indication:Hyperglyceridemia Start:06-Oct-2012 Instruction Type:Provider Instructions for Treatment Patient Instructions Indication:Hypercholesterolemia Start:10-May-2012 Instruction Type:Provider Instructions for Treatment DISCONTINUED - Renal functio n Panel (41294) Indication:Hypercholesterolemia Start:01-Feb-2012 Instruction Type:Patient Education DISCONTINUED - Lipid Panel ( [id number]) Indication:Hypercholesterolemia Start:01-Feb-2012 Instruction Type:Patient Education Patient Instructions Indication:Hypercholesterolemia Start:01-Feb-2012 Instruction Type:Provider Instructions for Treatment Name Dates Details How to access health informa tion online Indication:Smoker Start:22-Dec-2019 Instruction Type:Patient Education How to access health informa tion online - Detail Indication:Smoker Start:22-Dec-2019 Instruction Type:Patient Education Patient Instructions Indication:Smoker Start:22-Dec-2019 Instruction Type:Provider Instructions for Treatment How to access health informa tion online Indication:Smoker Start:12-Sep-2019 Instruction Type:Patient Education How to access health informa tion online - Detail Indication:Smoker Start:12-Sep-2019 Instruction Type:Patient Education Patient Instructions Indication:Smoker Start:12-Sep-2019 Instruction Type:Provider Instructions for Treatment How to access health informa tion online Indication:BMI 32.0-32.9,adult Start:04-Sep-2019 Instruction Type:Patient Education How to access health informa tion online - Detail Indication:BMI 32.0-32.9,adult Start:04-Sep-2019 Instruction Type:Patient Education Patient Instructions Indication:BMI 32.0-32.9,adult Start:04-Sep-2019 Instruction Type:Provider Instructions for Treatment How to access health informa tion online Indication:Diarrhea Start:30-Aug-2019 Instruction Type:Patient Education How to access health informa tion online - Detail Indication:Diarrhea Start:30-Aug-2019 Instruction Type:Patient Education Patient Instructions Indication:Diarrhea Start:30-Aug-2019 Instruction Type:Provider Instructions for Treatment How to access health informa tion online Indication:Smoker Start:21-Jul-2019 Instruction Type:Patient Education How to access health informa tion online - Detail Indication:Smoker Start:21-Jul-2019 Instruction Type:Patient Education Patient Instructions Indication:Smoker Start:21-Jul-2019 Instruction Type:Provider Instructions for Treatment How to access health informa tion online Indication:Nausea and vomiting in adult Start:14-Mar-2019 Instruction Type:Patient Education How to access health informa tion online - Detail Indication:Nausea and vomiting in adult Start:14-Mar-2019 Instruction Type:Patient Education Patient Instructions Indication:BMI 33.0-33.9,adult Start:14-Mar-2019 Instruction Type:Provider Instructions for Treatment How to access health informa tion online Indication:Tobacco use Start:01-Feb-2018 Instruction Type:Patient Education How to access health informa tion online - Detail Indication:Tobacco use Start:01-Feb-2018 Instruction Type:Patient Education Patient Instructions Indication:Tobacco use Start:01-Feb-2018 Instruction Type:Provider Instructions for Treatment How to access health informa tion online Indication:BMI 33.0-33.9,adult Start:26-Jan-2018 Instruction Type:Patient Education How to access health informa tion online - Detail Indication:BMI 33.0-33.9,adult Start:26-Jan-2018 Instruction Type:Patient Education Patient Instructions Indication:BMI 33.0-33.9,adult Start:26-Jan-2018 Instruction Type:Provider Instructions for Treatment How to access health informa tion online Indication:Tobacco use Start:21-Jan-2018 Instruction Type:Patient Education How to access health informa tion online - Detail Indication:Tobacco use Start:21-Jan-2018 Instruction Type:Patient Education Patient Instructions Indication:Tobacco use Start:21-Jan-2018 Instruction Type:Provider Instructions for Treatment How to access health informa tion online Indication:BMI 31.0-31.9,adult Start:17-Jun-2017 Instruction Type:Patient Education How to access health informa tion online - Detail Indication:BMI 31.0-31.9,adult Start:17-Jun-2017 Instruction Type:Patient Education Patient Instructions Indication:Irritable bowel syndrome Start:17-Jun-2017 Instruction Type:Provider Instructions for Treatment How to access health informa tion online Indication:Hyperglyceridemia Start:04-Mar-2017 Instruction Type:Patient Education How to access health informa tion online - Detail Indication:Hyperglyceridemia Start:04-Mar-2017 Instruction Type:Patient Education Patient Instructions Indication:Hyperglyceridemia Start:04-Mar-2017 Instruction Type:Provider Instructions for Treatment How to access health informa tion online - Detail Indication:Tobacco use Start:25-Feb-2017 Instruction Type:Patient Education How to access health informa tion online Indication:Tobacco use Start:25-Feb-2017 Instruction Type:Patient Education Patient Instructions Indication:Tobacco use Start:25-Feb-2017 Instruction Type:Provider Instructions for Treatment How to access health informa tion online Indication:Tobacco use Start:24-Dec-2016 Instruction Type:Patient Education How to access health informa tion online - Detail Indication:Tobacco use Start:24-Dec-2016 Instruction Type:Patient Education Patient Instructions Indication:Tobacco use Start:24-Dec-2016 Instruction Type:Provider Instructions for Treatment How to access health informa tion online Indication:Tobacco use Start:04-Dec-2016 Instruction Type:Patient Education How to access health informa tion online - Detail Indication:Tobacco use Start:04-Dec-2016 Instruction Type:Patient Education Patient Instructions Indication:Tobacco use Start:04-Dec-2016 Instruction Type:Provider Instructions for Treatment How to access health informa tion online Indication:Tobacco use Start:03-Dec-2016 Instruction Type:Patient Education How to access health informa tion online - Detail Indication:Tobacco use Start:03-Dec-2016 Instruction Type:Patient Education Patient Instructions Indication:Tobacco use Start:03-Dec-2016 Instruction Type:Provider Instructions for Treatment How to access health informa tion online Indication:BMI 30.0-30.9,adult Start:28-Aug-2016 Instruction Type:Patient Education How to access health informa tion online - Detail Indication:BMI 30.0-30.9,adult Start:28-Aug-2016 Instruction Type:Patient Education Patient Instructions Indication:BMI 30.0-30.9,adult Start:28-Aug-2016 Instruction Type:Provider Instructions for Treatment How to access health informa tion online Indication:Intractable vomiting with nausea, unspecified vomiting type Start:05-May-2016 Instruction Type:Patient Education How to access health informa tion online - Detail Indication:Intractable vomiting with nausea, unspecified vomiting type Start:05-May-2016 Instruction Type:Patient Education Patient Instructions Indication:Intractable vomiting with nausea, unspecified vomiting type Start:05-May-2016 Instruction Type:Provider Instructions for Treatment How to access health informa tion online Indication:Tobacco use Start:10-Apr-2016 Instruction Type:Patient Education How to access health informa tion online - Detail Indication:Tobacco use Start:10-Apr-2016 Instruction Type:Patient Education Patient Instructions Indication:Tobacco use Start:10-Apr-2016 Instruction Type:Provider Instructions for Treatment How to access health informa tion online Indication:Dysuria Start:07-Apr-2016 Instruction Type:Patient Education How to access health informa tion online - Detail Indication:Dysuria Start:07-Apr-2016 Instruction Type:Patient Education Patient Instructions Indication:Dysuria Start:07-Apr-2016 Instruction Type:Provider Instructions for Treatment How to access health informa tion online Indication:UTI symptoms Start:02-Mar-2016 Instruction Type:Patient Education How to access health informa tion online - Detail Indication:UTI symptoms Start:02-Mar-2016 Instruction Type:Patient Education Patient Instructions Indication:UTI symptoms Start:02-Mar-2016 Instruction Type:Provider Instructions for Treatment How to access health informa tion online Indication:Hypercholesterolemia Start:14-Feb-2016 Instruction Type:Patient Education How to access health informa tion online - Detail Indication:Hypercholesterolemia Start:14-Feb-2016 Instruction Type:Patient Education Patient Instructions Indication:Hypercholesterolemia Start:14-Feb-2016 Instruction Type:Provider Instructions for Treatment Patient Instructions Indication:Irritable bowel syndrome Start:15-Aug-2015 Instruction Type:Provider Instructions for Treatment Patient Instructions Indication:Vitamin D deficiency Start:15-Aug-2015 Instruction Type:Provider Instructions for Treatment How to access health informa tion online Indication:Abnormal lung sounds Start:08-Aug-2015 Instruction Type:Patient Education How to access health informa tion online - Detail Indication:Abnormal lung sounds Start:08-Aug-2015 Instruction Type:Patient Education Patient Instructions Indication:Abnormal lung sounds Start:08-Aug-2015 Instruction Type:Provider Instructions for Treatment How to access health informa tion online Indication:Thrush, oral Start:24-Jul-2015 Instruction Type:Patient Education How to access health informa tion online - Detail Indication:Thrush, oral Start:24-Jul-2015 Instruction Type:Patient Education Patient Instructions Indication:Thrush, oral Start:24-Jul-2015 Instruction Type:Provider Instructions for Treatment How to access health informa tion online - Detail Indication:Headache Start:23-Apr-2015 Instruction Type:Patient Education How to access health informa tion online Indication:Headache Start:23-Apr-2015 Instruction Type:Patient Education Patient Instructions Indication:Headache Start:23-Apr-2015 Instruction Type:Provider Instructions for Treatment How to access health informa tion online Indication:Headache Start:09-Apr-2015 Instruction Type:Patient Education How to access health informa tion online - Detail Indication:Headache Start:09-Apr-2015 Instruction Type:Patient Education Patient Instructions Indication:Headache Start:09-Apr-2015 Instruction Type:Provider Instructions for Treatment How to access health informa tion online Indication:Anxiety Start:05-Apr-2015 Instruction Type:Patient Education How to access health informa tion online - Detail Indication:Anxiety Start:05-Apr-2015 Instruction Type:Patient Education Patient Instructions Indication:Anxiety Start:05-Apr-2015 Instruction Type:Provider Instructions for Treatment How to access health informa tion online Indication:Headache Start:08-Nov-2014 Instruction Type:Patient Education How to access health informa tion online - Detail Indication:Headache Start:08-Nov-2014 Instruction Type:Patient Education Patient Instructions Indication:Itchy eyes Start:08-Nov-2014 Instruction Type:Provider Instructions for Treatment How to access health informa tion online Indication:Myalgia Start:20-Feb-2014 Instruction Type:Patient Education How to access health informa tion online Indication:Hyperglyceridemia Start:05-Jan-2014 Instruction Type:Patient Education How to access health informa tion online - Detail Indication:Hyperglyceridemia Start:05-Jan-2014 Instruction Type:Patient Education Patient Instructions Indication:Hyperglyceridemia Start:05-Jan-2014 Instruction Type:Provider Instructions for Treatment Patient Instructions Indication:Medication side effect Start:10-Jul-2013 Instruction Type:Provider Instructions for Treatment Patient Instructions Indication:Stress reaction Start:15-Jun-2013 Instruction Type:Provider Instructions for Treatment Patient Instructions Indication:Nausea and vomiting Start:05-Jun-2013 Instruction Type:Provider Instructions for Treatment Patient Instructions Indication:VOLUME DEPLETION DISORDER; DEHYDRATION Start:02-May-2013 Instruction Type:Provider Instructions for Treatment Patient Instructions Indication:Anxiety Start:28-Apr-2013 Instruction Type:Provider Instructions for Treatment Patient Instructions Indication:Shoulder Pain Start:16-Feb-2013 Instruction Type:Provider Instructions for Treatment Patient Instructions Indication:Hyperglyceridemia Start:06-Oct-2012 Instruction Type:Provider Instructions for Treatment Patient Instructions Indication:Hypercholesterolemia Start:10-May-2012 Instruction Type:Provider Instructions for Treatment DISCONTINUED - Renal functio n Panel ([id number]) Indication:Hypercholesterolemia Start:01-Feb-2012 Instruction Type:Patient Education DISCONTINUED - Lipid Panel ( [id number]) Indication:Hypercholesterolemia Start:01-Feb-2012 Instruction Type:Patient Education Patient Instructions Indication:Hypercholesterolemia Start:01-Feb-2012 Instruction Type:Provider Instructions for Treatment Advance Directives No Advanced Directives Records Found Name Dates Details Immunization Registry [place] - Effective on 12/02/2020. Expiration date unspecified Effective:02-Dec-2020 Advance Directive Response Recorded Date/ Time Living Will No June 16 7:28am Power of Final Canoe Inspector No June 16, 2021 7:28am Name Dates Details Immunization Registry [place] - Effective on 12/02/2020. Expiration date unspecified Effective:02-Dec-2020 Name Dates Details Immunization Registry [place] - Effective on 12/02/2020. Expiration date unspecified Effective:02-Dec-2020 Name Dates Details Immunization Registry [place] - Effective on 12/02/2020. Expiration date unspecified Effective:02-Dec-2020 Name Dates Details Immunization Registry [place] - Effective on 12/02/2020. Expiration date unspecified Effective:02-Dec-2020 Name Dates Details Immunization Registry [place] - Effective on 12/02/2020. Expiration date unspecified Effective:02-Dec-2020 Name Dates Details Immunization Registry [place] - Effective on 12/02/2020. Expiration date unspecified Effective:02-Dec-2020 Name Dates Details Immunization Registry [place] - Effective on 12/02/2020. Expiration date unspecified Effective:02-Dec-2020 Advance Directive Response Recorded Date/ Time Living Will No June 16 6:28am Power of Final Canoe Inspector No June 16, 2021 6:28am Advance Directive Response Recorded Date/ Time Living Will No June 16 7:28am Do you have a [facility] Power of Final Canoe Inspector? 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) September 18, 2024 7:45a m Reason for Visit Admit Date Encounter for routine gynecological exam ination September 18, 2024 7:45am Chief Complaint Admit Date SCREENING September 18, 2024 7:19a m 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) September 18, 2024 7:45a m SEE ORDER November 22, 2024 10:1 0am Chief Complaint Admit Date SEE ORDER November 22, 2024 10:1 0am NICOTINE DEPENDENCE January 29, 2025 7:17am Chief Complaint Admit Date SEE ORDER November 22, 2024 10:1 0am NICOTINE DEPENDENCE January 29, 2025 7:17am Irritable bowel syndrome February 06 7:27am Reason for Visit Admit Date IBS (irritable bowel syndrome) February 062024 7:27am Summary Purpose Additional Source Comments Goals (unrecognized section and content) Goals may be documented in a n alternate sectionGoals may be documented in an alternate sectionGoals may be documented in an alternate sectionGoals may be documented in an alternate sectionGoals may be documented in an alternate sectionGoals may be documented in an alternate sectionGoals may be documented in an alternate sectionGoals may be documented in an alternate sectionGoals may be documented in an alternate section Care Teams (unrecognized sec tion and content) Team Status: Active Member Role Status Dates Dr. Lisa Ziegler DO Family Provider Active Dr. Lisa Ziegler DO Primary Care Provider Active Team Status: Inactive Member Role Status Dates Dr. Lisa Ziegler DO Primary Care Provider, Referr ing Provider Active Dr. Katey Elizabeth MD Attending Provider Active Team Status: Inactive Member Role Status Dates Dr. Lisa Ziegler DO Primary Care Provider Active [place] TELESCOPE REPAIRER, TELESCOPE REPAIRER-C Attending Provider, Referring Provider Active Team Status: Inactive Member Role Status Dates Dr. Lisa Ziegler DO Primary Care Provider Active Dr. Edd Saxena MD Attending Provider Active Team Status: Inactive Member Role Status Dates Dr. Lisa Ziegler DO Primary Care Pr ovider, Attending Provider, Referring Provider Active Team Status: Active Member Role Status Dates Dr. Lisa Ziegler DO Primary Care Provider Active Team Status: Active Member Role Status Dates Dr. Lisa Ziegler DO Primary Care Provider Active Start: September 18, 2024 Dr. Katey Elizabeth MD Attending Provider Active Start: September 18, 2024 Dr. Katey Elizabeth MD Referring Provider Active Start: September 18, 2024 Team Status: Inactive Member Role Status Dates Dr. Lisa Ziegler DO Primary Care Provider Active Start: September 18, 2024 End: September 18, 2024 Dr. Lisa Ziegler DO Referring Provider Active Start: September 18, 2024 End: September 18, 2024 Dr. Katey Elizabeth MD Attending Provider Active Start: September 18, 2024 End: September 18, 2024 Team Status: Active Member Role/Relationship Status Dates Dr. Lisa Ziegler DO Primary Care Provider Active Team Status: Inactive Member Role/Relationship Status Dates Dr. Lisa Ziegler DO Primary Care Provider Active Start: September 18, 2024 End: September 18, 2024 Dr. Katey Elizabeth MD Attending Provider Active Start: September 18, 2024 End: September 18, 2024 Dr. Katey Elizabeth MD Referring Provider Active Start: September 18, 2024 End: September 18, 2024 Team Status: Inactive Member Role/Relationship Status Dates Dr. Lisa Ziegler DO Primary Care Provider Active Start: September 18, 2024 End: September 18, 2024 Dr. Lisa Ziegler DO Referring Provider Active Start: September 18, 2024 End: September 18, 2024 Dr. Katey Elizabeth MD Attending Provider Active Start: September 18, 2024 End: September 18, 2024 Team Status: Inactive Member Role/Relationship Status Dates Dr. Lisa Ziegler DO Primary Care Provider Active Start: November 22, 2024 End: November 22, 2024 Dr. Tk Simeon MD Attending Provider Active Start: November 22, 2024 End: November 22, 2024 Dr. Tk Simeon MD Referring Provider Active Start: November 22, 2024 End: November 22, 2024 Team Status: Active Member Role/Relationship Status Dates Dr. Lisa Ziegler DO Primary care physician Active Team Status: Inactive Member Role/Relationship Status Dates Dr. Lisa Ziegler DO Primary care physician Active Start: November 22, 2024 End: November 22, 2024 Dr. Tk Simeon MD Attending physician Active Start: November 22, 2024 End: November 22, 2024 Dr. Tk Simeon MD Referring Provider Active Start: November 22, 2024 End: November 22, 2024 Team Status: Inactive Member Role/Relationship Status Dates Dr. Lisa Ziegler DO Primary care physician Active Start: January 18, 2025 End: January 18, 2025 Dr. Lisa Ziegler DO Attending physician Active Start: January 18, 2025 End: January 18, 2025 Dr. Lisa Ming , DO Referring Provider Active Start: January 18, 2025 End: January 18, 2025 JHON ZAMBRANO Nurse Practitioner Active Start: pt2024 End: January 18, 2025 Team Status: Active Member Role/Relationship Status Dates Dr. Lisa Ziegler DO Primary care physician Active Start: January 29, 2025 Dr. Lisa Ziegler DO Attending physician Active Start: January 29, 2025 Dr. Lisa Ziegler DO Referring Provider Active Start: January 29, 2025 Team Status: Inactive Member Role/Relationship Status Dates Dr. Lisa Ziegler DO Primary care physician Active Start: February 06, 2025 End: February 06, 2025 Dr. Lisa Ziegler DO Referring Provider Active Start: February 06, 2025 End: February 06, 2025 Dr. Aly Gotti DO Attending physician Active Start: February 06, 2025 End: February 06, 2025 INFORMATION SOURCE (unrecogn ized section and content) DATE CREATED AUTHOR 09/12/2022 [facility] DATE CREATED AUTHOR AUTHOR'S ORGANIZ ATION 02/22/2025 [facility] FOR RECORDS PERTAINING TO PATIENTS WHO ARE OR HAVE BEEN ENROLLED IN A CHEMICAL DEPENDENCY/SUBSTANCEABUSE PROGRAM, SOME INFORMATION MAY BE OMITTED. This clinical summary was aggregated from multiple sources. Caution should be exercised in using it in the provision of clinical care. This summary normalizes information from multiple sources, and as a consequence, information in this document may materially change the coding, format and clinical context of patient data. In addition, data may be omitted in some cases. CLINICAL DECISIONS SHOULD BE BASED ON THE PRIMARY CLINICAL RECORDS. [employer] provides no warranty or guarantee of the accuracy or completeness of information in this document.
== END | disposition home or self-care (01) ==
LOC: CT 07:20
PROVIDERS: PCP Internal Medicine; Referring Provider Internal Medicine Gastroenterology; Visit Provider Internal Medicine Gastroenterology
DX: R10.9 Unspecified abdominal pain (principal); K58.9 Irritable bowel syndrome, unspecified
CPT/HCPCS: 74177; Q9967

== ENCOUNTER → 2025-03-09 | Outpatient (CLI) | payer BC, SELFPAY ==
--- NOTE | 2025-03-09 10:16 | NM_ITS ---
PROCEDURE: GASTRIC EMPTYING STUDY 03/09/2025 REASON FOR EXAM: ABDOMINAL PAIN COMPARISON: CT abdomen and pelvis of 02/23/2025 TECHNIQUE: Procedure Code: NMGES Modality: NM Procedure: GASTRIC EMPTYING STUDY The patient ingested a standard meal of a semi-solid meal of oatmeal. There was no vomiting postprandially. Anterior and posterior planar images of the upper abdomen were obtained for a total of 60 minutes. Regions of interest were drawn, and a geometric mean was used to calculate a [id number]. RADIOPHARMACEUTICAL: Oral administration of 1.2 mCi technetium 99 M sulfur colloid, within the oatmeal. FINDINGS: During the time of imaging, gastroesophageal reflux was not seen. Gastric emptying linear fit half time of 29.56 minutes. Gastric emptying at 17.5 minutes of 49%, at 29.5 minutes of 67%, at 47.5 minutes of 81%, and at 59.5 minutes of 83%. NM/Gastric Emptying Study IMPRESSION: Rapid semi solid phase gastric emptying though for semi-solid phase, this is pr obably of the upper range of normal. Reading Location: [place] [id number]
== END | disposition home or self-care (01) ==
LOC: NM 10:14
PROVIDERS: PCP Internal Medicine; Referring Provider Internal Medicine Gastroenterology; Visit Provider Internal Medicine Gastroenterology
DX: K58.9 Irritable bowel syndrome, unspecified (principal)
CPT/HCPCS: 78264; A9541

== ENCOUNTER → 2025-04-19 | Outpatient (CLI) | payer BC, SELFPAY ==
--- NOTE | 2025-04-19 07:18 | RAD_ITS ---
PROCEDURE: RIGHT KNEE 4 OR MORE VIEWS 04/19/2025 REASON FOR EXAM: B/L KNEE PAIN TECHNIQUE: Procedure Code: RADKN Modality: DX Procedure: KNEE 4 OR MORE VIEWS COMPARISON: None. FINDINGS: No acute fracture or dislocation. Alignment is anatomic. Well preserved joint spaces, although there is chondrocalcinosis in the medial and lateral joint spaces. No joint effusion or soft tissue swelling. RAD/Knee 4 or More Views IMPRESSION: No acute fracture or dislocation. Preserved joint spaces although there is medial and lateral chondrocalcinosis. Reading Location: [id number]
--- NOTE | 2025-04-19 07:18 | RAD_ITS ---
PROCEDURE: SHOULDER MIN 2 VIEWS 04/19/2025 REASON FOR EXAM: SHOULDER PAIN TECHNIQUE: Procedure Code: RADSH Modality: DX Procedure: SHOULDER MIN 2 VIEWS Laterality: Left COMPARISON: None. RAD/Shoulder min 2 Views IMPRESSION: At least mild left acromioclavicular joint degenerative changes are seen. The left glenohumeral joint is unremarkable in appearance. No fracture or dislocation is seen. Reading Location: [place] [id number]
--- OUTSIDE RECORDS SUMMARY | 2025-04-19 07:30 | XMS RPT_ITS | CCD ---
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 L800.1280, L3300.1200, L803.2200, L5500.0550, L501.6710, L3300.0960, L501.9520, L3300.1800, L504.2610, L503.6550, L101.9900, L3100.5440, L3100.3425, L3410.1000 #### [facility] [address] [place], [address] Perinuclear Ab. <1:20 Normal Neg:<1:[address] [facility] Comment on above: Result Comment: The presence of positive fluorescence exhibiting P-ANCA or C-ANCA patterns alone is not specific for the diagnosis of Bonita's Granulomatosis (WG) or microscopic polyangiitis. Decisions about treatment should not be based solely on ANCA IFA results. The International ANCA [employer] Consensus recommends follow up testing of positive sera with both MN- 3 and MPO-ANCA enzyme immunoassays. As many as 5% serum samples are positive only by EIA. Ref. AM J Clin Pathol 1999;111:507-513. Performed By: #### L 3410.2400, L500.4050, L100.0100, L800.1280, L3300.1200, L803.2200, L5500.0550, L501.6710, L3300.0960, L501.9520, L3300.1800, L504.2610, L503.6550, L101.9900, L3100.5440, L3100.3425, L3410.1000 #### [facility] [address] [place], [address] Anti-Parietal Cell AB, QNon 02-08-2025 ANTIPARIET CELL 1.4 Units Normal 0.0-20.[address] [facility] Comment on above: Result Comment: Nega tive 0.0 - 20.0 Equivocal 20.1 - 24.9 Positive >24.9 Parietal Cell Antibodies are found in 90% of patients with pernicious anemia and 30% of first degree relatives with pernicious anemia. Performed By: #### L 3410.2400, L500.4050, L100.0100, L800.1280, L3300.1200, L803.2200, L5500.0550, L501.6710, L3300.0960, L501.9520, L3300.1800, L504.2610, L503.6550, L101.9900, L3100.5440, L3100.3425, L3410.1000 #### [facility] [address] [place], [address] Anti-Smooth Muscle ABSon ANTISMOOTH MUSC 9 Units Normal 0-[address] [facility] Comment on above: Result Comment: Nega tive 0 - 19 Weak positive 20 - 30 Moderate to strong positive >30 Actin Antibodies are found in 52-85% of patients with autoimmune hepatitis or chronic active hepatitis and in 22% of patients with primary biliary cirrhosis. Performed at: - [facility] [id number] Life Scientist: Tk Winn PhD, Phone: [phone] Performed at: [facility] [id number] Life Scientist: Delon Jackson MD, Phone: [phone] Performed By: #### L 3410.2400, L500.4050, L100.0100, L800.1280, L3300.1200, L803.2200, L5500.0550, L501.6710, L3300.0960, L501.9520, L3300.1800, L504.2610, L503.6550, L101.9900, L3100.5440, L3100.3425, L3410.1000 #### [facility] [address] [place], [address] Celiac Disease Profileon ENDOMYSIAL IGA Negative Normal Negative [facility] Comment on above: Performed By: #### L 3410.2400, L500.4050, L100.0100, L800.1280, L3300.1200, L803.2200, L5500.0550, L501.6710, L3300.0960, L501.9520, L3300.1800, L504.2610, L503.6550, L101.9900, L3100.5440, L3100.3425, L3410.1000 #### [facility] [address] [place], [place], [id number] tTG IGA <2 Normal 0-[address] [facility] Comment on above: Result Comment: Nega tive [...] L504.2610, L503.6550, L101.9900, L3100.5440, L3100.3425, L3410.1000 #### [facility] [address] [facility] [place], [address] Gastrin, Serumon 02-08-2025 GASTRIN 21 pg/mL Normal 0-[address] [facility] Comment on above: Result Comment: [facility] Immulite 2000 Immunochemiluminometric assay (ICMA) Values obtained with different assay methods or kits cannot be used interchangeably. Results cannot be interpreted as absolute evidence of the presence or absence of malignant disease. Performed By: #### L 3410.2400, L500.4050, L100.0100, L800.1280, L3300.1200, L803.2200, L5500.0550, L501.6710, L3300.0960, L501.9520, L3300.1800, L504.2610, L503.6550, L101.9900, L3100.5440, L3100.3425, L3410.1000 #### [facility] [address] [place], [place], [phone] RON + Protein Elect, Serumon 02-08-2025 Albumin [Mass/Vol] 3.9 g/dL Normal 2.9-4.4 [facility] Comment on above: Order Comment: N Performed By: #### L 3410.2400, L500.4050, L100.0100, L800.1280, L3300.1200, L803.2200, L5500.0550, L501.6710, L3300.0960, L501.9520, L3300.1800, L504.2610, L503.6550, L101.9900, L3100.5440, L3100.3425, L3410.1000 #### [facility] [address] [place], [address] Albumin/Globulin [Mass ratio] 1.2 {ratio} Normal 0.7-1.[address] [facility] Comment on above: Order Comment: N Performed By: #### L 3410.2400, L500.4050, L100.0100, L800.1280, L3300.1200, L803.2200, L5500.0550, L501.6710, L3300.0960, L501.9520, L3300.1800, L504.2610, L503.6550, L101.9900, L3100.5440, L3100.3425, L3410.1000 #### [facility] [address] [place], [address] PSBYV-5-WAGK 0.3 g/dL Normal 0.0-0.[address] [facility] Comment on above: Order Comment: N Performed By: #### L 3410.2400, L500.4050, L100.0100, L800.1280, L3300.1200, L803.2200, L5500.0550, L501.6710, L3300.0960, L501.9520, L3300.1800, L504.2610, L503.6550, L101.9900, L3100.5440, L3100.3425, L3410.1000 #### [facility] [address] [facility] [place], [address] WDKSG-1-ZRVP 0.7 g/dL Normal 0.4-1.[address] [facility] Comment on above: Order Comment: N Performed By: #### L 3410.2400, L500.4050, L100.0100, L800.1280, L3300.1200, L803.2200, L5500.0550, L501.6710, L3300.0960, L501.9520, L3300.1800, L504.2610, L503.6550, L101.9900, L3100.5440, L3100.3425, L3410.1000 #### [facility] [address] [facility] [place], [address] BETA GLOBULIN 1.1 g/dL Normal 0.7-1.[address] [facility] Comment on above: Order Comment: N Performed By: #### L 3410.2400, L500.4050, L100.0100, L800.1280, L3300.1200, L803.2200, L5500.0550, L501.6710, L3300.0960, L501.9520, L3300.1800, L504.2610, L503.6550, L101.9900, L3100.5440, L3100.3425, L3410.1000 #### [facility] [address] [facility] [place], [address] GAMMA GLOBULIN 1.2 g/dL Normal 0.4-1.[address] [facility] Comment on above: Order Comment: N Performed By: #### L 3410.2400, L500.4050, L100.0100, L800.1280, L3300.1200, L803.2200, L5500.0550, L501.6710, L3300.0960, L501.9520, L3300.1800, L504.2610, L503.6550, L101.9900, L3100.5440, L3100.3425, L3410.1000 #### [facility] [address] [place], [address] Globulin (S) [Mass/Vol] 3.4 g/dL Normal 2.2-3.[address] [facility] Comment on above: Order Comment: N Performed By: #### L 3410.2400, L500.4050, L100.0100, L800.1280, L3300.1200, L803.2200, L5500.0550, L501.6710, L3300.0960, L501.9520, L3300.1800, L504.2610, L503.6550, L101.9900, L3100.5440, L3100.3425, L3410.1000 #### [facility] [address] [place], [place], [phone] (746) RON RESULT,S Comment Normal . [facility] Comment on above: Order Comment: N Result Comment: No m onoclonality detected. Performed By: #### L 3410.2400, L500.4050, L100.0100, L800.1280, L3300.1200, L803.2200, L5500.0550, L501.6710, L3300.0960, L501.9520, L3300.1800, L504.2610, L503.6550, L101.9900, L3100.5440, L3100.3425, L3410.1000 #### [facility] [address] [place], [place], [id number] IMMUNOGLOB A QN 212 mg/dL Normal 87-[address] [facility] Comment on above: Order Comment: N Performed By: #### L 3410.2400, L500.4050, L100.0100, L800.1280, L3300.1200, L803.2200, L5500.0550, L501.6710, L3300.0960, L501.9520, L3300.1800, L504.2610, L503.6550, L101.9900, L3100.5440, L3100.3425, L3410.1000 #### [facility] [address] [place], [address] IMMUNOGLOB G QN 1168 mg/dL Normal 586-[address] [facility] Comment on above: Order Comment: N Performed By: #### L 3410.2400, L500.4050, L100.0100, L800.1280, L3300.1200, L803.2200, L5500.0550, L501.6710, L3300.0960, L501.9520, L3300.1800, L504.2610, L503.6550, L101.9900, L3100.5440, L3100.3425, L3410.1000 #### [facility] [address] [facility] [place], [place], [phone] (363) IMMUNOGLOB M QN 103 mg/dL Normal 26-[address] [facility] Comment on above: Order Comment: N Performed By: #### L 3410.2400, L500.4050, L100.0100, L800.1280, L3300.1200, L803.2200, L5500.0550, L501.6710, L3300.0960, L501.9520, L3300.1800, L504.2610, L503.6550, L101.9900, L3100.5440, L3100.3425, L3410.1000 #### [facility] [address] [facility] [place], [place], [phone] ([address] M-Keagan Not Observed Normal Not Observed [facility] Comment on above: Order Comment: N Performed By: #### L 3410.2400, L500.4050, L100.0100, L800.1280, L3300.1200, L803.2200, L5500.0550, L501.6710, L3300.0960, L501.9520, L3300.1800, L504.2610, L503.6550, L101.9900, L3100.5440, L3100.3425, L3410.1000 #### [facility] [address] [place], [place], [id number] NOTE: Comment Normal . [facility] Comment on above: Order Comment: N Result Comment: Prot ein electrophoresis scan will follow via computer, mail, or java software delivery. Performed By: #### L 3410.2400, L500.4050, L100.0100, L800.1280, L3300.1200, L803.2200, L5500.0550, L501.6710, L3300.0960, L501.9520, L3300.1800, L504.2610, L503.6550, L101.9900, L3100.5440, L3100.3425, L3410.1000 #### [facility] [address] [place], [address] Protein [Mass/Vol] 7.3 g/dL Normal 6.0-8.5 [facility] Comment on above: Order Comment: N Performed By: #### L 3410.2400, L500.4050, L100.0100, L800.1280, L3300.1200, L803.2200, L5500.0550, L501.6710, L3300.0960, L501.9520, L3300.1800, L504.2610, L503.6550, L101.9900, L3100.5440, L3100.3425, L3410.1000 #### [facility] [address] [place], [address] Absolute lymphocyte countOrd ered By: Aly Gotti on 02-06-2025 Lymphocytes Auto (Unsp spec) [#/Vol] 3.03 10*3/uL 0.83-4.[address] [facility] Absolute neutrophil countOrd ered By: Aly Gotti on 02-06-2025 Neutrophils (Bld) [#/Vol] 9.4 10*3/uL High 2.0-7.[address] [facility] Albumin Elph [Mass/Vol]Order ed By: Aly Gotti on 02-06-2025 Albumin [Mass/Vol] 3.9 g/dL 2.9-4.4 [facility] Anion gap in Serum or Plasma Ordered By: Aly Gotti on 02-06-2025 Anion gap [Moles/Vol] 13 mmol/L 5-15 [facility] Automated lymphocyte count a s percentage of total leukocytesOrdered By: Alygrazyna Gotti on 02-06-2025 Lymphocytes/100 WBC Auto (Unsp spec) 22.7 % - [facility] BUN/creatinine ratioOrdered By: Alygood Gotti on 02-06-2025 Urea nitrogen/Creatinine [Mass ratio] 9.6 mg/mg Low 10- [facility] Basophil percentageOrdered B y: Aly Gotti on 02-06-2025 Basophils/100 WBC (Bld) 0.3 % 0-[address] [facility] Bilirubin, totalOrdered By: Aly Gotti on 02-06-2025 Bilirubin [Mass/Vol] 0.28 mg/dL 0.00-1.30 [facility] CBC W/Diff, Automatedon Absolute Lymph 3.03 X10 3/uL Normal 0.83-4.[address] [facility] Comment on above: Performed By: #### L 3410.2400, L500.4050, L100.0100, L800.1280, L3300.1200, L803.2200, L5500.0550, L501.6710, L3300.0960, L501.9520, L3300.1800, L504.2610, L503.6550, L101.9900, L3100.5440, L3100.3425, L3410.1000 #### [facility] [address] [place], [address] Absolute Neut 9.4 X10 3/uL High 2.0-7.[address] [facility] Comment on above: Performed By: #### L 3410.2400, L500.4050, L100.0100, L800.1280, L3300.1200, L803.2200, L5500.0550, L501.6710, L3300.0960, L501.9520, L3300.1800, L504.2610, L503.6550, L101.9900, L3100.5440, L3100.3425, L3410.1000 #### [facility] [address] [facility] [place], [address] Basophils/100 WBC (Bld) 0.3 % Normal 0-[address] [facility] Comment on above: Performed By: #### L 3410.2400, L500.4050, L100.0100, L800.1280, L3300.1200, L803.2200, L5500.0550, L501.6710, L3300.0960, L501.9520, L3300.1800, L504.2610, L503.6550, L101.9900, L3100.5440, L3100.3425, L3410.1000 #### [facility] [address] [facility] [place], [address] Eosinophils/100 WBC (Bld) 1.9 % Normal 0-[address] [facility] Comment on above: Performed By: #### L 3410.2400, L500.4050, L100.0100, L800.1280, L3300.1200, L803.2200, L5500.0550, L501.6710, L3300.0960, L501.9520, L3300.1800, L504.2610, L503.6550, L101.9900, L3100.5440, L3100.3425, L3410.1000 #### [facility] [address] [facility] [place], [address] Erythrocyte distribution width (RBC) [Ratio] 14.3 % Normal 11.6-14.[address] [facility] Comment on above: Performed By: #### L 3410.2400, L500.4050, L100.0100, L800.1280, L3300.1200, L803.2200, L5500.0550, L501.6710, L3300.0960, L501.9520, L3300.1800, L504.2610, L503.6550, L101.9900, L3100.5440, L3100.3425, L3410.1000 #### [facility] [address] [place], [address] Hematocrit (Bld) [Volume fraction] 44.1 % Normal 37-[address] [facility] Comment on above: Performed By: #### L 3410.2400, L500.4050, L100.0100, L800.1280, L3300.1200, L803.2200, L5500.0550, L501.6710, L3300.0960, L501.9520, L3300.1800, L504.2610, L503.6550, L101.9900, L3100.5440, L3100.3425, L3410.1000 #### [facility] [address] [facility] [place], [address] Hemoglobin (Bld) [Mass/Vol] 15.2 g/dL High 12.0-15.[address] [facility] Comment on above: Performed By: #### L 3410.2400, L500.4050, L100.0100, L800.1280, L3300.1200, L803.2200, L5500.0550, L501.6710, L3300.0960, L501.9520, L3300.1800, L504.2610, L503.6550, L101.9900, L3100.5440, L3100.3425, L3410.1000 #### [facility] [address] [facility] [place], [address] IG% 0.200 Normal 0.0-0.[address] [facility] Comment on above: Result Comment: IG% - Immature Granulocytes (promyelocytes, myelocytes and metamyelocytes) > 1% indicates that a LEFT SHIFT is Present. Performed By: #### L 3410.2400, L500.4050, L100.0100, L800.1280, L3300.1200, L803.2200, L5500.0550, L501.6710, L3300.0960, L501.9520, L3300.1800, L504.2610, L503.6550, L101.9900, L3100.5440, L3100.3425, L3410.1000 #### [facility] [address] [place], [address] Lymphocytes/100 WBC (Bld) 22.7 % Normal 19-[address] [facility] Comment on above: Performed By: #### L 3410.2400, L500.4050, L100.0100, L800.1280, L3300.1200, L803.2200, L5500.0550, L501.6710, L3300.0960, L501.9520, L3300.1800, L504.2610, L503.6550, L101.9900, L3100.5440, L3100.3425, L3410.1000 #### [facility] [address] [place], [address] MCH (RBC) [Entitic mass] 29.8 pg Normal 27.0-32.[address] [facility] Comment on above: Performed By: #### L 3410.2400, L500.4050, L100.0100, L800.1280, L3300.1200, L803.2200, L5500.0550, L501.6710, L3300.0960, L501.9520, L3300.1800, L504.2610, L503.6550, L101.9900, L3100.5440, L3100.3425, L3410.1000 #### [facility] [address] [place], [address] MCHC (RBC) [Mass/Vol] 34.5 g/dL Normal 32-36 [facility] Comment on above: Performed By: #### L 3410.2400, L500.4050, L100.0100, L800.1280, L3300.1200, L803.2200, L5500.0550, L501.6710, L3300.0960, L501.9520, L3300.1800, L504.2610, L503.6550, L101.9900, L3100.5440, L3100.3425, L3410.1000 #### [facility] [address] [place], [address] MCV (RBC) [Entitic vol] 86.5 fL Normal 81-[address] [facility] Comment on above: Performed By: #### L 3410.2400, L500.4050, L100.0100, L800.1280, L3300.1200, L803.2200, L5500.0550, L501.6710, L3300.0960, L501.9520, L3300.1800, L504.2610, L503.6550, L101.9900, L3100.5440, L3100.3425, L3410.1000 #### [facility] [address] [facility] [place], [address] Monocytes/100 WBC (Bld) 4.1 % Normal 0-10 [facility] Comment on above: Performed By: #### L 3410.2400, L500.4050, L100.0100, L800.1280, L3300.1200, L803.2200, L5500.0550, L501.6710, L3300.0960, L501.9520, L3300.1800, L504.2610, L503.6550, L101.9900, L3100.5440, L3100.3425, L3410.1000 #### [facility] [address] [place], [address] Neutrophils/100 WBC (Bld) 70.8 % High 47-[address] [facility] Comment on above: Performed By: #### L 3410.2400, L500.4050, L100.0100, L800.1280, L3300.1200, L803.2200, L5500.0550, L501.6710, L3300.0960, L501.9520, L3300.1800, L504.2610, L503.6550, L101.9900, L3100.5440, L3100.3425, L3410.1000 #### [facility] [address] [place], [address] (310) Nucleated RBC (Bld) [#/Vol] 0 10*3/uL Normal 0-[address] [facility] Comment on above: Performed By: #### L 3410.2400, L500.4050, L100.0100, L800.1280, L3300.1200, L803.2200, L5500.0550, L501.6710, L3300.0960, L501.9520, L3300.1800, L504.2610, L503.6550, L101.9900, L3100.5440, L3100.3425, L3410.1000 #### [facility] [address] [facility] [place], [address] (358) Platelet mean volume (Bld) [Entitic vol] 10.8 fL Normal 6.2-12.[address] [facility] Comment on above: Performed By: #### L 3410.2400, L500.4050, L100.0100, L800.1280, L3300.1200, L803.2200, L5500.0550, L501.6710, L3300.0960, L501.9520, L3300.1800, L504.2610, L503.6550, L101.9900, L3100.5440, L3100.3425, L3410.1000 #### [facility] [address] [place], [address] (074) Platelets (Bld) [#/Vol] 313 10*3/uL Normal 150-[address] [facility] Comment on above: Performed By: #### L 3410.2400, L500.4050, L100.0100, L800.1280, L3300.1200, L803.2200, L5500.0550, L501.6710, L3300.0960, L501.9520, L3300.1800, L504.2610, L503.6550, L101.9900, L3100.5440, L3100.3425, L3410.1000 #### [facility] [address] [place], [address] (702) RBC (Bld) [#/Vol] 5.10 10*6/uL Normal 4.2-5.4 [facility] Comment on above: Performed By: #### L 3410.2400, L500.4050, L100.0100, L800.1280, L3300.1200, L803.2200, L5500.0550, L501.6710, L3300.0960, L501.9520, L3300.1800, L504.2610, L503.6550, L101.9900, L3100.5440, L3100.3425, L3410.1000 #### [facility] [address] [place], [address] RDW SD 45.7 fl High 35.1-43.[address] [facility] Comment on above: Performed By: #### L 3410.2400, L500.4050, L100.0100, L800.1280, L3300.1200, L803.2200, L5500.0550, L501.6710, L3300.0960, L501.9520, L3300.1800, L504.2610, L503.6550, L101.9900, L3100.5440, L3100.3425, L3410.1000 #### [facility] [address] [place], [address] WBC (Bld) [#/Vol] 13.3 10*3/uL High 4.4-11.0 [facility] Comment on above: Performed By: #### L 3410.2400, L500.4050, L100.0100, L800.1280, L3300.1200, L803.2200, L5500.0550, L501.6710, L3300.0960, L501.9520, L3300.1800, L504.2610, L503.6550, L101.9900, L3100.5440, L3100.3425, L3410.1000 #### [facility] [address] [place], [address] CRPon 02-06-2025 C-REACTIVE PROT < 3.00 Normal 0.0-3.[address] [facility] Comment on above: Performed By: #### L 3410.2400, L500.4050, L100.0100, L800.1280, L3300.1200, L803.2200, L5500.0550, L501.6710, L3300.0960, L501.9520, L3300.1800, L504.2610, L503.6550, L101.9900, L3100.5440, L3100.3425, L3410.1000 #### [facility] [address] [place], [address] Carbon dioxide, total [Moles /volume] in Central venous bloodOrdered By: Aly Gotti on 02-06-2025 CO2 [Moles/Vol] 22.9 mmol/L 21.0-32.[address] [facility] Chloride assayOrdered By: Ra henrry Gotti on 02-06-2025 Chloride [Moles/Vol] 101 mmol/L 98-108 [facility] Comprehensive Metabolic Prof ilon 02-06-2025 Albumin [Mass/Vol] 4.8 g/dL Normal 3.5-5.0 [facility] Comment on above: Performed By: #### L 3410.2400, L500.4050, L100.0100, L800.1280, L3300.1200, L803.2200, L5500.0550, L501.6710, L3300.0960, L501.9520, L3300.1800, L504.2610, L503.6550, L101.9900, L3100.5440, L3100.3425, L3410.1000 #### [facility] [address] [place], [place], [phone] (298) Albumin/Globulin [Mass ratio] 1.6 {ratio} Normal 0.9-2.[address] [facility] Comment on above: Performed By: #### L 3410.2400, L500.4050, L100.0100, L800.1280, L3300.1200, L803.2200, L5500.0550, L501.6710, L3300.0960, L501.9520, L3300.1800, L504.2610, L503.6550, L101.9900, L3100.5440, L3100.3425, L3410.1000 #### [facility] [address] [place], [place], [phone] (816) ALK PHOS 51 U/L Normal 35-[address] [facility] Comment on above: Performed By: #### L 3410.2400, L500.4050, L100.0100, L800.1280, L3300.1200, L803.2200, L5500.0550, L501.6710, L3300.0960, L501.9520, L3300.1800, L504.2610, L503.6550, L101.9900, L3100.5440, L3100.3425, L3410.1000 #### [facility] [address] [place], [place], [id number] (981) ALT [Catalytic activity/Vol] 11 U/L Normal <=[address] [facility] Comment on above: Performed By: #### L 3410.2400, L500.4050, L100.0100, L800.1280, L3300.1200, L803.2200, L5500.0550, L501.6710, L3300.0960, L501.9520, L3300.1800, L504.2610, L503.6550, L101.9900, L3100.5440, L3100.3425, L3410.1000 #### [facility] [address] [place], [place], [id number] AST [Catalytic activity/Vol] 17 U/L Normal <=[address] [facility] Comment on above: Performed By: #### L 3410.2400, L500.4050, L100.0100, L800.1280, L3300.1200, L803.2200, L5500.0550, L501.6710, L3300.0960, L501.9520, L3300.1800, L504.2610, L503.6550, L101.9900, L3100.5440, L3100.3425, L3410.1000 #### [facility] [address] [place], [place], [id number] Bilirubin [Mass/Vol] 0.28 mg/dL Normal 0.00-1.30 [facility] Comment on above: Performed By: #### L 3410.2400, L500.4050, L100.0100, L800.1280, L3300.1200, L803.2200, L5500.0550, L501.6710, L3300.0960, L501.9520, L3300.1800, L504.2610, L503.6550, L101.9900, L3100.5440, L3100.3425, L3410.1000 #### [facility] [address] [place], [place], [id number] BUN/CRE 9.6 RATIO Low 10-[address] [facility] Comment on above: Performed By: #### L 3410.2400, L500.4050, L100.0100, L800.1280, L3300.1200, L803.2200, L5500.0550, L501.6710, L3300.0960, L501.9520, L3300.1800, L504.2610, L503.6550, L101.9900, L3100.5440, L3100.3425, L3410.1000 #### [facility] [address] [place], [address] Calcium [Mass/Vol] 9.3 mg/dL Normal 7.6-11.0 [facility] Comment on above: Performed By: #### L 3410.2400, L500.4050, L100.0100, L800.1280, L3300.1200, L803.2200, L5500.0550, L501.6710, L3300.0960, L501.9520, L3300.1800, L504.2610, L503.6550, L101.9900, L3100.5440, L3100.3425, L3410.1000 #### [facility] [address] [place], [address] Chloride [Moles/Vol] 101 mmol/L Normal 98-108 [facility] Comment on above: Performed By: #### L 3410.2400, L500.4050, L100.0100, L800.1280, L3300.1200, L803.2200, L5500.0550, L501.6710, L3300.0960, L501.9520, L3300.1800, L504.2610, L503.6550, L101.9900, L3100.5440, L3100.3425, L3410.1000 #### [facility] [address] [place], [address] CO2 [Moles/Vol] 22.9 mmol/L Normal 21.0-32.[address] [facility] Comment on above: Performed By: #### L 3410.2400, L500.4050, L100.0100, L800.1280, L3300.1200, L803.2200, L5500.0550, L501.6710, L3300.0960, L501.9520, L3300.1800, L504.2610, L503.6550, L101.9900, L3100.5440, L3100.3425, L3410.1000 #### [facility] [address] [place], [place], [id number] Creatinine [Mass/Vol] 0.79 mg/dL Normal 0.70-1.20 [facility] Comment on above: Performed By: #### L 3410.2400, L500.4050, L100.0100, L800.1280, L3300.1200, L803.2200, L5500.0550, L501.6710, L3300.0960, L501.9520, L3300.1800, L504.2610, L503.6550, L101.9900, L3100.5440, L3100.3425, L3410.1000 #### [facility] [address] [place], [place], [id number] GAP 13 Normal 5-[address] [facility] Comment on above: Performed By: #### L 3410.2400, L500.4050, L100.0100, L800.1280, L3300.1200, L803.2200, L5500.0550, L501.6710, L3300.0960, L501.9520, L3300.1800, L504.2610, L503.6550, L101.9900, L3100.5440, L3100.3425, L3410.1000 #### [facility] [address] [place], [place], [id number] GFR/1.73 sq M.predicted among non-blacks MDRD (S/P/Bld) [Vol rate/Area] 89 mL/min/{1.73_m2} Normal >[address] [facility] Comment on above: Result Comment: mL/m in/1.73m2 CKD-EPI Creatinine Equation (2020) Performed By: #### L 3410.2400, L500.4050, L100.0100, L800.1280, L3300.1200, L803.2200, L5500.0550, L501.6710, L3300.0960, L501.9520, L3300.1800, L504.2610, L503.6550, L101.9900, L3100.5440, L3100.3425, L3410.1000 #### [facility] [address] [place], [address] Globulin (S) [Mass/Vol] 3.1 g/dL Normal 2.2-4.2 [facility] Comment on above: Performed By: #### L 3410.2400, L500.4050, L100.0100, L800.1280, L3300.1200, L803.2200, L5500.0550, L501.6710, L3300.0960, L501.9520, L3300.1800, L504.2610, L503.6550, L101.9900, L3100.5440, L3100.3425, L3410.1000 #### [facility] [address] [place], [place], [id number] (288) Glucose [Mass/Vol] 101 mg/dL High 70-99 [facility] Comment on above: Performed By: #### L 3410.2400, L500.4050, L100.0100, L800.1280, L3300.1200, L803.2200, L5500.0550, L501.6710, L3300.0960, L501.9520, L3300.1800, L504.2610, L503.6550, L101.9900, L3100.5440, L3100.3425, L3410.1000 #### [facility] [address] [place], [address] Potassium [Moles/Vol] 3.8 mmol/L Normal 3.3-5.1 [facility] Comment on above: Performed By: #### L 3410.2400, L500.4050, L100.0100, L800.1280, L3300.1200, L803.2200, L5500.0550, L501.6710, L3300.0960, L501.9520, L3300.1800, L504.2610, L503.6550, L101.9900, L3100.5440, L3100.3425, L3410.1000 #### [facility] [address] [place], [address] Sodium [Moles/Vol] 137 mmol/L Normal 133-145 [facility] Comment on above: Performed By: #### L 3410.2400, L500.4050, L100.0100, L800.1280, L3300.1200, L803.2200, L5500.0550, L501.6710, L3300.0960, L501.9520, L3300.1800, L504.2610, L503.6550, L101.9900, L3100.5440, L3100.3425, L3410.1000 #### [facility] [address] [place], [address] T PROT 7.8 g/dL Normal 5.9-8.[address] [facility] Comment on above: Performed By: #### L 3410.2400, L500.4050, L100.0100, L800.1280, L3300.1200, L803.2200, L5500.0550, L501.6710, L3300.0960, L501.9520, L3300.1800, L504.2610, L503.6550, L101.9900, L3100.5440, L3100.3425, L3410.1000 #### [facility] [address] [facility] [place], [address] Urea nitrogen [Mass/Vol] 8 mg/dL Normal 4-[address] [facility] Comment on above: Performed By: #### L 3410.2400, L500.4050, L100.0100, L800.1280, L3300.1200, L803.2200, L5500.0550, L501.6710, L3300.0960, L501.9520, L3300.1800, L504.2610, L503.6550, L101.9900, L3100.5440, L3100.3425, L3410.1000 #### [facility] [address] [place], [address] Eosinophil percentageOrdered By: Aly Gotti on 02-06-2025 Eosinophils/100 WBC (Bld) 1.9 % 0-[address] [facility] Erythrocyte Sed Rateon 02-06 SED RATE 6 mm/hr Normal 0-[address] [facility] Comment on above: Performed By: #### L 3410.2400, L500.4050, L100.0100, L800.1280, L3300.1200, L803.2200, L5500.0550, L501.6710, L3300.0960, L501.9520, L3300.1800, L504.2610, L503.6550, L101.9900, L3100.5440, L3100.3425, L3410.1000 #### [facility] [address] [place], [address] Erythrocyte distribution wid th ratioOrdered By: Aly Gotti on 02-06-2025 Erythrocyte distribution width (RBC) [Ratio] 14.3 % 11.6-14.[address] [facility] Erythrocyte distribution wid th standard deviationOrdered By: Aly Gotti on 02-06-2025 Erythrocyte distribution width (RBC) [Ratio] 45.7 fl High 35.1-43.[address] [facility] Erythrocyte sedimentation ra teOrdered By: Aly Gotti on 02-06-2025 ESR (Bld) [Velocity] 6 mm/h 0-30 [facility] Ferritinon 02-06-2025 Ferritin [Mass/Vol] 103 ng/mL Normal 22-378 [facility] Comment on above: Performed By: #### L 3410.2400, L500.4050, L100.0100, L800.1280, L3300.1200, L803.2200, L5500.0550, L501.6710, L3300.0960, L501.9520, L3300.1800, L504.2610, L503.6550, L101.9900, L3100.5440, L3100.3425, L3410.1000 #### [facility] [address] [place], [address] Gastrin, serumOrdered By: Ra henrry Gotti on 02-06-2025 Gastrin [Mass/Vol] 21 pg/mL 0-115 [facility] Comment on above: Siemens Immulite 200 0 Immunochemiluminometric assay (ICMA)Values obtained with different assay methods or kits cannotbe used interchangeably. Results cannot be interpreted asabsolute evidence of the presence or absence of malignantdisease. Gastroenterology Visit Repor ton 02-06-[address] [facility]enter[facility] [address] [place] [address] OFFICE VISIT Date of Service: 02/06/25 MR#: [id number] Acct: [id number] Name: GALINA LATHAM Rep #: [id number] : 1970 Provider: Aly Gotti DO Age/Sex: 54/F [place] [facility] Status: Signed Intake Vital Signs 09/18/24 07:59 [...] support this brain-gut axis connection. * Secondary Diagnosis:???Constipati on confirmed by KUB. * Status of Probiotic:???Her subjective report of improvement with a probiotic is consistent with studies showing that probiotics can help regulate britney (more content not included)... Normal [facility] Glomerular filtration rate ( GFR) estimation/1.73 sq m using serum, plasma, or whole bOrdered By: Aly Gotti on 02-06-2025 GFR/1.73 sq M.predicted among non-blacks MDRD (S/P/Bld) [Vol rate/Area] 89 mL/min/{1.73_m2} >[address] [facility] Comment on above: mL/min/1.73m2 CKD-EP I Creatinine Equation (2020) Hematocrit Auto (Bld) [Volum e fraction]Ordered By: Aly Gotti on 02-06-2025 Hematocrit (Bld) [Volume fraction] 44.1 % 37-[address] [facility] Hemoglobin measurementOrdere d By: Aly Gotti on 02-06-2025 Hemoglobin (Bld) [Mass/Vol] 15.2 g/dL High 12.0-15.[address] [facility] Immature granulocytes/100 WB C Auto (Bld)Ordered By: Aly Gotti on 02-06-2025 Immature granulocytes/100 WBC (Bld) 0.200 % 0.0-0.[address] [facility] Comment on above: IG% - Immature Granu locytes (promyelocytes, myelocytes and metamyelocytes) > 1% indicates that a LEFT SHIFT is Present. Interpretation of serum or p lasma protein pattern by immunofixation (narrative resultOrdered By: Aly Gotti on 02-06-2025 Protein Fractions Immunofixation Evan [Interp] Not Observed g/dL Not Observed [facility] LDHon 02-06-2025 LDH 191 U/L Normal 84-[address] [facility] Comment on above: Order Comment: 1 Performed By: #### L 3410.2400, L500.4050, L100.0100, L800.1280, L3300.1200, L803.2200, L5500.0550, L501.6710, L3300.0960, L501.9520, L3300.1800, L504.2610, L503.6550, L101.9900, L3100.5440, L3100.3425, L3410.1000 #### [facility] [address] [place] [address]. [place], [place], [id number] Laboratory - Chemistry and C hemistry - challengeOrdered By: Aly Gotti on 02-06-2025 AST [Catalytic activity/Vol] 17 U/L <[address] [facility] Laboratory - Miscellaneous t estsOrdered By: Aly Gotti on 02-06-2025 Service comment (Unsp spec) [Interp] Comment . [facility] Comment on above: Levels of Specific I gE Class Description of Class ----- < 0.10 0 Negative 0.10 - 0.31 0/I Equivocal/Low 0.32 - 0.55 I Low 0.56 - 1.40 II Moderate 1.41 - 3.90 III High 3.91 - 19.00 IV Very High 19.01 - 100.00 V Very High >100.00 Very High Lactate dehydrogenase (LDH) measurementOrdered By: Aly Gotti on 02-06-2025 LDH [Catalytic activity/Vol] 191 U/L 84-[address] [facility] MCV (mean corpuscular volume ) determinationOrdered By: Aly Gotti on 02-06-2025 MCV (RBC) [Entitic vol] 86.5 fL 81-99 [facility] Mean corpuscular hemoglobin (MCH) determinationOrdered By: Aly Gotti on 02-06-2025 MCH (RBC) [Entitic mass] 29.8 pg 27.0-32.[address] [facility] Mean corpuscular hemoglobin concentration (MCHC) determinationOrdered By: Aly Gotti on 02-06-2025 MCHC (RBC) [Mass/Vol] 34.5 g/dL 32-36 [facility] Mean platelet volume determi nationOrdered By: Aly Gotti on 02-06-2025 Platelet mean volume (Bld) [Entitic vol] 10.8 fL 6.2-12.[address] [facility] Monocyte percentageOrdered B y: Aly Gotti on 02-06-2025 Monocytes/100 WBC (Bld) 4.1 % 0-[address] [facility] Neutrophil percentageOrdered By: Aly Gotti on 02-06-2025 Neutrophils/100 WBC (Bld) 70.8 % High 47-[address] [facility] No Panel InformationOrdered By: Aly Gotti on 02-06-2025 Addendum Document Comment . [facility] Comment on above: Protein electrophore sis scan will follow via computer,mail, or java software delivery. Nucleated red blood cell per centageOrdered By: Aly Gotti on 02-06-2025 Nucleated RBC/100 WBC (Bld) [Ratio] 0 % 0-[address] [facility] Platelet countOrdered By: Ra henrry Gotti on 02-06-2025 Platelets (Bld) [#/Vol] 313 10*3/uL 150-[address] [facility] Potassium measurement (mass/ volume)Ordered By: Aly Gotti on 02-06-2025 Potassium (Unsp spec) [Mass/Vol] 3.8 mmol/L 3.3-5.[address] [facility] RBC Auto (Bld) [#/Vol]Ordere d By: Aly Gotti on 02-06-2025 RBC (Bld) [#/Vol] 5.10 10*6/uL 4.2-5.4 [facility] Serum DNA double strand anti body assay (units/volume)Ordered By: Aly Gotti on 02-06-2025 DNA double strand Ab Qn (S) 1 [IU]/mL 0-[address] [facility] Comment on above: Negative <5 Equivoca l 5 - 9 Positive >9 Serum Scl-70 antibody assay (units/volume)Ordered By: Aly Gotti on 02-06-2025 SCL-70 extractable nuclear Ab Qn (S) <0.2 AI 0.0-0.[address] [facility] Comment on above: Previous reported re sult: TNP AIEdited by: SOFY on 02/10/25:1907 AMENDED REPORT 02/10/251907 ANTISCLER previously reported as: Test not performed Serum beef IgE antibody assa y (units/volume)Ordered By: Aly Gotti on 02-06-2025 Beef IgE Qn (S) <0.10 kU/L Class [address] [facility] Serum classic neutrophil cyt oplasmic antibody assay (units/volume)Ordered By: Aly Gotti on 02-06-2025 Neutrophil cytoplasmic Ab.classic Qn (S) <1:20 titer Neg:<1:[address] [facility] Serum codfish IgE antibody a ssay (units/volume)Ordered By: Aly Gotti on 02-06-2025 Codfish IgE Qn (S) <0.10 kU/L Class 0 [facility] Serum corn IgE antibody assa y (units/volume)Ordered By: Aly Gotti on 02-06-2025 [place] IgE Qn (S) <0.10 kU/L Class [address] [facility] Serum cow milk IgE antibody assay (units/volume)Ordered By: Aly Gotti on 02-06-2025 Cow milk IgE Qn (S) <0.10 kU/L Class 0 [facility] Serum creatinine measurement (mass/volume)Ordered By: Aly Gotti on 02-06-2025 Creatinine [Mass/Vol] 0.79 mg/dL 0.70-1.20 [facility] Serum globulin measurement ( mass/volume)Ordered By: Aly Gotti on 02-06-2025 Globulin (S) [Mass/Vol] 3.4 g/dL 2.2-3.[address] [facility] Serum glucose measurement (m ass/volume)Ordered By: Aly Gotti on 02-06-2025 Glucose [Mass/Vol] 101 mg/dL High 70-99 [facility] Serum mitochondria antibody detectionOrdered By: Aly Gotti on 02-06-2025 Mitochondria Ab Ql (S) <20.0 Units 0.0-20.0 [facility] Comment on above: Negative 0.0 - 20.0 Equivocal 20.1 - 24.9 Positive >24.9Mitochondrial (M2) Antibodies are found in 90-96% ofpatients with primary biliary cirrhosis. Serum or plasma C reactive p rotein measurement (mass/volume)Ordered By: Aly Gotti on 02-06-2025 CRP [Mass/Vol] mg/L 0.0-3.[address] [facility] Serum or plasma IgA measurem ent (mass/volume)Ordered By: Alygrazyna Gotti on 02-06-2025 IgA [Mass/Vol] 212 mg/dL 87-[address] [facility] Serum or plasma IgG measurem ent (mass/volume)Ordered By: Alygrazyna Gotti on 02-06-2025 IgG [Mass/Vol] 1168 mg/dL 586-[address] [facility] Serum or plasma actin IgG an tibody assay (units/volume)Ordered By: Aly Gotti on 02-06-2025 Actin IgG Qn 9 Units 0-[address] [facility] Comment on above: Negative 0 - 19 Weak positive 20 - 30 Moderate to strong positive >30 Actin Antibodies are found in 52-85% of patients with autoimmune hepatitis or chronic active hepatitis and in 22% of patients with primary biliary cirrhosis.Performed at: - [facility] [id number] [place], [place] [id number] Director: Tk Winn PhD, Phone: [phone] at: [facility] [address] [id number] Director: Delon Jackson MD, Phone: [phone] Serum or plasma alanine mendieta otransferase (ALT) measurementOrdered By: Aly Gotti on 02-06-2025 ALT [Catalytic activity/Vol] 11 U/L <[address] [facility] Serum or plasma albumin leonard urement (mass/volume)Ordered By: Aly Gotti on 02-06-2025 Albumin [Mass/Vol] 4.8 g/dL 3.5-5.0 [facility] Serum or plasma albumin/glob ulin mass ratioOrdered By: Aly Gotti on 02-06-2025 Albumin/Globulin [Mass ratio] 1.6 {ratio} 0.9-2.[address] [facility] Serum or plasma alkaline johann sphatase measurementOrdered By: Aly Gotti on 02-06-2025 ALP [Catalytic activity/Vol] 51 U/L 35-[address] [facility] Serum or plasma alpha 1 glob ulin measurement by electrophoresis (mass/volume)Ordered By: Aly Gotti on 02-06-2025 Alpha 1 globulin Elph [Mass/Vol] 0.3 g/dL 0.0-0.[address] [facility] Alpha 1 globulin Elph [Mass/Vol] 0.7 g/dL 0.4-1.[address] [facility] Serum or plasma beta globuli n measurement by electrophoresis (mass/volume)Ordered By: Aly Gotti on 02-06-2025 Beta globulin Elph [Mass/Vol] 1.1 g/dL 0.7-1.[address] [facility] Serum or plasma calcitriol m easurement (mass/volume)Ordered By: Aly Gotti on 02-06-2025 1,25-dihydroxyvitamin D3 [Mass/Vol] 60.3 pg/mL 24.8-81.[address] [facility] Serum or plasma calcium leonard urement (mass/volume)Ordered By: Aly Gotti on 02-06-2025 Calcium [Mass/Vol] 9.3 mg/dL 7.6-11.0 [facility] Serum or plasma ferritin donna surement (mass/volume)Ordered By: Aly Gotti on 02-06-2025 Ferritin [Mass/Vol] 103 ng/mL 22-378 [facility] Serum or plasma gamma globul in measurement by electrophoresis (mass/volume)Ordered By: Aly Gotti on 02-06-2025 Gamma globulin Elph [Mass/Vol] 1.2 g/dL 0.4-1.[address] [facility] Serum or plasma immunoelectr ophoresis interpretation (nominal result)Ordered By: Aly Gotti on 02-06-2025 Interpretation IEP [Interp] Comment . [facility] Comment on above: No monoclonality det ected. Serum or plasma protein leonard urement (mass/volume)Ordered By: Aly Gotti on 02-06-2025 Protein [Mass/Vol] 7.3 g/dL 6.0-8.5 [facility] Serum or plasma urea nitroge n measurement (mass/volume)Ordered By: Aly Gotti on 02-06-2025 Urea nitrogen [Mass/Vol] 8 mg/dL 4-[address] [facility] Serum parietal cell antibody assay (units/volume)Ordered By: Aly Gotti on 02-06-2025 Parietal cell Ab Qn (S) 1.4 Units 0.0-20.0 [facility] Comment on above: Negative 0.0 - 20.0 Equivocal 20.1 - 24.9 Positive >24.9Parietal Cell Antibodies are found in 90% of patientswith pernicious anemia and 30% of first degreerelatives with pernicious anemia. Serum peanut IgE antibody as say (units/volume)Ordered By: Aly Gotti on 02-06-2025 Peanut IgE Qn (S) <0.10 kU/L Class [address] [facility] Serum perinuclear neutrophil cytoplasmic antibody titer by immunofluorescenceOrdered By: Aly Gotti on 02-06-2025 Neutrophil cytoplasmic Ab.perinuclear IF (S) [Titer] <1:20 titer Neg:<1:[address] [facility] Comment on above: The presence of posi tive fluorescence exhibiting P-ANCA orC-ANCA patterns alone is not specific for the diagnosis ofWegener's Granulomatosis (WG) or microscopic polyangiitis.Decisions about treatment should not be based solely onANCA IFA results. The International ANCA Group Consensusrecommends follow up testing of positive sera with both MN-3 and MPO-ANCA enzyme immunoassays. As many as 5% serumsamples are positive only by EIA. Ref. AM J Clin Dgnhgo6616;111:507-513. Serum pork IgE antibody assa y (units/volume)Ordered By: Aly Gotti on 02-06-2025 Pork IgE Qn (S) <0.10 kU/L Class [address] [facility] Serum salmon IgE antibody as say (units/volume)Ordered By: Aly Gotti on 02-06-2025 [place] IgE Qn (S) <0.10 kU/L Class [address] [facility] Serum soybean IgE antibody a ssay (units/volume)Ordered By: Aly Gotti on 02-06-2025 Soybean IgE Qn (S) <0.10 kU/L Class 0 [facility] Serum tissue transglutaminas e (tTG) IgA antibody assay (units/volume)Ordered By: Aly Gotti on 02-06-2025 tTG IgA Qn (S) <2 U/mL 0-[address] [facility] Comment on above: Negative 0 - 3 Weak Positive 4 - 10 Positive >10 Tissue Transglutaminase (tTG) has been identified as the endomysial antigen. Studies have demonstr- ated that endomysial IgA antibodies have over 99% specificity for gluten sensitive enteropathy. Serum tuna IgE antibody assa y (units/volume)Ordered By: Aly Gotti on 02-06-2025 Tuna IgE Qn (S) <0.10 kU/L Class [address] [facility] Serum wheat IgE antibody ass ay (units/volume)Ordered By: Aly Gotti on 02-06-2025 Wheat IgE Qn (S) <0.10 kU/L Class [address] [facility] Serum whole egg IgE antibody assay (units/volume)Ordered By: Aly Gotti on 02-06-2025 Whole Egg IgE Qn (S) <0.10 kU/L Class 0 [facility] Comment on above: Performed at: - [id number] [place], [place] [id number] Director: Tk Winn PhD, Phone: [phone] at: [facility] [id number] Director: Delon Jackson MD, Phone: [phone] Sodium levelOrdered By: Cm geronimo Friend on 02-06-2025 Sodium [Moles/Vol] 137 mmol/L 133-145 [facility] TSH DL <= 0.005 mIU/L QnOrde red By: Aly Friend on 02-06-2025 TSH Qn 1.780 uIU/mL 0.300-4.[address] [facility] Thyroid Stim Hormone (TSH)on 02-06-2025 TSH 1.780 uIU/mL Normal 0.300-4.[address] [facility] Comment on above: Performed By: #### L 3410.2400, L500.4050, L100.0100, L800.1280, L3300.1200, L803.2200, L5500.0550, L501.6710, L3300.0960, L501.9520, L3300.1800, L504.2610, L503.6550, L101.9900, L3100.5440, L3100.3425, L3410.1000 #### [facility] [address] [place] [address]. [place], [address] Total proteinOrdered By: Michael reyes Friend on 02-06-2025 Protein [Mass/Vol] 7.8 g/dL 5.9-8.4 [facility] White blood cell (WBC) count Ordered By: Aly Gotti on 02-06-2025 WBC (Bld) [#/Vol] 13.3 10*3/uL High 4.4-11.0 [facility] Low Dose CT Lung Screeningon 01-29-[address] Lung Screening [facility] [address] [place] [address] Lung Screening MR#: [id number] Acct: [id number] Name: GALINA LATHAM Rep #: [id number] : 1970 F 54 From: Marcello Lockett MD PCP: Dr. Lisa Ziegler, Status: REG CLI Study: Low Dose CT Lung Screening Date of Exam: 01/29 Exam# [id number] Ordering Dr: Lisa Ziegler DO PROCEDURE: LOW [...] use of iterative reconstruction technique). REFERENCE LINK: [facility] RADIATION DOSE SUMMARY: CTDlvol: 4.02 mGy [...] chest CT in 12 months. Reading Location: [place] [address] CC: Dr. 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 Abdomen Single Viewon 2024 Abdomen Single View [facility] [address] [place] [address] Abdomen Single View MR#: [id number] Acct: [id number] Name: GALINA LATHAM Rep #: [id number] : 1970 F 54 From: Chance gutierrez MD PCP: Dr. Lisa Ziegler DO Status: REG CLI Study: Abdomen Single View Date of Exam: 01/18/25 Exam# [id number] Ordering Dr: Lisa Ziegler DO PROCEDURE: ABDOMEN SINGLE VIEW 01/18/2025 REASON FOR EXAM: ABDOMINAL PAIN TECHNIQUE: Procedure Code: RADABD Modality: DX Procedure: ABDOMEN SINGLE VIEW COMPARISON: None FINDINGS: The bowel gas pattern is nonobstructive but nonspecific. There is no dilated loop of bowel. Gtsv-zy-jqxenhzt amount of stool is present in the colon. Lung bases are clear. Osseous structures are normal. Surgical clips are present in the right upper quadrant. SI joints are symmetrical. Degenerative changes of both hips present. RAD/Abdomen Single View IMPRESSION: Lghenkxl-rp-qxfjs amount of stool in the colon. No bowel obstruction. Degenerative changes of both hips. Reading Location: [facility] CC: Dr. 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 Amphetamine detection with 1 000 ng/mL as cutoffon 01-18-2025 Amphetamines Screen method >1000 ng/mL Ql (U) Negative < 200 ng/mL [facility] No Panel Informationon 01-18 Urine Buprenorphine Qualitative Negative < 200 ng/mL [facility] Urine Oxycodone Screen Negative < 100 ng/mL [facility] Quantitative urine opiates m easurementon 01-18-2025 Opiates Ql (U) Negative < 300 ng/mL [facility] Screening urine fentanyl donna surementon 01-18-2025 fentaNYL Screen Ql (U) Negative <5 ng/mL [facility] Comment on above: CONFIRMATORY TESTING FOR ALL [...] (VISTA)on 01-18-2025 AMPHETAMINES Negative Normal <1000 ng/mL [facility] Comment on above: Order Comment: UNK Performed By: #### L 3410.2400, L500.4050, L100.0100, L800.1280, L3300.1200, L803.2200, L5500.0550, L501.6710, L3300.0960, L501.9520, L3300.1800, L504.2610, L503.6550, L101.9900, L3100.5440, L3100.3425, L3410.1000 #### [facility] [address] [place], [address] BARBITIURATES Negative Normal < 200 ng/mL [facility] Comment on above: Order Comment: UNK Performed By: #### L 3410.2400, L500.4050, L100.0100, L800.1280, L3300.1200, L803.2200, L5500.0550, L501.6710, L3300.0960, L501.9520, L3300.1800, L504.2610, L503.6550, L101.9900, L3100.5440, L3100.3425, L3410.1000 #### [facility] [address] [place], [address] BENZODIAZIPINE Positive Normal < 200 ng/mL [facility] Comment on above: Order Comment: UNK Result Comment: If c onfirmation testing is needed, a separate order will be required to send out testing to the reference laboratory. Performed By: #### L 3410.2400, L500.4050, L100.0100, L800.1280, L3300.1200, L803.2200, L5500.0550, L501.6710, L3300.0960, L501.9520, L3300.1800, L504.2610, L503.6550, L101.9900, L3100.5440, L3100.3425, L3410.1000 #### [facility] [address] [place], [place], [id number] BUP Ur Drug Scr Negative Normal < 200 ng/mL [facility] Comment on above: Order Comment: UNK Performed By: #### L 3410.2400, L500.4050, L100.0100, L800.1280, L3300.1200, L803.2200, L5500.0550, L501.6710, L3300.0960, L501.9520, L3300.1800, L504.2610, L503.6550, L101.9900, L3100.5440, L3100.3425, L3410.1000 #### [facility] [address] [place], [place], [id number] COCAINE Negative Normal < 300 ng/mL [facility] Comment on above: Order Comment: UNK Performed By: #### L 3410.2400, L500.4050, L100.0100, L800.1280, L3300.1200, L803.2200, L5500.0550, L501.6710, L3300.0960, L501.9520, L3300.1800, L504.2610, L503.6550, L101.9900, L3100.5440, L3100.3425, L3410.1000 #### [facility] [address] [place], [place], [id number] Fentanyl Negative Normal <5 ng/mL [facility] Comment on above: Order Comment: UNK Result [...] L504.2610, L503.6550, L101.9900, L3100.5440, L3100.3425, L3410.1000 #### [facility] [address] [place], [address] METHADONE Negative Normal < 300 ng/mL [facility] Comment on above: Order Comment: UNK Performed By: #### L 3410.2400, L500.4050, L100.0100, L800.1280, L3300.1200, L803.2200, L5500.0550, L501.6710, L3300.0960, L501.9520, L3300.1800, L504.2610, L503.6550, L101.9900, L3100.5440, L3100.3425, L3410.1000 #### [facility] [address] [place], [address] OPIATES Negative Normal < 300 ng/mL [facility] Comment on above: Order Comment: UNK Performed By: #### L 3410.2400, L500.4050, L100.0100, L800.1280, L3300.1200, L803.2200, L5500.0550, L501.6710, L3300.0960, L501.9520, L3300.1800, L504.2610, L503.6550, L101.9900, L3100.5440, L3100.3425, L3410.1000 #### [facility] [address] [place], [place], [id number] OXYCODONE Negative Normal < 100 ng/mL [facility] Comment on above: Order Comment: UNK Performed By: #### L 3410.2400, L500.4050, L100.0100, L800.1280, L3300.1200, L803.2200, L5500.0550, L501.6710, L3300.0960, L501.9520, L3300.1800, L504.2610, L503.6550, L101.9900, L3100.5440, L3100.3425, L3410.1000 #### [facility] [address] [place], [address] PCP Negative Normal < 25 ng/mL [facility] Comment on above: Order Comment: UNK Performed By: #### L 3410.2400, L500.4050, L100.0100, L800.1280, L3300.1200, L803.2200, L5500.0550, L501.6710, L3300.0960, L501.9520, L3300.1800, L504.2610, L503.6550, L101.9900, L3100.5440, L3100.3425, L3410.1000 #### [facility] [address] [place], [address] THC Positive Normal < 50 ng/mL [facility] Comment on above: Order Comment: UNK Result Comment: If c onfirmation testing is needed, a separate order will be required to send out testing to the reference laboratory. Performed By: #### L 3410.2400, L500.4050, L100.0100, L800.1280, L3300.1200, L803.2200, L5500.0550, L501.6710, L3300.0960, L501.9520, L3300.1800, L504.2610, L503.6550, L101.9900, L3100.5440, L3100.3425, L3410.1000 #### [facility] [address] [place], [address] Urine benzodiazepine levelon 01-18-2025 Benzodiazepines Ql (U) Positive < 200 ng/mL [facility] Comment on above: If confirmation test ing is needed, a separate order will be required to send out testing to the reference laboratory. Urine cocaine levelon 2024 Cocaine Ql (U) Negative < 300 ng/mL [facility] Urine scrag-1-kuoeyiqjbrsemi abinol (THC) measurementon 01-18-2025 Cannabinoids Screen Ql (U) Positive < 50 ng/mL [facility] Comment on above: If confirmation test ing is needed, a separate order will be required to send out testing to the reference laboratory. Urine phencyclidine (PCP) de tectionon 01-18-2025 Phencyclidine Ql (U) Negative < 25 ng/mL [facility] Celiac Disease Profileon ENDOMYSIAL IGA Negative Normal Negative [facility] Comment on above: Performed By: #### L 3410.2400, L500.4050, L100.0100, L800.1280, L3300.1200, L803.2200, L5500.0550, L501.6710, L3300.0960, L501.9520, L3300.1800, L504.2610, L503.6550, L101.9900, L3100.5440, L3100.3425, L3410.1000 #### [facility] [address] [place], [address] IMMUNOGLOB A QN 184 mg/dL Normal 87-[address] [facility] Comment on above: Result Comment: Perf ormed at: - [facility] [id number] Life Scientist: Tk Winn PhD, Phone: [phone] Performed By: #### L 3410.2400, L500.4050, L100.0100, L800.1280, L3300.1200, L803.2200, L5500.0550, L501.6710, L3300.0960, L501.9520, L3300.1800, L504.2610, L503.6550, L101.9900, L3100.5440, L3100.3425, L3410.1000 #### [facility] [address] [place], [address] tTG IGA <2 Normal 0-[address] [facility] Comment on above: Result Comment: Nega tive [...] L504.2610, L503.6550, L101.9900, L3100.5440, L3100.3425, L3410.1000 #### [facility] [address] [place], [address] CRPon 11-22-2024 C-REACTIVE PROT < 3.00 Normal 0.0-3.[address] [facility] Comment on above: Performed By: #### L 3410.2400, L500.4050, L100.0100, L800.1280, L3300.1200, L803.2200, L5500.0550, L501.6710, L3300.0960, L501.9520, L3300.1800, L504.2610, L503.6550, L101.9900, L3100.5440, L3100.3425, L3410.1000 #### [facility] [address] [place], [place], [id number] Serum or plasma C reactive p rotein measurement (mass/volume)Ordered By: Tk Simeon on 11-22-2024 CRP [Mass/Vol] mg/L 0.0-3.[address] [facility] Serum or plasma IgA measurem ent (mass/volume)Ordered By: Tk Simeon on 11-22-2024 IgA [Mass/Vol] 184 mg/dL 87-[address] [facility] Comment on above: Performed at: [place] [id number] Director: Tk Winn PhD, Phone: [phone] Serum tissue transglutaminas e (tTG) IgA antibody assay (units/volume)Ordered By: Tk Simeon on 11-22-2024 tTG IgA Qn (S) <2 U/mL 0-[address] [facility] Comment on above: Negative 0 - 3 Weak Positive 4 - 10 Positive >10 Tissue Transglutaminase (tTG) has been identified as the endomysial antigen. Studies have demonstr- ated that endomysial IgA antibodies have over 99% specificity for gluten sensitive enteropathy. TSH DL <= 0.005 mIU/L QnOrde red By: Tk Simeon on 11-22-2024 TSH Qn 2.360 uIU/mL 0.300-4.[address] [facility] Thyroid Stim Hormone (TSH)on 11-22-2024 TSH 2.360 uIU/mL Normal 0.300-4.[address] [facility] Comment on above: Performed By: #### L 3410.2400, L500.4050, L100.0100, L800.1280, L3300.1200, L803.2200, L5500.0550, L501.6710, L3300.0960, L501.9520, L3300.1800, L504.2610, L503.6550, L101.9900, L3100.5440, L3100.3425, L3410.1000 #### [facility] [address] [place], [address] [employer] Office Visit Reporton 09-18-2024 [employer] Office Visit Report [facility] [address], [address] [place] [address] OFFICE VISIT Date of Service: 09/18/24 MR#: [id number] Acct: [id number] Name: GALINA LATHAM Rep #: [id number] : 1970 Provider: Dr. Katey kingsley MD Age/Sex: 54/F Location: [facility] Status: Signed Intake Vital Signs 09/13/23 08:27 09/18/24 07:59 Height 5 ft 7 in 5 ft 7 in Weight: 203 lb 8 oz BMI 31.8 BP 126/81 H Intake Visit Reasons: Annual ([employer]CH[employer]) Labeling Specialist Required: No Is patient in pain?: No [...] acute distress, well developed and well groomed [facility] Head: normal to inspection and normocephalic Ears: [...] axillary lymphadenop (more content not included)... Normal [facility] SCRN MAMM (CAD)W/KAMERON BILATo n 09-18-2024 SCRN MAMM (CAD)W/KAMERON BILAT [facility] [address] [place] [address] SCRN MAMM (CAD)W/KAMERON BILAT MR#: [id number] Acct: [id number] Name: GALINA LATHAM Freda Rep #: [id number] : 1970 F 54 From: Debra Madison PCP: Dr. Lisa Ziegler, DO Status: [facility] CLI Study: SCRN MAMM (CAD)W/KAMERON BILAT Date of Exam: 08/31 01/25 Exam# [id number] Ordering Dr: Katey Elizabeth EXAM: SCRN MAMM [...] be mailed to the patient. Reading Location: [id number] CC: Dr. Lisa Ziegler DO; Dr. Katey Elizabeth MD Foundation Stage Teacher: Signed Normal [facility] Absolute lymphocyte countOrd ered By: Lisa Ziegler on 05-29-2023 Lymphocytes Auto (Unsp spec) [#/Vol] 3.24 10*3/uL 0.83-4.[address] [facility] Automated lymphocyte count a s percentage of total leukocytesOrdered By: Lisa Ziegler on 05-29-2023 Lymphocytes/100 WBC Auto (Unsp spec) 48.0 % 19-[address] [facility] Basophil percentageOrdered B y: Lisa Ziegler on 05-29-2023 Basophils/100 WBC (Bld) 0.3 % 0-[address] [facility] Bilirubin [Mass/Vol] 0.20 mg/dL 0.20-1.00 [facility] Comment on above: For patients on eltr ombopag therapy, use of Dimension [place] TBIL is not recommended. Chloride [Moles/Vol] 112 mmol/L 98-107 [facility] Cholesterol [Mass/Vol] 148 mg/dL <200 [facility] Comment on above: <200 mg/dL Desirable 200-240 mg/dL Borderline >240 mg/dL High Risk Eosinophils/100 WBC (Bld) 3.1 % 0-[address] [facility] Glucose [Mass/Vol] 99 mg/dL 74-106 [facility] Hemoglobin (Bld) [Mass/Vol] 14.9 g/dL 12.0-15.[address] [facility] Monocytes/100 WBC (Bld) 7.0 % 0-10 [facility] Neutrophils (Bld) [#/Vol] 2.8 10*3/uL 2.0-7.[address] [facility] Neutrophils/100 WBC (Bld) 41.5 % 47-[address] [facility] Potassium [Moles/Vol] 4.0 mmol/L 3.5-5.1 [facility] Protein [Mass/Vol] 7.5 g/dL 6.4-8.2 [facility] Sodium [Moles/Vol] 143 mmol/L 136-145 [facility] Triglyceride [Mass/Vol] 117 mg/dL <[address] [facility] Comment on above: The drugs N-Acetylcy steine and Metamizole may falsely depress this assay.Serum Triglycerides Reference Interval Normal <150 mg/dL Borderline high 150 - 199 mg/dL High 200 - 499 mg/dL Very High > or = 500 mg/dL WBC (Bld) [#/Vol] 6.8 10*3/uL 4.4-11.0 [facility] Determination of erythrocyte mean corpuscular volume (MCV)Ordered By: Lisa Ziegler on 05-29-2023 MCV (RBC) [Entitic vol] 90.6 fL 81-[address] [facility] Erythrocyte distribution wid th ratioOrdered By: Lisa Ziegler on 05-29-2023 Erythrocyte distribution width (RBC) [Ratio] 13.4 % 11.6-14.[address] [facility] Erythrocyte distribution wid th standard deviationOrdered By: Lisa Ziegler on 05-29-2023 Erythrocyte distribution width (RBC) [Entitic vol] 45.3 fL 35.1-43.[address] [facility] Hematocrit Auto (Bld) [Volum e fraction]Ordered By: Lisa Ziegler on 05-29-2023 Hematocrit (Bld) [Volume fraction] 46.0 % 37-[address] [facility] High density lipoprotein (HD L) measurementOrdered By: Lisa Ziegler on 05-29-2023 Cholesterol in HDL (Body fld) [Mass/Vol] 64 mg/dL >[address] [facility] Comment on above: The drugs N-Acetylcy steine and Metamizole may falsely depress this assay. Reference Range HDL <40 mg/dL Low HDL Cholesterol HDL >or= 60 mg/dL High HDL Cholesterol Immature granulocytes/100 WB C Auto (Bld)Ordered By: Lisa Ziegler on 05-29-2023 Immature granulocytes/100 WBC (Bld) 0.100 % 0.0-0.[address] [facility] Comment on above: IG% - Immature Granu locytes (promyelocytes, myelocytes and metamyelocytes) > 1% indicates that a LEFT SHIFT is Present. Laboratory - Chemistry and C hemistry - challengeOrdered By: Lisa Ziegler on 05-29-2023 Albumin/Globulin [Mass ratio] 1.0 {ratio} 0.9-2.[address] [facility] ALP [Catalytic activity/Vol] 41 U/L 45-[address] [facility] ALT [Catalytic activity/Vol] 21 U/L 13-[address] [facility] CO2 [Moles/Vol] 29.0 mmol/L 21.0-32.[address] [facility] Globulin (S) [Mass/Vol] 3.8 g/dL 2.2-4.[address] [facility] Urea nitrogen/Creatinine [Mass ratio] 11.6 mg/mg 10-[address] [facility] Laboratory - Hematology and Cell countsOrdered By: Lisa Ziegler on 05-29-2023 MCH (RBC) [Entitic mass] 29.3 pg 27.0-32.[address] [facility] MCHC (RBC) [Mass/Vol] 32.4 g/dL 32-36 [facility] Nucleated RBC/100 WBC (Bld) [Ratio] 0 % 0-[address] [facility] Platelets (Bld) [#/Vol] 313 10*3/uL 150-[address] [facility] Low density lipoprotein (LDL ) cholesterol measurementOrdered By: Lisa Ziegler on 05-29-2023 Cholesterol in LDL (Body fld) [Moles/Vol] 61 mg/dL 0-[address] [facility] No Panel InformationOrdered By: Lisa Ziegler on 05-29-2023 Estimated GFR (MDRD) Amer 80 mL/min >[address] [facility] Comment on above: GFR Calc Estimated GFR (MDRD) Non-Af Amer 66 mL/min >[address] [facility] Comment on above: Non- GFR Calc Platelet mean volume José Miguel-Ec ker (Bld) [Entitic vol]Ordered By: Lisa Ziegler on 05-29-2023 Platelet mean volume (Bld) [Entitic vol] 10.3 fL 6.2-12.[address] [facility] RBC Auto (Bld) [#/Vol]Ordere d By: Lisa Ziegler on 05-29-2023 RBC (Bld) [#/Vol] 5.08 10*6/uL 4.2-5.4 [facility] Serum or plasma calcium leonard urement (mass/volume)Ordered By: Lisa Ziegler on 05-29-2023 Calcium [Mass/Vol] 9.4 mg/dL 8.5-10.1 [facility] Serum or plasma creatinine m easurement (mass/volume)Ordered By: Lisa Ziegler on 05-29-2023 Creatinine [Mass/Vol] 0.95 mg/dL 0.55-1.02 [facility] Comment on above: The validity of the calculated GFR & GFRAA in patients over 70 years has not been determined. Clinical correlation is essential. Serum or plasma thyroid stim ulating hormone (TSH) measurement (units/volume)Ordered By: Lisa Ziegler on 05-29-2023 TSH Qn 1.84 uIU/mL 0.358-3.[address] [facility] Serum or plasma urea nitroge n measurement (mass/volume)Ordered By: Lisa Ziegler on 05-29-2023 Urea nitrogen [Mass/Vol] 11 mg/dL 7-[address] [facility] Thin prep Papanicolaou smear with manual screeningOrdered By: Lisa Ziegler on 05-29-2023 Thin prep Papanicolaou smear with manual screening 3.7 g/dL 3.2-5.[address] [facility] Thin prep Papanicolaou smear with manual screening 11 U/L 15-[address] [facility] Thin prep Papanicolaou smear with manual screening 2 5-[address] [facility] Very low density lipoprotein (VLDL) cholesterol measurementOrdered By: Lisa Ziegler on 05-29-2023 Cholesterol in VLDL Calc [Moles/Vol] 23 mg/dL 5-[address] [facility] Blood Glucose , Office [phone])Ordered By: CHRISTIANO Gonzalez on 01-14-2023 Glucose Glucometer (BldC) [Moles/Vol] 87 1 Normal [facility] Work Phone: HgA1C , Office ([phone])Ordere d By: CHRISTIANO Gonzalez on 01-14-2023 HbA1c (Bld) [Mass fraction] 5.6 % Normal 4.6 - 7.1 [facility]; [facility] Work Phone: Blood Glucose , Office [phone])Ordered By: Ruby Do on 09-11-2022 Glucose Glucometer (BldC) [Moles/Vol] 96 1 Normal [facility]; [facility] Work Phone: HgA1C , Office [phone])Ordere d By: Ruby Do on 09-11-2022 HbA1c (Bld) [Mass fraction] 5.5 % Normal 4.6 - 7.1 [facility]; [facility] Work Phone: CBC W/AUTO DIFF WBC ([phone])O rdered By: Pasteurizer on 08-07-2022 Basophils (Bld) [#/Vol] 0.0 10*3/uL Normal 0.0-0.2 [facility]; [facility] Work Phone: Basophils/100 WBC (Bld) 0 % Normal [facility]; [facility] [...] MCHC (RBC) [Mass/Vol] 34.2 g/dL Normal 31.5-35.7 [facility] prehens[facility]; [facility] Work Phone: MCV (RBC) [Entitic vol] 86 fL Normal 79-97 [facility]; [facility] Work Phone: Monocytes (Bld) [#/Vol] 0.6 10*3/uL Normal 0.1-0.9 [facility]; [facility] Work Phone: Monocytes/100 WBC (Bld) 6 % Normal [facility]; [facility] Work Phone: Neutrophils (Bld) [#/Vol] 4.6 10*3/uL Normal 1.4-7.0 [facility]; [facility] Work Phone: Neutrophils/100 WBC (Bld) 51 % Normal [facility]; [facility] Work Phone: Platelets (Bld) [#/Vol] 303 10*3/uL Normal 150-450 [facility]; [facility] Work Phone: RBC (Bld) [#/Vol] 5.28 10*6/uL Normal 3.77-5.28 [facility] ehensive [facility]; [facility] Work Phone: WBC (Bld) [#/Vol] 9.1 10*3/uL Normal 3.4-10.8 [facility]; [facility] Work Phone: LIPID PANEL ([phone])Ordered B y: Pasteurizer on 08-07-2022 Cholesterol [Mass/Vol] 147 mg/dL Normal 100-199 [facility] Work Phone: Cholesterol in HDL [Mass/Vol] 60 mg/dL Normal [facility]; [facility] Work Phone: Triglyceride [Mass/Vol] 106 mg/dL Normal 0-149 [facility]; [facility] Work Phone: LIPID PANEL ([phone]) 19 mg/dL Normal 5-40 [facility] Work Phone: LIPID PANEL ([phone]) 68 mg/dL Normal 0-99 [facility] Work Phone: LIPID PANEL ([phone]) 1.1 {ratio} Normal 0.0-3.2 [facility]; [facility] Work Phone: METABOLIC PANEL, COMPREHENSI VE ([phone])Ordered By: Pasteurizer on 08-07-2022 Albumin [Mass/Vol] 4.4 g/dL Normal 3.8-4.8 [facility]; [facility] Work Phone: Albumin/Globulin [Mass ratio] 2.0 {ratio} Normal 1.2-2.2 [facility]; [facility] Work Phone: ALP [Catalytic activity/Vol] 42 U/L Abnormal 44-121 [facility]; [facility] Work Phone: ALT [Catalytic activity/Vol] 12 U/L Normal 0-32 [facility]; [facility] Work Phone: AST [Catalytic activity/Vol] 15 U/L Normal 0-40 [facility]; [facility] Work Phone: Bilirubin [Mass/Vol] 0.2 mg/dL Normal 0.0-1.2 [facility]; [facility] Work Phone: Calcium [Mass/Vol] 9.6 mg/dL Normal 8.7-10.2 [facility]; [facility] Work Phone: Chloride [Moles/Vol] 105 mmol/L Normal 96-106 [facility] rehensive [facility] Medicine; [facility] Work Phone: CO2 [Moles/Vol] 24 mmol/L Normal 20-[address] [address]; [facility] Work Phone: Creatinine [Mass/Vol] 0.82 mg/dL Normal 0.57-1.00 [facility] prehens[facility]; [facility] Work Phone: Globulin (S) [Mass/Vol] 2.2 g/dL Normal 1.5-4.5 [facility]; [facility] Work Phone: Glucose [Mass/Vol] 92 mg/dL Normal 70-99 [facility] Work Phone: Potassium [Moles/Vol] 4.8 mmol/L Normal 3.5-5.2 [facility] prehensive [facility]; [facility] Work Phone: Protein [Mass/Vol] 6.6 g/dL Normal 6.0-8.5 [facility]; [facility] Work Phone: Sodium [Moles/Vol] 142 mmol/L Normal 134-144 [facility]; [facility] Work Phone: Urea nitrogen [Mass/Vol] 11 mg/dL Normal 6-24 [facility]; [facility] Work Phone: Urea nitrogen/Creatinine [Mass ratio] 13 mg/mg Normal 9-23 [facility]; [facility] Work Phone: METABOLIC PANEL, COMPREHENSIVE ([id number]) 87 mL/min/1.73 [facility]; [facility] Work Phone: MICROALBUMINOrdered By: Syst em Sales Representative [employer] on 08-07-2022 Albumin DL <= 20 mg/L (U) [Mass/Vol] mg/dL Normal [facility]; [facility] Work Phone: Albumin/Creatinine (U) [Mass ratio] <4 Normal 0-29 [facility]; [facility] Work Phone: Creatinine (U) [Mass/Vol] 67.0 mg/dL Normal [facility]; [facility] Work Phone: TSH ([id number])Ordered By: Yan m Sales Representative [employer] on 08-07-2022 TSH Qn 1.520 {uIU/mL} Normal 0.450-4.50 0 [facility]; [facility] Work Phone: URINALYSIS, W/ MICRO ([phone]) Ordered By: Pasteurizer on 08-07-2022 Appearance (U) Clear Normal Comprehens [...] Internal Medicine Work Phone: HgA1C , Office ([phone])on HbA1c (Bld) [Mass fraction] 5.6 % Normal 4.6 - 7.1 [facility]; [facility] Work Phone: Chlamydia trachomatis rRNA d etection by probe and target amplification methodon 08-12-2021 C. trachomatis rRNA MURALI+probe Ql (Unsp spec) Negative Negative [facility] Work Phone: Gram stain for investigation of transfusion reactionon 08-12-2021 Microscopic observation Gram stain Nom (Unsp spec) [facility] Work Phone: Laboratory - Microbiology an d Antimicrobial susceptibilityon 08-12-2021 N. gonorrhoeae DNA MURALI+probe Ql (Unsp spec) Negative Negative [facility] Work Phone: Comment on above: Performed at: =[address] [id number] Director: Viki Wheeler MD, Phone: [phone] No Panel Informationon 08-12 POC Bacterial Vaginitis (Rapid) Positive [facility] Work Phone: POC Trichomonas (Rapid) Negative [facility] Work Phone: Thin prep Papanicolaou smear with manual screeningon 08-12-2021 Genital Culture G. vaginalis (Presumptive) [facility] Work Phone: CBC W/AUTO DIFF WBC ([id number])O rdered By: Pasteurizer on 08-02-2020 Basophils (Bld) [#/Vol] 0.0 {x10E3/uL} Normal 0.0-0.2 [facility]; [facility] Work Phone: Comment on above: PATIENT WAS FASTINGP ERFORMED BY: [facility] Jcwlcw2970 [facility] [id number] Basophils (Bld) [#/Vol] 0.0 10*3/uL Normal 0.0-0.2 [facility]; [facility] Work Phone: Basophils/100 WBC (Bld) 0 % Normal C omprehensive [facility]; [facility] Work Phone: Comment on above: PATIENT WAS FASTINGP ERFORMED BY: TOBIN LabJudson Lgyqlm0297 [facility] [id number] Eosinophils (Bld) [#/Vol] 0.2 {x10E3/uL} Normal 0.0-0.4 [facility]; [facility] Work Phone: Comment on above: PATIENT WAS FASTINGP ERFORMED BY: TOBIN LabJudson FaganIqvqqp9075 [facility] [id number] Eosinophils (Bld) [#/Vol] 0.2 10*3/uL Normal 0.0-0.4 [facility]; [facility] Work Phone: Eosinophils/100 WBC (Bld) 2 % Normal [facility]; [facility] Work Phone: Comment on above: PATIENT WAS FASTINGP ERFORMED BY: TOBIN LabJudson FaganZjcxdh4775 [facility] [id number] Erythrocyte distribution width (RBC) [Ratio] 13.5 % Normal 11.7-15.4 [facility]; [facility] Work Phone: Comment on above: PATIENT WAS FASTINGP ERFORMED BY: TOBIN LabTucker Ytxkjt7719 [facility] [id number] Hematocrit (Bld) [Volume fraction] 46.1 % Normal 34.0-46.6 [facility]; [facility] Work Phone: Comment on above: PATIENT WAS FASTINGP ERFORMED BY: TOBIN LabCojoseph Tphdky6541 [facility] [id number] Hemoglobin (Bld) [Mass/Vol] 15.2 g/dL Normal 11.1-15.9 [facility]; [facility] Work Phone: Comment on above: PATIENT WAS FASTINGP ERFORMED BY: [facility]6370 [facility] [id number] Immature granulocytes (Bld) [#/Vol] 0.0 {x10E3/uL} Normal 0.0-0.1 [facility]; [facility] Work Phone: Comment on above: PATIENT WAS FASTINGP ERFORMED BY: [facility]6370 [facility] [id number] Immature granulocytes (Bld) [#/Vol] 0.0 10*3/uL Normal 0.0-0.1 [facility]; [facility] Work Phone: Immature granulocytes/100 WBC (Bld) 0 % Normal [facility]; [facility] Work Phone: Comment on above: PATIENT WAS FASTINGP ERFORMED BY: TOBIN [facility]6370 [facility] [id number] Lymphocytes (Bld) [#/Vol] 3.9 {x10E3/uL} Abnormal 0.7-3.1 [facility]; [facility] Work Phone: Comment on above: PATIENT WAS FASTINGP ERFORMED BY: [facility]6370 [facility] [id number] Lymphocytes (Bld) [#/Vol] 3.9 10*3/uL Abnormal 0.7-3.1 [facility]; [facility] Work Phone: Lymphocytes/100 WBC (Bld) 38 % Normal [facility]; [facility] Work Phone: Comment on above: PATIENT WAS FASTINGP ERFORMED BY: [facility]6370 [facility] [id number] MCH (RBC) [Entitic mass] 29.3 pg Normal 26.6-33.0 [facility]; [facility] Work Phone: Comment on above: PATIENT WAS FASTINGP ERFORMED BY: [facility]Henry [facility]6370 [facility] [id number] MCHC (RBC) [Mass/Vol] 33.0 g/dL Normal 31.5-35.7 [facility] prehensive Internal Medicine; [facility] Work Phone: Comment on above: PATIENT WAS FASTINGP ERFORMED BY: TOBIN Alvarez6370 [address] [facility] HospitalZacharyblin [place] [id number] MCV (RBC) [Entitic vol] 89 fL Normal 79-97 [facility]; [facility] Work Phone: Comment on above: PATIENT WAS FASTINGP ERFORMED BY: TOBIN Alvarez6370 [facility] [id number] Monocytes (Bld) [#/Vol] 0.6 {x10E3/uL} Normal 0.1-0.9 [facility]; [facility] Work Phone: Comment on above: PATIENT WAS FASTINGP ERFORMED BY: TOBIN Alvarez6370 [address] [facility] [place] [id number] Monocytes (Bld) [#/Vol] 0.6 10*3/uL Normal 0.1-0.9 [facility]; [facility] Work Phone: Monocytes/100 WBC (Bld) 6 % Normal [facility]; [facility] Work Phone: Comment on above: PATIENT WAS FASTINGP ERFORMED BY: TOBIN Alvarez6370 [facility] [id number] Neutrophils (Bld) [#/Vol] 5.5 {x10E3/uL} Normal 1.4-7.0 [facility]; [facility] Work Phone: Comment on above: PATIENT WAS FASTINGP ERFORMED BY: TOBIN LabJudson FaganUggbpx3468 [facility] [place] [id number] Neutrophils (Bld) [#/Vol] 5.5 10*3/uL Normal 1.4-7.0 [facility]; [facility] Work Phone: Neutrophils/100 WBC (Bld) 54 % Normal [facility]; [facility] Work Phone: Comment on above: PATIENT WAS FASTINGP ERFORMED BY: TOBIN LabJudson FaganErggpx1821 [facility] [id number] Platelets (Bld) [#/Vol] 307 {x10E3/uL} Normal 150-450 [facility]; [facility] Work Phone: Comment on above: PATIENT WAS FASTINGP ERFORMED BY: TOBIN [place] Fggstr0900 [facility] [id number] Platelets (Bld) [#/Vol] 307 10*3/uL Normal 150-450 [facility]; [facility] Work Phone: RBC (Bld) [#/Vol] 5.18 {x10E6/uL} Normal 3.77-5.28 [facility]ale[facility]; [facility] Work Phone: Comment on above: PATIENT WAS FASTINGP ERFORMED BY: TOBIN [place] Shywsr8555 [facility] [id number] RBC (Bld) [#/Vol] 5.18 10*6/uL Normal 3.77-5.28 Compr ensive Internal Medicine; [facility] Work Phone: WBC (Bld) [#/Vol] 10.2 {x10E3/uL} Normal 3.4-10.8 [facility]; [facility] Work Phone: Comment on above: PATIENT WAS FASTINGP ERFORMED BY: TOIBN [place] Dcjcmf4739 [facility] [id number] WBC (Bld) [#/Vol] 10.2 10*3/uL Normal 3.4-10.8 [facility]; [facility] Work Phone: LIPID PANEL ([id number])Ordered B y: Pasteurizer on 08-02-2020 Cholesterol [Mass/Vol] 158 mg/dL Normal 100-199 [facility]; [facility] Work Phone: Comment on above: PATIENT WAS FASTINGP ERFORMED BY: [place] Gbtpkk7459 [facility] [id number] Cholesterol in HDL [Mass/Vol] 58 mg/dL Normal [facility]; [facility] Work Phone: Comment on above: PATIENT WAS FASTINGP ERFORMED BY: TOBIN LabCo Ouncti8458 [facility]in [place] [id number] Cholesterol in LDL/Cholesterol in HDL [Mass ratio] 1.3 {ratio} Normal 0.0-3.2 [facility]; [facility] Work Phone: Comment on above: LDL/HDL Ratio Men Wo men 1/2 Avg.Risk 1.0 1.5 Avg.Risk 3.6 3.2 2X Avg.Risk 6.2 5.0 3X Avg.Risk 8.0 6.1 PATIENT WAS FASTINGP ERFORMED BY: TOBIN [facility] Sqrywh7022 Jenkins RoadDuin [place] [id number] Triglyceride [Mass/Vol] 138 mg/dL Normal 0-149 C omprehensive [facility]; [facility] Work Phone: Comment on above: PATIENT WAS FASTINGP ERFORMED BY: TOBIN LabCo Acutnj2474 [facility]in [place] [id number] LIPID PANEL (86088) 76 mg/dL Normal 0-99 Compr ensive [facility]; [facility] Work Phone: Comment on above: PATIENT WAS FASTINGP ERFORMED BY: TOBIN [facility] Ynpesn3380 [facility]bl[facility] [place] [id number] LIPID PANEL (98694) 24 mg/dL Normal 5-40 Compr ensive [facility]; [facility] Work Phone: Comment on above: PATIENT WAS FASTINGP ERFORMED BY: CB [facility] Bsirdo0658 Jenkins RoadWakemed North Hospitalin [place] [id number] LIPID PANEL (62727) 1.3 {ratio} Normal 0.0-3.2 Comp [facility] ohioensive [facility]; [facility] Work Phone: METABOLIC PANEL, COMPREHENSI VE (13362)Ordered By: Pasteurizer on 08-02-2020 Albumin [Mass/Vol] 4.5 g/dL Normal 3.8-4.8 Compre [facility] Internal Medicine; [facility] Work Phone: Comment on above: PATIENT WAS FASTINGP ERFORMED BY: TOBIN [facility] Gbgwxo4916 [facility] [id number] Albumin/Globulin [Mass ratio] 1.7 {ratio} Normal 1.2-2.2 [facility]; [facility] Work Phone: Comment on above: PATIENT WAS FASTINGP ERFORMED BY: TOBIN Huitron Pewgtk9908 [facility]bl[facility] [place] [id number] ALP [Catalytic activity/Vol] 44 [iU]/L Normal 39-117 [facility]; [facility] Work Phone: Comment on above: PATIENT WAS FASTINGP ERFORMED BY: [facility] Bylifs0415 [address] [facility] [place] [id number] ALP [Catalytic activity/Vol] 44 U/L Normal 39-117 [facility]; [facility] Work Phone: ALT [Catalytic activity/Vol] 12 [iU]/L Normal 0-32 [facility]; [facility] Work Phone: Comment on above: PATIENT WAS FASTINGP ERFORMED BY: [facility]iMer[facility] St[facility] Psgkvh6758 [facility] [id number] ALT [Catalytic activity/Vol] 12 U/L Normal 0-32 [facility]; [facility] Work Phone: AST [Catalytic activity/Vol] 16 [iU]/L Normal 0-40 [facility]; [facility] Work Phone: Comment on above: PATIENT WAS FASTINGP ERFORMED BY: NohemiHenry [facility] Hospital6370 [address] [facility] Centerin [place] [id number] AST [Catalytic activity/Vol] 16 U/L Normal 0-40 [facility]; [facility] Work Phone: Bilirubin [Mass/Vol] 0.3 mg/dL Normal 0.0-1.2 [facility]; [facility] Work Phone: Comment on above: PATIENT WAS FASTINGP ERFORMED BY: [facility]iMer[facility] St[facility] Ykylfl3416 [facility] Centerin [place] [id number] Calcium [Mass/Vol] 9.4 mg/dL Normal 8.7-10.2 [facility] hensive [facility]; [facility] Work Phone: Comment on above: PATIENT WAS FASTINGP ERFORMED BY: TOBIN [facility] Iwkrhu2556 Jenkins RoadDublin [place] [id number] Chloride [Moles/Vol] 106 mmol/L Normal 96-106 Comp rehensive Internal Medicine; [facility] Work Phone: Comment on above: PATIENT WAS FASTINGP ERFORMED BY: CB [facility] Uwamze9230 Jenkins RoadDublin [place] [id number] CO2 [Moles/Vol] 20 mmol/L Normal 20-29 Comprehen [facility] Internal Medicine; [facility] Work Phone: Comment on above: PATIENT WAS FASTINGP ERFORMED BY: CB [facility] Zwmcut9497 Jenkins RoadDublin [place] [id number] Creatinine [Mass/Vol] 0.82 mg/dL Normal 0.57-1.00 [facility] prehensive Internal Medicine; [facility] Work Phone: Comment on above: PATIENT WAS FASTINGP ERFORMED BY: CB [facility] Accerv7891 [address] RoadDublin [place] [id number] GFR/1.73 sq M predicted among blacks CKD-EPI (S/P/Bld) [Vol rate/Area] 98 mL/min/1.73 Normal [facility]; [facility] Work Phone: Comment on above: PATIENT WAS FASTINGP ERFORMED BY: CB [facility] Scejks9198 [address] RoadDublin [place] [id number] GFR/1.73 sq M predicted among non-blacks CKD-EPI (S/P/Bld) [Vol rate/Area] 85 mL/min/1.73 Normal [facility]; [facility] Work Phone: Comment on above: PATIENT WAS FASTINGP ERFORMED BY: CB [facility] Uhqyol1144 [address] RoadDublin [place] [id number] Globulin (S) [Mass/Vol] 2.6 g/dL Normal 1.5-4.5 C omprehensive Internal Medicine; [facility] Work Phone: Comment on above: PATIENT WAS FASTINGP ERFORMED BY: TOBIN [facility] Rplazw7184 Jenkins RoadDuin [place] [id number] Glucose [Mass/Vol] 101 mg/dL Abnormal 65-99 [facility] Internal [facility]; [facility] Work Phone: Comment on above: PATIENT WAS FASTINGP ERFORMED BY: [facility] Ulakqb1713 [facility] [id number] Potassium [Moles/Vol] 3.7 mmol/L Normal 3.5-5.2 [facility] Internal Medicine; [facility] Work Phone: Comment on above: PATIENT WAS FASTINGP ERFORMED BY: [facility] Cyvvif7632 [facility] [id number] Protein [Mass/Vol] 7.1 g/dL Normal 6.0-8.5 [facility]; [facility] Work Phone: Comment on above: PATIENT WAS FASTINGP ERFORMED BY: [facility] Tavqyi4152 [facility] [id number] Sodium [Moles/Vol] 141 mmol/L Normal 134-144 [facility]; [facility] Work Phone: Comment on above: PATIENT WAS FASTINGP ERFORMED BY: [facility] Xxzeho4679 [facility] [id number] Urea nitrogen [Mass/Vol] 8 mg/dL Normal 6-24 [facility] Internal Medicine; [facility] Work Phone: Comment on above: PATIENT WAS FASTINGP ERFORMED BY: [facility] Tlgmdi3444 [facility] [id number] Urea nitrogen/Creatinine [Mass ratio] 10 mg/mg Normal 9-23 [facility]; [facility] Work Phone: Comment on above: PATIENT WAS FASTINGP ERFORMED BY: [facility] Inacoi7377 [facility] [id number] TSH ([id number])Ordered By: Yan Cruz on 08-02-2020 TSH Qn 2.300 {uIU/mL} Normal 0.450-4.50 0 [facility]; [facility] Work Phone: Comment on above: PATIENT WAS FASTINGP ERFORMED BY: CB [facility] Dzjjfg0519 [address] RoadDublin [place] [id number] CBC & PLATELETS (AUTO) ([id number])Ordered By: Pasteurizer on 09-12-2019 Erythrocyte distribution width (RBC) [Ratio] 14.2 % Normal 11.7-15.4 [facility] Internal Medicine Work Phone: Comment on above: PATIENT NOT FASTINGP ERFORMED BY: CB [facility] Jcsdvp3081 [address] RoadDublin [place] [id number] Hematocrit (Bld) [Volume fraction] 42.8 % Normal 34.0-46.6 [facility] Internal Medicine Work Phone: Comment on above: PATIENT NOT FASTINGP ERFORMED BY: CB [facility] Hwyego9184 Jenkins RoadDublin [place] [id number] Hemoglobin (Bld) [Mass/Vol] 14.4 g/dL Normal 11.1-15.9 [facility] Internal Medicine Work Phone: Comment on above: PATIENT NOT FASTINGP ERFORMED BY: CB [facility] Mrurgt0381 [address] RoadDublin [place] [id number] MCH (RBC) [Entitic mass] 29.7 pg Normal 26.6-33.0 [facility] Internal Medicine Work Phone: Comment on above: PATIENT NOT FASTINGP ERFORMED BY: CB [facility] Ifwuql4669 [address] RoadDublin [place] [id number] MCHC (RBC) [Mass/Vol] 33.6 g/dL Normal 31.5-35.7 [facility] Internal Medicine Work Phone: Comment on above: PATIENT NOT FASTINGP ERFORMED BY: CB [facility] Aatyym6371 [address] RoadDublin [place] [id number] MCV (RBC) [Entitic vol] 88 fL Normal 79-97 [facility] Internal Medicine Work Phone: Comment on above: PATIENT NOT FASTINGP ERFORMED BY: CB [facility] Bdakmd6938 [address] RoadDublin [place] [id number] Platelets (Bld) [#/Vol] 354 {x10E3/uL} Normal 150-450 [facility] Work Phone: Comment on above: PATIENT NOT FASTINGP ERFORMED BY: TOBIN Alvarez6370 [facility] [id number] Platelets (Bld) [#/Vol] 354 10*3/uL Normal 150-450 [facility]; [facility] Work Phone: RBC (Bld) [#/Vol] 4.85 {x10E6/uL} Normal 3.77-5.28 [facility]ensive [facility] Work Phone: Comment on above: PATIENT NOT FASTINGP ERFORMED BY: TOBIN Perez70 [facility] [id number] RBC (Bld) [#/Vol] 4.85 10*6/uL Normal 3.77-5.28 [facility] Internal Medicine; [facility] Work Phone: WBC (Bld) [#/Vol] 10.9 {x10E3/uL} Abnormal 3.4-10.8 Co [facility] Internal Medicine Work Phone: Comment on above: PATIENT NOT FASTINGP ERFORMED BY: TOBIN Perez70 [facility] [id number] WBC (Bld) [#/Vol] 10.9 10*3/uL Abnormal 3.4-10.8 [facility] Internal Medicine; [facility] Work Phone: Metabolic Panel, Comprehensi ve ([id number])Ordered By: Pasteurizer on 09-12-2019 Albumin [Mass/Vol] 4.2 g/dL Normal 3.8-4.8 [facility] Internal Medicine Work Phone: Comment on above: PATIENT NOT FASTINGP ERFORMED BY: TOBIN Faganlin6370 [facility] [id number] Albumin/Globulin [Mass ratio] 1.8 {ratio} Normal 1.2-2.2 [facility] Work Phone: Comment on above: PATIENT NOT FASTINGP ERFORMED BY: TOBIN Faganlin6370 [address] [facility]in [place] [id number] ALP [Catalytic activity/Vol] 36 [iU]/L Abnormal 39-117 [facility] Work Phone: Comment on above: PATIENT NOT FASTINGP ERFORMED BY: Elana Lcskic1787 [address] Roadblin [place] [id number] ALP [Catalytic activity/Vol] 36 U/L Abnormal 39-117 [facility]; [facility] Work Phone: ALT [Catalytic activity/Vol] 11 [iU]/L Normal 0-32 [facility] Work Phone: Comment on above: PATIENT NOT FASTINGP ERFORMED BY: [facility]iMer[facility] St[facility] Eqbeha0032 [address] [facility] [place] [id number] ALT [Catalytic activity/Vol] 11 U/L Normal 0-32 [facility]; [facility] Work Phone: AST [Catalytic activity/Vol] 13 [iU]/L Normal 0-40 [facility] Work Phone: Comment on above: PATIENT NOT FASTINGP ERFORMED BY: [facility] Zjvjam1759 [address] [facility] [place] [id number] AST [Catalytic activity/Vol] 13 U/L Normal 0-40 [facility]; [facility] Work Phone: Bilirubin [Mass/Vol] 0.2 mg/dL Normal 0.0-1.2 Comp rehensive Internal Medicine Work Phone: Comment on above: PATIENT NOT FASTINGP ERFORMED BY: NohemiHenry [facility] Hospital6370 [facility] [id number] Calcium [Mass/Vol] 8.9 mg/dL Normal 8.7-10.2 [facility] Internal Medicine Work Phone: Comment on above: PATIENT NOT FASTINGP ERFORMED BY: Elana Kkfiee8486 [address] [facility]in [place] [id number] Chloride [Moles/Vol] 107 mmol/L Abnormal 96-106 Comp rehensive Internal Medicine Work Phone: Comment on above: PATIENT NOT FASTINGP ERFORMED BY: CB [facility] Fqewwo7466 [address] RoadDublin [place] [id number] CO2 [Moles/Vol] 22 mmol/L Normal 20-[address] [facility] Internal Medicine Work Phone: Comment on above: PATIENT NOT FASTINGP ERFORMED BY: CB [facility] Wputxs7695 [address] RoadDublin [place] [id number] Creatinine [Mass/Vol] 0.76 mg/dL Normal 0.57-1.00 [facility] Work Phone: Comment on above: PATIENT NOT FASTINGP ERFORMED BY: CB [facility] Qqwenv9717 [address] RoadDublin [place] [id number] GFR/1.73 sq M predicted among blacks CKD-EPI (S/P/Bld) [Vol rate/Area] 108 mL/min/1.73 Normal [facility] Work Phone: Comment on above: PATIENT NOT FASTINGP ERFORMED BY: CB [facility] Jkekni3090 [address] RoadDublin [place] [id number] GFR/1.73 sq M predicted among non-blacks CKD-EPI (S/P/Bld) [Vol rate/Area] 94 mL/min/1.73 Normal [facility] Work Phone: Comment on above: PATIENT NOT FASTINGP ERFORMED BY: CB [facility] Djpntn2009 [address] RoadD[address] [place] [id number] Globulin (S) [Mass/Vol] 2.4 g/dL Normal 1.5-4.5 [facility] Work Phone: Comment on above: PATIENT NOT FASTINGP ERFORMED BY: CB [facility] Zgcgcu0499 [address] RoadDublin [place] [id number] Glucose [Mass/Vol] 95 mg/dL Normal 65-99 [facility] Internal Medicine Work Phone: Comment on above: PATIENT NOT FASTINGP ERFORMED BY: CB [facility] Kawugg9278 [address] RoadDublin [place] [id number] Potassium [Moles/Vol] 4.5 mmol/L Normal 3.5-5.2 [facility] Work Phone: Comment on above: PATIENT NOT FASTINGP ERFORMED BY: CB [facility] Wtnxgr3073 [address] RoadDublin [place] [id number] Protein [Mass/Vol] 6.6 g/dL Normal 6.0-8.5 [facility] Internal Medicine Work Phone: Comment on above: PATIENT NOT FASTINGP ERFORMED BY: CB [facility] Dohghm6029 [address] [facility]in [place] [id number] Sodium [Moles/Vol] 142 mmol/L Normal 134-144 [facility] Internal Medicine Work Phone: Comment on above: PATIENT NOT FASTINGP ERFORMED BY: CB [facility] Xzcqzn6115 [address] RoadCooperstown [place] [id number] Urea nitrogen [Mass/Vol] 6 mg/dL Normal 6-24 [facility] Work Phone: Comment on above: PATIENT NOT FASTINGP ERFORMED BY: CB [facility] Ycjtxk7686 [facility] [id number] Urea nitrogen/Creatinine [Mass ratio] 8 mg/mg Abnormal 9-23 [facility] Work Phone: Comment on above: PATIENT NOT FASTINGP ERFORMED BY: CB [facility] Aaoogq8813 [address] [facility] [place] [id number] RANGEL CULTURE-STOOL ([id number])Ord ered By: Pasteurizer on 09-07-2019 Bacteria identified Cx Nom (Unsp spec) NCI Normal [facility] Work Phone: Comment on above: No Campylobacter spe cies isolated. PATIENT NOT FASTINGP ERFORMED BY: CB [facility] Ioajuu7087 [address] Roadblin [place] [id number] Bacteria identified Cx Nom (Unsp spec) NSS Normal [facility] Work Phone: Comment on above: No Salmonella or Mireya gella recovered. PATIENT NOT FASTINGP ERFORMED BY: CB [facility] Tzlqph3918 [address] Roadblin [place] [id number] Campylobacter sp identified Org specific cx Nom (Stl) Final report Normal [facility] Work Phone: Comment on above: PATIENT NOT FASTINGP ERFORMED BY: TOBIN [facility] Xrwkyo5208 [address] RoadDublin [place] [id number] E. coli shiga-like toxin IA Ql (Stl) Negative Normal [facility] Work Phone: Comment on above: PATIENT NOT FASTINGP ERFORMED BY: CB [facility] Bwqcev0936 [address] RoadDublin [place] [id number] E. coli shiga-like toxin IA Ql (Stl) Negative Normal [facility]; [facility] Work Phone: Salmonella and Shigella sp identified Org specific cx Nom (Stl) Final report Normal Comprehens mona [facility] Work Phone: Comment on above: PATIENT NOT FASTINGP ERFORMED BY: TOBIN [facility] Noctio1538 [address] RoadDublin [place] [id number] C-DIFFICILE, STOOL ([id number])Or dered By: Pasteurizer on 09-07-2019 C. difficile toxin A+B IA Ql (Stl) Negative Normal [facility] Work Phone: Comment on above: PATIENT NOT FASTINGP ERFORMED BY: [facility] Agojpy1752 [address] RoadDublin [place] [id number] C. difficile toxin A+B IA Ql (Stl) Negative Normal [facility]; [facility] Work Phone: LEUKOCYTE COUNT, FECAL ([phone])Ordered By: Pasteurizer on 09-07-2019 WBC LM Ql (Stl) Final report Abnormal Compreh ensive Internal Medicine Work Phone: Comment on above: PATIENT NOT FASTINGP ERFORMED BY: CB [facility] Yuyfot4993 [address] RoadDublin [place] [id number] WBC LM Ql (Stl) WCM Abnormal Comprehen sive Internal Medicine Work Phone: Comment on above: Moderate amount of w ashley blood cells. PATIENT NOT FASTINGP ERFORMED BY: CB [facility] Elxctn9795 [address] RoadDublin [place] [id number] OCCULT BLOOD FECES SCREEN ([phone])Ordered By: Pasteurizer on 09-07-2019 Lower GI hemoglobin IA Ql (Stl) Positive Abnormal [facility] Work Phone: Comment on above: PATIENT NOT FASTINGP ERFORMED BY: TOBIN [facility] Yfnsrq5174 [address] [facility] [id number] Lower GI hemoglobin IA Ql (Stl) Positive Abnormal [facility]; [facility] Work Phone: OVA & PARASITE DIR SMEAR ([phone])Ordered By: Pasteurizer on 09-07-2019 Ova and parasites identified Concentration Nom (Stl) NOCP1 Normal Comprehe nsive Internal Medicine Work Phone: Comment on above: No ova, cysts, or pa rasites seen. .One negative specimen does not rule out the possibility of aparasitic infection. PATIENT NOT FASTINGP ERFORMED BY: TOBIN [facility] Fanarm9325 [address] [facility] [id number] Ova and parasites identified LM Nom (Unsp spec) Final report Normal [facility] Work Phone: Comment on above: These results were o btained using wet preparation(s) and trichromestained smear. This test does not include testing for Cryptosporidiumparvum, Cyclospora, or Microsporidia. PATIENT NOT FASTINGP ERFORMED BY: TOBIN [facility] Hmqdnd9966 [facility] [id number] GLUCOSE ([id number])Ordered By: S ystem Sales Representative [employer] on 07-28-2019 Glucose [Mass/Vol] 86 mg/dL Normal 65-99 Compre [facility] Internal Medicine Work Phone: Comment on above: PATIENT WAS FASTINGP ERFORMED BY: TOBIN [facility] Zlxqxx7720 [facility] [id number] LIPID PANEL ([id number])Ordered B y: Pasteurizer on 07-28-2019 Cholesterol [Mass/Vol] 149 mg/dL Normal 100-199 [facility] Work Phone: Comment on above: PATIENT WAS FASTINGP ERFORMED BY: [facility] Ylsxog8239 [facility] [id number] Cholesterol in HDL [Mass/Vol] 55 mg/dL Normal [facility] Work Phone: Comment on above: PATIENT WAS FASTINGP ERFORMED BY: TOBIN [facility] Hwwpok8086 [address] [facility] [id number] Cholesterol in LDL [Mass/Vol] 69 mg/dL Normal 0-99 [facility] Work Phone: Comment on above: PATIENT WAS FASTINGP ERFORMED BY: TOBIN [facility] Hlassr8509 [facility] [id number] Cholesterol in LDL/Cholesterol in HDL [Mass ratio] 1.3 {ratio} Normal 0.0-3.2 [facility] Work Phone: Comment on above: LDL/HDL Ratio Men Wo men 1/2 Avg.Risk 1.0 1.5 Avg.Risk 3.6 3.2 2X Avg.Risk 6.2 5.0 3X Avg.Risk 8.0 6.1 PATIENT WAS FASTINGP ERFORMED BY: TOBIN [facility] Nwfprt3607 [facility] [id number] Cholesterol in VLDL [Mass/Vol] 25 mg/dL Normal 5-40 [facility] Work Phone: Comment on above: PATIENT WAS FASTINGP ERFORMED BY: [facility] Oxbznz2727 [address] [facility] [id number] Triglyceride [Mass/Vol] 123 mg/dL Normal 0-149 C omprehensive Internal Medicine Work Phone: Comment on above: PATIENT WAS FASTINGP ERFORMED BY: [facility] Pocfxv3390 [facility] [id number] Rapid Flu (06605 x 2)Ordered By: Samara Bruce on 06-10-2018 FLUAV Ag IA Ql (Throat) Negative Normal C omprehensive [facility] Work Phone: Comment on above: both A and B negativ e FLUAV Ag IA Ql (Throat) Negative Normal C omprehensive [facility]; [facility] Work Phone: RANGEL CULTURE-STOOL ([id number])Ord ered By: Pasteurizer on 01-27-2018 Bacteria identified Cx Nom (Unsp spec) NSS Normal [facility] Work Phone: Comment on above: No Salmonella or Mireya gella recovered. PERFORMED BY: t3n [employer] [employer] [place] [id number] Information: SRC:ST SRC:ST Bacteria identified Cx Nom (Unsp spec) NCI Normal [facility] Work Phone: Comment on above: No Campylobacter spe cies isolated. PERFORMED BY: [email or web address] [place] [id number] Information: SRC:ST SRC:ST Campylobacter sp identified Org specific cx Nom (Stl) Final report Normal [facility] Work Phone: Comment on above: PERFORMED BY: [email or web address] [place] [id number] Information: SRC:ST SRC:ST E. coli shiga-like toxin IA Ql (Stl) Negative Normal [facility] Work Phone: Comment on above: PERFORMED BY: StylendaUNC Health [id number] Information: SRC:ST SRC:ST E. coli shiga-like toxin IA Ql (Stl) Negative Normal [facility]; [facility] Work Phone: Salmonella and Shigella sp identified Org specific cx Nom (Stl) Final report Normal Comprehens mona Internal Medicine Work Phone: Comment on above: PERFORMED BY: StylendaGetSnippy [place] [id number] Information: SRC:ST SRC:ST C-DIFFICILE, STOOL ([id number])Or dered By: Pasteurizer on 01-27-2018 C. difficile toxin A+B IA Ql (Stl) Negative Normal [facility] Work Phone: Comment on above: PERFORMED BY: [email or web address] [place] [id number] C. difficile toxin A+B IA Ql (Stl) Negative Normal [facility]; [facility] Work Phone: LEUKOCYTE COUNT, FECAL ([phone])Ordered By: Pasteurizer on 01-27-2018 WBC LM Ql (Stl) NWBC Normal Comprehen sive Internal Medicine Work Phone: Comment on above: No white blood cells seen. PERFORMED BY: [employer] [id number] WBC LM Ql (Stl) Final report Normal Compreh ensive Internal Medicine Work Phone: Comment on above: PERFORMED BY: [email or web address] [place] [id number] OCCULT BLOOD FECES SCREEN (8 2270)Ordered By: Pasteurizer on 01-27-2018 Lower GI hemoglobin IA Ql (Stl) Negative Normal [facility] Work Phone: Comment on above: PERFORMED BY: [email or web address] [place] [id number] Lower GI hemoglobin IA Ql (Stl) Negative Normal [facility]; [facility] Work Phone: OVA & PARASITE DIR SMEAR ([phone])Ordered By: Pasteurizer on 01-27-2018 Ova and parasites identified Concentration Nom (Stl) NOCP Normal Comprehe nsive Internal Medicine Work Phone: Comment on above: No ova, cysts, or pa rasites seen. PERFORMED BY: [email or web address] [place] [id number] Ova and parasites identified LM Nom (Unsp spec) Final report Normal [facility] Work Phone: Comment on above: These results were o btained using wet preparation(s) and trichromestained smear. This test does not include testing for Cryptosporidiumparvum, Cyclospora, or Microsporidia. PERFORMED BY: t3n [employer] [employer] [place] [id number] CBC, Platelets & Auto Diff ( [id number])Ordered By: Pasteurizer on 01-26-2018 Basophils (Bld) [#/Vol] 0.0 {x10E3/uL} Normal 0.0-0.2 [facility] Work Phone: Comment on above: PATIENT NOT FASTINGP ERFORMED BY: [employer] Yeuuer0751 [employer] [place] [id number] Basophils (Bld) [#/Vol] 0.0 10*3/uL Normal 0.0-0.2 [facility]; [facility] Work Phone: Basophils/100 WBC (Bld) 0 % Normal C omprehensive [facility] Work Phone: Comment on above: PATIENT NOT FASTINGP ERFORMED BY: CB [facility] Bzxxhw3737 [address]Dublin [place] [id number] Eosinophils (Bld) [#/Vol] 0.1 {x10E3/uL} Normal 0.0-0.4 [facility] Work Phone: Comment on above: PATIENT NOT FASTINGP ERFORMED BY: CB [facility] Woapfr1993 [address] RoadD[address] [place] [id number] Eosinophils (Bld) [#/Vol] 0.1 10*3/uL Normal 0.0-0.4 [facility]; [facility] Work Phone: Eosinophils/100 WBC (Bld) 1 % Normal [facility] Work Phone: Comment on above: PATIENT NOT FASTINGP ERFORMED BY: CB [facility] Gkfnug9098 [address] RoadDublin [place] [id number] Erythrocyte distribution width (RBC) [Ratio] 14.2 % Normal 12.3-15.4 [facility] Work Phone: Comment on above: PATIENT NOT FASTINGP ERFORMED BY: CB [facility] Yfislg1220 [address] RoadDublin [place] [id number] Hematocrit (Bld) [Volume fraction] 42.7 % Normal 34.0-46.6 [facility] Work Phone: Comment on above: PATIENT NOT FASTINGP ERFORMED BY: CB [facility] Qsccch6266 [address] RoadDublin [place] [id number] Hemoglobin (Bld) [Mass/Vol] 14.1 g/dL Normal 11.1-15.9 [facility] Work Phone: Comment on above: PATIENT NOT FASTINGP ERFORMED BY: CB [facility] Nhyywv8132 [address] RoadDublin [place] [id number] Immature granulocytes (Bld) [#/Vol] 0.0 {x10E3/uL} Normal 0.0-0.1 [facility] Work Phone: Comment on above: PATIENT NOT FASTINGP ERFORMED BY: TOBIN Madhavi Alvarez6370 [facility] [id number] Immature granulocytes (Bld) [#/Vol] 0.0 10*3/uL Normal 0.0-0.1 [facility]; [facility] Work Phone: Immature granulocytes/100 WBC (Bld) 0 % Normal [facility] Work Phone: Comment on above: PATIENT NOT FASTINGP ERFORMED BY: TOBIN LabJudson FaganTpratf5363 [facility] [id number] Lymphocytes (Bld) [#/Vol] 2.7 {x10E3/uL} Normal 0.7-3.1 [facility] Work Phone: Comment on above: PATIENT NOT FASTINGP ERFORMED BY: TOBIN [facility] Vzefcr1126 [facility] [id number] Lymphocytes (Bld) [#/Vol] 2.7 10*3/uL Normal 0.7-3.1 [facility]; [facility] Work Phone: Lymphocytes/100 WBC (Bld) 26 % Normal [facility] Work Phone: Comment on above: PATIENT NOT FASTINGP ERFORMED BY: TOBIN [facility] Vqkrqn6665 [facility] [id number] MCH (RBC) [Entitic mass] 29.7 pg Normal 26.6-33.0 [facility] Internal Medicine Work Phone: Comment on above: PATIENT NOT FASTINGP ERFORMED BY: TOBIN [facility] Grjmen2034 [facility] [id number] MCHC (RBC) [Mass/Vol] 33.0 g/dL Normal 31.5-35.7 [facility] prehensive Internal Medicine Work Phone: Comment on above: PATIENT NOT FASTINGP ERFORMED BY: TOBIN LabCoGreystone Park Psychiatric HospitalZaxxzb5905 [facility] [id number] MCV (RBC) [Entitic vol] 90 fL Normal 79-97 C omprehensive [facility] Work Phone: Comment on above: PATIENT NOT FASTINGP ERFORMED BY: TOBIN Alvarez6370 [address] [place] [id number] Monocytes (Bld) [#/Vol] 0.5 {x10E3/uL} Normal 0.1-0.9 [facility] Work Phone: Comment on above: PATIENT NOT FASTINGP ERFORMED BY: TOBIN [facility] Dtbyvx0474 Jenkins RoadWakemed [facility] Hospitalin [place] [id number] Monocytes (Bld) [#/Vol] 0.5 10*3/uL Normal 0.1-0.9 [facility]; [facility] Work Phone: Monocytes/100 WBC (Bld) 5 % Normal C omprehensive [facility] Work Phone: Comment on above: PATIENT NOT FASTINGP ERFORMED BY: TOBIN Alvarez6370 [address] [facility] [id number] Neutrophils (Bld) [#/Vol] 7.1 {x10E3/uL} Abnormal 1.4-7.0 [facility] Work Phone: Comment on above: PATIENT NOT FASTINGP ERFORMED BY: TOBIN Faganlin6370 [address] [facility] [place] [id number] Neutrophils (Bld) [#/Vol] 7.1 10*3/uL Abnormal 1.4-7.0 [facility]; [facility] Work Phone: Neutrophils/100 WBC (Bld) 68 % Normal [facility] Work Phone: Comment on above: PATIENT NOT FASTINGP ERFORMED BY: TOBIN [facility] Ctybaw7623 [address] [facility]bl[facility] [place] [id number] Platelets (Bld) [#/Vol] 274 {x10E3/uL} Normal 150-379 [facility] Work Phone: Comment on above: PATIENT NOT FASTINGP ERFORMED BY: TOBIN [facility] Fdkmyj4507 [address] [facility] [place] [id number] Platelets (Bld) [#/Vol] 274 10*3/uL Normal 150-379 [facility]; [facility] Work Phone: RBC (Bld) [#/Vol] 4.74 {x10E6/uL} Normal 3.77-5.28 [facility] Work Phone: Comment on above: PATIENT NOT FASTINGP ERFORMED BY: TOBIN [facility] Nldbvn6046 [address] [facility]in [place] [id number] RBC (Bld) [#/Vol] 4.74 10*6/uL Normal 3.77-5.28 [facility]; [facility] Work Phone: WBC (Bld) [#/Vol] 10.5 {x10E3/uL} Normal 3.4-10.8 Co [facility] Internal Medicine Work Phone: Comment on above: PATIENT NOT FASTINGP ERFORMED BY: TOBIN [facility] Befavm7618 [address] [facility] [place] [id number] WBC (Bld) [#/Vol] 10.5 10*3/uL Normal 3.4-10.8 [facility]; [facility] Work Phone: Metabolic Panel, Comprehensi kodi ([phone])Ordered By: Pasteurizer on 01-26-2018 Albumin [Mass/Vol] 4.3 g/dL Normal 3.5-5.5 [facility] Internal Medicine Work Phone: Comment on above: PATIENT NOT FASTINGP ERFORMED BY: TOBIN [facility] Jbsxod1831 [facility]in [place] [id number] Albumin/Globulin [Mass ratio] 1.9 {ratio} Normal 1.2-2.2 [facility] Work Phone: Comment on above: PATIENT NOT FASTINGP ERFORMED BY: TOBIN [facility] Rlxmbc5552 [address] [facility]in [place] [id number] ALP [Catalytic activity/Vol] 51 [iU]/L Normal 39-117 [facility] Work Phone: Comment on above: PATIENT NOT FASTINGP ERFORMED BY: [facility] Ilaebi2002 [address]Dublin [place] [id number] ALP [Catalytic activity/Vol] 51 U/L Normal 39-117 [facility]; [facility] Work Phone: ALT [Catalytic activity/Vol] 35 [iU]/L Abnormal 0-32 [facility] Work Phone: Comment on above: PATIENT NOT FASTINGP ERFORMED BY: Lab[facility] Smzkfz8531 [address] RoadDublin [place] [id number] ALT [Catalytic activity/Vol] 35 U/L Abnormal 0-32 [facility]; [facility] Work Phone: AST [Catalytic activity/Vol] 23 [iU]/L Normal 0-40 [facility] Work Phone: Comment on above: PATIENT NOT FASTINGP ERFORMED BY: LabHenry [facility]6370 [address] RoadD[address] [place] [id number] AST [Catalytic activity/Vol] 23 U/L Normal 0-40 [facility]; [facility] Work Phone: Bilirubin [Mass/Vol] 0.2 mg/dL Normal 0.0-1.2 Comp rehensive Internal Medicine Work Phone: Comment on above: PATIENT NOT FASTINGP ERFORMED BY: LabMer[facility] Wqnqwx0123 [address] RoadDublin [place] [id number] Calcium [Mass/Vol] 9.0 mg/dL Normal 8.7-10.2 [facility] Internal Medicine Work Phone: Comment on above: PATIENT NOT FASTINGP ERFORMED BY: [facility] Trpefs2546 [address] RoadDublin [place] [id number] Chloride [Moles/Vol] 106 mmol/L Normal 96-106 Comp rehensive Internal Medicine Work Phone: Comment on above: PATIENT NOT FASTINGP ERFORMED BY: [facility] Csmxqr1634 [address] RoadDublin [place] [id number] CO2 [Moles/Vol] 20 mmol/L Normal 20-29 Comprehen [facility] Internal Medicine Work Phone: Comment on above: PATIENT NOT FASTINGP ERFORMED BY: CB [facility] Ztoqtk2159 [address] RoadDublin [place] [id number] Creatinine [Mass/Vol] 0.73 mg/dL Normal 0.57-1.00 [facility] Internal Medicine Work Phone: Comment on above: PATIENT NOT FASTINGP ERFORMED BY: CB [facility] Hbyhkx5242 [address] RoadD[address] [place] [id number] GFR/1.73 sq M predicted among blacks CKD-EPI (S/P/Bld) [Vol rate/Area] 115 mL/min/1.73 Normal [facility] Work Phone: Comment on above: PATIENT NOT FASTINGP ERFORMED BY: CB [facility] Tfuavs3327 [address] RoadD[address] [place] [id number] GFR/1.73 sq M predicted among non-blacks CKD-EPI (S/P/Bld) [Vol rate/Area] 100 mL/min/1.73 Normal [facility] Internal Medicine Work Phone: Comment on above: PATIENT NOT FASTINGP ERFORMED BY: CB [facility] Vuknom8635 [address] [place] [id number] Globulin (S) [Mass/Vol] 2.3 g/dL Normal 1.5-4.5 [facility] Internal Medicine Work Phone: Comment on above: PATIENT NOT FASTINGP ERFORMED BY: CB [facility] Pkepde1603 [address] RoadDublin [place] [id number] Glucose [Mass/Vol] 87 mg/dL Normal 65-99 [facility] Internal Medicine Work Phone: Comment on above: PATIENT NOT FASTINGP ERFORMED BY: CB [facility] Trzfwj8277 [address] RoadDublin [place] [id number] Potassium [Moles/Vol] 4.1 mmol/L Normal 3.5-5.2 [facility] Internal Medicine Work Phone: Comment on above: PATIENT NOT FASTINGP ERFORMED BY: CB [facility] Ockvqc6464 [address] RoadDublin [place] [id number] Protein [Mass/Vol] 6.6 g/dL Normal 6.0-8.5 [facility] Internal Medicine Work Phone: Comment on above: PATIENT NOT FASTINGP ERFORMED BY: CB [place] Parkrp Axyyba6778 HelpaUNC Health [id number] Sodium [Moles/Vol] 142 mmol/L Normal 134-144 [facility] Internal Medicine Work Phone: Comment on above: PATIENT NOT FASTINGP ERFORMED BY: CB [facility] Ujygxa0628 [address] Voices Heard MediaUNC Health [id number] Urea nitrogen [Mass/Vol] 8 mg/dL Normal 6-24 [facility] Work Phone: Comment on above: PATIENT NOT FASTINGP ERFORMED BY: CB [facility] Dgaeux1962 HelpaUNC Health [id number] Urea nitrogen/Creatinine [Mass ratio] 11 mg/mg Normal 9-23 [facility] Work Phone: Comment on above: PATIENT NOT FASTINGP ERFORMED BY: CB [facility] Dmgdzr7744 HelpaUNC Health [id number] Urinalysis, Office ([id number])Or dered By: Catherine Bruno on 01-21-2018 Bilirubin [...] Work Phone: CBC, PLATELETS & AUT DIFF ([phone])Ordered By: Pasteurizer on 03-11-2017 Basophils (Bld) [#/Vol] 0.0 {x10E3/uL} Normal 0.0-0.2 [facility] Work Phone: Comment on above: repeat in 2 weeks; P ATIENT NOT FASTINGPERFORMED BY: ExaleadUNC Health [id number] Basophils (Bld) [#/Vol] 0.0 10*3/uL Normal 0.0-0.2 [facility]; [facility] Work Phone: Basophils/100 WBC (Bld) 0 % Normal C omprehensive Internal Medicine Work Phone: Comment on above: repeat in 2 weeks; P ATIENT NOT FASTINGPERFORMED BY: [employer]70 HelpaUNC Health [id number] Eosinophils (Bld) [#/Vol] 0.3 {x10E3/uL} Normal 0.0-0.4 [facility] Work Phone: Comment on above: repeat in 2 weeks; P ATIENT NOT FASTINGPERFORMED BY: ExaleadUNC Health [id number] Eosinophils (Bld) [#/Vol] 0.3 10*3/uL Normal 0.0-0.4 [facility]; [facility] Work Phone: Eosinophils/100 WBC (Bld) 2 % Normal [facility] Work Phone: Comment on above: repeat in 2 weeks; P ATIENT NOT FASTINGPERFORMED BY: TOBIN LabCojoseph Zhgzkv0814 [address] [employer] MitusFormerly [facility] [id number] Erythrocyte distribution width (RBC) [Ratio] 14.5 % Normal 12.3-15.4 [facility] Work Phone: Comment on above: repeat in 2 weeks; P ATIENT NOT FASTINGPERFORMED BY: CB [facility] Ubeabu5838 [address] [facility] [id number] Hematocrit (Bld) [Volume fraction] 39.9 % Normal 34.0-46.6 [facility] Work Phone: Comment on above: repeat in 2 weeks; P ATIENT NOT FASTINGPERFORMED BY: TOBIN [facility] Weexjd2615 [address] [employer] [facility]Formerly [facility] [id number] Hemoglobin (Bld) [Mass/Vol] 12.4 g/dL Normal 11.1-15.9 [facility] Work Phone: Comment on above: repeat in 2 weeks; P ATIENT NOT FASTINGPERFORMED BY: TOBIN [facility] Iwisak2316 [facility] [id number] Immature granulocytes (Bld) [#/Vol] 0.0 {x10E3/uL} Normal 0.0-0.1 [facility] Work Phone: Comment on above: repeat in 2 weeks; P ATIENT NOT FASTINGPERFORMED BY: CB [facility] Wfsuno5139 [address] [facility] [id number] Immature granulocytes (Bld) [#/Vol] 0.0 10*3/uL Normal 0.0-0.1 [facility]; [facility] Work Phone: Immature granulocytes/100 WBC (Bld) 0 % Normal [facility] Work Phone: Comment on above: repeat in 2 weeks; P ATIENT NOT FASTINGPERFORMED BY: TOIBN [facility] Bkjgnf9013 [facility] [id number] Lymphocytes (Bld) [#/Vol] 4.3 {x10E3/uL} Abnormal 0.7-3.1 [facility] Work Phone: Comment on above: repeat in 2 weeks; P ATIENT NOT FASTINGPERFORMED BY: TOBIN [facility]6370 [facility] [id number] Lymphocytes (Bld) [#/Vol] 4.3 10*3/uL Abnormal 0.7-3.1 [facility]; [facility] Work Phone: Lymphocytes/100 WBC (Bld) 34 % Normal [facility] Work Phone: Comment on above: repeat in 2 weeks; P ATIENT NOT FASTINGPERFORMED BY: TOBIN [place] 7076470 [facility] [id number] MCH (RBC) [Entitic mass] 29.1 pg Normal 26.6-33.0 [facility] Work Phone: Comment on above: repeat in 2 weeks; P ATIENT NOT FASTINGPERFORMED BY: TOBIN [place] 7076470 [facility] [id number] MCHC (RBC) [Mass/Vol] 31.1 g/dL Abnormal 31.5-35.7 [facility] Internal Medicine Work Phone: Comment on above: repeat in 2 weeks; P ATIENT NOT FASTINGPERFORMED BY: TOBIN LabHenry [facility] Hospital6370 [facility] [id number] MCV (RBC) [Entitic vol] 94 fL Normal 79-97 [facility] Internal Medicine Work Phone: Comment on above: repeat in 2 weeks; P ATIENT NOT FASTINGPERFORMED BY: TOBIN [place] 7076470 [facility] [id number] Monocytes (Bld) [#/Vol] 0.8 {x10E3/uL} Normal 0.1-0.9 [facility] Work Phone: Comment on above: repeat in 2 weeks; P ATIENT NOT FASTINGPERFORMED BY: TOBIN [facility]6370 [facility] [id number] Monocytes (Bld) [#/Vol] 0.8 10*3/uL Normal 0.1-0.9 [facility]; [facility] Work Phone: Monocytes/100 WBC (Bld) 6 % Normal C [facility]king[facility] ohioensive Internal Medicine Work Phone: Comment on above: repeat in 2 weeks; P ATIENT NOT FASTINGPERFORMED BY: TOBIN LabCo Hgxvhg3081 [facility] [id number] Neutrophils (Bld) [#/Vol] 7.1 {x10E3/uL} Abnormal 1.4-7.0 [facility] Work Phone: Comment on above: repeat in 2 weeks; P ATIENT NOT FASTINGPERFORMED BY: TOBIN LabCo Kfzwbt6488 [facility] [id number] Neutrophils (Bld) [#/Vol] 7.1 10*3/uL Abnormal 1.4-7.0 [facility]; [facility] Work Phone: Neutrophils/100 WBC (Bld) 58 % Normal [facility] Work Phone: Comment on above: repeat in 2 weeks; P ATIENT NOT FASTINGPERFORMED BY: TOBIN LabCo Hbfjei6538 [facility] [id number] Platelets (Bld) [#/Vol] 308 {x10E3/uL} Normal 150-379 [facility] Work Phone: Comment on above: repeat in 2 weeks; P ATIENT NOT FASTINGPERFORMED BY: TOBIN LabCo Sqctbh1330 [facility] [id number] Platelets (Bld) [#/Vol] 308 10*3/uL Normal 150-379 [facility]; [facility] Work Phone: RBC (Bld) [#/Vol] 4.26 {x10E6/uL} Normal 3.77-5.28 [facility] Work Phone: Comment on above: repeat in 2 weeks; P ATIENT NOT FASTINGPERFORMED BY: [place] Vftfvc3308 [facility] [id number] RBC (Bld) [#/Vol] 4.26 10*6/uL Normal 3.77-5.28 [facility] Internal Medicine; [facility] Internal Medicine Work Phone: WBC (Bld) [#/Vol] 12.6 {x10E3/uL} Abnormal 3.4-10.8 Co [facility] Internal [facility] Work Phone: Comment on above: repeat in 2 weeks; P ATIENT NOT FASTINGPERFORMED BY: [place] ParkGreystone Park Psychiatric HospitalBvdynv4222 [facility] [id number] WBC (Bld) [#/Vol] 12.6 10*3/uL Abnormal 3.4-10.8 [facility] Internal Medicine; [facility] Internal Medicine Work Phone: CALCIFEDIOL ([id number])Ordered B y: Pasteurizer on 03-04-2017 25-Hydroxyvitamin D2+25-Hydroxyvitamin D3 [Mass/Vol] 41.5 ng/mL Normal 30.0-100.0 [facility] Internal Medicine Work Phone: Comment on above: Vitamin D deficiency has been defined by the [place] ofMedicine and an Endocrine Society practice guideline as alevel of serum 25-OH vitamin D less than 20 ng/mL (1,2).The Endocrine Society went on to further define vitamin Dinsufficiency as a level between 21 and 29 ng/mL (2).1. IOM ([place] of Medicine). 2010. Dietary reference intakes for calcium and D. [place]: The National Academies Press.2. Danita MF, Bev NC, Merry NEW, et al. Evaluation, treatment, and prevention of vitamin D deficiency: an Endocrine Society clinical practice guideline. JCEM. 2010; 96(7):1911-30. PATIENT WAS FASTINGP ERFORMED BY: [place] Kxvvli2139 [facility] [id number] CBC, PLATELETS & MANUAL DIFF ([id number])Ordered By: Pasteurizer on 03-04-2017 Basophils (Bld) [#/Vol] 0.0 {x10E3/uL} Normal 0.0-0.2 [facility] Work Phone: Comment on above: PATIENT WAS FASTINGP ERFORMED BY: TOBIN LabHenry [facility]6[address] [facility] [place] [id number] Basophils (Bld) [#/Vol] 0.0 10*3/uL Normal 0.0-0.2 [facility]; [facility] Work Phone: Basophils/100 WBC (Bld) 0 % Normal C omprehensive Internal Medicine Work Phone: Comment on above: PATIENT WAS FASTINGP ERFORMED BY: TOBIN LabHenry [facility] Hospital6370 [facility] [id number] Eosinophils (Bld) [#/Vol] 0.2 {x10E3/uL} Normal 0.0-0.4 [facility] Work Phone: Comment on above: PATIENT WAS FASTINGP ERFORMED BY: [place] [id number] [facility] [id number] Eosinophils (Bld) [#/Vol] 0.2 10*3/uL Normal 0.0-0.4 [facility]; [facility] Work Phone: Eosinophils/100 WBC (Bld) 1 % Normal [facility] Work Phone: Comment on above: PATIENT WAS FASTINGP ERFORMED BY: [facility]6370 [facility] [id number] Erythrocyte distribution width (RBC) [Ratio] 14.9 % Normal 12.3-15.4 [facility] Work Phone: Comment on above: PATIENT WAS FASTINGP ERFORMED BY: LabHenry [facility] Hospital6370 [facility] [id number] Hematocrit (Bld) [Volume fraction] 37.9 % Normal 34.0-46.6 [facility] Work Phone: Comment on above: PATIENT WAS FASTINGP ERFORMED BY: LabHenry [facility] Hospital6370 [facility] [id number] Hemoglobin (Bld) [Mass/Vol] 12.3 g/dL Normal 11.1-15.9 [facility] Work Phone: Comment on above: PATIENT WAS FASTINGP ERFORMED BY: TOBNI NohemiJudson FaganXvqkxd3144 [facility] [id number] Immature granulocytes (Bld) [#/Vol] 0.0 {x10E3/uL} Normal 0.0-0.1 [facility] Work Phone: Comment on above: PATIENT WAS FASTINGP ERFORMED BY: TOBIN [facility] Mdbfcg5515 [facility] [id number] Immature granulocytes (Bld) [#/Vol] 0.0 10*3/uL Normal 0.0-0.1 [facility]; [facility] Work Phone: Immature granulocytes/100 WBC (Bld) 0 % Normal [facility] Work Phone: Comment on above: PATIENT WAS FASTINGP ERFORMED BY: TOBIN [facility]Mer[facility] St[facility] Iydadj5708 [facility] [id number] Lymphocytes (Bld) [#/Vol] 4.1 {x10E3/uL} Abnormal 0.7-3.1 [facility] Work Phone: Comment on above: PATIENT WAS FASTINGP ERFORMED BY: TOBIN NohemiJohn Ville [id number] [facility] [id number] Lymphocytes (Bld) [#/Vol] 4.1 10*3/uL Abnormal 0.7-3.1 [facility]; [facility] Work Phone: Lymphocytes/100 WBC (Bld) 28 % Normal [facility] Work Phone: Comment on above: PATIENT WAS FASTINGP ERFORMED BY: TOBIN [place] 7076470 [facility] [id number] MCH (RBC) [Entitic mass] 29.9 pg Normal 26.6-33.0 [facility] Work Phone: Comment on above: PATIENT WAS FASTINGP ERFORMED BY: TOBIN [place] 7076470 [facility] [id number] MCHC (RBC) [Mass/Vol] 32.5 g/dL Normal 31.5-35.7 [facility] prehensive Internal Medicine Work Phone: Comment on above: PATIENT WAS FASTINGP ERFORMED BY: TOBIN Alvarez6370 [facility] [id number] MCV (RBC) [Entitic vol] 92 fL Normal 79-97 C [facility]mpking[facility] ohioensive Internal Medicine Work Phone: Comment on above: PATIENT WAS FASTINGP ERFORMED BY: TOBIN Elana Cxjros0818 [facility] [id number] Monocytes (Bld) [#/Vol] 0.9 {x10E3/uL} Normal 0.1-0.9 [facility] Work Phone: Comment on above: PATIENT WAS FASTINGP ERFORMED BY: TOBIN Elana Xtpggk6769 [facility] [id number] Monocytes (Bld) [#/Vol] 0.9 10*3/uL Normal 0.1-0.9 [facility]; [facility] Work Phone: Monocytes/100 WBC (Bld) 6 % Normal C [facility] hospitalensive [facility] Work Phone: Comment on above: PATIENT WAS FASTINGP ERFORMED BY: TOBIN Madhavi Alvarez6370 [facility] [id number] Neutrophils (Bld) [#/Vol] 9.4 {x10E3/uL} Abnormal 1.4-7.0 [facility] Work Phone: Comment on above: PATIENT WAS FASTINGP ERFORMED BY: LabMercy Hospital St. [facility] Vctgpg2085 [facility] [id number] Neutrophils (Bld) [#/Vol] 9.4 10*3/uL Abnormal 1.4-7.0 [facility]; [facility] Work Phone: Neutrophils/100 WBC (Bld) 65 % Normal [facility] Work Phone: Comment on above: PATIENT WAS FASTINGP ERFORMED BY: TOBIN LabMercy Hospital St. [facility] Mtmtuh2601 [facility] [id number] Platelets (Bld) [#/Vol] 287 {x10E3/uL} Normal 150-379 [facility] Work Phone: Comment on above: PATIENT WAS FASTINGP ERFORMED BY: TOBIN Alvarez6370 [facility] [id number] Platelets (Bld) [#/Vol] 287 10*3/uL Normal 150-379 [facility]; [facility] Work Phone: RBC (Bld) [#/Vol] 4.11 {x10E6/uL} Normal 3.77-5.28 Co [facility] hospitalehensive Internal [facility] Work Phone: Comment on above: PATIENT WAS FASTINGP ERFORMED BY: TOBIN Alvarez6370 [facility] [id number] RBC (Bld) [#/Vol] 4.11 10*6/uL Normal 3.77-5.28 Compr ensive Internal Medicine; [facility] Work Phone: WBC (Bld) [#/Vol] 14.6 {x10E3/uL} Abnormal 3.4-10.8 [facility] Work Phone: Comment on above: PATIENT WAS FASTINGP ERFORMED BY: TOBIN Faganlin6370 [facility] [id number] WBC (Bld) [#/Vol] 14.6 10*3/uL Abnormal 3.4-10.8 [facility]ensive [facility]; [facility] Work Phone: LIPID PANEL ([id number])Ordered B y: Pasteurizer on 03-04-2017 Cholesterol [Mass/Vol] 135 mg/dL Normal 100-199 Co [facility]ensive [facility] Work Phone: Comment on above: PATIENT WAS FASTINGP ERFORMED BY: TOBIN Alvarez6370 [facility] [id number] Cholesterol in HDL [Mass/Vol] 61 mg/dL Normal [facility] Work Phone: Comment on above: PATIENT WAS FASTINGP ERFORMED BY: TOBIN Faganlin6370 [facility] [id number] Cholesterol in LDL [Mass/Vol] 49 mg/dL Normal 0-99 [facility] Work Phone: Comment on above: PATIENT WAS FASTINGP ERFORMED BY: TOBIN Alvarez6370 [facility] [id number] Cholesterol in LDL/Cholesterol in HDL [Mass ratio] 0.8 {ratio_units} Normal 0.0-3.2 [facility] Work Phone: Comment on above: LDL/HDL Ratio Men Wo men 1/2 Avg.Risk 1.0 1.5 Avg.Risk 3.6 3.2 2X Avg.Risk 6.2 5.0 3X Avg.Risk 8.0 6.1 PATIENT WAS FASTINGP ERFORMED BY: TOBIN Faganlin6370 [facility] [id number] Cholesterol in VLDL [Mass/Vol] 25 mg/dL Normal 5-40 [facility] Work Phone: Comment on above: PATIENT WAS FASTINGP ERFORMED BY: TOBIN Faganlin6370 [facility] [id number] Triglyceride [Mass/Vol] 124 mg/dL Normal 0-149 C omprehensive Internal Medicine Work Phone: Comment on above: PATIENT WAS FASTINGP ERFORMED BY: TOBIN Faganlin6370 [facility] [id number] METABOLIC PANEL, COMPREHENSI VE ([id number])Ordered By: Pasteurizer on 03-04-2017 Albumin [Mass/Vol] 4.3 g/dL Normal 3.5-5.5 [facility] Internal Medicine Work Phone: Comment on above: PATIENT WAS FASTINGP ERFORMED BY: TOBIN LabJudson Fdwqtq4162 [facility] [id number] Albumin/Globulin [Mass ratio] 1.9 {ratio} Normal 1.2-2.2 [facility] Work Phone: Comment on above: PATIENT WAS FASTINGP ERFORMED BY: OTBIN LabJudson Aqvgxt1734 [facility] [id number] ALP [Catalytic activity/Vol] 29 [iU]/L Abnormal 39-117 [facility] Work Phone: Comment on above: PATIENT WAS FASTINGP ERFORMED BY: TOBIN Madhavi Alvarez6370 [address] Roadblin [place] [id number] ALP [Catalytic activity/Vol] 29 U/L Abnormal 39-117 [facility]; [facility] Work Phone: ALT [Catalytic activity/Vol] 9 [iU]/L Normal 0-32 [facility] Work Phone: Comment on above: PATIENT WAS FASTINGP ERFORMED BY: TOBIN LabMercy [facility] St[facility] Tlqpxo3188 [address] [facility] Childrenblin [place] [id number] ALT [Catalytic activity/Vol] 9 U/L Normal 0-32 [facility]; [facility] Work Phone: AST [Catalytic activity/Vol] 13 [iU]/L Normal 0-40 [facility] Work Phone: Comment on above: PATIENT WAS FASTINGP ERFORMED BY: TOBIN LabMercy [facility] St[facility] Wqgahz7727 [address] [facility] [place] [id number] AST [Catalytic activity/Vol] 13 U/L Normal 0-40 [facility]; [facility] Work Phone: Bilirubin [Mass/Vol] mg/dL Normal 0.0-1.2 [facility] rehensive Internal Medicine Work Phone: Comment on above: PATIENT WAS FASTINGP ERFORMED BY: TOBIN LabMercy Hospital St[facility] Bkxmda9969 [address] [facility]in [place] [id number] Bilirubin [Mass/Vol] mg/dL Normal 0.0-1.2 Comp rehensive Internal Medicine; [facility] Work Phone: Calcium [Mass/Vol] 9.3 mg/dL Normal 8.7-10.2 [facility] Internal Medicine Work Phone: Comment on above: PATIENT WAS FASTINGP ERFORMED BY: TOBIN LabCo Uvihcp9421 [address] RoadDublin [place] [id number] Chloride [Moles/Vol] 101 mmol/L Normal 96-106 Comp rehensive Internal Medicine Work Phone: Comment on above: PATIENT WAS FASTINGP ERFORMED BY: CB [facility] Hhpore6336 [address] RoadDublin [place] [id number] CO2 [Moles/Vol] 24 mmol/L Normal 18-29 Com[facility] Internal Medicine Work Phone: Comment on above: PATIENT WAS FASTINGP ERFORMED BY: CB [facility] Yaasrm0050 Jenkins RoadDublin [place] [id number] Creatinine [Mass/Vol] 0.80 mg/dL Normal 0.57-1.00 [facility] Work Phone: Comment on above: PATIENT WAS FASTINGP ERFORMED BY: CB [facility] Ymgvti4070 [address] RoadDublin [place] [id number] GFR/1.73 sq M predicted among blacks CKD-EPI (S/P/Bld) [Vol rate/Area] 104 mL/min/1.73 Normal [facility] Work Phone: Comment on above: PATIENT WAS FASTINGP ERFORMED BY: CB [facility] Fbvktm1231 [address] RoadDublin [place] [id number] GFR/1.73 sq M predicted among non-blacks CKD-EPI (S/P/Bld) [Vol rate/Area] 90 mL/min/1.73 Normal [facility] Work Phone: Comment on above: PATIENT WAS FASTINGP ERFORMED BY: CB [facility] Phdsug3548 Jenkins RoadDublin [place] [id number] Globulin (S) [Mass/Vol] 2.3 g/dL Normal 1.5-4.5 [facility]ensive [facility] Work Phone: Comment on above: PATIENT WAS FASTINGP ERFORMED BY: CB [facility] Dheiiv9406 Jenkins RoadDublin [place] [id number] Glucose [Mass/Vol] 90 mg/dL Normal 65-99 [facility] Internal Medicine Work Phone: Comment on above: PATIENT WAS FASTINGP ERFORMED BY: CB [facility] Ptlfwn3630 [address] RoadDublin [place] [id number] Potassium [Moles/Vol] 3.9 mmol/L Normal 3.5-5.2 [facility] prehensive Internal Medicine Work Phone: Comment on above: PATIENT WAS FASTINGP ERFORMED BY: TOBIN Huitron Ulyanb1652 [facility] [id number] Protein [Mass/Vol] 6.6 g/dL Normal 6.0-8.5 [facility] Internal Medicine Work Phone: Comment on above: PATIENT WAS FASTINGP ERFORMED BY: TOBIN Huitron Iuohhr1661 [facility] [id number] Sodium [Moles/Vol] 142 mmol/L Normal 134-144 [facility] Internal Medicine Work Phone: Comment on above: PATIENT WAS FASTINGP ERFORMED BY: TOBIN Faagnlin6370 [facility] [id number] Urea nitrogen [Mass/Vol] 13 mg/dL Normal 6-24 [facility] Internal Medicine Work Phone: Comment on above: PATIENT WAS FASTINGP ERFORMED BY: TOBIN Huitron Fsfitv3439 [facility] [id number] Urea nitrogen/Creatinine [Mass ratio] 16 mg/mg Normal 9-23 [facility] Internal Medicine Work Phone: Comment on above: PATIENT WAS FASTINGP ERFORMED BY: TOBIN Hendrickson Wxnhnz0517 [facility] [id number] Office Visit: est annualon 1 Documentation of current medications (procedure) Done Invalid Interpretation Code [facility] Fall risk assessment No Invalid Interpretation Code [facility] Tobacco smoking status NHIS Never Invalid Interpretation Code [facility] Tobacco use CPHS Current every day smoker Invalid Interpretation Code [facility] Office Visiton 01-25-2017 Hemoglobin presence in stool not done Invalid Interpretation Code [facility] Cancer Antigen (CA) 125 ([phone])Ordered By: Pasteurizer on 12-17-2016 Cancer Ag 125 Qn 5.8 U/mL Normal 0.0-38.[address] [facility] Internal Medicine Work Phone: Comment on above: Jesus ECLIA methodol ogy PATIENT NOT FASTINGP ERFORMED BY: TOBIN Hendrickson Ioaebz6485 [address]in [place] [id number] Cancer Ag 125 Qn 5.8 [arb'U]/mL Normal 0.0-38.1 Comp rehensive Internal Medicine; [facility] Work Phone: URINE RANGEL CULTURE-IDENTIFICA [place] ([id number])Ordered By: Pasteurizer on 12-03-2016 Bacteria identified Cx Nom (U) MUG Normal [facility] Work Phone: Comment on above: Mixed urogenital lilibeth ra6,000 Colonies/mL PATIENT NOT FASTINGP ERFORMED BY: LabBreak30rp Aquizi1974 HelpaUNC Health [id number] Information: SRC:EDWARDO Bacteria identified Cx Nom (U) Final report Normal [facility] Work Phone: Comment on above: PATIENT NOT FASTINGP ERFORMED BY: [facility]70 [facility] [id number] Information: SRC:EDWARDO Urinalysis, Office ([id number])Or dered By: [place] on 12-03-2016 Bilirubin [...] of bloodnit an d leuk neg CALCIFIDIOL (94694) VIT D 25 Ordered By: Pasteurizer on 08-18-2016 25-Hydroxyvitamin D2+25-Hydroxyvitamin D3 [Mass/Vol] 42.6 ng/mL Normal 30.0-100.0 [facility] Work Phone: Comment on above: Vitamin D deficiency has been defined by the [place] ofMedicine and an Endocrine Society practice guideline as alevel of serum 25-OH vitamin D less than 20 ng/mL (1,2).The Endocrine Society went on to further define vitamin Dinsufficiency as a level between 21 and 29 ng/mL (2).1. IOM ([place] of Medicine). 2010. Dietary reference intakes for calcium and D. [place]: The National Academies Press.2. Danita MF, Bev VALENZUELA, Merry NEW, et al. Evaluation, treatment, and prevention of vitamin D deficiency: an Endocrine Society clinical practice guideline. JCEM. 2010; 96(0):1911-30. PATIENT WAS FASTINGP ERFORMED BY: TOBIN [facility] Rnwqyk4220 [address] RoadDublin [place] [id number] CBC W/AUTO DIFF WBC (31998)O rdered By: Pasteurizer on 08-18-2016 Basophils (Bld) [#/Vol] 0.0 {x10E3/uL} Normal 0.0-0.2 [facility] Work Phone: Comment on above: PATIENT WAS FASTINGP ERFORMED BY: CB [facility] Qxxpsj8470 [address] Roadblin [place] [id number]; fu 08-28 kf Basophils (Bld) [#/Vol] 0.0 10*3/uL Normal 0.0-0.2 [facility]; [facility] Work Phone: Basophils/100 WBC (Bld) 0 % Normal C [facility]hoh[facility] Internal Medicine Work Phone: Comment on above: PATIENT WAS FASTINGP ERFORMED BY: [facility] Nqpvoc7568 Jenkins RoadWakemed North Hospitalin [place] [id number]; fu 08-28 kf Eosinophils (Bld) [#/Vol] 0.2 {x10E3/uL} Normal 0.0-0.4 [facility] Work Phone: Comment on above: PATIENT WAS FASTINGP ERFORMED BY: [facility] Awxlje5216 [address] RoadDublin [place] [id number]; 08-28 kf Eosinophils (Bld) [#/Vol] 0.2 10*3/uL Normal 0.0-0.4 [facility]; [facility] Work Phone: Eosinophils/100 WBC (Bld) 2 % Normal [facility] Work Phone: Comment on above: PATIENT WAS FASTINGP ERFORMED BY: CB [facility] Agylxx5350 [address] RoadDublin [place] [id number]; fu 08-28 kf Erythrocyte distribution width (RBC) [Ratio] 14.6 % Normal 12.3-15.4 [facility] Work Phone: Comment on above: PATIENT WAS FASTINGP ERFORMED BY: [facility] Pfdhpa5491 [address] RoadDublin [place] [id number]; 08-28 kf Hematocrit (Bld) [Volume fraction] 41.5 % Normal 34.0-46.6 [facility] Work Phone: Comment on above: PATIENT WAS FASTINGP ERFORMED BY: CB [facility] Nsfqxk1805 [address] Roadblin [place] [id number]; 08-28 kf Hemoglobin (Bld) [Mass/Vol] 13.6 g/dL Normal 11.1-15.9 [facility] Work Phone: Comment on above: PATIENT WAS FASTINGP ERFORMED BY: [facility] Jvntxi2600 Jenkins RoadWakemed North Hospitalin [place] [id number]; 08-28 kf Immature granulocytes (Bld) [#/Vol] 0.0 {x10E3/uL} Normal 0.0-0.1 [facility] Work Phone: Comment on above: PATIENT WAS FASTINGP ERFORMED BY: LabCo Kjwzil6563 Jenkins RoadWakemed North Hospitalin [place] [id number]; 08-28 kf Immature granulocytes (Bld) [#/Vol] 0.0 10*3/uL Normal 0.0-0.1 [facility]; [facility] Work Phone: Immature granulocytes/100 WBC (Bld) 0 % Normal [facility] Work Phone: Comment on above: PATIENT WAS FASTINGP ERFORMED BY: [facility] Eiygza4763 Jenkins RoadWakemed North Hospitalin [place] [id number]; 08-28 kf Lymphocytes (Bld) [#/Vol] 3.8 {x10E3/uL} Abnormal 0.7-3.1 [facility] Work Phone: Comment on above: PATIENT WAS FASTINGP ERFORMED BY: CB [facility] Gbeatc3285 [address] RoadDublin [place] [id number]; 08-28 kf Lymphocytes (Bld) [#/Vol] 3.8 10*3/uL Abnormal 0.7-3.1 [facility]; [facility] Work Phone: Lymphocytes/100 WBC (Bld) 36 % Normal [facility] Internal Medicine Work Phone: Comment on above: PATIENT WAS FASTINGP ERFORMED BY: TOBIN [facility] Afugnf7690 [address] RoadDublin [place] [id number]; fu 08-28 kf MCH (RBC) [Entitic mass] 29.3 pg Normal 26.6-33.0 [facility] Internal Medicine Work Phone: Comment on above: PATIENT WAS FASTINGP ERFORMED BY: CB [facility] Tpfrhd4668 [address] RoadDublin [place] [id number]; - kf MCHC (RBC) [Mass/Vol] 32.8 g/dL Normal 31.5-35.7 [facility] Internal Medicine Work Phone: Comment on above: PATIENT WAS FASTINGP ERFORMED BY: CB [facility] Unypvu8009 Jenkins RoadWakemed North Hospitalin [place] [id number]; fu - kf MCV (RBC) [Entitic vol] 89 fL Normal 79-97 [facility] Work Phone: Comment on above: PATIENT WAS FASTINGP ERFORMED BY: CB [facility] Fynpim7171 Jenkins RoadWakemed North Hospitalin [place] [id number]; fu - kf Monocytes (Bld) [#/Vol] 0.6 {x10E3/uL} Normal 0.1-0.9 [facility] Internal Medicine Work Phone: Comment on above: PATIENT WAS FASTINGP ERFORMED BY: CB [facility] Biohjh3562 [address] RoadDublin [place] [id number]; fu 08-28 kf Monocytes (Bld) [#/Vol] 0.6 10*3/uL Normal 0.1-0.9 [facility] Internal Medicine; [facility] Work Phone: Monocytes/100 WBC (Bld) 6 % Normal C ompking's daughters medical center ohioensive Internal Medicine Work Phone: Comment on above: PATIENT WAS FASTINGP ERFORMED BY: TOBIN [facility] Qdayvx9840 Jenkins RoadWakemed North Hospitalin [place] [id number]; fu 4-28 kf Neutrophils (Bld) [#/Vol] 5.7 {x10E3/uL} Normal 1.4-7.0 [facility] Work Phone: Comment on above: PATIENT WAS FASTINGP ERFORMED BY: LabCo Gdrscj4389 [address] [facility]in [place] [id number]; fu 4-28 kf Neutrophils (Bld) [#/Vol] 5.7 10*3/uL Normal 1.4-7.0 [facility]; [facility] Work Phone: Neutrophils/100 WBC (Bld) 56 % Normal [facility] Work Phone: Comment on above: PATIENT WAS FASTINGP ERFORMED BY: LabMer[facility] Zpmttr6575 [address] [facility]in [place] [id number]; fu 4- kf Platelets (Bld) [#/Vol] 304 {x10E3/uL} Normal 150-379 [facility] Work Phone: Comment on above: PATIENT WAS FASTINGP ERFORMED BY: LabCo Dknrcg6136 [address] [facility]in [place] [id number]; fu 4- kf Platelets (Bld) [#/Vol] 304 10*3/uL Normal 150-379 [facility]; [facility] Work Phone: RBC (Bld) [#/Vol] 4.64 {x10E6/uL} Normal 3.77-5.28 [facility] Internal Medicine Work Phone: Comment on above: PATIENT WAS FASTINGP ERFORMED BY: CB [facility] Rnqmgz[address] [facility]in [place] [id number]; fu 4-28 kf RBC (Bld) [#/Vol] 4.64 10*6/uL Normal 3.77-5.28 [facility] Internal Medicine; [facility] Work Phone: WBC (Bld) [#/Vol] 10.4 {x10E3/uL} Normal 3.4-10.8 [facility] Internal Medicine Work Phone: Comment on above: PATIENT WAS FASTINGP ERFORMED BY: TOBIN Alvarez6[address] Jenkins RoadDublin [place] [id number]; fu 4-28 kf WBC (Bld) [#/Vol] 10.4 10*3/uL Normal 3.4-10.8 [facility]; [facility] Work Phone: LIPID PANEL ([id number])Ordered B y: Pasteurizer on 08-18-2016 Cholesterol [Mass/Vol] 167 mg/dL Normal 100-199 Co [facility] Internal Medicine Work Phone: Comment on above: PATIENT WAS FASTINGP ERFORMED BY: TOBIN Alvarez[address] Mit[place]blin [place] [id number] Cholesterol in HDL [Mass/Vol] 59 mg/dL Normal [facility] Work Phone: Comment on above: PATIENT WAS FASTINGP ERFORMED BY: TOBIN Alvarez[address] MitusWakemed North Hospitalin [place] [id number] Cholesterol in LDL [Mass/Vol] 75 mg/dL Normal 0-99 [facility] Work Phone: Comment on above: PATIENT WAS FASTINGP ERFORMED BY: TOBIN Alvarez[address] [facility]in [place] [id number] Cholesterol in LDL/Cholesterol in HDL [Mass ratio] 1.3 {ratio_units} Normal 0.0-3.2 [facility] Work Phone: Comment on above: LDL/HDL Ratio Men Wo men 1/2 Avg.Risk 1.0 1.5 Avg.Risk 3.6 3.2 2X Avg.Risk 6.2 5.0 3X Avg.Risk 8.0 6.1 PATIENT WAS FASTINGP ERFORMED BY: TOBIN Faganlin[address] [facility] HospitalDublin [place] [id number] Cholesterol in VLDL [Mass/Vol] 33 mg/dL Normal 5-40 [facility] Work Phone: Comment on above: PATIENT WAS FASTINGP ERFORMED BY: TOBIN Faganlin6[address] RoadDublin [place] [id number] Triglyceride [Mass/Vol] 165 mg/dL Abnormal 0-149 C o[facility] Internal Medicine Work Phone: Comment on above: PATIENT WAS FASTINGP ERFORMED BY: TOBIN [facility] Hnzaah4335 Jenkins RoadDublin [place] [id number] METABOLIC PANEL, COMPREHENSI VE ([id number])Ordered By: Pasteurizer on 08-18-2016 Albumin [Mass/Vol] 4.4 g/dL Normal 3.5-5.5 [facility] Internal Medicine Work Phone: Comment on above: PATIENT WAS FASTINGP ERFORMED BY: TOBIN [facility] Bjtgvg5799 Jenkins RoadDublin [place] [id number] Albumin/Globulin [Mass ratio] 1.8 {ratio} Normal 1.2-2.2 [facility] Work Phone: Comment on above: PATIENT WAS FASTINGP ERFORMED BY: TOBIN [facility] Uoedhq1510 Jenkins RoadDublin [place] [id number] ALP [Catalytic activity/Vol] 36 [iU]/L Abnormal 39-117 [facility] Work Phone: Comment on above: PATIENT WAS FASTINGP ERFORMED BY: TOBIN [facility] Besmxb2167 Jenkins RoadDublin [place] [id number] ALP [Catalytic activity/Vol] 36 U/L Abnormal 39-117 [facility]; [facility] Work Phone: ALT [Catalytic activity/Vol] 11 [iU]/L Normal 0-32 [facility] Work Phone: Comment on above: PATIENT WAS FASTINGP ERFORMED BY: CB [facility] Hqfbfx3194 Jenkins RoadDublin [place] [id number] ALT [Catalytic activity/Vol] 11 U/L Normal 0-32 [facility]; [facility] Work Phone: AST [Catalytic activity/Vol] 16 [iU]/L Normal 0-40 [facility] Work Phone: Comment on above: PATIENT WAS FASTINGP ERFORMED BY: TOBIN [facility] Qixtwo0566 [address] RoadDublin [place] [id number] AST [Catalytic activity/Vol] 16 U/L Normal 0-40 [facility]; [facility] Internal Medicine Work Phone: Bilirubin [Mass/Vol] mg/dL Normal 0.0-1.2 [facility] Work Phone: Comment on above: PATIENT WAS FASTINGP ERFORMED BY: CB [facility] Vyvzvk1528 [address] RoadDublin [place] [id number] Bilirubin [Mass/Vol] mg/dL Normal 0.0-1.2 [facility] Internal [facility]; [facility] Internal Medicine Work Phone: Calcium [Mass/Vol] 10.0 mg/dL Normal 8.7-10.2 [facility] Internal Medicine Work Phone: Comment on above: PATIENT WAS FASTINGP ERFORMED BY: CB [facility] Ighikd5945 Jenkins RoadDublin [place] [id number] Chloride [Moles/Vol] 103 mmol/L Normal 96-106 [facility]erens[facility] Internal Medicine Work Phone: Comment on above: PATIENT WAS FASTINGP ERFORMED BY: CB [facility] Doktwf6371 [address] RoadDublin [place] [id number] CO2 [Moles/Vol] 23 mmol/L Normal 18-29 [facility] Internal Medicine Work Phone: Comment on above: PATIENT WAS FASTINGP ERFORMED BY: CB [facility] Woumuf1258 [address] RoadDublin [place] [id number] Creatinine [Mass/Vol] 0.83 mg/dL Normal 0.57-1.00 [facility] Internal Medicine Work Phone: Comment on above: PATIENT WAS FASTINGP ERFORMED BY: CB [facility] Zbvntj1885 [address] RoadDublin [place] [id number] GFR/1.73 sq M predicted among blacks CKD-EPI (S/P/Bld) [Vol rate/Area] 99 mL/min/1.73 Normal [facility] Internal Medicine Work Phone: Comment on above: PATIENT WAS FASTINGP ERFORMED BY: CB [facility] Lrhfuu2284 [address] RoadDublin [place] [id number] GFR/1.73 sq M predicted among non-blacks CKD-EPI (S/P/Bld) [Vol rate/Area] 86 mL/min/1.73 Normal [facility] Internal Medicine Work Phone: Comment on above: PATIENT WAS FASTINGP ERFORMED BY: TOBIN [facility] Akwmei9369 [address] RoadDublin [place] [id number] Globulin (S) [Mass/Vol] 2.5 g/dL Normal 1.5-4.5 [facility] Work Phone: Comment on above: PATIENT WAS FASTINGP ERFORMED BY: CB [facility] Vhiwsq1451 [address] RoadDublin [place] [id number] Glucose [Mass/Vol] 89 mg/dL Normal 65-99 [facility] Internal Medicine Work Phone: Comment on above: PATIENT WAS FASTINGP ERFORMED BY: TOBIN [facility] Bxfmkg6196 [address] RoadDublin [place] [id number] Potassium [Moles/Vol] 4.6 mmol/L Normal 3.5-5.2 [facility] Internal Medicine Work Phone: Comment on above: PATIENT WAS FASTINGP ERFORMED BY: [facility] Qglfqx0953 [address] RoadDublin [place] [id number] Protein [Mass/Vol] 6.9 g/dL Normal 6.0-8.5 [facility] Internal Medicine Work Phone: Comment on above: PATIENT WAS FASTINGP ERFORMED BY: [facility] Ijovxy4890 [address] RoadDublin [place] [id number] Sodium [Moles/Vol] 142 mmol/L Normal 134-144 [facility] Internal Medicine Work Phone: Comment on above: PATIENT WAS FASTINGP ERFORMED BY: CB [facility] Ryzttg6994 [address] RoadDublin [place] [id number] Urea nitrogen [Mass/Vol] 11 mg/dL Normal 6-24 [facility] Internal Medicine Work Phone: Comment on above: PATIENT WAS FASTINGP ERFORMED BY: CB [facility] Cwmfok0024 [address] RoadDublin [place] [id number] Urea nitrogen/Creatinine [Mass ratio] 13 mg/mg Normal 9-23 [facility] Work Phone: Comment on above: PATIENT WAS FASTINGP ERFORMED BY: SoftArtHenry [facility]6[address] [facility] [id number] TSH ([id number])Ordered By: Fetch MD Sales Representative [employer] on 08-18-2016 TSH Qn 2.340 {uIU/mL} Normal 0.450-4.50 0 [facility] Work Phone: Comment on above: PATIENT WAS FASTINGP ERFORMED BY: [facility]6[address] [facility] [id number] CBC, Platelets & Auto Diff ( 53836)Ordered By: Pasteurizer on 04-10-2016 Basophils (Bld) [#/Vol] 0.0 {x10E3/uL} Normal 0.0-0.2 [facility] Work Phone: Comment on above: PATIENT NOT FASTINGP ERFORMED BY: [facility]6[address] [facility] [id number] Basophils (Bld) [#/Vol] 0.0 10*3/uL Normal 0.0-0.2 [facility]; [facility] Work Phone: Basophils/100 WBC (Bld) 0 % Normal C [facility] Internal Medicine Work Phone: Comment on above: PATIENT NOT FASTINGP ERFORMED BY: [facility]6[address] [facility] [id number] Eosinophils (Bld) [#/Vol] 0.4 {x10E3/uL} Normal 0.0-0.4 [facility] Work Phone: Comment on above: PATIENT NOT FASTINGP ERFORMED BY: [facility]6[address] [facility] [id number] Eosinophils (Bld) [#/Vol] 0.4 10*3/uL Normal 0.0-0.4 [facility]; [facility] Work Phone: Eosinophils/100 WBC (Bld) 4 % Normal [facility] Work Phone: Comment on above: PATIENT NOT FASTINGP ERFORMED BY: TOBIN [facility] Vjfloz5352 [address] RoadDublin [place] [id number] Erythrocyte distribution width (RBC) [Ratio] 14.4 % Normal 12.3-15.4 [facility] Work Phone: Comment on above: PATIENT NOT FASTINGP ERFORMED BY: CB [facility] Yiabtn0880 [address] RoadDublin [place] [id number] Hematocrit (Bld) [Volume fraction] 39.9 % Normal 34.0-46.6 [facility] Work Phone: Comment on above: PATIENT NOT FASTINGP ERFORMED BY: CB [facility] Xzwepz4055 [address] RoadDublin [place] [id number] Hemoglobin (Bld) [Mass/Vol] 13.4 g/dL Normal 11.1-15.9 [facility] Work Phone: Comment on above: PATIENT NOT FASTINGP ERFORMED BY: CB [facility] Okdukg7046 [address] RoadDublin [place] [id number] Immature granulocytes (Bld) [#/Vol] 0.0 {x10E3/uL} Normal 0.0-0.1 [facility] Work Phone: Comment on above: PATIENT NOT FASTINGP ERFORMED BY: CB [facility] Afsnjc1195 [address] RoadDublin [place] [id number] Immature granulocytes (Bld) [#/Vol] 0.0 10*3/uL Normal 0.0-0.1 [facility]; [facility] Work Phone: Immature granulocytes/100 WBC (Bld) 0 % Normal [facility] Work Phone: Comment on above: PATIENT NOT FASTINGP ERFORMED BY: CB [facility] Edzscs7762 [address] RoadDublin [place] [id number] Lymphocytes (Bld) [#/Vol] 3.9 {x10E3/uL} Abnormal 0.7-3.1 [facility] Work Phone: Comment on above: PATIENT NOT FASTINGP ERFORMED BY: CB [facility] Txhjgo4158 [address] RoadDublin [place] [id number] Lymphocytes (Bld) [#/Vol] 3.9 10*3/uL Abnormal 0.7-3.1 [facility]; [facility] Work Phone: Lymphocytes/100 WBC (Bld) 41 % Normal [facility] Work Phone: Comment on above: PATIENT NOT FASTINGP ERFORMED BY: CB [facility] Vdoxms9577 Jenkins RoadWakemed North Hospitalin [place] [id number] MCH (RBC) [Entitic mass] 29.9 pg Normal 26.6-33.0 [facility] Work Phone: Comment on above: PATIENT NOT FASTINGP ERFORMED BY: CB [facility] Pngqos[address] [facility]in [place] [id number] MCHC (RBC) [Mass/Vol] 33.6 g/dL Normal 31.5-35.7 [facility] Internal Medicine Work Phone: Comment on above: PATIENT NOT FASTINGP ERFORMED BY: TOBIN [facility] Xgmcqe[address] [facility]in [place] [id number] MCV (RBC) [Entitic vol] 89 fL Normal 79-97 C ompking[facility] center ohioensive Internal Medicine Work Phone: Comment on above: PATIENT NOT FASTINGP ERFORMED BY: TOBIN [facility] Hegvpn[address] [facility]in [place] [id number] Monocytes (Bld) [#/Vol] 0.6 {x10E3/uL} Normal 0.1-0.9 [facility] Work Phone: Comment on above: PATIENT NOT FASTINGP ERFORMED BY: CB [facility] Peftlb8[address] [facility] HospitalDublin [place] [id number] Monocytes (Bld) [#/Vol] 0.6 10*3/uL Normal 0.1-0.9 [facility]; [facility] Work Phone: Monocytes/100 WBC (Bld) 6 % Normal C [facility] Internal Medicine Work Phone: Comment on above: PATIENT NOT FASTINGP ERFORMED BY: CB [facility] Zvshvn3249 [address] [facility] [id number] Neutrophils (Bld) [#/Vol] 4.7 {x10E3/uL} Normal 1.4-7.0 [facility] Work Phone: Comment on above: PATIENT NOT FASTINGP ERFORMED BY: TOBIN Alvarez63Jerman Pereirain [place] [id number] Neutrophils (Bld) [#/Vol] 4.7 10*3/uL Normal 1.4-7.0 [facility]; [facility] Work Phone: Neutrophils/100 WBC (Bld) 49 % Normal [facility] Work Phone: Comment on above: PATIENT NOT FASTINGP ERFORMED BY: TOBIN Alvarez63[address] [facility] [id number] Platelets (Bld) [#/Vol] 272 {x10E3/uL} Normal 150-379 [facility] Work Phone: Comment on above: PATIENT NOT FASTINGP ERFORMED BY: TOBIN Madhavi Alvarez6370 [facility] [id number] Platelets (Bld) [#/Vol] 272 10*3/uL Normal 150-379 [facility]; [facility] Work Phone: RBC (Bld) [#/Vol] 4.48 {x10E6/uL} Normal 3.77-5.28 [facility] Internal Medicine Work Phone: Comment on above: PATIENT NOT FASTINGP ERFORMED BY: TOBIN Alvarez6370 [facility] [id number] RBC (Bld) [#/Vol] 4.48 10*6/uL Normal 3.77-5.28 [facility] Internal Medicine; [facility] Work Phone: WBC (Bld) [#/Vol] 9.6 {x10E3/uL} Normal 3.4-10.8 [facility] Internal Medicine Work Phone: Comment on above: PATIENT NOT FASTINGP ERFORMED BY: TOBIN LabCojoseph FaganMnxqjz6010 [facility] [id number] WBC (Bld) [#/Vol] 9.6 10*3/uL Normal 3.4-10.8 [facility] Internal Medicine; [facility] Work Phone: AMYLASE ([phone])Ordered By: Jase easleytem Sales Representative [employer] on 04-07-2016 Amylase [Catalytic activity/Vol] 52 U/L Normal 25-115 [facility] Work Phone: Comment on above: Order Date: 04/07/16 Order Info: 0786-1 - CMPOrder Info: 1798-8 - AMYOrder Info: 3040-3 - LIPASEOrder Date: 04/07/16Order Info: 3040-3 - [facility] Zsmlllyzue1897 [facility] [address] [place], [place], [address] LIPASE (31590)Ordered By: Navin mai Sales Representative [employer] on 04-07-2016 Lipase [Catalytic activity/Vol] 257 U/L Normal 73-393 [facility] Work Phone: Comment on above: Order Date: 04/07/16 Order Info: 0786-1 - CMPOrder Info: [id number] - AMYOrder Info: 3040-3 - LIPASEOrder Date: 04/07/16Order Info: 3040-3 - [facility] Phrvaaixdx[address] HerringStephanie [place], [place], [address] URINE RANGEL CULTURE-ALEXANDRE COL C OUNT (73070)Ordered By: Pasteurizer on 04-07-2016 Bacteria identified Cx Nom (U) MUG Normal [facility] Work Phone: Comment on above: Mixed urogenital lilibeth ra1,000 Colonies/mL PATIENT NOT FASTINGP ERFORMED BY: CB [facility] Bhivij3940 [address] RoadDublin [place] [id number] Information: SRC:UC Bacteria identified Cx Nom (U) Final report Normal [facility] Work Phone: Comment on above: PATIENT NOT FASTINGP ERFORMED BY: CB [facility] Vmifdu9777 [address] RoadDublin [place] [id number] Information: SRC:EDWARDO Urinalysis, Office (96165)on 04-07-2016 Bilirubin Ql (U) Negative Normal Comprehe [...] Phone: URINE RANGEL CULTURE-ALEXANDRE COL C OUNT (50700)Ordered By: Pasteurizer on 03-02-2016 Bacteria identified Cx Nom (U) [...] SVancomycin S PATIENT NOT FASTINGP ERFORMED BY: TOBIN [facility]70 [facility] [id number] Information: SRC:EDWARDO Bacteria identified Cx Nom (U) Final report Abnormal [facility] Work Phone: Comment on above: PATIENT NOT FASTINGP ERFORMED BY: TOBIN [employer] [facility] [id number] Information: SRC:EDWARDO Urinalysis, Office (22934)on 03-02-2016 Bilirubin Ql (U) Negative Normal Comprehe [...] Normal [facility] Work Phone: CALCIFIDIOL (00507) VIT D 25 Ordered By: Pasteurizer on 02-14-2016 25-Hydroxyvitamin D2+25-Hydroxyvitamin D3 [Mass/Vol] 62.9 ng/mL Normal 30.0-100.0 [facility] Work Phone: Comment on above: Vitamin D deficiency has been defined by the [place] ofMedicine and an Endocrine Society practice guideline as alevel of serum 25-OH vitamin D less than 20 ng/mL (1,2).The Endocrine Society went on to further define vitamin Dinsufficiency as a level between 21 and 29 ng/mL (2).1. IOM ([place] of Medicine). 2010. Dietary reference intakes for calcium and D. Christopher [place]: The National Academies Press.2. Danita MF, Bev NC, Merry NEW, et al. Evaluation, treatment, and prevention of vitamin D deficiency: an Endocrine Society clinical practice guideline. JCEM. 2010; 96(7):1911-30. PATIENT NOT FASTINGP ERFORMED BY: LabCoGreystone Park Psychiatric HospitalBbqebd4142 [facility] [id number] HgA1C , Office (13201)Ordere d By: Ruby Rashawntova on 07-24-2015 HbA1c (Bld) [Mass fraction] 5.4 % Normal 4.6 - 7.1 [facility] Work Phone: Rapid Flu ([phone] x 2)Ordered By: Isabel Guillen on 07-08-2015 FLUAV Ag IA Ql (Throat) Negative Normal [facility] Work Phone: FLUAV Ag IA Ql (Throat) Negative Normal [facility]; [facility] Work Phone: CALCIFIDIOL (36596) VIT D 25 Ordered By: Pasteurizer on 04-29-2015 25-Hydroxyvitamin D2+25-Hydroxyvitamin D3 [Mass/Vol] 43.4 ng/mL Normal 30.0-100.0 [facility] Work Phone: Comment on above: Vitamin D deficiency has been defined by the [place] ofJ.W. Ruby Memorial Hospitalcine and an Endocrine Society practice guideline as alevel of serum 25-OH vitamin D less than 20 ng/mL (1,2).The Endocrine Society went on to further define vitamin Dinsufficiency as a level between 21 and 29 ng/mL (2).1. IOM ([place] of Medicine). 2010. Dietary reference intakes for calcium and D. [place]: The National Academies Press.2. Danita MF, Bev VALENZUELA, Merry NEW, et al. Evaluation, treatment, and prevention of vitamin D deficiency: an Endocrine Society clinical practice guideline. JCEM. 2010; 96(7):1911-30. PATIENT WAS FASTINGP ERFORMED BY: [employer]70 HelpaUNC Health [id number] CBC W/AUTO DIFF WBC (05711)O rdered By: Pasteurizer on 04-29-2015 Basophils (Bld) [#/Vol] 0.0 {x10E3/uL} Normal 0.0-0.2 [facility] Work Phone: Comment on above: PATIENT WAS FASTINGP ERFORMED BY: Starbates6370 PinoccioFormerly [facility] [id number] Information: [id number] Basophils (Bld) [#/Vol] 0.0 10*3/uL Normal 0.0-0.2 [facility]; [facility] Work Phone: Basophils/100 WBC (Bld) 0 % Normal [facility] Work Phone: Comment on above: PATIENT WAS FASTINGP ERFORMED BY: [address] [id number] Information: [id number] Eosinophils (Bld) [#/Vol] 0.3 {x10E3/uL} Normal 0.0-0.4 [facility] Work Phone: Comment on above: PATIENT WAS FASTINGP ERFORMED BY: [address] [id number] Information: [id number] Eosinophils (Bld) [#/Vol] 0.3 10*3/uL Normal 0.0-0.4 [facility]; [facility] Work Phone: Eosinophils/100 WBC (Bld) 3 % Normal [facility] Work Phone: Comment on above: PATIENT WAS FASTINGP ERFORMED BY: [address] [id number] Information: [id number] Erythrocyte distribution width (RBC) [Ratio] 13.8 % Normal 12.3-15.4 [facility] Work Phone: Comment on above: PATIENT WAS FASTINGP ERFORMED BY: [address] [id number] Information: [id number] Hematocrit (Bld) [Volume fraction] 44.3 % Normal 34.0-46.6 [facility] Work Phone: Comment on above: PATIENT WAS FASTINGP ERFORMED BY: [address] [id number] Information: [id number] Hemoglobin (Bld) [Mass/Vol] 14.6 g/dL Normal 11.1-15.9 [facility] Work Phone: Comment on above: PATIENT WAS FASTINGP ERFORMED BY: [place] [address]9870 [facility] [id number] Information: [id number] Immature granulocytes (Bld) [#/Vol] 0.0 {x10E3/uL} Normal 0.0-0.1 [facility] Work Phone: Comment on above: PATIENT WAS FASTINGP ERFORMED BY: [address] [id number] Information: [id number] Immature granulocytes (Bld) [#/Vol] 0.0 10*3/uL Normal 0.0-0.1 [facility]; [facility] Work Phone: Immature granulocytes/100 WBC (Bld) 0 % Normal [facility] Work Phone: Comment on above: PATIENT WAS FASTINGP ERFORMED BY: [place] 2269870 [facility] [id number] Information: [id number] Lymphocytes (Bld) [#/Vol] 3.4 {x10E3/uL} Abnormal 0.7-3.1 [facility] Work Phone: Comment on above: PATIENT WAS FASTINGP ERFORMED BY: [place] 2269870 [facility] [id number] Information: [id number] Lymphocytes (Bld) [#/Vol] 3.4 10*3/uL Abnormal 0.7-3.1 [facility]; [facility] Work Phone: Lymphocytes/100 WBC (Bld) 34 % Normal [facility] Work Phone: Comment on above: PATIENT WAS FASTINGP ERFORMED BY: [place] 2269870 [facility] [id number] Information: [id number] MCH (RBC) [Entitic mass] 29.7 pg Normal 26.6-33.0 [facility] Work Phone: Comment on above: PATIENT WAS FASTINGP ERFORMED BY: TOBIN Alvarez6370 [facility] [id number] Information: [id number] MCHC (RBC) [Mass/Vol] 33.0 g/dL Normal 31.5-35.7 [facility] Work Phone: Comment on above: PATIENT WAS FASTINGP ERFORMED BY: TOBIN SongMer[facility] St[facility] Louis Ztfaaz5555 [facility] [id number] Information: [id number] MCV (RBC) [Entitic vol] 90 fL Normal 79-97 [facility] Work Phone: Comment on above: PATIENT WAS FASTINGP ERFORMED BY: TOBIN Fagan[address] [id number] Information: [id number] Monocytes (Bld) [#/Vol] 0.5 {x10E3/uL} Normal 0.1-0.9 [facility] Internal Medicine Work Phone: Comment on above: PATIENT WAS FASTINGP ERFORMED BY: TOBIN Faganlin6370 [facility] [id number] Information: [id number] Monocytes (Bld) [#/Vol] 0.5 10*3/uL Normal 0.1-0.9 [facility]; [facility] Work Phone: Monocytes/100 WBC (Bld) 5 % Normal [facility] Work Phone: Comment on above: PATIENT WAS FASTINGP ERFORMED BY: TOBIN [facility] Qsvrmp4985 [facility] [id number] Information: [id number] Neutrophils (Bld) [#/Vol] 5.9 {x10E3/uL} Normal 1.4-7.0 [facility] Work Phone: Comment on above: PATIENT WAS FASTINGP ERFORMED BY: TOBIN SongMojoseph FaganPucbin3961 [facility] [id number] Information: [id number] Neutrophils (Bld) [#/Vol] 5.9 10*3/uL Normal 1.4-7.0 [facility] Internal Medicine; [facility] Internal Medicine Work Phone: Neutrophils/100 WBC (Bld) 58 % Normal [facility] Internal Medicine Work Phone: Comment on above: PATIENT WAS FASTINGP ERFORMED BY: [place] 2269870 [facility] [id number] Information: [id number] Platelets (Bld) [#/Vol] 283 {x10E3/uL} Normal 150-379 [facility] Internal Medicine Work Phone: Comment on above: PATIENT WAS FASTINGP ERFORMED BY: TOBIN [place] 7076470 [facility] [id number] Information: [id number] Platelets (Bld) [#/Vol] 283 10*3/uL Normal 150-379 [facility] Internal Medicine; [facility] Internal Medicine Work Phone: RBC (Bld) [#/Vol] 4.91 {x10E6/uL} Normal 3.77-5.28 [facility] Internal Medicine Work Phone: Comment on above: PATIENT WAS FASTINGP ERFORMED BY: [facility]6370 [facility] [id number] Information: [id number] RBC (Bld) [#/Vol] 4.91 10*6/uL Normal 3.77-5.28 [facility] Internal Medicine; [facility] Internal Medicine Work Phone: WBC (Bld) [#/Vol] 10.1 {x10E3/uL} Normal 3.4-10.8 [facility] Internal Medicine Work Phone: Comment on above: PATIENT WAS FASTINGP ERFORMED BY: [facility] [id number] Information: [id number] WBC (Bld) [#/Vol] 10.1 10*3/uL Normal 3.4-10.8 [facility]; [facility] Work Phone: LIPID PANEL ([id number])Ordered B y: Pasteurizer on 04-29-2015 Cholesterol [Mass/Vol] 147 mg/dL Normal 100-199 [facility] Work Phone: Comment on above: PATIENT WAS FASTINGP ERFORMED BY: CB [facility] Nxqpsq9794 [address] RoadDublin [place] [id number] Cholesterol in HDL [Mass/Vol] 67 mg/dL Normal [facility] Internal Medicine Work Phone: Comment on above: According to ATP-III Guidelines, HDL-C >59 mg/dL is considered anegative risk factor for CHD. PATIENT WAS FASTINGP ERFORMED BY: CB [facility] Yfhwrh2925 [address] RoadDublin [place] [id number] Cholesterol in LDL [Mass/Vol] 67 mg/dL Normal 0-99 [facility] Medicine Work Phone: Comment on above: PATIENT WAS FASTINGP ERFORMED BY: CB [facility] Msfvac6[address] MitusDublin [place] [id number] Cholesterol in LDL/Cholesterol in HDL [Mass ratio] 1.0 {ratio_units} Normal 0.0-3.2 [facility] Work Phone: Comment on above: LDL/HDL Ratio Men Wo men 1/2 Avg.Risk 1.0 1.5 Avg.Risk 3.6 3.2 2X Avg.Risk 6.2 5.0 3X Avg.Risk 8.0 6.1 PATIENT WAS FASTINGP ERFORMED BY: CB [facility] Cjfkmz2497 [address] MitusDublin [place] [id number] Cholesterol in VLDL [Mass/Vol] 13 mg/dL Normal 5-40 [facility] Medicine Work Phone: Comment on above: PATIENT WAS FASTINGP ERFORMED BY: CB [facility] Szmaow9688 [address] RoadDublin [place] [id number] Triglyceride [Mass/Vol] 66 mg/dL Normal 0-149 C [facility] ohioensive Internal Medicine Work Phone: Comment on above: PATIENT WAS FASTINGP ERFORMED BY: TOBIN [facility] Ykguqz3967 [address] RoadDublin [place] [id number] METABOLIC PANEL, COMPREHENSI KODI ([id number])Ordered By: Pasteurizer on 04-29-2015 Albumin [Mass/Vol] 4.5 g/dL Normal 3.5-5.5 [facility] Internal Medicine Work Phone: Comment on above: PATIENT WAS FASTINGP ERFORMED BY: CB [facility] Mkopim4023 [address] RoadDublin [place] [id number] Albumin/Globulin [Mass ratio] 2.0 {ratio} Normal 1.1-2.5 [facility] Work Phone: Comment on above: PATIENT WAS FASTINGP ERFORMED BY: CB [facility] Loslmq2754 [address] RoadDublin [place] [id number] ALP [Catalytic activity/Vol] 37 [iU]/L Abnormal 39-117 [facility] Medicine Work Phone: Comment on above: PATIENT WAS FASTINGP ERFORMED BY: [facility] Zgisso9330 [address] RoadDublin [place] [id number] ALP [Catalytic activity/Vol] 37 U/L Abnormal 39-117 [facility]; [facility] Work Phone: ALT [Catalytic activity/Vol] 10 [iU]/L Normal 0-32 [facility] Medicine Work Phone: Comment on above: PATIENT WAS FASTINGP ERFORMED BY: [facility] Jyjpdb6020 [address] RoadDublin [place] [id number] ALT [Catalytic activity/Vol] 10 U/L Normal 0-32 [facility]; [facility] Work Phone: AST [Catalytic activity/Vol] 14 [iU]/L Normal 0-40 [facility] Medicine Work Phone: Comment on above: PATIENT WAS FASTINGP ERFORMED BY: CB [facility] Mwtllp9644 [address] RoadDublin [place] [id number] AST [Catalytic activity/Vol] 14 U/L Normal 0-40 [facility]; [facility] Work Phone: Bilirubin [Mass/Vol] 0.2 mg/dL Normal 0.0-1.2 [facility] rehensive Internal Medicine Work Phone: Comment on above: PATIENT WAS FASTINGP ERFORMED BY: CB [facility] Sjqlqj7376 [address] RoadDublin [place] [id number] Calcium [Mass/Vol] 9.4 mg/dL Normal 8.7-10.2 [facility] Internal Medicine Work Phone: Comment on above: PATIENT WAS FASTINGP ERFORMED BY: CB [facility] Eoyzhe3730 [address] RoadDublin [place] [id number] Chloride [Moles/Vol] 105 mmol/L Normal 97-108 [facility] Centerensive Internal Medicine Work Phone: Comment on above: PATIENT WAS FASTINGP ERFORMED BY: CB [facility] Aycpdh9035 [address] RoadDublin [place] [id number] CO2 [Moles/Vol] 23 mmol/L Normal 18-29 [facility] Internal Medicine Work Phone: Comment on above: PATIENT WAS FASTINGP ERFORMED BY: CB [facility] Vrydiz6992 [address] RoadDublin [place] [id number] Creatinine [Mass/Vol] 0.75 mg/dL Normal 0.57-1.00 [facility] Internal Medicine Work Phone: Comment on above: PATIENT WAS FASTINGP ERFORMED BY: CB [facility] Lsmyea5215 [address] RoadDublin [place] [id number] GFR/1.73 sq M predicted among blacks CKD-EPI (S/P/Bld) [Vol rate/Area] 113 mL/min/1.73 Normal [facility] Internal Medicine Work Phone: Comment on above: PATIENT WAS FASTINGP ERFORMED BY: CB [facility] Tdhvko9154 [address] RoadDublin [place] [id number] GFR/1.73 sq M predicted among non-blacks CKD-EPI (S/P/Bld) [Vol rate/Area] 98 mL/min/1.73 Normal [facility] Internal Medicine Work Phone: Comment on above: PATIENT WAS FASTINGP ERFORMED BY: CB [facility] Qngmnw2574 [address] RoadDublin [place] [id number] Globulin (S) [Mass/Vol] 2.3 g/dL Normal 1.5-4.5 [facility] Internal Medicine Work Phone: Comment on above: PATIENT WAS FASTINGP ERFORMED BY: TOBIN [facility] Iicecs5946 [address] RoadDublin [place] [id number] Glucose [Mass/Vol] 86 mg/dL Normal 65-99 [facility] Internal Medicine Work Phone: Comment on above: PATIENT WAS FASTINGP ERFORMED BY: TOBIN [facility] Unyrav3156 [address] RoadDublin [place] [id number] Potassium [Moles/Vol] 4.4 mmol/L Normal 3.5-5.2 [facility] Internal Medicine Work Phone: Comment on above: PATIENT WAS FASTINGP ERFORMED BY: TOBIN LabJudson FaganJeqjcu9673 [address] RoadDublin [place] [id number] Protein [Mass/Vol] 6.8 g/dL Normal 6.0-8.5 [facility] Internal Medicine Work Phone: Comment on above: PATIENT WAS FASTINGP ERFORMED BY: TOBIN LabCojoseph Ozpoyj9805 [address] RoadDublin [place] [id number] Sodium [Moles/Vol] 142 mmol/L Normal 134-144 [facility] Internal Medicine Work Phone: Comment on above: PATIENT WAS FASTINGP ERFORMED BY: TOBIN [facility] Xitqne0903 [address] RoadDublin [place] [id number] Urea nitrogen [Mass/Vol] 11 mg/dL Normal 6-24 [facility] Internal Medicine Work Phone: Comment on above: PATIENT WAS FASTINGP ERFORMED BY: TOBIN [facility] Lafdjy8785 [address] RoadDublin [place] [id number] Urea nitrogen/Creatinine [Mass ratio] 15 mg/mg Normal 9-23 [facility] Internal Medicine Work Phone: Comment on above: PATIENT WAS FASTINGP ERFORMED BY: TOBIN [facility] Gqnyfu1048 [address] RoadDublin [place] [id number] MICROALBUMINOrdered By: Syst em Sales Representative [employer] on 04-29-2015 Albumin DL <= 20 mg/L (U) [Mass/Vol] mg/dL Normal 0.0-17.0 [facility] Work Phone: Comment on above: PATIENT WAS FASTINGP ERFORMED BY: TOBIN [facility] Nsgguz8786 [address] RoadDublin [place] [id number] Albumin DL <= 20 mg/L (U) [Mass/Vol] mg/dL Normal 0.0-17.0 [facility]; [facility] Medicine Work Phone: Albumin/Creatinine (U) [Mass ratio] <6.3 Normal 0.0-30.0 [facility] Work Phone: Comment on above: PATIENT WAS FASTINGP ERFORMED BY: TOBIN [facility] Wcjjpt7290 [address] RoadDublin [place] [id number] Creatinine (U) [Mass/Vol] 47.3 mg/dL Normal 15.0-278.0 [facility] Medicine Work Phone: Comment on above: PATIENT WAS FASTINGP ERFORMED BY: TOBIN [facility] Dviglo9002 [address] RoadDublin [place] [id number] TSH ([id number])Ordered By: Farhade m Sales Representative [employer] on 04-29-2015 TSH Qn 1.660 {uIU/mL} Normal 0.450-4.50 0 [facility] Internal Medicine Work Phone: Comment on above: PATIENT WAS FASTINGP ERFORMED BY: TOBIN [facility] Arukzr7022 [address] RoadDublin [place] [id number] URINALYSIS, W/ MICRO ([id number]) Ordered By: Pasteurizer on 04-29-2015 Appearance (U) Clear Normal Comprehens mona Internal Medicine Work Phone: Comment on above: PATIENT WAS FASTINGP ERFORMED BY: TOBIN [facility] Wbaxuq8712 [address] RoadDublin [place] [id number] Bilirubin Ql (U) Negative Normal Comprehe nsive Internal Medicine Work Phone: Comment on above: PATIENT WAS FASTINGP ERFORMED BY: TOBIN [facility] Xkvnlx0737 [address] RoadDublin [place] [id number] Bilirubin Ql (U) Negative Normal Comprehe nsive Internal Medicine; [facility] Internal Medicine Work Phone: Color (U) Yellow Normal [facility] Medicine Work Phone: Comment on above: PATIENT WAS FASTINGP ERFORMED BY: TOBIN LabJudson FaganQwliho5277 [address] RoadDublin [place] [id number] Glucose Ql (U) Negative Normal Comprehens mnoa Internal Medicine Work Phone: Comment on above: PATIENT WAS FASTINGP ERFORMED BY: TOBIN [facility] Vzislo6135 [address] RoadDublin [place] [id number] Glucose Ql (U) Negative Normal Comprehens mona Internal Medicine; [facility] Internal Medicine Work Phone: Hemoglobin Ql (U) Negative Normal Compreh ensive Internal Medicine Work Phone: Comment on above: PATIENT WAS FASTINGP ERFORMED BY: TOBIN [facility] Yqahua9488 Jenkins RoadDuin [place] [id number] Hemoglobin Ql (U) Negative Normal Compreh ensive Internal Medicine; [facility] Internal Medicine Work Phone: Ketones Ql (U) Negative Normal Comprehens mona Internal Medicine Work Phone: Comment on above: PATIENT WAS FASTINGP ERFORMED BY: TOBIN Faganlin6370 [address] RoadDublin [place] [id number] Ketones Ql (U) Negative Normal Comprehens mona Internal Medicine; [facility] Internal Medicine Work Phone: Leukocyte esterase Test strip Ql (U) Negative Normal [facility] Medicine Work Phone: Comment on above: PATIENT WAS FASTINGP ERFORMED BY: TOBIN [facility] Ujcsmw7149 [address] RoadDublin [place] [id number] Leukocyte esterase Test strip Ql (U) Negative Normal [facility]; [facility] Medicine Work Phone: Microscopic observation LM Nom (Urine sed) MICRON Normal [facility] Medicine Work Phone: Comment on above: Microscopic follows if indicated. PATIENT WAS FASTINGP ERFORMED BY: TOBIN [facility] Sbkvag0827 [address] RoadDublin [place] [id number] Microscopic observation LM Nom (Urine sed) See below: Normal [facility] Internal Medicine Work Phone: Comment on above: Microscopic was ashley cated and was performed. PATIENT WAS FASTINGP ERFORMED BY: TOBIN LabJudson FaganEsimto6745 [address] RoadDublin [place] [id number] Nitrite Ql (U) Negative Normal Comprehens mona Internal Medicine Work Phone: Comment on above: PATIENT WAS FASTINGP ERFORMED BY: TOBIN LabJudson FaganNvaquu2509 [address] RoadDublin [place] [id number] Nitrite Ql (U) Negative Normal Comprehens mona Internal Medicine; [facility] Internal Medicine Work Phone: pH (U) 7.0 [pH] Normal 5.0-7.5 [facility] Work Phone: Comment on above: PATIENT WAS FASTINGP ERFORMED BY: TOBIN Faganlin6370 [address] RoadDublin [place] [id number] Protein Ql (U) Negative Normal Comprehens mona Internal Medicine Work Phone: Comment on above: PATIENT WAS FASTINGP ERFORMED BY: TOBIN Faganlin6370 [address] RoadDublin [place] [id number] Protein Ql (U) Negative Normal Comprehens mona Internal Medicine; [facility] Internal Medicine Work Phone: Specific gravity (U) [Rel density] 1.015 1 Normal 1.005-1.03 0 [facility] Medicine Work Phone: Comment on above: PATIENT WAS FASTINGP ERFORMED BY: TOBIN LabJudson FaganYcxtiy6384 [address] RoadDublin [place] [id number] Urobilinogen (U) [Mass/Vol] 0.2 mg/dL Normal 0.2-1.0 [facility]; [facility] Work Phone: Urobilinogen Test strip (U) [Mass/Vol] 0.2 mg/dL Normal 0.2-1.0 [facility] Work Phone: Comment on above: PATIENT WAS FASTINGP ERFORMED BY: TOBIN [facility] Iwqspi2680 [address] RoadDublin [place] [id number] CALCIFEDIOL ([id number])Ordered B y: Pasteurizer on 06-25-2014 25-Hydroxyvitamin D2+25-Hydroxyvitamin D3 [Mass/Vol] 27.2 ng/mL Abnormal 30.0-100.0 [facility] Medicine Work Phone: Comment on above: Vitamin D deficiency has been defined by the [place] ofMedicine and an Endocrine Society practice guideline as alevel of serum 25-OH vitamin D less than 20 ng/mL (1,2).The Endocrine Society went on to further define vitamin Dinsufficiency as a level between 21 and 29 ng/mL (2).1. IOM ([place] of Medicine). 2010. Dietary reference intakes for calcium and D. [place]: The National Academies Press.2. Danita MF, Bev VALENZUELA, Merry NEW, et al. Evaluation, treatment, and prevention of vitamin D deficiency: an Endocrine Society clinical practice guideline. JCEM. 2010; 96(7):1911-30. PATIENT WAS FASTINGP ERFORMED BY: [employer]70 HelpaUNC Health [id number] CBC WITH MANUAL DIFF ([id number]) Ordered By: Pasteurizer on 06-25-2014 Basophils (Bld) [#/Vol] 0.0 {x10E3/uL} Normal 0.0-0.2 [facility] Work Phone: Comment on above: PATIENT WAS FASTINGP ERFORMED BY: [employer] [facility] [id number] Information: [id number] Basophils (Bld) [#/Vol] 0.0 10*3/uL Normal 0.0-0.2 [facility]; [facility] Medicine Work Phone: Basophils/100 WBC (Bld) 0 % Normal C omprehensive Internal Medicine Work Phone: Comment on above: PATIENT WAS FASTINGP ERFORMED BY: [employer]70 [address] [facility] [id number] Information: [id number] Eosinophils (Bld) [#/Vol] 0.2 {x10E3/uL} Normal 0.0-0.4 [facility] Work Phone: Comment on above: PATIENT WAS FASTINGP ERFORMED BY: TOBIN [place] 7076470 [facility] [id number] Information: [id number] Eosinophils (Bld) [#/Vol] 0.2 10*3/uL Normal 0.0-0.4 [facility]; [facility] Work Phone: Eosinophils/100 WBC (Bld) 2 % Normal [facility] Work Phone: Comment on above: PATIENT WAS FASTINGP ERFORMED BY: [address] [id number] Information: [id number] Erythrocyte distribution width (RBC) [Ratio] 14.0 % Normal 12.3-15.4 [facility] Work Phone: Comment on above: PATIENT WAS FASTINGP ERFORMED BY: [address] [id number] Information: [id number] Hematocrit (Bld) [Volume fraction] 47.3 % Abnormal 34.0-46.6 [facility] Work Phone: Comment on above: PATIENT WAS FASTINGP ERFORMED BY: [place] 2269870 [facility] [id number] Information: [id number] Hemoglobin (Bld) [Mass/Vol] 15.4 g/dL Normal 11.1-15.9 [facility] Work Phone: Comment on above: PATIENT WAS FASTINGP ERFORMED BY: [place] 2269870 [facility] [id number] Information: [id number] Immature granulocytes (Bld) [#/Vol] 0.0 {x10E3/uL} Normal 0.0-0.1 [facility] Work Phone: Comment on above: PATIENT WAS FASTINGP ERFORMED BY: [address] [id number] Information: [id number] Immature granulocytes (Bld) [#/Vol] 0.0 10*3/uL Normal 0.0-0.1 [facility]; [facility] Work Phone: Immature granulocytes/100 WBC (Bld) 0 % Normal [facility] Work Phone: Comment on above: PATIENT WAS FASTINGP ERFORMED BY: [address] [id number] Information: [id number] Lymphocytes (Bld) [#/Vol] 2.6 {x10E3/uL} Normal 0.7-3.1 [facility] Internal Medicine Work Phone: Comment on above: PATIENT WAS FASTINGP ERFORMED BY: TOBIN [address] [id number] Information: [id number] Lymphocytes (Bld) [#/Vol] 2.6 10*3/uL Normal 0.7-3.1 [facility]; [facility] Work Phone: Lymphocytes/100 WBC (Bld) 27 % Normal [facility] Internal Medicine Work Phone: Comment on above: PATIENT WAS FASTINGP ERFORMED BY: [place] 2269870 [facility] [id number] Information: [id number] MCH (RBC) [Entitic mass] 29.0 pg Normal 26.6-33.0 [facility] Internal Medicine Work Phone: Comment on above: PATIENT WAS FASTINGP ERFORMED BY: [facility]6370 [facility] [id number] Information: [id number] MCHC (RBC) [Mass/Vol] 32.6 g/dL Normal 31.5-35.7 [facility] prehensive Internal Medicine Work Phone: Comment on above: PATIENT WAS FASTINGP ERFORMED BY: [place] 2269870 [facility] [id number] Information: [id number] MCV (RBC) [Entitic vol] 89 fL Normal 79-97 C omprehensive Internal Medicine Work Phone: Comment on above: PATIENT WAS FASTINGP ERFORMED BY: TOBIN Faganlin6370 [facility] [id number] Information: [id number] Monocytes (Bld) [#/Vol] 0.5 {x10E3/uL} Normal 0.1-0.9 [facility] Work Phone: Comment on above: PATIENT WAS FASTINGP ERFORMED BY: [address] [id number] Information: [id number] Monocytes (Bld) [#/Vol] 0.5 10*3/uL Normal 0.1-0.9 [facility]; [facility] Work Phone: Monocytes/100 WBC (Bld) 5 % Normal C omprehensive Internal Medicine Work Phone: Comment on above: PATIENT WAS FASTINGP ERFORMED BY: [address] [id number] Information: [id number] Neutrophils (Bld) [#/Vol] 6.2 {x10E3/uL} Normal 1.4-7.0 [facility] Work Phone: Comment on above: PATIENT WAS FASTINGP ERFORMED BY: [address] [id number] Information: [id number] Neutrophils (Bld) [#/Vol] 6.2 10*3/uL Normal 1.4-7.0 [facility]; [facility] Work Phone: Neutrophils/100 WBC (Bld) 66 % Normal [facility] Work Phone: Comment on above: PATIENT WAS FASTINGP ERFORMED BY: [place] 2269870 [facility] [id number] Information: [id number] Platelets (Bld) [#/Vol] 291 {x10E3/uL} Normal 150-379 [facility] Work Phone: Comment on above: PATIENT WAS FASTINGP ERFORMED BY: TOBIN Elanajoseph Pbmoll4241 [facility] [id number] Information: [id number] Platelets (Bld) [#/Vol] 291 10*3/uL Normal 150-379 [facility]; [facility] Work Phone: RBC (Bld) [#/Vol] 5.31 {x10E6/uL} Abnormal 3.77-5.28 [facility] Work Phone: Comment on above: PATIENT WAS FASTINGP ERFORMED BY: TOBIN [facility]6370 [facility] [id number] Information: [id number] RBC (Bld) [#/Vol] 5.31 10*6/uL Abnormal 3.77-5.28 [facility] Internal Medicine; [facility] Internal Medicine Work Phone: WBC (Bld) [#/Vol] 9.7 {x10E3/uL} Normal 3.4-10.8 [facility] Internal Medicine Work Phone: Comment on above: PATIENT WAS FASTINGP ERFORMED BY: TOBIN [facility]6370 [facility] [id number] Information: [id number] WBC (Bld) [#/Vol] 9.7 10*3/uL Normal 3.4-10.8 [facility] Internal Medicine; [facility] Internal Medicine Work Phone: Lipid Panel ([id number])Ordered B y: Pasteurizer on 06-25-2014 Cholesterol [Mass/Vol] 145 mg/dL Normal 100-199 Co [facility] Internal Medicine Work Phone: Comment on above: PATIENT WAS FASTINGP ERFORMED BY: [facility]6370 [facility] [id number] Cholesterol in HDL [Mass/Vol] 59 mg/dL Normal [facility] Work Phone: Comment on above: According to ATP-III Guidelines, HDL-C >59 mg/dL is considered anegative risk factor for CHD. PATIENT WAS FASTINGP ERFORMED BY: TOBIN [facility] Sorubq5987 [facility] [id number] Cholesterol in LDL [Mass/Vol] 75 mg/dL Normal 0-99 [facility] Work Phone: Comment on above: PATIENT WAS FASTINGP ERFORMED BY: [facility]6370 [facility] [id number] Cholesterol in LDL/Cholesterol in HDL [Mass ratio] 1.3 {ratio_units} Normal 0.0-3.2 [facility] Work Phone: Comment on above: LDL/HDL Ratio Men Wo men 1/2 Avg.Risk 1.0 1.5 Avg.Risk 3.6 3.2 2X Avg.Risk 6.2 5.0 3X Avg.Risk 8.0 6.1 PATIENT WAS FASTINGP ERFORMED BY: [facility]6370 [facility] [id number] Cholesterol in VLDL [Mass/Vol] 11 mg/dL Normal 5-40 [facility] Work Phone: Comment on above: PATIENT WAS FASTINGP ERFORMED BY: SoftArtHenry [facility] Hospital6370 [facility] [id number] Triglyceride [Mass/Vol] 56 mg/dL Normal 0-149 C omprehensive Internal Medicine Work Phone: Comment on above: PATIENT WAS FASTINGP ERFORMED BY: [facility] Psnshs1919 [facility] [id number] Metabolic Panel, Comprehensi ve (70096)Ordered By: Pasteurizer on 06-25-2014 Albumin [Mass/Vol] 4.7 g/dL Normal 3.5-5.5 Compre [facility] Internal Medicine Work Phone: Comment on above: PATIENT WAS FASTINGP ERFORMED BY: [facility] Wnzqhz5947 [facility] [id number] Albumin/Globulin [Mass ratio] 1.8 {ratio} Normal 1.1-2.5 [facility] Work Phone: Comment on above: PATIENT WAS FASTINGP ERFORMED BY: TOBIN Madhavi Alvarez6[address] RoadDublin [place] [id number] ALP [Catalytic activity/Vol] 41 [iU]/L Normal 39-117 [facility] Work Phone: Comment on above: PATIENT WAS FASTINGP ERFORMED BY: TOBIN LabJudson Alvarez6370 [address] RoadDublin [place] [id number] ALP [Catalytic activity/Vol] 41 U/L Normal 39-117 [facility]; [facility] Work Phone: ALT [Catalytic activity/Vol] 12 [iU]/L Normal 0-32 [facility] Work Phone: Comment on above: PATIENT WAS FASTINGP ERFORMED BY: TOBIN Elanajoseph Lstouy5716 [address] RoadDublin [place] [id number] ALT [Catalytic activity/Vol] 12 U/L Normal 0-32 [facility]; [facility] Work Phone: AST [Catalytic activity/Vol] 14 [iU]/L Normal 0-40 [facility] Work Phone: Comment on above: PATIENT WAS FASTINGP ERFORMED BY: TOBIN Madhavi Faganlin6370 [address] RoadDublin [place] [id number] AST [Catalytic activity/Vol] 14 U/L Normal 0-40 [facility]; [facility] Work Phone: Bilirubin [Mass/Vol] 0.2 mg/dL Normal 0.0-1.2 Comp [facility] ohioensive Internal Medicine Work Phone: Comment on above: PATIENT WAS FASTINGP ERFORMED BY: TOBIN [facility] Tgqcaq3147 [address] RoadDublin [place] [id number] Calcium [Mass/Vol] 9.7 mg/dL Normal 8.7-10.2 [facility] Internal Medicine Work Phone: Comment on above: PATIENT WAS FASTINGP ERFORMED BY: TOBIN [facility] Upsuft2288 [address] RoadDublin [place] [id number] Chloride [Moles/Vol] 102 mmol/L Normal 97-108 Comp rehensive Internal Medicine Work Phone: Comment on above: PATIENT WAS FASTINGP ERFORMED BY: TOBIN [facility] Izocsj9760 [address] [facility]in [place] [id number] CO2 [Moles/Vol] 22 mmol/L Normal 18-29 Comprehen [facility] Internal Medicine Work Phone: Comment on above: PATIENT WAS FASTINGP ERFORMED BY: CB [facility] Pioiql7836 [facility] [id number] Creatinine [Mass/Vol] 0.80 mg/dL Normal 0.57-1.00 [facility] Work Phone: Comment on above: PATIENT WAS FASTINGP ERFORMED BY: TOBIN [facility] Bqpngh5267 [facility] [id number] GFR/1.73 sq M predicted among blacks CKD-EPI (S/P/Bld) [Vol rate/Area] 105 mL/min/1.73 Normal [facility] Work Phone: Comment on above: PATIENT WAS FASTINGP ERFORMED BY: TOBIN [facility] Veabta2[address] [facility] [id number] GFR/1.73 sq M predicted among non-blacks CKD-EPI (S/P/Bld) [Vol rate/Area] 91 mL/min/1.73 Normal Comprehensive Internal Medicine Work Phone: Comment on above: PATIENT WAS FASTINGP ERFORMED BY: TOBIN [facility] Kwsrlq6948 [facility] [id number] Globulin (S) [Mass/Vol] 2.6 g/dL Normal 1.5-4.5 [facility] Internal Medicine Work Phone: Comment on above: PATIENT WAS FASTINGP ERFORMED BY: [facility] Fudvbv1928 [facility] [id number] Glucose [Mass/Vol] 96 mg/dL Normal 65-99 Compre [facility] Internal Medicine Work Phone: Comment on above: PATIENT WAS FASTINGP ERFORMED BY: TOBIN [facility] Vddyst4432 [address] RoadDublin [place] [id number] Potassium [Moles/Vol] 5.0 mmol/L Normal 3.5-5.2 [facility] Internal Medicine Work Phone: Comment on above: PATIENT WAS FASTINGP ERFORMED BY: TOBIN [facility] Knbzth2081 [address] RoadDublin [place] [id number] Protein [Mass/Vol] 7.3 g/dL Normal 6.0-8.5 [facility] Internal Medicine Work Phone: Comment on above: PATIENT WAS FASTINGP ERFORMED BY: TOBIN [facility] Tdeeob1374 [address] RoadDublin [place] [id number] Sodium [Moles/Vol] 141 mmol/L Normal 134-144 [facility] Internal Medicine Work Phone: Comment on above: PATIENT WAS FASTINGP ERFORMED BY: TOBIN [facility] Rtpwvl0324 [address]kn[address] RoadDublin [place] [id number] Urea nitrogen [Mass/Vol] 9 mg/dL Normal 6-24 [facility] Internal Medicine Work Phone: Comment on above: PATIENT WAS FASTINGP ERFORMED BY: [facility] Pklyck2698 [address] RoadDublin [place] [id number] Urea nitrogen/Creatinine [Mass ratio] 11 mg/mg Normal 9-23 [facility] Internal Medicine Work Phone: Comment on above: PATIENT WAS FASTINGP ERFORMED BY: [facility] Txdoee1048 Jenkins RoadDuin [place] [id number] TSH ([id number])Ordered By: Yan rosenthal Sales Representative [employer] on 06-25-2014 TSH Qn 2.590 {uIU/mL} Normal 0.450-4.50 0 [facility] Internal Medicine Work Phone: Comment on above: PATIENT WAS FASTINGP ERFORMED BY: TOBIN [facility] Ctstvd2722 [address] RoadDublin [place] [id number] Office Visit: est annualon 0 05-03-2014 General categories [Interpretation] of Cervical or vaginal smear or scraping by Cyto stain Normal Invalid Interpretation Code [facility] Rapid Flu (40258 x 2)Ordered By: Maricarmen Cordova on 02-20-2014 FLUAV Ag IA Ql (Throat) Negative Normal [facility] Internal Medicine Work Phone: FLUAV Ag IA Ql (Throat) Negative Normal [facility] Internal [facility]; [facility] Work Phone: LIPID PANEL (02192)Ordered B y: Pasteurizer on 12-28-2013 Cholesterol [Mass/Vol] 142 mg/dL Normal 100-199 Co mprehensive Internal Medicine Work Phone: Comment on above: PATIENT WAS FASTINGP ERFORMED BY: [facility] Plujyq5587 [address] [facility] [id number] Information: [id number] Cholesterol in HDL [Mass/Vol] 53 mg/dL Normal [facility] Work Phone: Comment on above: According to ATP-III Guidelines, HDL-C >59 mg/dL is considered anegative risk factor for CHD. PATIENT WAS FASTINGP ERFORMED BY: [facility] Olfbyo7224 [address] [facility] [id number] Information: [id number] Cholesterol in LDL [Mass/Vol] 53 mg/dL Normal 0-99 [facility] Work Phone: Comment on above: PATIENT WAS FASTINGP ERFORMED BY: [facility] Mbjhzs3194 [address] [facility] [id number] Information: [id number] Cholesterol in LDL/Cholesterol in HDL [Mass ratio] 1.0 {ratio_units} Normal 0.0-3.2 [facility] Work Phone: Comment on above: PATIENT WAS FASTINGP ERFORMED BY: [facility] Ovxxmn7431 [address] [facility] [id number] Information: [id number],[id number] Cholesterol in VLDL [Mass/Vol] 36 mg/dL Normal 5-40 [facility] Work Phone: Comment on above: PATIENT WAS FASTINGP ERFORMED BY: [facility] Lazmur7143 [address] [facility] [id number] Information: [id number] Triglyceride [Mass/Vol] 180 mg/dL Abnormal 0-149 C [facility]mpking[facility] ohioensive Internal Medicine Work Phone: Comment on above: PATIENT WAS FASTINGP ERFORMED BY: TOBIN NohemiJudson Wpdair4911 [facility] [id number] Information: [id number] TSH (72885)Ordered By: Yan m Sales Representative [employer] on 12-28-2013 TSH Qn 1.940 {uIU/mL} Normal 0.450-4.50 0 [facility] Work Phone: Comment on above: PATIENT WAS FASTINGP ERFORMED BY: TOBIN [facility] Kqabwx8455 [facility] [id number] LIPID PANEL (74737)Ordered B y: Pasteurizer on 05-02-2013 Cholesterol [Mass/Vol] 181 mg/dL Normal 100-199 Co [facility] hospitalensive Internal [facility] Work Phone: Comment on above: PATIENT WAS FASTINGP ERFORMED BY: TOBIN [facility] Mybuot2505 [facility] [id number] Information: 386147,[id number] Cholesterol in HDL [Mass/Vol] 51 mg/dL Normal [facility] Work Phone: Comment on above: According to ATP-III Guidelines, HDL-C >59 mg/dL is considered anegative risk factor for CHD. PATIENT WAS FASTINGP ERFORMED BY: TOBIN [facility]6370 [facility] [id number] Information: [id number] Cholesterol in LDL [Mass/Vol] 98 mg/dL Normal 0-99 [facility] Work Phone: Comment on above: PATIENT WAS FASTINGP ERFORMED BY: TOBIN [facility]Henry [facility]6370 [facility] [id number] Information: 623767,[id number] Cholesterol in LDL/Cholesterol in HDL [Mass ratio] 1.9 {ratio_units} Normal 0.0-3.2 [facility] Work Phone: Comment on above: PATIENT WAS FASTINGP ERFORMED BY: CB LabJohn Ville 4708170 [facility] [id number] Information: 522954,[id number] Cholesterol in VLDL [Mass/Vol] 32 mg/dL Normal 5-40 [facility] Work Phone: Comment on above: PATIENT WAS FASTINGP ERFORMED BY: TOBIN Huitron Harhlh9148 [facility] [id number] Information: [id number] Triglyceride [Mass/Vol] 160 mg/dL Abnormal 0-149 [facility] Work Phone: Comment on above: PATIENT WAS FASTINGP ERFORMED BY: TOBIN Huitron Cebwbl1054 [facility] [id number] Information: 085401,[id number] LIPID PANEL (67137)Ordered B y: Pasteurizer on 09-08-2012 Cholesterol [Mass/Vol] 132 mg/dL Normal 100-199 Co [facility] Internal Medicine Work Phone: Comment on above: PATIENT WAS FASTINGP ERFORMED BY: TOBIN Huitron Nerels4350 [facility] [id number] Information: 068034,[id number] Cholesterol in HDL [Mass/Vol] 56 mg/dL Normal [facility] Work Phone: Comment on above: According to ATP-III Guidelines, HDL-C >59 mg/dL is considered anegative risk factor for CHD. PATIENT WAS FASTINGP ERFORMED BY: TOBIN HuitronGreystone Park Psychiatric HospitalVoeeev6743 [facility] [id number] Information: 707443,[id number] Cholesterol in LDL [Mass/Vol] 54 mg/dL Normal 0-99 [facility] Work Phone: Comment on above: PATIENT WAS FASTINGP ERFORMED BY: TOBIN [facility] Cbyypg4652 [facility] [id number] Information: [id number],[id number] Cholesterol in LDL/Cholesterol in HDL [Mass ratio] 1.0 {ratio_units} Normal 0.0-3.2 [facility] Work Phone: Comment on above: PATIENT WAS FASTINGP ERFORMED BY: [facility]6370 [facility] [id number] Information: [id number],[id number] Cholesterol in VLDL [Mass/Vol] 22 mg/dL Normal 5-40 [facility] Work Phone: Comment on above: PATIENT WAS FASTINGP ERFORMED BY: [place] 2269870 [facility] [id number] Information: 339145,[id number] Triglyceride [Mass/Vol] 112 mg/dL Normal 0-149 [facility] Internal Medicine Work Phone: Comment on above: PATIENT WAS FASTINGP ERFORMED BY: [place] [id number] [facility] [id number] Information: 766773,G29686 Influenza A&B Viral Culture (44346)Ordered By: Pasteurizer on 06-01-2012 FLUV identified Org specific cx Nom (Unsp spec) FLUABN Normal [facility] Work Phone: Comment on above: Negative:No Influenz a A or B detected. PATIENT NOT FASTINGP ERFORMED BY: [place] [id number] [facility] [id number] Information: SRC:NOS T07600 Rapid Flu (29311 x 2)on 05-04 FLUAV Ag IA Ql (Throat) Negative Normal [facility] Internal Medicine Work Phone: FLUAV Ag IA Ql (Throat) Negative Normal [facility] Internal Medicine; [facility] Work Phone: HEPATIC FUNCTION PANEL (8007 6)Ordered By: Pasteurizer on 04-27-2012 Albumin [Mass/Vol] 4.5 g/dL Normal 3.5-5.5 Compre [facility] Internal Medicine Work Phone: Comment on above: PATIENT WAS FASTINGP ERFORMED BY: [facility]6370 [facility] [id number] Information: [id number] ALP [Catalytic activity/Vol] 44 [iU]/L Normal 25-150 [facility] Work Phone: Comment on above: PATIENT WAS FASTINGP ERFORMED BY: TOBIN [facility] Tjjbwo1165 [address] [facility] [id number] Information: 311304,R21403 ALP [Catalytic activity/Vol] 44 U/L Normal 25-150 [facility]; [facility] Work Phone: ALT [Catalytic activity/Vol] 9 [iU]/L Normal 0-32 [facility] Work Phone: Comment on above: PATIENT WAS FASTINGP ERFORMED BY: LabHenry [facility] Hospital6370 [facility] [id number] Information: [id number],[id number] ALT [Catalytic activity/Vol] 9 U/L Normal 0-32 [facility]; [facility] Work Phone: AST [Catalytic activity/Vol] 12 [iU]/L Normal 0-40 [facility] Work Phone: Comment on above: PATIENT WAS FASTINGP ERFORMED BY: [facility]6370 [facility] [id number] Information: [id number] AST [Catalytic activity/Vol] 12 U/L Normal 0-40 [facility]; [facility] Work Phone: Bilirubin [Mass/Vol] 0.2 mg/dL Normal 0.0-1.2 Comp [facility] Internal Medicine Work Phone: Comment on above: PATIENT WAS FASTINGP ERFORMED BY: LabCoGreystone Park Psychiatric HospitalKygttg9216 [facility] [id number] Information: 646920,G58581 Bilirubin.direct [Mass/Vol] 0.05 mg/dL Normal 0.00-0.40 [facility] Work Phone: Comment on above: PATIENT WAS FASTINGP ERFORMED BY: [facility] Srzgrj6641 [facility] [id number] Information: 424953,[id number] Protein [Mass/Vol] 7.2 g/dL Normal 6.0-8.5 [facility] Internal Medicine Work Phone: Comment on above: PATIENT WAS FASTINGP ERFORMED BY: TOBIN NohemiJudson FaganPuzyll7453 [address] [facility] Childrenblin [place] [id number] Information: 078724,S85161 LIPID PANEL (12101)Ordered B y: Pasteurizer on 04-27-2012 Cholesterol [Mass/Vol] 166 mg/dL Normal 100-199 Co [facility] Internal Medicine Work Phone: Comment on above: PATIENT WAS FASTINGP ERFORMED BY: TOBIN Faganlin6370 [address] RoadDublin [place] [id number] Cholesterol in HDL [Mass/Vol] 55 mg/dL Normal [facility] Work Phone: Comment on above: According to ATP-III Guidelines, HDL-C >59 mg/dL is considered anegative risk factor for CHD. PATIENT WAS FASTINGP ERFORMED BY: TOBIN Faganlin6370 Jenkins [facility]in [place] [id number] Cholesterol in LDL [Mass/Vol] 87 mg/dL Normal 0-99 [facility] Work Phone: Comment on above: PATIENT WAS FASTINGP ERFORMED BY: TOBIN Faganlin6370 [address] [facility] [id number] Cholesterol in LDL/Cholesterol in HDL [Mass ratio] 1.6 {ratio_units} Normal 0.0-3.2 [facility] Work Phone: Comment on above: PATIENT WAS FASTINGP ERFORMED BY: TOBIN LabJudson FagnaBdtget9938 [address] [facility]in [place] [id number] Cholesterol in VLDL [Mass/Vol] 24 mg/dL Normal 5-40 [facility] Work Phone: Comment on above: PATIENT WAS FASTINGP ERFORMED BY: TOBIN LabJudson Swxmmj1761 [address] [facility] HospitalD[facility] [place] [id number] Triglyceride [Mass/Vol] 120 mg/dL Normal 0-149 C [facility] Internal Medicine Work Phone: Comment on above: PATIENT WAS FASTINGP ERFORMED BY: TOBIN LabJudson Hwtxrn0125 Jenkins [facility] [place] [id number] HEPATIC FUNCTION PANEL (8007 6)Ordered By: Pasteurizer on 01-15-2012 Bilirubin.direct [Mass/Vol] 0.14 mg/dL Normal 0.00-0.40 [facility] Work Phone: Comment on above: PATIENT NOT FASTINGP ERFORMED BY: TOBIN [facility] Jssfhz4895 [address] RoadDublin [place] [id number] Lipid Panel (59840)Ordered B y: Pasteurizer on 01-15-2012 Cholesterol [Mass/Vol] 128 mg/dL Normal 100-199 [facility] Internal Medicine Work Phone: Comment on above: Please note refere nce interval change PATIENT NOT FASTINGP ERFORMED BY: TOBIN Faganlin6370 [address] RoadDublin [place] [id number] Cholesterol in HDL [Mass/Vol] 52 mg/dL Normal [facility] Work Phone: Comment on above: According to ATP-III Guidelines, HDL-C >59 mg/dL is considered anegative risk factor for CHD. PATIENT NOT FASTINGP ERFORMED BY: TOBIN [facility] Shzqpy5727 [address] RoadDublin [place] [id number] Cholesterol in LDL [Mass/Vol] 57 mg/dL Normal 0-99 [facility] Work Phone: Comment on above: Please note refere nce interval change PATIENT NOT FASTINGP ERFORMED BY: TOBIN [facility] Eiolvy0275 [address] [facility] HospitalDublin [place] [id number] Cholesterol in LDL/Cholesterol in HDL [Mass ratio] 1.1 {ratio_units} Normal 0.0-3.2 [facility] Work Phone: Comment on above: PATIENT NOT FASTINGP ERFORMED BY: CB [facility] Tbwopt6437 [address] RoadDublin [place] [id number] Cholesterol in VLDL [Mass/Vol] 19 mg/dL Normal 5-40 [facility] Medicine Work Phone: Comment on above: PATIENT NOT FASTINGP ERFORMED BY: TOBIN [facility] Vszdnd6007 [address] RoadDublin [place] [id number] Triglyceride [Mass/Vol] 94 mg/dL Normal 0-149 C [facility] Internal Medicine Work Phone: Comment on above: Please note refere nce interval change PATIENT NOT FASTINGP ERFORMED BY: TOBIN LabCojoseph FaganHhubyj0616 [facility] [id number] Metabolic Panel, Comprehensi ve (27841)Ordered By: Pasteurizer on 01-15-2012 Albumin [Mass/Vol] 4.6 g/dL Normal 3.5-5.5 [facility] Internal Medicine Work Phone: Comment on above: PATIENT NOT FASTINGP ERFORMED BY: TOBIN [facility] Uzocuy3631 [facility] [id number] Information: [id number] Albumin/Globulin [Mass ratio] 1.8 {ratio} Normal 1.1-2.5 [facility] Work Phone: Comment on above: PATIENT NOT FASTINGP ERFORMED BY: TOBIN [facility] Rvtcbc4745 [facility] [id number] Information: [id number] ALP [Catalytic activity/Vol] 39 [iU]/L Normal 25-150 [facility] Work Phone: Comment on above: PATIENT NOT FASTINGP ERFORMED BY: TOBIN [facility] Gqcbtq4021 [facility] [id number] Information: 784536,[id number] ALP [Catalytic activity/Vol] 39 U/L Normal 25-150 [facility]; [facility] Work Phone: ALT [Catalytic activity/Vol] 6 [iU]/L Normal 0-40 [facility] Work Phone: Comment on above: PATIENT NOT FASTINGP ERFORMED BY: CB [facility] Wvhjic8226 [facility] [id number] Information: 523555,[id number] ALT [Catalytic activity/Vol] 6 U/L Normal 0-40 [facility]; [facility] Work Phone: AST [Catalytic activity/Vol] 11 [iU]/L Normal 0-40 [facility] Work Phone: Comment on above: PATIENT NOT FASTINGP ERFORMED BY: TOBIN [facility] Wbnobs3236 [address] [facility] Centerin [place] [id number] Information: [id number] AST [Catalytic activity/Vol] 11 U/L Normal 0-40 [facility]; [facility] Internal Medicine Work Phone: Bilirubin [Mass/Vol] 0.4 mg/dL Normal 0.0-1.2 [facility]erensive Internal Medicine Work Phone: Comment on above: PATIENT NOT FASTINGP ERFORMED BY: CB [facility] Kttzqv1385 [address] [facility] [id number] Information: 467582,D32123 Calcium [Mass/Vol] 9.5 mg/dL Normal 8.7-10.2 [facility] Internal Medicine Work Phone: Comment on above: PATIENT NOT FASTINGP ERFORMED BY: CB [facility] Htuego3047 [address] [facility] [id number] Information: 028444,[id number] Chloride [Moles/Vol] 103 mmol/L Normal 97-108 [facility] Internal Medicine Work Phone: Comment on above: PATIENT NOT FASTINGP ERFORMED BY: CB [facility] Lkmtva2149 [address] [facility] [id number] Information: 374191,[id number] CO2 [Moles/Vol] 21 mmol/L Normal 20-32 [facility] Internal [facility] Work Phone: Comment on above: PATIENT NOT FASTINGP ERFORMED BY: CB [facility] Bfpzuc8721 [address] [facility] [id number] Information: [id number],[id number] Creatinine [Mass/Vol] 0.76 mg/dL Normal 0.57-1.00 [facility] Work Phone: Comment on above: PATIENT NOT FASTINGP ERFORMED BY: CB [facility] Tfrqpa6886 [address] [facility] [id number] Information: 025373,[id number] GFR/1.73 sq M predicted among blacks CKD-EPI (S/P/Bld) [Vol rate/Area] 114 mL/min/1.73 Normal [facility] Work Phone: Comment on above: PATIENT NOT FASTINGP ERFORMED BY: TOBIN [facility] Znjwby4852 Jenkins RoadWakemed North Hospitalin [place] [id number] Information: 641988,[id number] GFR/1.73 sq M predicted among non-blacks CKD-EPI (S/P/Bld) [Vol rate/Area] 99 mL/min/1.73 Normal [facility] Work Phone: Comment on above: PATIENT NOT FASTINGP ERFORMED BY: TOBIN [facility] Ycgkjd8317 [facility] [id number] Information: 696215,Z52717 Globulin (S) [Mass/Vol] 2.6 g/dL Normal 1.5-4.5 [facility] Work Phone: Comment on above: PATIENT NOT FASTINGP ERFORMED BY: TOBIN [facility] Zixnng0961 [facility] [id number] Information: 444058,[id number] Glucose [Mass/Vol] 86 mg/dL Normal 65-99 [facility] Internal Medicine Work Phone: Comment on above: PATIENT NOT FASTINGP ERFORMED BY: [facility] Wentdp2754 [facility] [id number] Information: 697139,Z19434 Potassium [Moles/Vol] 4.2 mmol/L Normal 3.5-5.2 [facility] Internal Medicine Work Phone: Comment on above: PATIENT NOT FASTINGP ERFORMED BY: [facility] Zkhkov6008 [facility] [id number] Information: [id number] Protein [Mass/Vol] 7.2 g/dL Normal 6.0-8.5 [facility] Internal Medicine Work Phone: Comment on above: PATIENT NOT FASTINGP ERFORMED BY: CB [facility] Cxubaw6363 [facility] [id number] Information: 023052,K75115 Sodium [Moles/Vol] 139 mmol/L Normal 134-144 Compre hensive Internal Medicine Work Phone: Comment on above: PATIENT NOT FASTINGP ERFORMED BY: [facility] Wptmsy0127 [facility] [id number] Information: [id number],[id number] Urea nitrogen [Mass/Vol] 11 mg/dL Normal 6-20 [facility] Work Phone: Comment on above: PATIENT NOT FASTINGP ERFORMED BY: [facility] Vcptxv0068 [facility] [id number] Information: [id number],[id number] Urea nitrogen/Creatinine [Mass ratio] 14 mg/mg Normal 8-20 [facility] Work Phone: Comment on above: PATIENT NOT FASTINGP ERFORMED BY: [facility] Tbenjx5075 [facility] [id number] Information: [id number],[id number] TSH (59601)Ordered By: Yan rosenthal Sales Representative [employer] on 01-15-2012 TSH Qn 2.130 {uIU/mL} Normal 0.450-4.50 0 [facility] Work Phone: Comment on above: PATIENT NOT FASTINGP ERFORMED BY: [facility] Wcqgjq5796 [facility] [id number] Rapid Strep Test, Office (16 209)Ordered By: Cyndy Krishnamurthy on 08-26-2011 S. pyogenes Ag EIA Ql (Throat) Negative Normal [facility]; [facility] Work Phone: S. pyogenes Ag IA Ql (Unsp spec) Negative Normal [facility] Work Phone: Urinalysis, Office (02515)on 12-01-2010 Bilirubin Ql (U) Negative Normal Comprehe [...] [facility] Work Phone: Lipid Panel (51643)Ordered B y: Pasteurizer on 06-02-2010 Cholesterol [Mass/Vol] 150 mg/dL Normal 100-199 [facility] Work Phone: Comment on above: PATIENT WAS FASTINGP ERFORMED BY: LabCoGreystone Park Psychiatric HospitalYpqpru7349 [facility] [id number] Cholesterol in HDL [Mass/Vol] 55 mg/dL Normal [facility] Work Phone: Comment on above: According to ATP-III Guidelines, HDL-C >59 mg/dL is considered anegative risk factor for CHD. PATIENT WAS FASTINGP ERFORMED BY: TOBIN LabTucker Bzpdzz7679 [facility] [id number] Cholesterol in LDL [Mass/Vol] 68 mg/dL Normal 0-99 [facility] Work Phone: Comment on above: PATIENT WAS FASTINGP ERFORMED BY: LabTucker Mhtygq3848 [facility] [id number] Cholesterol in LDL/Cholesterol in HDL [Mass ratio] 1.2 {ratio_units} Normal 0.0-3.2 [facility] Work Phone: Comment on above: PATIENT WAS FASTINGP ERFORMED BY: TOBIN Huitron Bmpelv6259 [facility] [id number] Cholesterol in VLDL [Mass/Vol] 27 mg/dL Normal 5-40 [facility] Work Phone: Comment on above: PATIENT WAS FASTINGP ERFORMED BY: TOBIN Huitron Ycnqpl8520 [facility] [id number] Triglyceride [Mass/Vol] 133 mg/dL Normal 0-149 C omprehensive Internal Medicine Work Phone: Comment on above: PATIENT WAS FASTINGP ERFORMED BY: TOBIN Huitron Pqtsib1727 [facility] [id number] Metabolic Panel, Comprehensi ve (81214)Ordered By: Pasteurizer on 06-02-2010 Albumin [Mass/Vol] 4.3 g/dL Normal 3.5-5.5 [facility] Internal Medicine Work Phone: Comment on above: PATIENT WAS FASTINGP ERFORMED BY: LabHenry [facility]6370 [facility] [id number] Information: [id number],[id number] Albumin/Globulin [Mass ratio] 1.5 {ratio} Normal 1.1-2.5 [facility] Work Phone: Comment on above: PATIENT WAS FASTINGP ERFORMED BY: LabCoGreystone Park Psychiatric HospitalRyhxhs3769 [facility] [id number] Information: [id number],[id number] ALP [Catalytic activity/Vol] 36 [iU]/L Normal 25-150 [facility] Work Phone: Comment on above: PATIENT WAS FASTINGP ERFORMED BY: TOBIN Madhavi Alvarez6370 [address] [facility] [id number] Information: 982675,[id number] ALP [Catalytic activity/Vol] 36 U/L Normal 25-150 [facility]; [facility] Work Phone: ALT [Catalytic activity/Vol] 13 [iU]/L Normal 0-40 [facility] Work Phone: Comment on above: PATIENT WAS FASTINGP ERFORMED BY: TOBIN [facility] Pnpdkw5735 [facility] [id number] Information: [id number] ALT [Catalytic activity/Vol] 13 U/L Normal 0-40 [facility]; [facility] Work Phone: AST [Catalytic activity/Vol] 19 [iU]/L Normal 0-40 [facility] Work Phone: Comment on above: PATIENT WAS FASTINGP ERFORMED BY: TOBIN [facility]Mer[facility] Tnopxm6265 [facility] [id number] Information: [id number] AST [Catalytic activity/Vol] 19 U/L Normal 0-40 [facility]; [facility] Work Phone: Bilirubin [Mass/Vol] 0.2 mg/dL Normal 0.0-1.2 Comp [facility] ohioensive Internal Medicine Work Phone: Comment on above: PATIENT WAS FASTINGP ERFORMED BY: TOBIN [place] 7076470 [facility] [id number] Information: [id number] Calcium [Mass/Vol] 9.3 mg/dL Normal 8.7-10.2 [facility] Internal Medicine Work Phone: Comment on above: PATIENT WAS FASTINGP ERFORMED BY: TOBIN LabJohn Ville [id number] [facility] [id number] Information: 150410,[id number] Chloride [Moles/Vol] 106 mmol/L Normal 97-108 [facility] rehensive Internal Medicine Work Phone: Comment on above: PATIENT WAS FASTINGP ERFORMED BY: TOBIN LabCo Esojwx4898 [facility] [id number] Information: [id number] CO2 [Moles/Vol] 23 mmol/L Normal 20-32 Comprehen [facility] Internal Medicine Work Phone: Comment on above: PATIENT WAS FASTINGP ERFORMED BY: LabCoGreystone Park Psychiatric HospitalLirtfh7915 [facility] [id number] Information: 118956,V39144 Creatinine [Mass/Vol] 0.94 mg/dL Normal 0.57-1.00 [facility] Work Phone: Comment on above: PATIENT WAS FASTINGP ERFORMED BY: LabCoJanice Ville 8890570 [facility] [id number] Information: 153974,A79796 GFR/1.73 sq M predicted among blacks MDRD (S/P/Bld) [Vol rate/Area] mL/min/{1.73_m2} Normal [facility] Work Phone: Comment on above: Note: Persistent red uction for 3 months or more in an eGFR<60 mL/min/1.73 m2 defines CKD. Patients with eGFR values>/=60 mL/min/1.73 m2 may also have CKD if evidence of persistentproteinuria is present. Additional information may be found [email or web address]. PATIENT WAS FASTINGP ERFORMED BY: LabCoGreystone Park Psychiatric HospitalJgxvkm3302 [facility] [id number] Information: 935843,I52772 GFR/1.73 sq M.predicted MDRD (S/P/Bld) [Vol rate/Area] mL/min/{1.73_m2} Normal [facility] Work Phone: Comment on above: PATIENT WAS FASTINGP ERFORMED BY: LabCo Piezpj0866 [facility] [id number] Information: 436085,R60427 Globulin (S) [Mass/Vol] 2.8 g/dL Normal 1.5-4.5 [facility] Internal Medicine Work Phone: Comment on above: PATIENT WAS FASTINGP ERFORMED BY: TOBIN [facility]6370 [facility] [id number] Information: 973616,[id number] Glucose [Mass/Vol] 87 mg/dL Normal 65-99 [facility] Internal Medicine Work Phone: Comment on above: PATIENT WAS FASTINGP ERFORMED BY: TOBIN [facility]6370 [facility] [id number] Information: 440543,[id number] Potassium [Moles/Vol] 4.0 mmol/L Normal 3.5-5.2 [facility] Internal Medicine Work Phone: Comment on above: PATIENT WAS FASTINGP ERFORMED BY: TOBIN [facility]6370 [facility] [id number] Information: 570044,[id number] Protein [Mass/Vol] 7.1 g/dL Normal 6.0-8.5 [facility] Internal Medicine Work Phone: Comment on above: PATIENT WAS FASTINGP ERFORMED BY: TOBIN [facility]6370 [facility] [id number] Information: 417314,N10606 Sodium [Moles/Vol] 142 mmol/L Normal 135-145 [facility] Internal Medicine Work Phone: Comment on above: PATIENT WAS FASTINGP ERFORMED BY: [facility]Henry [facility]6370 [facility] [id number] Information: 772893,R94302 Urea nitrogen [Mass/Vol] 8 mg/dL Normal 6-20 [facility] Work Phone: Comment on above: PATIENT WAS FASTINGP ERFORMED BY: LabHenry [facility] Hospital6370 [facility] [id number] Information: 385458,A87289 Urea nitrogen/Creatinine [Mass ratio] 9 mg/mg Normal 8-20 [facility] Work Phone: Comment on above: PATIENT WAS FASTINGP ERFORMED BY: TOBIN NohemiJudson FaganYdsigi6142 [facility] [id number] Information: [id number] URINE RANGEL CULTURE-ALEXANDRE COL C OUNT (76410)Ordered By: Pasteurizer on 04-15-2010 Bacteria identified Cx Nom (U) Escherichia coli Normal [facility] Work Phone: Comment on above: Greater than 100,000 colony forming units per mL PATIENT NOT FASTINGP ERFORMED BY: TOBIN LabBreak30joseph Ifbhdz2146 [facility] [id number] Information: SRC:UR G18346 Bacteria identified Cx Nom (U) Final report Normal [facility] Work Phone: Comment on above: PATIENT NOT FASTINGP ERFORMED BY: TOBIN LabCo Htvpil7684 [facility] [id number] Information: SRC:UR R11786 Other Antibiotic [Susc] MIHEAD Normal C omprehensive Internal Medicine Work Phone: Comment on above: S = Susceptibl e; I = Intermediate; R = Resistant P = Positive; N = Negative MICS are expressed in micrograms per mL Antibiotic RSLT#1 RSLT#2 RSLT#3 RSLT#4Amikacin SAmoxicillin/Clavulanic Acid SAmpicillin SCefazolin SCefepime SCefoxitin SCeftriaxone SCiprofloxacin SESBL NErtapenem SGentamicin SImipenem SLevofloxacin SNitrofurantoin STobramycin STrimethoprim/Sulfa S PATIENT NOT FASTINGP ERFORMED BY: TOBIN [place] Xdqfaq1216 [facility] [id number] Information: SRC:UR O82352 Urinalysis, Office (02007)Or dered By: [place] on 04-15-2010 Bilirubin [...] Medicine Work Phone: METABOLIC PANEL, COMPREHENSI VE (64844)Ordered By: Pasteurizer on 01-13-2010 Albumin [Mass/Vol] 3.9 g/dL Normal 3.5-5.5 Compre hensive Internal Medicine Work Phone: Comment on above: PATIENT NOT FASTINGP ERFORMED BY: [facility] Mbvoel8282 [facility] [id number] Information: 268011,[id number] Albumin/Globulin [Mass ratio] 1.8 {ratio} Normal 1.1-2.5 [facility] Work Phone: Comment on above: PATIENT NOT FASTINGP ERFORMED BY: TOBIN Alvarez6370 [facility] [id number] Information: 015846,P51769 ALP [Catalytic activity/Vol] 33 [iU]/L Normal 25-150 [facility] Work Phone: Comment on above: PATIENT NOT FASTINGP ERFORMED BY: TOBIN Faganlin6370 [facility] [id number] Information: 221418,[id number] ALP [Catalytic activity/Vol] 33 U/L Normal 25-150 [facility]; [facility] Work Phone: ALT [Catalytic activity/Vol] 15 [iU]/L Normal 0-40 [facility] Work Phone: Comment on above: PATIENT NOT FASTINGP ERFORMED BY: TOBIN Faganlin6370 [facility] [id number] Information: 326115,[id number] ALT [Catalytic activity/Vol] 15 U/L Normal 0-40 [facility]; [facility] Work Phone: AST [Catalytic activity/Vol] 22 [iU]/L Normal 0-40 [facility] Work Phone: Comment on above: PATIENT NOT FASTINGP ERFORMED BY: TOBIN Faganlin6370 [facility] [id number] Information: 606646,[id number] AST [Catalytic activity/Vol] 22 U/L Normal 0-40 [facility]; [facility] Work Phone: Bilirubin [Mass/Vol] 0.2 mg/dL Normal 0.0-1.2 Comp rehensive Internal Medicine Work Phone: Comment on above: PATIENT NOT FASTINGP ERFORMED BY: TOBIN Faganlin6370 [facility] [id number] Information: 156442,T07525 Calcium [Mass/Vol] 9.1 mg/dL Normal 8.7-10.2 [facility] Internal Medicine Work Phone: Comment on above: PATIENT NOT FASTINGP ERFORMED BY: TOBIN [facility] Rgscdv5716 [facility] [id number] Information: 913378,[id number] Chloride [Moles/Vol] 104 mmol/L Normal 97-108 [facility]erens[facility] Internal [facility] Work Phone: Comment on above: PATIENT NOT FASTINGP ERFORMED BY: CB [facility] Wralcb8829 [facility] [id number] Information: 763840,V28078 CO2 [Moles/Vol] 23 mmol/L Normal 20-32 [facility] Internal Medicine Work Phone: Comment on above: PATIENT NOT FASTINGP ERFORMED BY: CB [facility] Ylkxav9270 [facility] [id number] Information: 096194,[id number] Creatinine [Mass/Vol] 0.78 mg/dL Normal 0.57-1.00 [facility] Work Phone: Comment on above: PATIENT NOT FASTINGP ERFORMED BY: CB LabCo Ouakob0007 [facility] [id number] Information: 741168,I63220 GFR/1.73 sq M predicted among blacks MDRD [...] PATIENT NOT FASTINGP ERFORMED BY: CB [facility] Glwhnk0975 [facility] [id number] Information: 917877,O61845 GFR/1.73 sq M.predicted MDRD (S/P/Bld) [Vol rate/Area] mL/min/{1.73_m2} Normal [facility] Work Phone: Comment on above: PATIENT NOT FASTINGP ERFORMED BY: TOBIN Huitron Kmlmbh5642 [facility] [id number] Information: 807952,T65897 Globulin (S) [Mass/Vol] 2.2 g/dL Normal 1.5-4.5 [facility] Internal Medicine Work Phone: Comment on above: PATIENT NOT FASTINGP ERFORMED BY: TOBIN HuitronJanice Ville 8890570 [facility] [id number] Information: 505461,O83433 Glucose [Mass/Vol] 71 mg/dL Normal 65-99 [facility] Internal Medicine Work Phone: Comment on above: PATIENT NOT FASTINGP ERFORMED BY: TOBIN Huitron Ychyzh4747 [facility] [id number] Information: 676502,D07278 Potassium [Moles/Vol] 4.3 mmol/L Normal 3.5-5.2 [facility] Internal Medicine Work Phone: Comment on above: PATIENT NOT FASTINGP ERFORMED BY: ElanaJanice Ville 8890570 [facility] [id number] Information: 898075,I81106 Protein [Mass/Vol] 6.1 g/dL Normal 6.0-8.5 [facility] Internal Medicine Work Phone: Comment on above: PATIENT NOT FASTINGP ERFORMED BY: NohemiJohn Ville 4708170 [facility] [id number] Information: 400308,L69017 Sodium [Moles/Vol] 139 mmol/L Normal 135-145 [facility] Internal Medicine Work Phone: Comment on above: PATIENT NOT FASTINGP ERFORMED BY: TOBIN Huitron Ubgkgl7781 [facility] [id number] Information: 655892,P21877 Urea nitrogen [Mass/Vol] 7 mg/dL Normal 5-26 [facility] Work Phone: Comment on above: PATIENT NOT FASTINGP ERFORMED BY: TOBIN Alvarez6370 [facility] [id number] Information: 267766,X42385 Urea nitrogen/Creatinine [Mass ratio] 9 mg/mg Normal 8-27 [facility] Work Phone: Comment on above: PATIENT NOT FASTINGP ERFORMED BY: TOBIN Huitron Jsukou9115 [facility] [id number] Information: 497441,X92123 LIPID PANEL (07918)Ordered B y: Pasteurizer on 11-01-2009 Cholesterol [Mass/Vol] 136 mg/dL Normal 100-199 [facility] Internal Medicine Work Phone: Comment on above: PATIENT NOT FASTINGP ERFORMED BY: TOBIN Faganlin6370 [facility] [id number] Information: ADD M18064 AND DRAW FEE 99 6660 Cholesterol in HDL [Mass/Vol] 47 mg/dL Normal [facility] Work Phone: Comment on above: According to ATP-III Guidelines, HDL-C >59 mg/dL is considered anegative risk factor for CHD. PATIENT NOT FASTINGP ERFORMED BY: TOBIN Alvarez6370 [facility] [id number] Information: ADD W64334 AND DRAW FEE 99 6660 Cholesterol in LDL [Mass/Vol] 61 mg/dL Normal 0-99 [facility] Work Phone: Comment on above: PATIENT NOT FASTINGP ERFORMED BY: TOBIN Huitrno Nazaix5298 [facility] [id number] Information: ADD Q13194 AND DRAW FEE 99 6660 Cholesterol in LDL/Cholesterol in HDL [Mass ratio] 1.3 {ratio_units} Normal 0.0-3.2 [facility] Work Phone: Comment on above: PATIENT NOT FASTINGP ERFORMED BY: TOBIN Huitron Jmiaac2101 [facility] [id number] Information: ADD L58301 AND DRAW FEE 99 6660 Cholesterol in VLDL [Mass/Vol] 28 mg/dL Normal 5-40 [facility] Work Phone: Comment on above: PATIENT NOT FASTINGP ERFORMED BY: TOBIN [facility] Umalys8726 Jenkins Roadblin [place] [id number] Information: ADD N52414 AND DRAW FEE 99 6660 Triglyceride [Mass/Vol] 141 mg/dL Normal 0-149 C omprehensive Internal Medicine Work Phone: Comment on above: PATIENT NOT FASTINGP ERFORMED BY: CB [facility] Balcxi3069 Jenkins Roadblin [place] [id number] Information: ADD B01509 AND DRAW FEE 99 2060 TSH (50364)Ordered By: Yan m Sales Representative [employer] on 11-01-2009 TSH Qn 1.320 {uIU/mL} Normal 0.450-4.50 0 [facility] Work Phone: Comment on above: PATIENT NOT FASTINGP ERFORMED BY: TOBIN [facility] Ohfehi7674 [facility] [id number] C-REACTIVE PROTEIN (89849)Or dered By: Pasteurizer on 08-30-2009 CRP [Mass/Vol] 9.8 mg/L Abnormal 0.0-4.9 [facility] Internal Medicine Work Phone: Comment on above: PATIENT NOT FASTINGP ERFORMED BY: TOBIN [facility] Kqckwh0463 [address] [facility]in [place] [id number] CBC (AUTO) (17856)Ordered By : Pasteurizer on 08-30-2009 Erythrocyte distribution width (RBC) [Ratio] 15.3 % Abnormal 11.7-15.0 [facility] Work Phone: Comment on above: PATIENT NOT FASTINGP ERFORMED BY: CB [facility] Dumolz7125 Jenkins RoadWakemed North Hospitalin [place] [id number] Information: ADD P52291 AND DRAW FEE 99 6660 Hematocrit (Bld) [Volume fraction] 40.3 % Normal 34.0-44.0 [facility] Work Phone: Comment on above: PATIENT NOT FASTINGP ERFORMED BY: CB [facility] Ktlxym8548 [facility] [id number] Information: ADD K44626 AND DRAW FEE 99 6660 Hemoglobin (Bld) [Mass/Vol] 14.0 g/dL Normal 11.5-15.0 [facility] Internal Medicine Work Phone: Comment on above: PATIENT NOT FASTINGP ERFORMED BY: TOBIN SongCojoseph FaganYrgzwp5178 [facility] [id number] Information: ADD E70000 AND DRAW FEE 99 6660 MCH (RBC) [Entitic mass] 29.7 pg Normal 27.0-34.0 [facility] Internal Medicine Work Phone: Comment on above: PATIENT NOT FASTINGP ERFORMED BY: LabJohn Ville 4708170 [facility] [id number] Information: ADD K98169 AND DRAW FEE 99 6660 MCHC (RBC) [Mass/Vol] 34.8 g/dL Normal 32.0-36.0 [facility] Internal Medicine Work Phone: Comment on above: PATIENT NOT FASTINGP ERFORMED BY: LabCoJanice Ville 8890570 [facility] [id number] Information: ADD J17362 AND DRAW FEE 99 6660 MCV (RBC) [Entitic vol] 85 fL Normal 80-98 [facility] Internal Medicine Work Phone: Comment on above: PATIENT NOT FASTINGP ERFORMED BY: LabCo[address] [id number] Information: ADD E44797 AND DRAW FEE 99 6660 Platelets (Bld) [#/Vol] 306 {x10E3/uL} Normal 140-415 [facility] Internal Medicine Work Phone: Comment on above: PATIENT NOT FASTINGP ERFORMED BY: LabCoJanice Ville 8890570 [facility] [id number] Information: ADD H92340 AND DRAW FEE 99 6660 Platelets (Bld) [#/Vol] 306 10*3/uL Normal 140-415 [facility]; [facility] Internal Medicine Work Phone: RBC (Bld) [#/Vol] 4.72 {x10E6/uL} Normal 3.80-5.10 [facility] Work Phone: Comment on above: PATIENT NOT FASTINGP ERFORMED BY: [place] ParkUNM Sandoval Regional Medical CenterVfldrd8892 [facility] [id number] Information: ADD K24282 AND DRAW FEE 99 6660 RBC (Bld) [#/Vol] 4.72 10*6/uL Normal 3.80-5.10 [facility]; [facility] Work Phone: WBC (Bld) [#/Vol] 14.1 {x10E3/uL} Abnormal 4.0-10.5 Co [facility] Internal Medicine Work Phone: Comment on above: PATIENT NOT FASTINGP ERFORMED BY: [place] Flxkkb9998 [facility] [id number] Information: ADD B51565 AND DRAW FEE 99 6660 WBC (Bld) [#/Vol] 14.1 10*3/uL Abnormal 4.0-10.5 [facility] Internal Medicine; [facility] Work Phone: SED RATE ERYTHROCYTE (94758) Ordered By: Pasteurizer on 08-30-2009 ESR (Bld) [Velocity] 5 mm/h Normal 0-20 Comp [facility] Work Phone: Comment on above: PATIENT NOT FASTINGP ERFORMED BY: [facility]6370 [facility] [id number] Rapid Flu (97191 x 2)Ordered By: Cyndy Krishnamurthy on 02-26-2009 FLUAV Ag IA Ql (Throat) Negative Normal C ompking's daughters medical center ohioensive Internal Medicine Work Phone: FLUAV Ag IA Ql (Throat) Negative Normal [facility] Internal Medicine; [facility] Work Phone: HEPATIC FUNCTION PANEL (8007 6)Ordered By: Lisa Ziegler on 02-04-2009 Albumin [Mass/Vol] 4.4 g/dL Normal 3.5-5.5 [facility] Internal Medicine Work Phone: Comment on above: PATIENT NOT FASTINGC linical Information: ADD [id number],[id number] PERFORMED BY: LabCo Cocfrl3266 [address] [employer] MitusFormerly [facility] [id number] ALP [Catalytic activity/Vol] 39 [iU]/L Normal 25-150 [facility] Work Phone: Comment on above: PATIENT NOT FASTINGC linical Information: ADD 944783,[id number] PERFORMED BY: [facility] Kyustl3149 [facility] [id number] ALP [Catalytic activity/Vol] 39 U/L Normal 25-150 [facility]; [facility] Work Phone: ALT [Catalytic activity/Vol] 12 [iU]/L Normal 0-40 [facility] Work Phone: Comment on above: PATIENT NOT FASTINGC linical Information: ADD 703008,[id number] PERFORMED BY: [facility]Mer[facility] Eipvei7513 JenkinsNorth [facility] [id number] ALT [Catalytic activity/Vol] 12 U/L Normal 0-40 [facility]; [facility] Work Phone: AST [Catalytic activity/Vol] 14 [iU]/L Normal 0-40 [facility] Work Phone: Comment on above: PATIENT NOT FASTINGC linical Information: ADD 162561,[id number] PERFORMED BY: LabCo Wazham1091 [facility] [id number] AST [Catalytic activity/Vol] 14 U/L Normal 0-40 [facility]; [facility] Work Phone: Bilirubin [Mass/Vol] 0.2 mg/dL Normal 0.1-1.2 Comp [facility] Internal Medicine Work Phone: Comment on above: PATIENT NOT FASTINGC linical Information: ADD [id number],[id number] PERFORMED BY: LabHenry [facility] Hospital6370 [facility] [id number] Bilirubin.direct [Mass/Vol] 0.08 mg/dL Normal 0.00-0.40 [facility] Work Phone: Comment on above: PATIENT NOT FASTINGC linical Information: ADD [id number],[id number] PERFORMED BY: SoftArtHenry Ford Jackson Hospital6370 [facility] [id number] Protein [Mass/Vol] 7.2 g/dL Normal 6.0-8.5 [facility] Internal Medicine Work Phone: Comment on above: PATIENT NOT FASTINGC linical Information: ADD [id number] PERFORMED BY: LabJohn Ville 4708170 [facility] [id number] INFCT AGT ANTIGEN DIRECT LILIBETH URESCENT ASSAY; INFLUENZA B VIRUS (71930)Ordered By: Lisa Ziegler on 02-01-2009 H. influenzae B Ag IF Ql (Unsp spec) Negative Normal [facility] Work Phone: Comment on above: neg H. influenzae B Ag IF Ql (Unsp spec) Negative Normal [facility]; [facility] Work Phone: CBC with manual diff (68492) Ordered By: Cherelle Blankenship on 09-13-2008 Basophils (Bld) [#/Vol] 0.0 {x10E3/uL} Normal 0.0-0.2 [facility] Work Phone: Comment on above: PATIENT NOT FASTINGC linical Information: ADD DRAW FEE 418112 ADD J 96011 PERFORMED BY: [place] ParkGreystone Park Psychiatric HospitalGedaoj1826 [facility] [id number] Basophils (Bld) [#/Vol] 0.0 10*3/uL Normal 0.0-0.2 [facility]; [facility] Work Phone: Basophils/100 WBC (Bld) 0 % Normal 0-3 C omprehensive Internal Medicine Work Phone: Comment on above: PATIENT NOT FASTINGC linical Information: ADD DRAW FEE 773230 ADD J 81165 PERFORMED BY: [place] ParkGreystone Park Psychiatric HospitalEoyodp7953 [facility] [id number] Eosinophils (Bld) [#/Vol] 0.3 {x10E3/uL} Normal 0.0-0.4 [facility] Work Phone: Comment on above: PATIENT NOT FASTINGC linical Information: ADD DRAW FEE 147129 ADD J 26725 PERFORMED BY: [place] Smouxs7985 [facility] [id number] Eosinophils (Bld) [#/Vol] 0.3 10*3/uL Normal 0.0-0.4 [facility]; [facility] Work Phone: Eosinophils/100 WBC (Bld) 2 % Normal 0-7 [facility] Work Phone: Comment on above: PATIENT NOT FASTINGC linical Information: ADD DRAW FEE 752533 ADD J 57650 PERFORMED BY: [place] Xyshsu[address] [id number] Erythrocyte distribution width (RBC) [Ratio] 14.7 % Normal 11.7-15.0 [facility] Work Phone: Comment on above: PATIENT NOT FASTINGC linical Information: ADD DRAW FEE 403298 [place] J 05108 PERFORMED BY: SoftArt[address] [id number] Hematocrit (Bld) [Volume fraction] 41.7 % Normal 34.0-44.0 [facility] Work Phone: Comment on above: PATIENT NOT FASTINGC linical Information: ADD DRAW FEE 477743 ADD J 20582 PERFORMED BY: [place] [id number] Hemoglobin (Bld) [Mass/Vol] 13.9 g/dL Normal 11.5-15.0 [facility] Work Phone: Comment on above: PATIENT NOT FASTINGC linical Information: ADD DRAW FEE 688593 ADD J 90170 PERFORMED BY: [place] [id number] Lymphocytes (Bld) [#/Vol] 3.6 {x10E3/uL} Normal 0.7-4.5 [facility] Work Phone: Comment on above: PATIENT NOT FASTINGC linical Information: ADD DRAW FEE 576343 ADD J 62315 PERFORMED BY: SoftArt[address] [id number] Lymphocytes (Bld) [#/Vol] 3.6 10*3/uL Normal 0.7-4.5 [facility]; [facility] Work Phone: Lymphocytes/100 WBC (Bld) 28 % Normal 14-46 [facility] Work Phone: Comment on above: PATIENT NOT FASTINGC linical Information: ADD DRAW FEE 576694 ADD J 50511 PERFORMED BY: [address] [id number] MCH (RBC) [Entitic mass] 28.4 pg Normal 27.0-34.0 [facility] Internal Medicine Work Phone: Comment on above: PATIENT NOT FASTINGC linical Information: ADD DRAW FEE 124041 ADD J 15697 PERFORMED BY: TOBIN SoftArtHenry Ford Jackson Hospital[address] [place] [address] [id number] MCHC (RBC) [Mass/Vol] 33.2 g/dL Normal 32.0-36.0 [facility] Internal Medicine Work Phone: Comment on above: PATIENT NOT FASTINGC linical Information: ADD DRAW FEE 053909 ADD J 30549 PERFORMED BY: TOBIN SoftArtHenry Ford Jackson Hospital6370 [facility] [id number] MCV (RBC) [Entitic vol] 86 fL Normal 80-98 [facility] Internal Medicine Work Phone: Comment on above: PATIENT NOT FASTINGC linical Information: ADD DRAW FEE 032986 ADD J 50227 PERFORMED BY: [employer] [id number] Monocytes (Bld) [#/Vol] 0.4 {x10E3/uL} Normal 0.1-1.0 [facility] Internal Medicine Work Phone: Comment on above: PATIENT NOT FASTINGC linical Information: ADD DRAW FEE 581364 ADD J 15029 PERFORMED BY: TOBIN SoftArtJohn Ville 4708170 [facility] [id number] Monocytes (Bld) [#/Vol] 0.4 10*3/uL Normal 0.1-1.0 [facility]; [facility] Work Phone: Monocytes/100 WBC (Bld) 3 % Abnormal 4-13 C [facility]rehensive Internal Medicine Work Phone: Comment on above: PATIENT NOT FASTINGC linical Information: ADD DRAW FEE 016114 ADD J 92711 PERFORMED BY: TOBIN Towne Parkjoseph Ylskww5610 [facility]paUNC Health [id number] Neutrophils (Bld) [#/Vol] 8.6 {x10E3/uL} Abnormal 1.8-7.8 [facility] Work Phone: Comment on above: PATIENT NOT FASTINGC linical Information: ADD DRAW FEE 174450 ADD J 30554 PERFORMED BY: TOBIN [employer] Usesos4409Above All SoftwareUNC Health [id number] Neutrophils (Bld) [#/Vol] 8.6 10*3/uL Abnormal 1.8-7.8 [facility]; [facility] Work Phone: Neutrophils/100 WBC (Bld) 67 % Normal 40-74 Comprehensive Internal Medicine Work Phone: Comment on above: PATIENT NOT FASTINGC linical Information: ADD DRAW FEE [id number] ADD J [id number] PERFORMED BY: TOBIN PSI SystemsUNC Health [id number] Platelets (Bld) [#/Vol] 368 {x10E3/uL} Normal 140-415 [...] NOT FASTINGC linical Information: ADD DRAW FEE 718159 ADD J [id number] PERFORMED BY: [employer]70 HelpaUNC Health [id number] Platelets (Bld) [#/Vol] 368 10*3/uL Normal 140-415 [facility]; [facility] Work Phone: RBC (Bld) [#/Vol] 4.87 {x10E6/uL} Normal 3.80-5.10 [facility] Work Phone: Comment on above: PATIENT NOT FASTINGC linical Information: ADD DRAW FEE 046904 ADD J [id number] PERFORMED BY: [place] Crkwik2024 [facility] [id number] RBC (Bld) [#/Vol] 4.87 10*6/uL Normal 3.80-5.10 Compr ehensive Internal Medicine; [facility] Work Phone: WBC (Bld) [#/Vol] 12.9 {x10E3/uL} Abnormal 4.0-10.5 [facility] Work Phone: Comment on above: PATIENT NOT FASTINGC linical Information: ADD DRAW FEE 956035 ADD J 50790 PERFORMED BY: LabBreak30 Dvmcvz5486 [facility] [id number] WBC (Bld) [#/Vol] 12.9 10*3/uL Abnormal 4.0-10.5 Compr ehensive Internal Medicine; [facility] Work Phone: Rapid Flu (33929 x 2)Ordered By: Chantell Thomas on 09-13-2008 FLUAV Ag IA Ql (Throat) Negative Normal C omprehensive Internal Medicine Work Phone: Comment on above: done BC FLUAV Ag IA Ql (Throat) Negative Normal C [facility]rehensive Internal Medicine; [facility] Work Phone: Urinalysis, Office ([phone])Or dered By: Chantell Thomas on 09-13-2008 Bilirubin [...] [facility] Work Phone: LIPID PANEL ([phone])Ordered B y: Lisa Ziegler on 08-06-2008 Cholesterol [Mass/Vol] 151 mg/dL Normal 100-199 [facility] Internal Medicine Work Phone: Comment on above: PATIENT NOT FASTINGP ERFORMED BY: TOBIN [place]joseph [employer] [facility] [id number] Cholesterol in HDL [Mass/Vol] 55 mg/dL Normal [facility] Work Phone: Comment on above: According to ATP-III Guidelines, HDL-C >59 mg/dL is considered anegative risk factor for CHD. PATIENT NOT FASTINGP ERFORMED BY: TOBIN Liquid Gridsin [place] [id number] Cholesterol in LDL [Mass/Vol] 72 mg/dL Normal 0-99 [facility] Work Phone: Comment on above: PATIENT NOT FASTINGP ERFORMED BY: CB [facility] Imajew2762 [address] RoadDublin [place] [id number] Cholesterol in LDL/Cholesterol in HDL [Mass ratio] 1.3 {ratio_units} Normal 0.0-3.2 [facility] Work Phone: Comment on above: PATIENT NOT FASTINGP ERFORMED BY: CB [facility] Wrkmob5392 Jenkins RoadWakemed North Hospitalin [place] [id number] Cholesterol in VLDL [Mass/Vol] 24 mg/dL Normal 5-40 [facility] Work Phone: Comment on above: PATIENT NOT FASTINGP ERFORMED BY: CB [facility] Abkifa3128 Jenkins RoadDuin [place] [id number] Triglyceride [Mass/Vol] 121 mg/dL Normal 0-149 C omprehensive Internal Medicine Work Phone: Comment on above: PATIENT NOT FASTINGP ERFORMED BY: CB [facility] Uujesg3720 [address] [facility] [id number] METABOLIC PANEL, COMPREHENSI VE (93291)Ordered By: Lisa Ziegler on 08-06-2008 Albumin [Mass/Vol] 4.5 g/dL Normal 3.5-5.5 [facility] Internal Medicine Work Phone: Comment on above: PATIENT NOT FASTINGC linical Information: [id number] PERFORMED BY: CB [facility] Mpyncm9783 [address] [facility] [place] [id number] Albumin/Globulin [Mass ratio] 1.6 {ratio} Normal 1.1-2.5 [facility] Work Phone: Comment on above: PATIENT NOT FASTINGC linical Information: [id number] PERFORMED BY: CB [facility] Qhwttc1341 [address] [facility] [place] [id number] ALP [Catalytic activity/Vol] 44 [iU]/L Normal 25-150 [facility] Work Phone: Comment on above: PATIENT NOT FASTINGC linical Information: [id number] PERFORMED BY: TOBIN [facility] Mxbbux8294 Jenkins Roadblin [place] [id number] ALP [Catalytic activity/Vol] 44 U/L Normal 25-150 [facility]; [facility] Work Phone: ALT [Catalytic activity/Vol] 13 [iU]/L Normal 0-40 [facility] Work Phone: Comment on above: PATIENT NOT FASTINGC linical Information: [id number] PERFORMED BY: TOBIN [facility] Oaubys3223 [address] [facility]in [place] [id number] ALT [Catalytic activity/Vol] 13 U/L Normal 0-40 [facility]; [facility] Work Phone: AST [Catalytic activity/Vol] 13 [iU]/L Normal 0-40 [facility] Work Phone: Comment on above: PATIENT NOT FASTINGC linical Information: [id number] PERFORMED BY: TOBIN LabCo Ctwwzi1043 [address] [facility] [id number] AST [Catalytic activity/Vol] 13 U/L Normal 0-40 [facility]; [facility] Work Phone: Bilirubin [Mass/Vol] 0.2 mg/dL Normal 0.1-1.2 Comp rehensive Internal Medicine Work Phone: Comment on above: PATIENT NOT FASTINGC linical Information: [id number] PERFORMED BY: TOBIN [facility]Co Pnzmgq1659 [address] [facility] [place] [id number] Calcium [Mass/Vol] 9.8 mg/dL Normal 8.5-10.6 Compre [facility] Internal Medicine Work Phone: Comment on above: PATIENT NOT FASTINGC linical Information: [id number] PERFORMED BY: TOBIN [facility] Njtllr4687 [address] [facility] [place] [id number] Chloride [Moles/Vol] 107 mmol/L Normal 97-108 Comp rehensive Internal Medicine Work Phone: Comment on above: PATIENT NOT FASTINGC linical Information: [id number] PERFORMED BY: TOBIN [id number] [facility] [id number] CO2 [Moles/Vol] 22 mmol/L Normal 20-32 [facility] Internal Medicine Work Phone: Comment on above: PATIENT NOT FASTINGC linical Information: [id number] PERFORMED BY: [id number] [facility] [id number] Creatinine [Mass/Vol] 0.90 mg/dL Normal 0.57-1.00 [facility] Internal Medicine Work Phone: Comment on above: PATIENT NOT FASTINGC linical Information: [id number] PERFORMED BY: TOBIN [id number] [facility] [id number] GFR/1.73 sq M predicted among blacks MDRD (S/P/Bld) [Vol rate/Area] mL/min/{1.73_m2} Normal [facility] Internal Medicine Work Phone: Comment on above: Note: Persistent red uction for 3 months or more in an eGFR<60 mL/min/1.73 m2 defines CKD. Patients with eGFR values>/=60 mL/min/1.73 m2 may also have CKD if evidence of persistentproteinuria is present. Additional information may be found [email or web address]. PATIENT NOT FASTINGC linical Information: [id number]//[id number] PERFORMED BY: [place] Pevmfk0644 [facility] [id number] GFR/1.73 sq M.predicted MDRD (S/P/Bld) [Vol rate/Area] mL/min/{1.73_m2} Normal [facility] Work Phone: Comment on above: PATIENT NOT FASTINGC linical Information: [id number] PERFORMED BY: [id number] [facility] [id number] Globulin (S) [Mass/Vol] 2.9 g/dL Normal 1.5-4.5 [facility] Internal [facility] Work Phone: Comment on above: PATIENT NOT FASTINGC linical Information: [id number]//[id number] PERFORMED BY: TOBIN LabCo Dwulfg7221 [address] [facility] [id number] Glucose [Mass/Vol] 87 mg/dL Normal 65-99 [facility] Internal Medicine Work Phone: Comment on above: PATIENT NOT FASTINGC linical Information: [id number] PERFORMED BY: TOBIN LabCo Ecpgkz7826 [address] [facility] [id number] Potassium [Moles/Vol] 4.5 mmol/L Normal 3.5-5.2 [facility] Internal Medicine Work Phone: Comment on above: PATIENT NOT FASTINGC linical Information: [id number] PERFORMED BY: TOBIN LabCo Xpxbrg6969 [facility] [id number] Protein [Mass/Vol] 7.4 g/dL Normal 6.0-8.5 [facility] Internal Medicine Work Phone: Comment on above: PATIENT NOT FASTINGC linical Information: [id number]//[id number] PERFORMED BY: TOBIN LabCo Jozhbp7264 [facility] [id number] Sodium [Moles/Vol] 141 mmol/L Normal 135-145 [facility] Internal Medicine Work Phone: Comment on above: PATIENT NOT FASTINGC linical Information: [id number]//[id number] PERFORMED BY: TOBIN LabHenry [facility] Hospital6370 [facility] [id number] Urea nitrogen [Mass/Vol] 8 mg/dL Normal 5-26 [facility] Work Phone: Comment on above: PATIENT NOT FASTINGC linical Information: [id number]//[id number] PERFORMED BY: TOBIN LabHenry [facility]6370 [facility] [id number] Urea nitrogen/Creatinine [Mass ratio] 9 mg/mg Normal 8-27 [facility] Work Phone: Comment on above: PATIENT NOT FASTINGC linical Information: [id number] PERFORMED BY: TOBIN [place] Bhdibh0812 [facility] [id number] TSH (16354)Ordered By: Marek Ziegler on 08-06-2008 TSH Qn 1.340 {uIU/mL} Normal 0.450-4.50 0 [facility] Work Phone: Comment on above: PATIENT NOT FASTINGP ERFORMED BY: TOBIN LabHenry [facility]6370 [facility] [id number] Urine Test, Office (81489)Ordered By: Chantell Thomas on 03-12-2008 Beta HCG ( test) Ql (U) Negative Normal [facility] Work Phone: Urine Test, Office (33944) Negative Normal [facility]; [facility] Work Phone: CARLOS (ANTINUCLEAR ANTIBODY) ( [phone])Ordered By: Lisa Ziegler on 12-28-2007 Nuclear Ab IF (S) [Titer] 27 AU/mL Normal 0-99 [facility] Work Phone: Comment on above: Negative <100 Equivo tash 100 - 120 Positive >120 PATIENT NOT FASTINGP ERFORMED BY: TOBIN LabBreak30[facility] HospitalBnmncw5991 [facility] [id number] CARLOS (ANTINUCLEAR ANTIBODY) (49138) 27 AU/mL Normal 0-99 [facility]; [facility] Work Phone: C-REACTIVE PROTEIN (04857)Or dered By: Lisa Ziegler on 12-28-2007 CRP [Mass/Vol] 3.2 mg/L Normal 0.0-4.9 Comprehens [facility] Internal Medicine Work Phone: Comment on above: PATIENT NOT FASTINGP ERFORMED BY: TOBIN LabHenry [facility] Hospital6370 [facility] [id number] CBC (AUTO) (24148)Ordered By : Lisa Ziegler on 12-28-2007 Erythrocyte distribution width (RBC) [Ratio] 15.0 % Normal 11.7-15.0 [facility] Work Phone: Comment on above: PATIENT NOT FASTINGP ERFORMED BY: CB [facility] Qkucut2583 Jenkins RoadDublin [place] [id number] Hematocrit (Bld) [Volume fraction] 39.4 % Normal 34.0-44.0 [facility] Internal Medicine Work Phone: Comment on above: PATIENT NOT FASTINGP ERFORMED BY: CB [facility] Cuvdmj1199 [address] [facility] [id number] Hemoglobin (Bld) [Mass/Vol] 13.4 g/dL Normal 11.5-15.0 [facility] Internal Medicine Work Phone: Comment on above: PATIENT NOT FASTINGP ERFORMED BY: CB [facility] Ztklea2980 [address] [facility] [id number] MCH (RBC) [Entitic mass] 28.9 pg Normal 27.0-34.0 [facility] Internal Medicine Work Phone: Comment on above: PATIENT NOT FASTINGP ERFORMED BY: CB [facility] Fbokau9575 [address] [facility] [id number] MCHC (RBC) [Mass/Vol] 33.9 g/dL Normal 32.0-36.0 [facility] Internal Medicine Work Phone: Comment on above: PATIENT NOT FASTINGP ERFORMED BY: CB [facility] Ryhhde7329 [address] [facility]in [place] [id number] MCV (RBC) [Entitic vol] 86 fL Normal 80-98 [facility] Internal Medicine Work Phone: Comment on above: PATIENT NOT FASTINGP ERFORMED BY: CB [facility] Qhzvjj8774 [address] [facility]in [place] [id number] Platelets (Bld) [#/Vol] 317 {x10E3/uL} Normal 140-415 [facility] Work Phone: Comment on above: PATIENT NOT FASTINGP ERFORMED BY: CB [facility] Jhotkc3730 [address] RoadDublin [place] [id number] Platelets (Bld) [#/Vol] 317 10*3/uL Normal 140-415 [facility]; [facility] Work Phone: RBC (Bld) [#/Vol] 4.61 {x10E6/uL} Normal 3.80-5.10 [facility] Internal Medicine Work Phone: Comment on above: PATIENT NOT FASTINGP ERFORMED BY: TOBIN [facility] Admzrz9404 [facility] [id number] RBC (Bld) [#/Vol] 4.61 10*6/uL Normal 3.80-5.10 Compr ensive Internal Medicine; [facility] Work Phone: WBC (Bld) [#/Vol] 9.6 {x10E3/uL} Normal 4.0-10.5 [facility] Internal Medicine Work Phone: Comment on above: PATIENT NOT FASTINGP ERFORMED BY: TOBIN [facility] Avcrfo2732 [facility] [id number] WBC (Bld) [#/Vol] 9.6 10*3/uL Normal 4.0-10.5 [facility] Internal Medicine; [facility] Work Phone: Folate ([phone])Ordered By: Kassandra Ziegler on 12-28-2007 Folate [Mass/Vol] 21.0 ng/mL Normal [facility] Internal Medicine Work Phone: Comment on above: Indeterminate: 3.4 - 5.4 Deficient: <3.4 PATIENT NOT FASTINGP ERFORMED BY: [facility] Cuqeix2479 [facility] [id number] GONADOTROPIN-FSH (89683)Orde red By: Lisa Ziegler on 12-28-2007 GONADOTROPIN-FSH (12576) 6.1 m[iU]/mL Normal [facility] Work [...] - 116.3 PATIENT NOT FASTINGP ERFORMED BY: CB [facility] Hrqbjp5871 [address] RoadDublin [place] [id number] LIPID PANEL (50659)Ordered B y: Lisa Ziegler on 12-28-2007 Cholesterol [Mass/Vol] 175 mg/dL Normal 100-199 [facility] Internal Medicine Work Phone: Comment on above: PATIENT NOT FASTINGP ERFORMED BY: CB [facility] Oervhc8062 [address] RoadDublin [place] [id number] Cholesterol in HDL [Mass/Vol] 52 mg/dL Normal 40-59 [facility] Work Phone: Comment on above: PATIENT NOT FASTINGP ERFORMED BY: CB [facility] Yfhavm2784 [address] RoadDublin [place] [id number] Cholesterol in LDL [Mass/Vol] 92 mg/dL Normal 0-99 [facility] Work Phone: Comment on above: PATIENT NOT FASTINGP ERFORMED BY: CB [facility] Eakhhj4879 [address] RoadDublin [place] [id number] Cholesterol in LDL/Cholesterol in HDL [Mass ratio] 1.8 {ratio_units} Normal 0.0-3.2 [facility] Work Phone: Comment on above: PATIENT NOT FASTINGP ERFORMED BY: CB [facility] Nsdzey9076 [address] RoadDublin [place] [id number] Cholesterol in VLDL [Mass/Vol] 31 mg/dL Normal 5-40 [facility] Work Phone: Comment on above: PATIENT NOT FASTINGP ERFORMED BY: CB [facility] Hgftjk6466 [address] RoadDublin [place] [id number] Triglyceride [Mass/Vol] 155 mg/dL Abnormal 0-149 C omprehensive Internal Medicine Work Phone: Comment on above: PATIENT NOT FASTINGP ERFORMED BY: CB [facility] Yoabmt8384 [address] RoadDublin [place] [id number] METABOLIC PANEL, COMPREHENSI VE (38055)Ordered By: Lisa Ziegler on 12-28-2007 Albumin [Mass/Vol] 4.5 g/dL Normal 3.5-5.5 [facility] Internal Medicine Work Phone: Comment on above: PATIENT NOT FASTINGP ERFORMED BY: CB [facility] Stowle4788 [address] RoadDublin [place] [id number] Albumin/Globulin [Mass ratio] 1.4 {ratio} Normal 1.1-2.5 [facility] Work Phone: Comment on above: PATIENT NOT FASTINGP ERFORMED BY: CB [facility] Nzddro5184 [address] RoadDublin [place] [id number] ALP [Catalytic activity/Vol] 42 [iU]/L Normal 25-150 [facility] Work Phone: Comment on above: PATIENT NOT FASTINGP ERFORMED BY: CB [facility] Ttchml2528 [address] RoadDublin [place] [id number] ALP [Catalytic activity/Vol] 42 U/L Normal 25-150 [facility]; [facility] Work Phone: ALT [Catalytic activity/Vol] 13 [iU]/L Normal 0-40 [facility] Work Phone: Comment on above: PATIENT NOT FASTINGP ERFORMED BY: CB [facility] Cdfyjj2681 [address] RoadDublin [place] [id number] ALT [Catalytic activity/Vol] 13 U/L Normal 0-40 [facility]; [facility] Work Phone: AST [Catalytic activity/Vol] 19 [iU]/L Normal 0-40 [facility] Work Phone: Comment on above: PATIENT NOT FASTINGP ERFORMED BY: CB [facility] Izrxio5167 [address] RoadDublin [place] [id number] AST [Catalytic activity/Vol] 19 U/L Normal 0-40 [facility]; [facility] Work Phone: Bilirubin [Mass/Vol] 0.2 mg/dL Normal 0.1-1.2 [facility] Internal Medicine Work Phone: Comment on above: PATIENT NOT FASTINGP ERFORMED BY: CB [facility] Pyqxim9685 [address] RoadDublin [place] [id number] Calcium [Mass/Vol] 9.5 mg/dL Normal 8.5-10.6 [facility] Internal Medicine Work Phone: Comment on above: PATIENT NOT FASTINGP ERFORMED BY: CB [facility] Lawacy3717 [address] RoadDublin [place] [id number] Chloride [Moles/Vol] 101 mmol/L Normal 97-108 [facility] Internal Medicine Work Phone: Comment on above: PATIENT NOT FASTINGP ERFORMED BY: CB [facility] Srbhya1602 [address] RoadDublin [place] [id number] CO2 [Moles/Vol] 22 mmol/L Normal 20-32 [facility] Internal Medicine Work Phone: Comment on above: PATIENT NOT FASTINGP ERFORMED BY: CB [facility] Lahsrc7302 [address] RoadDublin [place] [id number] Creatinine [Mass/Vol] 0.90 mg/dL Normal 0.57-1.00 [facility] Internal Medicine Work Phone: Comment on above: Please note refere nce interval change PATIENT NOT FASTINGP ERFORMED BY: CB [facility] Tgadsd1095 [address] RoadDublin [place] [id number] GFR/1.73 sq M predicted among blacks MDRD (S/P/Bld) [Vol rate/Area] mL/min/{1.73_m2} Normal 60-128 [facility] Internal Medicine Work Phone: Comment on above: Note: Persistent red uction for 3 months or more in an eGFR<60 mL/min/1.73 m2 defines CKD. Patients with eGFR values>/=60 mL/min/1.73 m2 may also have CKD if evidence of persistentproteinuria is present. Additional information may be found [email or web address].org. PATIENT NOT FASTINGP ERFORMED BY: LabCoGreystone Park Psychiatric HospitalBpmheb2780 [address] [facility] [id number] GFR/1.73 sq M.predicted MDRD (S/P/Bld) [Vol rate/Area] mL/min/{1.73_m2} Normal 60-128 [facility] Internal Medicine Work Phone: Comment on above: PATIENT NOT FASTINGP ERFORMED BY: LabCoGreystone Park Psychiatric HospitalKzblel7932 [address] [facility] [id number] Globulin (S) [Mass/Vol] 3.2 g/dL Normal 1.5-4.5 [facility] Internal Medicine Work Phone: Comment on above: PATIENT NOT FASTINGP ERFORMED BY: LabHenry Ford Jackson Hospital6370 [address] [facility] [id number] Glucose [Mass/Vol] 81 mg/dL Normal 65-99 [facility] Internal Medicine Work Phone: Comment on above: PATIENT NOT FASTINGP ERFORMED BY: LabCoGreystone Park Psychiatric HospitalKbhfmj2325 [address] [facility] [id number] Potassium [Moles/Vol] 4.2 mmol/L Normal 3.5-5.2 [facility] Internal Medicine Work Phone: Comment on above: PATIENT NOT FASTINGP ERFORMED BY: [facility] Hnvyiq7109 [facility] [id number] Protein [Mass/Vol] 7.7 g/dL Normal 6.0-8.5 [facility] Internal Medicine Work Phone: Comment on above: PATIENT NOT FASTINGP ERFORMED BY: [facility] Ymjhav0633 [address] [facility] [id number] Sodium [Moles/Vol] 137 mmol/L Normal 135-145 [facility] Internal Medicine Work Phone: Comment on above: PATIENT NOT FASTINGP ERFORMED BY: [facility] Yvtwoq6481 [address] [facility] [id number] Urea nitrogen [Mass/Vol] 8 mg/dL Normal 5-26 [facility] Work Phone: Comment on above: PATIENT NOT FASTINGP ERFORMED BY: CB [facility] Uiinsu8645 [address] RoadDublin [place] [id number] Urea nitrogen/Creatinine [Mass ratio] 9 mg/mg Normal 8- [facility] Work Phone: Comment on above: PATIENT NOT FASTINGP ERFORMED BY: CB [facility] Diapmg7698 [address] RoadDublin [place] [id number] RHEUMATOID FACTOR-QUANT (864 31)Ordered By: Lisa Ziegler on 12-28-2007 Rheumatoid factor Qn 8.2 {IU/mL} Normal 0.0-13.9 Com prehensive Internal Medicine Work Phone: Comment on above: PATIENT NOT FASTINGP ERFORMED BY: CB [facility] Fehexz3827 [address] RoadDublin [place] [id number] Rheumatoid factor Qn 8.2 [IU]/mL Normal 0.0-13.9 [facility] prehensive Internal Medicine; [facility] Work Phone: SED RATE ERYTHROCYTE (11132) Ordered By: Lisa Ziegler on 12-28-2007 ESR (Bld) [Velocity] 1 mm/h Normal 0-20 [facility]erens[facility] Internal Medicine Work Phone: Comment on above: PATIENT NOT FASTINGP ERFORMED BY: CB [facility] Pijtyu0343 [address] RoadDublin [place] [id number] TSH (02293)Ordered By: Marek Ziegler on 12-28-2007 TSH Qn 2.295 {uIU/mL} Normal 0.450-4.50 0 [facility] Work Phone: Comment on above: Please note refere nce interval change PATIENT NOT FASTINGP ERFORMED BY: CB [facility] Qaoaor4152 [address] RoadDublin [place] [id number] VITAMIN B-12 (CYANOCOBALAMIN ) (48871)Ordered By: Lisa Ziegler on 12-28-2007 Cobalamin (Vitamin B12) [Mass/Vol] 511 pg/mL Normal 211-911 [facility] Work Phone: Comment on above: PATIENT NOT FASTINGP ERFORMED BY: TOBIN SongHenry Ford Jackson Hospital6370 [facility] [id number] Rapid Flu (28401 x 2)Ordered By: Maricarmen Cordova on 08-01-2007 FLUAV Ag IA Ql (Throat) Negative Normal C omprehensive Internal Medicine Work Phone: Comment on above: neg FLUAV Ag IA Ql (Throat) Negative Normal C omprehensive Internal Medicine; [facility] Work Phone: Amylase (85039)Ordered By: Patel ebra Fast on 05-17-2007 Amylase [Catalytic activity/Vol] 32 U/L Normal 0-99 [facility] Work Phone: Comment on above: PATIENT NOT FASTINGP ERFORMED BY: TOBIN [facility] Upixza6058 [facility] [id number] CBC WITH MANUAL DIFF (10938) Ordered By: Jessica Fast on 05-17-2007 Basophils (Bld) [#/Vol] 0.0 {x10E3/uL} Normal 0.0-0.2 [facility] Work Phone: Comment on above: PATIENT NOT FASTINGC linical Information: ADD DRAW FEE 979451 ADD J 11961 PERFORMED BY: TOBIN SongMer[facility] Hospital St[facility] Vyuhhr7039 [facility] [id number] Basophils (Bld) [#/Vol] 0.0 10*3/uL Normal 0.0-0.2 [facility]; [facility] Work Phone: Basophils/100 WBC (Bld) 0 % Normal 0-3 C omprehensive Internal Medicine Work Phone: Comment on above: PATIENT NOT FASTINGC linical Information: ADD DRAW FEE [id number] ADD J 28669 PERFORMED BY: TOBIN SoftArtHenry Ford Jackson Hospital6370 [facility] [id number] Eosinophils (Bld) [#/Vol] 0.1 {x10E3/uL} Normal 0.0-0.4 [facility] Work Phone: Comment on above: PATIENT NOT FASTINGC linical Information: ADD DRAW FEE 293305 ADD J 60865 PERFORMED BY: [place] 2269870 [facility] [id number] Eosinophils (Bld) [#/Vol] 0.1 10*3/uL Normal 0.0-0.4 [facility]; [facility] Work Phone: Eosinophils/100 WBC (Bld) 1 % Normal 0-7 [facility] Work Phone: Comment on above: PATIENT NOT FASTINGC linical Information: ADD DRAW FEE [id number] ADD J 88373 PERFORMED BY: [address] [id number] Erythrocyte distribution width (RBC) [Ratio] 15.2 % Abnormal 11.7-15.0 [facility] Work Phone: Comment on above: PATIENT NOT FASTINGC linical Information: ADD DRAW FEE 138696 ADD J 92229 PERFORMED BY: [address] [id number] Hematocrit (Bld) [Volume fraction] 38.5 % Normal 34.0-44.0 [facility] Work Phone: Comment on above: PATIENT NOT FASTINGC linical Information: ADD DRAW FEE 740336 ADD J 51165 PERFORMED BY: [address] [id number] Hemoglobin (Bld) [Mass/Vol] 13.1 g/dL Normal 11.5-15.0 [facility] Work Phone: Comment on above: PATIENT NOT FASTINGC linical Information: ADD DRAW FEE 113999 ADD J [id number] PERFORMED BY: [place] [id number] [facility] [id number] Lymphocytes (Bld) [#/Vol] 3.6 {x10E3/uL} Normal 0.7-4.5 [facility] Work Phone: Comment on above: PATIENT NOT FASTINGC linical Information: ADD DRAW FEE 666109 ADD J 56201 PERFORMED BY: [address] [id number] Lymphocytes (Bld) [#/Vol] 3.6 10*3/uL Normal 0.7-4.5 [facility]; [facility] Work Phone: Lymphocytes/100 WBC (Bld) 35 % Normal 14-46 [facility] Work Phone: Comment on above: PATIENT NOT FASTINGC linical Information: ADD DRAW FEE [id number] ADD J 52979 PERFORMED BY: TOBIN [place] [id number] [address] [employer] Heard MediaUNC Health [id number] MCH (RBC) [Entitic mass] 29.8 pg Normal 27.0-34.0 [facility] Internal Medicine Work Phone: Comment on above: PATIENT NOT FASTINGC linical Information: ADD DRAW FEE 580720 ADD J 96084 PERFORMED BY: TOBIN [place] [employer] [place] [employer] He[facility] MediaUNC Health [id number] MCHC (RBC) [Mass/Vol] 34.2 g/dL Normal 32.0-36.0 [facility] Internal Medicine Work Phone: Comment on above: PATIENT NOT FASTINGC linical Information: ADD DRAW FEE 974186 ADD J 39805 PERFORMED BY: [place] [employer] [place]iain [place] [id number] MCV (RBC) [Entitic vol] 87 fL Normal 80-98 [facility] Internal Medicine Work Phone: Comment on above: PATIENT NOT FASTINGC linical Information: ADD DRAW FEE 497415 ADD J 47313 PERFORMED BY: [place] [employer] He[facility] MediaUNC Health [id number] Monocytes (Bld) [#/Vol] 0.4 {x10E3/uL} Normal 0.1-1.0 [facility] Internal Medicine Work Phone: Comment on above: PATIENT NOT FASTINGC linical Information: ADD DRAW FEE 286432 ADD J 19562 PERFORMED BY: [place] [employer] [place] [employer] [place] [place] [id number] Monocytes (Bld) [#/Vol] 0.4 10*3/uL Normal 0.1-1.0 [facility]; [facility] Internal Medicine Work Phone: Monocytes/100 WBC (Bld) 4 % Normal 4-13 [facility] Internal Medicine Work Phone: Comment on above: PATIENT NOT FASTINGC linical Information: ADD DRAW FEE [id number] ADD J 06080 PERFORMED BY: LabCoGreystone Park Psychiatric HospitalYojlla6441 [facility] Hospitalin [place] [id number] Neutrophils (Bld) [#/Vol] 6.1 {x10E3/uL} Normal 1.8-7.8 [facility] Internal Medicine Work Phone: Comment on above: PATIENT NOT FASTINGC linical Information: ADD DRAW FEE 410270 ADD J 13240 PERFORMED BY: LabJohn Ville [id number] [facility] [id number] Neutrophils (Bld) [#/Vol] 6.1 10*3/uL Normal 1.8-7.8 [facility] Internal Medicine; [facility] Internal Medicine Work Phone: Neutrophils/100 WBC (Bld) 60 % Normal 40-74 [facility] Internal Medicine Work Phone: Comment on above: PATIENT NOT FASTINGC linical Information: ADD DRAW FEE 509682 ADD J 31770 PERFORMED BY: LabJohn Ville [id number] [facility] [id number] Platelets (Bld) [#/Vol] 324 {x10E3/uL} Normal 140-415 [facility] Internal Medicine Work Phone: Comment on above: PATIENT NOT FASTINGC linical Information: ADD DRAW FEE 914260 ADD J 38271 PERFORMED BY: [facility]Henry [facility]6370 [facility] [id number] Platelets (Bld) [#/Vol] 324 10*3/uL Normal 140-415 [facility] Internal Medicine; [facility] Internal Medicine Work Phone: RBC (Bld) [#/Vol] 4.41 {x10E6/uL} Normal 3.80-5.10 [facility] Work Phone: Comment on above: PATIENT NOT FASTINGC linical Information: ADD DRAW FEE 188158 ADD J 87394 PERFORMED BY: LabHenry [facility] Hospital6370 [facility] [id number] RBC (Bld) [#/Vol] 4.41 10*6/uL Normal 3.80-5.10 [facility]; [facility] Work Phone: WBC (Bld) [#/Vol] 10.2 {x10E3/uL} Normal 4.0-10.5 [facility] Internal Medicine Work Phone: Comment on above: PATIENT NOT FASTINGC linical Information: ADD DRAW FEE 033330 ADD J 93507 PERFORMED BY: TOBIN LabCojoseph [id number] Jenkins RoadDublin [place] [id number] WBC (Bld) [#/Vol] 10.2 10*3/uL Normal 4.0-10.5 [facility] Internal Medicine; [facility] Work Phone: Lipase ([id number])Ordered By: Matos Fast on 05-17-2007 Lipase [Catalytic activity/Vol] 38 U/L Normal 0-59 [facility] Work Phone: Comment on above: PATIENT NOT FASTINGP ERFORMED BY: TOBIN [facility] [id number] Jenkins RoadDublin [place] [id number] METABOLIC PANEL, COMPREHENSI VE ([id number])Ordered By: Jessica Fast on 05-17-2007 Albumin [Mass/Vol] 4.2 g/dL Normal 3.5-5.5 [facility] Internal Medicine Work Phone: Comment on above: PATIENT NOT FASTINGP ERFORMED BY: TOBIN [facility] [id number] Jenkins RoadDublin [place] [id number] Albumin/Globulin [Mass ratio] 1.4 {ratio} Normal 1.1-2.5 [facility] Work Phone: Comment on above: PATIENT NOT FASTINGP ERFORMED BY: CB [facility] Ktbreo6518 Jenkins RoadDublin [place] [id number] ALP [Catalytic activity/Vol] 75 [iU]/L Normal 25-150 [facility] Work Phone: Comment on above: PATIENT NOT FASTINGP ERFORMED BY: TOBIN [facility] [id number] Jenkins RoadDublin [place] [id number] ALP [Catalytic activity/Vol] 75 U/L Normal 25-150 [facility]; [facility] Work Phone: ALT [Catalytic activity/Vol] 20 [iU]/L Normal 0-40 [facility] Work Phone: Comment on above: PATIENT NOT FASTINGP ERFORMED BY: CB [facility] [id number] [address] RoadDublin [place] [id number] ALT [Catalytic activity/Vol] 20 U/L Normal 0-40 [facility]; [facility] Work Phone: AST [Catalytic activity/Vol] 15 [iU]/L Normal 0-40 [facility] Internal Medicine Work Phone: Comment on above: PATIENT NOT FASTINGP ERFORMED BY: CB [facility] [id number] Jenkins RoadDublin [place] [id number] AST [Catalytic activity/Vol] 15 U/L Normal 0-40 [facility] Internal Medicine; [facility] Medicine Work Phone: Bilirubin [Mass/Vol] 0.2 mg/dL Normal 0.1-1.2 [facility] Work Phone: Comment on above: PATIENT NOT FASTINGP ERFORMED BY: CB [facility] [id number] Jenkins RoadDublin [place] [id number] Calcium [Mass/Vol] 9.5 mg/dL Normal 8.5-10.6 [facility] Internal Medicine Work Phone: Comment on above: PATIENT NOT FASTINGP ERFORMED BY: CB [facility] Sedcta7910 [address] RoadDublin [place] [id number] Chloride [Moles/Vol] 103 mmol/L Normal 96-109 [facility] Work Phone: Comment on above: PATIENT NOT FASTINGP ERFORMED BY: CB [facility] [id number] Ejnkins RoadDublin [place] [id number] CO2 [Moles/Vol] 25 mmol/L Normal 20-32 [facility] Work Phone: Comment on above: PATIENT NOT FASTINGP ERFORMED BY: CB [facility] [id number] [address] RoadDublin [place] [id number] Creatinine [Mass/Vol] 0.8 mg/dL Normal 0.5-1.5 [facility] Work Phone: Comment on above: PATIENT NOT FASTINGP ERFORMED BY: TOBIN LabCojoseph [id number] [address] [facility] [id number] Globulin (S) [Mass/Vol] 2.9 g/dL Normal 1.5-4.5 [facility] Work Phone: Comment on above: PATIENT NOT FASTINGP ERFORMED BY: TOBIN LabCojoseph [id number] [address] [facility] [id number] Glucose [Mass/Vol] 95 mg/dL Normal 65-99 [facility] Internal Medicine Work Phone: Comment on above: PATIENT NOT FASTINGP ERFORMED BY: TOBIN LabJudson Alvarez6370 [address] [facility] [id number] Potassium [Moles/Vol] 3.8 mmol/L Normal 3.5-5.5 [facility] Internal Medicine Work Phone: Comment on above: PATIENT NOT FASTINGP ERFORMED BY: TOBIN LabJudson Alvarez6370 [address] [facility] [id number] Protein [Mass/Vol] 7.1 g/dL Normal 6.0-8.5 [facility] Internal Medicine Work Phone: Comment on above: PATIENT NOT FASTINGP ERFORMED BY: TOBIN Madhavi Faganlin6370 [address] [facility] [id number] Sodium [Moles/Vol] 139 mmol/L Normal 135-148 [facility] Internal Medicine Work Phone: Comment on above: PATIENT NOT FASTINGP ERFORMED BY: TOBIN LabJudson [id number] [address] [facility] [id number] Urea nitrogen [Mass/Vol] 6 mg/dL Normal 5-26 [facility] Work Phone: Comment on above: PATIENT NOT FASTINGP ERFORMED BY: TOBIN [facility] [id number] [address] [facility] [id number] Urea nitrogen/Creatinine [Mass ratio] 8 mg/mg Normal 8-27 [facility] Work Phone: Comment on above: PATIENT NOT FASTINGP ERFORMED BY: TOBIN [facility] [id number] [facility] [id number] TSH ([id number])Ordered By: Jessica Fast on 05-17-2007 TSH Qn 3.270 {uIU/mL} Normal 0.350-5.50 0 [facility] Work Phone: Comment on above: PATIENT NOT FASTINGP ERFORMED BY: TOBIN [facility] [id number] [facility] [id number] Vital Signs Date Time Vital Sign Value Performing Clinician Facility 09-18-2024 07:59-0400 Body height 170.[address] Lisa Ziegler DO Work Phone: [facility] 09-18-2024 07:59-0400 Body mass index (BMI) [Ratio] 31.8 kg/m2 Dr. Lisa Ziegler DO Work Phone: [facility] 09-18-2024 07:59-0400 Body weight 92.[address] Lisa Ziegler DO Work Phone: [facility] 09-18-2024 07:59-0400 Diastolic blood pressure 81 mm[Hg] Dr. Lisa Ziegler DO Work Phone: [facility] 09-18-2024 07:59-0400 Systolic blood pressure 126 mm[Hg] Dr. Lisa Ziegler DO Work Phone: [facility] 01-20-2023 08:27-0400 Body height 167.64 cm Isabel Guillen LPN [facility]; [facility] Work Phone: 01-20-2023 08:27-0400 Body mass index (BMI) [Ratio] 34.86 kg/m2 Isabel Guillen LPN [facility]; [facility] Work Phone: 01-20-2023 08:27-0400 Body surface area Derived from formula 2.07 m2 Isabel Guillen LPN [facility]; [facility] Work Phone: 01-20-2023 08:27-0400 Body temperature 98.1 [degF] Isabel Guillen LPN [facility]; [facility] Work Phone: 01-20-2023 08:27-0400 Body weight 97.98 kg Isabel Guillen LPN [facility]; [...] 01-14-2023 07:27-0400 Diastolic blood pressure 78 mm[Hg] CHRISTIANOCARLTON Gonzalez LPN [facility]; [facility] Work Phone: 01-14-2023 07:27-0400 Heart rate 80 /min CHRISTIANO Carlos PACHECO [facility]; [facility] Work Phone: 01-14-2023 07:27-0400 Respiratory rate 20 /min CHRISTIANO Gonzalez [employer] Comprehensiv e Internal [facility]; [facility] Work Phone: 01-14-2023 07:27-0400 SaO2% (BldA) [Mass fraction] 98 % CHRISTIANOCARLTON Gonzalez LPN [facility]; [facility] Work Phone: 01-14-2023 07:27-0400 Systolic blood pressure 120 mm[Hg] CHRISTIANO Carlos TARA [facility]; [facility] Work Phone: 09-11-2022 07:32-0400 Body height 167.64 cm Isabel Guillen LPN [facility]; [facility] Work Phone: 09-11-2022 07:32-0400 Body mass index (BMI) [Ratio] 34.06 kg/m2 Isabel Guillen LPN [facility]; [facility] Work Phone: 09-11-2022 07:32-0400 Body surface area Derived from formula 2.05 m2 Isabel Guillen LPN [facility]; [facility] Work Phone: 09-11-2022 07:32-0400 Body temperature 97.4 [degF] Isabel Guillen LPN [facility]; [facility] Work Phone: 09-11-2022 07:32-0400 Body weight 95.71 kg Isabel Guillen LPN [facility]; [facility] Work Phone: 09-11-2022 07:32-0400 Diastolic blood pressure 78 mm[Hg] Isabel Guillen LPN [facility]; [facility] Work Phone: 09-11-2022 07:32-0400 Heart rate 88 /min Isabel Guillen LPN [facility]; [facility] Work Phone: 09-11-2022 07:32-0400 Respiratory rate 16 /min Isabel Guillen LPN [facility]; [facility] Work Phone: 09-11-2022 07:32-0400 SaO2% (BldA) [Mass fraction] 99 % Isabel Guillen LPN [facility]; [facility] Work Phone: 09-11-2022 07:32-0400 Systolic blood pressure 116 mm[Hg] Isabel Guillen LPN [facility]; [facility] Work Phone: 08-20-2022 08:14-0400 Body height 170.[address] Lisa Ziegler Work Phone: [facility] 08-20-2022 08:08-0400 Body mass index (BMI) [Ratio] 33.4 kg/m2 Dr. Lisa Ziegler Work Phone: [facility] 08-20-2022 08:08-0400 Body weight 96.[address] Lisa Ziegler Work Phone: [facility] 08-20-2022 08:08-0400 Diastolic blood pressure 84 mm[Hg] Dr. Lisa Ziegler Work Phone: [facility] 08-20-2022 08:08-0400 Systolic blood pressure 136 mm[Hg] Dr. Lisa Ziegler Work Phone: [facility] 04-03-2022 07:58-0500 Body height 167.64 cm Eliecer [...] Phone: 04-03-2022 07:58-0500 Body weight 96.89 kg Eliecer Youssef LPN [facility]; [...] 03-13-2022 08:09-0500 Respiratory rate 16 /min Eliecer Mikael [facility]; [facility] Work Phone: 03-13-2022 08:09-0500 SaO2% (BldA) [Mass fraction] 98 % Eliecer Mikael [facility]; [facility] Work Phone: 03-13-2022 08:09-0500 Systolic blood pressure 126 mm[Hg] Eliecer Youssef [facility]; [facility] Work Phone: 08-12-2021 08:24-0400 Body height 170.[address] Lisa Ziegler Work Phone: [facility] Work Phone: 08-12-2021 08:24-0400 Body mass index (BMI) [Ratio] 32.6 kg/m2 Dr. Lisa Ziegler Work Phone: [facility] Work Phone: 08-12-2021 08:24-0400 Body weight 94.[address] Lisa Ziegler Work Phone: [facility] Work Phone: 08-12-2021 08:24-0400 Diastolic blood pressure 76 mm[Hg] Dr. Lisa Ziegler Work Phone: [facility] Work Phone: 08-12-2021 08:24-0400 Systolic blood pressure 114 mm[Hg] Dr. Lisa Ziegler Work Phone: [facility] Work Phone: 06-16-2021 05:47-0500 Body mass index (BMI) [Ratio] 32.7 kg/m2 Dr. Lisa Ziegler Work Phone: [facility] Work Phone: 06-16-2021 05:47-0500 Body temperature 97.2 [degF] Dr. Lisa Ziegler Work Phone: [facility] Work Phone: 06-16-2021 05:47-0500 Body weight 94.[address] Lisa Ziegler Work Phone: [facility] Work Phone: 06-16-2021 05:47-0500 Diastolic blood pressure 74 mm[Hg] Dr. Lisa Ziegler Work Phone: [facility] Work Phone: 06-16-2021 05:47-0500 Heart rate 99 /min Dr. Lisa Ziegler Work Phone: [facility] Work Phone: 06-16-2021 05:47-0500 Respiratory rate 18 /min Dr. Lisa Ziegler Work Phone: [facility] Work Phone: 06-16-2021 05:47-0500 SaO2% (BldA) [Mass fraction] 98 % Dr. Lisa Ziegler Work Phone: [facility] Work Phone: 06-16-2021 05:47-0500 Systolic blood pressure 132 mm[Hg] Dr. Lisa Ziegler Work Phone: [facility] Work Phone: 04-03-2021 07:59-0500 Body height 167.64 [...] 04-03-2021 07:59-0500 Body temperature 97.3 [degF] Isabel Slarb [employer] [facility]; [facility] Work Phone: 04-03-2021 07:59-0500 Body weight 94.46 kg Isabel Slarb [employer] [facility]; [facility] Work Phone: 04-03-2021 07:59-0500 Diastolic blood pressure 82 mm[Hg] Isabel Slarb [employer] [facility]; [facility] Work Phone: 04-03-2021 07:59-0500 Heart rate 95 /min Isabel Slarb [employer] [facility]; [facility] Work Phone: 04-03-2021 07:59-0500 Respiratory rate 17 /min Isabel Slarb [employer] [facility]; [facility] Work Phone: 04-03-2021 07:59-0500 SaO2% (BldA) [Mass fraction] 95 % Isabel Slarb [employer] [facility]; [facility] Work Phone: 04-03-2021 07:59-0500 Systolic blood pressure 130 mm[Hg] Isabel Slarb [employer] [facility]; [facility] Work Phone: 12-02-2020 11:48-0400 Body height 167.64 cm Samara Bruce [facility]; [facility] Work Phone: 12-02-2020 11:48-0400 Body mass index (BMI) [Ratio] 33.47 kg/m2 Samara Bruce [facility]; [facility] Work Phone: 12-02-2020 11:48-0400 Body surface area Derived from formula 2.03 m2 Samara Bruce [facility]; [facility] Work Phone: 12-02-2020 11:48-0400 Body temperature 97 [degF] Samara Bruce [facility] Comprehensiv e Internal Medicine; [facility] Work Phone: 12-02-2020 11:48-0400 Body weight 94.07 kg Samara Bruce [facility]; [facility] Work Phone: 12-02-2020 11:48-0400 Diastolic blood pressure 78 mm[Hg] Samara Bruce [facility]; [facility] Work Phone: 12-02-2020 11:48-0400 Heart rate 91 /min Samara Bruce [facility]; [facility] Work Phone: 12-02-2020 11:48-0400 Respiratory rate 18 /min Samara Bruce [facility] Comprehensiv e Internal Medicine; [facility] Work Phone: 12-02-2020 11:48-0400 SaO2% (BldA) [Mass fraction] 97 % Samara Bruce [facility]; [facility] Work Phone: 12-02-2020 11:48-0400 Systolic blood pressure 122 mm[Hg] Samara Bruce [facility]; [facility] Work Phone: 07-19-2020 07:42-0400 BMI (Body Mass Index) 32.66 kg/m2 Lisa Ziegler [facility]; [facility] Work Phone: Comment on above: Rechecked BP 136/78 07-19-2020 07:42-0400 Body Temperature 96.6 [degF] Lisa Ming [facility]; [facility] Work Phone: Comment on above: Method: Infrared Rechecked BP 136/78 07-19-2020 07:42-0400 Body weight 91.8 kg Lisa Ziegler [facility]; [facility] Work Phone: Comment on above: Rechecked BP 136/78 07-19-2020 07:42-0400 BP Diastolic 98 mm[Hg] Lisa Ziegler [facility]; [facility] Work Phone: Comment on above: Patient Position: Sitting; Cuff Location : Left Arm; Cuff Size: Standard Rechecked BP 136/78 07-19-2020 07:42-0400 BP Systolic 152 mm[Hg] Lisa Ziegler [facility]; [facility] Work Phone: Comment on above: Patient Position: Sitting; Cuff Location : Left Arm; Cuff Size: Standard Rechecked BP 136/78 07-19-2020 07:42-0400 BSA (Body Surface Area) 2.01 m2 Lisa Ming [facility]; [facility] Work Phone: Comment on above: Rechecked BP 136/78 07-19-2020 07:42-0400 Height 167.64 cm Lisa Ziegler [facility]; [facility] Work Phone: Comment on above: Rechecked BP 136/78 07-19-2020 07:42-0400 Pulse (Heart Rate) 77 /min Lisa Ming [facility]; [facility] Work Phone: Comment on above: Pattern: Regular Rechecked BP 136/78 07-19-2020 07:42-0400 Pulse Oximetry 99 % Lisa Ziegler [facility]; [facility] Work Phone: Comment on above: Room air Rechecked BP 136/78 07-19-2020 07:42-0400 Respiratory Rate 16 /min Lisayue Ziegler [facility]; [facility] Work Phone: Comment on above: Pattern: Unlabored Rechecked BP 136/78 07-19-2020 07:42-0400 SaO2% (BldA) [Mass fraction] 99 % Lisa Ziegler DO Work Phone: [facility]; [facility] Work Phone: 12-22-2019 11:19-0400 BMI (Body Mass Index) 31.86 kg/m2 Eliecer Youssef LPN [facility] Work Phone: 12-22-2019 11:19-0400 Body weight 89.53 kg Eliecer Youssef LPN [facility] Work Phone: 12-22-2019 11:19-0400 BSA (Body Surface Area) 1.99 m2 Eliecer Youssef [employer] [facility] Work Phone: 12-22-2019 11:19-0400 Height 167.64 cm Eliecer Youssef [facility] Work Phone: 09-12-2019 10:33-0400 BMI (Body Mass Index) 31.86 kg/m2 Lisa Ziegler [facility] Work Phone: 09-12-2019 10:33-0400 Body Temperature 98.3 [degF] Lisa Ziegler [facility] Work Phone: Comment on above: Method: Temporal 09-12-2019 10:33-0400 Body weight 89.53 kg Lisa Ziegler [facility] Work Phone: 09-12-2019 10:33-0400 BP [...] 09-12-2019 10:33-0400 Height 167.64 cm Lisa Ziegler [facility] Work Phone: 09-12-2019 10:33-0400 Pulse (Heart Rate) 92 /min Lisa Ziegler [facility] Work Phone: Comment on above: Pattern: Regular 09-12-2019 10:33-0400 Pulse Oximetry 97 % Lisa Ziegler [facility] Work Phone: Comment on above: Room air 09-12-2019 10:33-0400 Respiratory Rate 16 /min Lisa Ziegler [facility] Work Phone: Comment on above: Pattern: Unlabored 09-12-2019 10:33-0400 SaO2% (BldA) [Mass fraction] 97 % Lisa Ziegler DO Work Phone: [facility]; [facility] Work Phone: 09-04-2019 08:57-0400 BMI (Body Mass Index) 32.28 kg/m2 Eliecer Youssef LPN [facility] Work Phone: 09-04-2019 08:57-0400 Body Temperature 98.2 [degF] Eliecer Youssef LPN [facility] Work Phone: Comment on above: Method: Temporal 09-04-2019 08:57-0400 Body weight 90.72 kg Eliecer Youssef LPN [facility] Work Phone: 09-04-2019 08:57-0400 BP Diastolic 80 mm[Hg] Eliecer Youssef [employer] [facility] Work Phone: Comment on above: Patient Position: Sitting; Cuff Location : Left Arm; Cuff Size: Standard 09-04-2019 08:57-0400 BP Systolic 162 mm[Hg] Eliecer Youssef LPN [facility] Work Phone: Comment on above: Patient Position: Sitting; Cuff Location : Left Arm; Cuff Size: Standard 09-04-2019 08:57-0400 BSA (Body Surface Area) 2 m2 Eliecer Youssef LPN [facility] Work Phone: 09-04-2019 08:57-0400 Height 167.64 cm Eliecer Youssef LPN [facility] Work Phone: 09-04-2019 08:57-0400 Pulse (Heart Rate) 94 /min Eliecer Youssef LPN Com[facility] Internal Medicine Work Phone: Comment on above: Pattern: Regular 09-04-2019 08:57-0400 Pulse Oximetry 97 % Lisa Ziegler [facility] Internal Medicine Work Phone: Comment on above: Room air 09-04-2019 08:57-0400 Respiratory Rate 16 /min Eliecer Youssef LPN [facility] Internal Medicine Work Phone: Comment on above: Pattern: Unlabored 09-04-2019 08:57-0400 SaO2% (BldA) [Mass fraction] 97 % Eliecer Youssef LPN [facility] Internal Medicine; [facility] Work Phone: 08-30-2019 08:30-0400 BMI (Body Mass Index) 32.76 kg/m2 Isabel Guillen EDGER HAND [facility] Internal Medicine Work Phone: Comment on above: pt did not report 08-30-2019 08:30-0400 Body weight 92.08 kg Isabel Gomezrb EDGER HAND [facility] Internal Medicine Work Phone: Comment on above: pt did not report 08-30-2019 08:30-0400 BSA (Body Surface Area) 2.01 m2 Isabel Slarb EDGER HAND [facility] Internal Medicine Work Phone: Comment on above: pt did not report 08-30-2019 08:30-0400 Height 167.64 cm Isabel Gomezrb [facility] Internal Medicine Work Phone: Comment on above: pt did not report 07-21-2019 07:36-0400 BMI (Body Mass Index) 32.76 kg/m2 Samara Albrightius [facility] Internal Medicine Work Phone: 07-21-2019 07:36-0400 Body Temperature 97.2 [degF] Samara Nataleeius [facility] Comprehens e Internal Medicine Work Phone: Comment on above: Method: Temporal 07-21-2019 07:36-0400 Body weight 92.08 kg Samara Nataleeius [facility] Internal Medicine Work Phone: 07-21-2019 07:36-0400 BP Diastolic 70 mm[Hg] Samara Nataleeius [facility] Internal Medicine Work Phone: Comment on above: Patient Position: Sitting; Cuff Location : Left Arm; Cuff Size: Standard 07-21-2019 07:36-0400 BP Systolic 123 mm[Hg] Samara Gravius [facility] Internal Medicine Work Phone: Comment on above: Patient Position: Sitting; Cuff Location : Left Arm; Cuff Size: Standard 07-21-2019 07:36-0400 BSA (Body Surface Area) 2.01 m2 Samara Gravius [facility] Internal Medicine Work Phone: 07-21-2019 07:36-0400 Height 167.64 cm Samara Gravius [facility] Internal Medicine Work Phone: 07-21-2019 07:36-0400 Pulse (Heart Rate) 86 /min Samara Bruce [employer] [facility] Internal Medicine Work Phone: Comment on above: Pattern: Regular 07-21-2019 07:36-0400 Pulse Oximetry 96 % Lisa Ziegler [facility] Work Phone: Comment on above: Room air 07-21-2019 07:36-0400 Respiratory Rate 16 /min Samara Bruce [employer] Comprehensiv e Internal Medicine Work Phone: Comment on above: Pattern: Unlabored 07-21-2019 07:36-0400 SaO2% (BldA) [Mass fraction] 96 % Samara Bruce [facility] Medicine; [facility] Work Phone: 03-14-2019 09:32-0500 BMI (Body Mass Index) 34.54 kg/m2 Isabel Slarb EDGER HAND [facility] Work Phone: Comment on above: Standing BP 92/58 Pulse 115 03-14-2019 09:32-0500 Body Temperature 99.1 [degF] Isabel Slarb EDGER HAND [facility] Work Phone: Comment on above: Standing BP 92/58 Pulse 115 03-14-2019 09:32-0500 Body weight 97.07 kg Isabel Slarb EDGER HAND [facility] Work Phone: Comment on above: Standing BP 92/58 Pulse 115 03-14-2019 09:32-0500 BP Diastolic 62 mm[Hg] Isabel Slarb EDGER HAND [facility] Work Phone: Comment on above: Patient Position: Sitting; Cuff Location : Left Arm; Cuff Size: Standard Standing BP 92/58 Pu lse 115 03-14-2019 09:32-0500 BP Systolic 102 mm[Hg] Isabel Slarb EDGER HAND [facility] Work Phone: Comment on above: Patient Position: Sitting; Cuff Location : Left Arm; Cuff Size: Standard Standing BP 92/58 Pu lse 115 03-14-2019 09:32-0500 BSA (Body Surface Area) 2.06 m2 Isabel Slarb EDGER HAND [facility] Work Phone: Comment on above: Standing BP 92/58 Pulse 115 03-14-2019 09:32-0500 Height 167.64 cm Isabel Slarb EDGER HAND [facility] Work Phone: Comment on above: Standing BP 92/58 Pulse 115 03-14-2019 09:32-0500 Pulse (Heart Rate) 106 /min Isabel Patriciarb EDGER HAND Comprehens[facility] e Internal Medicine Work Phone: Comment on above: Pattern: Regular Standing BP 92/58 Pu lse 115 03-14-2019 09:32-0500 Respiratory Rate 16 /min Isabel Slarb EDGER HAND [facility] Work Phone: Comment on [...] (Body Mass Index) 32.68 kg/m2 Catherine Bruno [facility] Work Phone: 02-01-2018 08:44-0400 Body Temperature 97.4 [degF] Catherine Bruno [facility] Work Phone: Comment on above: Method: Axillary 02-01-2018 08:44-0400 Body weight 91.85 kg Catherine Bruno [facility] Internal Medicine Work Phone: 02-01-2018 08:44-0400 BP Diastolic 80 mm[Hg] Catherine Bruno [facility] Work Phone: Comment on above: Patient Position: Sitting; Cuff Location : Left Arm; Cuff Size: Standard 02-01-2018 08:44-0400 BP Systolic 118 mm[Hg] Catherine Bruno [facility] Work Phone: Comment on above: Patient Position: Sitting; Cuff Location : Left Arm; Cuff Size: Standard 02-01-2018 08:44-0400 BSA (Body Surface Area) 2.01 m2 Catherine Bruno [facility] Internal Medicine Work Phone: 02-01-2018 08:44-0400 Height 167.64 cm Catherine Bruno [facility] Internal Medicine Work Phone: 02-01-2018 08:44-0400 Pulse (Heart Rate) 89 /min Catherine Bruno [facility] Internal Medicine Work Phone: Comment on above: Pattern: Regular 02-01-2018 08:44-0400 Pulse Oximetry 98 % Lisa Ziegler [facility] Work Phone: Comment on above: Room air 02-01-2018 08:44-0400 Respiratory Rate 17 /min Catherine Bruno [facility] Internal Medicine Work Phone: Comment on above: Pattern: Unlabored 02-01-2018 08:44-0400 SaO2% (BldA) [Mass fraction] 98 % Catherine Bruno [facility] Internal Medicine; [facility] Work Phone: 01-26-2018 09:27-0400 BMI (Body Mass Index) 33.41 kg/m2 Catherine Bruno [facility] Internal Medicine Work Phone: 01-26-2018 09:27-0400 Body Temperature 97 [degF] Catherine Bruno [facility] Internal Medicine Work Phone: Comment on above: Method: Temporal 01-26-2018 09:27-0400 Body weight 93.9 kg Catherine Bruno [facility] Internal Medicine Work Phone: 01-26-2018 09:27-0400 BP Diastolic 86 mm[Hg] Catherine Bruno [facility] Internal Medicine Work Phone: Comment on above: Patient Position: Sitting; Cuff Location : Left Arm; Cuff Size: Standard 01-26-2018 09:27-0400 BP Systolic 128 mm[Hg] Catherine Bruno [facility] Internal Medicine Work Phone: Comment on above: Patient Position: Sitting; Cuff Location : Left Arm; Cuff Size: Standard 01-26-2018 09:27-0400 BSA (Body Surface Area) 2.03 m2 Catherine Bruno [facility] Internal Medicine Work Phone: 01-26-2018 09:27-0400 Height 167.64 cm Catherine Bruno [facility] Internal Medicine Work Phone: 01-26-2018 09:27-0400 Pulse (Heart Rate) 98 /min Catherine Bruno [facility] Internal Medicine Work Phone: Comment on above: Pattern: Regular 01-26-2018 09:27-0400 Pulse Oximetry 97 % Lisa Ziegler [facility] Internal Medicine Work Phone: Comment on above: Room air 01-26-2018 09:27-0400 Respiratory Rate 16 /min Catherine Bruno [facility] Internal Medicine Work Phone: Comment on above: Pattern: Unlabored 01-26-2018 09:27-0400 SaO2% (BldA) [Mass fraction] 97 % Catherine Bruno [facility]; [facility] Work Phone: 01-21-2018 11:03-0400 BMI (Body Mass Index) 33.41 kg/m2 No Mills RN [facility] Work Phone: Comment on above: sitting 110/80, 83standing 120/85, 75 01-21-2018 11:03-0400 Body Temperature 98.1 [degF] No [...] Size: Standard sitting 110/80, 83st anding 120/85, 75 01-21-2018 11:03-0400 BSA (Body Surface Area) 2.03 [...] Pattern: Regular sitting 110/80, 83st anding 120/85, 75 01-21-2018 11:03-0400 Pulse Oximetry 97 % Lisa Ziegler [facility] Work Phone: Comment on above: Room air sitting 110/80, 83st anding 120/85, 75 01-21-2018 11:03-0400 Respiratory Rate 16 /min No [...] 07:120400 BSA (Body Surface Area) 1.98 m2 Janlele Go RN [facility] Work Phone: 03-04-2017 07:120400 Height 167.64 cm Janelle Go RN [facility] Work Phone: 03-04-2017 07:12-0400 Pulse (Heart Rate) 84 /min Janelle Go RN Comprehens [facility] Internal Medicine Work Phone: Comment on above: Pattern: Regular 03-04-2017 07:12-0400 Pulse Oximetry 95 % Lisa Ming [facility] Work Phone: Comment on above: Room air 03-04-2017 07:12-0400 Respiratory Rate 18 /min Janelle Go RN Comprehensiv e Internal Medicine Work Phone: Comment on above: Pattern: Unlabored 03-04-2017 07:12-0400 SaO2% (BldA) [Mass fraction] 95 % Janelle Go RN [facility]; [facility] Work Phone: 02-26-2017 08:23-0400 BMI (Body Mass Index) 30.73 kg/m2 Katey Elizabeth MD [facility] 02-26-2017 08:23-0400 Body Temperature 97.8 [degF] Katey Elizabeth MD [facility] 02-26-2017 08:23-0400 Body Temperature 97.81 [degF] Katey Elizabeth MD [facility] 02-26-2017 08:23-0400 BP Diastolic 74 mm[Hg] Katey Elizabeth MD [facility] 02-26-2017 08:23-0400 BP Systolic 114 mm[Hg] Katey Elizabeth MD [facility] 02-26-2017 08:23-0400 Height 167.64 cm Katey Elizabeth MD [facility] 02-26-2017 08:23-0400 Pulse (Heart Rate) 91 /min Katey Elizabeth MD [facility] 02-26-2017 08:23-0400 Respiratory Rate 16 /min Katey Elizabeth MD [facility] 02-26-2017 08:23-0400 Weight 86.37 kg Katey Elizabeth MD [facility] 02-26-2017 08:23-0400 Weight 86.36 kg Katey Elizabeth MD [facility] 02-25-2017 10:27-0400 BMI (Body Mass Index) 30.4 kg/m2 Janelle Go RN [facility] Work Phone: 02-25-2017 10:27-0400 Body Temperature 98.1 [degF] Janelle Go RN Comprehensiv e Internal Medicine Work Phone: Comment on above: Method: Temporal 02-25-2017 10:27-0400 Body weight 85.45 kg Janelle Go RN [...] [facility] Work Phone: 12-24-2016 07:24-0400 Height 167.64 cm Janelle Go RN [facility] [...] 12-04-2016 11:58-0400 Pulse Oximetry 97 % Lisa Ziegler [facility] [...] Work Phone: 12-03-2016 09:17-0400 Height 167.64 cm No Mills RN Comprehensive [...] 08-28-2016 07:06-0400 Pulse Oximetry 97 % Lisa Ziegler [facility] [...] BMI (Body Mass Index) 29.86 kg/m2 Yanique Crum [facility] Internal Medicine Work Phone: 05-05-2016 08:29-0500 Body Temperature 97.3 [degF] Yanique Crum [facility] Internal Medicine Work Phone: Comment on above: Method: Temporal 05-05-2016 08:29-0500 Body weight 83.92 kg Yanique Crum [facility] Internal Medicine Work Phone: 05-05-2016 08:29-0500 BP Diastolic 80 mm[Hg] Yanique Crum [facility] Internal Medicine Work Phone: Comment on above: Patient Position: Sitting; Cuff Location : Left Arm; Cuff Size: Standard 05-05-2016 08:29-0500 BP Systolic 120 mm[Hg] Yanique Crum [facility] Internal Medicine Work Phone: Comment on above: Patient Position: Sitting; Cuff Location : Left Arm; Cuff Size: Standard 05-05-2016 08:29-0500 BSA (Body Surface Area) 1.94 m2 Yanique Crum [facility] Internal Medicine Work Phone: 05-05-2016 08:29-0500 Height 167.64 cm Yanique Forrester Internal Medicine Work Phone: 05-05-2016 08:29-0500 Pulse (Heart Rate) 72 /min Yaniuqe Friedmanensiv e Internal Medicine Work Phone: Comment on above: Pattern: Regular 05-05-2016 08:29-0500 Pulse Oximetry 98 % Lisa Ziegler [facility] Work Phone: Comment on above: Room air 05-05-2016 08:29-0500 Respiratory Rate 16 /min Yanique Persaudjames [facility] Work Phone: Comment on above: Pattern: Unlabored 05-05-2016 08:29-0500 SaO2% (BldA) [Mass fraction] 98 % Yanique Persaudimtiazdeysi [facility]; [facility] Work [...] 04-10-2016 10:12-0500 Pulse Oximetry 99 % Lisa Coronelon [facility] Work Phone: Comment on above: Room air 04-10-2016 10:12-0500 Respiratory Rate 16 /min No Mills RN [facility] Work Phone: Comment on above: Pattern: Unlabored 04-10-2016 10:12-0500 SaO2% (BldA) [Mass fraction] 99 % No Mills RN [facility]; [facility] Work Phone: 04-07-2016 09:17-0500 BMI (Body Mass Index) 29.78 kg/m2 Isabel Patriciarb EDGER HAND [facility] Work Phone: 04-07-2016 09:17-0500 Body Temperature 98.1 [degF] Isabel Patriciarb EDGER HAND [facility] Work Phone: 04-07-2016 09:17-0500 Body weight 83.69 kg Isabel Patriciarb EDGER HAND [facility] Work Phone: 04-07-2016 09:17-0500 BP Diastolic 80 mm[Hg] Isabel Slarb EDGER HAND [facility] Work Phone: Comment on above: Patient Position: Sitting; Cuff Location : Left Arm; Cuff Size: Standard 04-07-2016 09:17-0500 BP Systolic 122 mm[Hg] Isabel Patriciarb EDGER HAND [facility] Work Phone: Comment on above: Patient Position: Sitting; Cuff Location : Left Arm; Cuff Size: Standard 04-07-2016 09:17-0500 BSA (Body Surface Area) 1.93 m2 Isabel Patriciarb EDGER HAND [facility] Work Phone: 04-07-2016 09:17-0500 Height 167.64 cm Isabel Patriciarb EDGER HAND [facility] Work Phone: 04-07-2016 09:17-0500 Pulse (Heart Rate) 102 /min Isabel Patriciarb EDGER HAND Comprehensiv e Internal Medicine Work Phone: Comment on above: Pattern: Regular 04-07-2016 09:17-0500 Pulse Oximetry 94 % Lisa Ziegler [facility] Work Phone: Comment on above: Room air 04-07-2016 09:17-0500 Respiratory Rate 16 /min Isabel Patriciarb EDGER HAND [facility] Work Phone: Comment on above: Pattern: Unlabored 04-07-2016 09:17-0500 SaO2% (BldA) [Mass fraction] 94 % Isabel Slarb EDGER HAND [facility]; [facility] Work Phone: 03-02-2016 09:03-0400 BMI (Body Mass Index) 29.78 kg/m2 Isabel Slarb EDGER HAND [facility] Work Phone: 03-02-2016 09:03-0400 Body Temperature 97.7 [degF] Isabel Slarb EDGER HAND [facility] Work Phone: 03-02-2016 09:03-0400 Body weight 83.69 kg Isabel Slarb EDGER HAND [facility] Work Phone: 03-02-2016 09:03-0400 BP Diastolic 84 mm[Hg] Isabel Slarb EDGER HAND [facility] Work Phone: Comment on above: Patient Position: Sitting; Cuff Location : Left Arm; Cuff Size: Standard 03-02-2016 09:03-0400 BP Systolic 132 mm[Hg] Isabel Slarb EDGER HAND [facility] Work Phone: Comment on above: Patient Position: Sitting; Cuff Location : Left Arm; Cuff Size: Standard 03-02-2016 09:03-0400 BSA (Body Surface Area) 1.93 m2 Isabel Slarb EDGER HAND [facility] Work Phone: 03-02-2016 09:03-0400 Height 167.64 cm Isabel Slarb EDGER HAND [facility] Work Phone: 03-02-2016 09:03-0400 Pulse (Heart Rate) 75 /min Isabel Slarb EDGER HAND Comprehensiv e Internal Medicine Work Phone: Comment on above: Pattern: Regular 03-02-2016 09:03-0400 Pulse Oximetry 99 % Lisa Ziegler [facility] Work Phone: Comment on above: Room air 03-02-2016 09:03-0400 Respiratory Rate 18 /min Isabel Slarb EDGER HAND [facility] Work Phone: Comment on [...] : Left Arm; Cuff Size: Large 08-15-2015 08:140400 BSA (Body Surface Area) 1.97 m2 Janelle Go RN [facility] Work Phone: 08-15-2015 08:140400 Height 167.64 cm Janelle Go RN Comprehensive [...] (Body Mass Index) 30.85 kg/m2 Isabel Slarb EDGER HAND [facility] Work Phone: 07-08-2015 09:19-0500 Body weight 86.69 kg Isabel Slarb EDGER HAND [facility] Work Phone: 07-08-2015 09:19-0500 BP Diastolic 64 mm[Hg] Isabel Slarb EDGER HAND [facility] Work Phone: Comment on above: Patient Position: Sitting; Cuff Location : Left Arm; Cuff Size: Standard 07-08-2015 09:19-0500 BP Systolic 108 mm[Hg] Isabel Slarb EDGER HAND [facility] Work Phone: Comment on above: Patient Position: Sitting; Cuff Location : Left Arm; Cuff Size: Standard 07-08-2015 09:19-0500 BSA (Body Surface Area) 1.96 m2 Isabel Guillen LPN [facility] Work Phone: 07-08-2015 09:19-0500 Height 167.64 cm Isabel Guillen LPN [facility] Work Phone: 06-07-2015 [...] 12:04-0500 BP Diastolic 80 mm[Hg] Maricarmen Cordova LPN [facility] Work Phone: Comment on above: Patient Position: Sitting; Cuff Location : Left Arm; Cuff Size: Standard 06-07-2015 12:04-0500 BP Systolic 128 mm[Hg] Maricarmen Cordova LPN [facility] Work Phone: Comment on above: Patient Position: Sitting; Cuff Location : Left Arm; Cuff Size: Standard 06-07-2015 12:04-0500 BSA (Body Surface Area) 1.96 m2 Maricarmen Cordova LPN [facility] Work Phone: 06-07-2015 12:04-0500 Height 167.64 cm Maricarmen Cordova LPN [facility] Work Phone: 06-07-2015 12:04-0500 Pulse (Heart Rate) 76 /min Maricarmen Cordova LPN Comprehens [facility] Internal Medicine Work Phone: Comment on above: Pattern: Regular 06-07-2015 12:04-0500 Pulse Oximetry 97 % Lisa Ziegler [facility] Work Phone: Comment on above: Room air 06-07-2015 12:04-0500 Respiratory Rate 15 /min Maricarmen Cordova LPN Comprehensiv e Internal Medicine Work Phone: 06-07-2015 12:04-0500 SaO2% (BldA) [Mass fraction] 97 % Maricarmen Cordova EDGER HAND [facility]; [facility] Work Phone: 05-14-2015 08:17-0500 BMI (Body Mass Index) 30.85 kg/m2 Isabel Gomezrb EDGER HAND [facility] Work Phone: 05-14-2015 08:17-0500 Body Temperature 98.6 [degF] Isabel Patriciarb EDGER HAND [facility] Work Phone: 05-14-2015 08:17-0500 Body weight 86.69 kg Isabel Gomezrb EDGER HAND [facility] Work Phone: 05-14-2015 08:17-0500 BP Diastolic 76 mm[Hg] Isabel Patriciarb EDGER HAND [facility] Work Phone: Comment on above: Patient Position: Sitting; Cuff Location : Left Arm; Cuff Size: Standard 05-14-2015 08:17-0500 BP Systolic 132 mm[Hg] Isabel Patriciarb EDGER HAND [facility] Work Phone: Comment on above: Patient Position: Sitting; Cuff Location : Left Arm; Cuff Size: Standard 05-14-2015 08:17-0500 BSA (Body Surface Area) 1.96 m2 Isabel Patriciarb EDGER HAND [facility] Work Phone: 05-14-2015 08:17-0500 Height 167.64 cm Isabel Slarb EDGER HAND [facility] Work Phone: 05-14-2015 08:17-0500 Pulse (Heart Rate) 92 /min Isabel Patriciarb EDGER HAND Comprehensiv e Internal Medicine Work Phone: Comment on above: Pattern: Regular 05-14-2015 08:17-0500 Pulse Oximetry 97 % Lisa Ziegler [facility] Work Phone: Comment on above: Room air 05-14-2015 08:17-0500 Respiratory Rate 16 /min Isabel Slarb EDGER HAND [facility] Work Phone: Comment on above: Pattern: Unlabored 05-14-2015 08:17-0500 SaO2% (BldA) [Mass fraction] 97 % Isabelluna Guillen TARA [facility]; [facility] Work Phone: 04-23-2015 08:02-0500 BMI (Body Mass Index) 30.99 kg/m2 Maricarmen Cordova TARA [facility] Work Phone: 04-23-2015 08:02-0500 Body Temperature 98.6 [degF] Maricarmen Cordova TARA Comprehensiv e Internal Medicine Work Phone: Comment on above: Method: Oral 04-23-2015 08:02-0500 Body weight 87.09 kg Maricarmen Cordova TARA [facility] Work Phone: 04-23-2015 08:02-0500 BP Diastolic 72 mm[Hg] Maricarmen Cordova TAAR [facility] Work Phone: Comment on above: Patient Position: Sitting; Cuff Location : Left Arm; Cuff Size: Standard 04-23-2015 08:02-0500 BP Systolic 122 mm[Hg] Maricarmen Cordova TARA [facility] Work Phone: Comment on above: Patient Position: Sitting; Cuff Location : Left Arm; Cuff Size: Standard 04-23-2015 08:02-0500 BSA (Body Surface Area) 1.97 m2 Maricarmen Peñamargaret PACHECO [facility] Work Phone: 04-23-2015 08:02-0500 Height 167.64 cm Maricarmen Cordova TARA [facility] Work Phone: 04-23-2015 08:02-0500 Pulse (Heart Rate) 82 /min Maricarmen Cordova EDGER HAND Comprehens [facility] Internal Medicine Work Phone: Comment [...] 04-09-2015 12:58-0500 Pulse Oximetry 97 % Lisa Coronelon [facility] [...] (Body Mass Index) 31.19 kg/m2 Berta Moon [facility] Internal Medicine Work Phone: 02-21-2015 10:190400 Body Temperature 98.5 [degF] Berta Moon [facility] Internal Medicine Work Phone: Comment on above: Method: Tympanic 02-21-2015 10:190400 Body weight 87.66 kg Berta Moon [facility] Internal Medicine Work Phone: 02-21-2015 10:19-0400 BP Diastolic 76 mm[Hg] Berta Moon [facility] Internal Medicine Work Phone: Comment on above: Patient Position: Sitting; Cuff Location : Left Arm; Cuff Size: Standard 02-21-2015 10:19-0400 BP Systolic 140 mm[Hg] Berta Moon [facility] Internal Medicine Work Phone: Comment on above: Patient Position: Sitting; Cuff Location : Left Arm; Cuff Size: Standard 02-21-2015 10:190400 BSA (Body Surface Area) 1.97 m2 Berta Moon [facility] Internal Medicine Work Phone: 02-21-2015 10:190400 Height 167.64 cm Berta Moon [facility] Internal Medicine Work Phone: 02-21-2015 10:19-0400 Pulse (Heart Rate) 88 /min Berta Moon [facility] Internal Medicine Work Phone: Comment on above: Pattern: Regular 02-21-2015 10:19-0400 Pulse Oximetry 98 % Lisa Ziegler [facility] Internal Medicine Work Phone: Comment on above: Room air 02-21-2015 10:19-0400 Respiratory Rate 18 /min Berta Moon [facility] Internal Medicine Work Phone: Comment on above: Pattern: Unlabored 02-21-2015 10:19-0400 SaO2% (BldA) [Mass fraction] 98 % Berta Moon [facility] Internal Medicine; [...] 07-02-2014 09:32-0500 Pulse Oximetry 98 % Lisa Ming [facility] Work Phone: Comment on above: Room air 07-02-2014 09:32-0500 Respiratory Rate 18 /min Janelle Go RN Comprehensiv e Internal Medicine Work Phone: Comment on above: Pattern: Unlabored 07-02-2014 09:32-0500 SaO2% (BldA) [Mass fraction] 98 % Janelle Go RN [facility]; [facility] Work Phone: 02-20-2014 08:130400 BMI (Body Mass Index) 30.11 kg/m2 Maricarmen Cordova LPN [facility] Work Phone: 02-20-2014 08:130400 Body Temperature 96.7 [degF] Maricarmen Cordova LPN Comprehens[facility] e Internal Medicine Work Phone: Comment on above: Method: Oral 02-20-2014 08:130400 Body weight 84.62 kg Maricaremn Cordova LPN [facility] Work Phone: 02-20-2014 08:13-0400 BP Diastolic 72 mm[Hg] Maricarmen Cordova LPN [facility] Work Phone: Comment on above: Patient Position: Sitting; Cuff Location : Left Arm; Cuff Size: Standard 02-20-2014 08:13-0400 BP Systolic 120 mm[Hg] Maricarmen Cordova TARA [facility] Work Phone: Comment on above: Patient Position: Sitting; Cuff Location : Left Arm; Cuff Size: Standard 02-20-2014 08:13-0400 BSA (Body Surface Area) 1.94 m2 Maricarmen Cordova TARA [facility] Work Phone: 02-20-2014 08:13-0400 Height 167.64 cm Maricarmen Cordova TARA [facility] Work Phone: 02-20-2014 08:13-0400 [...] 08:12-0500 BMI (Body Mass Index) 32.01 kg/m2 Maricarmenfaraz Cordova LPN [facility] Work Phone: 05-02-2013 08:12-0500 Body Temperature 98.8 [degF] Maricarmen Art PACHECO [facility] Work Phone: Comment on above: Method: Oral 05-02-2013 08:12-0500 Body weight 89.95 kg Maricarmen Art PACHECO [facility] Work Phone: 05-02-2013 08:12-0500 BP Diastolic 78 mm[Hg] Maricarmen Art PACHECO [facility] Work Phone: Comment on above: Patient Position: Sitting; Cuff Location : Left Arm; Cuff Size: Standard 05-02-2013 08:12-0500 BP Systolic 122 mm[Hg] Maricarmen Cordova TARA [facility] Work Phone: Comment on above: Patient Position: Sitting; Cuff Location : Left Arm; Cuff Size: Standard 05-02-2013 08:12-0500 BSA (Body Surface Area) 1.99 m2 Maricarmen Art PACHECO [facility] Work Phone: 05-02-2013 08:12-0500 Height 167.64 cm Maricarmen Art PACHECO [facility] Work Phone: 05-02-2013 08:12-0500 Pulse (Heart Rate) 88 /min Maricarmen Cordova TARA [facility] Work Phone: Comment on above: Pattern: Regular 05-02-2013 08:12-0500 Pulse Oximetry 97 % Lisa Ziegler [facility] Work Phone: Comment on above: Room air 05-02-2013 08:12-0500 Respiratory Rate 17 /min Maricarmen Cordova TARA [facility] Work Phone: 05-02-2013 08:12-0500 SaO2% (BldA) [Mass fraction] 97 % Maricarmen Cordova TARA [facility]; [facility] Work Phone: 04-28-2013 11:34-0500 BMI (Body Mass Index) 32.01 kg/m2 Ruby Do [facility] Work Phone: 04-28-2013 11:34-0500 Body weight 89.95 kg Ruby Do [facility] Work Phone: 04-28-2013 11:34-0500 BP Diastolic 70 mm[Hg] Ruby Do [facility] Work Phone: Comment on above: Patient Position: Sitting; Cuff Location : Left Arm; Cuff Size: Standard 04-28-2013 11:34-0500 BP Systolic 120 mm[Hg] Ruby Do [facility] Work Phone: Comment on above: Patient Position: Sitting; Cuff Location : Left Arm; Cuff Size: Standard 04-28-2013 11:34-0500 BSA (Body Surface Area) 1.99 m2 Ruby Do [facility] Work Phone: 04-28-2013 11:34-0500 Height 167.64 cm [facility]: 04-28-2013 11:34-0500 Pulse (Heart Rate) 85 /min [facility] Work Phone: Comment on above: Pattern: Regular 04-28-2013 11:34-0500 Pulse Oximetry 98 % Lisa Ziegler [facility] Medicine Work Phone: Comment on above: Room air 04-28-2013 11:34-0500 Respiratory Rate 16 /min Ruby Do [facility] Work Phone: Comment on above: Pattern: Unlabored 04-28-2013 11:34-0500 SaO2% (BldA) [Mass fraction] 98 % Ruby Mantova TERAN [facility]; [facility] Work [...] Rate) 89 /min Janelle Go RN [facility] Work Phone: Comment on above: [...] (Body Mass Index) 31.8 kg/m2 Maricarmen Cordova TARA [facility] Work Phone: 01-30-2013 08:35-0400 Body Temperature 98.2 [degF] Maricarmen Cordova TARA [facility] Work Phone: Comment on above: Method: Oral 01-30-2013 08:35-0400 Body weight 89.36 kg Maricarmen Cordova TARA [facility] Work Phone: 01-30-2013 08:35-0400 BP Diastolic 82 mm[Hg] Maricarmen Cordova TARA [facility] [...] Cordova TARA [facility] Work Phone: 01-30-2013 08:35-0400 Height 167.64 cm Maricarmen Cordova TARA [facility] Work Phone: 01-30-2013 08:35-0400 Pulse (Heart Rate) 90 /min Maricarmen Cordova LPN [facility] Work Phone: Comment on above: Pattern: Regular 01-30-2013 08:35-0400 Respiratory Rate 20 /min Maricarmen Cordova LPN [facility] Work Phone: 12-26-2012 08:07-0400 BMI (Body Mass Index) 31.8 kg/m2 Maricarmen Cordova TARA [facility] Work [...] 08:07-0400 BP Systolic 138 mm[Hg] Maricarmen Cordova LPN [facility] Work Phone: Comment on above: Patient Position: Sitting; Cuff Location : Left Arm; Cuff Size: Standard 12-26-2012 08:07-0400 BSA (Body Surface Area) 1.99 m2 Maricarmen Cordova TARA [facility] Work Phone: 12-26-2012 08:07-0400 Height 167.64 cm Maricarmen Cordova LPN [facility] Work Phone: 12-26-2012 08:07-0400 Pulse (Heart Rate) 90 /min Maricarmen Cordova LPN [facility] Work Phone: Comment on above: Pattern: Regular 12-26-2012 08:07-0400 Pulse Oximetry 98 % Lisa Ziegler [facility] Work Phone: Comment on above: Room air 12-26-2012 08:07-0400 Respiratory Rate 20 /min Maricarmen Cordova LPN [facility] Work Phone: 12-26-2012 08:07-0400 SaO2% (BldA) [Mass fraction] 98 % Maricarmen Cordova TARA [facility]; [facility] Work [...] Phone: 05-31-2012 12:11-0500 BP Diastolic 74 mm[Hg] oN Mills RN [facility] Work [...] BMI (Body Mass Index) 32.77 kg/m2 Maricarmen Cordova LPN [facility] Work Phone: 02-09-2012 11:07-0400 Body Temperature 98.6 [degF] Maricarmen Art PACHECO [facility] Work Phone: Comment on above: Method: Oral 02-09-2012 11:07-0400 Body weight 92.11 kg Maricarmen Art PACHECO [facility] Work Phone: 02-09-2012 11:07-0400 BP Diastolic 78 mm[Hg] Maricarmen Cordova LPN [facility] Work Phone: Comment on above: Patient Position: Sitting; Cuff Location : Left Arm; Cuff Size: Standard 02-09-2012 11:07-0400 BP Systolic 138 mm[Hg] Maricarmen Cordova LPN [facility] Work Phone: Comment on above: Patient Position: Sitting; Cuff Location : Left Arm; Cuff Size: Standard 02-09-2012 11:07-0400 BSA (Body Surface Area) 2.01 m2 Maricarmen Cordova LPN [facility] Work Phone: 02-09-2012 11:07-0400 Height 167.64 cm Maricarmen Cordova LPN [facility] Work Phone: 02-09-2012 11:07-0400 Pulse (Heart Rate) 80 /min Maricarmen Cordova LPN [facility] Work Phone: Comment on above: Pattern: Regular 02-09-2012 11:07-0400 Pulse Oximetry 98 % Lisa Ziegler [facility] Work Phone: Comment on above: Room air 02-09-2012 11:07-0400 Respiratory Rate 20 /min Maricarmen Cordova LPN [facility] Work Phone: Comment on above: Pattern: Unlabored 02-09-2012 11:07-0400 SaO2% (BldA) [Mass fraction] 98 % Maricarmen Cordova LPN [facility]; [...] (Body Mass Index) 32.28 kg/m2 Maricarmen Cordova TARA [facility] Work Phone: 08-26-2011 08:57-0400 Body Temperature 98.6 [degF] Maricarmen Cordova TARA [facility] Work Phone: Comment on above: Method: Oral 08-26-2011 08:57-0400 Body weight 90.72 kg Maricarmen Cordova TARA [facility] Work Phone: 08-26-2011 08:57-0400 BP Diastolic 80 mm[Hg] Maricarmen Peñamargaret PACHECO [facility] Work Phone: Comment on above: Patient Position: Sitting; Cuff Location : Left Arm; Cuff Size: Standard 08-26-2011 08:57-0400 BP Systolic 128 mm[Hg] Maricarmen Peñamargaret PACHECO [facility] Work Phone: Comment on above: Patient Position: Sitting; Cuff Location : Left Arm; Cuff Size: Standard 08-26-2011 08:57-0400 BSA (Body Surface Area) 2 m2 Maricarmen Peñamargaret PACHECO [facility] Work Phone: 08-26-2011 08:57-0400 Height 167.64 cm Maricarmen Cordova TARA [facility] Work Phone: 08-26-2011 08:57-0400 Pulse (Heart Rate) 96 /min Maricarmen Cordova TARA [facility] Work Phone: Comment on above: Pattern: Regular 08-26-2011 08:57-0400 Pulse Oximetry 99 % Lisa Ziegler [facility] Work Phone: Comment on above: Room air 08-26-2011 08:57-0400 Respiratory Rate 18 /min Maricarmen Cordova TARA [...] BSA (Body Surface Area) 1.97 m2 Cyndy Krishnamurthy RN [facility] Work [...] Body Temperature 97.6 [degF] Janelle Go RN Comprehens e Internal [...] Regular 07-29-2010 11:10-0400 Respiratory Rate 20 /min Janelel Go RN [facility] Work [...] 08:59-0500 Body Temperature 98.7 [degF] Maricarmen Cordova EDGER HAND [facility] Work Phone: Comment on above: Method: Oral 06-25-2010 08:59-0500 Body weight 81.51 kg Maricarmen Cordova LPN [facility] Work Phone: 06-25-2010 08:59-0500 BP Diastolic 74 mm[Hg] Maricarmen Cordova LPN [...] 08:26-0500 Body Temperature 98.6 [degF] Maricarmen Cordova EDGER HAND [facility] Work Phone: Comment on above: Method: Oral 06-18-2010 08:26-0500 Body weight 81.51 kg Maricarmen Cordova TARA [facility] Work Phone: 06-18-2010 08:26-0500 BP Diastolic 72 mm[Hg] Maricarmen Cordova TARA [facility] Work Phone: Comment on above: Patient Position: Sitting; Cuff Location : Left Arm; Cuff Size: Standard 06-18-2010 08:26-0500 BP Systolic 118 mm[Hg] Maricarmen Cordova TARA [facility] Work Phone: Comment on above: Patient Position: Sitting; Cuff Location : Left Arm; Cuff Size: Standard 06-18-2010 08:26-0500 Pulse (Heart Rate) 82 /min Maricarmen Cordova TARA [facility] Work Phone: Comment on above: Pattern: Regular 06-18-2010 08:26-0500 Respiratory Rate 17 /min Maricarmen Cordova TARA Com[facility] [...] 08:12-0500 Body Temperature 97.8 [degF] Maricarmen Cordova TARA [facility] Work Phone: Comment on above: Method: Oral 03-14-2010 08:12-0500 Body weight 78.16 kg Maricarmen Peñamargaret PACHECO [facility] Work Phone: 03-14-2010 08:12-0500 BP Diastolic 78 mm[Hg] Maricarmen Cordova TARA [facility] Work Phone: Comment on above: Patient Position: Sitting; Cuff Location : Left Arm; Cuff Size: Standard 03-14-2010 08:12-0500 BP Systolic 128 mm[Hg] Maricarmen Cordova TARA [facility] Work Phone: Comment on above: Patient Position: Sitting; Cuff Location : Left Arm; Cuff Size: Standard 03-14-2010 08:12-0500 Pulse (Heart Rate) 78 /min Maricarmen Cordova TARA [facility] [...] 01-13-2010 08:55-0400 Body weight 75.01 kg Janelle Go RN [facility] Work Phone: 01-13-2010 [...] 08:29-0400 Body Temperature 98 [degF] Yanique Crum [facility] Internal Medicine Work Phone: 11-01-2009 08:29-0400 BP Diastolic 64 mm[Hg] Yanique Crum [facility] Work Phone: Comment on above: Patient Position: Sitting; Cuff Location : Left Arm; Cuff Size: Standard 11-01-2009 08:29-0400 BP Systolic 102 mm[Hg] Yanique Crum [facility] Work Phone: Comment on above: Patient Position: Sitting; Cuff Location : Left Arm; Cuff Size: Standard 11-01-2009 08:29-0400 Pulse (Heart Rate) 84 /min Yanique Crum [facility] Internal Medicine Work Phone: Comment on above: Pattern: Regular 11-01-2009 08:29-0400 Respiratory Rate 16 /min Yanique Crum [facility] Internal Medicine [...] Phone: 08-30-2009 11:21-0400 Body weight 74.99 kg Janelle Go RN [facility] [...] Work Phone: 08-30-2009 11:21-0400 Height 170.18 cm Janelle Go RN [facility] Work Phone: 08-30-2009 11:21-0400 Pulse (Heart Rate) 60 /min Jaenlle Go RN [facility] Work [...] 06-11-2009 12:08-0500 Body Temperature 97.3 [degF] Yanique Crum [facility] Medicine Work Phone: 06-11-2009 12:08-0500 BP Diastolic 62 mm[Hg] Yanique Radames [facility] Medicine Work Phone: Comment on above: Patient Position: Sitting; Cuff Location : Left Arm; Cuff Size: Standard 06-11-2009 12:08-0500 BP Systolic 100 mm[Hg] Yanique Radames [facility] Work Phone: Comment on above: Patient Position: Sitting; Cuff Location : Left Arm; Cuff Size: Standard 06-11-2009 12:08-0500 Pulse (Heart Rate) 76 /min Yanique Crum [facility] Work Phone: Comment on above: Pattern: Regular 06-11-2009 12:08-0500 Respiratory Rate 18 /min Yanique Crum [facility] Internal Medicine [...] 02-26-2009 12:41-0400 Head Circumference 0 cm Lisa Ming [facility] Work Phone: 02-26-2009 12:41-0400 [...] 02-04-2009 11:08-0400 Head Circumference 0 cm Lisa Ziegler [facility] Medicine Work Phone: 02-04-2009 11:08-0400 Head [...] BMI (Body Mass Index) 27.28 kg/m2 Maricarmen Cordova TARA [facility] Work Phone: 02-01-2009 12:21-0400 Body Temperature 97.7 [degF] Maricarmen Cordova TARA [facility] Work Phone: Comment on above: Method: Oral 02-01-2009 12:21-0400 Body weight 79.01 kg Maricarmen Cordova LPN [facility] Work Phone: 02-01-2009 12:21-0400 BP Diastolic 68 mm[Hg] Maricarmen Cordova LPN [facility] Work Phone: Comment on above: Patient Position: Sitting; Cuff Location : Left Arm; Cuff Size: Standard 02-01-2009 12:21-0400 BP Systolic 118 mm[Hg] Maricarmen Cordova LPN [facility] Work Phone: Comment on above: Patient Position: Sitting; Cuff Location : Left Arm; Cuff Size: Standard 02-01-2009 12:21-0400 BSA (Body Surface Area) 1.91 m2 Maricarmen Cordova LPN [facility] Work Phone: 02-01-2009 12:21-0400 Head Circumference 0 cm Lisa Ziegler [facility] Work Phone: 02-01-2009 12:21-0400 Head Occipital-frontal circumference 0 cm Maricarmen Cordova TARA [facility]; [facility] Work Phone: 02-01-2009 12:21-0400 Height 170.18 cm Maricarmen Cordova LPN [facility] Work Phone: 02-01-2009 12:21-0400 Pulse (Heart Rate) 86 /min Maricarmen Cordova LPN [facility] Work Phone: Comment on above: Pattern: Regular 02-01-2009 12:21-0400 Respiratory Rate 19 /min Maricarmen Cordova LPN Comprehens[facility] Internal [...] Large 01-21-2009 10:49-0400 BP Systolic 118 mm[Hg] Jnaelle Go RN [facility] Work [...] (Body Mass Index) 29.29 kg/m2 Es Ilana [facility] Work Phone: 11-27-2008 14:20-0400 Body weight 84.82 kg Es [facility] Medicine Work Phone: 11-27-2008 14:20-0400 BP Diastolic 70 mm[Hg] [facility] Work Phone: Comment on above: Patient Position: Supine; Cuff Location: Left Arm; Cuff Size: Standard 11-27-2008 14:20-0400 BP Systolic 118 mm[Hg] Es [facility] Work Phone: Comment on above: Patient Position: Supine; Cuff Location: Left Arm; Cuff Size: Standard 11-27-2008 14:20-0400 BSA (Body Surface Area) 1.97 m2 Es [facility] Work Phone: 11-27-2008 14:20-0400 Head Circumference 0 cm Lisa Ziegler [facility] Medicine Work Phone: 11-27-2008 14:20-0400 Head Occipital-frontal circumference 0 cm Es [facility]; [facility] Work Phone: 11-27-2008 14:20-0400 Height 170.18 cm [facility] Work Phone: 11-27-2008 14:20-0400 Pulse (Heart Rate) 72 /min [facility] Medicine Work Phone: Comment on above: Pattern: Regular 11-27-2008 14:20-0400 Respiratory Rate 16 /min [facility] Medicine Work Phone: Comment on above: Pattern: Unlabored 09-13-2008 15:39-0400 Body Temperature 100.1 [degF] [facility] Internal Medicine Work Phone: Comment on above: Method: Oral 09-13-2008 15:39-0400 Body weight 84.82 kg [facility] Medicine Work Phone: 09-13-2008 15:39-0400 BP Diastolic 62 mm[Hg] [facility] Work Phone: Comment on above: Patient Position: Sitting; Cuff Location : Left Arm; Cuff Size: Standard 09-13-2008 15:39-0400 BP Systolic 108 mm[Hg] [facility] Work Phone: Comment on above: Patient Position: Sitting; Cuff Location : Left Arm; Cuff Size: Standard 09-13-2008 15:39-0400 Head [facility]umference 0 [facility] Work [facility]: 09-13-2008 15:39-0400 Head Occipital-frontal circumference 0 cm [facility] Internal Medicine; [facility] Internal Medicine Work Phone: 09-13-2008 15:39-0400 Height 0 cm [facility] Medicine Work Phone: 09-13-2008 15:39-0400 Pulse (Heart Rate) 82 /min [facility] Work Phone: Comment on above: Pattern: Regular 09-13-2008 15:39-0400 Respiratory Rate 18 /min [facility] Medicine Work Phone: Comment on above: Pattern: Unlabored 08-06-2008 11:05-0400 BMI (Body Mass Index) 29.8 kg/m2 [facility] Work Phone: 08-06-2008 11:05-0400 Body weight 86.3 kg [facility] Medicine Work Phone: 08-06-2008 11:05-0400 BP Diastolic 70 mm[Hg] [facility] Work Phone: Comment on above: Patient Position: Supine; Cuff Location: Left Arm; Cuff Size: Standard 08-06-2008 11:05-0400 BP Systolic 112 mm[Hg] [facility] Medicine Work Phone: Comment on above: Patient Position: Supine; Cuff Location: Left Arm; Cuff Size: Standard 08-06-2008 11:05-0400 BSA (Body Surface Area) 1.98 m2 [facility] Internal Medicine Work Phone: 08-06-2008 11:05-0400 Head Circumference 0 cm [facility] Medicine Work Phone: 08-06-2008 11:05-0400 Head Occipital-frontal circumference 0 cm Es Preciado [facility]; [facility] Work Phone: 08-06-2008 11:05-0400 Height 170.18 cm Es Preciado [facility] Medicine Work Phone: 08-06-2008 11:05-0400 Pulse (Heart Rate) 60 /min Es Preciado [facility] Internal Medicine Work Phone: Comment on above: Pattern: Regular 08-06-2008 11:05-0400 Respiratory Rate 16 /min Es Preciado [facility] Internal Medicine Work Phone: Comment on above: Pattern: Unlabored 07-02-2008 11:00-0500 BMI (Body Mass Index) 30.68 kg/m2 Janelle Go RN [facility] Work Phone: 07-02-2008 11:00-0500 Body weight 86.21 kg Janelle Go RN [facility] Work Phone: 07-02-2008 11:00-0500 BP Diastolic 70 mm[Hg] Jnaelle Go RN [facility] Work [...] Unlabored 03-12-2008 08:11-0500 Body Temperature 98.4 [degF] [facility] Medicine Work Phone: Comment on above: Method: Oral 03-12-2008 08:110500 Body weight 86.21 kg [facility] Medicine Work Phone: 03-12-2008 08:11-0500 BP Diastolic 78 mm[Hg] [facility] Work Phone: Comment on above: Patient Position: Sitting; Cuff Location : Left Arm; Cuff Size: Standard 03-12-2008 08:11-0500 BP Systolic 120 mm[Hg] [facility] Work Phone: Comment on above: Patient Position: Sitting; Cuff Location : Left Arm; Cuff Size: Standard 03-12-2008 08:11-0500 Head Circumference 0 cm Lisa Ziegler [facility] Internal Medicine Work Phone: 03-12-2008 08:11-0500 Head Occipital-frontal circumference 0 cm [facility]; [facility] Work Phone: 03-12-2008 08:11-0500 Height 0 cm [facility] Medicine Work Phone: 03-12-2008 08:11-0500 Pulse (Heart Rate) 84 /min [facility] Medicine Work Phone: Comment on above: Pattern: Regular 03-12-2008 08:11-0500 Respiratory Rate 20 /min [facility] Internal Medicine Work Phone: Comment on [...] BMI (Body Mass Index) 30.58 kg/m2 Es Ilana [facility] Medicine Work Phone: 01-10-2008 08:21-0400 Body weight 85.93 kg Es Ilana [facility] Medicine Work Phone: 01-10-2008 08:21-0400 BP Diastolic 78 mm[Hg] Es Ilana [facility] Medicine Work Phone: Comment on above: Patient Position: Sitting; Cuff Location : Left Arm; Cuff Size: Standard 01-10-2008 08:21-0400 BP Systolic 110 mm[Hg] Es [facility] Medicine Work Phone: Comment on above: Patient Position: Sitting; Cuff Location : Left Arm; Cuff Size: Standard 01-10-2008 08:21-0400 BSA (Body Surface Area) 1.95 m2 Es [facility] Medicine Work Phone: 01-10-2008 08:21-0400 Head Circumference 0 cm Lisa Ziegler [facility] Internal Medicine Work Phone: 01-10-2008 08:21-0400 Head Occipital-frontal circumference 0 cm Es [facility]; [facility] Work Phone: 01-10-2008 08:21-0400 Height 167.64 cm Es [facility] Medicine Work Phone: 01-10-2008 08:21-0400 Pulse (Heart Rate) 88 /min Es [facility] Medicine Work Phone: Comment on above: Pattern: Regular 01-10-2008 08:21-0400 Respiratory Rate 16 /min Es [facility] Medicine Work Phone: Comment on above: Pattern: Unlabored 01-09-2008 08:06-0400 Body Temperature 97.2 [degF] Maricarmen Cordova LPN [facility] Work Phone: Comment on above: Method: Oral 01-09-2008 08:06-0400 Body weight 87.32 kg Maricarmen Crodova LPN [facility] Work Phone: 01-09-2008 08:06-0400 BP Diastolic 72 mm[Hg] Maricarmen Cordova LPN [facility] Internal Medicine Work Phone: Comment on above: Patient Position: Sitting; Cuff Location : Left Arm; Cuff Size: Standard 01-09-2008 08:06-0400 BP Systolic 126 mm[Hg] Maricarmen Cordova LPN [facility] Work Phone: Comment on above: Patient Position: Sitting; Cuff Location : Left Arm; Cuff Size: Standard 01-09-2008 08:06-0400 Head Circumference 0 cm Lisa Ziegler [facility] Work Phone: 01-09-2008 08:06-0400 Head Occipital-frontal circumference 0 cm Maricarmen Artmargaret PACHECO [facility]; [facility] Work Phone: 01-09-2008 08:06-0400 Height 0 cm Maricarmen Artmargaret PACHECO [facility] Work Phone: 01-09-2008 08:06-0400 Pulse (Heart Rate) 74 /min Maricarmen Cordova TARA [facility] Work Phone: Comment on above: Pattern: Regular 01-09-2008 08:06-0400 Respiratory Rate 16 /min Maricarmen Cordova TARA Comprehens[facility] e Internal [...] Unlabored 09-14-2007 08:04-0400 Body Temperature 98.6 [degF] [facility] Internal Medicine Work Phone: Comment on above: Method: Oral 09-14-2007 08:04-0400 Body weight 88.14 kg [facility] Medicine Work Phone: 09-14-2007 08:04-0400 BP Diastolic 72 mm[Hg] [facility] Internal Medicine Work Phone: Comment on above: Patient Position: Sitting; Cuff Location : Left Arm; Cuff Size: Large 09-14-2007 08:04-0400 BP Systolic 122 mm[Hg] [facility] Work Phone: Comment on above: Patient Position: Sitting; Cuff Location : Left Arm; Cuff Size: Large 09-14-2007 08:04-0400 Head Circumference 0 cm Lisa Ziegler [facility] Internal Medicine Work Phone: 09-14-2007 08:04-0400 Head Occipital-frontal circumference 0 cm [facility]; [facility] Medicine Work Phone: 09-14-2007 08:04-0400 Height 0 cm [facility] Work Phone: 09-14-2007 08:04-0400 Pulse (Heart Rate) 80 /min [facility] Work Phone: Comment on above: Pattern: Regular 09-14-2007 08:04-0400 Respiratory Rate 18 /min [facility] Work Phone: Comment on [...] Ziegler [facility] Work Phone: 09-13-2007 12:090400 Head Occipital-frontal circumference 0 cm Janelle Go [...] 08-01-2007 08:10-0400 Body Temperature 98.3 [degF] Maricarmen Art PACHECO [facility] Work Phone: Comment on above: Method: Oral 08-01-2007 08:10-0400 Body weight 95.37 kg Maricarmen Art PACHECO [facility] Work Phone: 08-01-2007 08:10-0400 BP Diastolic 76 mm[Hg] Maricarmen Art PACHECO [facility] Work Phone: Comment on above: Patient Position: Sitting; Cuff Location : Left Arm; Cuff Size: Standard 08-01-2007 08:10-0400 BP Systolic 118 mm[Hg] Maricarmen Art PACHECO [facility] Work Phone: Comment on above: Patient Position: Sitting; Cuff Location : Left Arm; Cuff Size: Standard 08-01-2007 08:10-0400 Head Circumference 0 cm Lisa Ziegler [facility] Work Phone: 08-01-2007 08:10-0400 Head Occipital-frontal circumference 0 cm Maricarmen Art PACHECO [facility]; [facility] Work Phone: 08-01-2007 08:10-0400 Height 0 cm Maricarmen Art PACHECO [facility] Work Phone: 08-01-2007 08:10-0400 Pulse (Heart Rate) 80 /min Maricarmen Cordova TARA [facility] Work Phone: Comment on above: Pattern: Regular 08-01-2007 08:10-0400 Respiratory Rate 18 /min Maricarmen Cordova LPN [facility] Work Phone: Comment on above: Pattern: Unlabored 05-17-2007 11:40-0500 Body Temperature 98.9 [degF] Yanique Radames [facility] Internal Medicine Work Phone: Comment on above: Method: Oral 05-17-2007 11:40-0500 Body weight 0 kg Yanique Radames [facility] Internal Medicine Work Phone: 05-17-2007 11:40-0500 BP Diastolic 74 mm[Hg] Yanique Radames [facility] Internal Medicine Work Phone: Comment on above: Patient Position: Sitting; Cuff Location : Right Arm; Cuff Size: Standard 05-17-2007 11:40-0500 BP Systolic 110 mm[Hg] Yanique Radames [facility] Medicine Work Phone: Comment on above: Patient Position: Sitting; Cuff Location : Right Arm; Cuff Size: Standard 05-17-2007 11:40-0500 Head Circumference 0 cm Lisa Coronelon [facility] Internal Medicine Work Phone: 05-17-2007 11:40-0500 Head Occipital-frontal circumference 0 cm Yanique Crum [facility]; [facility] Work Phone: 05-17-2007 11:40-0500 Height 0 cm Yanique Radames [facility] Medicine Work Phone: 05-17-2007 11:40-0500 Respiratory Rate 16 /min Yanique Crum [facility] Medicine [...] 05-06-2007 14:56-0500 BP Diastolic 82 mm[Hg] Janelle Go RN [facility] Work Phone: Comment on above: Patient Position: Sitting; Cuff Location : Right Arm; Cuff Size: Standard 05-06-2007 14:56-0500 BP Systolic 132 mm[Hg] Janelle Go RN [facility] Work Phone: Comment on above: Patient Position: Sitting; Cuff Location : Right Arm; Cuff Size: Standard 05-06-2007 14:56-0500 Head Circumference 0 cm Lisa Ziegler [facility] Work Phone: 05-06-2007 14:56-0500 [...] 03-15-2007 11:00-0500 Respiratory Rate 20 /min Janelle Go RN [facility] Work Phone: Comment on above: Pattern: Unlabored 01-12-2007 08:24-0400 Body Temperature 98.6 [degF] Maricarmen Cordova LPN [facility] Work Phone: Comment on above: Method: Oral 01-12-2007 08:240400 Body weight 90.27 kg Maricarmen Cordova EDGER HAND [facility] Work Phone: 01-12-2007 08:24-0400 BP Diastolic 80 mm[Hg] Maricarmen Cordova EDGER HAND [facility] Work Phone: Comment on above: Patient Position: Sitting; Cuff Location : Left Arm; Cuff Size: Standard 01-12-2007 08:24-0400 BP Systolic 124 mm[Hg] Maricarmen Cordova EDGER HAND [facility] Work Phone: Comment on above: Patient Position: Sitting; Cuff Location : Left Arm; Cuff Size: Standard 01-12-2007 08:24-0400 Head Circumference 0 cm Lisa Coronelon [facility] Work Phone: 01-12-2007 08:24-0400 Head Occipital-frontal circumference 0 cm Maricarmen Cordova LPN [facility]; [facility] Work Phone: 01-12-2007 08:24-0400 Height 0 cm Maricarmen Cordova LPN [facility] Work Phone: 01-12-2007 08:24-0400 Pulse (Heart Rate) 80 /min Maricarmen Cordova LPN [facility] Work Phone: Comment on above: Pattern: Regular 01-12-2007 08:24-0400 Respiratory Rate 18 /min Maricarmen Cordova LPN [facility] Work Phone: Comment on above: Pattern: Unlabored 11-11-2006 09:19-0400 Body weight 90.27 kg Maricarmen Cordova EDGER HAND [facility] Work Phone: 11-11-2006 09:19-0400 BP Diastolic 78 mm[Hg] Maricarmen Cordova TARA [facility] Work Phone: Comment on above: Patient Position: Sitting; Cuff Location : Left Arm; Cuff Size: Standard 11-11-2006 09:19-0400 BP Systolic 122 mm[Hg] Maricarmen Cordova TARA [facility] Work Phone: Comment on above: Patient Position: Sitting; Cuff Location : Left Arm; Cuff Size: Standard 11-11-2006 09:19-0400 Head Circumference 0 cm Lisa Ziegler [facility] Work Phone: 11-11-2006 09:19-0400 Head Occipital-frontal circumference 0 cm Maricarmen Cordova TARA [facility]; [facility] Work Phone: 11-11-2006 09:19-0400 Height 0 cm Maricarmen Cordova TARA [facility] Work Phone: 11-11-2006 09:19-0400 Pulse (Heart Rate) 78 /min Maricarmen Cordova LPN [facility] Work Phone: Comment on above: Pattern: Regular 11-11-2006 09:19-0400 Respiratory Rate 17 /min Maricarmen Cordova LPN [facility] Work Phone: Comment on above: Pattern: Unlabored 06-30-2006 15:29-0500 Body Temperature 97.8 [degF] CHRISTIANO Gonzalez TARA [facility] Work Phone: Comment on above: Method: Oral 06-30-2006 15:29-0500 Body weight 90.27 kg CHRISTIANO Carlos PACHECO [facility] Work Phone: 06-30-2006 15:29-0500 BP Diastolic 80 mm[Hg] CHRISTIANOCARLTON Gonzalez LPN [facility] Work Phone: Comment on above: Patient Position: Sitting; Cuff Location : Left Arm; Cuff Size: Standard 06-30-2006 15:29-0500 BP Systolic 120 mm[Hg] CHRISTIANOCARLTON Gonzalez LPN [facility] Work Phone: Comment on above: Patient Position: Sitting; Cuff Location : Left Arm; Cuff Size: Standard 06-30-2006 15:29-0500 Head Circumference 0 cm Lisa Ziegler [facility] Internal Medicine Work Phone: 06-30-2006 15:29-0500 Head Occipital-frontal circumference 0 cm CHRISTIANO Gonzalez TARA [facility]; [facility] Work Phone: 06-30-2006 15:29-0500 Height 0 cm CHRISTIANO Gonzalez TARA [facility] Work Phone: 06-30-2006 15:29-0500 Pulse (Heart Rate) 80 /min CHRISTIANO Gonzalez EDGER HAND [facility] Work Phone: Comment on above: Pattern: Regular 06-30-2006 15:29-0500 Respiratory Rate 20 /min CHRISTIANO Gonzalez EDGER HAND [facility] Work Phone: Comment on above: Pattern: Unlabored 05-20-2006 13:02-0500 Body Temperature 97.3 [degF] Lisa Ziegler [facility] Medicine Work Phone: Comment on above: Method: Undefined 05-20-2006 13:02-0500 Body weight 0 kg Lisa Ziegler [facility] Internal Medicine Work Phone: 05-20-2006 13:02-0500 BP Diastolic 70 mm[Hg] Lisa Ziegler [facility] Work Phone: Comment on above: Patient Position: Sitting; Cuff Location : Left Arm; Cuff Size: Standard 05-20-2006 13:02-0500 BP Systolic 130 mm[Hg] Lisa Ziegler [facility] Work Phone: Comment on above: Patient Position: Sitting; Cuff Location : Left Arm; Cuff Size: Standard 05-20-2006 13:02-0500 Head Circumference 0 cm Lisa Ziegler [facility] Internal Medicine Work Phone: 05-20-2006 13:02-0500 Head Occipital-frontal circumference 0 cm Lisa Ziegler DO Work Phone: [facility]; [facility] Work Phone: 05-20-2006 13:02-0500 Height 0 cm Lisa Ziegler [facility] Work Phone: 05-20-2006 13:02-0500 Pulse (Heart Rate) 72 /min Lisa Ziegler [facility] Work Phone: Comment on above: Pattern: Regular 05-20-2006 13:02-0500 Respiratory Rate 16 /min Lisa Ziegler [facility] Medicine Work Phone: Comment on above: Pattern: Undefined 05-04-2006 11:41-0500 Body Temperature 97.7 [degF] CHRISTIANO Gonzalez TARA [facility] Work Phone: Comment on above: Method: Oral 05-04-2006 11:41-0500 Body weight 90.27 kg CHRISTIANO Gonzalez TARA [facility] Work Phone: 05-04-2006 11:41-0500 BP Diastolic 80 mm[Hg] CHRISTIANO Gonzalez TARA [facility] Work Phone: Comment on above: Patient Position: Sitting; Cuff Location : Left Arm; Cuff Size: Standard 05-04-2006 11:41-0500 BP Systolic 116 mm[Hg] CHRISTIANO Gonzalez TARA [facility] Work Phone: Comment on above: Patient Position: Sitting; Cuff Location : Left Arm; Cuff Size: Standard 05-04-2006 11:41-0500 Head Circumference 0 cm Lisa Ziegler [facility] Work Phone: 05-04-2006 11:41-0500 Head Occipital-frontal circumference 0 cm CHRISTIANO Gonzalez TARA [facility]; [facility] Work Phone: 05-04-2006 11:41-0500 Height 0 cm CHRISTIANO Gonzalez TARA [facility] Work Phone: 05-04-2006 11:41-0500 Pulse (Heart Rate) 80 /min CHRISTIANO Gonzalez TARA [facility] Work Phone: Comment on above: Pattern: Regular 05-04-2006 11:41-0500 Respiratory Rate 20 /min CHRISTIANO Gonzalez TARA [facility] Work Phone: [...] 04-15-2006 13:23-0500 BP Systolic 132 mm[Hg] Lisa Ziegler [facility] Work Phone: Comment on above: Patient Position: Sitting; Cuff Location : Left Arm; Cuff Size: Standard 04-15-2006 13:23-0500 Head Circumference 0 cm Lisa Ziegler [facility] Work Phone: 04-15-2006 13:23-0500 Head Occipital-frontal circumference 0 cm Lisa Ziegler DO Work Phone: [facility]; [facility] Work Phone: 04-15-2006 13:23-0500 Height 0 cm Lisa Ziegler [facility] Work Phone: 04-15-2006 13:23-0500 Pulse (Heart Rate) 84 /min Lisa Ziegler [facility] Work Phone: Comment on above: Pattern: Regular 04-15-2006 13:23-0500 Respiratory Rate 22 /min Lisa Ziegler [facility] Work Phone: Comment on above: Pattern: Undefined Encounters Encounter Date Encounter Type Care Provider Facility Start: 03-09-2025 ambulatory Aly Friend Facility :[facility] Start: 02-23-2025 End: 02-23-2025 ambulatory Lisa Ming Facility:[facility] Start: 02-21-2025 End: 02-21-2025 ambulatory Lisa Ming Facility:[facility] Start: 02-06-2025 End: 02-06-2025 Patient encounter procedure Aly Gotti DO -[facility] Work Phone: Start: 02-06-2025 End: 02-06-[address] Lisa Ziegler DO Work Phone: -[facility] Start: 02-06-2025 End: 02-06-2025 ambulatory Lisa Ziegler Facility:[facility] Start: 01-29-2025 End: 01-29-[address] Lisa Ziegler DO Work Phone: -[facility] Start: 01-29-2025 End: 01-29-[address] Lisa Ziegler DO -[facility] Work Phone: Start: 01-29-2025 End: 01-29-2025 ambulatory Lisa Ziegler Facility:[facility] Start: 01-18-2025 End: 01-18-[address] Lisa Ziegler DO Work Phone: -Laboratory Start: 01-18-2025 End: 01-18-[address] Lisa Ziegler DO -Laboratory Work Phone: Start: 01-18-2025 End: 01-18-2025 ambulatory Lisa Ziegler Facility:[facility] Start: 11-22-2024 End: 11-22-[address] Lisa Ziegler DO Work Phone: -[facility] [place] Start: 11-22-2024 End: 11-22-[address] Tk Simeon MD -Laboratory [place] Work Phone: Start: 11-22-2024 End: 11-22-2024 ambulatory Tk Simeon Facility:[facility] Start: 09-18-2024 Encounter for gynecological examination (general) (routine) without abnormal findings Katey Elizabeth [facility] Start: 09-18-2024 End: 09-18-[address] Katey Elizabeth MD [facility] Start: 09-18-2024 End: 09-18-[address] Lisa Ziegler DO Work Phone: [facility] Work Phone: Start: 09-18-2024 End: 09-18-[address] Katey Elizabeth MD -[facility] [place] [facility] Work Phone: Start: 09-18-2024 End: 09-18-2024 ambulatory Katey Elizabeth Facility:[facility] Start: 05-29-2023 End: 05-29-[address] [facility] Work Phone: Start: 05-29-2023 End: 05-29-2023 Patient encounter procedure [facility]-Laboratory Work Phone: Start: 01-20-2023 End: 01-21-2023 Office outpatient visit 15 minutes Lisa Ziegler DO Work Phone: [facility] Start: 01-14-2023 End: 01-14-2023 Office outpatient visit 15 minutes Lisa Ziegler DO Work Phone: [facility] Start: 01-14-2023 Lisa funk DO Work Phone: [facility] Start: 10-23-2022 End: 10-23-[address] Lisa Ziegler Work Phone: [facility] Work Phone: Start: 10-23-2022 End: 10-23-[address] Lisa Ziegler Work Phone: [facility]-Physical Therapy Work Phone: Start: 09-11-2022 ambulatory Lisa Ziegler DO [facility] Start: 09-11-2022 End: 09-11-[address] Lisa Ziegler Work Phone: [facility] [place] [facility] Start: 09-11-2022 End: 09-11-2022 Office outpatient visit 25 minutes Lisa Ming DO Work Phone: [facility] Start: 08-20-2022 End: 08-20-[address] Lisa Ziegler Work Phone: [facility] Work Phone: Start: 08-20-2022 End: 08-20-[address] Lisa Ziegler Work Phone: [facility] Start: 04-03-2022 End: 04-03-2022 Office outpatient visit 10 minutes Lisanate Ziegler DO Work Phone: [facility] Start: 03-13-2022 Lisa Duran n DO Work Phone: [facility] Start: 03-13-2022 End: 03-13-2022 Office outpatient visit 25 minutes Lisa Ziegler DO Work Phone: [facility] Start: 08-12-2021 End: 08-12-[address] Lisa Ziegler Work Phone: [facility]-Laboratory, Specimen Start: 08-12-2021 End: 08-12-[address] Lisa Ziegler Work Phone: [facility]-Outpatient Breast Imaging Start: 06-16-2021 End: 06-16-[address] Lisa Ziegler Work Phone: [facility] Start: 04-03-2021 End: 04-03-2021 Office outpatient visit 15 minutes Lisa Ming DO Work Phone: [facility] Start: 12-02-2020 End: 12-02-2020 Office outpatient visit 10 minutes Lisa Ming DO Work Phone: [facility] Start: 08-16-2020 End: 08-16-2020 Lisa Ming DO Work Phone: [facility] Start: 07-19-2020 End: 07-19-2020 Office outpatient visit 15 minutes Lisa Ming [facility] Start: 05-06-2020 End: 05-06-2020 Office outpatient visit 5 minutes Lisa Ziegler [facility] Start: 12-22-2019 End: 12-22-2019 Office outpatient visit 15 minutes Lisa Coronelon [facility] Start: 09-12-2019 End: 09-12-2019 Annotation/Addendum Lisa Ming [facility] Start: 09-12-2019 End: 09-12-2019 Lisa Ming DO Work Phone: [facility] Start: 09-12-2019 End: 09-12-2019 Annotation/Addendum Lisa Ming [facility] Start: 09-12-2019 End: 09-12-2019 Lisa Ming DO Work Phone: [facility] Start: 09-12-2019 End: 09-12-2019 Office outpatient visit 25 minutes Lisa Ming [facility] Start: 09-12-2019 End: 09-12-2019 Annotation/Addendum Lisa Ming [facility] Start: 09-12-2019 End: 09-12-2019 Lisa Ming DO Work Phone: [facility] Start: 09-07-2019 End: 09-07-2019 Phone Encounter Lisa Ziegler [facility] Start: 09-07-2019 End: 09-07-2019 Lisa Ming DO Work Phone: [facility] Start: 09-04-2019 End: 09-04-2019 Office outpatient visit 25 minutes Lisa Ming [facility] Start: 08-30-2019 End: 08-30-2019 Office outpatient visit 15 minutes Lisa Ziegler [facility] Start: 08-25-2019 End: 08-25-2019 Phone Encounter Lisa Coronelon [facility] Start: 08-25-2019 End: 08-25-2019 Lisa Ming DO Work Phone: [facility] Start: 07-21-2019 End: 07-21-2019 Periodic preventive med est patient 40-64yrs Lisa Ming [facility] Start: 03-14-2019 End: 03-14-2019 Office outpatient visit 15 minutes Lisa Ming [facility] Start: 06-10-2018 End: 06-10-2018 Annotation/Addendum Lisa Ziegler [facility] Start: 06-10-2018 End: 06-10-2018 Lisa [...] 01-21-2018 Office outpatient visit 15 minutes Lisa Ziegler [facility] Start: 06-17-2017 End: 06-17-2017 Office outpatient visit 15 minutes Lisa Ziegler [facility] Start: 03-15-2017 End: 03-15-2017 Phone Encounter Lisa Ziegler [facility] Start: 03-15-2017 End: 03-15-2017 Lisa Ziegler DO Work Phone: [facility] Start: 03-05-2017 End: 03-05-2017 Phone Encounter Lisa Ziegler [facility] Start: 03-05-2017 End: 03-05-2017 Lisa Ziegler DO Work Phone: [facility] Start: 03-04-2017 End: 03-04-2017 Office outpatient visit 15 minutes Lisa Ziegler [facility] Start: 02-25-2017 End: 02-25-2017 Office outpatient visit 15 minutes Lisa Ming [facility] Start: 12-24-2016 End: 12-24-2016 Office outpatient visit 15 minutes Lisa Ziegler [facility] Start: 12-16-2016 End: 12-16-2016 Patient encounter procedure Lisa Ziegler [facility] Start: 12-16-2016 End: 12-16-2016 Lisa Ziegler DO Work Phone: [facility] Start: 12-04-2016 End: 12-04-2016 Office outpatient visit 15 minutes Lisa Ziegler [facility] Start: 12-03-2016 End: 12-03-2016 Phone Encounter Lisa Ziegler [facility] Start: 12-03-2016 End: 12-03-2016 Lisa Ziegler DO Work Phone: [facility] Start: 12-03-2016 End: 12-03-2016 Annotation/Addendum Lisa Ming [facility] Start: 12-03-2016 End: 12-03-2016 Lisa Ziegler DO Work Phone: [facility] Start: 12-03-2016 End: 12-03-2016 Office outpatient visit 25 minutes Lisa Ziegler [facility] Start: 10-21-2016 End: 10-21-2016 Phone Encounter Lisa Ziegler [facility] Start: 10-21-2016 End: 10-21-2016 Lisa Ziegler DO Work Phone: [facility] Start: 08-28-2016 End: 08-28-2016 Office outpatient visit 15 minutes Lisa Ziegler [facility] Start: 05-05-2016 End: 05-05-2016 Office outpatient visit 15 minutes Lisa Ming [facility] Start: 04-10-2016 End: 04-10-2016 Office outpatient visit 15 minutes Lisa Ming [facility] Start: 04-07-2016 End: 04-07-2016 Annotation/Addendum Lisa Ming [facility] Start: 04-07-2016 End: 04-07-2016 Lisa Ziegler DO Work Phone: [facility] [...] End: 07-24-2015 Office outpatient visit 25 minutes Lisayue Ziegler [facility] Start: 07-08-2015 End: 07-08-2015 Office outpatient visit 15 minutes Lisa Ming [facility] Start: 06-07-2015 End: 06-07-2015 Office outpatient visit 15 minutes Lisayue Ziegler [facility] Start: 05-14-2015 End: 05-14-2015 Office outpatient visit 25 minutes Lisa Ming [facility] Start: 04-23-2015 End: 04-23-2015 Patient encounter procedure Lisayue Coronelon [facility] Start: 04-23-2015 End: 04-23-2015 Lisayue Ziegler DO Work Phone: [facility] Start: 04-09-2015 End: 04-09-2015 Patient encounter procedure Lisayue Coronelon [facility] Start: 04-09-2015 End: 04-09-2015 Lisanate Ziegler DO Work Phone: [facility] Start: 04-05-2015 End: 04-05-2015 Office outpatient visit 25 minutes Lisa Ming [facility] Start: 02-21-2015 End: 02-21-2015 Office outpatient visit 15 minutes Lisa Ming [facility] Start: 11-08-2014 End: 11-08-2014 Office outpatient visit 25 minutes Lisa Ming [facility] Start: 07-02-2014 End: 07-02-2014 Office outpatient visit 15 minutes Lisa Ming [facility] Start: 06-20-2014 End: 06-20-2014 Phone Encounter Lisa Ming [facility] Start: 06-20-2014 End: 06-20-2014 Lisa Ziegler DO Work Phone: [facility] Start: 02-20-2014 End: 02-20-2014 Erroneous Entry Lisa Ziegler [facility] Start: 02-20-2014 End: 02-20-2014 Lisayue Ziegler DO Work Phone: [facility] Start: 02-20-2014 End: 02-20-2014 Office outpatient visit 40 minutes Lisa Ziegler [facility] Start: 01-05-2014 End: 01-05-2014 Office outpatient visit 15 minutes Lisa Ziegler [facility] Start: 07-10-2013 End: 07-10-2013 Patient encounter procedure Lisa Ziegler [facility] Start: 07-10-2013 End: 07-10-2013 Lisa Ziegler DO Work Phone: [facility] Start: 06-26-2013 End: 06-26-2013 Patient encounter procedure [facility] [facility] Start: 06-26-2013 End: 06-26-2013 Lisa Ziegler DO Work Phone: [facility] Start: 06-15-2013 End: 06-15-2013 Patient encounter procedure Lisa Ziegler [facility] Start: 06-15-2013 End: 06-15-2013 Lisa Ziegler DO Work Phone: [facility] Start: 06-05-2013 End: 06-05-2013 Patient encounter procedure Lisa Ziegler [facility] Start: 06-05-2013 End: 06-05-2013 Lisa Ziegler DO Work Phone: [facility] Start: 05-02-2013 End: 05-02-2013 Office outpatient visit 25 minutes Lisa Ziegler [facility] Start: 04-28-2013 End: 04-28-2013 Patient encounter procedure Lisa Ziegler [facility] Start: 04-28-2013 End: 04-28-2013 Lisa Ziegler DO Work Phone: [facility] Start: 02-16-2013 End: 02-16-2013 Patient encounter procedure Lisa Ziegler [facility] Start: 02-16-2013 End: 02-16-2013 Lisa Ziegler DO Work Phone: [facility] Start: 01-30-2013 End: 01-30-2013 Office outpatient visit 25 minutes Lisa Ziegler [facility] Start: 12-26-2012 End: 12-26-2012 Office outpatient visit 25 minutes Lisa Ziegler [facility] Start: 10-06-2012 End: 10-06-2012 Patient encounter procedure Lisa Ziegler [facility] Start: 10-06-2012 End: 10-06-2012 Lisa Ziegler DO Work Phone: [facility] Start: 05-31-2012 End: 06-06-2012 Patient encounter procedure Lisa Ziegler [facility] Start: 05-31-2012 End: 06-06-2012 Lisa Ziegler DO Work Phone: [facility] Start: 05-10-2012 End: 05-10-2012 Patient encounter procedure Lisa Ziegler [facility] Start: 05-10-2012 End: 05-10-2012 Lisa Ziegler DO Work Phone: [facility] Start: 02-09-2012 End: 02-09-2012 Patient encounter procedure Lisa Ziegler [facility] Start: 02-09-2012 End: 02-09-2012 Lisa Ziegler DO Work Phone: [facility] Start: 02-01-2012 End: 02-01-2012 Patient encounter procedure Lisa Ziegler [facility] Start: 02-01-2012 End: 02-01-2012 Lisa Ziegler DO Work Phone: [facility] Start: 10-12-2011 End: 10-12-2011 Phone Encounter [facility]ler [facility] Start: 10-12-2011 End: 10-12-2011 Lisa Ziegler DO Work Phone: [facility] Start: 10-12-2011 End: 10-12-2011 Patient encounter procedure Lisa Ziegler [facility] Start: 10-12-2011 End: 10-12-2011 Lisa Ziegler DO Work Phone: [facility] Start: 09-11-2011 End: 09-11-2011 Lab Order Lisa Ziegler [facility] Start: 09-11-2011 End: 09-11-2011 Lisa Ziegler DO Work Phone: [facility] Start: 09-09-2011 End: 09-09-2011 Patient encounter procedure Lisa Ziegler [facility] Start: 09-09-2011 End: 09-09-2011 Lisa Ziegler DO Work Phone: [facility] Start: 08-26-2011 End: 08-26-2011 Office outpatient visit 15 minutes Lisa Ziegler [facility] Start: 04-08-2011 End: 04-08-2011 Patient encounter procedure Lisa Ziegler [facility] Start: 04-08-2011 End: 04-08-2011 Lisa Ziegler DO Work Phone: [facility] Start: 02-16-2011 End: 02-16-2011 Office outpatient visit 25 minutes Lisa Ziegler [facility] Start: 12-01-2010 End: 12-01-2010 Patient encounter procedure Lisa Ziegler [facility] Start: 12-01-2010 End: 12-01-2010 Lisa Ziegler DO Work Phone: [facility] Start: 08-07-2010 End: 08-07-2010 Patient encounter procedure Lisa Ziegler [facility] Start: 08-07-2010 End: 08-07-2010 Lisa Ziegler DO Work Phone: [facility] Start: 07-29-2010 End: 07-29-2010 Patient encounter procedure Lisa Ziegler [facility] Start: 07-29-2010 End: 07-29-2010 Lisa Ziegler DO Work Phone: [facility] Start: 07-25-2010 End: 07-25-2010 Patient encounter procedure Lisa Ziegler [facility] Start: 07-25-2010 End: 07-25-2010 Lisa Ziegler DO Work Phone: [facility] Start: 07-01-2010 End: 07-01-2010 Office outpatient visit 25 minutes Lisa Ming [facility] Start: 06-25-2010 End: 06-25-2010 Annotation/Addendum Lisa Ziegler [facility] Start: 06-25-2010 End: 06-25-2010 Lisa Ziegler DO Work Phone: [facility] Start: 06-25-2010 End: 06-25-2010 Office outpatient visit 25 minutes Lisa Ming [facility] Start: 06-18-2010 End: 06-18-2010 Office outpatient visit 25 minutes Lisa Ming [facility] Start: 06-13-2010 End: 06-13-2010 Patient encounter procedure Lisa Ziegler [facility] Start: 06-13-2010 End: 06-13-2010 Lisa Ziegler DO Work Phone: [facility] Start: 06-06-2010 End: 06-06-2010 Patient encounter procedure Lisa Ziegler [facility] Start: 06-06-2010 End: 06-06-2010 Lisa Ziegler DO Work Phone: [facility] Start: 06-02-2010 End: 06-02-2010 Error Encounter Lisa Ziegler [facility] Start: 06-02-2010 End: 06-02-2010 Lisa Ziegler DO Work Phone: [facility] Start: 05-20-2010 End: 05-20-2010 Patient encounter procedure Lisa Ziegler [facility] Start: 05-20-2010 End: 05-20-2010 Lisa Ziegler DO Work Phone: [facility] Start: 04-15-2010 End: 04-15-2010 Office outpatient visit 25 minutes Lisa Ziegler [facility] Start: 03-14-2010 End: 03-14-2010 Office outpatient visit 15 minutes Lisa Ziegler [facility] Start: 02-24-2010 End: 02-24-2010 Office outpatient visit 15 minutes Lisa Ziegler [facility] Start: 01-13-2010 End: 01-13-2010 Patient encounter procedure Lisa Ziegler [facility] Start: 01-13-2010 End: 01-13-2010 Lisa Ziegler DO Work Phone: [facility] Start: 12-31-2009 End: 12-31-2009 Phone Encounter Lisa Ziegler [facility] Start: 12-31-2009 End: 12-31-2009 Lisa Ziegler DO Work Phone: [facility] Start: 11-22-2009 End: 11-22-2009 Patient encounter procedure Lisa Ziegler [facility] Start: 11-22-2009 End: 11-22-2009 Lisa Ziegler DO Work Phone: [facility] Start: 11-01-2009 End: 11-01-2009 Patient encounter procedure Lisa Ziegler [facility] Start: 11-01-2009 End: 11-01-2009 Lisa Ming DO Work Phone: [facility] Start: 10-22-2009 End: 10-22-2009 Patient encounter procedure Lisa Ziegler [facility] Start: 10-22-2009 End: 10-22-2009 Lisa Ming DO Work Phone: [facility] Start: 08-30-2009 End: 08-30-2009 Patient encounter procedure Lisa Ziegler [facility] Start: 08-30-2009 End: 08-30-2009 Lisa Ming DO Work Phone: [facility] Start: 08-12-2009 End: 08-12-2009 Patient encounter procedure Lisa Ziegler [facility] Start: 08-12-2009 End: 08-12-2009 Lisa Ming DO Work Phone: [facility] Start: 07-18-2009 End: 07-18-2009 Patient encounter procedure Lisa Ziegler [facility] Start: 07-18-2009 End: 07-18-2009 Lisa Ming DO Work Phone: [facility] Start: 06-24-2009 End: 06-24-2009 Patient encounter procedure Lisa Ziegler [facility] Start: 06-24-2009 End: 06-24-2009 Lisayue Coronelon DO Work Phone: [facility] Start: 06-11-2009 End: 06-11-2009 Patient encounter procedure Lisa Ziegler [facility] Start: 06-11-2009 End: 06-11-2009 Lisa Coronelon DO Work Phone: [facility] Start: 05-24-2009 End: 05-24-2009 Patient encounter procedure Lisa Ziegler [facility] Start: 05-24-2009 End: 05-24-2009 Lisa Ming DO Work Phone: [facility] Start: 02-26-2009 End: 02-26-2009 Patient encounter procedure Lisa Ziegler [facility] Start: 02-26-2009 End: 02-26-2009 Lisayue Coronelon DO Work Phone: [facility] Start: 02-04-2009 End: 02-04-2009 Patient encounter procedure Lisa Ziegler [facility] Start: 02-04-2009 End: 02-04-2009 Lisa Ziegler DO Work Phone: [facility] Start: 02-01-2009 End: 02-01-2009 Patient encounter procedure Lisa Ziegler [facility] Start: 02-01-2009 End: 02-01-2009 Lisa Ziegler DO Work Phone: [facility] Start: 01-21-2009 End: 01-21-2009 Patient encounter procedure Lisa Ziegler [facility] Start: 01-21-2009 End: 01-21-2009 Lisa Ziegler DO Work Phone: [facility] Start: 12-31-2008 End: 12-31-2008 Patient encounter procedure Lisa Ziegler [facility] Start: 12-31-2008 End: 12-31-2008 Lisa Ziegler DO Work Phone: [facility] Start: 12-26-2008 End: 12-26-2008 Patient encounter procedure Lisa Ziegler [facility] Start: 12-26-2008 End: 12-26-2008 Lisa Ziegler DO Work Phone: [facility] Start: 11-27-2008 End: 11-27-2008 Error Encounter Lisa Ziegler [facility] Start: 11-27-2008 End: 11-27-2008 Lisa Ziegler DO Work Phone: [facility] Start: 11-27-2008 End: 11-27-2008 Office outpatient visit 15 minutes Lisa Ziegler [facility] Start: 09-13-2008 End: 09-13-2008 Office outpatient visit 25 minutes Lisa Ziegler [facility] Start: 08-06-2008 End: 08-06-2008 Patient encounter procedure Lisa Ziegler [facility] Start: 08-06-2008 End: 08-06-2008 Lisa Ziegler DO Work Phone: [facility] Start: 07-02-2008 End: 07-02-2008 Patient encounter procedure Lisa Ziegler [facility] Start: 07-02-2008 End: 07-02-2008 Lisa Ziegler DO Work Phone: [facility] Start: 06-08-2008 End: 06-08-2008 Patient encounter procedure Lisa Ziegler [facility] Start: 06-08-2008 End: 06-08-2008 Lisa Ziegler DO Work Phone: [facility] Start: 03-12-2008 End: 03-12-2008 Office outpatient visit 15 minutes Lisa Ziegler [facility] Start: 03-09-2008 End: 03-09-2008 Patient encounter procedure Lisa Ziegler [facility] Start: 03-09-2008 End: 03-09-2008 Lisa Ziegler DO Work Phone: [facility] Start: 01-10-2008 End: 01-10-2008 Patient encounter procedure Lisa Ziegler [facility] Start: 01-10-2008 End: 01-10-2008 Lisa Ziegler DO Work Phone: [facility] Start: 01-09-2008 End: 01-09-2008 Office outpatient visit 15 minutes Lisa Ziegler [facility] Start: 12-28-2007 End: 12-28-2007 Patient [...] Office outpatient visit 25 minutes Lisa Ziegler [facility] Start: 08-01-2007 End: 08-01-2007 Office [...] 06-30-2006 Office outpatient visit 25 minutes Lisa Ziegler [facility] Start: 05-20-2006 End: 05-20-2006 Office outpatient visit 25 minutes Lisa Ziegler [facility] Start: 05-18-2006 End: 05-18-2006 Historical Summary Lisa Ziegler [facility] Start: 05-18-2006 End: 05-18-2006 Lisa Ziegler DO Work Phone: [facility] Start: 05-04-2006 End: 05-04-2006 Office outpatient visit 15 minutes Lisa Ziegler [facility] Start: 04-19-2006 End: 04-19-2006 Phone Encounter Lisa Ziegler [facility] Start: 04-19-2006 End: 04-19-2006 Lisa Ziegler DO Work Phone: [facility] Start: 04-15-2006 End: 04-15-2006 Office outpatient visit 25 minutes Lisa Ziegler [facility] Physical examination Samara Bruce CMA [facility]; [facility] Work Phone: Physical examination Isabel Slarb EDGER HAND Com prehens[facility]; [facility] Work Phone: Physical examination Eliecer Youssef EDGER HAND Com prehensive [facility]; [facility] Work Phone: Physical examination Eliecer Youssef EDGER HAND Com prehens[facility]; [facility] Work Phone: Physical examination Isabel Guillen EDGER HAND Com prehens[facility]; [facility] Work Phone: Physical examination CHRISTIANO Gonzalez EDGER HAND C [facility]; [facility] Work Phone: Physical examination Isabel Guillen EDGER HAND Com prehensive [facility]; [facility] Work Phone: Procedures Date Procedure Procedure Detail Performing Clinician Start: 02-06-2025 Albumin/Globulin ratio Dr. Lisa Ziegler DO Work Phone: Start: 02-06-[address] Lisa Ziegler DO Work Phone: Comment on above: The atypical pANCA pattern has been obse rved in asignificant percentage of patients with ulcerative colitis,primary sclerosing cholangitis and autoimmune hepatitis. Start: 02-06-2025 Antibody to centromere measurement Dr. Lisa Ziegler DO Work Phone: Comment on above: Previous reported result: TNP AIEdited b y: INFCE on 02/10/25:1907 AMENDED REPORT 02/10/251907 ANTI-CENT B previously reported as: Test not performed Start: 02-06-2025 Antibody to extractable nuclear antigen measurement Dr. Lisa Ziegler DO Work Phone: Comment on above: Previous reported result: TNP AIEdited b y: INFCE on 02/10/25:1908 AMENDED REPORT 02/10/251907 REEVES Ab previously reported as: Test not performed Start: 02-06-2025 Antibody to FLETCHER-[address] Lisa Ziegler DO Work Phone: Comment on above: Previous reported result: TNP AIEdited b y: INFCE on 02/10/25:1908 AMENDED REPORT 10/11/25 1908 ANTI-FLETCHER previously reported as: Test not performed Start: 02-06-2025 Antibody to lupus La protein measurement Dr. Lisa Ziegler DO Work Phone: Start: 02-06-2025 Antibody to SS-A measurement Dr. Lisa Ziegler DO Work Phone: Start: 02-06-[address] Lisa Ziegler DO Work Phone: Comment on above: Previous reported result: TNP AIEdited b y: INFCE on 02/10/25:1908 AMENDED REPORT 02/10/251907 ANTICHROMATIN previously reported as: Test not performed Start: 02-06-[address] Lisa Ziegler DO Work Phone: Start: 02-06-[address] antibody IgA level Dr. Lisa Ziegler DO Work Phone: Start: 02-06-[address] Lisa Ziegler DO Work Phone: Start: 02-06-[address] Lisa Ziegler DO Work Phone: Start: 02-06-2025 MEDICATION ADMINISTRATION PROFESSIONAL antibody measurement Dr. Lisa Ziegler DO Work Phone: Comment on above: Previous reported result: TNP AIEdited b y: INFCE on 02/10/25:1908 AMENDED REPORT 02/10/251907 MEDICATION ADMINISTRATION PROFESSIONAL Ab previously reported as: Test not performed Start: 02-06-[address] Lisa Ziegler DO Work Phone: Start: 01-29-[address] Lisa [...] End: 09-21-2022 Procedure Note: See Note; NOTES: [facility] [address] [place] [address] / REHABILITATION SERVICES INITIAL EVALUATION MR#: [id number] Acct: [id number] Name: GALINA LATHAM Rep #: [id number] : 1970 52 From: Getachew Dominguez DPT, OCS, CSCS Referring Dr.: Dr. Lisa Ziegler DO Status: REG R Insurance: [employer] SELF PAY INSURANCE Patient's Visit Information GALINA [...] but cannot take before work. Works at [employer]. Mostly hurts on steps at work. sitting [...] Frame: 4-6 Weeks Goal 3:: I approp [facility] for posture and hip management Goal Time [...] to be FAXED BACK to us at [phone] for Medicare purposes. For Medicare only, by [...] of pelvis and lower extremity Dr. Lisa iZegler Work Phone: Start: 09-11-2022 End: 09-12-2022 Procedure Note: See Note; NOTES: [facility] Radiology [address] [place] [address] HIP, UNI W/ Pelvis 2-3 Views MR#: [id number] Acct: [id number] Name: GALINA LATHAM Rep #: [id number] : 1970 F 52 From: Jamie Sweeney PCP: Dr. Lias Ziegler DO Status: DEP AMB Study: HIP, UNI W/ Pelvis 2-3 Views Date of Exam: 04/24 Exam# [id number] Ordering Dr: Lisa Ziegler DO INDICATION: PAIN [...] EDT , CC: Dr. Lisa Ziegler DO Foundation Stage Teacher: Signed Lisa Ziegler DO Work Phone: Start: 08-20-2022 End: 08-23-2022 Procedure Note: See Note; NOTES: [facility] [address] [place], [place] [address] OFFICE VISIT Date of Service: 08/20/22 MR#: [id number] Acct: [id number] Name: GALINA LATHAM Rep #: [id number] : 1970 Provider: Dr. 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) Labeling Specialist Required: No Is patient in pain?: Yes [...] mg PO QHS 08/12/21 [History Confirmed 08/20/22] PFSH Medical History (Updated 08/12/21 @ 07:17 by Piedad Grande HYDRAULIC JACK OPERATOR, HYDRAULIC JACK OPERATOR-C) Anxiety and depression Hepatomegaly History of frequent headaches History of marijuana use Hyperlipidemia Hypertension IBS (irritable bowel syndrome) Leukocytopenia Tobacco use Vitamin D deficiency Surgical History (Updated 08/12/21 @ 07:17 by Piedad Grande NP, HYDRAULIC JACK OPERATOR-C) History of carpal tunnel surgery History of [...] acute distress, well developed and well groomed HENLA Head: normal to inspection and normocephalic Ears: [...] End: 08-20-2022 Procedure Note: See Note; NOTES: [facility] Imaging Services [address] [place] [address] SCRN MAMM (CAD)W/KAMERON RAMIRESFATIMAH MR#: [id number] Acct: [id number] Name: GALINA LATHAM Rep #: [id number] : 1970 F 52 From: Raffaele dover MD PCP: Dr. Lisa Ziegler, DO Status: [facility] Study: SCRN MAMM (CAD)W/KAMERON BILAT Date of Exam: 08/02 Exam# [id number] Ordering Dr: Piedad Grande HYDRAULIC JACK OPERATOR HYDRAULIC JACK OPERATOR -C MAMMOGRAPHY - BILATERAL SCREENING REASON FOR [...] delay biopsy of a clinically suspicious abnormality. [id number] Electronically Signed: Raffaele Galloway MD at 10:47 EDT , CC: LYN Grande; Dr. Lisa Ziegler DO Foundation Stage Teacher: Signed Lisa Ziegler DO Work Phone: Start: 08-12-2021 Cytopathology procedure, preparation of smear, genital source Dr. Lisa Ziegler Work Phone: Start: 08-12-2021 Investigation of transfusion reaction Dr. Lisa Ziegler Work Phone: Start: 08-12-2021 End: 08-12-2021 Procedure Note: See Note; NOTES: [facility] 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) Allergies fluoxetine [From Prozac] Allergy (Verified 08/12/21 [...] (Updated 08/12/21 @ 07:17 by Piedad Grande HYDRAULIC JACK OPERATOR, HYDRAULIC JACK OPERATOR-C) Anxiety and depression Hepatomegaly History of frequent headaches History of marijuana use Hyperlipidemia Hypertension IBS (irritable bowel syndrome) Leukocytopenia Tobacco use Vitamin D deficiency Surgical History (Updated 08/12/21 @ 07:17 by Piedad Grande HYDRAULIC JACK OPERATOR, HYDRAULIC JACK OPERATOR-C) History of carpal tunnel surgery History of [...] oriented to person and oriented to place HENLA Head: normal to inspection Neck Neck: normal [...] exposure to STD: Plan - Piedad Grande HYDRAULIC JACK OPERATOR, HYDRAULIC JACK OPERATOR-C: Completed breast and pelvic exam Reviewed diet and exercise Pap NA SAMANTHA BV and trich, GCC and comp vaginal culture-call positives Mammogram today pending breast self exam encouraged monthly Colonoscopy 2020 RTO 1 year, prn with problems Piedad Grande PIZZAMAKER 08/12/21 0919 <Electronically signed by Piedad Grande NP HYDRAULIC JACK OPERATOR-C> Date Piedad Grande NP HYDRAULIC JACK OPERATOR-C Cosigner Signature: Date (if applicable) CC: Lisa Ziegler DO Work Phone: Start: 08-12-[address] Lisa Ziegler Work Phone: Start: 08-12-2021 End: 08-12-2021 Procedure Note: See Note; NOTES: [facility] Imaging Services [address] [place] [address] SCRN MAMM (CAD)W/KAMERON BILAT MR#: [id number] Acct: [id number] Name: GALINA LATHAM Rep #: [id number] : 1970 F 51 From: Raffaele dover MD PCP: Dr. Lisa Ziegler, Status: [facility] Study: SCRN MAMM (CAD)W/KAMERON BILAT Date of Exam: 08/01 06/24 Exam# [id number] Ordering Dr: Piedad Grande HYDRAULIC JACK OPERATOR HYDRAULIC JACK OPERATOR -C MAMMOGRAPHY - BILATERAL SCREENING REASON FOR [...] delay biopsy of a clinically suspicious abnormality. [id number] Electronically Signed: Raffaele Galloway MD at 8:48 EDT Reading Location ID and State: [address] [place] [address] , Service support , CC: LYN Grande; Dr. Lisa Ziegler DO Foundation Stage Teacher: Signed Lisa Ziegler DO Work Phone: Start: 06-16-2021 End: 06-16-2021 Procedure Note: See Note; NOTES: [facility] [address] [place], [place] [id number] OFFICE VISIT Date of Service: 06/16/21 MR#: [id number] Acct: [id number] Name: GALINA LATHAM Freda Rep #: [id number] : 1970 Provider: MARIA L ragland Age/Sex: 51/F [place] [facility] Status: Signed Intake Vital Signs 06/16/21 06:47 [...] nourished Orientation: alert, awake and oriented x3 HENMT Head: normal to inspection Ears: hearing grossly [...] the above. This note was generated with [employer] VM[employer] dictation software. It may contain incorrect words, spelling, and punctuation that were not noted in checking the note before signing. Plan Details Other Medications: New: azithromycin 2 tablets today, then 1 tablet daily on days 2 through 5 250 mg PO QDAY 6 tabs 0RF Other Orders: Orders: POC Rapid SARS Antigen Today 06/16/21 0706 <Electronically signed by Lalo LISA PA> Date Lalo Yu Signature: Date (if applicable) CC: Lisa Ziegler DO Work Phone: Start: 01-23-2021 End: 01-23-2021 Comments: See Note; NOTES: [facility] Physical [facility] [address] [place] [address] / REEVALUATION / MEDICARE RECERTIFICATION PHYSICAL THERAPY MR#: [id number] Acct: [id number] Name: GALINA LATHAM Rep #: [id number] : 1970 50 From: Getachew Dominguez DPT, OCS, CSCS Referring Dr.: Dr. Lisa Ziegler DO Status:REG RCR Insurance: [employer] [id number] Lisa Ziegler DO, [...] do not hesitate to contact me at [phone] by phone or if you have questions or concerns regarding this new plan of care! Sincerely, Getachew Dominguez, JACKYT, OCS, CSCS <Electronically signed by Getachew Dominguez DPT, OCS, CSCS> 01/23/21 9748 CC: Dr. Lisa Ziegler DO EBStephenie Signed For Medicare only, by signing this I certify the plan of care. _ Physicians Signature Date Lisa Ziegler DO Work Phone: Start: 12-09-2020 End: 12-10-2020 Comments: See Note; NOTES: [facility] [address] [place] [address] / REHABILITATION SERVICES INITIAL EVALUATION MR#: [id number] Acct: [id number] Name: GALINA LATHAM Rep #: [id number] : 1970 50 From: Kirk Herndon PT, Cert. T, OCS Referring Dr.: Dr. Lisa Ziegler DO Status: REG RCR Insurance: [employer] [id number] SELF PAY INSURANCE Patient's Visit Information GALINA LATHAM is a 50 year old F referred to Physical Therapy by Dr. Lisa Ziegler DO with a diagnosis of RIGHT SHOULDER PAIN,RIGHT IMPINGEMENT SYNDROME,RIGHT SHOULDER TENDONITIS. 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 SOCIAL: single. VOCATION: [employer] - Pain Right Shoulder Pain Intensity (Out [...] to be FAXED BACK to us at [phone] for Medicare purposes. For Medicare only, by [...] 08-30-2020 End: 08-30-2020 Comments: See Note; NOTES: [facility] Imaging Services [address] [place] [address] Breast Limited Unilateral MR#: [id number] Acct: [id number] Name: GALINA LATHAM Rep #: [id number] : 1970 F 50 From: Raffaele dover MD PCP: Dr. Lisa Ziegler DO Status: REG CLI Study: Breast Limited Unilateral Date of Exam: Exam# [id number] Ordering Dr: Eugenio Wheeler MD STUDY: ULTRASOUND [...] Lisa Ziegler DO; Dr. Eugenio Wheeler MD Foundation Stage Teacher: Signed Eugenio Wheeler MD Work Phone: Start: 08-30-2020 End: 09-02-2020 Comments: See Note; NOTES: [facility] Imaging Services [address] [place] [address] DIAG MAMM W/CAD, UNILAT MR#: [id number] Acct: [id number] Name: GALINA LATHAM Rep #: [id number] : 1970 F 50 From: Raffaele dover MD PCP: Dr. Lisa Ziegler DO Status: REG CLI Study: DIAG MAMM W/CAD, UNILAT Date of Exam: 08/30/20 Exam# [id number] Ordering Dr: Eugenio Wheeler MD MAMMOGRAPHY - [...] Lisa Ziegler, DO; Dr. Eugenio Wheeler MD Foundation Stage Teacher: Signed Eugenio Wheeler MD Work Phone: Start: 08-21-2020 End: 08-21-2020 Comments: See Note; NOTES: [facility] [address] [place] [address] OFFICE VISIT Date of Service: 08/21/20 MR#: [id number] Acct: [id number] Name: GALINA LATHAM Rep #: [id number] : 1970 Provider: Dr. Eugenio figueroa MD Age/Sex: 50/F Location: [facility] Status: Signed Intake Vital Signs 08/21/20 [...] 4 Chief Complaint: R Breast Birads IV Labeling Specialist Required: No Is patient in pain?: No [...] consult and recommendations will return to her [facility] Imaging Services [address] [place] [address] SCRN MAMM (CAD)W/KAMERON BILAT MR#: [id number] Name: GALINA LATHAM [facility] #:[id number] : 1970F 50 From: Raffaele Galloway MD PCP:Dr. Lisa Ziegler, DO Status:REG CLI Study:SCRN MAMM (CAD)W/KAMERON BILAT Date of Exam:08/08/20 Exam#[id number] Ordering Dr: Piedad Grande NP HYDRAULIC JACK OPERATOR-C MAMMOGRAPHY - BILATERAL SCREENING REASON FOR EXAM: [...] delay biopsy of a clinically suspicious abnormality. [id number] Electronically Signed: Raffaele Galloway MD at 10:00 EDT , Service support , Breast Ultrasound [facility] Imaging Services [address] [place] [address] Breast Limited Unilateral MR#: [id number] Name: GALINA LATHAM [facility] #:[id number] : 1970F 50 From: Raffaele Galloway MD PCP:Dr. Lisa Ziegler, Status:[facility] CLI Study:Breast Limited Unilateral Date of Exam:08/16/20 Exam#[id number] Ordering Dr: Katey Elizabeth MD STUDY: ULTRASOUND [...] Eugenio Wheeler M.D., F.A.C.S. Biopsy Breast Biopsy: 42808 US Guidance Assessment Plan Problems 1. Abnormal [...] R92.8 Coding Level of Care Code Attention Plastic Battery Assembler Diagnoses Abnormal mammogram of right breast R92.8 Abnormal ultrasound of breast R92.8 Additional Codes Biopsy - Breast Biopsy: 50972 US Guidance (11728) 08/21/20 1354 <Electronically signed by Eugenio Wheeler MD> Date Eugenio Yu Signature: Date (if applicable) CC: Dr. Lisa Ziegler DO; MD Lisa Gómez DO Work Phone: Start: 08-16-2020 End: 08-16-2020 Comments: See Note; NOTES: [facility] Imaging Services [address] [place] [address] Breast Limited Unilateral MR#: [id number] Acct: [id number] Name: GALINA LATHAM Rep #: [id number] : 1970 F 50 From: Raffaele dover MD PCP: Dr. Lisa Ziegler DO Status: REG CLI Study: Breast Limited Unilateral Date of Exam: Exam# [id number] Ordering Dr: Katey Elizabeth STUDY: ULTRASOUND BREAST [...] Lisa Ziegler DO; Dr. Katey Elizabeth MD Foundation Stage Teacher: Signed Lisa Ziegler DO Work Phone: Start: 08-08-2020 End: 08-08-2020 Comments: See Note; NOTES: [facility] [address] [place], [place] [address] OFFICE VISIT Date of Service: 08/08/20 MR#: [id number] Acct: [id number] Name: GALINA LATHAM Rep #: [id number] : 1970 Provider: Dr. 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 Lisa Ziegler, DO Status: [facility] Study: SCRN MAMM (CAD)W/KAMERON BILAT Date of Exam: 12/21 Exam# [id number] Ordering Dr: Piedad Grande HYDRAULIC JACK OPERATOR HYDRAULIC JACK OPERATOR -C MAMMOGRAPHY - BILATERAL SCREENING REASON FOR [...] delay biopsy of a clinically suspicious abnormality. [id number] Electronically Signed: Raffaele Galloway MD at 10:00 EDT , Service support , CC: LYN Grande; Dr. Lisa Ziegler DO Foundation Stage Teacher: Signed Lisa Ziegler DO Work Phone: Start: 07-24-2019 End: 07-24-2019 Vp Construction Office Visit Report Comments: See Note; NOTES: [facility] [place] 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 complaint of vaginal discharge. No sexual partner Doing well since [facility] 01/2019. Ovaries remain History of abnormal PAP: no Last mammogram: today/pending History of abnormal mammogram: benign biopsy Colon cancer screening: age 52 Other preventative health care screenings: Dr. Ming BARRIOS Const Constitutional: Denies fatigue, weight gain or [...] alert, oriented to person, oriented to place HENLA Head: normal to inspection Neck Neck: normal [...] 1 year, prn with problems Piedad Grande PIZZAMAKER Orders Orders: Coding Level of Care Code Off vis,est,prev 40-64yrs Diagnoses Encounter for gynecological examination with abnormal finding Z01.411 Gynecological examination findings: abnormal findings PRESENT Vaginal discharge N89.8 Screen for STD (sexually transmitted disease) Z11.3 07/24/19 0828 <Electronically signed by Piedad NICHOLSON> Date Piedad NICHOLSON Cosigner Signature: Date (if applicable) CC: Lisa Ziegler Start: 07-24-2019 End: 07-24-2019 SCREEN MAMM (CAD) W/KAMERON NEAL Comments: See Note; NOTES: [facility] Imaging Services [address] [place] [address] SCREEN MAMM (CAD) W/KAMERON NEAL MR#: [id number] Acct: [id number] Name: GALINA LATHAM Rep #: [id number] : 1970 F 49 From: Raffaele Galloway MD PCP: iLsa Ziegler DO Status: [facility] Study: SCREEN MAMM (CAD) W/KAMERON BILAT Date of Exam: 07/24/19 Exam# [id number] Ordering Dr: Piedad Grande HYDRAULIC JACK OPERATOR-C MAMMOGRAPHY - BILATERAL SCREENING REASON FOR EXAM: [...] delay biopsy of a clinically suspicious abnormality. [id number] Electronically Signed: Raffaele Galloway, at 8:40 EDT , Service support , CC: JUSTINE Grande; Lisa Ziegler DO Foundation Stage Teacher: Signed Lisa Ziegler Work Phone: Start: 03-16-2019 End: 03-16-2019 Vp Construction Office Visit Report Comments: See Note; NOTES: [facility] [address] [place] [address] OFFICE VISIT Date of Service: 03/16/19 MR#: [id number] Acct: [id number] Name: GALINA LATHAM Rep #: [id number] : 1970 Provider: JUSTINE Grande Age/Sex: 48/F Location: [facility] Status: Signed Intake Vital Signs03/16/19 Body Mass Index (BMI) 31.6 03/16/19 Height 5 ft 7 in 03/16/19 Weight: 191 lb 03/16/19 Body Mass Index (BMI) 29.9 03/16/19 Blood Pressure 110/80 Intake Visit Reasons: post op discharge Labeling Specialist Required: No Accompanied by: Mother Is patient [...] ea PO DAILY 01/31/19 [History Confirmed 03/16/19] [place]-3S/Dha/Epa/Fish Oil [Fish Oil [place]-3 Softgel] 1 ea PO DAILY 01/31/19 [History [...] and Physical Exam Comments: See Note; NOTES: [facility] Medical Records Department [address] [place] [address] History and Physical 02/01/19 2222 MR#: [id number] Acct: [id number] Name: GALINA LATHAM Rep #: [id number] : 1970 48 From: Katey Elizabeth MD PCP: Lisa Ziegler DO Status: REG SD Y Location: [place] [address] ADDENDUM by Katey Elizabeth MD on 02/07/19 [...] LAVH Chief Complaint: Pre-op TVH Possible LAVH Labeling Specialist Required: No Is patient in pain?: No [...] history: single- [employer] shift HPI TIMS TVH BS poss LAVH: Details: GALINA LATHAM is [...] PMDD (premenstrual dysphoric disorder) F32.81 Dysmenorrhea N94.6 02/01/19 2222 <Electronically signed by Katey Elizabeth MD> Date Katey Elizabeth MD Cosigner Signature: Date (if applicable) CC: Lisa Ziegler DO; Katey Elizabeth MD Signed Lisa Ziegler Start: 02-07-2019 End: 02-07-2019 Discharge Instruction Comments: See Note; NOTES: [facility] Records Department [address] [place] [address] Instructions for Home/Discharge Instructions 02/07/19 1200 MR#: [id number] Acct: [id number] Name: GALINA LATHAM Rep #: [id number] : 1970 48 From: Katey Elizabeth MD PCP: Lisa Ziegler DO Status: REG MIC Discharge Diet: No Restrictions Discharge Activity: Return [...] Naproxen 500 mg PO Q12H PRN 01/31/19 [place]-3S/Dha/Epa/Fish Oil [Fish Oil [place]-3 Softgel] 1 ea PO DAILY 01/31/19 Naproxen [Naprosyn] 250 - 500 mg PO Q8H PRN PRN #30 tab 02/07/19 Oxycodone HCl/Acetaminophen [Percocet 5-325] 1 - 2 tab PO Q4H PRN PRN 7 Days #15 tab 02/07/19 The following prescriptions were given: Naproxen [Naprosyn] 250 - 500 mg PO Q8H PRN PRN #30 tab PRN Reason: MILD PAIN Transmission Status: Received by [facility] Oxycodone HCl/Acetaminophen [Percocet 5-325] 1 - 2 tab PO Q4H PRN PRN 7 Days #15 tab PRN Reason: Pain Transmission Status: Received by [facility] Primary Care Physician: Lisa Ziegler DO [Primary Care Provider] - Test Results: Test results from this visit will be discussed in further detail at your follow-up appointment, if applicable. Please Follow Up With: Katey Elizabeth MD - [phone] 02/07/19 1201 <Electronically signed by Katey Elizabeth MD> Date Katey Elizabeth MD CC: Lisa Ziegler DO Signed Lisa Ziegler Start: 02-07-2019 End: 02-07-2019 Operative Report Comments: See Note; NOTES: [facility] Medical Records Department [address] [place] [address] Operative Report 02/07/19 1155 MR#: [id number] Acct: [id number] Name: GALINA LATHAM Rep #: [id number] : 1970 48 From: Katey Elizabeth MD PCP: Lisa Ziegler DO Status: [facility] Y Location: [place] [address] Problem List (1) Dysmenorrhea Status: Chronic Comment: ERAS- same day planned, declined iud, lysteda, plan tv bs possible LAVH (2) PMDD (premenstrual dysphoric disorder) Status: Chronic Report of Operation Date of Procedure: 02/07/19 Pre-Operative Diagnosis: dysmenorrhea, pmdd Post-Operative Diagnosis: same Surgery/Procedure Performed:: tvh bs Description of Surgical Findings:: nl uterus cystic tubes corn sheller operator: Melanie Ramirez Type of Anesthesia:: General Special [...] was noted. The vagina was closed with [id number] 0 Vicryl pop offs including the posterior and anterior peritoneum in the reapproximation. Excellent hemostasis was noted. All instruments removed from the vagina clear urine was noted at the end of the procedure and patient was awoken and taken recovery in stable condition. Multi Select Codes - Urinary/Genital Urinary/Genital CPT Codes: 28270 TVH+BS/O <250gr uterus 02/07/19 1158 <Electronically signed by Katey Elizabeth MD> Date Katey Elizabeth MD CC: Lisa Ziegler DO; Katey Elizabeth MD Signed Lisa Ziegler Start: 02-01-2019 End: 02-01-2019 History and Physical Exam Comments: See Note; NOTES: [facility] Medical Records Department [address] [place] [address] History and Physical 02/01/192 MR#: [id number] Acct: [id number] Name: GALINA LATHAM Rep #: [id number] : 1970 48 From: Katey Elizabeth MD [...] LAVH Chief Complaint: Pre-op TVH Possible LAVH Labeling Specialist Required: No Is patient in pain?: No [...] history: single- [employer] third shift HPI ERAS TVH BS poss LAVH: Details: GALINA LATHAM is [...] Pelvic (Non ) Comments: See Note; NOTES: [facility] Imaging Services [address] [place] [address] Pelvic (Non ) MR#: [id number] Acct: [id number] Name: GALINA LATHAM Rep #: [id number] : 1970 F 48 From: Akil Sy MD PCP: Lisa Ziegler DO Status: REG CLI Study: Pelvic (Non ) Date of Exam: 11/28/18 Exam# [id number] Ordering Dr: Piedad Grande HYDRAULIC JACK OPERATOR-Penelope STUDY: ULTRASOUND OF THE FEMALE PELVIS - [...] , CC: JUSTINE Grande; Lisa Ziegler DO Foundation Stage Teacher: Signed Lisa Ziegler Work Phone: Start: 11-28-2018 End: 11-29-2018 Transvaginal Non- Comments: See Note; NOTES: [facility] Imaging Services [address] [place] [address] Transvaginal Non- MR#: [id number] Acct: [id number] Name: GALINA LATHAM Rep #: [id number] : 1970 F 48 From: Akil Sy MD PCP: Lisa Ziegler DO Status: REG CLI Study: Transvaginal Non- Date of Exam: 11/28/18 Exam# [id number] Ordering Dr: Piedad Grande HYDRAULIC JACK OPERATOR-Penelope STUDY: ULTRASOUND OF THE FEMALE PELVIS - [...] , CC: JUSTINE Grande; Lisa Ziegler DO Foundation Stage Teacher: Signed Lisa Ziegler Work Phone: Start: 11-16-2018 End: 11-16-2018 Vp Construction Office Visit Report Comments: See Note; NOTES: [facility] [place] [address] [place] [address] OFFICE VISIT Date of Service: 11/16/18 MR#: [id number] Acct: [id number] Name: GALINA LATHAM Rep #: [id number] : 1970 Provider: JUSTINE Grande Age/Sex: 48/F Location: [facility] Status: Signed Intake Vital Signs11/16/18 Body Mass Index (BMI) 31.3 11/16/18 Height 5 ft 7 in 11/16/18 Weight: 207 lb 6 oz 11/16/18 Body Mass Index (BMI) 32.4 11/16/18 Blood Pressure 132/90 H Intake Visit Reasons: PAINFUL PERIODS Labeling Specialist Required: No Is patient in pain?: Yes [...] Social History (Updated 11/16/18 @ 09:56 by Piedad Grande NP-C) Smoking Status: Current every day smoker alcohol [...] Denies STD concerns. States this has been snf problem, had discussed in May [address] Elizabeth. She is missing work one day most months and becoming problematic for her job([employer]). They have suggested intermittent FMLA. Grav ). [...] signed by Piedad NICHOLSON> Date Piedad Grande HYDRAULIC JACK OPERATOR-C Cosigner Signature: Date (if applicable) CC: Lisa Ziegler Start: 08-16-2018 End: 08-16-2018 12 lead ECG Comments: See Note; NOTES: [facility] Cardiovascular Services [address] [place] [address] [place] [address] 12 Lead EKG 08/14/18 1440 MR#: [id number] Acct: [id number] Name: GALINA LATHAM Rep #: [id number] : 1970 48 From: Edd Saxena MD [...] ECG Confirmed by GOPI KAPLAN, EDD ([id number]), multimedia editor MARQUIS STOREY ([id number]) on 08/16/2018 3:58:34 PM Referred By: CHET Confirmed By:EDD SAXENA MD 08/16/18 1558 Date Edd Saxena MD CC: MD Jas Poole; Lisa Ziegler DO Signed Lisa Ziegler Start: 08-14-2018 End: 08-14-2018 Emergency Department Summary Comments: See Note; NOTES: [facility] Medical Records Department [address] [place] [address] Emergency Department Summary 08/14/18 1504 MR#: [id number] Acct: [id number] Name: GALINA LATHAM Rep #: [id number] : 1970 48 From: Jean-Pierre Poole MD [...] no chronic medications a history of migraines 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 It may contain incorrect words, [...] your Primary Care Provider. Call [facility] ([phone]) or report to the closest Emergency Room. Call 911 if necessary. 08/14/18 2258 <Electronically signed by Jean-Pierre Poole MD> Date Jean-Pierre Poole MD Cosigner Signature (If Indicated): Date CC: Lisanate Mccurdy Start: 08-14-2018 End: 08-14-2018 Discharge Instruction Comments: See Note; NOTES: [facility] Medical Records Department [address] [place] [address] Discharge Instruction 08/14/181557 MR#: [id number] Acct: [id number] Name: GALINA LATHAM Rep #: [id number] : 1970 48 From: Jean-Pierre Poole MD PCP: Lisa Ziegler DO Status: REG ER ED Disposition - Plan for ED Patient: Instructions: ED Cephalgia Unspecified, Carbon Monoxide Poisoning, ED CO Poisoning Referrals: Lisa Ziegler, [Primary Care Provider] - What to do if you have Problems For any increased pain, shortness of breath, bleeding, nausea or vomiting, chest pain, or any unexpected problems, contact your Primary Care Provider. Call [facility] ([phone]) or report to the closest Emergency Room. Call 911 if necessary. 08/14/18 1559 <Electronically signed by Jean-Pierre Poole MD> Date Jean-Pierre Poole MD Cosigner Signature (If Indicated): Date CC: Lisanate Ziegler DO Jaranate Ziegler Start: 08-14-2018 End: 08-14-2018 Chest 1 View (Portable) Comments: See Note; NOTES: [facility] Imaging Services [address] [place] [address] Chest 1 View (Portable) MR#: [id number] Acct: [id number] Name: GALINA LATHAM Rep #: [id number] : 1970 F 48 From: Marquis Rutherford DO PCP: Lisa Ziegler DO Status: REG ER Study: Chest 1 View (Portable) Date of Exam: 08/14/18 Exam# [id number] Ordering Dr: Jean-Pierre Poole MD STUDY: X-RAY [...] Marquis Rutherford DO at 15:18 EDT Tel [phone], Service support , CC: MD Jas Poole; Lisa Ziegler DO Foundation Stage Teacher: Signed Lisa Ziegler Start: 08-14-2018 End: 08-14-2018 CTA Head W/WO Contrast Comments: See Note; NOTES: [facility] Imaging Services [address] [place], [place] [address] CTA Head W/WO Contrast MR#: [id number] Acct: [id number] Name: GALINA LATHAM Rep #: [id number] : 1970 F 48 From: Marquis Rutherford DO PCP: Lisa Ziegler DO Status: REG ER Study: CTA Head W/WO Contrast Date of Exam: 08/14/18 Exam# [id number] Ordering Dr: Jean-Pierre Poole MD STUDY: CTA [...] There is no demonstrated aneurysm of the [place]. There is no demonstrated abnormality of the visualized brain. CT/CTA Head W/WO Contrast IMPRESSION: No demonstrated aneurysm. 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 Electronically Signed: Marquis Rutherford DO at 16:04 EDT Tel [phone], Service support , CC: MD Jas Ziegler DO Foundation Stage Teacher: Signed Lisa Ziegler Start: 08-14-2018 End: 08-14-2018 CTA Neck W/WO Contrast Comments: See Note; NOTES: [facility] Imaging Services [address] [place] [address] CTA Neck W/WO Contrast MR#: [id number] Acct: [id number] Name: GALINA LATHAM Rep #: [id number] : 1970 F 48 From: Eugenio Crain MD PCP: Lisa Ziegler DO Status: REG ER Study: CTA Neck W/WO Contrast Date of Exam: 08/14/18 Exam# [id number] Ordering Dr: Jean-Pierre Poole MD STUDY: CTA [...] Tel , Service support , CC: MD Jas Poole; Lisa Ziegler DO Foundation Stage Teacher: Signed Lisa Ziegler Start: 05-24-2018 End: 05-24-2018 Vp Construction Office Visit Report Comments: See Note; NOTES: [facility] [address] [place] [address] OFFICE VISIT Date of Service: 05/24/18 MR#: [id number] Acct: [id number] Name: GALINA LATHAM Rep #: [id number] : 1970 Provider: Katey Elizabeth MD Age/Sex: 48/F Location: [facility] Status: Signed Intake Vital Signs05/24/18 Body Mass Index (BMI) 33.7 05/24/18 Height 5 ft 7 in 05/24/18 Weight: 216 lb 05/24/18 Body Mass Index (BMI) 33.8 05/24/18 Blood Pressure 120/82 H Intake Visit Reasons: ANNUAL Chief Complaint: est annual Labeling Specialist Required: No Is patient in pain?: No [...] no acute distress, well developed, well groomed HENLA Head: normal to inspection, normocephalic Ears: hearing [...] Emergency Department Summary Comments: See Note; NOTES: [facility] Medical Records Department [address] [place] [address] Emergency Department Summary 04/14/18 0437 MR#: [id number] Acct: [id number] Name: GALINA LATHAM Rep #: [id number] : 1970 48 From: Ricky Jacobsen PCP: [...] muscle strain This note was generated with YEOXIN VMall dictation software. It may contain incorrect words, [...] your Primary Care Provider. Call [facility] ([phone]) or report to the closest Emergency Room. Call 911 if necessary. 04/14/18 0439 <Electronically signed by Ricky Jacobsen> Date Ricky Jacobsen Cosigner Signature (If Indicated): Date CC: Lisa Mccurdy Start: 03-15-2018 End: 03-15-2018 SCREENING MAMM (CAD), BILAT Comments: See Note; NOTES: [facility] Imaging Services [address] [place] [address] SCREENING MAMM (CAD), BILAT MR#: [id number] Acct: [id number] Name: GALINA LATHAM Rep #: [id number] : 1970 F 47 From: Raffaele Galloway MD PCP: Lisa Ziegler DO Status: REG CLI Study: SCREENING MAMM (CAD), BILAT Date of Exam: 03/15/18 Exam# [id number] Ordering Dr: Katey Elizabeth MD MAMMOGRAPHY - [...] delay biopsy of a clinically suspicious abnormality. [id number] Electronically Signed: Raffaele Galloway MD at 14:33 EST Tel [phone], Service support , CC: Lisa Ziegler DO; Katey Elizabeth MD Foundation Stage Teacher: Signed Lisa Ziegler Start: 03-15-2017 End: 03-15-2017 PT D/C Summary (1) Comments: See Note; NOTES: [facility] Physical Therapy [facility] [address] [place] [address] Fax REHABILITATION SERVICES DISCHARGE SUMMARY MR#: [id number] Acct: [id number] Name: GALINA LATHAM Rep #: [id number] : 1970 46 From: Getachew Dominguez DPT, OCS, CSCS Referring DrStephanie: Lisa Ziegler DO Status: REG RCR Insurance: [facility] - PT D/C Summary It has been [...] and glutes still rather weak. No questions mercy [facility] HEP update - advised to call with [...] please feel free to call me at [phone]. Thank you for the referral of this patient. Sincerely, Getachew Dominguez, DPT, OC <Electronically signed by Getachew Dominguez DPT, OCS, CSCS> 03/15/17 0648 CC: Lisa Ziegler DO EBG Signed Lisa Ziegler Start: 03-11-2017 End: 03-11-2017 Breast Limited Unilateral Comments: See Note; NOTES: [facility] Imaging Services [address] [place] [address] Breast Limited Unilateral MR#: [id number] Acct: [id number] Name: GALINA LATHAM Rep #: [id number] : 1970 F 46 From: Raffaele Galloway MD PCP: Lisa Ziegler DO Status: REG CLI Study: Breast Limited Unilateral Date of Exam: 03/11/17 Exam# [id number] Ordering Dr: Katey Elizabeth MD STUDY: ULTRASOUND [...] Raffaele Galloway MD at 12:30 EST Tel [phone], Service support , CC: Lisa Ziegler DO; Katey Elizabeth MD Foundation Stage Teacher: Signed Lisa Ziegler Start: 03-11-2017 End: 03-11-2017 DIAG MAMM W/CAD, BILAT Comments: See Note; NOTES: [facility] Imaging Services [address] [place] [address] DIAG MAMM W/CAD, BILAT MR#: [id number] Acct: [id number] Name: GALINA LATHAM Rep #: [id number] : 1970 F 46 From: Raffaele Galloway MD PCP: Lisa Ziegler DO Status: REG CLI Study: DIAG MAMM W/CAD, BILAT Date of Exam: 03/11/17 Exam# [id number] Ordering Dr: Katey Elizabeth MD MAMMOGRAPHY - [...] Raffaele Galloway MD at 11:02 EST Tel [phone], Service support , CC: Lisa Ziegler DO; Katey Elizabeth MD Foundation Stage Teacher: Signed Lisa Ziegler Start: 03-01-2017 End: 03-01-2017 Inital Evaluation (1) - PT Comments: See Note; NOTES: [facility] Physical Therapy [facility] [address] [place], [place] [address] Fax REHABILITATION SERVICES INITIAL EVALUATION MR#: [id number] Acct: [id number] Name: GALINA LATHAM Rep #: [id number] : 1970 46 From: Getachew Dominguez DPT, OCS, CSCS Referring Dr.: Lisa Ziegler DO Status: REG R Insurance: [facility] Patient's Visit Information GALINA LATHAM is [...] shopping. 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 Sleep is OK most of time but hard to get out of bed in am. Been sleeping on couch. Basic ADLs are Ok and doable but sometimes hurt worse. Enjoys messing with computers and watching live bands but has to stay out of the [facility] because of this. [place] was [...] to be FAXED BACK to us at [phone] for Medicare purposes. Please let me know if there are questions or concerns regarding this plan of care. Physician Signature: Date: <Electronically signed by Getachew Dominguez DPT, OCS, CSCS> 03/01/17 0649 CC: Lisa Ziegler DO EBG Signed For Medicare only, by signing this I certify the plan of care. _ Physicians Signature Date Lisa Coronelon Start: 02-25-2017 End: 02-26-2017 L/S Spine Min 4 Views Comments: See Note; NOTES: [facility] Imaging Services [address] [place] [address] L/S Spine Min 4 Views MR#: [id number] Acct: [id number] Name: GALINA LATHAM Rep #: [id number] : 1970 F 46 From: Raffaele Galloway MD PCP: Lisa Ziegler DO Status: REG CLI Study: L/S Spine Min 4 Views Date of Exam: 02/25/17 Exam# [id number] Ordering Dr: Tristan Bucio STUDY: X-RAY - [...] Raffaele Galloway MD at 12:25 EDT Tel [phone], Service support , CC: Tristan Bucio; Lisa Ziegler DO Foundation Stage Teacher: Signed Lisa Ziegler Work Phone: Start: 12-11-2016 End: 12-11-2016 Transvaginal Non- Comments: See Note; NOTES: [facility] Imaging Services [address] [place] [address] Transvaginal Non- MR#: [id number] Acct: [id number] Name: GALINA LATHAM Rep #: [id number] : 1970 F 46 From: Jose Serrato MD PCP: Lisa Ziegler DO Status: REG CLI Study: Transvaginal Non- Date of Exam: 12/11/16 Exam# [id number] Ordering Dr: Lisa Ziegler DO STUDY: ULTRASOUND [...] Service support , CC: Lisa Ziegler DO Foundation Stage Teacher: Signed Lisa Ziegler Work Phone: Start: 12-11-2016 End: 12-11-2016 Pelvic (Non ) Comments: See Note; NOTES: [facility] Imaging Services [address] [place] [address] Pelvic (Non ) MR#: [id number] Acct: [id number] Name: GALINA LATHAM Rep #: [id number] : 1970 F 46 From: Jose Serrato MD PCP: Lisa Ziegler DO Status: REG CLI Study: Pelvic (Non ) Date of Exam: 12/11/16 Exam# [id number] Ordering Dr: Lisa Ziegler DO STUDY: ULTRASOUND [...] Service support , CC: Lisa Ziegler DO Foundation Stage Teacher: Signed Lisa Ziegler Work Phone: Start: 12-03-2016 End: 12-17-2016 Abdomen/Pelvis without Cont Comments: See Note; NOTES: [facility] Imaging Services [address] [place] [address] Abdomen/Pelvis without Cont MR#: [id number] Acct: [id number] Name: GALINA LATHAM Rep #: [id number] : 1970 F 46 From: Amina Storey MD PCP: Lisa Ziegler DO Status: REG CLI Study: Abdomen/Pelvis without Cont Date of Exam: 12/03/16 Exam# [id number] Ordering Dr: Janelle Oates HYDRAULIC JACK OPERATOR-C STUDY: CT ABDOMEN AND PELVIS WITHOUT CONTRAST [...] , CC: Janelle Oates; Lisa Ziegler DO Foundation Stage Teacher: Signed Janelle Oates Start: 04-07-2016 End: 04-07-2016 Abdomen/Pelvis without Cont Comments: See Note; NOTES: [facility] Imaging Services [address] [place] [address] Verdana 4d Abdomen/Pelvis without Cont MR#: [id number] Acct: [id number] Name: GALINA LATHAM Rep #: [id number] : 1970 F 46 From: Raffaele Galloway MD PCP: Lisa Ziegler DO Status: REG CLI Study: Abdomen/Pelvis without Cont Date of Exam: 04/07/16 Exam# [id number] Ordering Dr: Cherelle Blankenship STUDY: CT ABDOMEN [...] Raffaele Galloway MD at 10:52 EST Tel [phone], Service support [phone], CC: Cherelle Blankenship; Lisa Ziegler DO Foundation Stage Teacher: Signed Cherelle Blankenship Work Phone: Start: 09-17-2015 End: 09-17-2015 PT D/C Summary (1) Comments: See Note; NOTES: [facility] Physical Therapy [facility] [address] [place] [address]. [address] [place] [address] Fax REHABILITATION SERVICES DISCHARGE SUMMARY MR#: [id number] Acct: [id number] Name: GALINA LAHTAM Rep #: [id number] : 1970 45 From: Getachew Dominguez DPT, OCS, CSCS Referring DrStephanie: Lisa Ziegler DO Status: REG RCR Insurance: [facility] - PT D/C Summary It has been [...] please feel free to call me at [phone]. Thank you for the referral of this patient. Sincerely, Getachew Dominguez <Electronically signed by Getachew Dominguez DPT, RUDDY, CSCS> 09/17/15 1151 CC: Lisa Ziegler DO EBG Signed Lisa Ziegler Start: 08-17-2015 End: 08-17-2015 Discharge Instruction Comments: See Note; NOTES: [facility] Medical Records Department [address] [place] [address] Discharge Instruction 07/28/15 0624 MR#: [id number] Acct: [id number] Name: GALINA LATHAM Rep #: [id number] : 1970 45 From: Jaime Albarran MD [...] problems, contact your doctor. Call [facility] ([phone]) or report to the closest Emergency Room. Call 911 if necessary. 08/17/15 2200 <Electronically signed by Jaime Albarran MD> Date Jaime Albarran MD Cosigner Signature (If Indicated): Date CC: Lisa Mccurdy Start: 08-17-2015 End: 08-17-2015 Emergency Department Summary Comments: See Note; NOTES: [facility] Medical Records Department [address] [place] [address] Emergency Department Summary MR#: [id number] Acct: [id number] Name: GALINA LATHAM Rep #: [id number] : 1970 45 From: Jaime Albarran MD PCP: Lisa Ziegler DO Status: DEP ER DATE OF SERVICE: 07/28/2015 CHIEF COMPLAINT: [...] infection. Jaime Albarran MD T: NTS JOB: [id number] 08/17/150 <Electronically signed by Jaime Albarran MD> Date Jaime Albarran MD Cosigner Signature (If Indicated): Date CC: Lisa Ziegler DO Date Dictated: 07/28/15626 Date Transcribed: 07/28/15626 Foundation Stage Teacher: Signed Lisa Ziegler Start: 08-12-2015 End: 08-12-2015 Inital Evaluation (1) - PT Comments: See Note; NOTES: [facility] Physical Therapy [facility] [address] [place] [address]. 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 Electronically Signed: Raffaele Galloway MD at 8:57 EDT Tel [phone], Service support [phone], CC: Lisa Ziegler DO Foundation Stage Teacher: Signed Lisa Ziegler Work Phone: Start: 11-08-2014 End: 11-08-2014 Brain/Head W/WO Contrast Comments: See Note; NOTES: [facility] Imaging Services [address] [place] [address] CAT Scan Report MR#: [id number] Acct: [id number] Name: GALINA LATHAM Rep #: [id number] : 1970 F 44 From: Raffaele Galloway MD PCP: Lisa Ziegler DO Status: REG CLI Study: Brain/Head W/WO Contrast Date of Exam: 11/08/14 Exam# [id number] Ordering Dr: Lisa Ziegler DO STUDY: CT [...] Raffaele Galloway MD at 14:07 EDT Tel [phone], Service support [phone], CC: Lisa Ziegler DO Foundation Stage Teacher: Signed Lisa Ziegler Work Phone: Start: 06-26-2013 End: 06-26-2013 Cerv Spine 4 or 5 Views Comments: See Note; NOTES: [facility] Imaging Services [address] [place] [address] Radiology Report MR#: [id number] Acct: [id number] Name: GALINA LATHAM Rep #: [id number] : 1970 F 43 From: Ramírez Hunter DO PCP: Status: REG CLI Study: Cerv Spine 4 or 5 Views Date of Exam: 06/26/13 Exam# [id number] Ordering Dr: Lisa Ziegler DO STUDY: X-RAY [...] Lei Gaviria D.O. 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 Cholecystectomy Isabel Slarb EDGER HAND Cholecystectomy Eliecer Mikael EDGER HAND Cholecystectomy Eliecer Mikael EDGER HAND Cholecystectomy Isabel Slarb EDGER HAND Cholecystectomy CHRISTIANO Russe ll EDGER HAND Cholecystectomy Isabel Slarb EDGER HAND H/O: hysterectomy History of tot al vaginal [...] Dr Elizabeth February 07 2019 Hysterectomy Samara Teo Comment on above: Dr Elizabeth February 07 2019 Hysterectomy Isabel Slarb LP N Hysterectomy Eliecer Mikael LP N Hysterectomy Eliecer Mikael LP N Hysterectomy Isabel Slarb LP N Hysterectomy CHRISTIANO Carlos EDGER HAND Hysterectomy Isabel Slarb LP N Isabel Slarb LP N Eliecer Mikael LP N Eliecer Mikael LP N Isabel Slarb LP N CHRISTIANO Carlos EDGER HAND Isabel Slarb LP N Plan of Treatment Date Care Activity Detail Author Start: 02-23-2025 Computed tomography of abdomen and pelvis with contrast Abdomen/Pelvis WITH Contrast [facility] Start: 02-23-2025 Patient encounter procedure Registered Clinical -Cat Scan [facility] Work Phone: Start: 02-21-2025 End: 02-21-2025 Patient encounter procedure Departed Clinical -Pulmonary Services/Neurology Work Phone: Start: 02-06-2025 Radionuclide gastric emptying study [facility] Start: 09-18-2024 Screening mammography SCRN LATOYA M (CAD)W/KAMERON BILAT [facility] Start: 12-02-2020 Procedure Education [facility] Work Phone: Start: 07-19-2020 Procedure Education [facility]; [facility] Work Phone: Start: 07-19-2020 Provider Instruction s for Treatment [facility] Work Phone: Start: 07-19-2020 Lipid panel LIPID PANEL (33746) [facility] Work Phone: Start: 07-19-2020 Comprehensive metabo lic panel METABOLIC PANEL, COMPREHENSIVE (20591) [facility] Work Phone: Start: 07-19-2020 Blood count complete auto&auto difrntl wbc CBC W/AUTO DIFF WBC (21004) [facility] Work [...] Mammogram, both breasts Mammogram, Diagnostic, both breasts [facility] Start: 01-25-2017 End: 01-25-2017 Us exam, breast(s) US Breast(s) [facility] Start: 12-24-2016 Provider Instruction s for Treatment [facility] Work Phone: Start: 12-04-2016 Provider Instruction s for Treatment [facility] Work Phone: Start: 12-03-2016 C-reactive protein [facility]; [facility] Work Phone: Start: 12-03-2016 CRP [Mass/Vol] C-REACTIVE PRO TEIN (21598) [facility] Work Phone: Comment on above: add on Start: 12-03-2016 Procedure Education [facility] Work Phone: Start: 12-03-2016 Provider Instruction s for Treatment [facility] Work Phone: Start: 12-03-2016 CBC, PLATELETS & MAN UAL DIFF (85405) [facility] Work Phone: Start: 12-03-2016 [...] Work Phone: Start: 08-15-2015 TSH Qn TSH (56745) [facility] Work Phone: Start: [...] Work Phone: Start: 11-07-2013 TSH Qn TSH (36453) [facility] Work Phone: Start: 09-08-2013 Assay of thyroid stimulating hormone tsh [facility] Work Phone: Start: 09-08-2013 TSH Qn TSH (08577) [facility] Work Phone: Start: [...] 05-11-2007 Glucose [Mass/Vol] Glucose, PP /2 Hour (82096) [facility] Work Phone: Comment on above: also send results to dr tiara baltazar at [facility] Start: 05-11-2007 Glucose quantitative blood xcpt reagent [...] for Treatment [facility] Work Phone: Alpha 1 antitrypsin [Mass/volume] in Serum or Plasma [facility] Work Phone: Comprehensive [...] Immunization Date Immunization Notes Care Provider [facility] 12-02-2020 TD(adult) unspecifie d formulation Lisa Ming DO Work Phone: [facility] Work Phone: 12-02-2020 tetanus and diphther ia toxoids, adsorbed, preservative free, for adult use (2 Lf of tetanus toxoid and 2 Lf of diphtheria toxoid) Lisa Ziegler DO Work Phone: [facility]; [facility] Work Phone: 05-03-2012 influenza, seasonal, injectable Lisa Ziegler [facility] Work Phone: 12-26-2008 tetanus toxoid, reduced diphtheria toxoid, and acellular pertussis vaccine, adsorbed Lisa Ziegler [facility] Work Phone: Comment on above: Lot #[id number] 06/07/2010Site-right deltoidDose0.5mlgiven by Kimber Muir LPN Payers Date Payer Category Payer Self-pay [id number] 2022 Unknown [id number] 2020 Unknown [id number] 2019 Unknown [id number] 2017 Unknown [id number] 2016 Unknown [id number] 2014 Unknown [id number] 2013 Unknown [id number] 2010 Unknown [id number] 2006 Private Health Insurance [id number] 1970 Unknown [id number] 2.16.84 [id number] Unknown Unknown [id number] Unknown [id number] 2.16.8 [id number] Unknown [id number] 2.16.8 [id number] Unknown [id number] 2.16.8 [id number] Unknown [id number] 2.16.8 [id number] Unknown [id number] 2.16.8 [id number] Unknown [id number] 2.16.8 [id number] Unknown [id number] 2.16.8 [id number] Unknown [id number] 2.16.8 [id number] Unknown [id number] 2.16.8 [id number] Unknown [id number] 2.16.8 [id number] Social History Date Type Detail Facility Alcohol Use [facility] Use [facility] Work Phone: Comment on above: Occasional alcohol u se 5-6 QD Light Lives with parents pearl Smokes 1.5 packs of cigarettes per day 09/09/11 Start: 08-12-2021 End: 08-20-2022 Tobacco smoking status NHIS Unknown if ever smoked [facility] Start: 01-31-2019 Cigarettes [facility] Start: 1970 Sex Assigned At Female [facility] Start: 08-20-2022 Tobacco smoking stat us NHIS Current Heavy tobacco smoker [facility] Sex Female [facility] Clinical Notes 12-11-2022 to 02-06-2025 Note Date & Type Note Facility 02-06-2025 Evaluation note Diagnosis Onset Date Resolution IBS (irritable bowel syndrome) acute February 06 7:27am [facility] Work Phone: 1(664) 719-102009-29-2025 Radiology Diagnostic study note [facility] Imaging Services [address] [place], [place] [address] Low Dose CT Lung Screening MR#: [id number] Acct: [id number] Name: GALINA LATHAM Rep #: [id number] : 1970 F 54 From: Mg Lockett MD PCP: Dr. Lisa Ziegler DO Status: RE G CLI Study:Low Dose CT Lung Screening Date of Exam : 01/29/25 Exam# [id number] Ordering Dr: Aristeo Ziegler DO PROCEDURE: LOW DOSE CT LUNG [...] use of iterative reconstruction technique). REFERENCE LINK: [facility]-RADS RADIATION DOSE SUMMARY: CTDlvol: 4.02 mGy [...] upper lobe predominant centrilobular emphysema. There is astable pleural-based soft tissue density nodule in the [...] chest CT in 12 months. Reading Location: [place] [address] CC: Dr. 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 Work Phone: 1(574) 670-311009-20-2025 Radiology Diagnostic study note [facility] Imaging Services [address] [place], [place] [address] Abdomen Single View MR#: [id number] Acct: [id number] Name: GALINA LATHAM Rep #: [id number] : 1970 F 54 From: Juice Ta MD PCP: Dr. Lisa Ziegler DO Status: RE G CLI Study:Abdomen Single View Date of Exam: 01/18/25 Exam# [id number] Ordering Dr: Aristeo Ziegler DO PROCEDURE: ABDOMEN SINGLE VIEW 01/18/2025 REASON FOR EXAM: ABDOMINAL PAIN TECHNIQUE: Procedure Code: RADABD Modality: DX Procedure: ABDOMEN SINGLE VIEW COMPARISON: None FINDINGS: The bowel gas pattern is nonobstructive but nonspecific. There is no dilated loop of bowel. Qomj-og-lnkgbixz amount of stool is present in the colon. Lung bases are clear. Osseous structures are normal. Surgical clips are present in the right upper quadrant. SI joints are symmetrical. Degenerative changes of both hips present. RAD/Abdomen Single View IMPRESSION: Ywwgtwqf-tn-ukasd amount of stool in the colon. No bowel obstruction. Degenerative changes of both hips. Reading Location: [facility] CC: Dr. 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05-19-2025 Evaluation note* Diagnosis Onset Date Resolution Status Admit Date Encounter for routine gynecological examination noneactive September 182024 7:45am [facility] Work Phone: 1(311) 477-615005-19-2025 [facility] [address], [address] [place] [address] OFFICE VISIT Date of Service: 09/18/24 MR#: [id number] Acct: [id number] Name: GALINA LATHAM Rep #: [id number] : 1970 Provider: Dr. 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 [place] 11th, 2023 1:42pm Note Date/Time December 11, 2022 1: 42pm [facility] Physical Therapy [facility] [address] [place] [address] / REHABILITATION SERVICES DISCHARGE SUMMARY MR#: [id number] Acct: [id number] Name: GALINA LATHAM Rep #: [id number] : 1970 52 From: Getachew RICOT, OCS, CSCS Referring Dr.: Dr. Lisa Ziegler, DO Status: REG RCR Insurance: [employer] S[employer]F [employer] INSURANCE Patient Information Patient Information: [...] by the physician. Thank you! Getachew Dominguez, DPT, OCS, CSCS Balance/Gait/Functional tests Balance/Special Test Scores Lower Extremity Functional Score: 67 <Electronically signed by Getachew Dominguez DPT, OCS, CSCS> 12/11/22 1342 CC: Dr. Lisa Ziegler, DO ~ EBG Signed [facility] Work Phone: Evaluation noteNo assessment information available [facility] Work Phone: Evaluation note* Diagnosis Onset Date Resolution Status Encounter for routine gynecological examination noneactive [facility] Work Phone: Evaluation note* Diagnosis Onset Date Resolution Status Admit Date Encounter for routine gynecological examination noneactive September 182024 7:45am [place] [facility] Work Phone: Evaluation note* Diagnosis Onset Date Resolution Status Admit Date IBS (irritable bowel syndrome) acute February 06, 2025 7:27am [place] [facility] Work Phone: Instructions* Name Dates Details Patient Instructions Indication:BMI 32.0-32.9,adult Start:19-Jul-2020 Instruction Type:Provider Instructions for Treatment How to Access Health Informa tion Online using Patient Portal and [employer] Indication:BMI 32.0-32.9,adult Start:19-Jul-2020 Instruction Type:Patient Education [...] Treatment DISCONTINUED - Renal functio n Panel (54941) Indication:Hypercholesterolemia Start:01-Feb-2012 Instruction Type:Patient Education DISCONTINUED - Lipid Panel ( 07715) Indication:Hypercholesterolemia Start:01-Feb-2012 Instruction Type:Patient Education Patient Instructions Indication:Hypercholesterolemia Start:01-Feb-2012 Instruction Type:Provider Instructions for Treatment [facility] Work Phone: Instructions* Name Dates Details Patient Instructions Indication:BMI 32.0-32.9,adult Start:19-Jul-2020 Instruction Type:Provider Instructions for Treatment How to Access Health Informa tion Online using Patient Portal and [employer] Apps Indication:BMI 32.0-32.9,adult Start:19-Jul-2020 Instruction Type:Patient Education [...] Treatment DISCONTINUED - Renal functio n Panel (14377) Indication:Hypercholesterolemia Start:01-Feb-2012 Instruction Type:Patient Education DISCONTINUED - Lipid Panel ( 81821) Indication:Hypercholesterolemia Start:01-Feb-2012 Instruction Type:Patient Education Patient Instructions Indication:Hypercholesterolemia Start:01-Feb-2012 Instruction Type:Provider Instructions for Treatment [facility] Work Phone: Instructions* Name Dates Details Patient Instructions Indication:Irritable bowel syndrome Start:03-Apr-2021 Instruction Type:Provider Instructions for Treatment How to Access Health Informa tion Online using Patient Portal and [employer] Apps Indication:Irritable bowel syndrome Start:03-Apr-2021 Instruction Type:Patient Education Patient Instructions Indication:BMI 33.0-33.9,adult Start:02-Dec-2020 Instruction Type:Provider Instructions for Treatment How to Access Health Informa tion Online using Patient Portal and [employer] Apps Indication:BMI 33.0-33.9,adult Start:02-Dec-2020 Instruction Type:Patient Education Patient Instructions Indication:BMI 32.0-32.9,adult Start:19-Jul-2020 Instruction Type:Provider Instructions for Treatment How to Access Health Informa tion Online using Patient Portal and [employer] Apps Indication:BMI 32.0-32.9,adult Start:19-Jul-2020 Instruction Type:Patient Education [...] Treatment DISCONTINUED - Renal functio n Panel ([id number]) Indication:Hypercholesterolemia Start:01-Feb-2012 Instruction Type:Patient Education DISCONTINUED - Lipid Panel ( [id number]) Indication:Hypercholesterolemia Start:01-Feb-2012 Instruction Type:Patient Education Patient Instructions Indication:Hypercholesterolemia Start:01-Feb-2012 Instruction Type:Provider Instructions for Treatment [facility] Work Phone: Instructions* Name Dates Details Patient Instructions Indication:Smoker Start:13-Mar-2022 Instruction Type:Provider Instructions for Treatment How to Access Health Informa tion Online using Patient Portal and [employer] Apps Indication:Smoker Start:13-Mar-2022 Instruction Type:Patient Education Patient Instructions Indication:Irritable bowel syndrome Start:03-Apr-2021 Instruction Type:Provider Instructions for Treatment How to Access Health Informa tion Online using Patient Portal and [employer] Apps Indication:Irritable bowel syndrome Start:03-Apr-2021 Instruction Type:Patient Education Patient Instructions Indication:BMI 33.0-33.9,adult Start:02-Dec-2020 Instruction Type:Provider Instructions for Treatment How to Access Health Informa tion Online using Patient Portal and [employer] Apps Indication:BMI 33.0-33.9,adult Start:02-Dec-2020 Instruction Type:Patient Education Patient Instructions Indication:BMI 32.0-32.9,adult Start:19-Jul-2020 Instruction Type:Provider Instructions for Treatment How to Access Health Informa tion Online using Patient Portal and [employer] Apps Indication:BMI 32.0-32.9,adult Start:19-Jul-2020 Instruction Type:Patient Education [...] Treatment DISCONTINUED - Renal functio n Panel ([id number]) Indication:Hypercholesterolemia Start:01-Feb-2012 Instruction Type:Patient Education DISCONTINUED - Lipid Panel ( [id number]) Indication:Hypercholesterolemia Start:01-Feb-2012 Instruction Type:Patient Education Patient Instructions Indication:Hypercholesterolemia Start:01-Feb-2012 Instruction Type:Provider Instructions for Treatment [facility] Work Phone: Instructions* Name Dates Details Patient Instructions Indication:Smoker Start:13-Mar-2022 Instruction Type:Provider Instructions for Treatment How to Access Health Informa tion Online using Patient Portal and [employer] Apps Indication:Smoker Start:13-Mar-2022 Instruction Type:Patient Education Patient Instructions Indication:Irritable bowel syndrome Start:03-Apr-2021 Instruction Type:Provider Instructions for Treatment How to Access Health Informa tion Online using Patient Portal and [employer] Apps Indication:Irritable bowel syndrome Start:03-Apr-2021 Instruction Type:Patient Education Patient Instructions Indication:BMI 33.0-33.9,adult Start:02-Dec-2020 Instruction Type:Provider Instructions for Treatment How to Access Health Informa tion Online using Patient Portal and [employer] Apps Indication:BMI 33.0-33.9,adult Start:02-Dec-2020 Instruction Type:Patient Education Patient Instructions Indication:BMI 32.0-32.9,adult Start:19-Jul-2020 Instruction Type:Provider Instructions for Treatment How to Access Health Informa tion Online using Patient Portal and [employer] Apps Indication:BMI 32.0-32.9,adult Start:19-Jul-2020 Instruction Type:Patient Education [...] Treatment DISCONTINUED - Renal functio n Panel ([id number]) Indication:Hypercholesterolemia Start:01-Feb-2012 Instruction Type:Patient Education DISCONTINUED - Lipid Panel ( [id number]) Indication:Hypercholesterolemia Start:01-Feb-2012 Instruction Type:Patient Education Patient Instructions Indication:Hypercholesterolemia Start:01-Feb-2012 Instruction Type:Provider Instructions for Treatment [facility] Work Phone: Instructions* Name Dates Details Patient Instructions Indication:Smoker Start:03-Apr-2022 Instruction Type:Provider Instructions for Treatment How to Access Health Informa tion Online using Patient Portal and [employer] Apps Indication:Smoker Start:03-Apr-2022 Instruction Type:Patient Education Patient Instructions Indication:Smoker Start:13-Mar-2022 Instruction Type:Provider Instructions for Treatment How to Access Health Informa tion Online using Patient Portal and [employer] Apps Indication:Smoker Start:13-Mar-2022 Instruction Type:Patient Education Patient Instructions Indication:Irritable bowel syndrome Start:03-Apr-2021 Instruction Type:Provider Instructions for Treatment How to Access Health Informa tion Online using Patient Portal and [employer] Apps Indication:Irritable bowel syndrome Start:03-Apr-2021 Instruction Type:Patient Education Patient Instructions Indication:BMI 33.0-33.9,adult Start:02-Dec-2020 Instruction Type:Provider Instructions for Treatment How to Access Health Informa tion Online using Patient Portal and [employer] Apps Indication:BMI 33.0-33.9,adult Start:02-Dec-2020 Instruction Type:Patient Education Patient Instructions Indication:BMI 32.0-32.9,adult Start:19-Jul-2020 Instruction Type:Provider Instructions for Treatment How to Access Health Informa tion Online using Patient Portal and [employer] Apps Indication:BMI 32.0-32.9,adult Start:19-Jul-2020 Instruction Type:Patient Education [...] Treatment DISCONTINUED - Renal functio n Panel ([id number]) Indication:Hypercholesterolemia Start:01-Feb-2012 Instruction Type:Patient Education DISCONTINUED - Lipid Panel ( [id number]) Indication:Hypercholesterolemia Start:01-Feb-2012 Instruction Type:Patient Education Patient Instructions Indication:Hypercholesterolemia Start:01-Feb-2012 Instruction Type:Provider Instructions for Treatment [facility] Work Phone: Instructions* Name Dates Details How to Access Health Informa tion Online using Patient Portal and R[employer] Apps Indication:Smoker Start:11-Sep-2022 Instruction Type:Patient Education Patient Instructions Indication:Smoker Start:11-Sep-2022 Instruction Type:Provider Instructions for Treatment Patient Instructions Indication:Smoker Start:03-Apr-2022 Instruction Type:Provider Instructions for Treatment How to Access Health Informa tion Online using Patient Portal and R[employer] Apps Indication:Smoker Start:03-Apr-2022 Instruction Type:Patient Education Patient Instructions Indication:Smoker Start:13-Mar-2022 Instruction Type:Provider Instructions for Treatment How to Access Health Informa tion Online using Patient Portal and Rounds Apps Indication:Smoker Start:13-Mar-2022 Instruction Type:Patient Education Patient Instructions Indication:Irritable bowel syndrome Start:03-Apr-2021 Instruction Type:Provider Instructions for Treatment How to Access Health Informa tion Online using Patient Portal and Rounds Apps Indication:Irritable bowel syndrome Start:03-Apr-2021 Instruction Type:Patient Education Patient Instructions Indication:BMI 33.0-33.9,adult Start:02-Dec-2020 Instruction Type:Provider Instructions for Treatment How to Access Health Informa tion Online using Patient Portal and R[employer] Apps Indication:BMI 33.0-33.9,adult Start:02-Dec-2020 Instruction Type:Patient Education Patient Instructions Indication:BMI 32.0-32.9,adult Start:19-Jul-2020 Instruction Type:Provider Instructions for Treatment How to Access Health Informa tion Online using Patient Portal and R[employer] Apps Indication:BMI 32.0-32.9,adult Start:19-Jul-2020 Instruction Type:Patient Education [...] Treatment DISCONTINUED - Renal functio n Panel ([id number]) Indication:Hypercholesterolemia Start:01-Feb-2012 Instruction Type:Patient Education DISCONTINUED - Lipid Panel ( [id number]) Indication:Hypercholesterolemia Start:01-Feb-2012 Instruction Type:Patient Education Patient Instructions Indication:Hypercholesterolemia Start:01-Feb-2012 Instruction Type:Provider Instructions for Treatment [facility] Work Phone: Instructions* Name Dates Details Patient Instructions Indication:Tobacco use Start:14-Jan-2023 Instruction Type:Provider Instructions for Treatment How to Access Health Informa tion Online using Patient Portal and [employer] Apps Indication:Tobacco use Start:14-Jan-2023 Instruction Type:Patient Education How to Access Health Informa tion Online using Patient Portal and [employer] Apps Indication:Smoker Start:11-Sep-2022 Instruction Type:Patient Education Patient Instructions Indication:Smoker Start:11-Sep-2022 Instruction Type:Provider Instructions for Treatment Patient Instructions Indication:Smoker Start:03-Apr-2022 Instruction Type:Provider Instructions for Treatment How to Access Health Informa tion Online using Patient Portal and [employer] Apps Indication:Smoker Start:03-Apr-2022 Instruction Type:Patient Education Patient Instructions Indication:Smoker Start:13-Mar-2022 Instruction Type:Provider Instructions for Treatment How to Access Health Informa tion Online using Patient Portal and [employer] Apps Indication:Smoker Start:13-Mar-2022 Instruction Type:Patient Education Patient Instructions Indication:Irritable bowel syndrome Start:03-Apr-2021 Instruction Type:Provider Instructions for Treatment How to Access Health Informa tion Online using Patient Portal and [employer] Apps Indication:Irritable bowel syndrome Start:03-Apr-2021 Instruction Type:Patient Education Patient Instructions Indication:BMI 33.0-33.9,adult Start:02-Dec-2020 Instruction Type:Provider Instructions for Treatment How to Access Health Informa tion Online using Patient Portal and [employer] Apps Indication:BMI 33.0-33.9,adult Start:02-Dec-2020 Instruction Type:Patient Education Patient Instructions Indication:BMI 32.0-32.9,adult Start:19-Jul-2020 Instruction Type:Provider Instructions for Treatment How to Access Health Informa tion Online using Patient Portal and [employer] Apps Indication:BMI 32.0-32.9,adult Start:19-Jul-2020 Instruction Type:Patient Education [...] Treatment DISCONTINUED - Renal functio n Panel ([id number]) Indication:Hypercholesterolemia Start:01-Feb-2012 Instruction Type:Patient Education DISCONTINUED - Lipid Panel ( [id number]) Indication:Hypercholesterolemia Start:01-Feb-2012 Instruction Type:Patient Education Patient Instructions Indication:Hypercholesterolemia Start:01-Feb-2012 Instruction Type:Provider Instructions for Treatment [facility] Work Phone: Instructions* Name Dates Details Patient Instructions Indication:Tobacco use Start:14-Jan-2023 Instruction Type:Provider Instructions for Treatment How to Access Health Informa tion Online using Patient Portal and [employer] Apps Indication:Tobacco use Start:14-Jan-2023 Instruction Type:Patient Education How to Access Health Informa tion Online using Patient Portal and [employer] Apps Indication:Smoker Start:11-Sep-2022 Instruction Type:Patient Education Patient Instructions Indication:Smoker Start:11-Sep-2022 Instruction Type:Provider Instructions for Treatment Patient Instructions Indication:Smoker Start:03-Apr-2022 Instruction Type:Provider Instructions for Treatment How to Access Health Informa tion Online using Patient Portal and [employer] Apps Indication:Smoker Start:03-Apr-2022 Instruction Type:Patient Education Patient Instructions Indication:Smoker Start:13-Mar-2022 Instruction Type:Provider Instructions for Treatment How to Access Health Informa tion Online using Patient Portal and [employer] Apps Indication:Smoker Start:13-Mar-2022 Instruction Type:Patient Education Patient Instructions Indication:Irritable bowel syndrome Start:03-Apr-2021 Instruction Type:Provider Instructions for Treatment How to Access Health Informa tion Online using Patient Portal and [employer] Apps Indication:Irritable bowel syndrome Start:03-Apr-2021 Instruction Type:Patient Education Patient Instructions Indication:BMI 33.0-33.9,adult Start:02-Dec-2020 Instruction Type:Provider Instructions for Treatment How to Access Health Informa tion Online using Patient Portal and [employer] Apps Indication:BMI 33.0-33.9,adult Start:02-Dec-2020 Instruction Type:Patient Education Patient Instructions Indication:BMI 32.0-32.9,adult Start:19-Jul-2020 Instruction Type:Provider Instructions for Treatment How to Access Health Informa tion Online using Patient Portal and [employer] Apps Indication:BMI 32.0-32.9,adult Start:19-Jul-2020 Instruction Type:Patient Education [...] Treatment DISCONTINUED - Renal functio n Panel ([id number]) Indication:Hypercholesterolemia Start:01-Feb-2012 Instruction Type:Patient Education DISCONTINUED - Lipid Panel ( [id number]) Indication:Hypercholesterolemia Start:01-Feb-2012 Instruction Type:Patient Education Patient Instructions Indication:Hypercholesterolemia Start:01-Feb-2012 Instruction Type:Provider Instructions for Treatment [facility] Work Phone: Instructions* Name Dates Details Patient Instructions Indication:BMI 35.0-35.9,adult Start:20-Jan-2023 Instruction Type:Provider Instructions for Treatment How to Access Health Informa tion Online using Patient Portal and [employer] Apps Indication:BMI 35.0-35.9,adult Start:20-Jan-2023 Instruction Type:Patient Education Patient Instructions Indication:Tobacco use Start:14-Jan-2023 Instruction Type:Provider Instructions for Treatment How to Access Health Informa tion Online using Patient Portal and [employer] Apps Indication:Tobacco use Start:14-Jan-2023 Instruction Type:Patient Education How to Access Health Informa tion Online using Patient Portal and [employer] Apps Indication:Smoker Start:11-Sep-2022 Instruction Type:Patient Education Patient Instructions Indication:Smoker Start:11-Sep-2022 Instruction Type:Provider Instructions for Treatment Patient Instructions Indication:Smoker Start:03-Apr-2022 Instruction Type:Provider Instructions for Treatment How to Access Health Informa tion Online using Patient Portal and [employer] Apps Indication:Smoker Start:03-Apr-2022 Instruction Type:Patient Education Patient Instructions Indication:Smoker Start:13-Mar-2022 Instruction Type:Provider Instructions for Treatment How to Access Health Informa tion Online using Patient Portal and [employer] Apps Indication:Smoker Start:13-Mar-2022 Instruction Type:Patient Education Patient Instructions Indication:Irritable bowel syndrome Start:03-Apr-2021 Instruction Type:Provider Instructions for Treatment How to Access Health Informa tion Online using Patient Portal and [employer] Apps Indication:Irritable bowel syndrome Start:03-Apr-2021 Instruction Type:Patient Education Patient Instructions Indication:BMI 33.0-33.9,adult Start:02-Dec-2020 Instruction Type:Provider Instructions for Treatment How to Access Health Informa tion Online using Patient Portal and [employer] Apps Indication:BMI 33.0-33.9,adult Start:02-Dec-2020 Instruction Type:Patient Education Patient Instructions Indication:BMI 32.0-32.9,adult Start:19-Jul-2020 Instruction Type:Provider Instructions for Treatment How to Access Health Informa tion Online using Patient Portal and [employer] Apps Indication:BMI 32.0-32.9,adult Start:19-Jul-2020 Instruction Type:Patient Education [...] Treatment DISCONTINUED - Renal functio n Panel ([id number]) Indication:Hypercholesterolemia Start:01-Feb-2012 Instruction Type:Patient Education DISCONTINUED - Lipid Panel ( [id number]) Indication:Hypercholesterolemia Start:01-Feb-2012 Instruction Type:Patient Education Patient Instructions Indication:Hypercholesterolemia Start:01-Feb-2012 Instruction Type:Provider Instructions for Treatment [facility] Work Phone: progress note Author Katey Elizabeth [facility] Note Date/Time September 18, 2024 8:32a [facility] [address], [address] [place] [address] OFFICE VISIT Date of Service: 09/18/24 MR#: [id number] Acct: [id number] Name: GALINA LATHAM Rep #: [id number] : 1970 Provider: Dr. 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 Is patient in pain?: No [...] Cosigner Signature: Date (if applicable) CC: ~ [facility] Work Phone: Reason for referral (narrative)No reason for referral information [facility] Work Phone: Family History No [...] Treatment DISCONTINUED - Renal functio n Panel ([id number]) Indication:Hypercholesterolemia Start:01-Feb-2012 Instruction Type:Patient Education DISCONTINUED - Lipid Panel ( [id number]) Indication:Hypercholesterolemia Start:01-Feb-2012 Instruction Type:Patient Education Patient Instructions [...] Treatment DISCONTINUED - Renal functio n Panel ([id number]) Indication:Hypercholesterolemia Start:01-Feb-2012 Instruction Type:Patient Education DISCONTINUED - Lipid Panel ( 23270) Indication:Hypercholesterolemia Start:01-Feb-2012 Instruction Type:Patient Education Patient Instructions [...] Treatment DISCONTINUED - Renal functio n Panel ([id number]) Indication:Hypercholesterolemia Start:01-Feb-2012 Instruction Type:Patient Education DISCONTINUED - Lipid Panel ( [id number]) Indication:Hypercholesterolemia Start:01-Feb-2012 Instruction Type:Patient Education Patient Instructions [...] Treatment DISCONTINUED - Renal functio n Panel ([id number]) Indication:Hypercholesterolemia Start:01-Feb-2012 Instruction Type:Patient Education DISCONTINUED - Lipid Panel ( [id number]) Indication:Hypercholesterolemia Start:01-Feb-2012 Instruction Type:Patient Education Patient Instructions [...] Treatment DISCONTINUED - Renal functio n Panel ([id number]) Indication:Hypercholesterolemia Start:01-Feb-2012 Instruction Type:Patient Education DISCONTINUED - Lipid Panel ( [id number]) Indication:Hypercholesterolemia Start:01-Feb-2012 Instruction Type:Patient Education Patient Instructions [...] Treatment DISCONTINUED - Renal functio n Panel ([id number]) Indication:Hypercholesterolemia Start:01-Feb-2012 Instruction Type:Patient Education DISCONTINUED - Lipid Panel ( [id number]) Indication:Hypercholesterolemia Start:01-Feb-2012 Instruction Type:Patient Education Patient Instructions Indication:Hypercholesterolemia Start:01-Feb-2012 Instruction Type:Provider Instructions for Treatment Advance Directives No Advanced Directives Records Found Name Dates Details Immunization Registry [place] - Effective on 12/02/2020. Expiration date unspecified Effective:02-Dec-2020 Advance Directive Response Recorded Date/ Time Living Will No June 16 7:28am Power of Engineering Administrator No June 16, 2021 7:28am Name Dates Details Immunization Registry [place] - Effective on 12/02/2020. Expiration date unspecified Effective:02-Dec-2020 Name Dates Details Immunization Registry [place] - Effective on 12/02/2020. Expiration date unspecified Effective:02-Dec-2020 Name Dates Details Immunization Registry [place] - Effective on 12/02/2020. Expiration date unspecified Effective:02-Dec-2020 Name Dates Details Immunization Registry [place] - Effective on 12/02/2020. Expiration date unspecified Effective:02-Dec-2020 Name Dates Details Immunization Registry [place] - Effective on 12/02/2020. Expiration date unspecified Effective:02-Dec-2020 Name Dates Details Immunization Registry [place] - Effective on 12/02/2020. Expiration date unspecified Effective:02-Dec-2020 Name Dates Details Immunization Registry [place] - Effective on 12/02/2020. Expiration date unspecified Effective:02-Dec-2020 Advance Directive Response Recorded Date/ Time Living Will No June 16 6:28am Power of Engineering Administrator No June 16, 2021 6:28am Advance Directive Response Recorded Date/ Time Living Will No June 16 7:28am Do you have a Healthcare Power of Engineering Administrator? 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) September 18, 2024 7:45a m Reason for Visit Admit Date Encounter for routine gynecological exam ination September 18, 2024 7:45am Chief Complaint Admit Date SCREENING September 18, 2024 7:19a m 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 Lisa Ziegler , DO Family Provider Active Dr. Lisa Ziegler , DO Primary Care Provider Active Team Status: Inactive Member Role Status Dates Dr. Lisa Zieglre , DO Primary Care Provider, Referr ing Provider Active Dr. Katey Elizabeth MD Attending Provider Active Team Status: Inactive Member Role Status Dates DrStephanie Ziegler DO Primary Care Provider Active [place] HYDRAULIC JACK OPERATOR, HYDRAULIC JACK OPERATOR-C Attending Provider, Referring Provider Active Team Status: [...] January 18, 2025 Dr. Lisa Ziegler DO Referring Provider Active Start: January 18, 2025 End: January 18, 2025 JHON ZAMBRNAO Nurse Practitioner Active Start: 2024 End: January 18, 2025 Team Status: Active [...] February 06, 2025 End: February 06, 2025 Team Status: Inactive Member Role/Relationship Status Dates Dr. Lisa Ziegler DO Primary care physician Active Start: January 29, 2025 End: January 29, 2025 Dr. Lisa Ziegler DO Attending physician Active Start: January 29, 2025 End: January 29, 2025 Dr. Lisa Ziegler DO Referring Provider Active Start: January 29, 2025 End: January 29, 2025 Team Status: Active Member Role/Relationship Status Dates Dr. Lisa Ziegler DO Primary care physician Active Start: February 06, 2025 Dr. Aly Gotti DO Attending physician Active Start: February 06, 2025 Dr. Aly Gotti DO Referring Provider Active Start: February 06, 2025 Team Status: Inactive Member Role/Relationship Status Dates Dr. Lisa Ziegler DO Primary care physician Active Start: February 21, 2025 End: February 21, 2025 Dr. Lisa Ziegler DO Attending physician Active Start: February 21, 2025 End: February 21, 2025 Dr. Lisa Ziegler DO Referring Provider Active Start: February 21, 2025 End: February 21, 2025 Team Status: Active Member Role/Relationship Status Dates Dr. Lisa Ziegler DO Primary care physician Active Start: February 23, 2025 Dr. Aly Gotti DO Attending physician Active Start: February 23, 2025 Dr. Aly Gotti DO Referring Provider Active Start: February 23, 2025 INFORMATION SOURCE (unrecogn ized section and content) DATE CREATED AUTHOR 09/12/2022 [facility] DATE CREATED AUTHOR AUTHOR'S ORGANIZ ATION 03/11/2025 [facility] FOR RECORDS PERTAINING TO PATIENTS WHO ARE [...] BE BASED ON THE PRIMARY CLINICAL RECORDS. [employer] [facility]. provides no warranty or guarantee of the accuracy or completeness of information in this document.
--- NOTE | 2025-04-19 07:35 | RAD_ITS ---
PROCEDURE: LEFT HAND MIN 3 VIEWS 04/19/2025 REASON FOR EXAM: LEFT THUMB PAIN/STIFFNESS TECHNIQUE: Procedure Code: QUETA Modality: DX Procedure: HAND MIN 3 VIEWS COMPARISON: None. FINDINGS: No acute fracture or dislocation/subluxation. Alignment is anatomic. Joint spaces are well preserved without evidence for erosion or significant arthrosis. No aggressive osseous lytic or blastic lesion. No soft tissue swelling or unusual mineralization appreciated. RAD/Hand Min 3 Views IMPRESSION: No acute fracture, dislocation, or significant arthritic changes. Reading Location: [id number]
--- NOTE | 2025-04-19 07:47 | RAD_ITS ---
PROCEDURE: LEFT KNEE 4 OR MORE VIEWS 04/19/2025 REASON FOR EXAM: PAIN TECHNIQUE: Procedure Code: RADKN Modality: DX Procedure: KNEE 4 OR MORE VIEWS COMPARISON: None. FINDINGS: No acute fracture or dislocation. Joint spaces are well preserved although there is chondrocalcinosis in the medial and lateral joint spaces. No joint effusion or soft tissue swelling appreciated. RAD/Knee 4 or More Views IMPRESSION: No acute fracture or dislocation. Preserved joint spaces although there is medial and lateral chondrocalcinosis. Reading Location: [id number]
== END | disposition home or self-care (01) ==
LOC: RAD 07:18
PROVIDERS: PCP Nurse Practitioner Family; Referring Provider Nurse Practitioner Family; Visit Provider Nurse Practitioner Family
DX: M65.312 Trigger thumb, left thumb (principal); M25.561 Pain in right knee; M25.562 Pain in left knee
CPT/HCPCS: 73030; 73130; 73564